=== PATIENT | female | born 2000 | race Caucasian/White ===

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

== ENCOUNTER 2021-02-04 13:45 | Emergency (ER) | payer MEDICAID, SELFPAY ==
[2021-02-04 13:46] VITALS: BP 131/87; PULSE 93; RESP 18; TEMP 36.6; O2SAT 100; BMI 26.4
--- NOTE | 2021-02-04 14:22 | EKG12_ITS ---
Test Reason : CP Blood Pressure : / mmHG Vent. Rate : 095 BPM Atrial Rate : 095 BPM P-R Int : 136 ms QRS Dur : 082 ms QT Int : 354 ms P-R-T Axes : 056 068 015 degrees QTc Int : 444 ms Normal sinus rhythm Nonspecific T wave abnormality Abnormal ECG Confirmed by ASHLEIGH JO, AGUSTÍN ([id number]), editor house organ GERARDO JEAN ([id number]) on 02/07/2021 10:06:16 AM Referred By: SILVIO/LUCAS Confirmed By:AGUSTÍN SOTELO MD
--- NOTE | 2021-02-04 14:35 | EDS_ITS ---
HPI History of Present Illness Chief Complaint: Chest Pain Informant: patient Narrative Narrative: 20-year-old female presents to the emergency room with palpitations and chest pain. She tells me that this morning she started feeling her heart racing she put a pulse oximeter on her finger and she states her heart rate was in the 130s. She feels nauseous and short of breath. She notes of pain in her mid sternum with deep breathing. She notes her heart rate has come down now. She notes that she was recently hospitalized at a psychiatric hospital in [place]. She had new medications prescribed she has subsequently stopped the Lamictal and Abilify. She notes that she smokes 1 to 2 cigarettes a day. She denies vomiting or diarrhea. No recent infections. No recent surgeries. [facility] Medical History (Updated 02/04/21 @ 16:[address] Giovani Hernandez DO) Anxiety Home Medications buspirone 10 mg PO DAILY 07/29/20 [History Last Taken Unknown] cariprazine 3 mg PO DAILY 09/27/20 [History Last Taken Unknown] mirtazapine 30 mg PO QHS 09/27/20 [History Last Taken Unknown] Allergy/AdvReac Type Severity Reaction Status Date / Time No Known Allergies Allergy Verified 02/04/21 13:47 no surgical history Social History (Updated 02/04/21 @ 14:[address] Giovani Hernandez DO) Smoking Status: Current every day smoker tobacco type: e-cigarettes substance use type: does not use ROS ROS ED Constitutional Constitutional ED: Denies chills or weight loss Eyes Eyes: Denies change in vision or diplopia ENT ENT ED: Denies ear pain, rhinorrhea or sore throat Cardiovascular Cardiovascular: Reports chest pain, palpitations and racing heartbeat; Denies orthopnea Respiratory/Chest Respiratory/Chest: Reports dyspnea; Denies cough or orthopnea Gastrointestinal Gastrointestinal: Reports nausea; Denies abdominal pain, diarrhea or vomiting Genitourinary Genitourinary ED: Denies dysuria, hematuria or urinary frequency Musculoskeletal Musculoskeletal: Denies arthralgias or myalgias Integumentary Denies abscess or rash Neurologic Neurologic: Denies headache(s) or weakness Psychiatric Psychiatric: Denies anxiety, depression, suicidal ideation or suicidal thoughts Endocrine Endocrinology: Denies polydipsia, polyphagia or polyuria Allergic/Immunologic Allergic/Immunologic ED: Denies mouth swelling, tongue swelling or urticaria EXAM Physical Exam Const Vital Signs: 02/04/21 13:46 02/04/21 15:01 02/04/21 15:18 Temperature 98 F Temperature Source Temporal Pulse Rate 93 77 Pulse Rate [Standing] Respiratory Rate 18 15 Respiratory Effort Normal Non-Labored Blood Pressure 131/87 H 119/72 Blood Pressure [Standing] Blood Pressure Mean 101 87 Blood Pressure Mean [Standing] Pulse Ox 100 100 Oxygen Delivery Method Room Air Room Air 02/04/21 15:46 Temperature Temperature Source Pulse Rate Pulse Rate [Standing] 88 Respiratory Rate Respiratory Effort Blood Pressure Blood Pressure [Standing] 121/72 H Blood Pressure Mean Blood Pressure Mean [Standing] 88 Pulse Ox Oxygen Delivery Method Positive well nourished and well developed General Appearance ED: well developed HEENT Reports normocephalic, head/scalp atraumatic and moist mucous membranes Eyes PERRL and EOMs intact bilaterally Neck no lymphadenopathy, supple and no JVD Resp normal respiratory effort and clear to auscultation bilaterally Cardio regular rate, regular rhythm and no murmurs GI normal to inspection, nondistended, normoactive bowel sounds and non-tender Palpation: soft Back/Spine no CVA tenderness and normal ROM Extremity normal to inspection General Extremety ED: Negative for edema General Extremity: Negative for edema Neuro oriented x3 and CN's II-XII intact bilaterally Sensorium / Orientation: alert Motor Exam: strength 5/5 throughout Psych mental status grossly normal Mood & Affect: Negative for depressed or tearful Skin no rashes or lesions noted and no wounds Heart Score History: Slightly/Non-Suspicious ECG: Normal Risk Factors: 1 or 2 Risk Factors Troponin: </= Normal Limit Score: 1 MDM MDM MDM Narrative Medical decision making narrative: My interpretation of the chest x-ray is no acute process. Basic blood work including D-dimer negative. Patient's had no events on the monitor. She is not orthostatic. She tells me that every time she stands up her heart rate goes to the 120s and 130s however when she stood up. Her blood pressure was 121/72 and her heart rate of 88. The patient at this point will be discharged home. I suggest she follow-up with primary care doctor she may require Holter monitor if symptoms persist. Lab Data Attestation: I reviewed the patient's lab results. Labs: Laboratory Results - last 24 hr 02/04/21 02/04/21 02/04/21 14:57 14:57 14:57 WBC 8.0 RBC 4.25 Hgb 13.6 Hct 40.4 MCV 95.1 MCH 32.0 MCHC 33.7 RDW Std Deviation 42.5 RDW Coeff of Reggie 12.2 Plt Count 238 MPV 10.8 Immature Gran % (Auto) 0.200 Neut % (Auto) 69.3 Lymph % (Auto) 21.5 [place] % (Auto) 8.0 Eos % (Auto) 0.6 Baso % (Auto) 0.4 Absolute Neuts (auto) 5.6 Absolute Lymphs (auto) 1.73 Nucleated RBC % 0 D-Dimer Quant (PE/DVT) 0.33 Sodium 140 Potassium 3.6 Chloride 110 H Carbon Dioxide 24.0 Anion Gap 6 BUN 7 Creatinine 0.67 Estim Creat Clear Calc 101.91 Est GFR (MDRD) Af Amer 146 Est GFR (MDRD) Non-Af 120 BUN/Creatinine Ratio 10.4 Glucose 88 Calcium 8.9 Troponin I High Sens < 3.0 L Radiography Diagnostic Testing: Radiology Impression Chest X-Ray 02/04/21 15:30 IMPRESSION: Normal x-ray examination of the chest. Electronically Signed: Sj Holland MD at 15:47 EDT Tel , Service support , EKG Initial EKG: Attestation: I personally reviewed and interpreted this EKG as follows: Comments: EKG demonstrates a normal sinus rhythm with ventricular rate of 95. No concerning features of ACS or ectopy noted. Prior: Changed Discharge Plan Triage Chief Complaint: Chest Pain ED Provider: Giovani Hernandez Dx/Rx/DC Orders Clinical Impression: Heart palpitations, Chest pain Instructions: ED Palpitations Prescriptions: No Action buspirone 5 MG tablet 10 mg PO DAILY RF: 0 mirtazapine 30 MG tablet 30 mg PO QHS RF: 0 cariprazine 3 MG capsule 3 mg PO DAILY RF: 0 Primary Care Provider: Wu Herrera Referrals: Wu Herrera MD [Primary Care Provider] - As soon as possible Disposition Disposition: Home, Self Care
[2021-02-04 15:01] VITALS: BP 119/72; PULSE 77; RESP 15; O2SAT 100
[2021-02-04 15:08] LABS: Absolute Lymphocyte Count 1.73 X10^3/uL (0.83-4.51); Absolute Neutrophil Count 5.6 X10^3/uL (2.0-7.7); Basophil# 0.03 X10^3/uL; Basophil% 0.4 % (0-1); Eosinophil# 0.05 X10^3/uL; Eosinophils% 0.6 % (0-5); Hematocrit 40.4 % (37-47); Hemoglobin 13.6 g/dL (12.0-15.0); Lymphocyte # 1.73 X10^3/ul (0.83-4.51); Lymphocyte % 21.5 % (19-41); Mean Corp Hgb Conc 33.7 g/dL (32-36); Mean Corpuscular Volume 95.1 fL (81-99); Mean Platelet Vol. 10.8 fl (6.2-12.0); Monocyte# 0.64 X10^3/uL; NRBC Flagged by Analyzer 0 % (0-5); Neutrophil # 5.56 X10^3/uL (2.7-7.7); Neutrophil % 69.3 % (47-70); Platelet Count 238 K/mm3 (150-450); RBC Distribution Width CV 12.2 % (11.6-14.6); RBC Distribution Width SD 42.5 fl (35.1-43.9); Red Blood Count 4.25 M/mm3 (4.2-5.4)
[2021-02-04 15:18] LABS: D-Dimer Quantitative (DVT/PE) 0.33 FEU/ug/m (0.27-0.49)
--- NOTE | 2021-02-04 15:30 | RAD_ITS ---
STUDY: X-RAY CHEST REASON FOR EXAM: Female, 20 years old. chest pain TECHNIQUE: Single AP portable view of the chest. COMPARISON: 09/29/2020 FINDINGS: The lungs are clear and expanded. There is no demonstrated pleural abnormality. Normal size heart. Normal mediastinum and wesley. Normal visualized pulmonary arteries. Normal visualized aortic arch and descending thoracic aorta. Normal visualized thoracic spine. Normal visualized ribs, clavicles, and shoulders. There is no demonstrated abnormality of the visualized soft tissue structures of the upper abdomen. RAD/Chest 1 View (Portable) IMPRESSION: Normal x-ray examination of the chest. Electronically Signed: Sj Holland MD at 15:47 EDT Tel , Service support ,
[2021-02-04 15:31] LABS: Anion Gap 6 (5-15); BUN 7 mg/dL (7-18); BUN/Creat Ratio 10.4 RATIO (10-20); Calcium,Total 8.9 mg/dL (8.5-10.1); Chloride 110 mmol/L (98-107); Creatinine, Serum 0.67 mg/dL (0.55-1.02); EST Glomerular Filtration Rate 120 mL/min (>60); Est Glom Filt Rate - Afr Amer 146 mL/min (>60); Estimated Creatinine Clearance 101.91 ml/min; Glucose 88 mg/dL (74-106); Potassium 3.6 mmol/L (3.5-5.1); Sodium Level 140 mmol/L (136-145); Troponin-I HS < 3.0 pg/mL (3.0-53.7)
[2021-02-04 15:46] VITALS: BP 121/72; PULSE 88
[2021-02-04 16:28] VITALS: BP 121/72; PULSE 83; RESP 17; O2SAT 99
== END 2021-02-04 16:29 | disposition home or self-care (01) ==
PROVIDERS: Emergency Provider Emergency Medicine; PCP Family Medicine
DX: R00.2 Palpitations (principal); R07.9 Chest pain, unspecified; R11.0 Nausea; R06.02 Shortness of breath; F17.210 Nicotine dependence, cigarettes, uncomplicated; F41.9 Anxiety disorder, unspecified; Z79.899 Other long term (current) drug therapy
CPT/HCPCS: 71045; 80048; 84484; 85025; 85379; 93005; 99285; A4216

== ENCOUNTER 2021-04-04 15:27 | Emergency (ER) | payer MEDICAID, SELFPAY ==
[2021-04-04 15:28] VITALS: BP 115/68; PULSE 89; RESP 14; TEMP 36.4; O2SAT 98; BMI 26.8
--- NOTE | 2021-04-04 16:11 | EKG12_ITS ---
Test Reason : PALP Blood Pressure : / mmHG Vent. Rate : 082 BPM Atrial Rate : 082 BPM P-R Int : 132 ms QRS Dur : 082 ms QT Int : 384 ms P-R-T Axes : 040 056 025 degrees QTc Int : 448 ms Normal sinus rhythm with sinus arrhythmia Normal ECG When compared with ECG of 04-FEB-2021 13:52, No significant change was found Confirmed by JEN JO, JAYASHREE ([id number]), editor house organ GERARDO JEAN ([id number]) on 04/11/2021 8:33:31 AM Referred By: GUNNER Confirmed By:JAYASHREE LI MD
--- NOTE | 2021-04-04 17:11 | EX.ED.DYSGE1 ---
HPI History of Present Illness Chief Complaint: Palpitations Narrative Narrative: Patient is a 20-year-old female who states that she was sleeping today when she awoke and felt her heart was racing. She states she went and saw the nurse and was told her heart rate was approximately 130. The patient states she has been having bouts of vomiting but otherwise denies any excessive stimulant use or illicit drug use or history of cardiac dysrhythmia. She states that with the elevated heart rate she was concerned that her electrolytes were abnormal and therefore comes in for evaluation [facility] Medical History Anxiety Home Medications fluoxetine 20 mg DAILY 04/04/21 [History Last Taken Unknown] hydroxyzine HCl 25 mg PRN PRN 04/04/21 [History Last Taken Unknown] Allergy/AdvReac Type Severity Reaction Status Date / Time No Known Allergies Allergy Verified 04/04/21 15:28 Social History Smoking Status: Current every day smoker tobacco type: cigarettes and e-cigarettes substance use type: does not use ROS ROS ED Constitutional Constitutional ED: Denies chills or fever(s) ENT ENT ED: Denies sore throat Cardiovascular Cardiovascular: Reports palpitations and racing heartbeat; Denies chest pain Respiratory/Chest Respiratory/Chest: Denies cough or dyspnea Gastrointestinal Gastrointestinal: Reports nausea and vomiting; Denies abdominal pain or diarrhea Genitourinary Genitourinary ED: Denies dysuria Musculoskeletal Musculoskeletal: Denies myalgias Integumentary Denies rash Neurologic Neurologic: Denies headache(s) Hematologic/Lymphatic Hematologic/Lymphatic: Denies easy bleeding or easy bruising EXAM Physical Exam Const Vital Signs: 04/04/21 15:28 04/04/21 16:07 04/04/21 18:06 Temperature 97.5 F L Temperature Source Temporal Pulse Rate 89 63 Respiratory Rate 14 14 Respiratory Effort Normal Non-Labored Blood Pressure 115/68 101/64 Blood Pressure Mean 83 76 Pulse Ox 98 97 Oxygen Delivery Method Room Air Positive well nourished and well developed General Appearance ED: well developed HEENT Reports moist mucous membranes Eyes PERRL and EOMs intact bilaterally Neck supple Neck Narrative: Thyroid is without nodule or goiter Chest Wall palpation of chest normal Resp normal respiratory effort and clear to auscultation bilaterally Cardio regular rhythm Rate: other Other Details: Tachycardic rate with regular rhythm radial pulses are plus 2 out of 4 bilaterally GI normal to inspection, nondistended, normoactive bowel sounds, non-tender and non-distended Auscultation: normoactive bowel sounds Palpation: soft Extremity normal to inspection Extremity Narrative: No asymmetric edema no pitting edema negative Homans' sign bilaterally Neuro oriented x3 and CN's II-XII intact bilaterally Sensorium / Orientation: alert Motor Exam: strength 5/5 throughout Psych mental status grossly normal Skin no rashes or lesions noted MDM MDM MDM Narrative Medical decision making narrative: Patient presented to the ER in no acute distress. Her heart rate had spontaneous return to a normal value. There is no ectopy noted on evaluation. However with report of tachycardia I did elect to place her on a bridges and buildings supervisor and perform a basic work-up. EKG was sinus rhythm labs revealed no clinically significant findings and the patient had no abnormal heart rhythm while on the bridges and buildings supervisor. Therefore at this time with spontaneous resolution of symptoms and overall negative work-up she is safe for discharge Lab Data Attestation: I reviewed the patient's lab results. Labs: Laboratory Results - last 24 hr 04/04/21 04/04/21 04/04/21 17:28 17:28 17:35 WBC 7.9 RBC 4.86 Hgb 15.3 H Hct 46.5 MCV 95.7 MCH 31.5 MCHC 32.9 RDW Std Deviation 42.8 RDW Coeff of Reggie 12.2 Plt Count 260 MPV 9.9 Immature Gran % (Auto) 0.300 Neut % (Auto) 63.4 Lymph % (Auto) 25.4 [place] % (Auto) 9.4 Eos % (Auto) 1.1 Baso % (Auto) 0.4 Absolute Neuts (auto) 5.0 Absolute Lymphs (auto) 2.00 Nucleated RBC % 0 Sodium 138 Potassium 3.6 Chloride 107 Carbon Dioxide 27.0 Anion Gap 4 L BUN 8 Creatinine 0.66 Estim Creat Clear Calc 103.46 Est GFR (MDRD) Af Amer 147 Est GFR (MDRD) Non-Af 122 BUN/Creatinine Ratio 12.1 Glucose 78 Calcium 9.6 Magnesium 2.5 TSH 1.14 Urine Test Negative Discharge Plan Triage Chief Complaint: Palpitations ED Provider: Gustavo Rosado Dx/Rx/DC Orders Clinical Impression: Heart palpitations Instructions: ED Palpitations Prescriptions: No Action hydroxyzine HCl 25 mg tablet 25 mg PRN PRN (Reason: Anxiety) RF: 0 fluoxetine 20 mg capsule 20 mg DAILY RF: 0 Primary Care Provider: Wu Herrera Referrals: Wu Herrera MD [Primary Care Provider] - Disposition Disposition: Home, Self Care
[2021-04-04 17:40] LABS: Basophil# 0.03 X10^3/uL; Basophil% 0.4 % (0-1); Eosinophil# 0.09 X10^3/uL; Eosinophils% 1.1 % (0-5); Hematocrit 46.5 % (37-47); Hemoglobin 15.3 g/dL (12.0-15.0); Lymphocyte % 25.4 % (19-41); Mean Corp Hgb Conc 32.9 g/dL (32-36); Mean Corpuscular Hgb 31.5 pg (27.0-32.0); Mean Corpuscular Volume 95.7 fL (81-99); Mean Platelet Vol. 9.9 fl (6.2-12.0); Monocyte# 0.74 X10^3/uL; Monocyte% 9.4 % (0-10); NRBC Flagged by Analyzer 0 % (0-5); Neutrophil # 4.98 X10^3/uL (2.7-7.7); Neutrophil % 63.4 % (47-70); Platelet Count 260 K/mm3 (150-450); RBC Distribution Width CV 12.2 % (11.6-14.6); RBC Distribution Width SD 42.8 fl (35.1-43.9); Red Blood Count 4.86 M/mm3 (4.2-5.4); White Blood Count 7.9 K/mm3 (4.4-11.0)
[2021-04-04] MEDS: 0.9% Normal Saline 1,000 ML 999 ML IV (17:42)
[2021-04-04 17:48] LABS: Internal QC Validated? YES +Cl - CLEAR BKGD; Pregnancy, Urine Negative Negative
[2021-04-04 18:06] VITALS: BP 101/64; PULSE 63; RESP 14; O2SAT 97
[2021-04-04 18:10] LABS: Anion Gap 4 (5-15); BUN 8 mg/dL (7-18); BUN/Creat Ratio 12.1 RATIO (10-20); Calcium,Total 9.6 mg/dL (8.5-10.1); Chloride 107 mmol/L (98-107); Creatinine, Serum 0.66 mg/dL (0.55-1.02); EST Glomerular Filtration Rate 122 mL/min (>60); Est Glom Filt Rate - Afr Amer 147 mL/min (>60); Estimated Creatinine Clearance 103.46 ml/min; Glucose 78 mg/dL (74-106); Magnesium 2.5 mg/dL (1.6-2.6); Potassium 3.6 mmol/L (3.5-5.1); Sodium Level 138 mmol/L (136-145); Thyroid Stim Hormone (TSH) 1.14 uIU/mL (0.358-3.74)
[2021-04-04 18:40] VITALS: BP 98/57; PULSE 71; RESP 14; O2SAT 99
== END 2021-04-04 18:48 | disposition home or self-care (01) ==
PROVIDERS: Emergency Provider Emergency Medicine; PCP Family Medicine
DX: R00.2 Palpitations (principal); F17.210 Nicotine dependence, cigarettes, uncomplicated; Z79.899 Other long term (current) drug therapy
CPT/HCPCS: 80048; 81025; 83735; 84443; 85025; 93005; 99283; A4216

== ENCOUNTER 2021-04-19 02:38 | Emergency (ER) | payer MEDICAID, SELFPAY ==
[2021-04-19] VITALS (8 sets, daily range): BP systolic 122–139; BP diastolic 66–86; PULSE 72–90; RESP 14–18; TEMP 36.1; O2SAT 98–99; BMI 26.6
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
[2021-04-19 03:24] LABS: Absolute Lymphocyte Count 1.69 X10^3/uL (0.83-4.51); Absolute Neutrophil Count 5.5 X10^3/uL (2.0-7.7); Basophil# 0.04 X10^3/uL; Basophil% 0.5 % (0-1); Eosinophil# 0.05 X10^3/uL; Eosinophils% 0.7 % (0-5); Hematocrit 42.1 % (37-47); Lymphocyte # 1.69 X10^3/ul (0.83-4.51); Lymphocyte % 22.1 % (19-41); Mean Corp Hgb Conc 33.3 g/dL (32-36); Mean Corpuscular Hgb 31.7 pg (27.0-32.0); Mean Corpuscular Volume 95.5 fL (81-99); Mean Platelet Vol. 10.1 fl (6.2-12.0); Monocyte# 0.35 X10^3/uL; Monocyte% 4.6 % (0-10); NRBC Flagged by Analyzer 0 % (0-5); Neutrophil # 5.45 X10^3/uL (2.7-7.7); Neutrophil % 71.4 % (47-70); Platelet Count 272 K/mm3 (150-450); RBC Distribution Width CV 12.6 % (11.6-14.6); RBC Distribution Width SD 44.3 fl (35.1-43.9); Red Blood Count 4.41 M/mm3 (4.2-5.4); White Blood Count 7.6 K/mm3 (4.4-11.0)
[2021-04-19 03:34] LABS: Salicylate 2.1 mg/dL (2.8-20.0)
[2021-04-19 03:36] LABS: Anion Gap 9 (5-15); BUN 8 mg/dL (7-18); BUN/Creat Ratio 11.7 RATIO (10-20); Calcium,Total 8.3 mg/dL (8.5-10.1); Chloride 112 mmol/L (98-107); Creatinine, Serum 0.68 mg/dL (0.55-1.02); EST Glomerular Filtration Rate 118 mL/min (>60); Est Glom Filt Rate - Afr Amer 142 mL/min (>60); Estimated Creatinine Clearance 119.74 ml/min; Glucose 115 mg/dL (74-106); Potassium 3.8 mmol/L (3.5-5.1); Sodium Level 145 mmol/L (136-145)
[2021-04-19 03:43] LABS: Internal QC Validated? YES +Cl - CLEAR BKGD; Pregnancy, Serum, hCG Quali. NEGATIVE Negative
[2021-04-19 03:50] LABS: Amphetamine Urine VISTA NEGATIVE (<1000 ng/mL); Barbiturate Urine VISTA NEGATIVE (< 200 ng/mL); Benzodiazepine Urine VISTA NEGATIVE (< 200 ng/mL); Cocaine Urine VISTA NEGATIVE (< 300 ng/mL); Ecstacy Urine VISTA NEGATIVE (< 500 ng/mL); Methadone Urine VISTA NEGATIVE (< 300 ng/mL); PCP Urine VISTA NEGATIVE (< 25 ng/mL); THC Urine VISTA NEGATIVE (< 50 ng/mL); Vista UDS pH Range 5
[2021-04-19] MEDS: Ondansetron ODT 4 MG Tablet PO (12:34)
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
== END 2021-04-19 13:14 | disposition home or self-care (01) ==
PROVIDERS: Emergency Medicine; Emergency Provider Emergency Medicine; PCP Family Medicine
DX: R45.851 Suicidal ideations (principal); F10.129 Alcohol abuse with intoxication, unspecified; F17.210 Nicotine dependence, cigarettes, uncomplicated; F41.9 Anxiety disorder, unspecified; Z79.899 Other long term (current) drug therapy
CPT/HCPCS: 36415; 80048; 80307; 80329; 82077; 84703; 85025; 87426; 99285; G0480

== ENCOUNTER 2021-04-21 01:28 | Emergency (ER) | payer MEDICAID, SELFPAY ==
[2021-04-21 01:29] VITALS: BP 123/76; PULSE 87; RESP 16; TEMP 36.6; O2SAT 97; BMI 27.3
[2021-04-21] MEDS: Ibuprofen 600 MG Tablet PO (02:43)
[2021-04-21 02:49] LABS: Red Blood Cells-Urine 0 SEEN /hpf (0-5)
[2021-04-21 03:09] LABS: Color, Urine Yellow (Yellow); Glucose, Dipstick Normal (Normal); Ketone-Dipstick Negative (Negative); Leukocyte Esterase-Dipstick 100 /ul (Negative); Nitrite-Dipstick Negative (Negative); Occult Blood-Urine Negative /ul (Negative); Protein-Dipstick Negative (Negative); Specific Gravity, Urine 1.015 (1.002-1.030); Urine Bilirubin Dipstick Negative (Negative); Urine Clarity Clear (Clear); Urine Urobilinogen Normal (Normal)
[2021-04-21 03:16] LABS: Amorphous Sediment 1+; Bacteria 2+ /hpf (None Seen); Internal QC Validated? YES +Cl - CLEAR BKGD; Mucous, Urine RARE /hpf (<or=2+); Pregnancy, Urine Negative Negative; Squamous Epithelial Cells - UA 5-10 SEEN /hpf (5-10); White Blood Cells 5-10 SEEN /hpf (0-5)
--- NOTE | 2021-04-21 04:35 | EDS_ITS ---
HPI History of Present Illness Chief Complaint: Abd Pain Informant: patient Narrative Narrative: Is a 20-year-old female with history of depression and ovarian cyst presenting with left-sided low back pain. Patient states she been having worsening pain in her left lower back for the past few days. It radiates down to her buttocks. She had some associated nausea and one episode of vomiting today. No diarrhea. No fever or chills. No urinary symptoms. No abnormal vaginal discharge or bleeding. Notes she has not had a menstrual cycle for the past 5 months and this is abnormal. She does have Nexplanon so she does not think she is . She last took ibuprofen for her pain yesterday. No other complaints at this time. PFSH PFSH Medical History Anxiety Drug use Home Medications fluoxetine 20 mg PO DAILY 04/04/21 [History Last Taken Unknown] cyclobenzaprine 10 mg PO TID PRN #14 tab 04/21/21 [Rx Last Taken Unknown] ibuprofen 600 mg PO Q6H PRN PRN #20 tab 04/21/21 [Rx Last Taken Unknown] Allergy/AdvReac Type Severity Reaction Status Date / Time No Known Allergies Allergy Verified 04/21/21 01:32 Social History Smoking Status: Current every day smoker tobacco type: cigarettes and e- cigarettes substance use type: does not use ROS ROS ED Constitutional Constitutional ED: Denies chills or fever(s) ENT ENT ED: Denies ear pain or rhinorrhea Cardiovascular Cardiovascular: Denies chest pain Respiratory/Chest Respiratory/Chest: Denies dyspnea Gastrointestinal Gastrointestinal: Reports abdominal pain, nausea and vomiting; Denies constipation or diarrhea Genitourinary Genitourinary ED: Denies dysuria, hematuria or urinary frequency Musculoskeletal Musculoskeletal: Reports back pain; Denies arthralgias or myalgias Integumentary Denies rash Neurologic Neurologic: Denies headache(s) or weakness EXAM Physical Exam Const Vital Signs: 04/21/21 01:29 Temperature 98 F Temperature Source Oral Pulse Rate 87 Respiratory Rate 16 Blood Pressure 123/76 H Blood Pressure Mean 91 Pulse Ox 97 Oxygen Delivery Method Room Air Positive well nourished and well developed General Appearance ED: well developed HEENT Reports moist mucous membranes Eyes PERRL and EOMs intact bilaterally Neck no lymphadenopathy and supple Chest Wall inspection of chest normal Resp normal respiratory effort and clear to auscultation bilaterally Cardio regular rate, regular rhythm and no murmurs GI normal to inspection, nondistended, normoactive bowel sounds Palpation: tender LLQ, RLQ and suprapubic Back/Spine no CVA tenderness Thoracic Spine / Upper Back: paraspinal muscle tenderness left; Negative for thoracic spinal tenderness Lumbar Spine / Lower Back: Negative for lumbar spinal tenderness Extremity normal to inspection Extremity Narrative: Patient reproduced with straight leg raise of the left General Extremety ED: Negative for edema or tenderness General Extremity: Negative for edema Neuro oriented x3, CN's II-XII intact bilaterally and no sensory deficits noted Sensorium / Orientation: alert Motor Exam: strength 5/5 throughout; Negative for general weakness Psych mental status grossly normal Mood & Affect: anxious Skin no rashes or lesions noted and no wounds MDM MDM MDM Narrative Medical decision making narrative: Patient evaluated for couple days of left lower back pain and lower abdominal pain rating down her leg. Presentation is most consistent with muscle skeletal pain to my exam. Which does have a history of ovarian cyst her physical exam and presentation is not consistent with an acute ovarian torsion. Her is negative I do not suspect ectopic p regnancy. I do not think emergent ultrasound is indicated at this time. She has normal vital signs and is overall well-appearing. She is given dose of Motrin does have improvement of her symptoms. Straight leg test reproduces her symptoms. She does not have any midline tenderness. No red flag symptoms for cauda equina syndrome. Urinalysis is contaminated does show 5-10 white blood cells and 2+ bacteria. Will obtain urine culture but not treat at this time. Should be treated with Flexeril and NSAIDs. Will follow-up with her DROP WIRE OPERATOR as well as her PCP. Is counseled on return precautions. Patient discharged home in improved and stable condition. Lab Data Attestation: I reviewed the patient's lab results. Labs: Laboratory Results - last 24 hr 04/21/21 02:45 Urine Color Yellow Urine Clarity Clear Urine pH 7.0 Ur Specific [place] 1.015 Urine Protein Negative Urine Glucose (UA) Normal Urine Ketones Negative Urine Occult Blood Negative Urine Nitrite Negative Urine Bilirubin Negative Urine Urobilinogen Normal Ur Leukocyte Esterase 100 H Urine RBC 0 SEEN Urine WBC 5-10 SEEN Ur Squamous Epith Cells 5-10 SEEN Amorphous Sediment 1+ Urine Bacteria 2+ Urine Mucus RARE Urine Test Negative Discharge Plan Triage Chief Complaint: Abd Pain ED Provider: Kamila Watkins Dx/Rx/DC Orders Clinical Impression: Low back pain, Lower abdominal pain Instructions: ED Back Pain (Acute or Chronic), ED Pelvic Pain, Unknown Cause Prescriptions: New cyclobenzaprine 10 mg tablet 10 mg PO TID PRN (Reason: muscle spasm) Qty: 14 RF: 0 ibuprofen 600 mg tablet 600 mg PO Q6H PRN PRN (Reason: Pain Score 1-10/10) Qty: 20 RF: 0 No Action fluoxetine 20 mg capsule 20 mg PO DAILY RF: 0 Primary Care Provider: Wu Herrera Referrals: Wu Herrera MD [Primary Care Provider] - Activity Restrictions/Additional Instructions: Please follow-up with your DROP WIRE OPERATOR for further evaluation of your irregular periods and ultrasound to look for ovarian cyst. I suspect your pain is from muscles in your back. Disposition Disposition: Home, Self Care Discharge Date/Time: 04/21/21 05:13
--- NOTE | 2021-04-22 10:38 | CM.ED ---
KATERINE Note SW called patient to follow up on safety plan and to advise that [facility] Behavioral Health will follow up her today. KATERINE requested call back from patient today and provided her with the phone number for this advertising copywriter. SW remains available. Plan: KATERINE requested call back from patient. SW will attempt to reach out to patient later in the day. Beatriz COSME
== END 2021-04-21 05:13 | disposition home or self-care (01) ==
PROVIDERS: Emergency Provider Emergency Medicine; PCP Family Medicine
DX: M54.50 Low back pain, unspecified (principal); R10.30 Lower abdominal pain, unspecified; F17.210 Nicotine dependence, cigarettes, uncomplicated; F32.A Depression, unspecified; F41.9 Anxiety disorder, unspecified; Z79.899 Other long term (current) drug therapy
CPT/HCPCS: 81001; 81025; 87086; 87088; 99283

== ENCOUNTER 2021-05-13 09:31 | Outpatient (RCR) | payer MEDICAID, SELFPAY ==
--- NOTE | 2021-05-13 09:00 | BH.SGPN.GN ---
Behaviors/Verbalizations/Mental Status: []Eye contact is good. Motor activity is appropriate. Appearance is casual. Speech is appropriate. Mood is anxious. Affect is congruent. Thoughts are linear and logical. No evidence of psychosis. Reviewed daily symptom tracker sheet with no reports of suicidal ideations, plan, or intent. Client Response/Progress/Benefit: []Client was engaged and attentive throughout group session, providing insight to others. Client appeared anxious, as it was her first day of IOP treatment. Client discussed wanting to maintain sobriety from alcohol, and discussed that her weekend ?didn?t go as planned?. Client stated that she has accepted that she has to come to IOP treatment per court order, and is open to learning. Appeared to benefit from supportive group environment. Will continue IOP treatment to maintain safety and increase knowledge of healthy coping skills to increase functioning. Narrative Note: []
--- NOTE | 2021-05-13 10:10 | BH.SGPN.GN ---
Behaviors/Verbalizations/Mental Status: []Client alert and oriented, casually dressed and groomed. Eye contact fair. Motor activity appropriate. Speech within normal limits. Affect constricted, mood depressed, anxious. Thoughts linear, logical, no signs of hallucinations or delusions. Client Response/Progress/Benefit: [] Client engaged in session AEB taking notes, contributing to discussion, and providing examples throughout. Client assisted group with identifying benefits of setting boundaries such as improved relationships, reduced anxiety, increased sense of self-respect, and feeling validated. Listened during psychoeducation on different types of boundaries. Client stated struggles with setting emotional and sexual boundaries with others. Client seemed to benefit from increased awareness of how boundaries impact mental health and the different types of boundaries there are. Will continue IOP tx maintain sobriety, improve emotion regulation, increase healthy coping skills and prevent decompensation.
--- NOTE | 2021-05-13 11:10 | BH.SGPN.GN ---
Behaviors/Verbalizations/Mental Status: []Client alert and oriented, casually dressed and groomed. Eye contact fair. Motor activity appropriate. Speech within normal limits. Affect constricted, mood depressed and anxious. Thoughts linear, logical, no signs of hallucinations or delusions. Client Response/Progress/Benefit: []Client responded well to session AEB listening attentively to peers and providing input. Client engaged in the boundary self-assessment and was attentive during psychoeducation on the different boundary styles. Client stated on the self-assessment she strongly connected with feeling responsible to take care of her mom and also struggles with saying no. Pt reported this results in her helping others to my own demise. Pt stated I have given up on myself mentally and physically. Will continue IOP tx to improve ability to stressors more effectively, increase self-care and prevent decompensation.
--- NOTE | 2021-05-15 09:01 | BH.SGPN.GN ---
Behaviors/Verbalizations/Mental Status: []Eye contact is fair. Motor activity is appropriate. Appearance is casual. Speech is Appropriate. Mood is anxious and depressed. Affect is constricted. Thoughts are linear and logical. No evidence of psychosis. Reviewed daily check in sheet and no reports of suicidal ideations or intent. Client Response/Progress/Benefit: []Pt responded well to session AEB pt sharing thoughts and feelings and listened attentively to others. Pt stated mental health positive as coming to IOP today. Pt reported she had a medical appointment yesterday that didn't go well. Pt elaborated that the doctor told her she needs to have an ultrasound in two weeks because could be something wrong, potentially ovarian cancer. Pt stated feeling anxious about what could be wrong with her. Pt reported mental health positive as trying to journal last night and talk with boyfriend instead of going out drinking. Pt to continue IOP to increase healthy coping skills, challenge distorted thoughts and prevent decompensation. Narrative Note: []
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
[2021-05-15 12:09] VITALS: BP 115/84; PULSE 69
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
--- NOTE | 2021-05-15 12:59 | BH.DR.ITP ---
Initial Treatment Plan Patient Information Visit Information: ADMISSION DATE: EXPECTED LOS: 4-6 weeks Problems/Symptoms Problem #1:: Mood instability Symptom:: Depression, sadness, hopelessness, worthlessness, low energy, guilt, decreased concentration, anhedonia, history of suicidal ideation, history of impulsivity and reckless behavior Problem #2:: Anxiety Symptom:: Worry, rumination, flashbacks, reexperiencing, avoidance
--- NOTE | 2021-05-15 15:07 | BH.MDN_ITS ---
Multi-Disciplinary Note - Note 30-min Individual Time Started:: 12:15 Date: 05/15/21 Purpose of session/treatment goals addressed:: Pt requested to speak with therapist due to stressors. Eye Contact:: Good Motor Activity:: Appropriate Appearance:: Casual Speech:: Appropriate Mood:: Depressed Affect:: Congruent Thoughts:: Linear, Logical, No evidence of hallucinations/delusions noted Staff Interventions:: motivational interviewing, psychoeducation on: - relapse prevention skills Client Response:: Pt reports increase anxiety and distress related to the possibility that she may have ovarian cancer. Shared the her OBGYN was concerned about her recent blood work and hormones and order an ultrasound. Pt reports that she had a cyst on her ovary which recently burst. Processed this briefly and then she began to discuss other stressors which included her mother moving in with her and a recent alcohol relapse on 05/09/21. Therapist focused mostly on the relapse as her alcohol use has significant impact on her mood, decision-making, and relationship. Trigger to relapse was issues with my mom She is vague however she was encouraged to develop a list of consequences of drinking and motivators to remain sober which we started. She agreed to review this list when she had an urge or craving. Risks/Concerns:: no risks or concerns noted. Progress Toward Goals/Plan:: No progress noted. Pt reported several acute psychosocial stressors. Often blames others for her poor decisions and emotions. Allowed pt to vent and process recent stressors. Began to work on relapse prev ention skills. She declined to participate in a substance abuse IOP prior to beginning in this IOP however this may have to be reassessed if she continues to use alcohol. Will continue in IOP to maintain safety, prevent decompensation, and stabilize mood. Time Stopped:: 12:35
--- NOTE | 2021-05-17 09:00 | BH.SGPN.GN ---
Behaviors/Verbalizations/Mental Status: []Eye contact is good. Motor activity is appropriate. Appearance is casual. Speech is appropriate. Mood is stressed. Affect is congruent. Thoughts are linear and logical. No evidence of psychosis. Reviewed daily symptom tracker sheet with reports of 1/5 suicidal ideation which is consistent with client?s baseline, denied plan or intent. Client Response/Progress/Benefit: []Client was engaged throughout group session. Client reported her emotion of the day as ?stressed and motivated?. Client expressed feeling stressed by several upcoming doctors appointments. Client appeared to benefit from supportive group environment. Client discussed having a conversation with her mom and her boyfriend about her mental health as both a positive and a stressor. Client reported her mother is unsupportive of her mental health. Group normalized this and discussed how they have coped with similar situations. Progressed noted AEB client report of journaling her feelings as a coping skill. Client indicated per daily symptom tracker that her ability to function has been generally worse, which may be due to current stressors. Will continue IOP treatment to increase mood stability and application of healthy coping skills to improve functioning. Narrative Note: []
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
--- NOTE | 2021-05-17 11:20 | BH.MTP ---
[facility] - Patient Information Program Physician:: Dr. Kristal Park Primary Therapist:: Janiya WASHBURN - Psychiatric Diagnoses Psychiatric Diagnoses:: Bipolar 1 disorder, most recent episode depressed, severe without psychosis F 31.4; Anxiety disorder, NOS; Alcohol use disorder; History of cocaine use disorder; Strong cluster B traits Diagnosis Code(s):: F 31.4 - Estimated LOS Estimated LOS (in weeks):: 6 Problem/Goal #1 - Problem/Goal #1 Stated Goal:: Client will improve mood stability, reduce depressive symptoms, and reduce suicidal ideations. Description of Barriers: Client reports primary support issues, history of impulsivity, history of suicide attempts, and self-report of unprocessed trauma. Client also struggles with finding and maintaining employment and housing issues. Functional Impact: Client is a 20-year-old female with a history of bipolar disorder, alcohol abuse disorder, eating disorder, and cluster B traits. Client was referred to [facility] tx after presenting to [facility] ER due to intoxication and suicide attempt. At admission to [facility] client endorses poor sleep, erratic energy, low motivation, hopelessness, worthlessness, poor memory, poor focus, anhedonia, and passive SI. Client denies alcohol use at admission, but does admit to a recent relapse. Client went through detox in March 2021 and prior to detox, client was drinking 1/5 daily. Client's symptoms and substance use are significantly impacting her ability to function and relationships. Goal Relevant Strengths/Supports: Established with outpatient counseling through [facility]. Currently sober and reports motivation to stay sober. - Objectives Objective #1 Stated Objective: Client will learn and utilize 2-3 healthy coping strategies to better manage depressive and mood symptoms as shown by reduced DSM-5 scores. Interventions: Through group and individual sessions, therapist will help client identify triggers and warning signs of depression and emotional dysregulation including emotional, physical, and behavioral changes. Therapist will teach client various coping skills to manage her symptoms and give client tangible resources to use to regulate emotions. Therapist will use cognitive restructuring techniques and help client gain awareness of negative thoughts that reinforce depressive cycles. Therapist will help client incorporate behavioral activation, opposite action, motivational interviewing, and assist client in setting SMART goals. Discharge Criteria: Client will have met this goal when she can report learning and using at least 2 coping skills to manage depressive symptoms and show a reduction in DSM-5 symptoms. Target Date: 06/24/21 Review Date: 06/10/21 Status: open Objective #2 Stated Objective: Client will identify 2 triggers and 2 coping skills to use when client experiences mood dysregulation and has increased urges to engage in unhealthy coping skills such as alcohol use. Interventions: Through individual and group counseling client will be provided with education on healthy coping skills to manage mood symptoms, impulse, and crisis behaviors. Therapist will provide information on healthy alternatives to emotion release. Individual therapist will teach client DBT techniques to increase emotional regulation and mindfulness. Therapist will also engage client to use self-compassion while working to change behaviors. Discharge Criteria: Client will have accomplished this goal when client can identify at least 2 triggers and 2 coping skills to increase mood stability and reduce unhealthy action urges. Target Date: 06/24/21 Review Date: 06/10/21 Status: open Problem/Goal #2 - Problem/Goal #2 Stated Goal:: Will reduce rumination, avoidance, and anxiety through increasing emotional regulation skills. Description of Barriers: Client reports primary support issues, history of impulsivity, history of suicide attempts, and self-report of unprocessed trauma. Client also struggles with finding and maintaining employment and housing issues. Functional Impact: Client is a 20-year-old female with a history of bipolar disorder, alcohol abuse disorder, eating disorder, and cluster B traits. Client was referred to [facility] tx after presenting to [facility] ER due to intoxication and suicide attempt. At admission to [facility] client endorses poor sleep, erratic energy, low motivation, hopelessness, worthlessness, poor memory, poor focus, anhedonia, and passive SI. Client denies alcohol use at admission, but does admit to a recent relapse. Client went through detox in March 2021 and prior to detox, client was drinking 1/5 daily. Client's symptoms and substance use are significantly impacting her ability to function and relationships. Goal Relevant Strengths/Supports: Established with outpatient counseling through [facility]. Currently sober and reports motivation to stay sober. - Objectives Objective #1 Stated Objective: Client will identify 2-3 anxiety triggers and 2 coping skills to use when feeling anxious to manage anxiety as shown by reduction of her DSM-5 scores for anxiety. Interventions: Therapist will provide education on anxiety, avoidance behaviors, and maintenance cycles. Therapist will help client explore personal symptoms and warning signs of anxiety. Therapist will teach client coping skills to improve emotional regulation, mindfulness, and distress tolerance to help client cope with anxiety in the moment. Discharge Criteria: Client will have accomplished this goal when she can identify at least 2 triggers and report using 2 coping skills to manage anxiety. Additionally, client will have accomplished this goal AEB reduction of DSM-5 scores for anxiety. Target Date: 06/24/21 Review Date: 06/10/21 Status: open Objective #2 Stated Objective: Client will identify 2-3 cognitive distortions that lead to rumination and learn 2-3 ways to manage these thoughts to better manage anxiety Interventions: Therapist will provide education on the most common cognitive distortions and teach client the connection between thoughts, emotions, and feelings. Therapist will assist client in identifying, challenging, and replacing dysfunctional thoughts with positive, more realistic thoughts. Therapist will use CBT and DBT techniques to help client gain awareness of thinking errors and learn how to more effectively handle negative thoughts. Discharge Criteria: Client will have accomplished this goal when can identify at least 2 cognitive distortions and at least 2 coping skills to manage negative thoughts. Target Date: 06/24/21 Review Date: 06/10/21 Status: open
--- NOTE | 2021-05-20 09:05 | BH.SGPN.GN ---
Behaviors/Verbalizations/Mental Status: [] Eye contact is good. Motor activity is appropriate. Appearance is casual. Speech is Appropriate. Mood is depressed. Affect is flat. Thoughts are linear and logical. No evidence of psychosis. Reviewed daily check in sheet and no reports of suicidal thoughts. Client Response/Progress/Benefit: [] Pt participated at times in group discussion. Attentive. Emotion for today is tired. Daily symptom tracker notes 3/5 for anxiety and depression. Mental health win is increased exercise and healthy diet. Shared with the group that her boyfriend and her broke up this weekend. Reports that the relationship was not long and didn't go into any specifics except to say that they often were in conflict. Group was supportive and pt reports feeling numb about it. Pt reports trouble sleeping as well. Some progress noted per pt report. Benefited from group support, encouragement, and feedback. Will continue in IOP to maintain safety, increase healthy coping, and prevent decompensation. Narrative Note: []
--- NOTE | 2021-05-20 15:43 | BH.COMM_ITS ---
Communication Note - Communication with Client Communication Note: Pt left IOP at 1010am stating that she had another saadia ointment. Denied any SI during 1st group. This is the 2nd IOP day in a row that she has reported being unable to stay for the full 3 hours.
--- NOTE | 2021-05-21 12:00 | BH.COMM ---
Communication Note - Communication with Client Communication Note: Client cancelled her scheduled IOP session today due to having body aches. Client's attendance has become variable. Will continue to monitor level of commitment and follow up with client about physical symptoms.
--- NOTE | 2021-05-22 15:41 | BH.MDN_ITS ---
Multi-Disciplinary Note - Note 45-min Individual Time Started:: 09:20 Date: 05/22/21 Purpose of session/treatment goals addressed:: Client requested to meet with therapist today due to medication issues, sleep issues, and irritability. Goal was to help client manage emotions in the moment and assess plan of care. Eye Contact:: Good Motor Activity:: Appropriate Appearance:: Casual Speech:: Rambling Mood:: Irritable, Dysthymic Affect:: Congruent - tearful throughout session Thoughts:: Racing, No evidence of hallucinations/delusions noted Staff Interventions:: motivational interviewing, psychoeducation on: - addiction, strengths perspective, other - discussed alternative treatment options. Client Response:: Client responded well to session, open to meeting with therapist. Client reported she had to leave first group because she was highly irritable and felt overwhelmed. Client shared she barely slept last night and she feels like her medication is making her worse. Client stated it is causing her to panic and have poor sleep. Client also admitted to a relapse on Thursday where client consumed a bottle of wine in 20 minutes. Client reported she stopped drinking after one bottle and she did not drive anywhere. Client identifies her boyfriend breaking up with her as the trigger as well as ongoing family issues. Client stated she does not want to be in [facility] and she also does not want to get sober. Client stated being sober means experiencing all the strong emotions she has been trying to avoid for years and this terrifies client. Discussed what it would take for client to want to be sober and client stated I don't know, honestly. Discussed reducing risk if client is not ready to be sober and client agrees to give away her keys to a support if she decides to drink. Also discussed going to AA and returning to [facility]. Client is in the contemplation stage of change as she sees the consequences, but she is not yet ready to change. Risks/Concerns:: Client denies any suicidal ideations, plan, or intent as of 05/22/21. Client denies any thoughts of . Denies any homicidal ideations. Client admits to a relapse on 05/20/21. Denies alcohol use today. Progress Toward Goals/Plan:: Client was encouraged to stay at [facility] today to see Dr. Park due to medication issues, but client ended up leaving IOP after this individual session. Client left this session agreeable to continue IOP tx and start going to AA meetings. Client decided later on that she would not like to continue IOP tx and she will go to [facility] for medication management. Client also has resources for [facility] to get substance abuse counseling. Client continues to struggle with mood instability, alcohol abuse, and irritability. Client would like to voluntarily discharge from IOP. Time Stopped:: 10:00
--- NOTE | 2021-05-22 15:41 | BH.DS_ITS ---
Discharge Summary - Demographics Date of Admission:: 05/13/21 Discharge Date: 05/22/21 Presenting Problems at Admission:: Client is a 20-year-old female with a history of bipolar disorder, alcohol abuse disorder, eating disorder, and cluster B traits. Client was referred to [facility] after presenting to [facility] ER due to intoxication and suicide attempt. At admission to [facility] client endorsed poor sleep, erratic energy, low motivation, hopelessness, worthlessness, poor memory, poor focus, anhedonia, and passive SI. Client denied alcohol use at admission, but did admit to a recent relapse. Client went through detox in March 2021 and prior to detox, client was drinking a fifth daily. Client's mental health symptoms and substance use are significantly impacting her ability to function and develop/maintain relationships. Discharge Diagnoses:: Bipolar 1 disorder, most recent episode depressed, severe without psychosis F 31.4; Anxiety disorder, NOS; Alcohol use disorder; History of cocaine use disorder; Strong cluster B traits Reason for Discharge:: Client chose to voluntarily discharge from [facility]. Client did not present as a threat to herself or others at discharge. Client plans to focus on outpatient counseling and was given resources for AA and [facility] as well. - Treatment Progress During Treatment & Response: Limited progress due to client voluntarily discharging for [facility] after a few days of treatment. Client unable to accomplish her treatment goals due to not finishing the program. Client admitted to not finding benefit in group therapy. Issues Still to be Addressed:: Client's biggest presenting problem at this time is her ongoing substance use. Client admits she is not yet ready to stop drinking, even though client understands the consequences. Client also continues to struggle with relationship issues, family stress, financial stress, mood instability, and impulsive behaviors. Discharge Recommendations/Instructions:: Client was encouraged to stay in [facility], but client chose to voluntarily discharge due to not finding group therapy helpful. Client recommended to call [facility] for outpatient substance abuse counseling and support. Client also given resources for AA meetings in the area and [facility] for outpatient mental health services and case management. Discharge Handout: Complete Discharge Handout with client on aftercare options and continuity of care.
== END 2021-05-22 14:01 | disposition home or self-care (01) ==
LOC: BHIOP 09:31
PROVIDERS: PCP Family Medicine; Visit Provider Psychiatry & Neurology Psychiatry
DX: F31.4 Bipolar disorder, current episode depressed, severe, without psychotic features (principal); F41.9 Anxiety disorder, unspecified; Z72.89 Other problems related to lifestyle; Z79.899 Other long term (current) drug therapy
CPT/HCPCS: 90792; H2012; H2020; S9480; T1002; 90832; 90834

== ENCOUNTER → 2021-05-14 12:03 | Outpatient (CLI) | payer MEDICAID, SELFPAY ==
[2021-05-14 13:40] LABS: T3 Total - Triiodothyronine 1.09 ng/mL (0.6-1.81); Vitamin B12 398 pg/mL (211-911); Vitamin D,25 Hydroxy 27.6 ng/mL
[2021-05-14 13:44] LABS: ALB/GLOB Ratio 0.9 RATIO (0.9-2.4); AST(SGOT) 15 U/L (15-37); Alanine Aminotransfer ALT/SGPT 18 U/L (13-56); Albumin, Serum 3.8 g/dL (3.2-5.0); Alkaline Phosphatase 98 U/L (45-117); Anion Gap 7 (5-15); BUN 10 mg/dL (7-18); BUN/Creat Ratio 14.7 RATIO (10-20); Calcium,Total 8.9 mg/dL (8.5-10.1); Chloride 108 mmol/L (98-107); Creatinine, Serum 0.68 mg/dL (0.55-1.02); EST Glomerular Filtration Rate 118 mL/min (>60); Est Glom Filt Rate - Afr Amer 142 mL/min (>60); Estradiol 29.9 pg/mL; Ferritin 30 ng/mL (8-252); Follicle Stimulating Hormone 6.6 mIU/mL; Free T3 2.6 pg/mL (2.18-3.98); Globulin 4.3 g/dL (2.2-4.2); Glucose 76 mg/dL (74-106); Iron 106 ug/dL (50-170); Iron Binding Capacity,Total 335 ug/dL (250-450); Potassium 3.6 mmol/L (3.5-5.1); Prolactin 5.8 ng/mL; Protein, Total 8.1 g/dL (6.4-8.2); Sodium Level 138 mmol/L (136-145); T4 Total, Thyroxin 9.1 ug/dL (4.8-13.9); Thyroid Stim Hormone (TSH) 0.69 uIU/mL (0.358-3.74)
[2021-05-15 10:51] LABS: T4 Free Direct 1.08 ng/dL (0.76-1.46)
[2021-05-15 13:37] LABS: Sex Hormone-binding Globulin 21.4 nmol/L (24.6-122.0)
== END ==
PROVIDERS: PCP Family Medicine; Visit Provider Obstetrics & Gynecology
DX: L65.9 Nonscarring hair loss, unspecified (principal); R53.83 Other fatigue; N91.1 Secondary amenorrhea
CPT/HCPCS: 36415; 80053; 82306; 82533; 82607; 82627; 82670; 82728; 82746; 83001; 83540; 83550; 84146; 84270; 84403; 84436; 84439; 84443; 84480; 84481; 82626

== ENCOUNTER → 2021-05-23 07:59 | Outpatient (CLI) | payer MEDICAID, SELFPAY ==
[2021-05-23 10:04] LABS: Glucose GTT-30 minutes 151 mg/dL (110-170)
[2021-05-23 10:06] LABS: Glucose GTT- Fasting 81 mg/dL (74-106)
[2021-05-23 10:54] LABS: Glucose GTT- 1 Hour 133 mg/dL (120-170)
[2021-05-23 12:13] LABS: Glucose GTT- 2 Hour 79 mg/dL (70-120)
== END ==
PROVIDERS: PCP Family Medicine; Referring Provider Obstetrics & Gynecology; Visit Provider Obstetrics & Gynecology
DX: L65.9 Nonscarring hair loss, unspecified (principal); R53.83 Other fatigue; N91.1 Secondary amenorrhea
CPT/HCPCS: 36415; 82951; 82952

== ENCOUNTER 2021-06-03 18:11 | Emergency (ER) | payer MEDICAID, SELFPAY ==
[2021-06-03 18:12] VITALS: BP 107/63; PULSE 85; RESP 16; TEMP 36.8; O2SAT 98; BMI 25.8
[2021-06-03 18:56] LABS: Absolute Lymphocyte Count 2.12 X10^3/uL (0.83-4.51); Absolute Neutrophil Count 4.3 X10^3/uL (2.0-7.7); Basophil# 0.04 X10^3/uL; Basophil% 0.6 % (0-1); Eosinophil# 0.13 X10^3/uL; Eosinophils% 1.8 % (0-5); Hematocrit 40.8 % (37-47); Hemoglobin 13.5 g/dL (12.0-15.0); Lymphocyte # 2.12 X10^3/ul (0.83-4.51); Lymphocyte % 29.6 % (19-41); Mean Corp Hgb Conc 33.1 g/dL (32-36); Mean Corpuscular Volume 96.7 fL (81-99); Mean Platelet Vol. 10.2 fl (6.2-12.0); Monocyte# 0.52 X10^3/uL; Monocyte% 7.3 % (0-10); NRBC Flagged by Analyzer 0 % (0-5); Neutrophil # 4.33 X10^3/uL (2.7-7.7); Neutrophil % 60.4 % (47-70); Platelet Count 249 K/mm3 (150-450); RBC Distribution Width CV 12.4 % (11.6-14.6); RBC Distribution Width SD 43.8 fl (35.1-43.9); Red Blood Count 4.22 M/mm3 (4.2-5.4); White Blood Count 7.2 K/mm3 (4.4-11.0)
[2021-06-03 19:04] LABS: Anion Gap 4 (5-15); BUN 8 mg/dL (7-18); BUN/Creat Ratio 10.6 RATIO (10-20); Calcium,Total 8.7 mg/dL (8.5-10.1); Chloride 110 mmol/L (98-107); Creatinine, Serum 0.75 mg/dL (0.55-1.02); EST Glomerular Filtration Rate 105 mL/min (>60); Est Glom Filt Rate - Afr Amer 127 mL/min (>60); Estimated Creatinine Clearance 91.04 ml/min; Glucose 108 mg/dL (74-106); Potassium 3.6 mmol/L (3.5-5.1); Sodium Level 140 mmol/L (136-145)
--- NOTE | 2021-06-03 20:20 | EDS_ITS ---
HPI History of Present Illness Chief Complaint: Syncope Informant: patient Onset/Context/Timing Onset: Today Context: Sudden Onset Timing: Intermittent and Lasts (Approximately 1 minute) Quality: Tightness Location: Chest Worsened by: Standing, exertion, going up and down stairs Relieved by: Nothing Narrative Narrative: Patient presents with a syncopal episode that occurred today. Patient states she was at home. Patient states she felt some tightness in her chest and then passed out. Patient states it lasted proxy 1 minute. Patient states her symptoms get worse whenever she stands up or goes up and down stairs. Patient states they are better with rest. Patient admits to some nausea but denies any vomiting. Patient states she did feel her heart skipping beats. Patient states she was recently admitted to [facility] in [place] for syncopal episode. Patient was scheduled to get an echocardiogram while she was there. Patient signed out and left the hospital prior to getting the echocardiogram done. Patient states she was told that if she had another episode to return to the emergency department. Patient returns here tonight because she lives here in [place]. [facility] Medical History Alcohol use disorder Anxiety disorder, unspecified Bipolar 1 disorder, depressed, severe Drug use History of cocaine use Home Medications fluoxetine 20 mg PO DAILY 04/04/21 [History Last Taken Unknown] cariprazine [Vraylar] 1.5 mg PO DAILY #30 cap 05/15/21 [Rx Last Taken Unknown] etonogestrel [Nexplanon] SUBDERMAL 05/15/21 [History Last Taken Unknown] Allergy/AdvReac Type Severity Reaction Status Date / Time No Known Allergies Allergy Verified 06/03/21 18:14 Social History Smoking Status: Current every day smoker tobacco type: cigarettes and e- cigarettes substance use type: does not use ROS ROS ED Constitutional Constitutional ED: Denies chills or fever(s) Eyes Eyes: Denies blurry vision or change in vision ENT ENT ED: Denies rhinorrhea or sore throat Cardiovascular Cardiovascular: Reports chest pain and palpitations Respiratory/Chest Respiratory/Chest: Denies cough or dyspnea Gastrointestinal Gastrointestinal: Reports nausea; Denies vomiting Genitourinary Genitourinary ED: Denies dysuria or hematuria Musculoskeletal Musculoskeletal: Denies back pain or neck pain Integumentary Denies abscess or rash Neurologic Neurologic: Reports headache(s); Denies weakness Allergic/Immunologic Allergic/Immunologic ED: Denies mouth swelling or urticaria EXAM Physical Exam Const Vital Signs: 06/03/21 18:12 Temperature 98.2 F Temperature Source Temporal Pulse Rate 85 Respiratory Rate 16 Blood Pressure 107/63 Blood Pressure Mean 77 Pulse Ox 98 Oxygen Delivery Method Room Air Positive well nourished and well developed General Appearance ED: well developed HEENT Reports moist mucous membranes Neck supple and no JVD Resp normal respiratory effort and clear to auscultation bilaterally Cardio regular rate, regular rhythm and no murmurs GI normal to inspection, nondistended, normoactive bowel sounds and non-tender Palpation: soft Extremity normal to inspection General Extremety ED: Negative for edema or tenderness General Extremity: Negative for edema Neuro oriented x3, CN's II-XII intact bilaterally and no sensory deficits noted Sensorium / Orientation: alert Motor Exam: strength 5/5 throughout Psych mental status grossly normal Skin no rashes or lesions noted MDM MDM MDM Narrative Medical decision making narrative: CBC was within normal limits. Basic metabolic profile was essentially within normal limits. I advised the patient that we would not be able to do the echocardiogram [facility]. Patient states she did not realize this. Patient states she just wants to go home and will follow up with her echocardiogram as an outpatient. Patient was advised to follow-up with her primary care physician in 2 to 3 days. Patient understood and was agreeable with the plan. All questions were answered. Lab Data Attestation: I reviewed the patient's lab results. Labs: Laboratory Results - last 24 hr 06/03/21 06/03/21 18:03 18:03 WBC 7.2 RBC 4.22 Hgb 13.5 Hct 40.8 MCV 96.7 MCH 32.0 MCHC 33.1 RDW Std Deviation 43.8 RDW Coeff of Reggie 12.4 Plt Count 249 MPV 10.2 Immature Gran % (Auto) 0.300 Neut % (Auto) 60.4 Lymph % (Auto) 29.6 Murray % (Auto) 7.3 Eos % (Auto) 1.8 Baso % (Auto) 0.6 Absolute Neuts (auto) 4.3 Absolute Lymphs (auto) 2.12 Nucleated RBC % 0 Sodium 140 Potassium 3.6 Chloride 110 H Carbon Dioxide 26.0 Anion Gap 4 L BUN 8 Creatinine 0.75 Estim Creat Clear Calc 91.04 Est GFR (MDRD) Af Amer 127 Est GFR (MDRD) Non-Af 105 BUN/Creatinine Ratio 10.6 Glucose 108 H Calcium 8.7 Discharge Plan Triage Chief Complaint: Syncope ED Provider: Ilia Aleman Dx/Rx/DC Orders Clinical Impression: Syncope and collapse Instructions: ED Fainting, Uncertain Cause Prescriptions: No Action fluoxetine 20 mg capsule 20 mg PO DAILY RF: 0 Vraylar 1.5 mg capsule 1.5 mg PO DAILY Qty: 30 RF: 0 Nexplanon 68 mg Implant SUBDERMAL RF: 0 Primary Care Provider: Wu Herrera Referrals: Wu Herrera MD [Primary Care Provider] - 3-5 Days Disposition Disposition: Home, Self Care
== END 2021-06-03 20:51 | disposition home or self-care (01) ==
PROVIDERS: Emergency Provider Emergency Medicine; PCP Family Medicine
DX: R55 Syncope and collapse (principal); F17.210 Nicotine dependence, cigarettes, uncomplicated
CPT/HCPCS: 80048; 85025; 99284

== ENCOUNTER 2021-06-15 17:15 | Emergency (ER) | payer MEDICAID, SELFPAY ==
[2021-06-15 17:17] VITALS: BP 108/70; PULSE 92; RESP 24; TEMP 36.9; O2SAT 100; BMI 29.0
[2021-06-15 17:23] VITALS: BP 108/70; PULSE 92; RESP 28; TEMP 36.9; O2SAT 100
--- NOTE | 2021-06-15 17:43 | ED.RN ---
, [place]mates number for [place].
--- NOTE | 2021-06-15 18:38 | EKG12_ITS ---
Test Reason : Blood Pressure : / mmHG Vent. Rate : 074 BPM Atrial Rate : 074 BPM P-R Int : 128 ms QRS Dur : 082 ms QT Int : 412 ms P-R-T Axes : 036 061 028 degrees QTc Int : 457 ms Normal sinus rhythm with sinus arrhythmia Normal ECG Confirmed by JEN JO, JAYASHREE ([id number]), editorial manager GERARDO JEAN ([id number]) on 06/17/2021 10:14:26 AM Referred By: PITA Confirmed By:JAYASHREE LI MD
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
[2021-06-15 18:58] LABS: Absolute Lymphocyte Count 1.37 X10^3/uL (0.83-4.51); Absolute Neutrophil Count 5.3 X10^3/uL (2.0-7.7); Basophil# 0.03 X10^3/uL; Basophil% 0.4 % (0-1); Eosinophil# 0.05 X10^3/uL; Eosinophils% 0.7 % (0-5); Hematocrit 41.5 % (37-47); Hemoglobin 13.8 g/dL (12.0-15.0); Lymphocyte # 1.37 X10^3/ul (0.83-4.51); Lymphocyte % 18.7 % (19-41); Mean Corp Hgb Conc 33.3 g/dL (32-36); Mean Corpuscular Hgb 32.2 pg (27.0-32.0); Mean Corpuscular Volume 96.7 fL (81-99); Monocyte# 0.54 X10^3/uL; Monocyte% 7.4 % (0-10); NRBC Flagged by Analyzer 0 % (0-5); Neutrophil # 5.29 X10^3/uL (2.7-7.7); Neutrophil % 72.4 % (47-70); Platelet Count 239 K/mm3 (150-450); RBC Distribution Width CV 12.3 % (11.6-14.6); RBC Distribution Width SD 43.9 fl (35.1-43.9); Red Blood Count 4.29 M/mm3 (4.2-5.4); White Blood Count 7.3 K/mm3 (4.4-11.0)
[2021-06-15 19:14] LABS: Anion Gap 6 (5-15); BUN 8 mg/dL (7-18); BUN/Creat Ratio 11.8 RATIO (10-20); Calcium,Total 9.4 mg/dL (8.5-10.1); Chloride 109 mmol/L (98-107); Creatinine, Serum 0.68 mg/dL (0.55-1.02); EST Glomerular Filtration Rate 118 mL/min (>60); Est Glom Filt Rate - Afr Amer 143 mL/min (>60); Estimated Creatinine Clearance 100.41 ml/min; Glucose 78 mg/dL (74-106); Potassium 3.7 mmol/L (3.5-5.1); Sodium Level 141 mmol/L (136-145)
[2021-06-15 19:53] VITALS: BP 118/51
== END 2021-06-15 19:54 | disposition home or self-care (01) ==
PROVIDERS: Emergency Provider Emergency Medicine; PCP Family Medicine
DX: R55 Syncope and collapse (principal); I49.8 Other specified cardiac arrhythmias; F17.210 Nicotine dependence, cigarettes, uncomplicated; F17.290 Nicotine dependence, other tobacco product, uncomplicated
CPT/HCPCS: 80048; 85025; 93005; 99285; A4216

== ENCOUNTER 2021-07-16 18:16 | Emergency (ER) | payer MEDICAID, SELFPAY ==
[2021-07-16 18:16] VITALS: BP 105/79; PULSE 105; RESP 18; TEMP 36.1; O2SAT 100; BMI 26.4
--- NOTE | 2021-07-16 19:24 | EDS_ITS ---
HPI History of Present Illness Chief Complaint: ETOH Intox Informant: patient Narrative Narrative: 20-year-old female states about 2 hours ago she drank a quart of moonshine and 12 twisted teas. This was apparently to celebrate a family members released from retirement. She states that she vomited and feels that she may have alcohol poisoning so she called the ambulance. [facility] Medical History Alcohol use disorder Anxiety disorder, unspecified Bipolar 1 disorder, depressed, severe Drug use History of cocaine use Home Medications fluoxetine 20 mg PO DAILY 04/04/21 [History Last Taken Unknown] cariprazine [Vraylar] 1.5 mg PO DAILY #30 cap 05/15/21 [Rx Last Taken Unknown] etonogestrel [Nexplanon] SUBDERMAL 05/15/21 [History Last Taken Unknown] Allergy/AdvReac Type Severity Reaction Status Date / Time No Known Allergies Allergy Verified 07/16/21 18:19 Social History Smoking Status: Current every day smoker tobacco type: cigarettes and e- cigarettes substance use type: does not use ROS ROS ED Constitutional Constitutional ED: Denies chills, fever(s) or weight loss Eyes Eyes: Denies change in vision or diplopia ENT ENT ED: Denies ear pain, rhinorrhea or sore throat Cardiovascular Cardiovascular: Denies chest pain, orthopnea, palpitations or racing heartbeat Respiratory/Chest Respiratory/Chest: Denies cough, dyspnea or orthopnea Gastrointestinal Gastrointestinal: Reports nausea and vomiting; Denies abdominal pain or diarrhea Genitourinary Genitourinary ED: Denies dysuria, hematuria or urinary frequency Musculoskeletal Musculoskeletal: Denies arthralgias or myalgias Integumentary Denies abscess or rash Neurologic Neurologic: Denies headache(s) or weakness Psychiatric Psychiatric: Denies anxiety, depression, suicidal ideation or suicidal thoughts Endocrine Endocrinology: Denies polydipsia, polyphagia or polyuria Allergic/Immunologic Allergic/Immunologic ED: Denies mouth swelling, tongue swelling or urticaria EXAM Physical Exam Const Vital Signs: 07/16/21 18:16 Temperature 97 F L Temperature Source Temporal Pulse Rate 105 H Respiratory Rate 18 Blood Pressure 105/79 Blood Pressure Mean 87 Pulse Ox 100 Oxygen Delivery Method Room Air Positive well nourished and well developed General Appearance ED: well developed HEENT Reports normocephalic, head/scalp atraumatic, TM's clear and moist mucous membranes Negative for trauma Tympanic Membrane ED: Yes TM's clear Eyes PERRL and EOMs intact bilaterally Neck no lymphadenopathy, supple and no JVD Resp normal respiratory effort and clear to auscultation bilaterally Cardio regular rate, regular rhythm and no murmurs GI normal to inspection, nondistended, normoactive bowel sounds and non-tender Palpation: soft Back/Spine no CVA tenderness and normal ROM Extremity normal to inspection General Extremety ED: Negative for edema General Extremity: Negative for edema Neuro oriented x3 and CN's II-XII intact bilaterally Neuro Narrative: Patient is ANO x3. She is not stuporous or slurring her words. She is sitting up controlling her airway. Sensorium / Orientation: alert Motor Exam: strength 5/5 throughout Psych mental status grossly normal Mood & Affect: Negative for depressed or tearful Skin no rashes or lesions noted and no wounds MDM MDM MDM Narrative Medical decision making narrative: I informed the patient that she most likely has some alcohol intoxication in the treatment would be for her to rest and hydrate. I informed her that she can stay here until she feels sober enough to return home. She would like the treatment for alcohol poisoning I informed her that unless she needs life support the above is pretty much what we would be doing given her normal vital signs and mental status. Discharge Plan Triage Chief Complaint: ETOH Intox ED Provider: Giovani Hernandez Dx/Rx/DC Orders Clinical Impression: Alcohol intoxication, Vomiting Instructions: ED Alcohol Intoxication Prescriptions: No Action fluoxetine 20 mg capsule 20 mg PO DAILY RF: 0 Vraylar 1.5 mg capsule 1.5 mg PO DAILY Qty: 30 RF: 0 Nexplanon 68 mg Implant SUBDERMAL RF: 0 Primary Care Provider: Wu Herrera Referrals: Wu Herrera MD [Primary Care Provider] - As Needed
[2021-07-16] MEDS: Ondansetron ODT 4 MG Tablet PO (21:42)
[2021-07-16 21:45] VITALS: BP 112/75; PULSE 89; RESP 14; O2SAT 99
== END 2021-07-16 21:46 | disposition home or self-care (01) ==
PROVIDERS: Emergency Provider Emergency Medicine; PCP Family Medicine; Visit Provider Emergency Medicine
DX: F10.129 Alcohol abuse with intoxication, unspecified (principal); F17.210 Nicotine dependence, cigarettes, uncomplicated; R11.10 Vomiting, unspecified
CPT/HCPCS: J7030

== ENCOUNTER 2021-07-16 23:06 | Observation (INO) | payer MEDICAID, SELFPAY ==
[2021-07-16 23:07] VITALS: BP 110/74; PULSE 108; RESP 18; TEMP 36.7; O2SAT 99; BMI 26.4
[2021-07-16 23:29] VITALS: BP 113/68; BP 120/104; PULSE 100; RESP 20; RESP 29; TEMP 36.8; O2SAT 100; O2SAT 96
--- NOTE | 2021-07-16 23:40 | EKG12_ITS ---
Test Reason : WITHDRAWL Blood Pressure : / mmHG Vent. Rate : 092 BPM Atrial Rate : 092 BPM P-R Int : 136 ms QRS Dur : 082 ms QT Int : 396 ms P-R-T Axes : -08 070 011 degrees QTc Int : 489 ms Normal sinus rhythm Prolonged QT Abnormal ECG Confirmed by JEN JO, JAYASHREE ([id number]), web editor YUDY ROSEN ([id number]) on 07/19/2021 9:59:02 AM Referred By: KRISTEN Confirmed By:JAYASHREE LI MD
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
[2021-07-16 23:51] LABS: Absolute Lymphocyte Count 1.88 X10^3/uL (0.83-4.51); Absolute Neutrophil Count 6.3 X10^3/uL (2.0-7.7); Basophil# 0.03 X10^3/uL; Basophil% 0.3 % (0-1); Eosinophil# 0.01 X10^3/uL; Eosinophils% 0.1 % (0-5); Hematocrit 43.5 % (37-47); Hemoglobin 14.4 g/dL (12.0-15.0); Lymphocyte # 1.88 X10^3/ul (0.83-4.51); Mean Corp Hgb Conc 33.1 g/dL (32-36); Mean Corpuscular Hgb 31.5 pg (27.0-32.0); Mean Corpuscular Volume 95.2 fL (81-99); Mean Platelet Vol. 9.9 fl (6.2-12.0); Monocyte# 0.73 X10^3/uL; Monocyte% 8.1 % (0-10); NRBC Flagged by Analyzer 0 % (0-5); Neutrophil # 6.28 X10^3/uL (2.7-7.7); Neutrophil % 70.1 % (47-70); Platelet Count 277 K/mm3 (150-450); RBC Distribution Width CV 12.3 % (11.6-14.6); RBC Distribution Width SD 42.9 fl (35.1-43.9); Red Blood Count 4.57 M/mm3 (4.2-5.4)
[2021-07-16] MEDS: Ondansetron 4 MG/2 ML Vial IV (23:53)
[2021-07-16] MEDS: Famotidine 200 MG/20 ML MDV 20 MG in 0.9% Normal Saline (Pres. free 8 ML 300 MG IV (23:53)
[2021-07-16] MEDS: 0.9% Normal Saline 1,000 ML 1000 ML IV (23:53)
[2021-07-17] LABS: Alcohol, Blood (Medical)-Serum < 3.0 mg/dL
[2021-07-17 00:01] LABS: Anion Gap 12 (5-15); BUN 9 mg/dL (7-18); Calcium,Total 9.3 mg/dL (8.5-10.1); Chloride 106 mmol/L (98-107); Creatinine, Serum 0.75 mg/dL (0.55-1.02); EST Glomerular Filtration Rate 105 mL/min (>60); Est Glom Filt Rate - Afr Amer 127 mL/min (>60); Estimated Creatinine Clearance 91.04 ml/min; Glucose 100 mg/dL (74-106); Potassium 3.7 mmol/L (3.5-5.1); Sodium Level 141 mmol/L (136-145)
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
[2021-07-17 00:17] VITALS: BP 112/86; PULSE 82; RESP 18; TEMP 36.7; O2SAT 100
[2021-07-17] MEDS: LORazepam 2 MG/ML Syringe 1 MG IV (00:17)
[2021-07-17 00:50] VITALS: BMI 29.0
--- NOTE | 2021-07-17 01:00 | PCS.PANDOC ---
PANDEMIC DOCUMENTATION INITIATED: Date: 02/25/2021 Time: 190
[2021-07-17 01:03] LABS: Internal QC Validated? YES +Cl - CLEAR BKGD; Pregnancy, Serum, hCG Quali. NEGATIVE Negative
[2021-07-17] MEDS: Ondansetron 8 MG Tablet PO ×2 (01:52→09:19)
[2021-07-17] MEDS: Phenobarbital 32.4 MG Tablet 64.8 MG PO ×6 (01:52→21:57)
[2021-07-17 05:58] VITALS: BP 111/68; PULSE 102; RESP 16; TEMP 36.7; O2SAT 98
[2021-07-17 09:00] VITALS: BP 112/72; PULSE 100; RESP 16; TEMP 36.6; O2SAT 98
[2021-07-17] MEDS: Folic Acid 1 MG Tablet PO (09:10)
[2021-07-17] MEDS: Thiamine Hydrochloride 100 MG Tablet PO (09:11)
[2021-07-17] MEDS: Dicyclomine 10 MG Capsule 20 MG PO (09:11)
[2021-07-17] MEDS: Lactated Ringers 1,000 ML 75 ML IV (09:12)
--- NOTE | 2021-07-17 11:30 | PN.HOSP_ITS ---
Subjective Subjective Follow-up on acute alcohol withdrawal: Patient was seen and examined. She complains of feeling very tired and wanting to sleep. She denied any new complaints. Chart reviewed?vitals are stable. Labs reviewed Continue on phenobarbital withdrawal protocol Objective Data Objective Data Vital Signs: Vital Signs Temp Pulse Resp BP Pulse Ox 97.8 F 100 16 112/72 98 07/17/21 09:00 07/17/21 09:00 07/17/21 09:00 07/17/21 09:00 07/17/21 09:00 Oxygen Delivery Method Room Air Weight: 69.8 kg Body Mass Index (BMI) 29.0 Intake & Output: Intake and Output for Last 24 Hours 07/15/21 07/16/21 07/17/21 23:59 23:59 23:59 Intake Total 1200 / 1200 Balance 1200 / 1200 Lab / Micro Data Result Diagrams: 07/16/21 23:22 07/16/21 23:22 Labs: Laboratory Results - last 24 hr 07/16/21 23:22: WBC 9.0, RBC 4.57, Hgb 14.4, Hct 43.5, MCV 95.2, MCH 31.5, MCHC 33.1, RDW Std Deviation 42.9, RDW Coeff of Reggie 12.3, Plt Count 277, MPV 9.9, Immature Gran % (Auto) 0.400, Neut % (Auto) 70.1 H, Lymph % (Auto) 21.0, [place] % (Auto) 8.1, Eos % (Auto) 0.1, Baso % (Auto) 0.3, Absolute Neuts (auto) 6.3, Abs olute Lymphs (auto) 1.88, Nucleated RBC % 0 07/16/21 23:22: Sodium 141, Potassium 3.7, Chloride 106, Carbon Dioxide 23.0, Anion Gap 12, BUN 9, Creatinine 0.75, Estim Creat Clear Calc 91.04, Est GFR (MDRD) Af Amer 127, Est GFR (MDRD) Non-Af 105, BUN/Creatinine Ratio 12.0, Gluco se 100, Calcium 9.3 07/16/21 23:22: Ethyl Alcohol < 3.0 07/16/21 23:22: Serum , Qual NEGATIVE
[2021-07-17 12:53] VITALS: BP 130/68; PULSE 98; RESP 18; TEMP 36.6; O2SAT 97
--- NOTE | 2021-07-17 13:10 | ADDICTION ---
This contract writer met with PT to conduct ASAM, MSE, AUDIT assessments and to plan for d/c. PT A+Ox4 and participated actively. PT plans to f/u with individual counselor at [facility] for follow-up counseling services. PT did not indicate a need for transportation post d/c from [facility].
[2021-07-17 15:42] VITALS: BP 120/78; PULSE 89; RESP 18; TEMP 37.1; O2SAT 98
[2021-07-17 16:09] LABS: Amphetamine Urine VISTA NEGATIVE (<1000 ng/mL); Barbiturate Urine VISTA POSITIVE (< 200 ng/mL); Benzodiazepine Urine VISTA NEGATIVE (< 200 ng/mL); Cocaine Urine VISTA NEGATIVE (< 300 ng/mL); Ecstacy Urine VISTA NEGATIVE (< 500 ng/mL); Methadone Urine VISTA NEGATIVE (< 300 ng/mL); PCP Urine VISTA NEGATIVE (< 25 ng/mL); THC Urine VISTA NEGATIVE (< 50 ng/mL); Vista UDS pH Range 7
[2021-07-17 22:01] VITALS: BP 110/56; PULSE 91; RESP 16; TEMP 37
[2021-07-18] MEDS: Phenobarbital 32.4 MG Tablet 64.8 MG PO ×4 (01:49→13:26)
[2021-07-18 01:53] VITALS: BP 109/60; PULSE 80; RESP 16; TEMP 36.9; O2SAT 98
[2021-07-18 06:00] VITALS: BP 104/66; PULSE 75; RESP 16; TEMP 36.8; O2SAT 100
[2021-07-18 07:52] VITALS: O2SAT 98
[2021-07-18] MEDS: Thiamine Hydrochloride 100 MG Tablet PO (08:34)
[2021-07-18] MEDS: Folic Acid 1 MG Tablet PO (08:34)
[2021-07-18 08:36] VITALS: BP 90/52; PULSE 77; RESP 16; TEMP 36.7; O2SAT 98
--- NOTE | 2021-07-18 11:27 | PN.HOSP_ITS ---
Subjective Subjective Follow-up on acute alcohol withdrawal: Patient was seen and examined. She complains of poor sleep, feeling tremulous. No acute events overnight Objective Data Objective Data Vital Signs: Vital Signs Temp Pulse Resp BP Pulse Ox 98.1 F 77 16 90/52 L 98 07/18/21 08:36 07/18/21 08:36 07/18/21 08:36 07/18/21 08:36 07/18/21 08:36 Oxygen Delivery Method Room Air Weight: 69.8 kg Body Mass Index (BMI) 29.0 Intake & Output: Intake and Output for Last 24 Hours 07/16/21 07/17/21 07/18/21 23:59 23:59 23:59 Intake Total 1200 / 1200 1000 / 1000 Balance 1200 / 1200 1000 / 1000 Lab / Micro Data Result Diagrams: 07/16/21 23:22 07/16/21 23:22 Labs: Laboratory Results - last 24 hr 07/17/21 15:45: Urine Opiates Screen NEGATIVE, Urine Methadone Screen NEGATIVE, Ur Barbiturates Screen POSITIVE H, Ur Phencyclidine Scrn NEGATIVE, Ur Amphetamines Screen NEGATIVE, U Methamphetamin-MDMA NEGATIVE, U Benzodiazepines Scrn NEGATIVE, Urine Cocaine Screen NEGATIVE, U Cannabinoids Screen NEGATIVE, Ur Drug Screen Comment Physical Exam Narrative Physical exam: General: Alert, Oriented x3, Cooperative, No apparent distress, Well developed HEENT: Atraumatic Oral: Moist Mucosa Neck: Supple Lungs: Clear to auscultation Cardiovascular: HS I+II, regular, no murmurs Abdomen: Bowel Sounds Present, Soft, Non Tender Extremities: No edema Assessment & Plan Assessment/Plan (1) Desire for detoxification: (2) Alcohol withdrawal: QUALIFIERS: Complication of substance-induced condition: uncomplic ated Qualified Code(s): F10.230 - Alcohol dependence with withdrawal, unco mplicated PLAN: 1. Acute alcohol withdrawal, last CIWA score was 2, Continue on phenobarb taper and withdrawal protocol Continue on folic acid, multivitamin, thiamine 2. Nicotine dependence, on replacement 3. DVT prophylaxis - low risk; early ambulation Charges/Coding Visit Charges Inpatient E&M: 04286 Subs Hosp L2
[2021-07-18 13:24] VITALS: BP 92/53; PULSE 82; RESP 16; TEMP 36.8; O2SAT 98
--- NOTE | 2021-07-18 14:31 | ADDICTION ---
This worker offered supportive counseling. PT was encouraged to complete detox program. PT declined.
== END 2021-07-18 14:48 | disposition left against medical advice (07) | DRG 770 ==
LOC: ED 07-17 00:08 → MS2 07-17 00:58
PROVIDERS: Admitting Provider Hospitalist; Emergency Provider Emergency Medicine; PCP Family Medicine; Visit Provider Internal Medicine
DX: F10.239 Alcohol dependence with withdrawal, unspecified (principal); F31.9 Bipolar disorder, unspecified; F17.210 Nicotine dependence, cigarettes, uncomplicated; R11.10 Vomiting, unspecified; Z91.410 Personal history of adult physical and sexual abuse; Z91.42 Personal history of forced labor or sexual exploitation; Y90.9 Presence of alcohol in blood, level not specified; F17.290 Nicotine dependence, other tobacco product, uncomplicated
CPT/HCPCS: 80048; 80307; 82077; 84703; 85025; 93005; 96361; 96374; 96375; 97802; 99218; 99284; J7030; J7120; G0378; J2405; J3490

== ENCOUNTER 2021-07-25 07:29 | Emergency (ER) | payer MEDICAID, SELFPAY ==
[2021-07-25 07:30] VITALS: BP 114/80; PULSE 97; RESP 16; TEMP 36.7; O2SAT 100; BMI 33.5
[2021-07-25 07:38] VITALS: TEMP 36.8
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
[2021-07-25 08:59] VITALS: BP 105/74; PULSE 62; RESP 15; O2SAT 99
== END 2021-07-25 09:00 | disposition home or self-care (01) ==
PROVIDERS: Emergency Provider Emergency Medicine; PCP Family Medicine; Visit Provider Emergency Medicine
DX: S09.90XA Unspecified injury of head, initial encounter (principal); E66.9 Obesity, unspecified; F17.210 Nicotine dependence, cigarettes, uncomplicated; V49.40XA Driver injured in collision with unspecified motor vehicles in traffic accident, initial encounter; Y92.410 Unspecified street and highway as the place of occurrence of the external cause
CPT/HCPCS: 70450; 72125; 99284

== ENCOUNTER 2021-08-02 15:24 | Outpatient (CLI) | payer MEDICAID, SELFPAY ==
[2021-08-02 16:37] LABS: Vitamin B12 461 pg/mL (211-911)
== END 2021-08-02 23:59 | disposition short-term general hospital (02) ==
PROVIDERS: PCP Family Medicine; Visit Provider Obstetrics & Gynecology
DX: Z11.3 Encounter for screening for infections with a predominantly sexual mode of transmission (principal); N77.1 Vaginitis, vulvitis and vulvovaginitis in diseases classified elsewhere; E53.8 Deficiency of other specified B group vitamins
CPT/HCPCS: 36415; 82607

== ENCOUNTER 2021-08-27 09:55 | Outpatient (CLI) | payer MEDICAID, SELFPAY ==
--- NOTE | 2021-08-27 09:57 | ECHOD_ITS ---
Reason For Study: syncope/near syncope Procedure This was a 2D Doppler, Color Flow transthoracic echocardiogram. Exam performed in department. Left Ventricle Normal LV size. Left ventricular systolic function is normal. The estimated ejection fraction is 60 %. Normal diastology for age. No regional wall motion abnormalities noted. Right Ventricle Normal RV size. Normal systolic function. Atria Normal left atrium. Normal right atrium. Mitral Valve Normal mitral valve. Tricuspid Valve Normal tricuspid valve. Aortic Valve Normal aortic valve. Trisinus/trileaflet aortic valve. Pulmonic Valve Normal pulmonic valve. Great Vessels Normal aortic root. The pulmonary artery is normal size. Normal inferior vena cava. Pericardium/Pleural No pericardial effusion. MMode/2D Measurements & Calculations LVIDd: 5.2 cm IVSd: 0.74 cm Ao root diam: 2.3 cm LVIDs: 3.4 cm LVPWd: 0.74 cm RVDd: 2.5 cm FS: 36.0 % LAV(MOD-bp): 37.5 ml LVAd ap4: 23.3 cm2 LVAd ap2: 27.4 cm2 LAV(MOD-bp) Indexed: 22.5 ml/m2 LVLd ap4: 7.0 cm LVLd ap2: 7.2 cm LAV(MOD-sp2): 38.3 ml EDV(MOD-sp4): 65.5 ml EDV(MOD-sp2): 87.4 ml LAV(MOD-sp4): 34.9 ml EDV(sp4-el): 66.2 ml EDV(sp2-el): 88.9 ml LVAs ap4: 14.9 cm2 LVAs ap2: 16.5 cm2 LVLs ap4: 5.8 cm LVLs ap2: 5.9 cm ESV(MOD-sp4): 32.5 ml ESV(MOD-sp2): 39.9 ml ESV(sp4-el): 32.9 ml ESV(sp2-el): 39.0 ml EF(MOD-sp4): 50.3 % EF(MOD-sp2): 54.3 % EF(sp4-el): 50.4 % SV(MOD-sp4): 32.9 ml SV(MOD-sp2): 47.4 ml SV(sp4-el): 33.4 ml LA dimension(2D): 3.2 cm LA A4 area: 14.4 cm2 RA A4 area: 11.6 cm2 Time Measurements MV dec time: 0.14 sec Doppler Measurements & Calculations MV E max siddharth: 94.1 cm/sec Lat Peak E' Siddharth: 20.7 cm/sec Med Peak E' Siddharth: 13.3 cm/sec MV A max siddharth: 35.6 cm/sec E/E' lat: 4.6 E/E' med: 7.1 MV E/A: 2.6 Ao V2 max: 114.1 cm/sec LV V1 max: 97.2 cm/sec PA V2 max: 95.0 cm/sec Ao max P.2 mmHg LV V1 max P.8 mmHg ECHO/Echo Complete Interpretation Summary Normal LV size. Left ventricular systolic function is normal. The estimated ejection fraction is 60 %. Normal diastology for age. Structurally normal valves. Ordering Physician: Ruben Moffett Referring Physician: Wu Herrera Performed By: Gabrielle Hobbs, JANIS, RVT
--- NOTE | 2021-09-08 15:39 | TILTTABLE_ITS ---
Staff Staff: Althea Genao Summary Pre Test Resting HR: 80 Pre Test Resting BP: 116/64 Minimum Test HR: 63 Maximum Test HR: 115 Minimum Test BP: 95/57 Maximum Test BP: 116/64 Physician Tilt Table Report Patient's Physicians Primary Care Physician: Wu Herrera Indications/Diagnosis: Recurrent syncope Procedure Comments: The patient was brought to the noninvasive lab in the postabsorptive nonsedated state. Initial blood pressure and heart rate was obtained. The patient was then placed in the 70 degree head upright tilt position. The initial EKG demonstrated normal sinus rhythm with a rate of 69 bpm. The initial blood pressure was 116/64. The patient was then kept in the position for total duration of 20 minutes. Heart rate and blood pressure responses were obtained. Patient noted no symptomatology. The patient was then placed back in the recumbent position and administered 0.4 mg of sublingual nitroglycerin. The patient was then placed back in the head upright tilt position at 70 degrees. Patient was noted to have developed premature v entricular complexes, felt diaphoretic warm and clammy with a heart rate increasing to 115 bpm and the blood pressure dropping to 95/57 mmHg. The patient subsequently improved and was subsequently administered 500 cc of normal saline with improvement and final heart rate and blood pressure being 73, and 100/65 mmHg. Summary: The above is indicative of orthostatic changes secondary to nitroglycerin. No evidence of vasodepressive syncope is noted here
[2021-09-08 15:43] VITALS: BP 116/64; BP 95/57
== END 2021-08-27 23:59 | disposition home or self-care (01) ==
LOC: CVS 09:56
PROVIDERS: PCP Family Medicine; Referring Provider Internal Medicine Cardiovascular Disease; Visit Provider Internal Medicine Cardiovascular Disease
DX: R55 Syncope and collapse (principal)
CPT/HCPCS: 93306; 93660; J7040; A4216

== ENCOUNTER 2021-10-04 13:52 | Outpatient (CLI) | payer MEDICAID, SELFPAY ==
[2021-10-07 18:07] LABS: Chlamydia By Nucleic Acid AMP Negative (Negative)
[2021-10-07 21:18] LABS: Gonococcus By Nucleic Acid AMP Negative (Negative)
== END 2021-10-04 23:59 | disposition home or self-care (01) ==
LOC: LABSPEC 14:04
PROVIDERS: PCP Family Medicine; Visit Provider Obstetrics & Gynecology
DX: R10.2 Pelvic and perineal pain (principal); Z11.3 Encounter for screening for infections with a predominantly sexual mode of transmission
CPT/HCPCS: 87591; 87491

== ENCOUNTER 2021-10-04 15:29 | Emergency (ER) | payer MEDICAID, SELFPAY ==
[2021-10-04 15:30] VITALS: BP 119/71; PULSE 76; RESP 18; TEMP 36.6; O2SAT 96; BMI 28.3
[2021-10-04 16:23] LABS: Absolute Lymphocyte Count 1.71 X10^3/uL (0.83-4.51); Absolute Neutrophil Count 4.3 X10^3/uL (2.0-7.7); Basophil# 0.02 X10^3/uL; Basophil% 0.3 % (0-1); Eosinophil# 0.08 X10^3/uL; Eosinophils% 1.2 % (0-5); Hematocrit 42.2 % (37-47); Hemoglobin 13.9 g/dL (12.0-15.0); Lymphocyte # 1.71 X10^3/ul (0.83-4.51); Lymphocyte % 25.4 % (19-41); Mean Corp Hgb Conc 32.9 g/dL (32-36); Mean Corpuscular Hgb 32.1 pg (27.0-32.0); Mean Corpuscular Volume 97.5 fL (81-99); Mean Platelet Vol. 10.3 fl (6.2-12.0); Monocyte% 8.9 % (0-10); NRBC Flagged by Analyzer 0 % (0-5); Neutrophil % 63.9 % (47-70); Platelet Count 226 K/mm3 (150-450); RBC Distribution Width CV 12.6 % (11.6-14.6); RBC Distribution Width SD 45.2 fl (35.1-43.9); Red Blood Count 4.33 M/mm3 (4.2-5.4); White Blood Count 6.7 K/mm3 (4.4-11.0)
[2021-10-04 16:37] LABS: Anion Gap 4 (5-15); BUN 12 mg/dL (7-18); Calcium,Total 9.1 mg/dL (8.5-10.1); Chloride 109 mmol/L (98-107); Creatinine, Serum 0.86 mg/dL (0.55-1.02); EST Glomerular Filtration Rate 90 mL/min (>60); Est Glom Filt Rate - Afr Amer 109 mL/min (>60); Glucose 94 mg/dL (74-106); Lactic Acid 0.7 mmol/L (0.4-1.9); Potassium 3.8 mmol/L (3.5-5.1); Sodium Level 139 mmol/L (136-145)
--- NOTE | 2021-10-04 16:38 | EDS_ITS ---
HPI HPI - GI History of Present Illness Chief Complaint: Abd Pain Informant: patient Abdominal Pain/Flank Pain Onset: Days (2) Context: Gradual Onset Timing: Continuous Quality: Cramping Location: LLQ Worsened by: Nothing Relieved by: Nothing Nausea/Vomiting/Emesis GI Symptom: Positive for Nausea and Vomiting Quality: Negative for Blood streaks, Coffee ground and Hematemesis Diarrhea/Melena/Hematochezia GI Symptom: Positive for Diarrhea; Negative for Melena and Hematochezia Associated Symptoms Associated Symptoms: Positive for Dysuria and Frequency Narrative Narrative: Patient presents with left lower quadrant abdominal pain that has been getting worse over the past 2 days. Patient states it is gradually gotten worse. Patient states it has been constant. Patient describes it as cramping. Patient states it is localized to the left lower quadrant. Patient states nothing makes it worse and nothing makes it better. Patient saw her [employer] to day who did a transvaginal ultrasound and saw a questionable abscess in the left adnexa. Patient was then referred to the emergency department. Patient admits to some nausea and vomiting. Patient denies any hematemesis or coffee-ground emesis. Patient admits to some diarrhea but denies any melena or hematochezia. Patient admits to some dysuria and urinary frequency. [facility] Medical History Alcohol use disorder Alcohol withdrawal Anxiety disorder, unspecified Asthma Bipolar 1 disorder, depressed, severe Desire for detoxification GERD (gastroesophageal reflux disease) History of cocaine use Migraines Osteopenia Tobacco abuse Home Medications etonogestrel [Nexplanon] SUBDERMAL 05/15/21 [History Last Taken Unknown] metformin 500 mg tablet 500 mg PO DAILY 08/07/21 [History Last Taken Unknown] Allergy/AdvReac Type Severity Reaction Status Date / Time No Known Allergies Allergy Verified 10/04/21 15:32 Family History Other COPD (chronic obstructive pulmonary disease) Social History Smoking Status: Current every day smoker tobacco type: cigarettes and e- cigarettes substance use type: does not use ROS ROS ED Constitutional Constitutional ED: Reports fever(s); Denies chills Eyes Eyes: Denies blurry vision or change in vision ENT ENT ED: Denies rhinorrhea or sore throat Cardiovascular Cardiovascular: Denies chest pain or palpitations Respiratory/Chest Respiratory/Chest: Denies cough or dyspnea Gastrointestinal Gastrointestinal: Reports abdominal pain, diarrhea, nausea and vomiting Genitourinary Genitourinary ED: Reports dysuria and urinary frequency; Denies hematuria Musculoskeletal Musculoskeletal: Denies back pain or neck pain Integumentary Denies abscess or rash Neurologic Neurologic: Denies headache(s) or weakness Allergic/Immunologic Allergic/Immunologic ED: Denies mouth swelling or urticaria EXAM Physical Exam Const Vital Signs: 10/04/21 15:30 Temperature 97.8 F Temperature Source Temporal Pulse Rate 76 Respiratory Rate 18 Blood Pressure 119/71 Blood Pressure Mean 87 Pulse Ox 96 Oxygen Delivery Method Room Air Positive well nourished and well developed General Appearance ED: well developed and NAD HEENT Reports moist mucous membranes Neck supple and no JVD Resp normal respiratory effort and clear to auscultation bilaterally Cardio regular rate, regular rhythm and no murmurs GI normal to inspection, nondistended, normoactive bowel sounds Palpation: soft and tender LLQ, LUQ and suprapubic; Negative for guarding or rebound tenderness present Extremity normal to inspection General Extremety ED: Negative for edema or tenderness General Extremity: Negative for edema Neuro oriented x3, CN's II-XII intact bilaterally and no sensory deficits noted Sensorium / Orientation: alert Motor Exam: strength 5/5 throughout Psych mental status grossly normal Skin no rashes or lesions noted MDM MDM MDM Narrative Medical decision making narrative: CBC was within normal limits. Basic metabolic profile was within normal limits. Lactate was normal. Urine hCG was negative. Urinalysis does not show any evidence of urinary tract infection. CT scan of the abdomen pelvis was obtained. There is a left ovarian cyst. There is no other acute abnormality noted. This was interpreted by the radiologist maritza herron reviewed by myself. Patient was advised of her findings. Patient was instructed to take ibuprofen or Tylenol as needed for pain. Patient was instructed to follow-up with her primary care physician and [employer] in 3 to 5 days. Patient understood and was agreeable with the plan. All questions were answered. Lab Data Attestation: I reviewed the patient's lab results. Labs: Laboratory Results - last 24 hr 10/04/21 10/04/21 10/04/21 15:55 15:55 15:55 WBC 6.7 RBC 4.33 Hgb 13.9 Hct 42.2 MCV 97.5 MCH 32.1 H MCHC 32.9 RDW Std Deviation 45.2 H RDW Coeff of Reggie 12.6 Plt Count 226 MPV 10.3 Immature Gran % (Auto) 0.300 Neut % (Auto) 63.9 Lymph % (Auto) 25.4 [place] % (Auto) 8.9 Eos % (Auto) 1.2 Baso % (Auto) 0.3 Absolute Neuts (auto) 4.3 Absolute Lymphs (auto) 1.71 Nucleated RBC % 0 Sodium 139 Potassium 3.8 Chloride 109 H Carbon Dioxide 26.0 Anion Gap 4 L BUN 12 Creatinine 0.86 Estim Creat Clear Calc 79.40 Est GFR (MDRD) Af Amer 109 Est GFR (MDRD) Non-Af 90 BUN/Creatinine Ratio 14.0 Glucose 94 Lactic Acid 0.7 Calcium 9.1 Urine Color Urine Clarity Urine pH Ur Specific [place] Urine Protein Urine Glucose (UA) Urine Ketones Urine Occult Blood Urine Nitrite Urine Bilirubin Urine Urobilinogen Ur Leukocyte Esterase Urine RBC Urine WBC Ur Squamous Epith Cells Urine Bacteria Urine Mucus Urine Test 10/04/21 16:41 WBC RBC Hgb Hct MCV MCH MCHC RDW Std Deviation RDW Coeff of Reggie Plt Count MPV Immature Gran % (Auto) Neut % (Auto) Lymph % (Auto) [place] % (Auto) Eos % (Auto) Baso % (Auto) Absolute Neuts (auto) Absolute Lymphs (auto) Nucleated RBC % Sodium Potassium Chloride Carbon Dioxide Anion Gap BUN Creatinine Estim Creat Clear Calc Est GFR (MDRD) Af Amer Est GFR (MDRD) Non-Af BUN/Creatinine Ratio Glucose Lactic Acid Calcium Urine Color Yellow Urine Clarity Clear Urine pH 6.5 Ur Specific [place] 1.010 Urine Protein Negative Urine Glucose (UA) Normal Urine Ketones Negative Urine Occult Blood Negative Urine Nitrite Negative Urine Bilirubin Negative Urine Urobilinogen Normal Ur Leukocyte Esterase 25 H Urine RBC 0 SEEN Urine WBC 0 SEEN Ur Squamous Epith Cells 0 SEEN Urine Bacteria 0 SEEN Urine Mucus 0 SEEN Urine Test Negative Radiography Diagnostic Testing: Clinical Impression(s) from Imaging Studies Abdomen/Pelvis CT 10/04/21 17:34 IMPRESSION: Contracted thick-walled gallbladder without calcified stones likely physiologic however if concern for gallbladder disease ultrasound recommended. Small left ovarian cyst measuring approximately 1.75 x 2.5 cm. Pelvic sonogram would be useful for further assessment if clinically indicated. Electronically Signed: Wu Tavares MD at 17:59 EDT Reading Location ID and State: [facility] / [place] , Service support , Discharge Plan Triage Chief Complaint: Abd Pain ED Midlevel Provider: Je Oliveira ED Provider: Ilia Aleman Dx/Rx/DC Orders Clinical Impression: Left ovarian cyst, Pelvic pain Instructions: ED Ovarian Cyst Prescriptions: No Action metformin 500 mg tablet 500 mg PO DAILY RF: 0 Nexplanon 68 mg Implant SUBDERMAL RF: 0 Primary Care Provider: Wu Herrera Referrals: Elise Sweeney MD [STAFF PHYSICIAN] - 3-5 Days Wu Herrera MD [Primary Care Provider] - 5-7 Days Disposition Disposition: Home, Self Care
[2021-10-04 16:54] LABS: Bacteria 0 SEEN /hpf (None Seen); Mucous, Urine 0 SEEN /hpf (<or=2+); Red Blood Cells-Urine 0 SEEN /hpf (0-5); Squamous Epithelial Cells - UA 0 SEEN /hpf (5-10); White Blood Cells 0 SEEN /hpf (0-5)
[2021-10-04 17:19] LABS: Color, Urine Yellow (Yellow); Glucose, Dipstick Normal (Normal); Ketone-Dipstick Negative (Negative); Leukocyte Esterase-Dipstick 25 /ul (Negative); Nitrite-Dipstick Negative (Negative); Occult Blood-Urine Negative /ul (Negative); Protein-Dipstick Negative (Negative); Urine Bilirubin Dipstick Negative (Negative); Urine Clarity Clear (Clear); Urine Urobilinogen Normal (Normal); Urine pH 6.5 (5.0 - 8.0)
[2021-10-04 17:22] LABS: Internal QC Validated? YES +Cl - CLEAR BKGD; Pregnancy, Urine Negative Negative
--- NOTE | 2021-10-04 17:34 | CT_ITS ---
STUDY: CT ABDOMEN AND PELVIS WITH CONTRAST REASON FOR EXAM: Female, 20 years old. pelvic mass RADIATION DOSAGE (If Supplied By Facility): CTDIvol = ( 13.08 ) mGy, DLP = ( 852.45 ) mGycm TECHNIQUE: Transaxial images were obtained from the dome of the diaphragm to the symphysis pubis without oral contrast. IV 100mL Isovue-300 was administered. Sagittal and coronal images were reconstructed. Individualized dose optimization techniques were used for this CT. COMPARISON: 08/25/2018 FINDINGS: The visualized lung bases are unremarkable. The visualized portions of the heart are within normal limits. Normal liver. Contracted thick-walled gallbladder without calcified stones likely physiologic. Normal spleen. Normal pancreas. Normal bilateral adrenal glands. Normal right kidney. Normal left kidney. Normal visualized stomach. Normal small intestine. Mild diffuse fecal retention noted within the colon. No evidence for acute appendicitis.. Normal abdominal aorta. Normal inferior vena cava. Normal retroperitoneum. Normal urinary bladder. Small left ovarian cyst measuring approximately 2.5 x 1.75 cm. Normal abdominal wall. Normal osseous structures. CT/Abdomen/Pelvis W IV Cont ONLY IMPRESSION: Contracted thick-walled gallbladder without calcified stones likely physiologic however if concern for gallbladder disease ultrasound recommended. Small left ovarian cyst measuring approximately 1.75 x 2.5 cm. Pelvic sonogram would be useful for further assessment if clinically indicated. Electronically Signed: Wu Tavares MD at 17:59 EDT ,
[2021-10-04 18:38] VITALS: PULSE 67; RESP 18; O2SAT 99
== END 2021-10-04 18:39 | disposition home or self-care (01) ==
PROVIDERS: Nurse Practitioner; Emergency Provider Emergency Medicine; PCP Family Medicine; Visit Provider Emergency Medicine
DX: N83.202 Unspecified ovarian cyst, left side (principal); R10.2 Pelvic and perineal pain; F17.210 Nicotine dependence, cigarettes, uncomplicated; Z11.3 Encounter for screening for infections with a predominantly sexual mode of transmission; Z79.84 Long term (current) use of oral hypoglycemic drugs; Z79.899 Other long term (current) drug therapy
CPT/HCPCS: 74177; 80048; 81001; 81025; 83605; 85025; 87491; 87591; 99283; A4216

== ENCOUNTER 2021-11-02 13:16 | Emergency (ER) | payer MEDICAID, SELFPAY ==
[2021-11-02 13:18] VITALS: BP 124/69; PULSE 110; RESP 16; TEMP 36.6; O2SAT 99; BMI 36.2
--- NOTE | 2021-11-02 13:27 | EX.ED.DYSGE1 ---
HPI History of Present Illness Chief Complaint: Nausea/Vomiting Informant: patient Narrative Narrative: Patient states she started to get nausea and vomiting a while after she was up this morning. She states her mom had something recently but not sure if it was the same symptoms. She was fine yesterday. She cannot think of anything she ate or drank to cause this. She had soft stool but no diarrhea. No blood that she vomited or in any recent stools. She really is not having abdominal pain. She states she gets a little bit of intermittent cramping. No fevers or chills. No urinary symptoms. Nothing really makes it better or worse but she has not tried anything yet. [facility] Medical History Alcohol use disorder Alcohol withdrawal Anxiety disorder, unspecified Asthma Bipolar 1 disorder, depressed, severe Desire for detoxification GERD (gastroesophageal reflux disease) History of cocaine use Migraines Osteopenia Tobacco abuse Home Medications etonogestrel [Nexplanon] SUBDERMAL 05/15/21 [History Last Taken Unknown] metformin 500 mg tablet 500 mg PO DAILY 08/07/21 [History Last Taken Unknown] dicyclomine 20 mg PO TID #14 tab 11/02/21 [Rx Last Taken Unknown] hydroxyzine HCl 25 mg PO TID PRN 11/02/21 [History Last Taken Unknown] lamotrigine 25 mg PO DAILY 11/02/21 [History Last Taken Unknown] ondansetron 4 mg PO Q8H PRN #10 tab 11/02/21 [Rx Last Taken Unknown] propranolol 10 mg PO DAILY 11/02/21 [History Last Taken Unknown] Allergy/AdvReac Type Severity Reaction Status Date / Time No Known Allergies Allergy Verified 11/02/21 13:19 Family History Other COPD (chronic obstructive pulmonary disease) Social History Smoking Status: Current every day smoker tobacco type: cigarettes and e-cigarettes substance use type: does not use ROS ROS ED Constitutional Constitutional ED: Denies chills or fever(s) Eyes Eyes: Denies change in vision ENT ENT ED: Denies rhinorrhea Cardiovascular Cardiovascular: Denies chest pain or palpitations Respiratory/Chest Respiratory/Chest: Denies cough, dyspnea or sputum Gastrointestinal Gastrointestinal: Reports abdominal pain, diarrhea, nausea and vomiting Genitourinary Genitourinary ED: Denies dysuria or hematuria Musculoskeletal Musculoskeletal: Denies back pain Integumentary Denies rash Neurologic Neurologic: Denies headache(s) Endocrine Endocrinology: Denies polydipsia or polyuria Allergic/Immunologic Allergic/Immunologic ED: Denies mouth swelling or urticaria EXAM Physical Exam Const Vital Signs: 11/02/21 13:18 Temperature 98 F Temperature Source Temporal Pulse Rate 110 H Respiratory Rate 16 Blood Pressure 124/69 H Blood Pressure Mean 87 Pulse Ox 99 Oxygen Delivery Method Room Air Positive well nourished and well developed Constitutional Narrative: Patient actively retching when I walked in the room but no actual vomiting is occurring at this time. General Appearance ED: well developed; Negative for cyanotic or diaphoretic HEENT Negative for trauma Eyes General Eye ED: Negative for pale conjunctiva or scleral icterus Neck No no JVD Chest Wall inspection of chest normal Resp normal respiratory effort and clear to auscultation bilaterally Auscultation: Negative for rales, rhonchi or wheezes Cardio regular rate and regular rhythm GI normal to inspection, nondistended, normoactive bowel sounds, non-tender and non-distended Auscultation: normoactive bowel sounds Palpation: soft Back/Spine no CVA tenderness Extremity normal to inspection Neuro Sensorium / Orientation: alert Psych mental status grossly normal Skin no rashes or lesions noted MDM MDM MDM Narrative Medical decision making narrative: Initial history is unobtainable. Patient is having extremely forceful wretching without productivity of any material. She is not able to speak. She had told the nurse that she started with nausea vomiting this morning. We will initiate some medications to try to help her and get her better and then try to get a history from her. Patient CBC showed minimal elevation of her hemoglobin. This is a nonspecific finding. Electrolytes LFTs and lipase showed no marked abnormalities. was negative. Alcohol was 11. Tox screen was negative. Urine was not a clean-catch. No convincing evidence of UTI. Patient was rechecked. She is remarkably improved. She is calm and quiet. Her nausea is gone. Her abdomen is completely benign. I think we can get her home at this time. I do not think she needs imaging. She is comfortable with this plan. We did discuss reasons to return. Lab Data Attestation: I reviewed the patient's lab results. Labs: Laboratory Results - last 24 hr 11/02/21 11/02/21 11/02/21 13:30 13:30 13:30 WBC 7.0 RBC 4.81 Hgb 15.6 H Hct 46.3 MCV 96.3 MCH 32.4 H MCHC 33.7 RDW Std Deviation 45.1 H RDW Coeff of Reggie 12.6 Plt Count 273 MPV 9.6 Immature Gran % (Auto) 0.300 Neut % (Auto) 69.9 Lymph % (Auto) 21.8 [place] % (Auto) 7.3 Eos % (Auto) 0.3 Baso % (Auto) 0.4 Absolute Neuts (auto) 4.9 Absolute Lymphs (auto) 1.52 Nucleated RBC % 0 Sodium 139 Potassium 4.0 Chloride 109 H Carbon Dioxide 23.0 Anion Gap 7 BUN 8 Creatinine 0.79 Estim Creat Clear Calc 86.43 Est GFR (MDRD) Af Amer 119 Est GFR (MDRD) Non-Af 99 BUN/Creatinine Ratio 10.1 Glucose 102 Calcium 9.0 Total Bilirubin 0.60 AST 14 L ALT 29 Alkaline Phosphatase 81 Total Protein 8.3 H Albumin 4.4 Globulin 3.9 Albumin/Globulin Ratio 1.1 Lipase 118 Serum , Qual NEGATIVE Urine Color Urine Clarity Urine pH Ur Specific [place] Urine Protein Urine Glucose (UA) Urine Ketones Urine Occult Blood Urine Nitrite Urine Bilirubin Urine Urobilinogen Ur Leukocyte Esterase Urine RBC Urine WBC Ur Squamous Epith Cells Urine Bacteria Urine Mucus Urine Opiates Screen Urine Methadone Screen Ur Barbiturates Screen Ur Phencyclidine Scrn Ur Amphetamines Screen MDMA (Ecstasy) Screen U Benzodiazepines Scrn Urine Cocaine Screen U Cannabinoids Screen Ur Drug Screen Comment Ethyl Alcohol 11/02/21 11/02/21 11/02/21 13:30 13:35 13:35 WBC RBC Hgb Hct MCV MCH MCHC RDW Std Deviation RDW Coeff of Reggie Plt Count MPV Immature Gran % (Auto) Neut % (Auto) Lymph % (Auto) [place] % (Auto) Eos % (Auto) Baso % (Auto) Absolute Neuts (auto) Absolute Lymphs (auto) Nucleated RBC % Sodium Potassium Chloride Carbon Dioxide Anion Gap BUN Creatinine Estim Creat Clear Calc Est GFR (MDRD) Af Amer Est GFR (MDRD) Non-Af BUN/Creatinine Ratio Glucose Calcium Total Bilirubin AST ALT Alkaline Phosphatase Total Protein Albumin Globulin Albumin/Globulin Ratio Lipase Serum , Qual Urine Color Yellow Urine Clarity Sl. Cloudy Urine pH 6.5 Ur Specific [place] 1.015 Urine Protein 30 H Urine Glucose (UA) Normal Urine Ketones Negative Urine Occult Blood 25 H Urine Nitrite Negative Urine Bilirubin Negative Urine Urobilinogen Normal Ur Leukocyte Esterase 25 H Urine RBC 0-5 SEEN Urine WBC 5-10 SEEN Ur Squamous Epith Cells 10-25 SEEN Urine Bacteria 2+ Urine Mucus 1+ Urine Opiates Screen NEGATIVE Urine Methadone Screen NEGATIVE Ur Barbiturates Screen NEGATIVE Ur Phencyclidine Scrn NEGATIVE Ur Amphetamines Screen NEGATIVE MDMA (Ecstasy) Screen NEGATIVE U Benzodiazepines Scrn NEGATIVE Urine Cocaine Screen NEGATIVE U Cannabinoids Screen NEGATIVE Ur Drug Screen Comment Ethyl Alcohol 11.0 Discharge Plan Triage Chief Complaint: Nausea/Vomiting ED Provider: L[facility] Dx/Rx/DC Orders Clinical Impression: Nausea & vomiting Instructions: ED Vomiting (Adult) Prescriptions: New ondansetron 4 mg tablet,disintegrating 4 mg PO Q8H PRN (Reason: nausea and vomiting) Qty: 10 RF: 0 dicyclomine 20 mg tablet 20 mg PO TID Qty: 14 RF: 0 No Action metformin 500 mg tablet 500 mg PO DAILY RF: 0 Nexplanon 68 mg Implant SUBDERMAL RF: 0 lamotrigine 25 mg tablet 25 mg PO DAILY RF: 0 propranolol 10 mg tablet 10 mg PO DAILY RF: 0 hydroxyzine HCl 25 mg tablet 25 mg PO TID PRN (Reason: Anxiety) RF: 0 Primary Care Provider: Wu Herrera Referrals: Wu Herrera MD [Primary Care Provider] - 3-5 Days if not improving Disposition Disposition: Home, Self Care
[2021-11-02] MEDS: 0.9% Normal Saline 1,000 ML 1000 ML IV (13:30)
[2021-11-02] MEDS: Ondansetron 4 MG/2 ML Vial IV (13:30)
[2021-11-02 13:40] LABS: Absolute Lymphocyte Count 1.52 X10^3/uL (0.83-4.51); Absolute Neutrophil Count 4.9 X10^3/uL (2.0-7.7); Basophil# 0.03 X10^3/uL; Basophil% 0.4 % (0-1); Eosinophil# 0.02 X10^3/uL; Eosinophils% 0.3 % (0-5); Hematocrit 46.3 % (37-47); Hemoglobin 15.6 g/dL (12.0-15.0); Lymphocyte # 1.52 X10^3/ul (0.83-4.51); Lymphocyte % 21.8 % (19-41); Mean Corp Hgb Conc 33.7 g/dL (32-36); Mean Corpuscular Hgb 32.4 pg (27.0-32.0); Mean Corpuscular Volume 96.3 fL (81-99); Mean Platelet Vol. 9.6 fl (6.2-12.0); Monocyte# 0.51 X10^3/uL; Monocyte% 7.3 % (0-10); NRBC Flagged by Analyzer 0 % (0-5); Neutrophil # 4.88 X10^3/uL (2.7-7.7); Neutrophil % 69.9 % (47-70); Platelet Count 273 K/mm3 (150-450); RBC Distribution Width CV 12.6 % (11.6-14.6); RBC Distribution Width SD 45.1 fl (35.1-43.9); Red Blood Count 4.81 M/mm3 (4.2-5.4)
[2021-11-02 13:55] LABS: Color, Urine Yellow (Yellow); Glucose, Dipstick Normal (Normal); Ketone-Dipstick Negative (Negative); Leukocyte Esterase-Dipstick 25 /ul (Negative); Nitrite-Dipstick Negative (Negative); Occult Blood-Urine 25 /ul (Negative); Protein-Dipstick 30 mg/dl (Negative); Specific Gravity, Urine 1.015 (1.002-1.030); Urine Bilirubin Dipstick Negative (Negative); Urine Clarity Sl. Cloudy (Clear); Urine Urobilinogen Normal (Normal); Urine pH 6.5 (5.0 - 8.0)
[2021-11-02 13:58] LABS: White Blood Cells 5-10 SEEN /hpf (0-5)
[2021-11-02 13:59] LABS: Bacteria 2+ /hpf (None Seen); Red Blood Cells-Urine 0-5 SEEN /hpf (0-5); Squamous Epithelial Cells - UA 10-25 SEEN /hpf (5-10)
[2021-11-02 14:00] LABS: Mucous, Urine 1+ /hpf (<or=2+)
[2021-11-02 14:09] LABS: Internal QC Validated? YES +Cl - CLEAR BKGD; Pregnancy, Serum, hCG Quali. NEGATIVE Negative
[2021-11-02 14:18] LABS: ALB/GLOB Ratio 1.1 RATIO (0.9-2.4); AST(SGOT) 14 U/L (15-37); Alanine Aminotransfer ALT/SGPT 29 U/L (13-56); Albumin, Serum 4.4 g/dL (3.2-5.0); Alkaline Phosphatase 81 U/L (45-117); Anion Gap 7 (5-15); BUN 8 mg/dL (7-18); BUN/Creat Ratio 10.1 RATIO (10-20); Chloride 109 mmol/L (98-107); Creatinine, Serum 0.79 mg/dL (0.55-1.02); EST Glomerular Filtration Rate 99 mL/min (>60); Est Glom Filt Rate - Afr Amer 119 mL/min (>60); Estimated Creatinine Clearance 86.43 ml/min; Globulin 3.9 g/dL (2.2-4.2); Glucose 102 mg/dL (74-106); Lipase 118 U/L (73-393); Protein, Total 8.3 g/dL (6.4-8.2); Sodium Level 139 mmol/L (136-145)
[2021-11-02 14:25] LABS: Amphetamine Urine VISTA NEGATIVE (<1000 ng/mL); Barbiturate Urine VISTA NEGATIVE (< 200 ng/mL); Benzodiazepine Urine VISTA NEGATIVE (< 200 ng/mL); Cocaine Urine VISTA NEGATIVE (< 300 ng/mL); Ecstacy Urine VISTA NEGATIVE (< 500 ng/mL); Methadone Urine VISTA NEGATIVE (< 300 ng/mL); PCP Urine VISTA NEGATIVE (< 25 ng/mL); THC Urine VISTA NEGATIVE (< 50 ng/mL); Vista UDS pH Range 6
== END 2021-11-02 15:47 | disposition home or self-care (01) ==
PROVIDERS: Emergency Provider Emergency Medicine; PCP Family Medicine; Visit Provider Emergency Medicine
DX: R11.2 Nausea with vomiting, unspecified (principal); F17.210 Nicotine dependence, cigarettes, uncomplicated; K21.9 Gastro-esophageal reflux disease without esophagitis; F41.9 Anxiety disorder, unspecified; Z79.899 Other long term (current) drug therapy
CPT/HCPCS: 80053; 80307; 81001; 82077; 83690; 84703; 85025; 96365; 96375; 99282; J7030; A4216; J2405; J3490

== ENCOUNTER 2021-12-11 21:04 | Emergency (ER) | payer MEDICAID, SELFPAY ==
[2021-12-11 21:05] VITALS: BP 121/77; PULSE 99; RESP 16; TEMP 36.8; O2SAT 97; BMI 30.7
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
[2021-12-11] MEDS: Propranolol 10 MG Tablet PO (21:33)
[2021-12-11] MEDS: LORazepam 0.5 MG Tablet PO (21:33)
[2021-12-11 21:35] VITALS: BP 121/77; PULSE 99; RESP 16; O2SAT 97
== END 2021-12-11 21:36 | disposition home or self-care (01) ==
PROVIDERS: Emergency Provider Emergency Medicine; PCP Family Medicine; Visit Provider Emergency Medicine
DX: F41.9 Anxiety disorder, unspecified (principal); F17.210 Nicotine dependence, cigarettes, uncomplicated; Z79.899 Other long term (current) drug therapy
CPT/HCPCS: 99283

== ENCOUNTER 2022-03-19 20:57 | Emergency (ER) | payer MEDICAID, SELFPAY ==
[2022-03-19 20:59] VITALS: BP 128/72; PULSE 73; RESP 16; TEMP 36.4; O2SAT 98; BMI 28.3
--- NOTE | 2022-03-19 23:19 | EDS_ITS ---
HPI History of Present Illness Chief Complaint: Allergic Reaction Narrative Narrative: Patient is a 21-year-old female with history of bipolar disorder. She states she is on Lamictal secondary to this and has been on it for approximately 2 months. She states that she has been taking the medication as directed and denies any other exposures or new medications or change in dosage. She reports that this evening she noticed a splotchy rash to the left upper back. She states it is mildly pruritic. She denies any known exposures but was informed that if she develops a rash or on Lamictal she should be seen in the hospital and therefore comes in for evaluation. Patient otherwise has no complaints at this time. [facility] Medical History Alcohol use disorder Alcohol withdrawal Anxiety disorder, unspecified Asthma Bipolar 1 disorder, depressed, severe Desire for detoxification GERD (gastroesophageal reflux disease) History of cocaine use Migraines Osteopenia Tobacco abuse Home Medications etonogestrel 68 mg subdermal implant (Nexplanon) subdermal control 05/15/21 [History Last Taken Unknown] lamotrigine 25 mg tablet 25 mg PO DAILY 11/02/21 [History Last Taken Unknown] propranolol 10 mg tablet 10 mg PO DAILY 11/02/21 [History Last Taken Unknown] desonide 0.05 % topical cream 1 applic topical TID rash/itch 10 days #60 grams 03/19/22 [Rx Last Taken Unknown] Allergy/AdvReac Type Severity Reaction Status Date / Time No Known Allergies Allergy Verified 03/19/22 21:01 Family History Other COPD (chronic obstructive pulmonary disease) Social History Smoking Status: Current every day smoker tobacco type: cigarettes and e- cigarettes substance use type: does not use ROS ROS ED Constitutional Constitutional ED: Denies chills or fever(s) ENT ENT ED: Denies sore throat Cardiovascular Cardiovascular: Denies chest pain Respiratory/Chest Respiratory/Chest: Denies cough or dyspnea Gastrointestinal Gastrointestinal: Denies abdominal pain, diarrhea, nausea or vomiting Genitourinary Genitourinary ED: Denies dysuria Musculoskeletal Musculoskeletal: Denies myalgias Integumentary Reports rash Neurologic Neurologic: Denies headache(s) Hematologic/Lymphatic Hematologic/Lymphatic: Denies easy bleeding or easy bruising EXAM Physical Exam Const Vital Signs: 03/19/22 20:59 Temperature 97.6 F L Temperature Source Temporal Pulse Rate 73 Respiratory Rate 16 Blood Pressure 128/72 H Blood Pressure Mean 90 Pulse Ox 98 Oxygen Delivery Method Room Air Positive well nourished and well developed General Appearance ED: well developed HEENT Reports moist mucous membranes HEENT Narrative: No tongue or lip swelling no oral lesions no airway edema or compromise Eyes PERRL and EOMs intact bilaterally Neck supple Resp normal respiratory effort and clear to auscultation bilaterally Cardio regular rate and regular rhythm Extremity normal to inspection Neuro oriented x3 and CN's II-XII intact bilaterally Sensorium / Orientation: alert Motor Exam: strength 5/5 throughout Psych mental status grossly normal Skin Skin Narrative: Patient has a flat erythematous circular rash across the left shoulder blade region of the back. No vesicular pustule changes noted. No urticaria changes noted. No obvious surrounding cellulitis or lymphangitic streaking. No involvement of the palms or soles. MDM MDM MDM Narrative Medical decision making narrative: Patient presented to the ER with stable vitals and no signs of respiratory distress. The lesions do not correlate with Hakeem Wander's toxic epidermal necrolysis or DRESS syndrome which can occur within 8 weeks of being on Lamictal. At this time as she is afebrile without oral lesions and in no respiratory distress I do not feel there is need for any type of emergent treatment in the ER. As there is a possibility this is coincidental I will start the patient on a topical steroid cream to see if this reduces the rash. She agrees to see your psychiatrist to discuss possible stopping Lamictal as this could be the cause of her rash but as there is no signs of the above life- threatening illnesses there is no need for further work-up and patient is otherwise safe for discharge. Discharge Plan Triage Chief Complaint: Allergic Reaction ED Provider: Gustavo Rosado Dx/Rx/DC Orders Clinical Impression: Dermatitis, Allergic reaction, Bipolar disorder Instructions: Allergy Overview Prescriptions: New desonide 0.05 % cream 1 applic topical TID 10 Days Qty: 60 0RF No Action Nexplanon 68 mg Implant SUBDERMAL lamotrigine 25 mg tablet 25 mg PO DAILY Label Comments: take 1 tablet by mouth at bedtime EACH NIGHT FOR MOOD STABILIZATION propranolol 10 mg tablet 10 mg PO DAILY Label Comments: take 1 tablet by mouth once daily Primary Care Provider: Wu Herrera Referrals: Wu Herrera MD [Primary Care Provider] - Activity Restrictions/Additional Instructions: Please talk to your psychiatrist about stopping Lamictal. The rash associated with taking Lamictal can appear within 8 weeks after starting the medication. However at this time the rash is mild and it does not show changes consistent with Kong-Wander syndrome, toxic epidermal necrolysis, or DRESS syndrome. Monitor yourself for development of a fever over 100.4 worsening of the rash and progression to involvement of your oral mucosa. Please return to the ER should you have any further concerns Disposition Disposition: Home, Self Care Discharge Date/Time: 03/19/22 23:29
== END 2022-03-19 23:29 | disposition home or self-care (01) ==
PROVIDERS: Emergency Provider Emergency Medicine; PCP Family Medicine; Visit Provider Emergency Medicine
DX: L30.9 Dermatitis, unspecified (principal); F31.9 Bipolar disorder, unspecified; T78.40XA Allergy, unspecified, initial encounter; F17.210 Nicotine dependence, cigarettes, uncomplicated; X58.XXXA Exposure to other specified factors, initial encounter
CPT/HCPCS: 99282

== ENCOUNTER 2022-04-07 11:45 | Emergency (ER) | payer MEDICAID, SELFPAY ==
[2022-04-07 11:47] VITALS: BP 125/72; PULSE 84; RESP 18; TEMP 36.1; O2SAT 97; BMI 30.2
--- NOTE | 2022-04-07 12:16 | EDS_ITS ---
HPI History of Present Illness Chief Complaint: Nausea/Vomiting Informant: patient Narrative Narrative: Increasing nausea vomiting x2 today. No hematemesis. No diarrhea. No abdominal pain. Patient been on naltrexone treatment for alcohol dependence for the last 2 months followed by 180. She was at the [facility] center this morning when she had her symptoms. She admitted to drinking heavy alcohol this past Thursday 3 days ago. None since. She ran out of her Zofran. Still he states it works. She had to leave [facility]. Last menstrual period was over a year ago states she is infertile followed by gynecology Dr. Davenport. Denies fevers. Denies urinary symptoms. Prior similar symptoms: Yes PFSH PFS Medical History Alcohol use disorder Alcohol withdrawal Anxiety disorder, unspecified Asthma Bipolar 1 disorder, depressed, severe Desire for detoxification GERD (gastroesophageal reflux disease) History of cocaine use Migraines Osteopenia Tobacco abuse Home Medications etonogestrel 68 mg subdermal implant (Nexplanon) subdermal control 05/15/21 [History Last Taken Unknown] lamotrigine 25 mg tablet 25 mg PO DAILY 11/02/21 [History Last Taken Unknown] propranolol 10 mg tablet 10 mg PO DAILY 11/02/21 [History Last Taken Unknown] desonide 0.05 % topical cream 1 applic topical TID rash/itch 10 days #60 grams 03/19/22 [Rx Last Taken Unknown] ondansetron 4 mg disintegrating tablet 4 mg PO Q6H PRN nausea and vomiting #20 tabs 04/07/22 [Rx Last Taken Unknown] Allergy/AdvReac Type Severity Reaction Status Date / Time No Known Allergies Allergy Verified 03/19/22 21:01 Family History Other COPD (chronic obstructive pulmonary disease) Social History Smoking Status: Current every day smoker tobacco type: cigarettes and e- cigarettes substance use type: does not use ROS ROS ED Constitutional Constitutional ED: Denies chills, fever(s) or sweats Eyes Eyes: Denies change in vision ENT ENT ED: Denies dysphagia or sore throat Cardiovascular Cardiovascular: Denies chest pain, leg edema, palpitations or racing heartbeat Respiratory/Chest Respiratory/Chest: Denies cough, dyspnea or dyspnea on exertion Gastrointestinal Gastrointestinal: Reports nausea and vomiting; Denies abdominal pain or diarrhea Genitourinary Genitourinary ED: Denies dysuria, hematuria or urinary frequency Musculoskeletal Musculoskeletal: Denies back pain, extremity pain or neck pain Integumentary Denies rash or wounds Neurologic Neurologic: Denies headache(s), paresthesias or weakness EXAM Physical Exam Const Vital Signs: 04/07/22 11:47 04/07/22 13:45 Temperature 97 F L Temperature Source Temporal Pulse Rate 84 71 Respiratory Rate 18 15 Blood Pressure 125/72 H 108/64 Blood Pressure Mean 89 Pulse Ox 97 98 Oxygen Delivery Method Room Air Positive well nourished and well developed General Appearance ED: well developed and NAD HEENT Reports moist mucous membranes normocephalic and atraumatic Eyes PERRL, EOMs intact bilaterally and conjunctivae normal General Eye ED: Yes normal appearance of both eyes Neck no lymphadenopathy and supple General: Negative for tenderness Chest Wall Chest: Negative for tenderness Resp normal respiratory effort and normal air movement Effort and Inspection: symmetric chest movement; Negative for respiratory distress Cardio regular rate, regular rhythm and no murmurs Peripheral Pulses: pulses 2+ throughout GI normal to inspection, nondistended, normoactive bowel sounds and non-tender GI Narrative: Negative Gaspar's or McBurney's tenderness. Palpation: Negative for guarding or rebound tenderness present Back/Spine no CVA tenderness and no thoracic nor lumbar tenderness Extremity normal to inspection General Extremety ED: Negative for edema or tenderness General Extremity: Negative for edema Neuro oriented x3 and no sensory deficits noted Sensorium / Orientation: awake and alert Skin no rashes or lesions noted and no wounds MDM MDM MDM Narrative Medical decision making narrative: Patient vital stable moist mucosal membranes soft abdomen. History of similar, vomiting x2 today with no hematemesis. She is out of her Zofran. hCG negative. Treated with oral Zofran tolerate oral fluids. She is feeling better. Prescription of Zofran, discussed alcohol abstinence with her treatment. She will follow-up as an outpatient. All questions were answered. Lab Data Labs: Laboratory Results - last 24 hr 04/07/22 12:25 Urine Test Negative Discharge Plan Triage Chief Complaint: Nausea/Vomiting ED Provider: Roly Abarca Dx/Rx/DC Orders Clinical Impression: Nausea & vomiting, Alcohol use disorder, History of anxiety Instructions: ED Diet Vomiting Diarrhea Prescriptions: New ondansetron 4 mg tablet,disintegrating 4 mg PO Q6H PRN (Reason: nausea and vomiting) Qty: 20 0RF No Action Nexplanon 68 mg Implant SUBDERMAL lamotrigine 25 mg tablet 25 mg PO DAILY Label Comments: take 1 tablet by mouth at bedtime EACH NIGHT FOR MOOD STABILIZATION propranolol 10 mg tablet 10 mg PO DAILY Label Comments: take 1 tablet by mouth once daily desonide 0.05 % cream 1 applic topical TID 10 Days Qty: 60 0RF Primary Care Provider: Wu Herrera Referrals: Wu Herrera MD [Primary Care Provider] - 5-7 Days Disposition Disposition: Home, Self Care Discharge Date/Time: 04/07/22 13:45
[2022-04-07] MEDS: Ondansetron ODT 4 MG Tablet PO (12:19)
[2022-04-07 12:35] LABS: Internal QC Validated? YES +Cl - CLEAR BKGD; Pregnancy, Urine Negative Negative
[2022-04-07 13:45] VITALS: BP 108/64; PULSE 71; RESP 15; O2SAT 98
== END 2022-04-07 13:45 | disposition home or self-care (01) ==
PROVIDERS: Emergency Provider Emergency Medicine; PCP Family Medicine; Visit Provider Emergency Medicine
DX: R11.2 Nausea with vomiting, unspecified (principal); F17.210 Nicotine dependence, cigarettes, uncomplicated
CPT/HCPCS: 81025; 99284

== ENCOUNTER 2022-09-30 08:00 | Outpatient (RCR) | payer OTHER, SELFPAY ==
--- NOTE | 2022-09-30 09:05 | BH.SGPN.GN ---
Behaviors/Verbalizations/Mental Status: []Eye contact good, casually dressed, motor activity appropriate, speech normal rate and tone, mood depressed and agitated, congruent affect, thoughts linear and intact, no evidence of delusions or hallucinations. Reviewed pt's symptom tracker, pt suicidal ideation within established baseline, denies any plan or intent. Future oriented. Client Response/Progress/Benefit: []Pt first day in IOP tx. She responded well to session, attentive and willing to process with group. Shared this is her third IOP tx program this year and was in two previous groups for substance abuse tx. Pt went on to discuss that she has been able to maintain 9 months sobriety and feels this important for her to continue to maintain. Shared wanting to work on identifying skills for coping with distress and better regulating her emotions now that she is sober. Responded well to and appeared to benefit from the supportive structure and encouragement of the group. Recommended continued IOP tx to improve mood stability, increase healthy coping repertoire, and prevent decompensation. Narrative Note: []
--- NOTE | 2022-09-30 10:15 | BH.SGPN.GN ---
Behaviors/Verbalizations/Mental Status: []Pt alert and oriented, neatly dressed and groomed. Eye contact good. Motor activity appropriate. Speech within normal limits. Affect flat, mood depressed and anxious. Thoughts linear, logical, no signs of hallucinations or delusions. Client Response/Progress/Benefit: []Pt responded well to session AEB contributing to discussion, taking notes, and listening attentively to others. Group discussed the benefits of managed anger and anger as a secondary emotion. Pt often nodding at peers? comments on benefits of anger. ?Pt completed worksheet on anger triggers and personal warning signs of anger. Pt identified their biggest triggers as traffic, being ?trapped emotionally or physically,? and gaslighting. Appeared to benefit from increased knowledge of the anger cycle as well as personal triggers. First day of IOP tx. Will continue IOP tx to prevent decompensation, increase use of healthy coping skills, and improve daily functioning. Narrative Note: []
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
[2022-10-01 10:15] VITALS: BP 121/74; PULSE 64
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
--- NOTE | 2022-10-01 13:32 | BH.DR.ITP ---
Initial Treatment Plan Patient Information Visit Information: ADMISSION DATE: EXPECTED LOS: 4-6 weeks Problems/Symptoms Problem #1:: Mood instability Symptom:: Depression, sadness, irritability, low energy, decreased concentration, guilt, anhedonia Problem #2:: Anxiety Symptom:: Worry, rumination, nightmares, flashbacks, reexperiencing, avoidance
--- NOTE | 2022-10-03 09:05 | BH.SGPN.GN ---
Behaviors/Verbalizations/Mental Status: []Pt alert and oriented, neatly dressed and groomed. Eye contact fair. Motor activity appropriate. Speech within normal limits. Affect constricted, mood anxious and depressed. Thoughts linear, logical, no signs of hallucinations or delusions. Reviewed pt?s symptom tracker, no risk for suicidal ideation, plan, or intent as of 10/03/22 Client Response/Progress/Benefit: []Pt responded well to session, attentive and engaged. Pt reports feeling all the feelings this morning. Pt shared her biggest stressor today is that she is noticing behaviors and thoughts she used to have when her eating disorder was in full force. Pt stated she is working on using healthy coping skills to curb urges to restrict and pt is paying attention to the APPs she downloads on her phone. Pt's mental health wins today include cleaning last night and getting her blood work done today even though it gives pt anxiety. Pt appeared to benefit from reflecting on her use of skills. Pt will continue IOP tx to promote mood stability, reduce isolation, and increase distress tolerance skills. Narrative Note: []
--- NOTE | 2022-10-03 10:10 | BH.SGPN.GN ---
Behaviors/Verbalizations/Mental Status: [] Client alert and oriented, casually dressed and groomed. Eye contact good. Motor activity appropriate. Speech within normal limits. Affect congruent, mood euthymic. Thoughts linear, logical, no signs of hallucinations or delusions. Client Response/Progress/Benefit: [] Client responded well to session AEB sharing and listening attentively to others. Client with group provided examples of benefits of having social support which included having someone to vent to, getting direction, and having people there to catch you when you fall. Client identified IOP currently being a form of support for them. Client participated in experiential activity illustrating the importance of having multiple social supports. Client provided supportive feedback and problem solving throughout group activity. Client participated in group processing of the activity, stating that having a stronger foundation helps prevent the number of times you fall. Client appeared to benefit from increased knowledge of the benefits of social support and greater self-awareness. Will continue IOP treatment to increase positive thought patterns, prevent decompensation, and increase overall functioning. Narrative Note: []
--- NOTE | 2022-10-03 11:15 | BH.SGPN.GN ---
Behaviors/Verbalizations/Mental Status: [] Client alert and oriented, casually dressed and groomed. Eye contact good. Motor activity appropriate. Speech within normal limits. Affect congruent, mood euthymic. Thoughts linear, logical, no signs of hallucinations or delusions. Client Response/Progress/Benefit: [] Client was an active participant throughout AEB contributing to discussion, providing personal examples, and taking notes. Client provided input during discussion on the types of support our supports can provide. Client able to identify current support system and barriers that get in the way of using supports by drawing out their own support net. Client reported after identifying what type of supports they receive; they gained awareness that they could benefit from more social supports. Client identified steps to achieve this by going back to AA group, attending small business events, and going to the library. Client seemed to benefit from identifying the type of support client needs to work on improving. Client recommended to continue IOP tx to prevent decompensation, reduce isolation, and increase emotional regulation skills. Narrative Note: []
--- NOTE | 2022-10-08 09:03 | BH.SGPN.GN ---
Behaviors/Verbalizations/Mental Status: []Pt alert and oriented, neatly dressed and groomed. Eye contact good. Motor activity appropriate. Speech within normal limits. Affect congruent, mood calm. Thoughts linear, logical, no signs of hallucinations or delusions. Reviewed pt?s symptom tracker, no risk for suicidal ideation, plan, or intent as of 10/08/22 Client Response/Progress/Benefit: []Pt responded well to session, attentive and engaged. Pt reports feeling content this morning. Pt shared her biggest stressor right now is the upcoming holiday as pt knows she will have to set boundaries with family. Pt is taking her medications consistently, but pt reports that the lithium is making her tired. Pt reminded that this could be a brief side effect and could hernandez off, but if it does not to talk with IOP staff. Pt's mental health wins today include getting to IOP tx and finding out that pt does not have to testify. Pt will continue IOP tx to increase distress tolerance skills, increase self-compassion, and reduce isolation. Narrative Note: []
--- NOTE | 2022-10-08 10:05 | BH.SGPN.GN ---
Behaviors/Verbalizations/Mental Status: []Client alert and oriented, casually dressed and groomed. Eye contact good. Motor activity appropriate. Speech normal, quiet. Affect constricted, mood anxious, depressed, agitated. Thoughts linear, logical, no signs of hallucinations or delusions. Client Response/Progress/Benefit: []Client reports she is still getting adjusted to group environment and accepting her need for tx. Was an engaged participant AEB client listening and taking notes throughout, with assistance she participated in small group discussion. Attentive during psychoeducation on communication styles. Assisted group with identifying barriers of effective communication which included: assuming, shutting down, dominating the conversation, and using text to communicate. Benefited from increased awareness of different communication barriers, styles, and the importance of communicating effectively to improve mental wellness. Will continue IOP tx to increase overall functioning, improve ability to manage grief, and prevent decompensation. Narrative Note: []
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
== END 2022-10-10 23:59 ==
LOC: BHIOP 08:00
PROVIDERS: PCP Family Medicine; Referring Provider Psychiatry & Neurology Psychiatry; Visit Provider Psychiatry & Neurology Psychiatry
DX: F31.32 Bipolar disorder, current episode depressed, moderate (principal); F41.1 Generalized anxiety disorder; F43.10 Post-traumatic stress disorder, unspecified; F10.91 Alcohol use, unspecified, in remission; F12.91 Cannabis use, unspecified, in remission; F14.91 Cocaine use, unspecified, in remission; Z79.899 Other long term (current) drug therapy
CPT/HCPCS: 90792; H2012; H2020; S9480; T1002; 90832; 90837

== ENCOUNTER → 2022-10-03 | Outpatient (CLI) | payer MEDICAID, SELFPAY ==
[2022-10-03 09:21] LABS: Albumin, Serum 4.1 g/dL (3.2-5.0); BUN 8 mg/dL (7-18); BUN/Creat Ratio 10.7 RATIO (10-20); Chloride 109 mmol/L (98-107); Creatinine, Serum 0.75 mg/dL (0.55-1.02); EST Glomerular Filtration Rate 104 mL/min (>60); Est Glom Filt Rate - Afr Amer 126 mL/min (>60); Glucose 108 mg/dL (74-106); Phosphorus 3.5 mg/dL (2.5-4.9); Potassium 3.5 mmol/L (3.5-5.1); Sodium Level 142 mmol/L (136-145); Thyroid Stim Hormone (TSH) 1.24 uIU/mL (0.358-3.74)
--- NOTE | 2022-10-22 11:03 | BH.COMM ---
Communication Note - Communication with Client Communication Note: Met with client at this time to discuss how she has been feeling since starting the [place]. Client states she feels she is reacting better to stressful situations, but then later in the conversation states she feels her agitation has not improved much (example, wanting to yell at her neighbors for their barking dogs). Client has been having GI upset since April and has been having constipation and taking Zofran regularly since then. Client states her constipation is worse now and urgent care told her to stop taking Zofran due to constipation so her nausea is worse. Client states she has an appointment with GI later this month. Discussed with client lab work to be done and lab paperwork given to her and instructed on timing of labs for [place] trough. Discussed client's complaints of ongoing agitation with Dr. Diaz and reviewed current medications- client will be seen next week after lab work is done.
== END | disposition home or self-care (01) ==
LOC: LAB 07:52
PROVIDERS: PCP Family Medicine; Referring Provider Psychiatry & Neurology Psychiatry; Visit Provider Psychiatry & Neurology Psychiatry
DX: Z79.899 Other long term (current) drug therapy (principal)
CPT/HCPCS: 36415; 80069; 84443

== ENCOUNTER 2022-10-13 08:20 | Outpatient (RCR) | payer OTHER, SELFPAY ==
[2022-10-11 02:22] VITALS: BP 121/74; PULSE 64
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
--- NOTE | 2022-10-14 10:15 | BH.SGPN.GN ---
Behaviors/Verbalizations/Mental Status: []Eye contact is good. Motor activity is appropriate. Appearance is casual. Speech is Appropriate. Mood is depressed and anxious. Affect is congruent. Thoughts are linear and logical. No evidence of psychosis. Client Response/Progress/Benefit: []Pt was an active participant in group discussions, this is progress in level of engagement compared with prior groups. Attentive during psychoeducation. Participated during interactive discussions in which peers attempted to define crisis. Pt identified several examples of potential crisis. Group also worked together to identify unhealthy responses to crisis which included; isolation, self-harm, overuse of distraction, avoidance, and lashing out. Pt identified she often responds with use of avoidance or in the past has turned to substance use to avoid dealing with crisis. Benefited from increased understanding of crisis and awareness of personal responses to crisis. Pt will continue IOP tx to further improve distress tolerance skills, maintain mood stability, and prevent decompensation. Narrative Note: []
--- NOTE | 2022-10-14 11:15 | BH.SGPN.GN ---
Behaviors/Verbalizations/Mental Status: []Client alert and oriented, casually dressed and groomed. Eye contact fair. Motor activity appropriate. Speech within normal limits. Affect constricted, mood dysthymic. Thoughts linear, logical, no signs of hallucinations or delusions. Client Response/Progress/Benefit: []Client responded well to session as evidenced by client listening attentively to others and providing strategies during small group discussion. Connected as fellow participants discussed the importance of identifying and addressing personal warning signs. Client identified warning signs for crisis and gained further awareness of earliest warning signs. Client created a crisis action plan to help client better manage warning signs for crisis. Client?s action plan for skipping medications when feeling better: have a list of why needs to take medications, list of consequences of being off medications, and accountability yasmine. Client appeared to benefit from creating a crisis action plan and increasing self-awareness. Client to continue IOP tx to increase consistent use of healthy coping skills, challenge distorted thoughts and prevent decompensation.
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
--- NOTE | 2022-10-17 10:15 | BH.SGPN.GN ---
Behaviors/Verbalizations/Mental Status: []Pt alert and oriented, casually dressed and groomed. Eye contact good. Motor activity appropriate. Speech within normal limits. Affect congruent, mood depressed and anxious. Thoughts linear, logical, no signs of hallucinations or delusions. Client Response/Progress/Benefit: []Pt was an engaged participant AEB providing input, listening to others, and taking notes. Participated in interactive group discussion on internal and external barriers to mental health progress. Pt described current reality using a person metaphor. Pt shared feeling like ?the outside of me doesn?t reflect the inside, I don?t feel connected to myself or others?. Reported desired reality is being able to more consistently use grounding and journaling skills to reach out to her supports in order to feel more connected, as well as improve the relationship with herself. Pt shared personal barriers to desired realty include: fear of the unknow, overthinking, and not giving herself credit. Benefited from increased awareness of current barriers to progress as well as current/desired realities. Pt to continue IOP to prevent decompensation, improve daily functioning, and increase use of healthy coping skills. ? Narrative Note: []
--- NOTE | 2022-10-17 11:10 | BH.SGPN.GN ---
Behaviors/Verbalizations/Mental Status: []Client alert and oriented, casually dressed and groomed. Eye contact good. Motor activity appropriate. Speech within normal limits. Affect congruent to topics being discussed, mood euthymic. Thoughts linear, logical, no signs of hallucinations or delusions. Client Response/Progress/Benefit: []Client an active participant, encouraging peers and contributed as group brainstormed ideas on how to cope with internal barriers that keep clients stuck from moving towards goals. Able to identify barriers to desired reality. Worked with group to identify strategies to help overcome barriers. Identified personal barriers to desired reality. Client wants to work on overcoming the barrier of feeling disconnected by journaling. Benefited from group by identifying obstacles and solutions to desired reality. Client to continue IOP to increase healthy coping, challenge negative thoughts, and prevent decompensation.
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
--- NOTE | 2022-10-22 10:10 | BH.SGPN.GN ---
Behaviors/Verbalizations/Mental Status: []Pt alert and oriented, neatly dressed and groomed. Eye contact good. Motor activity appropriate. Speech within normal limits. Affect constricted, mood content. Thoughts linear, logical, no signs of hallucinations or delusions. Client Response/Progress/Benefit: []Pt was an active participant in group discussion and activity. Attentive during psychoeducation. Along with peers was able to identify barriers to taking action. Identified several symptoms and stressors that she feels are holding her back from progress such as valuing others' expectations more than her own and negative thinking. Stated these things have kept pt from trying new things and making changes in her life. Benefited from increased self-awareness of obstacles. Will continue IOP tx to promote mood stability, increase application of healthy coping skills, and reduce negative thinking patterns. Narrative Note: []
--- NOTE | 2022-10-22 11:05 | BH.COMM ---
Communication Note - Communication with Client Communication Note: Met with client at this time to discuss how she has been feeling since starting the [place]. Client states she feels she is reacting better to stressful situations, but then later in the conversation states she feels her agitation has not improved much (example, wanting to yell at her neighbors for their barking dogs). Client has been having GI upset since April and has been having constipation and taking Zofran regularly since then. Client states her constipation is worse now and urgent care told her to stop taking Zofran due to constipation so her nausea is worse. Client states she has an appointment with GI later this month. Discussed with client lab work to be done and lab paperwork given to her and instructed on timing of labs for [place] trough. Discussed client's complaints of ongoing agitation with Dr. Diaz and reviewed current medications- client will be seen next week after lab work is done.
--- NOTE | 2022-10-22 11:10 | BH.SGPN.GN ---
Behaviors/Verbalizations/Mental Status: []Client alert and oriented, casually dressed and groomed. Eye contact good. Motor activity appropriate. Speech within normal limits. Affect congruent, mood euthymic. Thoughts linear, logical, no signs of hallucinations or delusions. Client Response/Progress/Benefit: []Client responded well to session, taking notes and participating in worksheet discussion. Client connected with the zones of action/change and that making sustainable change comes from stepping out of one?s comfort zone into the learning zone. Client set a goal to gain control over fear of judgement. Client worked with group to create a goal and identify supports that would aid in reducing the control fear of judgement has over her; however, opted not to share aloud. Appeared to benefit from identifying a small goal to benefit mental health. Will continue IOP tx to increase healthy coping, promote mood stability, and prevent decompensation. Narrative Note: []
--- NOTE | 2022-10-22 14:55 | BH.MTP_ITS ---
Treatment Plan Review Date of Admission:: 09/30/22 Date of Treatment Plan Review:: 10/22/22 Admitting Diagnoses:: Bipolar 1 disorder, most recent episode depressed, moderate F 31.32; Generalized anxiety disorder; PTSD; Strong cluster B traits; Alcohol use disorder in remission on Vivitrol for 8 months; History of cocaine and marijuana use disorder Current Diagnoses:: Bipolar 1 disorder, most recent episode depressed, moderate F 31.32; Generalized anxiety disorder; PTSD; Strong cluster B traits; Alcohol use disorder in remission on Vivitrol for 8 months; History of cocaine and marijuana use disorder Patient's Response to Treatment:: Pt has responded well to treatment AEB pt consistently attending IOP sessions and reduction of overall symptoms on the DSM-5 by 12% since admission. Pt's depressive symptoms have reduced by 60% and anxiety by 30% since admission. Pt contributes during individual sessions and she is engaged during group sessions. Pt applies coping skills outside of IOP and reports medication compliance. Pt is consistent with her goals per her self- report. Status of Current Problems and Symptoms: Pt's biggest stressor continues to be the court case coming up in November. Pt is considering giving a personal statement, but fears her anxiety will be too overwhelming. Pt also reports ongoing eating disorder triggers, but pt reports managing these well. Pt still mckenna with grief and difficulty with acceptance, and issues with fatigue. Problem #1 Problem Name:: Depression, guilt, hopelessness, irritability, and lack of motivation Status of Goals:: Objective 1- complete with ongoing work encouraged. Pt?s DSM-5 for depression has decreased by 60% since admission. However, pt does report issues with frequent fatigue, but pt feels it could be due to taking her medication late at night. Objective 2- in progress. Pt reports following through with her goals of getting out of the house and walking to improve mood. Pt can continue to reinforce behavioral activation strategies. Team Recommendations:: Treatment tx encourages pt to continue working on this tx goal as pt has significant made progress, but she can continue to reduce intensity of depressive symptoms. Pt also can benefit from challenging distortions and giving herself credit more consistently. Problem #2 Problem Name:: irritability, panic, and PTSD Status of Goals:: Objective 1- in progress. Pt is gaining insight to how her thoughts and behaviors impact her overall mental health and emotions. Pt is working on acceptance to manage anger as well as weighing the pros and cons before making decisions. Objective 2- complete with ongoing work encouraged. Pt reports a 30% reduction in anxiety symptoms since admission per the DSM-5. Pt can identify calming skills and reports practicing self-care. Team Recommendations:: Treatment team encourages pt to continue working on incorporating calming skills to manage daily stressors as well as communicating with supports and being an advocate for herself.
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
--- NOTE | 2022-10-24 10:00 | BH.SGPN.GN ---
Behaviors/Verbalizations/Mental Status: [] Eye contact is good. Motor activity is appropriate. Appearance is casual. Speech is Appropriate. Mood is depressed. Affect is congruent. Thoughts are linear and logical. No evidence of psychosis. Client Response/Progress/Benefit: [] Pt was an active participant in group discussions and experiential activity. Attentive during psychoeducation. Participated during interactive discussions on unhealthy ways to manage emotions which included; substance abuse, self-harm, risky behaviors, isolation, lashing out at others, or sleeping excessively. Pt and peers identified consequences to unhealthy coping skills which included; relationship conflict, skilled nursing, hospitalization, rehab, shame, guilt, loss of job, etc. Group participated in discussion on the impact that intense emotions can have on communication which included; verbal vomit, not communicating effectively, resentments, over-sharing, dishonesty, yelling, anger outbursts, and relationship struggles. Engaged in experiential activity and able to relate activity to psychoeducation. Benefited from increased awareness of how the impact that emotions can have on communication. Will continue in IOP to prevent decompensation, increase healthy coping skills, and to imprive functinoing. Narrative Note: []
--- NOTE | 2022-10-24 11:10 | BH.SGPN.GN ---
Behaviors/Verbalizations/Mental Status: []Client alert and oriented, casually dressed and groomed. Eye contact fair. Motor activity appropriate. Speech within normal limits. Affect constricted, mood euthymic. Thoughts linear, logical, no signs of hallucinations or delusions. Client Response/Progress/Benefit: []Client engaged in session AEB client listening attentively to peers and providing input. Attentive during psychoeducation on 4 zones of regulation. Client able to identify feelings and behaviors for each zone. Client identified coping skills one can use to support self in each zone. Client reports she can benefit from practicing journaling her feelings, using smart goals, gratitude, and listening to music. Benefited from increased education on zones of regulation or stages of alertness for emotions and healthy coping skills to use for each zone. Will continue IOP tx to continue use of healthy coping, challenge distortions, and prevent decompensation.
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
--- NOTE | 2022-10-29 09:05 | BH.SGPN.GN ---
Behaviors/Verbalizations/Mental Status: []Eye contact good, casually dressed, motor activity appropriate, speech normal rate and tone, mood euthymic and anxious, congruent affect, thoughts linear and intact, no evidence of delusions or hallucinations. Reviewed pt's symptom tracker, pt suicidal ideation within established baseline, denies any plan or intent. Future oriented. Client Response/Progress/Benefit: []Pt responded well to session, attentive and willing to process with group. Identified current mental health win as challenging herself to go through her late uncle?s belongings with her grandmother. Shared this was difficult but she was able to use several healthy grounding skills and found it to ultimately be cathartic. Additional win noted as making plans to use his pop tab collection to make art, sharing this may aid in the grieving process as well. Current stressor noted as her upcoming release from probation date and feeling anxious about it. Pt appeared to benefit from supportive feedback provided by the group. Recommended continued IOP tx to continue to improve healthy distress tolerance skill application, promote mood stability, as well as prevent decompensation. Narrative Note: []
--- NOTE | 2022-10-29 11:10 | BH.SGPN.GN ---
Behaviors/Verbalizations/Mental Status: [] Client alert and oriented, casually dressed and groomed. Eye contact good. Motor activity appropriate. Speech within normal limits. Affect congruent, mood euthymic. Thoughts linear, logical, no signs of hallucinations or delusions. Client Response/Progress/Benefit: [] Client responded well to session, engaged in the experiential activity and attentive throughout group processing. Client reported fear of failure has kept client from starting a career. Client completed fear of failure worksheet and was able to identify thoughts and behaviors that reinforce personal fear of failure including expectations, perfectionism, and negative self talk. Client participated in small group discussion regarding strategies to overcome fear of failure. Identified wanting to work on exposing self to failure, reframing thoughts, and giving self incentives. Appeared to benefit from increased knowledge of strategies to combat fear of failure and gaining self-awareness. Client will continue IOP tx to increase overall functioning and prevent decompensation. Narrative Note: []
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
--- NOTE | 2022-10-31 09:00 | BH.SGPN.GN ---
Behaviors/Verbalizations/Mental Status: []Pt alert and oriented, neatly dressed and groomed. Eye contact good. Motor activity appropriate. Speech within normal limits. Affect constricted, mood euthymic. Thoughts linear, logical, no signs of hallucinations or delusions. Reviewed pt?s symptom tracker, no risk for suicidal ideation, plan, or intent as of 10/31/22 Client Response/Progress/Benefit: []Pt responded well to session, attentive and engaged. Pt reports feeling excited this morning as pt is officially done with her probation. Pt shared being done is also part of pt's stressor because it was a part of pt's routine and held pt accountable. Pt receptive to group feedback on reminding pt that she deserves credit for her sobriety by using healthy skills and making healthier choices. Pt stated she went to visit her uncle's grave yesterday which was positive and helped pt in her grief. Pt appeared to benefit from reflecting on her progress and application of coping skills. Pt will continue IOP tx to promote mood stability, monitor medication, and improve emotional regulation skills. Narrative Note: []
--- NOTE | 2022-10-31 10:00 | BH.SGPN.GN ---
Behaviors/Verbalizations/Mental Status: [] Client alert and oriented, neatly dressed and groomed. Eye contact good. Motor activity appropriate. Speech within normal limits. Affect congruent, mood dysthymic and anxious. Thoughts linear, logical, no signs of hallucinations or delusions. Client Response/Progress/Benefit: [] Client responded well to session, attentive during psychoeducation on SMART goals (Specific, Measurable, Achievable, Realistic, and Time-bound) and engaged in group experiential activity. Client did not share too much during interactive discussion with peers in which they worked together to define what a goal is and the benefits of having goals. Group identified benefits as; giving a sense of purpose, improving motivation, and helping reduce negative mental health symptoms. Participated in interactive discussion in which group identified barriers to setting goals and following through with goals. Barriers included not feeling worthy, negative self-talk, time, and cognitive distortions such as all or nothing thinking. Client shared example of how reaching a goal can look different based on perspective and connected it to when doing a math problem there can be multiple ways to get to solution. Benefited from increased awareness of benefits and strategies for goal-setting. Will continue in [facility] tx to improve mood stability, increase self-worth, and improve daily functioning. Narrative Note: []
--- NOTE | 2022-10-31 11:10 | BH.SGPN.GN ---
Behaviors/Verbalizations/Mental Status: [] Client alert and oriented, casually dressed, appropriately groomed. Eye contact good. Motor activity appropriate. Speech within normal limits. Affect congruent, mood anxious. Thoughts linear, logical, no signs of hallucinations or delusions. Client Response/Progress/Benefit: [] Client was engaged during discussion and willing to complete the worksheet challenging them to develop a personal SMART goal. Client chose the goal of walking 3 times a week for a month. Client stated this will benefit them by giving her motivation, being healthier, and practicing mindfulness. Client identified barriers which included not being motivated, weather, low self confidence, and fear of failure. Identified solutions as giving herself incentives, plan for next day, lower expectations, and practice self care. Client receptive to identifying solutions for these barriers and willing to begin working on this goal. Benefited from this group by developing a short-term SMART goal related to mental health. Will continue IOP tx to increase healthy coping, improve daily functioning, and decrease cognitive distortions. Narrative Note: []
--- NOTE | 2022-10-31 15:16 | BH.MDN_ITS ---
Multi-Disciplinary Note - Note 45-min Individual Time Started:: 12:15 Date: 10/31/22 Purpose of session/treatment goals addressed:: To review progress, identify current barriers, and review strategies to prompt mood stability. Eye Contact:: Good Motor Activity:: Appropriate Appearance:: Neat Speech:: Appropriate Mood:: Euthymic Affect:: Congruent Thoughts:: Linear, Logical, No evidence of hallucinations/delusions noted Staff Interventions:: thought challenging, CBT techniques, discharge planning, strengths perspective, goal setting, other - gave pt homework to work on strategies to manage martine and depression as well as identify what would make t hese worse. Client Response:: Pt responded well to session, open to meeting with therapist. Pt reports that she discontinued her [place] as pt felt like it was increasing her nausea and pt was experiencing memory issues while on this medication. Pt shared she stopped four days ago and the memory issues are resolving. Pt would like to increase her Lamictal and pt understands she needs to talk to Dr. Park next week. Pt reports that she is overall benefitting from IOP and she is using coping skills outside of group. Pt reports being consistent with reducing naps, eating 1-2 meals a day, and getting outside/going for walks. Pt also shared that she has decided to speak that the court hearing and read her statement. Pt feels at peace with this choice even though she understands she will feel anxious. Pt reports being somewhat stressed over a miscommunication with her PO, but pt shared it has been resolved. Discussed discharge and pt shared she would like a new outpatient counselor and to participate in IOP aftercare. Pt also receptive to working on homework so pt can identify what could make depression and martine worse and what pt can do to manage these sympt oms. Risks/Concerns:: Pt denies any suicidal ideations, plan, or intent. Pt admits that she stopped her [place] four days ago, but denies any issues or increased martine symptoms. Progress Toward Goals/Plan:: Pt recently stopped her [place] due to pt feelings it was adversely impacting her. Pt would like her Lamictal increased, but pt will need to be seen by Dr. Park first. Pt is making progress on her tx goals AEB pt's report of reduced naps, eating 1-2 meals consistently, reduced anger, and reduced depressive symptoms. Pt expressed today that she wants to find a new outpatient counselor, so a referral list will be given. Pt will continue IOP tx to promote gains, further improve daily functioning, and monitor for mood changes due to pt recently stopping a medication. Time Stopped:: 13:00
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
--- NOTE | 2022-11-04 10:15 | BH.SGPN.GN ---
Behaviors/Verbalizations/Mental Status: []Client alert and oriented, casually dressed and groomed. Eye contact good. Motor activity appropriate. Speech within normal limits. Affect congruent to topics being discussed, mood euthymic. Thoughts linear, logical, no signs of hallucinations or delusions. Client Response/Progress/Benefit: []Pt engaged in session AEB listening attentively to others and providing insight to group discussion. Pt engaged in activity, able to connect how it can be uncomfortable when things are out of one?s own control. Pt worked with group to identify what things in life can be hard to accept. Group identified things hard to accept as: of a loved one, body image, loss of relationship, mental health diagnosis, other?s behaviors, and past decisions. Pt worked on identifying what personal things are hard to accept for herself, sharing her diagnosis and body image are things she struggles with accepting. Pt seemed to benefit from increased awareness of importance of acceptance. Pt to continue IOP to improve confidence, increase self-care and healthy coping, and prevent decompensation. Narrative Note: []
--- NOTE | 2022-11-06 09:02 | BH.SGPN.GN ---
Behaviors/Verbalizations/Mental Status: []Eye contact is good. Motor activity is appropriate. Appearance is casual. Speech is Appropriate. Mood is euthymic. Affect is congruent. Thoughts are linear and logical. No evidence of psychosis. Reviewed daily check in sheet and denies any active SI. Client Response/Progress/Benefit: []Pt responded well to session, attentive and willing to process with group. Pt reports feeling ?excited? today as they are looking forward to making plans for the weekend. Expressed feeling proud of themselves for getting up in time to make a healthy breakfast and arrive to group without rushing. Pt identified current stressor as fear they might be . Identified this as unlikely but that she is still struggling with catastrophizing thoughts due to having recent nausea throughout the day. Benefited from empathy, supportive feedback, and encouragement of the group. Pt will continue IOP tx to prevent decompensation, improve mood stability, and promote healthy coping behaviors. Narrative Note: []
--- NOTE | 2022-11-06 10:00 | BH.SGPN.GN ---
Behaviors/Verbalizations/Mental Status: [] Eye contact is good. Motor activity is appropriate. Appearance is casual. Speech is Appropriate. Mood is anxious. Affect is congruent. Thoughts are linear and logical. No evidence of psychosis Client Response/Progress/Benefit: [] Pt was an active participant in group discussions. Attentive during psychoeducation on Conflict Styles. Participated during interactive discussion amongst group members in which they discussed perspective on conflict which was reported to be overall negative (yelling, shutting down, being mean, war, arguments, etc). Therapist challenged pt on reasons we may benefit from conflict and pt along with peers identified several benefits which included; to obtain resolution to an issue, to set boundaries, for one's safety, to improve relationships, to address concerns, and for growth. Engaged with peers during small group assignment in which they identified positives and negatives to each conflict style. Benefited from increased understanding of conflict and ways individuals manage conflict. Will continue in IOP to prevent decompensation, increase healthy coping, and stablize mood. Narrative Note: []
--- NOTE | 2022-11-06 11:10 | BH.SGPN.GN ---
Behaviors/Verbalizations/Mental Status: []Pt alert and oriented, neatly dressed and groomed. Eye contact good. Motor activity appropriate. Speech within normal limits. Affect congruent, mood euthymic. Thoughts linear, logical, no signs of hallucinations or delusions. Client Response/Progress/Benefit: []Pt engaged in session AEB contributing to discussion and engaging in activity. Pt did well to review current conflict styles of accommodating and competing and their impact on pt?s mental health. Attentive and taking notes during discussion on strategies for more effectively managing conflict in personal life.? Pt participated in activity and did well to talk through choices with peers. Pt given handout on fair fighting rules and identified that they want to work on discussing one topic at a time, not stonewalling, and no degrading language. Appeared to benefit from gaining strategies to help pt better manage conflict. Will continue IOP tx to reinforce healthy coping skills, monitor mood stability, and increase self-compassion. Narrative Note: []
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
== END 2022-11-09 23:59 ==
LOC: BHIOP 08:20
PROVIDERS: PCP Family Medicine; Referring Provider Psychiatry & Neurology Psychiatry; Visit Provider Psychiatry & Neurology Psychiatry
DX: F31.32 Bipolar disorder, current episode depressed, moderate (principal); F41.1 Generalized anxiety disorder; F43.10 Post-traumatic stress disorder, unspecified; F10.91 Alcohol use, unspecified, in remission; F14.91 Cocaine use, unspecified, in remission; F12.91 Cannabis use, unspecified, in remission
CPT/HCPCS: 99214; H2012; H2020; S9480; T1002; 90834; 90837

== ENCOUNTER → 2022-10-24 | Outpatient (CLI) | payer MEDICAID, SELFPAY ==
[2022-10-24 14:25] LABS: Lithium < 0.20 mmol/L (0.60-1.20)
[2022-10-24 14:27] LABS: BUN 7 mg/dL (7-18); BUN/Creat Ratio 10.2 RATIO (10-20); Chloride 108 mmol/L (98-107); Creatinine, Serum 0.68 mg/dL (0.55-1.02); EST Glomerular Filtration Rate 116 mL/min (>60); Est Glom Filt Rate - Afr Amer 140 mL/min (>60); Glucose 80 mg/dL (74-106); Phosphorus 3.4 mg/dL (2.5-4.9); Potassium 3.5 mmol/L (3.5-5.1); Sodium Level 136 mmol/L (136-145); Thyroid Stim Hormone (TSH) 0.98 uIU/mL (0.358-3.74)
== END | disposition home or self-care (01) ==
PROVIDERS: PCP Family Medicine; Referring Provider Psychiatry & Neurology Psychiatry; Visit Provider Psychiatry & Neurology Psychiatry
DX: Z79.899 Other long term (current) drug therapy (principal)
CPT/HCPCS: 36415; 80069; 80178; 84443

== ENCOUNTER 2022-11-10 08:09 | Outpatient (RCR) | payer OTHER, SELFPAY ==
[2022-11-10 00:46] VITALS: BP 121/74; PULSE 64
--- NOTE | 2022-11-11 09:05 | BH.SGPN.GN ---
Behaviors/Verbalizations/Mental Status: []Pt alert and oriented, neatly dressed and groomed. Eye contact fair. Motor activity appropriate. Speech within normal limits. Affect constricted, mood frustrated. Thoughts linear, logical, no signs of hallucinations or delusions. Reviewed pt?s symptom tracker, no risk for suicidal ideation, plan, or intent as of 11/11/22 Client Response/Progress/Benefit: []Pt responded well to session, attentive and providing support to peers. Pt reports feeling mixed emotions this morning. Pt can identify wins including being consistent with her medical appointments and following through with her doctor's recommendations to help with pt's GI issues. Pt stressor today is that she found out her liver enzymes are high, so pt is worried she will not be able to take her vivitrol shot. Pt shared I need that to stay sober but pt was able to see that she has a lot of other skills and supports that will help pt remain sober. Pt appeared to benefit from reflecting on her internal coping skills. Pt will continue IOP tx to promote mood stability, increase self-confidence, and improve emotional regulation skills. Narrative Note: []
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
--- NOTE | 2022-11-11 11:10 | BH.SGPN.GN ---
Behaviors/Verbalizations/Mental Status: [] Eye contact is good. Motor activity is appropriate. Appearance is casual. Speech is Appropriate. Mood is euth. Affect is full. Thoughts are linear and logical. No evidence of psychosis. Client Response/Progress/Benefit: [] Pt was an active participant in group discussions. Active and engaged during experiential activity. Attentive during psychoeducation on the 4 A's of stress management (Avoid, Alter, Adapt, Accept). Along with peers pt was able to connect the experiential activity to the group topic of stress. Identified times during the activity in which she utilized in the moment stress management skills which included; utilizing others for support/help, identifying struggles and adapting, making necessary changes when needed, the importance of patience, taking a step back, breathing, reframing thoughts, and not ruminating or letting setbacks lead to giving up. Benefited from increased education on stress management strategies and practicing in the moment stress management skills. Will continue in IOP to maintain safety, prevent decompensation, increase healthy coping skills, and to stabilize mood. Narrative Note: []
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
--- NOTE | 2022-11-12 09:00 | BH.SGPN.GN ---
Behaviors/Verbalizations/Mental Status: []Pt alert and oriented, casually dressed and groomed. Eye contact fair. Motor activity appropriate. Speech within normal limits. Affect constricted, mood anxious. Thoughts linear, logical, no signs of hallucinations or delusions. Reviewed pt?s symptom tracker, no risk for suicidal ideation, plan, or intent. Client Response/Progress/Benefit: []Pt responded well to session, attentive and engaged. Patient reported mental positive as buying clothes and over thinking what she got. Patient noted this as a mental win because she usually tries on all the clothes and never feels like they fit her correctly. Patient noted additional months of positive as eating breakfast consistently for 1 week. Patient noted she has not been researching what she is eating because when she does that it typically spirals into negative body image thoughts. Client noted current stressor as being worried she is not going to be able to get her medication shot that helps decrease urges to drink because of a recent blood test that showing increased liver enzymes. Patient stated she is waiting to hear back from the doctor. Pt appeared to benefit from support from peers. Pt will continue IOP tx to continue use of healthy coping skills, challenge distortions, and prevent decompensation.
--- NOTE | 2022-11-12 10:10 | BH.SGPN.GN ---
Behaviors/Verbalizations/Mental Status: []Eye contact is good. Motor activity is appropriate. Appearance is casual. Speech is Appropriate. Mood is anxious and euthymic. Affect is congruent. Thoughts are linear and logical. No evidence of psychosis. Client Response/Progress/Benefit: []Pt was an active participant in group discussion and experiential activity. Attentive during psychoeducation on resilience. Participated in interactive discussion with peers on the definition of resilience and where it comes from. Pt shared that resiliency is an important component of maintaining mental wellness. Group identified that resiliency can be impacted by; past experiences, learned behaviors, and current mental health state. Group also worked together to identify the benefits of being resilient and how it is related to mental health. Able to relate experiential activity of group juggle to topics of resilience. Worked well with peers in small group in which they identified factors that contribute to resilience. Benefited from increased awareness of resilience and the factors that contribute to building resilience. Will continue in IOP to prevent decompensation and further promote mood stability, as well as improve ability to manage triggers. Narrative Note: []
--- NOTE | 2022-11-12 11:10 | BH.SGPN.GN ---
Behaviors/Verbalizations/Mental Status: []Pt alert and oriented, neatly dressed and groomed. Eye contact good. Motor activity appropriate. Speech within normal limits. Affect congruent, mood euthymic and anxious. Thoughts linear, logical, no signs of hallucinations or delusions Client Response/Progress/Benefit: []Pt responded well to session AEB completing the resilience worksheet provided. Pt participated in the discussion and worked cooperatively with group to identify strategies to enhance each of the components discussed. Pt reports belief they already use resilience trait of??keeping things in perspective? as pt has been using positive affirmations.?Pt stated they would like to continue to develop resilience trait of ?making connections? as pt wants a bigger support system. Pt seemed to benefit from discussing strategies for improving personal resilience and identifying resilience traits pt already possesses. Progress noted as pt reports utilizing healthy coping skills outside of IOP tx. Will continue IOP tx to improve daily functioning, further decrease negative thinking patterns, and improve emotional regulation skills. Narrative Note: []
--- NOTE | 2022-11-12 11:42 | PCM.BH.PN ---
Progress Note Progress Note: History of Present Illness/Interim History: The patient is a 21-year-old single, female with a history of bipolar 1 disorder, anxiety, alcohol use disorder sober on Vivitrol for 8 months who is seen in follow-up at the [facility] behavioral health IOP program. I last saw the patient several weeks ago. The patient discontinued lithium 1 week ago that she had been on for 3 weeks because she said it started to make her feel bad and she had significant side effects so she does not want to take lithium. Per staff the patient has improved and is less irritable and she states she feels more hopeful than she did at the start of the program. She feels she is less depressed. Sleep is about 6 or 7 hours a night. She continues to deny hopelessness, passive thoughts of , suicidal ideation, plan for suicide, homicidal ideation, hallucinations or delusions. Denies any martine. She is currently worried because her liver and times have been elevated and her GI doctor said she may have to stop taking Vivitrol. The patient states that she wants to stop Vivitrol until her liver enzymes which were repeated come back and also she has a liver ultrasound scheduled for tomorrow. She remains sober from alcohol. Current Psychiatric Medications: [] Pownal discontinued 1 week ago; Lamictal 100 mg p.o. nightly (since January 2022); Prozac 20 mg p.o. daily (since March 2022); prazosin 1 mg p.o. nightly; Vivitrol injection monthly for alcohol use disorder; metformin 500 mg p.o. daily;. Mental Status Examination: [] The patient is a 21-year-old female who appears normal for stated age and is casually dressed and groomed with good hygiene. She is ambulatory with a normal gait and has no psychomotor agitation or retardation. She is cooperative during the interview. Eye contact is good and speech is normal rate and rhythm and fluent with no pressure. Mood is minimally to mildly depressed. Affect is constricted. Thought process is goal-directed and organized. Thought content: The patient is worried about her liver enzymes being elevated. There is no evidence of passive thoughts of , suicidal ideation, plan for suicide, homicidal ideation, hallucinations or delusions. Reality testing is intact. Judgment is intact. Impulsivity is high. Insight is fair to good. Intelligence is above average. Diagnoses: [] 1. Bipolar 1 disorder, most recent episode depressed, moderate 2. Generalized anxiety disorde 3. Strong cluster B traits 4. PTSD 5. Alcohol use disorder in remission on Vivitrol for 8 months 6. History of cocaine and marijuana use disorder 7. Primary support issues Plan: [] The patient will continue the IOP program at [facility] as the structure, support, education and group therapy will hopefully prevent worsening of the patient's symptoms which could require hospitalization. She felt safe during the interview and if it anytime she does not feel safe she will let us know or go to the emergency room. The risk, options, possible complications and side effects of the medications were again discussed with the patient and she understands accepts these. Discussed with the patient that Prozac could be helping her cycle more frequently or make her tend to get manic easier. The patient does not wish to stop the Prozac as she feels it is helped her. The patient agrees to try Latuda 40 mg p.o. daily with food to help prevent martine. Prescription is sent in for this. She will continue to follow-up with her outpatient providers and I will see the patient in follow-up in 2 weeks.
--- NOTE | 2022-11-18 09:05 | BH.SGPN.GN ---
Behaviors/Verbalizations/Mental Status: [] Eye contact is good. Motor activity is appropriate. Appearance is casual. Speech is Appropriate. Mood is depressed. Affect is congruent. Thoughts are linear and logical. No evidence of psychosis. Client Response/Progress/Benefit: [] Pt participated at times during the group discussion. Attentive. Emotion for today is ?tired?. Mental health win was advocating for herself regarding her medications. Identified how this was assertive communication and will increase likelihood of continuing with medications and being compliant. Shared that she is making decisions rather than avoiding them and feels that overall she is managing her emotions and thoughts effectively. Benefited from group support, encouragement, and feedback. Will continue in IOP to maintain gains. Narrative Note: []
--- NOTE | 2022-11-18 10:13 | BH.SGPN.GN ---
Behaviors/Verbalizations/Mental Status: []Pt alert and oriented, casually dressed and groomed. Eye contact good. Motor activity appropriate. Speech within normal limits. Affect congruent, mood dysthymic and anxious. Thoughts linear, logical, no signs of hallucinations or delusions. Client Response/Progress/Benefit: []Pt was an active participant in group discussion and experiential activity. Attentive during psychoeducation on possible causes to developing and maintaining unhealthy coping habits which can impact mental health. Pt participated in interactive discussion identifying common unhealthy coping skills and pt identified personal unhealthy skills as trauma dumping, pushing others away, and shutting down. ?Able to make connections between experiential activity (folder towers) and importance of having a solid base of internal and external coping skills. Benefited from increased awareness of internal and external coping skills and identifying unhealthy coping skills. Will continue in IOP to promote gains, further increase self-care practices, and improve self-compassion. Narrative Note: []
--- NOTE | 2022-11-18 11:10 | BH.SGPN.GN ---
Behaviors/Verbalizations/Mental Status: []Pt alert and oriented, neatly dressed and groomed. Eye contact good. Motor activity appropriate. Speech within normal limits. Affect congruent, mood euthymic. Thoughts linear, logical, no signs of hallucinations or delusions Client Response/Progress/Benefit: []Pt responded well to session, taking notes and contributing. Group discussed the different categories of coping skills which included distraction, emotional release, grounding, self-love, and thought challenging.? Pt participated in creating a coping skills ?menu? from the five categories of coping skills. Pt's coping skill menu included: trying new hobbies, exercising, letter writing and journaling, giving self credit, and looking at the evidence against her negative thoughts. ?Appeared to benefit from increasing repertoire of healthy coping skills. Will continue IOP tx to reinforce healthy coping skills and further promote mood stability. ? Narrative Note: []
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
--- NOTE | 2022-11-21 10:10 | BH.SGPN.GN ---
Behaviors/Verbalizations/Mental Status: [] Eye contact is good. Motor activity is appropriate. Appearance is casual. Speech is Appropriate. Mood is euthymic. Affect is congruent. Thoughts are linear and logical. No evidence of psychosis. Client Response/Progress/Benefit: []Pt engaged participant AEB listening to others, engaging in activity, and providing feedback at times. Attentive during psychoeducation and provided insight into obstacles in the way of mental wellness. Pt stated in current reality feels clouded, trying to navigate jagged branches and having unwillingness to change certain things. In desired reality she wants to be more receptive to change and feel more clear headed. Identified barriers to desired reality include: mood instability, low motivation, poor boundaries, fear of success/failure, and legal issues. Benefited from taking look at current mental health state and obstacles for progress. Pt has made significant treatment progress and will discharge from [facility] today. Narrative Note: []
--- NOTE | 2022-11-21 10:41 | BH.AFTERPLAN ---
Aftercare Plan - Demographics Treatment End Date:: 11/21/22 Psychiatrist:: Kristal Park Psychiatrist Office #:: [phone] [facility] Therapist:: Janiya Viramontes Therapist Phone #:: [phone] - Plan Details Progress/Aftercare Plan Details:: Dory has responded well to treatment as evidenced by Dory consistently attending IOP sessions and her reduction of DSM-5 scores since admission. Dory was attentive and receptive to learning during group and individual sessions. Dory actively applies coping skills outside of IOP and reports her mood is improved and she is functioning better than she was several months ago. Dory's overall symptom reduction is 39% since admission with anger reducing by 50% , depression decreasing by 60%, and anxiety decreasing by 90%. Dory has increased her ability to manage her stress, triggers, and grief. Strategies for Success:: 1. Opposite action! Continue to break that cycle of anger, anxiety, and depression by acting differently than your emotion wants you to. 2. Remember to ride the wave. Slow down and PAUSE. Delay, distract, decide. 3. self-care! You deserve to take time for you and you also deserve to face the not so fun self-care 4. Self-compassion! You are human and you will make mistake?BUT that doesn?t mean you are a failure or not good enough. Give yourself credit for all the wonderful things you do. 5. Self-advocacy! You deserve happiness, peace, and respect like ANYONE else. 6. Practicing deep breathing, calming self-talk, and grounding 7. Practice positive self-talk and keep track of your wins. 8. Remember progress isn?t linear! You may have a setback or bump in the road, but that doesn?t mean you?ve lost all progress. 9. Keep aware of pitfalls and refer back to your binder/notes when needed 10. Continue to practice assertive communication and remember just because someone does not like a boundary does not mean it is a bad one. - Appointments Appointments/Referrals to Other Services:: 1. Dr. Pate 2. IOP aftercare starting 11/27/22 for 8 weeks from 2:00-3:30pm. 3. Follow up with [facility]. - Medications Home Medications: Home Medications etonogestrel 68 mg subdermal implant (Nexplanon) subdermal control 05/15/21 metformin 500 mg tablet 500 mg PO DAILY #30 tabs 10/01/22 fluoxetine 20 mg capsule 20 mg PO DAILY 30 days #30 caps 11/20/22 lamotrigine 100 mg tablet 100 mg PO DAILY #30 tabs 11/20/22 lurasidone 40 mg tablet (Latuda) 40 mg PO QPM 30 days #30 tabs 11/20/22
--- NOTE | 2022-11-21 11:15 | BH.SGPN.GN ---
Behaviors/Verbalizations/Mental Status: []Pt alert and oriented, neatly dressed and groomed. Eye contact good. Motor activity appropriate. Speech within normal limits. Affect constricted, mood anxious and happy. Thoughts linear, logical, no signs of hallucinations or delusions. Client Response/Progress/Benefit: []Pt an active participant, encouraging peers and contributed as group brainstormed ideas on how to cope with internal barriers that keep Pts stuck from moving towards goals. Able to identify barriers to desired reality. Worked with group to identify strategies to help overcome barriers. Identified personal barriers to desired reality. Pt wants to work on overcoming the barrier of fear of failure by continuing to practice thought challenging and attending aftercare. Benefited from group by identifying obstacles and solutions to desired reality.? Pt to discharge from IOP tx today as pt has accomplished her tx goals and no longer meets criteria for IOP level of care. Narrative Note: []
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
== END 2022-11-21 12:32 | disposition home or self-care (01) ==
LOC: BHIOP 08:09
PROVIDERS: PCP Family Medicine; Referring Provider Psychiatry & Neurology Psychiatry; Visit Provider Psychiatry & Neurology Psychiatry
DX: F31.32 Bipolar disorder, current episode depressed, moderate (principal); F41.1 Generalized anxiety disorder; F43.10 Post-traumatic stress disorder, unspecified; F10.91 Alcohol use, unspecified, in remission; F12.91 Cannabis use, unspecified, in remission; F14.91 Cocaine use, unspecified, in remission
CPT/HCPCS: 99214; H2020; S9480; 90832; 90837

== ENCOUNTER 2022-11-27 12:00 | Outpatient (RCR) | payer OTHER, SELFPAY ==
--- NOTE | 2022-11-27 14:00 | BH.SGPN.GN ---
Behaviors/Verbalizations/Mental Status: []Pt alert and oriented, neatly dressed and groomed. Eye contact good. Motor activity appropriate. Speech within normal limits. Affect congruent, mood euthymic. Thoughts linear, logical, no signs of hallucinations or delusions. Client Response/Progress/Benefit: []Pt receptive of session, engaged throughout. Pt shared they have been consistent with their medications and they have been maintaining appointments with their outpatient mental health providers. Pt reports using self-care, deep breathing, crying, and challenging negative thoughts to cope with stressors and negative thoughts. Receptive of discussion on sitting with the uncomfortable and emotional urges. Pt contributed to the discussion of distress tolerance including benefits and pt identified personal examples of what happens if their distress tolerance is low. Pt shared to improve distress tolerance, pt is going to work on sitting at the table for ten minutes after she finishes eating. Pt seemed to benefit from support from peers and increasing understanding of distress tolerance. Will continue IOP aftercare to reinforce healthy coping skills and maintain gains. Narrative Note: []
--- NOTE | 2022-11-27 17:40 | BH.MTP ---
Master Treatment Plan - Patient Information Program Physician:: Dr. Kristal Park Primary Therapist:: Janiya WASHBURN - Psychiatric Diagnoses Psychiatric Diagnoses:: Bipolar 1 disorder, most recent episode depressed, moderate F 31.32; Generalized anxiety disorder; PTSD; Strong cluster B traits; Alcohol use disorder in remission on Vivitrol for 8 months; History of cocaine and marijuana use disorder Diagnosis Code(s):: F 31.32 - Estimated LOS Estimated LOS (in weeks):: 8 Problem/Goal #1 - Problem/Goal #1 Stated Goal:: client will maintain or see a reduction in symptoms AEB client score on the DSM 5 cross-cutting measure and improve client's daily functioning. - Objectives Objective #1 Stated Objective: Client will continue to consistently apply healthy coping skills to maintain progress made in IOP tx. Interventions: Through group therapy, client will review warning signs and triggers as well as healthy coping skills learned in IOP tx to successfully maintain gains while transitioning into outpatient therapy. Discharge Criteria: Client will have accomplished this goal when client's score on the DSM-5 cross-cutting measure has maintained or reduced over a 8 week period. Target Date: 01/22/23 Review Date: 12/25/22 Status: open Objective #2 Stated Objective: Client will learn and utilize 2-3 maintenance strategies to prevent decompensation from original IOP DSM-5 scores. Interventions: Through group therapy, client will be provided with education on healthy maintenance behaviors, relapse prevention techniques, and healthy coping strategies. Discharge Criteria: Client will have accomplished this goal when can report using at least 2 maintenance skills to prevent decompensation compared to original IOP DSM-5 scores Target Date: 01/22/23 Review Date: 12/25/22 Status: open
== END 2022-12-10 23:59 ==
LOC: BHOG 12:00
PROVIDERS: PCP Family Medicine; Referring Provider Psychiatry & Neurology Psychiatry; Visit Provider Psychiatry & Neurology Psychiatry
DX: F31.32 Bipolar disorder, current episode depressed, moderate (principal); F41.1 Generalized anxiety disorder; F43.10 Post-traumatic stress disorder, unspecified; F10.91 Alcohol use, unspecified, in remission; F12.91 Cannabis use, unspecified, in remission; F14.91 Cocaine use, unspecified, in remission
CPT/HCPCS: 90853

== ENCOUNTER 2022-12-11 07:36 | Outpatient (RCR) | payer OTHER, SELFPAY ==
--- NOTE | 2022-12-18 14:00 | BH.SGPN.GN ---
Behaviors/Verbalizations/Mental Status: []Pt alert and oriented, casually dressed and groomed. Eye contact good. Motor activity appropriate. Speech within normal limits. Affect congruent-tearful, mood depressed. Thoughts linear, logical, no signs of hallucinations or delusions. Client Response/Progress/Benefit: []Pt responded well to session, Pt reports they still have not had their first therapy appointment and they are not taking medications consistently. Pt shared mood is low this week due to another relapse in drinking and smoking. Pt was tearful and reported feeling upset with herself, but pt able to give herself credit for coming to aftercare today. Pt receptive to group support and encouragement. Pt engaged well during the discussion of the components of self-compassion. Pt connected with the benefits of self-compassion and participated in the activity of reframing an example setback using self-compassion Pt worked with peers in small groups to practice reframing using self-compassion and for homework pt will use the same technique for their own experience. Pt appeared to benefit from practicing self-compassion and connecting with peers. Will continue aftercare to promote mood stability and reinforce healthy coping skills. Will continue to monitor alcohol use. Narrative Note: []
--- NOTE | 2022-12-18 16:37 | BH.TPR ---
Treatment Plan Review Demographics Date of Admission:: 11/27/22 Date of Treatment Plan Review:: 12/18/22 Admitting Diagnoses:: Bipolar 1 disorder, most recent episode depressed, moderate F 31.32; Generalized anxiety disorder; PTSD; Strong cluster B traits; Alcohol use disorder in remission on Vivitrol for 8 months; History of cocaine and marijuana use disorder Current Diagnoses:: Bipolar 1 disorder, most recent episode depressed, moderate F 31.32; Generalized anxiety disorder; PTSD; Strong cluster B traits; Alcohol use disorder in remission on Vivitrol for 8 months; History of cocaine and marijuana use disorder Patient Status Patient's Response to Treatment:: Pt has been responding well to IOP aftercare tx, but recently pt had a relapse with alcohol use and this has impacted pt's engagement. Pt reports struggling to utilize her healthy coping skills consistently and has been isolating more. Pt is still receptive to group feedback and reports plan to see her new outpatient therapist at the end of the month. This therapist has offered to check-in with pt prior to IOP aftercare on , but pt is not consistently showing up to see therapist for check-ins. Status of Current Problems and Symptoms: Pt's DSM-5 scores have increased and are close to what they were when pt was admitted to IOP tx. Pt's depression and anxiety scores are still less than IOP admission, but pt's reporting more unexplained aches and pains, more issues with sleep, drinking, and not knowing who she is or what she wants out of life. Additionally, pt has gone back to isolating and avoiding things that have helped her in the past. Progress Problem #1: Problem Name:: Pt will maintain or see a reduction in sx Status of Goals:: Obj 1 ? not complete, see status of current problems and symptoms. Pt has been encouraged to practice healthy coping skills, come in to talk with IOP therapist, and reach out to supports that keep pt sober. Obj 2 - ongoing work encouraged. Pt had been walking, being social, and using calming skills. Pt reports she is currently struggling with using these skills. Team Recommendations:: Recommended client continue IOP aftercare group in addition to attending regular outpatient counseling in order to maintain gains. Pt also recommended to reach out to her supports that help pt maintain sobriety as pt recently relapsed on alcohol. Pt has her first appointment with her outpatient therapist on 01/05/23.
--- NOTE | 2023-01-01 14:00 | BH.SGPN.GN ---
Behaviors/Verbalizations/Mental Status: []Pt alert and oriented, neatly dressed and groomed. Eye contact good. Motor activity appropriate. Speech within normal limits. Affect constricted, mood euthymic. Thoughts linear, logical, no signs of hallucinations or delusions. Client Response/Progress/Benefit: []Pt responded well to session, attentive and engaged. Pt reported she has her first therapy appointment next week and that she is not taking any of her meds. Pt stated she feels better off them and pt was encouraged to talk to her psychiatrist. Pt reports she is going to the gym and eating on a ?better schedule? which is positive. Pt participated in discussion of personal values and why knowing these can be helpful to one's mental health. The group also discussed what could happen if one does not live according to their values. Pt identified her top two values as friendship and intimate relationships. Pt set a goal to have weekly check-ins with her boyfriend to see if there is anything to improve upon. Pt will continue IOP aftercare to prevent further decompensation. Pt recently had a relapse in drinking and pt has taken herself off her medications which is concerning and will continue to be monitored. Narrative Note: []
--- NOTE | 2023-01-08 16:32 | BH.DS_ITS ---
Discharge Summary Demographics Date of Admission:: 11/27/22 Discharge Date: 01/08/23 Presenting Problems at Admission:: Pt admitted to IOP aftercare to maintain progress from IOP. At admission to IOP aftercare, pt was still experiencing symptoms of depression, anxiety, and grief but of decreased intensity. Pt was also experiencing stressors with eating disorder triggers and relationship stress. Discharge Diagnoses:: Bipolar 1 disorder, most recent episode depressed, moderate F 31.32; Generalized anxiety disorder; PTSD; Strong cluster B traits; Alcohol use disorder in remission on Vivitrol for 8 months; History of cocaine and marijuana use disorder Reason for Discharge:: Pt completed seven of the eight weeks of IOP aftercare, but did not come for her last session. Pt reported maximum benefit from IOP aftercare and will continue with outpatient counseling. Treatment Progress During Treatment & Response: Pt had been responding well to IOP aftercare tx, but recently pt had a relapse with alcohol use and this has impacted pt's engagement. For the past three weeks pt reported struggling to utilize her healthy coping skills consistently and has been isolating more. Pt's DSM-5 scores also increased and are close to what they were when pt was admitted to IOP tx. At treatment plan review, pt's depression and anxiety scores were still less than IOP admission, but pt reported more unexplained aches and pains, more issues with sleep, drinking, and not knowing who she is or what she wants out of life. Additionally, pt had stopped her medications and gone back to isolating and avoiding things that have helped her in the past. Issues Still to be Addressed:: Alcohol relapse and recovery, eating disorder triggers and management, negative thinking patterns, isolation, avoidance, grief, mood instability, and medication non-compliance. Discharge Recommendations/Instructions:: Pt sees Dr. Pate for medication management and pt reported she has stopped her medications which could result in significant decompensation. Pt also sees Chelsea Marshall at [facility] for individual mental health counseling. Pt encouraged to reach out to her sober supports to prevent more relapsing. Discharge Handout
== END 2023-01-09 23:59 ==
LOC: BHOG 07:36
PROVIDERS: PCP Family Medicine; Referring Provider Psychiatry & Neurology Psychiatry; Visit Provider Psychiatry & Neurology Psychiatry
DX: F31.32 Bipolar disorder, current episode depressed, moderate (principal); F41.1 Generalized anxiety disorder; F43.10 Post-traumatic stress disorder, unspecified; F10.91 Alcohol use, unspecified, in remission; F12.91 Cannabis use, unspecified, in remission; F14.91 Cocaine use, unspecified, in remission
CPT/HCPCS: 90853

== ENCOUNTER 2022-12-16 15:47 | Emergency (ER) | payer MEDICAID, SELFPAY ==
[2022-12-16 15:48] VITALS: BP 125/75; PULSE 92; RESP 18; TEMP 36.4; O2SAT 97; BMI 26.9
--- NOTE | 2022-12-16 16:42 | US_ITS ---
INDICATION: pelvic pain EXAMINATION: Ultrasound US Transvaginal Non-OB TECHNIQUE: Transvaginal (for optimal evaluation of the adnexa) pelvic ultrasound was performed. Grayscale, spectral waveform, and color flow Doppler evaluation of the adnexa. COMPARISON: None. FINDINGS: UTERUS: Anteverted. The uterus measures 6.0 x 3.4 x 2.6 cm. There is no uterine mass. The endometrial stripe measures 1.2 mm in AP diameter which is within normal limits. RIGHT OVARY: 3.6 x 2.3 x 1.9. Non-enlarged, normal echogenicity. There is normal arterial inflow and venous outflow present in the right ovary. Multiple follicles are present, largest measures approximately 1.2 x 0.9 cm. LEFT OVARY: 2.5 x 3.7 x 2.3 cm.. Non-enlarged, normal echogenicity. There is normal arterial inflow and venous outflow present in the left ovary. Multiple follicles are present, largest measures approximately 1.2 x 1.07 m. FREE FLUID: None. US/Transvaginal Non- IMPRESSION: 1. Normal sonographic appearance of the uterus and endometrium. 2. Bilateral ovarian follicles as documented. No evidence however of dominant masses or abnormal blood flow. 3. No free fluid. Electronically Signed: Sj Lozano MD at 18:45 EDT ,
--- NOTE | 2022-12-16 16:45 | ED.VIS.GI ---
HPI HPI - GI History of Present Illness Chief Complaint: Back Narrative Narrative: 21-year-old female presenting with reported back pain but states its been there for about a month. She is already had images done at the urgent care and they were normal for her. She states she does have scoliosis. She is now presenting with some left-sided lower back pain as well as left pelvic pain and into her hip. She denies any trauma. She states that she has been vomiting over the last week intermittently. She denies fevers or chills. She denies body aches. She states she does not believe she is because she has PCOS and she already has an implant of Nexplanon. Patient does report a history of PCOS. [facility] Medical History Alcohol use disorder Alcohol withdrawal Asthma Bipolar 1 disorder, depressed, moderate Desire for detoxification Generalized anxiety disorder GERD (gastroesophageal reflux disease) History of cocaine use History of marijuana use Migraines Osteopenia PTSD (post-traumatic stress disorder) Tobacco abuse Home Medications etonogestrel 68 mg subdermal implant (Nexplanon) subdermal control 05/15/21 [History Last Taken Unknown] metformin 500 mg tablet 500 mg PO DAILY #30 tabs 10/01/22 [Rx Last Taken Unknown] fluoxetine 20 mg capsule 20 mg PO DAILY 30 days #30 caps 11/20/22 [Rx Last Taken Unknown] lamotrigine 100 mg tablet 100 mg PO DAILY #30 tabs 11/20/22 [Rx Last Taken Unknown] lurasidone 40 mg tablet (Latuda) 40 mg PO QPM 30 days #30 tabs 11/20/22 [Rx Last Taken Unknown] tizanidine 4 mg tablet 4 mg PO Q8H PRN muscle spasticity #18 tabs 12/16/22 [Rx Last Taken Unknown] Allergy/AdvReac Type Severity Reaction Status Date / Time No Known Allergies Allergy Verified 12/16/22 15:50 Family History Other Alcoholism Anxiety Arthritis Asthma COPD (chronic obstructive pulmonary disease) Depression High cholesterol Social History Smoking Status: Current every day smoker tobacco type: cigarettes and e-cigarettes alcohol intake: former details: 5 months sober substance use type: does not use ROS ROS ED Constitutional Constitutional ED: Denies chills, fever(s) or sweats Eyes Eyes: Denies blurry vision or change in vision ENT ENT ED: Denies ear pain or sore throat Cardiovascular Cardiovascular: Denies chest pain, palpitations or racing heartbeat Respiratory/Chest Respiratory/Chest: Denies cough, dyspnea or sputum Gastrointestinal Gastrointestinal: Reports abdominal pain and vomiting; Denies constipation, diarrhea or nausea Genitourinary Genitourinary ED: Denies dysuria, hematuria or urinary frequency Musculoskeletal Musculoskeletal: Denies arthralgias, myalgias or neck pain Integumentary Denies abscess, Abrasions or rash Neurologic Neurologic: Denies headache(s), paresthesias or weakness Psychiatric Psychiatric: Denies anxiety, depression, suicidal ideation or suicidal thoughts Endocrine Endocrinology: Denies polydipsia or polyuria EXAM Physical Exam Const Vital Signs: 12/16/22 15:48 12/16/22 18:57 12/16/22 20:00 Temperature 97.5 F L Temperature Source Temporal Pulse Rate 92 73 Respiratory Rate 18 16 17 Blood Pressure 125/75 H Blood Pressure Mean 91 Pulse Ox 97 97 Oxygen Delivery Method Room Air Room Air Positive well nourished General Appearance ED: NAD HEENT Reports moist mucous membranes normocephalic Eyes PERRL and EOMs intact bilaterally Resp normal respiratory effort Cardio regular rate and regular rhythm GI Palpation: tender LLQ and suprapubic; Negative for pulsatile mass Back/Spine no CVA tenderness Back/Spine Narrative: Tenderness to palpation left lumbar paraspinal musculature. No midline deformity or step-off. Neuro CN's II-XII intact bilaterally Sensorium / Orientation: alert Motor Exam: strength 5/5 throughout Psych mental status grossly normal Mood & Affect: Negative for depressed or anxious MDM MDM MDM Narrative Medical decision making narrative: Patient initially presenting with lower back pain on the left but then tells me she has had some lower pelvic pain on the left. No fevers, chills. No urinary or vaginal complaints. She does report a little bit of diarrhea recently. Differential includes but is limited to lumbar strain, kidney stone, bowel obstruction, UTI, pyelonephritis, ovarian torsion, ovarian cyst, malignancy. CBC to assess white blood cell count, hemoglobin, platelets, differential. CMP to assess liver function, renal function, anion gap, electrolytes, glucose. Urinalysis to assess for UTI. hCG to assess for . Patient reports history of ovarian cyst states and obtain an ultrasound which showed bilateral ovarian follicles. No ovarian torsion. hCG negative. No evidence of ectopic . CBC unremarkable. CMP shows normal liver function, renal function, electrolytes. Had a discussion with the patient regarding normal work-up thus far after discussion patient first to have a CT scan which was ordered and is also negative for acute findings. At this point I did hiv counselor her that I can still treat her back pain with a muscle relaxer since this prednisone did not work. Patient was amenable to this. She had a prescription filled to the hospital for she left. Return precautions discussed. Impression: 1. Pelvic pain 2. Lumbar strain Lab Data Labs: Laboratory Results - last 24 hr 12/16/22 12/16/22 12/16/22 17:09 17:09 17:09 WBC 10.3 RBC 4.37 Hgb 14.1 Hct 43.0 MCV 98.4 MCH 32.3 H MCHC 32.8 RDW Std Deviation 43.8 RDW Coeff of Reggie 12.0 Plt Count 239 MPV 10.1 Immature Gran % (Auto) 0.400 Neut % (Auto) 88.0 H Lymph % (Auto) 8.8 L [place] % (Auto) 2.6 Eos % (Auto) 0.0 Baso % (Auto) 0.2 Absolute Neuts (auto) 9.1 H Absolute Lymphs (auto) 0.91 Nucleated RBC % 0 Sodium 142 Potassium 4.1 Chloride 109 H Carbon Dioxide 28.0 Anion Gap 5 BUN 13 Creatinine 0.77 Estim Creat Clear Calc 92.18 Est GFR (MDRD) Af Amer 121 Est GFR (MDRD) Non-Af 100 BUN/Creatinine Ratio 16.8 Glucose 110 H Calcium 9.3 Total Bilirubin 0.30 AST 12 L ALT 46 Alkaline Phosphatase 88 Total Protein 7.4 Albumin 3.9 Globulin 3.5 Albumin/Globulin Ratio 1.1 Serum , Qual NEGATIVE Urine Color Urine Clarity Urine pH Ur Specific [place] Urine Protein Urine Glucose (UA) Urine Ketones Urine Occult Blood Urine Nitrite Urine Bilirubin Urine Urobilinogen Ur Leukocyte Esterase Urine RBC Urine WBC Ur Squamous Epith Cells Urine Bacteria Urine Mucus 12/16/22 17:09 WBC RBC Hgb Hct MCV MCH MCHC RDW Std Deviation RDW Coeff of Reggie Plt Count MPV Immature Gran % (Auto) Neut % (Auto) Lymph % (Auto) [place] % (Auto) Eos % (Auto) Baso % (Auto) Absolute Neuts (auto) Absolute Lymphs (auto) Nucleated RBC % Sodium Potassium Chloride Carbon Dioxide Anion Gap BUN Creatinine Estim Creat Clear Calc Est GFR (MDRD) Af Amer Est GFR (MDRD) Non-Af BUN/Creatinine Ratio Glucose Calcium Total Bilirubin AST ALT Alkaline Phosphatase Total Protein Albumin Globulin Albumin/Globulin Ratio Serum , Qual Urine Color Yellow Urine Clarity Clear Urine pH 8.0 Ur Specific [place] 1.015 Urine Protein Negative Urine Glucose (UA) Normal Urine Ketones Negative Urine Occult Blood Negative Urine Nitrite Negative Urine Bilirubin Negative Urine Urobilinogen Normal Ur Leukocyte Esterase Negative Urine RBC 0 SEEN Urine WBC 0 SEEN Ur Squamous Epith Cells 0-5 SEEN Urine Bacteria 0 SEEN Urine Mucus 0 SEEN Radiography Diagnostic Testing: Clinical Impression(s) from Imaging Studies Transvaginal US 12/16/22 16:42 IMPRESSION: 1. Normal sonographic appearance of the uterus and endometrium. 2. Bilateral ovarian follicles as documented. No evidence however of dominant masses or abnormal blood flow. 3. No free fluid. Electronically Signed: Sj Lozano MD at 18:45 EDT , Abdomen/Pelvis CT 12/16/22 19:34 IMPRESSION: 1. No masses bowel obstruction abscess free fluid or free air. No evidence diverticulitis. 2. Short segments of a normal appendix are present. 3. No evidence of renal calcifications or obstructive uropathy. 4. No evidence of cholelithiasis, gallbladder is contracted. Electronically Signed: Sj Lozano MD at 20:36 EDT , Discharge Plan Triage Chief Complaint: Back ED Provider: Khai Tesfaye Dx/Rx/DC Orders Instructions: ED Abdominal Pain Unkn Cause Fem, ED Back Spasm, No Trauma Prescriptions: New tizanidine 4 mg tablet 4 mg PO Q8H PRN (Reason: muscle spasticity) Qty: 18 0RF No Action fluoxetine 20 mg capsule 20 mg PO DAILY 30 Days Qty: 30 2RF lamotrigine 100 mg tablet 100 mg PO DAILY Qty: 30 1RF lurasidone [Latuda] 40 mg tablet 40 mg PO QPM 30 Days Qty: 30 2RF Rx Instructions: must administer with food (at least 350 calories) Nexplanon 68 mg Implant SUBDERMAL metformin 500 mg tablet 500 mg PO DAILY Qty: 30 0RF Primary Care Provider: Wu Herrera Referrals: Wu Herrera MD [Primary Care Provider] - Disposition Disposition: Home, Self Care
[2022-12-16] MEDS: Ondansetron 4 MG/2 ML Vial IV (17:07)
[2022-12-16] MEDS: Ketorolac 15 MG/ML Vial IV (17:08)
[2022-12-16 17:17] LABS: Bacteria 0 SEEN /hpf (None Seen); Mucous, Urine 0 SEEN /hpf (<or=2+); Red Blood Cells-Urine 0 SEEN /hpf (0-5); White Blood Cells 0 SEEN /hpf (0-5)
[2022-12-16 17:22] LABS: Absolute Lymphocyte Count 0.91 X10^3/uL (0.83-4.51); Absolute Neutrophil Count 9.1 X10^3/uL (2.0-7.7); Basophil# 0.02 X10^3/uL; Basophil% 0.2 % (0-1); Hemoglobin 14.1 g/dL (12.0-15.0); Lymphocyte # 0.91 X10^3/ul (0.83-4.51); Lymphocyte % 8.8 % (19-41); Mean Corp Hgb Conc 32.8 g/dL (32-36); Mean Corpuscular Hgb 32.3 pg (27.0-32.0); Mean Corpuscular Volume 98.4 fL (81-99); Mean Platelet Vol. 10.1 fl (6.2-12.0); Monocyte# 0.27 X10^3/uL; Monocyte% 2.6 % (0-10); NRBC Flagged by Analyzer 0 % (0-5); Neutrophil # 9.05 X10^3/uL (2.7-7.7); Platelet Count 239 K/mm3 (150-450); RBC Distribution Width SD 43.8 fl (35.1-43.9); Red Blood Count 4.37 M/mm3 (4.2-5.4); White Blood Count 10.3 K/mm3 (4.4-11.0)
[2022-12-16 17:23] LABS: Color, Urine Yellow (Yellow); Glucose, Dipstick Normal (Normal); Ketone-Dipstick Negative (Negative); Leukocyte Esterase-Dipstick Negative /ul (Negative); Nitrite-Dipstick Negative (Negative); Occult Blood-Urine Negative /ul (Negative); Protein-Dipstick Negative (Negative); Specific Gravity, Urine 1.015 (1.002-1.030); Urine Bilirubin Dipstick Negative (Negative); Urine Clarity Clear (Clear); Urine Urobilinogen Normal (Normal)
[2022-12-16 17:37] LABS: ALB/GLOB Ratio 1.1 RATIO (0.9-2.4); AST(SGOT) 12 U/L (15-37); Alanine Aminotransfer ALT/SGPT 46 U/L (13-56); Albumin, Serum 3.9 g/dL (3.2-5.0); Alkaline Phosphatase 88 U/L (45-117); Anion Gap 5 (5-15); BUN 13 mg/dL (7-18); BUN/Creat Ratio 16.8 RATIO (10-20); Calcium,Total 9.3 mg/dL (8.5-10.1); Chloride 109 mmol/L (98-107); Creatinine, Serum 0.77 mg/dL (0.55-1.02); EST Glomerular Filtration Rate 100 mL/min (>60); Est Glom Filt Rate - Afr Amer 121 mL/min (>60); Estimated Creatinine Clearance 92.18 ml/min; Globulin 3.5 g/dL (2.2-4.2); Glucose 110 mg/dL (74-106); Potassium 4.1 mmol/L (3.5-5.1); Protein, Total 7.4 g/dL (6.4-8.2); Sodium Level 142 mmol/L (136-145)
[2022-12-16 17:48] LABS: Squamous Epithelial Cells - UA 0-5 SEEN /hpf (5-10)
[2022-12-16 18:20] LABS: Internal QC Validated? YES +Cl - CLEAR BKGD; Pregnancy, Serum, hCG Quali. NEGATIVE Negative
[2022-12-16 18:57] VITALS: PULSE 73; RESP 16; O2SAT 97
--- NOTE | 2022-12-16 19:34 | CT_ITS ---
INDICATION: llq abdominal pain EXAMINATION: CT ABDOMEN AND PELVIS with CONTRAST - CT Abdomen And Pelvis W/ Contrast Injection TECHNIQUE: Multiple axial images were obtained of the abdomen and pelvis following administration of IV contrast. Planar reconstructions obtained. A radiation dose optimization technique was used for this scan. RADIATION DOSAGE (If Supplied By Facility): CTDIvol = ( 13.47 ) mGy, DLP = ( 524.84 ) mGycm IV Contrast dosage and agent: 100 mL Isovue-370 Oral contrast: None. COMPARISON: 10/04/2021 FINDINGS: LOWER THORAX: Lungs are clear. Cardiac contour is normal, no pericardial effusion. No coronary vascular calcifications noted. There are no significant coronary vascular calcifications. HEPATOBILIARY: Liver: The liver is homogeneous and shows no evidence of focal lesion. Gallbladder: Gallbladder is contracted. No radiodense calcifications. Pancreas: Pancreas is normal size configuration and density. No mass is noted. Spleen: The spleen is homogeneous and normal in size. . BOWEL: Stomach: The stomach is normal in size configuration, no evidence of focal masses, abnormal calcifications. No hiatal hernia noted. Bowel: Small and large have normal configuration, no masses or bowel obstruction noted. Moderate amount retained formed stool throughout the colon. No evidence diverticulitis. Appendix: The visualized appendix has normal appearance.: GENITOURINARY: Adrenals: Both adrenal glands are normal in size. Kidneys: Kidneys appear symmetric in size. No calcifications are seen in the collecting system. There is no hydronephrosis or surrounding fluid. Bladder: Bladder is moderately distended however no calcifications or masses noted. Pelvic organs: Normal appearance of the uterus and pelvic sidewalls. No abnormal fluid collections noted. RETROPERITONEUM: There is normal appearance of the abdominal aorta and inferior vena cava. LYMPH NODES: No evidence of retroperitoneal or para-aortic masses fluid collections or adenopathy. PERITONEAL CAVITY: No ascites noted ANTERIOR ABDOMINAL WALL: Normal, no hernia identified. BONES AND SOFT TISSUES: The skeleton shows no evidence for fractures or destructive lesions. OTHER: None CT/Abdomen/Pelvis W IV Cont ONLY IMPRESSION: 1. No masses bowel obstruction abscess free fluid or free air. No evidence diverticulitis. 2. Short segments of a normal appendix are present. 3. No evidence of renal calcifications or obstructive uropathy. 4. No evidence of cholelithiasis, gallbladder is contracted. Electronically Signed: Sj Lozano MD at 20:36 EDT ,
[2022-12-16 20:00] VITALS: RESP 17
[2022-12-16 21:16] VITALS: PULSE 63; RESP 18; O2SAT 99
== END 2022-12-16 21:17 | disposition home or self-care (01) ==
PROVIDERS: Emergency Provider Student in an Organized Health Care Education/Training Program; PCP Family Medicine; Visit Provider Student in an Organized Health Care Education/Training Program
DX: R10.2 Pelvic and perineal pain (principal); S39.012A Strain of muscle, fascia and tendon of lower back, initial encounter; F17.210 Nicotine dependence, cigarettes, uncomplicated; X58.XXXA Exposure to other specified factors, initial encounter
CPT/HCPCS: 74177; 76830; 80053; 81001; 84703; 85025; 93976; 96374; 96375; 99283; Q9967; A4216; J2405

== ENCOUNTER 2023-01-12 07:12 | Outpatient (RCR) | payer OTHER, SELFPAY | END 2023-01-22 14:54 | disposition home or self-care (01) | LOC: BHOG 07:12 | PROVIDERS: PCP Family Medicine; Referring Provider Psychiatry & Neurology Psychiatry; Visit Provider Psychiatry & Neurology Psychiatry | DX: F31.32 Bipolar disorder, current episode depressed, moderate (principal) ==

== ENCOUNTER 2023-04-12 14:45 | Emergency (ER) | payer MEDICAID, SELFPAY ==
[2023-04-12 14:46] VITALS: BP 135/69; PULSE 114; RESP 18; TEMP 36.1; O2SAT 99; BMI 28.5
--- NOTE | 2023-04-12 15:13 | EX.ED.DYSGE1 ---
HPI History of Present Illness Chief Complaint: Abscess Informant: patient Onset/Context/Timing Onset: Days Narrative Narrative: Patient presents secondary to abscess on the right buttock. She states she first noticed the lesion 3 days ago. She is not had any spontaneous drainage. She has had subjective fever and chills. She went to urgent care and then was sent to the emergency room. She denies possibility of . [facility] Medical History Abdominal bloating Alcohol use disorder Alcohol withdrawal Asthma Bipolar 1 disorder, depressed, moderate Constipation Desire for detoxification Generalized anxiety disorder GERD (gastroesophageal reflux disease) History of cocaine use History of marijuana use Migraines Osteopenia PTSD (post-traumatic stress disorder) Tobacco abuse Vitamin B12 deficiency Home Medications etonogestrel 68 mg subdermal implant (Nexplanon) subdermal control 05/15/21 [History Last Taken Unknown] metformin 500 mg tablet 500 mg PO DAILY #30 tabs 10/01/22 [Rx Last Taken Unknown] hydroxyzine HCl 25 mg tablet 25 mg PO TID PRN anxiety #90 tabs 02/05/23 [Rx Last Taken Unknown] carvedilol 3.125 mg tablet 3.125 mg PO DAILY 04/12/23 [History Last Taken Unknown] cephalexin 500 mg capsule 500 mg PO Q6 #40 CAPSULES 04/12/23 [Rx Last Taken Unknown] sulfamethoxazole 800 mg-trimethoprim 160 mg tablet (Bactrim DS) 1 tab PO BID #20 tabs 04/12/23 [Rx Last Taken Unknown] Allergy/AdvReac Type Severity Reaction Status Date / Time No Known Allergies Allergy Verified 04/12/23 14:47 Family History Other Alcoholism Anxiety Arthritis Asthma COPD (chronic obstructive pulmonary disease) Depression High cholesterol Social History Smoking Status: Current every day smoker tobacco type: cigarettes and e-cigarettes alcohol intake: former details: 5 months sober substance use type: does not use ROS ROS ED Constitutional Constitutional ED: Reports chills, fever(s) and subjective Eyes Eyes: Denies discharge from eye(s) ENT ENT ED: Denies discharge from eye(s), rhinorrhea or sore throat Cardiovascular Cardiovascular: Denies chest pain Respiratory/Chest Respiratory/Chest: Denies cough or dyspnea Gastrointestinal Gastrointestinal: Denies abdominal pain, nausea or vomiting Genitourinary Genitourinary ED: Denies dysuria Musculoskeletal Musculoskeletal: Denies back pain or extremity pain Integumentary Reports other Details: Abscess medial right buttock ; Denies Abrasions or rash Neurologic Neurologic: Denies headache(s) or weakness Psychiatric Psychiatric: Denies anxiety or depression Allergic/Immunologic Allergic/Immunologic ED: Denies lip swelling or urticaria EXAM Physical Exam Const Vital Signs: 04/12/23 14:46 Temperature 97 F L Temperature Source Temporal Pulse Rate 114 H Respiratory Rate 18 Blood Pressure 135/69 H Blood Pressure Mean 91 Pulse Ox 99 Oxygen Delivery Method Room Air Positive well nourished and well developed General Appearance ED: well developed HEENT Reports moist mucous membranes Eyes EOMs intact bilaterally Chest Wall inspection of chest normal and palpation of chest normal Resp normal respiratory effort and clear to auscultation bilaterally Cardio regular rate and regular rhythm GI non-tender GI Narrative: Patient has 2 small cutaneous abscesses on the medial inferior aspect of the right buttock. Mild erythema. Palpation: soft Extremity normal to inspection Neuro oriented x3 and no sensory deficits noted Motor Exam: strength 5/5 throughout Psych mental status grossly normal Skin Skin Narrative: Abscess as noted above MDM MDM MDM Narrative Medical decision making narrative: Let applied to the wound topically. After 15 minutes 2 cc of 1% lidocaine is infused locally. Wound is cleansed and a puncture wound made with a #11 blade. Return of pus is noted. Wound cleansed and irrigated. Dressing applied. Patient given Bactrim and Keflex here and prescriptions for the same will be sent to the pharmacy for her. Instructions given. Discharge Plan Triage Chief Complaint: Abscess ED Provider: Shruthi Andrews Dx/Rx/DC Orders Clinical Impression: Cutaneous abscess Instructions: ED Abscess Incision And Drainage Prescriptions: New sulfamethoxazole-trimethoprim [Bactrim DS] 800-160 mg tablet 1 tab PO BID Qty: 20 0RF cephalexin 500 mg capsule 500 mg PO Q6 Qty: 40 0RF No Action hydroxyzine HCl 25 mg tablet 25 mg PO TID PRN (Reason: anxiety) Qty: 90 2RF Nexplanon 68 mg Implant SUBDERMAL metformin 500 mg tablet 500 mg PO DAILY Qty: 30 0RF carvedilol 3.125 mg tablet 3.125 mg PO DAILY Patient Comments: take 1 tablet by mouth once daily Primary Care Provider: Wu Herrera Referrals: Wu Herrera MD [Primary Care Provider] - 1-2 Weeks Disposition Disposition: Home, Self Care
[2023-04-12] MEDS: Cephalexin 250 MG Capsule 500 MG PO (15:49)
[2023-04-12] MEDS: Smz/Tmp Ds Tablet 1 TABLET PO (15:49)
[2023-04-12] MEDS: Lidocaine/Epi/Tetracaine 50 ML 1 APPLIC TOPICAL (15:50)
[2023-04-12] MEDS: Lidocaine 1% (20 ml mdv) 20 ML Vial INFILT (15:50)
== END 2023-04-12 15:53 | disposition home or self-care (01) ==
PROVIDERS: Emergency Provider Emergency Medicine; PCP Family Medicine; Visit Provider Emergency Medicine
DX: L02.818 Cutaneous abscess of other sites (principal); F17.210 Nicotine dependence, cigarettes, uncomplicated; Z79.84 Long term (current) use of oral hypoglycemic drugs; Z79.899 Other long term (current) drug therapy
CPT/HCPCS: 99283

== ENCOUNTER 2023-05-08 23:54 | Emergency (ER) | payer MEDICAID, SELFPAY ==
[2023-05-08 23:57] VITALS: BP 147/78; PULSE 103; RESP 16; TEMP 36.5; O2SAT 99; BMI 29.7
--- NOTE | 2023-05-09 00:08 | ED.VIS.FEGU ---
HPI HPI - Female History of Present Illness Chief Complaint: Informant: patient Pain Pain: Positive for Pelvic Pain Onset: Days (2-3) Context: Gradual Onset Timing: Intermittent Quality: Positive for Cramping and Sharp Location: Suprapubic Current Severity: Moderate Maximum Severity: Moderate Bleeding Issue: Negative for Vaginal bleeding Vaginal Discharge Onset: Today (once) Quality: Positive for - (mucous) Severity: Light Associated Symptoms Associated Symptoms: Negative for Dysuria, Frequency, Urgency or Hematuria Last known menstrual period: 03/01/23 Test: Positive, Urine and Home Sexually: Positive for Active P: 0 Ab: 0 Narrative Narrative: Patient by home test, she has not seen OB yet but has an appointment on 05/19, no care yet, she started having lower abdominal discomfort a couple days ago, tonight she had a quarter sized amount of discharge which worried her and brought her to the ER at midnight. She denies any bleeding. No syncope, no urinary symptoms no back pain no vomiting no other symptoms. PFSH PFS Medical History Abdominal bloating Alcohol use disorder Alcohol withdrawal Asthma Bipolar 1 disorder, depressed, moderate Constipation Desire for detoxification Generalized anxiety disorder GERD (gastroesophageal reflux disease) History of cocaine use History of marijuana use Migraines Osteopenia PTSD (post-traumatic stress disorder) Tobacco abuse Vitamin B12 deficiency Home Medications hydroxyzine HCl 25 mg tablet 25 mg PO TID PRN anxiety #90 tabs 02/05/23 [Rx Last Taken Unknown] metoprolol succinate 25 mg tablet,extended release 24 hr 12.5 mg PO DAILY 05/08/23 [History Last Taken Unknown] omeprazole 20 mg capsule,delayed release 20 mg PO DAILY 05/08/23 [History Last Taken Unknown] Allergy/AdvReac Type Severity Reaction Status Date / Time No Known Allergies Allergy Verified 05/08/23 23:54 Family History Other Alcoholism Anxiety Arthritis Asthma COPD (chronic obstructive pulmonary disease) Depression High cholesterol Social History Smoking Status: Former smoker alcohol intake: former details: 5 months sober substance use type: does not use ROS ROS ED Constitutional Constitutional ED: Denies chills or fever(s) Eyes Eyes: Denies change in vision or diplopia ENT ENT ED: Denies rhinorrhea or sore throat Cardiovascular Cardiovascular: Denies chest pain or palpitations Respiratory/Chest Respiratory/Chest: Denies cough or dyspnea Gastrointestinal Gastrointestinal: Reports abdominal pain; Denies diarrhea, nausea or vomiting Genitourinary Genitourinary ED: Reports vaginal discharge; Denies dysuria, hematuria or vaginal bleeding Musculoskeletal Musculoskeletal: Denies back pain or neck pain Integumentary Denies abscess or rash Neurologic Neurologic: Denies headache(s), paresthesias or weakness Psychiatric Psychiatric: Denies anxiety or suicidal thoughts EXAM Physical Exam Const Vital Signs: 05/08/23 23:57 Temperature 97.7 F L Temperature Source Temporal Pulse Rate 103 H Respiratory Rate 16 Blood Pressure 147/78 H Blood Pressure Mean 101 Pulse Ox 99 Oxygen Delivery Method Room Air Positive well nourished and well developed General Appearance ED: well developed and NAD HEENT Reports moist mucous membranes normocephalic and atraumatic Eyes PERRL and EOMs intact bilaterally Neck full ROM and supple Resp normal respiratory effort and clear to auscultation bilaterally Cardio regular rate, regular rhythm and no murmurs GI non-tender and non-distended Auscultation: normoactive bowel sounds Palpation: soft Speculum Exam - Vagina: vaginal discharge; Negative for vaginal bleeding Back/Spine no CVA tenderness General Back: other FROM Extremity normal to inspection General Extremety ED: Negative for edema, pulses abnormal or tenderness General Extremity: Negative for edema or pulses abnormal Neuro oriented x3, CN's II-XII intact bilaterally and no sensory deficits noted Sensorium / Orientation: awake and alert Motor Exam: strength 5/5 throughout Skin no rashes or lesions noted and no wounds MDM MDM MDM Narrative Medical decision making narrative: I did a bedside ultrasound. [place]-rump length of what appears to be single live intrauterine is consistent with 8-week 5-day fetus, heart tones were measured at 169. Patient reassured at this time no further work-up emergently indicated, she is stable for discharge and close outpatient follow-up if she begins to have vaginal bleeding she should return to the ER. She is concerned about her blood pressure which was measured at 147/78 here in emergency department. At this time, I simply advise having this rechecked in the future. Patient is already on vitamins which she is advised to continue. Discharge Plan Triage Chief Complaint: ED Provider: Vincent Peterson Dx/Rx/DC Orders Clinical Impression: Vaginal discharge during in first trimester, Pelvic pain affecting in first trimester, antepartum, Episode of hypertension Instructions: 1st Trimester Prescriptions: No Action hydroxyzine HCl 25 mg tablet 25 mg PO TID PRN (Reason: anxiety) Qty: 90 2RF omeprazole 20 mg capsule,delayed release(DR/EC) 20 mg PO DAILY Patient Comments: take 1 capsule by mouth once daily metoprolol succinate 25 mg tablet extended release 24 hr 12.5 mg PO DAILY Patient Comments: take 1/2 tablet by mouth once daily Primary Care Provider: Wu Herrera Referrals: Wu Herrera MD [Primary Care Provider] - Jose Cruz Wilson MD [Med Staff - Active Staff] - Keep Sasha appointment Disposition Disposition: Home, Self Care
[2023-05-09] MEDS: Acetaminophen 325 MG Tablet 650 MG PO (00:51)
[2023-05-09 00:58] VITALS: PULSE 93; RESP 16; O2SAT 98
== END 2023-05-09 00:59 | disposition home or self-care (01) ==
PROVIDERS: Emergency Provider Emergency Medicine; PCP Family Medicine; Visit Provider Emergency Medicine
DX: O99.891 Other specified diseases and conditions complicating pregnancy (principal); O16.1 Unspecified maternal hypertension, first trimester; N89.8 Other specified noninflammatory disorders of vagina; R10.2 Pelvic and perineal pain; Z79.899 Other long term (current) drug therapy; Z87.891 Personal history of nicotine dependence; Z3A.00 Weeks of gestation of pregnancy not specified
CPT/HCPCS: 99282

== ENCOUNTER 2023-05-30 20:07 | Emergency (ER) | payer MEDICAID, SELFPAY ==
[2023-05-30 20:09] VITALS: BP 117/71; PULSE 86; RESP 16; TEMP 36.4; O2SAT 100; BMI 29.3
[2023-05-30 20:12] VITALS: BP 117/71; PULSE 86; RESP 18; TEMP 36.4; O2SAT 100
--- NOTE | 2023-05-30 20:27 | EDS_ITS ---
HPI History of Present Illness Chief Complaint: Weakness Informant: patient Onset/Context/Timing Onset: Days Context: Gradual Onset Timing: Continuous Quality: Nausea Location: Generalized Worsened by: Nothing Relieved by: Nothing Narrative Narrative: Patient presents with nausea, vomiting, and weakness that has been getting worse over the past few days. Patient states she is approximately 11 weeks . Patient states she has been unable to keep anything down for the past couple days. Patient denies any fevers or chills. Patient does admit to some diarrhea. Patient denies any dysuria or hematuria. Patient denies any abnormal vaginal bleeding or discharge. Patient denies any leakage of fluids. Patient denies any cramping. Patient states she has been trying Zofran at home with minimal improvement. [facility] Medical History Abdominal bloating Alcohol use disorder Alcohol withdrawal Asthma Bipolar 1 disorder, depressed, moderate Constipation Desire for detoxification Generalized anxiety disorder GERD (gastroesophageal reflux disease) History of cocaine use History of marijuana use Migraines Osteopenia PTSD (post-traumatic stress disorder) Tobacco abuse Vitamin B12 deficiency Home Medications hydroxyzine HCl 25 mg tablet 25 mg PO TID PRN anxiety #90 tabs 02/05/23 [Rx Last Taken Unknown] omeprazole 20 mg capsule,delayed release 20 mg PO DAILY 05/08/23 [History Last Taken Unknown] lamotrigine 25 mg tablet 25 mg PO ONCE #98 tabs 05/25/23 [Rx Last Taken Unknown] ondansetron 4 mg disintegrating tablet mg translingual PRN 05/25/23 [History Last Taken Unknown] vitamin#30 30 mg iron-10 mg iron-folic acid 1 mg-omg3 capsule cap PO 05/25/23 [History Last Taken Unknown] propranolol 10 mg tablet mg PO 05/25/23 [History Last Taken Unknown] nitrofurantoin monohydrate/macrocrystals 100 mg capsule 100 mg PO Q12 #10 CAPSULES 05/30/23 [Rx Last Taken Unknown] Allergy/AdvReac Type Severity Reaction Status Date / Time No Known Allergies Allergy Verified 05/30/23 20:08 Family History Other Alcoholism Anxiety Arthritis Asthma COPD (chronic obstructive pulmonary disease) Depression High cholesterol Social History Smoking Status: Former smoker alcohol intake: former details: 5 months sober substance use type: does not use ROS ROS ED Constitutional Constitutional ED: Denies chills or fever(s) Eyes Eyes: Denies blurry vision or change in vision ENT ENT ED: Denies rhinorrhea or sore throat Cardiovascular Cardiovascular: Reports chest pain; Denies palpitations Respiratory/Chest Respiratory/Chest: Denies cough or dyspnea Gastrointestinal Gastrointestinal: Reports diarrhea, nausea and vomiting; Denies melena Genitourinary Genitourinary ED: Denies dysuria or hematuria Musculoskeletal Musculoskeletal: Denies back pain or neck pain Integumentary Denies abscess or rash Neurologic Neurologic: Reports headache(s); Denies weakness Allergic/Immunologic Allergic/Immunologic ED: Denies mouth swelling or urticaria EXAM Physical Exam Const Vital Signs: 05/30/23 20:09 05/30/23 20:12 05/30/23 20:47 Temperature 97.6 F L 97.6 F L Temperature Source Temporal Temporal Pulse Rate 86 86 Respiratory Rate 16 18 Respiratory Effort Normal Respiratory Pattern Normal Blood Pressure 117/71 117/71 Blood Pressure Mean 86 86 Pulse Ox 100 100 Oxygen Delivery Method Room Air Room Air Positive well nourished and well developed General Appearance ED: well developed and NAD HEENT Reports moist mucous membranes Neck supple and no JVD Resp normal respiratory effort and clear to auscultation bilaterally Cardio regular rate and regular rhythm GI non-tender and non-distended Palpation: soft Neuro oriented x3, CN's II-XII intact bilaterally and no sensory deficits noted Sensorium / Orientation: alert Motor Exam: strength 5/5 throughout Psych mental status grossly normal MDM MDM MDM Narrative Medical decision making narrative: Differential diagnosis includes hyperemesis gravidarum, gastroenteritis, nausea and vomiting, and dehydration. CBC will be obtained to assess for leukocytosis and anemia. Comprehensive metabolic profile will be obtained to assess for hepatic function, renal function, and electrolyte abnormality. Urinalysis will be obtained to assess for urinary tract infection. Quantitative hCG will be obtained to assess for . Lab Data Attestation: I reviewed the patient's lab results. Lab results narrative: CBC was reviewed and was within normal limits. Comprehensive metabolic profile was reviewed and was within normal limits. Quantitative hCG was reviewed [place] [id number]. Urinalysis was reviewed. Leukocyte esterase was 100 with 10-25 white blood cells. There were 5-10 epithelial cells. Labs: Laboratory Results - last 24 hr 05/30/23 05/30/23 20:42 20:51 WBC 9.8 RBC 4.01 L Hgb 12.9 Hct 38.4 MCV 95.8 MCH 32.2 H MCHC 33.6 RDW Std Deviation 41.7 RDW Coeff of Reggie 11.9 Plt Count 221 MPV 10.5 Immature Gran % (Auto) 0.300 Neut % (Auto) 71.1 H Lymph % (Auto) 20.2 [place] % (Auto) 7.4 Eos % (Auto) 0.8 Baso % (Auto) 0.2 Absolute Neuts (auto) 7.0 Absolute Lymphs (auto) 1.99 Nucleated RBC % 0 Sodium 138 Potassium 3.4 L Chloride 108 H Carbon Dioxide 27.0 Anion Gap 3 L BUN 8 Creatinine 0.59 Estim Creat Clear Calc 113.82 Est GFR (MDRD) Af Amer 164 Est GFR (MDRD) Non-Af 135 BUN/Creatinine Ratio 13.5 Glucose 102 Calcium 8.8 Total Bilirubin 0.30 AST 10 L ALT 17 Alkaline Phosphatase 61 Total Protein 6.6 Albumin 3.3 Globulin 3.3 Albumin/Globulin Ratio 1.0 HCG, Quant 02002 H Urine Color Yellow Urine Clarity Sl. Cloudy Urine pH 6.0 Ur Specific [place] 1.020 Urine Protein 15 H Urine Glucose (UA) Normal Urine Ketones 5 H Urine Occult Blood 10 H Urine Nitrite Negative Urine Bilirubin Negative Urine Urobilinogen Normal Ur Leukocyte Esterase 100 H Urine RBC 0 SEEN Urine WBC 10-25 SEEN Ur Squamous Epith Cells 5-10 SEEN Urine Bacteria 0 SEEN Urine Mucus 0 SEEN Treatment and Re-Evaluation :: Patient was given IV fluids and Zofran. Patient was advised of her findings. Urine culture was ordered. Patient was given a dose of Macrobid here. Patient was given a prescription for Macrobid. Patient was instructed to follow-up with her [facility] in 5 to 7 days. Patient was instructed to start with sips of fluids and advance her diet as tolerated. Patient was instructed to return if worse in any way. Patient understood and was agreeable with the plan. All questions were answered. Discharge Plan Triage Chief Complaint: Weakness ED Provider: Ilia Aleman Dx/Rx/DC Orders Clinical Impression: Urinary tract infection, , Nausea and vomiting Instructions: ED Cystitis Female Adult, ED Vomiting (Adult), ED Established ... Prescriptions: New nitrofurantoin monohyd/m-cryst [nitrofurantoin monohyd/m-cryst] 100 mg capsule 100 mg PO Q12 Qty: 10 0RF No Action hydroxyzine HCl 25 mg tablet 25 mg PO TID PRN (Reason: anxiety) Qty: 90 2RF propranolol 10 mg tablet PO Patient Comments: take 1 tablet by mouth twice a day ondansetron 4 mg tablet,disintegrating translingual PRN Patient Comments: dissolve 1 tablet ON TONGUE every 8 hours if needed for nausea OR vomiting PNV #[id number] 30 mg iron-10 mg iron-1 mg capsule PO lamotrigine 25 mg tablet 25 mg PO ONCE Qty: 98 0RF Rx Instructions: Take 25 mg every day for 2 weeks, then 50 mg every day for 2 weeks then 100 mg every day omeprazole 20 mg capsule,delayed release(DR/EC) 20 mg PO DAILY Patient Comments: take 1 capsule by mouth once daily Primary Care Provider: Wu Herrera Referrals: Wu Herrera MD [Primary Care Provider] - 3-5 Days Disposition Disposition: Home, Self Care
[2023-05-30] MEDS: 0.9% Normal Saline (1000mL) 1,000 ML 1000 ML IV (20:42)
[2023-05-30] MEDS: Ondansetron 4 MG/2 ML Vial IV (20:42)
[2023-05-30 20:51] LABS: Absolute Lymphocyte Count 1.99 X10^3/uL (0.83-4.51); Basophil# 0.02 X10^3/uL; Basophil% 0.2 % (0-1); Eosinophil# 0.08 X10^3/uL; Eosinophils% 0.8 % (0-5); Hematocrit 38.4 % (37-47); Hemoglobin 12.9 g/dL (12.0-15.0); Lymphocyte # 1.99 X10^3/ul (0.83-4.51); Lymphocyte % 20.2 % (19-41); Mean Corp Hgb Conc 33.6 g/dL (32-36); Mean Corpuscular Hgb 32.2 pg (27.0-32.0); Mean Corpuscular Volume 95.8 fL (81-99); Mean Platelet Vol. 10.5 fl (6.2-12.0); Monocyte# 0.73 X10^3/uL; Monocyte% 7.4 % (0-10); NRBC Flagged by Analyzer 0 % (0-5); Neutrophil # 6.99 X10^3/uL (2.7-7.7); Neutrophil % 71.1 % (47-70); Platelet Count 221 K/mm3 (150-450); RBC Distribution Width CV 11.9 % (11.6-14.6); RBC Distribution Width SD 41.7 fl (35.1-43.9); Red Blood Count 4.01 M/mm3 (4.2-5.4); White Blood Count 9.8 K/mm3 (4.4-11.0)
[2023-05-30 20:55] LABS: Bacteria 0 SEEN /hpf (None Seen); Mucous, Urine 0 SEEN /hpf (<or=2+); Red Blood Cells-Urine 0 SEEN /hpf (0-5)
[2023-05-30 20:56] LABS: Color, Urine Yellow (Yellow); Glucose, Dipstick Normal (Normal); Ketone-Dipstick 5 mg/dl (Negative); Leukocyte Esterase-Dipstick 100 /ul (Negative); Nitrite-Dipstick Negative (Negative); Occult Blood-Urine 10 /ul (Negative); Protein-Dipstick 15 mg/dl (Negative); Urine Bilirubin Dipstick Negative (Negative); Urine Clarity Sl. Cloudy (Clear); Urine Urobilinogen Normal (Normal)
[2023-05-30 21:07] LABS: Squamous Epithelial Cells - UA 5-10 SEEN /hpf (5-10); White Blood Cells 10-25 SEEN /hpf (0-5)
[2023-05-30 21:07] LABS: AST(SGOT) 10 U/L (15-37); Alanine Aminotransfer ALT/SGPT 17 U/L (13-56); Albumin, Serum 3.3 g/dL (3.2-5.0); Alkaline Phosphatase 61 U/L (45-117); Anion Gap 3 (5-15); BUN 8 mg/dL (7-18); BUN/Creat Ratio 13.5 RATIO (10-20); Calcium,Total 8.8 mg/dL (8.5-10.1); Chloride 108 mmol/L (98-107); Creatinine, Serum 0.59 mg/dL (0.55-1.02); EST Glomerular Filtration Rate 135 mL/min (>60); Est Glom Filt Rate - Afr Amer 164 mL/min (>60); Estimated Creatinine Clearance 113.82 ml/min; Globulin 3.3 g/dL (2.2-4.2); Glucose 102 mg/dL (74-106); Potassium 3.4 mmol/L (3.5-5.1); Protein, Total 6.6 g/dL (6.4-8.2); Sodium Level 138 mmol/L (136-145)
[2023-05-30] MEDS: Nitrofurantoin Macrocrystals 100 MG Capsule PO (21:54)
[2023-05-30 22:19] VITALS: BP 111/83; PULSE 71; RESP 14; O2SAT 98
== END 2023-05-30 22:23 | disposition home or self-care (01) ==
PROVIDERS: Emergency Provider Emergency Medicine; PCP Family Medicine; Visit Provider Emergency Medicine
DX: O23.41 Unspecified infection of urinary tract in pregnancy, first trimester (principal); O21.0 Mild hyperemesis gravidarum; Z3A.11 11 weeks gestation of pregnancy; Z87.891 Personal history of nicotine dependence
CPT/HCPCS: 80053; 81001; 84702; 85025; 87077; 87086; 87088; 96374; 99283; J7030; A4216; J2405

== ENCOUNTER 2023-06-19 01:44 | Emergency (ER) | payer MEDICAID, SELFPAY ==
[2023-06-19 01:45] VITALS: BP 109/70; PULSE 100; RESP 16; TEMP 36.4; O2SAT 99; BMI 30.5
--- NOTE | 2023-06-19 01:52 | EDS_ITS ---
HPI History of Present Illness Chief Complaint: Complaint Detail of Chief Complaint: Bilateral inguinal pain, frequency, urgency and incomplete emptying Informant: patient Onset/Context/Timing Onset: Hours (Approximately 3 hours prior to presentation) Context: Sudden Onset Timing: Continuous Quality: Pain Location: Right and left inguinal area Current Severity: Mild Maximum Severity: Severe Worsened by: Movement, palpation Relieved by: Nothing Associated Symptoms Associated Symptoms: Nausea with Narrative Narrative: Patient is a 22-year-old G1, P0 Ab0 female who presents with bilateral inguinal pain that started approximately 3 hours prior to presentation. She was recently treated for urinary tract infection. She is reporting frequency, urgency and incomplete emptying. She did not denies objective fever. She has had chills. She denies headache, visual, ocular auditory symptoms. She denies upper respiratory tract infectious symptoms. There is no history of renal or ureteral calculi. There is a history ovarian cyst. She denies history of STI. She has had 2 ultrasounds with this . Both of them revealed a single live intrauterine . Of note there is a history of cocaine use, tobacco use, current alcohol use disorder/dependency. She also has psychiatric just order of posttraumatic stress disorder and bipolar type I disorder. Prior similar symptoms: No Recent Illness/Hospitalization: Yes (Urinary tract infection) [facility] Medical History Abdominal bloating Alcohol use disorder Alcohol withdrawal Asthma Bipolar 1 disorder, depressed, moderate Constipation Desire for detoxification Generalized anxiety disorder GERD (gastroesophageal reflux disease) History of cocaine use History of marijuana use Migraines Osteopenia PTSD (post-traumatic stress disorder) Tobacco abuse Vitamin B12 deficiency Home Medications hydroxyzine HCl 25 mg tablet 25 mg PO TID PRN anxiety #90 tabs 02/05/23 [Rx Last Taken Unknown] omeprazole 20 mg capsule,delayed release 20 mg PO DAILY 05/08/23 [History Last Taken Unknown] lamotrigine 25 mg tablet 25 mg PO ONCE #98 tabs 05/25/23 [Rx Last Taken Unknown] ondansetron 4 mg disintegrating tablet mg translingual PRN 05/25/23 [History Last Taken Unknown] vitamin#30 30 mg iron-10 mg iron-folic acid 1 mg-omg3 capsule cap PO 05/25/23 [History Last Taken Unknown] propranolol 10 mg tablet mg PO 05/25/23 [History Last Taken Unknown] nitrofurantoin monohydrate/macrocrystals 100 mg capsule 100 mg PO Q12 #10 CAPSULES 05/30/23 [Rx Last Taken Unknown] Allergy/AdvReac Type Severity Reaction Status Date / Time No Known Allergies Allergy Verified 06/19/23 01:45 Family History Other Alcoholism Anxiety Arthritis Asthma COPD (chronic obstructive pulmonary disease) Depression High cholesterol Surgical History no surgical history no surgical history Social History Smoking Status: Former smoker alcohol intake: former details: 5 months sober substance use type: does not use ROS ROS ED Constitutional Constitutional ED: Reports chills; Denies fever(s), subjective or sweats Eyes Eyes: Denies blurry vision or change in vision ENT ENT ED: Denies ear pain, rhinorrhea or sore throat Cardiovascular Cardiovascular: Denies chest pain or palpitations Respiratory/Chest Respiratory/Chest: Denies cough, dyspnea or dyspnea on exertion Gastrointestinal Gastrointestinal: Reports nausea; Denies abdominal pain, constipation or vomiting Genitourinary Genitourinary ED: Reports LMP (females 10-50) Details: Comment: (14 weeks gestation) and urinary frequency; Denies dysuria or hematuria Musculoskeletal Musculoskeletal: Denies arthralgias, back pain or myalgias Integumentary Denies rash Neurologic Neurologic: Denies headache(s) Psychiatric Psychiatric: Reports depression Endocrine Endocrinology: Denies cold intolerance or heat intolerance Hematologic/Lymphatic Hematologic/Lymphatic: Reports systems reviewed and no addt'l complaints, except as documented EXAM Physical Exam Const Vital Signs: 06/19/23 01:45 Temperature 97.6 F L Temperature Source Temporal Pulse Rate 100 Respiratory Rate 16 Blood Pressure 109/70 Blood Pressure Mean 83 Pulse Ox 99 Oxygen Delivery Method Room Air Positive well nourished and well developed Constitutional Narrative: Patient with a flat affect and depressed mood. General Appearance ED: well developed, NAD and pallor HEENT Reports moist mucous membranes HEENT Narrative: Head is atraumatic and normocephalic. External ears are normal. Nares patent. Eyes PERRL and EOMs intact bilaterally General Eye ED: Negative for pale conjunctiva or scleral icterus Neck no lymphadenopathy, supple and no JVD Chest Wall inspection of chest normal and palpation of chest normal Resp normal respiratory effort and clear to auscultation bilaterally Cardio regular rate, regular rhythm, S1 normal heart sound, S2 normal heart sound and no murmurs GI normal to inspection, nondistended, normoactive bowel sounds, non-tender, non- distended and no masses Narrative: There is pain and discomfort out of proportion to tactile stimuli with palpation of left right inguinal area. There is no lymphadenopathy. There is no palpable mass. Back/Spine no CVA tenderness Thoracic Spine / Upper Back: Negative for thoracic spinal tenderness Lumbar Spine / Lower Back: Negative for lumbar spinal tenderness Extremity normal to inspection General Extremety ED: Negative for edema or tenderness General Extremity: Negative for edema Neuro oriented x3, CN's II-XII intact bilaterally and no sensory deficits noted Sensorium / Orientation: alert Psych Mood & Affect: depressed Skin no rashes or lesions noted, no wounds and skin turgor normal General Skin Exam: elasticity normal and pallor; Negative for jaundice MDM MDM MDM Narrative Medical decision making narrative: With history of recent urinary tract infection and feels that her symptoms have not cleared will obtain UA to assess for recurrent urinary tract infection. With no cervical lymphadenopathy or mass uncertain what is causing her discomfort. Will have nurse check for heart tone. CBC was obtained to assess white count differential. History & Record Review Additional record(s) reviewed:: Prior outpatient record (Unable to access ultrasound results through the [facility] via [employer] Prior ED visit and Prior labs (UA obtained on May 30 revealed pyuria with no bacteria. Urine culture revealed contaminated specimen.) Lab Data Attestation: I reviewed the patient's lab results. Lab results narrative: CBC is unremarkable. UA is unremarkable. There is no pyuria. Macro is negative for all. Microscopic reveals 0 RBCs and 0 WBCs. Labs: Laboratory Results - last 24 hr 06/19/23 06/19/23 01:50 02:02 WBC 10.0 RBC 3.96 L Hgb 12.9 Hct 36.8 L MCV 92.9 MCH 32.6 H MCHC 35.1 RDW Std Deviation 41.9 RDW Coeff of Reggie 12.2 Plt Count 232 MPV 10.2 Immature Gran % (Auto) 0.200 Neut % (Auto) 64.7 Lymph % (Auto) 25.6 [place] % (Auto) 8.3 Eos % (Auto) 1.0 Baso % (Auto) 0.2 Absolute Neuts (auto) 6.5 Absolute Lymphs (auto) 2.57 Nucleated RBC % 0 Urine Color Yellow Urine Clarity Clear Urine pH 7.0 Ur Specific [place] 1.010 Urine Protein Negative Urine Glucose (UA) Normal Urine Ketones Negative Urine Occult Blood Negative Urine Nitrite Negative Urine Bilirubin Negative Urine Urobilinogen Normal Ur Leukocyte Esterase Negative Urine RBC 0 SEEN Urine WBC 0 SEEN Ur Squamous Epith Cells 0-5 SEEN Urine Bacteria RARE Urine Mucus 0 SEEN Treatment and Re-Evaluation :: Patient was informed of results. The cause of her inguinal pain is unknown. Suspect frequency and urgency is due to her . There is no evidence of urinary tract infection. Patient was informed of her results. She was discharged to home. She was given opportunity ask questions and none were asked. Discharge Plan Triage Chief Complaint: Complaint ED Provider: Too Bob Dx/Rx/DC Orders Clinical Impression: Bilateral groin pain, Bipolar 1 disorder, depressed, severe, PTSD (post- traumatic stress disorder), Second trimester Instructions: ED Pelvic Pain Preg UKO 2 or 3 Tri Prescriptions: No Action hydroxyzine HCl 25 mg tablet 25 mg PO TID PRN (Reason: anxiety) Qty: 90 2RF propranolol 10 mg tablet PO Patient Comments: take 1 tablet by mouth twice a day ondansetron 4 mg tablet,disintegrating translingual PRN Patient Comments: dissolve 1 tablet ON TONGUE every 8 hours if needed for nausea OR vomiting PNV #[id number] [id number] 30 mg iron-10 mg iron-1 mg capsule PO lamotrigine 25 mg tablet 25 mg PO ONCE Qty: 98 0RF Rx Instructions: Take 25 mg every day for 2 weeks, then 50 mg every day for 2 weeks then 100 mg every day omeprazole 20 mg capsule,delayed release(DR/EC) 20 mg PO DAILY Patient Comments: take 1 capsule by mouth once daily nitrofurantoin monohyd/m-cryst [nitrofurantoin monohyd/m-cryst] 100 mg capsule 100 mg PO Q12 Qty: 10 0RF Primary Care Provider: Wu Herrera Referrals: Wu Herrera MD [Primary Care Provider] - Jose Cruz Wilson MD [Med Staff - Active Staff] - 1 Week if not improving Activity Restrictions/Additional Instructions: 1. Avoid movement or activity increases your pain 2. Apply ice to your right and left groin area 6-10 times a day. 3. Take 600 mg of Tylenol for your pain 4. There is no evidence of urinary tract infection Disposition Disposition: Home, Self Care
[2023-06-19 02:06] LABS: Mucous, Urine 0 SEEN /hpf (<or=2+); Red Blood Cells-Urine 0 SEEN /hpf (0-5); White Blood Cells 0 SEEN /hpf (0-5)
[2023-06-19 02:07] LABS: Absolute Lymphocyte Count 2.57 X10^3/uL (0.83-4.51); Absolute Neutrophil Count 6.5 X10^3/uL (2.0-7.7); Basophil# 0.02 X10^3/uL; Basophil% 0.2 % (0-1); Hematocrit 36.8 % (37-47); Hemoglobin 12.9 g/dL (12.0-15.0); Lymphocyte # 2.57 X10^3/ul (0.83-4.51); Lymphocyte % 25.6 % (19-41); Mean Corp Hgb Conc 35.1 g/dL (32-36); Mean Corpuscular Hgb 32.6 pg (27.0-32.0); Mean Corpuscular Volume 92.9 fL (81-99); Mean Platelet Vol. 10.2 fl (6.2-12.0); Monocyte# 0.83 X10^3/uL; Monocyte% 8.3 % (0-10); NRBC Flagged by Analyzer 0 % (0-5); Neutrophil # 6.48 X10^3/uL (2.7-7.7); Neutrophil % 64.7 % (47-70); Platelet Count 232 K/mm3 (150-450); RBC Distribution Width CV 12.2 % (11.6-14.6); RBC Distribution Width SD 41.9 fl (35.1-43.9); Red Blood Count 3.96 M/mm3 (4.2-5.4)
[2023-06-19 02:12] LABS: Color, Urine Yellow (Yellow); Glucose, Dipstick Normal (Normal); Ketone-Dipstick Negative (Negative); Leukocyte Esterase-Dipstick Negative /ul (Negative); Nitrite-Dipstick Negative (Negative); Occult Blood-Urine Negative /ul (Negative); Protein-Dipstick Negative (Negative); Urine Bilirubin Dipstick Negative (Negative); Urine Clarity Clear (Clear); Urine Urobilinogen Normal (Normal)
[2023-06-19 02:27] LABS: Bacteria RARE /hpf (None Seen); Squamous Epithelial Cells - UA 0-5 SEEN /hpf (5-10)
[2023-06-19 02:59] VITALS: PULSE 65; RESP 18; O2SAT 99
== END 2023-06-19 02:59 | disposition home or self-care (01) ==
PROVIDERS: Emergency Provider Emergency Medicine; PCP Family Medicine; Visit Provider Emergency Medicine
DX: O99.891 Other specified diseases and conditions complicating pregnancy (principal); F31.9 Bipolar disorder, unspecified; O99.342 Other mental disorders complicating pregnancy, second trimester; F43.10 Post-traumatic stress disorder, unspecified; R10.10 Upper abdominal pain, unspecified; Z87.891 Personal history of nicotine dependence; Z3A.00 Weeks of gestation of pregnancy not specified
CPT/HCPCS: 81001; 85025; 99283; A4216

== ENCOUNTER 2023-07-21 21:32 | Emergency (ER) | payer MEDICAID, SELFPAY ==
[2023-07-21 21:33] VITALS: BP 122/77; PULSE 119; RESP 17; TEMP 36.7; O2SAT 100; BMI 28.3
--- NOTE | 2023-07-21 23:24 | EKG12_ITS ---
Test Reason : DYSRHYTHMIA Blood Pressure : / mmHG Vent. Rate : 111 BPM Atrial Rate : 111 BPM P-R Int : 128 ms QRS Dur : 078 ms QT Int : 336 ms P-R-T Axes : 032 049 -36 degrees QTc Int : [address] & T wave abnormality, consider inferior ischemia Abnormal ECG Confirmed by JEN JO, JAYASHREE ([id number]), editor in chief YUDY ROSEN ([id number]) on 07/22/2023 9:15:34 AM Referred By: Confirmed By:JAYASHREE LI MD
--- NOTE | 2023-07-21 23:25 | ED.VIS.DYS ---
HPI History of Present Illness Chief Complaint: Shortness of Breath Informant: patient Associated Symptoms cough Chest Pain: Positive for None Narrative Narrative: Patient states she has had URI symptoms for the past 4 or 5 days, she tested positive for COVID at home, but today she has been short of breath and having chest tightness that radiates to her left shoulder. Nonpleuritic. Her coughing/dyspnea is worse with exertion. She denies any leg pain or swelling or orthopnea. No syncopal episodes. States she was checking her pulse oximetry at home and it was in the 80s while she was symptomatic. She states she was diagnosed with asthma before but she does not have an inhaler and states although she complains of her chest being tight this does not feel like her asthma. She states she currently is 19 weeks and she has been feeling the baby move but less than usual in the last couple days. She denies any GI symptoms. No urinary symptoms. She does have some headaches and subjective low-grade fevers. She has no history of a DVT or PE. She has had COVID before and she has had some of the vaccines for it before. [facility] Medical History Abdominal bloating Alcohol use disorder Alcohol withdrawal Asthma Bipolar 1 disorder, depressed, moderate Constipation Desire for detoxification Generalized anxiety disorder GERD (gastroesophageal reflux disease) History of anorexia nervosa History of cocaine use History of marijuana use Migraines Osteopenia PTSD (post-traumatic stress disorder) Tobacco abuse Vitamin B12 deficiency Home Medications vitamin#30 30 mg iron-10 mg iron-folic acid 1 mg-omg3 capsule cap PO 05/25/23 [History Last Taken Unknown] propranolol 10 mg tablet mg PO 05/25/23 [History Last Taken Unknown] lamotrigine 100 mg tablet 100 mg PO DAILY 30 days #30 tabs 06/29/23 [Rx Last Taken Unknown] aspirin 81 mg tablet,delayed release mg PO 07/08/23 [History Last Taken Unknown] folic acid 1 mg tablet 1 mg PO DAILY 07/08/23 [History Last Taken Unknown] lurasidone 20 mg tablet 20 mg PO QPM #30 tabs 07/08/23 [Rx Last Taken Unknown] albuterol sulfate 2.5 mg/3 mL (0.083 %) solution for nebulization 2.5 mg (3 mL) inhalation Q4H PRN #25 vials 07/22/23 [Rx Last Taken Unknown] albuterol sulfate 90 mcg/actuation aerosol inhaler (Ventolin HFA) 1 - 2 puff inhalation Q4H PRN PRN Wheezing ##1 07/22/23 [Rx Last Taken Unknown] prednisone 20 mg tablet 40 mg (2 x 20 mg) PO DAILY #10 TABLETS 07/22/23 [Rx Last Taken Unknown] Allergy/AdvReac Type Severity Reaction Status Date / Time No Known Allergies Allergy Verified 07/21/23 21:36 Family History Other Alcoholism Anxiety Arthritis Asthma COPD (chronic obstructive pulmonary disease) Depression High cholesterol Social History Smoking Status: Former smoker alcohol intake: former details: 5 months sober substance use type: does not use ROS ROS ED Constitutional Constitutional ED: Reports body ache(s), chills, fatigue, fever(s), headache(s) and malaise Eyes Eyes: Denies change in vision or diplopia ENT ENT ED: Denies rhinorrhea or sore throat Cardiovascular Cardiovascular: Reports palpitations and other Details: Patient states she has a history of PVCs and feels like she is having them despite being on propranolol Respiratory/Chest Respiratory/Chest: Reports chest tightness, cough, dyspnea and dyspnea on exertion Gastrointestinal Gastrointestinal: Denies abdominal pain, diarrhea, nausea or vomiting Genitourinary Genitourinary ED: Denies dysuria or hematuria Musculoskeletal Musculoskeletal: Denies back pain or neck pain Integumentary Denies abscess or rash Neurologic Neurologic: Reports headache(s); Denies paresthesias or weakness Psychiatric Psychiatric: Denies suicidal ideation or suicidal thoughts EXAM Physical Exam Const Vital Signs: 07/21/23 21:33 07/21/23 23:36 07/22/23 01:30 Temperature 98.1 F Temperature Source Temporal Pulse Rate 119 H 99 Respiratory Rate 17 18 Respiratory Effort Normal Respiratory Depth Normal Respiratory Pattern Normal Blood Pressure 122/77 H 110/67 Blood Pressure Mean 92 81 Pulse Ox 100 100 Oxygen Delivery Method Room Air Room Air Room Air Positive well nourished and well developed Constitutional Narrative: Malaised-appearing, no distress General Appearance ED: well developed and NAD HEENT Reports moist mucous membranes normocephalic and atraumatic Eyes PERRL and EOMs intact bilaterally Neck full ROM, no lymphadenopathy, supple and no JVD Resp normal respiratory effort and clear to auscultation bilaterally Resp Narrative: Conversive in full sentences Cardio regular rate, regular rhythm and no murmurs Rate: tachycardic GI non-tender and non-distended Auscultation: normoactive bowel sounds Palpation: soft Back/Spine no CVA tenderness General Back: other FROM Extremity normal to inspection and no calf tenderness General Extremety ED: Negative for edema, pulses abnormal or tenderness General Extremity: Negative for edema or pulses abnormal Neuro oriented x3, CN's II-XII intact bilaterally and no sensory deficits noted Sensorium / Orientation: awake and alert Motor Exam: strength 5/5 throughout Psych Mood & Affect: anxious Thought Process: normal thought process Skin no rashes or lesions noted and no wounds MDM MDM MDM Narrative Medical decision making narrative: Differential here includes COVID pneumonitis, myocarditis, pulmonary embolus, bacterial pneumonia superinfection, as well as asthma. I discussed the latter with the patient, she states she has not tried an albuterol inhaler and this does not feel like her asthma. I discussed with her that I am not able to diagnose whether this is asthma or not, and I would prefer to focus on evaluating her for things that we could measure. This includes pulmonary embolus which could include a D-dimer that has a high likelihood given the fact that she has COVID and is or being nonspecifically abnormal, leading to a CT angio of the chest, which does put her child at somewhat of a risk of radiation exposure although it is well-documented that was shielding at this state of the risk is acceptable, and the amount of radiation exposure is low and below the limit of that which has been excepted to cause defects. Patient consents to CT angiography after the D-dimer came back at 0.64 slightly elevated. Prior to this her chest x-ray 1 view on my interpretation shows minor groundglass abnormalities in the bases, consistent with mild COVID pneumonitis, but otherwise unremarkable. Radiology in agreement, worse on the right. However, she was sent for CTA as above, and it does not show any pulmonary parenchymal abnormalities. No central PE although it is nondiagnostic for subsegmental. I think with her D-dimer at the level it is at and her history she very unlikely has an acute nonvisualized PE. Her pulse ox has been 100% on room air here. We ambulated her, she did not have hypoxemia, remaining 98% on room air, having some mild dyspnea on exertion and exertional tachycardia in the 120s. The rest of her workup was unremarkable. Also I did a bedside ultrasound of the baby. There is good movement and heart tones are 158. Patient reassured, I will offer her treatment for her asthma and close outpatient follow-up but otherwise she can be discharged home. She is amenable to the empiric asthma treatment, prednisone 40 mg a day for 6 days with the first dose being given here, she has access to a nebulizer machine so she is given a prescription for the vials of liquid as well as a rescue inhaler to take with her. Lab Data Attestation: I reviewed the patient's lab results. Labs: Laboratory Results - last 24 hr 07/21/23 23:30 WBC 7.3 RBC 3.65 L Hgb 11.9 L Hct 35.4 L MCV 97.0 MCH 32.6 H MCHC 33.6 RDW Std Deviation 45.7 H RDW Coeff of Reggie 12.9 Plt Count 197 MPV 10.5 Immature Gran % (Auto) 0.100 Neut % (Auto) 75.1 H Lymph % (Auto) 14.4 L [place] % (Auto) 9.3 Eos % (Auto) 1.0 Baso % (Auto) 0.1 Absolute Neuts (auto) 5.5 Absolute Lymphs (auto) 1.05 Nucleated RBC % 0 D-Dimer Quant (PE/DVT) 0.64 H* Sodium 138 Potassium 3.3 L Chloride 110 H Carbon Dioxide 22.0 Anion Gap 6 BUN 5 L Creatinine 0.43 L Estim Creat Clear Calc 190.09 Est GFR (MDRD) Af Amer 238 Est GFR (MDRD) Non-Af 197 BUN/Creatinine Ratio 11.7 Glucose 96 Calcium 8.9 Troponin I High Sens < 3 L Radiography Diagnostic Testing: Clinical Impression(s) from Imaging Studies Chest X-Ray 07/21/23 23:38 IMPRESSION: Findings are suggestive of interval right lower lobe atelectasis and/or developing infiltrate. Electronically Signed: Marissa Haney MD at 0:25 EST , Chest CTA 07/22/23 00:03 IMPRESSION: Nearly Nondiagnostic study to evaluate for pulmonary embolism. No centrally located filling defects. This is related to the motion artifact and the timing of the contrast. Hepatic steatosis. Partially visualized constipation. Partially visualized borderline splenomegaly. There is stable visualized prominent residual thymus which is slightly greater than expected for a patient this age recommend correlation with thymic laboratory values.. Electronically Signed: Marissa Haney MD at 1:17 EST , Rhythm Strip Rhythm Strip: Sinus Tach Rate: 115 Ectopy: None EKG Initial EKG: Attestation: I personally reviewed and interpreted this EKG as follows: Interpretation: No Acute Injury Pattern, Sinus Tachycardia (111) and Non-Specific ST Changes Discharge Plan Triage Chief Complaint: Shortness of Breath ED Provider: Vincent Peterson Dx/Rx/DC Orders Clinical Impression: COVID-19, Acute dyspnea, Second trimester Instructions: Coronavirus Disease 2019 (COVID-19): Caring for Yourself or Others Prescriptions: New albuterol sulfate 2.5 mg /3 mL (0.083 %) solution for nebulization 2.5 mg inhalation Q4H PRN Qty: 25 0RF Rx Instructions: Use q4 hours and PRN for wheezing prednisone 20 mg tablet 40 mg PO DAILY Qty: 10 0RF albuterol sulfate [Ventolin HFA] 90 mcg/actuation HFA aerosol inhaler 1 - 2 puff inhalation Q4H PRN PRN (Reason: Wheezing) Qty: 1 0RF No Action propranolol 10 mg tablet PO Patient Comments: take 1 tablet by mouth twice a day PNV #[id number] 30 mg iron-10 mg iron-1 mg capsule PO folic acid 1 mg tablet 1 mg PO DAILY Patient Comments: Take 1 tablet by mouth once daily. aspirin 81 mg tablet,delayed release (DR/EC) PO Patient Comments: take 1 tablet by mouth once daily *START AT 12 WEEKS* lurasidone 20 mg tablet 20 mg PO QPM Qty: 30 2RF Rx Instructions: must administer with food (at least 350 calories) lamotrigine 100 mg tablet 100 mg PO DAILY 30 Days Qty: 30 2RF Primary Care Provider: Wu Herrera Referrals: Wu Herrera MD [Primary Care Provider] - 3-5 Days if not improving Disposition Disposition: Home, Self Care
--- NOTE | 2023-07-21 23:38 | RAD_ITS ---
STUDY: X-RAY CHEST REASON FOR EXAM: Female, 22 years old. Cp/sob, covid TECHNIQUE: Single AP portable view of the chest. COMPARISON: January 05, 2021 chest x-ray FINDINGS: There is a small focus of increased density within the right lower lobe not seen on the prior studies. There is no demonstrated pleural abnormality. Normal size heart. Normal mediastinum and wesley. Normal visualized pulmonary arteries. Normal visualized aortic arch and descending thoracic aorta. Normal visualized thoracic spine. Normal visualized ribs, clavicles, and shoulders. There is no demonstrated abnormality of the visualized soft tissue structures of the upper abdomen. RAD/Chest 1 View (Portable) IMPRESSION: Findings are suggestive of interval right lower lobe atelectasis and/or developing infiltrate. Electronically Signed: Marissa Haney MD at 0:25 EST ,
[2023-07-21 23:41] LABS: Absolute Lymphocyte Count 1.05 X10^3/uL (0.83-4.51); Absolute Neutrophil Count 5.5 X10^3/uL (2.0-7.7); Basophil# 0.01 X10^3/uL; Basophil% 0.1 % (0-1); Eosinophil# 0.07 X10^3/uL; Hematocrit 35.4 % (37-47); Hemoglobin 11.9 g/dL (12.0-15.0); Lymphocyte # 1.05 X10^3/ul (0.83-4.51); Lymphocyte % 14.4 % (19-41); Mean Corp Hgb Conc 33.6 g/dL (32-36); Mean Corpuscular Hgb 32.6 pg (27.0-32.0); Mean Platelet Vol. 10.5 fl (6.2-12.0); Monocyte# 0.68 X10^3/uL; Monocyte% 9.3 % (0-10); NRBC Flagged by Analyzer 0 % (0-5); Neutrophil # 5.49 X10^3/uL (2.7-7.7); Neutrophil % 75.1 % (47-70); Platelet Count 197 K/mm3 (150-450); RBC Distribution Width CV 12.9 % (11.6-14.6); RBC Distribution Width SD 45.7 fl (35.1-43.9); Red Blood Count 3.65 M/mm3 (4.2-5.4); White Blood Count 7.3 K/mm3 (4.4-11.0)
[2023-07-22 00:02] LABS: D-Dimer Quantitative (DVT/PE) 0.64 FEU/ug/m (0.27-0.49)
--- NOTE | 2023-07-22 00:03 | CT_ITS ---
STUDY: CTA CHEST REASON FOR EXAM: Female, 22 years old. cp/sob, elevated d-dimer; covid -- - please shield; pt consents RADIATION DOSAGE (If Supplied By Facility): CTDIvol = ( 15.79 ) mGy, DLP = ( 399.49 ) mGycm TECHNIQUE: The examination was performed with the intravenous administration of IV 100mL Isovue-370. Post-processing of the angiographic images was performed, with multiplanar reformation and 3D reconstruction. This study is limited to evaluate for pulmonary embolism. There is no visualized artifact throughout the study. There is limited contrast enhanced appearance of the lungs . Individualized dose optimization techniques were used for this CT. There is motion artifact throughout. COMPARISON: CT abdomen and pelvis December 16, 2022, CT angiogram September 27, 2020 CT scan chest FINDINGS: There is limited enhancement of the main pulmonary artery and right and left pulmonary arteries. There is limited enhancement , nondiagnostic, of the bilateral peripheral pulmonary arteries. Normal thoracic aorta and visualized great vessels. There is no demonstrated aortic dissection. Normal heart and pericardium. Normal mediastinum. There is stable visualized residual thymus. Normal visualized trachea and bronchi. The lungs are well expanded. Normal pulmonary parenchyma. Normal pleura. Normal chest wall structures. Normal osseous structures. The liver is enlarged and fatty infiltrated. There is borderline splenomegaly. There is abundant stool within the visualized colon allowing for motion artifact. CT/CTA Chest W/WO Contrast IMPRESSION: Nearly Nondiagnostic study to evaluate for pulmonary embolism. No centrally located filling defects. This is related to the motion artifact and the timing of the contrast. Hepatic steatosis. Partially visualized constipation. Partially visualized borderline splenomegaly. There is stable visualized prominent residual thymus which is slightly greater than expected for a patient this age recommend correlation with thymic laboratory values.. Electronically Signed: Marissa Haney MD at 1:17 EST ,
[2023-07-22 00:05] LABS: Anion Gap 6 (5-15); BUN 5 mg/dL (7-18); BUN/Creat Ratio 11.7 RATIO (10-20); Calcium,Total 8.9 mg/dL (8.5-10.1); Chloride 110 mmol/L (98-107); Creatinine, Serum 0.43 mg/dL (0.55-1.02); EST Glomerular Filtration Rate 197 mL/min (>60); Est Glom Filt Rate - Afr Amer 238 mL/min (>60); Estimated Creatinine Clearance 190.09 ml/min; Glucose 96 mg/dL (74-106); Potassium 3.3 mmol/L (3.5-5.1); Sodium Level 138 mmol/L (136-145); Troponin-I HS < 3 pg/mL (3.0-54.0)
[2023-07-22 01:30] VITALS: BP 110/67; PULSE 99; RESP 18; O2SAT 100
[2023-07-22 01:34] VITALS: O2SAT 100
[2023-07-22] MEDS: predniSONE 20 MG Tablet 40 MG PO (01:44)
== END 2023-07-22 01:50 | disposition home or self-care (01) ==
PROVIDERS: Emergency Provider Emergency Medicine; PCP Family Medicine; Visit Provider Emergency Medicine
DX: O98.512 Other viral diseases complicating pregnancy, second trimester (principal); O99.891 Other specified diseases and conditions complicating pregnancy; U07.1 COVID-19; R06.00 Dyspnea, unspecified; Z3A.19 19 weeks gestation of pregnancy; Z87.891 Personal history of nicotine dependence
CPT/HCPCS: 71045; 71275; 80048; 84484; 85025; 85379; 93005; 99283; Q9967

== ENCOUNTER 2023-08-14 16:53 | Outpatient (CLI) | payer MEDICAID, SELFPAY ==
[2023-08-14 17:02] VITALS: PULSE 96; O2SAT 99
[2023-08-14 17:04] VITALS: BP 124/73; PULSE 88
[2023-08-14 17:09] VITALS: TEMP 36.9
[2023-08-14 17:10] VITALS: BMI 31.2
[2023-08-14 17:30] LABS: Color, Urine Yellow (Yellow); Glucose, Dipstick Normal (Normal); Ketone-Dipstick Negative (Negative); Leukocyte Esterase-Dipstick 25 /ul (Negative); Nitrite-Dipstick Negative (Negative); Occult Blood-Urine Negative /ul (Negative); Protein-Dipstick Negative (Negative); Urine Bilirubin Dipstick Negative (Negative); Urine Clarity Clear (Clear); Urine Urobilinogen Normal (Normal)
--- NOTE | 2023-08-16 11:20 | OB.TRI.NOTE ---
HPI - General General Date of Admission: 08/14/23 Date of Service: 08/14/23 Chief Complaint: pelvic pain HPI Narrative BRODERICK ZHAO, is a 22 F who presents 1 para 0 at 22 weeks with some pelvic pain and possible UTI symptoms. She denied any vaginal bleeding or leaking fluid. Maternal Data Information Final KELLIE: 12/14/23 Gestational age: 22 weeks [facility] PFS Medical History Abdominal bloating Alcohol use disorder Alcohol withdrawal Asthma Bipolar 1 disorder, depressed, moderate Constipation Desire for detoxification Generalized anxiety disorder GERD (gastroesophageal reflux disease) History of anorexia nervosa History of cocaine use History of marijuana use Migraines Osteopenia PTSD (post-traumatic stress disorder) Tobacco abuse Vitamin B12 deficiency Home Medications vitamin#30 30 mg iron-10 mg iron-folic acid 1 mg-omg3 capsule cap PO .every day 05/25/23 [History Last Taken 08/14/23] propranolol 10 mg tablet mg PO 05/25/23 [History Last Taken Unknown] aspirin 81 mg tablet,delayed release 81 mg PO .every day covid 07/08/23 [History Last Taken 08/14/23] folic acid 1 mg tablet 1 mg PO DAILY 07/08/23 [History Last Taken Unknown] lurasidone 20 mg tablet 20 mg PO QPM #30 tabs 07/08/23 [Rx Last Taken Unknown] albuterol sulfate 2.5 mg/3 mL (0.083 %) solution for nebulization 2.5 mg (3 mL) inhalation Q4H PRN #25 vials 07/22/23 [Rx Last Taken Unknown] albuterol sulfate 90 mcg/actuation aerosol inhaler (Ventolin HFA) 1 - 2 puff inhalation Q4H PRN PRN Wheezing ##1 07/22/23 [Rx Last Taken Unknown] Allergy/AdvReac Type Severity Reaction Status Date / Time No Known Allergies Allergy Verified 08/14/23 17:12 Family History Other Alcoholism Anxiety Arthritis Asthma COPD (chronic obstructive pulmonary disease) Depression High cholesterol Social History Smoking Status: Former smoker alcohol intake: former details: 5 months sober substance use type: does not use NST FHR Rate Baby A Baseline: 140 Variability:: Minimal and Moderate Accelerations:: None Decelerations:: None NST Reactive:: Appropriate for gestational age FHR Category:: Category I Uterine Activity:: no ctxs Assessment & Plan (1) 22 weeks gestation of : PLAN: 22-week nulliparous patient complaining of pelvic pain. No evidence UTI. heart tones reassuring for gestational age. Return or follow-up in the office as needed or return for routine visits.
== END 2023-08-14 17:50 | disposition home or self-care (01) ==
LOC: WPOUT 16:56 → WP 16:57
PROVIDERS: PCP Family Medicine; Referring Provider Obstetrics & Gynecology; Visit Provider Obstetrics & Gynecology
DX: O99.891 Other specified diseases and conditions complicating pregnancy (principal); O99.512 Diseases of the respiratory system complicating pregnancy, second trimester; R10.2 Pelvic and perineal pain; J45.909 Unspecified asthma, uncomplicated; Z79.51 Long term (current) use of inhaled steroids; Z79.82 Long term (current) use of aspirin; Z3A.22 22 weeks gestation of pregnancy; Z87.891 Personal history of nicotine dependence
CPT/HCPCS: 59025; 59050; 81002

== ENCOUNTER 2023-09-09 21:52 | Outpatient (CLI) | payer MEDICAID, SELFPAY ==
[2023-09-09 22:08] VITALS: BP 123/76; PULSE 96; TEMP 37.5
[2023-09-09 22:38] LABS: Color, Urine Yellow (Yellow); Glucose, Dipstick Normal (Normal); Ketone-Dipstick Negative (Negative); Leukocyte Esterase-Dipstick 25 /ul (Negative); Nitrite-Dipstick Negative (Negative); Occult Blood-Urine Negative /ul (Negative); Protein-Dipstick Negative (Negative); Urine Bilirubin Dipstick Negative (Negative); Urine Clarity Clear (Clear); Urine Urobilinogen Normal (Normal)
[2023-09-09 23:00] VITALS: BMI 31.8
--- NOTE | 2023-09-10 12:32 | OB.TRI.NOTE ---
HPI - General General Date of Admission: 09/09/23 Date of Service: 09/09/23 Chief Complaint: cramping HPI Narrative BRODERICK ZHAO, is a 22 F who presents 1 para 0 at 26-3/7 weeks presents complaining of cramping. No dysuria, no fevers or chills. PFSH PFS Medical History Abdominal bloating Alcohol use disorder Alcohol withdrawal Asthma Bipolar 1 disorder, depressed, moderate Constipation Desire for detoxification Generalized anxiety disorder GERD (gastroesophageal reflux disease) History of anorexia nervosa History of cocaine use History of marijuana use Migraines Osteopenia PTSD (post-traumatic stress disorder) Tobacco abuse Vitamin B12 deficiency Home Medications vitamin#30 30 mg iron-10 mg iron-folic acid 1 mg-omg3 capsule cap PO .every day 05/25/23 [History Last Taken 08/14/23] propranolol 10 mg tablet mg PO 05/25/23 [History Last Taken Unknown] aspirin 81 mg tablet,delayed release 81 mg PO .every day covid 07/08/23 [History Last Taken 08/14/23] folic acid 1 mg tablet 1 mg PO DAILY 07/08/23 [History Last Taken Unknown] lurasidone 20 mg tablet 20 mg PO QPM #30 tabs 07/08/23 [Rx Last Taken Unknown] albuterol sulfate 2.5 mg/3 mL (0.083 %) solution for nebulization 2.5 mg (3 mL) inhalation Q4H PRN #25 vials 07/22/23 [Rx Last Taken Unknown] albuterol sulfate 90 mcg/actuation aerosol inhaler (Ventolin HFA) 1 - 2 puff inhalation Q4H PRN PRN Wheezing ##1 07/22/23 [Rx Last Taken Unknown] Allergy/AdvReac Type Severity Reaction Status Date / Time No Known Allergies Allergy Verified 09/09/23 22:28 Family History Other Alcoholism Anxiety Arthritis Asthma COPD (chronic obstructive pulmonary disease) Depression High cholesterol Social History Smoking Status: Former smoker alcohol intake: former details: 5 months sober substance use type: does not use NST FHR Rate Baby A Baseline: 135 Variability:: Moderate Accelerations:: 10 x 10 Decelerations:: None NST Reactive:: Appropriate for gestational age FHR Category:: Category I Uterine Activity:: no regular ctxs Assessment & Plan (1) 26 weeks gestation of : PLAN: Nonspecific abdominal pain at 26 weeks gestation. Urinalysis is negative. No evidence of labor. No evidence of acute issue. Patient was given discharge instructions follow-up in the office as scheduled or as needed. Diagnosis is musculoskeletal discomfort of . (2) High-risk in second trimester:
== END 2023-09-09 22:55 | disposition home or self-care (01) ==
LOC: WPOUT 21:56 → WP 21:57
PROVIDERS: PCP Family Medicine; Visit Provider Obstetrics & Gynecology
DX: O99.891 Other specified diseases and conditions complicating pregnancy (principal); R10.9 Unspecified abdominal pain; Z79.82 Long term (current) use of aspirin; Z3A.26 26 weeks gestation of pregnancy
CPT/HCPCS: 59025; 59050; 81002; 99221; G0378

== ENCOUNTER 2023-10-03 19:05 | Outpatient (CLI) | payer MEDICAID, SELFPAY ==
[2023-08-14 17:09] VITALS: RESP 16
[2023-09-09 22:08] VITALS: RESP 18
[2023-10-03 19:40] VITALS: BP 120/69; PULSE 93; RESP 18; TEMP 37.2
[2023-10-03 19:51] VITALS: BMI 31.9
[2023-10-03 19:54] VITALS: BP 120/67; PULSE 97
[2023-10-03 20:10] VITALS: BP 108/66; PULSE 83
[2023-10-03 20:18] LABS: Hematocrit 35.9 % (37-47); Mean Corp Hgb Conc 33.4 g/dL (32-36); Mean Corpuscular Hgb 32.8 pg (27.0-32.0); Mean Corpuscular Volume 98.1 fL (81-99); Mean Platelet Vol. 10.8 fl (6.2-12.0); Platelet Count 197 K/mm3 (150-450); RBC Distribution Width CV 13.7 % (11.6-14.6); RBC Distribution Width SD 49.3 fl (35.1-43.9); Red Blood Count 3.66 M/mm3 (4.2-5.4); White Blood Count 8.5 K/mm3 (4.4-11.0)
[2023-10-03 20:26] VITALS: BP 129/76; PULSE 97
[2023-10-03 20:32] LABS: AST(SGOT) 16 U/L (15-37); Alanine Aminotransfer ALT/SGPT 15 U/L (13-56); Creatinine, Serum 0.44 mg/dL (0.55-1.02); EST Glomerular Filtration Rate 189 mL/min (>60); Est Glom Filt Rate - Afr Amer 229 mL/min (>60); Estimated Creatinine Clearance 197.24 ml/min; Uric Acid 3.6 mg/dL (2.6-6.0)
[2023-10-03 20:34] LABS: Protein, Urine (Random) 6.1 mg/dL (<11.9); Protein:Creat Ratio 308 mg/g CRE (0-200)
[2023-10-03 20:39] VITALS: BP 121/63; PULSE 92
[2023-10-03 20:47] LABS: ROM Internal Control Test YES-OK TO RESULT pt. (Internal QC); ROM Patient Test Negative (Negative); Record Kit Lot#, ROM+ K1374
[2023-10-03 20:54] VITALS: BP 125/73; PULSE 93
--- NOTE | 2023-10-13 13:43 | OB.TRI.NOTE ---
HPI - General General Date of Admission: 10/03/23 Date of Service: 10/03/23 HPI Narrative BRODERICK ZHAO, is a 22 F who presents at 29w5d with KELLIE 12/13/22 for welling, headache, fatigue, nausea, vaginal spotting, and rule out rupture of membranes. [facility] Medical History Abdominal bloating Alcohol use disorder Alcohol withdrawal Asthma Bipolar 1 disorder, depressed, moderate Constipation Desire for detoxification Generalized anxiety disorder GERD (gastroesophageal reflux disease) History of anorexia nervosa History of cocaine use History of marijuana use Migraines Osteopenia PTSD (post-traumatic stress disorder) Tobacco abuse Vitamin B12 deficiency Home Medications vitamin#30 30 mg iron-10 mg iron-folic acid 1 mg-omg3 capsule 1 cap PO .every day 05/25/23 [History Last Taken 10/03/23] propranolol 10 mg tablet 10 mg PO TID PRN PVCs 05/25/23 [History Last Taken 10/03/23] aspirin 81 mg tablet,delayed release 81 mg PO .every day covid 07/08/23 [History Last Taken 10/03/23] folic acid 1 mg tablet 1 mg PO DAILY 07/08/23 [History Last Taken Unknown] albuterol sulfate 2.5 mg/3 mL (0.083 %) solution for nebulization 2.5 mg (3 mL) inhalation Q4H PRN asthma #25 vials 07/22/23 [Rx Last Taken 09/04/23] albuterol sulfate 90 mcg/actuation aerosol inhaler (Ventolin HFA) 1 - 2 puff inhalation Q4H PRN PRN Wheezing ##1 07/22/23 [Rx Last Taken Unknown] lurasidone 20 mg tablet 20 mg PO QPM #30 tabs 10/06/23 [Rx Last Taken Unknown] Allergy/AdvReac Type Severity Reaction Status Date / Time No Known Allergies Allergy Verified 10/06/23 11:08 Family History Other Alcoholism Anxiety Arthritis Asthma COPD (chronic obstructive pulmonary disease) Depression High cholesterol Social History Smoking Status: Former smoker alcohol intake: former details: 5 months sober substance use type: does not use NST FHR Rate Baby A Baseline: 130 Variability:: Moderate Accelerations:: 10 x 10 Decelerations:: None NST Reactive:: Yes Uterine Activity:: None Assessment & Plan (1) 29 weeks gestation of : PLAN: Plan 1) No signs of preeclampsia, labor, ROM or other concerns 2) Reactive NST 3) d/C home and follow up outpatient
== END 2023-10-03 20:57 | disposition home or self-care (01) ==
LOC: WPOUT 19:09 → WP 19:09
PROVIDERS: PCP Family Medicine; Referring Provider Advanced Practice Midwife; Visit Provider Advanced Practice Midwife
DX: O47.03 False labor before 37 completed weeks of gestation, third trimester (principal); O99.513 Diseases of the respiratory system complicating pregnancy, third trimester; J45.909 Unspecified asthma, uncomplicated; Z79.51 Long term (current) use of inhaled steroids; Z79.82 Long term (current) use of aspirin; Z79.899 Other long term (current) drug therapy; Z3A.29 29 weeks gestation of pregnancy
CPT/HCPCS: 59025; 59050; 82565; 82570; 84112; 84156; 84450; 84460; 84550; 85027; 99221; G0378

== ENCOUNTER 2023-11-27 12:42 | Outpatient (CLI) | payer MEDICAID, SELFPAY ==
[2023-11-27 13:10] VITALS: BMI 32.8
[2023-11-27 13:35] VITALS: BP 125/76; PULSE 81; RESP 16; O2SAT 99
[2023-11-27 14:11] LABS: ROM Internal Control Test YES-OK TO RESULT pt. (Internal QC); ROM Patient Test Negative (Negative)
--- NOTE | 2023-11-29 14:11 | OB.TRI.NOTE ---
HPI - General General Date of Service: 11/27/23 HPI Narrative BRODERICK ZHAO, is a 22 F who presents 37w4d KELLIE 12/14/23. Presents from office today, audible deceleration on NST and further monitoring recommended. Possible ROM as increased leakage of fluid and decreased movement. PFSH PFSH Medical History Abdominal bloating Alcohol use disorder Alcohol withdrawal Asthma Bipolar 1 disorder, depressed, moderate Constipation Desire for detoxification Generalized anxiety disorder GERD (gastroesophageal reflux disease) History of anorexia nervosa History of cocaine use History of marijuana use Migraines Osteopenia PTSD (post-traumatic stress disorder) Tobacco abuse Vitamin B12 deficiency Home Medications ?Medication ?Instructions ?Recorded ?Last Taken ?Type vitamin#30 30 mg iron-10 1 cap PO .every day 05/25/23 11/27/23 06:00 History mg iron-folic acid 1 mg-omg3 capsule propranolol 10 mg tablet 10 mg PO BID PRN PVCs 05/25/23 11/27/23 06:00 History aspirin 81 mg tablet,delayed 81 mg PO .every day covid 07/08/23 11/27/23 06:00 History release albuterol sulfate 2.5 mg/3 mL 2.5 mg (3 mL) inhalation Q4H PRN 07/22/23 09/04/23 Rx (0.083 %) solution for nebulization asthma #25 vials albuterol sulfate 90 mcg/actuation 1 - 2 puff inhalation Q4H PRN PRN 07/22/23 Unknown Rx aerosol inhaler (Ventolin HFA) Wheezing ##1 lurasidone 20 mg tablet 20 mg PO QPM #30 tabs 10/06/23 Unknown Rx Allergy/AdvReac Type Severity Reaction Status Date / Time No Known Allergies Allergy Verified 11/27/23 13:10 Family History Other Alcoholism Anxiety Arthritis Asthma COPD (chronic obstructive pulmonary disease) Depression High cholesterol Social History Smoking Status: Former smoker alcohol intake: former details: 5 months sober substance use type: does not use NST FHR Rate Baby A Baseline: 120 Variability:: Moderate Accelerations:: 15 x 15 Decelerations:: None NST Reactive:: Yes Uterine Activity:: None Assessment & Plan (1) Decreased movement: (2) 37 weeks gestation of : (3) Vaginal discharge: PLAN: Plan 1) Vitals stable 2) Labs normal 3) ROM plus negative 4) Good movement on unit and reactive NST 5) D/C home
== END 2023-11-27 14:50 | disposition home or self-care (01) ==
LOC: WPOUT 12:51 → WP 12:52
PROVIDERS: PCP Family Medicine; Referring Provider Advanced Practice Midwife; Visit Provider Advanced Practice Midwife
DX: O36.8130 Decreased fetal movements, third trimester, not applicable or unspecified (principal); Z79.51 Long term (current) use of inhaled steroids; Z79.82 Long term (current) use of aspirin; Z79.899 Other long term (current) drug therapy; Z3A.37 37 weeks gestation of pregnancy
CPT/HCPCS: 59025; 59050; 84112; 99221; G0378

== ENCOUNTER 2023-12-08 19:19 | Inpatient (IN) | payer MEDICAID, SELFPAY ==
[2023-12-08] VITALS (8 sets, daily range): BP systolic 120–138; BP diastolic 73–92; PULSE 61–86; RESP 16; TEMP 36.6–37.3; O2SAT 97–100; BMI 33.3
--- NOTE | 2023-12-08 19:41 | PCM.HP.OB ---
HPI - General General Date of Admission: 12/08/23 HPI Narrative BRODERICK ZHAO, is a 22 F who presents for induction. Maternal Data Information Final KELLIE: 12/14/23 Gestational age: 39&1 [facility]SH [facility] Medical History (Updated 12/08/23 @ 19:[address] Jose Cruz Wilson MD) History of cocaine use Tobacco abuse History of anorexia nervosa Vitamin B12 deficiency Abdominal bloating Constipation History of marijuana use Generalized anxiety disorder Bipolar 1 disorder, depressed, moderate PTSD (post-traumatic stress disorder) Osteopenia GERD (gastroesophageal reflux disease) Asthma Migraines (~12/08/23) Alcohol withdrawal Desire for detoxification Alcohol use disorder Home Medications ?Medication ?Instructions ?Recorded ?Last Taken ?Type vitamin#30 30 mg iron-10 1 cap PO .every day 05/25/23 11/27/23 06:00 History mg iron-folic acid 1 mg-omg3 capsule propranolol 10 mg tablet 10 mg PO BID PRN PVCs 05/25/23 11/27/23 06:00 History aspirin 81 mg tablet,delayed 81 mg PO .every day covid 07/08/23 11/27/23 06:00 History release Allergy/AdvReac Type Severity Reaction Status Date / Time No Known Allergies Allergy Verified 12/08/23 19:57 Family History Other Alcoholism Anxiety Arthritis Asthma COPD (chronic obstructive pulmonary disease) Depression High cholesterol Social History Smoking Status: Former smoker alcohol intake: former details: 5 months sober substance use type: does not use NST FHR Rate Baby A Baseline: 135 Variability:: Moderate Accelerations:: 15 x 15 Decelerations:: None Uterine Activity:: quiet Vital Signs Vital Signs Vital Signs: 12/08/23 19:34 12/08/23 19:34 12/08/23 19:34 Temperature 97.9 F Temperature Source Temporal Pulse Rate Respiratory Rate 16 Blood Pressure BP Systolic BP Diastolic Pulse Ox 12/08/23 19:35 12/08/23 19:35 12/08/23 19:38 Temperature Temperature Source Pulse Rate 86 Respiratory Rate Blood Pressure 129/80 H BP Systolic 129 BP Diastolic 80 Pulse Ox 97 12/08/23 19:38 Temperature Temperature Source Pulse Rate 83 Respiratory Rate Blood Pressure BP Systolic BP Diastolic Pulse Ox Physical Exam Const alert, oriented x3 and no apparent distress GI soft to palpation, non-tender and non-distended Inspection: gravid external exam normal Narrative: cvx - 2/60/-3 Labs Labs Labs: Hct 35.9 % (37-47) L Hgb 12.0 g/dL (12.0-15.0) Chlamydia DNA (YAYO) Negative (Negative) N.gonorrhoeae DNA (YAYO) Negative (Negative) Miscellaneous Test Assessment & Plan (1) 39 weeks gestation of : COMMENT: @ 39&1 (2) Depression: QUALIFIERS: Depression Type: unspecified Qualified Code(s): F32.A - Depression, unspecified PLAN: Plan Admit to L&D Elective induction - intracervical mock placed. PLan for pitocin. EFW - less thatn 4500g, patient with adequate pelvis GBS negative Pain - epidural as desired Routine care
[2023-12-08] MEDS: Lactated Ringers 1,000 ML 50 ML IV (19:45)
[2023-12-08] MEDS: 0.9% Normal Saline Single 100 ML IV.SOLN. INTRA-UTER (19:56)
[2023-12-08 20:22] LABS: Absolute Neutrophil Count 5.3 X10^3/uL (2.0-7.7); Basophil# 0.02 X10^3/uL; Basophil% 0.2 % (0-1); Eosinophil# 0.07 X10^3/uL; Eosinophils% 0.9 % (0-5); Hematocrit 34.5 % (37-47); Hemoglobin 11.3 g/dL (12.0-15.0); Lymphocyte % 23.7 % (19-41); Mean Corp Hgb Conc 32.8 g/dL (32-36); Mean Corpuscular Hgb 31.7 pg (27.0-32.0); Mean Corpuscular Volume 96.9 fL (81-99); Mean Platelet Vol. 12.9 fl (6.2-12.0); Monocyte# 0.71 X10^3/uL; Monocyte% 8.9 % (0-10); NRBC Flagged by Analyzer 0 % (0-5); Neutrophil # 5.28 X10^3/uL (2.7-7.7); Neutrophil % 65.8 % (47-70); Platelet Count 160 K/mm3 (150-450); RBC Distribution Width CV 13.3 % (11.6-14.6); RBC Distribution Width SD 47.2 fl (35.1-43.9); Red Blood Count 3.56 M/mm3 (4.2-5.4)
[2023-12-08 21:03] LABS: Syphilis Antibodies Non-reactive
[2023-12-08 21:29] LABS: Amphetamine Urine VISTA NEGATIVE (<1000 ng/mL); Barbiturate Urine VISTA NEGATIVE (< 200 ng/mL); Benzodiazepine Urine VISTA NEGATIVE (< 200 ng/mL); Cocaine Urine VISTA NEGATIVE (< 300 ng/mL); Ecstacy Urine VISTA NEGATIVE (< 500 ng/mL); Methadone Urine VISTA NEGATIVE (< 300 ng/mL); PCP Urine VISTA NEGATIVE (< 25 ng/mL); THC Urine VISTA NEGATIVE (< 50 ng/mL); Vista UDS pH Range 6
[2023-12-08] MEDS: Oxytocin 15 Units/NS 250ml 15 UNITS/250 ML IV.SOLN 2 UNITS IV (22:03)
[2023-12-08] MEDS: Penicillin G Pot 5,000,000 UNITS in 0.9% Normal Saline (100mL MB+) 100 ML 150 UNITS IV (22:43)
[2023-12-09] VITALS (53 sets, daily range): BP systolic 117–157; BP diastolic 67–102; PULSE 55–110; RESP 12–16; TEMP 36.1–36.8; O2SAT 94–100
[2023-12-09] MEDS: Penicillin G 3,000,000 Units 50 ML 100 UNITS IV ×3 (02:48→10:30)
[2023-12-09] MEDS: fentaNYL 100 MCG/2 ML Ampul IV (03:00)
[2023-12-09] MEDS: LACTATED RINGERS 500 ML 999 ML IV (07:55)
--- NOTE | 2023-12-09 07:56 | PCM.PN.BLA ---
Progress Note Patient seen at bedside, doing well. Vaginal exam performed /. AROM performed. Clear fluid. Continue pitocin. Anticipate .
[2023-12-09] MEDS: Acetaminophen 500 MG Tablet PO (08:03)
[2023-12-09] MEDS: fentaNYL-bupivacaine (epidural) 100 ML BAG EPIDURAL (08:20)
[2023-12-09] MEDS: Lactated Ringers 1,000 ML 50 ML IV (08:43)
--- NOTE | 2023-12-09 12:16 | EX.PCM.OBRPT ---
Vaginal Delivery Operative Information Date of Procedure: 12/09/23 Pre-Operative Diagnosis: 39 weeks, Elective IOL , High risk Post-Operative Diagnosis: same, live male infant Surgery / Procedure Performed: Spontaneous Vaginal Delivery Type of Anesthesia: Epidural Drain: Ordonez to straight drain Estimated Blood Loss: 50 Time of Delivery: 12:05 Findings Description of Procedure: Patient progressed to fully dilated. Upon my arrival head is at the perineum. Good maternal pushing efforts of delivered the infant's head followed by the anterior shoulder and the posterior shoulder without complication. The rest the 's body delivered without complication. The was placed on the mother's chest for immediate skin to skin. Delayed cord clamping was performed. Cord was clamped and cut. Pitocin was started. First-degree vaginal laceration appreciated. Krmjst-gb-[id number] on a 3-0 Rapide was placed for hemostasis. Presentation: Vertex Amniotic Membrane Rupture Type: Artificial Amniotic Fluid Description: Clear Placental Delivery Description: Expressed Placenta Disposition: [facility] Specimen(s) Removed: Placenta Cord Vessel Description: 3 Vessels Cord Entanglement: None A Gender: Male (1 minute): 9 (5 minute): 10 Delayed Cord Clamping: Yes Post Vaginal Delivery Medications Given After Delivery: IV Pitocin Episiotomy Description: None Laceration: Vaginal Extension/lac (Repaired with 3-0 Rapide) and 1st degree Complication Complications: None
[2023-12-09] MEDS: Oxytocin 15 Units/NS 250ml 15 UNITS/250 ML IV.SOLN 83 UNITS IV (12:40)
[2023-12-09 14:49] LABS: Hematocrit 35.4 % (37-47); Hemoglobin 11.5 g/dL (12.0-15.0); Mean Corp Hgb Conc 32.5 g/dL (32-36); Mean Corpuscular Hgb 31.8 pg (27.0-32.0); Mean Corpuscular Volume 97.8 fL (81-99); Platelet Count 151 K/mm3 (150-450); RBC Distribution Width CV 13.4 % (11.6-14.6); RBC Distribution Width SD 47.5 fl (35.1-43.9); Red Blood Count 3.62 M/mm3 (4.2-5.4); White Blood Count 13.8 K/mm3 (4.4-11.0)
[2023-12-09 14:59] LABS: AST(SGOT) 19 U/L (15-37); Alanine Aminotransfer ALT/SGPT 14 U/L (13-56); Creatinine, Serum 0.61 mg/dL (0.55-1.02); EST Glomerular Filtration Rate 130 mL/min (>60); Est Glom Filt Rate - Afr Amer 157 mL/min (>60); Estimated Creatinine Clearance 145.28 ml/min; Protein:Creat Ratio 505 mg/g CRE (0-200); Uric Acid 6.2 mg/dL (2.6-6.0)
[2023-12-09] MEDS: Ibuprofen 600 MG Tablet PO (18:25)
[2023-12-09] MEDS: Acetaminophen 500 MG Tablet 1000 MG PO (21:58)
[2023-12-10] MEDS: hydrOXYzine PAM 25 MG Capsule 50 MG PO (00:28)
[2023-12-10 03:51] VITALS: BP 133/76; PULSE 64; PULSE 66; RESP 15; TEMP 36.4; O2SAT 99
--- NOTE | 2023-12-10 04:57 | NURSING ---
this RN entered room for pt rounding. pt resting in bed pumping. sleeping on back in open crib with crib next to fob whom is sleeping on couch. pt tearful, flat affect noted. Pt stated this shift im afraid to go to sleep when hes in the room and im just so stressed that im not doing anything right. emotional support provided and reassurance given. will continue to monitor
[2023-12-10] MEDS: Acetaminophen 500 MG Tablet 1000 MG PO ×2 (05:13→20:54)
[2023-12-10 07:39] VITALS: BP 132/83; PULSE 81; O2SAT 99
[2023-12-10 07:55] VITALS: BP 132/82; PULSE 80; RESP 16; TEMP 36.6; O2SAT 99
[2023-12-10] MEDS: Ibuprofen 600 MG Tablet PO ×2 (07:58→19:03)
--- NOTE | 2023-12-10 08:28 | PCM.PN.OB ---
Subjective Subjective Patient is doing well. She denies headache, vision changes, upper abdominal pain, nausea, vomiting. She notices some vaginal soreness today. Pain is controlled. She is ambulating and voiding without difficulty. She is tolerating a regular diet without nausea or vomiting. She feels her appetite is decreased. She is pumping. Lochia is normal. She denies chest pain, shortness of breath, leg pain. Objective Data Objective Data Vital Signs: Vital Signs Temp Pulse Resp BP Pulse Ox O2 Del Method 97.6 F L 81 15 132/83 H 99 Room Air 12/10/23 03:51 12/10/23 07:39 12/10/23 03:51 12/10/23 07:39 12/10/23 07:39 12/10/23 03:51 Oxygen Delivery Method Room Air Weight: 182 lb Body Mass Index (BMI) 33.3 Intake & Output: Intake and Output for Last 24 Hours 12/08/23 12/09/23 12/10/23 23:59 23:59 23:59 Intake Total 111.33 / 111.33 2332.00 / 2332.00 Output Total 550 / 550 Balance 111.33 / 111.33 1782.00 / 1782.00 Lab / Micro Data 12/09/23 14:30 12/09/23 14:30 Labs: Laboratory Results - last 24 hr 12/09/23 14:30: WBC 13.8 H, RBC 3.62 L, Hgb 11.5 L, Hct 35.4 L, MCV 97.8, MCH 31.8, MCHC 32.5, RDW Std Deviation 47.5 H, RDW Coeff of Reggie 13.4, Plt Count 151, MPV 13.0 H, Creatinine 0.61, Estim Creat Clear Calc 145.28, Est GFR (MDRD) Af Amer 157, Est GFR (MDRD) Non-Af 130, Uric Acid 6.2 H, AST 19, ALT 14, U Random Total Protein 28.0 H, Urine Creatinine 55.50, Protein/Creatinin Ratio 505 H Physical Exam Const alert and no apparent distress Constitutional Narrative: Patient is pumping General Appearance: comfortable Assessment & Plan (1) Depression: QUALIFIERS: Depression Type: unspecified Qualified Code(s): F32.A - Depression, unspecified PLAN: She is established with psych. Social work consult prior to discharge. (2) Alcohol dependence: (3) Bipolar 1 disorder, depressed, severe: (4) History of anorexia nervosa: (5) PTSD (post-traumatic stress disorder): (6) History of cocaine use: (7) PVC (premature ventricular contraction): (8) Vaginal delivery: PLAN: The patient is day 1 from a vaginal delivery. Continue to monitor blood pressure. She denies any symptoms of preeclampsia this morning. Discussed signs and symptoms of preeclampsia with the patient. Discussed if blood pressures start to trend up may need to add on blood pressure medication. Routine care.
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
[2023-12-10 14:08] VITALS: BP 136/82; PULSE 85
[2023-12-10 14:15] VITALS: BP 136/82; PULSE 85; RESP 16; TEMP 36.8
[2023-12-10 20:29] VITALS: BP 137/75; PULSE 81; RESP 16; TEMP 36.7
[2023-12-11] VITALS (7 sets, daily range): BP systolic 129–142; BP diastolic 77–88; PULSE 75–86; RESP 14–16; TEMP 36.6–36.9; O2SAT 98–99
[2023-12-11] MEDS: Ibuprofen 600 MG Tablet PO ×2 (01:40→08:51)
--- NOTE | 2023-12-11 08:21 | PCM.PN.OB ---
Subjective Subjective Patient is doing well this morning. She has a mild headache that she attributes to exhaustion. No vision changes or right upper quadrant pain. No nausea or vomiting. She is eating well. She is ambulating voiding without difficulty. Lochia is normal. She offers no complaints this morning. Objective Data Objective Data Vital Signs: Vital Signs Temp Pulse Resp BP Pulse Ox O2 Del Method 98.4 F 85 16 142/88 H 99 Room Air 12/11/23 01:41 12/11/23 01:41 12/11/23 01:41 12/11/23 01:41 12/10/23 07:55 12/11/23 01:41 Oxygen Delivery Method Room Air Weight: 182 lb Body Mass Index (BMI) 33.3 Intake & Output: Intake and Output for Last 24 Hours 12/09/23 12/10/23 12/11/23 23:59 23:59 23:59 Intake Total 2332.00 / 2332.00 Output Total 550 / 550 Balance 1782.00 / 1782.00 Lab / Micro Data 12/09/23 14:30 12/09/23 14:30 Physical Exam Const alert and no apparent distress General Appearance: comfortable HEENT normocephalic Resp normal respiratory effort GI soft to palpation, non-tender and non-distended Extremity no calf tenderness Extremity Narrative: 1+ pitting edema bilaterally Patellar reflexes 2+ Assessment & Plan (1) Vaginal delivery: PLAN: Patient is day 2 from a vaginal delivery. She is doing well. She has no symptoms of preeclampsia this morning. Her last several blood pressures were elevated with systolic blood pressures in the 140s. She states she usually takes her propranolol 10 mg once every morning, otherwise her anxiety is not well-controlled. She has not been receiving the propranolol during her admission. Will give her dose of propranolol this morning and check blood pressures every 2 hours. Discussed with patient may need to add additional blood pressure medication. Possible discharge later today pending blood pressure control. Discussed with Dr. Estrada provider information security specialist for today. (2) Pre-eclampsia:
[2023-12-11] MEDS: Propranolol 10 MG Tablet PO (08:42)
--- NOTE | 2023-12-11 15:06 | CASEMGMT ---
Labor and Delivery Mushroom Cutter Sw presented to bedside and reintroduced self to mother of baby (MOB- Dory) and father of baby (FOB- Ahsan) who was present today. Sw asked MOB how her night went and provided support. Sw validated that the first couple of nights to weeks or even months can be stressful and overwhelming due to lack of sleep and caring for a . Sw provided parents with handouts regarding: shaken baby prevention, ABC of safe sleep, mental health agencies, and [facility]. MOB states that she is receptive to getting connected to [facility]. FOB stated that because he can tell that MOB is anxious, he also believes that getting conneted to [facility] is a good idea. Sw discussed mental health and depression and anxiety. Sw asked MOB if she made an appointment with Juan krishnamurthy. MOB denied. Sw stated that sw will stay present with MOB while she makes the appointment. Sw stayed in room with MOB while she called Juan and get assessment/ intake scheduled for Thursday, 12/13 at 2:30. FOB stated that he is able to recognize that MOB is overwhelmed and struggling. FOB states that he tries to be supportive, but sometimes isn't sure what to do to help mom, and there are times when she does not open up and tell him how to help. Sw brainstormed this issue with parents and provided them with recommendations on how to bridge this communication barrier. Parents were open and communicative during conversation. FOB was observed holding baby in a loving and appropriate way. MOB was encouraged to also reach out to her OBGYN or Dr. Pate should she continue to notice an increase in her mental health symptoms to discuss getting back on medications. At this time MOB is denying thoughts of hurting herself or baby, but continues to indicate lots of anxiety and feeling overwhelmed. Ivette Hammond, MACHINE GREASER, AGENCY CASHIER
--- NOTE | 2023-12-11 15:19 | PCM.DC.SUM ---
Providers Date of Admission: 12/08/23 Date of Discharge: 12/11/23 Primary Care Physician: Dr. Wu Herrera MD Reason For Visit: VAGINAL DELIVERY Diagnosis Discharge Diagnosis (1) Vaginal delivery: Status: Acute Code(s): O80 - Encounter for full-term uncomplicated delivery (2) Pre-eclampsia: Status: Acute Code(s): O14.90 - Unspecified pre-eclampsia, unspecified trimester Medications at Discharge Home Medications vitamin#30 30 mg iron-10 mg iron-folic acid 1 mg-omg3 capsule 1 cap PO .every day 05/25/23 propranolol 10 mg tablet 10 mg PO BID PRN PVCs 05/25/23 acetaminophen 500 mg tablet 1,000 mg (2 x 500 mg) PO Q6H PRN PRN Pain 1-10 Or Fever #30 tabs 12/11/23 Hospital Course Operations None Procedures None Summary of Care Provided Minutes Spent on Discharge: 20 Hospital Course: IOL of labor for pre E. No magnesium needed. Take Propranolol at home for anxiety. Normal without complication. Weight / BMI Weight Weight: 82.554 kg Body Mass Index (BMI) 33.3 ABG / Lab / Microbiology Data 12/09/23 14:30 12/09/23 14:30 D/C Instructions Discharge Diet: No restrictions May resume sexual activity in: 6 weeks Call your doctor if your incision/area has: Continuous Slow Oozing, Sudden Increased Bleeding, Foul Smelling Discharge and Swelling at the incision site Call your doctor if you observe: Fever of 101 or Higher and Inability to urinate Please Follow Up With: Becca Castellon MD When: Follow up with our office in 1-2 and 6 weeks or as needed. [phone] Meaningful Use Info Meaningful Use Meaningful Use Diagnoses (Choose all that apply): None applicable Ischemic Stroke Statin Dosing Therapy Reference: STATIN DOSE THERAPY REFERENCE: * Patients > 75 years receive moderate or high dose statin therapy. * Patients 75 years or YOUNGER should receive HIGH intensity statin dose unless contraindicated. You will be required to document reason for non-treatment if statin daily dose does not meet guidelines. HIGH DOSE STATIN THERAPY DAILY Atorvastatin > than or = to 40 mg Rosuvastatin > than or = to 20 mg Amlodipine + Atorvastatin > than or = to 2.5/40 mg Ezetimibe + Simvastatin 10/80 mg Simvastatin 80mg Discharge Plan Admission Admit Date/Time: 12/08/23 19:19 Primary Reason for Your Visit: labor and delivery Attending Provider: Amairani Giang Primary Care Provider: Wu Herrera Instructions Patient Instructions: After a Vaginal Discharge Orders/Prescriptions Prescriptions: New acetaminophen 500 mg Tablet 1,000 mg PO Q6H PRN PRN (Reason: Pain 1-10 Or Fever) Qty: 30 0RF Continued propranolol 10 mg tablet 10 mg PO BID PRN (Reason: PVCs) Patient Comments: take 1 tablet by mouth twice a day PNV #[id number] acid-omega3 30 mg iron-10 mg iron-1 mg capsule 1 cap PO .every day Discontinued aspirin 81 mg tablet,delayed release (DR/EC) 81 mg PO .every day Patient Comments: take 1 tablet by mouth once daily *START AT 12 WEEKS* Referrals / Follow Up: Wu Herrera MD [Primary Care Provider] - Disposition Disposition (needs filled in before D/C Order can be placed): Home, Self Care
--- NOTE | 2023-12-12 15:10 | CASEMGMT ---
Social Work - Labor and Delivery 929?- Received call from Sandip Murrell RN, indicating patient called into the labor and delivery unit, asking to speak with manager social media Ivette Hammond, as patient was seen by Ivette during inpatient stay.? Patient seeking continued support in relation to coping.? ?Per RN, patient shared that has not slept well, estimating about 3 hours in the last 24 hours. Baby reportedly not sleeping unless being held by patient/mother of baby (MOB).? MOB reportedly worried about coping as did not know how to prepare for these dynamics.? ?RN reports MOB intending to take baby to status controller appointment at 1000 and was encouraged to have father of baby/MOB's partner take some time caring for the baby so MOB could sleep.? RN also reported MOB mentioned following up with Lauryn Gonzales after the weekend for counseling. RN reported MOB with significant mental health and substance use history, including history if suicidal ideation. This principal technical writer clarified with RN, and no current SI was voiced nor any thoughts of harm to others. MOB seeming to be interested in having support.? ? Chart reviewed and noted MOB with history of Bipolar Disorder, anxiety, depression, PTSD, and substance use history including alcohol and cocaine use. Noted that during delivery admission MOB with a score of 12 on PHQ9, falling into moderate range of depression.? 7921 - Called [phone] and left message for MOB to call this principal technical writer back.? ?? 7512 - No return call from MOB yet, though MOB could be sleeping.? Called Crisis Department at [facility] and spoke with Wade, the on-call crisis real estate administrative assistant.? Requested the Crisis team reach out to MOB by phone for a check-in later today and possibly tomorrow if needed.? ?For continuity fo care of MOB and baby, this principal technical writer provided referral information to support the well-check phone call.? ? Wade reported plan to have crisis therapist, Christine Miller, call this principal technical writer to further discuss.?? 2223 - Spoke with Ashley from Crisis, relayed concerns for support for MOB and , including risk based on mental health history.? Updated that MOB called in looking for support, so feel MOB could benefit from speaking with social work and/or crisis this weekend, as it sounds like MOB is having some anxiety and coping issues; no voiced SI that was relayed to the RN.? ?Ashley confirms crisis will place MOB on outreach schedule today and tomorrow.? Crisis to call this principal technical writer if unable to make contact with MOB.? ? Plan:? MOB and have discharged home as of 12.11.2023.? Crisis to make some outreach calls for support to MOB this weekend.?? -CARMELINA Cerda??
--- NOTE | 2023-12-14 13:37 | NURSING ---
After follow up phone call, this IBCLC RN reported the information to medical case manager Ivette Hammond. Pt. was very concerned about her weight today, telling this IBCLC that she has lost 14 lbs from OB admission to when she was seen in the ER, then lost 4 more lbs from the ER to when she saw her PCP today. Pt. then began to calculate total weight loss as well as total body weight and weight loss percentages. Pt. reports she has struggled to eat and drink since delivery, and IBCLC encouraged pt. to call her OBGYN. Pt. reports she saw her PCP today a couple hours ago for a blood pressure check. Pt. also reports she has an intake assessment with counseling today at 1430, as well as an OBGYN appt tomorrow. IBCLC encouraged pt. to call her OBGYN office after our phone call and before her intake assessment at 1430 to report difficulties eating and about pt's concern of anemia. Pt. reports she was seen in [facility] ER on 12/12 for spotty vision, chest pain, and symptoms they told me to be seen for in regards to having mild pre-eclampsia during . All of this information shared with Ivette. IBCLC offered to call OB's office for pt to see if a nurse could reach out to her, but pt. reports she has the phone number and also has an appt tomorrow. IBCLC informed pt. she can always reach out to [facility], ER, or OBGYN at any time if she has concerns.
--- NOTE | 2023-12-17 14:15 | CASEMGMT ---
Referral made to [facility] as previously discussed and agreed upon with patient. Ivette Hammond, CAST SHELL GRINDER, ACQUISITION MARKETING MANAGER
== END 2023-12-11 15:30 | disposition home or self-care (01) | DRG 560 ==
PROVIDERS: Obstetrics & Gynecology; Admitting Provider Obstetrics & Gynecology; PCP Family Medicine; Referring Provider Obstetrics & Gynecology; Visit Provider Obstetrics & Gynecology
DX: O99.824 Streptococcus B carrier state complicating childbirth (principal); Z37.0 Single live birth; O99.344 Other mental disorders complicating childbirth; F31.9 Bipolar disorder, unspecified; F41.1 Generalized anxiety disorder; O70.0 First degree perineal laceration during delivery; F43.10 Post-traumatic stress disorder, unspecified; Z3A.39 39 weeks gestation of pregnancy; Z79.82 Long term (current) use of aspirin; Z87.891 Personal history of nicotine dependence
CPT/HCPCS: 59025; 59050; 80307; 82565; 82570; 84156; 84450; 84460; 84550; 85025; 85027; 86780; 86850; 86900; 86901; 99221; J7120; G0378

== ENCOUNTER 2023-12-12 21:53 | Emergency (ER) | payer MEDICAID, SELFPAY ==
[2023-12-12 21:54] VITALS: BP 117/70; PULSE 81; RESP 16; TEMP 36.6; O2SAT 98
--- NOTE | 2023-12-12 22:08 | ED.RN ---
Called OB department and instructed to check pt in the ER d/t sym for now and call OB if pt needs to be seen down there.
--- NOTE | 2023-12-12 22:14 | EKG12_ITS ---
Test Reason : CHEST TIGHTNESS Blood Pressure : / mmHG Vent. Rate : 087 BPM Atrial Rate : 087 BPM P-R Int : 130 ms QRS Dur : 078 ms QT Int : 366 ms P-R-T Axes : 041 056 038 degrees QTc Int : 440 ms Normal sinus rhythm Normal ECG Confirmed by JEN JO, JAYASHREE ([id number]), greeting card editor YUDY ROSEN ([id number]) on 12/14/2023 6:55:03 AM Referred By: MEAGHAN Confirmed By:JAYASHREE LI MD
--- NOTE | 2023-12-12 22:14 | CT_ITS ---
STUDY: CTA CHEST REASON FOR EXAM: Female, 22 years old. chest pain RADIATION DOSAGE (If Supplied By Facility): CTDIvol = ( 12.90 ) mGy, DLP = ( 439.47 ) mGycm TECHNIQUE: The examination was performed with the intravenous administration of IV 100mL Isovue-370. Post-processing of the angiographic images was performed, with multiplanar reformation and 3D reconstruction. Individualized dose optimization techniques were used for this CT. COMPARISON: July 22, 2023. FINDINGS: Imaged portion of the thyroid is unremarkable. Normal enhancement of the bilateral pulmonary arteries. There is no demonstrated pulmonary embolism. No main pulmonary arterial enlargement. No aortic dissection or aneurysmal dilatation. Normal heart and pericardium. No densely calcified coronary atherosclerosis. No mediastinal or hilar adenopathy. Unremarkable esophagus. No endobronchial lesion. No airspace consolidation, effusion, or pneumothorax. Normal osseous structures. Normal visualized upper abdomen. CT/CTA Chest W/WO Contrast IMPRESSION: No pulmonary embolism or evidence of acute airspace disease. Electronically Signed: Juliocesar Swan MD at 23:39 EDT ,
--- NOTE | 2023-12-12 22:16 | EDS_ITS ---
HPI History of Present Illness Chief Complaint: Chest Pain Informant: patient Onset/Context/Timing Onset: Today Narrative Narrative: Patient presents secondary to chest pain, shortness of breath, seeing black dots. She is 2 days . She states that she has not been getting much sleep since getting home from the hospital. This morning she noticed some intermittent black dots in her vision. About an hour prior to arrival she got some chest heaviness in the left upper chest. She states it is sharp when she takes a deep breath. She had mild preeclampsia with her and was told if she had any symptoms she should return. I was notified by nursing staff that social work had been notified earlier today the patient had called in with concerns about coping at home with the baby. Phone calls from social work were unanswered, but they did ask counseling center to follow-up. I did ask the patient about this and she states that she did speak with the counseling center this evening. She denies suicidal homicidal ideation to nursing staff. [facility] Medical History History of anorexia nervosa Vitamin B12 deficiency Abdominal bloating Constipation History of marijuana use Generalized anxiety disorder Bipolar 1 disorder, depressed, moderate PTSD (post-traumatic stress disorder) Tobacco abuse Osteopenia GERD (gastroesophageal reflux disease) Asthma Migraines (~12/08/23) Alcohol withdrawal Desire for detoxification History of cocaine use Alcohol use disorder Home Medications ?Medication ?Instructions ?Recorded ?Last Taken ?Type vitamin#30 30 mg iron-10 1 cap PO .every day 05/25/23 11/27/23 06:00 History mg iron-folic acid 1 mg-omg3 capsule propranolol 10 mg tablet 10 mg PO BID PRN PVCs 05/25/23 11/27/23 06:00 History acetaminophen 500 mg tablet 1,000 mg (2 x 500 mg) PO Q6H PRN 12/11/23 Unknown Rx PRN Pain 1-10 Or Fever #30 tabs Allergy/AdvReac Type Severity Reaction Status Date / Time No Known Allergies Allergy Verified 12/12/23 21:54 Family History Other Alcoholism Anxiety Arthritis Asthma COPD (chronic obstructive pulmonary disease) Depression High cholesterol Surgical History History of surgery Social History Smoking Status: Former smoker alcohol intake: former details: 5 months sober substance use type: does not use ROS ROS ED Constitutional Constitutional ED: Denies chills or fever(s) Eyes Eyes: Denies discharge from eye(s) ENT ENT ED: Denies discharge from eye(s), rhinorrhea or sore throat Cardiovascular Cardiovascular: Reports chest pain; Denies palpitations Respiratory/Chest Respiratory/Chest: Reports dyspnea; Denies cough Gastrointestinal Gastrointestinal: Denies abdominal pain, diarrhea, nausea or vomiting Musculoskeletal Musculoskeletal: Denies back pain or extremity pain Integumentary Denies Abrasions or rash Neurologic Neurologic: Reports headache(s); Denies weakness Psychiatric Psychiatric: Denies anxiety or depression Allergic/Immunologic Allergic/Immunologic ED: Denies lip swelling or urticaria EXAM Physical Exam Const Vital Signs: 12/12/23 21:54 12/12/23 23:43 12/13/23 01:00 Temperature 97.8 F Temperature Source Temporal Pulse Rate 81 75 72 Respiratory Rate 16 16 16 Blood Pressure 117/70 128/84 H 122/77 H Blood Pressure Mean 85 98 92 Pulse Ox 98 99 98 Oxygen Delivery Method Room Air Room Air Room Air Positive well nourished and well developed General Appearance ED: well developed HEENT Reports moist mucous membranes Eyes EOMs intact bilaterally Chest Wall inspection of chest normal and palpation of chest normal Resp normal respiratory effort and clear to auscultation bilaterally Cardio regular rate and regular rhythm GI soft to palpation and non-tender Extremity normal to inspection Neuro oriented x3 and no sensory deficits noted Motor Exam: strength 5/5 throughout Psych mental status grossly normal Skin no rashes or lesions noted MDM MDM MDM Narrative Medical decision making narrative: 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 EKG obtained to evaluate for cardiac arrhythmia/ischemia. IV line established. Labwork obtained to evaluate for leukocytosis, anemia, and electrolyte derangement. Given the patient's symptoms I will obtain a CTA of her chest to evaluate for embolism. History & Record Review Discussion w/independent historian: Patient Additional record(s) reviewed:: Prior labs Lab Data Attestation: I reviewed the patient's lab results. Labs: Laboratory Results - last 24 hr 12/12/23 12/13/23 22:30 00:50 WBC 8.8 RBC 3.48 L Hgb 11.2 L Hct 34.5 L MCV 99.1 H MCH 32.2 H MCHC 32.5 RDW Std Deviation 50.9 H RDW Coeff of Reggie 13.9 Plt Count 197 MPV 11.2 Immature Gran % (Auto) 0.200 Neut % (Auto) 66.3 Lymph % (Auto) 23.0 [place] % (Auto) 7.1 Eos % (Auto) 3.1 Baso % (Auto) 0.3 Absolute Neuts (auto) 5.9 Absolute Lymphs (auto) 2.03 Nucleated RBC % 0 Sodium 140 Potassium 3.7 Chloride 109 H Carbon Dioxide 23.0 Anion Gap 8 BUN 9 Creatinine 0.75 Estim Creat Clear Calc 122.99 Est GFR (MDRD) Af Amer 124 Est GFR (MDRD) Non-Af 102 BUN/Creatinine Ratio 11.9 Glucose 102 Calcium 8.6 Total Bilirubin 0.20 Direct Bilirubin 0.08 AST 32 ALT 31 Alkaline Phosphatase 189 H Troponin I High Sens < 3 L < 3 L Total Protein 5.9 L Albumin 2.6 L Globulin 3.3 Radiography Diagnostic Testing: Clinical Impression(s) from Imaging Studies Chest CTA 12/12/23 22:14 IMPRESSION: No pulmonary embolism or evidence of acute airspace disease. Electronically Signed: Juliocesar Swan MD at 23:39 EDT , EKG Initial EKG: Attestation: I personally reviewed and interpreted this EKG as follows: Interpretation: Sinus Rhythm (Sinus 87 with no acute ischemia.) Treatment and Re-Evaluation :: CBC reveals normal white count 8.8 with a hemoglobin 11.2. Differential unremarkable. Chemistry studies are normal. Initial troponin is less than 3. EKG is sinus rhythm with no evidence of ischemia. CTA of the chest reveals no evidence of embolus. On repeat evaluation patient resting comfortably. While here in the ER she has developed some pain in the right upper quadrant. When the 2-hour repeat troponin is drawn we also checked her LFTs. LFTs are unremarkable and repeat troponin is also negative at less than 3. Patient's blood pressure has been in the 1 teens and 120s systolic. I again discussed with her whether she would like to talk with counseling center. She declines at this time. She states she does have services set up and knows that she can call them at any time. Return instructions were also provided. Discharge Plan Triage Chief Complaint: Chest Pain ED Provider: Shruthi Andrews Dx/Rx/DC Orders Clinical Impression: Atypical chest pain, Abdominal pain Instructions: ED Abdominal Pain Unkn Cause Fem, ED Chest Pain, Noncardiac Prescriptions: No Action propranolol 10 mg tablet 10 mg PO BID PRN (Reason: PVCs) Patient Comments: take 1 tablet by mouth twice a day PNV #[id number] 30 mg iron-10 mg iron-1 mg capsule 1 cap PO .every day acetaminophen 500 mg Tablet 1,000 mg PO Q6H PRN PRN (Reason: Pain 1-10 Or Fever) Qty: 30 0RF Primary Care Provider: Wu Herrera Referrals: Wu Herrera MD [Primary Care Provider] - 5-7 Days Print Language: [place] Disposition Disposition: Home, Self Care
[2023-12-12 22:27] VITALS: BMI 35.9
[2023-12-12] MEDS: 0.9% Normal Saline (1000mL) 1,000 ML 150 ML IV (22:27)
[2023-12-12 22:51] LABS: Absolute Lymphocyte Count 2.03 X10^3/uL (0.83-4.51); Absolute Neutrophil Count 5.9 X10^3/uL (2.0-7.7); Basophil# 0.03 X10^3/uL; Basophil% 0.3 % (0-1); Eosinophil# 0.27 X10^3/uL; Eosinophils% 3.1 % (0-5); Hematocrit 34.5 % (37-47); Hemoglobin 11.2 g/dL (12.0-15.0); Lymphocyte # 2.03 X10^3/ul (0.83-4.51); Mean Corp Hgb Conc 32.5 g/dL (32-36); Mean Corpuscular Hgb 32.2 pg (27.0-32.0); Mean Corpuscular Volume 99.1 fL (81-99); Mean Platelet Vol. 11.2 fl (6.2-12.0); Monocyte# 0.63 X10^3/uL; Monocyte% 7.1 % (0-10); NRBC Flagged by Analyzer 0 % (0-5); Neutrophil # 5.86 X10^3/uL (2.7-7.7); Neutrophil % 66.3 % (47-70); Platelet Count 197 K/mm3 (150-450); RBC Distribution Width CV 13.9 % (11.6-14.6); RBC Distribution Width SD 50.9 fl (35.1-43.9); Red Blood Count 3.48 M/mm3 (4.2-5.4); White Blood Count 8.8 K/mm3 (4.4-11.0)
[2023-12-12 23:05] LABS: Anion Gap 8 (5-15); BUN 9 mg/dL (7-18); BUN/Creat Ratio 11.9 RATIO (10-20); Calcium,Total 8.6 mg/dL (8.5-10.1); Chloride 109 mmol/L (98-107); Creatinine, Serum 0.75 mg/dL (0.55-1.02); EST Glomerular Filtration Rate 102 mL/min (>60); Est Glom Filt Rate - Afr Amer 124 mL/min (>60); Estimated Creatinine Clearance 122.99 ml/min; Glucose 102 mg/dL (74-106); Potassium 3.7 mmol/L (3.5-5.1); Sodium Level 140 mmol/L (136-145); Troponin-I HS (w/2H Reflex) < 3 pg/mL (3.0-54.0)
[2023-12-12 23:43] VITALS: BP 128/84; PULSE 75; RESP 16; O2SAT 99
[2023-12-13 00:36] LABS: Reflex Troponin-HS? (from REC) Y
[2023-12-13 01:00] VITALS: BP 122/77; PULSE 72; RESP 16; O2SAT 98
[2023-12-13 01:29] LABS: AST(SGOT) 32 U/L (15-37); Alanine Aminotransfer ALT/SGPT 31 U/L (13-56); Albumin, Serum 2.6 g/dL (3.2-5.0); Alkaline Phosphatase 189 U/L (45-117); Bilirubin, Direct 0.08 mg/dL (0.00-0.30); Globulin 3.3 g/dL (2.2-4.2); Protein, Total 5.9 g/dL (6.4-8.2); Troponin-I HS < 3 pg/mL (3.0-54.0)
[2023-12-13 01:42] VITALS: BP 118/89; PULSE 67; RESP 18; TEMP 36.1; O2SAT 96
--- NOTE | 2023-12-15 10:36 | CASEMGMT ---
Labor and Delivery Air Chipper Sw informed that patient called into Labor and Delivery expressing concern that baby. Patient informed staff that while on a walk with baby and father of baby, baby appeared to be blue around mouth, eyes and bridge of nose. Patient was instructed to bring baby in to the Emergency Dept to be seen. Patient brought baby to [place] ED and was instructed to take baby to [facility]. Patient and maternal grandmother did this, at which time baby was admitted for BRUE. Due to mental health concerns of patient, krish contacted pediatric social worker Macario Gee pediatric social worker for 7th floor at [facility] for continuity of care. Sw expressed concern for patient and her mental health and asked that Ms. Gee follow up to provide support and discuss importance of getting connected to mental health services. Ms. Gee stated that patient (Dory) was admitted at another local hospital due to hemorrhaging. Ms. Gee offered to keep this sw'er informed regarding baby's progress and any involvement she may have with Dory going forward. This sw'er contacted [facility] and spoke to hotline screener, Yuliet. Sw completed referral, expressing concern that Dory is struggling to care for baby and has herself expressed that she is overwhelmed and struggling to cope with her own mental health since delivery of . . Krish provided medical update on baby, as well as MOB. Krish informed Yuliet of MOB's mental health and substance use history. Sw stated that QUANG has been obsessing about her weight loss- even in percentage- since delivery of . QUANG has not been sleeping, eating or drinking and was admitted to ED for shortness of breath and seeing black dots. Krish stated that QUANG is not connected to any mental health services at this time but would greatly benefit from intensive therapy to help prevent psychosis. Yuliet reported that she will provide information to specialty department supervisor who will either screen in referral or screen out. Krish provided Yuliet with Ms. Gee contact information if she had more questions on how baby is doing and discharge readiness. Krish will continue to be available should any needs or additional issues arise. Ivette Hammond, MIG WELDER, CLERK TO JUSTICE
== END 2023-12-13 01:43 | disposition home or self-care (01) ==
PROVIDERS: Emergency Provider Emergency Medicine; PCP Family Medicine; Visit Provider Emergency Medicine
DX: O99.893 Other specified diseases and conditions complicating puerperium (principal); R10.9 Unspecified abdominal pain; R07.89 Other chest pain; Z87.891 Personal history of nicotine dependence
CPT/HCPCS: 71275; 80048; 80076; 84484; 85025; 93005; 99284; Q9967; A4216

== ENCOUNTER 2023-12-21 23:07 | Emergency (ER) | payer MEDICAID, SELFPAY ==
[2023-12-21 23:08] VITALS: BP 137/82; PULSE 74; RESP 15; TEMP 36.1; O2SAT 98; BMI 27.6
--- NOTE | 2023-12-21 23:26 | US_ITS ---
EXAM: US PELVIS TRANSABDOMINAL, COMPLETE CLINICAL INDICATION: ?? retained products post vag delivery TECHNIQUE: Transabdominal pelvic ultrasound was performed with grayscale and color Doppler imaging. COMPARISON: No relevant prior studies available. FINDINGS: UTERUS/CERVIX: Uterus is anteverted measuring 9.0 x 8.8 x 6.0 cm with endometrial complex thickness of 1.7 cm. There is hypoechoic fluid in endometrial complex with no internal blood flow. Cervix is normal. No fibroids. No IUD. RIGHT OVARY: Right ovary is not visualized; potentially due to overlying bowel gas or position of the ovary. LEFT OVARY: Left ovary measures 3.0 x 2.1 x 2 x 1.9 cm with normal blood flow to it. No adnexal masses. FREE FLUID: No free pelvic fluid. BLADDER: Bladder is unremarkable. US/Pelvic (Non ) IMPRESSION: 1. Fluid in endometrial complex. 2. No definite retained products of conception. Electronically Signed: Gustavo Love MD at 1:19 EDT ,
--- NOTE | 2023-12-21 23:30 | EX.ED.DYSGE1 ---
HPI History of Present Illness Chief Complaint: General Illness Informant: patient Onset/Context/Timing Onset: Days Context: Gradual Onset Timing: Intermittent Current Severity: Mild Maximum Severity: Mild Narrative Narrative: 22-year-old female past medical history of bipolar, anxiety and depression. Status post vaginal delivery about 12 days ago on 12/09/23. She had a healthy little boy who is doing well. Patient states that she has had cold sweats last 2 to 3 days. Decreased p.o. intake. Mild lightheadedness with standing. Body aches. She has had mild vaginal bleeding and discomfort. Denies any discharge. Patient is Ab0. She denies any rash. She denies any chest pain or shortness of breath. She denies any dysuria. Prior similar symptoms: No Recent Illness/Hospitalization: Yes [facility] Medical History Former smoker depression History of anorexia nervosa Vitamin B12 deficiency Abdominal bloating Constipation History of marijuana use Generalized anxiety disorder Bipolar 1 disorder, depressed, moderate PTSD (post-traumatic stress disorder) Tobacco abuse Osteopenia GERD (gastroesophageal reflux disease) Asthma Migraines (~12/08/23) Alcohol withdrawal Desire for detoxification History of cocaine use Alcohol use disorder Home Medications ?Medication ?Instructions ?Recorded ?Last Taken ?Type vitamin#30 30 mg iron-10 1 cap PO .every day 05/25/23 11/27/23 06:00 History mg iron-folic acid 1 mg-omg3 capsule propranolol 10 mg tablet 10 mg PO BID PRN PVCs 05/25/23 11/27/23 06:00 History acetaminophen 500 mg tablet 1,000 mg (2 x 500 mg) PO Q6H PRN 12/11/23 Unknown Rx PRN Pain 1-10 Or Fever #30 tabs zuranolone 25 mg capsule 50 mg (2 x 25 mg) PO DAILY 14 days 12/16/23 Unknown Rx #28 caps aspirin 81 mg tablet,delayed 81 mg PO DAILY 12/21/23 Unknown History release sulfamethoxazole 800 1 tab PO BID 5 days #10 tabs 12/22/23 Unknown Rx mg-trimethoprim 160 mg tablet (Bactrim DS) Allergy/AdvReac Type Severity Reaction Status Date / Time No Known Allergies Allergy Verified 12/21/23 23:11 Family History Other Alcoholism Anxiety Arthritis Asthma COPD (chronic obstructive pulmonary disease) Depression High cholesterol Surgical History History of surgery Social History Smoking Status: Former smoker alcohol intake: former details: 5 months sober substance use type: does not use ROS ROS ED ROS Narrative Subjective cold sweats. Denies any fever. Denies any dysuria. Denies any diarrhea. No chest pain or shortness of breath. Review of Systems ROS Unobtainable: Denies due to encephalopathy Constitutional Constitutional ED: Reports subjective and sweats; Denies chills or fever(s) Eyes Eyes: Denies blurry vision ENT ENT ED: Denies ear pain Cardiovascular Cardiovascular: Denies chest pain Respiratory/Chest Respiratory/Chest: Denies dyspnea Gastrointestinal Gastrointestinal: Reports nausea; Denies abdominal pain, diarrhea or vomiting Genitourinary Genitourinary ED: Denies dysuria or hematuria Musculoskeletal Musculoskeletal: Denies arthralgias Integumentary Denies abscess Neurologic Neurologic: Denies headache(s) Psychiatric Psychiatric: Reports anxiety Endocrine Endocrinology: Denies cold intolerance Hematologic/Lymphatic Hematologic/Lymphatic: Reports none Allergic/Immunologic Allergic/Immunologic ED: Denies mouth swelling, tongue swelling or urticaria EXAM Physical Exam Narrative Exam Narrative: Well-appearing 22-year-old female. Vital signs are stable afebrile. H EENT exam unremarkable. Mytrex membranes. Posterior pharynx unremarkable no erythema. No trouble swallowing or breathing. Neck nontender. No lymphadenopathy. Lungs clear to auscultation bilaterally. Heart regular rhythm rate about 75 no murmur. Chest wall and ribs nontender. Abdomen soft nondistended normal bowel sounds no peritoneal signs. Very minimal suprapubic tenderness. Consistent with normal . Moving all 4 extremities. Nontender no edema. No cords. 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 Normal dorsi plantarflexion. Limited effort. Back nontender. No CVA tenderness. Neurologically she is awake and alert. Answering questions following commands. She has a flat affect. Const Vital Signs: 12/21/23 23:08 12/21/23 23:19 Temperature 96.9 F L Temperature Source Temporal Pulse Rate 74 Respiratory Rate 15 Respiratory Effort Normal Respiratory Pattern Normal Blood Pressure 137/82 H Blood Pressure Mean 100 Pulse Ox 98 Oxygen Delivery Method Room Air Positive well nourished and well developed; Negative for obese, cachectic, contractures or unkempt General Appearance ED: well developed and NAD; Negative for unkempt, cachectic, contractures, cyanotic, diaphoretic or pallor Nutritional Appearance: Negative for cachectic or obese HEENT Reports moist mucous membranes; Denies dry mucous membranes Negative for trauma or tenderness Mouth ED: No dry mucous membranes Mouth: No dry mucous membranes Eyes EOMs intact bilaterally General Eye ED: Negative for pale conjunctiva or scleral icterus Neck no lymphadenopathy, supple and no JVD General: Negative for tenderness Lymph Lymphatic: Negative for other Chest Wall inspection of chest normal and palpation of chest normal Chest: Negative for other Resp normal respiratory effort and clear to auscultation bilaterally Effort and Inspection: Negative for retractions Auscultation: Negative for rales, rhonchi, wheezes or diminished lung sounds Cardio regular rate, regular rhythm, S1 normal heart sound, S2 normal heart sound and no murmurs Palpation: Negative for palpable S3 or palpable S4 Rate: Negative for bradycardia or tachycardic Rhythm: Negative for abnormal rhythm GI normal to inspection, nondistended, normoactive bowel sounds, non-tender, non-distended and no masses GI Narrative: Minimal suprapubic tenderness. Consistent recent . Clinically not consistent with endometritis. Inspection: Negative for abdominal distention Auscultation: normoactive bowel sounds Palpation: soft; Negative for tender, guarding, splenomegaly, mass or rebound tenderness present Back/Spine no CVA tenderness General Back: Negative for CVA tenderness Cervical Spine: Negative for cervical spine tenderness Thoracic Spine / Upper Back: Negative for thoracic spinal tenderness or paraspinal muscle tenderness Lumbar Spine / Lower Back: Negative for lumbar spinal tenderness Extremity normal to inspection General Extremety ED: Negative for edema, tenderness or other findings General Extremity: Negative for edema or other findings Neuro oriented x3 and CN's II-XII intact bilaterally Sensorium / Orientation: alert; Negative for orientation impaired, lethargic or stuporous Motor Exam: strength 5/5 throughout; Negative for general weakness or strength abnormal Psych Negative for mental status grossly normal Psych Narrative: Flat affect. Normal eye contact. Answering questions. Following commands. Appearance: Negative for unkempt Attitude: No agitated Mood & Affect: Negative for depressed, anxious or tearful Skin no rashes or lesions noted, no wounds and skin turgor normal General Skin Exam: elasticity normal; Negative for jaundice or pallor Lesions: No lesion noted Rashes: No rashes noted Trauma: Negative for abrasion Wounds: Negative for wounds noted MDM MDM MDM Narrative Medical decision making narrative: 22-year-old female states she is not feeling well 12 days after a vaginal delivery on 12/09/2023. Exam benign. Pelvic exam pending. Screening labs. IV fluids because she says she has had decreased oral intake. She does not need any pain meds and states her nausea is resolved currently. Ultrasound to rule out retained products of conception or endometritis which clinically I have a low suspicion for. Repeat exam at 12:05 AM patient doing well. Pelvic exam done female nurse present in the room. Speculum exam showed no significant discharge. No bladder or clots. On bimanual exam there is no uterine or adnexal tenderness. There is a very benign pelvic exam. No signs of endometritis. Patient doing well at 1:25 AM. We went over her test results. She will be treated for possible UTI. Started on Bactrim p.o. 1 twice daily for 5 days. First dose given in the ER. Prescription sent to her pharmacy. Urine culture sent. She has a follow-up [facility] appointment later today. History & Record Review Discussion w/independent historian: Patient Additional record(s) reviewed:: Prior inpatient record, Prior outpatient record and Prior ED visit Lab Data Attestation: I reviewed the patient's lab results. Lab results narrative: CBC normal. White count of 7.5. H&H 13.8 and 43. Platelets 308. Electrolytes show a gap of 6. Normal BUN 14 creatinine 0.7. Glucose 88. Urinalysis shows no nitrates. 10-25 white cells. No red cells. 1+ bacteria. Will be treated as a possible UTI. Labs: Laboratory Results - last 24 hr 12/21/23 23:30 WBC 7.5 RBC 4.36 Hgb 13.8 Hct 43.1 MCV 98.9 MCH 31.7 MCHC 32.0 RDW Std Deviation 50.1 H RDW Coeff of Reggie 13.7 Plt Count 308 MPV 9.8 Immature Gran % (Auto) 0.300 Neut % (Auto) 51.3 Lymph % (Auto) 36.8 George % (Auto) 8.7 Eos % (Auto) 2.1 Baso % (Auto) 0.8 Absolute Neuts (auto) 3.8 Absolute Lymphs (auto) 2.74 Nucleated RBC % 0 Sodium 139 Potassium 4.1 Chloride 109 H Carbon Dioxide 24.0 Anion Gap 6 BUN 14 Creatinine 0.74 Estim Creat Clear Calc 109.08 Est GFR (MDRD) Af Amer 127 Est GFR (MDRD) Non-Af 105 BUN/Creatinine Ratio 19.0 Glucose 88 Calcium 9.3 Urine Color Yellow Urine Clarity Clear Urine pH 6.0 Ur Specific [place] 1.030 Urine Protein Negative Urine Glucose (UA) Normal Urine Ketones Negative Urine Occult Blood 150 H Urine Nitrite Negative Urine Bilirubin Negative Urine Urobilinogen Normal Ur Leukocyte Esterase 500 H Urine RBC 0-5 SEEN Urine WBC 10-25 SEEN Ur Squamous Epith Cells 0 SEEN Urine Bacteria 1+ Urine Mucus RARE Radiography Diagnostic Testing: Clinical Impression(s) from Imaging Studies Pelvis Ultrasound 12/21/23 23:26 IMPRESSION: 1. Fluid in endometrial complex. 2. No definite retained products of conception. Electronically Signed: Gustavo Love MD at 1:19 EDT , Discharge Plan Triage Chief Complaint: General Illness ED Provider: Charly Victor Dx/Rx/DC Orders Clinical Impression: anxiety, Status post vaginal delivery, History of bipolar disorder, Cystitis Instructions: ED Cystitis Female Adult Prescriptions: New sulfamethoxazole-trimethoprim [Bactrim DS] 800-160 mg tablet 1 tab PO BID 5 Days Qty: 10 0RF No Action propranolol 10 mg tablet 10 mg PO BID PRN (Reason: PVCs) Patient Comments: take 1 tablet by mouth twice a day PNV #[id number] 30 mg iron-10 mg iron-1 mg capsule 1 cap PO .every day zuranolone 25 mg capsule 50 mg PO DAILY 14 Days Qty: 28 0RF Rx Instructions: administer with a high fat meal aspirin 81 mg tablet,delayed release (DR/EC) 81 mg PO DAILY acetaminophen 500 mg Tablet 1,000 mg PO Q6H PRN PRN (Reason: Pain 1-10 Or Fever) Qty: 30 0RF Primary Care Provider: Wu Herrera Referrals: Wu Herrera MD [Primary Care Provider] - Christine Bocanegra DO [Med Staff - Active Staff] - As soon as possible Activity Restrictions/Additional Instructions: Your labs, ultrasound and exam the night are unremarkable. Except he may have a urinary tract infection. Urine culture was sent. You will be started on the antibiotic Bactrim DS 1 pill twice a day. The prescription was sent to your pharmacy. Call and follow-up with your [facility]. When you see them on your appointment in the next 1 to 2 days let them know you were seen in the emergency department. They can see any tests that we did here tonight from their office. Motrin and Tylenol for any pain. Print Language: Swedish Disposition Disposition: Home, Self Care
[2023-12-21] MEDS: 0.9% Normal Saline (1000mL) 1,000 ML 999 ML IV (23:39)
[2023-12-21 23:45] LABS: Squamous Epithelial Cells - UA 0 SEEN /hpf (5-10)
[2023-12-21 23:55] LABS: Absolute Lymphocyte Count 2.74 X10^3/uL (0.83-4.51); Absolute Neutrophil Count 3.8 X10^3/uL (2.0-7.7); Basophil# 0.06 X10^3/uL; Basophil% 0.8 % (0-1); Eosinophil# 0.16 X10^3/uL; Eosinophils% 2.1 % (0-5); Hematocrit 43.1 % (37-47); Hemoglobin 13.8 g/dL (12.0-15.0); Lymphocyte # 2.74 X10^3/ul (0.83-4.51); Lymphocyte % 36.8 % (19-41); Mean Corpuscular Hgb 31.7 pg (27.0-32.0); Mean Corpuscular Volume 98.9 fL (81-99); Mean Platelet Vol. 9.8 fl (6.2-12.0); Monocyte# 0.65 X10^3/uL; Monocyte% 8.7 % (0-10); NRBC Flagged by Analyzer 0 % (0-5); Neutrophil # 3.82 X10^3/uL (2.7-7.7); Neutrophil % 51.3 % (47-70); Platelet Count 308 K/mm3 (150-450); RBC Distribution Width CV 13.7 % (11.6-14.6); RBC Distribution Width SD 50.1 fl (35.1-43.9); Red Blood Count 4.36 M/mm3 (4.2-5.4); White Blood Count 7.5 K/mm3 (4.4-11.0)
[2023-12-22 00:09] LABS: Anion Gap 6 (5-15); BUN 14 mg/dL (7-18); Calcium,Total 9.3 mg/dL (8.5-10.1); Chloride 109 mmol/L (98-107); Creatinine, Serum 0.74 mg/dL (0.55-1.02); EST Glomerular Filtration Rate 105 mL/min (>60); Est Glom Filt Rate - Afr Amer 127 mL/min (>60); Estimated Creatinine Clearance 109.08 ml/min; Glucose 88 mg/dL (74-106); Potassium 4.1 mmol/L (3.5-5.1); Sodium Level 139 mmol/L (136-145)
[2023-12-22 00:22] LABS: Color, Urine Yellow (Yellow); Glucose, Dipstick Normal (Normal); Ketone-Dipstick Negative (Negative); Leukocyte Esterase-Dipstick 500 /ul (Negative); Nitrite-Dipstick Negative (Negative); Occult Blood-Urine 150 /ul (Negative); Protein-Dipstick Negative (Negative); Urine Bilirubin Dipstick Negative (Negative); Urine Clarity Clear (Clear); Urine Urobilinogen Normal (Normal)
[2023-12-22 00:23] LABS: Bacteria 1+ /hpf (None Seen); Mucous, Urine RARE /hpf (<or=2+); Red Blood Cells-Urine 0-5 SEEN /hpf (0-5); White Blood Cells 10-25 SEEN /hpf (0-5)
[2023-12-22] MEDS: Smz/Tmp Ds Tablet 1 TABLET PO (01:47)
[2023-12-22 01:48] VITALS: BP 107/67; PULSE 67; RESP 14; TEMP 36.5; O2SAT 99
== END 2023-12-22 01:52 | disposition home or self-care (01) ==
PROVIDERS: Emergency Provider Emergency Medicine; PCP Family Medicine; Visit Provider Emergency Medicine
DX: O99.345 Other mental disorders complicating the puerperium (principal); F31.9 Bipolar disorder, unspecified; O86.22 Infection of bladder following delivery; F41.9 Anxiety disorder, unspecified; Z87.891 Personal history of nicotine dependence; Z79.82 Long term (current) use of aspirin; Z79.899 Other long term (current) drug therapy
CPT/HCPCS: 76856; 80048; 81001; 85025; 87086; 99282

== ENCOUNTER 2024-01-10 00:30 | Emergency (ER) | payer MEDICAID, SELFPAY ==
[2024-01-10 00:32] VITALS: BP 128/91; PULSE 98; RESP 16; TEMP 36.2; O2SAT 97; BMI 27.2
--- NOTE | 2024-01-10 01:11 | CT_ITS ---
INDICATION: AMS EXAMINATION: CT BRAIN - CT Head or Brain W/O Contrast Injection TECHNIQUE: Serial CT axial images were obtained of the head without intravenous contrast. A radiation dose optimization technique was used for this scan. COMPARISON: 07/25/[address] Findings: Serial CT axial images of the head without contrast. BRAIN PARENCHYMA: Normal sadler-white matter differentiation. No evidence of intraparenchymal hemorrhage or hyperattenuating extra-axial fluid collection. BONES: Paranasal sinuses are clear. SCALP/REMAINING SOFT TISSUES: Unremarkable. ASPECTS Score for Acute Strokes, if applicable: 10 CT/Brain/Head without Contrast IMPRESSION: No acute intracranial hemorrhage in this noncontrast head CT. Electronically Signed: Tank Philip MD at 1:56 EDT ,
--- NOTE | 2024-01-10 01:12 | EDS_ITS ---
HPI HPI - Psych History of Present Illness Chief Complaint: Mental Health Informant: patient Narrative Narrative: Patient states for the past week she has been having visual hallucinations that have been getting worse. She delivered a baby about a month ago. She has been having feelings of depression without suicidal thoughts and recently diagnosed with depression and started on new medication but she used to be on medications for bipolar that she stopped in July while she was because she felt like she was doing pretty well after she ran out of her medications. She did this under the guidance of her psychiatrist Dr. Pate. In the past week she has been calling his office, nurses have been telling her that if she gets worse she needs to go to the hospital to be evaluated because she may need to be hospitalized for psychiatric reasons. She feels that is the case now. She has been having hallucinations of shadows coming through her windows and maravilla and coming out her. Initially she is very frightened and took her baby into the bathroom and locked herself in there and was screaming. Eventually she became insightful that these were hallucinations and not real. She is very concerned because she is having difficulty discerning now. [facility] Medical History Former smoker depression History of anorexia nervosa Vitamin B12 deficiency Abdominal bloating Constipation History of marijuana use Generalized anxiety disorder Bipolar 1 disorder, depressed, moderate PTSD (post-traumatic stress disorder) Tobacco abuse Osteopenia GERD (gastroesophageal reflux disease) Asthma Migraines (~12/08/23) Alcohol withdrawal Desire for detoxification History of cocaine use Alcohol use disorder Home Medications ?Medication ?Instructions ?Recorded ?Last Taken ?Type vitamin#30 30 mg iron-10 1 cap PO .every day 05/25/23 11/27/23 06:00 History mg iron-folic acid 1 mg-omg3 capsule propranolol 10 mg tablet 10 mg PO BID PRN PVCs 05/25/23 11/27/23 06:00 History acetaminophen 500 mg tablet 1,000 mg (2 x 500 mg) PO Q6H PRN 12/11/23 Unknown Rx PRN Pain 1-10 Or Fever #30 tabs aspirin 81 mg tablet,delayed 81 mg PO DAILY 12/21/23 Unknown History release sulfamethoxazole 800 1 tab PO BID 5 days #10 tabs 12/22/23 Unknown Rx mg-trimethoprim 160 mg tablet (Bactrim DS) Allergy/AdvReac Type Severity Reaction Status Date / Time No Known Allergies Allergy Verified 12/21/23 23:11 Family History Other Alcoholism Anxiety Arthritis Asthma COPD (chronic obstructive pulmonary disease) Depression High cholesterol Schizophrenia other (Father with schizophrenia) Surgical History History of surgery Social History Smoking Status: Current every day smoker tobacco type: cigarettes and e- cigarettes alcohol intake: former details: 5 months sober substance use type: does not use ROS ROS ED Constitutional Constitutional ED: Denies chills or fever(s) Eyes Eyes: Denies change in vision or diplopia ENT ENT ED: Denies rhinorrhea or sore throat Cardiovascular Cardiovascular: Denies chest pain or palpitations Respiratory/Chest Respiratory/Chest: Denies cough or dyspnea Gastrointestinal Gastrointestinal: Denies abdominal pain, diarrhea, nausea or vomiting Genitourinary Genitourinary ED: Denies dysuria or hematuria Musculoskeletal Musculoskeletal: Denies back pain or neck pain Integumentary Denies abscess or rash Neurologic Neurologic: Denies headache(s), paresthesias or weakness Psychiatric Psychiatric: Reports as per HPI, anxiety, depression and hallucinations; Denies suicidal ideation or suicidal thoughts EXAM Physical Exam Const Vital Signs: 01/10/24 00:32 01/10/24 02:00 Temperature 97.2 F L Temperature Source Temporal Pulse Rate 98 71 Respiratory Rate 16 18 Blood Pressure 128/91 H 129/73 H Blood Pressure Mean 103 91 Pulse Ox 97 98 Oxygen Delivery Method Room Air Room Air Positive well nourished and well developed General Appearance ED: well developed and NAD HEENT Reports moist mucous membranes normocephalic and atraumatic Eyes PERRL and EOMs intact bilaterally Neck full ROM and supple Resp normal respiratory effort and clear to auscultation bilaterally Cardio regular rate, regular rhythm and no murmurs GI non-tender and non-distended Auscultation: normoactive bowel sounds Palpation: soft Back/Spine no CVA tenderness General Back: other FROM Extremity normal to inspection General Extremety ED: Negative for edema, pulses abnormal or tenderness General Extremity: Negative for edema or pulses abnormal Neuro oriented x3, CN's II-XII intact bilaterally and no sensory deficits noted Sensorium / Orientation: awake and alert Motor Exam: strength 5/5 throughout Psych thought process normal, cooperative, speech normal, denies homicidal ideation and denies suicidal ideation Appearance: grossly normal, appropriate and well kempt Attitude: calm and guarded Activity / Motor Behavior: appropriate eye contact Thought Process: normal thought process Thought Content: hallucination(s) Positive for visual (shadows) Attention / Concentration: attention grossly intact Memory / Cognition: memory grossly intact Insight: insight good Judgement: judgement good Skin no rashes or lesions noted and no wounds MDM MDM MDM Narrative Medical decision making narrative: And ruling out organic causes of acute psychosis since the patient has never had these symptoms, obtain labs, drug screen, TSH, CT head. All negative/within n ormal limits. I reviewed the CT images and the report which I agree with. Patient is medically cleared for psychiatric evaluation. Crisis contacted for further evaluation and disposition. They evaluated the patient and agree the patient would probably best be served with placement. Patient has been concerned that she is not able to provide adequately for her baby in this condition. Furthermore she has a history of suicide attempts that have placed her in the ICU in the past and is high risk given that she was recently diagnosed with depression. Patient is wanting to go somewhere voluntarily. Lab Data Attestation: I reviewed the patient's lab results. Labs: Laboratory Results - last 24 hr 01/10/24 01/10/24 01:05 02:05 WBC 5.4 RBC 4.18 L Hgb 13.2 Hct 40.8 MCV 97.6 MCH 31.6 MCHC 32.4 RDW Std Deviation 46.4 H RDW Coeff of Reggie 12.8 Plt Count 218 MPV 10.0 Immature Gran % (Auto) 0.200 Neut % (Auto) 48.4 Lymph % (Auto) 40.7 [place] % (Auto) 8.1 Eos % (Auto) 2.0 Baso % (Auto) 0.6 Absolute Neuts (auto) 2.6 Absolute Lymphs (auto) 2.20 Nucleated RBC % 0 Sodium 142 Potassium 3.6 Chloride 109 H Carbon Dioxide 27.0 Anion Gap 6 BUN 9 Creatinine 0.75 Estim Creat Clear Calc 106.06 Est GFR (MDRD) Af Amer 124 Est GFR (MDRD) Non-Af 103 BUN/Creatinine Ratio 12.0 Glucose 93 Calcium 9.6 TSH 1.74 Serum , Qual NEGATIVE Urine Opiates Screen NEGATIVE Urine Methadone Screen NEGATIVE Ur Barbiturates Screen NEGATIVE Ur Phencyclidine Scrn NEGATIVE Ur Amphetamines Screen NEGATIVE MDMA (Ecstasy) Screen NEGATIVE U Benzodiazepines Scrn NEGATIVE Urine Cocaine Screen NEGATIVE U Cannabinoids Screen NEGATIVE Ur Drug Screen Comment Ethyl Alcohol < 3.0 Radiography Diagnostic Testing: Clinical Impression(s) from Imaging Studies Brain CT 01/10/24 01:11 IMPRESSION: No acute intracranial hemorrhage in this noncontrast head CT. Electronically Signed: Tank Philip MD at 1:56 EDT , Management Discussion w/another healthcare provider: family service worker/Case management Discharge Plan Triage Chief Complaint: Mental Health ED Provider: Vincent Peterson Dx/Rx/DC Orders Clinical Impression: Acute psychosis, depression Prescriptions: No Action propranolol 10 mg tablet 10 mg PO BID PRN (Reason: PVCs) Patient Comments: take 1 tablet by mouth twice a day PNV #[id number] acid-[id number] 30 mg iron-10 mg iron-1 mg capsule 1 cap PO .every day aspirin 81 mg tablet,delayed release (DR/EC) 81 mg PO DAILY sulfamethoxazole-trimethoprim [Bactrim DS] 800-160 mg tablet 1 tab PO BID 5 Days Qty: 10 0RF acetaminophen 500 mg Tablet 1,000 mg PO Q6H PRN PRN (Reason: Pain 1-10 Or Fever) Qty: 30 0RF Primary Care Provider: Wu Herrera Referrals: Wu Herrera MD [Primary Care Provider] - Print Language: Beninese Disposition Disposition: Psychiatric Hospital or Unit
[2024-01-10 01:36] LABS: Internal QC Validated? YES +Cl - CLEAR BKGD; Pregnancy, Serum, hCG Quali. NEGATIVE Negative; Record Kit Lot#, Serum Preg. 772476
[2024-01-10 01:51] LABS: Anion Gap 6 (5-15); BUN 9 mg/dL (7-18); Calcium,Total 9.6 mg/dL (8.5-10.1); Chloride 109 mmol/L (98-107); Creatinine, Serum 0.75 mg/dL (0.55-1.02); EST Glomerular Filtration Rate 103 mL/min (>60); Est Glom Filt Rate - Afr Amer 124 mL/min (>60); Estimated Creatinine Clearance 106.06 ml/min; Glucose 93 mg/dL (74-106); Potassium 3.6 mmol/L (3.5-5.1); Sodium Level 142 mmol/L (136-145); Thyroid Stim Hormone (TSH) 1.74 uIU/mL (0.358-3.74)
[2024-01-10 01:56] LABS: Absolute Neutrophil Count 2.6 X10^3/uL (2.0-7.7); Alcohol, Blood (Medical)-Serum < 3.0 mg/dL; Basophil# 0.03 X10^3/uL; Basophil% 0.6 % (0-1); Eosinophil# 0.11 X10^3/uL; Hematocrit 40.8 % (37-47); Hemoglobin 13.2 g/dL (12.0-15.0); Lymphocyte % 40.7 % (19-41); Mean Corp Hgb Conc 32.4 g/dL (32-36); Mean Corpuscular Hgb 31.6 pg (27.0-32.0); Mean Corpuscular Volume 97.6 fL (81-99); Monocyte# 0.44 X10^3/uL; Monocyte% 8.1 % (0-10); NRBC Flagged by Analyzer 0 % (0-5); Neutrophil # 2.61 X10^3/uL (2.7-7.7); Neutrophil % 48.4 % (47-70); Platelet Count 218 K/mm3 (150-450); RBC Distribution Width CV 12.8 % (11.6-14.6); RBC Distribution Width SD 46.4 fl (35.1-43.9); Red Blood Count 4.18 M/mm3 (4.2-5.4); White Blood Count 5.4 K/mm3 (4.4-11.0)
[2024-01-10 02:00] VITALS: BP 129/73; PULSE 71; RESP 18; O2SAT 98
[2024-01-10 02:26] LABS: Amphetamine Urine VISTA NEGATIVE (<1000 ng/mL); Barbiturate Urine VISTA NEGATIVE (< 200 ng/mL); Benzodiazepine Urine VISTA NEGATIVE (< 200 ng/mL); Cocaine Urine VISTA NEGATIVE (< 300 ng/mL); Ecstacy Urine VISTA NEGATIVE (< 500 ng/mL); Methadone Urine VISTA NEGATIVE (< 300 ng/mL); PCP Urine VISTA NEGATIVE (< 25 ng/mL); THC Urine VISTA NEGATIVE (< 50 ng/mL); Vista UDS pH Range 6
[2024-01-10] MEDS: Ibuprofen 600 MG Tablet PO (05:16)
[2024-01-10] MEDS: cycloBENZAPRine HCl 10 MG Tablet PO (05:16)
--- NOTE | 2024-01-10 06:05 | ED.RN ---
Report gave to Miya BARNEY, questions/concerns answered
[2024-01-10 08:00] VITALS: BP 134/78; PULSE 64; RESP 18; TEMP 36.6; O2SAT 99
== END 2024-01-10 08:06 ==
PROVIDERS: Emergency Provider Emergency Medicine; PCP Family Medicine; Visit Provider Emergency Medicine
DX: O99.345 Other mental disorders complicating the puerperium (principal); F23 Brief psychotic disorder; O99.335 Smoking (tobacco) complicating the puerperium; F17.210 Nicotine dependence, cigarettes, uncomplicated; F17.290 Nicotine dependence, other tobacco product, uncomplicated
CPT/HCPCS: 36415; 70450; 80048; 80307; 80320; 84443; 84703; 85025; 99285; G0480

== ENCOUNTER 2024-01-21 13:09 | Emergency (ER) | payer MEDICAID, SELFPAY ==
[2024-01-21 13:10] VITALS: BP 122/90; PULSE 110; RESP 16; TEMP 35.8; O2SAT 95; BMI 26.2
--- NOTE | 2024-01-21 13:39 | US_ITS ---
STUDY: ABDOMINAL ULTRASOUND - RIGHT UPPER QUADRANT REASON FOR VISIT: Female, 23 years old ruq pain TECHNIQUE: Ultrasound evaluation of the right upper quadrant was performed with real-time and static sadler-scale imaging. TECHNICAL QUALITY: Adequate. COMPARISON: None. FINDINGS: Liver: The liver measures 15.4 cm. There is normal echogenicity of the liver. The bile ducts are within normal limits. There is hepatic color flow. The direction of portal flow is hepatopetal. There is no demonstrated mass lesion. Gallbladder: Normal distended gallbladder. The gallbladder wall measures 1 mm. There is a negative sonographic Gaspar''s sign. There is no pericholecystic fluid. There are no gallstones. Common Bile Duct (C.B.D.): The common bile duct measures 3 mm. Pancreas: Normal size of the head, body and tail of the pancreas. There is normal echogenicity of the pancreas. There is no demonstrated pancreatic mass or cyst. Right Kidney: Normal size of the right kidney. The right kidney measures 10.1 cm x 4.7 cm x 5.1 cm. Normal renal cortex. The right cortex measures 1.8 cm. There is no demonstrated renal mass or cyst. There is no right hydronephrosis. US/Gallbladder IMPRESSION: Normal right upper quadrant ultrasound examination. Electronically Signed: Jr Shaver MD at 15:09 EDT ,
--- NOTE | 2024-01-21 13:41 | ED.VIS.GI ---
HPI <BRODIE Anderson - Last Filed: 01/21/24 17:52> HPI - GI History of Present Illness Chief Complaint: Abd Pain Narrative Narrative: 23-year-old females had 1 week of decreased appetite and postprandial right upper quadrant pain. She saw her primary care doctor a few days ago and had blood work. Over the last 2 days she has only been sipping fluids. She tried to have a boost shake yesterday and vomited once so she has not tried any food since then. She was sent here to be evaluated for gallbladder issues. She states anytime she ate earlier this week she had yellow diarrhea. No black or bloody stools. No urinary symptoms. No history of abdominal surgeries. She smokes 1/2 PPD, no alcohol use, no NSAIDs. PFS <BRODIE Anderson - Last Filed: 01/21/24 17:52> [facility] Medical History Former smoker depression History of anorexia nervosa Vitamin B12 deficiency Abdominal bloating Constipation History of marijuana use Generalized anxiety disorder Bipolar 1 disorder, depressed, moderate PTSD (post-traumatic stress disorder) Tobacco abuse Osteopenia GERD (gastroesophageal reflux disease) Asthma Migraines (~12/08/23) Alcohol withdrawal Desire for detoxification History of cocaine use Alcohol use disorder Home Medications ?Medication ?Instructions ?Recorded ?Last Taken ?Type acetaminophen 500 mg tablet 1,000 mg PO Q6H back pain 01/10/24 Unknown History cyclobenzaprine 10 mg tablet 10 mg PO TID back spasms 01/10/24 Unknown History ibuprofen 600 mg tablet 600 mg PO Q6H back pain 01/10/24 Unknown History omeprazole 20 mg capsule,delayed 20 mg PO DAILY #30 CAPSULES 01/21/24 Unknown Rx release ondansetron 4 mg disintegrating 4 mg PO Q8H PRN PRN Nausea #12 tabs 01/21/24 Unknown Rx tablet Allergy/AdvReac Type Severity Reaction Status Date / Time No Known Allergies Allergy Verified 01/21/24 13:10 Family History Other Alcoholism Anxiety Arthritis Asthma COPD (chronic obstructive pulmonary disease) Depression High cholesterol Schizophrenia Surgical History History of surgery Social History Smoking Status: Current every day smoker tobacco type: cigarettes and e-cigarettes alcohol intake: former details: 5 months sober substance use type: does not use ROS <BRODIE Anderson - Last Filed: 01/21/24 17:52> ROS ED ROS Narrative Constitutional: Negative for fever, chills, malaise. CVS: Negative for chest pain. Respiratory: Negative for shortness of breath. GI: Positive for abdominal pain, nausea, vomiting, diarrhea. : Negative for dysuria. EXAM <BRODIE Anderson - Last Filed: 01/21/24 17:52> Physical Exam Narrative Exam Narrative: CONST: Patient crying and appears uncomfortable lying in bed. EYES: Normal inspection. NECK: Normal inspection. RESP: No respiratory distress, CTAB. CVS: Regular rate and rhythm, no murmur, no gallop. ABD: Soft with RUQ tenderness and positive Gaspar sign, no guarding or rebound, nondistended, no hepatosplenomegaly. SKIN: Color normal, no rash, warm, dry, intact. EXTREMITIES: Normal appearance, no pedal edema. NEURO: Alert and answering questions appropriately. PSYCH: Normal affect. Const Vital Signs: 01/21/24 13:10 01/21/24 15:00 01/21/24 16:00 Temperature 96.4 F L 97.2 F L Temperature Source Temporal Oral Pulse Rate 110 H 86 75 Respiratory Rate 16 16 16 Blood Pressure 122/90 H 103/66 108/72 Blood Pressure Mean 100 78 84 Pulse Ox 95 100 97 Oxygen Delivery Method Room Air Room Air Room Air <Federico Gautam MD - Last Filed: 01/21/24 19:38> Physical Exam Const Vital Signs: 01/21/24 13:10 01/21/24 15:00 01/21/24 16:00 Temperature 96.4 F L 97.2 F L Temperature Source Temporal Oral Pulse Rate 110 H 86 75 Respiratory Rate 16 16 16 Blood Pressure 122/90 H 103/66 108/72 Blood Pressure Mean 100 78 84 Pulse Ox 95 100 97 Oxygen Delivery Method Room Air Room Air Room Air MDM <BRODIE Anderson - Last Filed: 01/21/24 17:52> MDM MDM Narrative Medical decision making narrative: Differential: Biliary colic, cholecystitis, pancreatitis, GERD among others Patient has RUQ abdominal pain and nausea and vomiting. She appears well and nontoxic. She was tachycardic at 110 bpm with otherwise stable vital signs. She has RUQ tenderness with a positive Gaspar sign. No peritoneal signs. CBC, CMP, lipase are all within normal limits. test is negative. Gallbladder ultrasound shows no abnormalities. This still could be biliary colic however GERD/PUD is also on the differential. I ordered IV Protonix and she passed a p.o. challenge. I prescribed Zofran, omeprazole, and discussed dietary changes and return precautions. I provided the general surgery office number so she can have further evaluation of her gallbladder. She was discharged in stable condition. Lab Data Attestation: I reviewed the patient's lab results. Labs: Laboratory Results - last 24 hr 01/21/24 01/21/24 13:47 15:30 WBC 5.1 RBC 4.15 L Hgb 13.0 Hct 39.7 MCV 95.7 MCH 31.3 MCHC 32.7 RDW Std Deviation 44.3 H RDW Coeff of Reggie 12.6 Plt Count 202 MPV 10.5 Immature Gran % (Auto) 0.200 Neut % (Auto) 60.2 Lymph % (Auto) 30.0 [place] % (Auto) 8.0 Eos % (Auto) 1.0 Baso % (Auto) 0.6 Absolute Neuts (auto) 3.1 Absolute Lymphs (auto) 1.54 Nucleated RBC % 0 Sodium 140 Potassium 3.8 Chloride 108 H Carbon Dioxide 27.0 Anion Gap 5 BUN 8 Creatinine 0.67 Estim Creat Clear Calc 116.56 Est GFR (MDRD) Af Amer 141 Est GFR (MDRD) Non-Af 117 BUN/Creatinine Ratio 11.9 Glucose 90 Calcium 9.5 Total Bilirubin 0.50 AST 23 ALT 35 Alkaline Phosphatase 107 Total Protein 7.0 Albumin 4.0 Globulin 3.0 Albumin/Globulin Ratio 1.3 Lipase 25 Serum , Qual NEGATIVE Urine Color Yellow Urine Clarity Sl. Cloudy Urine pH 6.0 Ur Specific [place] 1.020 Urine Protein 30 H Urine Glucose (UA) Normal Urine Ketones 50 H Urine Occult Blood Negative Urine Nitrite Negative Urine Bilirubin Negative Urine Urobilinogen Normal Ur Leukocyte Esterase 25 H Urine RBC 0 SEEN Urine WBC 5-10 SEEN Ur Squamous Epith Cells 10-25 SEEN Urine Bacteria 2+ Urine Mucus 2+ Radiography Diagnostic Testing: Clinical Impression(s) from Imaging Studies Gallbladder Ultrasound 01/21/24 13:39 IMPRESSION: Normal right upper quadrant ultrasound examination. Electronically Signed: Jr Shaver MD at 15:09 EDT , <Federico Gautam MD - Last Filed: 01/21/24 19:38> [facility] Lab Data Labs: Laboratory Results - last 24 hr 01/21/24 01/21/24 13:47 15:30 WBC 5.1 RBC 4.15 L Hgb 13.0 Hct 39.7 MCV 95.7 MCH 31.3 MCHC 32.7 RDW Std Deviation 44.3 H RDW Coeff of Reggie 12.6 Plt Count 202 MPV 10.5 Immature Gran % (Auto) 0.200 Neut % (Auto) 60.2 Lymph % (Auto) 30.0 [place] % (Auto) 8.0 Eos % (Auto) 1.0 Baso % (Auto) 0.6 Absolute Neuts (auto) 3.1 Absolute Lymphs (auto) 1.54 Nucleated RBC % 0 Sodium 140 Potassium 3.8 Chloride 108 H Carbon Dioxide 27.0 Anion Gap 5 BUN 8 Creatinine 0.67 Estim Creat Clear Calc 116.56 Est GFR (MDRD) Af Amer 141 Est GFR (MDRD) Non-Af 117 BUN/Creatinine Ratio 11.9 Glucose 90 Calcium 9.5 Total Bilirubin 0.50 AST 23 ALT 35 Alkaline Phosphatase 107 Total Protein 7.0 Albumin 4.0 Globulin 3.0 Albumin/Globulin Ratio 1.3 Lipase 25 Serum , Qual NEGATIVE Urine Color Yellow Urine Clarity Sl. Cloudy Urine pH 6.0 Ur Specific [place] 1.020 Urine Protein 30 H Urine Glucose (UA) Normal Urine Ketones 50 H Urine Occult Blood Negative Urine Nitrite Negative Urine Bilirubin Negative Urine Urobilinogen Normal Ur Leukocyte Esterase 25 H Urine RBC 0 SEEN Urine WBC 5-10 SEEN Ur Squamous Epith Cells 10-25 SEEN Urine Bacteria 2+ Urine Mucus 2+ Radiography Diagnostic Testing: Clinical Impression(s) from Imaging Studies Gallbladder Ultrasound 01/21/24 13:39 IMPRESSION: Normal right upper quadrant ultrasound examination. Electronically Signed: Jr Shaver MD at 15:09 EDT , Treatment and Re-Evaluation :: Dr. Gautam: I have personally performed a face to face assessment of the patient and have reviewed the KARIE Note. I performed a substantive portion of the visit including all aspects of the following. My church findings include: History is right upper quadrant abdominal pain, nausea and vomiting times days. Exam is afebrile. Vital signs noted. Regular rate and rhythm. Lungs clear to auscultation bilaterally. Abdomen soft mild tenderness to palpation right upper quadrant. Negative Gaspar sign. Medical Decision Making: Patient having postprandial pain and nausea and vomiting. Check labs. Check ultrasound. Ultrasound radiology report reviewed and there is no evidence of cholecystitis, no gallstones. P.o. challenge. Symptomatic treatment. Discharge. Other additions or changes: [None] Discharge Plan Triage Chief Complaint: Abd Pain ED Midlevel Provider: Jacy Willis ED Provider: Federico Gautam Dx/Rx/DC Orders Clinical Impression: Abdominal pain, RUQ, Nausea and vomiting Instructions: Abdominal Pain Prescriptions: New ondansetron 4 mg tablet,disintegrating 4 mg PO Q8H PRN PRN (Reason: Nausea) Qty: 12 0RF omeprazole 20 mg capsule,delayed release(DR/EC) 20 mg PO DAILY Qty: 30 0RF No Action cyclobenzaprine 10 mg tablet 10 mg PO TID ibuprofen 600 mg tablet 600 mg PO Q6H acetaminophen 500 mg Tablet 1,000 mg PO Q6H Primary Care Provider: Wu Herrera Referrals: Wu Herrera MD [Primary Care Provider] - Martínez Corona MD [Med Staff - Active Staff] - Activity Restrictions/Additional Instructions: Your blood work and gallbladder ultrasound today appear normal. This pain could still be from your gallbladder or from GERD/acid reflux. I prescribed medication for nausea and stomach acid. Avoid fried or fatty foods, spicy foods, tomato-based foods. After eating sit upright for at least 2 hours. Elevate the head of your bed. All of these changes help decrease gastroesophageal reflux. I provided the phone number for general surgery for further evaluation of your gallbladder. Print Language: Turkmen Disposition Disposition: Home, Self Care Discharge Date/Time: 01/21/24 16:47
[2024-01-21] MEDS: 0.9% Normal Saline (1000mL) 1,000 ML 999 ML IV (13:44)
[2024-01-21] MEDS: Ketorolac 15 MG/ML Vial IV (13:45)
[2024-01-21] MEDS: Morphine 4 MG/ML Syringe IV (13:58)
[2024-01-21] MEDS: Ondansetron 4 MG/2 ML Vial IV (13:58)
[2024-01-21 14:03] LABS: Absolute Lymphocyte Count 1.54 X10^3/uL (0.83-4.51); Absolute Neutrophil Count 3.1 X10^3/uL (2.0-7.7); Basophil# 0.03 X10^3/uL; Basophil% 0.6 % (0-1); Eosinophil# 0.05 X10^3/uL; Hematocrit 39.7 % (37-47); Lymphocyte # 1.54 X10^3/ul (0.83-4.51); Mean Corp Hgb Conc 32.7 g/dL (32-36); Mean Corpuscular Hgb 31.3 pg (27.0-32.0); Mean Corpuscular Volume 95.7 fL (81-99); Mean Platelet Vol. 10.5 fl (6.2-12.0); Monocyte# 0.41 X10^3/uL; NRBC Flagged by Analyzer 0 % (0-5); Neutrophil % 60.2 % (47-70); Platelet Count 202 K/mm3 (150-450); RBC Distribution Width CV 12.6 % (11.6-14.6); RBC Distribution Width SD 44.3 fl (35.1-43.9); Red Blood Count 4.15 M/mm3 (4.2-5.4); White Blood Count 5.1 K/mm3 (4.4-11.0)
[2024-01-21 14:08] LABS: Internal QC Validated? YES +Cl - CLEAR BKGD; Pregnancy, Serum, hCG Quali. NEGATIVE Negative
[2024-01-21 14:12] LABS: ALB/GLOB Ratio 1.3 RATIO (0.9-2.4); AST(SGOT) 23 U/L (15-37); Alanine Aminotransfer ALT/SGPT 35 U/L (13-56); Alkaline Phosphatase 107 U/L (45-117); Anion Gap 5 (5-15); BUN 8 mg/dL (7-18); BUN/Creat Ratio 11.9 RATIO (10-20); Calcium,Total 9.5 mg/dL (8.5-10.1); Chloride 108 mmol/L (98-107); Creatinine, Serum 0.67 mg/dL (0.55-1.02); EST Glomerular Filtration Rate 117 mL/min (>60); Est Glom Filt Rate - Afr Amer 141 mL/min (>60); Estimated Creatinine Clearance 116.56 ml/min; Glucose 90 mg/dL (74-106); Lipase 25 U/L (13-75); Potassium 3.8 mmol/L (3.5-5.1); Sodium Level 140 mmol/L (136-145)
[2024-01-21 15:00] VITALS: BP 103/66; PULSE 86; RESP 16; O2SAT 100
[2024-01-21 15:39] LABS: Red Blood Cells-Urine 0 SEEN /hpf (0-5)
[2024-01-21] MEDS: Pantoprazole Sodium 40 MG in 0.9% Normal Saline (100mL MB+) 100 ML 330 MG IV (15:54)
[2024-01-21 15:56] LABS: Color, Urine Yellow (Yellow); Glucose, Dipstick Normal (Normal); Ketone-Dipstick 50 mg/dl (Negative); Leukocyte Esterase-Dipstick 25 /ul (Negative); Nitrite-Dipstick Negative (Negative); Occult Blood-Urine Negative /ul (Negative); Protein-Dipstick 30 mg/dl (Negative); Urine Bilirubin Dipstick Negative (Negative); Urine Clarity Sl. Cloudy (Clear); Urine Urobilinogen Normal (Normal)
[2024-01-21 16:00] VITALS: BP 108/72; PULSE 75; RESP 16; TEMP 36.2; O2SAT 97
[2024-01-21 16:23] LABS: Mucous, Urine 2+ /hpf (<or=2+); Squamous Epithelial Cells - UA 10-25 SEEN /hpf (5-10); White Blood Cells 5-10 SEEN /hpf (0-5)
[2024-01-21 16:24] LABS: Bacteria 2+ /hpf (None Seen)
== END 2024-01-21 16:47 | disposition home or self-care (01) ==
PROVIDERS: Physician Assistant; Emergency Provider Emergency Medicine; PCP Family Medicine; Visit Provider Emergency Medicine
DX: R10.11 Right upper quadrant pain (principal); R11.2 Nausea with vomiting, unspecified; F17.210 Nicotine dependence, cigarettes, uncomplicated; F17.290 Nicotine dependence, other tobacco product, uncomplicated
CPT/HCPCS: 76705; 80053; 81001; 83690; 84703; 85025; 87086; 87088; 96365; 96375; 96376; 99283; J7030; J2405

== ENCOUNTER → 2024-02-11 | Outpatient (CLI) | payer MEDICAID, SELFPAY ==
--- NOTE | 2024-02-11 09:01 | US_ITS ---
STUDY: ULTRASOUND BREAST - RIGHT REASON FOR EXAM: Female, 23 years old. Right breast lump. TECHNIQUE: Axial and longitudinal images of the RIGHT breast were performed with a high resolution ultrasound transducer. # OF IMAGES: 35 COMPARISON: None. FINDINGS: RIGHT Breast: The inferior half of the right breast as well as the axillary region of the right breast were examined with ultrasound. Multiple simple cysts are seen. The largest cyst measures 9 mm x 7 mm x 7 mm. This is at the 11:00 position of the breast at 10 cm from the nipple. US/Breast Limited Unilateral IMPRESSION: Multiple simple cysts. ASSESSMENT CATEGORY: BIRADS Category 2: Benign. A letter regarding these results will be sent to the patient by the facility within 30 days. Electronically Signed: Jr Shaver MD at 10:55 EDT ,
--- NOTE | 2024-02-11 09:01 | US_ITS ---
STUDY: ULTRASOUND BREAST - LEFT REASON FOR EXAM: Female, 23 years old. Left breast lump. TECHNIQUE: Axial and longitudinal images of the LEFT breast were performed with a high resolution ultrasound transducer. # OF IMAGES: 28 COMPARISON: None. FINDINGS: LEFT Breast: Imaging of the inferior half of the left breast was examined with ultrasound. 3 simple cysts are seen. The largest measures 8 mm x 11 mm x 3 mm. This is at the 7:00 position of the breast at 6 cm from the nipple. US/Breast Limited Unilateral IMPRESSION: 3 benign-appearing cysts are seen. ASSESSMENT CATEGORY: BIRADS Category 2: Benign. A letter regarding these results will be sent to the patient by the facility within 30 days. Electronically Signed: Jr Shaver MD at 10:56 EDT ,
== END | disposition home or self-care (01) ==
PROVIDERS: PCP Family Medicine; Referring Provider Nurse Practitioner Family; Visit Provider Nurse Practitioner Family
DX: R22.2 Localized swelling, mass and lump, trunk (principal); R23.4 Changes in skin texture
CPT/HCPCS: 76642

== ENCOUNTER 2024-02-16 20:36 | Emergency (ER) | payer MEDICAID, SELFPAY ==
[2024-02-16 20:38] VITALS: BP 127/80; PULSE 89; RESP 18; TEMP 36.2; O2SAT 99; BMI 26.0
--- NOTE | 2024-02-16 20:54 | EX.ED.DYSGE1 ---
HPI History of Present Illness Chief Complaint: GI Bleed Detail of Chief Complaint: Bright red blood per rectum without pain Informant: patient Onset/Context/Timing Onset: Today and Yesterday Context: Sudden Onset Timing: Intermittent Quality: Bright red blood per rectum with bowel movement Location: Rectum Current Severity: Moderate Maximum Severity: Moderate Worsened by: Bowel movement Relieved by: Not applicable Associated Symptoms Associated Symptoms: None Narrative Narrative: patient is a 23-year-old who presents because of bright red blood per rectum. She noticed Yvonna blood in the commode when used the restroom. She also noted blood on toilet paper. She denies history of hemorrhoids. She denies history of liver disease other than fatty liver on ultrasound. She apparently had a abnormal Hemoccult test and was told to follow-up on Thursday for repeat. Patient denies abdominal pain. Patient has orthostatic symptoms. Patient denies black stool or maroon-colored stool. Patient is not on antithrombotic or anticoagulant. Patient denies orthostatic symptoms. Prior similar symptoms: No Recent Illness/Hospitalization: No PFSH PFSH Medical History Former smoker depression History of anorexia nervosa Vitamin B12 deficiency Abdominal bloating Constipation History of marijuana use Generalized anxiety disorder Bipolar 1 disorder, depressed, moderate PTSD (post-traumatic stress disorder) Tobacco abuse Osteopenia GERD (gastroesophageal reflux disease) Asthma Migraines (~12/08/23) Alcohol withdrawal Desire for detoxification History of cocaine use Alcohol use disorder Home Medications ?Medication ?Instructions ?Recorded ?Last Taken ?Type omeprazole 20 mg capsule,delayed 20 mg PO DAILY #30 CAPSULES 01/21/24 Unknown Rx release ondansetron 4 mg disintegrating 4 mg PO Q8H PRN PRN Nausea #12 tabs 01/21/24 Unknown Rx tablet aripiprazole 2 mg tablet 4 mg PO QHS 02/08/24 Unknown History Allergy/AdvReac Type Severity Reaction Status Date / Time No Known Allergies Allergy Verified 02/16/24 20:38 Family History Other Alcoholism Anxiety Arthritis Asthma COPD (chronic obstructive pulmonary disease) Depression High cholesterol Schizophrenia Surgical History History of surgery Social History Smoking Status: Current every day smoker tobacco type: cigarettes and e-cigarettes alcohol intake: former details: 5 months sober substance use type: does not use ROS ROS ED Constitutional Constitutional ED: Denies chills or fever(s) Cardiovascular Cardiovascular: Denies chest pain or palpitations Respiratory/Chest Respiratory/Chest: Denies cough, dyspnea or dyspnea on exertion Gastrointestinal Gastrointestinal: Reports other Details: Bright red blood per rectum with bowel movement ; Denies abdominal pain, constipation, diarrhea, melena, nausea or vomiting Genitourinary Genitourinary ED: Denies hematuria Psychiatric Psychiatric: Reports anxiety Hematologic/Lymphatic Hematologic/Lymphatic: Reports systems reviewed and no addt'l complaints, except as documented EXAM Physical Exam Const Vital Signs: 02/16/24 20:38 Temperature 97.2 F L Temperature Source Temporal Pulse Rate 89 Respiratory Rate 18 Blood Pressure 127/80 H Blood Pressure Mean 95 Pulse Ox 99 Oxygen Delivery Method Room Air Positive well nourished and well developed General Appearance ED: well developed and NAD; Negative for pallor HEENT Reports moist mucous membranes Eyes PERRL and EOMs intact bilaterally General Eye ED: Negative for pale conjunctiva or scleral icterus Resp normal respiratory effort Cardio regular rate and regular rhythm GI normal to inspection, nondistended, normoactive bowel sounds, non-tender, non-distended and no masses; Negative for hepatosplenomegaly Narrative: Rectal exam reveals no fissures, fistulas or hemorrhoids. Digital exam revealed no mass or tenderness. There was blood noted on gloved index finger. Anoscopy was performed. Back/Spine no CVA tenderness Extremity General Extremety ED: Negative for edema or tenderness General Extremity: Negative for edema Neuro oriented x3 and CN's II-XII intact bilaterally Sensorium / Orientation: alert Psych mental status grossly normal Skin no rashes or lesions noted, no wounds and skin turgor normal General Skin Exam: Negative for jaundice or pallor MDM MDM MDM Narrative Medical decision making narrative: With bright red blood per rectum. Most likely this is due to hemorrhoidal bleeding. Need to determine if there is internal or external hemorrhoids or other cause. Anoscopy was performed. Procedures Other Procedures Procedure(s): Anoscopy: Patient was placed in left decubitus position. Nurse was in the room as diabetologist. Anoscopy reveals an external hemorrhoid at 7:00 and 5:00 lithotomy position. Rectal mucosa is normal. Stool above scope is greenish-brown. There is no blood noted above scope. Discharge Plan Triage Chief Complaint: GI Bleed ED Provider: Too Bob Dx/Rx/DC Orders Clinical Impression: External bleeding hemorrhoids, Bipolar 1 disorder, depressed, severe, Alcohol use disorder Instructions: ED Hemorrhoids Prescriptions: No Action aripiprazole 2 mg tablet 4 mg PO QHS ondansetron 4 mg tablet,disintegrating 4 mg PO Q8H PRN PRN (Reason: Nausea) Qty: 12 0RF omeprazole 20 mg capsule,delayed release(DR/EC) 20 mg PO DAILY Qty: 30 0RF Primary Care Provider: Wu Herrera Referrals: Wu Herrera MD [Primary Care Provider] - As Needed Activity Restrictions/Additional Instructions: There is no need for you to have a repeat Hemoccult test. There will be blood in your stool due to the bleeding hemorrhoids. Would not repeat this test for a couple of weeks. Print Language: Ethiopian Disposition Disposition: Home, Self Care
== END 2024-02-16 21:26 | disposition home or self-care (01) ==
LOC: ED 21:04
PROVIDERS: Emergency Provider Emergency Medicine; PCP Family Medicine; Visit Provider Emergency Medicine
DX: K64.4 Residual hemorrhoidal skin tags (principal); F31.4 Bipolar disorder, current episode depressed, severe, without psychotic features; F10.90 Alcohol use, unspecified, uncomplicated; F17.210 Nicotine dependence, cigarettes, uncomplicated; F17.290 Nicotine dependence, other tobacco product, uncomplicated; Z79.899 Other long term (current) drug therapy
CPT/HCPCS: 46600; 99282

== ENCOUNTER 2024-05-01 19:24 | Emergency (ER) | payer MEDICAID, SELFPAY ==
[2024-05-01 19:24] VITALS: BP 111/69; PULSE 76; RESP 18; TEMP 36.3; O2SAT 100; BMI 24.5
== END 2024-05-01 20:47 | disposition left against medical advice (07) ==
LOC: ED 21:12
PROVIDERS: PCP Family Medicine
DX: Z86.73 Personal history of transient ischemic attack (TIA), and cerebral infarction without residual deficits (principal)

== ENCOUNTER → 2024-05-10 | Outpatient (CLI) | payer MEDICAID, SELFPAY ==
--- NOTE | 2024-05-10 13:00 | ECHOD_ITS ---
Reason For Study: DYSPNEA/ CHEST PRESSURE Procedure This was a 2D Doppler, Color Flow transthoracic echocardiogram. Exam performed in department. Left Ventricle Normal LV size. Left ventricular systolic function is normal. The left ventricular ejection fraction is 60 %. Normal diastology for age. No regional wall motion abnormalities noted. Right Ventricle Normal RV size. Normal systolic function. Atria Normal left atrium. Normal right atrium. Mitral Valve Normal mitral valve. Tricuspid Valve Normal tricuspid valve. Aortic Valve Trisinus/trileaflet aortic valve. Pulmonic Valve Normal pulmonic valve. Great Vessels Normal aortic root. The pulmonary artery is normal size. Inferior vena cava collapse with respiration. Pericardium/Pleural No pericardial effusion. MMode/2D Measurements & Calculations LVIDd: 4.3 cm IVSd: 0.79 cm LVOT diam: 2.0 cm LVIDs: 2.8 cm LVPWd: 0.81 cm LVOT area: 3.0 cm2 RVDd: 2.6 cm FS: 33.7 % asc Aorta Diam: 2.1 cm LAV(MOD-bp): 25.4 ml LVAd ap4: 21.9 cm2 LAV(MOD-bp) Indexed: 16.0 ml/m2 LVLd ap4: 7.1 cm LAV(MOD-sp2): 29.4 ml EDV(MOD-sp4): 55.6 ml LAV(MOD-sp4): 21.0 ml EDV(sp4-el): 57.5 ml LVAs ap4: 12.7 cm2 LVLs ap4: 5.6 cm ESV(MOD-sp4): 23.8 ml ESV(sp4-el): 24.3 ml EF(MOD-sp4): 57.1 % EF(sp4-el): 57.7 % LVAd ap2: 22.3 cm2 SV(MOD-sp4): 31.8 ml SV(MOD-sp2): 31.8 ml LVLd ap2: 7.2 cm SI(MOD-sp4): 20.0 ml/m2 SI(MOD-sp2): 20.0 ml/m2 EDV(MOD-sp2): 57.4 ml EDV(sp2-el): 59.1 ml LVAs ap2: 13.6 cm2 LVLs ap2: 5.9 cm ESV(MOD-sp2): 25.6 ml ESV(sp2-el): 26.6 ml EF(MOD-sp2): 55.4 % SV(sp4-el): 33.2 ml Ao sinus diam: 2.4 cm LA A4 area: 10.8 cm2 LA dimension(2D): 2.8 cm RA A4 area: 9.5 cm2 TAPSE: 1.7 cm Time Measurements MV dec time: 0.19 sec Doppler Measurements & Calculations MV E max siddharth: 82.6 cm/sec Lat Peak E' Siddharth: 22.1 cm/sec Med Peak E' Siddharth: 15.3 cm/sec MV A max siddharth: 30.0 cm/sec E/E' lat: 3.7 E/E' med: 5.4 MV E/A: 2.8 Ao V2 max: 147.1 cm/sec LV V1 max: 110.0 cm/sec MV dec slope: 438.8 cm/sec2 Ao max P.6 mmHg LV V1 max P.8 mmHg Ao V2 mean: 103.6 cm/sec LV V1 mean P.7 mmHg Ao mean P.9 mmHg LV V1 mean: 76.3 cm/sec Ao V2 VTI: 28.4 cm LV V1 VTI: 20.7 cm AV (velocity ratio): 0.73 BALDOMERO(I,D): 2.2 cm2 BALDOMERO(V,D): 2.3 cm2 SV(LVOT): 62.8 ml PA V2 max: 89.7 cm/sec PA max PG (full): 1.0 mmHg ECHO/Echo Complete Interpretation Summary Normal LV size. Left ventricular systolic function is normal. The left ventricular ejection fraction is 60 %. Structurally normal valves. Ordering Physician: Aarti Dudley Referring Physician: Aarti Dudley Performed By: Debby Gotti RDCS
== END | disposition home or self-care (01) ==
PROVIDERS: PCP Family Medicine; Referring Provider Nurse Practitioner Gerontology; Visit Provider Nurse Practitioner Gerontology
DX: R55 Syncope and collapse (principal); R06.09 Other forms of dyspnea; R07.89 Other chest pain
CPT/HCPCS: 93225; 93226; 93306

== ENCOUNTER 2024-05-25 17:39 | Emergency (ER) | payer MEDICAID, SELFPAY ==
[2024-05-25 17:40] VITALS: BP 112/70; PULSE 92; RESP 17; TEMP 36.2; O2SAT 99; BMI 24.3
--- NOTE | 2024-05-25 17:48 | CT_ITS ---
STUDY: CTA NECK WITH CONTRAST REASON FOR EXAM: Female, 23 years old. Strangulation, dysphonia, vertigo RADIATION DOSAGE (If Supplied By Facility): CTDIvol = ( 15.6 ) mGy, DLP = ( 447.15 ) mGycm TECHNIQUE: CT angiography with multi-detector data acquisition was performed from the aortic arch to the skull base following intravenous administration of IV 100mL [id number]-[id number]. MIP images were reconstructed from the axial data set. Post-processing of the angiographic images was performed, with multiplanar reformation and 3D reconstruction. Individualized dose optimization techniques were used for this CT. COMPARISON: None. FINDINGS: AORTIC ARCH: Normal visualized aortic arch. Normal origins of the brachiocephalic, left common carotid, and left subclavian arteries. RIGHT CAROTID ARTERIES: Normal right common carotid artery (CCA). Normal right common carotid bulb. Normal origin of the right internal carotid (ICA) artery without a hemodynamically significant stenosis. Normal visualized cervical portion of the right internal carotid artery. Normal origin of the right external carotid artery (ECA). LEFT CAROTID ARTERIES: Normal left common carotid artery (CCA). Normal left common carotid bulb. Normal origin of the left internal carotid (ICA) artery without a hemodynamically significant stenosis. Normal visualized cervical portion of the left internal carotid artery. Normal origin of the left external carotid artery (ECA). VERTEBRAL ARTERIES: Normal bilateral vertebral arteries. CT/CTA Neck W/WO Contrast IMPRESSION: Normal bilateral cervical carotid and vertebral arteries. Electronically Signed: Wu Tavares MD at 19:30 EST ,
[2024-05-25] MEDS: Ondansetron 4 MG/2 ML Vial IV (18:10)
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
[2024-05-25 18:58] LABS: Anion Gap 5 (5-15); BUN 10 mg/dL (7-18); BUN/Creat Ratio 17.2 RATIO (10-20); Calcium,Total 8.3 mg/dL (8.5-10.1); Chloride 108 mmol/L (98-107); Creatinine, Serum 0.58 mg/dL (0.55-1.02); EST Glomerular Filtration Rate 138 mL/min (>60); Est Glom Filt Rate - Afr Amer 167 mL/min (>60); Estimated Creatinine Clearance 130.13 ml/min; Glucose 97 mg/dL (74-106); Potassium 3.7 mmol/L (3.5-5.1); Sodium Level 138 mmol/L (136-145)
[2024-05-25 19:38] VITALS: BP 114/68; PULSE 62; RESP 18; O2SAT 97
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
[2024-05-25 20:28] VITALS: BP 112/60; PULSE 51; RESP 16; TEMP 36.9; O2SAT 97
[2024-05-25] MEDS: Meclizine HCl 25 MG Tablet PO (20:34)
== END 2024-05-25 20:39 | disposition home or self-care (01) ==
PROVIDERS: Emergency Provider Emergency Medicine; PCP Family Medicine; Visit Provider Emergency Medicine
DX: F07.81 Postconcussional syndrome (principal); E11.9 Type 2 diabetes mellitus without complications; S00.83XA Contusion of other part of head, initial encounter; R42 Dizziness and giddiness; F17.210 Nicotine dependence, cigarettes, uncomplicated; F17.290 Nicotine dependence, other tobacco product, uncomplicated; Y09 Assault by unspecified means
CPT/HCPCS: 70498; 80048; 96374; 96375; 99284; Q9967; A4216; J2405

== ENCOUNTER 2024-05-28 11:48 | Emergency (ER) | payer MEDICAID, SELFPAY ==
[2024-05-28 11:49] VITALS: BP 113/69; PULSE 94; RESP 16; TEMP 35.9; O2SAT 100; BMI 24.0
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
[2024-05-28 12:43] VITALS: BP 99/69; PULSE 78; RESP 19; O2SAT 98
[2024-05-28 13:00] VITALS: BP 100/63; PULSE 79; RESP 18; O2SAT 98
[2024-05-28 13:34] VITALS: BP 108/64; PULSE 74; RESP 17; TEMP 36.9; O2SAT 97
== END 2024-05-28 13:38 | disposition home or self-care (01) ==
PROVIDERS: Emergency Provider Emergency Medicine; PCP Family Medicine; Visit Provider Emergency Medicine
DX: F07.81 Postconcussional syndrome (principal); F31.9 Bipolar disorder, unspecified
CPT/HCPCS: 70450; 99282

== ENCOUNTER → 2024-06-16 | Outpatient (CLI) | payer MEDICAID, SELFPAY ==
--- NOTE | 2024-06-16 08:22 | RAD_ITS ---
STUDY: X-RAY - ESOPHAGUS (BARIUM SWALLOW) WITH FLUOROSCOPY REASON FOR EXAM: Female, 23 years old. DYSPHAGIA TECHNIQUE: 106 fluoroscopic view(s) of the esophagus were obtained following swallowing of barium. FLUOROSCOPY TIME (if supplied): (41 seconds) minutes/seconds. 2.9 mGy. COMPARISON: None. FINDINGS: There is no demonstrated esophageal foreign body. There is no demonstrated stricture or mucosal abnormality. Normal gastroesophageal junction, without a demonstrated hiatal hernia. The patient ingested a 12 mm tablet of barium without any difficulties. Normal visualized aortic arch and descending thoracic aorta. Normal visualized pulmonary parenchyma. Normal visualized osseous structures of the thorax. RAD/Esophagus Dual Contrast IMPRESSION: Normal plain film x-ray examination (barium swallow) of the esophagus. Electronically Signed: Jr Shaver MD at 9:52 EST ,
== END | disposition home or self-care (01) ==
PROVIDERS: PCP Family Medicine; Referring Provider Otolaryngology; Visit Provider Otolaryngology
DX: R13.19 Other dysphagia (principal)
CPT/HCPCS: 74221

== ENCOUNTER 2024-06-30 17:05 | Emergency (ER) | payer MEDICAID, SELFPAY ==
[2024-06-30 17:06] VITALS: BP 113/67; PULSE 93; RESP 15; TEMP 36.4; O2SAT 100
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
--- NOTE | 2024-06-30 18:01 | CT_ITS ---
EXAM: CT HEAD WITHOUT INTRAVENOUS CONTRAST CLINICAL INDICATION: weakness TECHNIQUE: Multiple axial images were obtained of the head without intravenous contrast. This CT exam was performed using one or more of the following dose reduction techniques: automated exposure control, adjustment of the mA and/or kV according to patient size, and/or use of iterative reconstruction technique. COMPARISON: 05/28/2024 FINDINGS: BRAIN AND EXTRA-AXIAL SPACES: Unremarkable. No intra- or extra-axial hemorrhage. No evidence of acute infarct. No intracranial mass or mass effect. There is preservation of the sadler/white matter interface. Posterior fossa structures are unremarkable. Ventricles are appropriate for age. No hydrocephalus. Basal cisterns are patent. BONES/JOINTS: Unremarkable. No discrete lytic or blastic abnormalities. SINUSES: Unremarkable as visualized. Clear. MASTOID AIR CELLS: Unremarkable. Clear. ORBITS: Visualized globes, extraocular muscles, optic nerves and retrobulbar fat appear unremarkable. CT/Brain/Head without Contrast IMPRESSION: Negative head/brain CT without intravenous contrast. There has been no change from the reference exam. Electronically Signed: Bryan Cabrera MD at 19:17 EST ,
[2024-06-30 18:17] LABS: Absolute Lymphocyte Count 2.14 X10^3/uL (0.83-4.51); Absolute Neutrophil Count 4.9 X10^3/uL (2.0-7.7); Basophil# 0.04 X10^3/uL; Basophil% 0.5 % (0-1); Eosinophil# 0.06 X10^3/uL; Eosinophils% 0.8 % (0-5); Hematocrit 40.5 % (37-47); Hemoglobin 13.6 g/dL (12.0-15.0); Lymphocyte # 2.14 X10^3/ul (0.83-4.51); Lymphocyte % 27.8 % (19-41); Mean Corp Hgb Conc 33.6 g/dL (32-36); Mean Corpuscular Hgb 31.9 pg (27.0-32.0); Mean Corpuscular Volume 95.1 fL (81-99); Mean Platelet Vol. 9.8 fl (6.2-12.0); Monocyte# 0.59 X10^3/uL; Monocyte% 7.7 % (0-10); NRBC Flagged by Analyzer 0 % (0-5); Neutrophil # 4.86 X10^3/uL (2.7-7.7); Neutrophil % 62.9 % (47-70); Platelet Count 225 K/mm3 (150-450); RBC Distribution Width CV 12.2 % (11.6-14.6); RBC Distribution Width SD 42.3 fl (35.1-43.9); Red Blood Count 4.26 M/mm3 (4.2-5.4); White Blood Count 7.7 K/mm3 (4.4-11.0)
[2024-06-30 18:30] LABS: Bacteria 0 SEEN /hpf (None Seen); Mucous, Urine 0 SEEN /hpf (<or=2+); Red Blood Cells-Urine 0 SEEN /hpf (0-5)
[2024-06-30 18:30] LABS: Anion Gap 6 (5-15); BUN 9 mg/dL (7-18); BUN/Creat Ratio 13.4 RATIO (10-20); Chloride 109 mmol/L (98-107); Creatinine, Serum 0.67 mg/dL (0.55-1.02); EST Glomerular Filtration Rate 116 mL/min (>60); Est Glom Filt Rate - Afr Amer 140 mL/min (>60); Glucose 85 mg/dL (74-106); Potassium 3.5 mmol/L (3.5-5.1); Sodium Level 140 mmol/L (136-145)
[2024-06-30 18:33] LABS: Color, Urine Yellow (Yellow); Glucose, Dipstick Normal (Normal); Ketone-Dipstick 15 mg/dl (Negative); Leukocyte Esterase-Dipstick 25 /ul (Negative); Nitrite-Dipstick Negative (Negative); Occult Blood-Urine Negative /ul (Negative); Protein-Dipstick Negative (Negative); Urine Bilirubin Dipstick Negative (Negative); Urine Clarity Clear (Clear); Urine Urobilinogen Normal (Normal)
[2024-06-30 18:44] LABS: Internal QC Validated? YES +Cl - CLEAR BKGD; Pregnancy, Urine Negative Negative; Squamous Epithelial Cells - UA 0-5 SEEN /hpf (5-10); White Blood Cells 0-5 SEEN /hpf (0-5)
[2024-06-30 19:06] VITALS: BP 91/56; PULSE 68; RESP 16; O2SAT 98
[2024-06-30 19:36] VITALS: BP 91/56; PULSE 68; RESP 18; TEMP 36.4; O2SAT 98
== END 2024-06-30 19:52 | disposition home or self-care (01) ==
PROVIDERS: Nurse Practitioner; Emergency Provider Emergency Medicine; PCP Family Medicine; Visit Provider Emergency Medicine
DX: R20.2 Paresthesia of skin (principal); F17.210 Nicotine dependence, cigarettes, uncomplicated; F17.290 Nicotine dependence, other tobacco product, uncomplicated
CPT/HCPCS: 70450; 80048; 81001; 81025; 85025; 99282; A4216

== ENCOUNTER 2024-07-03 22:50 | Emergency (ER) | payer MEDICAID, SELFPAY ==
[2024-07-03 22:51] VITALS: BP 118/82; PULSE 102; RESP 15; TEMP 36.8; O2SAT 100; BMI 24.8
--- NOTE | 2024-07-03 23:29 | ED.VIS.BACK ---
HPI History of Present Illness Chief Complaint: Back Informant: patient Narrative Narrative: Worsening back pain waking this morning rating down to the left lateral thigh. No leg weakness. Symptoms worse with movement. No loss of bowel or bladder control. Symptoms similar a few weeks ago diagnosis sciatica she is put on muscle relaxers of Zanaflex symptoms improved at this time. She took her Zanaflex and Aleve at 1 PM's with no relief. No diabetes history. No history of gastric ulcers or kidney injury. Prior similar symptoms: Yes and With Prior Back Pain [facility] Medical History Chronic gastritis Former smoker depression History of anorexia nervosa Vitamin B12 deficiency Abdominal bloating Constipation History of marijuana use Generalized anxiety disorder Bipolar 1 disorder, depressed, moderate PTSD (post-traumatic stress disorder) Tobacco abuse Osteopenia GERD (gastroesophageal reflux disease) Asthma Migraines (~12/08/23) Alcohol withdrawal Desire for detoxification History of cocaine use Alcohol use disorder Home Medications ?Medication ?Instructions ?Recorded ?Last Taken ?Type lorazepam 0.5 mg tablet 0.5 mg PO QHS PRN anxiety #30 tabs 06/07/24 Unknown Rx prazosin 1 mg capsule 1 mg PO QHS nightmares #30 caps 06/07/24 Unknown Rx cholecalciferol (vitamin D3) 50 50 mcg PO DAILY 06/30/24 Unknown History mcg (2,000 unit) tablet pantoprazole 40 mg tablet,delayed 40 mg PO DAILY 06/30/24 Unknown History release polyethylene glycol 3350 17 17 g PO BID 06/30/24 Unknown History gram/dose oral powder vilazodone 20 mg tablet 20 mg PO DAILY 06/30/24 Unknown History naproxen 500 mg tablet 500 mg PO BID PRN #20 tabs 07/03/24 Unknown Rx orphenadrine citrate 100 mg 100 mg PO BID PRN muscle spasm #20 07/03/24 Unknown Rx tablet,extended release tabs prednisone 20 mg tablet 60 mg (3 x 20 mg) PO DAILY #12 07/03/24 Unknown Rx TABLETS Allergy/AdvReac Type Severity Reaction Status Date / Time No Known Allergies Allergy Verified 07/03/24 22:51 Family History Other Alcoholism Anxiety Arthritis Asthma COPD (chronic obstructive pulmonary disease) Depression High cholesterol Schizophrenia Surgical History History of surgery Social History Smoking Status: Current every day smoker tobacco type: cigarettes and e-cigarettes alcohol intake: current alcohol intake frequency: a few times a week Previous attempts at quittin details: 3 drinks per week substance use type: does not use ROS ROS ED Constitutional Constitutional ED: Denies chills, fever(s) or sweats ENT ENT ED: Denies sore throat Cardiovascular Cardiovascular: Denies chest pain, leg edema, palpitations or racing heartbeat Respiratory/Chest Respiratory/Chest: Denies cough, dyspnea or dyspnea on exertion Gastrointestinal Gastrointestinal: Denies abdominal pain, diarrhea, nausea or vomiting Genitourinary Genitourinary ED: Denies dysuria, hematuria or urinary frequency Musculoskeletal Musculoskeletal: Reports back pain; Denies extremity pain or neck pain Integumentary Denies rash or wounds Neurologic Neurologic: Denies headache(s), paresthesias or weakness EXAM Physical Exam Const Vital Signs: 07/03/24 22:51 07/03/24 23:40 Temperature 98.3 F 98.1 F Temperature Source Oral Pulse Rate 102 H 65 Respiratory Rate 15 18 Blood Pressure 118/82 H 119/78 Blood Pressure Mean 94 91 Pulse Ox 100 99 Oxygen Delivery Method Room Air Positive well nourished and well developed General Appearance ED: well developed and NAD HEENT Reports moist mucous membranes normocephalic and atraumatic Eyes General Eye ED: Yes normal appearance of both eyes Neck full ROM Chest Wall Chest: Negative for tenderness Resp normal respiratory effort and normal air movement Effort and Inspection: symmetric chest movement; Negative for respiratory distress Cardio regular rate, regular rhythm and no murmurs Peripheral Pulses: pulses 2+ throughout GI normal to inspection, nondistended, normoactive bowel sounds and non-tender Palpation: Negative for guarding or rebound tenderness present Back/Spine Back/Spine Narrative: No midline tenderness left paralumbar tenderness reproducible. Straight leg test negative. 1+ patellar reflex bilaterally. Extremity normal to inspection General Extremety ED: Negative for edema or tenderness General Extremity: Negative for edema Neuro oriented x3 and no sensory deficits noted Sensorium / Orientation: awake and alert Skin no rashes or lesions noted and no wounds MDM MDM MDM Narrative Medical decision making narrative: Interventions / MDM: Differential diagnosis: Sciatica, lumbar strain Diagnosis considered but do not suspect: No cauda equina symptoms My EKG interpretation: N/A Imaging independently reviewed and interpreted by myself: N/A External documents reviewed: N/A Test considered but not ordered:N/A ED course: Patient sciatica symptoms with lumbar strain. No cauda equina symptoms. I discussed conservative treatment with the patient at this time. She had no relief with Zanaflex that was taken 10 hours ago. Will give IM Toradol and Norflex. Will add prednisone. Will write for prescription of naproxen and Norflex along with prednisone. 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 She has had no formal diagnosis. Told patient discussed with her physicians to potentially add on therapy to her back. She will follow-up as an outpatient. All questions were answered. Re-evaluation: stable Disposition discussed with patient/family/significant other: Patient Case discussed with consulting clinician: N/A This note was generated with [employer] dictation software. It may contain incorrect words, spelling, and punctuation that were not noted in checking the note before signing. Discharge Plan Triage Chief Complaint: Back ED Provider: Roly Abarca Dx/Rx/DC Orders Clinical Impression: Sciatica of left side, Back pain Instructions: ED Sciatica Prescriptions: New prednisone 20 mg tablet 60 mg PO DAILY Qty: 12 0RF naproxen 500 mg tablet 500 mg PO BID PRN Qty: 20 0RF orphenadrine citrate 100 mg tablet extended release 100 mg PO BID PRN (Reason: muscle spasm) Qty: 20 0RF No Action lorazepam 0.5 mg tablet 0.5 mg PO QHS PRN (Reason: anxiety) Qty: 30 0RF prazosin 1 mg capsule 1 mg PO QHS Qty: 30 1RF pantoprazole 40 mg tablet,delayed release (DR/EC) 40 mg PO DAILY polyethylene glycol 3350 17 gram/dose powder 17 g PO BID cholecalciferol (vitamin D3) 50 mcg (2,000 unit) tablet 50 mcg PO DAILY vilazodone 20 mg tablet 20 mg PO DAILY Primary Care Provider: Wu Herrera Referrals: Wu Herrera MD [Primary Care Provider] - 1 Week Activity Restrictions/Additional Instructions: Hold your Zanaflex and Aleve. Use prescription medicines as prescribed. Discussed with your doctor with your physical therapy to add on treatments for your lower back. Print Language: Ethiopian Disposition Disposition: Home, Self Care Discharge Date/Time: 07/03/24 23:58
[2024-07-03] MEDS: predniSONE 20 MG Tablet 60 MG PO (23:36)
[2024-07-03] MEDS: Orphenadrine 60 MG/2 ML Ampul IM (23:36)
[2024-07-03] MEDS: Ketorolac 30 MG/ML Syringe IM (23:36)
[2024-07-03 23:40] VITALS: BP 119/78; PULSE 65; RESP 18; TEMP 36.7; O2SAT 99
== END 2024-07-03 23:58 | disposition home or self-care (01) ==
LOC: ED 23:35
PROVIDERS: Emergency Provider Emergency Medicine; PCP Family Medicine; Visit Provider Emergency Medicine
DX: M54.32 Sciatica, left side (principal); M54.9 Dorsalgia, unspecified; F17.210 Nicotine dependence, cigarettes, uncomplicated; F17.290 Nicotine dependence, other tobacco product, uncomplicated
CPT/HCPCS: 96372; 99282

== ENCOUNTER 2024-08-30 19:17 | Emergency (ER) | payer MEDICAID, SELFPAY ==
[2024-08-30 19:20] VITALS: BP 117/73; PULSE 80; RESP 18; TEMP 36.4; O2SAT 100; BMI 24.4
[2024-08-30 21:39] VITALS: BP 118/66; PULSE 58; RESP 15; TEMP 36.6; O2SAT 99
--- NOTE | 2024-08-30 22:45 | US_ITS ---
PROCEDURE: TRANSVAGINAL NON- REASON FOR EXAM: 23-year-old female, long menstrual cycles with cramps. TECHNIQUE: Transvaginal pelvic ultrasound COMPARISON: Pelvic ultrasound 12/16/2022. FINDINGS: Measurements: Uterus: 6.4 x 2.7 x 3.8 with a volume of 33.7 mL Endometrial Thickness: 0.3 cm Right Ovary: 4.2 x 1.9 x 1.6 cm with a volume of 6.4 mL. Left Ovary: 1.7 x 2.7 x 4.1 cm with a volume of 9.6 mL. Uterus: Anteverted. Normal contour and myometrial echotexture. Endometrium: Normal echotexture. Right ovary: Normal size and echotexture. Left ovary: Normal size and echotexture. Other adnexal findings: None. Cul-de-sac: No free intraperitoneal fluid identified. No tenderness. US/Transvaginal Non- IMPRESSION: NORMAL TRANSVAGINAL PELVIC ULTRASOUND. Reading Location: [id number]
[2024-08-30 23:00] VITALS: BP 102/59; PULSE 79; RESP 16; O2SAT 100
[2024-08-30 23:17] LABS: Absolute Lymphocyte Count 3.04 X10^3/uL (0.83-4.51); Absolute Neutrophil Count 3.5 X10^3/uL (2.0-7.7); Basophil# 0.06 X10^3/uL; Basophil% 0.8 % (0-1); Eosinophil# 0.12 X10^3/uL; Eosinophils% 1.7 % (0-5); Hematocrit 47.6 % (37-47); Hemoglobin 15.6 g/dL (12.0-15.0); Lymphocyte # 3.04 X10^3/ul (0.83-4.51); Lymphocyte % 41.9 % (19-41); Mean Corp Hgb Conc 32.8 g/dL (32-36); Mean Corpuscular Volume 97.5 fL (81-99); Mean Platelet Vol. 10.9 fl (6.2-12.0); Monocyte# 0.52 X10^3/uL; Monocyte% 7.2 % (0-10); NRBC Flagged by Analyzer 0 % (0-5); Neutrophil # 3.51 X10^3/uL (2.7-7.7); Neutrophil % 48.3 % (47-70); Platelet Count 177 K/mm3 (150-450); RBC Distribution Width CV 12.4 % (11.6-14.6); RBC Distribution Width SD 44.3 fl (35.1-43.9); Red Blood Count 4.88 M/mm3 (4.2-5.4); White Blood Count 7.3 K/mm3 (4.4-11.0)
[2024-08-30 23:28] LABS: Internal QC Validated? YES +Cl - CLEAR BKGD; Pregnancy, Serum, hCG Quali. NEGATIVE Negative
[2024-08-30] MEDS: 0.9% Normal Saline (1000mL) 1,000 ML 999 ML IV (23:35)
[2024-08-30 23:54] LABS: Anion Gap 7 (5-15); BUN 7 mg/dL (7-18); BUN/Creat Ratio 10.8 RATIO (10-20); Calcium,Total 9.3 mg/dL (8.5-10.1); Chloride 112 mmol/L (98-107); Creatinine, Serum 0.65 mg/dL (0.55-1.02); EST Glomerular Filtration Rate 120 mL/min (>60); Est Glom Filt Rate - Afr Amer 145 mL/min (>60); Glucose 80 mg/dL (74-106); Potassium 4.6 mmol/L (3.5-5.1); Sodium Level 136 mmol/L (136-145)
--- NOTE | 2024-08-31 00:11 | EDS_ITS ---
HPI History of Present Illness Chief Complaint: Hypotension Informant: patient Narrative Narrative: Patient is a 23-year-old female with bipolar disorder and PTSD who states she has been having menstrual bleeding daily since the end of July. She denies any concern for or STD. She denies any history of bleeding disorder or blood thinner use. She states she was seen at her doctor yesterday and her blood pressure was borderline low and there was concern that she may be anemic based on her recurrent bleeding and therefore she was sent to the hospital for evaluation [facility] Medical History Chronic gastritis Former smoker depression History of anorexia nervosa Vitamin B12 deficiency Abdominal bloating Constipation History of marijuana use Generalized anxiety disorder Bipolar 1 disorder, depressed, moderate PTSD (post-traumatic stress disorder) Tobacco abuse Osteopenia GERD (gastroesophageal reflux disease) Asthma Migraines (~12/08/23) Alcohol withdrawal Desire for detoxification History of cocaine use Alcohol use disorder Home Medications ?Medication ?Instructions ?Recorded ?Last Taken ?Type pantoprazole 40 mg tablet,delayed 40 mg PO DAILY 06/30 Unknown History release polyethylene glycol 3350 17 17 g PO BID 06/30/24 Unkno wn History gram/dose oral powder naproxen 500 mg tablet 500 mg PO BID PRN #20 tabs 1 09/03/23 Unknown Rx orphenadrine citrate 100 mg 100 mg PO BID PRN muscle s pasm #20 07/03/24 Unknown Rx tablet,extended release tabs lorazepam 0.5 mg tablet 0.5 mg PO QHS PRN anxiety #3 0 tabs 07/15/24 Unknown Rx prazosin 1 mg capsule 1 mg PO QHS nightmares #30 c aps 07/26/24 Unknown Rx Allergy/AdvReac Type Severity Reaction Status Date / Time Quinolones Allergy PT UNSURE Verified 08/30/24 19:20 OF REACTION Family History Other Alcoholism Anxiety Arthritis Asthma COPD (chronic obstructive pulmonary disease) Depression High cholesterol Schizophrenia Surgical History History of surgery Social History Smoking Status: Current every day smoker tobacco type: cigarettes and e- cigarettes alcohol intake: current alcohol intake frequency: a few times a week Previous attempts at quittin details: 3 drinks per week substance use type: does not use ROS ROS ED Constitutional Constitutional ED: Denies chills or fever(s) Eyes Eyes: Denies blurry vision or change in vision ENT ENT ED: Denies sore throat Cardiovascular Cardiovascular: Denies chest pain Respiratory/Chest Respiratory/Chest: Denies cough or dyspnea Gastrointestinal Gastrointestinal: Denies abdominal pain, diarrhea, nausea or vomiting Genitourinary Genitourinary ED: Reports other Details: Positive vaginal bleeding ; Denies dysuria Musculoskeletal Musculoskeletal: Denies back pain Integumentary Denies rash Neurologic Neurologic: Reports weakness; Denies headache(s) Hematologic/Lymphatic Hematologic/Lymphatic: Denies easy bleeding or easy bruising EXAM Physical Exam Const Vital Signs: 08/30/24 19:20 08/30/24 21:39 08/30/24 22:08 Temperature 97.5 F L 97.9 F Temperature Source Temporal Oral Pulse Rate 80 58 L Respiratory Rate 18 15 Respiratory Effort Normal Respiratory Pattern Normal Blood Pressure 117/73 118/66 Blood Pressure Mean 87 83 Pulse Ox 100 99 Oxygen Delivery Method Room Air Room Air 08/30/24 23:00 Temperature Temperature Source Pulse Rate 79 Respiratory Rate 16 Respiratory Effort Respiratory Pattern Blood Pressure 102/59 L Blood Pressure Mean 73 Pulse Ox 100 Oxygen Delivery Method Room Air Positive well nourished and well developed General Appearance ED: well developed; Negative for pallor HEENT Reports moist mucous membranes Eyes PERRL and EOMs intact bilaterally General Eye ED: Negative for pale conjunctiva or scleral icterus Neck supple Neck Narrative: No nuchal rigidity or meningeal signs Resp normal respiratory effort and clear to auscultation bilaterally Cardio regular rate and regular rhythm Rate: other Other Details: Heart is regular rate and rhythm without murmurs rubs or gallops Radial and carotid pulses are equal and symmetric GI normal to inspection, nondistended, normoactive bowel sounds, non-tender, non- distended and no masses GI Narrative: No voluntary guarding or rigidity or pulsatile mass Auscultation: normoactive bowel sounds Palpation: soft Narrative: Patient deferred Back/Spine no CVA tenderness Extremity normal to inspection Neuro oriented x3, CN's II-XII intact bilaterally and no sensory deficits noted Sensorium / Orientation: alert Motor Exam: strength 5/5 throughout Psych mental status grossly normal Skin no rashes or lesions noted Skin Narrative: Capillary refills less than 3 seconds General Skin Exam: Negative for jaundice or pallor MDM MDM MDM Narrative Medical decision making narrative: Patient presented to the ER with stable vitals but reported prolonged vaginal bleeding with a low blood pressure reading therefore there is concern for acute blood loss anemia. There is also concern for potentially complication. She denied any concern for STD or UTI. Therefore this time I felt only need for basic blood work with test and transvaginal ultrasound to assess for acute blood loss anemia or thrombocytopenia or po tential structural abnormality with a pelvic ultrasound. Blood work revealed stable labs without findings concerning for anemia or thrombocytopenia. Ultrasound revealed no signs of structural abnormality such as a hemorrhagic cyst or fibroid or mass. Therefore at this time as patient is not need of a blood transfusion she is not having a complication she is not thrombocytopenic and there is no structural abnormality causing her symptoms there is no need for further evaluation in the ER and she is otherwise safe for discharge History & Record Review Discussion w/independent historian: Patient Lab Data Attestation: I reviewed the patient's lab results. Labs: Laboratory Results - last 24 hr 08/30/24 23:11 WBC 7.3 RBC 4.88 Hgb 15.6 H Hct 47.6 H MCV 97.5 MCH 32.0 MCHC 32.8 RDW Std Deviation 44.3 H RDW Coeff of Reggie 12.4 Plt Count 177 MPV 10.9 Immature Gran % (Auto) 0.100 Neut % (Auto) 48.3 Lymph % (Auto) 41.9 H Dunn % (Auto) 7.2 Eos % (Auto) 1.7 Baso % (Auto) 0.8 Absolute Neuts (auto) 3.5 Absolute Lymphs (auto) 3.04 Nucleated RBC % 0 Sodium 136 Potassium 4.6 Chloride 112 H Carbon Dioxide 17.0 L Anion Gap 7 BUN 7 Creatinine 0.65 Estim Creat Clear Calc 116.30 Est GFR (MDRD) Af Amer 145 Est GFR (MDRD) Non-Af 120 BUN/Creatinine Ratio 10.8 Glucose 80 Calcium 9.3 Serum , Qual NEGATIVE Radiography Diagnostic Testing: Clinical Impression(s) from Imaging Studies Transvaginal US 08/30/24 22:45 IMPRESSION: NORMAL TRANSVAGINAL PELVIC ULTRASOUND. Reading Location: [facility] Discharge Plan Triage Chief Complaint: Hypotension ED Provider: Gustavo Rosado Dx/Rx/DC Orders Clinical Impression: DUB (dysfunctional uterine bleeding), Bipolar 1 disorder, depressed, severe, PTSD (post-traumatic stress disorder) Instructions: ED Dysfunctional Uterine Bleeding, ED Low Blood Pressure, All Causes Prescriptions: No Action naproxen 500 mg tablet 500 mg PO BID PRN Qty: 20 0RF orphenadrine citrate 100 mg tablet extended release 100 mg PO BID PRN (Reason: muscle spasm) Qty: 20 0RF pantoprazole 40 mg tablet,delayed release (DR/EC) 40 mg PO DAILY polyethylene glycol 3350 17 gram/dose powder 17 g PO BID lorazepam 0.5 mg tablet 0.5 mg PO QHS PRN (Reason: anxiety) Qty: 30 0RF prazosin 1 mg capsule 1 mg PO QHS Qty: 30 1RF Primary Care Provider: Wu Herrera Referrals: Wu Herrera MD [Primary Care Provider] - Activity Restrictions/Additional Instructions: Your workup today showed no signs of low blood volume or derangement to your kidney function or electrolyte. There was no anatomical reason for the uterine bleeding such as an ovarian cyst or retained products of conception. Follow-up with your family doctor and/or [employer] for repeat evaluation and return to the ER should you have any further concerns Print Language: Frisian Disposition Disposition: Home, Self Care Discharge Date/Time: 08/31/24 00:37
[2024-08-31 00:17] LABS: Partial Thromboplast Time 28.4 Seconds (24.1-36.2); Prothrombin Time (Protime)PT. 13.7 SECONDS (11.7-14.9)
[2024-08-31 00:32] VITALS: BP 113/67; PULSE 60; RESP 12; TEMP 37.2; O2SAT 100
== END 2024-08-31 00:37 | disposition home or self-care (01) ==
PROVIDERS: Emergency Provider Emergency Medicine; PCP Family Medicine; Visit Provider Emergency Medicine
DX: N93.8 Other specified abnormal uterine and vaginal bleeding (principal); F31.9 Bipolar disorder, unspecified; F43.10 Post-traumatic stress disorder, unspecified; F17.210 Nicotine dependence, cigarettes, uncomplicated; F17.290 Nicotine dependence, other tobacco product, uncomplicated
CPT/HCPCS: 76830; 80048; 84703; 85025; 85610; 85730; 96360; 99285

== ENCOUNTER 2024-09-22 18:43 | Emergency (ER) | payer MEDICAID, SELFPAY ==
[2024-09-22 18:44] VITALS: BP 120/55; PULSE 78; RESP 15; TEMP 36.7; O2SAT 100; BMI 23.8
--- NOTE | 2024-09-22 19:59 | EDS_ITS ---
HPI History of Present Illness Chief Complaint: Back PFSH PFS Medical History Chronic gastritis Former smoker depression History of anorexia nervosa Vitamin B12 deficiency Abdominal bloating Constipation History of marijuana use Generalized anxiety disorder Bipolar 1 disorder, depressed, moderate PTSD (post-traumatic stress disorder) Tobacco abuse Osteopenia GERD (gastroesophageal reflux disease) Asthma Migraines (~12/08/23) Alcohol withdrawal Desire for detoxification History of cocaine use Alcohol use disorder Home Medications ?Medication ?Instructions ?Recorded ?Last Taken ?Type duloxetine 20 mg capsule,delayed 20 mg PO BID 09/05/24 Unknown History release (Cymbalta) norethindrone acetate 5 mg tablet 5 mg PO QDAY 5 Unknown History Compression Stockings Knee High #1 ea 09/06/24 Unknown Rx methocarbamol 500 mg tablet 500 mg PO Q8H PRN pain (sc dianne 09/22/24 Unknown Rx score 7-10) #20 tabs prednisone 20 mg tablet 20 mg PO DAILY #5 tabs 09/22 Unknown Rx Allergy/AdvReac Type Severity Reaction Status Date / Time Quinolones Allergy PT UNSURE Verified 09/22/24 18:47 OF REACTION Family History Other Alcoholism Anxiety Arthritis Asthma COPD (chronic obstructive pulmonary disease) Depression High cholesterol Schizophrenia Surgical History History of surgery Social History (Updated 09/05/24 @ 15:51 by Wade Wilcox MEDICAL ADMINISTRATIVE, MEDICAL ADMINISTRATIVE-C) Smoking Status: Current every day smoker tobacco type: e-cigarettes alcohol intake: current alcohol intake frequency: a few times a week Previous attempts at quittin details: 3 drinks per week substance use type: does not use EXAM Physical Exam Const Vital Signs: 09/22/24 18:44 Temperature 98.1 F Temperature Source Temporal Pulse Rate 78 Respiratory Rate 15 Blood Pressure 120/55 L Blood Pressure Mean 76 Pulse Ox 100 Oxygen Delivery Method Room Air MDM MDM MDM Narrative Medical decision making narrative: HISTORY OF PRESENT ILLNESS: 23-year-old female presents with back pain. She notes chronic back pain. No she follows with PT. No she has missed PT recently she thinks this has made her back pain worse. Denies falls or trauma. Denies IV drug use. Notes pain is in her lower back. She also notes urinary symptoms such as burning but denies frequency. Patient denies any saddle anesthesia, urinary tension, bowel or bladder incontinence, lower extremity weakness, fever or IV drug use, no recent spinal manipulation or surgery, no recent urinary catheterization. REVIEW OF SYSTEMS: All other systems reviewed and are negative except as noted in the history of present illness. At least 10 review of systems reviewed and are negative except as noted in history of present illness. PHYSICAL EXAM: Nursing triage notes reviewed, Vital signs reviewed Constitutional: please see mdm HENT: MMM Eyes: Pupils equal round and reactive to light, Extraocular muscles intact Neck: No stridor, no JVD, full neck ROM Lungs: Clear to auscultation, No wheezing or rales. No increased work of breathing, no conversational dyspnea, no accessory muscle use, no nasal flaring. No respiratory distress noted Heart: Regular rate and rhythm, No murmurs, No rubs and No gallops, 2+ distal pulses (radial, femoral, posterior tibial) in all extremities Abdomen: Soft, there is no tenderness, rigidity, rebound or guarding, no obvious peritoneal signs, no palpable pulsatile abdominal masses, no auscultated abdominal bruit : No CVAT Extremities: No edema Back: No midline step-offs or deformities Neuro: Intact sensation L1-S1 dermatomal distributions. Intact 5/5 strength in hip flexion (T12-L3). Knee extension (L2-L4). Ankle dorsiflexion (L4-L5). Ankle plantar flexion (S1). Great toe extension (L5). 2+ patellar and Achilles DTRs. Skin: No rash or lesions noted MEDICAL DECISION MAKING: Chief Complaint: Back pain External records reviewed: Reviewed prior imaging studies Factors affecting care: Alcohol dependence, PTSD, polysubstance abuse Social determinants of health: No IV drug use, history of mental health disorder History obtained from others: none Consults: none ALL IMAGES (IF OBTAINED) HAVE BEEN PERSONALLY REVIEWED AND INTERPRETED BY MYSELF. Urinalysis without signs of infection. [facility] Narrative: The patient was initially hemodynamically stable, afebrile and nontoxic- appearing. Exam without focal neurologic deficits. No signs of obvious trauma step-offs deformities to the lumbar spine I considered the following differential diagnosis: Musculoskeletal back pain, space-occupying lesion of the spinal (epidural abscess, epidural hematoma), cauda equina, conus medullaris, fracture dislocation, AAA, nephrolithiasis, pyelonephritis, aortic dissection The patient presented complaining of back pain. There was no history of recent fall or trauma. Checked urinalysis given patient report of dysuria which may be contributory back pain. Urinalysis showed no evidence of UTI. There is also no evidence to suggest vascular pathology such as AAA dissection. No fevers or other evidence to suspect infectious processes, abscess, osteomyelitis etc. The patient?s neurological exam is normal with normal motor and sensory. There is no saddle paresthesias reported and no bowel or bladder incontinence or retention. I suspect the pain is mechanical in nature. Clinical suspicion, plan of care and management was discussed with the patient. The patient was instructed to follow up with their health care provider. The patient was also instructed to return if the pain worsened, changed, or developed weakness or bowel or bladder trouble. Will give steroids and a prescription for muscle relaxers. The patient agreed with plan. I completed a structured, evidence-based clinical evaluation to screen for acute non-traumatic spinal emergencies. The patient has a normal detailed neurologic exam and red flag historical factors were negative. The evidence indicates that the patient is very low risk for an acute spinal emergency and this is consistent with my clinical intuition. The risk of further workup is higher than the likelihood of the patient having a spinal epidural abscess or other dangerous emergency spinal condition. It is, therefore, in the patient?s best interest not to do additional emergent testing at this time. Shared Decision-Making I have discussed with the patient my clinical impression and the result of an evidence-based clinical evaluation to screen for spinal epidural abscess and other spinal emergencies, as well as the risk of further testing and hospitalization. The evidence shows that the risk for an acute spinal emergency is less than 1%. Although the risk of an acute spinal emergency has not been completely eliminated, the risks of further testing likely exceed any potential benefit, and the patient agrees with not pursuing further emergent evaluation for causes of back pain at this time. The patient and/or family, caregivers express understanding. The patient and/or family, caregivers agrees with the plan. Total critical care time today provided was at least 0 minutes. This excludes separately billable procedures. Critical care time (if documented) is secondary to the patient having high probability of clinically significant/life threatening deterioration in the patient's condition which required my urgent intervention. Impression: 1. Acute on chronic back pain Disposition: Discharge home Ulises Garcia DO Lab Data Labs: Laboratory Results - last 24 hr 09/22/24 21:06 Urine Color Yellow Urine Clarity Sl. Cloudy Urine pH 7.0 Ur Specific [place] 1.010 Urine Protein Negative Urine Glucose (UA) Normal Urine Ketones Negative Urine Occult Blood 50 H Urine Nitrite Negative Urine Bilirubin Negative Urine Urobilinogen Normal Ur Leukocyte Esterase 100 H Discharge Plan Triage Chief Complaint: Back ED Provider: Ulises Garcia Dx/Rx/DC Orders Clinical Impression: Back pain Instructions: ED Back Pain (Acute or Chronic) Prescriptions: New methocarbamol 500 mg tablet 500 mg PO Q8H PRN (Reason: pain (scale score 7-10)) Qty: 20 0RF prednisone 20 mg tablet 20 mg PO DAILY Qty: 5 0RF No Action duloxetine [Cymbalta] 20 mg capsule,delayed release(DR/EC) 20 mg PO BID norethindrone acetate 5 mg tablet 5 mg PO QDAY (DME) Compression Stockings Knee High 20-30 mm HG See Rx Instructions .Route .MEDSUPPLY Qty: 1 0RF Rx Instructions: As directed Primary Care Provider: Wu Herrera Referrals: Wu Herrera MD [Primary Care Provider] - Activity Restrictions/Additional Instructions: Thank you for trusting us with your care today! Your urine was negative for signs of infection. Your back pain is likely not associated with an acute spinal emergency. Please take Tylenol (2 pills, 650 mg), ibuprofen (2 pills, 400 mg) every 6 hours as needed for pain and fever control. Please take prednisone as prescribed. Please take Robaxin (muscle relaxer) as prescribed. Please return to the emergency department if your symptoms change or worsen. Specifically develop bowel or bladder incontinence, urinary retention, inability to feel your private area, loss of movement or sensation in your legs. Please follow with your primary care physician for further outpatient evaluation and management. Print Language: Surinamese Disposition Disposition: Home, Self Care
[2024-09-22 21:09] LABS: Mucous, Urine 0 SEEN /hpf (<or=2+)
[2024-09-22 21:14] LABS: Color, Urine Yellow (Yellow); Glucose, Dipstick Normal (Normal); Ketone-Dipstick Negative (Negative); Leukocyte Esterase-Dipstick 100 /ul (Negative); Nitrite-Dipstick Negative (Negative); Occult Blood-Urine 50 /ul (Negative); Protein-Dipstick Negative (Negative); Urine Bilirubin Dipstick Negative (Negative); Urine Clarity Sl. Cloudy (Clear); Urine Urobilinogen Normal (Normal)
[2024-09-22] MEDS: Acetaminophen 325 MG Tablet 650 MG PO (21:17)
[2024-09-22] MEDS: predniSONE 20 MG Tablet 40 MG PO (21:18)
[2024-09-22] MEDS: Naproxen 250 MG Tablet PO (21:18)
[2024-09-22] MEDS: Methocarbamol 500 MG Tablet 1000 MG PO (21:19)
[2024-09-22 22:08] LABS: Bacteria 1+ /hpf (None Seen); Squamous Epithelial Cells - UA 0-5 SEEN /hpf (5-10); White Blood Cells 0-5 SEEN /hpf (0-5)
[2024-09-22 22:09] LABS: Red Blood Cells-Urine 0 SEEN /hpf (0-5)
[2024-09-22 22:16] VITALS: BP 121/75; PULSE 75; RESP 18; TEMP 36.3; O2SAT 98
== END 2024-09-22 22:21 | disposition home or self-care (01) ==
PROVIDERS: Emergency Provider Emergency Medicine; PCP Family Medicine; Visit Provider Emergency Medicine
DX: M54.9 Dorsalgia, unspecified (principal); F31.9 Bipolar disorder, unspecified; G89.29 Other chronic pain; F17.290 Nicotine dependence, other tobacco product, uncomplicated
CPT/HCPCS: 81001; 99283

== ENCOUNTER 2024-12-30 23:21 | Emergency (ER) | payer MEDICAID, SELFPAY ==
[2024-12-30 23:22] VITALS: BP 110/68; PULSE 79; RESP 18; TEMP 36.1; O2SAT 100; BMI 22.8
--- OUTSIDE RECORDS SUMMARY | 2024-12-30 23:58 | XMS RPT_ITS | CCD ---
Author Organization [facility] CliniSyvt Care Team Providers Care Press Box Custodian Name Role Phone NO PRIMARY CARE, MD Unavailable Unavailable LONG BOLTON Unavailable Unavailable MARINO GAVIN Unavailable Unavailable REFERRED, SELF Unavailable Unavailable NO PRIMARY CARE, Unavailable Unavailable NOLBERTO ARGUETA Unavailable Unavaila spencer NO PRIMARY CARE, Unavailable Unavailable ELOISE GOOD Unavailable Unavailable BRANDIE, CHACHA E Unavailable Unavailable MAYA, TONNY C Unavailable Unavailable EMMA CRALI Unavailable Unavailable CLAUDIA TAYLOR Unavailable Unavailable MAYA, TONNY C Unavailable Unavailable REFERRED, SELF Unavailable Unavailable NEELA, RAMIRO B Unavailable Unavailable MAYA, TONNY C Unavailable Unavailable MAYA, TONNY C Unavailable Unavailable MAYA, TONNY C Unavailable Unavailable CAIO CRYSTAL N Unavailable Unavailable MOHAMED, RIHAB Unavailable Unavailable SHRUTHI PEREZ E Unavailable Unavailable REFERRED, SELF Unavailable Unavailable MAYA, TONNY C Unavailable Unavailable MOHAMED, RIHAB Unavailable Unavailable MAYA, TONNY C Unavailable Unavailable BORISHCHAK, YU Unavailable Unavailable BRANDIE, CHACHA E Unavailable Unavailable NEELA, RAMIRO B Unavailable Unavailable MAYA, TONNY C Unavailable Unavailable MAYA, TONNY C Unavailable Unavailable Unavailable Primary Care Provider Unavailabl WU Hoyos MD Primary Care Physician [phone] Free, Text Entry Unavailable Unavailable Joseph Hester Unavailable Unavailable Wu Herrera MD Primary Care Provider WU HERRERA MD Primary Care Physician Wu Herrera MD Primary Care Provider Dr. GRISEL KING Attending Unavailabl e Pending, Provider Primary Care Unavailable Pending, Provider Primary Care Unavailable La Nena, Dr. Perez Attending Unavailabl e Pending, Provider Primary Care Unavailable Dr. Ana Deutsch Attending Unavailabl e Dr. GRISEL KING Attending Unavailabl e Pending, Provider Primary Care Unavailable Dr. Ana Deutsch Attending Unavailabl e Pending, Provider Primary Care Unavailable Sharon JO, Wu Dumont Primary Care Provider Sharon JO, Wu A Primary Care Provider Sharon JO, Wu Dumont Primary Care Provider CHRISTINE WELSH Admitting Unavailable CHRISTINE WELSH Attending Unavailable SCARLET HERRERAREY A Primary Care Unavailable Sharon JO, Wu Dumont Primary Care Provider NUPUR QUIROS Admitting Unavailable NUPUR QUIROS Attending Unavailable SCARLET HERRERAREY A Primary Care Unavailable Generic Provider MD, No Assigned Pcp Primary Car e Provider Unavailable CHAPO WRIGHT Attending Unavailable GENERIC PROVIDER, NO ASSIGNED PCP Primary Care Unavailable Yovana PROVIDER NETWORK ANALYST.OIL WELL CABLE TOOL OPERATOR, Frankie Unavailable Roca PA-C, Dee Unavailable Knoble PROVIDER NETWORK ANALYST.OIL WELL CABLE TOOL OPERATOR, Frankie Unavailable Roca PA-C, Dee Unavailable Knoble PROVIDER NETWORK ANALYST.OIL WELL CABLE TOOL OPERATOR, Frankie Unavailable Roca PA-C, Dee Unavailable Sharon, Wu Primary Care Unavailable Hakeem Pate Attending Unavailable Gustavo Rosado Attending Unavailable Sharon, Wu Primary Care Unavailable RadhaAnayelion Attending Unavailable Sharon, Wu Primary Care Unavailable Yara CATHODE BUILDER, Pari Referring Unavailable Yara CATHODE BUILDER, Pari Attending Unavailable Sharon, Wu Primary Care Unavailable Sharon, Wu Primary Care Unavailable Vincent Peterson Attending Unavailable Sharon, Wu Primary Care Unavailable Hakeem Pate Attending Unavailable Hakeem Pate Attending Unavailable Sharon, Wu Primary Care Unavailable Wade Wilcox NP Attending Unavailable Sharon, Wu Primary Care Unavailable Sharon, Wu Referring Unavailable Too Bob Attending Unavailable Sharon, Wu Primary Care Unavailable Radha, Ulises Attending Unavailable Sharon, Wu Primary Care Unavailable Roly Aabrca Attending Unavailable Sharon, Wu Primary Care Unavailable Federico Gautam Attending Unavailable Sharon, Wu Primary Care Unavailable Federico Gautam Attending Unavailable Sharon, Wu Primary Care Unavailable Provider, Ed Physician Attending Unavailab le Sharon, Wu Primary Care Unavailable Sharon, Wu Primary Care Unavailable Hakeem Pate Attending Unavailable Sharon, Wu Primary Care Unavailable Hakeem Pate Attending Unavailable Sharon, Wu Primary Care Unavailable Sharon, Wu Referring Unavailable Aarti Dudley NP Attending Unavailable Too Bob Attending Unavailable Sharon, Wu Primary Care Unavailable John De Anda Referring Unavailable John De Anda Attending Unavailable Sharon, Wu Primary Care Unavailable Sharon, Wu Primary Care Unavailable Luis Enrique PATEL, Aarti Referring Unavailable Aarti Dudley NP Attending Unavailable Sharon, Wu Primary Care Unavailable Hakeem Pate Attending Unavailable Hakeem Dailey Attending Unavailable Sharon, Wu Primary Care Unavailable Sharon, Wu Referring Unavailable Sharon, Wu Primary Care Unavailable Hakeem Pate Attending Unavailable Sharon, Wu Primary Care Unavailable Luis Enrique PATEL, Aarti Referring Unavailable Ruben Moffett Attending Unavailable Sharon, Wu Primary Care Unavailable Ruben Moffett Attending Unavailable Sharon, Wu Primary Care Unavailable Aarti Dudley NP Attending Unavailable Sharon, Wu Primary Care Unavailable Hakeem Pate Attending Unavailable PARI LIVINGSTON Attending Unavailable SHARON, WU A Primary Care Unavailable SHARON, WU A Primary Care Unavailable JUSTCARMEN Referring Unavailable SHARON, WU A Referring Unavailable SHARON, WU A Primary Care Unavailable SHARON, WU A Referring Unavailable SHARON, WU A Primary Care Unavailable SHARON, WU A Primary Care Unavailable FRANKIE VARELA Referring Unavailable SHARON, WU A Primary Care Unavailable OFELIA MERRITT Attending Unavailable SHARON, WU A Primary Care Unavailable SHARON, WU A Primary Care Unavailable LESLI SOLANO Attending Unavailable SHARON, WU A Primary Care Unavailable RICHARD SALAZAR Attending Unavailable SHRUTHI HANEY Referring Unavailable SHARON, WU A Primary Care Unavailable DAISY CHADWICK Attending Unavailable JUSTCARMEN Referring Unavailable SHARON, WU A Primary Care Unavailable Don'DAISY POSADA Attending Unavailable JUST CARMEN Referring Unavailable SHARON, WU A Primary Care Unavailable JUST, CARMEN Referring Unavailable SHARON, WU A Primary Care Unavailable Don'DAISY POSADA Attending Unavailable JUST, CARMEN Referring Unavailable SHARON, WU A Primary Care Unavailable SHRUTHI HANEY Referring Unavailable SHARON, WU A Primary Care Unavailable SHARON, WU A Referring Unavailable SHARON, WU A Primary Care Unavailable DEE ROCA Referring Unavailable SHARON, WU A Primary Care Unavailable SIRI ESPITIA Referring Unavailable SHARON, WU A Primary Care Unavailable SHARON, WU A Primary Care Unavailable SMILEY CARRILLO Attending Unavail able SHARON, WU A Primary Care Unavailable FRANKIE VARELA Attending Unavailable SHARON, WU A Primary Care Unavailable CARMEN SIEGEL Attending Unavailable SHARON, WU A Referring Unavailable SHARON, WU A Primary Care Unavailable DAISY DIEGO Referring Unavailable SHARON, WU A Primary Care Unavailable DEE ROCA Referring Unavailable SHARON, WU A Primary Care Unavailable DEE ROCA Attending Unavailable SHARON, WU A Primary Care Unavailable ZAMZAM, DEE Referring Unavailable SHARON, WU A Primary Care Unavailable DEE ROCA Referring Unavailable SHARON, WU A Primary Care Unavailable SHARON, WU A Attending Unavailable SHARON, WU A Primary Care Unavailable SHARON, WU A Primary Care Unavailable PARI LIVINGSTON Attending Unavailable SHARON, WU A Primary Care Unavailable SARA CONDON Referring Unavailable SHARON, WU A Primary Care Unavailable SARA CONDON Attending Unavailable SHARON, WU A Primary Care Unavailable SHARON, WU A Primary Care Unavailable SHRUTHI HANEY Referring Unavailable SHARON, WU A Primary Care Unavailable WU HOGAN Attending Unavailable OFELIA MERRITT Referring Unavailable SHARON, WU A Primary Care Unavailable LESLI SOLANO Referring Unavailable SHARON, WU A Primary Care Unavailable HALESLI BRUCE Referring Unavailable SHARON, WU A Primary Care Unavailable SHARON, WU A Referring Unavailable SHARON, WU A Primary Care Unavailable SHARON, WU A Referring Unavailable SHARON, WU A Primary Care Unavailable FRANKIE VARELA Attending Unavailable SHARON, WU A Primary Care Unavailable SHARON, WU A Primary Care Unavailable SHRUTHI HANEY Attending Unavailable SHARON, WU A Referring Unavailable SHARON, WU A Primary Care Unavailable SALMA PANDEY Referring Unavailable SHARON, WU A Primary Care Unavailable SHARON, WU A Primary Care Unavailable DAISY HILLIARD Attending Unavailable SHARON, WU A Primary Care Unavailable SHARON, WU A Primary Care Unavailable SHRUTHI HANEY Attending Unavailable SHARON, WU A Primary Care Unavailable SHARON, WU A Attending Unavailable SHARON, WU A Primary Care Unavailable NILAY MERRITTEN Referring Unavailable SHARON, WU A Primary Care Unavailable HAJANIS, LESLI Referring Unavailable SHARON, WU A Primary Care Unavailable HAJANIS, LESLI Attending Unavailable SHARON, WU A Primary Care Unavailable YARAPARI Clement Attending Unavailable YARA, PARI Referring Unavailable SHARON, WU A Primary Care Unavailable SHARON, WU A Attending Unavailable SHARON, WU A Primary Care Unavailable SHARON, WU A Primary Care Unavailable DEE ROCA Attending Unavailable SHARON, WU A Primary Care Unavailable SHARON, WU A Referring Unavailable SHARON, WU A Primary Care Unavailable HAJANIS, LESLI Attending Unavailable SHARON, WU A Primary Care Unavailable NILAY MERRITTEN Attending Unavailable SHARON, WU A Referring Unavailable SHARON, WU A Primary Care Unavailable SHARON, WU A Attending Unavailable SHARON, WU A Primary Care Unavailable SHARON, WU A Referring Unavailable SHARON, WU A Primary Care Unavailable SHARON, WU A Referring Unavailable SHARON, WU A Primary Care Unavailable SHARON, WU A Attending Unavailable SHARON, WU A Primary Care Unavailable DEE ROCA Referring Unavailable SHARON, WU A Primary Care Unavailable FRANKIE VARELA Referring Unavailable SHARON, WU A Primary Care Unavailable SHARON, WU A Attending Unavailable SHARON, WU A Primary Care Unavailable DEE ROCA Attending Unavailable SHARON, WU A Primary Care Unavailable SALMA APNDEY Attending Unavailable SHARON, WU A Primary Care Unavailable KNOBLE, FRANKIE Attending Unavailable SHARON, WU A Primary Care Unavailable HAJANIS, LESLI Attending Unavailable SHARON, WU A Primary Care Unavailable CLEMENT SHEEHAN Attending Unavailable SHARON, WU A Primary Care Unavailable Allergies Allergy Classification Reported Allergen(s) Allergy Type Date of Onset Reaction(s) Facility (20 sources) earings [Other] Propensity to adverse reactions 8 Other: See Comments [facility] Work Phone: (20 sources) Green Dye; Translations: [GREEN DYE] Drug Allergy 2 [facility] (20 sources) Contact Metal Agent; Translations: [CONTACT METAL AGENT] Propensity to adverse reactions to drug 3 Other: See Comments, [facility] Work Phone: (20 sources) Quinolones; Translations: [QUINOLONES] Propensity to adverse reactions to drug 5 Myalgia [facility] (1 source) Quinolones (Antibiotic) Drug allergy (disorder) 5 [facility] Medications Current Medications Medication Drug Class(es) Dates Sig (Normalized) Sig (Original) Acetaminophen (2 sources) Start: 04-02-2021 acetaminophen (TYLENOL) tablet 650 mg take 2 tablets by mo uth every six hours as needed Tylenol 500 mg oral tablet ; 2 tab(s) or ally every 6 hours, As Needed Quantity: 0 Refills: 0 Ordered: 21-Nov-2021 Temi Colbert Generic Substitution Allowed aluminum hydroxide 80 mg/ml / magnesium hydroxide 80 mg/ml / simethicone 8 mg/ml oral suspension (20 sources) Start: 09-11-2023 take 30 mL by mouth every six hours as needed aluminum & magnesium hydroxide-simethicone (MYLANTA MAXIMUM STRENGTH) 400-400-40 mg/5 mL suspension Take 30 mL by mouth every 6 hours as needed. 335 mL 09/11/2023 Active Comment on above: Take 30 mL by mouth every 6 hours as nee ded. amoxicillin 875 mg / clavulanate 125 mg oral tablet (3 sources) Penicillin-class Antibacterial Start: 03-19-2023 End: 03-26-2023 take 1 tablet by mouth twice daily amoxicillin-clavulanic acid (AUGMENTIN) 875-125 mg per tablet Indications: Bacterial sinusitis Take 1 tablet by mouth twice daily for 7 days. 14 tablet 0 03/19/2023 03/26/2023 Active Comment on above: Take 1 tablet by mouth twice daily for 7 days. aspirin 81 mg delayed release oral tablet (20 sources) Platelet Aggregation Inhibitor, Nonsteroidal Anti-inflammatory Drug Start: 05-19-2023 take 1 tablet by mouth once daily aspirin, enteric coated (ASPIRIN, ENTERIC COATED) 81 mg EC tablet Take 1 tablet by mouth once daily. START AT 12 WEEKS. 100 tablet 2 05/19/2023 Active Comment on above: Take 1 tablet by mouth once daily. START AT 12 WEEKS. Blood Pressure Monitor (BLOOD PRESSURE KIT) (20 sources) Start: 02-20-2022 Blood Pressure Monitor (BLOOD PRESSURE KIT) Indications: Syncope, unspecified syncope type , Hypotension, unspecified hypotension type 1 Each once daily. 1 Each 02/20/2022 Active Start: 02-20-2022 Blood Pressure Monitor (BLOOD PRESSURE KIT) Indications: Syncope, unspecified syncope type , Hypotension, unspecified hypotension type 1 Each once daily. 1 Each 0 02/20/2022 Active Start: 02-20-2022 End: 02-20-2022 Blood Pressure Monitor (BLOO D PRESSURE KIT) 1 Each once daily. 1 Each 0 02/20/2022 02/20/2022 Discontinued Comment on above: 1 Each once daily. cefadroxil 500 mg oral capsule (8 sources) Cephalosporin Antibacterial Start: End: take 1 capsule by mouth twice daily cefADROxil (DURICEF) 500 mg capsule Take 1 capsule by mouth two times a day for 10 days. 20 capsule 12/02/2024 12/12/2024 Active Start: 08-27-2024 End: 09-19-2024 take 1 capsule by mouth twice daily cefADROxil (DURICEF) 500 mg capsule Take 1 capsule by mouth two times a day. 20 capsule 08/27/2024 09/19/2024 Discontinued clindamycin 300 mg oral capsule (4 sources) Lincosamide Antibacterial Start: 08-15-2024 End: 08-22-2024 take 1 capsule by mouth twice daily clindamycin (CLEOCIN) 300 mg capsule Take 1 capsule by mouth two times a day for 7 days. 14 capsule 08/15/2024 08/22/2024 Active clotrimazole 10 mg/ml topical cream (5 sources) Azole Antifungal Start: 07-11-2024 End: 07-25-2024 clotrimazole (LOTRIMIN) 1 % cream Indications: Rash Apply to affected area two times a day for 14 days. 30 g 07/11/2024 07/25/2024 Active enteric contrast (will be provided with radiology test) (1 source) Start: 12-16-2024 End: 12-17-2024 Ethinyl Estradiol / Levonorgestrel (5 sources) Progestin, Estrogen, Progestin-containin g Intrauterine Device Start: 01-18-2022 ethinyl estradiol-levonor gestrel 20 mcg-100 mcg oral tablet 0 Refill(s) Start Date: 01/18/22 Status: Ordered Start: 01-03-2022 End: 02-20-2022 take 1 tablet by mouth once daily Levonorgestrel-Ethinyl Estrad (AVIANE) 0.1mg - 20mcg per tablet Take 1 tablet by mouth once daily. 28 tablet 0 01/03/2022 02/20/2022 Discontinued Start: 01-03-2022 take 1 tablet by yane th once daily Levonorgestrel-Ethinyl Estrad (AVIANE) 0.1mg - 20mcg per tablet Take 1 tablet by mouth once daily. 28 tablet 0 01/03/2022 Active Comment on above: Take 1 tablet by yane th once daily. etonogestrel 68 mg drug implant (20 sources) Progestin Start: 01-19-2024 End: 01-18-2027 etonogestrel (NEXPLANON) subdermal implant 68 mg Indications: Insertion of implantable subdermal contraceptive 1 Each by SUBDERMAL route as directed. 1 Each 01/19/2024 01/18/2027 Active End: 05-19-2023 etonogestrel (NEXPLANON) 68 mg impl subdermal implant 68 mg by SUBDERMAL route. January 2021 0 05/19/2023 Discontinued Comment on above: 68 mg by SUBDERMAL r oute. January 2021 fluconazole 150 mg oral tablet (1 source) Azole Antifungal Start: 2024 End: 2024 take 1 tablet by mouth once fluconazole (DIFLUCAN) 150 mg tablet Indications: Vaginal yeast infection Take 1 tablet by mouth one time only for 1 dose. 1 tablet 10/18/2024 10/18/2024 Active folic acid 1 mg oral tablet (20 sources) Start: 2022 take 1 tablet by mouth once daily folic acid 1 mg tablet Take 1 tablet by mouth once daily. 30 tablet 2 06/01/2023 Active Comment on above: Take 1 tablet by yane th once daily. hyoscyamine sulfate 0.125 mg sublingual tablet (20 sources) Start: 2023 take 1 tablet under the tongue every four hours as needed hyoscyamine sublingual (LEVSIN/SL) 0.125 mg Indications: RUQ pain Dissolve 1 tablet under the tongue every 4 hours as needed (for abdominal pain). 60 tablet 2 03/17/2024 Active iv contrast (will be provided with radiology test) (1 source) Start: 2024 End: 2024 methocarbamol 500 mg oral tablet (5 sources) Muscle Relaxant methocarbamol (R OBAXIN) 500 mg tablet Take 500 mg by mouth as needed (from [place]). Active methylPREDNISolone (3 sources) Corticosteroid Start: 2024 End: 2024 methylPREDNISolone (MEDROL DOSE-PACK) 4 mg Dose-Pack Indications: Rash Take as instructed per package. 21 tablet 10/11/2024 10/17/2024 Active 24 hr metoprolol succinate 25 mg extended release oral tablet (4 sources) beta-Adrenergic Tova Start: 2022 End: 2022 take 0.5 tablet by mouth once daily metoprolol succinate ER (TOPROL XL) 25 mg 24 hr tablet Take 0.5 tablets by mouth once daily. 15 tablet 5 01/20/2023 03/23/2023 Discontinued Comment on above: Take 0.5 tablets by mouth once daily. miconazole nitrate 20 mg/ml vaginal cream (8 sources) Azole Antifungal Start: 2023 End: 2023 miconazole (MONISTAT 7) 2 % vaginal cream Indications: Yeast vaginitis Use 1 Applicator vaginally daily at bedtime for 7 days. 45 g 06/16/2024 06/23/2024 Active multivitamin 1 tablet (1 source) Start: 2020 take 1 tablet by mouth once daily 1 tablet, Oral, DAILY, First dose on Thu04/02/21 at 0900 mupirocin 0.02 mg/mg topical ointment (1 source) RNA Synthetase Inhibitor Antibacterial Start: 2023 End: 2023 mupirocin (BACTROBAN) 2 % ointment Apply to affected area three times a day for 5 days. 30 g 0 01/08/2024 01/13/2024 Active 24 hr nicotine 0.875 mg/hr transdermal system (2 sources) Cholinergic Nicotinic Agonist Start: 2020 nicotine (NICODERM CQ) 21 MG/24HR 1 patch Start: 04-02-2021 2 mg, Oral, EV KATHERYN 1 HOUR PRN, Smoking cessation, Starting on Thu04/02/21 at 0731 Do not use continuously one lozenge after another. Maximum: 5 lozenges every 6 hours; 20 lozenges/day nitrofurantoin, macrocrystals 25 mg / nitrofurantoin, monohydrate 75 mg oral capsule (3 sources) Nitrofuran Antibacterial Start: 08-17-2023 End: 08-24-2023 take 1 capsule by mouth twice daily nitrofurantoin monohydrate and macrocrystal (MACROBID) 100 mg capsule Indications: 23 weeks gestation of , Supervision of high risk , antepartum Take 1 capsule by mouth two times a day for 7 days. 14 capsule 0 08/17/2023 08/24/2023 Active Comment on above: Take 1 capsule by [facility] two times a day for 7 days. ondansetron 4 mg disintegrating oral tablet (20 sources) Serotonin-3 Receptor Antagonist Start: 07-31-2023 End: 03-17-2024 take 1 tablet by mouth every eight hours for nausea ondansetron orally disintegrating (ZOFRAN ODT) 4 mg disintegrating tablet Indications: RUQ pain dissolve 1 tablet ON TONGUE every 8 hours if needed for nausea OR vomiting 30 tablet 2 03/17/2024 Active Start: 05-19-2022 End: 06-18-2023 take 1 tablet by mouth every eight hours for nausea ondansetron orally disintegrating (ZOFRAN ODT) 4 mg disintegrating tablet dissolve 1 tablet ON TONGUE every 8 hours if needed for nausea OR vomiting 10 tablet 0 06/19/2023 Active Start: 11-02-2021 End: 05-17-2022 take 1 tablet by mouth every eight hours for nausea ondansetron orally disintegrating (ZOFRAN ODT) 4 mg disintegrating tablet dissolve 1 tablet ON TONGUE every 8 hours if needed for nausea OR vomiting 30 tablet 5 02/20/2022 05/17/2022 Discontinued Start: 04-01-2021 End: 04-01-2021 ondansetron (ZOFRAN) injecti on 4 mg Comment on above: dissolve 1 tablet ON TONGUE every 8 hours if needed for nausea OR vomiting ondansetron (ZOFRAN-ODT) disintegrating tablet 4 mg (1 source) Start: 04-02-20 ondansetron (ZOFRAN-ODT) disintegrating tablet 4 mg pantoprazole 40 mg delayed release oral tablet (20 sources) Proton Pump Inhibitor Start: 03-23-20 End: 12-30-19 take 1 tablet by mouth once daily pantoprazole DR (PROTONIX) 40 mg tablet Indications: RUQ pain take 1 tablet by mouth once daily AT LEAST 30 MINUTES BEFORE EATING 90 tablet 2 12/29/2024 Active perflutren lipid microspheres 1.3 mL in NaCl (PF) 0.9% 10 mL injection (DEFINITY) (20 sources) Start: 12-06-19 End: 03-05-20 24 perflutren lipid microspheres 1.3 mL in NaCl (PF) 0.9% 10 mL injection (DEFINITY) phenazopyridine hydrochloride 100 mg oral tablet (20 sources) Start: 08-17-19 take 1 tablet by mouth three times daily as needed phenazopyridine (PYRIDIUM) 100 mg tablet Indications: 23 weeks gestation of , Supervision of high risk , antepartum Take 1 tablet by mouth three times a day as needed. 9 tablet 0 08/17/2023 Active Comment on above: Take 1 tablet by [facility] three times a day as needed. polyethylene glycol 3350 44024 mg powder for oral solution (20 sources) Osmotic Laxative Start: 06-23-20 polyethylene glycol 3350 (MIRALAX) 17 gram/dose powder Indications: Constipation, unspecified constipation type Take 17 g by mouth once daily. Dissolve dose in 4 - 8 ounces of liquid and take as directed. 765 g 1 06/23/2024 Active Start: 11-07-2022 End: 03-17-2024 polyethylene glycol 3350 (NC RALAX) 17 gram/dose powder Indications: Chronic constipation Take 17 g by mouth twice daily. 527 g 2 11/07/2022 03/17/2024 Discontinued (Course of therapy completed) Comment on above: Take 17 g by mouth t wice daily. prazosin 1 mg oral capsule (20 sources) alpha-Adrenergic Tova Start: take 1 capsule by mouth once daily at bedtime prazosin (MINIPRESS) 1 mg cap Take 1 mg by mouth daily at bedtime. 06/07/2024 Active predniSONE 20 mg oral tablet (2 sources) Start: 3 End: 3 take 2 tablets by mouth once daily predniSONE (DELTASONE) 20 mg tablet Take 2 tablets by mouth once daily for 5 days. 10 tablet 0 12/10/2022 12/15/2022 Active Comment on above: Take 2 tablets by [facility] once daily for 5 days. sertraline 100 mg oral tablet (1 source) Serotonin Reuptake Inhibitor take 1 tablet by mouth once daily sertraline 100 mg oral tablet ; 1 tab(s) orally once a day Quantity: 0 Refills: 0 Ordered: 21-Nov-2021 Dilan Benoit Generic Substitution Allowed 125 ml sodium chloride 9 mg/ml prefilled syringe (20 sources) Start: 3 End: sodium chloride 0.9 % (flush) 10 mL (BD POSIFLUSH) Start: 04-02-2021 End: 04-02-2021 IntraVENous, at 100 mL/hr, C ONTINUOUS, Starting on Thu04/02/21 at 0615, For 10 hours Start: 04-01-2021 End: 04-01-2021 0.9 % sodium chloride bolus sodium chloride flush 0.9 % injection 3 mL (1 source) Start: 04-01-2021 sodium chlorid e flush 0.9 % injection 3 mL thiamine 100 mg oral tablet (1 source) Start: 04-02-2021 take 100 mg by mouth once daily 100 mg, Oral, DAILY, First dose on Thu04/02/21 at 0900 tiZANidine 2 mg oral capsule (5 sources) Central alpha-2 Adrenergic Agonist Start: 06-22-2024 End: 07-07-2024 take 1 capsule by mouth every eight hours as needed for muscle spasms tiZANidine HCl (ZANAFLEX) 2 mg capsule Indications: Acute left-sided low back pain with left-sided sciatica Take 1 capsule by mouth every 8 hours as needed for muscle spasm for up to 15 days. 15 capsule 06/22/2024 07/07/2024 Active valACYclovir 500 mg oral tablet (11 sources) Herpesvirus Nucleoside Analog DNA Polymerase Inhibitor, Herpes Simplex Virus Nucleoside Analog DNA Polymerase Inhibitor, Herpes Zoster Virus Nucleoside Analog DNA Polymerase Inhibitor Start: 10-18-2024 take 1 tablet by mouth once daily valACYclovir (VALTREX) 500 mg tablet Indications: HSV-2 infection Take 1 tablet by mouth once daily. 90 tablet 2 10/18/2024 Active Start: 10-14-2024 End: 10-24-2024 take 1 tablet by mouth twice daily valACYclovir (VALTREX) 1 gram tablet Indications: Vulvar lesion Take 1 tablet by mouth two times a day for 10 days. 20 tablet 10/14/2024 10/24/2024 Active vitamin b12 1 mg/ml injectable solution (6 sources) Vitamin B12 Start: 01-18-2022 cyanocobalamin 1000 mcg/mL injectable solution 0 Refill(s) Start Date: 01/18/22 Status: Ordered Start: 12-02-2021 End: 02-20-2022 cyanocobalamin 1,000 mcg/mL inject 1 milliliter ( 1000 MCG ) intramuscularly Every Month if needed 0 12/02/2021 02/20/2022 Discontinued cyanocobalamin 1 000 mcg/mL injectable solution ; 1000 microgram(s) injectable every 4 weeks Quantity: 0 Refills: 0 Ordered: 21-Nov-2021 Dilan Benoit Generic Substitution Allowed Comment on above: inject 1 milliliter ( 1000 MCG ) intramuscularly Every Month if needed Completed/Discontinued Medications Medication Drug Class(es) Dates Sig (Normalized) Sig (Original) [id number] 200 actuat albuterol 0.09 mg/actuat metered dose inhaler (2 sources) beta2-Adrenergic Agonist Start: 03-14-2019 End: 01-03-2022 take 2 puff(s) by inhalation every four hours as needed for cough albuterol HFA (PROVENTIL HFA, VENTOLIN HFA) 90 mcg/actuation inhaler Indications: Mild intermittent asthma with acute exacerbation Inhale 2 Puffs as instructed every 4 hours as needed for Wheezing/Shortness of Breath (tight cough). 1 Inhaler 1 03/14/2019 01/03/2022 Discontinued (Other) Comment on above: Inhale 2 Puffs as in structed every 4 hours as needed for Wheezing/Shortness of Breath (tight cough). ARIPiprazole 2 mg oral tablet (20 sources) Atypical Antipsychotic Start: 01-11-2024 End: 06-23-2024 take 1 tablet by mouth once daily ABILIFY 2 mg tablet Take 2 mg by mouth once daily. 01/11/2024 06/23/2024 Discontinued (Discontinued by Patient) Benzocaine (1 source) Standardized Chemical Allergen Start: 04-14-2024 End: 04-14-2024 1 [place], TOPICAL, DIRECTED, Starting on Ashley 04/14/24 at 1030, Until Ashley 04/14/24 at 1429, Dosing as directed for intraprocedural use only - Pharmaceutical Waste: Aerosol -, Intraprocedure calcium chloride 0.0014 meq/ml / potassium chloride 0.004 meq/ml / sodium chloride 0.103 meq/ml / sodium lactate 0.028 meq/ml injectable solution (1 source) Start: 04-14-2024 End: 04-14-2024 take 30 mL intravenously every hour 30 mL/hr, INTRAVENOUS, CONTINUOUS, Starting on Ashley 04/14/24 at 0930, Until Ashley 04/14/24 at 1134, Preprocedure carvedilol 3.125 mg oral tablet (6 sources) alpha-Adrenergic Tova, beta-Adrenergic Tova Start: 03-23-2023 End: 05-01-2023 take 1 tablet by mouth once daily carvedilol (COREG) 3.125 mg tablet Take 1 tablet by mouth once daily. 30 tablet 5 03/23/2023 05/01/2023 Discontinued Comment on above: Take 1 tablet by yane once daily. cephalexin 500 mg oral capsule (7 sources) Cephalosporin Antibacterial Start: 04-13-2023 End: 05-19-2023 take 1 capsule by mouth every six hours cephALEXin (KEFLEX) 500 mg capsule Take 1 capsule by mouth every 6 hours. 0 04/13/2023 05/19/2023 Discontinued Start: 05-22-2022 End: 06-01-2022 take 1 capsule by mouth three times daily cephALEXin (KEFLEX) 500 mg capsule Indications: Cellulitis of skin Take 1 capsule by mouth three times daily for 10 days. 30 capsule 0 05/22/2022 06/01/2022 Active Start: 05-27-2021 End: 06-04-2021 Keflex 500 mg oral capsule D ose : 500 mg = 1 cap(s), Oral, q12h, # 20 cap(s), 0 Refill(s), 06/04/21 22:05:00 EST, 67.2 Start Date: 05/27/21 Stop Date: 06/04/21 Status: Ordered Comment on above: Take 1 capsule by [facility] three times daily for 10 days. Take 1 capsule by [facility] every 6 hours. cholecalciferol 0.05 mg oral tablet (20 sources) Vitamin D Start: 07-31-19 End: 06-23-20 take 1 tablet by mouth once daily cholecalciferol (VITAMIN D-3) 50 mcg (2,000 unit) tablet Take 1 tablet by mouth once daily. 100 tablet 1 11/09/2023 06/23/2024 Discontinued (Discontinued by Patient) Start: 11-06-2021 End: 02-20-2022 take 1 capsule by mouth once daily Cholecalciferol, Vitamin D3, 125 mcg (5,000 unit) cap Take 1 capsule by mouth once daily. 0 11/06/2021 02/20/2022 Discontinued Comment on above: Take 1 capsule by [facility] once daily. Take 1 tablet by [facility] once daily. Comp Stocking,Knee,Regular, Med misc (5 sources) Start: 08-17-2023 End: 08-28-2023 Comp Stocking,Knee,Regular,Med misc Indications: 23 weeks gestation of , Supervision of high risk , antepartum 1 Package once daily. 1 Each 0 08/17/2023 08/28/2023 Discontinued Start: 08-17-2023 Comp Stocking, Knee,Regular,Med misc Indications: 23 weeks gestation of , Supervision of high risk , antepartum 1 Package once daily. 1 Each 0 08/17/2023 Active Comment on above: 1 Package once daily . cyclobenzaprine hydrochloride 10 mg oral tablet (10 sources) Muscle Relaxant Start: 12-15-19 End: 02-15-20 take 1 tablet by mouth every eight hours as needed cyclobenzaprine (FLEXERIL) 10 mg tablet Take 1 tablet by mouth three times a day as needed. 30 tablet 0 12/15/2023 02/15/2024 Discontinued diphenhydrAMINE (20 sources) Histamine-1 Receptor Antagonist Start: 04-14-20 End: 10-03-20 24 12.5-50 mg, INTRAVENOUS, DIRECTED, Starting on Ashley 04/14/24 at 1030, Until Ashley 04/14/24 at 1429, DOSING DIRECTED BY PHYSICIAN FOR PROCEDURAL SEDATION ONLY, Intraprocedure Start: 09-10-2023 End: 08-15-2024 take 1 capsule by mouth every six hours as needed diphenhydrAMINE (BENADRYL) 25 mg capsule Take 1 capsule by mouth every 6 hours as needed. For itching and insomnia. 28 capsule 1 09/10/2023 08/15/2024 Discontinued Comment on above: Take 1 capsule by [facility] every 6 hours as needed. For itching and insomnia. doxylamine succinate 10 mg / pyridoxine hydrochloride 10 mg delayed release oral tablet (7 sources) Start: doxylamine-pyridoxine , vit B6, (DICLEGIS) 10-10 mg TbEC Indications: Morning sickness Take 2 tabs at night. If symptoms persist after 2 days add one tab in the morning. If symptoms still persist after 4 days add a tab mid-day 100 tablet 1 06/01/2023 Active Comment on above: Take 2 tabs at night . If symptoms persist after 2 days add one tab in the morning. If symptoms still persist after 4 days add a tab mid-day DULoxetine 20 mg delayed release oral capsule (20 sources) Serotonin and Norepinephrine Reuptake Inhibitor Start: 025 End: 025 take 1 capsule by mouth once daily DULoxetine (CYMBALTA) 20 mg capsule Indications: Hypermobility arthralgia , Severe episode of recurrent major depressive disorder, without psychotic features (HCC) , ÁLVARO (generalized anxiety disorder) , Chronic low back pain, unspecified back pain laterality, unspecified whether sciatica present , History of alcohol abuse Take 1 capsule by mouth once daily. 90 capsule 1 09/19/2024 11/25/2024 Discontinued 1 ml fentaNYL 0.05 mg/ml injection (1 source) Opioid Agonist Start: 024 End: 024 25-100 mcg, INTRAVENOUS, DIRECTED, Starting on Ashley 04/14/24 at 1030, Until Ashley 04/14/24 at 1429, DOSING DIRECTED BY PHYSICIAN FOR PROCEDURAL SEDATION ONLY, Intraprocedure FLUoxetine 20 mg oral capsule (18 sources) Serotonin Reuptake Inhibitor Start: 023 End: 023 take 1 capsule by mouth once daily FLUoxetine (PROZAC) 20 mg capsule Take 20 mg by mouth once daily. 0 09/04/2022 02/24/2023 Discontinued Start: 03-27-2021 End: 01-03-2022 PROzac 20 mg oral capsule Do se : 20 mg = 1 cap(s), Oral, qDay, # 60 cap(s), 0 Refill(s) Start Date: 05/28/21 Status: Ordered Comment on above: Take 1 capsule by [facility] once daily. Take 20 mg by mouth once daily. hydrOXYzine hydrochloride 25 mg oral tablet (2 sources) Antihistamine Start: 02-28-20 End: 01-04-20 take 1 tablet by mouth every eight hours as needed hydrOXYzine HCl (ATARAX) 25 mg tablet Take 1 tablet by mouth three times daily as needed for anxiety. 30 tablet 1 02/27/2021 01/03/2022 Discontinued (Other) Comment on above: Take 1 tablet by [facility] three times daily as needed for anxiety. lamoTRIgine 25 mg oral tablet (20 sources) Mood Stabilizer, Anti-epileptic Agent Start: 07-18-19 End: 01-04-20 take 1 tablet by mouth once daily lamoTRIgine (LAMICTAL) 25 mg tablet Take 25 mg by mouth once daily. 0 07/18/2022 Active Start: 07-18-2022 End: 02-24-2023 take 4 tablets by mouth once daily lamoTRIgine (LAMICTAL) 25 mg tablet Take 100 mg by mouth once daily. 0 07/18/2022 02/24/2023 Discontinued Start: 12-26-2021 End: 06-10-2022 lamoTRIgine (LAMICTAL) 100 m g tablet End: 12-22-2023 lamoTRIgine (LAMICTAL) 25 mg tablet Comment on above: Take 25 mg by mouth once daily. Take 100 mg by mouth once daily. lithium carbonate 300 mg oral capsule (7 sources) Start: 3 End: 3 take 1 capsule by mouth once daily at bedtime lithium carbonate (ESKALITH) 300 mg capsule Take 300 mg by mouth daily at bedtime. 0 10/01/2022 12/05/2022 Discontinued Comment on above: Take 300 mg by mouth daily at bedtime. LORazepam 0.5 mg oral tablet (20 sources) Benzodiazepine Start: 4 End: 5 take 0.5 mg by mouth every twenty-four hours as needed LORazepam (ATIVAN) 0.5 mg Take 0.5 mg by mouth at bedtime as needed. 06/07/2024 08/22/2024 Discontinued Start: 11-28-2021 End: 02-20-2022 take 1 tablet by mouth every twelve hours as needed LORazepam (ATIVAN) 1 mg tablet Take 1 mg by mouth twice daily as needed. 0 11/28/2021 02/20/2022 Discontinued Start: 04-02-2021 LORazepam (ATI VAN) tablet 1 mg Start: 04-01-2021 End: 04-02-2021 LORazepam (ATIVAN) injection 1 mg Comment on above: Take 1 mg by mouth t wice daily as needed. lurasidone hydrochloride 20 mg oral tablet (20 sources) Atypical Antipsychotic Start: 07-08-20 23 End: 12-22-19 24 take 1 tablet by mouth once daily lurasidone (LATUDA) 20 mg tablet Take 20 mg by mouth once daily. 0 07/08/2023 12/22/2023 Discontinued Start: 12-05-2022 take 1 tablet by mouth once delmis rasidone (LATUDA) 40 mg tablet Take 1 tablet by mouth once daily. Per psych: Dr. Ray 0 12/05/2022 Active Comment on above: Take 1 tablet by yane once daily. Per psych: Dr. Ray Take 20 mg by mouth once daily. metFORMIN hydrochloride 500 mg oral tablet (20 sources) Biguanide Start: 4 End: 5 take 1 tablet by mouth once daily at dinner metFORMIN (GLUCOPHAGE) 500 mg tablet Take 1 tablet by mouth daily with dinner. 90 tablet 02/22/2024 08/15/2024 Discontinued Start: 02-24-2023 End: 02-24-2024 take 1 tablet by mouth twice daily at mealtime metFORMIN (GLUCOPHAGE) 500 mg tablet Take 1 tablet by mouth twice daily with meals. 180 tablet 3 02/24/2023 05/19/2023 Discontinued Start: 12-05-2022 take 1 tablet by yane th once daily at breakfast metFORMIN ER (GLUCOPHAGE XR) 500 mg 24 hr tablet Take 1 tablet by mouth daily with breakfast. 30 tablet 4 12/05/2022 Active Start: 11-06-2021 End: 06-10-2022 take 1 tablet by mouth once daily at breakfast metFORMIN ER (GLUCOPHAGE XR) 500 mg 24 hr tablet Take 1 tablet by mouth daily with breakfast. 30 tablet 5 02/20/2022 06/10/2022 Discontinued Comment on above: take 1 tablet by yane th daily for 2 weeks then 2 tablets by mouth daily Take 1 tablet by yane th daily with breakfast. Take 1 tablet by yane th twice daily with meals. 5 ml midazolam 1 mg/ml injection (1 source) Benzodiazepine Start: End: 1-5 mg, INTRAVENOUS, DIRECTED, Starting on Ashley 04/14/24 at 1030, Until Ashley 04/14/24 at 1429, DOSING DIRECTED BY PHYSICIAN FOR PROCEDURAL SEDATION ONLY, Intraprocedure naltrexone hydrochloride 50 mg oral tablet (6 sources) Opioid Antagonist Start: End: take 1 tablet by mouth once daily naltrexone (TREXAN) 50 mg tablet Take 50 mg by mouth once daily. 0 01/28/2022 06/10/2022 Discontinued Comment on above: Take 50 mg by mouth once daily. norethindrone acetate 5 mg oral tablet (13 sources) Start: End: norethindrone (AYGESTIN) 5 mg tablet Indications: abnormal uterine bleeding due to hormonal imbalance Take 1 tablet TID until bleeding stops for 24 hours, then 1 tablet BID x 3 days, then 1 tablet daily x 3 days. 35 tablet 09/08/2024 10/14/2024 Discontinued nortriptyline 10 mg oral capsule (14 sources) Tricyclic Antidepressant Start: End: take 1 capsule by mouth once daily at bedtime, then take 2 capsules by mouth once daily at bedtime nortriptyline (PAMELOR) 10 mg capsule Take 1 capsule by mouth daily at bedtime for 7 days, THEN 2 capsules daily at bedtime. 207 capsule 06/29/2024 08/15/2024 Discontinued omeprazole 20 mg delayed release oral capsule (20 sources) Proton Pump Inhibitor Start: 023 End: take 1 capsule by mouth once daily omeprazole (PRILOSEC) 20 mg capsule Indications: Nausea and vomiting, unspecified vomiting type , Heartburn take 1 capsule by mouth once daily 30 capsule 3 01/08/2023 12/22/2023 Discontinued Comment on above: Take 1 capsule by mo ut once daily. take 1 capsule by mo ut once daily vits62/FA/om3/dha/epa ( GUMMY ORAL) (20 sources) End: vits62/FA/om3/dha/epa ( GUMMY ORAL) Take by mouth. 0 01/19/2024 Discontinued vits62/ FA/om3/dha/epa ( GUMMY ORAL) Take by mouth. 0 Active Comment on above: Take by mouth. propranolol hydrochloride 10 mg oral tablet (20 sources) beta-Adrenergic Tova Start: 3 End: take 1 tablet by mouth twice daily propranolol (INDERAL) 10 mg tablet Indications: PVC's (premature ventricular contractions) Take 1 tablet by mouth two times a day. 60 tablet 5 11/09/2023 12/22/2023 Discontinued Start: 01-18-2022 End: 12-05-2022 propranolol 10 mg oral table t 0 Refill(s) Start Date: 01/18/22 Status: Ordered take 1 tablet by yane th twice daily propranolol 10 mg oral tablet ; 1 tab(s) orally 2 times a day Quantity: 0 Refills: 0 Ordered: 21-Nov-2021 Temi Colbert Generic Substitution Allowed Comment on above: Take 10 mg by mouth three times daily. Take 1 tablet by yane th two times a day. Sulfamethoxazole / Trimethoprim (10 sources) Dihydrofolate Reductase Inhibitor Antibacterial, Sulfonamide Antimicrobial End: 01-19-2024 sulfamethoxazole/trime thoprim (BACTRIM ORAL) Take by mouth. 0 01/19/2024 Discontinued sulfamethoxazole /trimethoprim (BACTRIM ORAL) Take by mouth. 0 Active End: 05-19-2023 sulfamethoxazole-trimethopri m (BACTRIM DS) 800-160 mg per tablet traZODone hydrochloride 50 mg oral tablet (5 sources) Serotonin Reuptake Inhibitor Start: 12-26-2021 End: 02-20-2022 traZODone (DESYREL) 50 mg tablet triamcinolone acetonide 1 mg/ml topical cream (3 sources) Corticosteroid Start: 10-08-2024 End: 10-15-2024 triamcinolone acetonide (KENALOG) 0.1 % cream Apply 1 application to affected area three times a day for 7 days. Apply sparingly to area for rash/itching. 28.5 g 10/08/2024 10/11/2024 Discontinued zuranolone (ZURZUVAE) 20 mg capsule (10 sources) End: 02-15-2024 take 1 capsule by mouth once daily in the evening zuranolone (ZURZUVAE) 20 mg capsule Indications: has not started yet waiting on mail order Take 20 mg by mouth every evening. Take with fat-containing food. 0 02/15/2024 Discontinued take 1 capsule by [facility] once daily in the evening zuranolone (ZURZUVAE) 20 mg capsule Indications: has not started yet waiting on mail order Take 20 mg by mouth every evening. Take with fat-containing food. 0 Active Problems Active Problems Problem Classification Problem Date Documented Da te Episodic/Chronic Abdominal pain (20 sources) Left lower quadrant pain; Translations: [Left lower quadrant pain] Onset: 12-15-2023 Episodic Alcohol-related disorders (20 sources) Alcohol withdrawal syndrome; Translations: [Alcohol dependence with withdrawal, unspecified] Onset: 04-02-2021 Chronic Anxiety disorders (20 sources) Anxiety state; Translations: [Generalized anxiety disorder] Onset: 06-01-2017 Resolved: 12-15-2023 Chronic Asthma (20 sources) Cough variant asthma; Translations: [Cough variant asthma] Onset: 06-17-2012 Resolved: 11-12-2023 09-16-2021 Chronic Biliary tract disease (3 sources) Biliary dyskinesia; Translations: [Other specified diseases of gallbladder] Onset: 12-16-2024 12-16-2024 Episodic Cardiac dysrhythmias (20 sources) Multiple premature ventricular complexes; Translations: [Ventricular premature depolarization] Onset: 01-08-2023 01-08-2023 Chronic Coagulation and hemorrhagic disorders (2 sources) Platelet count below reference range; Translations: [Thrombocytopenia, unspecified] Onset: 09-19-2024 09-19-2024 Chronic Conditions associated with dizziness or vertigo (7 sources) Dizziness; Translations: [Dizziness and giddiness] Onset: 05-28-2024 05-28-2024 Episodic Coronary atherosclerosis and other heart disease (1 source) Ischemic chest pain; Translations: [Chronic ischemic heart disease, unspecified] 12-14-2023 Chronic Delirium, dementia, and amnestic and other cognitive disorders (20 sources) Postconcussion syndrome; Translations: [Postconcussional syndrome] Onset: 06-30-2024 06-30-2024 Chronic Fever of unknown origin (5 sources) Pyrexia of unknown origin; Translations: [Fever, unspecified] Onset: 12-16-2024 12-16-2024 Episodic Headache; including migraine (2 sources) Headache; Translations: [Headache, unspecified headache type] 05-28-2024 Episodic Headache; including migraine (2 sources) Headache; including migraine; Translations: [Headache, unspecified] Onset: 05-28-2024 Malaise and fatigue (2 sources) Fatigue; Translations: [Chronic fatigue, unspecified] Onset: 12-15-2023 07-19-2024 Chronic Menstrual disorders (20 sources) Menometrorrhagia; Translations: [Excessive and frequent menstruation with irregular cycle] Onset: 11-28-2015 Resolved: 09-18-2022 09-16-2021 Chronic Miscellaneous mental health disorders (20 sources) Anorexia nervosa, binge-eating purging type; Translations: [Anorexia nervosa, binge eating/purging type] Onset: 03-12-2018 09-16-2021 Chronic Mood disorders (20 sources) Major depressive disorder; Translations: [Major depressive affective disorder, single episode, unspecified] Onset: 01-26-2018 11-21-2021 Chronic Comment on above: MAJOR DEPRESSIVE DIS ORDER, SINGLE EPISODE, UNSPECIFIED Mood disorders (2 sources) Mood disorders 11-21-2021 Nonmalignant breast conditions (2 sources) Mastodynia; Translations: [Mastodynia] Episodic Other bone disease and musculoskeletal deformities (3 sources) Bone pain; Translations: [Other specified disorders of bone, unspecified site] 02-29-2024 Episodic Other circulatory disease (1 source) Low blood pressure; Translations: [Hypotension, unspecified] Episodic Other circulatory disease (1 source) Elevated blood-pressure reading without diagnosis of hypertension; Translations: [Elevated blood-pressure reading, without diagnosis of hypertension] 12-14-2023 Episodic Other complications of ; puerperium affecting management of mother (1 source) Failure of ; Translations: [Agalactia] 02-15-2024 Episodic Other complications of (1 source) Morning sickness; Translations: [Mild hyperemesis gravidarum] 06-01-2023 Episodic Other complications of (1 source) Urinary tract infection in ; Translations: [Unspecified infection of urinary tract in , unspecified trimester] 06-12-2023 Episodic Other complications of (1 source) Spotting per vagina in ; Translations: [Spotting complicating , unspecified trimester] 09-10-2023 Episodic Other complications of (1 source) Fundal height low for dates; Translations: [Uterine size-date discrepancy, third trimester] 11-12-2023 Episodic Other connective tissue disease (1 source) Pain in finger of right hand; Translations: [Pain in right finger(s)] Episodic Other connective tissue disease (3 sources) Muscle pain; Translations: [Myalgia, unspecified site] 02-29-2024 Episodic Other connective tissue disease (2 sources) Pain in lower limb; Translations: [Pain in unspecified lower leg] 02-29-2024 Episodic Other connective tissue disease (1 source) Pain in both feet; Translations: [Pain in right foot] 10-11-2024 Episodic Other connective tissue disease (1 source) Pain in right foot; Translations: [Foot pain, bilateral] Onset: 10-11-2024 Episodic Other connective tissue disease (1 source) Pain in left foot; Translations: [Foot pain, bilateral] Onset: 10-11-2024 Episodic Other endocrine disorders (20 sources) Polycystic ovary syndrome; Translations: [Polycystic ovarian syndrome] Onset: 02-20-2022 Chronic Other endocrine disorders (1 source) Polycystic ovarian syndrome; Translations: [PCOS (polycystic ovarian syndrome)] Onset: 02-22-2024 Chronic Other female genital disorders (3 sources) Abnormal uterine bleeding; Translations: [Abnormal uterine and vaginal bleeding, unspecified] Chronic Other female genital disorders (2 sources) Vaginal bleeding; Translations: [Postcoital and contact bleeding] 03-31-2024 Chronic Other female genital disorders (1 source) Postcoital and contact bleeding; Translations: [Postcoital and contact bleeding] Onset: 04-07-2024 Chronic Other female genital disorders (1 source) Lesion of vulva; Translations: [Other specified noninflammatory disorders of vulva and perineum] 10-14-2024 Episodic Other female genital disorders (1 source) Vaginal irritation; Translations: [Other specified noninflammatory disorders of vagina] 10-14-2024 Episodic Other gastrointestinal disorders (3 sources) Chronic constipation; Translations: [Other constipation] Episodic Other gastrointestinal disorders (2 sources) Abdominal bloating; Translations: [Abdominal distension (gaseous)] Episodic Other gastrointestinal disorders (3 sources) Heartburn; Translations: [Heartburn] Episodic Other gastrointestinal disorders (2 sources) Altered bowel function; Translations: [Change in bowel habit] Episodic Other gastrointestinal disorders (2 sources) Oropharyngeal dysphagia; Translations: [Dysphagia, oropharyngeal phase] 09-11-2023 Episodic Other gastrointestinal disorders (1 source) Constipation; Translations: [Constipation, unspecified] 06-23-2024 Episodic Other infections; including parasitic (1 source) Worms in stool; Translations: [Helminthiasis, unspecified] 01-08-2024 Episodic Other inflammatory condition of skin (1 source) Pruritus, unspecified; Translations: [Unspecified pruritic disorder] 09-10-2023 Episodic Other injuries and conditions due to external causes (2 sources) Contusion; Translations: [Other injury of unspecified body region, initial encounter] 01-18-2024 Episodic Other injuries and conditions due to external causes (1 source) Closed injury of head; Translations: [Unspecified injury of head, initial encounter] 05-25-2024 Episodic Other injuries and conditions due to external causes (1 source) Other injury of unspecified body region, initial encounter; Translations: [Bruising] Onset: 11-25-2024 Episodic Other lower respiratory disease (1 source) Decreased respiratory function; Translations: [Other respiratory abnormalities] 11-21-2021 Episodic Other lower respiratory disease (2 sources) Cough; Translations: [Acute cough] 04-04-2024 Episodic Other lower respiratory disease (1 source) Snoring; Translations: [Snoring] 07-19-2024 Episodic Other nervous system disorders (2 sources) Disorder of autonomic nervous system; Translations: [Disorder of the autonomic nervous system, unspecified] 06-16-2024 Chronic Other nervous system disorders (1 source) Other chronic pain; Translations: [Chronic low back pain, unspecified back pain laterality, unspecified whether sciatica present] Onset: 12-15-2023 Chronic Other nervous system disorders (1 source) Disorder of the autonomic nervous system, unspecified; Translations: [Autonomic dysfunction] Onset: 06-16-2024 Chronic Other nervous system disorders (1 source) Impairment of balance; Translations: [Other abnormalities of gait and mobility] 05-28-2024 Episodic Other nervous system disorders (1 source) Finding of sensation of lower limb; Translations: [Unspecified disturbances of skin sensation] 05-28-2024 Episodic Other nervous system disorders (1 source) Hypesthesia; Translations: [Hypoesthesia of skin] 05-28-2024 Episodic Other nutritional; endocrine; and metabolic disorders (4 sources) Weight loss; Translations: [Abnormal weight loss] Episodic Other nutritional; endocrine; and metabolic disorders (2 sources) Weight gain; Translations: [Abnormal weight gain] 03-19-2023 Episodic Other nutritional; endocrine; and metabolic disorders (5 sources) Weight decreased; Translations: [Abnormal weight loss] 11-25-2024 Episodic Other nutritional; endocrine; and metabolic disorders (3 sources) Abnormal weight loss; Translations: [Weight loss] Onset: 03-16-2024 Episodic Other skin disorders (1 source) Nail problem; Translations: [Nail disorder, unspecified] Episodic Other skin disorders (2 sources) Folliculitis; Translations: [Follicular disorder, unspecified] 01-08-2024 Episodic Other skin disorders (1 source) Mass of thoracic structure; Translations: [Localized swelling, mass and lump, trunk] 01-19-2024 Episodic Other skin disorders (1 source) Breast changes; Translations: [Changes in skin texture] 01-19-2024 Episodic Other skin disorders (1 source) Hidradenitis suppurativa; Translations: [Hidradenitis suppurativa] 03-31-2024 Episodic Other skin disorders (4 sources) Rash and other nonspecific skin eruption; Translations: [Rash and other nonspecific skin eruption] Onset: 06-16-2024 06-16-2024 Episodic Other skin disorders (5 sources)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 [facility] Comment on above: Order Comment: Speci men Type: URINE SPECIMENOrdering Facility: [facility] Address: [address] [place] [address] Result Comment: REFE RENCE INTERVAL: Norepinephrine, Urine - ug/dAccess complete set of age- and/or gender-specific referenceintervals for this test in the [facility] Test Directory(Loccie). Performed By: #### U RCAT2 ####[facility]IA [id number] [place] [address] NOREPINEPHRINE, UR PER VOL 11 ug/L Normal [facility] Comment on above: Order Comment: Speci men Type: URINE SPECIMENOrdering Facility: [facility] Address: [address] [place] [address] Performed By: #### U RCAT2 ####[facility]IESCLIA [id number] [place] [address] NOREPINEPHRINE, UR RATIO TO TOOLING ENGINEER 18 ug/g TOOLING ENGINEER Normal 0-45 [facility] Comment on above: Order Comment: Speci men Type: URINE SPECIMENOrdering Facility: [facility] Address: [address] [place] [address] Performed By: #### U RCAT2 ####[facility]IESCLIA [id number] [place] [address] TOTAL VOLUME [address] [facility] Comment on above: Order Comment: Speci men Type: URINE SPECIMENOrdering Facility: [facility] Address: [address] [place] [address] Performed By: #### U RCAT2 ####[facility]IA [id number] [place] [address] CNPNon 12-21-[address] [facility] Amylase SerPl-cCncon 025 Amylase [Catalytic activity/Vol] 47 U/L Normal 30-104 [facility] Comment on above: Order Comment: Speci men Type: BLOOD SPECIMENOrdering Facility: [facility] Address: [address] [place] [address] Performed By: #### 3 040-3, 1798 ####[facility] LABCLIA [id number] [address] [place] CNOVon 12-16-[address] [facility] Lipase SerPl-cCncon 12-17-19 25 Lipase [Catalytic activity/Vol] 28 U/L Normal 16-61 [facility] Comment on above: Order Comment: Speci men Type: BLOOD SPECIMENOrdering Facility: [facility] Address: [address] [place] [address] Performed By: #### 3 040-3, 1798 ####[facility] LABCLIA [id number] [place] [address] [place] No Panel Informationon 12-09 IMPRESSION: Unremarkable sonographic exam of the upper abdomen. Clinical Law Professor: PSCB Transcribe Date/Time: Dec 09 2024 2:43P Dictated by : KEITH CABALLERO MD This examination was interpreted and the report reviewed and electronically signed by: KEITH CABALLERO MD on Dec 09 2024 2:46PM [facility] DIVISION OF RADIOLOGY Radiology Study observation (narrative) [facility] No Panel InformationOrdered By: Ccf Provider on 12-09-2024 [facility] US ABD RIGHT UPPER QUADRANTo n 12-09-2024 US ABD RIGHT UPPER QUADRANT Normal [facility] US ABD SPLEEN - NBon 025 * * *Final Report* * * DATE OF EXAM: Dec 09 2024 10:35AM WRU 1232 - US ABD SPLEEN -NB / PROCEDURE REASON: multiple diagnoses * * * * Physician Interpretation * * * * EXAM TITLE: US ABD RIGHT UPPER QUADRANT, US ABD SPLEEN -NB HISTORY: Right upper quadrant abdominal pain. TECHNIQUE: Sonography of the right upper quadrant and spleen was performed. Images were obtained and stored in a permanent archive. MQ: URUQ_1 COMPARISON: Ultrasound abdomen on 11/13/2022 RESULT: Pancreas: Normal sonographic appearance in the visualized portions. Portions obscured: tail Liver: Echotexture: Normal, homogeneous. Echogenicity: Normal Surface contour: Smooth Lesions: None. MPV: Patent. Biliary: No intrahepatic biliary duct dilation. CBD: 2 mm in diameter. Gallbladder: Normal caliber -Contents: No cholelithiasis -Wall: 1 mm in thickness -Other: Negative sonographic Gaspar's sign. Kidneys: Within normal limits Spleen: No splenomegaly or mass lesion seen. The spleen measures 10 cm. DIVISION OF RADIOLOGY Provider, [facility] - 12/09/2024 * * *Final Report* * * DATE OF EXAM: Dec 09 2024 10:35AM RUST 1232 - US ABD SPLEEN -NB / PROCEDURE REASON: multiple diagnoses * * * * Physician Interpretation * * * * EXAM TITLE: US ABD RIGHT UPPER QUADRANT, US ABD SPLEEN -NB HISTORY: Right upper quadrant abdominal pain. TECHNIQUE: Sonography of the right upper quadrant and spleen was performed. Images were obtained and stored in a permanent archive. MQ: URUQ_1 COMPARISON: Ultrasound abdomen on 11/13/2022 RESULT: Pancreas: Normal sonographic appearance in the visualized portions. Portions obscured: tail Liver: Echotexture: Normal, homogeneous. Echogenicity: Normal Surface contour: Smooth Lesions: None. MPV: Patent. Biliary: No intrahepatic biliary duct dilation. CBD: 2 mm in diameter. Gallbladder: Normal caliber -Contents: No cholelithiasis -Wall: 1 mm in thickness -Other: Negative sonographic Gaspar's sign. Kidneys: Within normal limits Spleen: No splenomegaly or mass lesion seen. The spleen measures 10 cm. IMPRESSION IMPRESSION: Unremarkable sonographic exam of the upper abdomen. Clinical Law Professor: JOSE Transcribe Date/Time: Dec 09 2024 2:43P Dictated by : KEITH CABALLERO MD This examination was interpreted and the report reviewed and electronically signed by: KEITH CABALLERO MD on Dec 09 2024 2:46PM EST [facility] US ABD SPLEEN -NBon 12-10-19 US ABD SPLEEN -NB Normal [facility] US Abdomen RUQon 12-09-2024 * * *Final Report* * * DATE OF EXAM: Dec 09 2024 10:35AM U 1032 - US ABD RIGHT UPPER QUADRANT / PROCEDURE REASON: multiple diagnoses * * * * Physician Interpretation * * * * EXAM TITLE: US ABD RIGHT UPPER QUADRANT, US ABD SPLEEN -NB HISTORY: Right upper quadrant abdominal pain. TECHNIQUE: Sonography of the right upper quadrant and spleen was performed. Images were obtained and stored in a permanent archive. MQ: URUQ_1 COMPARISON: Ultrasound abdomen on 11/13/2022 RESULT: Pancreas: Normal sonographic appearance in the visualized portions. Portions obscured: tail Liver: Echotexture: Normal, homogeneous. Echogenicity: Normal Surface contour: Smooth Lesions: None. MPV: Patent. Biliary: No intrahepatic biliary duct dilation. CBD: 2 mm in diameter. Gallbladder: Normal caliber -Contents: No cholelithiasis -Wall: 1 mm in thickness -Other: Negative sonographic Gaspar's sign. Kidneys: Within normal limits Spleen: No splenomegaly or mass lesion seen. The spleen measures 10 cm. DIVISION OF RADIOLOGY Provider, [facility] - 12/09/2024 * * *Final Report* * * DATE OF EXAM: Dec 09 2024 10:35AM RUST 1032 - US ABD RIGHT UPPER QUADRANT / PROCEDURE REASON: multiple diagnoses * * * * Physician Interpretation * * * * EXAM TITLE: US ABD RIGHT UPPER QUADRANT, US ABD SPLEEN -NB HISTORY: Right upper quadrant abdominal pain. TECHNIQUE: Sonography of the right upper quadrant and spleen was performed. Images were obtained and stored in a permanent archive. MQ: URUQ_1 COMPARISON: Ultrasound abdomen on 11/13/2022 RESULT: Pancreas: Normal sonographic appearance in the visualized portions. Portions obscured: tail Liver: Echotexture: Normal, homogeneous. Echogenicity: Normal Surface contour: Smooth Lesions: None. MPV: Patent. Biliary: No intrahepatic biliary duct dilation. CBD: 2 mm in diameter. Gallbladder: Normal caliber -Contents: No cholelithiasis -Wall: 1 mm in thickness -Other: Negative sonographic Gaspar's sign. Kidneys: Within normal limits Spleen: No splenomegaly or mass lesion seen. The spleen measures 10 cm. IMPRESSION IMPRESSION: Unremarkable sonographic exam of the upper abdomen. Clinical Law Professor: JOSE Transcribe Date/Time: Dec 09 2024 2:43P Dictated by : KEITH CABALLERO MD This examination was interpreted and the report reviewed and electronically signed by: KEITH CABALLERO MD on Dec 09 2024 2:46PM [facility] B-HCG SerPl-aCncon 5 HCG.beta subunit Qn m[IU]/mL Normal <5.0 [facility] Comment on above: Order Comment: Speci men Type: BLOOD SPECIMENOrdering Facility: [facility] Address: [address] [place] [address] Result Comment: Nega tifilipe Performed By: #### 2 1198-7 ####[facility] LABCLIA [id number] [place] [address] [place] Bacteria Ur Culton 5 Bacteria identified Cx Nom (U) CULTURE, URINE: No growth (<1,000 CFU/ml) Normal [facility] Comment on above: Performed By: #### 6 30-4 ####[facility] LABCLIA [id number] [place] [address] [place] CBC W Auto Differential pane l (Bld)on 12-01-2024 Basophils (Bld) [#/Vol] 0.04 10*3/uL Normal <0.11 [facility] Comment on above: Order Comment: Speci men Type: BLOOD SPECIMENOrdering Facility: [facility] Address: [address] [place] [address] Performed By: #### 5 7021-8 ####[facility] LABCLIA [id number] [address] [place] Basophils/100 WBC (Bld) 0.6 % Normal [facility] Comment on above: Order Comment: Speci men Type: BLOOD SPECIMENOrdering Facility: [facility] Address: [address] [place] [address] Performed By: #### 5 7021-8 ####[facility] LABCLIA [id number] [address], [place] [address] [place] Differential cell count method Nom (Bld) Auto Normal [facility] Comment on above: Order Comment: Speci men Type: BLOOD SPECIMENOrdering Facility: [facility] Address: [address] [place] [address] Performed By: #### 5 7021-8 ####[facility] LABCLIA [id number] [address], [place] [address] [place] Eosinophils (Bld) [#/Vol] 0.05 10*3/uL Normal <0.46 [facility] Comment on above: Order Comment: Speci men Type: BLOOD SPECIMENOrdering Facility: [facility] Address: [address] [place] [address] Performed By: #### 5 7021-8 ####[facility] LABIA [id number] [address], [place] [address] [place] Eosinophils/100 WBC (Bld) 0.7 % Normal [facility] Comment on above: Order Comment: Speci men Type: BLOOD SPECIMENOrdering Facility: [facility] Address: [address] [place] [address] Performed By: #### 5 7021-8 ####[facility] LABCLIA [id number] [place] [address] [place] Erythrocyte distribution width (RBC) [Ratio] 12.6 % Normal 11.5-15.0 [facility] Comment on above: Order Comment: Speci men Type: BLOOD SPECIMENOrdering Facility: [facility] Address: [address] [place] [address] Performed By: #### 5 7021-8 ####[facility] LABCLIA [id number] [place] [id number] [place] Hematocrit (Bld) [Volume fraction] 41.9 % Normal 36.0-46.0 [facility] Comment on above: Order Comment: Speci men Type: BLOOD SPECIMENOrdering Facility: [facility] Address: [address] [place] [address] Performed By: #### 5 7021-8 ####[facility] LABCLIA [id number] [place] [address] [place] Hemoglobin (Bld) [Mass/Vol] 13.9 g/dL Normal 11.5-15.5 [facility] Comment on above: Order Comment: Speci men Type: BLOOD SPECIMENOrdering Facility: [facility] Address: [address] [place] [address] Performed By: #### 5 7021-8 ####[facility] LABCLIA [id number] [place] [address] [place] Immature granulocytes (Bld) [#/Vol] 10*3/uL Normal <0.10 [facility] Comment on above: Order Comment: Speci men Type: BLOOD SPECIMENOrdering Facility: [facility] Address: [address] [place] [address] Performed By: #### 5 7021-8 ####[facility] LABCLIA [id number] [place] [address] [place] Immature granulocytes/100 WBC (Bld) 0.1 % Normal [facility] Comment on above: Order Comment: Speci men Type: BLOOD SPECIMENOrdering Facility: [facility] Address: [address] [place] [address] Performed By: #### 5 7021-8 ####[facility] LABCLIA [id number] [place] [address] [place] Lymphocytes (Bld) [#/Vol] 1.72 10*3/uL Normal 1.00-4.00 [facility] Comment on above: Order Comment: Speci men Type: BLOOD SPECIMENOrdering Facility: [facility] Address: [address] [place] [address] Performed By: #### 5 7021-8 ####[facility] LABIA [id number] [place] [address] [place] Lymphocytes/100 WBC (Bld) 23.9 % Normal [facility] Comment on above: Order Comment: Speci men Type: BLOOD SPECIMENOrdering Facility: [facility] Address: [address] [place] [address] Performed By: #### 5 7021-8 ####[facility] LABIA [id number] [place] [address] [place] MCH (RBC) [Entitic mass] 32.3 pg Normal 26.0-34.0 [facility] Comment on above: Order Comment: Speci men Type: BLOOD SPECIMENOrdering Facility: [facility] Address: [address] [place] [address] Performed By: #### 5 7021-8 ####[facility] LABIA [id number] [place] [address] [place] MCHC (RBC) [Mass/Vol] 33.2 g/dL Normal 30.5-36.0 [facility] Comment on above: Order Comment: Speci men Type: BLOOD SPECIMENOrdering Facility: [facility] Address: [address] [place] [address] Performed By: #### 5 7021-8 ####[facility] LABCLIA [id number] [place] [address] [place] MCV (RBC) [Entitic vol] 97.2 fL Normal 80.0-100.0 [facility] Comment on above: Order Comment: Speci men Type: BLOOD SPECIMENOrdering Facility: [facility] Address: [address] [place] [address] Performed By: #### 5 7021-8 ####[facility] LABCLIA [id number] [facility] [address] [place] [address] [place] Monocytes (Bld) [#/Vol] 0.50 10*3/uL Normal <0.87 [facility] Comment on above: Order Comment: Speci men Type: BLOOD SPECIMENOrdering Facility: [facility] Address: [address] [place] [address] Performed By: #### 5 7021-8 ####[facility] LABCLIA [id number] [facility] [address], [facility] [place] Monocytes/100 WBC (Bld) 7.0 % Normal [facility] Comment on above: Order Comment: Speci men Type: BLOOD SPECIMENOrdering Facility: [facility] Address: [address] [place] [address] Performed By: #### 5 7021-8 ####[facility] LABCLIA [id number] [facility] [address], [place] [address] [place] Neutrophils (Bld) [#/Vol] 4.87 10*3/uL Normal 1.45-7.50 [facility] Comment on above: Order Comment: Speci men Type: BLOOD SPECIMENOrdering Facility: [facility] Address: [address] [place] [address] Performed By: #### 5 7021-8 ####[facility] LABCLIA [id number] [facility] [address], [facility] [place] Neutrophils/100 WBC (Bld) 67.7 % Normal [facility] Comment on above: Order Comment: Speci men Type: BLOOD SPECIMENOrdering Facility: [facility] Address: [address] [place] [address] Performed By: #### 5 7021-8 ####[facility] LABCLIA [id number] [facility] [address] [place] [address] [place] Nucleated RBC (Bld) [#/Vol] 10*3/uL Normal <0.01 [facility] Comment on above: Order Comment: Speci men Type: BLOOD SPECIMENOrdering Facility: [facility] Address: [facility] [place] [address] Performed By: #### 5 7021-8 ####[facility] LABIA [id number] [place] [address] [place] Nucleated RBC/100 WBC (Bld) [Ratio] 0.0 /[address] [facility] Comment on above: Order Comment: Speci men Type: BLOOD SPECIMENOrdering Facility: [facility] Address: [address] [place] [address] Performed By: #### 5 7021-8 ####[facility] LABIA [id number] [place] [address] [place] Platelet mean volume (Bld) [Entitic vol] 11.0 fL Normal 9.0-12.7 [facility] Comment on above: Order Comment: Speci men Type: BLOOD SPECIMENOrdering Facility: [facility] Address: [address] [place] [address] Performed By: #### 5 7021-8 ####[facility] LABIA [id number] [place] [address] [place] Platelets (Bld) [#/Vol] 215 10*3/uL Normal 150-400 [facility] Comment on above: Order Comment: Speci men Type: BLOOD SPECIMENOrdering Facility: [facility] Address: [address] [place] [address] Performed By: #### 5 7021-8 ####[facility] LABIA [id number] [place] [id number] [place] RBC (Bld) [#/Vol] 4.31 10*6/uL Normal 3.90-5.20 [facility] Comment on above: Order Comment: Speci men Type: BLOOD SPECIMENOrdering Facility: [facility] Address: [address] [place] [address] Performed By: #### 5 7021-8 ####[facility] LABCLIA [id number] [address] [place] [address] [place] WBC (Bld) [#/Vol] 7.19 10*3/uL Normal 3.70-11.00 [facility] Comment on above: Order Comment: Speci men Type: BLOOD SPECIMENOrdering Facility: [facility] Address: [address] [place] [address] Performed By: #### 5 7021-8 ####[facility] LABCLIA [id number] [address] [place] [address] [place] CNOVon 12-01-[address] [facility] Hepatic function 2000 panelo n 12-01-2024 Albumin [Mass/Vol] 4.6 g/dL Normal 3.9-4.9 [facility] Comment on above: Order Comment: Speci men Type: BLOOD SPECIMENOrdering Facility: [facility] Address: [address] [place] [address] Performed By: #### 2 4325-3 ####[facility] LABCLIA [id number] [place] [address] [place] ALP [Catalytic activity/Vol] 60 U/L Normal 34-123 [facility] Comment on above: Order Comment: Speci men Type: BLOOD SPECIMENOrdering Facility: [facility] Address: [address] [place] [address] Performed By: #### 2 4325-3 ####[facility] LABCLIA [id number] [address] [place] [address] [place] ALT [Catalytic activity/Vol] 9 U/L Normal 7-38 [facility] Comment on above: Order Comment: Speci men Type: BLOOD SPECIMENOrdering Facility: [facility] Address: [address] [place] [address] Performed By: #### 2 4325-3 ####[facility] LABCLIA [id number] [place] [address] [place] AST [Catalytic activity/Vol] 17 U/L Normal 13-35 [facility] Comment on above: Order Comment: Speci men Type: BLOOD SPECIMENOrdering Facility: [facility] Address: [address] [place] [address] Performed By: #### 2 4325-3 ####[facility] LABCLIA [id number] [place] [address] [place] Bilirubin [Mass/Vol] 0.6 mg/dL Normal 0.2-1.3 [facility] Comment on above: Order Comment: Speci men Type: BLOOD SPECIMENOrdering Facility: [facility] Address: [address] [place] [address] Performed By: #### 2 4325-3 ####[facility] LABIA [id number] [place] [address] [place] Bilirubin.conjugate d [Mass/Vol] 0.1 mg/dL Normal <0.3 [facility] Comment on above: Order Comment: Speci men Type: BLOOD SPECIMENOrdering Facility: [facility] Address: [address] [place] [address] Performed By: #### 2 4325-3 ####[facility] LABCLIA [id number] [place] [address] [place] Protein [Mass/Vol] 7.0 g/dL Normal 6.3-8.0 [facility] Comment on above: Order Comment: Speci men Type: BLOOD SPECIMENOrdering Facility: [facility] Address: [address] [place] [address] Performed By: #### 2 4325-3 ####[facility] LABCLIA [id number] [place] [address] [place] Heteroph Ab Ser Ql LAon 05-2 Heterophile Ab LA Ql (S) Negative Normal Negative [facility] Comment on above: Order Comment: Speci men Type: BLOOD SPECIMENOrdering Facility: [facility] Address: [address] [place] [address] Result Comment: Infe ctious Mononucleosis rapid test is used as an aid in diagnosis of acute infection with Jenny-Cheung virus (EBV). The antibody levels may occasionally remain elevated up to several months after a primary EBV infection. Final interpretation should be done in conjunction with EBV-specific serology and clinical correlation. False positive results may occasionally be seen with other infectious agents such as Cytomegalovirus, Toxoplasma, and HIV among others as well as non-infectious conditions such as lymphoma. Clinical correlation is required. Performed By: #### 5 213-4 ####[facility] LABCLIA [id number] [place] [address] [place] Urinalysis complete panel (U )on 12-01-2024 Bacteria LM.HPF (Urine sed) [#/Area] Negative Normal Negative [facility] Comment on above: Order Comment: Speci men Type: URINE SPECIMENOrdering Facility: [facility] Address: [address] [place] [address] Performed By: #### 2 4356-8 ####[facility] LABIA [id number] [place] [address] [place] Bilirubin Ql (U) Negative Normal Negative [facility] Comment on above: Order Comment: Speci men Type: URINE SPECIMENOrdering Facility: [facility] Address: [address] [place] [address] Performed By: #### 2 4356-8 ####[facility] LABCLIA [id number] [place] [id number] [place] Clarity (Unsp spec) Clear Normal Clear [facility] Comment on above: Order Comment: Speci men Type: URINE SPECIMENOrdering Facility: [facility] Address: [address] [place] [address] Performed By: #### 2 4356-8 ####[facility] LABCLIA [id number] [place] [id number] [place] Color (U) Yellow Normal Yellow [facility] Comment on above: Order Comment: Speci men Type: URINE SPECIMENOrdering Facility: [facility] Address: [address] [place] [address] Performed By: #### 2 4356-8 ####[facility] LABCLIA [id number] [place] [address] [place] Epithelial cells LM.HPF (Urine sed) [#/Area] None Seen Normal [facility] Comment on above: Order Comment: Speci men Type: URINE SPECIMENOrdering Facility: [facility] Address: [address] [place] [address] Performed By: #### 2 4356-8 ####[facility] LABCLIA [id number] [address] STATES [facility] Glucose Test strip (U) [Mass/Vol] Negative Normal Negative [facility] [facility] Comment on above: Order Comment: Speci men Type: URINE SPECIMENOrdering Facility: [facility] Address: [address] [place] [address] Performed By: #### 2 4356-8 ####[facility] LABCLIA [id number] [place] [address] [place] Hemoglobin Ql (U) Negative Normal Negative [facility] Comment on above: Order Comment: Speci men Type: URINE SPECIMENOrdering Facility: [facility] Address: [address] [place] [address] Performed By: #### 2 4356-8 ####[facility] LABCLIA [id number] [place] [id number] [place] Hyaline casts (Urine sed) [#/Area] 1-3 /LPF Abnormal 0 /LPF [facility] Comment on above: Order Comment: Speci men Type: URINE SPECIMENOrdering Facility: [facility] Address: [address] [place] [address] Performed By: #### 2 4356-8 ####[facility] LABCLIA [id number] [address] [place] [address] [place] Ketones Ql (U) Negative Normal Negative [facility] Comment on above: Order Comment: Speci men Type: URINE SPECIMENOrdering Facility: [facility] Address: [address] [place] [address] Performed By: #### 2 4356-8 ####[facility] LABCLIA [id number] [address], [place] [address] [place] Leukocyte esterase Test strip Ql (U) Negative Normal Negative [facility] Comment on above: Order Comment: Speci men Type: URINE SPECIMENOrdering Facility: [facility] Address: [address] [place] [address] Performed By: #### 2 4356-8 ####[facility] LABCLIA [id number] [place] [address] [place] Nitrite Ql (U) Negative Normal Negative [facility] Comment on above: Order Comment: Speci men Type: URINE SPECIMENOrdering Facility: [facility] Address: [address] [place] [address] Performed By: #### 2 4356-8 ####[facility] LABCLIA [id number] [address], [place] [address] [place] pH (U) 6.5 [pH] Normal <8.5 [facility] Comment on above: Order Comment: Speci men Type: URINE SPECIMENOrdering Facility: [facility] Address: [address] [place] [address] Performed By: #### 2 4356-8 ####[facility] LABCLIA [id number] [place] [address] [place] Protein (U) [Mass/Vol] Negative Normal Negative [facility] Comment on above: Order Comment: Speci men Type: URINE SPECIMENOrdering Facility: [facility] Address: [address] [place] [address] Performed By: #### 2 4356-8 ####[facility] LABIA [id number] [place] [address] [place] RBC LM.HPF (Urine sed) [#/Area] 0-2 /HPF Normal 0-2 /HPF [facility] Comment on above: Order Comment: Speci men Type: URINE SPECIMENOrdering Facility: [facility] Address: [address] [place] [address] Performed By: #### 2 4356-8 ####[facility] LABIA [id number] [place] [address] [place] Specific gravity (U) [Rel density] 1.007 Normal 1.005-1.030 [facility] Comment on above: Order Comment: Speci men Type: URINE SPECIMENOrdering Facility: [facility] Address: [address] [place] [address] Performed By: #### 2 4356-8 ####[facility] LABIA [id number] [address] [place] Urobilinogen Ql (U) 0.2 EU/dL Normal 0.2-1.0 EU/dL [facility] Comment on above: Order Comment: Speci men Type: URINE SPECIMENOrdering Facility: [facility] Address: [address] [place] [address] Performed By: #### 2 4356-8 ####[facility] LABIA [id number] [place] [address] [place] WBC LM.HPF (Urine sed) [#/Area] 0-5 /HPF Normal 0-5 /HPF [facility] Comment on above: Order Comment: Speci men Type: URINE SPECIMENOrdering Facility: [facility] Address: [address] [place] [address] Performed By: #### 2 4356-8 ####[facility] LABIA [id number] [address] [place] XR CHEST 2V FRONTAL/LATon XR CHEST 2V FRONTAL/LAT Normal [facility] ACTIVATED PARTIAL THROMBOPLA STIN TIMEOrdered By: Milvia Villavicencio on 11-25-2024 aPTT Coag (PPP) [Time] 28.9 s [facility] Bacteria Ur Culton Bacteria identified Cx Nom (U) CULTURE, URINE: Mixed microbiota, including predominantly: ORGANISM ID: 1 10,000 -<50,000 CFU/ml Streptococcus anginosus No susceptibility testing done. Normal [facility] Comment on above: Performed By: #### 6 30-4 ####[facility] LABCLIA [id number] [place] [address] [place] CBC W Auto Differential pane l (Bld)on 11-25-2024 Basophils (Bld) [#/Vol] 0.03 10*3/uL Normal <0.11 [facility] Comment on above: Order Comment: Speci men Type: BLOOD SPECIMENOrdering Facility: [facility] Address: [address] [place] [address] Performed By: #### 5 7021-8 ####[facility] LABCLIA [id number] [address] [place] Basophils/100 WBC (Bld) 0.3 % Normal [facility] Comment on above: Order Comment: Speci men Type: BLOOD SPECIMENOrdering Facility: [facility] Address: [address] [place] [address] Performed By: #### 5 7021-8 ####[facility] LABCLIA [id number] [address] [place] Differential cell count method Nom (Bld) Auto Normal [facility] Comment on above: Order Comment: Speci men Type: BLOOD SPECIMENOrdering Facility: [facility] Address: [address] [place] [address] Performed By: #### 5 7021-8 ####[facility] LABCLIA [id number] [place] [address] [place] Eosinophils (Bld) [#/Vol] 0.05 10*3/uL Normal <0.46 [facility] Comment on above: Order Comment: Speci men Type: BLOOD SPECIMENOrdering Facility: [facility] Address: [address] [place] [address] Performed By: #### 5 7021-8 ####[facility] LABCLIA [id number] [place] [address] [place] Eosinophils/100 WBC (Bld) 0.5 % Normal [facility] Comment on above: Order Comment: Speci men Type: BLOOD SPECIMENOrdering Facility: [facility] Address: [address] [place] [address] Performed By: #### 5 7021-8 ####[facility] LABCLIA [id number] [place] [address] [place] Erythrocyte distribution width (RBC) [Ratio] 12.8 % Normal 11.5-15.0 [facility] Comment on above: Order Comment: Speci men Type: BLOOD SPECIMENOrdering Facility: [facility] Address: [address] [place] [address] Performed By: #### 5 7021-8 ####[facility] LABCLIA [id number] [place] [address] [place] Hematocrit (Bld) [Volume fraction] 42.3 % Normal 36.0-46.0 [facility] Comment on above: Order Comment: Speci men Type: BLOOD SPECIMENOrdering Facility: [facility] Address: [address] [place] [address] Performed By: #### 5 7021-8 ####[facility] LABCLIA [id number] [place] [id number] [place] Hemoglobin (Bld) [Mass/Vol] 14.1 g/dL Normal 11.5-15.5 [facility] Comment on above: Order Comment: Speci men Type: BLOOD SPECIMENOrdering Facility: [facility] Address: [address] [place] [address] Performed By: #### 5 7021-8 ####[facility] LABCLIA [id number] [address] [place] [address] [place] Immature granulocytes (Bld) [#/Vol] 10*3/uL Normal <0.10 [facility] Comment on above: Order Comment: Speci men Type: BLOOD SPECIMENOrdering Facility: [facility] Address: [address] [place] [address] Performed By: #### 5 7021-8 ####[facility] LABCLIA [id number] [place] [address] [place] Immature granulocytes/100 WBC (Bld) 0.2 % Normal [facility] Comment on above: Order Comment: Speci men Type: BLOOD SPECIMENOrdering Facility: [facility] Address: [address] [place] [address] Performed By: #### 5 7021-8 ####[facility] LABCLIA [id number] [place] [address] [place] Lymphocytes (Bld) [#/Vol] 1.92 10*3/uL Normal 1.00-4.00 [facility] Comment on above: Order Comment: Speci men Type: BLOOD SPECIMENOrdering Facility: [facility] Address: [address] [place] [address] Performed By: #### 5 7021-8 ####[facility] LABCLIA [id number] [place] [address] [place] Lymphocytes/100 WBC (Bld) 19.5 % Normal [facility] Comment on above: Order Comment: Speci men Type: BLOOD SPECIMENOrdering Facility: [facility] Address: [address] [place] [address] Performed By: #### 5 7021-8 ####[facility] LABIA [id number] [place] [address] [place] MCH (RBC) [Entitic mass] 31.8 pg Normal 26.0-34.0 [facility] Comment on above: Order Comment: Speci men Type: BLOOD SPECIMENOrdering Facility: [facility] Address: [address] [place] [address] Performed By: #### 5 7021-8 ####[facility] LABIA [id number] [place] [address] [place] MCHC (RBC) [Mass/Vol] 33.3 g/dL Normal 30.5-36.0 [facility] Comment on above: Order Comment: Speci men Type: BLOOD SPECIMENOrdering Facility: [facility] Address: [address] [place] [address] Performed By: #### 5 7021-8 ####[facility] [id number] [place] [address] [place] MCV (RBC) [Entitic vol] 95.5 fL Normal 80.0-100.0 [facility] Comment on above: Order Comment: Speci men Type: BLOOD SPECIMENOrdering Facility: [facility] Address: [address] [place] [address] Performed By: #### 5 7021-8 ####[facility] [id number] [place] [address] [place] Monocytes (Bld) [#/Vol] 0.67 10*3/uL Normal <0.87 [facility] Comment on above: Order Comment: Speci men Type: BLOOD SPECIMENOrdering Facility: [facility] Address: [address] [place] [address] Performed By: #### 5 7021-8 ####[facility] LABIA [id number] [address] [place] Monocytes/100 WBC (Bld) 6.8 % Normal [facility] Comment on above: Order Comment: Speci men Type: BLOOD SPECIMENOrdering Facility: [facility] Address: [address] [place] [address] Performed By: #### 5 7021-8 ####[facility] LABCLIA [id number] [place] [id number] [place] Neutrophils (Bld) [#/Vol] 7.17 10*3/uL Normal 1.45-7.50 [facility] Comment on above: Order Comment: Speci men Type: BLOOD SPECIMENOrdering Facility: [facility] Address: [address] [place] [address] Performed By: #### 5 7021-8 ####[facility] LABCLIA [id number] [place] [address] [place] Neutrophils/100 WBC (Bld) 72.7 % Normal [facility] Comment on above: Order Comment: Speci men Type: BLOOD SPECIMENOrdering Facility: [facility] Address: [address] [place] [address] Performed By: #### 5 7021-8 ####[facility] LABCLIA [id number] [place] [address] [place] Nucleated RBC (Bld) [#/Vol] 10*3/uL Normal <0.01 [facility] Comment on above: Order Comment: Speci men Type: BLOOD SPECIMENOrdering Facility: [facility] Address: [address] [place] [address] Performed By: #### 5 7021-8 ####[facility] LABCLIA [id number] [place] [address] [place] Nucleated RBC/100 WBC (Bld) [Ratio] 0.0 /[address] [facility] Comment on above: Order Comment: Speci men Type: BLOOD SPECIMENOrdering Facility: [facility] Address: [address] [place] [address] Performed By: #### 5 7021-8 ####[facility] LABCLIA [id number] [address] [place] [address] [place] Platelet mean volume (Bld) [Entitic vol] 11.0 fL Normal 9.0-12.7 [facility] Comment on above: Order Comment: Speci men Type: BLOOD SPECIMENOrdering Facility: [facility] Address: [address] [place] [address] Performed By: #### 5 7021-8 ####[facility] LABCLIA [id number] [address] [place] [address] [place] Platelets (Bld) [#/Vol] 218 10*3/uL Normal 150-400 [facility] Comment on above: Order Comment: Speci men Type: BLOOD SPECIMENOrdering Facility: [facility] Address: [address] [place] [address] Performed By: #### 5 7021-8 ####[facility] LABIA [id number] [address] [place] [address] [place] RBC (Bld) [#/Vol] 4.43 10*6/uL Normal 3.90-5.20 [facility] Comment on above: Order Comment: Speci men Type: BLOOD SPECIMENOrdering Facility: [facility] Address: [address] [place] [address] Performed By: #### 5 7021-8 ####[facility] LABCLIA [id number] [address] [place] [address] [place] WBC (Bld) [#/Vol] 9.86 10*3/uL Normal 3.70-11.00 [facility] Comment on above: Order Comment: Speci men Type: BLOOD SPECIMENOrdering Facility: [facility] Address: [address] [place] [address] Performed By: #### 5 7021-8 ####[facility] LABCLIA [id number] [address] [address] [place] CNOVon 11-25-[address] [facility] Comprehensive metabolic 2000 panelon 11-25-2024 Albumin [Mass/Vol] 4.8 g/dL Normal 3.9-4.9 [facility] Comment on above: Order Comment: Speci men Type: BLOOD SPECIMENOrdering Facility: [facility] Address: [address] [place] [address] Performed By: #### Henri GODINEZ, 3015-3, 79837-8 ####[facility] LABCLIA [id number] [place] [id number] [place] ALP [Catalytic activity/Vol] 64 U/L Normal 34-123 [facility] Comment on above: Order Comment: Speci men Type: BLOOD SPECIMENOrdering Facility: [facility] Address: [address] [place] [address] Performed By: #### Henri GODINEZ, 3015-3, 32790-0 ####[facility] LABIA [id number] [place] [id number] [place] ALT [Catalytic activity/Vol] 10 U/L Normal 7-38 [facility] Comment on above: Order Comment: Speci men Type: BLOOD SPECIMENOrdering Facility: [facility] Address: [address] [place] [address] Performed By: #### Henri GODINEZ, 3015-3, 53865-0 ####[facility] LABIA [id number] [address] [place] [address] [place] Anion gap [Moles/Vol] 13 mmol/L Normal 8-15 [facility] Comment on above: Order Comment: Speci men Type: BLOOD SPECIMENOrdering Facility: [facility] Address: [address] [place] [address] Performed By: #### Henri GODINEZ, 6-3, 30573-9 ####[facility] LABIA [id number] [address] [place] [address] [place] AST [Catalytic activity/Vol] 14 U/L Normal 13-35 [facility] Comment on above: Order Comment: Speci men Type: BLOOD SPECIMENOrdering Facility: [facility] Address: [address] [place] [address] Performed By: #### Henri GODINEZ, 3, ####[facility] LABCLIA [id number] [address] [address] [place] Bilirubin [Mass/Vol] 0.4 mg/dL Normal 0.2-1.3 [facility] Comment on above: Order Comment: Speci men Type: BLOOD SPECIMENOrdering Facility: [facility] Address: [address] [place] [address] Performed By: #### Henri GODINEZ, 3015-09, ####[facility] LABCLIA [id number] [place] [address] [place] Calcium [Mass/Vol] 10.0 mg/dL Normal 8.5-10.2 [facility] Comment on above: Order Comment: Speci men Type: BLOOD SPECIMENOrdering Facility: [facility] Address: [address] [place] [address] Performed By: #### Henri GODINEZ, 3015-09, ####[facility] LABCLIA [id number] [place] [address] [place] Chloride [Moles/Vol] 107 mmol/L Normal 98-107 [facility] Comment on above: Order Comment: Speci men Type: BLOOD SPECIMENOrdering Facility: [facility] Address: [address] [place], [place] [address] Performed By: #### Henri GODINEZ, 3015-09, ####[facility] LABCLIA [id number] [address] [place] [address] [place] CO2 [Moles/Vol] 22 mmol/L Normal 22-30 [facility] Comment on above: Order Comment: Speci men Type: BLOOD SPECIMENOrdering Facility: [facility] Address: [address] [place] [address] Performed By: #### T 4FTI, 3015-3, ####[facility] LABCLIA [id number] [address] [address] [place] Creatinine [Mass/Vol] 0.56 mg/dL Low 0.58-0.96 [facility] Comment on above: Order Comment: Speci men Type: BLOOD SPECIMENOrdering Facility: [facility] Address: [address] [place], [place] [address] Performed By: #### T 4FTI, 3015-, ####[facility] LABIA [id number] [address] [address] [place] Creatinine and Glomerular filtration rate.predicted panel (S/P/Bld) 133 mL/min/1.73m??? Normal >=60 [facility] Comment on above: Order Comment: Speci men Type: BLOOD SPECIMENOrdering Facility: [facility] Address: [address] [place] [address] Result Comment: Dylan mated Glomerular Filtration Rate (eGFR) is calculated using the 2020 CKD-EPI creatinine equation. This equation utilizes serum creatinine, sex, and age as parameters. The creatinine assay has traceable calibration to isotope dilution-mass spectrometry. Refer to KDIGO guidelines for clinical interpretation. In patients with unstable renal function, e.g. those with acute kidney injury, the eGFR may not accurately reflect actual GFR. Performed By: #### T 4FTI, 3015-3, ####[facility] LABIA [id number] [address] [address] [place] Glucose [Mass/Vol] 82 mg/dL Normal 74-99 [facility] Comment on above: Order Comment: Speci men Type: BLOOD SPECIMENOrdering Facility: [facility] Address: [address] [place], [place] [address] Result Comment: The [place] [employer] (ADA) provides guidance for cutoff values for fasting glucose and random glucose. The ADA defines fasting as no caloric intake for at least 8 hours. Fasting plasma glucose results between 100 to 125 mg/dL indicate increased risk for diabetes (prediabetes).Fasting plasma glucose results greater than or equal to 126 mg/dL meet the criteria for diagnosis of diabetes. In the absence of unequivocal hyperglycemia, results should be confirmed by repeat testing. In a patient with classic symptoms of hyperglycemia or hyperglycemic crisis, random plasma glucose results greater than or equal to 200 mg/dL meet the criteria for diagnosis of diabetes.Reference: Standards of Medical Care in Diabetes 2016, [place] [employer]. Diabetes Care. 2016.39(Suppl 1). Performed By: #### T 4FTI, 6-3, 75555-9 ####[facility] LABIA [id number] [place] [address] [place] Potassium [Moles/Vol] 4.5 mmol/L Normal 3.7-5.1 [facility] Comment on above: Order Comment: Speci men Type: BLOOD SPECIMENOrdering Facility: [facility] Address: [address] [place] [address] Performed By: #### T 4FTI, 6-3, 76264-9 ####[facility] LABIA [id number] [place] [address] [place] Protein [Mass/Vol] 7.3 g/dL Normal 6.3-8.0 [facility] Comment on above: Order Comment: Speci men Type: BLOOD SPECIMENOrdering Facility: [facility] Address: [address] [place] [address] Performed By: #### T 4FTI, 6-3, 88275-9 ####[facility] LABIA [id number] [place] [id number] [place] Sodium [Moles/Vol] 142 mmol/L Normal 136-144 [facility] Comment on above: Order Comment: Speci men Type: BLOOD SPECIMENOrdering Facility: [facility] Address: [address] [place] [address] Performed By: #### T 4FTI, 3016-3, 24305-9 ####[facility] LABCLIA [id number] [address] [place] [address] [place] Urea nitrogen [Mass/Vol] 8 mg/dL Normal 7-21 [facility] Comment on above: Order Comment: Speci men Type: BLOOD SPECIMENOrdering Facility: [facility] Address: [address] [place] [address] Performed By: #### T 4FTI, 3016-3, 62490-0 ####[facility] LABCLIA [id number] [address], [facility] [place] JENNY CHEUNG PANELon 025 EBV NA AB, QUAL Positive Abnormal Negative [facility] Comment on above: Order Comment: Speci men Type: BLOOD SPECIMENOrdering Facility: [facility] Address: [address] [place] [address] Performed By: #### E BVPNL ####[facility] LABCLIA [id number] [address], [facility] [place] EBV VCA IGG, QUAL Positive Abnormal Negative [facility] Comment on above: Order Comment: Speci men Type: BLOOD SPECIMENOrdering Facility: [facility] Address: [address] [place] [address] Performed By: #### E BVPNL ####[facility] LABCLIA [id number] [address] [place] [address] [place] EBV VCA IGM, QUAL Negative Normal Negative [facility] Comment on above: Order Comment: Speci men Type: BLOOD SPECIMENOrdering Facility: [facility] Address: [address] [place] [address] Performed By: #### E BVPNL ####[facility] LABCLIA [id number] [address] [place] [address] [place] INTERPRETATION (EBVPNL) Normal [facility] Comment on above: Order Comment: Speci men Type: BLOOD SPECIMENOrdering Facility: [facility] Address: [address] [place] [address] Performed By: #### E BVPNL ####[facility] LABCLIA [id number] [facility] [place] [address] [place] No Panel Informationon 11-25 Interpretation and review of laboratory results Normal [facility] PT panel Coag (PPP)on 2024 INR Coag (PPP) [Relative time] 1.1 {INR} 0.9 - 1.3 [facility] Comment on above: Vitamin K Antagonist (VKA) Therapeutic Range: INR 2 to 3 (Target INR of 2.5) Note: For patients treated with VKA drugs, such as warfarin, the [place] [employer] 2012 Guideline recommends a therapeutic INR range of 2 to 3 (target INR of 2.5). This recommendation includes high-risk patients with antiphospholipid syndrome with previous arterial or venous thromboembolism, current-generation mechanical or bioprosthetic aortic heart valve replacement. Note: Patients with mechanical aortic valve replacement and additional risk factors for thromboembolic events (atrial fibrillation, previous thromboembolism, LV dysfunction, hypercoagulable conditions) or an older generation mechanical AVR (i.e., ball in-Cage) or any mechanical MVR should have a INR therapeutic range of 2.5 to 3.5 (target INR of 3). Maria M HA, et al. Chest 2012, 141:7S-47S Casper RA, et al. [facility] 2017, 70: 252-289 PT Coag (PPP) [Time] 11.4 s [facility] INR Coag (PPP) [Relative time] 1.1 {INR} Normal 0.9-1.3 [facility] Comment on above: Order Comment: Nabeel montero Type: BLOOD SPECIMENOrdering Facility: [facility] Address: [address] [place] [id number] Result Comment: Angelica min K Antagonist (VKA) Therapeutic Range: INR 2 to 3 (Target INR of 2.5)Note: For patients treated with VKA drugs, such as warfarin, the [place] [employer] 2012 Guideline recommends a therapeutic INR range of 2 to 3 (target INR of 2.5). This recommendation includes high-risk patients with antiphospholipid syndrome with previous arterial or venous thromboembolism, current-generation mechanical or bioprosthetic aortic heart valve replacement.Note: Patients with mechanical aortic valve replacement and additional risk factors for thromboembolic events (atrial fibrillation, previous thromboembolism, LV dysfunction, hypercoagulable conditions) or an older generation mechanical AVR (i.e., ball in-Cage) or any mechanical MVR should have a INR therapeutic range of 2.5 to 3.5 (target INR of 3).Maria M GH, et al. Chest 2012, 141:7S-47SNishimura RA, et al. [facility] 2017, 70: 252-289 Performed By: #### 1 4979-9, 00711-7 ####[facility] [id number] [place] [address] [place] PT Coag (PPP) [Time] 11.4 s Normal 9.7-13.0 [facility] Comment on above: Order Comment: Nabeel montero Type: BLOOD SPECIMENOrdering Facility: [facility] Address: [address] [place] [address] Performed By: #### 1 4979-9, 89185-8 ####[facility] [id number] [place] [address] [place] T4/FTI/T4Uon 11-25-2024 FTI 6.9 ug/dL Normal 5.3-10.8 [facility] Comment on above: Order Comment: Nabeel montero Type: BLOOD SPECIMENOrdering Facility: [facility] Address: [address] [place] [address] Performed By: #### T 4FTI, 3016-3, 69621-3 ####[facility] [id number] [place] [address] [place] T4 [Mass/Vol] 6.8 ug/dL Normal 5.5-10.2 [facility] Comment on above: Order Comment: Nabeel montero Type: BLOOD SPECIMENOrdering Facility: [facility] Address: [address] [place], [place] [address] Performed By: #### T 4FYOLI, 3016-3, 73190-7 ####[facility] LABIA [id number] [place] [id number] [place] T4 uptake [Mass/Vol] 0.98 Normal 0.91-1.19 [facility] Comment on above: Order Comment: Speci men Type: BLOOD SPECIMENOrdering Facility: [facility] Address: [address] [place] [address] Performed By: #### T 4FYOLI, 6-3, 70476-6 ####[facility] [id number] [place] [address] [place] TSH SerPl-aCncon 11-25-2024 TSH Qn 0.701 m[IU]/L Normal 0.270-4.200 [facility] Comment on above: Order Comment: Speci men Type: BLOOD SPECIMENOrdering Facility: [facility] Address: [address] [place] [address] Result Comment: If t he patient is , TSH reference range varies by gestational period:First Trimester (weeks 9-12): 0.180-2.990 mIU/LSecond Trimester: 0.110-3.980 mIU/LThird Trimester: 0.480-4.710 mIU/Cassie Enrique et al. A Practical Approach for the Verifications and Determination of Site- and Trimester-Specific Reference Intervals for Thyroid Function tests in . Thyroid, 2019:29:3:412-420. Joe Bush, et al. 2017 Guidelines of the [place] [employer] for the Diagnosis and Management of Thyroid Disease during and the . Thyroid, 2017:27:3:315-389. Performed By: #### T 4FYOLI, 3016-3, 71574-3 ####[facility]IA [id number] [place] [id number] [place] Urinalysis complete panel (U )on 11-25-2024 Bacteria LM.HPF (Urine sed) [#/Area] Negative Normal Negative [facility] Comment on above: Order Comment: Speci men Type: URINE SPECIMENOrdering Facility: [facility] Address: [facility] [place] [address] Performed By: #### 2 4356-8 ####[facility] LABCLIA [id number] [address] [place] [address] [place] Bilirubin Ql (U) Negative Normal Negative [facility] Comment on above: Order Comment: Speci men Type: URINE SPECIMENOrdering Facility: [facility] Address: [address] [place] [address] Performed By: #### 2 4356-8 ####[facility] LABCLIA [id number] [address], [place] [address] [place] Clarity (Unsp spec) Clear Normal Clear [facility] Comment on above: Order Comment: Speci men Type: URINE SPECIMENOrdering Facility: [facility] Address: [address] [place] [address] Performed By: #### 2 4356-8 ####[facility] LABCLIA [id number] [address], [facility] [place] Color (U) Yellow Normal Yellow [facility] Comment on above: Order Comment: Speci men Type: URINE SPECIMENOrdering Facility: [facility] Address: [address] [place] [address] Performed By: #### 2 4356-8 ####[facility] LABCLIA [id number] [address], [facility] [place] Epithelial cells LM.HPF (Urine sed) [#/Area] Few Normal [facility] Comment on above: Order Comment: Speci men Type: URINE SPECIMENOrdering Facility: [facility] Address: [address] [place] [address] Performed By: #### 2 4356-8 ####[facility] LABCLIA [id number] [address], [facility] [place] Glucose Test strip (U) [Mass/Vol] Negative Normal Negative [facility] Comment on above: Order Comment: Speci men Type: URINE SPECIMENOrdering Facility: [facility] Address: [address] [place] [address] Performed By: #### 2 4356-8 ####[facility] LABCLIA [id number] [place] [address] [place] Hemoglobin Ql (U) Negative Normal Negative [facility] Comment on above: Order Comment: Speci men Type: URINE SPECIMENOrdering Facility: [facility] Address: [address] [place] [address] Performed By: #### 2 4356-8 ####[facility] LABCLIA [id number] [place] [address] [place] Hyaline casts (Urine sed) [#/Area] 1-3 /LPF Abnormal 0 /LPF [facility] Comment on above: Order Comment: Speci men Type: URINE SPECIMENOrdering Facility: [facility] Address: [address] [place] [address] Performed By: #### 2 4356-8 ####[facility] LABCLIA [id number] [place] [address] [place] Ketones Ql (U) Trace Abnormal Negative [facility] Comment on above: Order Comment: Speci men Type: URINE SPECIMENOrdering Facility: [facility] Address: [address] [place] [address] Performed By: #### 2 4356-8 ####[facility] LABCLIA [id number] [place] [address] [place] Leukocyte esterase Test strip Ql (U) Negative Normal Negative [facility] Comment on above: Order Comment: Speci men Type: URINE SPECIMENOrdering Facility: [facility] Address: [address] [place] [address] Performed By: #### 2 4356-8 ####[facility] LABCLIA [id number] [place] [address] [place] Nitrite Ql (U) Negative Normal Negative [facility] Comment on above: Order Comment: Speci men Type: URINE SPECIMENOrdering Facility: [facility] Address: [address] [place] [address] Performed By: #### 2 4356-8 ####[facility]IA [id number] [place] [address] [place] pH (U) 6.0 [pH] Normal <8.5 [facility] Comment on above: Order Comment: Speci men Type: URINE SPECIMENOrdering Facility: [facility] Address: [address] [place] [address] Performed By: #### 2 4356-8 ####[facility] [id number] [place] [address] [place] Protein (U) [Mass/Vol] Negative Normal Negative [facility] Comment on above: Order Comment: Speci men Type: URINE SPECIMENOrdering Facility: [facility] Address: [address] [place] [address] Performed By: #### 2 4356-8 ####[facility]IA [id number] [place] [address] [place] RBC LM.HPF (Urine sed) [#/Area] 0-2 /HPF Normal 0-2 /HPF [facility] Comment on above: Order Comment: Speci men Type: URINE SPECIMENOrdering Facility: [facility] Address: [address] [place] [address] Performed By: #### 2 4356-8 ####[facility] LABIA [id number] [place] [address] [place] Specific gravity (U) [Rel density] 1.010 Normal 1.005-1.030 [facility] Comment on above: Order Comment: Speci men Type: URINE SPECIMENOrdering Facility: [facility] Address: [address] [place] [address] Performed By: #### 2 4356-8 ####[facility] [id number] [place] [address] [place] Urobilinogen Ql (U) 0.2 EU/dL Normal 0.2-1.0 EU/dL Cl [facility] Comment on above: Order Comment: Speci men Type: URINE SPECIMENOrdering Facility: [facility] Address: [address] [place] [address] Performed By: #### 2 4356-8 ####[facility] [id number] [place] [address] [place] WBC LM.HPF (Urine sed) [#/Area] 0-5 /HPF Normal 0-5 /HPF [facility] Comment on above: Order Comment: Speci men Type: URINE SPECIMENOrdering Facility: [facility] Address: [address] [place] [address] Performed By: #### 2 4356-8 ####[facility] [id number] [place] [address] [place] aPTT Coag (PPP) [Time]Ordere d By: Milvia Villavicencio on 11-25-2024 Frozen Plasma Aliquo t Unfractionated Heparin Therapeutic Ranges: Standard Heparin Nomogram: 53 to 78 seconds (anti-Xa level of 0.3 to 0.7 U/ml) Low Dose/ACS Nomogram: 49 to 67 seconds (anti-Xa level of 0.2 to 0.5 U/ml) Stroke Treatment Nomogram: 49 to 67 seconds (anti-Xa level of 0.2 to 0.5 U/ml) Note: The APTT therapeutic range has been determined for the current lot of laboratory APTT reagent in use throughout the [facility]. [facility] aPTT PPPon 11-25-2024 aPTT Coag (PPP) [Time] 28.9 s Normal 23.0-32.4 [facility] Comment on above: Order Comment: Speci men Type: BLOOD SPECIMENOrdering Facility: [facility] Address: [address] [place] [address] Performed By: #### 1 4979-9, 48281-6 ####[facility] LABCLIA [id number] [place] [address] [place] MR/BMS.BPon 11-21-2024 MR/BMS.BP [address], [address] [place] [address] OFFICE VISIT Date of Service: 11/21/24 MR#: [id number] Acct: [id number] Name: DORY ANDREWS GREG Rep #: [id number] : 2000 Provider: Dr. Hakeem Izaguirre se, DO Age/Sex: 23/F Location: [facility].BP Status: Signed Intake Vital Signs 09/12/24 15:04 09/22/24 18:44 11/21/24 11:34 Height 5 ft 2 in 5 ft 2 in 5 ft 2 in Weight: 125 lb BMI 22.8 BP 100/61 107/67 Blood Pressure Location Lt brachial Lt brachial Position Sitting Sitting Respiration 16 16 Pulse 72 84 Pulse Source Monitor Monitor BP Intake Visit Reasons: 3 M FU Accompanied by: Self Allergies Quinolones Allergy (Verified 11/21/24 11:36) PT UNSURE OF REACTION Medications ???Medication ???Instructions ???Recorded ???Confirmed ???Type norethindrone acetate 5 mg tablet 5 mg PO QDAY 09/05/24 11/21/24 Hi story Compression Stockings Knee High #1 ea 09/06/24 11/21/24 Rx methocarbamol 500 mg tablet 500 mg PO Q8H PRN pain (scale 09/1011/21/24 Rx score 7-10) #20 tabs prednisone 20 mg tablet 20 mg PO DAILY #5 tabs 09/22/24 Rx lorazepam 0.5 mg tablet 0.5 mg PO QHS PRN anxiety #30 tabs 11/21/24 11/21/24 Rx valacyclovir 500 mg tablet 500 mg PO QDAY 11/21/24 11/21/24 H istory PFSH Medical History Chronic gastritis Former smoker depression History of anorexia nervosa Vitamin B12 deficiency Abdominal bloating Constipation History of marijuana use Generalized anxiety disorder Bipolar 1 disorder, depressed, moderate PTSD (post-traumatic stress disorder) Tobacco abuse Osteopenia GERD (gastroesophageal reflux disease) Asthma Migraines ( 12/08/23) Alcohol withdrawal Desire for detoxification History of cocaine use Alcohol use disorder Surgical History History of surgery Family History Other Alcoholism Anxiety Arthritis Asthma COPD (chronic obstructive pulmonary disease) Depression High cholesterol Schizophrenia Social History (Updated 09/05/24 @ 15:51 by Wade Wilcox [employer], [employer]C) Smoking Status: Current every day smoker tobacco type: e-cigarettes alcohol intake: current alcohol intake frequency: a few times a week Previous attempts at quittin details: 3 drinks per week substance use type: does not use HPI History of Present Illness History provided by: patient HPI: Dory Andrews is a 23 year old female who presents today for follow up evaluation. Was subpoenaed to testify next week in jury trial regarding assault case against her ex. Anxiety has been somewhat better as it may not go to trial due to a plea deal, but she won't know this until the near future. Still has been fairly severe in recent past. Does feel like depression has been largely well controlled. Does feel like she has been restricting her eating more in recent past. Is likely eating somewhere around 500-800 calories per day. Was over exercising but has reduced this. Has lost about 10 lbs since start of the year. Continues to follow through [facility] for therapy. Review of Systems Constitutional Reports: fatigue; Denies: fever(s), chills or change in weight Eyes Denies: change in vision or blurry vision Ears, Nose, Mouth, Throat Denies: throat pain, neck pain or change in hearing Cardiovascular Denies: chest pain, palpitations or dyspnea Respiratory Denies: dyspnea, cough or wheezing Gastrointestinal Reports: abdominal pain, diarrhea and other (Reduction in appetite); Denies: constipation Genitourinary Denies: dysuria or urinary frequency Musculoskeletal Reports: joint pain; Denies: back pain, neck pain or muscle weakness Integumentary/Breast Denies: rash or new lesions Neurological Denies: headache(s), dizziness or confusion Endocrine Reports: fatigue; Denies: excessive sweating Hematologic/Lymphatic Denies: easy bruising or easy bleeding Allergic/Immunologic Denies: wheezing Exam Mental Status Exam - Psych Appearance casually dressed Attitude guarded Activity/Motor Behavior MSE activity/motor behavior finding no adventitious movements and staring Speech regular rate, regular prosody and soft Mood anxious Affect restricted Thought Process linear, logical and coherent Thought Content no delusions and no hallucinations Suicidal Ideation none Homicidal Ideation none Attention intact Concentration intact Sensorium/Orientation awake, alert and oriented x3 Memory/Cognition other (appropriate for stated age) Insight fair Judgement questionable Assessment Plan Assessment Plan (1) PTSD (post-traumatic stress disorder): Plan: - Some exacerba (more content not included)... Normal [facility] CNOVon 10-18-[address] [facility] CNOVon 10-17-[address] [facility] BACTERIAL VAGINOSIS NAATon 0 10-14-2024 Lactobacillus crispatus+gasseri+j ensenii + Gardnerella vaginalis + Atopobium vaginae rRNA YAYO+probe Ql (Vag fld) Not detected Normal Not detected [facility] Comment on above: Order Comment: Speci men Type: SWABOrdering Facility: [facility] Address: [address] [place] [address] Performed By: #### C VTV, BVAMP ####[facility] LABCLIA [id number] [address] [place] LUANA/TRICHOMONAS NAATon 0 10-14-2024 C. glabrata RNA YAYO+probe Ql (Vag fld) Not detected Normal Not detected [facility] Comment on above: Order Comment: Speci men Type: SWABOrdering Facility: [facility] Address: [address] [place] [address] Performed By: #### C VTV, BVAMP ####[facility] LABCLIA [id number] [place] [address] [place] Luana sp DNA YAYO+probe Ql (Vag fld) Detected Abnormal Not detected [facility] Comment on above: Order Comment: Speci men Type: SWABOrdering Facility: [facility] Address: [address] [place] [address] Result Comment: The Luana species group target includes C. albicans, C. tropicalis, C. parapsilosis, and C. dubliniensis. Performed By: #### C VTV, BVAMP ####[facility] LABCLIA [id number] [address] [place] T. vaginalis DNA YAYO+probe Ql (Unsp spec) Not detected Normal Not detected [facility] Comment on above: Order Comment: Speci men Type: SWABOrdering Facility: [facility] Address: [address] [place] [address] Performed By: #### C VTV, BVAMP ####[facility] LABCLIA [id number] [place] [address] [place] CNOVon 10-14-[address] [facility] HSV+VZV DNA YAYO+probe Ql (Un sp spec)on 10-14-2024 HSV 1 DNA YAYO+probe Ql (Unsp spec) Not detected Normal Not Detected [facility] Comment on above: Order Comment: Speci men Type: SWABOrdering Facility: [facility] Address: [address] [place] [address] Performed By: #### 3 3027-4 ####[facility] LABCLIA [id number] [place] [address] [place] HSV 2 DNA YAYO+probe Ql (Unsp spec) Detected Abnormal Not Detected [facility] Comment on above: Order Comment: Speci men Type: SWABOrdering Facility: [facility] Address: [address] [place] [address] Performed By: #### 3 3027-4 ####[facility] LABCLIA [id number] [place] [address] [place] VZV DNA YAYO+probe Ql (Unsp spec) Not detected Normal Not Detected [facility] Comment on above: Order Comment: Speci men Type: SWABOrdering Facility: [facility] Address: [address] [place] [address] Performed By: #### 3 3027-4 ####[facility] LABCLIA [id number] [place] [address] [place] B-HCG SerPl-aCncon HCG.beta subunit Qn m[IU]/mL Normal <5.0 [facility] Comment on above: Order Comment: Speci men Type: BLOOD SPECIMENOrdering Facility: [facility] Address: [address] [place] [address] Result Comment: Leo donis Performed By: #### 2 1198-7 ####[facility] LABCLIA [id number] [place] [address] [place] B. burgdorferi IgG and IgM p radha (S)on 10-11-2024 B. burgdorferi IgG+IgM Qn (S) Negative Normal Negative [facility] Comment on above: Order Comment: Speci men Type: BLOOD SPECIMENOrdering Facility: [facility] Address: [address] [place] [address] Result Comment: Rece nt infection with B. burgdorferi sensu lato cannot be excluded if the specimen collected within four weeks after the onset of signs and symptoms or within six weeks after a known tick exposure. Clinical and epidemiological correlation is required. Performed By: #### 3 4942-3 ####[facility] LABCLIA [id number] [place] [address] [place] CNOVon 10-11-[address] [facility] CRP SerPl-mCncon 10-11-2024 CRP [Mass/Vol] mg/L Normal <0.9 [facility] Comment on above: Order Comment: Speci men Type: BLOOD SPECIMENOrdering Facility: [facility] Address: [address] [place] [address] Performed By: #### 1 988-5, 94630-3 ####[facility] [id number] [place] [address] [place] ESR Westergren method (Bld) [Velocity]on 10-11-2024 ESR (Bld) [Velocity] 2 mm/h Normal 0-20 [facility] Comment on above: Order Comment: Speci men Type: BLOOD SPECIMENOrdering Facility: [facility] Address: [address] [place] [address] Performed By: #### 4 537-7 ####[facility] [id number] [place] [address] [place] Nuclear Ab IA Ql (S)on 10-11 PUMA SCR QUAL Negative Normal Negative [facility] Comment on above: Order Comment: Speci men Type: BLOOD SPECIMENOrdering Facility: [facility] Address: [address] [place] [address] Result Comment: The qualitative antinuclear antibody screen test performed using the following antigens: dsDNA, Chromatin, Ribosomal P, SS-A 60, SS-A 52, SS-B, Sm, SmRNP, DIGITAL MEDIA STRATEGIST A, DIGITAL MEDIA STRATEGIST 68, Scl-70, Radha-1, and Centromere B. Methodology: Multiplex flow immunoassay. Performed By: #### 4 7383-5 ####[facility] [id number] [place] [address] [place] Rheumatoid fact SerPl-aCncon 10-11-2024 Rheumatoid factor Qn [IU]/mL Normal <16 [facility] Comment on above: Order Comment: Speci men Type: BLOOD SPECIMENOrdering Facility: [facility] Address: [address] [place] [address] Performed By: #### 1 988-5, 22727-3 ####[facility] [id number] [place] [address] [place] CBC W Auto Differential pane l (Bld)on 10-10-2024 Basophils (Bld) [#/Vol] 0.05 10*3/uL [facility] Basophils/100 WBC (Bld) 0.6 % [facility] Differential cell count method Nom (Bld) Auto [facility] Eosinophils (Bld) [#/Vol] 0.08 10*3/uL [facility] Eosinophils/100 WBC (Bld) 1 % [facility] Erythrocyte distribution width (RBC) [Ratio] 12.7 % 11.5 - 15.0 % [facility] Hematocrit (Bld) [Volume fraction] 43.6 % 36.0 - 46.0 % [facility] Hemoglobin (Bld) [Mass/Vol] 14.5 g/dL 11.5 - 15.5 g/dL [facility] Immature granulocytes (Bld) [#/Vol] [facility] Immature granulocytes/100 WBC (Bld) 0.1 % [facility] Lymphocytes (Bld) [#/Vol] 1.93 10*3/uL [facility] Lymphocytes/100 WBC (Bld) 23.6 % [facility] MCH (RBC) [Entitic mass] 31.8 pg 26.0 - 34.0 pg [facility] MCHC (RBC) [Mass/Vol] 33.3 g/dL 30.5 - 36.0 g/dL [facility] MCV (RBC) [Entitic vol] 95.6 fL 80.0 - 100.0 fL [facility] Monocytes (Bld) [#/Vol] 0.72 10*3/uL [facility] Monocytes/100 WBC (Bld) 8.8 % [facility] Neutrophils (Bld) [#/Vol] 5.4 10*3/uL [facility] Neutrophils/100 WBC (Bld) 65.9 % [facility] Nucleated RBC (Bld) [#/Vol] [facility] Nucleated RBC/100 WBC (Bld) [Ratio] 0 % /100 WBC [facility] Platelet mean volume (Bld) [Entitic vol] 10.3 fL 9.0 - 12.7 fL [facility] Platelets (Bld) [#/Vol] 257 10*3/uL [facility] RBC (Bld) [#/Vol] 4.56 10*6/uL 3.90 - 5.2 0 m/uL [facility] WBC (Bld) [#/Vol] 8.19 10*3/uL [facility] Basophils (Bld) [#/Vol] 0.05 10*3/uL Normal <0.11 [facility] Comment on above: Order Comment: Speci men Type: BLOOD SPECIMENOrdering Facility: [facility] Address: [address] [place] [address] Performed By: #### 5 7021-8 ####[facility] LABCLIA [id number] [facility] [place] [address] [place] Basophils/100 WBC (Bld) 0.6 % Normal [facility] Comment on above: Order Comment: Speci men Type: BLOOD SPECIMENOrdering Facility: [facility] Address: [address] [place] [address] Performed By: #### 5 7021-8 ####[facility] LABCLIA [id number] [facility] [place] [address] [place] Differential cell count method Nom (Bld) Auto Normal [facility] Comment on above: Order Comment: Speci men Type: BLOOD SPECIMENOrdering Facility: [facility] Address: [address] [place] [address] Performed By: #### 5 7021-8 ####[facility] LABCLIA [id number] [facility] [place] [address] [place] Eosinophils (Bld) [#/Vol] 0.08 10*3/uL Normal <0.46 [facility] Comment on above: Order Comment: Speci men Type: BLOOD SPECIMENOrdering Facility: [facility] Address: [address] [place] [address] Performed By: #### 5 7021-8 ####[facility] LABCLIA [id number] [facility] [place] [address] [place] Eosinophils/100 WBC (Bld) 1.0 % Normal [facility] Comment on above: Order Comment: Speci men Type: BLOOD SPECIMENOrdering Facility: [facility] Address: [address] [place] [address] Performed By: #### 5 7021-8 ####[facility] LABCLIA [id number] [address], [place] [address] [place] Erythrocyte distribution width (RBC) [Ratio] 12.7 % Normal 11.5-15.0 [facility] Comment on above: Order Comment: Speci men Type: BLOOD SPECIMENOrdering Facility: [facility] Address: [address] [place] [address] Performed By: #### 5 7021-8 ####[facility] LABCLIA [id number] [address], [place] [address] [place] Hematocrit (Bld) [Volume fraction] 43.6 % Normal 36.0-46.0 [facility] Comment on above: Order Comment: Speci men Type: BLOOD SPECIMENOrdering Facility: [facility] Address: [address] [place] [address] Performed By: #### 5 7021-8 ####[facility] LABCLIA [id number] [address], [facility] [place] Hemoglobin (Bld) [Mass/Vol] 14.5 g/dL Normal 11.5-15.5 [facility] Comment on above: Order Comment: Speci men Type: BLOOD SPECIMENOrdering Facility: [facility] Address: [address] [place] [address] Performed By: #### 5 7021-8 ####[facility] LABCLIA [id number] [address] [place] [address] [place] Immature granulocytes (Bld) [#/Vol] 10*3/uL Normal <0.10 [facility] Comment on above: Order Comment: Speci men Type: BLOOD SPECIMENOrdering Facility: [facility] Address: [address] [place] [address] Performed By: #### 5 7021-8 ####[facility] LABIA [id number] [address], [facility] [place] Immature granulocytes/100 WBC (Bld) 0.1 % Normal [facility] Comment on above: Order Comment: Speci men Type: BLOOD SPECIMENOrdering Facility: [facility] Address: [address] [place] [address] Performed By: #### 5 7021-8 ####[facility] LABCLIA [id number] [place] [address] [place] Lymphocytes (Bld) [#/Vol] 1.93 10*3/uL Normal 1.00-4.00 [facility] Comment on above: Order Comment: Speci men Type: BLOOD SPECIMENOrdering Facility: [facility] Address: [address] [place] [address] Performed By: #### 5 7021-8 ####[facility] LABCLIA [id number] [place] [address] [place] Lymphocytes/100 WBC (Bld) 23.6 % Normal [facility] Comment on above: Order Comment: Speci men Type: BLOOD SPECIMENOrdering Facility: [facility] Address: [address] [place] [address] Performed By: #### 5 7021-8 ####[facility] LABCLIA [id number] [place] [address] [place] MCH (RBC) [Entitic mass] 31.8 pg Normal 26.0-34.0 [facility] Comment on above: Order Comment: Speci men Type: BLOOD SPECIMENOrdering Facility: [facility] Address: [address] [place] [address] Performed By: #### 5 7021-8 ####[facility] LABCLIA [id number] [place] [address] [place] MCHC (RBC) [Mass/Vol] 33.3 g/dL Normal 30.5-36.0 [facility] Comment on above: Order Comment: Speci men Type: BLOOD SPECIMENOrdering Facility: [facility] Address: [address] [place] [address] Performed By: #### 5 7021-8 ####[facility] LABCLIA [id number] [place] [address] [place] MCV (RBC) [Entitic vol] 95.6 fL Normal 80.0-100.0 [facility] Comment on above: Order Comment: Speci men Type: BLOOD SPECIMENOrdering Facility: [facility] Address: [address] [place] [address] Performed By: #### 5 7021-8 ####[facility] LABCLIA [id number] [place] [address] [place] Monocytes (Bld) [#/Vol] 0.72 10*3/uL Normal <0.87 [facility] Comment on above: Order Comment: Speci men Type: BLOOD SPECIMENOrdering Facility: [facility] Address: [address] [place] [address] Performed By: #### 5 7021-8 ####[facility] LABIA [id number] [place] [address] [place] Monocytes/100 WBC (Bld) 8.8 % Normal [facility] Comment on above: Order Comment: Speci men Type: BLOOD SPECIMENOrdering Facility: [facility] Address: [address] [place] [address] Performed By: #### 5 7021-8 ####[facility] LABCLIA [id number] [place] [address] [place] Neutrophils (Bld) [#/Vol] 5.40 10*3/uL Normal 1.45-7.50 [facility] Comment on above: Order Comment: Speci men Type: BLOOD SPECIMENOrdering Facility: [facility] Address: [address] [place] [address] Performed By: #### 5 7021-8 ####[facility] LABCLIA [id number] [address] [place] [address] [place] Neutrophils/100 WBC (Bld) 65.9 % Normal [facility] Comment on above: Order Comment: Speci men Type: BLOOD SPECIMENOrdering Facility: [facility] Address: [address] [place] [address] Performed By: #### 5 7021-8 ####[facility] LABCLIA [id number] [address], [place] [address] [place] Nucleated RBC (Bld) [#/Vol] 10*3/uL Normal <0.01 [facility] Comment on above: Order Comment: Speci men Type: BLOOD SPECIMENOrdering Facility: [facility] Address: [address] [place] [address] Performed By: #### 5 7021-8 ####[facility] LABCLIA [id number] [address], [place] [address] [place] Nucleated RBC/100 WBC (Bld) [Ratio] 0.0 /[address] [facility] Comment on above: Order Comment: Speci men Type: BLOOD SPECIMENOrdering Facility: [facility] Address: [address] [place] [address] Performed By: #### 5 7021-8 ####[facility] LABCLIA [id number] [address], [place] [address] [place] Platelet mean volume (Bld) [Entitic vol] 10.3 fL Normal 9.0-12.7 [facility] Comment on above: Order Comment: Speci men Type: BLOOD SPECIMENOrdering Facility: [facility] Address: [address] [place] [address] Performed By: #### 5 7021-8 ####[facility] LABCLIA [id number] [address], [facility] [place] Platelets (Bld) [#/Vol] 257 10*3/uL Normal 150-400 [facility] Comment on above: Order Comment: Speci men Type: BLOOD SPECIMENOrdering Facility: [facility] Address: [address] [place] [address] Performed By: #### 5 7021-8 ####[facility] LABIA [id number] [place] [address] [place] RBC (Bld) [#/Vol] 4.56 10*6/uL Normal 3.90-5.20 [facility] Comment on above: Order Comment: Speci men Type: BLOOD SPECIMENOrdering Facility: [facility] Address: [address] [place] [address] Performed By: #### 5 7021-8 ####[facility] [id number] [place] [address] [place] WBC (Bld) [#/Vol] 8.19 10*3/uL Normal 3.70-11.00 [facility] Comment on above: Order Comment: Speci men Type: BLOOD SPECIMENOrdering Facility: [facility] Address: [address] [place] [address] Performed By: #### 5 7021-8 ####[facility] LABIA [id number] [place] [address] [place] CNOVon 10-10-[address] [facility] Comprehensive metabolic 2000 panelon 10-10-2024 Albumin [Mass/Vol] 4.5 g/dL Normal 3.9-4.9 [facility] Comment on above: Order Comment: Speci men Type: BLOOD SPECIMENOrdering Facility: [facility] Address: [address] [place] [address] Performed By: #### 2 4323-8 ####[facility] [id number] [place] [address] [place] ALP [Catalytic activity/Vol] 76 U/L Normal 34-123 [facility] Comment on above: Order Comment: Speci men Type: BLOOD SPECIMENOrdering Facility: [facility] Address: [address] [place] [id number] Performed By: #### 2 4323-8 ####[facility] LABCLIA [id number] [facility] [address] [place] [address] [place] ALT [Catalytic activity/Vol] 13 U/L Normal 7-38 [facility] Comment on above: Order Comment: Speci men Type: BLOOD SPECIMENOrdering Facility: [facility] Address: [address] [place] [address] Performed By: #### 2 4323-8 ####[facility] LABCLIA [id number] [facility] [address], [facility]95 [place] Anion gap [Moles/Vol] 12 mmol/L Normal 8-15 [facility] Comment on above: Order Comment: Speci men Type: BLOOD SPECIMENOrdering Facility: [facility] Address: [address] [place] [address] Performed By: #### 2 4323-8 ####[facility] LABCLIA [id number] [address], [facility]95 [place] AST [Catalytic activity/Vol] 19 U/L Normal 13-35 [facility] Comment on above: Order Comment: Speci men Type: BLOOD SPECIMENOrdering Facility: [facility] Address: [address] [place], [place] [address] Performed By: #### 2 4323-8 ####[facility] LABCLIA [id number] [facility] [address] [place] [address] [place] Bilirubin [Mass/Vol] 0.4 mg/dL Normal 0.2-1.3 [facility] Comment on above: Order Comment: Speci men Type: BLOOD SPECIMENOrdering Facility: [facility] Address: [address] [place], [place] [address] Performed By: #### 2 4323-8 ####[facility] LABCLIA [id number] [address], [facility] [place] Calcium [Mass/Vol] 9.4 mg/dL Normal 8.5-10.2 [facility] Comment on above: Order Comment: Speci men Type: BLOOD SPECIMENOrdering Facility: [facility] Address: [address] [place] [id number] Performed By: #### 2 4323-8 ####[facility] LABCLIA [id number] [facility] [place] [address] [place] Chloride [Moles/Vol] 106 mmol/L Normal 98-107 [facility] Comment on above: Order Comment: Speci men Type: BLOOD SPECIMENOrdering Facility: [facility] Address: [address] [place] [address] Performed By: #### 2 4323-8 ####[facility] LABCLIA [id number] [place] [address] [place] CO2 [Moles/Vol] 23 mmol/L Normal 22-30 [facility] Comment on above: Order Comment: Speci men Type: BLOOD SPECIMENOrdering Facility: [facility] Address: [address] [place] [address] Performed By: #### 2 4323-8 ####[facility] LABCLIA [id number] [place] [address] [place] Creatinine [Mass/Vol] 0.61 mg/dL Normal 0.58-0.96 [facility] Comment on above: Order Comment: Speci men Type: BLOOD SPECIMENOrdering Facility: [facility] Address: [address] [place] [address] Performed By: #### 2 4323-8 ####[facility] LABCLIA [id number] [place] [address] [place] Creatinine and Glomerular filtration rate.predicted panel (S/P/Bld) 130 mL/min/1.73m??? Normal >=60 [facility] Comment on above: Order Comment: Speci men Type: BLOOD SPECIMENOrdering Facility: [facility] Address: [address] [place] [address] Result Comment: Dylan mated Glomerular Filtration Rate (eGFR) is calculated using the 2020 CKD-EPI creatinine equation. This equation utilizes serum creatinine, sex, and age as parameters. The creatinine assay has traceable calibration to isotope dilution-mass spectrometry. Refer to KDIGO guidelines for clinical interpretation. In patients with unstable renal function, e.g. those with acute kidney injury, the eGFR may not accurately reflect actual GFR. Performed By: #### 2 4323-8 ####[facility] LABIA [id number] [place] [address] [place] Glucose [Mass/Vol] 99 mg/dL Normal 74-99 [facility] Comment on above: Order Comment: Nabeel montero Type: BLOOD SPECIMENOrdering Facility: [facility] Address: [address] [place] [address] Result Comment: The [place] [employer] (ADA) provides guidance for cutoff values for fasting glucose and random glucose. The ADA defines fasting as no caloric intake for at least 8 hours. Fasting plasma glucose results between 100 to 125 mg/dL indicate increased risk for diabetes (prediabetes).Fasting plasma glucose results greater than or equal to 126 mg/dL meet the criteria for diagnosis of diabetes. In the absence of unequivocal hyperglycemia, results should be confirmed by repeat testing. In a patient with classic symptoms of hyperglycemia or hyperglycemic crisis, random plasma glucose results greater than or equal to 200 mg/dL meet the criteria for diagnosis of diabetes.Reference: Standards of Medical Care in Diabetes 2016, [place] [employer]. Diabetes Care. 2016.39(Suppl 1). Performed By: #### 2 4323-8 ####[facility] LABCLIA [id number] [place] [address] [place] Potassium [Moles/Vol] 3.9 mmol/L Normal 3.7-5.1 [facility] Comment on above: Order Comment: Nabeel montero Type: BLOOD SPECIMENOrdering Facility: [facility] Address: [address] [place] [address] Performed By: #### 2 4323-8 ####[facility] LABCLIA [id number] [place] [id number] [place] Protein [Mass/Vol] 7.2 g/dL Normal 6.3-8.0 [facility] Comment on above: Order Comment: Speci men Type: BLOOD SPECIMENOrdering Facility: [facility] Address: [address] [place] [address] Performed By: #### 2 4323-8 ####[facility] LABCLIA [id number] [place] [address] [place] Sodium [Moles/Vol] 141 mmol/L Normal 136-144 [facility] Comment on above: Order Comment: Speci men Type: BLOOD SPECIMENOrdering Facility: [facility] Address: [address] [place] [address] Performed By: #### 2 4323-8 ####[facility] LABCLIA [id number] [place] [address] [place] Urea nitrogen [Mass/Vol] 7 mg/dL Normal 7-21 [facility] Comment on above: Order Comment: Speci men Type: BLOOD SPECIMENOrdering Facility: [facility] Address: [address] [place] [address] Performed By: #### 2 4323-8 ####[facility] LABCLIA [id number] [place] [address] [place] HIV 1+2 Ab IA Qlon 5 HIV 1 and 2 Ab IA.rapid Nom (S/P/Bld) Normal [facility] Comment on above: Order Comment: Speci men Type: BLOOD SPECIMENOrdering Facility: [facility] Address: [address] [place] [address] Result Comment: Test not indicated. Performed By: #### 3 1201-7 ####[facility] LABCLIA [id number] [place] [address] [place] HIV 1+2 Ab+HIV1 p24 Ag IA Ql Non-Reactive Normal Nonreactive [facility] Comment on above: Order Comment: Speci men Type: BLOOD SPECIMENOrdering Facility: [facility] Address: [address] [place] [address] Performed By: #### 3 1201-7 ####[facility] LABIA [id number] [place] [address] [place] HIV immunoassay testing algorithm interpretation (S/P/Bld) [Interp] Normal [facility] Comment on above: Order Comment: Speci men Type: BLOOD SPECIMENOrdering Facility: [facility] Address: [address] [place] [address] Result Comment: No e vidence of HIV-1 or HIV-2 infection. Should recent infection be suspected, repeat testing may be considered 2-3 weeks after this draw.[place] Rev. Code 3701.243(E): This information has been disclosed to you from confidential records protected from disclosure by state law. ???You shall make no further disclosure of this information without the specific, written, and informed release of the individual to whom it pertains or as otherwise permitted by state law. A general authorization for the release of medical or other information is not sufficient for the purpose of the release of HIV test results or diagnoses. Performed By: #### 3 1201-7 ####[facility] LABCLIA [id number] [place] [id number] [place] CNOVon 10-08-[address] [facility] CNOVon 09-22-[address] [facility] Emergency Department Summary on 09-22-2024 Emergency Department Summary [facility] Medical Records Department [address] [place] [address] Emergency Department Summary 09/22/24 MR#: [id number] Acct: [id number] Name: DORY ANDREWS GREG Rep #: [id number] : 2000 23 From: Ulises Garcia DO PCP: Dr. Wu Herrera MD Status:REG ER Location: ED HPI History of Present Illness Chief Complaint: Back [facility] Medical History Chronic gastritis Former smoker depression History of anorexia nervosa Vitamin B12 deficiency Abdominal bloating Constipation History of marijuana use Generalized anxiety disorder Bipolar 1 disorder, depressed, moderate PTSD (post-traumatic stress disorder) Tobacco abuse Osteopenia GERD (gastroesophageal reflux disease) Asthma Migraines ( 12/08/23) Alcohol withdrawal Desire for detoxification History of cocaine use Alcohol use disorder Home Medications ???Medication ???Instructions ???Recorded ???Last Taken ???Type duloxetine 20 mg capsule,delayed 20 mg PO BID 09/05/24 Unknown Hist ory release (Cymbalta) norethindrone acetate 5 mg tablet 5 mg PO QDAY 09/05/24 Unknown His tory Compression Stockings Knee High #1 ea 09/06/24 Unknown Rx methocarbamol 500 mg tablet 500 mg PO Q8H PRN pain (scale 09/10 10/04 Unknown Rx score 7-10) #20 tabs prednisone 20 mg tablet 20 mg PO DAILY #5 tabs 09/22/24 Un known Rx Allergy/AdvReac Type Severity Reaction Status Date / Time Quinolones Allergy PT UNSURE Verified 09/22/24 18:47 OF REACTION Family History Other Alcoholism Anxiety Arthritis Asthma COPD (chronic obstructive pulmonary disease) Depression High cholesterol Schizophrenia Surgical History History of surgery Social History (Updated 09/05/24 @ 15:51 by Wade Wilcox NP, [employer]) Smoking Status: Current every day smoker tobacco type: e-cigarettes alcohol intake: current alcohol intake frequency: a few times a week Previous attempts at quittin details: 3 drinks per week substance use type: does not use EXAM Physical Exam Const Vital Signs: 09/22/24 18:44 Temperature 98.1 F Temperature Source Temporal Pulse Rate 78 Respiratory Rate 15 Blood Pressure 120/55 L Blood Pressure Mean 76 Pulse Ox 100 Oxygen Delivery Method Room Air MDM MDM MDM Narrative Medical decision making narrative: HISTORY OF PRESENT ILLNESS: 23-year-old female presents with back pain. She notes chronic back pain. No she follows with PT. No she has missed PT recently she thinks this has made her back pain worse. Denies falls or trauma. Denies IV drug use. Notes pain is in her lower back. She also notes urinary symptoms such as burning but denies frequency. Patient denies any saddle anesthesia, urinary tension, bowel or bladder incontinence, lower extremity weakness, fever or IV drug use, no recent spinal manipulation or surgery, no recent urinary catheterization. REVIEW OF SYSTEMS: All other systems reviewed and are negative except as noted in the history of present illness. At least 10 review of systems reviewed and are negative except as noted in history of present illness. PHYSICAL EXAM: Nursing triage notes reviewed, Vital signs reviewed Constitutional: please see mdm HENT: MMM Eyes: Pupils equal round and reactive to light, Extraocular muscles intact Neck: No stridor, no JVD, full neck ROM Lungs: Clear to auscultation, No wheezing or rales. No increased work of breathing, no conversational dyspnea, no accessory muscle use, no nasal flaring. No respiratory distress noted Heart: Regular rate and rhythm, No murmurs, No rubs and No gallops, 2+ distal pulses (radial, femoral, posterior tibial) in all extremities Abdomen: Soft, there is no tenderness, rigidity, rebound or guarding, no obvious peritoneal signs, no palpable pulsatile abdominal masses, no auscultated abdominal bruit : No CVAT Extremities: No edema Back: No midline step-offs or deformities Neuro: Intact sensation L1-S1 dermatomal distributions. Intact 5/5 strength in hip flexion (T12-L3). Knee extension (L2-L4). Ankle dorsiflexion (L4-L5). Ankle plantar flexion (S1). Great toe extension (L5). 2+ patellar and Achilles DTRs. Skin: No rash or lesions noted MEDICAL DECISION MAKING: Chief Complaint: Back pain External records reviewed: Reviewed prior imaging studies Factors affecting care: Alcohol dependence, PTSD, polysubstance abuse Social determinants of health: No IV drug use, history of mental health disorder History obtained from others: none Consults: none ALL IMAGES (IF OBTAINED) HAVE BEEN PERSONALLY REVIEWED AND INTERPRETED BY MYSELF. Urinalysis without signs of in (more content not included)... Normal [facility] Urinalysis, Completeon 09-22 RBC 0 SEEN Normal 0-5 [facility] Comment on above: Order Comment: CLEAN CATCH Performed By: #### L 400.0001 #### [facility] [address] [place], [address] BACTERIA 1+ /hpf Normal None Seen [facility] Comment on above: Order Comment: CLEAN CATCH Performed By: #### L 400.0001 #### [facility] [address] [place], [address] EPI,SQUAMOUS 0-5 SEEN Normal 5-10 [facility] Comment on above: Order Comment: CLEAN CATCH Performed By: #### L 400.0001 #### [facility] [address] [place], [address] WBC 0-5 SEEN Normal 0-5 [facility] Comment on above: Order Comment: CLEAN CATCH Performed By: #### L 400.0001 #### [facility] [address] [place], [address] Mucus Ql (Urine sed) 0 SEEN Normal [facility] Comment on above: Order Comment: CLEAN CATCH Performed By: #### L 400.0001 #### [facility] [address] [place], [address] CBC W Auto Differential pane l (Bld)on 09-19-2024 Basophils (Bld) [#/Vol] 0.04 10*3/uL Normal <0.11 [facility] Comment on above: Order Comment: Speci men Type: BLOOD SPECIMENOrdering Facility: [facility] Address: [address] [place] [address] Performed By: #### 5 7021-8 ####[facility] LABCLIA [id number] [place] [address] [place] Basophils/100 WBC (Bld) 0.5 % Normal [facility] Comment on above: Order Comment: Speci men Type: BLOOD SPECIMENOrdering Facility: [facility] Address: [address] [place] [address] Performed By: #### 5 7021-8 ####[facility] LABCLIA [id number] [place] [address] [place] Differential cell count method Nom (Bld) Auto Normal [facility] Comment on above: Order Comment: Speci men Type: BLOOD SPECIMENOrdering Facility: [facility] Address: [address] [place] [address] Performed By: #### 5 7021-8 ####[facility] LABCLIA [id number] [place] [address] [place] Eosinophils (Bld) [#/Vol] 0.10 10*3/uL Normal <0.46 [facility] Comment on above: Order Comment: Speci men Type: BLOOD SPECIMENOrdering Facility: [facility] Address: [address] [place] [address] Performed By: #### 5 7021-8 ####[facility] LABCLIA [id number] [place] [address] [place] Eosinophils/100 WBC (Bld) 1.3 % Normal [facility] Comment on above: Order Comment: Speci men Type: BLOOD SPECIMENOrdering Facility: [facility] Address: [address] [place] [address] Performed By: #### 5 7021-8 ####[facility] LABCLIA [id number] [place] [address] [place] Erythrocyte distribution width (RBC) [Ratio] 12.3 % Normal 11.5-15.0 [facility] Comment on above: Order Comment: Speci men Type: BLOOD SPECIMENOrdering Facility: [facility] Address: [address] [place] [address] Performed By: #### 5 7021-8 ####[facility] LABCLIA [id number] [place] [address] [place] Hematocrit (Bld) [Volume fraction] 43.0 % Normal 36.0-46.0 [facility] Comment on above: Order Comment: Speci men Type: BLOOD SPECIMENOrdering Facility: [facility] Address: [address] [place] [address] Performed By: #### 5 7021-8 ####[facility] LABCLIA [id number] [address], [place] [address] [place] Hemoglobin (Bld) [Mass/Vol] 14.2 g/dL Normal 11.5-15.5 [facility] Comment on above: Order Comment: Speci men Type: BLOOD SPECIMENOrdering Facility: [facility] Address: [address] [place] [address] Performed By: #### 5 7021-8 ####[facility] LABCLIA [id number] [address], [place] [address] [place] Immature granulocytes (Bld) [#/Vol] 10*3/uL Normal <0.10 [facility] Comment on above: Order Comment: Speci men Type: BLOOD SPECIMENOrdering Facility: [facility] Address: [address] [place] [address] Performed By: #### 5 7021-8 ####[facility] LABCLIA [id number] [address], [place] [address] [place] Immature granulocytes/100 WBC (Bld) 0.1 % Normal [facility] Comment on above: Order Comment: Speci men Type: BLOOD SPECIMENOrdering Facility: [facility] Address: [address] [place] [address] Performed By: #### 5 7021-8 ####[facility] LABCLIA [id number] [address], [facility] [place] Lymphocytes (Bld) [#/Vol] 2.14 10*3/uL Normal 1.00-4.00 [facility] Comment on above: Order Comment: Speci men Type: BLOOD SPECIMENOrdering Facility: [facility] Address: [address] [place] [address] Performed By: #### 5 7021-8 ####[facility] LABCLIA [id number] [place] [id number] [place] Lymphocytes/100 WBC (Bld) 28.4 % Normal [facility] Comment on above: Order Comment: Speci men Type: BLOOD SPECIMENOrdering Facility: [facility] Address: [address] [place] [address] Performed By: #### 5 7021-8 ####[facility] LABCLIA [id number] [place] [address] [place] MCH (RBC) [Entitic mass] 31.6 pg Normal 26.0-34.0 [facility] Comment on above: Order Comment: Speci men Type: BLOOD SPECIMENOrdering Facility: [facility] Address: [address] [place] [address] Performed By: #### 5 7021-8 ####[facility] LABIA [id number] [place] [address] [place] MCHC (RBC) [Mass/Vol] 33.0 g/dL Normal 30.5-36.0 [facility] Comment on above: Order Comment: Speci men Type: BLOOD SPECIMENOrdering Facility: [facility] Address: [address] [place] [address] Performed By: #### 5 7021-8 ####[facility] LABIA [id number] [place] [address] [place] MCV (RBC) [Entitic vol] 95.8 fL Normal 80.0-100.0 [facility] Comment on above: Order Comment: Speci men Type: BLOOD SPECIMENOrdering Facility: [facility] Address: [address] [place] [address] Performed By: #### 5 7021-8 ####[facility] LABIA [id number] [place] [address] [place] Monocytes (Bld) [#/Vol] 0.56 10*3/uL Normal <0.87 [facility] Comment on above: Order Comment: Speci men Type: BLOOD SPECIMENOrdering Facility: [facility] Address: [address] [place] [address] Performed By: #### 5 7021-8 ####[facility] LABCLIA [id number] [place] [address] [place] Monocytes/100 WBC (Bld) 7.4 % Normal [facility] Comment on above: Order Comment: Speci men Type: BLOOD SPECIMENOrdering Facility: [facility] Address: [address] [place] [address] Performed By: #### 5 7021-8 ####[facility] LABCLIA [id number] [place] [address] [place] Neutrophils (Bld) [#/Vol] 4.68 10*3/uL Normal 1.45-7.50 [facility] Comment on above: Order Comment: Speci men Type: BLOOD SPECIMENOrdering Facility: [facility] Address: [address] [place] [address] Performed By: #### 5 7021-8 ####[facility] LABIA [id number] [place] [address] [place] Neutrophils/100 WBC (Bld) 62.3 % Normal [facility] Comment on above: Order Comment: Speci men Type: BLOOD SPECIMENOrdering Facility: [facility] Address: [address] [place] [address] Performed By: #### 5 7021-8 ####[facility] LABCLIA [id number] [place] [address] [place] Nucleated RBC (Bld) [#/Vol] 10*3/uL Normal <0.01 [facility] Comment on above: Order Comment: Speci men Type: BLOOD SPECIMENOrdering Facility: [facility] Address: [address] [place] [address] Performed By: #### 5 7021-8 ####[facility] LABCLIA [id number] [place] [address] [place] Nucleated RBC/100 WBC (Bld) [Ratio] 0.0 /[address] [facility] Comment on above: Order Comment: Speci men Type: BLOOD SPECIMENOrdering Facility: [facility] Address: [address] [place] [address] Performed By: #### 5 7021-8 ####[facility] LABCLIA [id number] [place] [address] [place] Platelet mean volume (Bld) [Entitic vol] 11.0 fL Normal 9.0-12.7 [facility] Comment on above: Order Comment: Speci men Type: BLOOD SPECIMENOrdering Facility: [facility] Address: [address] [place] [address] Performed By: #### 5 7021-8 ####[facility] LABCLIA [id number] [place] [address] [place] Platelets (Bld) [#/Vol] 259 10*3/uL Normal 150-400 [facility] Comment on above: Order Comment: Speci men Type: BLOOD SPECIMENOrdering Facility: [facility] Address: [address] [place] [address] Performed By: #### 5 7021-8 ####[facility] LABCLIA [id number] [place] [address] [place] RBC (Bld) [#/Vol] 4.49 10*6/uL Normal 3.90-5.20 [facility] Comment on above: Order Comment: Speci men Type: BLOOD SPECIMENOrdering Facility: [facility] Address: [address] [place] [address] Performed By: #### 5 7021-8 ####[facility] LABCLIA [id number] [place] [id number] [place] WBC (Bld) [#/Vol] 7.53 10*3/uL Normal 3.70-11.00 [facility] Comment on above: Order Comment: Speci men Type: BLOOD SPECIMENOrdering Facility: [facility] Address: [address] [place] [address] Performed By: #### 5 7021-8 ####[facility] LABCLIA [id number] [address] [address] [place] CNOVon 09-19-[address] [facility] MR/BMS.BPon 09-12-2024 MR/BMS.BP [facility] [address], [address] [place] [address] OFFICE VISIT Date of Service: 09/12/24 MR#: [id number] Acct: [id number] Name: DORY ANDREWS Rep #: [id number] : 2000 Provider: Dr. Hakeem Izaguirre se, DO Age/Sex: 23/F Location: [facility] Status: Signed Intake Vital Signs 07/18/24 14:24 09/05/24 14:15 09/12/24 15:04 Height 5 ft 2 in 5 ft 2 in 5 ft 2 in Weight: 129 lb BMI 23.6 BP 105/69 100/61 Blood Pressure Location Lt brachial Lt brachial Position Sitting Sitting Respiration 18 16 Pulse 89 72 Pulse Source Monitor Monitor Pulse Oximetry (%) 97 BP Intake Visit Reasons: 2 M FU Allergies Quinolones Allergy (Verified 09/05/24 15:16) PT UNSURE OF REACTION PFSH Medical History Chronic gastritis Former smoker depression History of anorexia nervosa Vitamin B12 deficiency Abdominal bloating Constipation History of marijuana use Generalized anxiety disorder Bipolar 1 disorder, depressed, moderate PTSD (post-traumatic stress disorder) Tobacco abuse Osteopenia GERD (gastroesophageal reflux disease) Asthma Migraines ( 12/08/23) Alcohol withdrawal Desire for detoxification History of cocaine use Alcohol use disorder Surgical History History of surgery Family History Other Alcoholism Anxiety Arthritis Asthma COPD (chronic obstructive pulmonary disease) Depression High cholesterol Schizophrenia Social History (Updated 09/05/24 @ 15:51 by Wade Wilcox CATHODE BUILDER, CATHODE BUILDER-C) Smoking Status: Current every day smoker tobacco type: e-cigarettes alcohol intake: current alcohol intake frequency: a few times a week Previous attempts at quittin details: 3 drinks per week substance use type: does not use HPI History of Present Illness History provided by: patient HPI: Dory Andrews is a 23 year old female who presents today for follow up evaluation. Has been feeling frustrated with her [employer] at [facility]. Admits to having a near 20 day period of menstruation, and feeling like she didn't get answer for how to control symptoms. Will be following with new [employer] in [place] in the next couple days. Has been taking prazosin intermittently, but only when she feels she needs to sleep. Just recently had to meet with victims advocate in [place] regarding her ongoing assault charges, but now court is pushed out until November. This coincides with right before her son's birthday, which is December 08. Continues to do counseling at [facility]. Denies any significant resolution in regards to possible autoimmune disorder she was seeing her PCP about. Continues to not receive child support. Has been taking duloxetine in recent past to help with chronic pain symptoms and has not yet noticed a significant improvement. Review of Systems Constitutional Reports: fatigue; Denies: fever(s), chills or change in weight Eyes Denies: change in vision or blurry vision Ears, Nose, Mouth, Throat Denies: throat pain, neck pain or change in hearing Cardiovascular Denies: chest pain, palpitations or dyspnea Respiratory Denies: dyspnea, cough or wheezing Gastrointestinal Reports: abdominal pain and diarrhea; Denies: constipation Genitourinary Denies: dysuria or urinary frequency Musculoskeletal Reports: joint pain; Denies: back pain, neck pain or muscle weakness Integumentary/Breast Denies: rash or new lesions Neurological Denies: headache(s), dizziness or confusion Endocrine Reports: fatigue; Denies: excessive sweating Hematologic/Lymphatic Denies: easy bruising or easy bleeding Allergic/Immunologic Denies: wheezing Exam Mental Status Exam - Psych Appearance casually dressed Attitude cooperative Activity/Motor Behavior MSE activity/motor behavior finding no adventitious movements and staring Speech regular rate, regular prosody and soft Mood OK Affect restricted Thought Process linear, logical and coherent Thought Content no delusions and no hallucinations Suicidal Ideation none Homicidal Ideation none Attention intact Concentration intact Sensorium/Orientation awake, alert and oriented x3 Memory/Cognition other (appropriate for stated age) Insight fair Judgement questionable Assessment Plan Assessment Plan (1) PTSD (post-traumatic stress disorder): Plan: - Can continue prazosin 2 mg every day; has reduced only taking as needed however if she is doing largely well in regards to mood okay to continue on this capacity ??? Continue in therapy through [facility] (2) Bipolar 1 disorder, depressed, severe: Plan: - Did start duloxetine for pain management and did discuss the use of medication in rega (more content not included)... Normal [facility] CNPNon 09-08-[address] [facility] Cardiology Visit Reporton Cardiology Visit Report [facility] [address] [place] [address] OFFICE VISIT Date of Service: 09/05/24 MR#: [id number] Acct: [id number] Name: DORY ANDREWS GREG Rep #: [id number] : 2000 Provider: JACEY clement Age/Sex: 23/F Location: [facility] Status: Signed HPI HPI History of Present Illness Details: This is a 23 year old lady who presents to the office today for a cardiovascular follow up. She was previously seen for recurrent syncope. She says that she has had numerous episodes of these syncopal episodes sometimes feeling warm and having sweaty hands and then having palpitations and lightheadedness. She has also had periods when she has been drinking and then afterwards passed out. She had also tried recreational drug use at some point. As part of her work-up she underwent a Holter monitor which demonstrated an average heart rate of 84 bpm with a minimum of 57 bpm and maximal 137 bpm all of which were sinus rhythm. She has had multiple ER visits. Her Echocardiogram from 08/27/2021 demonstrated a normal ejection fraction and structurally normal valves. Her tilt table was negative. She denies chest, arm, jaw, or neck discomfort. She denies palpitations. She denies bilateral lower extremity edema. She denies claudication. She denies shortness of breath with activity, shortness of breath at rest, orthopnea, or PND. She denies chronic cough. She denies significant, sudden weight gain. She denies lightheadedness, dizziness, near-syncope, or syncope. She denies blood in urine, blood in stool, or epistaxis. He denies fever with chills. She denies myalgia. She states fatigue. Her exercise level has remained stable. She states intermittent lower blood pressure. This is most noted in the morning and mid afternoon. She uses liquid IV once a day to help. Intake Vital Signs 04/26/24 14:38 06/20/24 14:53 09/05/24 14:15 Height 5 ft 2 in 5 ft 2 in 5 ft 2 in Weight: 129 lb BMI 23.6 BP 105/69 Blood Pressure Location Lt brachial Position Sitting Respiration 18 Pulse 89 Pulse Source Monitor Pulse Oximetry (%) 97 Intake Visit Reasons: 3 M FU Energy Consultant Required: No Is patient in pain?: No Allergies Quinolones Allergy (Verified 09/05/24 15:16) PT UNSURE OF REACTION Medications ???Medication ???Instructions ???Recorded ???Confirmed ???Type Compression Stockings #1 ea 09/05/24 Rx duloxetine 20 mg capsule,delayed 20 mg PO BID 09/05/24 09/05/24 His tory release (Cymbalta) norethindrone acetate 5 mg tablet 5 mg PO QDAY 09/05/24 09/05/24 Hi story Ejection fraction %: 60 Have you fallen in the past year?: No PFSH Medical History Chronic gastritis Former smoker depression History of anorexia nervosa Vitamin B12 deficiency Abdominal bloating Constipation History of marijuana use Generalized anxiety disorder Bipolar 1 disorder, depressed, moderate PTSD (post-traumatic stress disorder) Tobacco abuse Osteopenia GERD (gastroesophageal reflux disease) Asthma Migraines ( 12/08/23) Alcohol withdrawal Desire for detoxification History of cocaine use Alcohol use disorder Surgical History History of surgery Family History Other Alcoholism Anxiety Arthritis Asthma COPD (chronic obstructive pulmonary disease) Depression High cholesterol Schizophrenia Social History (Updated 09/05/24 @ 15:51 by Wade H Roof CATHODE BUILDER, CATHODE BUILDER-C) Smoking Status: Current every day smoker tobacco type: e-cigarettes alcohol intake: current alcohol intake frequency: a few times a week Previous attempts at quittin details: 3 drinks per week substance use type: does not use ROS Const Const: Positive for fatigue; Negative for weakness ENT ENT: Negative for dizziness or Nosebleed/epistaxis Cardio Chest Pain: No Palpitations: No Edema: None Muscle aches with walking: None Resp Respiratory: Negative for SOB with activity, SOB at rest, SOB orthopnea SOB lying down, Cough or paroxysmal nocturnal dyspnea GI GI: Negative nausea, vomiting blood/hematemesis, bright, red blood in stools or black,tarry stools : Negative for hematuria or frequent nighttime urination/ nocturia Musc Musc: Negative for muscle aches/ myalgia Skin Skin: Negative non-healing lesions or rash Neuro Neuro: Negative for dizziness, lightheadedness, near syncope, syncope, orthostatic symptoms or weakness Endo Endo: Positive for fatigue Allergy Allergy/Immunology: Negative for rash Cardiology Exam Const Appearance: cooperative, healthy appearing, comfortable and no acute distress Nutritional Appearance: average body habitus and well nou (more content not included)... Normal [facility] 09-01-2024 [facility] Emergency Department Summary on 08-31-2024 Emergency Department Summary [facility] Medical Records Department [address] [place] [id number] Emergency Department Summary 08/31/24 MR#: [id number] Acct: [id number] Name: DORY ANDREWS GREG Rep #: [id number] : 2000 23 From: Gustavo Rosado DO PCP: Dr. Wu Herrera MD Status:DEP ER Location: ED HPI History of Present Illness Chief Complaint: Hypotension Informant: patient Narrative Narrative: Patient is a 23-year-old female with bipolar disorder and PTSD who states she has been having menstrual bleeding daily since the end of July. She denies any concern for or STD. She denies any history of bleeding disorder or blood thinner use. She states she was seen at her doctor yesterday and her blood pressure was borderline low and there was concern that she may be anemic based on her recurrent bleeding and therefore she was sent to the hospital for evaluation [facility] Medical History Chronic gastritis Former smoker depression History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 awake Neck Neck: normal visual inspection and no meningeal signs Resp Effort Inspection: normal respiratory effort and able to speak in complete sentences Cardio Rate: regular rate Pulses: radial pulses present Skin General: no rashes or lesions noted Neuro General: patient alert, patient awake and patient oriented x3 Cognition: normal cognition Psych Appearance: grossly normal Mental Status: mental status grossly normal Mood: congruent mood Affect: normal affect Speech and Movement: speech and movement normal Attitude: cooperative Results POC Urine Office , Urine Negative Last Edit by Nanci Castro MA on 06/20/24 15:07 Coding Level of Care Code Off vis,new,level 2 Diagnoses Abdominal pain R10.9 Low back pain M54.50 Assessment and Plan Assessment and Plan (1) Abdominal pain: Status: Inactive (2) Low back pain: Status: Inactive Plan: See POC results; patient refusing all other testing upon offering. Supportive measures as instructed today. Follow-up with PCP or [facility] ST[facility]ER in 5 to 7 days should symptoms not resolve, ED sooner should symptoms worsen or any other concerns develop. Patient states acknowledging understanding all the above. This note was generated with Tupaloation software. It may contain incorrect words, spelling, and punctuation that were not noted in checking the note before signing. Orders: Orders POC Urine Today R11.0 - Nausea 06/20/24 15 (more content not included)... Normal [facility] BETA 2 GLYCOPROTEIN, IGGon 1 08-17-2023 Beta 2 glycoprotein 1 IgG IA Qn <9 Normal <20 [facility] Comment on above: Order Comment: Nabeel montero Type: BLOOD SPECIMENOrdering Facility: [facility] Address: [address] [place] [address] Result Comment: <20 SGU [id number] SGU Low Positive>80 SGU High PositiveThese results were obtained with the [employer] QUANTA Lite B2 GPI IgG CARLOS. B2 GPI IgG values obtained with different manufacturers' assay methods may not be used interchangeably. The magnitude of the reported IgG levels cannot be correlated to an endpoint titer. Performed By: #### 3 3935-8, 5076-5, CARDISolange, BETA2G, BETA2M ####[facility] LABCLIA [id number] [address] STATES OF [facility] BETA 2 GLYCOPROTEIN, IGMon 08-17-2023 Beta 2 glycoprotein 1 IgM IA Qn <9 Normal <20 [facility] Comment on above: Order Comment: Nabeel montero Type: BLOOD SPECIMENOrdering Facility: [facility] Address: [address] [place] [address] Result Comment: <20 [facility] Lccsclaf36-56 SMU Low Positive>80 [facility]U High positiveThese results were obtained with the [employer] QUANTA Lite B2 GPI IgM CARLOS. B2 GPI IgM values obtained with different manufacturers' assay methods may not be used interchangeably. The magnitude of the reported IgM levels cannot be correlated to an endpoint titer. Performed By: #### 3 3935-8, 5076-5, CARDIG, BETA2G, BETA2M ####[facility] LABCLIA [id number] [place] [id number] [place] C3 SerPl-mCncon 06-16-2024 Complement C3 [Mass/Vol] 153 mg/dL Normal 86-166 [facility] Comment on above: Order Comment: Speci men Type: BLOOD SPECIMENOrdering Facility: [facility] Address: [address] [place] [address] Performed By: #### 4 485-9, 4498-2, 1987-11, 73959-6 ####[facility] LABCLIA [id number] [place] [address] [place] C4 SerPl-mCncon 06-16-2024 Complement C4 [Mass/Vol] 19 mg/dL Normal 13-46 [facility] Comment on above: Order Comment: Speci men Type: BLOOD SPECIMENOrdering Facility: [facility] Address: [address] [place] [address] Performed By: #### 4 485-9, 4498-2, 1987-11, 96060-2 ####[facility] [id number] [place] [address] [place] CARDIOLIPIN IGG ABSon 2023 Cardiolipin IgG IA Qn (S) <9.0 Normal <15.0 [facility] Comment on above: Order Comment: Speci men Type: BLOOD SPECIMENOrdering Facility: [facility] Address: [address] [place] [address] Result Comment: <15 GPL [id number] GPL Indeterminate>20 GPL PositiveThe following results were obtained with the [employer] QUANTA Lite WAQAS IgG III CARLOS. Cardiolipin IgG values obtained with the different manufacturers' assay methods may not be used interchangeably. The magnitude of the reported IgG levels cannot be correlated to an endpoint titer. Performed By: #### 3 3935-8, 5076-5, CARDIG, BETA2G, BETA2M ####[facility] LABIA [id number] [address] CARDIOLIPIN IGM ABSon 2023 Cardiolipin IgM IA Qn (S) 10.9 MPL Normal <12.5 [facility] Comment on above: Order Comment: Speci men Type: BLOOD SPECIMENOrdering Facility: [facility] Address: [address] [place] [address] Result Comment: <12. 5 MPL Jezyrqhz96.5-20 MPL Indeterminate>20 MPL PositiveThe following results were obtained with the [employer] QUANTA Lite WAQAS IgM III CARLOS. Cardiolipin IgM values obtained with the different manufacturers' assay methods may not be used interchangeably. The magnitude of the reported IgM levels cannot be correlated to an endpoint titer.??? Performed By: #### C BRITTANEY ####[facility] LABCLIA [id number] [address] STATES OF [facility] CBC W Auto Differential pane l (Bld)on 06-16-2024 Basophils (Bld) [#/Vol] 0.04 10*3/uL [facility] Basophils/100 WBC (Bld) 0.5 % [facility] Differential cell count method Nom (Bld) Auto [facility] Eosinophils (Bld) [#/Vol] 0.08 10*3/uL [facility] Eosinophils/100 WBC (Bld) 1.0 % [facility] Erythrocyte distribution width (RBC) [Ratio] 12.5 % 11.5 - 15.0 % [facility] Hematocrit (Bld) [Volume fraction] 42.9 % 36.0 - 46.0 % [facility] Hemoglobin (Bld) [Mass/Vol] 14.4 g/dL 11.5 - 15.5 g/dL [facility] Immature granulocytes (Bld) [#/Vol] [facility] Immature granulocytes/100 WBC (Bld) 0.1 % [facility] Lymphocytes (Bld) [#/Vol] 2.32 10*3/uL [facility] Lymphocytes/100 WBC (Bld) 27.7 % [facility] MCH (RBC) [Entitic mass] 32.1 pg 26.0 - 34.0 pg [facility] MCHC (RBC) [Mass/Vol] 33.6 g/dL 30.5 - 36.0 g/dL [facility] MCV (RBC) [Entitic vol] 95.5 fL 80.0 - 100.0 fL [facility] Monocytes (Bld) [#/Vol] 0.54 10*3/uL [facility] Monocytes/100 WBC (Bld) 6.5 % [facility] Neutrophils (Bld) [#/Vol] 5.38 10*3/uL [facility] Neutrophils/100 WBC (Bld) 64.2 % [facility] Nucleated RBC (Bld) [#/Vol] NINF [facility] Nucleated RBC/100 WBC (Bld) [Ratio] 0.0 % /100 WBC [facility] Platelet mean volume (Bld) [Entitic vol] 9.9 fL 9.0 - 12.7 fL [facility] Platelets (Bld) [#/Vol] 269 10*3/uL [facility] RBC (Bld) [#/Vol] 4.49 10*6/uL 3.90 - 5.2 0 m/uL [facility] WBC (Bld) [#/Vol] 8.37 10*3/uL [facility] Basophils (Bld) [#/Vol] 0.04 10*3/uL Normal <0.11 [facility] Comment on above: Order Comment: Speci men Type: BLOOD SPECIMENOrdering Facility: [facility] Address: [address] [place] [address] Performed By: #### 5 7021-8 ####[facility] LABCLIA [id number] [address] [place] Basophils/100 WBC (Bld) 0.5 % Normal [facility] Comment on above: Order Comment: Speci men Type: BLOOD SPECIMENOrdering Facility: [facility] Address: [address] [place] [address] Performed By: #### 5 7021-8 ####[facility] LABCLIA [id number] [place] [address] [place] Differential cell count method Nom (Bld) Auto Normal [facility] Comment on above: Order Comment: Speci men Type: BLOOD SPECIMENOrdering Facility: [facility] Address: [address] [place] [address] Performed By: #### 5 7021-8 ####[facility] LABCLIA [id number] [place] [address] [place] Eosinophils (Bld) [#/Vol] 0.08 10*3/uL Normal <0.46 [facility] Comment on above: Order Comment: Speci men Type: BLOOD SPECIMENOrdering Facility: [facility] Address: [address] [place] [address] Performed By: #### 5 7021-8 ####[facility] LABCLIA [id number] [address] [place] Eosinophils/100 WBC (Bld) 1.0 % Normal [facility] Comment on above: Order Comment: Speci men Type: BLOOD SPECIMENOrdering Facility: [facility] Address: [address] [place] [address] Performed By: #### 5 7021-8 ####[facility] LABCLIA [id number] [address] [place] Erythrocyte distribution width (RBC) [Ratio] 12.5 % Normal 11.5-15.0 [facility] Comment on above: Order Comment: Speci men Type: BLOOD SPECIMENOrdering Facility: [facility] Address: [address] [place] [address] Performed By: #### 5 7021-8 ####[facility] LABCLIA [id number] [address] [place] Hematocrit (Bld) [Volume fraction] 42.9 % Normal 36.0-46.0 [facility] Comment on above: Order Comment: Speci men Type: BLOOD SPECIMENOrdering Facility: [facility] Address: [address] [place] [address] Performed By: #### 5 7021-8 ####[facility] LABCLIA [id number] [place] [id number] [place] Hemoglobin (Bld) [Mass/Vol] 14.4 g/dL Normal 11.5-15.5 [facility] Comment on above: Order Comment: Speci men Type: BLOOD SPECIMENOrdering Facility: [facility] Address: [address] [place] [address] Performed By: #### 5 7021-8 ####[facility] LABCLIA [id number] [place] [address] [place] Immature granulocytes (Bld) [#/Vol] 10*3/uL Normal <0.10 [facility] Comment on above: Order Comment: Speci men Type: BLOOD SPECIMENOrdering Facility: [facility] Address: [address] [place] [address] Performed By: #### 5 7021-8 ####[facility] LABCLIA [id number] [place] [address] [place] Immature granulocytes/100 WBC (Bld) 0.1 % Normal [facility] Comment on above: Order Comment: Speci men Type: BLOOD SPECIMENOrdering Facility: [facility] Address: [address] [place] [address] Performed By: #### 5 7021-8 ####[facility] LABCLIA [id number] [place] [address] [place] Lymphocytes (Bld) [#/Vol] 2.32 10*3/uL Normal 1.00-4.00 [facility] Comment on above: Order Comment: Speci men Type: BLOOD SPECIMENOrdering Facility: [facility] Address: [address] [place] [address] Performed By: #### 5 7021-8 ####[facility] LABCLIA [id number] [place] [id number] [place] Lymphocytes/100 WBC (Bld) 27.7 % Normal [facility] Comment on above: Order Comment: Speci men Type: BLOOD SPECIMENOrdering Facility: [facility] Address: [address] [place] [address] Performed By: #### 5 7021-8 ####[facility] LABCLIA [id number] [address] MCH (RBC) [Entitic mass] 32.1 pg Normal 26.0-34.0 [facility] Comment on above: Order Comment: Speci men Type: BLOOD SPECIMENOrdering Facility: [facility] Address: [address] [place] [address] Performed By: #### 5 7021-8 ####[facility] LABCLIA [id number] [address] [place] MCHC (RBC) [Mass/Vol] 33.6 g/dL Normal 30.5-36.0 [facility] Comment on above: Order Comment: Speci men Type: BLOOD SPECIMENOrdering Facility: [facility] Address: [address] [place] [address] Performed By: #### 5 7021-8 ####[facility] LABIA [id number] [address] STATES [facility] MCV (RBC) [Entitic vol] 95.5 fL Normal 80.0-100.0 [facility] Comment on above: Order Comment: Speci men Type: BLOOD SPECIMENOrdering Facility: [facility] Address: [address] [place] [address] Performed By: #### 5 7021-8 ####[facility] LABIA [id number] [address] STATES [facility] Monocytes (Bld) [#/Vol] 0.54 10*3/uL Normal <0.87 [facility] Comment on above: Order Comment: Speci men Type: BLOOD SPECIMENOrdering Facility: [facility] Address: [address] [place] [address] Performed By: #### 5 7021-8 ####[facility] LABCLIA [id number] [address] Monocytes/100 WBC (Bld) 6.5 % Normal [facility] Comment on above: Order Comment: Speci men Type: BLOOD SPECIMENOrdering Facility: [facility] Address: [address] [place] [address] Performed By: #### 5 7021-8 ####[facility] LABCLIA [id number] [place] [address] [place] Neutrophils (Bld) [#/Vol] 5.38 10*3/uL Normal 1.45-7.50 [facility] Comment on above: Order Comment: Speci men Type: BLOOD SPECIMENOrdering Facility: [facility] Address: [address] [place] [address] Performed By: #### 5 7021-8 ####[facility] LABCLIA [id number] [place] [address] [place] Neutrophils/100 WBC (Bld) 64.2 % Normal [facility] Comment on above: Order Comment: Speci men Type: BLOOD SPECIMENOrdering Facility: [facility] Address: [address] [place] [address] Performed By: #### 5 7021-8 ####[facility] LABCLIA [id number] [place] [address] [place] Nucleated RBC (Bld) [#/Vol] 10*3/uL Normal <0.01 [facility] Comment on above: Order Comment: Speci men Type: BLOOD SPECIMENOrdering Facility: [facility] Address: [address] [place] [address] Performed By: #### 5 7021-8 ####[facility] LABCLIA [id number] [place] [id number] [place] Nucleated RBC/100 WBC (Bld) [Ratio] 0.0 /[address] [facility] Comment on above: Order Comment: Speci men Type: BLOOD SPECIMENOrdering Facility: [facility] Address: [address] [place] [address] Performed By: #### 5 7021-8 ####[facility] LABCLIA [id number] [place] [address] [place] Platelet mean volume (Bld) [Entitic vol] 9.9 fL Normal 9.0-12.7 [facility] Comment on above: Order Comment: Speci men Type: BLOOD SPECIMENOrdering Facility: [facility] Address: [address] [place] [address] Performed By: #### 5 7021-8 ####[facility] LABCLIA [id number] [place] [id number] [place] Platelets (Bld) [#/Vol] 269 10*3/uL Normal 150-400 [facility] Comment on above: Order Comment: Speci men Type: BLOOD SPECIMENOrdering Facility: [facility] Address: [address] [place] [address] Performed By: #### 5 7021-8 ####[facility] LABIA [id number] [place] [address] [place] RBC (Bld) [#/Vol] 4.49 10*6/uL Normal 3.90-5.20 [facility] Comment on above: Order Comment: Speci men Type: BLOOD SPECIMENOrdering Facility: [facility] Address: [address] [place] [address] Performed By: #### 5 7021-8 ####[facility] LABCLIA [id number] [place] [id number] [place] WBC (Bld) [#/Vol] 8.37 10*3/uL Normal 3.70-11.00 [facility] Comment on above: Order Comment: Speci men Type: BLOOD SPECIMENOrdering Facility: [facility] Address: [address] [place] [address] Performed By: #### 5 7021-8 ####[facility] LABCLIA [id number] [place] [id number] [place] CNOVon 06-16-[address] [facility] CNPNon 06-16-[address] [facility] CRP SerPl-mCncon 06-16-2024 CRP [Mass/Vol] mg/L Normal <0.9 [facility] Comment on above: Order Comment: Nabeel montero Type: BLOOD SPECIMENOrdering Facility: [facility] Address: [address] [place] [address] Performed By: #### 4 485-9, 4498-2, 1987-5, 13045-8 ####[facility] [id number] [place] [address] [place] Cardiolipin IgA Ser IA-aCnco n 06-16-2024 Cardiolipin IgA IA Qn (S) <9.0 Normal <12.0 [facility] Comment on above: Order Comment: Nabeel montero Type: BLOOD SPECIMENOrdering Facility: [facility] Address: [address] [place] [address] Result Comment: <12 APL Hnquglwr12-72 APL Indeterminate>20 APL PositiveThe following results were obtained with the [employer] QUANTA Lite WAQAS IgA III CARLOS. Cardiolipin IgA values obtained with the different manufacturers' assay methods may not be used interchangeably. The magnitude of the reported IgA levels cannot be correlated to an endpoint titer. Performed By: #### 3 3935-8, 5076-5, CARDIG, BETA2G, BETA2M ####[facility] [id number] [place] [address] [place] Centromere Ab IF Ql (S)on Centromere Ab Qn (S) 0.3 AI Normal <1.0 [facility] Comment on above: Order Comment: Speci winston Type: BLOOD SPECIMENOrdering Facility: [facility] Address: [address] [place] [address] Result Comment: Anti -centromere antibody is used as in aid in diagnosis of systemic sclerosis. Clinical correlation is required.Test Methodology: Multiplex flow immunoassay. Performed By: #### 5 1775-5, 12381-7, 97591-7, 94606-6, 91102-2, 27114-5, 95853-2, 52474-3 ####[facility] LABCLIA [id number] [place] [address] [place] CENTROMERE AB QUAL Negative Normal Negative [facility] Comment on above: Order Comment: Speci men Type: BLOOD SPECIMENOrdering Facility: [facility] Address: [address] [place] [address] Performed By: #### 5 1775-5, 45480-3, 19768-0, 72387-6, 19747-6, 40110-4, 80796-7, 81044-9 ####[facility] LABCLIA [id number] [place] [address] [place] Chromatin Ab Qnon 06-16-2024 CHROMATIN AB QUAL Negative Normal Negative [facility] Comment on above: Order Comment: Speci men Type: BLOOD SPECIMENOrdering Facility: [facility] Address: [address] [place] [address] Performed By: #### 5 1775-5, 95498-0, 81558-0, 81347-2, 95312-2, 47621-1, 36512-0, 77889-3 ####[facility] LABCLIA [id number] [place] [address] [place] Chromatin Ab SerPl-aCncon Chromatin Ab Qn <0.2 Normal <1.0 [facility] Comment on above: Order Comment: Speci men Type: BLOOD SPECIMENOrdering Facility: [facility] Address: [address] [place] [address] Result Comment: Test Methodology: Multiplex flow immunoassay. Performed By: #### 5 1775-5, 19284-0, 76738-2, 37106-3, 72717-8, 29024-4, 73535-2, 43754-5 ####[facility] LABCLIA [id number] [place] [id number] [place] Cyclic citrullinated peptide IgG Qnon 06-16-2024 CCP ANTIBODY IGG QUALITATIVE Negative Normal Negative [facility] Comment on above: Order Comment: Speci men Type: BLOOD SPECIMENOrdering Facility: [facility] Address: [address] [place] [address] Performed By: #### 3 3935-8, 5076-5, CARDIG, BETA2G, BETA2M ####[facility] LABCLIA [id number] [place] [address] [place] DNA double strand Ab IA Qn ( S)on 06-16-2024 DNA ANTIBODY 17 IU/mL Normal <=200 [facility] Comment on above: Order Comment: Speci men Type: BLOOD SPECIMENOrdering Facility: [facility] Address: [address] [place] [address] Result Comment: Nega tive: <200 IU/mLEquivocal: 201-300 IU/mLModerate Positive: 301-800 IU/mLStrong Positive: >801 IU/mL Performed By: #### H ISTN, 83111-0 ####[facility] LABIA [id number] [place] [address] [place] DNA ANTIBODY QUALITATIVE INTERPRETATION Negative Normal Negative [facility] Comment on above: Order Comment: Speci men Type: BLOOD SPECIMENOrdering Facility: [facility] Address: [address] [place] [address] Performed By: #### H ISTN, 63222-4 ####[facility] LABIA [id number] [place] [address] [place] AMADEO Jo1 Ab Ser-aCncon 2023 Radha-1 extractable nuclear Ab Qn (S) <0.2 Normal <1.0 [facility] Comment on above: Order Comment: Speci men Type: BLOOD SPECIMENOrdering Facility: [facility] Address: [address] [place] [address] Performed By: #### 5 1775-5, 30954-1, 25404-5, 64796-1, 47671-4, 45648-9, 55791-2, 03407-0 ####[facility] LABCLIA [id number] [place] [address] [place] AMADEO DIGITAL MEDIA STRATEGIST Ab Ser-aCncon 2023 Ribonucleoprotein extractable nuclear Ab Qn (S) <0.2 Normal <1.0 [facility] Comment on above: Order Comment: Speci men Type: BLOOD SPECIMENOrdering Facility: [facility] Address: [address] [place] [address] Performed By: #### 5 1775-5, 35160-3, 05710-7, 58881-0, 18042-0, 23216-9, 42445-3, 79591-2 ####[facility] LABIA [id number] [place] [address] [place] AMADEO SM IgG Ser-aCncon 2023 Mitchell extractable nuclear IgG Qn (S) <0.2 Normal <1.0 [facility] Comment on above: Order Comment: Speci men Type: BLOOD SPECIMENOrdering Facility: [facility] Address: [address] [place] [address] Performed By: #### 5 5-5, 27802-1, 34547-9, 28547-4, 13419-2, 76324-7, 54316-9, 08622-4 ####[facility] LABIA [id number] [place] [address] [place] AMADEO SS-A Ab Ser-aCncon 06-16 Sjogrens syndrome-A extractable nuclear Ab Qn (S) <0.2 Normal <1.0 [facility] Comment on above: Order Comment: Speci men Type: BLOOD SPECIMENOrdering Facility: [facility] Address: [address] [place] [address] Result Comment: Test Methodology: Multiplex flow immunoassay. Performed By: #### 5 1775-5, 63652-2, 53485-5, 51781-1, 78089-6, 88193-2, 43363-2, 87222-0 ####[facility] LABIA [id number] [place] [id number] [place] AMADEO SS-B Ab Ser-aCncon 06-16 Sjogrens syndrome-B extractable nuclear Ab Qn (S) <0.2 Normal <1.0 [facility] Comment on above: Order Comment: Speci men Type: BLOOD SPECIMENOrdering Facility: [facility] Address: [address] [place] [address] Result Comment: Anti -SSB (anti-La) antibody is used as an aid in diagnosis of a variety of systemic autoimmune diseases, especially for Sjogren's syndrome and systemic lupus erythematosus. Clinical correlation is required.Test Methodology: Multiplex flow immunoassay. Performed By: #### 5 1775-5, 35284-6, 97064-2, 32895-7, 41869-2, 91800-7, 80986-2, 55962-3 ####[facility] LABIA [id number] [place] [id number] [place] ESR Westergren method (Bld) [Velocity]on 06-16-2024 ESR (Bld) [Velocity] 2 mm/h Normal 0-20 [facility] Comment on above: Order Comment: Speci men Type: BLOOD SPECIMENOrdering Facility: [facility] Address: [address] [place] [address] Performed By: #### 4 537-7 ####[facility] [id number] [place] [id number] [place] Esophagus Dual Contraston Esophagus Dual Contrast [facility] Imaging Services [address] [place], [place] [id number] Esophagus Dual Contrast MR#: [id number] Acct: [id number] Name: DORY ANDREWS GREG Rep #: [id number] : 2000 F 23 From: Jr guidry MD PCP: Dr. Wu Herrera MD Status: REG CLI Study: Esophagus Dual Contrast Date of Exam: 06/16/24 Exam# [id number] Ordering Dr: John De Anda MD [id number] STUDY: X-RAY - ESOPHAGUS (BARIUM SWALLOW) WITH FLUOROSCOPY REASON FOR EXAM: Female, 23 years old. DYSPHAGIA TECHNIQUE: 106 fluoroscopic view(s) of the esophagus were obtained following swallowing of barium. FLUOROSCOPY TIME (if supplied): (41 seconds) minutes/seconds. 2.9 mGy. COMPARISON: None. FINDINGS: There is no demonstrated esophageal foreign body. There is no demonstrated stricture or mucosal abnormality. Normal gastroesophageal junction, without a demonstrated hiatal hernia. The patient ingested a 12 mm tablet of barium without any difficulties. Normal visualized aortic arch and descending thoracic aorta. Normal visualized pulmonary parenchyma. Normal visualized osseous structures of the thorax. RAD/Esophagus Dual Contrast IMPRESSION: Normal plain film x-ray examination (barium swallow) of the esophagus. Electronically Signed: Jr Shaver MD at 9:52 EST Reading Location ID and State: [address] [place] [address] , Service support , CC: Dr. Wu Herrera MD; Dr. John De Anda MD Clinical Law Professor: Signed Normal [facility] Ferritin [Mass/Vol] 28.9 ng/mL Normal 14.7-205.1 [facility] Comment on above: Order Comment: Speci men Type: BLOOD SPECIMENOrdering Facility: [facility] Address: [address] [place] [address] Performed By: #### 1 1572-5, 2276-4 ####[facility] LABCLIA [id number] [address] [place] Folate SerPl-mCncon 06-16-20 24 Folate [Mass/Vol] 13.5 ng/mL Normal >4.7 [facility] Comment on above: Order Comment: Speci men Type: BLOOD SPECIMENOrdering Facility: [facility] Address: [address] [place] [address] Performed By: #### 2 885-2, 2284-8 ####[facility] LABIA [id number] [address] [place] HISTONE IGG ABYon 06-16-2024 HISTONE 0.3 Units Normal <1.0 [facility] Comment on above: Order Comment: Speci men Type: BLOOD SPECIMENOrdering Facility: [facility] Address: [address] [place] [address] Performed By: #### H ISSTACEY, 82532-8 ####[facility] [id number] [address] HISTONE IGG QUALITATIVE Negative Normal [facility] Comment on above: Order Comment: Speci men Type: BLOOD SPECIMENOrdering Facility: [facility] Address: [address] [place] [address] Result Comment: Anti -histone IgG antibody test is used as an aid in diagnosis of idiopathic and drug-induced systemic lupus erythematosus. It may be positive in other systemic autoimmune diseases. Clinical Correlation is required. Performed By: #### H ANDREY, 95229-4 ####[facility] LABIA [id number] [address] IMMUNOFIXATION SCREEN, SERUM on 06-16-2024 MPA RESULT No M protein is identified. Normal No M protein is identified. [facility] Comment on above: Order Comment: Speci men Type: BLOOD SPECIMENOrdering Facility: [facility] Address: [address] [place] [address] Performed By: #### I FES ####[facility] LABCLIA [id number] [place] [address] [place] STAFF REVIEW (MPA) Reviewed by Robert Stout MD, Ph.D ([id number]) Normal [facility] Comment on above: Order Comment: Speci men Type: BLOOD SPECIMENOrdering Facility: [facility] Address: [address] [place] [address] Performed By: #### I FESC ####[facility] LABCLIA [id number] [place] [address] [place] Iron and Iron binding capaci ty panelon 06-16-2024 Iron [Mass/Vol] 95 ug/dL Normal 41-186 [facility] Comment on above: Order Comment: Speci men Type: BLOOD SPECIMENOrdering Facility: [facility] Address: [address] [place] [address] Performed By: #### 4 485-9, 4498-2, 1987-11, ####[facility] LABCLIA [id number] [place] [address] [place] Iron binding capacity [Mass/Vol] 351 ug/dL Normal 232-386 [facility] Comment on above: Order Comment: Speci men Type: BLOOD SPECIMENOrdering Facility: [facility] Address: [address] [place] [address] Performed By: #### 4 485-9, 4498-2, 1987-11, ####[facility] LABCLIA [id number] [place] [address] [place] Iron/TIBC [Molar ratio] 27.1 % Normal 15.0-57.0 [facility] Comment on above: Order Comment: Speci men Type: BLOOD SPECIMENOrdering Facility: [facility] Address: [address] [place] [address] Performed By: #### 4 485-9, 4498-2, 1987-11, ####[facility] LABCLIA [id number] [place] [id number] [facility] [place] Radha-1 extractable nuclear Ab Qn (S)on 06-16-2024 RADHA 1 ANTIBODY QUAL Negative Normal Negative [facility] Comment on above: Order Comment: Nabeel montero Type: BLOOD SPECIMENOrdering Facility: [facility] Address: [address] [place] [address] Result Comment: Anti -RADHA-1 antibody is used as an aid in diagnosis of polymyositis and dermatomyositis especially with pulmonary involvement. A negative result cannot rule out polymyositis or dermatomyositis. Clinical correlation is required.Test Methodology: Multiplex flow immunoassay. Performed By: #### 5 1775-5, 07944-3, 70469-0, 28282-7, 39155-4, 26478-6, 75209-4, 83466-3 ####[facility] LABCLIA [id number] [place] [address] [place] KAPPA/HARDY,FREE,SERon 2023 Immunoglobulin light chains.kappa.free (S) [Mass/Vol] 10.6 mg/L Normal 3.3-19.4 [facility] Comment on above: Order Comment: Nabeel montero Type: BLOOD SPECIMENOrdering Facility: [facility] Address: [address] [place] [address] Result Comment: Rare ly, increased serum free light chains levels may not be detected or accurately quantified due to prozone phenomenon or in high viscosity samples using this immunoturbidimetric assay. Correlation with other laboratory results and clinical findings is recommended.The [place] Free Light Chain was performed using the Binding Site Optilite immunoturbidimetric method. Result obtained with different assay methods or kits cannot be used interchangeably. Performed By: #### K LFRS ####[facility] LABCLIA [id number] [place] [address] [place] Immunoglobulin light chains.kappa/Immuno globulin light chains.lambda (S) [Mass ratio] 1.09 Normal 0.26-1.65 [facility] Comment on above: Order Comment: Nabeel montero Type: BLOOD SPECIMENOrdering Facility: [facility] Address: [address] [place] [address] Performed By: #### K LFRS ####[facility] LABCLIA [id number] [place] [address] [place] Immunoglobulin light chains.lambda.free [Mass/Vol] 9.7 mg/L Normal 5.7-26.3 [facility] Comment on above: Order Comment: Speci men Type: BLOOD SPECIMENOrdering Facility: [facility] Address: [address] [place] [address] Result Comment: Rare ly, increased serum free light chains levels may not be detected or accurately quantified due to prozone phenomenon or in high viscosity samples using this immunoturbidimetric assay. Correlation with other laboratory results and clinical findings is recommended.The [place] Free Light Chain was performed using the Binding Site Optilite immunoturbidimetric method. Result obtained with different assay methods or kits cannot be used interchangeably. Performed By: #### K LFRS ####[facility] LABIA [id number] [place] [address] [place] LUPUS PANELon 06-16-2024 aPTT Coag (Bld) [Time] 35.9 s Normal 31.5-38.3 [facility] Comment on above: Order Comment: Speci men Type: BLOOD SPECIMENOrdering Facility: [facility] Address: [address] [place] [address] Result Comment: This test was developed, and its performance characteristics determined by the [facility] Department of Pathology and Laboratory Medicine. It has not been cleared or approved by the FDA. The [facility] Department of Pathology and Laboratory Medicine is regulated under CLIA as qualified to perform high-complexity testing. This test is used for clinical purposes. It should not be regarded as investigational or for research. Performed By: #### L [id number], LUPPL ####[facility] LABCLIA [id number] [address] [place] aPTT Coag (Bld) [Time] 28.6 s Normal 24.0-35.1 [facility] Comment on above: Order Comment: Speci men Type: BLOOD SPECIMENOrdering Facility: [facility] Address: [address] [place] [address] Performed By: #### L [id number], LUPPL ####[facility] LABCLIA [id number] [place] [address] [place] aPTT W excess hexagonal phase phospholipid Coag (PPP) [Time] 45.6 seconds Normal 34.0-51.8 [facility] Comment on above: Order Comment: Speci men Type: BLOOD SPECIMENOrdering Facility: [facility] Address: [address] [place] [address] Performed By: #### L [id number], LUPPL ####[facility] LABIA [id number] [place] [address] [place] Coagulation factor X activated act Coag Qn (PPP) <0.10 Normal <0.10 [facility] Comment on above: Order Comment: Speci men Type: BLOOD SPECIMENOrdering Facility: [facility] Address: [address] [place] [address] Result Comment: This test was developed, and its performance characteristics determined by the [facility] Department of Pathology and Laboratory Medicine. It has not been cleared or approved by the FDA. The [facility] Department of Pathology and Laboratory Medicine is regulated under CLIA as qualified to perform high-complexity testing. This test is used for clinical purposes. It should not be regarded as investigational or for research. Performed By: #### L [id number], LUPPL ####[facility] LABCLIA [id number] [place] [address] [place] Delta dRVVT Coag (PPP) [Time diff] 1.9 delta seconds Normal <7.1 [facility] Comment on above: Order Comment: Speci men Type: BLOOD SPECIMENOrdering Facility: [facility] Address: [address] [place] [address] Performed By: #### L [id number], LUPPL ####[facility] LABCLIA [id number] [place] [address] [place] dRVVT Coag (PPP) [Time] 32.0 s Normal 32.0-45.7 [facility] Comment on above: Order Comment: Speci men Type: BLOOD SPECIMENOrdering Facility: [facility] Address: [address] [place] [address] Performed By: #### L [id number], LUPPL ####[facility] LABIA [id number] [place] [address] [place] dRVVT factor substitution immediately after 1:2 addition of normal plasma Coag (PPP) [Time] 33.3 seconds Normal 32.0-45.7 [facility] Comment on above: Order Comment: Speci men Type: BLOOD SPECIMENOrdering Facility: [facility] Address: [address] [place] [address] Performed By: #### L [id number], LUPPL ####[facility] [id number] [place] [address] [place] dRVVT W excess hexagonal phase phospholipid actual/normal Coag (PPP) [Relative time] 43.6 seconds Normal 34.2-47.9 [facility] Comment on above: Order Comment: Speci men Type: BLOOD SPECIMENOrdering Facility: [facility] Address: [address] [place] [address] Performed By: #### L [id number], LUPPL ####[facility] LABIA [id number] [place] [address] [place] dRVVT/dRVVT.excess phospholipid Coag (PPP) [Ratio] 1.04 Normal <1.32 [facility] Comment on above: Order Comment: Speci men Type: BLOOD SPECIMENOrdering Facility: [facility] Address: [address] [place] [address] Performed By: #### L [id number], LUPPL ####[facility] LABCLIA [id number] [address] [place] PLATELET NEUT 1.6 Seconds Normal <1.9 [facility] Comment on above: Order Comment: Nabeel montero Type: BLOOD SPECIMENOrdering Facility: [facility] Address: [address] [place] [address] Result Comment: This test was developed, and its performance characteristics determined by the [facility] Department of Pathology and Laboratory Medicine. It has not been cleared or approved by the FDA. The [facility] Department of Pathology and Laboratory Medicine is regulated under CLIA as qualified to perform high-complexity testing. This test is used for clinical purposes. It should not be regarded as investigational or for research. Performed By: #### L [id number], LUPPL ####[facility] [id number] [place] [address] [place] Thrombin time Coag (PPP) [Time] <16.8 Normal <18.6 [facility] Comment on above: Order Comment: Nabeel montero Type: BLOOD SPECIMENOrdering Facility: [facility] Address: [address] [place] [address] Performed By: #### L [id number], LUPPL ####[facility] [id number] [place] [address] [place] LUPUS PANEL INTERPon 05-2 024 Lupus anticoagulant (PPP) [Interp] Normal [facility] Comment on above: Order Comment: Nbaeel montero Type: BLOOD SPECIMENOrdering Facility: [facility] Address: [address] [place] [address] Result Comment: Maikel al - see comment below.Laboratory testing was performed to evaluate the presence of a lupus anticoagulant and antiphospholipid antibodies. The PT and APTT values are both within the normal range. A normal thrombin time (TT) and negative anti-Xa screen makes a heparin, anti-Xa drug and/or direct thrombin inhibitor effect unlikely.LUPUS ANTICOAGULANT STUDIES: There is no evidence for a lupus anticoagulant or other coagulation inhibitor at this time.ANTIPHOSPHOLIPID ANTIBODY STUDIES: The IgG, IgM and IgA anticardiolipin antibody titers were all negative. Both the IgG and IgM Beta-2 Glycoprotein I antibody titers were negative.The criteria for the diagnosis of a Lupus Anticoagulant, as detailed by the Subcommittee on Lupus Anticoagulants and Antiphospholipid Antibodies of the Scientific and Standardization Committee of the International Society on Thrombosis and Haemostasis (ISTH), are the following: (1) A prolonged phospholipid-dependent clotting test (screening test); (2) Evidence for an inhibitor (1:1 mix of patient:normal plasma); (3) Evidence that the inhibitor is phospholipid dependent and (4) Exclusion of specific inhibitors (ie, fVIII inhibitors, direct thrombin inhibitors, or heparin). Thromb. Haemost. 74:1185 (1995).THE FOLLOWING TESTS WERE ADDED AND ARE REPORTED SEPARATELY: DRVVT, Hexagonal phase phospholipid neutralization and PNP. Performed By: #### L [id number], LUPPL ####[facility] LABIA [id number] [address] [place] [facility] Pathologist name Reviewed by Annalise Howard MD Normal [facility] Comment on above: Order Comment: Speci men Type: BLOOD SPECIMENOrdering Facility: [facility] Address: [address] [place] [address] Performed By: #### L [id number], LUPPL ####[facility] [id number] [place] [address] [place] MONOCLONAL PROT UR W/INTERPo n 06-16-2024 STAFF REVIEW ([place]) Reviewed by Robert Stout MD, Ph.D ([id number]) Normal [facility] Comment on above: Order Comment: Speci men Type: URINE SPECIMENOrdering Facility: [facility] Address: [address] [place] [address] Performed By: #### U RMPA ####[facility] LABIA [id number] [address] [place] UMPA RESULT No M protein is identified. Normal No M protein is identified. [facility] Comment on above: Order Comment: Speci men Type: URINE SPECIMENOrdering Facility: [facility] Address: [address] [place] [address] Performed By: #### U RMPA ####[facility] LABCLIA [id number] [place] [address] [place] Magnesium SerPl-mCncon 06-16 Magnesium [Mass/Vol] 2.2 mg/dL Normal 1.7-2.3 [facility] Comment on above: Order Comment: Speci men Type: BLOOD SPECIMENOrdering Facility: [facility] Address: [address] [place] [address] Performed By: #### 1 9123-9 ####[facility] LABIA [id number] [place] [address] [place] PROTEIN ELECTROPHORESIS SERU M (P)on 06-16-2024 Albumin [Mass/Vol] 4.92 g/dL Normal 3.43-5.41 [facility] Comment on above: Order Comment: Speci men Type: BLOOD SPECIMENOrdering Facility: [facility] Address: [address] [place] [address] Performed By: #### L [id number] ####[facility] LABIA [id number] [place] [address] [place] Alpha 1 globulin Elph [Mass/Vol] 0.26 g/dL Normal 0.18-0.43 [facility] Comment on above: Order Comment: Speci men Type: BLOOD SPECIMENOrdering Facility: [facility] Address: [address] [place] [address] Performed By: #### L [id number] ####[facility] LABCLIA [id number] [place] [id number] [place] Alpha 2 globulin Elph [Mass/Vol] 0.64 g/dL Normal 0.42-0.98 [facility] Comment on above: Order Comment: Speci men Type: BLOOD SPECIMENOrdering Facility: [facility] Address: [address] [place] [address] Performed By: #### L [id number] ####[facility] LABCLIA [id number] [place] [address] [place] Beta globulin Elph [Mass/Vol] 0.79 g/dL Normal 0.61-1.17 [facility] Comment on above: Order Comment: Speci men Type: BLOOD SPECIMENOrdering Facility: [facility] Address: [address] [place] [address] Performed By: #### L [id number] ####[facility] LABCLIA [id number] [place] [address] [place] Gamma globulin Elph [Mass/Vol] 0.89 g/dL Normal 0.53-1.51 [facility] Comment on above: Order Comment: Speci men Type: BLOOD SPECIMENOrdering Facility: [facility] Address: [address] [place] [address] Performed By: #### L [id number] ####[facility] LABCLIA [id number] [place] [address] [place] M-PROTEIN LOCATION Normal [facility] Comment on above: Order Comment: Speci men Type: BLOOD SPECIMENOrdering Facility: [facility] Address: [address] [place] [address] Result Comment: Not Applicable. Performed By: #### L [id number] ####[facility] LABCLIA [id number] [place] [address] [place] Protein Fractions [Interp] No definitive M protein is identified on protein electrophoresis. Normal No definitive M protein is identified on protein electrophoresi s. [facility] Comment on above: Order Comment: Speci men Type: BLOOD SPECIMENOrdering Facility: [facility] Address: [address] [place] [address] Performed By: #### L [id number] ####[facility] LABCLIA [id number] [place] [address] [place] Protein.monoclonal Elph [Mass/Vol] 0.00 g/dL Normal <=0.00 [facility] Comment on above: Order Comment: Speci men Type: BLOOD SPECIMENOrdering Facility: [facility] Address: [address] [place] [address] Performed By: #### L [id number] ####[facility] [id number] [address] OF [facility] SPE STAFF REVIEW Reviewed by Robert Stout MD, Ph.D ([id number]) Normal [facility] Comment on above: Order Comment: Speci men Type: BLOOD SPECIMENOrdering Facility: [facility] Address: [address] [place] [address] Performed By: #### L [id number] ####[facility] [id number] [address] [place] PT panel Coag (PPP)on 2023 INR Coag (PPP) [Relative time] 1.0 {INR} Normal 0.9-1.3 [facility] Comment on above: Order Comment: Speci men Type: BLOOD SPECIMENOrdering Facility: [facility] Address: [address] [place] [address] Result Comment: Angelica min K Antagonist (VKA) Therapeutic Range: INR 2 to 3 (Target INR of 2.5)Note: For patients treated with VKA drugs, such as warfarin, the [place] [employer] 2012 Guideline recommends a therapeutic INR range of 2 to 3 (target INR of 2.5). This recommendation includes high-risk patients with antiphospholipid syndrome with previous arterial or venous thromboembolism, current-generation mechanical or bioprosthetic aortic heart valve replacement.Note: Patients with mechanical aortic valve replacement and additional risk factors for thromboembolic events (atrial fibrillation, previous thromboembolism, LV dysfunction, hypercoagulable conditions) or an older generation mechanical AVR (i.e., ball in-Cage) or any mechanical MVR should have a INR therapeutic range of 2.5 to 3.5 (target INR of 3).Maria M HA, et al. Chest 2012, 141:7S-47SCasper MEREDITH, et al. [facility] 2017, 70: 252-289Frozen Plasma Aliquot Performed By: #### 1 4979-9, 40961-0 ####[facility] LABIA [id number] [address] [address] [place] PT Coag (PPP) [Time] 10.7 s Normal 9.7-13.0 [facility] Comment on above: Order Comment: Speci men Type: BLOOD SPECIMENOrdering Facility: [facility] Address: [address] [place] [address] Performed By: #### 1 4979-9, 39827-2 ####[facility] LABIA [id number] [place] [id number] [place] Prot SerPl-mCncon 06-16-2024 Protein [Mass/Vol] 7.5 g/dL Normal 6.3-8.0 [facility] Comment on above: Order Comment: Speci men Type: BLOOD SPECIMENOrdering Facility: [facility] Address: [address] [place] [address] Performed By: #### 2 885-2, 2284-8 ####[facility] [id number] [place] [address] [place] Prot/Creat Uron 06-16-2024 Protein/Creatinine (U) [Mass ratio] 0.09 mg/mg Normal <0.15 [facility] Comment on above: Order Comment: Speci men Type: URINE SPECIMENOrdering Facility: [facility] Address: [address] [place] [address] Result Comment: Adul t Proteinuria Categories:<0.15 mg/mg is considered normal to mildly increased0.15 - 0.50 mg/mg is considered moderately increased>0.50 mg/mg is considered severely increasedKDIGO. (2013). KDIGO 2012 Clinical Practice Guideline for the Evaluation and Management of Chronic Kidney Disease. Official Journal of the International Society of Nephrology, 3(1), 1-150. Performed By: #### 2 890-2 ####[facility] [id number] [place] [id number] [place] Protein/Creatinine (U) [Mass ratio]on 06-16-2024 Creatinine (U) [Mass/Vol] 85.0 mg/dL Normal 20.0-300.0 [facility] Comment on above: Order Comment: Speci men Type: URINE SPECIMENOrdering Facility: [facility] Address: [address] [place] [address] Performed By: #### 2 890-2 ####[facility] LABIA [id number] [place] [address] [place] Protein (U) [Mass/Vol] 8 mg/dL Normal 0-20 [facility] Comment on above: Order Comment: Speci men Type: URINE SPECIMENOrdering Facility: [facility] Address: [address] [place] [address] Performed By: #### 2 890-2 ####[facility] SYSTEM [id number] [place] [address] [place] Rheumatoid fact SerPl-aCncon 06-16-2024 Rheumatoid factor Qn [IU]/mL Normal <16 [facility] Comment on above: Order Comment: Speci men Type: BLOOD SPECIMENOrdering Facility: [facility] Address: [address] [place] [address] Performed By: #### 1 1572-5, 2276-4 ####[facility] [id number] [place] [address] [place] Ribonucleoprotein extractabl e nuclear Ab Qn (S)on 06-16-2024 ANTI-DIGITAL MEDIA STRATEGIST QUAL Negative Normal Negative [facility] Comment on above: Order Comment: Speci men Type: BLOOD SPECIMENOrdering Facility: [facility] Address: [address] [place] [address] Performed By: #### 5 1775-5, 01018-1, 24317-9, 51526-0, 04428-0, 92380-4, 58454-4, 84437-5 ####[facility] LABIA [id number] [place] [address] [place] RIBOSOMAL DIGITAL MEDIA STRATEGIST QUAL Negative Normal Negative [facility] Comment on above: Order Comment: Nabeel montero Type: BLOOD SPECIMENOrdering Facility: [facility] Address: [address] [place] [address] Result Comment: Anti -Ribosomal RNA (Ribosomal P) antibody is used as an aid in diagnosis of systemic autoimmune diseases especially systemic lupus erythematosus and mixed connective tissue disease. Cross-reactivity with Anti-mitchell antibody is not uncommon. Clinical correlation is required.Test Methodology: Multiplex flow immunoassay. Performed By: #### 5 1775-5, 15353-2, 50483-2, 85553-3, 24200-2, 64300-2, 57282-8, 01276-0 ####[facility] LABCLIA [id number] [place] [address] [place] SCL-70 extractable nuclear I gG IA Qn (S)on 06-16-2024 SCLERODERMA AB QUAL Negative Normal Negative [facility] Comment on above: Order Comment: Nabeel montero Type: BLOOD SPECIMENOrdering Facility: [facility] Address: [address] [place] [address] Performed By: #### 5 1775-5, 77393-4, 85137-6, 26278-6, 10286-0, 76989-2, 99130-0, 27270-7 ####[facility]IA [id number] [place] [address] [place] SCLERODERMA IGG AB <0.2 Normal <1.0 [facility] Comment on above: Order Comment: Nabeel [facility] Type: BLOOD SPECIMENOrdering Facility: [facility] Address: [address] [place] [address] Result Comment: Scl- 70/Scleroderma antibody test is used as an aid in diagnosis of systemic sclerosis especially the diffuse cutaneous form. A negative result cannot rule out systemic sclerosis. The final interpretation should consider clinical picture and other test results such as anti-centromere antibody. Test Methodology: Multiplex flow immunoassay. Performed By: #### 5 1775-5, 17605-7, 39441-1, 97949-1, 50148-5, 76974-9, 70639-8, 72006-0 ####[facility]IA [id number] [place] [address] [place] Sjogrens syndrome-A extracta ble nuclear Ab Qn (S)on 06-16-2024 SSA ANTIBODY QUAL Negative Normal Negative [facility] Comment on above: Order Comment: Speci men Type: BLOOD SPECIMENOrdering Facility: [facility] Address: [address] [place] [address] Performed By: #### 5 1775-5, 76538-4, 74371-2, 39110-9, 64346-4, 25009-1, 80827-9, 02922-8 ####[facility]IA [id number] [place] [address] [place] Sjogrens syndrome-B extracta ble nuclear Ab Qn (S)on 06-16-2024 SSB ANTIBODY QUAL Negative Normal Negative [facility] Comment on above: Order Comment: Speci men Type: BLOOD SPECIMENOrdering Facility: [facility] Address: [address] [place] [address] Performed By: #### 5 1775-5, 37916-1, 90350-6, 49476-2, 34854-6, 81620-7, 16960-2, 43213-2 ####[facility]IA [id number] [place] [address] [place] Mitchell extractable nuclear Ig G Qn (S)on 06-16-2024 SM ANTIBODY QUAL Negative Normal Negative [facility] Comment on above: Order Comment: Speci men Type: BLOOD SPECIMENOrdering Facility: [facility] Address: [address] [place] [address] Result Comment: Anti -Sm (Mitchell) antibody is used as an aid in diagnosis of systemic lupus erythematosus and its presence is associated with renal disease. A negative result cannot rule out systemic lupus erythematosus. Clinical correlation is required.Test Methodology: Multiplex flow immunoassay. Performed By: #### 5 1775-5, 63089-5, 35397-8, 64048-2, 70344-7, 37323-7, 72460-8, 31567-4 ####[facility] LABCLIA [id number] [place] [address] [place] Urinalysis complete panel (U )on 06-16-2024 Bacteria LM.HPF (Urine sed) [#/Area] Negative Normal Negative [facility] Comment on above: Order Comment: Speci men Type: URINE SPECIMENOrdering Facility: [facility] Address: [address] [place] [address] Performed By: #### 2 4356-8 ####[facility]IA [id number] [place] [address] [place] Bilirubin Ql (U) Negative Normal Negative [facility] Comment on above: Order Comment: Speci men Type: URINE SPECIMENOrdering Facility: [facility] Address: [address] [place] [address] Performed By: #### 2 4356-8 ####[facility]IA [id number] [place] [address] [place] Clarity (Unsp spec) Clear Normal Clear [facility] Comment on above: Order Comment: Speci men Type: URINE SPECIMENOrdering Facility: [facility] Address: [address] [place] [address] Performed By: #### 2 4356-8 ####[facility] LABCLIA [id number] [place] [address] [place] Color (U) Yellow Normal Yellow [facility] Comment on above: Order Comment: Speci men Type: URINE SPECIMENOrdering Facility: [facility] Address: [address] [place] [address] Performed By: #### 2 4356-8 ####[facility] LABCLIA [id number] [address] [place] Epithelial cells LM.HPF (Urine sed) [#/Area] Few Normal [facility] Comment on above: Order Comment: Speci men Type: URINE SPECIMENOrdering Facility: [facility] Address: [address] [place] [address] Performed By: #### 2 4356-8 ####[facility] LABCLIA [id number] [place] [address] [place] Glucose Test strip (U) [Mass/Vol] Negative Normal Negative [facility] Comment on above: Order Comment: Speci men Type: URINE SPECIMENOrdering Facility: [facility] Address: [address] [place] [address] Performed By: #### 2 4356-8 ####[facility] LABCLIA [id number] [place] [address] [place] Hemoglobin Ql (U) Negative Normal Negative [facility] Comment on above: Order Comment: Speci men Type: URINE SPECIMENOrdering Facility: [facility] Address: [address] [place] [address] Performed By: #### 2 4356-8 ####[facility] LABCLIA [id number] [place] [address] [place] Hyaline casts (Urine sed) [#/Area] 0 /[LPF] Normal 0 /LPF [facility] Comment on above: Order Comment: Speci men Type: URINE SPECIMENOrdering Facility: [facility] Address: [address] [place] [address] Performed By: #### 2 4356-8 ####[facility] LABCLIA [id number] [place] [address] [place] Ketones Ql (U) Trace Abnormal Negative [facility] Comment on above: Order Comment: Speci men Type: URINE SPECIMENOrdering Facility: [facility] Address: [address] [place] [address] Performed By: #### 2 4356-8 ####[facility] LABCLIA [id number] [place] [address] [place] Leukocyte esterase Test strip Ql (U) Negative Normal Negative [facility] Comment on above: Order Comment: Speci men Type: URINE SPECIMENOrdering Facility: [facility] Address: [address] [place] [address] Performed By: #### 2 4356-8 ####[facility] LABCLIA [id number] [place] [address] [place] Nitrite Ql (U) Negative Normal Negative [facility] Comment on above: Order Comment: Speci men Type: URINE SPECIMENOrdering Facility: [facility] Address: [address] [place] [address] Performed By: #### 2 4356-8 ####[facility] LABCLIA [id number] [place] [address] [place] pH (U) 6.5 [pH] Normal <8.5 [facility] Comment on above: Order Comment: Speci men Type: URINE SPECIMENOrdering Facility: [facility] Address: [address] [place] [address] Performed By: #### 2 4356-8 ####[facility] LABIA [id number] [place] [address] [place] Protein (U) [Mass/Vol] Negative Normal Negative [facility] Comment on above: Order Comment: Speci men Type: URINE SPECIMENOrdering Facility: [facility] Address: [address] [place] [address] Performed By: #### 2 4356-8 ####[facility] LABCLIA [id number] [place]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 Comment: PT D ISCHARGED Performed By: #### L 400.7600, L400.0001 ####[facility] [address] [place], [address] GLUCOSE, UR Normal Normal [facility] Comment on above: Order Comment: If fe male of childbearing age (8-55 years old)CLEAN CATCH Result Comment: PT D ISCHARGED Performed By: #### L 400.7600, L400.0001 ####[facility] [address] [place], [address] KETONE UR Normal Negative [facility] Comment on above: Order Comment: If fe male of childbearing age (8-55 years old)CLEAN CATCH Result Comment: PT D ISCHARGED Performed By: #### L 400.7600, L400.0001 ####[facility] [address] [place], [address] LEUK ESTERASE Normal Negative [facility] Comment on above: Order Comment: If fe male of childbearing age (8-55 years old)CLEAN CATCH Result Comment: PT D ISCHARGED Performed By: #### L 400.7600, L400.0001 ####[facility] [address] [place], [address] Mucus Ql (Urine sed) Normal [facility] Comment on above: Order Comment: If fe male of childbearing age (8-55 years old)CLEAN CATCH Result Comment: PT D ISCHARGED Performed By: #### L 400.7600, L400.0001 ####[facility] [address] [place], [address] Nitrite Ql (U) Normal Negative [facility] Comment on above: Order Comment: If fe male of childbearing age (8-55 years old)CLEAN CATCH Result Comment: PT D ISCHARGED Performed By: #### L 400.7600, L400.0001 ####[facility] [address] [place], [address] OCCULT BLOOD-UR Normal Negative [facility] Comment on above: Order Comment: If fe male of childbearing age (8-55 years old)CLEAN CATCH Result Comment: PT D ISCHARGED Performed By: #### L 400.7600, L400.0001 ####[facility] [address] [place], [address] pH UR Normal 5.0 - 8.0 [facility] Comment on above: Order Comment: If fe male of childbearing age (8-55 years old)CLEAN CATCH Result Comment: PT D ISCHARGED Performed By: #### L 400.7600, L400.0001 ####[facility] [address] [place], [address] PROT DIPSTX Normal Negative [facility] Comment on above: Order Comment: If fe male of childbearing age (8-55 years old)CLEAN CATCH Result Comment: PT D ISCHARGED Performed By: #### L 400.7600, L400.0001 ####[facility] [address] [place], [address] RBC Normal 0-5 [facility] Comment on above: Order Comment: If fe male of childbearing age (8-55 years old)CLEAN CATCH Result Comment: PT D ISCHARGED Performed By: #### L 400.7600, L400.0001 ####[facility] [address] [place], [address] SP.GR. DIPSTX Normal 1.002-1.030 [facility] Comment on above: Order Comment: If fe male of childbearing age (8-55 years old)CLEAN CATCH Result Comment: PT D ISCHARGED Performed By: #### L 400.7600, L400.0001 ####[facility] [address] [place], [address] UR Preservative Normal [facility] Comment on above: Order Comment: If fe male of childbearing age (8-55 years old)CLEAN CATCH Result Comment: PT D ISCHARGED Performed By: #### L 400.7600, L400.0001 ####[facility] [address] [place], [address] UROBILI Normal Normal [facility] Comment on above: Order Comment: If fe male of childbearing age (8-55 years old)CLEAN CATCH Result Comment: PT D ISCHARGED Performed By: #### L 400.7600, L400.0001 ####[facility] [address] [place], [address] WBC Normal 0-5 [facility] Comment on above: Order Comment: If fe male of childbearing age (8-55 years old)CLEAN CATCH Result Comment: PT D ISCHARGED Performed By: #### L 400.7600, L400.0001 ####[facility] [address] [place], [address] Cardiology Visit Reporton Cardiology Visit Report [facility] [address] [place], [place] [address] OFFICE VISIT Date of Service: 04/26/24 MR#: [id number] Acct: [id number] Name: DORY ANDREWS GREG Rep #: [id number] : 2000 Provider: JACEY judge Age/Sex: 23/F Location: [facility] Status: Signed HPI HPI History of Present Illness Details: This is a 23 year old lady who presents to the office today for a cardiovascular follow up. She is 5 months . She was previously seen for recurrent syncope. She says that she has had numerous episodes of these syncopal episodes sometimes feeling warm and having sweaty hands and then having palpitations and lightheadedness. She has also had periods when she has been drinking and then afterwards passed out. She had also tried recreational drug use at some point. As part of her work-up she underwent a Holter monitor which demonstrated an average heart rate of 84 bpm with a minimum of 57 bpm maximal 137 bpm all of which were sinus rhythm. She has had multiple ER visits. Her Echocardiogram from 08/27/2021 demonstrated a normal ejection fraction and structurally normal valves. Her tilt table was negative. From a cardiac standpoint, the patient is doing well. She does have occasional palpitations, and chest pressure. She states this occurs with exertion and at rest. She denies any palpitations, or chest pain. She does acknowledge occasional SOB at rest, and orthopnea. She denies PND. She does not have bleeding issues; no blood in urine, stool or nosebleeds. She does acknowledge slight fatigue. She denies myalgias, or claudication. She denies edema, or sudden weight gain. She does acknowledge dizziness/lightheadedness with positional changes. She states that she has been drinking water-and liquid IV. She denies syncopal or near syncopal episodes, and headaches. Intake Vital Signs 12/03/23 13:00 04/25/24 14:00 04/26/24 14:38 Height 5 ft 2 in 5 ft 2 in 5 ft 2 in Weight: 133 lb BMI 24.3 BP 110/71 Blood Pressure Location Lt brachial Position Sitting Respiration 18 Pulse 79 Pulse Source Monitor Pulse Oximetry (%) 96 Intake Visit Reasons: 6 M FU Energy Consultant Required: No Is patient in pain?: No Allergies No Known Allergies Allergy (Verified 04/26/24 16:57) Medications ???Medication ???Instructions ???Recorded ???Confirmed ???Type metformin 500 mg tablet 500 mg PO BID 04/26/24 04/26/24 History PFSH Medical History (Updated 04/26/24 @ 17:00 by Aarti Dudley NP, CATHODE BUILDER-C) Chronic gastritis Former smoker depression History of anorexia nervosa Vitamin B12 deficiency Abdominal bloating Constipation History of marijuana use Generalized anxiety disorder Bipolar 1 disorder, depressed, moderate PTSD (post-traumatic stress disorder) Tobacco abuse Osteopenia GERD (gastroesophageal reflux disease) Asthma Migraines ( 12/08/23) Alcohol withdrawal Desire for detoxification History of cocaine use Alcohol use disorder Surgical History History of surgery Family History Other Alcoholism Anxiety Arthritis Asthma COPD (chronic obstructive pulmonary disease) Depression High cholesterol Schizophrenia Social History Smoking Status: Current every day smoker tobacco type: cigarettes and e-cigarettes alcohol intake: current alcohol intake frequency: a few times a month details: to sober substance use type: does not use ROS Const Const: Positive for fatigue; Negative for weakness, fever(s), headache(s), chills, frequent falls, weight gain or weight loss Eyes Eyes: Negative for blind spots, loss of peripheral vision, transient loss of vision, blurry vision, change in vision, double vision, floaters or tunnel vision ENT ENT: Positive for dizziness; Negative for headache(s), Nosebleed/epistaxis, balance problems or neck pain Cardio Chest Pain: No Palpitations: Yes (and occasional chest pressure) Edema: None Muscle aches with walking: None Resp Respiratory: Positive for SOB at rest and SOB orthopnea SOB lying down; Negative for SOB with activity GI GI: Negative nausea, vomiting, heartburn, bloating, vomiting blood/hematemesis, bright, red blood in stools or black,tarry stools Musc Musc: Negative for muscle aches/ myalgia, muscle weakness, joint pain or balance problems Neuro Neuro: Positive for dizziness, lightheadedness and near syncope; Negative for syncope, orthostatic symptoms, frequent falls, headache(s), weakness, blurry vision or double vision Dougie Hematologic/Lymphatic: Negative for easy bleeding or easy bruising Endo Endo: Positive for fatigue Cardiolog (more content not included)... Normal [facility] MR/BMS.BPon 04-25-2024 MR/BMS.BP [address], [address] [place] [address] OFFICE VISIT Date of Service: 04/25/24 MR#: [id number] Acct: [id number] Name: DORY ANDREWS GREG Rep #: [id number] : 2000 Provider: Dr. Hakeem Izaguirre se, DO Age/Sex: 23/F Location: [facility] [place].BP Status: Signed Intake Vital Signs 02/16/24 20:38 04/25/24 13:59 04/25/24 14:00 Height 5 ft 2 in 5 ft 2 in 5 ft 2 in Weight: 142 lb 6.4 oz BMI 26.0 BP 127/80 H 98/66 Blood Pressure Location Rt brachial Position Sitting Respiration 18 Pulse 89 85 Pulse Source Monitor Temp 97.2 F L Pulse Oximetry (%) 99 BP Intake Visit Reasons: follow up Accompanied by: Self Is patient in pain?: No Allergies No Known Allergies Allergy (Verified 04/25/24 14:00) Medications ???Medication ???Instructions ???Recorded ???Confirmed ???Type omeprazole 20 mg capsule,delayed 20 mg PO DAILY #30 CAPSULES 01/21/24 04/25/24 Rx release ondansetron 4 mg disintegrating 4 mg PO Q8H PRN PRN Nausea #12 tabs 01/21/24 04/25/24 Rx tablet hydroxyzine HCl 25 mg tablet 25 mg PO BID PRN anxiety #90 tabs 04/25/24 04/25/24 Rx hyoscyamine sulfate 0.125 mg 0.125 mg sublingual Q6-8H PRN 04/25/24 04/25/24 History sublingual tablet pantoprazole 40 mg tablet,delayed 40 mg PO QDAY PRN 04/25/24 04/25/24 History release PFSH Medical History (Updated 04/25/24 @ 13:57 by Daisy Zuñiga) Chronic gastritis Former smoker depression History of anorexia nervosa Vitamin B12 deficiency Abdominal bloating Constipation History of marijuana use Generalized anxiety disorder Bipolar 1 disorder, depressed, moderate PTSD (post-traumatic stress disorder) Tobacco abuse Osteopenia GERD (gastroesophageal reflux disease) Asthma Migraines ( 12/08/23) Alcohol withdrawal Desire for detoxification History of cocaine use Alcohol use disorder Surgical History History of surgery Family History Other Alcoholism Anxiety Arthritis Asthma COPD (chronic obstructive pulmonary disease) Depression High cholesterol Schizophrenia Social History (Updated 04/25/24 @ 13:58 by Daisy Zuñiga) Smoking Status: Current every day smoker tobacco type: cigarettes and e-cigarettes alcohol intake: current alcohol intake frequency: a few times a month details: to sober substance use type: does not use HPI History of Present Illness History provided by: patient HPI: Dory Andrews is a 23 year old female who presents today for follow up evaluation. Patient reports that she has lost 50 lbs since December. Did give in November, but continues to lose weight. Continues to have nausea. Did have endoscopy and colonscopy and was told that it was largely normal. Reports to feeling annoyed she can't find out why she is losing weight. Denies attempting to intentionally lose weight. Reports that her mood is pretty alright. Finds that things have gotten overall much better in regards to her son sleeping better and not having difficulty with ex as she was before. He is helping support her son, but does not have anything legal in place. Still living with grandma. Was encouraged to follow with digital manager by her GI doc. Plans to see in June. Did get started with [facility], and will plan to join post group virtually. Did have a HIDA scan as well. Stopped taking aripiprazole and lexapro several months ago. Denies any significant side effect but states that she just stopped. Was noticing some benefit but didn't feel was enough to justify continuing to take. Denies SI/HI or AVH. Did take zurzavue for two weeks , she is unsure of the benefit. Review of Systems Constitutional Reports: fatigue; Denies: fever(s), chills or change in weight Eyes Denies: change in vision or blurry vision Ears, Nose, Mouth, Throat Denies: throat pain, neck pain or change in hearing Cardiovascular Denies: chest pain, palpitations or dyspnea Respiratory Denies: dyspnea, cough or wheezing Gastrointestinal Reports: abdominal pain and diarrhea; Denies: constipation Genitourinary Denies: dysuria or urinary frequency Musculoskeletal Denies: back pain, neck pain or muscle weakness Integumentary/Breast Denies: rash or new lesions Neurological Denies: headache(s), dizziness or confusion Endocrine Reports: fatigue; Denies: excessive sweating Hematologic/Lymphatic Denies: easy bruising or easy bleeding Allergic/Immunologic Denies: wheezing Exam Mental Status Exam - Psych Appearance casually dressed Attitude guarded Activity/Motor Behavior MSE activity/motor behavior finding no adventitious movements and staring Speech regular rate, regular prosody (more content not included)... Normal [facility] [id number] 04-14-[id number] [facility] EGD Study observation Narrat iveon 04-14-2024 [facility] Gastrointestinal Endoscopy Patient Name: Dory Andrews Procedure Date: 04/14/2024 10:00 AM Date of : 2000 Admit Type: Outpatient Age: 23 Gender: Female Note Status: Finalized Procedure: Upper GI endoscopy Indications: Abdominal pain in the right upper quadrant, Gastro-esophageal reflux disease, Weight loss Providers: Wu Hogan MD Patient Profile: This is a 23 year old female. Refer to note in patient chart for documentation of history and physical. Referring Physician: Ofelia Merritt (pa) (Referring MD) Medicines: Fentanyl 100 micrograms IV, Midazolam 7 mg IV, Diphenhydramine 50 mg IV, Benzocaine spray Complications: No immediate complications. Estimated blood loss: Minimal. Requesting Provider: Procedure: Pre-Anesthesia Assessment: - Prior to the procedure, a History and Physical was performed, and patient medications and allergies were reviewed. The patient's tolerance of previous anesthesia was also reviewed. The risks and benefits of the procedure and the sedation options and risks were discussed with the patient. All questions were answered, and informed consent was obtained. Prior Anticoagulants: The patient has taken no anticoagulant or antiplatelet agents. ASA Grade Assessment: II - A patient with mild systemic disease. After reviewing the risks and benefits, the patient was deemed in satisfactory condition to undergo the procedure. After obtaining informed consent, the endoscope was passed under direct vision. Throughout the procedure, the patient's blood pressure, pulse, and oxygen saturations were monitored continuously. The Endoscope was introduced through the mouth, and advanced to the second part of duodenum. The upper GI endoscopy was accomplished without difficulty. The patient tolerated the procedure well. Moderate Sedation: The administration of moderate sedation was initiated at 10:08 AM. Moderate (conscious) sedation was personally administered by the endoscopist. The following parameters were monitored: oxygen saturation, heart rate, blood pressure, respiratory rate, EKG, adequacy of pulmonary ventilation, and response to care. Total physician intraservice time was 26 minutes. Findings: The Z-line was regular and was found 37 cm from the incisors. Biopsies were taken with a cold forceps for histology. The entire examined stomach was normal. Biopsies were taken with a cold forceps for Helicobacter pylori testing. The examined duodenum was normal. Biopsies for histology were taken with a cold forceps for evaluation of celiac disease. Impression: - Z-line regular, 37 cm from the incisors. Biopsied. - Normal stomach. Biopsied. - Normal examined duodenum. Biopsied. Recommendation: - Patient has a contact number available for emergencies. The signs and symptoms of potential delayed complications were discussed with the patient. Return to normal activities tomorrow. Written discharge instructions were provided to the patient. - Resume previous diet. - Continue present medications. - Await pathology results. - Repeat upper endoscopy PRN for surveillance. - Return to referring physician at appointment to be scheduled. Procedure Code(s): --- Professional --- 08565, Esophagogastroduodenoscopy , flexible, transoral; with biopsy, single or multiple G0500, Moderate sedation services provided by the same physician or other qualified health hearing care practitioner performing a gastrointestinal endoscopic service that sedation supports, requiring the presence of an independent trained observer to assist in the monitoring of the patient's level of consciousness and physiological status; initial 15 minutes o (more content not included)... PROVATION [facility] Flexible sigmoidoscopy study on 04-14-2024 [facility] Gastrointestinal Endoscopy Patient Name: Dory Andrews Procedure Date: 04/14/2024 10:01 AM Date of : 2000 Admit Type: Outpatient Age: 23 Gender: Female Note Status: Finalized Procedure: Colonoscopy Indications: Clinically significant diarrhea of unexplained origin, Abdominal pain in the right upper quadrant Providers: Wu Hogan MD Patient Profile: This is a 23 year old female. Refer to note in patient chart for documentation of history and physical. Last Colonoscopy: none. The patient's first colonoscopy is today. Referring Physician: Ofelia Merritt (pa) (Referring MD) Medicines: Fentanyl 100 micrograms IV, Midazolam 7 mg IV, Diphenhydramine 50 mg IV Complications: No immediate complications. Estimated blood loss: Minimal. Requesting Provider: Procedure: Pre-Anesthesia Assessment: - Prior to the procedure, a History and Physical was performed, and patient medications and allergies were reviewed. The patient's tolerance of previous anesthesia was also reviewed. The risks and benefits of the procedure and the sedation options and risks were discussed with the patient. All questions were answered, and informed consent was obtained. Prior Anticoagulants: The patient has taken no anticoagulant or antiplatelet agents. ASA Grade Assessment: II - A patient with mild systemic disease. After reviewing the risks and benefits, the patient was deemed in satisfactory condition to undergo the procedure. After I obtained informed consent, the scope was passed under direct vision. Throughout the procedure, the patient's blood pressure, pulse, and oxygen saturations were monitored continuously. The Colonoscope was introduced through the anus and advanced to 4 cm into the ileum. The colonoscopy was performed without difficulty. The patient tolerated the procedure well. The quality of the bowel preparation was good. The terminal ileum, ileocecal valve, appendiceal orifice, and rectum were photographed. Moderate Sedation: The administration of moderate sedation was initiated at 10:08 AM. Moderate (conscious) sedation was personally administered by the endoscopist. The following parameters were monitored: oxygen saturation, heart rate, blood pressure, respiratory rate, EKG, adequacy of pulmonary ventilation, and response to care. Total physician intraservice time was 26 minutes. Findings: The perianal and digital rectal examinations were normal. The terminal ileum appeared normal. Biopsies were taken with a cold forceps for histology. The colon (entire examined portion) appeared normal. Biopsies for histology were taken with a cold forceps from the entire colon for evaluation of microscopic colitis. The exam was otherwise without abnormality on direct and retroflexion views. Impression: - The examined portion of the ileum was normal. Biopsied. - The entire examined colon is normal. Biopsied. - The examination was otherwise normal on direct and retroflexion views. Recommendation: - Patient has a contact number available for emergencies. The signs and symptoms of potential delayed complications were discussed with the patient. Return to normal activities tomorrow. Written discharge instructions were provided to the patient. - Resume previous diet. - Continue present medications. - Await pathology results. - Repeat colonoscopy in 10 years for screening purposes. - Return to referring physician at appointment to be scheduled. Procedure Code(s): --- Professional --- 02233, Colonoscopy, flexible; with biopsy, single or multiple G0500, Moderate sedation services provided by the same physician or (more content not included)... PROVATION [facility] HISTORY PHYSICALon HISTORY PHYSICAL Normal [facility] NURSING PROGon 04-14-[address] [facility] No Panel Informationon 04-14 Radiology Study observation (narrative) [facility] SURGICAL PATHOLOGYon 024 ADDENDUM 1: Normal [facility] Comment on above: Order Comment: Speci men Type: TISSUE SPECIMENOrdering Facility: [facility] Address: [address] [id number] Result Comment: Rajesh serrano the background of chronic gastritis a Helicobacter pylori immunostain was performed on block B and is negative for Helicobacter pylori organisms.Laboratory Developed Test (LDT) Disclaimer:Performance characteristics of immunohistochemical, immunofluorescent and chromogenic in-situ hybridization tests have been determined by the performing laboratory within [facility]???s Ricardo Butt Pathology and Laboratory Medicine Department ([facility], [facility], [facility], [facility], [facility], or [facility]) in a manner consistent with CLIA requirements. One or more of these tests have not been cleared or approved by the FDA. [facility] is regulated under CLIA as qualified to perform high-complexity testing. These tests are used for clinical purposes. They should not be regarded as investigational or for research. Positive and negative controls stain appropriately.KYLE/uriel 04/19/2024ddendum electronically signed by Wade Child MD on 04/19/2024 at 1:23 PM Performed By: #### S ####[facility] LABCLIA [id number] [place] [address] [place] CASE REPORT Normal [facility] Comment on above: Order Comment: Speci men Type: TISSUE SPECIMENOrdering Facility: [facility] Address: [address] [place] [address] Result Comment: Surg [facility] Pathology Report Case: [id number] Provider: Wu Hogan MD Collected: 04/14/2024 10:15 AMOrdering Location: Ambulatory Surgery Received: 04/14/2024 01:17 PMPathologist: Wade Child MDSpecimens: A) - Small Bowel, Duodenum, Biopsy B) - Stomach, Antrum, Biopsy, Antral for H/H C) - Esophagus, Distal, Biopsy D) - Esophagus, Mid, Biopsy E) - Small Bowel, Terminal Ileum, Biopsy, TI bx F) - Colon, Biopsy, random bxs Performed By: #### S ####[facility] LABCLIA [id number] [address] STATES OF [facility] FINAL DIAGNOSIS Normal [facility] Comment on above: Order Comment: Speci men Type: TISSUE SPECIMENOrdering Facility: [facility] Address: [address] [place] [address] Result Comment: A. D uodenum, biopsy:- No significant pathologic change.B. Gastric antrum, biopsy:- Chronic inactive gastritis.- Immunohistochemical stain for Helicobacter pylori pending.C., D. - Distal and mid esophagus, biopsies:- Fragments of unremarkable squamous mucosa.- No evidence of eosinophilia.E. Terminal ileum, biopsy:- No significant pathologic change.F. Colon, random biopsy:- No significant pathologic change.- No evidence of lymphocytic or collagenous colitis.JRG/[id number] signed by Wade Child MD on 04/18/2024 at 8:33 AM Performed By: #### S ####[facility] LABCLIA [id number] [place] [address] [place] FINAL PERFORMING LAB Normal [facility] Comment on above: Order Comment: Speci men Type: TISSUE SPECIMENOrdering Facility: [facility] Address: [address] [place] [address] Result Comment: Diag nostic interpretation performed at [facility], [address] [place] [address] CLIA# [id number] Director: Sal Kulkarni M.D. Performed By: #### S ####[facility] LABCLIA [id number] [address] [place] GROSS DESCRIPTION Normal [facility] Comment on above: Order Comment: Speci men Type: TISSUE SPECIMENOrdering Facility: [facility] Address: [address] [place] [address] Result Comment: A. S mall Bowel, Duodenum, BiopsyReceived in formalin is one piece of [place], soft tissue measuring 0.4 x 0.3 x 0.2 cm. Totally submitted in one cassette.B. Stomach, Antrum, BiopsyReceived in formalin is one piece of [place], soft tissue measuring 0.8 x 0.3 x 0.1 cm. Totally submitted in one cassette.C. Esophagus, Distal, BiopsyReceived in formalin are two pieces of [place], soft tissue aggregating to 0.9 x 0.2 x 0.2 cm. Totally submitted in one cassette.D. Esophagus, Mid, BiopsyReceived in formalin is one piece of [place], soft tissue measuring 0.5 x 0.3 x 0.1 cm. Totally submitted in one cassette.E. Small Bowel, Terminal Ileum, BiopsyReceived in formalin are multiple pieces of [place], soft tissue aggregating to 1.0 x 0.3 x 0.2 cm. Totally submitted in one cassette.F. Colon, BiopsyReceived in formalin are multiple pieces of [place], soft tissue aggregating to 1.7 x 0.7 x 0.2 cm. Totally submitted in three cassettes.SS April 14, 2024 11:51 PMGross examination performed at [facility], [address] [place] [address] Performed By: #### S ####[facility] LABCLIA [id number] [place] [address] [place] Upper GI endoscopyon 024 Upper GI endoscopy Normal [facility] CNPNon 04-11-[address] [facility] T4 Free SerPl-mCncon 024 Free T4 [Mass/Vol] 1.6 ng/dL Normal 0.9-1.7 [facility] Comment on above: Order Comment: Speci men Type: BLOOD SPECIMENOrdering Facility: [facility] Address: [address] [place] [address] Performed By: #### 3 024-7, 3016-3 ####[facility] LABCLIA [id number] [address] [place] THYROID PEROXIDASE ANTIBODYo n 04-07-2024 TPO Ab Qn [IU]/mL Normal <5.6 [facility] Comment on above: Order Comment: Speci men Type: BLOOD SPECIMENOrdering Facility: [facility] Address: [address] [place] [address] Result Comment: Thyr oid Peroxidase Antibody test is used as an aid in diagnosis of autoimmune thyroid disease. Clinical correlation is required. Performed By: #### M ICRO ####[facility] LABCLIA [id number] [place] [address] [place] TSH SerPl-aCncon 04-07-2024 TSH Qn 0.712 m[IU]/L Normal 0.270-4.200 [facility] Comment on above: Order Comment: Speci men Type: BLOOD SPECIMENOrdering Facility: [facility] Address: [address] [place] [address] Result Comment: If t he patient is , TSH reference range varies by gestational period:First Trimester (weeks 9-12): 0.180-2.990 mIU/LSecond Trimester: 0.110-3.980 mIU/LThird Trimester: 0.480-4.710 mIU/LDtony Enrique et al. A Practical Approach for the Verifications and Determination of Site- and Trimester-Specific Reference Intervals for Thyroid Function tests in . Thyroid, 2019:29:3:412-420. Joe E, et al. 2017 Guidelines of the [place] [employer] for the Diagnosis and Management of Thyroid Disease during and the . Thyroid, 2017:27:3:315-389. Performed By: #### 3 024-7, 3016-3 ####[facility] LABCLIA [id number] [place] [address] [place] US Pelvison 04-07-2024 Indication post coital bleeding, intermenstrual bleeding Impression The uterus is anteverted and measures 65 mm x 28 mm x 41 mm. The endometrial thickness is 1.8 mm. The right ovary measures 35 mm x 18 mm x 18 mm. The left ovary measures 35 mm x 23 mm x 17 mm. There is no free fluid visualized. Recommendations Normal pelvic ultrasound. Menstrual History LMP on 03/20/2024. Contraception: contraceptive implant Method Transabdominal, transvaginal, 3D ultrasound examination, Color Doppler examination. View: Adequate visualization Uterus Uterus: Visualized Uterus position: anteverted Description of uterine malformations: none Myometrium: normal Endometrium: normal Cervix details: normal Uterus length 65 mm Uterus width 41 mm Uterus height 28 mm Uterus Vol 38.9 cm Endometrial thickness, total 1.8 mm Fibroids: No fibroids identified Polyps: No polyps identified Right Ovary Rt ovary: Visualized Rt ovary morphology: premenopausal normal follicular Rt ovary D1 35 mm Rt ovary D2 18 mm Rt ovary D3 18 mm Rt ovary Vol 6.0 cm Rt ovarian cyst(s): No cysts identified Left Ovary Lt ovary: Visualized Lt ovary morphology: premenopausal normal follicular Lt ovary D1 35 mm Lt ovary D2 23 mm Lt ovary D3 17 mm Lt ovary Vol 7.4 cm Lt ovarian cyst(s): No cysts identified Cul de Sac Visualized. no free fluid visualized Performed By: Janee Forman RDMS Read By: Tammy Hernadez M.D. MATERNAL MEDICINE [facility] Radiology Study observation (narrative) [facility] CNOVon 04-04-[address] [facility] XR CHEST 2V FRONTAL/LATon XR CHEST 2V FRONTAL/LAT Normal [facility] XR Chest PA and Lateralon IMPRESSION: No acute radiographic abnormality. Clinical Law Professor: PSCB Transcribe Date/Time: Apr 04 2024 8:38P Dictated by : ABISAI MILLER MD This examination was interpreted and the report reviewed and electronically signed by: ABISAI MILLER MD on Apr 04 2024 8:38PM [facility] DIVISION OF RADIOLOGY * * *Final Report* * * DATE OF EXAM: Apr 04 2024 6:51PM WOX [id number] - XR CHEST 2V FRONTAL/LAT / PROCEDURE REASON: Acute cough * * * * Physician Interpretation * * * * EXAMINATION: CHEST RADIOGRAPH (2 VIEW FRONTAL & LATERAL) CLINICAL HISTORY: Acute cough MQ: XC2_6 EXAM DATE/TIME: 04/04/2024 6:51 PM COMPARISON: Chest x-ray of 09/26/2018 RESULT: Lines, tubes, and devices: None. Lungs and pleura: No consolidation. No lung mass. No pleural effusion. No pneumothorax. Cardiomediastinal silhouette: Normal cardiomediastinal silhouette. Bones and soft tissues: Unremarkable. DIVISION OF RADIOLOGY Provider, [facility] - 04/04/2024 * * *Final Report* * * DATE OF EXAM: Apr 04 2024 6:51PM WOX [id number] - XR CHEST 2V FRONTAL/LAT / PROCEDURE REASON: Acute cough * * * * Physician Interpretation * * * * EXAMINATION: CHEST RADIOGRAPH (2 VIEW FRONTAL & LATERAL) CLINICAL HISTORY: Acute cough MQ: XC2_6 EXAM DATE/TIME: 04/04/2024 6:51 PM COMPARISON: Chest x-ray of 09/26/2018 RESULT: Lines, tubes, and devices: None. Lungs and pleura: No consolidation. No lung mass. No pleural effusion. No pneumothorax. Cardiomediastinal silhouette: Normal cardiomediastinal silhouette. Bones and soft tissues: Unremarkable. IMPRESSION IMPRESSION: No acute radiographic abnormality. Clinical Law Professor: JOSE Transcribe Date/Time: Apr 04 2024 8:38P Dictated by : ABISAI MILLER MD This examination was interpreted and the report reviewed and electronically signed by: ABISAI MILLER MD on Apr 04 2024 8:38PM EST [facility] Radiology Study observation (narrative) [facility] XR Chest PA and LateralOrder ed By: [facility] Provider on 04-04-2024 [facility] BACTERIAL VAGINOSIS NAATon 0 03-31-2024 Lactobacillus crispatus+gasseri+j ensenii + Gardnerella vaginalis + Atopobium vaginae rRNA YAYO+probe Ql (Vag fld) Negative Normal Negative for bacterial vaginosis [facility] Comment on above: Order Comment: Speci men Type: SWABOrdering Facility: [facility] Address: [address] [place] [address] Performed By: #### 3 6902-5, BVAMP ####[facility] LABCLIA [id number] [place] [address] [place] C. trachomatis+N. gonorrhoea e DNA YAYO+probe Ql (Unsp spec)on 03-31-2024 C. trachomatis rRNA YAYO+probe Ql (Unsp spec) Negative Normal Negative for Chlamydia trachomatis by amplificaton [facility] Comment on above: Order Comment: Speci men Type: SWABOrdering Facility: [facility] Address: [address] [place] [address] Performed By: #### 3 6902-5, BVAMP ####[facility] LABCLIA [id number] [place] [address] [place] N. gonorrhoeae rRNA YAYO+probe Ql (Unsp spec) Negative Normal Negative for Neisseria gonorrhoeae by amplification [facility] Comment on above: Order Comment: Speci men Type: SWABOrdering Facility: [facility] Address: [address] [place] [address] Performed By: #### 3 6902-5, BVAMP ####[facility] LABCLIA [id number] [place] [address] [place] OF [place] LUANA/TRICHOMONAS NAATon 0 03-31-2024 C. glabrata RNA YAYO+probe Ql (Vag fld) Negative Normal Negative for Luana glabrata [facility] Comment on above: Order Comment: Speci men Type: SWABOrdering Facility: [facility] Address: [address] [place] [address] Performed By: #### C VTV ####[facility] LABCLIA [id number] [place] [address] [place] Luana sp DNA YAYO+probe Ql (Vag fld) Negative Normal Negative for Luana species [facility] Comment on above: Order Comment: Speci men Type: SWABOrdering Facility: [facility] Address: [address] [place] [address] Performed By: #### C VTV ####[facility] LABCLIA [id number] [place] [address] [place] T. vaginalis DNA YAYO+probe Ql (Unsp spec) Negative Normal Negative for Trichomonas vaginalis by amplification [facility] Comment on above: Order Comment: Speci men Type: SWABOrdering Facility: [facility] Address: [address] [place] [address] Performed By: #### C VTV ####[facility] LABIA [id number] [place] [address] [place] CNOVon 03-31-[address] [facility] HIGH RISK HUMAN PAPILLOMA ASHOK (HPV), PCR FOR DETECTION AND GENOTYPINGon 03-31-2024 HPV 16 Ag Ql (Unsp spec) Not detected Normal Not detected [facility] Comment on above: Order Comment: Speci men Type: FLUID SPECIMENOrdering Facility: [facility] Address: [address] [place] [address] Performed By: #### L [id number] ####[facility]ORY[facility] [id number] [address] STATES OF [facility] LABCLIA [id number] [place] [address] [place]#### HPVHRT ####[facility] LABCLIA [id number] [place] [address] [place] HPV 18 Ag Ql (Unsp spec) Not detected Normal Not detected [facility] Comment on above: Order Comment: Speci men Type: FLUID SPECIMENOrdering Facility: [facility] Address: [address] [place] [address] Performed By: #### L [id number] ####[facility]ORYCLIA [id number] [place] [address] [place] [facility] LABCLIA [id number] [place] [address] [place]#### HPVHRT ####[facility] LABIA [id number] [place] [address] [place] HPV 31+33+35+39+45+51+5 2+56+58+59+66+68 DNA YAYO+probe Ql (Cvx) Not detected Normal Not detected [facility] Comment on above: Order Comment: Speci men Type: FLUID SPECIMENOrdering Facility: [facility] Address: [address] [place] [address] Result Comment: High Risk HPV Other Type includes HPV types 31, 33, 35, 39, 45, 51, 52, 56, 58, 59, 66 and 68. Performed By: #### L [id number] ####[facility]ORYCLIA [id number] [place] [address] [place] [facility] [id number] [place] [address] [place]#### HPVHRT ####[facility] LABCLIA [id number] [place] [address] [place] PAP TESTon 03-31-2024 ADEQUACY Satisfactory for interpretation. Normal [facility] Comment on above: Order Comment: Speci men Type: FLUID SPECIMENOrdering Facility: [facility] Address: [address] [place] [address] Performed By: #### L [id number] ####[facility]ORYCLIA [id number] [place] [address] [place] [facility] LABCLIA [id number] [place] [address] [place]#### HPVHRT ####[facility] LABCLIA [id number] [place] [address] [place] CASE REPORT Normal [facility] Comment on above: Order Comment: Speci men Type: FLUID SPECIMENOrdering Facility: [facility] Address: [address] [place] [address] Result Comment: Gyne cologic Cytology Report Case: [id number] Provider: Lesli Solano APRN.OIL WELL CABLE TOOL OPERATOR Collected: 03/31/2024 04:26 PMOrdering Location: OB/Gynecology Received: 03/31/2024 04:52 PMFirst Screen: Dior Davidson, CT, ASCPPathologist: Diana Hoffmann MDSpecimen: Pap Test, ThinPrep, Cervix Performed By: #### L [id number] ####[facility]ORYCLIA [id number] [place] [address] [place] [facility] [id number] [place] [address] [place]#### HPVHRT ####[facility] LABCLIA [id number] [place] [address] [place] CLINICAL HISTORY, CYTOLOGY, TOOL GRINDER OPERATOR EXTERNAL Abnormal Bleeding (Describe) Normal [facility] Comment on above: Order Comment: Speci men Type: FLUID SPECIMENOrdering Facility: [facility] Address: [address] [place] [address] Result Comment: Post coital Performed By: #### L [id number] ####[facility]ORYCLIA [id number] [place] [address] [place] [facility] [id number] [place] [address] [place]#### HPVHRT ####[facility] LABCLIA [id number] [place] [address] [place] FINAL PERFORMING LAB Normal [facility] Comment on above: Order Comment: Speci men Type: FLUID SPECIMENOrdering Facility: [facility] Address: [address] [place] [address] Result Comment: Tech nical component, pharmacy salesperson screening performed at [facility], [address], [place] [id number] CLIA# [id number] interpretation performed at [facility], [address] [place] [id number] CLIA# [id number] Director: Naty Conteh M.D. Performed By: #### L [id number] ####[facility]ATORYCLIA [id number] [place] [id number] [place] [facility] [id number] [place] [address] [place]#### HPVHRT ####[facility] LABCLIA [id number] [place] [address] [place] HPV REFLEX HPV if Atypical Normal [facility] Comment on above: Order Comment: Speci men Type: FLUID SPECIMENOrdering Facility: [facility] Address: [address] [place] [address] Performed By: #### L [id number] ####[facility]ATORYCLIA [id number] [place] [address] [place] [facility] [id number] [place] [address] [place]#### HPVHRT ####[facility] LABCLIA [id number] [place] [address] [place] INTERPRETATION, CYTOLOGY, TOOL GRINDER OPERATOR EXTERNAL Abnormal [facility] Comment on above: Order Comment: Speci men Type: FLUID SPECIMENOrdering Facility: [facility] Address: [address] [place] [address] Result Comment: Atyp ical squamous cells of undetermined significance (ASC-US). Performed By: #### L [id number] ####[facility]ORATORYCLIA [id number] [place] [address] [place] [facility] LABCLIA [id number] [place] [address] [place]#### HPVHRT ####[facility] LABCLIA [id number] [place] [address] [place] LMP 03/08/[address] [facility] Comment on above: Order Comment: Speci men Type: FLUID SPECIMENOrdering Facility: [facility] Address: [address] [place] [address] Performed By: #### L [id number] ####[facility]ORYCLIA [id number] [place] [address] [place] [facility] [id number] [place] [address] [place]#### HPVHRT ####[facility] LABCLIA [id number] [place] [address] [place] PAP DISCLAIMER COMMENT The Pap Smear is a screening test for cervical cancer. False negative results occur with all screening tests, emphasizing the need for rescreening at recommended intervals, and clinical correlation. Normal [facility] Comment on above: Order Comment: Speci men Type: FLUID SPECIMENOrdering Facility: [facility] Address: [address] [place] [address] Performed By: #### L [id number] ####[facility]ATORYCLIA [id number] [place] [address] [place] [facility] LABCLIA [id number] [place] [address] [place]#### HPVHRT ####[facility] LABCLIA [id number] [place] [address] [place] PAP GENERAL CATEGORIZATION Epithelial Cell Abnormality Normal [facility] Comment on above: Order Comment: Speci men Type: FLUID SPECIMENOrdering Facility: [facility] Address: [address] [place] [address] Performed By: #### L [id number] ####[facility]ATORYCLIA [id number] [place] [address] [place] [facility] LABCLIA [id number] [place] [address] [place]#### HPVHRT ####[facility] LABCLIA [id number] [place] [address] [place] PAP SUPERVISOR DECORATING COMMENT Normal [facility] Comment on above: Order Comment: Speci men Type: FLUID SPECIMENOrdering Facility: [facility] Address: [address] [place], [place] [address] Performed By: #### L [id number] ####[facility]ATORYCLIA [id number] [place] [id number] [place] [facility] LABCL[facility] [id number] [place] [address] [place]#### HPVHRT ####[facility] LABCLIA [id number] [place] [address] [place] CNPNon 03-29-[address] [facility] C diff Tox gens Stl Ql YAYO+p robeon 03-18-2024 C. difficile toxin genes YAYO+probe Ql (Stl) Negative Normal Negative for C. difficile toxin by PCR [facility] Comment on above: Order Comment: Speci men Type: STOOL SPECIMENOrdering Facility: [facility] Address: [address] [place] [address] Performed By: #### 5 4067-4, PANCEF, 70241-9, 13987-0 ####[facility] LABCLIA [id number] [place] [address] [place] Calprotectin (Stl) [Mass/Mas s]on 03-18-2024 CALPROTECTIN, FECAL INTERP Normal Normal Normal [facility] Comment on above: Order Comment: Speci men Type: STOOL SPECIMENOrdering Facility: [facility] Address: [address] [place] [address] Result Comment: Inte rpretation:<50.0 ug/g: Ohfegd33.0 ug/g - 120.0 ug/g: Borderline elevated. Re-evaluation in 4-6 weeks is recommended if clinically indicated.>120.0 ug/g: Elevated Performed By: #### 5 4067-4, PANCEF, 82459-0, 92282-6 ####[facility] LABCLIA [id number] [place] [address] [place] CALPROTECTIN, FECAL QUANTITATIVE 8.22 ug/g Normal <50 [facility] Comment on above: Order Comment: Speci men Type: STOOL SPECIMENOrdering Facility: [facility] Address: [address] [place] [address] Performed By: #### 5 4067-4, PANCEF, 39313-8, 65569-2 ####[facility] LABCLIA [id number] [place] [address] [place] Gastrointestinal pathogens p radha YAYO+probe (Stl)on 03-18-2024 ADENOVIRUS F 40/41 DNA Not detected Normal Not Detected [facility] Comment on above: Order Comment: Speci men Type: STOOL SPECIMENOrdering Facility: [facility] Address: [address] [place] [address] Performed By: #### 7 9381-0 ####[facility] LABCLIA [id number] [place] [address] [place] ASTROVIRUS RNA Not detected Normal Not Detected [facility] Comment on above: Order Comment: Speci men Type: STOOL SPECIMENOrdering Facility: [facility] Address: [address] [place] [address] Performed By: #### 7 9381-0 ####[facility] LABCLIA [id number] [place] [address] [place] C. cayetanensis DNA YAYO+probe Ql (Unsp spec) Not detected Normal Not Detected [facility] Comment on above: Order Comment: Speci men Type: STOOL SPECIMENOrdering Facility: [facility] Address: [address] [place] [address] Performed By: #### 7 9381-0 ####[facility] LABCLIA [id number] [place] [address] [place] Campylobacter sp DNA.diarrheagenic YAYO+probe Ql (Stl) Not detected Normal Not Detected [facility] Comment on above: Order Comment: Speci men Type: STOOL SPECIMENOrdering Facility: [facility] Address: [address] [place] [address] Performed By: #### 7 9381-0 ####[facility] LABCLIA [id number] [place] [address] [place] Cryptosporidium sp DNA YAYO+probe Ql (Unsp spec) Not detected Normal Not Detected [facility] Comment on above: Order Comment: Speci men Type: STOOL SPECIMENOrdering Facility: [facility] Address: [address] [place] [address] Performed By: #### 7 9381-0 ####[facility] LABCLIA [id number] [place] [address] [place] E. coli O157:H7 DNA YAYO+probe Ql (Unsp spec) Not applicable Normal Not detected [facility] Comment on above: Order Comment: Speci men Type: STOOL SPECIMENOrdering Facility: [facility] Address: [address] [place] [address] Performed By: #### 7 9381-0 ####[facility] LABCLIA [id number] [place] [address] [place] E. coli stx1+stx2 genes YAYO+probe Ql (Stl) Not detected Normal Not Detected [facility] Comment on above: Order Comment: Speci men Type: STOOL SPECIMENOrdering Facility: [facility] Address: [address] [place] [address] Performed By: #### 7 9381-0 ####[facility] LABCLIA [id number] [place] [address] [place] E. histolytica DNA YAYO+probe Ql (Unsp spec) Not detected Normal Not Detected [facility] Comment on above: Order Comment: Speci men Type: STOOL SPECIMENOrdering Facility: [facility] Address: [address] [place] [address] Performed By: #### 7 9381-0 ####[facility] LABCLIA [id number] [place] [address] [place] ENTEROAGGREGATIVE E. COLI (EAEC) DNA Not detected Normal Not Detected [facility] Comment on above: Order Comment: Speci men Type: STOOL SPECIMENOrdering Facility: [facility] Address: [address] [place] [address] Performed By: #### 7 9381-0 ####[facility] LABCLIA [id number] [place] [address] [place] ENTEROPATHOGENIC E. COLI (EPEC) DNA Not detected Normal Not detected [facility] Comment on above: Order Comment: Speci men Type: STOOL SPECIMENOrdering Facility: [facility] Address: [address] [place] [address] Performed By: #### 7 9381-0 ####[facility] LABCLIA [id number] [place] [address] [place] ENTEROTOXIGENIC E. COLI (ETEC) DNA Not detected Normal Not Detected [facility] Comment on above: Order Comment: Speci men Type: STOOL SPECIMENOrdering Facility: [facility] Address: [address] [place] [address] Performed By: #### 7 9381-0 ####[facility] LABCLIA [id number] [place] [address] [place] G. lamblia DNA YAYO+probe Ql (Unsp spec) Not detected Normal Not Detected [facility] Comment on above: Order Comment: Speci men Type: STOOL SPECIMENOrdering Facility: [facility] Address: [address] [place] [address] Performed By: #### 7 9381-0 ####[facility] LABCLIA [id number] [place] [address] [place] NOROVIRUS GI/GII RNA Not detected Normal Not Detected [facility] Comment on above: Order Comment: Speci men Type: STOOL SPECIMENOrdering Facility: [facility] Address: [address] [place] [address] Performed By: #### 7 9381-0 ####[facility] LABCLIA [id number] [place] [address] [place] PLESIOMONAS SHIGELLOIDES DNA Not detected Normal Not Detected [facility] Comment on above: Order Comment: Speci men Type: STOOL SPECIMENOrdering Facility: [facility] Address: [address] [place] [address] Performed By: #### 7 9381-0 ####[facility] LABCLIA [id number] [place] [address] [place] ROTAVIRUS A RNA Not detected Normal Not Detected [facility] Comment on above: Order Comment: Speci men Type: STOOL SPECIMENOrdering Facility: [facility] Address: [address] [place] [address] Performed By: #### 7 9381-0 ####[facility] LABCLIA [id number] [place] [address] [place] Salmonella sp DNA YAYO+probe Ql (Unsp spec) Not detected Normal Not Detected [facility] Comment on above: Order Comment: Speci men Type: STOOL SPECIMENOrdering Facility: [facility] Address: [address] [place] [address] Performed By: #### 7 9381-0 ####[facility] LABCLIA [id number] [place] [address] [place] SAPOVIRUS (GENOGROUPS I, II, IV, V) RNA Not detected Normal Not Detected [facility] Comment on above: Order Comment: Speci men Type: STOOL SPECIMENOrdering Facility: [facility] Address: [address] [place] [address] Performed By: #### 7 9381-0 ####[facility] LABCLIA [id number] [place] [address] [place] Shigella species+EIEC invasion plasmid antigen H ipaH gene YAYO+probe Ql (Stl) Not detected Normal Not Detected [facility] Comment on above: Order Comment: Speci men Type: STOOL SPECIMENOrdering Facility: [facility] Address: [address] [place] [address] Performed By: #### 7 9381-0 ####[facility] LABCLIA [id number] [place] [address] [place] V. cholerae DNA YAYO+probe Ql (Unsp spec) Not detected Normal Not Detected [facility] Comment on above: Order Comment: Speci men Type: STOOL SPECIMENOrdering Facility: [facility] Address: [address] [place] [address] Performed By: #### 7 9381-0 ####[facility] LABCLIA [id number] [place] [address] [place] Vibrio sp DNA YAYO+probe Nom (Unsp spec) Not detected Normal Not Detected [facility] Comment on above: Order Comment: Speci men Type: STOOL SPECIMENOrdering Facility: [facility] Address: [address] [place] [address] Performed By: #### 7 9381-0 ####[facility] LABCLIA [id number] [place] [address] [place] Yersinia sp DNA YAYO+probe Nom (Unsp spec) Not detected Normal Not Detected [facility] Comment on above: Order Comment: Speci men Type: STOOL SPECIMENOrdering Facility: [facility] Address: [address] [place] [address] Performed By: #### 7 9381-0 ####[facility] LABCLIA [id number] [place] [address] [place] H pylori Ag Stl Ql IAon H. pylori Ag IA Ql (Stl) H.PYLORI EIA RESULT: Negative for Helicobacter pylori antigen by EIA Normal [facility] Comment on above: Performed By: #### 5 4067-4, PANCEF, 67975-2, 34669-6 ####[facility] LABCLIA [id number] [place] [address] [place] PANC ELASTASE, FECALon 03-18 ELASTASE INTERPRETATION Normal Normal Normal [facility] Comment on above: Order Comment: Speci men Type: STOOL SPECIMENOrdering Facility: [facility] Address: [address] [place] [address] Performed By: #### 5 4067-4, PANCEF, 40211-2, 17571-8 ####[facility] LABCLIA [id number] [place] [address] [place] ELASTASE-1 CONCENTRATION >800 Normal >=200 [facility] Comment on above: Order Comment: Speci men Type: STOOL SPECIMENOrdering Facility: [facility] Address: [address] [place] [address] Result Comment: Inte rpretation:<100 ug/g: Severe Exocrine Pancreatic Sjaojppejsdpp435-260 ug/g: Mild to Moderate Exocrine Pancreatic Insufficiency>=200 ug/g: Normal Performed By: #### 5 4067-4, PANCEF, 32714-2, 00047-3 ####[facility] LABCLIA [id number] [place] [address] [place] CNOVon 03-17-[address] [facility] CNPNon 03-15-[address] [facility] XR SKULL 2V AP/LATon 024 XR SKULL 2V AP/LAT Normal [facility] XR Skull AP and Lateralon IMPRESSION: Unremark able skull x-ray. Clinical Law Professor: PSCB Transcribe Date/Time: Mar 15 2024 1:31P Dictated by : KEITH CABALLERO MD This examination was interpreted and the report reviewed and electronically signed by: KEITH CABALLERO MD on Mar 15 2024 1:33PM [facility] DIVISION OF RADIOLOGY * * *Final Report* * * DATE OF EXAM: Mar 15 2024 1:25PM WOX 5259 - XR SKULL 2V AP/LAT / PROCEDURE REASON: Elevated alkaline phosphatase level * * * * Physician Interpretation * * * * XR SKULL 2V AP/LAT EXAM DATE/TIME: 03/15/2024 1:25 PM COMPARISON: None. CLINICAL INDICATION/HISTORY: Elevated alkaline phosphatase. TECHNIQUE: AP and lateral views of the skull are presented for interpretation. FINDINGS: No acute fractures or other bony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 [facility] Address: [address] [place] [address] Performed By: #### 5 7021-8 ####[facility] LABCLIA [id number] [place] [address] [place] Immature granulocytes (Bld) [#/Vol] 10*3/uL Normal <0.10 [facility] Comment on above: Order Comment: Speci men Type: BLOOD SPECIMENOrdering Facility: [facility] Address: [address] [place] [address] Performed By: #### 5 7021-8 ####[facility] LABCLIA [id number] [place] [address] [place] Immature granulocytes/100 WBC (Bld) 0.2 % Normal [facility] Comment on above: Order Comment: Speci men Type: BLOOD SPECIMENOrdering Facility: [facility] Address: [address] [place] [address] Performed By: #### 5 7021-8 ####[facility] LABCLIA [id number] [place] [address] [place] Lymphocytes (Bld) [#/Vol] 2.48 10*3/uL Normal 1.00-4.00 [facility] Comment on above: Order Comment: Speci men Type: BLOOD SPECIMENOrdering Facility: [facility] Address: [address] [place] [address] Performed By: #### 5 7021-8 ####[facility] LABCLIA [id number] [place] [address] [place] Lymphocytes/100 WBC (Bld) 28.4 % Normal [facility] Comment on above: Order Comment: Speci men Type: BLOOD SPECIMENOrdering Facility: [facility] Address: [address] [place] [address] Performed By: #### 5 7021-8 ####[facility] LABCLIA [id number] [place] [address] [place] MCH (RBC) [Entitic mass] 32.4 pg Normal 26.0-34.0 [facility] Comment on above: Order Comment: Speci men Type: BLOOD SPECIMENOrdering Facility: [facility] Address: [address] [place] [address] Performed By: #### 5 7021-8 ####[facility] LABCLIA [id number] [place] [address] [place] MCHC (RBC) [Mass/Vol] 32.9 g/dL Normal 30.5-36.0 [facility] Comment on above: Order Comment: Speci men Type: BLOOD SPECIMENOrdering Facility: [facility] Address: [address] [place] [address] Performed By: #### 5 7021-8 ####[facility] LABIA [id number] [place] [address] [place] MCV (RBC) [Entitic vol] 98.4 fL Normal 80.0-100.0 [facility] Comment on above: Order Comment: Speci men Type: BLOOD SPECIMENOrdering Facility: [facility] Address: [address] [place] [address] Performed By: #### 5 7021-8 ####[facility] LABIA [id number] [place] [address] [place] Monocytes (Bld) [#/Vol] 0.62 10*3/uL Normal <0.87 [facility] Comment on above: Order Comment: Speci men Type: BLOOD SPECIMENOrdering Facility: [facility] Address: [address] [place] [address] Performed By: #### 5 7021-8 ####[facility] LABIA [id number] [place] [address] [place] Monocytes/100 WBC (Bld) 7.1 % Normal [facility] Comment on above: Order Comment: Speci men Type: BLOOD SPECIMENOrdering Facility: [facility] Address: [address] [place] [address] Performed By: #### 5 7021-8 ####[facility] LABIA [id number] [place] [address] [place] Neutrophils (Bld) [#/Vol] 5.48 10*3/uL Normal 1.45-7.50 [facility] Comment on above: Order Comment: Speci men Type: BLOOD SPECIMENOrdering Facility: [facility] Address: [address] [place] [address] Performed By: #### 5 7021-8 ####[facility] LABCLIA [id number] [place] [address] [place] Neutrophils/100 WBC (Bld) 62.7 % Normal [facility] Comment on above: Order Comment: Speci men Type: BLOOD SPECIMENOrdering Facility: [facility] Address: [address] [place] [address] Performed By: #### 5 7021-8 ####[facility] LABCLIA [id number] [place] [address] [place] Nucleated RBC (Bld) [#/Vol] 10*3/uL Normal <0.01 [facility] Comment on above: Order Comment: Speci men Type: BLOOD SPECIMENOrdering Facility: [facility] Address: [address] [place] [address] Performed By: #### 5 7021-8 ####[facility] LABIA [id number] [place] [address] [place] Nucleated RBC/100 WBC (Bld) [Ratio] 0.0 /[address] [facility] Comment on above: Order Comment: Speci men Type: BLOOD SPECIMENOrdering Facility: [facility] Address: [address] [place] [address] Performed By: #### 5 7021-8 ####[facility] LABIA [id number] [place] [address] [place] Platelet mean volume (Bld) [Entitic vol] 10.9 fL Normal 9.0-12.7 [facility] Comment on above: Order Comment: Speci men Type: BLOOD SPECIMENOrdering Facility: [facility] Address: [address] [place] [address] Performed By: #### 5 7021-8 ####[facility] LABIA [id number] [place] [address] [place] Platelets (Bld) [#/Vol] 278 10*3/uL Normal 150-400 [facility] Comment on above: Order Comment: Speci men Type: BLOOD SPECIMENOrdering Facility: [facility] Address: [address] [place] [address] Performed By: #### 5 7021-8 ####[facility] LABCLIA [id number] [place] [address] [place] RBC (Bld) [#/Vol] 4.29 10*6/uL Normal 3.90-5.20 [facility] Comment on above: Order Comment: Speci men Type: BLOOD SPECIMENOrdering Facility: [facility] Address: [address] [place] [address] Performed By: #### 5 7021-8 ####[facility] LABCLIA [id number] [place] [address] [place] WBC (Bld) [#/Vol] 8.74 10*3/uL Normal 3.70-11.00 [facility] Comment on above: Order Comment: Speci men Type: BLOOD SPECIMENOrdering Facility: [facility] Address: [address] [place] [address] Performed By: #### 5 7021-8 ####[facility] LABIA [id number] [place] [address] [place] CK SerPl-cCncon 02-29-2024 CK [Catalytic activity/Vol] 73 U/L Normal 42-196 [facility] Comment on above: Order Comment: Speci men Type: BLOOD SPECIMENOrdering Facility: [facility] Address: [address] [place] [address] Performed By: #### 2 157-6, 3024-7, 3016-3, DHEAS ####[facility] LABCLIA [id number] [place] [id number] [place] CNOVon 02-29-2024 CNOV Normal [facility] metabolic 2000 panelon 02-29-2024 Albumin [Mass/Vol] 4.7 g/dL Normal 3.9-4.9 [facility] Comment on above: Order Comment: Speci men Type: BLOOD SPECIMENOrdering Facility: [facility] Address: [address] [place] [address] Performed By: #### 6 768-6, 87656-1 ####[facility] LABCLIA [id number] [place] [address] [place] ALT [Catalytic activity/Vol] 82 U/L High 7-38 [facility] Comment on above: Order Comment: Speci men Type: BLOOD SPECIMENOrdering Facility: [facility] Address: [address] [place] [address] Performed By: #### 6 768-6, 58177-1 ####[facility] LABCLIA [id number] [place] [address] [place] Anion gap [Moles/Vol] 13 mmol/L Normal 8-15 [facility] Comment on above: Order Comment: Speci men Type: BLOOD SPECIMENOrdering Facility: [facility] Address: [address] [place] [address] Performed By: #### 6 768-6, 33805-8 ####[facility] LABCLIA [id number] [place] [address] [place] AST [Catalytic activity/Vol] 37 U/L High 13-35 [facility] Comment on above: Order Comment: Speci men Type: BLOOD SPECIMENOrdering Facility: [facility] Address: [address] [place] [address] Performed By: #### 6 768-6, 08737-0 ####[facility] LABCLIA [id number] [place] [address] [place] Bilirubin [Mass/Vol] 0.4 mg/dL Normal 0.2-1.3 [facility] Comment on above: Order Comment: Speci men Type: BLOOD SPECIMENOrdering Facility: [facility] Address: [address] [place], [place] [address] Performed By: #### 6 768-6, 79845-3 ####[facility] LABCLIA [id number] [address] [address] [place] Calcium [Mass/Vol] 9.7 mg/dL Normal 8.5-10.2 [facility] Comment on above: Order Comment: Speci men Type: BLOOD SPECIMENOrdering Facility: [facility] Address: [address] [place] [address] Performed By: #### 6 768-6, 01330-1 ####[facility] LABCLIA [id number] [place] [address] [place] Chloride [Moles/Vol] 105 mmol/L Normal 98-107 [facility] Comment on above: Order Comment: Speci men Type: BLOOD SPECIMENOrdering Facility: [facility] Address: [address] [place] [address] Performed By: #### 6 768-6, 46665-0 ####[facility] LABCLIA [id number] [place] [address] [place] CO2 [Moles/Vol] 23 mmol/L Normal 22-30 [facility] Comment on above: Order Comment: Speci men Type: BLOOD SPECIMENOrdering Facility: [facility] Address: [address] [place] [address] Performed By: #### 6 768-6, 65259-2 ####[facility] LABCLIA [id number] [place] [address] [place] Creatinine [Mass/Vol] 0.88 mg/dL Normal 0.58-0.96 [facility] Comment on above: Order Comment: Speci men Type: BLOOD SPECIMENOrdering Facility: [facility] Address: [address] [place], [place] [address] Performed By: #### 6 768-6, 76100-6 ####[facility] [id number] [place] [address] [place] Creatinine and Glomerular filtration rate.predicted panel (S/P/Bld) 95 mL/min/1.73m??? Normal >=60 [facility] Comment on above: Order Comment: Specnora montero Type: BLOOD SPECIMENOrdering Facility: [facility] Address: [address] [place] [address] Result Comment: Dylan mated Glomerular Filtration Rate (eGFR) is calculated using the 2020 CKD-EPI creatinine equation. This equation utilizes serum creatinine, sex, and age as parameters. The creatinine assay has traceable calibration to isotope dilution-mass spectrometry. Refer to KDIGO guidelines for clinical interpretation. In patients with unstable renal function, e.g. those with acute kidney injury, the eGFR may not accurately reflect actual GFR. Performed By: #### 6 768-6, 33199-4 ####[facility] [id number] [place] [address] [place] Glucose [Mass/Vol] 83 mg/dL Normal 74-99 [facility] Comment on above: Order Comment: Nabeel montero Type: BLOOD SPECIMENOrdering Facility: [facility] Address: [address] [place] [address] Result Comment: The [place] [employer] (ADA) provides guidance for cutoff values for fasting glucose and random glucose. The ADA defines fasting as no caloric intake for at least 8 hours. Fasting plasma glucose results between 100 to 125 mg/dL indicate increased risk for diabetes (prediabetes).Fasting plasma glucose results greater than or equal to 126 mg/dL meet the criteria for diagnosis of diabetes. In the absence of unequivocal hyperglycemia, results should be confirmed by repeat testing. In a patient with classic symptoms of hyperglycemia or hyperglycemic crisis, random plasma glucose results greater than or equal to 200 mg/dL meet the criteria for diagnosis of diabetes.Reference: Standards of Medical Care in Diabetes 2016, [place] [employer]. Diabetes Care. 2016.39(Suppl 1). Performed By: #### 6 768-6, 99332-6 ####[facility] [id number] [place] [address] [place] Potassium [Moles/Vol] 3.8 mmol/L Normal 3.7-5.1 [facility] Comment on above: Order Comment: Speci men Type: BLOOD SPECIMENOrdering Facility: [facility] Address: [address] [place] [address] Performed By: #### 6 768-6, 82742-0 ####[facility] LABCLIA [id number] [place] [address] [place] Protein [Mass/Vol] 7.1 g/dL Normal 6.3-8.0 [facility] Comment on above: Order Comment: Speci men Type: BLOOD SPECIMENOrdering Facility: [facility] Address: [address] [place] [address] Performed By: #### 6 768-6, 83949-1 ####[facility] LABCLIA [id number] [place] [address] [place] Sodium [Moles/Vol] 141 mmol/L Normal 136-144 [facility] Comment on above: Order Comment: Speci men Type: BLOOD SPECIMENOrdering Facility: [facility] Address: [address] [place] [address] Performed By: #### 6 768-6, 19470-0 ####[facility] LABCLIA [id number] [place] [address] [place] Urea nitrogen [Mass/Vol] 12 mg/dL Normal 7-21 [facility] Comment on above: Order Comment: Speci men Type: BLOOD SPECIMENOrdering Facility: [facility] Address: [address] [place] [address] Performed By: #### 6 768-6, 94138-4 ####[facility] LABCLIA [id number] [place] [address] [place] DHEA-S Don 02-29-2024 DHEA-S [Mass/Vol] 173.2 ug/dL Normal 148.0-407.0 [facility] Comment on above: Order Comment: Speci men Type: BLOOD SPECIMENOrdering Facility: [facility] Address: [address] [place] [address] Result Comment: Refe rence ranges are age and gender specific. For additional information, reference range tables can be found in the laboratory test directory.The normal values are based on the following source: Dehydroepiandrosterone sulfate (DHEA S) [package insert V 17.0 [place]e]. [facility], [place], [place]: February 2013. Performed By: #### 2 157-6, 3024-7, 3016-3, DHEAS ####[facility] LABCLIA [id number] [place] [id number] [place] No Panel Informationon 02-28 Radiology Study observation (narrative) [facility] T4 Free SerPl-mCncon 024 Free T4 [Mass/Vol] 1.5 ng/dL Normal 0.9-1.7 [facility] Comment on above: Order Comment: Speci men Type: BLOOD SPECIMENOrdering Facility: [facility] Address: [address] [place] [address] [place] [address] Performed By: #### 2 157-6, 3024-7, 3016-3, DHEAS ####[facility] LABCLIA [id number] [address] [address] [place] TSH SerPl-aCncon 02-29-2024 TSH Qn 0.656 m[IU]/L Normal 0.270-4.200 [facility] Comment on above: Order Comment: Rishii men Type: BLOOD SPECIMENOrdering Facility: [facility] Address: [address] [place] [address] Result Comment: If t he patient is , TSH reference range varies by gestational period:First Trimester (weeks 9-12): 0.180-2.990 mIU/LSecond Trimester: 0.110-3.980 mIU/LThird Trimester: 0.480-4.710 mIU/Cassie Enrique et al. A Practical Approach for the Verifications and Determination of Site- and Trimester-Specific Reference Intervals for Thyroid Function tests in . Thyroid, 2019:29:3:412-420. Joe E, et al. 2017 Guidelines of the [place] Thyroid Association for the Diagnosis and Management of Thyroid Disease during and the . Thyroid, 2017:27:3:315-389. Performed By: #### 2 157-6, 3024-7, 3016-3, DHEAS ####[facility] LABCLIA [id number] [address] [facility] XR TIBIA FIBULA 2V AP/LAT LT on 02-29-2024 XR TIBIA FIBULA 2V AP/LAT LT Normal [facility] XR TIBIA FIBULA 2V AP/LAT RT on 02-29-2024 XR TIBIA FIBULA 2V AP/LAT RT Normal [facility] CNPNon 02-22-[address] [facility] Emergency Department Summary on 02-16-2024 Emergency Department Summary [facility] Medical Records Department [address] [place] [id number] Emergency Department Summary 02/16/24 MR#: [id number] Acct: [id number] Name: DORY ANDREWS GREG Rep #: [id number] : 2000 23 From: Too Bob MD PCP: Dr. Wu Herrera MD Status:PRE ER Location: ED HPI History of Present Illness Chief Complaint: GI Bleed Detail of Chief Complaint: Bright red blood per rectum without pain Informant: patient Onset/Context/Timing Onset: Today and Yesterday Context: Sudden Onset Timing: Intermittent Quality: Bright red blood per rectum with bowel movement Location: Rectum Current Severity: Moderate Maximum Severity: Moderate Worsened by: Bowel movement Relieved by: Not applicable Associated Symptoms Associated Symptoms: None Narrative Narrative: patient is a 23-year-old who presents because of bright red blood per rectum. She noticed Yvonna blood in the commode when used the restroom. She also noted blood on toilet paper. She denies history of hemorrhoids. She denies history of liver disease other than fatty liver on ultrasound. She apparently had a abnormal Hemoccult test and was told to follow-up on Thursday for repeat. Patient denies abdominal pain. Patient has orthostatic symptoms. Patient denies black stool or maroon-colored stool. Patient is not on antithrombotic or anticoagulant. Patient denies orthostatic symptoms. Prior similar symptoms: No Recent Illness/Hospitalization: No PFSH PFSH Medical History Former smoker depression History of anorexia nervosa Vitamin B12 deficiency Abdominal bloating Constipation History of marijuana use Generalized anxiety disorder Bipolar 1 disorder, depressed, moderate PTSD (post-traumatic stress disorder) Tobacco abuse Osteopenia GERD (gastroesophageal reflux disease) Asthma Migraines ( 12/08/23) Alcohol withdrawal Desire for detoxification History of cocaine use Alcohol use disorder Home Medications ???Medication ???Instructions ???Recorded ???Last Taken ???Type omeprazole 20 mg capsule,delayed 20 mg PO DAILY #30 CAPSULES 01/21/24 Unknown Rx release ondansetron 4 mg disintegrating 4 mg PO Q8H PRN PRN Nausea #12 tabs 01/21/24 Unknown Rx tablet aripiprazole 2 mg tablet 4 mg PO QHS 02/08/24 Unknown History Allergy/AdvReac Type Severity Reaction Status Date / Time No Known Allergies Allergy Verified 02/16/24 20:38 Family History Other Alcoholism Anxiety Arthritis Asthma COPD (chronic obstructive pulmonary disease) Depression High cholesterol Schizophrenia Surgical History History of surgery Social History Smoking Status: Current every day smoker tobacco type: cigarettes and e-cigarettes alcohol intake: former details: 5 months sober substance use type: does not use ROS ROS ED Constitutional Constitutional ED: Denies chills or fever(s) Cardiovascular Cardiovascular: Denies chest pain or palpitations Respiratory/Chest Respiratory/Chest: Denies cough, dyspnea or dyspnea on exertion Gastrointestinal Gastrointestinal: Reports other Details: Bright red blood per rectum with bowel movement ; Denies abdominal pain, constipation, diarrhea, melena, nausea or vomiting Genitourinary Genitourinary ED: Denies hematuria Psychiatric Psychiatric: Reports anxiety Hematologic/Lymphatic Hematologic/Lymphatic: Reports systems reviewed and no addt'l complaints, except as documented EXAM Physical Exam Const Vital Signs: 02/16/24 20:38 Temperature 97.2 F L Temperature Source Temporal Pulse Rate 89 Respiratory Rate 18 Blood Pressure 127/80 H Blood Pressure Mean 95 Pulse Ox 99 Oxygen Delivery Method Room Air Positive well nourished and well developed General Appearance ED: well developed and NAD; Negative for pallor HEENT Reports moist mucous membranes Eyes PERRL and EOMs intact bilaterally General Eye ED: Negative for pale conjunctiva or scleral icterus Resp normal respiratory effort Cardio regular rate and regular rhythm GI normal to inspection, nondistended, normoactive bowel sounds, non-tender, non-distended and no masses; Negative for hepatosplenomegaly Narrative: Rectal exam reveals no fissures, fistulas or hemorrhoids. Digital exam revealed no mass or tenderness. There was blood noted on gloved index finger. Anoscopy was performed. Back/Spine no CVA tenderness Extremity General Extremety ED: Negative for edema or tenderness General Extremity: Negative for edema Neuro oriented x3 and CN's II-XII intact bilaterally Sensorium / Orientation: alert Psych ment (more content not included)... Normal [facility] CNOVon 02-15-[address] [facility] CNPNon 02-15-[address] [facility] CREATININE BLDOrdered By: Lauren Crews on 02-15-2024 Creatinine [Mass/Vol] 0.66 mg/dL 0.58 - 0.96 mg/dL [facility] GFR/1.73 sq M.predicted among non-blacks MDRD (S/P/Bld) [Vol rate/Area] 127 mL/min/{1.73_m2} - PINF [facility] Comment on above: Estimated Glomerular Filtration Rate (eGFR) is calculated using the 2020 CKD-EPI creatinine equation. This equation utilizes serum creatinine, sex, and age as parameters. The creatinine assay has traceable calibration to isotope dilution-mass spectrometry. Refer to KDIGO guidelines for clinical interpretation. In patients with unstable renal function, e.g. those with acute kidney injury, the eGFR may not accurately reflect actual GFR. Interpretation and review of laboratory results Normal [facility] CREATININE BLDon 02-15-2024 Creatinine [Mass/Vol] 0.66 mg/dL Normal 0.58-0.96 [facility] Comment on above: Order Comment: Speci men Type: BLOOD SPECIMENOrdering Facility: [facility] Address: [address] [place] [address] Performed By: #### C RET1 ####[facility] [id number] [place] [address] [place] Creatinine and Glomerular filtration rate.predicted panel (S/P/Bld) 127 mL/min/1.73m??? Normal >=60 [facility] Comment on above: Order Comment: Speci men Type: BLOOD SPECIMENOrdering Facility: [facility] Address: [address] [place] [address] Result Comment: Dylan mated Glomerular Filtration Rate (eGFR) is calculated using the 2020 CKD-EPI creatinine equation. This equation utilizes serum creatinine, sex, and age as parameters. The creatinine assay has traceable calibration to isotope dilution-mass spectrometry. Refer to KDIGO guidelines for clinical interpretation. In patients with unstable renal function, e.g. those with acute kidney injury, the eGFR may not accurately reflect actual GFR. Performed By: #### C RET1 ####[facility] [id number] [place] [address] [place] DHEA-S BLDon 02-15-2024 DHEA-S [Mass/Vol] 100.6 ug/dL Low 148.0-407.0 [facility] Comment on above: Order Comment: Speci men Type: BLOOD SPECIMENOrdering Facility: [facility] Address: [address] [place] [address] Result Comment: Refe rence ranges are age and gender specific. For additional information, reference range tables can be found in the laboratory test directory.The normal values are based on the following source: Dehydroepiandrosterone sulfate (DHEA S) [package insert V 17.0 [place]]. [facility], [place], [place]: February 2013. Performed By: #### Alfonso [place], 61486-1, 65474-4 ####[facility] LABCLIA [id number] [facility] [id number], [place] [address] [place]#### 76579-2 ####[facility] LABCLIA [id number] [address] [id number] [place] [address] [place] FSH SerPl-aCncon 02-15-2024 Follitropin Qn 7.2 m[IU]/mL Normal See comment [facility] Comment on above: Order Comment: Speci men Type: BLOOD SPECIMENOrdering Facility: [facility] Address: [address] [place] [address] Result Comment: Refe rence range: Follicular: 3.5-12.5 mIU/mL Ovulation: 4.7-21.5 mIU/mL Luteal: 1.7-7.7 mIU/mL Postmenopausal: 25.8-134.8 mIU/mL Performed By: #### D ROCÍO, 46897-8, 33645-8 ####[facility] LABCLIA [id number] [address]#### 91868-2 ####[facility] LABIA [id number] [address] [id number] [place] [address] [place] GLUCOSE, FASTINGon Glucose post fast [Mass/Vol] 83 mg/dL 74 - 99 mg/dL [facility] Comment on above: [place] Diabetes As sociation guidelines state that a diabetes mellitus diagnosis is preliminarily made when the fasting plasma glucose meets or exceeds 126 mg/dL. In the absence of unequivocal hyperglycemia, results should be confirmed with repeat testing. Patients are at increased risk for diabetes mellitus (prediabetes) when the fasting glucose is 100 to 125 mg/dL. Glucose p fast SerPl-mCncon 02-15-2024 Glucose post fast [Mass/Vol] 83 mg/dL Normal 74-99 [facility] Comment on above: Order Comment: Speci men Type: BLOOD SPECIMENOrdering Facility: [facility] Address: [address] [place] [address] Result Comment: Amer ican Diabetes Association guidelines state that a diabetes mellitus diagnosis is preliminarily made when the fasting plasma glucose meets or exceeds 126 mg/dL. In the absence of unequivocal hyperglycemia, results should be confirmed with repeat testing. Patients are at increased risk for diabetes mellitus (prediabetes) when the fasting glucose is 100 to 125 mg/dL. Performed By: #### 1 558-6 ####[facility] LABCLIA [id number] [place] [id number] [place] Glucose post fast [Mass/Vol] on 02-15-2024 Interpretation and review of laboratory results Normal [facility] HYDROXYPROGESTERONE-17on 17-HYDROXYPROGESTER ONE QUANTITATIVE BY HPLC-MS/MS, SERUM OR PLASMA 20.78 ng/dL Normal <=206.00 [facility] Comment on above: Order Comment: Speci men Type: BLOOD SPECIMENOrdering Facility: [facility] Address: [address] [place] [address] Result Comment: INTE RPRETIVE INFORMATION for 17-Hydroxyprogesterone in females:Follicular 15 to 70 ng/dLLuteal 35 to 290 ng/dLREFERENCE INTERVAL: 17-Hydroxyprogesterone Qnt, HPLC-MS/MSAccess complete set of age- and/or gender-specific referenceintervals for this test in the [facility] Test Directory(Loccie).This test was developed and its performance characteristicsdetermined by [facility]. It has not been cleared orapproved by the [place] Food and Drug Administration. This test wasperformed in a CLIA certified laboratory and is intended forclinical purposes.Performed By: [facility] [place], [place] [address]Jmpqybppke Director: Darrell Escobar MD, PhDCLIA Number: [id number] Performed By: #### H PROG ####[facility] LABORATORIESIA [id number] [place] [address] HbA1c (Bld)on 02-15-2024 Average glucose Estimated from glycated hemoglobin (Bld) [Mass/Vol] 88 mg/dL [facility] Comment on above: eAG: (Estimated aver age glucose) is a calculated value from HgbA1c and is premium representative of the average blood glucose level in the last 2-3 month period. HbA1c (Bld) [Mass fraction] 4.7 % 4.3 - 5.6 % [facility] Comment on above: [place] Diabetes As sociation guidelines indicate that patients with HgbA1c in the range 5.7-6.4% are at increased risk for development of diabetes, and intervention by lifestyle modification may be beneficial. HgbA1c greater or equal to 6.5% is considered diagnostic of diabetes. [facility] Average glucose Estimated from glycated hemoglobin (Bld) [Mass/Vol] 88 mg/dL Normal [facility] Comment on above: Order Comment: Nabeel montero Type: BLOOD SPECIMENOrdering Facility: [facility] Address: [address] [place] [address] Result Comment: eAG: (Estimated average glucose) is a calculated value from HgbA1c and is premium representative of the average blood glucose level in the last 2-3 month period. Performed By: #### 5 5454-3 ####[facility] LABCLIA [id number] [place] [address] [place] HbA1c (Bld) [Mass fraction] 4.7 % Normal 4.3-5.6 [facility] Comment on above: Order Comment: Nabeel montero Type: BLOOD SPECIMENOrdering Facility: [facility] Address: [address] [place] [address] Result Comment: Amer ican Diabetes Association guidelines indicate that patients with HgbA1c in the range 5.7-6.4% are at increased risk for development of diabetes, and intervention by lifestyle modification may be beneficial. HgbA1c greater or equal to 6.5% is considered diagnostic of diabetes. Performed By: #### 5 5454-3 ####[facility] LABCLIA [id number] [place] [address] [place] INSULIN ASSAY BLOODon 2023 Insulin Qn 10.9 u[IU]/mL 3.0 - 25.0 mU/L [facility] Insulin Qnon 02-15-2024 Interpretation and review of laboratory results Normal [facility] Insulin SerPl-aCncon 024 Insulin Qn 10.9 u[IU]/mL Normal 3.0-25.0 [facility] Comment on above: Order Comment: Speci men Type: BLOOD SPECIMENOrdering Facility: [facility] Address: [address] [place] [address] Performed By: #### 2 0448-7 ####[facility] LABCLIA [id number] [place] [address] [place] LH SerPl-aCncon 02-15-2024 Lutropin Qn 14.1 m[IU]/mL Normal See comment [facility] Comment on above: Order Comment: Speci men Type: BLOOD SPECIMENOrdering Facility: [facility] Address: [address] [place] [address] Result Comment: Refe rence range: Follicular: 2.4-12.6 mIU/mL Midcycle: 14.0-95.6 mIU/mL Luteal: 1.0-11.4 mIU/mL Post Gaye: 7.7-58.5 mIU/mL Performed By: #### D ROCÍO, 64085-0, 98548-7 ####[facility] LABCLIA [id number] [place] [address] [place]#### 84444-1 ####[facility] LABCLIA [id number] [place] [address] [place] [address] [id number] [place] [address] [place] Lipid 1996 panelon 4 Cholesterol [Mass/Vol] 133 mg/dL Normal <200 [facility] Comment on above: Order Comment: Speci men Type: BLOOD SPECIMENOrdering Facility: [facility] Address: [address], [place] [address] Result Comment: <200 mg/dL, Desirable 200-239 mg/dL, Borderline high>239 mg/dL, High Performed By: #### Alfonso ALFORD, 38225-3, 61091-1 ####[facility] LABCLIA [id number] [place] [address] [place]#### 08065-6 ####[facility] LABCLIA [id number] [address] STATES [facility] [id number] [place] [address] [place] Cholesterol in HDL [Mass/Vol] 52 mg/dL Normal >39 [facility] Comment on above: Order Comment: Speci men Type: BLOOD SPECIMENOrdering Facility: [facility] Address: [address] [place] [address] Result Comment: 40-5 9 mg/dL, Acceptable>59 mg/dL, High: Negative risk factor for coronary heart disease<40 mg/dL, Low: Positive risk factor for coronary heart disease Performed By: #### Alfonso ALFORD, 27578-7, 75873-2 ####[facility] LABCLIA [id number] [place] [address] [place]#### 87132-7 ####[facility] LABCLIA [id number] [address] STATES OF [facility] [id number] [place] [address] [place] Cholesterol in LDL [Mass/Vol] 72 mg/dL Normal <100 [facility] Comment on above: Order Comment: Speci men Type: BLOOD SPECIMENOrdering Facility: [facility] Address: [address] [place] [address] Result Comment: <100 mg/dL, Optimal 100-129 mg/dL, Near optimal/above optimal 130-159 mg/dL, Borderline high 160-189 mg/dL, High>189 mg/dL, Very highSecondary prevention optimal LDL Cholesterol levels are recommended to be < 70 mg/dL Performed By: #### Alfonso ALFORD, 06077-4, 35207-5 ####[facility] LABCLIA [id number] [place] [address] [place]#### 82832-7 ####[facility] LABCLIA [id number] [address] [id number] [place] [address] [place] Cholesterol in LDL/Cholesterol in HDL [Mass ratio] 1.38 {ratio} Normal <2.54 [facility] Comment on above: Order Comment: Speci men Type: BLOOD SPECIMENOrdering Facility: [facility] Address: [address] [place] [address] Result Comment: El[place] lee:1. National Cholesterol Education Program ATP III Guideline At-A-Glance Quick Desk Reference: National Heart, Lung, and Blood [place]. National Institutes of Health. 2001: NIH Publication No. 01-3305.2. An International Atherosclerosis Society position paper: global recommendations for the management of dyslipidemia: executive summary, Atherosclerosis. 2014: 232(2):410-413.Cut Points from the Lipid Research Clinic's Prevalence Study for ages 20 to 24 years can be located in the following reference: Expert Panel on Integrated Guidelines for Cardiovascular Health and Risk Reduction in Children and Adolescents: National Heart, Lung and Blood [place]. Pediatrics. 2011:128(Suppl 5):P096-362. Performed By: #### Alfonso ALFORD, 47624-9, 13520-6 ####[facility] LABCLIA [id number] [place] [address] [place]#### 92777-0 ####[facility] LABCLIA [id number] [address] [address] [facility] [id number] [place] [address] [place] Cholesterol in VLDL [Mass/Vol] 9 mg/dL Normal <30 [facility] Comment on above: Order Comment: Speci men Type: BLOOD SPECIMENOrdering Facility: [facility] Address: [address] [place] [address] Performed By: #### Alfonso ALFORD, 63117-3, 40598-8 ####[facility] LABCLIA [id number] [place] [address] [place]#### 30162-9 ####[facility] LABCLIA [id number] [address] STATES OF [facility] [id number] [address] [place] Cholesterol non HDL [Mass/Vol] 81 mg/dL Normal <130 [facility] Comment on above: Order Comment: Speci men Type: BLOOD SPECIMENOrdering Facility: [facility] Address: [address] [place] [address] Result Comment: <130 mg/dL, Optimal 130-159 mg/dL, Near optimal/above optimal 160-189 mg/dL, Borderline high 190-219 mg/dL, High>219 mg/dL, Very highSecondary prevention optimal non HDL Cholesterol levels are recommended to be <100 mg/dL Performed By: #### Alfonso ALFORD, 80703-4, 23831-1 ####[facility] LABCLIA [id number] [place] [address] [place]#### 20983-2 ####[facility] LABCLIA [id number] [place] [address] [place] [address] [facility] [id number] [place] [address] [place] Cholesterol.total/C holesterol in HDL [Mass ratio] 2.56 {ratio} Normal <5.10 [facility] Comment on above: Order Comment: Speci men Type: BLOOD SPECIMENOrdering Facility: [facility] Address: [address] [place] [address] Performed By: #### Alfonso ALFORD, 22100-1, 51312-9 ####[facility] LABCLIA [id number] [address] [address] [place]#### 87183-8 ####[facility] LABCLIA [id number] [address] [address] [place] [facility] [id number] [place] [address] [place] FASTING TIME [address] [facility] Comment on above: Order Comment: Speci men Type: BLOOD SPECIMENOrdering Facility: [facility] Address: [address] [place] [address] Performed By: #### Alfonso ALFORD, 34114-8, ####[facility] LABCLIA [id number] [address] [address] [place]#### 21416-6 ####[facility] LABCLIA [id number] [address] [address] [place] STATES [facility] [id number] [place] [address] [place] Triglyceride [Mass/Vol] 44 mg/dL Normal <150 [facility] Comment on above: Order Comment: Speci men Type: BLOOD SPECIMENOrdering Facility: [facility] Address: [address] [place] [address] Result Comment: <150 mg/dL, Normal 150-199 mg/dL, Borderline high 200-499 mg/dL, High>499 mg/dL, Very high Performed By: #### Alfonso ALFORD, 13642-0, 44976-8 ####[facility] LABCLIA [id number] [place] [address] [place]#### 05909-2 ####[facility] LABCLIA [id number] [address] STATES OF [facility] [id number] [place] [address] [place] Progest SerPl-mCncon 024 Progesterone [Mass/Vol] ng/mL Normal See comment [facility] Comment on above: Order Comment: Speci men Type: BLOOD SPECIMENOrdering Facility: [facility] Address: [address] [place] [address] Result Comment: Mens trual Cycle Progesterone Reference Ranges:Follicular: <1.0 ng/mLOvulation: <12.1 ng/mLLuteal: 1.8 to 23.9 ng/mL. Progesterone Reference Ranges vary by gestational period:First Trimester: 11.0 to 44.3 ng/mLSecond Trimester: 25.4 to 83.3 ng/mLThird Trimester: 58.7 to 214 ng/mLPost menopausal Progesterone: <0.5 ng/mLReference: 1. Progesterone (Progesterone III) [package insert V 1.0 Surinamese]. [employer] Richard Pauer - 3P, [place], [place]. April 2015. Performed By: #### 2 842-3, 2986-8, 3016-3, 8459-9 ####[facility] LABCLIA [id number] [place] [address] [place] Prolactin SerPl-mCncon 02-14 Prolactin [Mass/Vol] 10.5 ng/mL Normal 4.5-26.8 [facility] Comment on above: Order Comment: Speci men Type: BLOOD SPECIMENOrdering Facility: [facility] Address: [address] [place] [id number] Result Comment: Prol actin test is performed using the [employer] Electrochemiluminescence Immunoassay method. Results obtained with different methods or kits cannot be used interchangeably. Performed By: #### 2 842-3, 2986-8, 3016-3, 0429-9 ####[facility] LABCLIA [id number] [place] [address] [place] TSH SerPl-aCncon 02-15-2024 TSH Qn 0.616 m[IU]/L Normal 0.270-4.200 [facility] Comment on above: Order Comment: Nabeel montero Type: BLOOD SPECIMENOrdering Facility: [facility] Address: [address] [place] [address] Result Comment: If t he patient is , TSH reference range varies by gestational period:First Trimester (weeks 9-12): 0.180-2.990 mIU/LSecond Trimester: 0.110-3.980 mIU/LThird Trimester: 0.480-4.710 mIU/Cassie Enrique et al. A Practical Approach for the Verifications and Determination of Site- and Trimester-Specific Reference Intervals for Thyroid Function tests in . Thyroid, 2019:29:3:412-420. Joe E, et al. 2017 Guidelines of the [place] Thyroid Association for the Diagnosis and Management of Thyroid Disease during and the . Thyroid, 2017:27:3:315-389. Performed By: #### 2 842-3, 2986-8, 3016-3, 2839-9 ####[facility] LABIA [id number] [place] [address] [place] Testost SerPl-mCncon 024 Testosterone [Mass/Vol] ng/dL Normal <40 [facility] Comment on above: Order Comment: Nabeel montero Type: BLOOD SPECIMENOrdering Facility: [facility] Address: [address] [place] [address] Performed By: #### 2 842-3, 2986-8, 3016-3, 2839-9 ####[facility] LABIA [id number] [place] [address] [place] Vit B12 SerPl-mCncon 024 Cobalamin (Vitamin B12) [Mass/Vol] 432 pg/mL Normal 232-1245 [facility] Comment on above: Order Comment: Speci men Type: BLOOD SPECIMENOrdering Facility: [facility] Address: [address] [facility] [address] Performed By: #### 2 132-9 ####[facility] LABCLIA [id number] DARIAN R[place] [address] [place] Breast Limited Unilateralon 02-11-2024 Breast Limited Unilateral [facility] Imaging Services [address] [place], [place] [address] Breast Limited Unilateral MR#: [id number] Acct: [id number] Name: DORY ANDREWS GREG Rep #: [id number] : 2000 F 23 From: Jr guidry MD PCP: Dr. Wu Herrera MD Status: [facility] Study: Breast Limited Unilateral Date of Exam: Exam# [id number] Ordering Dr: Pari Livingston CATHODE BUILDER CATHODE BUILDER- C [id number] STUDY: ULTRASOUND BREAST - LEFT REASON FOR EXAM: Female, 23 years old. Left breast lump. TECHNIQUE: Axial and longitudinal images of the LEFT breast were performed with a high resolution ultrasound transducer. # OF IMAGES: 28 COMPARISON: None. FINDINGS: LEFT Breast: Imaging of the inferior half of the left breast was examined with ultrasound. 3 simple cysts are seen. The largest measures 8 mm x 11 mm x 3 mm. This is at the 7:00 position of the breast at 6 cm from the nipple. US/Breast Limited Unilateral IMPRESSION: 3 benign-appearing cysts are seen. ASSESSMENT CATEGORY: BIRADS Category 2: Benign. A letter regarding these results will be sent to the patient by the facility within 30 days. Electronically Signed: Jr Shaver MD at 10:56 EDT , CC: JACEY Livingston; Dr. Wu Herrera MD Clinical Law Professor: Signed Normal [facility] Breast Limited Unilateral [facility] Imaging Services [address] [place], [place] [id number] Breast Limited Unilateral MR#: [id number] Acct: [id number] Name: DORY ANDREWS GREG Rep #: [id number] : 2000 F 23 From: Jr guidry MD PCP: Dr. Wu Herrera MD Status: [facility] Study: Breast Limited Unilateral Date of Exam: Exam# [id number] Ordering Dr: Pari Livingston NP CATHODE BUILDER- C [id number] STUDY: ULTRASOUND BREAST - RIGHT REASON FOR EXAM: Female, 23 years old. Right breast lump. TECHNIQUE: Axial and longitudinal images of the RIGHT breast were performed with a high resolution ultrasound transducer. # OF IMAGES: 35 COMPARISON: None. FINDINGS: RIGHT Breast: The inferior half of the right breast as well as the axillary region of the right breast were examined with ultrasound. Multiple simple cysts are seen. The largest cyst measures 9 mm x 7 mm x 7 mm. This is at the 11:00 position of the breast at 10 cm from the nipple. US/Breast Limited Unilateral IMPRESSION: Multiple simple cysts. ASSESSMENT CATEGORY: BIRADS Category 2: Benign. A letter regarding these results will be sent to the patient by the facility within 30 days. Electronically Signed: Jr Shaver MD at 10:55 EDT Reading Location ID and State: [facility] / [place] , Service support , CC: JACEY Livingston; Dr. Wu Herrera MD Clinical Law Professor: Signed Normal [facility] MR/BMS.BPon 02-08-2024 MR/BMS.BP [facility] [address] [facility], [address] [place] [address] OFFICE VISIT Date of Service: 02/08/24 MR#: [id number] Acct: [id number] Name: DORY ANDREWS GREG Rep #: [id number] : 2000 Provider: Dr. Hakeem Izaguirre se, DO Age/Sex: 23/F Location: [facility].BP Status: Signed Intake Vital Signs 01/21/24 13:10 02/08/24 14:20 02/08/24 14:26 Height 5 ft 2 in 5 ft 2 in 5 ft 2 in BP 109/67 Blood Pressure Location Rt brachial Position Sitting Pulse 97 Pulse Source Monitor BP Intake Visit Reasons: Follow up Energy Consultant Required: No Accompanied by: Self Is patient in pain?: No Allergies No Known Allergies Allergy (Verified 02/08/24 14:27) Medications ???Medication ???Instructions ???Recorded ???Confirmed ???Type omeprazole 20 mg capsule,delayed 20 mg PO DAILY #30 CAPSULES 01/21/24 02/08/24 Rx release ondansetron 4 mg disintegrating 4 mg PO Q8H PRN PRN Nausea #12 tabs 01/21/24 02/08/24 Rx tablet aripiprazole 2 mg tablet 4 mg PO QHS 02/08/24 02/08/24 History Current gender identity: female Nurse's Note: Presents to the office today for follow up. [facility] Medical History Former smoker depression History of anorexia nervosa Vitamin B12 deficiency Abdominal bloating Constipation History of marijuana use Generalized anxiety disorder Bipolar 1 disorder, depressed, moderate PTSD (post-traumatic stress disorder) Tobacco abuse Osteopenia GERD (gastroesophageal reflux disease) Asthma Migraines ( 12/08/23) Alcohol withdrawal Desire for detoxification History of cocaine use Alcohol use disorder Surgical History History of surgery Family History Other Alcoholism Anxiety Arthritis Asthma COPD (chronic obstructive pulmonary disease) Depression High cholesterol Schizophrenia Social History current gender identity: female Smoking Status: Current every day smoker tobacco type: cigarettes and e-cigarettes alcohol intake: former details: 5 months sober substance use type: does not use HPI History of Present Illness History provided by: patient HPI: Dory Andrews is a 23 year old female who presents today for follow up evaluation. Was admitted to [facility] from Thursday to Thursday in January, and was started on aripiprazole. Was having some hallucination type symptoms but she believes this was secondary to stress and sleep deprivation. Was spending days at a time without any help in raising son. Has broke up with her boyfriend 2 weeks ago and has moved back in with her grandparents. They had been arguing, but this culminated when she had one drink for her birthday and which made him angry. Did recently see Dr. Herrera recently and per self report has had a positive PUMA. Has been having some headaches, fatigue, GI issues and general pain. Finds that she struggles to eat much at one time and was likely getting to point of dehydration. Is doing better raising son now that she has support of her grandparents. Has been getting much more sleep than she used to. Generally getting around 6-7 hours in recent past. Does also try to get naps. Denies any recent AH/VH type symptoms. Feels like her mood overall is I don't know. At this point feels like she is just existing. Having trouble finding rangel in things that she used to enjoy doing. Has continued to follow with Chelsea Marshall. Unsure if aripiprazole is making things worse or just flattening her mood. Admits that she is somewhat stressed as somebody in the ER categorized her affect is flat. She did some research on flat affect and found that it is associated with schizophrenia. Discussed this at length and do not feel patient demonstrates symptoms of schizophrenia at this time. Does feel that she feels irritable at times. Does find that she is more sensitive to noises than she had been in the past. Did have one episode of intrusive thoughts of self harm. However denies acting upon these thoughts. Review of Systems Constitutional Reports: fatigue; Denies: fever(s), chills or change in weight Eyes Denies: change in vision or blurry vision Ears, Nose, Mouth, Throat Denies: throat pain, neck pain or change in hearing Cardiovascular Denies: chest pain, palpitations or dyspnea Respiratory Denies: dyspnea, cough or wheezing Gastrointestinal Denies: abdominal pain, diarrhea or constipation Genitourinary Denies: dysuria or urinary frequency Musculoskeletal Denies: back pain, neck pain or muscle weakness Integumentary/Breast Denies: rash or new lesions Neurological Denies: headache(s), dizziness or confusion Endocrine Reports: fatigue; Denies: excessive sweating Hematol (more content not included)... Normal [facility] CNPNon 02-03-[address] [facility] Urine Cultureon 01-23-2024 URC Below infection leve l. Mixed Gram Positive Organisms Austin Count 1000-10,000 MIXC Mixed contaminants. Submit a new specimen if indicated. Normal [facility] Comment on above: Performed By: #### M 100.2200 ####[facility] [address] [place], [address] CBC W/Diff, Automatedon 01-10 Absolute Lymph 1.54 X10 3/uL Normal 0.83-4.51 [facility] [facility] Comment on above: Performed By: #### L 400.0001, L400.7600 #### [facility] [address] [place], [address] Absolute Neut 3.1 X10 3/uL Normal 2.0-7.7 [facility] Comment on above: Performed By: #### L 400.0001, L400.7600 #### [facility] [address] [place], [address] Basophils/100 WBC (Bld) 0.6 % Normal 0-1 [facility] Comment on above: Performed By: #### L 400.0001, L400.7600 #### [facility] [address] [place], [address] Eosinophils/100 WBC (Bld) 1.0 % Normal 0-5 [facility] Comment on above: Performed By: #### L 400.0001, L400.7600 #### [facility] [address] [place], [address] Erythrocyte distribution width (RBC) [Ratio] 12.6 % Normal 11.6-14.6 [facility] Comment on above: Performed By: #### L 400.0001, L400.7600 #### [facility] [address] [place], [address] Hematocrit (Bld) [Volume fraction] 39.7 % Normal 37-47 [facility] Comment on above: Performed By: #### L 400.0001, L400.7600 #### [facility] [address] [place], [address] Hemoglobin (Bld) [Mass/Vol] 13.0 g/dL Normal 12.0-15.0 [facility] Comment on above: Performed By: #### L 400.0001, L400.7600 #### [facility] [address] [place], [address] IG% 0.200 Normal 0.0-0.9 [facility] Comment on above: Result Comment: IG% - Immature Granulocytes (promyelocytes, myelocytes and metamyelocytes) > 1% indicates that a LEFT SHIFT is Present. Performed By: #### L 400.0001, L400.7600 #### [facility] [address] [place], [address] Lymphocytes/100 WBC (Bld) 30.0 % Normal 19-41 [facility] Comment on above: Performed By: #### L 400.0001, L400.7600 #### [facility] [address] [place], [address] MCH (RBC) [Entitic mass] 31.3 pg Normal 27.0-32.0 [facility] Comment on above: Performed By: #### L 400.0001, L400.7600 #### [facility] [address] [place], [address] MCHC (RBC) [Mass/Vol] 32.7 g/dL Normal 32-36 [facility] Comment on above: Performed By: #### L 400.0001, L400.7600 #### [facility] [address] [place], [address] MCV (RBC) [Entitic vol] 95.7 fL Normal 81-99 [facility] Comment on above: Performed By: #### L 400.0001, L400.7600 #### [facility] [address] [place], [address] Monocytes/100 WBC (Bld) 8.0 % Normal 0-10 [facility] Comment on above: Performed By: #### L 400.0001, L400.7600 #### [facility] [address] [place], [address] Neutrophils/100 WBC (Bld) 60.2 % Normal 47-70 [facility] Comment on above: Performed By: #### L 400.0001, L400.7600 #### [facility] [address] [place], [address] Nucleated RBC (Bld) [#/Vol] 0 10*3/uL Normal 0-5 [facility] Comment on above: Performed By: #### L 400.0001, L400.7600 #### [facility] [address] [place], [address] Platelet mean volume (Bld) [Entitic vol] 10.5 fL Normal 6.2-12.0 [facility] Comment on above: Performed By: #### L 400.0001, L400.7600 #### [facility] [address] [place], [address] Platelets (Bld) [#/Vol] 202 10*3/uL Normal 150-450 [facility] Comment on above: Performed By: #### L 400.0001, L400.7600 #### [facility] [address] [place], [address] RBC (Bld) [#/Vol] 4.15 10*6/uL Low 4.2-5.4 [facility] Comment on above: Performed By: #### L 400.0001, L400.7600 #### [facility] [address] [place], [address] RDW SD 44.3 fl High 35.1-43.9 [facility] Comment on above: Performed By: #### L 400.0001, L400.7600 #### [facility] [address] [place], [address] WBC (Bld) [#/Vol] 5.1 10*3/uL Normal 4.4-11.0 [facility] Comment on above: Performed By: #### L 400.0001, L400.7600 #### [facility] [address] [place], [address] Comprehensive Metabolic Prof ilon 01-21-2024 Albumin [Mass/Vol] 4.0 g/dL Normal 3.2-5.0 [facility] Comment on above: Performed By: #### L 500.2500 #### [facility] [address] [place], [address] Albumin/Globulin [Mass ratio] 1.3 {ratio} Normal 0.9-2.4 [facility] Comment on above: Performed By: #### L 500.2500 #### [facility] [address] [place], [address] ALK P 107 U/L Normal 45-117 [facility] Comment on above: Performed By: #### L 500.2500 #### [facility] [address] [place], [address] ALT [Catalytic activity/Vol] 35 U/L Normal 13-56 [facility] Comment on above: Performed By: #### L 500.2500 #### [facility] [address] [place], [address] AST [Catalytic activity/Vol] 23 U/L Normal 15-37 [facility] Comment on above: Performed By: #### L 500.2500 #### [facility] [address] [place], [address] Bilirubin [Mass/Vol] 0.50 mg/dL Normal 0.20-1.00 [facility] Comment on above: Result Comment: For patients on eltrombopag therapy, use of Dimension [place] TBIL is not recommended. Performed By: #### L 500.2500 #### [facility] [address] [place], [address] BUN/CRE 11.9 RATIO Normal 10-20 [facility] Comment on above: Performed By: #### L 500.2500 #### [facility] [address] [place], [address] CA,Total 9.5 mg/dL Normal 8.5-10.1 [facility] Comment on above: Performed By: #### L 500.2500 #### [facility] [address] [place], [address] Chloride [Moles/Vol] 108 mmol/L High 98-107 [facility] Comment on above: Performed By: #### L 500.2500 #### [facility] [address] [place], [address] CO2 [Moles/Vol] 27.0 mmol/L Normal 21.0-32.0 [facility] Comment on above: Performed By: #### L 500.2500 #### [facility] [address] [place], [address] Creatinine [Mass/Vol] 0.67 mg/dL Normal 0.55-1.02 [facility] Comment on above: Result Comment: The validity of the calculated GFR GFRAA in patients over 70 years has not been determined. Clinical correlation is essential. Performed By: #### L 500.2500 #### [facility] [address] [place], [address] ECRCL 116.56 ml/min Normal [facility] Comment on above: Performed By: #### L 500.2500 #### [facility] [address] [place], [address] EST GFR - AA 141 mL/min Normal >60 [facility] Comment on above: Result Comment: Afri can [place]rit[place] GFR Calc Performed By: #### L 500.2500 #### [facility] [address] [place], [address] GAP 5 Normal 5-15 [facility] Comment on above: Performed By: #### L 500.2500 #### [facility] [address] [place], [address] GFR/1.73 sq M.predicted among non-blacks MDRD (S/P/Bld) [Vol rate/Area] 117 mL/min/{1.73_m2} Normal >60 [facility] Comment on above: Result Comment: Non- GFR Calc Performed By: #### L 500.2500 #### [facility] [address] [place], [address] Globulin (S) [Mass/Vol] 3.0 g/dL Normal 2.2-4.2 [facility] Comment on above: Performed By: #### L 500.2500 #### [facility] [address] [place], [address] Glucose [Mass/Vol] 90 mg/dL Normal 74-106 [facility] Comment on above: Performed By: #### L 500.2500 #### [facility] [address] [place], [address] Potassium [Moles/Vol] 3.8 mmol/L Normal 3.5-5.1 [facility] Comment on above: Performed By: #### L 500.2500 #### [facility] [address] [place], [address] Sodium [Moles/Vol] 140 mmol/L Normal 136-145 [facility] Comment on above: Performed By: #### L 500.2500 #### [facility] [address] [place], [address] T PROT 7.0 g/dL Normal 6.4-8.2 [facility] Comment on above: Performed By: #### L 500.2500 #### [facility] [address] [place], [address] Urea nitrogen [Mass/Vol] 8 mg/dL Normal 7-18 [facility] Comment on above: Performed By: #### L 500.2500 #### [facility] [address] [place], [address] Emergency Department Summary on 01-21-2024 Emergency Department Summary [facility] Medical Records Department [address] [place] [address] Emergency Department Summary 01/21/24 MR#: [id number] Acct: [id number] Name: DORY ANDREWS GREG Rep #: [id number] : 2000 23 From: Jacy CALLOWAY PCP: Dr. Wu Herrera MD Status:DEP ER Location: ED HPI HPI - GI History of Present Illness Chief Complaint: Abd Pain Narrative Narrative: 23-year-old females had 1 week of decreased appetite and postprandial right upper quadrant pain. She saw her primary care doctor a few days ago and had blood work. Over the last 2 days she has only been sipping fluids. She tried to have a boost shake yesterday and vomited once so she has not tried any food since then. She was sent here to be evaluated for gallbladder issues. She states anytime she ate earlier this week she had yellow diarrhea. No black or bloody stools. No urinary symptoms. No history of abdominal surgeries. She smokes 1/2 PPD, no alcohol use, no NSAIDs. [facility] Medical History Former smoker depression History of anorexia nervosa Vitamin B12 deficiency Abdominal bloating Constipation History of marijuana use Generalized anxiety disorder Bipolar 1 disorder, depressed, moderate PTSD (post-traumatic stress disorder) Tobacco abuse Osteopenia GERD (gastroesophageal reflux disease) Asthma Migraines ( 12/08/23) Alcohol withdrawal Desire for detoxification History of cocaine use Alcohol use disorder Home Medications ???Medication ???Instructions ???Recorded ???Last Taken ???Type acetaminophen 500 mg tablet 1,000 mg PO Q6H back pain 01/10/24 Unknown History cyclobenzaprine 10 mg tablet 10 mg PO TID back spasms 01/10/24 Unknown History ibuprofen 600 mg tablet 600 mg PO Q6H back pain 01/10/24 Unknown History omeprazole 20 mg capsule,delayed 20 mg PO DAILY #30 CAPSULES 01/21/24 Unknown Rx release ondansetron 4 mg disintegrating 4 mg PO Q8H PRN PRN Nausea #12 tabs 01/21/24 Unknown Rx tablet Allergy/AdvReac Type Severity Reaction Status Date / Time No Known Allergies Allergy Verified 01/21/24 13:10 Family History Other Alcoholism Anxiety Arthritis Asthma COPD (chronic obstructive pulmonary disease) Depression High cholesterol Schizophrenia Surgical History History of surgery Social History Smoking Status: Current every day smoker tobacco type: cigarettes and e-cigarettes alcohol intake: former details: 5 months sober substance use type: does not use ROS ROS ED ROS Narrative Constitutional: Negative for fever, chills, malaise. CVS: Negative for chest pain. Respiratory: Negative for shortness of breath. GI: Positive for abdominal pain, nausea, vomiting, diarrhea. : Negative for dysuria. EXAM Physical Exam Narrative Exam Narrative: CONST: Patient crying and appears uncomfortable lying in bed. EYES: Normal inspection. NECK: Normal inspection. RESP: No respiratory distress, CTAB. CVS: Regular rate and rhythm, no murmur, no gallop. ABD: Soft with RUQ tenderness and positive Gaspar sign, no guarding or rebound, nondistended, no hepatosplenomegaly. SKIN: Color normal, no rash, warm, dry, intact. EXTREMITIES: Normal appearance, no pedal edema. NEURO: Alert and answering questions appropriately. PSYCH: Normal affect. Const Vital Signs: 01/21/24 13:10 01/21/24 15:00 01/21/24 16:00 Temperature 96.4 F L 97.2 F L Temperature Source Temporal Oral Pulse Rate 110 H 86 75 Respiratory Rate 16 16 16 Blood Pressure 122/90 H 103/66 108/72 Blood Pressure Mean 100 78 84 Pulse Ox 95 100 97 Oxygen Delivery Method Room Air Room Air Room Air Physical Exam Const Vital Signs: 01/21/24 13:10 01/21/24 15:00 01/21/24 16:00 Temperature 96.4 F L 97.2 F L Temperature Source Temporal Oral Pulse Rate 110 H 86 75 Respiratory Rate 16 16 16 Blood Pressure 122/90 H 103/66 108/72 Blood Pressure Mean 100 78 84 Pulse Ox 95 100 97 Oxygen Delivery Method Room Air Room Air Room Air MDM MDM MDM Narrative Medical decision making narrative: Differential: Biliary colic, cholecystitis, pancreatitis, GERD among others Patient has RUQ abdominal pain and nausea and vomiting. She appears well and nontoxic. She was tachycardic at 110 bpm with otherwise stable vital signs. She has RUQ tenderness with a positive Gaspar sign. No peritoneal signs. CBC, CMP, lipase are all within normal limits. test is negative. Gallbladder ultrasound shows no abnormalities. This still could be biliary colic however GERD/PUD is al (more content not included)... Normal [facility] Gallbladderon 01-21-2024 Gallbladder [facility] [address] [place] [address] Gallbladder MR#: [id number] Acct: [id number] Name: DORY ANDREWS Rep #: [id number] : 2000 F 23 From: Jr guidry MD PCP: Dr. Wu Herrera MD Status: REG ER Study: Gallbladder Date of Exam: 01/21/24 Exam# [id number] Ordering Dr: Jacy Willis [id number] STUDY: ABDOMINAL ULTRASOUND - RIGHT UPPER QUADRANT REASON FOR VISIT: Female, 23 years old ruq pain TECHNIQUE: Ultrasound evaluation of the right upper quadrant was performed with real-time and static sadler-scale imaging. TECHNICAL QUALITY: Adequate. COMPARISON: None. FINDINGS: Liver: The liver measures 15.4 cm. There is normal echogenicity of the liver. The bile ducts are within normal limits. There is hepatic color flow. The direction of portal flow is hepatopetal. There is no demonstrated mass lesion. Gallbladder: Normal distended gallbladder. The gallbladder wall measures 1 mm. There is a negative sonographic Gaspar''s sign. There is no pericholecystic fluid. There are no gallstones. Common Bile Duct (C.B.D.): The common bile duct measures 3 mm. Pancreas: Normal size of the head, body and tail of the pancreas. There is normal echogenicity of the pancreas. There is no demonstrated pancreatic mass or cyst. Right Kidney: Normal size of the right kidney. The right kidney measures 10.1 cm x 4.7 cm x 5.1 cm. Normal renal cortex. The right cortex measures 1.8 cm. There is no demonstrated renal mass or cyst. There is no right hydronephrosis. US/Gallbladder IMPRESSION: Normal right upper quadrant ultrasound examination. Electronically Signed: Jr Shaver MD at 15:09 EDT , CC: Dr. Wu Herrera MD; BRODIE Anderson Clinical Law Professor: Signed Normal [facility] Lipaseon 01-21-2024 Lipase [Catalytic activity/Vol] 25 U/L Normal 13-75 [facility] Comment on above: Result Comment: Marj langford note: LIPASE revised reference range effective 22. New Lipase methodology. Expected to produce lower values than the previous assay method. NEW Reference Range: 13 - 75 U/L Performed By: #### L 500.2500 #### [facility] [address] [place], [address] ,Serum,hCG Quali.on 01-21-2024 HCG, SERUM QUAL Negative Normal [facility] Comment on above: Performed By: #### L 400.0001, L400.7600 #### [facility] [address] [place], [address] Urinalysis, Completeon 01-20 BACTERIA 2+ /hpf Normal None Seen [facility] Comment on above: Order Comment: CLEAN CATCH Performed By: #### L 400.0001 ####[facility] [address] [place], [address] EPI,SQUAMOUS 10-25 SEEN Normal 5-10 [facility] Comment on above: Order Comment: CLEAN CATCH Performed By: #### L 400.0001 ####[facility] [address] [place], [address] Mucus Ql (Urine sed) 2+ /hpf Normal [facility] Comment on above: Order Comment: CLEAN CATCH Performed By: #### L 400.0001 ####[facility] [address] [place], [address] WBC 5-10 SEEN Normal 0-5 [facility] Comment on above: Order Comment: CLEAN CATCH Performed By: #### L 400.0001 ####[facility] [address] [place], [address] RBC 0 SEEN Normal 0-5 [facility] Comment on above: Order Comment: CLEAN CATCH Performed By: #### L 400.0001 ####[facility] [address] [place], [address] CNOVon 01-19-[address] [facility] CNPNon 01-19-[address] [facility] ACTIVATED PARTIAL THROMBOPLA STIN TIMEOrdered By: Herminio Walker on 01-18-2024 aPTT Coag (PPP) [Time] 29.6 s [facility] Comment on above: Frozen Plasma Aliquo t PUMA BY IFA SCREENon 01-18-20 24 Nuclear Ab pattern (S) [Interp] Nuclear homogeneous Normal [facility] Comment on above: Order Comment: Speci men Type: BLOOD SPECIMENOrdering Facility: [facility] Address: [address] [place] [address] Performed By: #### A NAIFS ####[facility] LABIA [id number] [place] [address] [place] Nuclear Ab Ql (S) Positive Abnormal Negative [facility] Comment on above: Order Comment: Speci men Type: BLOOD SPECIMENOrdering Facility: [facility] Address: [address] [place] [address] Result Comment: Anti -nuclear antibody test is used as an aid in diagnosis of systemic autoimmune diseases. Where positive and clinically warranted, follow-up using disease-specific testing is recommended. Low positive titers are not uncommon with advanced age, certain chronic infections, and malignancies among others.Test methodology: Indirect fluorescence immunoassay (IFA) using HEp-2 cells.1:160 Performed By: #### A NAIFS ####[facility] LABCLIA [id number] [place] [address] [place] Amylase SerPl-cCncon 024 Amylase [Catalytic activity/Vol] 37 U/L Normal 30-104 [facility] Comment on above: Order Comment: Speci men Type: BLOOD SPECIMENOrdering Facility: [facility] Address: [address] [place] [address] Performed By: #### 1 798-8, 15302-0, 3040-3, 1987-11 ####[facility] LABCLIA [id number] [facility] [address] [address] [place] CBC W Auto Differential pane l (Bld)on 01-18-2024 Basophils (Bld) [#/Vol] 0.04 10*3/uL [facility] Basophils/100 WBC (Bld) 0.6 % [facility] Differential cell count method Nom (Bld) Auto [facility] Eosinophils (Bld) [#/Vol] 0.13 10*3/uL [facility] Eosinophils/100 WBC (Bld) 1.8 % [facility] Erythrocyte distribution width (RBC) [Ratio] 12.4 % 11.5 - 15.0 % [facility] Hematocrit (Bld) [Volume fraction] 46.5 % High 36.0 - 46.0 % [facility] Hemoglobin (Bld) [Mass/Vol] 15.2 g/dL 11.5 - 15.5 g/dL [facility] Immature granulocytes (Bld) [#/Vol] [facility] Immature granulocytes/100 WBC (Bld) 0.1 % [facility] Interpretation and review of laboratory results Abnormal [facility] Lymphocytes (Bld) [#/Vol] 2.19 10*3/uL [facility] Lymphocytes/100 WBC (Bld) 30.4 % [facility] MCH (RBC) [Entitic mass] 32.2 pg 26.0 - 34.0 pg [facility] MCHC (RBC) [Mass/Vol] 32.7 g/dL 30.5 - 36.0 g/dL [facility] MCV (RBC) [Entitic vol] 98.5 fL 80.0 - 100.0 fL [facility] Monocytes (Bld) [#/Vol] 0.55 10*3/uL [facility] Monocytes/100 WBC (Bld) 7.6 % [facility] Neutrophils (Bld) [#/Vol] 4.28 10*3/uL [facility] Neutrophils/100 WBC (Bld) 59.5 % [facility] Nucleated RBC (Bld) [#/Vol] NINF [facility] Nucleated RBC/100 WBC (Bld) [Ratio] 0.0 % /100 WBC [facility] Platelet mean volume (Bld) [Entitic vol] 10.9 fL 9.0 - 12.7 fL [facility] Platelets (Bld) [#/Vol] 248 10*3/uL [facility] RBC (Bld) [#/Vol] 4.72 10*6/uL 3.90 - 5.2 0 m/uL [facility] WBC (Bld) [#/Vol] 7.20 10*3/uL [facility] Basophils (Bld) [#/Vol] 0.04 10*3/uL Normal <0.11 [facility] Comment on above: Order Comment: Speci men Type: BLOOD SPECIMENOrdering Facility: [facility] Address: [address] [place] [address] Performed By: #### 4 537-7, 51328-4 ####[facility] LABCLIA [id number] [place] [address] [place] Basophils/100 WBC (Bld) 0.6 % Normal [facility] Comment on above: Order Comment: Speci men Type: BLOOD SPECIMENOrdering Facility: [facility] Address: [address] [place] [address] Performed By: #### 4 537-7, 52781-5 ####[facility] LABCLIA [id number] [place] [address] [place] Differential cell count method Nom (Bld) Auto Normal [facility] Comment on above: Order Comment: Speci men Type: BLOOD SPECIMENOrdering Facility: [facility] Address: [address] [place] [address] Performed By: #### 4 537-7, 74158-7 ####[facility] LABCLIA [id number] [id number], [place] [address] [place] Eosinophils (Bld) [#/Vol] 0.13 10*3/uL Normal <0.46 [facility] Comment on above: Order Comment: Speci men Type: BLOOD SPECIMENOrdering Facility: [facility] Address: [address] [place] [address] Performed By: #### 4 537-7, 68202-4 ####[facility] LABCLIA [id number] [place] [address] [place] Eosinophils/100 WBC (Bld) 1.8 % Normal [facility] Comment on above: Order Comment: Speci men Type: BLOOD SPECIMENOrdering Facility: [facility] Address: [address] [place] [address] Performed By: #### 4 537-7, 30046-4 ####[facility] LABCLIA [id number] [place] [address] [place] Erythrocyte distribution width (RBC) [Ratio] 12.4 % Normal 11.5-15.0 [facility] Comment on above: Order Comment: Speci men Type: BLOOD SPECIMENOrdering Facility: [facility] Address: [address] [place] [address] Performed By: #### 4 537-7, 32123-0 ####[facility] LABIA [id number] [place] [address] [place] Hematocrit (Bld) [Volume fraction] 46.5 % High 36.0-46.0 [facility] Comment on above: Order Comment: Speci men Type: BLOOD SPECIMENOrdering Facility: [facility] Address: [address] [place] [address] Performed By: #### 4 537-7, 27790-4 ####[facility] LABCLIA [id number] [place] [address] [place] Hemoglobin (Bld) [Mass/Vol] 15.2 g/dL Normal 11.5-15.5 [facility] Comment on above: Order Comment: Speci men Type: BLOOD SPECIMENOrdering Facility: [facility] Address: [address] [place] [address] Performed By: #### 4 537-7, 36344-6 ####[facility] LABCLIA [id number] [place] [address] [place] Immature granulocytes (Bld) [#/Vol] 10*3/uL Normal <0.10 [facility] Comment on above: Order Comment: Speci men Type: BLOOD SPECIMENOrdering Facility: [facility] Address: [address] [place] [address] Performed By: #### 4 537-7, 03522-4 ####[facility] LABCLIA [id number] [place] [address] [place] Immature granulocytes/100 WBC (Bld) 0.1 % Normal [facility] Comment on above: Order Comment: Speci men Type: BLOOD SPECIMENOrdering Facility: [facility] Address: [address] [place] [address] Performed By: #### 4 537-7, 43056-8 ####[facility] LABCLIA [id number] [place] [address] [place] Lymphocytes (Bld) [#/Vol] 2.19 10*3/uL Normal 1.00-4.00 [facility] Comment on above: Order Comment: Speci men Type: BLOOD SPECIMENOrdering Facility: [facility] Address: [address] [place] [address] Performed By: #### 4 537-7, 04510-2 ####[facility] LABCLIA [id number] [place] [address] [place] Lymphocytes/100 WBC (Bld) 30.4 % Normal [facility] Comment on above: Order Comment: Speci men Type: BLOOD SPECIMENOrdering Facility: [facility] Address: [address] [place] [address] Performed By: #### 4 537-7, 22506-1 ####[facility] LABIA [id number] [place] [address] [place] MCH (RBC) [Entitic mass] 32.2 pg Normal 26.0-34.0 [facility] Comment on above: Order Comment: Speci men Type: BLOOD SPECIMENOrdering Facility: [facility] Address: [address] [place] [address] Performed By: #### 4 537-7, 81886-3 ####[facility] [id number] [place] [address] [place] MCHC (RBC) [Mass/Vol] 32.7 g/dL Normal 30.5-36.0 [facility] Comment on above: Order Comment: Speci men Type: BLOOD SPECIMENOrdering Facility: [facility] Address: [address] [place] [address] Performed By: #### 4 537-7, 57686-6 ####[facility] [id number] [place] [address] [place] MCV (RBC) [Entitic vol] 98.5 fL Normal 80.0-100.0 [facility] Comment on above: Order Comment: Speci men Type: BLOOD SPECIMENOrdering Facility: [facility] Address: [address] [place] [address] Performed By: #### 4 537-7, 77664-7 ####[facility] [id number] [place] [id number] [place] Monocytes (Bld) [#/Vol] 0.55 10*3/uL Normal <0.87 [facility] Comment on above: Order Comment: Speci men Type: BLOOD SPECIMENOrdering Facility: [facility] Address: [address] [place] [address] Performed By: #### 4 537-7, 31613-6 ####[facility] LABCLIA [id number] [address] [address] [place] Monocytes/100 WBC (Bld) 7.6 % Normal [facility] Comment on above: Order Comment: Speci men Type: BLOOD SPECIMENOrdering Facility: [facility] Address: [address] [place] [address] Performed By: #### 4 537-7, 36308-0 ####[facility] LABCLIA [id number] [place] [address] [place] Neutrophils (Bld) [#/Vol] 4.28 10*3/uL Normal 1.45-7.50 [facility] Comment on above: Order Comment: Speci men Type: BLOOD SPECIMENOrdering Facility: [facility] Address: [address] [place] [address] Performed By: #### 4 537-7, 53050-9 ####[facility] LABCLIA [id number] [place] [address] [place] Neutrophils/100 WBC (Bld) 59.5 % Normal [facility] Comment on above: Order Comment: Speci men Type: BLOOD SPECIMENOrdering Facility: [facility] Address: [address] [place] [address] Performed By: #### 4 537-7, 22378-7 ####[facility] LABCLIA [id number] [place] [address] [place] Nucleated RBC (Bld) [#/Vol] 10*3/uL Normal <0.01 [facility] Comment on above: Order Comment: Speci men Type: BLOOD SPECIMENOrdering Facility: [facility] Address: [address] [place] [address] Performed By: #### 4 537-7, 72091-5 ####[facility] LABCLIA [id number] [place] [address] [place] Nucleated RBC/100 WBC (Bld) [Ratio] 0.0 /[address] [facility] Comment on above: Order Comment: Speci men Type: BLOOD SPECIMENOrdering Facility: [facility] Address: [address] [place] [address] Performed By: #### 4 537-7, 49835-7 ####[facility] LABCLIA [id number] [place] [address] [place] Platelet mean volume (Bld) [Entitic vol] 10.9 fL Normal 9.0-12.7 [facility] Comment on above: Order Comment: Speci men Type: BLOOD SPECIMENOrdering Facility: [facility] Address: [address] [place] [address] Performed By: #### 4 537-7, 06266-4 ####[facility] LABCLIA [id number] [place] [address] [place] Platelets (Bld) [#/Vol] 248 10*3/uL Normal 150-400 [facility] Comment on above: Order Comment: Speci men Type: BLOOD SPECIMENOrdering Facility: [facility] Address: [address] [place] [address] Performed By: #### 4 537-7, 10488-1 ####[facility] LABCLIA [id number] [place] [address] [place] RBC (Bld) [#/Vol] 4.72 10*6/uL Normal 3.90-5.20 [facility] Comment on above: Order Comment: Speci men Type: BLOOD SPECIMENOrdering Facility: [facility] Address: [address] [place] [address] Performed By: #### 4 537-7, 42533-4 ####[facility] LABCLIA [id number] [place] [address] [place] WBC (Bld) [#/Vol] 7.20 10*3/uL Normal 3.70-11.00 [facility] Comment on above: Order Comment: Speci men Type: BLOOD SPECIMENOrdering Facility: [facility] Address: [address] [place] [address] Performed By: #### 4 537-7, 49179-3 ####[facility] LABCLIA [id number] [place] [address] [place] CNOVon 01-18-[address] [facility] CRP SerPl-mCncon 01-18-2024 CRP [Mass/Vol] mg/L Normal <0.9 [facility] Comment on above: Order Comment: Speci men Type: BLOOD SPECIMENOrdering Facility: [facility] Address: [address] [place] [address] Performed By: #### 1 798-8, 37284-2, 3, 1987-11 ####[facility] LABCLIA [id number] [place] [address] [place] Comprehensive metabolic 2000 panelon 01-18-2024 Albumin [Mass/Vol] 5.0 g/dL High 3.9-4.9 [facility] Comment on above: Order Comment: Speci men Type: BLOOD SPECIMENOrdering Facility: [facility] Address: [address] [place] [address] Performed By: #### 1 798-8, 94401-2, 3039-09, 1987-11 ####[facility] LABCLIA [id number] [place] [address] [place] ALP [Catalytic activity/Vol] 125 U/L High 34-123 [facility] Comment on above: Order Comment: Speci men Type: BLOOD SPECIMENOrdering Facility: [facility] Address: [address] [place] [address] Performed By: #### 1 798-8, 63954-5, 3039-3, 1987-11 ####[facility] LABCLIA [id number] [id number] [address] [place] ALT [Catalytic activity/Vol] 28 U/L Normal 7-38 [facility] Comment on above: Order Comment: Speci men Type: BLOOD SPECIMENOrdering Facility: [facility] Address: [address] [place] [address] Performed By: #### 1 798-8, 22788-1, 3039-09, 1987-11 ####[facility] LABCLIA [id number] [place] [address] [place] Anion gap [Moles/Vol] 18 mmol/L High 8-15 [facility] Comment on above: Order Comment: Speci men Type: BLOOD SPECIMENOrdering Facility: [facility] Address: [address] [place] [address] Performed By: #### 1 798-8, 05448-4, 3039-09, 1987-11 ####[facility] LABCLIA [id number] [place] [address] [place] AST [Catalytic activity/Vol] 32 U/L Normal 13-35 [facility] Comment on above: Order Comment: Speci men Type: BLOOD SPECIMENOrdering Facility: [facility] Address: [address] [place] [address] Performed By: #### 1 798-8, 30135-0, 3039-09, 1987-11 ####[facility] LABIA [id number] [place] [address] [place] Bilirubin [Mass/Vol] 0.4 mg/dL Normal 0.2-1.3 [facility] Comment on above: Order Comment: Speci men Type: BLOOD SPECIMENOrdering Facility: [facility] Address: [address] [place] [address] Performed By: #### 1 798-8, 17484-6, 3039-09, 1987-11 ####[facility] LABCLIA [id number] [place] [id number] [place] Calcium [Mass/Vol] 10.3 mg/dL High 8.5-10.2 [facility] Comment on above: Order Comment: Speci men Type: BLOOD SPECIMENOrdering Facility: [facility] Address: [address] [place] [address] Performed By: #### 1 798-8, 76722-7, 3039-09, 1987-11 ####[facility] LABCLIA [id number] [place] [address] [place] Chloride [Moles/Vol] 103 mmol/L Normal 98-107 [facility] Comment on above: Order Comment: Speci men Type: BLOOD SPECIMENOrdering Facility: [facility] Address: [address] [place] [address] Performed By: #### 1 798-8, 77460-0, 3039-09, 1987-11 ####[facility] LABCLIA [id number] [place] [address] [place] CO2 [Moles/Vol] 20 mmol/L Low 22-30 [facility] Comment on above: Order Comment: Speci men Type: BLOOD SPECIMENOrdering Facility: [facility] Address: [address] [place] [address] Performed By: #### 1 798-8, 09668-5, 3039-09, 1987-11 ####[facility] LABCLIA [id number] [place] [address] [place] Creatinine [Mass/Vol] 0.70 mg/dL Normal 0.58-0.96 [facility] Comment on above: Order Comment: Speci men Type: BLOOD SPECIMENOrdering Facility: [facility] Address: [address] [place] [address] Performed By: #### 1 798-8, 88318-1, 3039-09, 1987-11 ####[facility] LABCLIA [id number] [place] [id number] [place] Creatinine and Glomerular filtration rate.predicted panel (S/P/Bld) 126 mL/min/1.73m??? Normal >=60 [facility] Comment on above: Order Comment: Nabeel montero Type: BLOOD SPECIMENOrdering Facility: [facility] Address: [address] [place] [address] Result Comment: Dylan mated Glomerular Filtration Rate (eGFR) is calculated using the 2020 CKD-EPI creatinine equation. This equation utilizes serum creatinine, sex, and age as parameters. The creatinine assay has traceable calibration to isotope dilution-mass spectrometry. Refer to KDIGO guidelines for clinical interpretation. In patients with unstable renal function, e.g. those with acute kidney injury, the eGFR may not accurately reflect actual GFR. Performed By: #### 1 798-8, 30417-7, 3039-09, 1987-11 ####[facility] LABCLIA [id number] [place] [address] [place] Glucose [Mass/Vol] 80 mg/dL Normal 74-99 [facility] Comment on above: Order Comment: Nabeel montero Type: BLOOD SPECIMENOrdering Facility: [facility] Address: [address] [place] [address] Result Comment: The [place] [employer] (ADA) provides guidance for cutoff values for fasting glucose and random glucose. The ADA defines fasting as no caloric intake for at least 8 hours. Fasting plasma glucose results between 100 to 125 mg/dL indicate increased risk for diabetes (prediabetes).Fasting plasma glucose results greater than or equal to 126 mg/dL meet the criteria for diagnosis of diabetes. In the absence of unequivocal hyperglycemia, results should be confirmed by repeat testing. In a patient with classic symptoms of hyperglycemia or hyperglycemic crisis, random plasma glucose results greater than or equal to 200 mg/dL meet the criteria for diagnosis of diabetes.Reference: Standards of Medical Care in Diabetes 2016, [place] [employer]. Diabetes Care. 2016.39(Suppl 1). Performed By: #### 1 798-8, 94366-2, 3039-09, 1987-11 ####[facility] LABCLIA [id number] [place] [id number] [place] Potassium [Moles/Vol] 4.5 mmol/L Normal 3.7-5.1 [facility] Comment on above: Order Comment: Speci men Type: BLOOD SPECIMENOrdering Facility: [facility] Address: [address] [place], [place] [address] Performed By: #### 1 798-8, 41784-0, 3039-09, 1987-11 ####[facility] LABCLIA [id number] [place] [id number] [place] Protein [Mass/Vol] 7.6 g/dL Normal 6.3-8.0 [facility] Comment on above: Order Comment: Speci men Type: BLOOD SPECIMENOrdering Facility: [facility] Address: [address] [place] [address] Performed By: #### 1 798-8, 44141-0, 3039-09, 1987-11 ####[facility] LABCLIA [id number] [place] [id number] [place] Sodium [Moles/Vol] 141 mmol/L Normal 136-144 [facility] Comment on above: Order Comment: Speci men Type: BLOOD SPECIMENOrdering Facility: [facility] Address: [address] [place] [address] Performed By: #### 1 798-8, 50400-2, 3039-09, 1987-11 ####[facility] LABCLIA [id number] [place] [id number] [place] Urea nitrogen [Mass/Vol] 9 mg/dL Normal 7-21 [facility] Comment on above: Order Comment: Speci men Type: BLOOD SPECIMENOrdering Facility: [facility] Address: [address] [place] [address] Performed By: #### 1 798-8, 28628-3, 3039-09, 1987-11 ####[facility] LABCLIA [id number] [address] [address] [place] ESR Westergren method (Bld) [Velocity]on 01-18-2024 ESR (Bld) [Velocity] 5 mm/h Normal 0-20 [facility] Comment on above: Order Comment: Speci men Type: BLOOD SPECIMENOrdering Facility: [facility] Address: [address] [place] [address] Performed By: #### 4 537-7, 44912-9 ####[facility] LABCLIA [id number] [place] [address] [place] Lipase SerPl-cCncon 01-18-20 24 Lipase [Catalytic activity/Vol] 25 U/L Normal 16-61 [facility] Comment on above: Order Comment: Speci men Type: BLOOD SPECIMENOrdering Facility: [facility] Address: [address] [place] [address] Performed By: #### 1 798-8, 02201-4, 3040-3, 1988- ####[facility] LABCLIA [id number] [address] [place] No Panel InformationOrdered By: Herminio Walker on 01-18-2024 Interpretation and review of laboratory results Normal [facility] PT panel Coag (PPP)on 2023 INR Coag (PPP) [Relative time] 1.1 {INR} 0.9 - 1.3 [facility] Comment on above: Vitamin K Antagonist (VKA) Therapeutic Range: INR 2 to 3 (Target INR of 2.5) Note: For patients treated with VKA drugs, such as warfarin, the [place] [employer] 2012 Guideline recommends a therapeutic INR range of 2 to 3 (target INR of 2.5). This recommendation includes high-risk patients with antiphospholipid syndrome with previous arterial or venous thromboembolism, current-generation mechanical or bioprosthetic aortic heart valve replacement. Note: Patients with mechanical aortic valve replacement and additional risk factors for thromboembolic events (atrial fibrillation, previous thromboembolism, LV dysfunction, hypercoagulable conditions) or an older generation mechanical AVR (i.e., ball in-Cage) or any mechanical MVR should have a INR therapeutic range of 2.5 to 3.5 (target INR of 3). Maria M HA, et al. Chest 2012, 141:7S-47S Casper MEREDITH, et al. [facility] 2017, 70: 252-289 PT Coag (PPP) [Time] 11.3 s [facility] INR Coag (PPP) [Relative time] 1.1 {INR} Normal 0.9-1.3 [facility] Comment on above: Order Comment: Speci men Type: BLOOD SPECIMENOrdering Facility: [facility] Address: [address] [place] [address] Result Comment: Angelica min K Antagonist (VKA) Therapeutic Range: INR 2 to 3 (Target INR of 2.5)Note: For patients treated with VKA drugs, such as warfarin, the [place] [employer] 2012 Guideline recommends a therapeutic INR range of 2 to 3 (target INR of 2.5). This recommendation includes high-risk patients with antiphospholipid syndrome with previous arterial or venous thromboembolism, current-generation mechanical or bioprosthetic aortic heart valve replacement.Note: Patients with mechanical aortic valve replacement and additional risk factors for thromboembolic events (atrial fibrillation, previous thromboembolism, LV dysfunction, hypercoagulable conditions) or an older generation mechanical AVR (i.e., ball in-Cage) or any mechanical MVR should have a INR therapeutic range of 2.5 to 3.5 (target INR of 3).Maria M HA, et al. Chest 2012, 141:7S-47SCasper MEREDITH, et al. [facility] 2017, 70: 252-289 Performed By: #### 1 4979-9, 93564-1 ####[facility] LABCLIA [id number] [place] [address] [place] PT Coag (PPP) [Time] 11.3 s Normal 9.7-13.0 [facility] Comment on above: Order Comment: Rishii men Type: BLOOD SPECIMENOrdering Facility: [facility] Address: [address] [place] [address] Performed By: #### 1 4979-9, 20734-8 ####[facility] LABCLIA [id number] [place] [address] [place] Rheumatoid fact SerPl-aCncon 01-18-2024 Rheumatoid factor Qn [IU]/mL Normal <16 [facility] Comment on above: Order Comment: Speci men Type: BLOOD SPECIMENOrdering Facility: [facility] Address: [address] [place] [address] Performed By: #### 1 1572-5 ####[facility] LABIA [id number] [place] [address] [place] aPTT Coag (PPP) [Time]Ordere d By: Herminio Walker on 01-18-2024 Unfractionated Hepar in Therapeutic Ranges: Standard Heparin Nomogram: 53 to 78 seconds (anti-Xa level of 0.3 to 0.7 U/ml) Low Dose/ACS Nomogram: 49 to 67 seconds (anti-Xa level of 0.2 to 0.5 U/ml) Stroke Treatment Nomogram: 49 to 67 seconds (anti-Xa level of 0.2 to 0.5 U/ml) Note: The APTT therapeutic range has been determined for the current lot of laboratory APTT reagent in use throughout the [facility]. [facility] aPTT PPPon 01-18-2024 aPTT Coag (PPP) [Time] 29.6 s Normal 23.0-32.4 [facility] Comment on above: Order Comment: Nabeel montero Type: BLOOD SPECIMENOrdering Facility: [facility] Address: [address] [place] [address] Result Comment: Jennifer en Plasma Aliquot Performed By: #### 1 4979-9, 83977-8 ####[facility] LABIA [id number] [place] [address] [place] Alcohol, Blood (Medical)-Ser umon 01-10-2024 SERUM ETOH < 3.0 Normal [facility] Comment on above: Result Comment: The serum:whole blood ethanol ratio is approximately 1.14 and varies slightly with hematocrit. Medical Alcohol reference interval and critical value in non-tolerant individuals; 50 - 100 Impairment 100 Intoxication 100 - 250 Severe Poisoning 250 - 400 Deep/possible fatal coma Performed By: #### L 400.0001, L400.7600 #### [facility] [address] [place], [address] Basic Metabolic Profile (BMP )on 01-10-2024 BUN/CRE 12.0 RATIO Normal 10-20 [facility] Comment on above: Performed By: #### L 400.0001, L400.7600 #### [facility] [address] [place], [address] CA,Total 9.6 mg/dL Normal 8.5-10.1 [facility] Comment on above: Performed By: #### L 400.0001, L400.7600 #### [facility] [address] [place], [address] Chloride [Moles/Vol] 109 mmol/L High 98-107 [facility] Comment on above: Performed By: #### L 400.0001, L400.7600 #### [facility] [address] [place], [address] CO2 [Moles/Vol] 27.0 mmol/L Normal 21.0-32.0 [facility] Comment on above: Performed By: #### L 400.0001, L400.7600 #### [facility] [address] [place], [address] Creatinine [Mass/Vol] 0.75 mg/dL Normal 0.55-1.02 [facility] Comment on above: Result Comment: The validity of the calculated GFR GFRAA in patients over 70 years has not been determined. Clinical correlation is essential. Performed By: #### L 400.0001, L400.7600 #### [facility] [address] [place], [address] ECRCL 106.06 ml/min Normal [facility] Comment on above: Performed By: #### L 400.0001, L400.7600 #### [facility] [address] [place], [address] EST GFR - AA 124 mL/min Normal >60 [facility] Comment on above: Result Comment: Afri can [place] GFR Calc Performed By: #### L 400.0001, L400.7600 #### [facility] [address] [place], [address] GAP 6 Normal 5-15 [facility] Comment on above: Performed By: #### L 400.0001, L400.7600 #### [facility] [address] [place], [address] GFR/1.73 sq M.predicted among non-blacks MDRD (S/P/Bld) [Vol rate/Area] 103 mL/min/{1.73_m2} Normal >60 [facility] Comment on above: Result Comment: Non- GFR Calc Performed By: #### L 400.0001, L400.7600 #### [facility] [address] [place], [address] Glucose [Mass/Vol] 93 mg/dL Normal 74-106 [facility] Comment on above: Performed By: #### L 400.0001, L400.7600 #### [facility] [address] [place], [address] Potassium [Moles/Vol] 3.6 mmol/L Normal 3.5-5.1 [facility] Comment on above: Performed By: #### L 400.0001, L400.7600 #### [facility] [address] [place], [address] Sodium [Moles/Vol] 142 mmol/L Normal 136-145 [facility] Comment on above: Performed By: #### L 400.0001, L400.7600 #### [facility] [address] [place], [address] Urea nitrogen [Mass/Vol] 9 mg/dL Normal 7-18 [facility] Comment on above: Performed By: #### L 400.0001, L400.7600 #### [facility] [address] [place], [address] Brain/Head without Contrasto n 01-10-2024 Brain/Head without Contrast [facility] Services [address] [place] [address] Brain/Head without Contrast MR#: [id number] Acct: [id number] Name: DORY ANDREWS Rep #: [id number] : 2000 F 23 From: Tank Philip MD PCP: Dr. Wu Herrera MD Status: REG ER Study: Brain/Head without Contrast Date of Exam: 12/13 Exam# [id number] Ordering Dr: Vincent Peterson MD [id number] INDICATION: AMS EXAMINATION: CT BRAIN - CT Head or Brain W/O Contrast Injection TECHNIQUE: Serial CT axial images were obtained of the head without intravenous contrast. A radiation dose optimization technique was used for this scan. COMPARISON: 07/25/[address] Findings: Serial CT axial images of the head without contrast. BRAIN PARENCHYMA: Normal sadler-white matter differentiation. No evidence of intraparenchymal hemorrhage or hyperattenuating extra-axial fluid collection. BONES: Paranasal sinuses are clear. SCALP/REMAINING SOFT TISSUES: Unremarkable. ASPECTS Score for Acute Strokes, if applicable: 10 CT/Brain/Head without Contrast IMPRESSION: No acute intracranial hemorrhage in this noncontrast head CT. Electronically Signed: Tank Philip MD at 1:56 EDT , CC: Dr. Vincent Peterson MD; Dr. Wu Herrera MD Clinical Law Professor: Signed Normal [facility] CBC W/Diff, Automatedon 12-13 Absolute Lymph 2.20 X10 3/uL Normal 0.83-4.51 [facility] Comment on above: Performed By: #### L 400.0001, L400.7600 #### [facility] [address] [place], [address] Absolute Neut 2.6 X10 3/uL Normal 2.0-7.7 [facility] Comment on above: Performed By: #### L 400.0001, L400.7600 #### [facility] [address] [place], [address] Basophils/100 WBC (Bld) 0.6 % Normal 0-1 [facility] Comment on above: Performed By: #### L 400.0001, L400.7600 #### [facility] [address] [place], [address] Eosinophils/100 WBC (Bld) 2.0 % Normal 0-5 [facility] Comment on above: Performed By: #### L 400.0001, L400.7600 #### [facility] [address] [place], [address] Erythrocyte distribution width (RBC) [Ratio] 12.8 % Normal 11.6-14.6 [facility] Comment on above: Performed By: #### L 400.0001, L400.7600 #### [facility] [address] [place], [address] Hematocrit (Bld) [Volume fraction] 40.8 % Normal 37-47 [facility] Comment on above: Performed By: #### L 400.0001, L400.7600 #### [facility] [address] [place], [address] Hemoglobin (Bld) [Mass/Vol] 13.2 g/dL Normal 12.0-15.0 [facility] Comment on above: Performed By: #### L 400.0001, L400.7600 #### [facility] [address] [place], [address] IG% 0.200 Normal 0.0-0.9 [facility] Comment on above: Result Comment: IG% - Immature Granulocytes (promyelocytes, myelocytes and metamyelocytes) > 1% indicates that a LEFT SHIFT is Present. Performed By: #### L 400.0001, L400.7600 #### [facility] [address] [place], [address] Lymphocytes/100 WBC (Bld) 40.7 % Normal 19-41 [facility] Comment on above: Performed By: #### L 400.0001, L400.7600 #### [facility] [address] [place], [address] MCH (RBC) [Entitic mass] 31.6 pg Normal 27.0-32.0 [facility] Comment on above: Performed By: #### L 400.0001, L400.7600 #### [facility] [address] [place], [address] MCHC (RBC) [Mass/Vol] 32.4 g/dL Normal 32-36 [facility] Comment on above: Performed By: #### L 400.0001, L400.7600 #### [facility] [address] [place], [address] MCV (RBC) [Entitic vol] 97.6 fL Normal 81-99 [facility] Comment on above: Performed By: #### L 400.0001, L400.7600 #### [facility] [address] [place], [address] Monocytes/100 WBC (Bld) 8.1 % Normal 0-10 [facility] Comment on above: Performed By: #### L 400.0001, L400.7600 #### [facility] [address] [place], [address] Neutrophils/100 WBC (Bld) 48.4 % Normal 47-70 [facility] Comment on above: Performed By: #### L 400.0001, L400.7600 #### [facility] [address] [place], [address] Nucleated RBC (Bld) [#/Vol] 0 10*3/uL Normal 0-5 [facility] Comment on above: Performed By: #### L 400.0001, L400.7600 #### [facility] [address] [place], [address] Platelet mean volume (Bld) [Entitic vol] 10.0 fL Normal 6.2-12.0 [facility] Comment on above: Performed By: #### L 400.0001, L400.7600 #### [facility] [address] [place], [address] Platelets (Bld) [#/Vol] 218 10*3/uL Normal 150-450 [facility] Comment on above: Performed By: #### L 400.0001, L400.7600 #### [facility] [address] [place], [address] RBC (Bld) [#/Vol] 4.18 10*6/uL Low 4.2-5.4 [facility] Comment on above: Performed By: #### L 400.0001, L400.7600 #### [facility] [address] [place], [address] RDW SD 46.4 fl High 35.1-43.9 [facility] Comment on above: Performed By: #### L 400.0001, L400.7600 #### [facility] [address] [place], [address] WBC (Bld) [#/Vol] 5.4 10*3/uL Normal 4.4-11.0 [facility] Comment on above: Performed By: #### L 400.0001, L400.7600 #### [facility] [address] [place], [address] Emergency Department Summary on 01-10-2024 Emergency Department Summary [facility] Medical Records Department [address] [place] [address] Emergency Department Summary 01/10/24 MR#: [id number] Acct: [id number] Name: DORY ANDREWS Rep #: [id number] : 2000 23 From: Vincent Peterson MD PCP: Dr. Wu Herrera MD Status:REG ER Location: ED HPI HPI - Psych History of Present Illness Chief Complaint: Mental Health Informant: patient Narrative Narrative: Patient states for the past week she has been having visual hallucinations that have been getting worse. She delivered a baby about a month ago. She has been having feelings of depression without suicidal thoughts and recently diagnosed with depression and started on new medication but she used to be on medications for bipolar that she stopped in July while she was because she felt like she was doing pretty well after she ran out of her medications. She did this under the guidance of her psychiatrist Dr. Pate. In the past week she has been calling his office, nurses have been telling her that if she gets worse she needs to go to the hospital to be evaluated because she may need to be hospitalized for psychiatric reasons. She feels that is the case now. She has been having hallucinations of shadows coming through her windows and maravilla and coming out her. Initially she is very frightened and took her baby into the bathroom and locked herself in there and was screaming. Eventually she became insightful that these were hallucinations and not real. She is very concerned because she is having difficulty discerning now. [facility] Medical History Former smoker depression History of anorexia nervosa Vitamin B12 deficiency Abdominal bloating Constipation History of marijuana use Generalized anxiety disorder Bipolar 1 disorder, depressed, moderate PTSD (post-traumatic stress disorder) Tobacco abuse Osteopenia GERD (gastroesophageal reflux disease) Asthma Migraines ( 12/08/23) Alcohol withdrawal Desire for detoxification History of cocaine use Alcohol use disorder Home Medications ???Medication ???Instructions ???Recorded ???Last Taken ???Type vitamin#30 30 mg iron-10 1 cap PO .every day 05/25/23 11/27/23 06:00 History mg iron-folic acid 1 mg-omg3 capsule propranolol 10 mg tablet 10 mg PO BID PRN PVCs 05/25/23 11/27/23 06:00 History acetaminophen 500 mg tablet 1,000 mg (2 x 500 mg) PO Q6H PRN 12/11/23 Unknown Rx PRN Pain 1-10 Or Fever #30 tabs aspirin 81 mg tablet,delayed 81 mg PO DAILY 12/21/23 Unknown History release sulfamethoxazole 800 1 tab PO BID 5 days #10 tabs 12/22/23 Unknown Rx mg-trimethoprim 160 mg tablet (Bactrim DS) Allergy/AdvReac Type Severity Reaction Status Date / Time No Known Allergies Allergy Verified 12/21/23 23:11 Family History Other Alcoholism Anxiety Arthritis Asthma COPD (chronic obstructive pulmonary disease) Depression High cholesterol Schizophrenia other (Father with schizophrenia) Surgical History History of surgery Social History Smoking Status: Current every day smoker tobacco type: cigarettes and e-cigarettes alcohol intake: former details: 5 months sober substance use type: does not use ROS ROS ED Constitutional Constitutional ED: Denies chills or fever(s) Eyes Eyes: Denies change in vision or diplopia ENT ENT ED: Denies rhinorrhea or sore throat Cardiovascular Cardiovascular: Denies chest pain or palpitations Respiratory/Chest Respiratory/Chest: Denies cough or dyspnea Gastrointestinal Gastrointestinal: Denies abdominal pain, diarrhea, nausea or vomiting Genitourinary Genitourinary ED: Denies dysuria or hematuria Musculoskeletal Musculoskeletal: Denies back pain or neck pain Integumentary Denies abscess or rash Neurologic Neurologic: Denies headache(s), paresthesias or weakness Psychiatric Psychiatric: Reports as per HPI, anxiety, depression and hallucinations; Denies suicidal ideation or suicidal thoughts EXAM Physical Exam Const Vital Signs: 01/10/24 00:32 01/10/24 02:00 Temperature 97.2 F L Temperature Source Temporal Pulse Rate 98 71 Respiratory Rate 16 18 Blood Pressure 128/91 H 129/73 H Blood Pressure Mean 103 91 Pulse Ox 97 98 Oxygen Delivery Method Room Air Room Air Positive well nourished and well developed General Appearance ED: well developed and NAD HEENT Reports moist mucous membranes normocephalic and atraumatic Eyes PERRL and EOMs intact bilaterally Neck full ROM and supple Resp normal respiratory (more content not included)... Normal [facility] ,Serum,hCG Quali.on 01-10-2024 HCG, SERUM QUAL Negative Normal [facility] Comment on above: Performed By: #### L 400.0001, L400.7600 #### [facility] [address] [place], [address] Thyroid Stim Hormone (TSH)on 01-10-2024 TSH 1.74 uIU/mL Normal 0.358-3.74 [facility] Comment on above: Performed By: #### L 400.0001, L400.7600 #### [facility] [address] [place], [facility] Urine Drug Screen (VISTA)on 01-10-2024 AMPHETAMINES Negative Normal <1000 ng/mL [facility] Comment on above: Performed By: #### L 400.0001, L400.7600 #### [facility] [address] [place], [address] BARBITIURATES Negative Normal < 200 ng/mL [facility] Comment on above: Performed By: #### L 400.0001, L400.7600 #### [facility] [address] [place], [address] BENZODIAZIPINE Negative Normal < 200 ng/mL [facility] Comment on above: Performed By: #### L 400.0001, L400.7600 #### [facility] [address] [place], [address] COCAINE Negative Normal < 300 ng/mL [facility] Comment on above: Performed By: #### L 400.0001, L400.7600 #### [facility] [address] [place], [address] ECSTACY Negative Normal < 500 ng/mL [facility] Comment on above: Performed By: #### L 400.0001, L400.7600 #### [facility] [address] [place], [address] METHADONE Negative Normal < 300 ng/mL [facility] Comment on above: Performed By: #### L 400.0001, L400.7600 #### [facility] [address] [place], [address] OPIATES Negative Normal < 300 ng/mL [facility] Comment on above: Performed By: #### L 400.0001, L400.7600 #### [facility] [address] [place], [address] PCP Negative Normal < 25 ng/mL [facility] Comment on above: Performed By: #### L 400.0001, L400.7600 #### [facility] [address] [place], [address] THC Negative Normal < 50 ng/mL [facility] Comment on above: Performed By: #### L 400.0001, L400.7600 #### [facility] [address] [place], [address] VISTA UDS PH 6 Normal [facility] Comment on above: Performed By: #### L 400.0001, L400.7600 #### [facility] [address] [place], [address] CNOVon 01-08-[address] [facility] THYROID STIMULATING HORMONEo n 12-22-2023 TSH Qn 0.472 m[IU]/L [facility] Comment on above: If the patient is pr egnant, TSH reference range varies by gestational period: First Trimester (weeks 9-12): 0.180-2.990 mIU/L Second Trimester: 0.110-3.980 mIU/L Third Trimester: 0.480-4.710 mIU/L Duarte Enrique et al. A Practical Approach for the Verifications and Determination of Site- and Trimester-Specific Reference Intervals for Thyroid Function tests in . Thyroid, 2019:29:3:412-420. Joe Bush, et al. 2017 Guidelines of the [place] Thyroid Association for the Diagnosis and Management of Thyroid Disease during and the . Thyroid, 2017:27:3:315-389. TSH Qnon 12-22-2023 Interpretation and review of laboratory results Normal [facility] CBC panel Auto (Bld)on 12-14 Erythrocyte distribution width (RBC) [Ratio] 14.2 % Normal 11.5-15.0 [facility] Comment on above: Order Comment: Speci men Type: BLOOD SPECIMEN Ordering Facility: [facility] Address: [address] [place] [address] Performed By: #### 5 8410-2 #### [employer] [facility] CLIA [id number] [address] [place] [address] OF [facility] Hematocrit (Bld) [Volume fraction] 38.8 % Normal 36.0-46.0 [facility] Comment on above: Order Comment: Rishii winston Type: BLOOD SPECIMEN Ordering Facility: [facility] Address: [address] [place] [address] Performed By: #### 5 8410-2 #### [facility] CLIA [id number] [address] [place] Hemoglobin (Bld) [Mass/Vol] 12.9 g/dL Normal 11.5-15.5 [facility] Comment on above: Order Comment: Speci men Type: BLOOD SPECIMEN Ordering Facility: [facility] Address: [address] [place] [address] Performed By: #### 5 8410-2 #### [facility] CLIA [id number] [address] [place] MCH (RBC) [Entitic mass] 33.4 pg Normal 26.0-34.0 [facility] Comment on above: Order Comment: Speci men Type: BLOOD SPECIMEN Ordering Facility: [facility] Address: [address] [place] [address] Performed By: #### 5 8410-2 #### [facility] CLIA [id number] [address] MCHC (RBC) [Mass/Vol] 33.2 g/dL Normal 30.5-36.0 [facility] Comment on above: Order Comment: Speci men Type: BLOOD SPECIMEN Ordering [facility]: [facility] Address: [address] [place] [address] Performed By: #### 5 8410-2 #### [facility] CLIA [id number] [address] MCV (RBC) [Entitic vol] 100.5 fL High 80.0-100.0 [facility] Comment on above: Order Comment: Speci men Type: BLOOD SPECIMEN Ordering Facility: [facility] Address: [address] [place] [address] Performed By: #### 5 8410-2 #### [facility] CLIA [id number] [address] Nucleated RBC (Bld) [#/Vol] 10*3/uL Normal <0.01 [facility] Comment on above: Order Comment: Speci men Type: BLOOD SPECIMEN Ordering Facility: [facility] Address: [address] [place] [address] Performed By: #### 5 8410-2 #### [facility] CLIA [id number] [address] Platelet mean volume (Bld) [Entitic vol] 10.5 fL Normal 9.0-12.7 [facility] Comment on above: Order Comment: Speci men Type: BLOOD SPECIMEN Ordering [facility]: [facility] Address: [address] [place] [address] Performed By: #### 5 8410-2 #### [facility] CLIA [id number] [address] [place] [address] [place] Platelets (Bld) [#/Vol] 240 10*3/uL Normal 150-400 [facility] Comment on above: Order Comment: Speci men Type: BLOOD SPECIMEN [facility] Address: [address] [place] [address] Performed By: #### 5 8410-2 #### [facility] CLIA [id number] [address] [place] OF [facility] RBC (Bld) [#/Vol] 3.86 10*6/uL Low 3.90-5.20 [facility] Comment on above: Order Comment: Speci men Type: BLOOD SPECIMEN [facility]: [facility] Address: [address] [place] [address] Performed By: #### 5 8410-2 #### [facility] CLIA [id number] [address] OF [facility] WBC (Bld) [#/Vol] 9.38 10*3/uL Normal 3.70-11.00 [facility] Comment on above: Order Comment: Speci men Type: BLOOD SPECIMEN [facility] Address: [address] [place] [address] Performed By: #### 5 8410-2 #### [facility] CLIA [id number] [address] Comprehensive metabolic 2000 panelon 12-15-2023 Albumin [Mass/Vol] 3.8 g/dL Low 3.9-4.9 [facility] Comment on above: Order Comment: Speci men Type: BLOOD SPECIMEN Ordering [facility]: [facility] Address: [address] [place] [address] Performed By: #### 2 4323-8 #### [facility] CLIA [id number] [address] ALP [Catalytic activity/Vol] 222 U/L High 34-123 [facility] Comment on above: Order Comment: Speci men Type: BLOOD SPECIMEN Ordering [facility]: [facility] Address: [address] [place] [address] Performed By: #### 2 4323-8 #### [facility] CLIA [id number] [address] STATES OF [facility] ALT With P-5'-P [Catalytic activity/Vol] 33 U/L Normal 7-38 [facility] Comment on above: Order Comment: Speci men Type: BLOOD SPECIMEN Ordering [facility]: [facility] Address: [address] [place] [address] Performed By: #### 2 4323-8 #### [facility] CLIA [id number] [address] [place] Anion gap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 CARE UNIT FOR CONDITION OF INTEREST:FIND:PT:^P ATIENT:ORD: Unknown (01/18/22 1:06 AM) Invalid Interpretation Code AO Auto Urine SS Basophil, Absolute 0.0 103/mcL Invalid Interpretation Code 0.0 - 0.2 10^3/mcL AO Workflow SS Basophils/100 WBC (Bld) 0.6 % Invalid Interpretation Code 0.0 - 2.5 % AO Workflow SS Calcium [Mass/Vol] 8.4 mg/dL Invalid Interpretation Code 8.4 - 10.2 mg/dL AO ADM SS Chloride [Moles/Vol] 110 mmol/L Invalid Interpretation Code 98 - 107 mmol/L AO ADM SS CO2 [Moles/Vol] 25 mmol/L Invalid Interpretation Code 22 - 29 mmol/L AO ADM SS Creatinine [Mass/Vol] 0.84 mg/dL Invalid Interpretation Code 0.55 - 1.02 mg/dL AO ADM SS Electrolyte Balance 9.0 mEq/L Invalid Interpretation Code 4.0 - 15.0 mEq/L AO ADM SS EMPLOYED IN A HEALTHCARE SETTING:FIND:PT:^PA TIENT:ORD: No (01/18/22 1:06 AM) Invalid Interpretation Code AO Auto Urine SS Eosinophil, Absolute 0.1 103/mcL Invalid Interpretation Code 0.0 - 0.4 10^3/mcL AO Workflow SS Eosinophils/100 WBC (Bld) 0.7 % Invalid Interpretation Code 0.0 - 7.0 % AO Workflow SS Erythrocyte distribution width (RBC) [Ratio] 13.2 % Invalid Interpretation Code 11.5 - 14.5 % AO Workflow SS Ethanol [Mass/Vol] 230 mg/dL Invalid Interpretation Code 0 - 3 mg/dL AO ADM SS FIRST TEST FOR CONDITION OF INTEREST:FIND:PT:^P ATIENT:ORD: Unknown (01/18/22 1:06 AM) Invalid Interpretation Code AO Auto Urine SS Glucose [Mass/Vol] 111 mg/dL Invalid Interpretation Code 70 - 105 mg/dL AO ADM SS HAS SYMPTOMS RELATED TO CONDITION OF INTEREST:FIND:PT:^P ATIENT:ORD: No (01/18/22 1:06 AM) Invalid Interpretation Code AO Auto Urine SS Hematocrit (Bld) [Volume fraction] 42.4 % Invalid Interpretation Code 37.0 - 47.0 % AO Workflow SS Hemoglobin (Bld) [Mass/Vol] 14.7 G/dL Invalid Interpretation Code 12.0 - 16.0 G/dL AO Workflow SS Illness or injury onset date and time [id number] Invalid Interpretation Code AO Auto Urine SS Lymphocyte, Absolute 2.1 103/mcL Invalid Interpretation Code 0.8 - 3.9 10^3/mcL AO Workflow SS Lymphocytes/100 WBC (Bld) 27.4 % Invalid Interpretation Code 10.0 - 50.0 % AO Workflow SS MCH (RBC) [Entitic mass] 32.9 pg Invalid Interpretation Code 27.0 - 31.2 pg AO Workflow SS MCHC 34.5 G/dL Invalid Interpretation Code 33.0 - 37.0 G/dL AO Workflow SS MCV (RBC) [Entitic vol] 95.1 fL Invalid Interpretation Code 80.0 - 94.0 fL AO Workflow SS Monocyte distribution width Auto (Bld) [Entitic vol] 21.63 Invalid Interpretation Code 0.00 - 20.00 AO Workflow SS Comment on above: Result Comment: For adults in ED, MDW>20.0 may be associated with a higher risk of sepsis during the first 12hrs of hospital admission Monocyte, Absolute 0.7 103/mcL Invalid Interpretation Code 0.2 - 1.0 10^3/mcL AO Workflow SS Monocytes/100 WBC (Bld) 9.5 % Invalid Interpretation Code 1.7 - 13.0 % AO Workflow SS Neutrophil, Absolute 4.8 103/mcL Invalid Interpretation Code 2.9 - 6.2 10^3/mcL AO Workflow SS Neutrophils/100 WBC (Bld) 61.8 % Invalid Interpretation Code 37.0 - 80.0 % AO Workflow SS Patient was hospitalized because of this condition Yes (01/18/22 1:06 AM) Invalid Interpretation Code AO Auto Urine SS Platelet mean volume (Bld) [Entitic vol] 8.0 fL Invalid Interpretation Code 7.4 - 10.4 fL AO Workflow SS Platelets (Bld) [#/Vol] 266 103/mcL Invalid Interpretation Code 130 - 400 10^3/mcL AO Workflow SS Potassium [Moles/Vol] 3.9 mmol/L Invalid Interpretation Code 3.5 - 5.1 mmol/L AO ADM SS status Unknown (01/18/22 1:06 AM) Invalid Interpretation Code AO Auto Urine SS RBC (Bld) [#/Vol] 4.46 106/mcL Invalid Interpretation Code 4.20 - 5.40 10^6/mcL AO Workflow SS RESIDES IN A CONGREGATE CARE SETTING:FIND:PT:^PA TIENT:ORD: Unknown (01/18/22 1:06 AM) Invalid Interpretation Code AO Auto Urine SS Salicylate Level 2.0 mg/dL Invalid Interpretation Code 2.8 - 20.0 mg/dL AO ADM SS SARS-CoV-2 (COVID-19) RNA YAYO+probe Ql (Unsp spec) Negative results do not preclude SARS-CoV-2 infection and should not be used as the sole basis for patient management decisions. Negative results must be combined with clinical observations, patient history, and epidemiological information.There is a risk of false negative values resulting from improperly collected, transported, or handled specimens.There is a risk of false negative values due to the presence of sequence variants in the pathogen targets of the assay, procedural errors, amplification inhibitors in specimens, or inadequate numbers of organisms for amplification.SHANT SARS-CoV-2 Assay is a Real-Time reverse-transcriptase polymerase chain reaction (RT-PCR) based qualitative in vitro diagnostic test intended for the qualitative detection of nucleic acid from the SARS-CoV-2 in nasopharyngeal swab specimens collected from individuals suspected of COVID-19 by their healthcare provider. Testing is limited to laboratories certified under the Clinical Laboratory Improvement Amendments of 1988 (CLIA), 42 U.S.C. 263a, to perform moderate and high complexity tests. Invalid Interpretation Code AO Auto Urine SS Sodium [Moles/Vol] 144 mmol/L Invalid Interpretation Code 136 - 145 mmol/L AO ADM SS TSH Qn 1.33 m[IU]/L Invalid Interpretation Code 0.36 - 3.74 mcIU/mL AO ADM SS Urea nitrogen [Mass/Vol] 9 mg/dL Invalid Interpretation Code 7 - 18 mg/dL AO ADM SS Urea nitrogen/Creatinine [Mass ratio] 11 ratio Invalid Interpretation Code 7 - 27 ratio AO ADM SS WBC 7.8 103/mcL Invalid Interpretation Code 4.6 - 10.8 10^3/mcL AO Workflow SS LABORATORYOrdered By: Estrellita Oneil on 01-18-2022 Glucose [Mass/Vol] 78 mg/dL Invalid Interpretation Code 70 - 110 mg/dL [facility] Work Phone: LABORATORYOrdered By: SYSTEM SYSTEM on 01-18-2022 GFR 105 ml/min/1.73sqm Invalid Interpretation Code AO Chemistry S GFR Non- 86 ml/min/1.73sqm Invalid Interpretation Code AO Chemistry S PREGUon 01-18-2022 HCG ( test) Ql (U) Negative Normal [facility] ([place]) Comment on above: Performed By: #### U A, PREGU, TOXSC #### [address] [address] test (u) int Not detected Invalid Interpretation Code [facility] ([place] Comment on above: Performed By: #### U A, PREGU, TOXSC #### [address] [address] SALon 01-18-2022 Salicylate Level 2.0 mg/dL Low 2.8-20.0 [facility] ([place] Comment on above: Performed By: #### A DIFF, CMP, CBC, ERDS, GFR, ANEU #### [address] [address] TOXSCon 01-18-2022 U Ampheta (AO) Negative Normal [facility] ([place] Comment on above: Performed By: #### A DIFF, CMP, CBC, ERDS, GFR, ANEU #### [address] [address] U Lisa (AO) Negative Normal [facility] ([place] Comment on above: Performed By: #### A DIFF, CMP, CBC, ERDS, GFR, ANEU #### [address] [address] U Lidia (AO) Negative Normal [facility] ([place] Comment on above: Performed By: #### A DIFF, CMP, CBC, ERDS, GFR, ANEU #### [address] [address] U Cannab (AO) Negative Normal [facility] ([place] Comment on above: Performed By: #### A DIFF, CMP, CBC, ERDS, GFR, ANEU #### [address] [address] U Cocaine (AO) Negative [facility] [place]) Comment on above: Performed By: #### A DIFF, CMP, CBC, ERDS, GFR, ANEU #### [address] [address] U Methadone (AO) Negative [facility] ([place] Comment on above: Performed By: #### A DIFF, CMP, CBC, ERDS, GFR, ANEU #### [address] [address] U PCP (AO) Negative Normal [facility] ([place]) Comment on above: Performed By: #### A DIFF, CMP, CBC, ERDS, GFR, ANEU #### [address] [address] U TCA (AO) Negative Normal [facility] ([place]) Comment on above: Performed By: #### A DIFF, CMP, CBC, ERDS, GFR, ANEU #### [address] [address] Urine Opiates (AO) Negative Normal [facility] ([place]) Comment on above: Performed By: #### A DIFF, CMP, CBC, ERDS, GFR, ANEU #### [address] [address] TSHon 01-18-2022 TSH Qn 1.33 m[IU]/L Normal 0.36-3.74 [facility] ([place] Comment on above: Performed By: #### A DIFF, CMP, CBC, ERDS, GFR, ANEU #### [address] [address] UAon 01-18-2022 Color (U) Yellow Normal [facility] ([place] Comment on above: Performed By: #### U A, PREGU, TOXSC #### [address] [address] Glucose (U) [Mass/Vol] Negative Normal Negative [facility] ([place]) Comment on above: Performed By: #### U A, PREGU, TOXSC #### [address] [address] Ketones Ql (U) Negative Normal Negative [facility] ([place]) Comment on above: Performed By: #### U A, PREGU, TOXSC #### [address] [address] UA Appear Clear Normal Clear [facility] ([place]) Comment on above: Performed By: #### U A, PREGU, TOXSC #### [address] [address] UA Blood Trace Abnormal Negative [facility] ([place]) Comment on above: Performed By: #### U A, PREGU, TOXSC #### [address] [address] UA Leuk Est Negative Normal Negative [facility] ([place] Comment on above: Performed By: #### U A, PREGU, TOXSC #### [address] [address] UA Nitrite Negative Normal Negative [facility] ([place] Comment on above: Performed By: #### U A, PREGU, TOXSC #### [address] [address] UA pH 5.5 Normal 5.0 - 8.0 [facility] ([place] Comment on above: Performed By: #### U A, PREGU, TOXSC #### [place] [address] UA Protein Negative Normal Negative [facility] ([place] Comment on above: Performed By: #### U A, PREGU, TOXSC #### [place] [address] UA Spec Grav 1.010 Abnormal 1.015-1.025 [facility] ([place] Comment on above: Performed By: #### U A, PREGU, TOXSC #### [place] [address] UA Specimen Type Not Given Normal [facility] ([place] Comment on above: Performed By: #### U A, PREGU, TOXSC #### [place] [address] UA Urobilinogen 0.2 E.U./dL Normal 0.2-1.0 [facility] ([place] Comment on above: Performed By: #### U A, PREGU, TOXSC #### [place] [address] Urobilinogen (U) [Mass/Vol] Negative Normal Negative [facility] ([place] Comment on above: Performed By: #### U A, PREGU, TOXSC #### [address] [place], [place] [address] VBGAOon 01-18-2022 BE Venous -3 mmol/L Low -2-3 [facility] ([place] Comment on above: Performed By: #### A DIFF, CMP, CBC, ERDS, GFR, ANEU #### [address] [address] CO2 [Moles/Vol] 43 mmol/L Normal 24.0-29.0 [facility] ([place] Comment on above: Performed By: #### A DIFF, CMP, CBC, ERDS, GFR, ANEU #### [address] [address] HCO3 (Bld) [Moles/Vol] 23.4 mmol/L Normal 23.0-28.0 [facility] ([place] Comment on above: Performed By: #### A DIFF, CMP, CBC, ERDS, GFR, ANEU #### [place] [address] pCO2 Fazal 49 mmHg Normal 41-51 [facility] ([place] Comment on above: Performed By: #### A DIFF, CMP, CBC, ERDS, GFR, ANEU #### [address] [address] pH Venous 7.29 Low 7.31-7.41 [facility] ([place] Comment on above: Performed By: #### A DIFF, CMP, CBC, ERDS, GFR, ANEU #### [place] [address] pO2 Fazal 27 mmHg Normal [facility] ([place] Comment on above: Performed By: #### A DIFF, CMP, CBC, ERDS, GFR, ANEU #### [address] [address] XR CHEST 1 VIEWon 01-18-2022 XR CHEST 1 VIEW ORIGINAL EXAMINATION: ONE XRAY VIEW OF THE CHEST 01/18/2022 2:09 am COMPARISON: Chest x-ray 09/14/2020. HISTORY: ORDERING SYSTEM PROVIDED HISTORY: Reason for Exam: AMS FINDINGS: Cardiomediastinal silhouette is within normal limits. No focal consolidation, vascular congestion, large pleural effusion or pneumothorax. The osseous structures are intact. IMPRESSION: No acute radiographic findings. I have personally reviewed the images of this examination, and agree with the resident's findings and interpretation. Interpreted by: Guille Argueta MD Preliminary Report By: Wu Burgos Electronically signed By Guille Argueta MD Dictated Date: 01/18/2022 2:15:16 AM Prelim Date: 01/18/2022 2:16:47 AM Sign Date: 01/18/2022 2:18:24 AM Ordering Provider: SHAILA FLOYD [facility] [place]) CBC W Auto Differential pane l (Bld)on 01-03-2022 Abs Immature Gran <0.03 <0.10 k/uL [facility] Basophils (Bld) [#/Vol] 0.04 10*3/uL <0.11 k/uL [facility] Basophils/100 WBC (Bld) 0.4 % [facility] Differential cell count method Nom (Bld) Auto [facility] Eosinophils (Bld) [#/Vol] 0.08 10*3/uL <0.46 k/uL [facility] Eosinophils/100 WBC (Bld) 0.9 % [facility] Erythrocyte distribution width (RBC) [Ratio] 12.0 % 11.5 - 15.0 % [facility] Hematocrit (Bld) [Volume fraction] 44.0 % 36.0 - 46.0 % [facility] Hemoglobin (Bld) [Mass/Vol] 15.0 g/dL 11.5 - 15.5 g/dL [facility] Immature Gran % 0.2 % [facility] Lymphocytes (Bld) [#/Vol] 1.95 10*3/uL 1.00 - 4.00 k/uL [facility] Lymphocytes/100 WBC (Bld) 21.8 % [facility] MCH (RBC) [Entitic mass] 32.5 pg 26.0 - 34.0 pg [facility] MCHC (RBC) [Mass/Vol] 34.1 g/dL 30.5 - 36.0 g/dL [facility] MCV (RBC) [Entitic vol] 95.2 fL 80.0 - 100.0 fL [facility] Monocytes (Bld) [#/Vol] 0.59 10*3/uL <0.87 k/uL [facility] Monocytes/100 WBC (Bld) 6.6 % [facility] Neutrophils (Bld) [#/Vol] 6.28 10*3/uL 1.45 - 7.50 k/uL [facility] Neutrophils/100 WBC (Bld) 70.1 % [facility] Nucleated RBC (Bld) [#/Vol] 10*3/uL <0.01 k/uL [facility] Nucleated RBC/100 WBC (Bld) [Ratio] 0.0 /100 WBC [facility] Platelet mean volume (Bld) [Entitic vol] 10.1 fL 9.0 - 12.7 fL [facility] Platelets (Bld) [#/Vol] 258 10*3/uL 150 - 400 k/uL [facility] RBC (Bld) [#/Vol] 4.62 10*6/uL 3.90 - 5.2 0 m/uL [facility] WBC (Bld) [#/Vol] 8.96 10*3/uL 3.70 - 11. 00 k/uL [facility] BASIC METABOLIC PANELon 05- Anion gap [Moles/Vol] 9 mmol/L Low 10 - 20 [facility] Comment on above: Performed By: #### G TRINY #### [address] [address] Calcium [Mass/Vol] 8.2 mg/dL Low 8.6 - 10.3 [facility] Comment on above: Performed By: #### G TRINY #### [address] [address] Chloride [Moles/Vol] 109 mmol/L High 98 - 107 [facility] Comment on above: Performed By: #### G TRINY #### [address] [address] Creatinine [Mass/Vol] 0.61 mg/dL Normal 0.50 - 1.05 [facility] Comment on above: Performed By: #### G TRINY #### [address] [address] eGFR FEMALE >90 Normal >90 [facility] Comment on above: Result Comment: CALC ULATIONS OF ESTIMATED GFR ARE PERFORMED USING THE 2020 CKD-EPI STUDY REFIT EQUATION WITHOUT THE RACE VARIABLE FOR THE IDMS-TRACEABLE CREATININE METHODS. https://jasn.asnjournals.org/content//ASN.82928826 88 Performed By: #### G TRINY #### [address] [address] Glucose [Mass/Vol] 86 mg/dL Normal 74 - 99 [facility] Comment on above: Performed By: #### G TRINY #### [address] [address] HCO3 (Bld) [Moles/Vol] 25 mmol/L Normal 21 - 32 [facility] Comment on above: Performed By: #### G TRINY #### [address] [address] Potassium [Moles/Vol] 3.5 mmol/L Normal 3.5 - 5.3 [facility] Comment on above: Performed By: #### G TRINY #### [address] [address] Sodium [Moles/Vol] 139 mmol/L Normal 136 - 145 [facility] Comment on above: Performed By: #### G TRINY #### [address] [address] Urea nitrogen [Mass/Vol] 7 mg/dL Normal 6 - 23 [facility] Comment on above: Performed By: #### G TRINY #### [address] [address] Daily Progress Note-Critical Careon 11-23-2021 Daily Progress Note-Critical Care Service: Critical Care Subjective Data: DORY ANDREWS is a 20 year old Female who is Hospital Day # 3. Patient seen and examined at the bedside this morning She is resting comfortably in bed She has no major complaints at this time She states that she does feel like she needs an inpatient stay for her psychiatric needs. Objective Data: Objective Information: T PRBPMAPSpO2 [id number]% Date/Time11/23 4: 4: 4: 4: 4: 4:00 Range(36.5C - 37C ) (75 - 105 ) (13 - 24 ) (94 - 126 )/ (47 - 78 ) (64 - 83 ) (97% - 100% ) Highest temp of 37 C was recorded at 11/23 4:00 Pain reported at 11/23 4:00: 0 = None Physical Exam by System: Constitutional: Awake, alert, oriented, no acute distress Eyes: Extraocular muscles intact ENMT: Moist mucous membranes Head/Neck: Normocephalic, atraumatic Respiratory/Thorax: Bilateral equal breath sounds and clear Cardiovascular: Regular rate and rhythm Gastrointestinal: Soft, nontender, nondistended Musculoskeletal: Resting comfortably in bed Extremities: No peripheral edema Neurological: Awake, alert, oriented Psychological: Cooperative Skin: Warm and dry Medication: Medications: Continuous Medications ------ No continuous medications are active Scheduled Medications ------ 1. Folic Acid: 1 mg Oral Daily 2. Nicotine 21 mg/ 24 hour TransDermal: 1 patch TransDermal Every 24 Hours 3. Thiamine: 100 mg Oral Daily PRN Medications ------ 1. Acetaminophen: 650 mg Oral Every 4 Hours 2. Albuterol 2.5 mg - Ipratropium 0.5 mg/ 3 mL Neb Soln: 3 mL Inhalation Every 4 Hours 3. Ketorolac Injectable: 15 mg IntraVenous Push Every 6 Hours 4. Ondansetron Injectable: 4 mg IntraVenous Push Every 4 Hours 5. Sodium Chloride 0.9% Injectable Flush: 10 mL IntraVenous Flush Every 8 Hours and as Needed Recent Lab Results: Results: BMP: 11/23/2021 04:59 NA+ Cl- BUN / 139 109 H 7 / ------ Glucose - 86 K+ HCO3- Creat \ 3.5 25 0.61 \ Calcium : 8.2 L Anion Gap : 9 L Assessment and Plan: Code Status: Code StatusFull Code Assessment: Multidrug overdose with suicide attempt Hypoglycemia Alcohol intoxication Nicotine abuse Depression PTSD Polycystic ovarian syndrome Pots syndrome Plan: At this time her sugars are stable she is on a very low-dose of dextrose drip Encourage good p.o. intake Stop dextrose infusion at this time She is stable from the medical standpoint She needs to be evaluated by psychiatry Social work needs to work with her to see what her needs would be She feels like she needs an inpatient stay somewhere at this time She does follow-up with social work and a counselor in [place] At this time I will sign off Please call with any issues or needs Electronic Signatures: Giles Schmitt () (Signed 23-Nov-2021 06:46) Authored: Service, Subjective Data, Objective Data, Assessment and Plan, Note Completion Last Updated: 23-Nov-2021 06:46 by Giles Schmitt () [facility] Discharge [id number] Discharge Profile2 Discharge Orders: Anticipated Discharge Date: Anticipated Discharge [id number] DNAR: Code Status at Discharge: Full Code Activity: activity as tolerated. Diet: Dietlow fat Provider FINAL REVIEW of Orders: Final Review: Final Review of Medication Reconciliation and Orders Completedby Physician Reviewing ProviderJoseph Hester MD at 23-Nov-2021 09:03:20 Appointments: Follow-Up Appointment 01: Physician/Dept/Servicefoll ow [facility] now and PCP in 1 week Scheduled Date/[id number] 09:03 Joseph will call and make her own appointment. Follow-Up Appointment 02: Physician/Dept/Serviceto hold home meds at this time until reconciled by Psych and PCP Electronic Signatures: Cora Mitchell (JOSE) (Signed 23-Nov-2021 10:01) Authored: Discharge Orders, Appointments Joseph Hester) (Signed 23-Nov-2021 09:03) Authored: Discharge Orders, Provider FINAL REVIEW of Orders, Appointments, Gold Form - Data Integrity Analyst Summary Last Updated: 23-Nov-2021 10:01 by Cora Mitchell (JOSE) [facility] Order Reconciliationon 11-23 Order Reconciliation Page 1 Discharge Reconciliation Document Reconciliation Type: Discharge requested on behalf of Joseph Hester (Physician) done by Joseph Hester) Discharge - Reconciliation: 23-Nov-2021 09:01 by: Joseph Hester) Home Medications EnteredHOME MEDICATIONS AT DISCHARGE DateReconciliation Comment/ Additional Information cyanocobalamin 1000 mcg/mL injectable solution 1000 microgram(s) injectable every 4 weeks 21-Nov-2021 19:34 cyanocobalamin 1000 mcg/mL injectable solution 1000 microgram(s) injectable every 4 weeks 21-Nov-2021 19:34 cyanocobalamin 1000 mcg/mL injectable solution is continued as cyanocobalamin 1000 mcg/mL injectable solution metFORMIN 500 mg oral tablet, extended release 2 tab(s) orally once a day 21-Nov-2021 18:23 metFORMIN 500 mg oral tablet, extended release 2 tab(s) orally once a day 21-Nov-2021 18:23 metFORMIN 500 mg oral tablet, extended release is continued as metFORMIN 500 mg oral tablet, extended release propranolol 10 mg oral tablet 1 tab(s) orally 2 times a day 21-Nov-2021 18:20 propranolol 10 mg oral tablet 1 tab(s) orally 2 times a day 21-Nov-2021 18:20 propranolol 10 mg oral tablet is continued as propranolol 10 mg oral tablet sertraline 100 mg oral tablet 1 tab(s) orally once a day 21-Nov-2021 19:33 sertraline 100 mg oral tablet 1 tab(s) orally once a day 21-Nov-2021 19:33 sertraline 100 mg oral tablet is continued as sertraline 100 mg oral tablet Tylenol 500 mg oral tablet 2 tab(s) orally every 6 hours, As Needed 21-Nov-2021 18:20 Tylenol 500 mg oral tablet 2 tab(s) orally every 6 hours, As Needed 21-Nov-2021 18:20 Tylenol 500 mg oral tablet is continued as Tylenol 500 mg oral tablet Vitamin D3 125 mcg (5000 intl units) oral capsule 1 cap(s) orally once a day 21-Nov-2021 19:35 Vitamin D3 125 mcg (5000 intl units) oral capsule 1 cap(s) orally once a day 21-Nov-2021 19:35 Vitamin D3 125 mcg (5000 intl units) oral capsule is continued as Vitamin D3 125 mcg (5000 intl units) oral capsule Current OrdersDateHOME MEDICATIONS AT DISCHARGE DateReconciliation Comment/ Additional Information Acetaminophen Tablet (TYLENOL)DOSE = 650 mg Oral Every 4 Hours, PRN Pain - Mild (1-3) 22-Nov-2021 09:45 Acetaminophen is not required Albuterol 2.5 mg - Ipratropium 0.5 mg/ 3 mL Neb Soln (DUONEB)DOSE = 3 mL Inhalation Every 4 Hours via Nebulizer, PRN Shortness of Breath 21-Nov-2021 20:07 Albuterol 2.5 mg - Ipratropium 0.5 mg/ 3 mL Neb Soln is not required Folic Acid TabletDOSE = 1 mg Oral Daily 21-Nov-2021 20:24 Folic Acid is not required Ketorolac Injectable (TORADOL)DOSE = 15 mg IntraVenous Push Every 6 Hours, PRN Pain - Mod (4-6) 22-Nov-2021 10:03 Ketorolac Injectable is not required Nicotine 21 mg/ 24 hour TransDermal Film, Extended Release (NICODERM)DOSE = 1 patch TransDermal Every 24 HoursNotes from Pharmacy: [facility] 22-Nov-2021 00:47 Nicotine 21 mg/ 24 hour TransDermal is not required Ondansetron Injectable (ZOFRAN)DOSE = 4 mg IntraVenous Push Every 4 Hours, PRN Nausea and/or Vomiting 21-Nov-2021 20:03 Ondansetron Injectable is not required Sodium Chloride 0.9% Injectable Flush via Peripheral LineVolume = 10 mL IntraVenous Flush Every 8 Hours and as Needed 21-Nov-2021 20:03 Sodium Chloride 0.9% Injectable Flush is not required Thiamine TabletDOSE = 100 mg Oral Daily 21-Nov-2021 20:24 Thiamine is not required All Active Home Medications at time of Discharge Reconciliation: 23-Nov-2021 09:01 cyanocobalamin 1000 mcg/mL injectable solution 1000 microgram(s) injectable every 4 weeks metFORMIN 500 mg oral tablet, extended release 2 tab(s) orally once a day propranolol 10 mg oral tablet 1 tab(s) orally 2 times a day sertraline 100 mg oral tablet 1 tab(s) orally once a day Tylenol 500 mg oral tablet 2 tab(s) orally every 6 hours, As Needed Vitamin D3 125 mcg (5000 intl units) oral capsule 1 cap(s) orally once a day Normal [facility] ALCOHOLon 11-22-2021 Ethanol [Mass/Vol] mg/dL Normal [facility] Comment on above: Result Comment: FOR MEDICAL USE ONLY. . REF VALUES <10 Performed By: #### G TRINY #### [address] [address] BASIC METABOLIC PANELon 11-10 Calcium [Mass/Vol] 7.7 mg/dL Low 8.6 - 10.3 [facility] Comment on above: Performed By: #### B MP #### [place] [address] Anion gap [Moles/Vol] 9 mmol/L Low 10 - 20 [facility] Comment on above: Performed By: #### B MP #### [place] [id number] Chloride [Moles/Vol] 110 mmol/L High 98 - 107 [facility] Comment on above: Performed By: #### B MP #### [place] [id number] Creatinine [Mass/Vol] 0.54 mg/dL Normal 0.50 - 1.05 [facility] Comment on above: Performed By: #### B MP #### [address] [address] eGFR FEMALE >90 Normal >90 [facility] Comment on above: Result Comment: CALC ULATIONS OF ESTIMATED GFR ARE PERFORMED USING THE 2020 CKD-EPI STUDY REFIT EQUATION WITHOUT THE RACE VARIABLE FOR THE IDMS-TRACEABLE CREATININE METHODS. https://jasn.asnjournals.org/content/early/ASN.04445638 88 Performed By: #### B MP #### [address] [address] [address] Glucose [Mass/Vol] 83 mg/dL Normal 74 - 99 [facility] Comment on above: Performed By: #### B MP #### [address] [address] HCO3 (Bld) [Moles/Vol] 24 mmol/L Normal 21 - 32 [facility] Comment on above: Performed By: #### B MP #### [address] [address] Potassium [Moles/Vol] 3.6 mmol/L Normal 3.5 - 5.3 [facility] Comment on above: Performed By: #### B MP #### [address] [address] Sodium [Moles/Vol] 139 mmol/L Normal 136 - 145 [facility] Comment on above: Performed By: #### B MP #### [address] [address] Urea nitrogen [Mass/Vol] 9 mg/dL Normal 6 - 23 [facility] Comment on above: Performed By: #### B MP #### [address] [address] BLOOD CULTURE, BACTERIALon 0 11-22-2021 BLOOD CULTURE, BACTERIAL TEST BLOOD CULTURE, BACTERIAL WAS CANCELLED, 11/22/2021 13:53 PATIENT: DORY ANDREWS LOCATION: [facility]#: [id number] : [birth year] AGE: SEX: F ORDERED BY: JUAN HEART SOURCE: Blood COLLECTED: ANTIBIOTICS AT ANGE.: RECEIVED : SITE: R E S U L T S BLOOD CULTURE, BACTERIAL CANCELLED 11/22/21 13:53 Normal [facility] Comment on above: Performed By: #### B LDC #### [facility] [address] [place] [address] CBCon 11-22-2021 Erythrocyte distribution width (RBC) [Ratio] 13.1 % Normal 11.5 - 14.5 [facility] Comment on above: Performed By: #### B LDC #### [facility] [address] [place] [address] Hematocrit (Bld) [Volume fraction] 37.8 % Normal 36.0 - 46.0 [facility] Comment on above: Performed By: #### B LDC #### [facility] [address] [place] [address] Hemoglobin (Bld) [Mass/Vol] 12.9 g/dL Normal 12.0 - 16.0 [facility] Comment on above: Performed By: #### B LDC #### [facility] [address] [place] [address] MCHC (RBC) [Mass/Vol] 34.1 g/dL Normal 32.0 - 36.0 [facility] Comment on above: Performed By: #### B LDC #### [facility] [address] [place] [address] MCV (RBC) [Entitic vol] 95 fL Normal 80 - 100 [facility] Comment on above: Performed By: #### B LDC #### [facility] [address] [place] [address] Platelets (Bld) [#/Vol] 203 10*3/uL Normal 150 - 450 [facility] Comment on above: Performed By: #### B LDC #### [facility] [address] [place] [address] RBC 3.97 x10E12/L Low 4.00 - 5.20 [facility] Comment on above: Performed By: #### B LDC #### [facility] [address] [place] [address] WBC (Bld) [#/Vol] 8.4 10*3/uL Normal 4.4 - 11.3 [facility] Comment on above: Performed By: #### B LDC #### [facility] [address] [place] [address] Consult-Critical Careon - Consult-Critical Care Service: Service: Critical Care Consult: Consult requested by (Attending Name): Wade Hernández Reason: ICU MANAGEMENT History of Present Illness: HPI: DORY ANDREWS is a 20 year old Female She presented to the emergency room after ingestion of medications due to a suicide attempt after a stressful event with her significant other. Per report she took metformin, propranolol, Lamictal, Zoloft. When she presented her sugar was low and she was given dextrose she was also placed on oxygen as she was fairly obtunded. She did repeat Siv Romazicon. She did respond better and she was admitted to the ICU for close follow-up with a dextrose drip She has a past medical history of posttraumatic stress disorder, bipolar disorder, depression, POTS syndrome, and polycystic ovarian syndrome. Her surgical history is unremarkable Her family history includes hypothyroidism Her social history includes that she smokes a half a pack of cigarettes per day she does not work. She does use some alcohol at times This a.m. when I met her she is resting comfortably in bed She states that she is feeling better than when she got here She states that she does not remember what happened that brought her here A full 10 point review of systems was obtained is negative except HPI as above Review Family/Social History and ROS: Social History: Smoking Status: light user (uses <10 cig/day, OR <0.5 ppd, OR 1 can/pouch loose leaf tobacco per week, OR <0.5 vape pods per day) (1) Alcohol Use: daily(1) Drug Use: denies (1) Allergies: No Known Allergies: Objective: Objective Information: T PRBPMAPSpO2 [id number]/869972% Date/Time11/22 4: 5: 5: 5: 5: 5:00 Range(36.6C - 37C ) (77 - 111 ) (16 - 23 ) (98 - 135 )/ (47 - 81 ) (64 - 81 ) (96% - 100% ) Highest temp of 37 C was recorded at 11/22 0:00 Physical Exam by System: Constitutional: Awake, alert, oriented, no acute distress Eyes: Extraocular muscles intact ENMT: Moist mucous membranes Head/Neck: Normocephalic, atraumatic Respiratory/Thorax: Bilateral equal breath sounds and clear Cardiovascular: Regular rate and rhythm Gastrointestinal: Soft, nontender, nondistended Musculoskeletal: Resting comfortably in bed Extremities: No peripheral edema Neurological: Awake, alert, oriented Psychological: Cooperative Skin: Warm and dry Medications: Medications: Continuous Medications ------ 1. Dextrose 10% in Water Infusion: 500 mL IntraVenous 2. Dextrose 10% in Water Infusion: 1000 mL IntraVenous Scheduled Medications ------ 1. Folic Acid: 1 mg Oral Daily 2. Nicotine 21 mg/ 24 hour TransDermal: 1 patch TransDermal Every 24 Hours 3. Thiamine: 100 mg Oral Daily PRN Medications ------ 1. Albuterol 2.5 mg - Ipratropium 0.5 mg/ 3 mL Neb Soln: 3 mL Inhalation Every 4 Hours 2. Ondansetron Injectable: 4 mg IntraVenous Push Every 4 Hours 3. Sodium Chloride 0.9% Injectable Flush: 10 mL IntraVenous Flush Every 8 Hours and as Needed Recent Lab Results: Results: I have reviewed these laboratory results: Glucose_POCT [Drawn 22-Nov-2021 03:47:00], Lactate, Level [Drawn 22-Nov-2021 00:59:00], Lactate, Level [Drawn 21-Nov-2021 19:59:00], Lactate, Level [Drawn 21-Nov-2021 17:23:00], Drug Screen, Urine [Drawn 21-Nov-2021 18:40:00], Urine Test [Drawn 21-Nov-2021 18:40:00], Urinalysis [Drawn 21-Nov-2021 18:40:00], Urinalysis, Microscopic [Drawn 21-Nov-2021 18:40:00], Influenza A/B,Covid 2019 PCR,Symptomatic [Drawn 21-Nov-2021 18:20:00], Complete Blood Count + Differential [Drawn 21-Nov-2021 17:24:00], Troponin I, High Sensitivity [Drawn 21-Nov-2021 17:24:00], HCG, Serum [Drawn 21-Nov-2021 17:24:00], Hepatic Function Panel [Drawn 21-Nov-2021 17:23:00], Basic Metabolic Panel [Drawn 21-Nov-2021 17:23:00], Ethanol Level [Drawn 21-Nov-2021 17:23:00], Acetylsalicylic Acid Level, Serum [Drawn 21-Nov-2021 17:23:00], Acetaminophen Level, Serum [Drawn 21-Nov-2021 17:23:00], Creatine Kinase, Level [Drawn 21-Nov-2021 17:23:00], Ammonia, Plasma [Drawn 21-Nov-2021 17:23:00], Arterial Full Panel [Drawn 21-Nov-2021 17:19:00], COOX Panel, Arterial [Drawn 21-Nov-2021 17:19:00]. Radiology Results: Results: Xray Chest 1 View [Nov 21 2021 6:33PM] Assessment: Medication overdose with suicide attempt Hypoglycemia Alcohol intoxication Nicotine abuse Depression PTSD Polycystic ovarian syndrome Pots syndrome Plan: At this time she is on a dextrose infusion and we will continue this for now Her heart rate is stable her blood pressure is stable her breathing status is stable She is on folic acid and thiamine she is on nicotine replacement She has a sitter at the bedside We will have to make sure that her sugar stays stable I will decrease her dextrose infu (more content not included)... Normal [facility] Electrocardiogram 12 Leadon 11-22-2021 Electrocardiogram 12 Lead Ventricular Rate 91 Atrial Rate 91 P-R Interval 130 QRS Duration 88 Q-T Interval 370 QTC Calculation(Bazett) 455 P Onida 52 R Onida 66 T Onida 21 QRS Count 15 Q Onset 218 P Onset 153 P Offset 201 T Offset 403 QTC Fredericia 425 Diagnosis Class Borderline Abnormal Diagnosis Normal sinus rhythm Normal ECG When compared with ECG of 21-NOV-2021 17:20, Previous ECG has undetermined rhythm, needs review Nonspecific T wave abnormality has replaced inverted T waves in Inferior leads Confirmed by UMER KUHN MD ([id number]) on 11/25/2021 11:31:54 AM Normal [facility] GLUCOSE-POCTon 11-22-2021 Glucose [Mass/Vol] 91 mg/dL Normal 74 - 99 [facility] Comment on above: Performed By: #### G TRINY #### [address] [address] Glucose [Mass/Vol] 86 mg/dL Normal 74 - 99 [facility] Comment on above: Performed By: #### G TRINY #### [address] [address] Glucose [Mass/Vol] 85 mg/dL Normal 74 - 99 [facility] Comment on above: Performed By: #### G TRINY #### [address] [address] Glucose [Mass/Vol] 90 mg/dL Normal 74 - 99 [facility] Comment on above: Performed By: #### G TRINY #### [address] [address] Glucose [Mass/Vol] 85 mg/dL Normal 74 - 99 [facility] Comment on above: Performed By: #### B LDC #### [facility] [address] [place] [address] Glucose [Mass/Vol] 105 mg/dL High 74 - 99 [facility] Comment on above: Performed By: #### G TRINY #### [address] [address] LACTATEon 11-22-2021 LACTATE Canceled Normal [facility] Comment on above: Order Comment: TEST LACTATE WAS CANCELLED, 11/22/2021 13:53 Result Comment: Anjali puncture immediately after or during the administration of Metamizole may lead to falsely low results. Testing should be performed immediately prior to Metamizole dosing. Performed By: #### G TRINY #### [address] [address] Lactate [Moles/Vol] 1.4 mmol/L Normal 0.4 - 2.0 [facility] Comment on above: Result Comment: Anjali puncture immediately after or during the administration of Metamizole may lead to falsely low results. Testing should be performed immediately prior to Metamizole dosing. Performed By: #### B MP #### [address] [address] TSHon 11-22-2021 TSH Qn 1.11 m[IU]/L Normal 0.44 - 3.98 [facility] Comment on above: Result Comment: TSH testing is performed using different testing methodology at [facility] than at other [facility]. Direct result comparisons should only be made within the same method. Performed By: #### G TRINY #### [address] [address] ACETAMINOPHENon 11-21-2021 Acetaminophen [Mass/Vol] ug/mL Normal 10.0 - 30.0 [facility] Comment on above: Performed By: #### A CETA #### [place] [address] ALCOHOLon 11-21-2021 Ethanol [Mass/Vol] 302 mg/dL Abnormal [facility] Comment on above: Result Comment: FOR MEDICAL USE ONLY. . REF VALUES <10 Performed By: #### A LC #### [place] [address] AMMONIAon 11-21-2021 Ammonia (P) [Moles/Vol] 23 umol/L Normal [facility] Comment on above: Result Comment: . REFERENCE VALUES DAY 1 to DAY 7 <110 DAY 8 to DAY 14 < 90 DAY 15 to ADULT 16-53 Performed By: #### A MM #### [place] [address] ARTERIAL FULL PANELon 2021 Anion gap [Moles/Vol] 16 mmol/L Normal 10 - 25 [facility] Comment on above: Performed By: #### G TRINY #### [place] [address] APPARATUS Cannula Normal [facility] Comment on above: Performed By: #### G TRINY #### [place] [address] BASE EXCESS-BLOOD -3.8 mmol/L Low -2.0 - 3.0 [facility] Comment on above: Performed By: #### G TRINY #### [place] [address] BICARB, CALCULATED 19.0 mmol/L Low 22.0 - 26.0 [facility] Comment on above: Performed By: #### G TRINY #### [place] [address] CALCIUM,IONIZED 1.05 mmol/L Low 1.10 - 1.33 [facility] Comment on above: Performed By: #### G TRINY #### [place] [address] Chloride [Moles/Vol] 108 mmol/L High 98 - 107 [facility] Comment on above: Performed By: #### G TRINY #### [address] [address] FIO2 36 % Normal [facility] Comment on above: Performed By: #### G TRINY #### [address] [address] Glucose [Mass/Vol] 343 mg/dL High 74 - 99 [facility] Comment on above: Performed By: #### G TRINY #### [place] [address] Hematocrit (Bld) [Volume fraction] 41.0 % Normal 36.0 - 46.0 [facility] Comment on above: Performed By: #### G TRINY #### [place] [id number] Lactate [Moles/Vol] 2.4 mmol/L High 0.4 - 2.0 [facility] Comment on above: Performed By: #### G TRINY #### [place] [address] Oxygen (Bld) [Partial pressure] 133 mm[Hg] High 85 - 95 [facility] Comment on above: Performed By: #### G TRINY #### [place] [address] PATIENT TEMPERATURE 37.0 degrees C Normal [facility] Comment on above: Result Comment: NOTE : PATIENT RESULTS ARE NOT CORRECTED FOR TEMPERATURE. Performed By: #### G TRINY #### [place] [id number] PCO2 28 mmHg Low 38 - 42 [facility] Comment on above: Performed By: #### G TRINY #### [address] [address] pH (Bld) 7.44 [pH] High 7.38 - 7.42 [facility] Comment on above: Performed By: #### G TRINY #### [place] [id number] Potassium [Moles/Vol] 3.5 mmol/L Normal 3.5 - 5.3 [facility] Comment on above: Performed By: #### G TRINY #### [address] [address] SO2 100 % Normal 94 - 100 [facility] Comment on above: Performed By: #### G TRINY #### [address] [address] Sodium [Moles/Vol] 139 mmol/L Normal 136 - 145 [facility] Comment on above: Performed By: #### G TRINY #### [address] [address] Admission Risk Screen - Adul ton 11-21-2021 Admission Risk Screen - Adult Allergies: Allergies: No Known Allergies: Patient Verification: New W ID Band Applied in my Departmentyes Patient Identity Verified Bypatient ID Band FULL Name, include Middle, spelling matches patient's ID used for verificationyes ID Band Matches Patient ID used for Verficationyes ID Band MRN Matches EMR MRNyes Visitor Restriction: Coronavirus Visitor Restriction: Reasonable restrictions to in-person visitors will be observed due to current coronavirus pandemic. Travel History: COVID-19 Screening Completedno exposure or symptoms(1) Travel or Exposure Past 30 DaysNO travel to International locations in the past 30 days Ebola AlertFor Ebola-like Symptoms: Isolate Patient and Notify Provider/Graphite Pan Drier Tender For Contact: Notify Provider/Graphite Pan Drier Tender Advance Directive: Advance Directive/DNRno (2) Advance Directive Information Givenpatient/family declined Sánchez Fall Screen: History of falling (immediate or previous)yes (25) Secondary Diagnosisyes (15) Intravenous Therapy/ Heparin/Saline Lockyes (20) Gait/Transferringnormal/be drest/wheelchair (0) Ambulatory Aidsnone/bedrest/nurse assist (0) Mental Statusoriented to own ability (0) Score: Low risk (<25). Moderate risk (25-44). High risk (>44).60 Sánchez InterventionsHIGH INTERVENTIONS *Low and Moderate Interventions Plus: * supervised toileting at all times Family Violence Screen: Are you or have you been threatened or abused physically, emotionally, or sexually by anyoneyes Has anyone ever threatened to hurt your family or your petsno Does anyone try to keep you from having/contacting other friends or doing things outside your homeno Do you feel UNSAFE going back to the place where you are livingno Do you feel anyone has exploited or taken advantage of you financially or of your personal propertyno Clinical assessment: Are there any apparent signs of injuries/behaviors that could be related to abuse/neglectno Social Service Consult for abuse/neglect needed this visityes Functional Screen: Functional Screen: In the recent/past 2-4 weeks, patient or family have noticedno issues that require a speech/language consult at this time AM-PAC- Basic Mobility/Daily Activity: Patient baseline bedboundno Turning from your back to your side while in a flat bed without using bedrailsnone Moving from lying on your back to sitting on the side of a flat bed without using bedrailsnone Moving to and from bed to chair (including a wheelchair)none Standing up from a chair using your arms (e.g. wheelchair or bedside chair) none To walk in hospital roomnone Climbing 3-5 steps with railingnone Basic Mobility - Total Score24 Putting on and taking off regular lower body clothingnone Bathing (including washing, rinsing, drying)none Putting on and taking off regular upper body clothingnone Toileting, which includes using toilet, bedpan or urinalnone Taking care of personal grooming such as brushing teethnone Eating Mealsnone Daily Activity - Total Score24 Learning Assessment (Patient): Patient is Able to be Assessed for Learningyes Factors Influencing Readiness to Learnnone Factors that Impact Ability to Learnnone Devices/Methods Used to Communicatenone Learning Preferencesverbal instruction; skill demonstration; written material; individual instruction Cultural Considerationsnone Developmental Considerationsnone Zoroastrianism Considerationsnone Learning Assessment (Other Learner): Other learner availableno Depression Screen: During the past month, have you often been bothered by feeling down, depressed or hopelessyes During the past month, have you often had little interest or pleasure in doing thingsyes Have you had any thoughts of harming anyone elseyes [place] Suicide: Risk Screen Not Applicable/Able to Answerable to be screened In the Past Month: Have you wished you were or could go to sleep and not wake upyes(1) In the Past Month: Have you had any actual thoughts of killing yourself yes(1) In the Past Month: Have you been thinking about how you might do thisyes In the Past Month: Have you had these thoughts and had some intention of acting on themyes In the Past Month: Have you started to work out or worked out the details of how to kill yourself Do you intend to carry out this planyes Lifetime: Have you ever done, started to do, or prepared to do anything to end your lifeyes Was this within the past 3 monthsyes [place] [facility] Nutrition Screen: Have you recently lost weight without tryingno Have you been eating poorly because of a decreased appetiteno Malnutrition Screening Tool Score0 Malnutrition Screening Tool RiskMST = 0 or 1 Not at risk. Eating well with little or no weight loss Nutrition Consult needed this visitno Can Patient Participate in Room Serviceyes, with assistance Patient requires Paper (more content not included)... [facility] BASIC METABOLIC PANELon 11-10 Anion gap [Moles/Vol] 16 mmol/L Normal 10 - 20 [facility] Comment on above: Performed By: #### B MP #### [address] [address] Calcium [Mass/Vol] 8.7 mg/dL Normal 8.6 - 10.3 [facility] Comment on above: Performed By: #### B MP #### [address] [address] Chloride [Moles/Vol] 109 mmol/L High 98 - 107 [facility] Comment on above: Performed By: #### B MP #### [address] [address] Creatinine [Mass/Vol] 0.73 mg/dL Normal 0.50 - 1.05 [facility] Comment on above: Performed By: #### B MP #### [address] [address] eGFR FEMALE >90 Normal >90 [facility] Comment on above: Result Comment: CALC ULATIONS OF ESTIMATED GFR ARE PERFORMED USING THE 2020 CKD-EPI STUDY REFIT EQUATION WITHOUT THE RACE VARIABLE FOR THE IDMS-TRACEABLE CREATININE METHODS. https://jasn.asnjournals.org/content//ASN.91844918 88 Performed By: #### B MP #### [address] [address] Glucose [Mass/Vol] 81 mg/dL Normal 74 - 99 [facility] Comment on above: Performed By: #### B MP #### [address] [address] HCO3 (Bld) [Moles/Vol] 22 mmol/L Normal 21 - 32 [facility] Comment on above: Performed By: #### B MP #### [address] [address] Potassium [Moles/Vol] 3.7 mmol/L Normal 3.5 - 5.3 [facility] Comment on above: Performed By: #### B MP #### [address] [address] Sodium [Moles/Vol] 143 mmol/L Normal 136 - 145 [facility] Comment on above: Performed By: #### B MP #### [address] [address] Urea nitrogen [Mass/Vol] 11 mg/dL Normal 6 - 23 [facility] Comment on above: Performed By: #### B MP #### [address] [address] CBC AND DIFFERENTIALon 11-21 Basophils (Bld) [#/Vol] 0.00 10*3/uL Normal 0.00 - 0.10 [facility] Comment on above: Performed By: #### B MP #### [address] [address] Basophils/100 WBC (Bld) 0.5 % Normal 0.0 - 2.0 [facility] Comment on above: Performed By: #### B MP #### [address] [address] Eosinophils (Bld) [#/Vol] 0.00 10*3/uL Normal 0.00 - 0.70 [facility] Comment on above: Performed By: #### B MP #### [address] [address] Eosinophils/100 WBC (Bld) 0.4 % Normal 0.0 - 6.0 [facility] Comment on above: Performed By: #### B MP #### [address] [address] Erythrocyte distribution width (RBC) [Ratio] 13.4 % Normal 11.5 - 14.5 [facility] Comment on above: Performed By: #### B MP #### [address] [address] Hematocrit (Bld) [Volume fraction] 43.4 % Normal 36.0 - 46.0 [facility] Comment on above: Performed By: #### B MP #### [address] [address] Hemoglobin (Bld) [Mass/Vol] 14.4 g/dL Normal 12.0 - 16.0 [facility] Comment on above: Performed By: #### B MP #### [address] [address] Lymphocytes (Bld) [#/Vol] 2.10 10*3/uL Normal 1.20 - 4.80 [facility] Comment on above: Performed By: #### B MP #### [address] [address] Lymphocytes/100 WBC (Bld) 32.1 % Normal 13.0 - 44.0 [facility] Comment on above: Performed By: #### B MP #### [address] [address] MCHC (RBC) [Mass/Vol] 33.1 g/dL Normal 32.0 - 36.0 [facility] Comment on above: Performed By: #### B MP #### [address] [address] MCV (RBC) [Entitic vol] 97 fL Normal 80 - 100 [facility] Comment on above: Performed By: #### B MP #### [address] [address] Monocytes (Bld) [#/Vol] 0.30 10*3/uL Normal 0.10 - 1.00 [facility] Comment on above: Performed By: #### B MP #### [address] [address] Monocytes/100 WBC (Bld) 5.0 % Normal 2.0 - 10.0 [facility] Comment on above: Performed By: #### B MP #### [address] [address] Neutrophils (Bld) [#/Vol] 4.00 10*3/uL Normal 1.20 - 7.70 [facility] Comment on above: Result Comment: Perc ent differential counts (%) should be interpreted in the context of the absolute cell counts (cells/L). Performed By: #### B MP #### [address] [address] Neutrophils/100 WBC (Bld) 62.0 % Normal 40.0 - 80.0 [facility] Comment on above: Performed By: #### B MP #### [address] [address] NUCLEATED RBC 0.1 /100 WBC Normal [facility] Comment on above: Performed By: #### B MP #### [address] [address] Platelets (Bld) [#/Vol] 228 10*3/uL Normal 150 - 450 [facility] Comment on above: Performed By: #### B MP #### [address] [address] RBC 4.50 x10E12/L Normal 4.00 - 5.20 [facility] Comment on above: Performed By: #### B MP #### [address] [address] WBC (Bld) [#/Vol] 6.5 10*3/uL Normal 4.4 - 11.3 [facility] Comment on above: Performed By: #### B MP #### [address] [address] CHEST 1 VIEWon 11-21-2021 CHEST 1 VIEW Patient Name: DORY ANDREWS STUDY: CHEST 1 VIEW; 11/21/2021 6:15 pm INDICATION: OD . COMPARISON: None. ACCESSION NUMBER(S): [id number] ORDERING CLINICIAN: WADE HERNÁNDEZ FINDINGS: CARDIOMEDIASTINAL SILHOUETTE: Cardiomediastinal silhouette is normal in size and configuration. LUNGS: No consolidation, pneumothorax, or significant effusion. ABDOMEN: No remarkable upper abdominal findings. BONES: No acute osseous changes. IMPRESSION: 1. No evidence of acute cardiopulmonary process. Electronically signed by: JOSE HENRY MD [facility] COOX PANEL, ARTERIALon 11-21 CO HGB 3.4 % Abnormal [facility] Comment on above: Result Comment: REF VALUES NONSMOKERS 0.5-1.5% SMOKERS 0.5-10.0% Performed By: #### B MP #### [place] [address] DEOXY HGB 0.4 % Normal 0.0 - 5.0 [facility] Comment on above: Performed By: #### B MP #### [place] [address] Hemoglobin (Bld) [Mass/Vol] 13.8 g/dL Normal 12.0 - 16.0 [facility] Comment on above: Performed By: #### B MP #### [place] [address] Performed By: #### G TRINY #### [place] [address] MET HGB 1.1 % Normal 0.0 - 1.5 [facility] Comment on above: Performed By: #### B MP #### [place] [address] OXY HGB 95.0 % Normal 94.0 - 98.0 [facility] Comment on above: Performed By: #### B MP #### [place] [address] Performed By: #### G TRINY #### [place] [address] SITE OF ARTERIAL PUNCTURE LT [facility] Comment on above: Performed By: #### B MP #### [address] [address] Performed By: #### G TRINY #### [address] [address] CREATINE KINASEon 11-21-2021 CK [Catalytic activity/Vol] 89 U/L Normal 0 - 215 [facility] Comment on above: Performed By: #### B MP #### [address] [address] Covid 19 Resultson 2 SARS-CoV-2 (COVID-19) RNA YAYO+probe Ql (Unsp spec) NEGATIVE COVID-19 Test Coronaviruses are common world-wide and are the cause of many common colds. SARS-COV2 is a new coronavirus that began circulating worldwide in 2019 so we are calling it COVID-19. It has been estimated that four out of five patients with COVID-19 will recover at home without the need for medical attention. Symptoms of COVID-19 may include cough, fever, shortness of breath, loss of taste or smell and other flu-like symptoms including chills, sore muscles, sore throat, and headache. Severe illness is more common in older people and people with other health problems such as high blood pressure, obesity, and immune system problems. If the test is positive, you have COVID-19. You will be contacted by the ordering physicians office and instructed to remain on home isolation, in accordance with CDC guidelines. You may also be contacted by the [facility] to see if any of your close contacts may have been exposed to the virus and need to quarantine. If the test is negative, you likely do not have COVID-19 at this time, but you still may have a different illness that can spread to other people (like Influenza, or the Flu) and could still be at risk for getting COVID-19. We recommend that you stay away from other people to limit the spread of illness until your symptoms are improving and you are fever-free for 24 hours without the use of fever lowering medications such as acetaminophen or ibuprofen. No test is 100% accurate so if you are still concerned you may have COVID-19, talk to your doctor about the need to continue to stay away from others. Medicines Unless your provider told you not to use the following: Acetaminophen (Tylenol and others) is generally safe. Anti-inflammatory medications, such as Ibuprofen (Advil or Motrin) or Naproxen (Aleve) can also be used. Msfw-blp-vsmzead cough and cold medicines can be used according to the instructions on the package. Some fzle-ode-fphteio medicines also contain acetaminophen. Make sure you are not taking more than your recommended dose. For those not hospitalized, there is no specific treatment available for this illness. Antibiotics do not treat Coronaviruses. Follow-Up Follow up with your doctor by scheduling a virtual visit or consider follow-up at one of our urgent care fever clinics. If you are having difficulty breathing, or are very weak and having difficulty standing, this is a medical emergency. Call 911 or have someone take you to the nearest emergency room immediately. If possible, wear a facemask. Additional guidance from the CDC for patients who tested POSITIVE for COVID-19 How to isolate: Isolate yourself in a specific room at home and limit your contact with others. Use a separate bathroom from other members of the household, when possible. Leave home only to get essential medical care. Do not go to work, school or public areas. Avoid using public transportation, ride-sharing, or taxis. Restrict contact with pets and other animals. If you must care for your pet or be around animals while you are sick, wash your hands before and after your interaction and wear a facemask. Make sure that shared spaces in the home have good airflow, such as by an air conditioner or an opened window, weather permitting. Personal Hygiene Procedures: Wear a face mask when in the same room as other people or pets. If a face mask interferes with your breathing, others should wear a mask when sharing space with you. Frequent hand-washing: wash your hands with soap and water for at least 20 seconds. If soap and water are not available, use alcohol-based hand geothermal operations manager. Avoid touching your eyes, nose, and mouth with unwashed hands. Household Hygiene Procedures: Avoid sharing personal household items such as dishes, glassware, cups, eating utensils, towels or bedding with other people or pets in your home. After use, these items should be washed with soap and hot water. Disinfect all high-touch surfaces every day with antibacterial cleaning solutions such as Lysol wipes, bleach, cleansers, etc. High-touch surfaces include tabletops, doorknobs, bathroom fixtures, toilets, phones, keyboards, tablets and bedside tables. Immediately clean any surfaces that may have blood, poop or body fluids on them, using antibacterial cleaning solutions such as Lysol wipes, bleach, cleansers, etc. If clothing or bedding come into contact with blood, poop or body fluids, they should be washed immediately. Follow the directions on the laundry detergent and clothing labels but hot water is recommended when possible. Stopping home isolation precautions: If possible, consult your doctor before stopping home isolation precautions. According to the CDC, you can discontinue home isolation precautions when you have met both of these criteria: Your fever and respiratory symptoms have been gone for 24 regine (more content not included)... [facility] DRUG SCREEN,URINEon 11-22-19 22 AMPHETAMINE SCREEN,U Negative Normal NEGATIVE [facility] Comment on above: Result Comment: CUTO FF LEVEL: 500 NG/ML Cross-reactivity has been reported with high concentrations of the following drugs: buproprion, chloroquine, chlorpromazine, ephedrine, mephentermine, fenfluramine, phentermine, phenylpropanolamine, pseudoephedrine, and propranolol. Performed By: #### B MP #### [place] [address] BARBITURATES SCREEN,U Negative Normal NEGATIVE [facility] Comment on above: Result Comment: CUTO FF LEVEL: 200 NG/ML Performed By: #### B MP #### [place] [address] BENZODIAZEPINES SCREEN,U Negative Normal NEGATIVE [facility] Comment on above: Result Comment: CUTO FF LEVEL: 200 NG/ML Performed By: #### B MP #### [place] [address] CANNABINOIDS SCREEN,U Negative Normal NEGATIVE [facility] Comment on above: Result Comment: CUTO FF LEVEL: 50 NG/ML Performed By: #### B MP #### [place] [address] COCAINE METABOLITE SCREEN,U Negative Normal NEGATIVE [facility] Comment on above: Result Comment: CUTO FF LEVEL: 150 NG/ML Performed By: #### B MP #### [place] [address] DRUG SCREEN COMMENT SEE BELOW [facility] Comment on above: Result Comment: Drug screen results are presumptive and should not be used to assess compliance with prescribed medication. Contact the performing [facility] laboratory to add-on definitive confirmatory testing if clinically indicated. . Toxicology screening results are reported qualitatively. The concentration must be greater than or equal to the cutoff to be reported as positive. The concentration at which the screening test can detect an individual drug or metabolite varies. The absence of expected drug(s) and/or drug metabolite(s) may indicate non-compliance, inappropriate timing of specimen collection relative to drug administration, poor drug absorption, diluted/adulterated urine, or limitations of testing. For medical purposes only; not valid for forensic use. . Interpretive questions should be directed to the laboratory medical directors. Performed By: #### B MP #### [place] [address] FENTANYL SCREEN,URINE Negative Normal [facility] Comment on above: Result Comment: CUTO FF LEVEL: 1 NG/ML The performance characteristics of this test have been determined by the individual laboratory site where testing is performed. This test has not been cleared or approved by the FDA; however, the FDA has determined that such clearance is not necessary. Performed By: #### B MP #### [place] [address] METHADONE SCREEN,U Negative Normal NEGATIVE [facility] Comment on above: Result Comment: CUTO FF LEVEL: 150 NG/ML The metabolite T-gbnex-ybllmcfvcpuxlg (LAAM) is not detected by this method in concentrations that would be found in the urine of patients on LAAM therapy. Performed By: #### B MP #### [place] [address] OPIATES SCREEN,U Negative Normal NEGATIVE [facility] Comment on above: Result Comment: CUTO FF LEVEL: 300 NG/ML The opiate screen does not detect fentanyl, meperidine, or tramadol. Oxycodone is not consistently detected (refer to Oxycodone Screen, Urine result). Performed By: #### B MP #### [address] [address] OXYCODONE SCREEN,U Negative Normal NEGATIVE [facility] Comment on above: Result Comment: CUTO FF LEVEL: 100 NG/ML This test will accurately detect both oxycodone and oxymorphone. Performed By: #### B MP #### [address] [address] PCP SCREEN,U Negative Normal NEGATIVE [facility] Comment on above: Result Comment: CUTO FF LEVEL: 25 NG/ML Cross-reactivity has been reported with dextromethorphan. Performed By: #### B MP #### [place] [id number] Electrocardiogram 12 Leadon 11-21-2021 Electrocardiogram 12 Lead Ventricular Rate 102 Atrial Rate 102 P-R Interval 130 QRS Duration 84 Q-T Interval 350 QTC Calculation(Bazett) 456 P Onida 69 R Onida 77 T Onida -18 QRS Count 17 Q Onset 221 P Onset 156 P Offset 209 T Offset 396 QTC Fredericia 417 Diagnosis Class Normal Diagnosis Please see physician note for formal interpretation confirmed by Scribe Confirmed by DAVID XIAO () on 11/22/2021 7:49:05 AM Normal [facility] GLUCOSE-POCTon 11-21-2021 Glucose [Mass/Vol] 132 mg/dL High 74 - 99 [facility] Comment on above: Performed By: #### G TRINY #### [address] [address] Glucose [Mass/Vol] 359 mg/dL High 74 - 99 [facility] Comment on above: Performed By: #### G TRINY #### [address] [address] HCG,SERUM QUALITATIVEon 11-10 HCG,SERUM QUALITATIVE Negative Normal Negative [facility] Comment on above: Performed By: #### H CGS #### [address] [address] HCG,URINEon 11-21-2021 Beta HCG ( test) Ql (U) Negative Normal Negative [facility] Comment on above: Performed By: #### B LDC #### [facility] [address] [place] [address] HEPATIC FUNCTION PANELon Albumin [Mass/Vol] 4.7 g/dL Normal 3.4 - 5.0 [facility] Comment on above: Performed By: #### B MP #### [address] [address] ALP [Catalytic activity/Vol] 70 U/L Normal 33 - 110 [facility] Comment on above: Performed By: #### B MP #### [address] [address] ALT [Catalytic activity/Vol] 21 U/L Normal 7 - 45 [facility] Comment on above: Result Comment: Amanda ents treated with Sulfasalazine may generate falsely decreased results for ALT. Performed By: #### B MP #### [address] [address] AST [Catalytic activity/Vol] 22 U/L Normal 9 - 39 [facility] Comment on above: Performed By: #### B MP #### [address] [address] Bilirubin [Mass/Vol] 0.5 mg/dL Normal 0.0 - 1.2 [facility] Comment on above: Performed By: #### B MP #### [address] [address] Bilirubin.indirect [Mass/Vol] 0.1 mg/dL Normal 0.0 - 0.3 [facility] Comment on above: Performed By: #### B MP #### [address] [address] Protein [Mass/Vol] 6.9 g/dL Normal 6.4 - 8.2 [facility] Comment on above: Performed By: #### B MP #### [address] [address] INFLUENZA A/B, COVID 2019 PC R,SYMPTOMATICon 11-21-2021 Lab Specimen Source Nasal, Nasopharyngeal [facility] Comment on above: Performed By: #### B LDC #### [facility] [address] [place] [address] INFLUENZA A, PCR Not detected Normal Not Detected [facility] Comment on above: Result Comment: Resp iratory virus testing is performed routinely by PCR for Influenza A/B and RSV. Not Detected results do not preclude Influenza A/B or RSV infections since the adequacy of sample collection or low viral burden may impact the clinical sensitivity of this test method. Performed By: #### B LDC #### [facility] [address] [place] [address] INFLUENZA B, PCR Not detected Normal Not Detected [facility] Comment on above: Result Comment: Resp iratory virus testing is performed routinely by PCR for Influenza A/B and RSV. Not Detected results do not preclude Influenza A/B or RSV infections since the adequacy of sample collection or low viral burden may impact the clinical sensitivity of this test method. Performed By: #### B LDC #### [facility] [address] [place] [id number] SARS-CoV-2 (COVID-19) RNA YAYO+probe Ql (Unsp spec) Not detected Normal Not Detected [facility] Comment on above: Result Comment: . This test has received FDA Emergency Use Authorization (EUA) and has been verified by [facility]. This test is only authorized for the duration of time that circumstances exist to justify the authorization of the emergency use of in vitro diagnostic tests for the detection of SARS-CoV-2 virus and/or diagnosis of COVID-19 infection under section 564(b)(1) of the Act, 21 U.S.C. 360bbb-3(b)(1), unless the authorization is terminated or revoked sooner. [facility] is certified under CLIA-88 as qualified to perform high complexity testing. Testing is performed in the [facility] laboratory located at [address] [place] [address]. SARS-CoV-2/Flu/RSV Multiplex Test: Fact sheet for providers: https://www.fda.gov/media/107883/download Fact sheet for patients: https://www.fda.gov/media/104256/download Performed By: #### B LDC #### [facility] [address] [place] [address] LACTATEon 11-21-2021 Lactate [Moles/Vol] 1.4 mmol/L Normal 0.4 - 2.0 [facility] Comment on above: Result Comment: Anjali puncture immediately after or during the administration of Metamizole may lead to falsely low results. Testing should be performed immediately prior to Metamizole dosing. Performed By: #### B LD #### [facility] [address] [place] [address] Lactate [Moles/Vol] 2.4 mmol/L High 0.4 - 2.0 [facility] Comment on above: Result Comment: Anjali puncture immediately after or during the administration of Metamizole may lead to falsely low results. Testing should be performed immediately prior to Metamizole dosing. Performed By: #### B #### [place] [address] [place] [id number] Order Reconciliationon 11-21 Order Reconciliation Page 1 Admission Reconciliation Document Reconciliation Type: Admission requested on behalf of Joseph Hester (Physician) done by Joseph Hester) Admission - Reconciliation: 21-Nov-2021 20:06 by: Joseph Hester) Home MedicationsEnteredLast Dose TakenReconciled with current Order Reconciliation Comment/ Additional Information cyanocobalamin 1000 mcg/mL injectable solution 1000 microgram(s) injectable every 4 [id number] Reviewed and Held lamoTRIgine 25 mg oral tablet 1 tab(s) orally 2 times a [id number]-Nov-2021 AM Reviewed and Held metFORMIN 500 mg oral tablet, extended release 2 tab(s) orally once a day [id number] AM Reviewed and Held propranolol 10 mg oral tablet 1 tab(s) orally 2 times a [id number]-Nov-2021 AM Reviewed and Held sertraline 100 mg oral tablet 1 tab(s) orally once a [id number] Reviewed and Held Tylenol 500 mg oral tablet 2 tab(s) orally every 6 hours, As [id number]-Nov-2021 AM Reviewed and Held Vitamin D3 125 mcg (5000 intl units) oral capsule 1 cap(s) orally once a day 21-Nov-2021 Reviewed and Held Additional Current Orders Dextrose 10% in Water Infusion IV Bag Volume = 500 mL Run at: 50 mL/hr Folic Acid IV Piggy Back in Sodium Chloride 0.9% 50 mLDOSE = 1 mg DailyRecommended Infusion Time: 30 minute(s) Ondansetron Injectable (ZOFRAN)DOSE = 4 mg IntraVenous Push Every 4 Hours, PRN Nausea and/or Vomiting Sodium Chloride 0.9% Injectable Flush via Peripheral LineVolume = 10 mL IntraVenous Flush Every 8 Hours and as Needed Thiamine Injectable DOSE = 100 mg IntraVenous Push Daily [facility] Patient Profile - Adult v2on 11-21-2021 Patient Profile - Adult v2 Profile: Initial Info: How to be AddressedMakayla Spoken Language PreferredEnglish Source of Informationpatient Stated Reason for AdmissionFound unresponsive Primary Contact Name and NumberTammy Chris [phone] Wants Family/Rep Notified of Admissionno Notify PCPnotify PCP Dr. Herrera CCWooster Informed of Patient Visiting Rightsyes Arrived Fromemergency department Was Admitted To in Past 90 Daysnone Employment Statusdisabled Current or Previous Servicenone Patient Belongingsremains with patient Patient Belongings Remaining with Patientclothing; cell phone/electronics; Cell phone locked in locker and church on chart Medications Brought to Hospitalyes Medication Dispositionsent to pharmacy, [facility]: Blood Avoidance/Restrictionsnone Previous Transfusion Reactionno Weight in kg73.4 kilogram(s) Weight in lpg797.8 pound(s) Weight Methodactual (measured) Scale Typebed Height in cm157.4 centimeter(s) Height in feet5 feet Height in inches1.97 inch(es) Height Methodstated BMI (kg/m2)29.626 square meter RSP Based Care: How would you like to participate in your careKeep me informed What is the number one concern for you during this hospitalizationTo get sober What is the most important thing we can do to support you during this hospitalizationHelp me get better Is there anything we need to know to best care for youI have Richards syndrome 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 for very long Substance: Smoking Statuslight user (uses <10 cig/day, OR <0.5 ppd, OR 1 can/pouch loose leaf tobacco per week, OR <0.5 vape pods per day) (1) Tobacco Cessation Education (provide if tobacco use within the last 12 mos) patient declined Alcohol Usedaily(1) Drug Usedenies (1) Health Mgmt: Symptoms/Conditions Managed at Homebehavioral health; endocrine; cardiovascular Are You no (2) Are You Currently Breastfeedingno (2) Behavioral Health Symptoms/Conditionsbipolar affective disorder; depression Behavioral Management Strategiesmedication therapy; counseling; coping strategies; community resources Behavioral Health Managementnot managed Cardiovascular Symptoms/ConditionsPotts syndrome Cardiovascular Management Strategiesmedication therapy Cardiovascular Managementmanaged Endocrine Symptoms/ConditionsPCOS Endocrine Management Strategiesmedication therapy; diet modification Endocrine Managementmanaged Barriers to Managing Healthmedication side effects; stress of chronic illness; social support Relationship/Environ: Resource/Environmental Concernsnone Primary Source of Support/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 and caser shoe 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 Lives Withfriend(s) Living Arrangementshouse Services Anticipated at Transitioncase manager of learning; mental health services Anticipated Transition T[place] Significant IndicatorsComplete Information Review: Allergies, Home Meds and Significant Events have been Reviewed and Verified with Patient/Familyyes ALLERGY, INTOLERANCE, ADVERSE EVENT: Allergies: No Known Allergies: Active Electronic Signatures: Beatriz Thomas (SAVITA) (Signed 22-Nov-2021 02:25) Authored: Initial Info, General Health, RSP Based Care, Substance, Health Mgmt, Relationship/Environ, Additional Information Last Updated: 22-Nov-2021 02:25 by Beatriz Thomas) References: 1. Data Referenced From Risk Screen - Adult Emergency 21-Nov-2021 17:53 2. Data Referenced From Triage - ED 21-Nov-2021 17:26 [facility] Provider Note - ED v3on 11-10 Provider Note - ED v3 Provider Note: Chart Review: ED NOTES ED NOTES: CC=OVERDOSE HPI= this is a 20-year-old female who suffers from chronic depression and bipolar disease who recently was switched medications. She apparently had a fight with her boyfriend and broke up with him just today she been very depressed about this and also of the burden of having to take care of her mother who is bipolar and a younger sister. He tried calling for psychiatric evaluation and did not go to the emergency department as directed. She stayed home and drink throughout the night and then today became so depressed that she took a handful of metformin handful propranolol as well as Lamictal and Zoloft tablets. She is found unresponsive by her landlord who called EMS. She was initially able to converse slightly with the police after sternal rub became more apneic in route. She presents now with multiple drug overdose and suicide attempt SH-positive for alcohol consumption PM HX-positive for depression and bipolar disease HISTORY OF PRESENTING ILLNESS DORY is a 20 year old Female and was seen by me at 21-Nov-2021 17:18 for a chief complaint of overdose (pt took unknown amount of pills today and had been drinking since 10pm last night. Pt in and out of consciousness. Admits to taking Zoloft, metformin, and propanolol)(1). Triage Information: Most recent Vital Sign Value Date Temp (F): 98.5 11-21-2021 17:26 Temp (C): 36.9 11-21-2021 17:26 PAST MEDICAL HISTORY ALLERGIES/INTOLERANCES: No Known Allergies HEALTH HISTORY: No documented data. OUTPATIENT MEDICATIONS: Home Medications Review Status for Reconciliation: Complete Med Status: Patient Currently Takes Medications Drug Name: lamoTRIgine 25 mg oral tablet Instructions: 1 tab(s) orally 2 times a day Drug Name: propranolol 10 mg oral tablet Instructions: 1 tab(s) orally 2 times a day Drug Name: Tylenol 500 mg oral tablet Instructions: 2 tab(s) orally every 6 hours, As Needed Drug Name: Vitamin D3 25 mcg (1000 intl units) oral tablet Instructions: 1 tab(s) orally once a day Drug Name: metFORMIN 500 mg oral tablet, extended release Instructions: 2 tab(s) orally once a day SIGNIFICANT EVENTS: No documented data. REVIEW OF SYSTEMS CONSTITUTIONAL: POSITIVE for: malaise Negative for: chills and fever EYES: Negative for: redness and vision changes ENMTEars: Negative for: pain Nose: Negative for: congestion and discharge Throat/Neck: Negative for: neck pain and neck stiffness CARDIOVASCULAR: Negative for: chest pain and palpitations RESPIRATORY: POSITIVE for: dyspnea Negative for: cough GASTROINTESTINAL: Negative for: abdominal pain, nausea and vomiting; GENITOURINARY: Negative for: dysuria and hematuria; MUSCULOSKELETAL: Negative for: joint pain and neck pain INTEGUMENTARY: Negative for: rash NEUROLOGICAL: POSITIVE for: altered mental status and loss of consciousness; All other systems reviewed and are negative PHYSICAL EXAM CONSTITUTIONAL: Presents unresponsive at this time she has a good radial pulse but very agonal respirations and had to be bagged HENMT: Airway patent, ears with clear tympanic membranes bilaterally. Nasal mucosa clear. Mouth with normal mucosa. Throat has no vesicles, no oropharyngeal exudates and uvula is midline. Face with no lymph node enlargement. EYES: Clear bilaterally, pupils equal, round and reactive to light. PUPILS are markedly dilated CARDIOVASCULAR: Normal rate, regular rhythm. Heart sounds S1, S2. No murmurs, rubs or gallops. PMI non-displaced. RESPIRATORY: Decreased respiratory rate with scattered rhonchi GASTROINTESTINAL: Abdomen soft, non-distended, no rebound, no guarding. Bowel sounds normal in all 4 quadrants. MUSCULOSKELETAL: Spine appears normal, range of motion is not limited, no muscle or joint tenderness. No edema of the lower extremities NEUROLOGICAL: Level of Consciousness: OBTUNDED Neck: normal, non-tender and NUCHAL RIGIDITY NIH Stroke Scale: [place] Coma Scale (baseline) Elvis Coma Scale: Verbal Response: (V1) none Eye: (E1) none Motor: (M5) localizes pain GCS Score: 7 SKIN: Skin normal color for race, warm, dry and intact. No evidence of trauma. PSYCHIATRIC: Extremely depressed and suicidal HEME/LYMPH: No adenopathy or splenomegaly. No cervical, supraclavicular or inguinal lymphadenopathy. CRITICAL CARE RESULTS: Recent Lab Results: I have reviewed these laboratory results: Drug Screen, Urine 21-Nov-2021 18:40:00 ResultValue Comments. SEE BELOW Drug screen results are presumptive and should not be used to assess compliance with prescribed medication. Contact the performing [facility] laboratory to add-on definitive confirmatory testing if clinically indicated. .Toxicology scre Amphetamine Screen, Urine PRESUMPTIVE NEGATIVE CUTOFF LEVEL: 500 NG/ML Cross-reactivity has been reported with high concentrations of the following d (more content not included)... [facility] Risk Screen - Adult Emergenc yon 11-21-2021 Risk Screen - Adult Emergency Preferred Language: Preferred Language: Preferred Language for Discussing Health Care (patient/designee)Surinamese Advanced Directives: Advance Directive/DNRno Family Violence Adult: Abuse Screen: Are you or have you been threatened or abused physically, emotionally, or sexually by anyoneno Learning Assessment (Patient): Learning Assessment (Patient): Patient is Able to be Assessed for Learningno Reason Unable to Assessunconscious Learning Assessment (Other Learner): Learning Assessment (Other Learner): Other learner availableno Pressure Injury/TB/Substance: Pressure Injury: Do you have a coughno Smoking Statuslight user (uses <10 cig/day, OR <0.5 ppd, OR 1 can/pouch loose leaf tobacco per week, OR <0.5 vape pods per day) Tobacco Cessation Education (provide if tobacco use within the last 12 mos) patient declined Alcohol Usedaily Drug Usedenies Admission Risk Screen: Significant IndicatorsComplete CAGE: CAGE: Is this an injured patient at a Trauma Center (HARINDER/Brooklynn/Sagar/Phyllis/Mustapha Olvera/Sandy): no Electronic Signatures: Isabel Calvert (RN) (Signed 21-Nov-2021 17:54) Authored: Preferred Language, Advanced Directives, Family Violence Adult, Learning Assessment (Patient), Learning Assessment (Other Learner), Pressure Injury/TB/Substance, Pressure Injury, CAGE Last Updated: 21-Nov-2021 17:54 by Isabel Calvert (SAVITA) [facility] SALICYLATEon 11-21-2021 SALICYLATE <3 Normal 4 - 20 [facility] Comment on above: Performed By: #### S ALI #### [place] [address] TROPONIN I, HIGH SENSITIVITY on 11-21-2021 TROPONIN I, HIGH SENSITIVITY <3 Normal 0 - 13 [facility] Comment on above: Result Comment: . Less than 99th percentile of normal range cutoff- Female and children under 18 years old <14 ng/L; Male <21 ng/L: Negative Repeat testing should be performed if clinically indicated. . Female and children under 18 years old 14-50 ng/L; Male 21-50 ng/L: Consistent with possible cardiac damage and possible increased clinical risk. Serial measurements may help to assess extent of myocardial damage. . >50 ng/L: Consistent with cardiac damage, increased clinical risk and myocardial infarction. Serial measurements may help assess extent of myocardial damage. . NOTE: Children less than 1 year old may have higher baseline troponin levels and results should be interpreted in conjunction with the overall clinical context. . NOTE: Troponin I testing is performed using a different testing methodology at [facility] than at other [facility] hospitals. Direct result comparisons should only be made within the same method. Performed By: #### B [facility] #### [facility] [address] [place] [address] Triage - EDon 11-21-2021 Triage - ED Quick Triage: Are You no Are You Currently Breastfeedingno Chart Review: ARRIVAL INFORMATION Mode of Arrival: ambulance Agency Name: [facility] CHIEF COMPLAINT DORY ANDREWS is a Female patient with a chief complaint of overdose (pt took unknown amount of pills today and had been drinking since 10pm last night. Pt in and out of consciousness. Admits to taking Zoloft, metformin, and propanolol). Triage Date/Time: 21-Nov-2021 17:20 MAITE: 1 Pain Rating (0-10): 0 = None Vital Signs: Temperature: 98.5F ( 36.9C) taken temporal Height: 5 feet 1.00 inches. 154.9 CM Weight: 150.3 pounds. Calculated 68.2 kg. (stated) Calculated BMI (kg/m2): 28.423 Calculated BSA (m2) 1.71 Patient has homicidal thoughts: no Symptom Notes: . Symptoms Are POSITIVE For: confusion. Symptoms Are Negative For: agitated, diaphoresis, dyspnea, headache, loss of consciousness, numbness, seizure, shivering and vomiting. Risk Screens Suicide Risk Screen In the Past Month: Have you wished you were or wished you could go to sleep and not wake up yes In the Past Month: Have you had any actual thoughts of killing yourself yes In the Past Month: Have you been thinking about how you might do this yes In the Past Month: Have you had these thoughts and had some intention of acting on them yes In the Past Month: Have you started to work out or worked out the details of how to kill yourself Do you intend to carry out this plan yes In Your Lifetime: Have you ever done anything, started to do anything, or prepared to do anything to end your life yes Was this within the past 3 months yes Suicide Risk Interventions Low Suicide Risk Interventions: consider behavioral health resources will be given at discharge Moderate Suicide Risk Interventions: Interventions initiated: comfort care provided, items from room which may be used to harm self removed, patient placed in an easily observable room with curtain remaining open, patient placed in gown and wanded, provider notified, remaining risks identified and mitigated, therapeutic diversion offered (puzzles, games, journaling, TV blank box) home medication list collected and shared with provider; hourly behavioral assessment performed and visitors limited when necessary and personal items screened High Suicide Risk Interventions: patient under constant observation at all timesicon high Items removed from room: cleaning solutions/chemicals; loose cords (monitor cords, electric, tubing) and scissors Remaining risks identified and mitigated: bed/stretcher and monitors and cords Sánchez Fall Scale Screening Has the patient fallen before (or is the patient in the ED as a result of a fall) has not had a fall Does the patient have an impaired gait has impaired gait Is the patient cognitively impaired cognitively impaired Sánchez Fall Scale History of falling (immediate or previous) no (0) Secondary Diagnosis yes (15) Intravenous Therapy/ Heparin/Saline Lock yes (20) Gait/Transferring impaired (20) Ambulatory Aids none/bedrest/nurse assist (0) Mental Status overestimates/forgets limitations (15) Sánchez Fall Risk Score: 70 Interventions: Sánchez Fall Interventions: HIGH INTERVENTIONS *Low and Moderate Interventions Plus: * supervised toileting at all times TRAVEL HISTORY Travel History Coronavirus Screening: no exposure or symptoms Travel Exposure History: NO travel to International locations in the past 30 days PAIN Pain Scale Used: GABBY Pain Rating (0-10): 0 = None Past Medical History: Past Medical History Reviewedyes Electronic Signatures: Isabel Calvert) (Signed 21-Nov-2021 17:52) Entered: Risk Screens, Pain, Travel History, Chart Review, Scores, Past Medical History Authored: Quick Triage, Risk Screens, Pain, Travel History, Chart Review, Scores, Past Medical History Last Updated: 21-Nov-2021 17:52 by Isabel Calvert) [facility] UA MICROSCOPICon 11-21-2021 RBC (U) [#/Vol] /uL Normal 0-5 [facility] Comment on above: Performed By: #### B LDC #### [facility] [address] [place] [address] SQUAMOUS EPITH. CELLS <1 [facility] Comment on above: Performed By: #### B LDC #### [facility] [address] [place] [address] WBC None Normal 0-5 [facility] Comment on above: Performed By: #### B LDC #### [facility] [address] [place] [address] URINALYSISon 11-21-2021 Appearance (U) CLEAR Normal CLEAR [facility] Comment on above: Performed By: #### B LDC #### [facility] [address] [place] [address] Bilirubin Ql (U) Negative Normal NEGATIVE [facility] Comment on above: Performed By: #### B LDC #### [facility] [address] [place] [address] Color (U) Straw Normal STRAW,YELLOW [facility] Comment on above: Performed By: #### B LDC #### [facility] [address] [place] [address] Glucose Ql (U) >=500(3+) Abnormal NEGATIVE [facility] Comment on above: Performed By: #### B LDC #### [facility] [address] [place] [address] Hemoglobin Ql (U) SMALL(1+) Abnormal NEGATIVE [facility] Comment on above: Performed By: #### B LDC #### [facility] [address] [place] [address] Ketones Ql (U) Negative Normal NEGATIVE [facility] Comment on above: Performed By: #### B LDC #### [facility] [address] [place] [address] Leukocyte esterase Test strip Ql (U) Negative Normal NEGATIVE [facility] Comment on above: Performed By: #### B LDC #### [facility] [address] [place] [address] Nitrite Ql (U) Negative Normal NEGATIVE [facility] Comment on above: Performed By: #### B LDC #### [facility] [address] [place] [address] pH (U) 6.0 [pH] Normal 5.0 - 8.0 [facility] Comment on above: Performed By: #### B LDC #### [facility] [address] [place] [address] Protein Ql (U) Negative Normal NEGATIVE [facility] Comment on above: Performed By: #### B LDC #### [facility] [address] [place] [address] Specific gravity (U) [Rel density] 1.005 Normal 1.005 - 1.035 [facility] Comment on above: Performed By: #### B LDC #### [facility] [address] [place] [address] Urobilinogen (U) [Mass/Vol] mg/dL Normal 0.0 - 1.9 [facility] Comment on above: Performed By: #### B LDC #### [facility] [address] [place] [address] BMPon 06-02-2021 Anion gap [Moles/Vol] 9 mmol/L Normal 5-16 [facility] Comment on above: Order Comment: Campu s: M Performed By: #### L 500.80725, L500.44266, L500.10341 #### [facility] [address] [place] [address] Calcium [Mass/Vol] 9.8 mg/dL Normal 8.5-10.5 [facility] Comment on above: Order Comment: Campu s: M Result Comment: NOTE NEW NORMAL RANGE DUE TO REAGENT CHANGE Performed By: #### L 500.18897, L500.35007, L500.33920 #### [facility] [address] [place] [address] Chloride [Moles/Vol] 106 mmol/L Normal 98-107 [facility] Comment on above: Order Comment: Campu s: M Performed By: #### L 500.54659, L500.26287, L500.19937 #### [facility] [address] [place] [address] CO2 [Moles/Vol] 25.0 mmol/L Normal 21-32 [facility] Comment on above: Order Comment: Jose Guadalupeu s: M Performed By: #### L 500.97806, L500.97418, L500.38006 #### [facility] [place] [address] Creatinine [Mass/Vol] 0.75 mg/dL Normal 0.510-0.950 [facility] Comment on above: Order Comment: Campu s: M Result Comment: Amanda ents receiving either N-Acetylcysteine (NAC) or Metamizole prior to venipuncture, may have falsely depressed results. Performed By: #### L 500.76314, L500.98464, L500.25810 #### [facility] [address] [place] [address] Glucose [Mass/Vol] 121 mg/dL High 70-100 [facility] Comment on above: Order Comment: Campu s: M Result Comment: 70-1 00- Normal Fasting; 100-125 Impaired Fasting; greater than 126 on more than one result- Diabetes. ADA guidelines. Results may be falsely elevated after the administration of Sulfapyridine. Results may be falsely depressed after the administration of Sulfasalazine. Performed By: #### L 500.76999, L500.88684, L500.84666 #### [facility] [address] [place] [address] Potassium [Moles/Vol] 3.5 mmol/L Normal 3.5-5.1 [facility] Comment on above: Order Comment: Campu s: M Result Comment: Slig ht Hemolysis, Result may be affected. Performed By: #### L 500.42760, L500.07020, L500.84833 #### [facility] [place] [id number] Sodium [Moles/Vol] 140 mmol/L Normal 136-145 [facility] Comment on above: Order Comment: Campu s: M Performed By: #### L 500.71545, L500.88486, L500.00625 #### [facility] [address] [place] [address] Urea nitrogen [Mass/Vol] 13 mg/dL Normal 7-26 [facility] Comment on above: Order Comment: Campu s: M Performed By: #### L 500.89961, L500.79480, L500.96704 #### [facility] [address] [place] [address] Urea nitrogen/Creatinine [Mass ratio] 17 mg/mg Normal 15-24 [facility] Comment on above: Order Comment: Campu s: M Performed By: #### L 500.58210, L500.50449, L500.92721 #### [facility] [address] [place] [address] CBC W/DIFFon 06-02-2021 BASO ABS 0.00 K/CU MM Normal 0-0.2 [facility] Comment on above: Order Comment: Campu s: M Performed By: #### L 200.32757 #### [facility] [address] [place] [address] Basophils/100 WBC (Bld) 0.2 % Normal 0-2 [facility] Comment on above: Order Comment: Campu s: M Performed By: #### L 200.91583 #### [facility] [address] [place] [address] EOS ABS 0.10 K/CU MM Normal 0-0.5 [facility] Comment on above: Order Comment: Campu s: M Performed By: #### L 200.45599 #### [facility] [address] [place] [address] Eosinophils/100 WBC (Bld) 1.0 % Normal 0-5 [facility] Comment on above: Order Comment: Campu s: M Performed By: #### L 200.87403 #### [facility] [address] [place] [address] Erythrocyte distribution width (RBC) [Ratio] 12.3 % Normal 11-14.5 [facility] Comment on above: Order Comment: Campu s: M Performed By: #### L 200.63200 #### [facility] [address] [place] [address] Hematocrit (Bld) [Volume fraction] 42.8 % Normal 35.0-47.0 [facility] Comment on above: Order Comment: Campu s: M Performed By: #### L 200.22955 #### [facility] [address] [place] [address] Hemoglobin (Bld) [Mass/Vol] 14.5 g/dL Normal 11.5-15.5 [facility] Comment on above: Order Comment: Campu s: M Performed By: #### L 200.99790 #### [facility] [address] [place] [address] IMMATR GRAN ABS 0.00 K/CU MM Normal Less than 2 [facility] Comment on above: Order Comment: Campu s: M Performed By: #### L 200.71444 #### [facility] [address] [place] [address] IMMATURE GRAN % 0.1 % Normal Less than 2 [facility] Comment on above: Order Comment: Campu s: M Performed By: #### L 200.33181 #### [facility] [address] [place] [address] LYMPH ABS 1.80 K/CU MM Normal 0.9-4.4 [facility] Comment on above: Order Comment: Campu s: M Performed By: #### L 200.49135 #### [facility] [address] [place] [address] Lymphocytes/100 WBC (Bld) 22.6 % Normal 20-40 [facility] Comment on above: Order Comment: Campu s: M Performed By: #### L 200.23611 #### [facility] [address] [place] [address] MCHC (RBC) [Mass/Vol] 33.9 g/dL Normal 32.0-36.0 [facility] Comment on above: Order Comment: Campu s: M Performed By: #### L 200.04187 #### [facility] [address] [place] [address] MCV (RBC) [Entitic vol] 96.0 fL Normal 80.0-99.0 [facility] Comment on above: Order Comment: Campu s: M Performed By: #### L 200.35205 #### [facility] [address] [place] [address] MONO ABS 0.50 K/CU MM Normal 0.1-1.1 [facility] Comment on above: Order Comment: Campu s: M Performed By: #### L 200.75495 #### [facility] [address] [place] [address] Monocytes/100 WBC (Bld) 5.8 % Normal 2-10 [facility] Comment on above: Order Comment: Campu s: M Performed By: #### L 200.53848 #### [facility] [address] [place] [address] NEUTROPHIL ABS 5.70 K/CU MM Normal 2.0-8.3 [facility] Comment on above: Order Comment: Campu s: M Performed By: #### L 200.13753 #### [facility] [address] [place] [address] Neutrophils/100 WBC (Bld) 70.3 % Normal 45-75 [facility] Comment on above: Order Comment: Campu s: M Performed By: #### L 200.34710 #### [facility] [address] [place] [address] Nucleated RBC/100 WBC (Bld) [Ratio] 0.0 % Normal Less than 1 [facility] Comment on above: Order Comment: Campu s: M Performed By: #### L 200.14139 #### [facility] [address] [place] [address] Platelet mean volume (Bld) [Entitic vol] 10.3 fL Normal 9.4-12.4 [facility] Comment on above: Order Comment: Campu s: M Performed By: #### L 200.98972 #### [facility] [address] [place] [address] PLT 239 K/CU MM Normal 150-450 [facility] Comment on above: Order Comment: Campu s: M Performed By: #### L 200.53843 #### [facility] [address] [place] [address] RBC 4.46 M/CU MM Normal 3.90-5.30 [facility] Comment on above: Order Comment: Campu s: M Performed By: #### L 200.05313 #### [facility] [address] [place] [address] WBC 8.2 K/CUMM Normal 4.5-11.0 [facility] Comment on above: Order Comment: Campu s: M Performed By: #### L 200.46677 #### [facility] [address] [place] [address] CT ANG THOR W/POST PROCon CT ANG THOR W/POST PROC EXAMINATION: CHEST CT WITH CONTRAST (PULMONARY EMBOLISM PROTOCOL) CLINICAL HISTORY: Shortness of breath, chest pain Technique: Spiral CT acquisition of the chest from the thoracic inlet to the upper abdomen following IV contrast. Axial 1 and 3 mm thick slices plus coronal and sagittal reformatted images. MQ: CTCP_5 Contrast: [address] Radiation dose: Integrated Dose-Length Product (DLP) for this visit = 491.97 mGy*cm CT Dose Reduction Employed: Automated exposure control Comparison: No relevant prior studies available. RESULT: Limitations: None. Evaluation for thromboembolic disease: - Right heart chambers: No thromboembolic disease. - Main pulmonary arteries: No thromboembolic disease. - Lobar pulmonary arteries: No thromboembolic disease. - Segmental pulmonary arteries: No thromboembolic disease. - Subsegmental pulmonary arteries: No thromboembolic disease. - Additional pulmonary artery findings: The main pulmonary artery is normal in caliber. Lines, tubes, and devices: None. Lung parenchyma and airways: No consolidation. No suspicious pulmonary nodule. The central airways are patent. Pleural space: No pleural effusion. No pleural thickening. Lower neck, lymph nodes, and mediastinum: The imaged thyroid gland is normal. No lymphadenopathy in the supraclavicular, axillary, mediastinal, or hilar regions. Heart, pericardium, and thoracic vessels: The thoracic aorta is normal in caliber. The cardiac chambers are normal in size. No coronary artery atherosclerotic calcifications are noted, although the study is not optimized for coronary assessment. No pericardial effusion or thickening. Bones and soft tissues: No destructive bone lesion. Chest wall is unremarkable. Upper abdomen: There is diffusely fatty liver. Calibration Tester (topogram) images: No additional findings. IMPRESSION: NO CT EVIDENCE OF PULMONARY EMBOLISM. NO CT EVIDENCE OF ACUTE CARDIOPULMONARY PROCESS. This report was electronically signed by Zunilda Zepeda 06/02/2021 6:58 PM Reported By: ZUNILDA ZEPEDA MD Signed By: ZUNILDA ZEPEDA MD [facility] CT HEAD/BRAIN W/O CONon - CT HEAD/BRAIN W/O CON EXAMINATION: CT HEAD/BRAIN W/O CON CLINICAL HISTORY: Syncope TECHNIQUE: Serial axial images without IV contrast were obtained from the vertex to the foramen magnum. MQ: CTBWO_3 CT Radiation dose: Integrated Dose-Length Product (DLP) for this visit = 653.82 mGy*cm CT Dose Reduction Employed: Automated exposure control COMPARISON: None. RESULT: Post-operative change: None. Acute change: No evidence of an acute infarct or other acute parenchymal process. Hemorrhage: No evidence of acute intracranial hemorrhage. ECASS hemorrhagic transformation score: Not Applicable Mass Lesion / Mass Effect: There is no evidence of an intracranial mass or extraaxial fluid collection. No significant mass effect. Chronic change: None apparent. Parenchyma: There is no significant volume loss. The brain parenchyma is otherwise within normal limits for age. Ventricles: The ventricles are within normal limits of size and configuration for age. Paranasal sinuses and skull base: The visualized paranasal sinuses are grossly clear. The skull base and imaged soft tissues are unremarkable. Calibration Tester (topogram) images: No additional findings. IMPRESSION: NO CT EVIDENCE OF ACUTE INTRACRANIAL PROCESS. This report was electronically signed by Zunilda Zepeda 06/02/2021 6:49 PM Reported By: ZUNILDA ZEPEDA MD Signed By: ZUNILDA ZEPEDA MD [facility] EKGon 06-02-2021 Electrocardiogram Procedure Date and T jesenia: 06/02/211725 Test Reason : STAT Blood Pressure : / mmHG Vent. Rate : 087 BPM Atrial Rate : 087 BPM P-R Int : 126 ms QRS Dur : 086 ms QT Int : 388 ms P-R-T Axes : 037 050 -12 degrees QTc Int : 466 ms Normal sinus rhythm with sinus arrhythmia Nonspecific T wave abnormality Abnormal ECG No previous ECGs available Confirmed by MELINDA NIEVES A. ([id number]) on 06/03/2021 10:24:43 PM Referred By: Tank Ruiz Confirmed By:Zechariah NIEVES M.D.FACC Malcolm DDandT: 06/02/211725 TDandT: [facility] PATIENT NAME: DORY ANDREWS [facility] Dr[address] Yadav MEDICAL REC #: [id number] [place] [address] ADMIT DATE: DISCHARGE DATE: 06/02/21 ATTENDING PHY: Tank Ruiz MD ELECTROCARDIOGRAM REPORT CLB cc: [facility] PATIENT NAME: DORY ANDREWS [facility] Dr[address] Yadav MEDICAL REC #: [id number] [place] [address] ADMIT DATE: DISCHARGE DATE: 06/02/21 ATTENDING PHY: Tank Ruiz MD ELECTROCARDIOGRAM REPORT Normal [facility] Jorge L Mcneil 06-02-2021 EMERGENCY PHYSICIAN REPORT This is a preliminary report only, as the practitioner review and authentication has not occurred. Normal [facility] ER PHYSICIAN ASSESSMENT RECORDS : FlexChartData Event Time: 06/02/2021 17:35 Status: Signed [facility] Dory Andrews [[id number]] Attending Physician 2001 Chart (V2b) Chart created at 06/02/2021 17:26 by Tank Ruiz Chart closed at 06/03/2021 00:25 Entry in Emergency Department at 06/02/2021 16:45, departure at 06/02/2021 19:58 Patient Name: Dory Andrews Record Number: [id number] Date: 06/02/2021 17:26 Entered Department at: 06/02/2021 16:45 Patient Seen at: 06/02/2021 17:07 Chief Complaint:SYNCOPAL EPISODE/X3 TODAY/ X7 IN LAST WEEK/ HX OF VASOVAGAL RESPONSE/ PT STATES SHE GETS DIZZY AND PASSES OUT/ PT C/O GENERALWEAKNESS/ SYCOPE LASTS ABOUT 1 MINUTE Triage Note reviewed and Initial Vital Signs reviewed. Temperature: 98.1 F (36.7 C). Pulse: 80. Respiratory Rate: 18. Blood-pressure: 134/73. Oxygen Saturation: 98%. History of Present Illness: 20-Year-old female presents with multiple syncopal episodes, his pattern of at least 3 times today, 1 of which was witnessed by EMS. Previous to that, has passed out multiple times this week and even the last couple of months. 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 They are referring her to her water analyst but she is not able to see them until July. They told her to drink plenty of fluids which she said she is been doing but still continues to pass out. States that she does also get exertional chest pain and dyspnea. She did hit her 1 she fell at 1 point, while she was in a psych unit, last week for depression and anxiety. Also reports feeling very generally weak. She was told that she had a B12 deficiency by her TIN STACKER and she is recently started B12 injections on a monthly basis. She denies any possibility of . She denies any abdominal pain, vomiting or diarrhea. States that sometimes she can tell that she is going to pass out but not all the time. Usually she will get a prodrome of feeling warm, dizzy/lightheaded, ringing in the ears, tunnel vision, and then she will pass out. Reports that she does have some remote family history of heart disease but no sudden premature unexplained cardiac . Does report that she is a recovering alcoholic, does use tobacco, had previously used cocaine but none for several months. Review of Systems. All other systems reviewed and negative.. Medications: LAMICTAL, PROZAC, LAMICTAL, PROZAC, LAMICTAL, PROZAC, LAMICTAL, PROZAC Allergies: No Known Allergies No Known Allergies No Known Allergies No Known Allergies Social History: Reviewed RN Note. Physical Examination: General: Alert and Well Developed HEENT: Normal ENT inspection.Face symmetrical [facility] PATIENT NAME: DORY ANDREWS [facility] MEDICAL REC #: [id number] [place] [address] EMERGENCY DEPARTMENT REPORT EMERGENCY DEPARTMENT PHYSICIAN speech normal, pupils equal, no obvious evidence of trauma. Neck: Supple Respiratory: No Resp Distress and Normal Breath Sounds Cardio-Vascular: No murmur and RRR Abdomen: Non-tender and Soft Extremity: No edema Neurological: Arms and legs are generally weak with a hard time lifting arms or legs off the bed. She is awake, alert and appropriate. Skin: No rash, Warm and Dry Cardiogram: Interpreted by me. Read Time: 06/02/2021 17:30 Rate NormalRhythm Sinus RhythmAxis NormalIntervals NormalST/T Non-Specific ST Changes QRS: Voltages appear to be mildly increased but not meeting criteria for LVH ST/T: There is some subtle ST depression laterally, some T wave flattening/inversions laterally, most noted in the lateral precordial leads, possibly some mild ST depression inferiorly Comparison: No old Cardiogram available for comparison Imaging Study Obtained: CT (HEAD/BRAIN) WO CONT Imaging Study Obtained: CT ANGIO (THORAX) FOR PE Medical Decision Making 20-Year-old female presents with symptoms as above. On exam she is in no distress and appears well, but initial vital signs are normal, pulse ox is 98 on room air which I interpret as normal. Differential diagnosis would include POTS syndrome, dehydration, orthostatic syncope, cardiogenic cause given that she does report chest pain and shortness of breath associated with syncope, PE. There is no evidence of a neurogenic cause. I did also interpret the patients twelve-lead EKG obtained by EMS, (more content not included)... Normal [facility] GFR ESTon 06-02-2021 IF AMER Greater than 60 Normal [facility] Comment on above: Order Comment: Carlos s: M Performed By: #### L 500.31501, L500.74386, L500.65823 #### [facility] [address] [place] [address] IF non-AFR AMER Greater than 60 Normal [facility] Comment on above: Order Comment: Jose Guadalupeu s: M Performed By: #### L 500.24184, L500.07303, L500.15907 #### [facility] [address] [place], [place] [id number] HCGon 06-02-2021 HCG SER RESULT Negative Normal NEGATIVE [facility] Comment on above: Order Comment: Campu s: M Performed By: #### L 500.09578, L500.28702, L500.87689 #### [facility] [address] [place] [address] TROPONIN Ion 06-02-2021 Troponin I.cardiac [Mass/Vol] 2.5 ng/mL Normal 0-34 [facility] Comment on above: Order Comment: Campu s: M Result Comment: NOTE NEW NORMAL RANGE DUE TO REAGENT CHANGE This assay uses different antibodies than our current assay, and assays, even by the same trader may recognize different regions of the antibody and cannot be used interchangeably. Expect results of this assay to run higher than the previous assay. Performed By: #### L 550.46693 #### [facility] [address] [place] [address] UA COMPLETEon 06-02-2021 Color (U) Yellow Normal [facility] Comment on above: Order Comment: Campu s: M Performed By: #### L 600.68250 #### [facility] [address] [place] [address] Glucose (U) [Mass/Vol] Negative Normal NORMAL [facility] Comment on above: Order Comment: Campu s: M Performed By: #### L 600.16381 #### [facility] [address] [place], [place] [id number] UA APPEARANCE Clear Normal CLEAR [facility] Comment on above: Order Comment: Campu s: M Performed By: #### L 600.08266 #### [facility] [address] [place], [place] [id number] UA BILIRUBIN Negative Normal NEGATIVE [facility] Comment on above: Order Comment: Campu s: M Performed By: #### L 600.94874 #### [facility] [address] [place] [address] UA BLOOD Negative Normal NEGATIVE [facility] Comment on above: Order Comment: Campu s: M Performed By: #### L 600.53734 #### [facility] [address] [place] [address] UA KETONE Negative Normal NEGATIVE [facility] Comment on above: Order Comment: Campu s: M Performed By: #### L 600.14066 #### [facility] [address] [place] [address] UA LK ESTERASE Negative Normal NEGATIVE [facility] Comment on above: Order Comment: Campu s: M Performed By: #### L 600.87191 #### [facility] [address] [place] [address] UA NITRITE Negative Normal NEGATIVE [facility] Comment on above: Order Comment: Campu s: M Performed By: #### L 600.72349 #### [facility] [address] [place] [address] UA PH 6.0 Normal 5-6 [facility] Comment on above: Order Comment: Campu s: M Performed By: #### L 600.36983 #### [facility] [address] [place] [address] UA PROTEIN Negative Normal NEGATIVE [facility] Comment on above: Order Comment: Campu s: M Performed By: #### L 600.26407 #### [facility] [address] [place] [address] UA SPEC GRAV 1.013 Normal 1.005-1.030 [facility] Comment on above: Order Comment: Campu s: M Performed By: #### L 600.86958 #### [facility] [address] [place] [address] UA UROBILINOGEN Negative Normal NORMAL [facility] Comment on above: Order Comment: Campu s: M Performed By: #### L 600.06406 #### [facility] [address] [place] [address] UR DRUG ABUSEon 06-02-2021 UR AMPH Negative Normal Fbpjcy=4406 [facility] Comment on above: Order Comment: Campu s: M Performed By: #### L 600.43379 #### [facility] [address] [place] [address] UR LISA Negative Normal Xtfizv=998 [facility] Comment on above: Order Comment: Campu s: M Performed By: #### L 600.79741 #### [facility] [address] [place] [address] UR LIDIA Negative Normal Vcjkaq=455 [facility] Comment on above: Order Comment: Campu s: M Performed By: #### L 600.74106 #### [facility] [address] [place] [address] UR ANA/THC Negative Normal Cutoff=50 [facility] Comment on above: Order Comment: Campu s: M Performed By: #### L 600.61932 #### [facility] [address] [place] [address] UR GENESIS Negative Normal Xvrftu=417 [facility] Comment on above: Order Comment: Campu s: M Performed By: #### L 600.91875 #### [facility] [address] [place] [address] UR OPIAT Negative Normal Favdfv=216 [facility] Comment on above: Order Comment: Campu s: M Performed By: #### L 600.69100 #### [facility] [address] [place] [address] UR PCP Negative Normal Cutoff=25 [facility] Comment on above: Order Comment: Campu s: M Performed By: #### L 600.66810 #### [facility] [address] [place] [address] DRAB COMMENT Normal [facility] Comment on above: Order Comment: Carlos quinteros: Julita Result Comment: [facility] [employer] results are qualitative, providing a preliminary analytical result. A positive result for an assay should be confirmed by another nonimmunological, reference method. A negative result indicates that the assay material is either not present, or present at levels below the cutoff threshold for the analytical method range (AMR) validation. Performed By: #### L 600.54580 #### [facility] [address] [place] [id number] .Auto Diffon 05-27-2021 Basophil, Absolute 0.10 10 3/mcL Normal 0.00-0.27 [facility] ([place]) Comment on above: Performed By: #### A DIFF, CMP, CBC, ERDS, GFR, ANEU #### [address] [address] Basophils/100 WBC (Bld) 0.5 % Normal 0.0-2.5 [facility] ([place]) Comment on above: Performed By: #### A DIFF, CMP, CBC, ERDS, GFR, ANEU #### [address] [address] Eosinophil, Absolute 0.10 10 3/mcL Normal 0.00-0.65 [facility] ([place]) Comment on above: Performed By: #### A DIFF, CMP, CBC, ERDS, GFR, ANEU #### [address] [address] Eosinophils/100 WBC (Bld) 1.3 % Normal 0.0-6.0 [facility] ([place]) Comment on above: Performed By: #### A DIFF, CMP, CBC, ERDS, GFR, ANEU #### [address] [address] Lymphocyte, Absolute 2.10 10 3/mcL Normal 0.90-4.32 [facility] ([place]) Comment on above: Performed By: #### A DIFF, CMP, CBC, ERDS, GFR, ANEU #### [address] [address] Lymphocytes/100 WBC (Bld) 22.2 % Normal 20.0-40.0 [facility] ([place]) Comment on above: Performed By: #### A DIFF, CMP, CBC, ERDS, GFR, ANEU #### [address] [address] Monocyte, Absolute 0.70 10 3/mcL Normal 0.09-1.40 [facility] ([place]) Comment on above: Performed By: #### A DIFF, CMP, CBC, ERDS, GFR, ANEU #### [address] [address] Monocytes/100 WBC (Bld) 6.8 % Normal 2.0-13.0 [facility] ([place]) Comment on above: Performed By: #### A DIFF, CMP, CBC, ERDS, GFR, ANEU #### [address] [address] Neutrophils/100 WBC (Bld) 69.2 % Normal 50.0-75.0 [facility] ([place]) Comment on above: Performed By: #### A DIFF, CMP, CBC, ERDS, GFR, ANEU #### [address] [address] .GFRon 05-27-2021 GFR >60 Normal [facility] ([place]) Comment on above: Result Comment: GFR Population mean for , Non- Americans Ages 20-29 = 116 mL/min/1.73 sq.m. Ages 30-39 = 107 mL/min/1.73 sq.m. Ages 40-49 = 99 mL/min/1.73 sq.m. Ages 50-59 = 93 mL/min/1.73 sq.m. Ages 60-69 = 85 mL/min/1.73 sq.m. Ages 70+ = 75 mL/min/1.73 sq.m. Chronic Kidney Disease: Less than 60 mL/min/1.73 square meters End Stage Renal Disease: Less than 15 mL/min/1.73 square meters Performed By: #### A DIFF, CMP, CBC, ERDS, GFR, ANEU #### [address] [address] GFR Non- >60 Normal [facility] ([place]) Comment on above: Result Comment: GFR Population mean for , Non- Americans Ages 20-29 = 116 mL/min/1.73 sq.m. Ages 30-39 = 107 mL/min/1.73 sq.m. Ages 40-49 = 99 mL/min/1.73 sq.m. Ages 50-59 = 93 mL/min/1.73 sq.m. Ages 60-69 = 85 mL/min/1.73 sq.m. Ages 70+ = 75 mL/min/1.73 sq.m. Chronic Kidney Disease: Less than 60 mL/min/1.73 square meters End Stage Renal Disease: Less than 15 mL/min/1.73 square meters Performed By: #### A DIFF, CMP, CBC, ERDS, GFR, ANEU #### [address] [address] .NEUABSon 05-27-2021 Neutrophil, Absolute 6.70 10 3/mcL Normal 2.25-8.10 [facility] ([place]) Comment on above: Performed By: #### A DIFF, CMP, CBC, ERDS, GFR, ANEU #### [place] [address] CBCon 05-27-2021 Erythrocyte distribution width (RBC) [Ratio] 13.3 % Normal 11.5-15.5 [facility] ([place]) Comment on above: Performed By: #### A DIFF, CMP, CBC, ERDS, GFR, ANEU #### [place] [address] Hematocrit (Bld) [Volume fraction] 42.0 % Normal 34.0-46.0 [facility] ([place]) Comment on above: Performed By: #### A DIFF, CMP, CBC, ERDS, GFR, ANEU #### [address] [address] Hgb 14.2 G/dL Normal 12.0-16.0 [facility] ([place]) Comment on above: Performed By: #### A DIFF, CMP, CBC, ERDS, GFR, ANEU #### [place] [address] MCH (RBC) [Entitic mass] 32.6 pg Normal 27.0-33.0 [facility] ([place] Comment on above: Performed By: #### A DIFF, CMP, CBC, ERDS, GFR, ANEU #### [place] [address] MCHC 33.8 G/dL Normal 32.0-36.0 [facility] ([place]) Comment on above: Performed By: #### A DIFF, CMP, CBC, ERDS, GFR, ANEU #### [place] [address] MCV (RBC) [Entitic vol] 96.4 fL Normal 80.0-99.0 [facility] ([place]) Comment on above: Performed By: #### A DIFF, CMP, CBC, ERDS, GFR, ANEU #### [place] [address] Platelet 261 10 3/mcL Normal 150-450 [facility] ([place]) Comment on above: Performed By: #### A DIFF, CMP, CBC, ERDS, GFR, ANEU #### [place] [address] Platelet mean volume (Bld) [Entitic vol] 7.9 fL Normal 6.6-10.5 [facility] ([place]) Comment on above: Performed By: #### A DIFF, CMP, CBC, ERDS, GFR, ANEU #### [place] [address] RBC 4.36 10 6/mcL Normal 4.10-5.30 [facility] ([place]) Comment on above: Performed By: #### A DIFF, CMP, CBC, ERDS, GFR, ANEU #### [place] [id number] WBC 9.70 10 3/mcL Normal 4.50-10.80 [facility] ([place]) Comment on above: Performed By: #### A DIFF, CMP, CBC, ERDS, GFR, ANEU #### [place] [address] CMPon 05-27-2021 Albumin Level 4.3 G/dL Normal 3.2-4.8 [facility] ([place]) Comment on above: Performed By: #### A DIFF, CMP, CBC, ERDS, GFR, ANEU #### [address] [address] Albumin/Globulin [Mass ratio] 1.1 {ratio} Normal 0.9-1.6 [facility] ([place]) Comment on above: Performed By: #### A DIFF, CMP, CBC, ERDS, GFR, ANEU #### [address] [address] ALP [Catalytic activity/Vol] 92 U/L Normal 28-126 [facility] ([place]) Comment on above: Performed By: #### A DIFF, CMP, CBC, ERDS, GFR, ANEU #### [address] [address] ALT [Catalytic activity/Vol] 19 U/L Normal 10-49 [facility] ([place]) Comment on above: Performed By: #### A DIFF, CMP, CBC, ERDS, GFR, ANEU #### [address] [address] AST [Catalytic activity/Vol] 16 U/L Normal 8-34 [facility] ([place]) Comment on above: Performed By: #### A DIFF, CMP, CBC, ERDS, GFR, ANEU #### [address] [address] Bili Total 0.3 mg/dL Normal 0.2-1.2 [facility] ([place]) Comment on above: Result Comment: Use of this assay is not recommended for patients undergoing treatment with eltrombopag due to the potential for falsely elevated results. Performed By: #### A DIFF, CMP, CBC, ERDS, GFR, ANEU #### [address] [address] BUN/Creatinine Ratio 15.8 ratio Normal 10.0-22.0 [facility] ([place] Comment on above: Performed By: #### A DIFF, CMP, CBC, ERDS, GFR, ANEU #### [address] [address] Calcium [Mass/Vol] 9.3 mg/dL Normal 8.4-10.1 [facility] ([place]) Comment on above: Result Comment: No te - New Reference Range in effect 20 Performed By: #### A DIFF, CMP, CBC, ERDS, GFR, ANEU #### [place] [address] Chloride [Moles/Vol] 107 mmol/L Normal 98-110 [facility] ([place] Comment on above: Performed By: #### A DIFF, CMP, CBC, ERDS, GFR, ANEU #### [place] [address] CO2 [Moles/Vol] 26 mmol/L Normal 22-32 [facility] ([place] Comment on above: Performed By: #### A DIFF, CMP, CBC, ERDS, GFR, ANEU #### [place] [address] Creatinine [Mass/Vol] 0.76 mg/dL Normal 0.50-1.20 [facility] ([place] Comment on above: Performed By: #### A DIFF, CMP, CBC, ERDS, GFR, ANEU #### [place] [address] Electrolyte Balance 6.0 mEq/L Normal 4.0-15.0 [facility] ([place]) Comment on above: Performed By: #### A DIFF, CMP, CBC, ERDS, GFR, ANEU #### [address] [address] Globulin 3.8 G/dL Normal 1.5-3.8 [facility] ([place] Comment on above: Performed By: #### A DIFF, CMP, CBC, ERDS, GFR, ANEU #### [place] [address] Glucose [Mass/Vol] 85 mg/dL Normal 70-110 [facility] ([place]) Comment on above: Performed By: #### A DIFF, CMP, CBC, ERDS, GFR, ANEU #### [place] [address] Potassium [Moles/Vol] 3.8 mmol/L Normal 3.5-5.0 [facility] ([place] Comment on above: Performed By: #### A DIFF, CMP, CBC, ERDS, GFR, ANEU #### [place] [address] Sodium [Moles/Vol] 139 mmol/L Normal 136-145 [facility] ([place]) Comment on above: Performed By: #### A DIFF, CMP, CBC, ERDS, GFR, ANEU #### [place] [address] Total Protein 8.1 G/dL Normal 6.0-8.5 [facility] ([place]) Comment on above: Result Comment: No te - New Reference Range in effect 20 Performed By: #### A DIFF, CMP, CBC, ERDS, GFR, ANEU #### [place] [address] Urea nitrogen [Mass/Vol] 12.0 mg/dL Normal 8.0-22.0 [facility] ([place] Comment on above: Performed By: #### A DIFF, CMP, CBC, ERDS, GFR, ANEU #### [place] [address] ERDSon 05-27-2021 Acetaminophen [Mass/Vol] ug/mL Low 10.0-20.0 [facility] ([place] Comment on above: Performed By: #### A DIFF, CMP, CBC, ERDS, GFR, ANEU #### [place] [address] ER Drug Screen (s) Negative Normal [facility] ([place]) Comment on above: Performed By: #### A DIFF, CMP, CBC, ERDS, GFR, ANEU #### [place] [address] ER Drug Screen Interp Serum shows no evidence of drugs routinely screened Invalid Interpretation Code [facility] ([place] Comment on above: Performed By: #### A DIFF, CMP, CBC, ERDS, GFR, ANEU #### [place] [address] ER Serum Drugs Screened: See Below Normal [facility] ([place]) Comment on above: Result Comment: This drug screen is a presumptive screening only. No confirmation will be performed unless requested. Drugs included in the ER serum drug screen are: Threshold Ethanol 10.0 mg/dL Salicylate 2.0 mg/dL Acetaminophen 2.0 mcg/mL Tricyclic Antidepressants 300 ng/mL Testing has been performed FOR MEDICAL PURPOSES ONLY. Performed By: #### A DIFF, CMP, CBC, ERDS, GFR, ANEU #### [address] [address] Ethanol Level <10.0 Normal [facility] ([place]) Comment on above: Performed By: #### A DIFF, CMP, CBC, ERDS, GFR, ANEU #### [address] [address] Salicylate Lvl (ds) <3.0 Low 10.0-25.0 [facility] ([place]) Comment on above: Performed By: #### A DIFF, CMP, CBC, ERDS, GFR, ANEU #### [address] [address] TCA (s) Negative Normal [facility] ([place] Comment on above: Performed By: #### A DIFF, CMP, CBC, ERDS, GFR, ANEU #### [address] [address] LABORATORYOrdered By: Nik New on 05-27-2021 Appearance (U) Hazy (Abnormal) (05/27/21 9:44 PM) [facility] Work Phone: Beta HCG ( test) Ql (U) Negative (05/27/21 9:44 PM) [facility] Work Phone: Bilirubin Urine Dipstick Negative (05/27/21 9:44 PM) [facility] Work Phone: Blood Urine Dipstick [id number]-[id number] (Abnormal) (05/27/21 9:44 PM) [facility] Work Phone: Glucose Urine Dipstick Negative (05/27/21 9:44 PM) [facility] Work Phone: Ketones Urine Dipstick Negative (05/27/21 9:44 PM) [facility] Work Phone: Leukocytes Urine Dipstick 2+ Moderate (Abnormal) (05/27/21 9:44 PM) [facility] Work Phone: Nitrite Urine Dipstick Negative (05/27/21 9:44 PM) [facility] Work Phone: pH Urine Dipstick 5 (05/27/21 9:44 PM) [facility] Work Phone: Protein Urine Dipstick Negative (05/27/21 9:44 PM) [facility] Work Phone: Specific [place] Urine Dipstick 1.015 (05/27/21 9:44 PM) [facility] Work Phone: Urine Color Urine Dipstick Yellow (05/27/21 9:44 PM) [facility] Work Phone: Urobilinogen Urine Dipstick 0.2 mg/dl (05/27/21 9:44 PM) [facility] Work Phone: LABORATORYOrdered By: Jose Sousa on 05-27-2021 ER U Drug Screen Negative (05/27/21 9:18 PM) Invalid Interpretation Code AH Chemistry S ER U Drug Screen Interp Urine shows no evidence of drugs routinely screened. Invalid Interpretation Code AH Chemistry S U ER Drugs Screened: See Below (05/27/21 9:18 PM) Invalid Interpretation Code AH Chemistry S LABORATORYOrdered By: Naty Mustafa on 05-27-2021 Acetaminophen [Mass/Vol] mcg/mL Invalid Interpretation Code 10.0 - 20.0 mcg/mL AH ADM SS ER Drug Screen (s) Negative (05/27/21 7:21 PM) Invalid Interpretation Code AH Chemistry S ER Drug Screen Interp Serum shows no evidence of drugs routinely screened Invalid Interpretation Code AH Chemistry S ER Serum Drugs Screened: See Below (05/27/21 7:21 PM) Invalid Interpretation Code AH Chemistry S Ethanol [Mass/Vol] mg/dL Invalid Interpretation Code AH ADM SS Salicylates [Mass/Vol] mg/dL Invalid Interpretation Code 10.0 - 25.0 mg/dL AH ADM SS Tricyclic antidepressants Screen Ql Negative Invalid Interpretation Code AH ADM SS LABORATORYOrdered By: Sunshine Meza on 05-27-2021 Adenovirus DNA YAYO+non-probe Ql (Nph) Not Detected *NA* (05/27/21 7:21 PM) Invalid Interpretation Code Not Detected AH Auto Viro/Sero SS ADMITTED TO INTENSIVE CARE UNIT FOR CONDITION OF INTEREST:FIND:PT:^P ATIENT:ORD: No (05/27/21 7:21 PM) Invalid Interpretation Code AH Auto Viro/Sero SS B. pertussis toxin promoter region YAYO+non-probe Ql (Nph) Not Detected *NA* (05/27/21 7:21 PM) Invalid Interpretation Code Not Detected AH Auto Viro/Sero SS Bordetella Parapertussis Not Detected *NA* (05/27/21 7:21 PM) Invalid Interpretation Code Not Detected AH Auto Viro/Sero SS C. pneumoniae DNA YAYO+non-probe Ql (Nph) Not Detected *NA* (05/27/21 7:21 PM) Invalid Interpretation Code Not Detected AH Auto Viro/Sero SS EMPLOYED IN A HEALTHCARE SETTING:FIND:PT:^PA TIENT:ORD: No (05/27/21 7:21 PM) Invalid Interpretation Code AH Auto Viro/Sero SS FIRST TEST FOR CONDITION OF INTEREST:FIND:PT:^P ATIENT:ORD: No (05/27/21 7:21 PM) Invalid Interpretation Code Auto Viro/Sero SS FLUAV RNA YAYO+non-probe Ql (Nph) Not Detected *NA* (05/27/21 7:21 PM) Invalid Interpretation Code Not Detected AH Auto Viro/Sero SS FLUBV RNA YAYO+non-probe Ql (Nph) Not Detected *NA* (05/27/21 7:21 PM) Invalid Interpretation Code Not Detected AH Auto Viro/Sero SS HAS SYMPTOMS RELATED TO CONDITION OF INTEREST:FIND:PT:^P ATIENT:ORD: Unknown (05/27/21 7:21 PM) Invalid Interpretation Code AH Auto Viro/Sero SS hMPV RNA YAYO+non-probe Ql (Nph) Not Detected *NA* (05/27/21 7:21 PM) Invalid Interpretation Code Not Detected AH Auto Viro/Sero SS Illness or injury onset date and time [id number] Invalid Interpretation Code Auto Viro/Sero SS M. pneumoniae DNA YAYO+non-probe Ql (Nph) Not Detected *NA* (05/27/21 7:21 PM) Invalid Interpretation Code Not Detected Auto Viro/Sero SS Parainfluenza virus 1 RNA YAYO+non-probe Ql (Nph) Not Detected *NA* (05/27/21 7:21 PM) Invalid Interpretation Code Not Detected Auto Viro/Sero SS Parainfluenza virus 2 RNA YAYO+non-probe Ql (Nph) Not Detected *NA* (05/27/21 7:21 PM) Invalid Interpretation Code Not Detected Auto Viro/Sero SS Parainfluenza virus 3 RNA YAYO+non-probe Ql (Nph) Not Detected *NA* (05/27/21 7:21 PM) Invalid Interpretation Code Not Detected Auto Viro/Sero SS Parainfluenza virus 4 RNA YAYO+non-probe Ql (Nph) Not Detected *NA* (05/27/21 7:21 PM) Invalid Interpretation Code Not Detected Auto Viro/Sero SS Patient was hospitalized because of this condition No (05/27/21 7:21 PM) Invalid Interpretation Code Auto Viro/Sero SS status Not (05/27/21 7:21 PM) Invalid Interpretation Code Auto Viro/Sero SS RESIDES IN A CONGREGATE CARE SETTING:FIND:PT:^PA TIENT:ORD: No (05/27/21 7:21 PM) Invalid Interpretation Code Auto Viro/Sero SS Rhinovirus+Enterovi ashok RNA YAYO+non-probe Ql (Nph) Not Detected *NA* (05/27/21 7:21 PM) Invalid Interpretation Code Not Detected Auto V[facility]/Sero SS RSV RNA YAYO+non-probe Ql (Nph) Not Detected *NA* (05/27/21 7:21 PM) Invalid Interpretation Code Not Detected [employer] [facility]Sero SS SARS-CoV-2 (COVID-19) RNA YAYO+probe Ql (Unsp spec) Not Detected *NA* (05/27/21 7:21 PM) Invalid Interpretation Code Not Detected Auto V[facility]/Sero SS LABORATORYOrdered By: SYSTEM SYSTEM on 05-27-2021 Albumin [Mass/Vol] 4.3 G/dL Invalid Interpretation Code 3.2 - 4.8 G/dL AH ADM SS Albumin/Globulin [Mass ratio] 1.1 {ratio} Invalid Interpretation Code 0.9 - 1.6 ratio AH ADM SS ALP [Catalytic activity/Vol] 92 U/L Invalid Interpretation Code 28 - 126 U/L AH ADM SS ALT [Catalytic activity/Vol] 19 U/L Invalid Interpretation Code 10 - 49 U/L AH ADM SS AST [Catalytic activity/Vol] 16 U/L Invalid Interpretation Code 8 - 34 U/L AH ADM SS Base excess Calc (BldMV) [Moles/Vol] 6.0 mEq/L Invalid Interpretation Code 4.0 - 15.0 mEq/L AH ADM SS Basophils (Bld) [#/Vol] 0.10 103/mcL Invalid Interpretation Code 0.00 - 0.27 10^3/mcL AH Remisol SS Basophils/100 WBC (Bld) 0.5 % Invalid Interpretation Code 0.0 - 2.5 % AH Remisol SS Bilirubin [Mass/Vol] 0.3 mg/dL Invalid Interpretation Code 0.2 - 1.2 mg/dL AH ADM SS Calcium [Mass/Vol] 9.3 mg/dL Invalid Interpretation Code 8.4 - 10.1 mg/dL AH ADM SS Chloride [Moles/Vol] 107 mmol/L Invalid Interpretation Code 98 - 110 mEq/L AH ADM SS CO2 [Moles/Vol] 26 mmol/L Invalid Interpretation Code 22 - 32 mEq/L AH ADM SS Creatinine [Mass/Vol] 0.76 mg/dL Invalid Interpretation Code 0.50 - 1.20 mg/dL AH ADM SS Eosinophils (Bld) [#/Vol] 0.10 103/mcL Invalid Interpretation Code 0.00 - 0.65 10^3/mcL AH Remisol SS Eosinophils/100 WBC (Bld) 1.3 % Invalid Interpretation Code 0.0 - 6.0 % AH Remisol SS Erythrocyte distribution width (RBC) [Ratio] 13.3 % Invalid Interpretation Code 11.5 - 15.5 % AH Remisol SS GFR/1.73 sq M.predicted among blacks MDRD (S/P/Bld) [Vol rate/Area] ml/min/1.73sqm Invalid Interpretation Code AH ADM SS GFR/1.73 sq M.predicted among non-blacks MDRD (S/P/Bld) [Vol rate/Area] ml/min/1.73sqm Invalid Interpretation Code AH ADM SS Globulin (S) [Mass/Vol] 3.8 G/dL Invalid Interpretation Code 1.5 - 3.8 G/dL AH ADM SS Glucose [Mass/Vol] 85 mg/dL Invalid Interpretation Code 70 - 110 mg/dL AH ADM SS Hematocrit (Bld) [Volume fraction] 42.0 % Invalid Interpretation Code 34.0 - 46.0 % AH Remisol SS Hemoglobin (Bld) [Mass/Vol] 14.2 G/dL Invalid Interpretation Code 12.0 - 16.0 G/dL AH Remisol SS Lymphocytes (Bld) [#/Vol] 2.10 103/mcL Invalid Interpretation Code 0.90 - 4.32 10^3/mcL AH Remisol SS Lymphocytes/100 WBC (Bld) 22.2 % Invalid Interpretation Code 20.0 - 40.0 % AH Remisol SS MCH (RBC) [Entitic mass] 32.6 pg Invalid Interpretation Code 27.0 - 33.0 pg AH Remisol SS MCHC (RBC) [Mass/Vol] 33.8 G/dL Invalid Interpretation Code 32.0 - 36.0 G/dL AH Remisol SS MCV (RBC) [Entitic vol] 96.4 fL Invalid Interpretation Code 80.0 - 99.0 fL AH Remisol SS Monocytes (Bld) [#/Vol] 0.70 103/mcL Invalid Interpretation Code 0.09 - 1.40 10^3/mcL AH Remisol SS Monocytes/100 WBC (Bld) 6.8 % Invalid Interpretation Code 2.0 - 13.0 % AH Remisol SS Neutrophils (Bld) [#/Vol] 6.70 103/mcL Invalid Interpretation Code 2.25 - 8.10 10^3/mcL AH Remisol SS Neutrophils/100 WBC (Bld) 69.2 % Invalid Interpretation Code 50.0 - 75.0 % AH Remisol SS Platelet mean volume (Bld) [Entitic vol] 7.9 fL Invalid Interpretation Code 6.6 - 10.5 fL AH Remisol SS Platelets (Bld) [#/Vol] 261 103/mcL Invalid Interpretation Code 150 - 450 10^3/mcL AH Remisol SS Potassium [Moles/Vol] 3.8 mmol/L Invalid Interpretation Code 3.5 - 5.0 mEq/L AH ADM SS Protein [Mass/Vol] 8.1 G/dL Invalid Interpretation Code 6.0 - 8.5 G/dL AH ADM SS RBC (Bld) [#/Vol] 4.36 106/mcL Invalid Interpretation Code 4.10 - 5.30 10^6/mcL AH Remisol SS Sodium [Moles/Vol] 139 mmol/L Invalid Interpretation Code 136 - 145 mEq/L AH ADM SS Urea nitrogen [Mass/Vol] 12.0 mg/dL Invalid Interpretation Code 8.0 - 22.0 mg/dL AH ADM SS Urea nitrogen/Creatinine [Mass ratio] 15.8 ratio Invalid Interpretation Code 10.0 - 22.0 ratio AH ADM SS WBC (Bld) [#/Vol] 9.70 103/mcL Invalid Interpretation Code 4.50 - 10.80 10^3/mcL Remisol SS No Panel Informationon 05-27 Culture Urine Culture results pending. [facility] Work Phone: RESCVIDon 05-27-2021 Adenovirus Not detected Normal Not Detected [facility] ([place]) Comment on above: Performed By: #### A DIFF, CMP, CBC, ERDS, GFR, ANEU #### [address] [address] Bordetella Parapertussis Not detected Normal Not Detected [facility] ([place]) Comment on above: Performed By: #### A DIFF, CMP, CBC, ERDS, GFR, ANEU #### [address] [address] Bordetella Pertussis Not detected Normal Not Detected [facility] ([place]) Comment on above: Performed By: #### A DIFF, CMP, CBC, ERDS, GFR, ANEU #### [address] [address] Chlamydophila pneumoniae Not detected Normal Not Detected [facility] ([place]) Comment on above: Performed By: #### A DIFF, CMP, CBC, ERDS, GFR, ANEU #### [address] [address] Coronavirus 229E (Not COVID-19) Not detected Normal Not Detected [facility] ([place]) Comment on above: Performed By: #### A DIFF, CMP, CBC, ERDS, GFR, ANEU #### [place] [address] Coronavirus HKU1 (Not COVID-19) Not detected Normal Not Detected [facility] ([place] Comment on above: Performed By: #### A DIFF, CMP, CBC, ERDS, GFR, ANEU #### [place] [address] Coronavirus NL63 (Not COVID-19) Not detected Normal Not Detected [facility] ([place] Comment on above: Performed By: #### A DIFF, CMP, CBC, ERDS, GFR, ANEU #### [place] [address] Coronavirus OC43 (Not COVID-19) Not detected Normal Not Detected [facility] ([place] Comment on above: Performed By: #### A DIFF, CMP, CBC, ERDS, GFR, ANEU #### [place] [address] Date of Onset [id number] Invalid Interpretation Code [facility] ([place] Comment on above: Performed By: #### A DIFF, CMP, CBC, ERDS, GFR, ANEU #### [place] [address] Employed in Healthcare No [facility] ([place] Comment on above: Performed By: #### A DIFF, CMP, CBC, ERDS, GFR, ANEU #### [place] [address] First Test No [facility] ([place] Comment on above: Performed By: #### A DIFF, CMP, CBC, ERDS, GFR, ANEU #### [place] [address] Hospitalized No [facility] ([place] Comment on above: Performed By: #### A DIFF, CMP, CBC, ERDS, GFR, ANEU #### [place] [address] Human Metapneumovirus Not detected Normal Not Detected [facility] ([place] Comment on above: Performed By: #### A DIFF, CMP, CBC, ERDS, GFR, ANEU #### [facility] [address] [place] [address] ICU No Normal [facility] ([place] Comment on above: Performed By: #### A DIFF, CMP, CBC, ERDS, GFR, ANEU #### [facility] [address] [place] [address] Influenza A Not detected Normal Not Detected [facility] ([place] Comment on above: Performed By: #### A DIFF, CMP, CBC, ERDS, GFR, ANEU #### [facility] [address] [place] [address] Influenza B Not detected Normal Not Detected [facility] ([place] Comment on above: Performed By: #### A DIFF, CMP, CBC, ERDS, GFR, ANEU #### [place] [address] Mycoplasma pneumoniae Not detected Normal Not Detected [facility] ([place] Comment on above: Performed By: #### A DIFF, CMP, CBC, ERDS, GFR, ANEU #### [place] [address] Parainfluenza 1 Not detected Normal Not Detected [facility] ([place] Comment on above: Performed By: #### A DIFF, CMP, CBC, ERDS, GFR, ANEU #### [place] [address] Parainfluenza 2 Not detected Normal Not Detected [facility] ([place] Comment on above: Performed By: #### A DIFF, CMP, CBC, ERDS, GFR, ANEU #### [place] [address] Parainfluenza 3 Not detected Normal Not Detected [facility] ([place] Comment on above: Performed By: #### A DIFF, CMP, CBC, ERDS, GFR, ANEU #### [place] [address] Parainfluenza 4 Not detected Normal Not Detected [facility] ([place] Comment on above: Performed By: #### A DIFF, CMP, CBC, ERDS, GFR, ANEU #### [place] [address] Not Normal [facility] ([place] Comment on above: Performed By: #### A DIFF, CMP, CBC, ERDS, GFR, ANEU #### [place] [address] Resides in Congregate Care Setting No Normal [facility] ([place] Comment on above: Performed By: #### A DIFF, CMP, CBC, ERDS, GFR, ANEU #### [place] [address] Respiratory Syncytial Virus Not detected Normal Not Detected [facility] ([place] Comment on above: Performed By: #### A DIFF, CMP, CBC, ERDS, GFR, ANEU #### [place] [address] Rhinovirus/Enterovi ashok Not detected Normal Not Detected [facility] ([place] Comment on above: Performed By: #### A DIFF, CMP, CBC, ERDS, GFR, ANEU #### [place] [address] SARS-CoV-2 (COVID-19) RNA YAYO+probe Ql (Unsp spec) Not detected Normal Not Detected [facility] ([place] Comment on above: Result Comment: This test is being used under the FDA EUA procedure. This assay has been validated in the [facility] for use with nasopharyngeal specimens in [facility]. If a non-validated specimen or test collection method was used, please interpret the results with caution, especially if the test result is negative. A positive test result for COVID-19 indicates that RNA from SARS-CoV-2 was detected, and the patient is infected with the virus and presumed to be contagious. Laboratory test results should always be considered in the context of clinical observations and epidemiological data in making a final diagnosis and patient management decisions. Patient management should follow current CDC guidelines. A negative test result for this test means that SARS-CoV-2 RNA was not present in the specimen above the limit of detection. However, a negative result does not rule out COVID-19 and should not be used as the sole basis for treatment or patient management decisions. A negative result does not exclude the possibility of COVID-19. When diagnostic testing is negative, the possibility of a false negative result should be considered in the context of a patient's recent exposures and the presence of clinical signs and symptoms consistent with COVID-19. The possibility of a false negative result should especially be considered if the patient?s recent exposures or clinical presentation indicate that COVID-19 is likely, and diagnostic tests for other causes of illness (e.g., other respiratory illness) are negative. If COVID-19 is still suspected based on exposure history together with other clinical findings, re-testing should be considered by healthcare providers in consultation with public health authorities. Performed By: #### A DIFF, CMP, CBC, ERDS, GFR, ANEU #### [address] [address] Symptomatic as Defined by [facility] Unknown Normal [facility] ([place]) Comment on above: Performed By: #### A DIFF, CMP, CBC, ERDS, GFR, ANEU #### [address] [address] U ERDSon 05-27-2021 ER U Drug Screen Negative Normal [facility] ([place] Comment on above: Performed By: #### A DIFF, CMP, CBC, ERDS, GFR, ANEU #### [address] [address] ER U Drug Screen Interp Urine shows no evidence of drugs routinely screened. Invalid Interpretation Code [facility] ([place] Comment on above: Performed By: #### A DIFF, CMP, CBC, ERDS, GFR, ANEU #### [address] [address] U ER Drugs Screened: See Below [facility] ([place]) Comment on above: Result Comment: This drug screen is a presumptive screening only. No confirmation will be performed unless requested. Drugs included in the ER urine drug screen are: Threshold Amphetamine/Methamphetamine 1000 ng/mL Barbiturates 200 ng/mL Benzodiazepine metabolites 200 ng/mL Cannabinoids (THC metabolites) 50 ng/mL Benzoylecognine (cocaine met) 300 ng/mL Opiates 300 ng/mL Phencyclidine (PCP) 25 ng/mL Testing has been performed FOR MEDICAL PURPOSES ONLY. Performed By: #### A DIFF, CMP, CBC, ERDS, GFR, ANEU #### [address], [place] [address] COVID-19Ordered By: Maxwell dorado on 04-02-2021 SARS-CoV-2 (COVID-19) RNA YAYO+probe Ql (Unsp spec) Not detected Not Detected [employer] Work Phone: Comment on above: Not Detected. Expected Result: Not Detected _ Real-time, RT-PCR performed on the Collections System by [facility]. Negative results do not preclude SARS-CoV-2 infection and should not be used as the sole basis for treatment or other patient management decisions. This assay was developed by [employer] and distributed under an Emergency Use Authorization (EUA) granted by the FDA for the qualitative detection of SARS-CoV-2 nucleic acid. Test Performed by [facility] [facility], [address] [place] [address] [employer] Work Phone: Comp Panel with Mg Reflexon 04-02-2021 ALP [Catalytic activity/Vol] 61 U/L Normal 38-126 [facility] Comment on above: Performed By: #### C MP3M #### [employer] [facility] [place], [place] ALT [Catalytic activity/Vol] 11 U/L Normal 0-34 [facility] [place] Comment on above: Result Comment: The ALT test is performed by an updated assay method. Please note that the reference intervals have been changed and are now sex specific. Performed By: #### C MP3M #### [facility] [place] [address] [address] [place], [place] Anion gap [Moles/Vol] 5 mmol/L Normal 3-13 [facility] Comment on above: Performed By: #### C MP3M #### [place] [address] AST [Catalytic activity/Vol] 20 U/L Normal 15-46 [facility] Comment on above: Performed By: #### C MP3M #### [employer] [facility] [place], [place] Bilirubin [Mass/Vol] 0.3 mg/dL Normal 0.2-1.3 [facility] Comment on above: Performed By: #### C MP3M #### [facility] [address] [place], [place] Calcium [Mass/Vol] 8.4 mg/dL Normal 8.4-10.4 [facility] Comment on above: Performed By: #### C MP3M #### [facility] [address] [place], [place] CO2 [Moles/Vol] 21 mmol/L Low 22-30 [facility] Comment on above: Performed By: #### C MP3M #### [facility] [address] [place], [place] Creatinine [Mass/Vol] 0.64 mg/dL Normal 0.52-1.25 [facility] Comment on above: Performed By: #### C MP3M #### [facility] [address] [place], [place] eGFR OTHER > 90.0 Normal >60 [facility] Comment on above: Result Comment: KDIG O guidelines provide the following GFR categories: Stage GFR(ml/min/1.73 m2) Terms G1 >=90 Normal or high G2 60-89 Mildly decreased* G3a 45-59 Mildly to moderately decreased G3b 30-44 Moderately to severely decreased G4 15-29 Severely decreased G5 <15 Kidney failure *Relative to young adult level. In the absence of evidence of kidney damage, neither GFR category G1 nor G2 fulfill the criteria for CKD. The CKD-EPI equation is validated in individuals 18 years of age and older. Currently the best equation for estimating glomerular filtration rate (GFR) from serum creatinine in children is the Bedside Chandler equation. It is less accurate in patients with extremes of muscle mass, restriction of dietary protein, ingestion of creatine, extra-renal metabolism of creatinine, or treatment with medications that affect renal tubular creatinine secretion. Performed By: #### C MP3M #### [facility] [address] [place], [place] GFR/1.73 sq M.predicted among blacks MDRD (S/P/Bld) [Vol rate/Area] mL/min/{1.73_m2} Normal >60 [facility] Comment on above: Performed By: #### C MP3M #### [facility] [address] [place], [place] Glucose [Mass/Vol] 84 mg/dL Normal 70-100 [facility] Comment on above: Performed By: #### C MP3M #### [facility] [address] [place], [place] Protein [Mass/Vol] 6.1 g/dL Low 6.3-8.2 [facility] Comment on above: Performed By: #### C MP3M #### [place] [address] [address] [place], [place] Urea nitrogen [Mass/Vol] 7 mg/dL Low 9-20 [facility] Comment on above: Performed By: #### C MP3M #### [place] [address] [address] [place] Albumin [Mass/Vol] 3.6 g/dL Normal 3.5-5.0 [facility] Comment on above: Performed By: #### C MP3M #### [place] [address] [address] [place], [place] Potassium [Moles/Vol] 3.9 mmol/L Normal 3.5-5.1 [facility] Comment on above: Performed By: #### C MP3M #### [place] [address] [address] [place] Sodium [Moles/Vol] 136 mmol/L Normal 135-145 [facility] Comment on above: Performed By: #### C MP3M #### [place] [address] [address] [place], [place] Chloride [Moles/Vol] 110 mmol/L High 98-107 [facility] Comment on above: Performed By: #### C MP3M #### [place] [address] [address] [place], [place] Comprehensive Metabolic Pane l w/ Reflex to MGOrdered By: Сергей Murguia on 04-02-2021 Albumin [Mass/Vol] 3.6 g/dL 3.5 - 5.0 g/dL [facility] Work Phone: ALP (Bld) [Catalytic activity/Vol] 61 U/L 38 - 126 U/L [facility] Work Phone: ALT [Catalytic activity/Vol] 11 U/L 0 - 34 U/L [facility] Work Phone: Comment on above: The ALT test is perf ormed by an updated assay method. Please note that the reference intervals have been changed and are now sex specific. Anion gap [Moles/Vol] 5 mmol/L 3 - 13 mmol/L [facility] Work Phone: AST [Catalytic activity/Vol] 20 U/L 15 - 46 U/L [facility] Work Phone: [phone] Bilirubin [Mass/Vol] 0.3 mg/dL 0.2 - 1.3 mg/dL [employer] Work Phone: Calcium [Mass/Vol] 8.4 mg/dL 8.4 - 10. 4 mg/dL [facility] Work Phone: Chloride [Moles/Vol] 110 mmol/L High 98 - 107 mmol/L [facility] Work Phone: CO2 [Moles/Vol] 21 mmol/L Low 22 - 30 mmol/L [employer] Work Phone: Creatinine [Mass/Vol] 0.64 mg/dL 0.52 - 1.25 mg/dL [facility] Work Phone: EGFR IF NonAfrican Eritrean >90.0 >60 mL/min [facility] Work Phone: Comment on above: KDIGO guidelines pro vide the following GFR categories: Stage GFR(ml/min/1.73 m2) Terms G1 >=90 Normal or high G2 60-89 Mildly decreased* G3a 45-59 Mildly to moderately decreased G3b 30-44 Moderately to severely decreased G4 15-29 Severely decreased G5 <15 Kidney failure *Relative to young adult level. In the absence of evidence of kidney damage, neither GFR category G1 nor G2 fulfill the criteria for CKD. The CKD-EPI equation is validated in individuals 18 years of age and older. Currently the best equation for estimating glomerular filtration rate (GFR) from serum creatinine in children is the Bedside Chandler equation. It is less accurate in patients with extremes of muscle mass, restriction of dietary protein, ingestion of creatine, extra-renal metabolism of creatinine, or treatment with medications that affect renal tubular creatinine secretion. Free PSA/Total PSA [Mass fraction] 6.1 g/dL Low 6.3 - 8.2 g/dL [facility] Work Phone: GFR/1.73 sq M.predicted among blacks MDRD (S/P/Bld) [Vol rate/Area] mL/min/{1.73_m2} >60 mL/min [facility] Work Phone: Glucose [Mass/Vol] 84 mg/dL 70 - 100 mg/dL [facility] Work Phone: [phone] Interpretation and review of laboratory results Abnormal [facility] Work Phone: Potassium [Moles/Vol] 3.9 mmol/L 3.5 - 5.1 mmol/L [facility] Work Phone: Sodium [Moles/Vol] 136 mmol/L 135 - 145 mmol/L [facility] Work Phone: Urea nitrogen (BldV) [Mass/Vol] 7 mg/dL Low 9 - 20 mg/dL [facility] Work Phone: Test Performed by [employer], [address] [place] [address] [facility] Work Phone: [facility] Work Phone: Drugs of Abuseon 04-02-2021 Phencyclidine (PCP), Ur Negative Normal [facility] Comment on above: Result Comment: The expected value for all of the drugs listed above is Negative. The following drugs or drug groups have been screened for by Immunoassay at the following thresholds: Amphetamine class (1000 ng/mL), Barbiturates (200 ng/mL), Benzodiazepines (200 ng/mL), Cocaine (300 ng/mL), Methadone (300 ng/mL), Opiates (300 ng/mL), Oxycodone (100 ng/mL), and PCP (25 ng/mL). NOTE: These results are for medical treatment only. Analysis performed using non-forensic procedures. POSITIVE results are NOT confirmed by a more specific alternative method unless requested. If confirmation is needed, request confirmation under separate order. Performed By: #### D RGA4 #### [facility] [address] [place] [address] Opiates, Ur Negative Normal [facility] Comment on above: Performed By: #### D RGA4 #### [facility] [address] [facility] [place] [address] Cocaine, Ur Negative Normal [facility] Comment on above: Performed By: #### D RGA4 #### [facility] [address] [facility] [place] [address] Methadone, Ur Negative Normal [facility] Comment on above: Performed By: #### D RGA4 #### [facility] [address] [facility] [place] [address] Benzodiazepines, Ur Negative Normal [facility] Comment on above: Performed By: #### D RGA4 #### [facility] [address] [facility] [place] [address] Amphetamines, Ur Negative Normal [facility] Comment on above: Performed By: #### D RGA4 #### [place] [address] [facility] [place] [address] Barbiturates, Ur Negative Normal [facility] Comment on above: Performed By: #### D RGA4 #### [facility] [address] [facility] [place] [address] Oxycodone/Oxymorphi ne,Ur Negative Normal [facility] Comment on above: Performed By: #### D RGA4 #### [facility] [address] [facility] [place] [address] FENTANYL, URINEOrdered By: Tim Cramer on 04-02-2021 Fentanyl Negative Negative NA [facility] Work Phone: Comment on above: Fentanyl has been sc reened for by Immunoassay at a 2ng/ml threshold. POSITIVE results are not confirmed by a more specific alternative method unless requested. If confirmation is needed, request confirmation under separate order. NOTE: These results are for medical treatment only. Analysis performed using non-forensic procedures. Test Performed by [facility], [address] [place] [address] [facility] Work Phone: [facility] Work Phone: Fentanyl Screen, Urineon Fentanyl Screen, Urn Negative Normal Negative [facility] Comment on above: Result Comment: Fent anyl has been screened for by Immunoassay at a 2ng/ml threshold. POSITIVE results are not confirmed by a more specific alternative method unless requested. If confirmation is needed, request confirmation under separate order. NOTE: These results are for medical treatment only. Analysis performed using non-forensic procedures. Performed By: #### F ENTU #### [facility] [address] [place], [place] [id number] 04-02-2021 SARS-CoV-2 (COVID-19) RNA YAYO+probe Ql (Unsp spec) SARS-CoV-2 --> Status: F Not Detected. Expected Result: Not Detected _ Real-time, RT-PCR performed on the Collections System by the [facility]. Negative results do not preclude SARS-CoV-2 infection and should not be used as the sole basis for treatment or other patient management decisions. This assay was developed by [employer] and distributed under an Emergency Use Authorization (EUA) granted by the FDA for the qualitative detection of SARS-CoV-2 nucleic acid. Expected Result: Not Detected _ Real-time, RT-PCR performed on the Collections System by the [facility]. Negative results do not preclude SARS-CoV-2 infection and should not be used as the sole basis for treatment or other patient management decisions. This assay was developed by [employer] and distributed under an Emergency Use Authorization (EUA) granted by the FDA for the qualitative detection of SARS-CoV-2 nucleic acid. Normal [facility] Comment on above: Performed By: #### C OVID #### [facility] [address] [place], [place] Comp Metabolic Panelon 04-01 ALP [Catalytic activity/Vol] 71 U/L Normal 38-126 [facility] Comment on above: Performed By: #### C MP3, QWAL2, HEMDF, ETOH4 #### [facility] [address] [place], [place] ALT [Catalytic activity/Vol] 14 U/L Normal 0-34 [facility] Comment on above: Result Comment: The ALT test is performed by an updated assay method. Please note that the reference intervals have been changed and are now sex specific. Performed By: #### C MP3, QWAL2, HEMDF, ETOH4 #### [place] [address] [place], [place] Anion gap [Moles/Vol] 10 mmol/L Normal 3-13 [facility] Comment on above: Performed By: #### C MP3, QWAL2, HEMDF, ETOH4 #### [place] [address] [place], [place] AST [Catalytic activity/Vol] 25 U/L Normal 15-46 [facility] Comment on above: Performed By: #### C MP3, QWAL2, HEMDF, ETOH4 #### [place] [address] [place], [place] Bilirubin [Mass/Vol] 0.3 mg/dL Normal 0.2-1.3 [facility] Comment on above: Performed By: #### C MP3, QWAL2, HEMDF, ETOH4 #### [place] [address] [place], [place] Calcium [Mass/Vol] 9.3 mg/dL Normal 8.4-10.4 [facility] Comment on above: Performed By: #### C MP3, QWAL2, HEMDF, ETOH4 #### [place] [address] [place], [place] CO2 [Moles/Vol] 22 mmol/L Normal 22-30 [facility] Comment on above: Performed By: #### C MP3, QWAL2, HEMDF, ETOH4 #### [place] [address] [place], [place] Glucose [Mass/Vol] 94 mg/dL Normal 70-100 [facility] Comment on above: Performed By: #### C MP3, QWAL2, HEMDF, ETOH4 #### [place] [address] [place], [place] Protein [Mass/Vol] 7.3 g/dL Normal 6.3-8.2 [facility] Comment on above: Performed By: #### C MP3, QWAL2, HEMDF, ETOH4 #### [facility] [address], [place] Urea nitrogen [Mass/Vol] 10 mg/dL Normal 9-20 [facility] Comment on above: Performed By: #### C MP3, QWAL2, HEMDF, ETOH4 #### [facility] [address], [place] Creatinine [Mass/Vol] 0.72 mg/dL Normal 0.52-1.25 [facility] Comment on above: Performed By: #### C MP3, QWAL2, HEMDF, ETOH4 #### [facility] [address] [place], [place] eGFR OTHER > 90.0 Normal >60 [facility] Comment on above: Result Comment: KDIG O guidelines provide the following GFR categories: Stage GFR(ml/min/1.73 m2) Terms G1 >=90 Normal or high G2 60-89 Mildly decreased* G3a 45-59 Mildly to moderately decreased G3b 30-44 Moderately to severely decreased G4 15-29 Severely decreased G5 <15 Kidney failure *Relative to young adult level. In the absence of evidence of kidney damage, neither GFR category G1 nor G2 fulfill the criteria for CKD. The CKD-EPI equation is validated in individuals 18 years of age and older. Currently the best equation for estimating glomerular filtration rate (GFR) from serum creatinine in children is the Bedside Chandler equation. It is less accurate in patients with extremes of muscle mass, restriction of dietary protein, ingestion of creatine, extra-renal metabolism of creatinine, or treatment with medications that affect renal tubular creatinine secretion. Performed By: #### C MP3, QWAL2, HEMDF, ETOH4 #### [facility] [address] [place], [place] GFR/1.73 sq M.predicted among blacks MDRD (S/P/Bld) [Vol rate/Area] mL/min/{1.73_m2} Normal >60 [facility] Comment on above: Performed By: #### C MP3, QWAL2, HEMDF, ETOH4 #### [facility] [address] [place], [place] Albumin [Mass/Vol] 4.5 g/dL Normal 3.5-5.0 [facility] Comment on above: Performed By: #### C MP3, QWAL2, HEMDF, ETOH4 #### [facility] [address], [place] Chloride [Moles/Vol] 108 mmol/L High 98-107 [facility] Comment on above: Performed By: #### C MP3, QWAL2, HEMDF, ETOH4 #### [facility] [place] Potassium [Moles/Vol] 4.0 mmol/L Normal 3.5-5.1 [facility] Comment on above: Performed By: #### C MP3, QWAL2, HEMDF, ETOH4 #### [place] [address] [place], [place] Sodium [Moles/Vol] 140 mmol/L Normal 135-145 [facility] Comment on above: Performed By: #### C MP3, QWAL2, HEMDF, ETOH4 #### [facility] [address] [place], [place] Comprehensive Metabolic Pane lOrdered By: Lea Vences on 04-01-2021 Albumin [Mass/Vol] 4.5 g/dL 3.5 - 5.0 g/dL [facility] Work Phone: [phone] ALP (Bld) [Catalytic activity/Vol] 71 U/L 38 - 126 U/L [facility] Work Phone: [phone] ALT [Catalytic activity/Vol] 14 U/L 0 - 34 U/L [facility] Work Phone: [phone] Comment on above: The ALT test is perf ormed by an updated assay method. Please note that the reference intervals have been changed and are now sex specific. Anion gap [Moles/Vol] 10 mmol/L 3 - 13 mmol/L [facility] Work Phone: [phone] AST [Catalytic activity/Vol] 25 U/L 15 - 46 U/L [facility] Work Phone: [phone] Bilirubin [Mass/Vol] 0.3 mg/dL 0.2 - 1.3 mg/dL [facility] Work Phone: Calcium [Mass/Vol] 9.3 mg/dL 8.4 - 10. 4 mg/dL [facility] Work Phone: [phone] Chloride [Moles/Vol] 108 mmol/L High 98 - 107 mmol/L [facility] Work Phone: [phone] CO2 [Moles/Vol] 22 mmol/L 22 - 30 mmol/L [facility] Work Phone: [phone] Creatinine [Mass/Vol] 0.72 mg/dL 0.52 - 1.25 mg/dL [facility] Work Phone: [phone] EGFR IF NonAfrican Eritrean >90.0 >60 mL/min [facility] Work Phone: [phone] Comment on above: KDIGO guidelines pro vide the following GFR categories: Stage GFR(ml/min/1.73 m2) Terms G1 >=90 Normal or high G2 60-89 Mildly decreased* G3a 45-59 Mildly to moderately decreased G3b 30-44 Moderately to severely decreased G4 15-29 Severely decreased G5 <15 Kidney failure *Relative to young adult level. In the absence of evidence of kidney damage, neither GFR category G1 nor G2 fulfill the criteria for CKD. The CKD-EPI equation is validated in individuals 18 years of age and older. Currently the best equation for estimating glomerular filtration rate (GFR) from serum creatinine in children is the Bedside Chandler equation. It is less accurate in patients with extremes of muscle mass, restriction of dietary protein, ingestion of creatine, extra-renal metabolism of creatinine, or treatment with medications that affect renal tubular creatinine secretion. Free PSA/Total PSA [Mass fraction] 7.3 g/dL 6.3 - 8.2 g/dL [facility] Work Phone: GFR/1.73 sq M.predicted among blacks MDRD (S/P/Bld) [Vol rate/Area] mL/min/{1.73_m2} >60 mL/min [facility] Work Phone: Glucose [Mass/Vol] 94 mg/dL 70 - 100 mg/dL [facility] Work Phone: Interpretation and review of laboratory results Abnormal [facility] Work Phone: [phone] Potassium [Moles/Vol] 4.0 mmol/L 3.5 - 5.1 mmol/L [facility] Work Phone: Sodium [Moles/Vol] 140 mmol/L 135 - 145 mmol/L [facility] Work Phone: Urea nitrogen (BldV) [Mass/Vol] 10 mg/dL 9 - 20 mg/dL [facility] Work Phone: ED Provider Noteon ED Provider Note [facility] EMERGENCY DEPARTMENT ENCOUNTER Pt Name: Dory Andrews Birthdate 2000 Date of evaluation: 04/01/2021 Provider: Maxwell Cramer PA-C CHIEF COMPLAINT Chief Complaint Patient presents with ? Addiction Problem Pt would like detox from etoh. pt states last drink was 5 days ago and has been going through wthdrawel. Pt states she has been having chills, nausea, vomiting, insomnia, and shaking. HISTORY OF PRESENT ILLNESS (Location/Symptom, Timing/Onset, Context/Setting, Quality, Duration, Modifying Factors, Severity) Note limiting factors. HPI I wore an N95 mask. Dory Andrews is a 20 y.o. female who presents to the emergency department for evaluation of alcohol detoxification and wanting inpatient detox. Patient states that she called [facility] and was told that they do not have beds available right now but she should go to the ER for medical admission. Patient is accompanied by mother as well. Patient states he has been having nausea, vomiting, insomnia, shakes. Patient states that she has had a seizure in the past but is not sure if that was from marijuana use or alcohol withdrawal. Patient states that she drinks about 1/5 of alcohol daily and thinks that her last drink was about 4 to 5 days ago and states that she is been feeling like crap ever since. Patient is from [place] and was told to come here for medical admission. Patient states that she is vaccinated for COVID-19. Patient denies suicidal homicidal ideations. Patient admits to occasional cocaine use as well as marijuana use. Patient states that she uses cocaine orally or snorts it. Patient denies any IV drug use or any other illicit drug use. Patient denies lightheadedness, dizziness, shortness of breath, cough, chest pain, chest tightness, abdominal pain, dysuria, hematuria, numbness tingling to extremities, rash, lower extremity edema. Nursing Notes were reviewed. REVIEW OF SYSTEMS (2+ for level 4; 10+ for level 5) At least 10 systems reviewed and otherwise acutely negative except as in the NISQUALLY. PAST MEDICAL HISTORY History reviewed. No pertinent past medical history. SURGICAL HISTORY History reviewed. No pertinent surgical history. CURRENT MEDICATIONS Previous Medications No medications on file ALLERGIES Patient has no known allergies. FAMILY HISTORY History reviewed. No pertinent family history. SOCIAL HISTORY Social History Socioeconomic History ? Marital status: Single Spouse name: None ? Number of children: None ? Years of education: None ? Highest education level: None Occupational History ? None Tobacco Use ? Smoking status: Current Every Day Smoker Packs/day: 0.50 ? Smokeless tobacco: Never Used Vaping Use ? Vaping Use: Never used Substance and Sexual Activity ? Alcohol use: Yes Comment: 1/5 a day last drink 03/27 ? Drug use: Not Currently ? Sexual activity: None Other Topics Concern ? None Social History Narrative ? None Social Determinants of Health Financial Resource Strain: ? Difficulty of Paying Living Expenses: Food Insecurity: ? Worried About Running Out of Food in the Last Year: ? Ran Out of Food in the Last Year: Transportation Needs: ? Lack of Transportation (Medical): ? Lack of Transportation (Non-Medical): Physical Activity: ? Days of Exercise per Week: ? Minutes of Exercise per Session: Stress: ? Feeling of Stress : Social Connections: ? Frequency of Communication with Friends and Family: ? Frequency of Social Gatherings with Friends and Family: ? Attends Zoroastrianism Services: ? Active Member of Clubs or Organizations: ? Attends Club or Organization Meetings: ? Marital Status: Intimate Partner Violence: ? Fear of Current or Ex-Partner: ? Emotionally Abused: ? Physically Abused: ? Sexually Abused: SCREENINGS PHYSICAL EXAM (up to 7 for level 4, 8 or more for level 5) ED Triage Vitals BP Temp Temp Source Heart Rate Resp SpO2 Height Weight - Scale 04/01/21202204/01/21202204/01/21202204/01/21202204/01/21202204/01/21202204/01/21202204/01/212022 117/71 98.7 ?F (37.1 ?C) Temporal 92 18 95 % 5' 1 (1.549 m) 135 lb (61.2 kg) Physical Exam Vitals and nursing note reviewed. Constitutional: Appearance: Normal appearance. HENT: Head: Normocephalic and atraumatic. Nose: Nose normal. No congestion or rhinorrhea. Mouth/Throat: Mouth: Mucous membranes are moist. Pharynx: Oropharynx is clear. No oropharyngeal exudate or posterior oropharyngeal erythema. Eyes: General: No scleral icterus. Right eye: No discharge. Left eye: No discharge. Extraocular Movements: Extraocular movements intact. Conjunctiva/sclera: Conjunctivae normal. Pupils: Pupils are equal, round, and reactive to light. Cardiovascular: Rate and Rhythm: Normal rate and regular rhythm. Pulses: Normal pulses. Heart sounds: Normal heart sounds. No murmur heard. No fr (more content not included)... Normal [facility] ED Provider Note Emergency Department Encounter [facility] EMERGENCY DEPT Patient: Dory Andrews : 2000 Date of Evaluation: 04/01/2021 ED Provider: Lea Vences PA-C As the [id number], I performed a medical screening history and physical exam on this patient. An N95 and gloves were worn during the entirety of this encounter. HISTORY OF PRESENT ILLNESS In brief, Dory Andrews is a 20 y.o. female that presents for alcohol detox. Patient requesting inpatient alcohol detox. She complains of nausea, vomiting, chills, insomnia, shaking. Patient last drink 5 days ago. Patient is from [place], was told that [facility] had beds on Thursday. PHYSICAL EXAM ED Triage Vitals Enc Vitals Group BP 04/01/212022 117/71 Heart Rate 04/01/212022 92 Resp 04/01/212022 18 Temp 04/01/212022 98.7 ?F (37.1 ?C) Temp Source 04/01/212022 Temporal SpO2 04/01/212022 95 % Weight - Scale 04/01/212022 135 lb (61.2 kg) Height 04/01/212022 5' 1 (1.549 m) Head Circumference -- Peak Flow -- Pain Score -- Pain Loc -- Pain Edu? -- Excl. in GC? -- On brief exam, patient is ill-appearing. Responding appropriately to questions. Heart is regular rate and rhythm. Lungs good auscultation bilaterally. No obvious tremors noted to extremities. Did advise patient that there are no [facility] detox beds at this time. Patient requesting for symptomatic treatment at this time. She is willing to wait for labs, treatment. We will initiate diagnostics/treatments as indicated and place in main ED as soon as available. (Alice) Lea Vences PA-C [employer] Lea Vences PA-C 04/01/212046 [facility] ED Provider Note Chief Complaint Patient presents with ? Addiction Problem Pt would like detox from etoh. pt states last drink was 5 days ago and has been going through wthdrawel. Pt states she has been having chills, nausea, vomiting, insomnia, and shaking. Although initial hx and physical exam information was obtained by BRODIE Cramer, who also dictated a record of this visit. I independently examined and evaluated this patient and made all diagnostic, treatment and disposition decisions. Dory Andrews is a 20 y.o. female presenting with alcohol withdrawal. Patient states that she drinks regularly. Last drink was 4 to 5 days ago. States that all day today she has been very tremulous as well as persistent nausea and vomiting. Does intermittently use cocaine as well. Patient did receive a dose of Ativan prior to my evaluation does report improvement in her symptoms. Is here and interested in getting alcohol detox. I wore a N95 mask for the entirety of this encounter. On exam: Vital Signs: Reviewed Constitutional: No acute distress Head: Normocephalic, atraumatic Eyes: No scleral injection, no scleral icterus, no conjunctival erythema ENT: Oropharynx clear, MMM Neck: Supple, trachea midline Cardiovascular: RRR, no m/r/g Pulmonary: No evidence of labored breathing, clear to auscultation bilaterally Abdominal: Soft, nontender, nondistended Extremities: Warm, well perfused, no edema Neurological: AAO x 3, nonfocal, mild tremors Skin: Warm, dry, no rash Psych: No suicidal ideation Patient's lab work does show a negative alcohol level. Her vital signs have been unremarkable here. She does have some mild tremors consistent with some very mild alcohol withdrawal. [facility] unfortunately is full in the detoxification unit. Given her age and very high chance of relapse, we did to speak with [facility] to discuss medical detox here in the hospital. Patient was accepted by Dr. Murguia. Clinical Impression: Alcohol abuse, alcohol withdrawal Please note this report has been produced using speech recognition software and may contain errors related to that system including errors in grammar, punctuation, and spelling, as well as words and phrases that may be inappropriate. If there are questions or concerns please feel free to contact the dictating provider for clarification. Ting Crook MD 04/02/21 0014 Normal [facility] [place] EthanolOrdered By: Lea Vences on 04-01-2021 Ethanol Lvl <0.010 0.000 - 0.010 g/dL [employer] Work Phone: Comment on above: NOTE: This result is for medical treatment only. Analysis performed using non-forensic procedures. Ethanol Serum/Plasmaon 04-01 Ethanol-Serum/Plasm a < 0.010 Normal 0.000-0.010 [facility] [place] Comment on above: Result Comment: NOTE : This result is for medical treatment only. Analysis performed using non-forensic procedures. Performed By: #### C MP3, QWAL2, HEMDF, ETOH4 #### [facility] [address] [place] [phone] HCG Qualitative, SerumOrdere d By: Lea Vences on 04-01-2021 hCG Qual Negative [facility] Work Phone: Comment on above: Reference Range: NEG ATIVE Effective 09/23/2019, the reference interval for the qualitative test has been updated. This test detects hCG at concentrations of 10 mIU/L or greater in serum. Test Performed by [facility], [address] [place] [id number] [facility] Work Phone: [employer] Work Phone: Hemogram (CBC) w/Auto DiffOr dered By: Lea Vences on 04-01-2021 Absolute Baso # 0.0 10*3/uL 0.0 - 0.2 10*3/uL [facility] Work Phone: Absolute Neut # 5.2 10*3/uL 1.8 - 7.0 10*3/uL [facility] Work Phone: [phone] Basophils/100 WBC (Bld) 0.3 % 0.0 - 2.0 % [facility] Work Phone: [phone] Eosinophils (Bld) [#/Vol] 0.1 10*3/uL 0.0 - 0.5 10*3/uL [facility] Work Phone: [phone] Eosinophils/100 WBC (Bld) 0.8 % Low 1.0 - 6.0 % [facility] Work Phone: [phone] Granulocytes/100 WBC (Bld) 64.5 % 40.0 - 80.0 % [facility] Work Phone: [phone] Hematocrit (Bld) [Volume fraction] 41.1 % 35.0 - 47.0 % [facility] Work Phone: [phone] Hemoglobin.gastroin testinal spec 1 Ql (Stl) 13.9 g/dL 11.7 - 16.0 g/dL [facility] Work Phone: [phone] Interpretation and review of laboratory results Abnormal [facility] Work Phone: [phone] Lymphocytes (Bld) [#/Vol] 2.0 10*3/uL 1.0 - 4.3 10*3/uL [facility] Work Phone: [phone] Lymphocytes/100 WBC (Bld) 24.8 % 20.0 - 40.0 % [facility] Work Phone: [phone] MCH (RBC) [Entitic mass] 32.4 pg 26.0 - 34.0 pg [facility] Work Phone: [phone] MCHC (RBC) [Mass/Vol] 33.9 % 32.0 - 36.0 % [facility] Work Phone: [phone] MCV (RBC) [Entitic vol] 95.5 fL 79.0 - 98.0 fL [facility] Work Phone: [phone] Monocytes (Bld) [#/Vol] 0.8 10*3/uL 0.0 - 0.8 10*3/uL [facility] Work Phone: [phone] Monocytes/100 WBC (Bld) 9.6 % 2.0 - 10.0 % [facility] Work Phone: Platelet distribution width (Bld) [Ratio] 13.7 % 11.5 - 14.5 % [facility] Work Phone: [phone] Platelet mean volume (Bld) [Entitic vol] 8.3 fL 7.4 - 10.4 fL [facility] Work Phone: [phone] Platelets (Bld) [#/Vol] 233 10*3/uL 140 - 440 10*3/uL [facility] Work Phone: [phone] RBC (Bld) [#/Vol] 4.30 10*6/uL 3.80 - 5.2 0 10*6/uL [facility] Work Phone: [phone] WBC (Bld) [#/Vol] 8.0 10*3/uL 3.6 - 10.7 10*3/uL [facility] Work Phone: [phone] Test Performed by [facility], [address] [place] [id number] [facility] Work Phone: [phone] [facility] Work Phone: [phone] Hemogram w/ Autodiffon 04-01 Abs Baso Cnt 0.0 10*3/uL Normal 0.0-0.2 [facility] Comment on above: Performed By: #### C MP3, QWAL2, HEMDF, ETOH4 #### [facility] [address] [place] [phone] Abs Neutrophile Cnt 5.2 10*3/uL Normal 1.8-7.0 [facility] Comment on above: Performed By: #### C MP3, QWAL2, HEMDF, ETOH4 #### [facility] [address] [place] [address] Basophils/100 WBC (Bld) 0.3 % Normal 0.0-2.0 [facility] Comment on above: Performed By: #### C MP3, QWAL2, HEMDF, ETOH4 #### [facility] [address] [place] [address] Eosinophils (Bld) [#/Vol] 0.1 10*3/uL Normal 0.0-0.5 [facility] Comment on above: Performed By: #### C MP3, QWAL2, HEMDF, ETOH4 #### [place] [address] [place] Eosinophils/100 WBC (Bld) 0.8 % Low 1.0-6.0 [facility] Comment on above: Performed By: #### C MP3, QWAL2, HEMDF, ETOH4 #### [place] [address] [place] Erythrocyte distribution width (RBC) [Ratio] 13.7 % Normal 11.5-14.5 [facility] Comment on above: Performed By: #### C MP3, QWAL2, HEMDF, ETOH4 #### [place] [address] [place] Granulocytes/100 WBC (Bld) 64.5 % Normal 40.0-80.0 [facility] Comment on above: Performed By: #### C MP3, QWAL2, HEMDF, ETOH4 #### [place] [address] [place] Hematocrit (Bld) [Volume fraction] 41.1 % Normal 35.0-47.0 [facility] Comment on above: Performed By: #### C MP3, QWAL2, HEMDF, ETOH4 #### [place] [address] [place] Hemoglobin (Bld) [Mass/Vol] 13.9 g/dL Normal 11.7-16.0 [facility] Comment on above: Performed By: #### C MP3, QWAL2, HEMDF, ETOH4 #### [place] [address] [place] Lymphocytes (Bld) [#/Vol] 2.0 10*3/uL Normal 1.0-4.3 [facility] Comment on above: Performed By: #### C MP3, QWAL2, HEMDF, ETOH4 #### [place] [address] [place] Lymphocytes/100 WBC (Bld) 24.8 % Normal 20.0-40.0 [facility] Comment on above: Performed By: #### C MP3, QWAL2, HEMDF, ETOH4 #### [place] [address] [place], [place] MCH (RBC) [Entitic mass] 32.4 pg Normal 26.0-34.0 [facility] Comment on above: Performed By: #### C MP3, QWAL2, HEMDF, ETOH4 #### [place] [address] [place] MCHC 33.9 % Normal 32.0-36.0 [facility] Comment on above: Performed By: #### C MP3, QWAL2, HEMDF, ETOH4 #### [address] MCV (RBC) [Entitic vol] 95.5 fL Normal 79.0-98.0 [facility] Comment on above: Performed By: #### C MP3, QWAL2, HEMDF, ETOH4 #### [address] Monocytes (Bld) [#/Vol] 0.8 10*3/uL Normal 0.0-0.8 [facility] Comment on above: Performed By: #### C MP3, QWAL2, HEMDF, ETOH4 #### [address] Monocytes/100 WBC (Bld) 9.6 % Normal 2.0-10.0 [facility] Comment on above: Performed By: #### C MP3, QWAL2, HEMDF, ETOH4 #### [place] [address] [place], [place] Platelet mean volume (Bld) [Entitic vol] 8.3 fL Normal 7.4-10.4 [facility] Comment on above: Performed By: #### C MP3, QWAL2, HEMDF, ETOH4 #### [address] Platelets (Bld) [#/Vol] 233 10*3/uL Normal 140-440 [facility] Comment on above: Performed By: #### C MP3, QWAL2, HEMDF, ETOH4 #### [address] RBC (Bld) [#/Vol] 4.30 10*6/uL Normal 3.80-5.20 [facility] Comment on above: Performed By: #### C MP3, QWAL2, HEMDF, ETOH4 #### [address] WBC (Bld) [#/Vol] 8.0 10*3/uL Normal 3.6-10.7 [facility] Comment on above: Performed By: #### C MP3, QWAL2, HEMDF, ETOH4 #### [address] No Panel InformationOrdered By: Lea Vences on 04-01-2021 Test Performed by [facility], [address] [place] [id number] [facility] Work Phone: [phone] [facility] Work Phone: Urine Drug ScreenOrdered By: Lea Vences on 04-01-2021 Amphetamines, urine Negative [facility] Work Phone: Barbiturates, Ur Negative [facility] Work Phone: Benzodiazepine Ur Qual Negative [facility] Work Phone: Cocaine Metabolites, Ur Negative [facility] Work Phone: Methadone, Urine Negative [facility] Work Phone: Opiates, Urine Negative [facility] Work Phone: Oxycodone Screen, Ur Negative [facility] Work Phone: PCP, Urine Negative [facility] Work Phone: Comment on above: The expected value f or all of the drugs listed above is Negative. The following drugs or drug groups have been screened for by Immunoassay at the following thresholds: Amphetamine class (1000 ng/mL), Barbiturates (200 ng/mL), Benzodiazepines (200 ng/mL), Cocaine (300 ng/mL), Methadone (300 ng/mL), Opiates (300 ng/mL), Oxycodone (100 ng/mL), and PCP (25 ng/mL). NOTE: These results are for medical treatment only. Analysis performed using non-forensic procedures. POSITIVE results are NOT confirmed by a more specific alternative method unless requested. If confirmation is needed, request confirmation under separate order. Test Performed by [facility], [address] [place] [id number] [facility] Work Phone: [employer] Work Phone: hCG Qual Pregon 04-01-2021 hCG Qual Preg Negative Normal [facility] Comment on above: Result Comment: Refe rence Range: NEGATIVE Effective 09/23/2019, the reference interval for the qualitative test has been updated. This test detects hCG at concentrations of 10 mIU/L or greater in serum. Performed By: #### C MP3, QWAL2, HEMDF, ETOH4 #### [address] [id number] C. trachomatis Amplified Pro beon 01-27-2018 C. trachomatis Amplified Probe C. trachomatis Amplified Probe: NEGATIVE. No Chlamydia trachomatis DNA detected. Source: URINE Collected: 01/27/18 16:10 Site: Received : 01/27/18 16:59C. trachomatis Amplified Probe FINAL 01/28/18 13:15 NEGATIVE. No Chlamydia trachomatis DNA detected. - Method: DNA Probe Detection by Strand Displacement Amplification Assay. - NOTE: This Ampified DNA Assay should not be used for the evaluation of suspected sexual abuse or for other medico-legal indications. - Screening urine specimens for Chlamydia trachomatis and Neisseria gonorrhoeae using nucleic acid amplification is an accurate and sensitive method compared to standard techniques of detection of these pathogens. Because the pathogen is diluted in urine, it is somewhat less sensitive than a direct swab specimen evaluated by nucleic acid amplification techniques. Normal [facility] Comment on above: Performed By: #### U FMIC ####[address] [phone] GC Amplified Probeon 018 Protein mass conc GC Amplified Probe: NEGATIVE. No Neisseria gonorrhoeae DNA detected. Source: URINE Collected: 01/27/18 16:10 Site: Received : 01/27/18 16:59GC Amplified Probe FINAL 01/28/18 13:17 NEGATIVE. No Neisseria gonorrhoeae DNA detected. - Method: DNA Probe Detection by Strand Displacement Amplification Assay. - NOTE: This Amplified DNA Assay should not be used for the evaluation of suspected sexual abuse or for other medico-legal indications. - Screening urine specimens for Chlamydia trachomatis and Neisseria gonorrhoeae using nucleic acid amplification is an accurate and sensitive method compared to standard techniques of detection of these pathogens. Because the pathogen is diluted in urine, it is somewhat less sensitive than a direct swab specimen evaluated by nucleic acid amplification techniques. Normal [facility] Comment on above: Performed By: #### U [facility] ####[facility] of [address] [phone] US DUPLEX ABDOMEN PELVIS COM PLETEon 01-27-2018 US DUPLEX ABDOMEN PELVIS COMPLETE CLINICAL HISTORY: IUD placement.TECHNIQUE: Transvaginal sadler scale, color and spectral Doppler ultrasound ofthe uterus and adnexa was performed.COMPARISON: None.FINDINGS:UTERUS: The uterus measures 6.0 x 2.4 x 3.5 cm. Echogenic endometrial stripe is 0.7 mm in thickness. There is an IUD in the uterus.RIGHT OVARY: The right ovary measures 3.3 x 1.7 x 2.5 cm, approximate rightovarian volume of 7.3 mL.LEFT OVARY: The left ovary measures 3.4 x 1.2 x 2.2 cm, approximate left ovarian volume of 4.4 mL.DOPPLER: Spectral doppler evaluation of each ovary demonstrates arterialwaveforms in each ovary. Venous waveforms are also present on the spectraltracings. The overall color flow is symmetric in both ovaries.OTHER: No significant free fluid.IMPRESSION:Normal ultrasound and doppler evaluation of the uterus and adnexa. There is anIUD in the uterus.This report has been created using voice recognition softwareSigned by: Dr. Je Monte at 01/27/2018 19:01 Normal [facility] US TRANSVAGINALon 01-27-2018 US TRANSVAGINAL CLINICAL HISTORY: IU D placement.TECHNIQUE: Transvaginal sadler scale, color and spectral Doppler ultrasound ofthe uterus and adnexa was performed.COMPARISON: None.FINDINGS:UTERUS: The uterus measures 6.0 x 2.4 x 3.5 cm. Echogenic endometrial stripe is 0.7 mm in thickness. There is an IUD in the uterus.RIGHT OVARY: The right ovary measures 3.3 x 1.7 x 2.5 cm, approximate rightovarian volume of 7.3 mL.LEFT OVARY: The left ovary measures 3.4 x 1.2 x 2.2 cm, approximate left ovarian volume of 4.4 mL.DOPPLER: Spectral doppler evaluation of each ovary demonstrates arterialwaveforms in each ovary. Venous waveforms are also present on the spectraltracings. The overall color flow is symmetric in both ovaries.OTHER: No significant free fluid.IMPRESSION:Normal ultrasound and doppler evaluation of the uterus and adnexa. There is anIUD in the uterus.This report has been created using voice recognition softwareSigned by: Dr. Je Monte at 01/27/2018 19:00 Normal [facility] Urinalysis,Automatedon 01-27 Bacteria Moderate Normal [facility] Comment on above: Performed By: #### U ACOM ####[address] [phone] Epithelial cells.squamous LM.HPF #/area (Urine sed) 9 /uL Normal 0-20 [facility] Comment on above: Performed By: #### U ACOM ####[address] [phone] INR Coag RelTime (Bld) 2.0 /uL Normal 0.0-20.0 [facility] Comment on above: Performed By: #### U ACOM ####[address] [phone] Mucous Small Normal [facility] Comment on above: Performed By: #### U ACOM ####[address] [phone] WBC 3.0 /uL Normal 0.0-20.0 [facility] Comment on above: Performed By: #### U ACOM ####[facility] of [address] [phone] Urinalysis,Completeon 2017 Volume 12 ml Normal 12 [facility] Comment on above: Performed By: #### U ACOM ####[facility] of [address] [phone] Bilirubin,urine Negative Normal Negative [facility] Comment on above: Performed By: #### U ACOM ####[facility] of [address] [phone] Character Clear Normal [facility] Comment on above: Performed By: #### U ACOM ####[facility] of [address] [phone] Color Straw Normal [facility] Comment on above: Performed By: #### U ACOM ####[facility] [address] [phone] Glucose Ql (U) Negative Normal Negative [facility] Comment on above: Performed By: #### U ACOM ####[facility] of [address] [phone] Hemoglobin Negative Normal Negative [facility] Comment on above: Performed By: #### U ACOM ####[facility] of [address] [phone] Ketones Negative Normal Negative [facility] Comment on above: Performed By: #### U ACOM ####[facility] of [address] [phone] Leukocyte Esterase Negative Normal Negative [facility] Comment on above: Performed By: #### U ACOM ####[facility] of [address] [phone] Nitrites Negative Normal Negative [facility] Comment on above: Performed By: #### U ACOM ####[address] [phone] pH Test strip (U) 6.0 Normal 5.0-8.0 [facility] Comment on above: Performed By: #### U ACOM ####[address] [phone] Protein mass conc Negative Normal Neg.-Trace [facility] Comment on above: Performed By: #### U ACOM ####[address] [phone] Specific gravity 1.011 Normal 1.005-1.030 [facility] Comment on above: Performed By: #### U ACOM ####[address] [phone] Urobilinogen 0.2 mg/dl Normal Negative [facility] Comment on above: Performed By: #### U ACOM ####[address] [phone] Comp Metabolic Panelon 01-26 Albumin mass conc 4.8 g/dL High 3.2-4.5 [facility] Comment on above: Performed By: #### U ACOM ####[address] [phone] ALP enzyme act/vol 77 U/L Normal 47-119 [facility] Comment on above: Performed By: #### U ACOM ####[address] [phone] ALT enzyme act/vol 9 U/L Normal 0-31 [facility] Comment on above: Performed By: #### U ACOM ####[address] [phone] AST enzyme act/vol 19 U/L Normal 0-31 [facility] Comment on above: Performed By: #### U ACOM ####[address] [phone] Bili,Total 1.4 mg/dl High 0.0-1.0 [facility] Comment on above: Result Comment: Juan Antonio ature : 1 Day 1.0-6.0 mg/dl 2 Day 6.0-8.0 mg/dl 3-5 Day 10.0-15.0 mg/dl Performed By: #### U ACOM ####[address] [phone] Calcium mass conc 9.6 mg/dL Normal 7.6-11.0 [facility] Comment on above: Performed By: #### U ACOM ####[address] [phone] Chloride molar conc 105 mmol/L Normal 96-108 [facility] Comment on above: Performed By: #### U ACOM ####[address] [phone] CO2 molar conc 26.5 mmol/L Normal 22.0-29.0 [facility] Comment on above: Performed By: #### U ACOM ####[address] [phone] Creatinine mass conc 0.56 mg/dL Normal 0.50-1.00 [facility] Comment on above: Result Comment: Juan Antonio ature 0.3-1.0 mg/dL Performed By: #### U ACOM ####[address] [phone] Glucose mass conc 81 mg/dL Normal 70-99 [facility] Comment on above: Result Comment: Rell ramirez for Diagnosis of Diabetes(Effective 12/16/10):Fasting specimen (no caloric intake for at least 8 hours). <100 mg/dl Normal 100-125 mg/dl Increased Risk for Diabetes >125 mg/dl Diagnostic for DiabetesRandom Glucose (any time of day without regard to last meal). >=200 mg/dl plus Classic Symptoms of Diabetes Performed By: #### U ACOM ####[address] [phone] Potassium molar conc 4.0 mmol/L Normal 3.3-5.1 [facility] Comment on above: Performed By: #### U ACOM ####[address] [phone] Protein mass conc 7.6 g/dL Normal 5.9-8.4 [facility] Comment on above: Performed By: #### U ACOM ####[address] [phone] Sodium molar conc 139 mmol/L Normal 133-145 [facility] Comment on above: Performed By: #### U ACOM ####[address] [phone] Urea nitrogen mass conc 6 mg/dL Normal 4-19 [facility] Comment on above: Performed By: #### U ACOM ####[address] [phone] Complete Blood Counton 01-26 Differential Complete Automated Normal [facility] Comment on above: Performed By: #### U ACOM ####[address] [phone] % Neutrophils 64.9 % High 34.0-64.0 [facility] Comment on above: Performed By: #### U ACOM ####[address] [phone] Basophils/100 WBC Auto (Bld) 0.60 % Normal 0.00-1.00 [facility] Comment on above: Performed By: #### U ACOM ####[address] [phone] Eosinophils/100 WBC Auto (Bld) 0.40 % Normal 0.00-3.00 [facility] Comment on above: Performed By: #### U ACOM ####[address] [phone] Erythrocyte distribution width Auto Ratio (RBC) 12.0 % Normal 0.0-14.4 [facility] Comment on above: Performed By: #### U ACOM ####[address] [phone] Hematocrit Auto Volume Fraction (Bld) 44.3 % Normal 37.0-46.0 [facility] Comment on above: Performed By: #### U ACOM ####[address] [phone] Hemoglobin mass conc (Bld) 15.0 g/dL Normal 12.0-15.0 [facility] Comment on above: Performed By: #### U ACOM ####[address] [phone] Immature granulocytes/100 WBC (Bld) 0.30 % Normal [facility] Comment on above: Result Comment: Ciara ture Granulocyte Percent includes promyelocytes, myelocytes,and metamyelocytes. IG% > 1.0 indicates a left shift ispresent. With automated differentials, bands are includedin the neutrophil count and not in the Immature GranulocytePercent. Performed By: #### U ACOM ####[address] [phone] Lymphocytes/100 WBC Auto (Bld) 26.2 % Normal 25.0-45.0 [facility] Comment on above: Performed By: #### U ACOM ####[address] [phone] MCH Auto Entitic mass (RBC) 31.3 pg Normal 25.0-35.0 [facility] Comment on above: Performed By: #### U ACOM ####[address] [phone] MCHC Auto mass conc (RBC) 33.9 % Normal 31.0-37.0 [facility] Comment on above: Performed By: #### U ACOM ####[address] [phone] MCV Auto Entitic volume (RBC) 92.5 fL Normal 78.0-96.0 [facility] Comment on above: Performed By: #### U ACOM ####[address] [phone] Monocytes/100 WBC Auto (Bld) 7.60 % High 3.00-6.00 [facility] Comment on above: Performed By: #### U ACOM ####[address] [phone] Neutrophils Auto #/vol (Bld) 4.4 Normal [facility] Comment on above: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 rash.Neurological: Negative for dizziness and syncope.Psychiatric/Behavi oral: Positive for dysphoric mood and suicidal ideas. Negativefor hallucinations and self-injury.Past Medical History:Diagnosis Date Suicidal ideations 03/01/2017 Uncomplicated asthmaHistory reviewed. No pertinent surgical history.Pediatric HistoryPatient Guardian Status Guardian: Sandy Hanley (Legal Guardian)Other Topics Concern Not on fileSocial History Narrative No narrative on filePhysical ExamConstitutional: She is oriented to person, place, and time. She appearswell-developed. No distress.HENT:Head: Normocephalic.Right Ear: External ear normal.Left Ear: External ear normal.Eyes: Conjunctivae and EOM are normal. Pupils are equal, round, and reactive tolight. Right eye exhibits no discharge. Left eye exhibits no discharge.Neck: Normal range of motion. No JVD present.Cardiovascular: Normal rate, regular rhythm and normal heart sounds. Examreveals no gallop and no friction rub.No murmur heard.Pulmonary/Chest: Effort normal. No stridor. No respiratory distress. She has nowheezes. She has no rales.Abdominal: Soft. She exhibits no distension.Musculoskeletal : Normal range of motion. She exhibits no edema or deformity.Neurological: She is alert and oriented to person, place, and time.Skin: Skin is warm. Capillary refill takes less than 2 seconds. She is notdiaphoretic. No pallor.Small superficial linear scarring to the B/L ventral forearms. No recent cuts.Psychiatric: She has a normal mood and affect. Her behavior is normal.Nursing note and vitals reviewed.ProceduresMDMNumb er of Diagnoses or Management OptionsDiagnosis management comments: Pt seen and examined. Continues to be suicidalbut does not have plan. She denies current attempt to harm herself and noevidence was found on physical exam.Pt is medically cleared. Recommend that the pt be evaluated by [facility] in the AM.Pt signed out to Dr. Malcolm.ED Course:Diagnosis' considered: mood disorderLabs/Radiology:Con sults: No orders of the defined types were placed in this encounter.Medical Record/Transferring Institution Record:Treatment/Reassessm ent:Medical Decision Making as of May 31 959Sun May [id number] Dispo per [facility] [OE]6516 Pt was signed out at & am from Dr bolton. Pt was evaluated by [facility]. Pt wasadmitted for further management per [facility] recommendation. [OE]7356 Patient signed our from previous resident. Disposition for admission perP[facility]C recommendations. Admit to psych. [DB]Medical Decision Making User Index[DB] Wu Russell MD[OE] Osama N El Assal, MDDiagnosis to highest level of medical certainty/planMood DisorderAttending note:16 yof with suicidal ideation after being place with gandmother after pt'smother suffered a TBI and started posting online howImpactRxy the pt was.Observed overnight in [facility], then evaluated by [facility] in morning: Recommendedadmission for furtehr managementI supervised the management of this patient with the resident. I reviewed thehistory and exam findings by the resident. I repeated the history with thepatient/family and pertinent portions of the exam. Management plans weredeveloped with the resident and discussed with the family. The above notereflects my evaluation and assessment of this patient. Disposition wasdiscussed with the patient/family. Normal [facility] HCG,Urineon 05-31-2017 HCG.beta subunit ( test) Ql (U) Negative Normal [facility] Comment on above: Result Comment: Nonp regnant females and males-Negative females-Positive Performed By: #### H CGUR ####[address] [phone] Urinalysis,Automatedon 05-31 Bacteria Many Normal [facility] Comment on above: Performed By: #### U FMIC ####[address] [phone] Epithelial cells.squamous LM.HPF #/area (Urine sed) 12 /uL Normal 0-20 [facility] Comment on above: Performed By: #### U FMIC ####[address] [phone] INR Coag RelTime (Bld) 5.0 /uL Normal 0.0-20.0 [facility] Comment on above: Performed By: #### U FMIC ####[address] [phone] Mucous Small Normal [facility] Comment on above: Performed By: #### U FMIC ####[address] [phone] WBC 27.0 /uL High 0.0-20.0 [facility] Comment on above: Performed By: #### U FMIC ####[facility] [address] [phone] Urinalysis,Completeon 2016 Volume 12 ml Normal 12 [facility] Comment on above: Performed By: #### U ACOM ####[facility] [address] [phone] Bilirubin,urine Negative Normal Negative [facility] Comment on above: Performed By: #### U ACOM ####[facility] [address] [phone] Character Hazy Normal [facility] Comment on above: Performed By: #### U ACOM ####[facility] [address] [phone] Color Straw Normal [facility] Comment on above: Performed By: #### U ACOM ####[facility] [address] [phone] Glucose Ql (U) Negative Normal Negative [facility] Comment on above: Performed By: #### U ACOM ####[facility] [address] [phone] Hemoglobin Negative Normal Negative [facility] Comment on above: Performed By: #### U ACOM ####[facility] [address] [phone] Ketones TRACE Normal Negative [facility] Comment on above: Performed By: #### U ACOM ####[facility] [address] [phone] Leukocyte Esterase 2+ leuk/ul Abnormal Negative [facility] Comment on above: Performed By: #### U ACOM ####[facility] [address] [phone] Nitrites Negative Normal Negative [facility] Comment on above: Performed By: #### U ACOM ####[facility] [address] [phone] pH Test strip (U) 6.0 Normal 5.0-8.0 [facility] Comment on above: Performed By: #### U ACOM ####[address] [phone] Protein mass conc Negative Normal Neg.-Trace [facility] Comment on above: Performed By: #### U ACOM ####[facility] [address] [phone] Specific gravity 1.011 Normal 1.005-1.030 [facility] Comment on above: Performed By: #### U ACOM ####[facility] [address] [phone] Urobilinogen 0.2 mg/dl Normal Negative [facility] Comment on above: Performed By: #### U ACOM ####[facility] [address] [phone] Vital Signs Date Time Vital Sign Value Performing Clinician Facility 12-16-2024 13:02-0400 Body mass index (BMI) [Ratio] 22.86 kg/m2 Dee Roca PA-C Work Phone: [facility] 12-16-2024 13:02-0400 Body temperature 98.6 [degF] Dee Roca PA-C Work Phone: [facility] 12-16-2024 13:02-0400 Body weight 56.7 kg Dee Roca PA-C Work Phone: [facility] 12-16-2024 13:02-0400 Diastolic blood pressure 70 mm[Hg] Dee Roca PA-C Work Phone: [facility] 12-16-2024 13:02-0400 Heart rate 83 /min Dee SHIC Work Phone: [facility] 12-16-2024 13:02-0400 Respiratory rate 16 /min Dee Roca PA-C Work Phone: [facility] 12-16-2024 13:02-0400 SaO2% (BldA) [Mass fraction] 98 % Dee Roca PA-C Work Phone: [facility] 12-16-2024 13:02-0400 Systolic blood pressure 100 mm[Hg] Dee Roca PA-C Work Phone: [facility] 11-25-2024 14:39-0400 Diastolic blood pressure 64 mm[Hg] Salma Pandey MD Work Phone: [facility] 11-25-2024 14:39-0400 Heart rate 86 /min Salma Pnadey MD Work Phone: [facility] 11-25-2024 14:39-0400 Systolic blood pressure 100 mm[Hg] Salma Pandey MD Work Phone: [facility] 11-25-2024 14:02-0400 Body mass index (BMI) [Ratio] 23.41 kg/m2 Salma Pandey MD Work Phone: [facility] 11-25-2024 14:02-0400 Body temperature 98.71 [degF] Salma Pandey MD Work Phone: [facility] 11-25-2024 14:02-0400 Body weight 58.06 kg Salma Pandey MD Work Phone: [facility] 11-25-2024 14:02-0400 SaO2% (BldA) [Mass fraction] 99 % Salma Pandey MD Work Phone: [facility] 10-18-2024 11:32-0400 Body mass index (BMI) [Ratio] 24.14 kg/m2 Daisy Hilliard APRN.CNJulita Work Phone: [facility] 10-18-2024 11:32-0400 Body weight 59.88 kg Daisy Hilliard APRN.CNM Work Phone: [facility] 10-18-2024 11:32-0400 Diastolic blood pressure 56 mm[Hg] Daisy Hilliard PROVIDER NETWORK ANALYST.CNM Work Phone: [facility] 10-18-2024 11:32-0400 Systolic blood pressure 98 mm[Hg] Daisy Hilliard PROVIDER NETWORK ANALYST.CNM Work Phone: [facility] 10-17-2024 16:15-0400 Diastolic blood pressure 67 mm[Hg] Frankie Varela PROVIDER NETWORK ANALYST.OIL WELL CABLE TOOL OPERATOR Work Phone: [facility] 10-17-2024 16:15-0400 Heart rate 76 /min Frankie Varela PROVIDER NETWORK ANALYST.OIL WELL CABLE TOOL OPERATOR Work Phone: [facility] 10-17-2024 16:15-0400 Systolic blood pressure 108 mm[Hg] Frankie Varela PROVIDER NETWORK ANALYST.OIL WELL CABLE TOOL OPERATOR Work Phone: [facility] 10-14-2024 10:50-0400 Body mass index (BMI) [Ratio] 24.32 kg/m2 Lesli Solano PROVIDER NETWORK ANALYST.OIL WELL CABLE TOOL OPERATOR Work Phone: [facility] 10-14-2024 10:50-0400 Body weight 60.33 kg Lesli Solano PROVIDER NETWORK ANALYST.OIL WELL CABLE TOOL OPERATOR Work Phone: [facility] 10-14-2024 10:50-0400 Diastolic blood pressure 60 mm[Hg] Lesli Solano PROVIDER NETWORK ANALYST.OIL WELL CABLE TOOL OPERATOR Work Phone: [facility] 10-14-2024 10:50-0400 Systolic blood pressure 110 mm[Hg] Lesli Solano PROVIDER NETWORK ANALYST.OIL WELL CABLE TOOL OPERATOR Work Phone: [facility] 10-11-2024 11:17-0400 Body mass index (BMI) [Ratio] 23.78 kg/m2 Frankie Varela PROVIDER NETWORK ANALYST.OIL WELL CABLE TOOL OPERATOR Work Phone: [facility] 10-11-2024 11:17-0400 Body weight 59 kg Frankie Varela APRN.OIL WELL CABLE TOOL OPERATOR Work Phone: [facility] 10-11-2024 11:17-0400 Diastolic blood pressure 65 mm[Hg] Frankie Varela PROVIDER NETWORK ANALYST.OIL WELL CABLE TOOL OPERATOR Work Phone: [facility] 10-11-2024 11:17-0400 Heart rate 71 /min Frankie Varela PROVIDER NETWORK ANALYST.OIL WELL CABLE TOOL OPERATOR Work Phone: [facility] 10-11-2024 11:17-0400 Systolic blood pressure 111 mm[Hg] Frankie Varela PROVIDER NETWORK ANALYST.OIL WELL CABLE TOOL OPERATOR Work Phone: [facility] 10-10-2024 13:21-0400 Body mass index (BMI) [Ratio] 24.31 kg/m2 Daisy Diego PROVIDER NETWORK ANALYST.OIL WELL CABLE TOOL OPERATOR Work Phone: [facility] 10-10-2024 13:21-0400 Body temperature 98.1 [degF] Daisy Diego PROVIDER NETWORK ANALYST.OIL WELL CABLE TOOL OPERATOR Work Phone: [facility] 10-10-2024 13:21-0400 Body weight 60.3 kg Daisy Diego PROVIDER NETWORK ANALYST.OIL WELL CABLE TOOL OPERATOR Work Phone: [facility] 10-10-2024 13:21-0400 Diastolic blood pressure 78 mm[Hg] Daisy Diego PROVIDER NETWORK ANALYST.OIL WELL CABLE TOOL OPERATOR Work Phone: [facility] 10-10-2024 13:21-0400 Heart rate 89 /min Daisy Diego PROVIDER NETWORK ANALYST.OIL WELL CABLE TOOL OPERATOR Work Phone: [facility] 10-10-2024 13:21-0400 Respiratory rate 18 /min Daisyalmita Diego PROVIDER NETWORK ANALYST.OIL WELL CABLE TOOL OPERATOR Work Phone: [facility] 10-10-2024 13:21-0400 SaO2% (BldA) [Mass fraction] 97 % Daisy Diego PROVIDER NETWORK ANALYST.OIL WELL CABLE TOOL OPERATOR Work Phone: [facility] 10-10-2024 13:21-0400 Systolic blood pressure 110 mm[Hg] Daisy Diego PROVIDER NETWORK ANALYST.OIL WELL CABLE TOOL OPERATOR Work Phone: [facility] 10-08-2024 12:58-0400 Body mass index (BMI) [Ratio] 24.83 kg/m2 Wu Salcedo PROVIDER NETWORK ANALYST.OIL WELL CABLE TOOL OPERATOR Work Phone: [facility] 10-08-2024 12:58-0400 Body temperature 99.19 [degF] Wu Pendlebury PROVIDER NETWORK ANALYST.OIL WELL CABLE TOOL OPERATOR Work Phone: [facility] 10-08-2024 12:58-0400 Body weight 61.6 kg [facility] PROVIDER NETWORK ANALYST.OIL WELL CABLE TOOL OPERATOR Work Phone: [facility] 10-08-2024 12:58-0400 Diastolic blood pressure 60 mm[Hg] Wu Pendlebury PROVIDER NETWORK ANALYST.OIL WELL CABLE TOOL OPERATOR Work Phone: [facility] 10-08-2024 12:58-0400 Heart rate 68 /min Wu Pendlebury PROVIDER NETWORK ANALYST.OIL WELL CABLE TOOL OPERATOR Work Phone: [facility] 10-08-2024 12:58-0400 Respiratory rate 16 /min [facility] PROVIDER NETWORK ANALYST.OIL WELL CABLE TOOL OPERATOR Work Phone: [facility] 10-08-2024 12:58-0400 SaO2% (BldA) [Mass fraction] 98 % [facility] PROVIDER NETWORK ANALYST.OIL WELL CABLE TOOL OPERATOR Work Phone: [facility] 10-08-2024 12:58-0400 Systolic blood pressure 112 mm[Hg] Wu Pendlebury PROVIDER NETWORK ANALYST.OIL WELL CABLE TOOL OPERATOR Work Phone: [facility] 09-22-2024 17:22-0400 Body mass index (BMI) [Ratio] 24.19 kg/m2 Wilver Moomaw PROVIDER NETWORK ANALYST.OIL WELL CABLE TOOL OPERATOR Work Phone: [facility] 09-22-2024 17:22-0400 Body temperature 99.19 [degF] Wilver Moomaw PROVIDER NETWORK ANALYST.OIL WELL CABLE TOOL OPERATOR Work Phone: [facility] 09-22-2024 17:22-0400 Body weight 60 kg Wilver Moomaw PROVIDER NETWORK ANALYST.OIL WELL CABLE TOOL OPERATOR Work Phone: [facility] 09-22-2024 17:22-0400 Diastolic blood pressure 72 mm[Hg] Wilver Moomaw PROVIDER NETWORK ANALYST.OIL WELL CABLE TOOL OPERATOR Work Phone: [facility] 09-22-2024 17:22-0400 Heart rate 83 /min Wilver Moomaw PROVIDER NETWORK ANALYST.OIL WELL CABLE TOOL OPERATOR Work Phone: [facility] 09-22-2024 17:22-0400 Respiratory rate 18 /min Wilver Garcia PROVIDER NETWORK ANALYST.OIL WELL CABLE TOOL OPERATOR Work Phone: [facility] 09-22-2024 17:22-0400 SaO2% (BldA) [Mass fraction] 98 % Wilver Mitchellw PROVIDER NETWORK ANALYST.OIL WELL CABLE TOOL OPERATOR Work Phone: [facility] 09-22-2024 17:22-0400 Systolic blood pressure 117 mm[Hg] Wilver Garcia PROVIDER NETWORK ANALYST.OIL WELL CABLE TOOL OPERATOR Work Phone: [facility] 09-19-2024 16:06-0400 Body mass index (BMI) [Ratio] 23.78 kg/m2 Frankie Varela PROVIDER NETWORK ANALYST.OIL WELL CABLE TOOL OPERATOR Work Phone: [facility] 09-19-2024 16:06-0400 Body weight 59 kg Frankie Varela PROVIDER NETWORK ANALYST.OIL WELL CABLE TOOL OPERATOR Work Phone: [facility] 09-19-2024 16:06-0400 Diastolic blood pressure 68 mm[Hg] Frankie Varela PROVIDER NETWORK ANALYST.OIL WELL CABLE TOOL OPERATOR Work Phone: [facility] 09-19-2024 16:06-0400 Heart rate 79 /min Frankie Varela PROVIDER NETWORK ANALYST.OIL WELL CABLE TOOL OPERATOR Work Phone: [facility] 09-19-2024 16:06-0400 Systolic blood pressure 102 mm[Hg] Frankie Varela PROVIDER NETWORK ANALYST.OIL WELL CABLE TOOL OPERATOR Work Phone: [facility] 08-29-2024 11:01-0500 Body mass index (BMI) [Ratio] 23.59 kg/m2 Sara Condon PROVIDER NETWORK ANALYST.CNM Work Phone: [facility] 08-29-2024 11:01-0500 Body weight 58.51 kg Sara Condon PROVIDER NETWORK ANALYST.CNM Work Phone: [facility] 08-29-2024 11:01-0500 Diastolic blood pressure 56 mm[Hg] Sara Condon PROVIDER NETWORK ANALYST.CNM Work Phone: [facility] 08-29-2024 11:01-0500 Systolic blood pressure 98 mm[Hg] Sara Condon APRN.CNM Work Phone: [facility] 08-27-2024 09:33-0500 Body mass index (BMI) [Ratio] 23.77 kg/m2 Wu Herrera MD Work Phone: [facility] 08-27-2024 09:33-0500 Body temperature 97.9 [degF] Wu Herrera MD Work Phone: [facility] 08-27-2024 09:33-0500 Body weight 58.97 kg Wu Herrera MD Work Phone: [facility] 08-27-2024 09:33-0500 Diastolic blood pressure 60 mm[Hg] Wu Herrera MD Work Phone: [facility] 08-27-2024 09:33-0500 Heart rate 92 /min Wu Herrera MD Work Phone: [facility] 08-27-2024 09:33-0500 Respiratory rate 16 /min Wu Herrera MD Work Phone: [facility] 08-27-2024 09:33-0500 Systolic blood pressure 102 mm[Hg] Wu Herrera MD Work Phone: [facility] 08-22-2024 18:41-0500 Body mass index (BMI) [Ratio] 23.86 kg/m2 Clement Sheehan MD Work Phone: [facility] 08-22-2024 18:41-0500 Body temperature 98.01 [degF] Clement Sheehan MD Work Phone: [facility] 08-22-2024 18:41-0500 Body weight 59.2 kg Clement Sheehan MD Work Phone: [facility] 08-22-2024 18:41-0500 Diastolic blood pressure 60 mm[Hg] Clement Sheehan MD Work Phone: [facility] 08-22-2024 18:41-0500 Heart rate 84 /min Clement Sheehan MD Work Phone: [facility] 08-22-2024 18:41-0500 Systolic blood pressure 108 mm[Hg] Clement Sheehan MD Work Phone: [facility] 08-15-2024 13:30-0500 Diastolic blood pressure 66 mm[Hg] Pari [place] PROVIDER NETWORK ANALYST.OIL WELL CABLE TOOL OPERATOR Work Phone: [facility] 08-15-2024 13:30-0500 Systolic blood pressure 104 mm[Hg] Pari Yara PROVIDER NETWORK ANALYST.OIL WELL CABLE TOOL OPERATOR Work Phone: [facility] 07-19-2024 09:29-0500 Body mass index (BMI) [Ratio] 24.69 kg/m2 Wu Herrera MD Work Phone: [facility] 07-19-2024 09:29-0500 Body weight 61.24 kg Wu Herrera MD Work Phone: [facility] 07-19-2024 09:29-0500 Diastolic blood pressure 64 mm[Hg] Wu Herrera MD Work Phone: [facility] 07-19-2024 09:29-0500 Heart rate 88 /min Wu Herrera MD Work Phone: [facility] 07-19-2024 09:29-0500 Respiratory rate 16 /min Wu Herrera MD Work Phone: [facility] 07-19-2024 09:29-0500 Systolic blood pressure 108 mm[Hg] Wu Herrera MD Work Phone: [facility] 07-11-2024 09:46-0500 Body mass index (BMI) [Ratio] 24.55 kg/m2 John Powell MD Work Phone: [facility] 07-11-2024 09:46-0500 Body temperature 97.59 [degF] John Powell MD Work Phone: [facility] 07-11-2024 09:46-0500 Body weight 60.9 kg John Powell MD Work Phone: [facility] 07-11-2024 09:46-0500 Diastolic blood pressure 62 mm[Hg] John Powell MD Work Phone: [facility] 07-11-2024 09:46-0500 Heart rate 82 /min John Powell MD Work Phone: [facility] 07-11-2024 09:46-0500 Respiratory rate 18 /min John Powell MD Work Phone: [facility] 07-11-2024 09:46-0500 SaO2% (BldA) [Mass fraction] 98 % John Powell MD Work Phone: [facility] 07-11-2024 09:46-0500 Systolic blood pressure 102 mm[Hg] John Powell MD Work Phone: [facility] 06-30-2024 08:02-0500 Body height 157.5 cm Dee Roca PA-C Work Phone: [facility] 06-30-2024 08:02-0500 Body mass index (BMI) [Ratio] 24.14 kg/m2 Dee Roca PA-C Work Phone: [facility] 06-30-2024 08:02-0500 Body temperature 97.9 [degF] Dee Roca PA-C Work Phone: [facility] 06-30-2024 08:02-0500 Body weight 59.88 kg Dee Roca PA-C Work Phone: [facility] 06-30-2024 08:02-0500 Diastolic blood pressure 70 mm[Hg] Dee Roca PA-C Work Phone: [facility] 06-30-2024 08:02-0500 Heart rate 88 /min Dee Roca PA-C Work Phone: [facility] 06-30-2024 08:02-0500 Respiratory rate 16 /min Dee Roca PA-C Work Phone: [facility] 06-30-2024 08:02-0500 SaO2% (BldA) [Mass fraction] 98 % Dee Roca PA-C Work Phone: [facility] 06-30-2024 08:02-0500 Systolic blood pressure 102 mm[Hg] Dee Roca PA-C Work Phone: [facility] 06-29-2024 13:01-0500 Body mass index (BMI) [Ratio] 24.64 kg/m2 Carmen Siegel MD Work Phone: [facility] 06-29-2024 13:01-0500 Body weight 61.1 kg Carmen Siegel MD Work Phone: [facility] 06-29-2024 13:01-0500 Diastolic blood pressure 68 mm[Hg] Carmen Siegel MD Work Phone: [facility] 06-29-2024 13:01-0500 Heart rate 85 /min Carmen Siegel MD Work Phone: [facility] 06-29-2024 13:01-0500 Systolic blood pressure 106 mm[Hg] Carmen Siegel MD Work Phone: [facility] 06-22-2024 15:55-0500 Body mass index (BMI) [Ratio] 24.92 kg/m2 John Powell MD Work Phone: [facility] 06-22-2024 15:55-0500 Body temperature 98.1 [degF] John Powell MD Work Phone: [facility] 06-22-2024 15:55-0500 Body weight 61.8 kg John Powell MD Work Phone: [facility] 06-22-2024 15:55-0500 Diastolic blood pressure 72 mm[Hg] John Powell MD Work Phone: [facility] 06-22-2024 15:55-0500 Heart rate 102 /min John Powell MD Work Phone: [facility] 06-22-2024 15:55-0500 Respiratory rate 16 /min John Powell MD Work Phone: [facility] 06-22-2024 15:55-0500 SaO2% (BldA) [Mass fraction] 97 % John Powell MD Work Phone: [facility] 06-22-2024 15:55-0500 Systolic blood pressure 110 mm[Hg] John Powell MD Work Phone: [facility] 06-16-2024 14:34-0500 Body height 157.5 cm Shruthi Haney MD Work Phone: [facility] 06-16-2024 14:34-0500 Body mass index (BMI) [Ratio] 25 kg/m2 Shruthi Haney MD Work Phone: [facility] 06-16-2024 14:34-0500 Body weight 62 kg Shruthi Haney MD Work Phone: [facility] 06-16-2024 14:34-0500 Diastolic blood pressure 74 mm[Hg] Shruthi Haney MD Work Phone: [facility] 06-16-2024 14:34-0500 Heart rate 73 /min Shruthi Haney MD Work Phone: [facility] 06-16-2024 14:34-0500 SaO2% (BldA) [Mass fraction] 100 % Shruthi Haney MD Work Phone: [facility] 06-16-2024 14:34-0500 Systolic blood pressure 115 mm[Hg] Shruthi Haney MD Work Phone: [facility] 06-15-2024 13:42-0500 Body mass index (BMI) [Ratio] 24.87 kg/m2 Smiley Tripathi MD Work Phone: [facility] 06-15-2024 13:42-0500 Body weight 61.69 kg Smiley Tripathi MD Work Phone: [facility] 06-15-2024 13:42-0500 Diastolic blood pressure 60 mm[Hg] Smiley Tripathi MD Work Phone: [facility] 06-15-2024 13:42-0500 Systolic blood pressure 102 mm[Hg] Smiley Tripathi MD Work Phone: [facility] 05-28-2024 10:58-0500 Body mass index (BMI) [Ratio] 24.52 kg/m2 Wu Herrera MD Work Phone: [facility] 05-28-2024 10:58-0500 Body weight 60.8 kg Wu Herrera MD Work Phone: [facility] 05-28-2024 10:58-0500 Diastolic blood pressure 68 mm[Hg] Wu Herrera MD Work Phone: [facility] 05-28-2024 10:58-0500 Heart rate 88 /min Wu Herrera MD Work Phone: [facility] 05-28-2024 10:58-0500 Respiratory rate 18 /min Wu Herrera MD Work Phone: [facility] 05-28-2024 10:58-0500 SaO2% (BldA) [Mass fraction] 98 % Wu Herrera MD Work Phone: [facility] 05-28-2024 10:58-0500 Systolic blood pressure 100 mm[Hg] Wu Herrera MD Work Phone: [facility] 05-25-2024 06:30-0500 Diastolic blood pressure 61 mm[Hg] Chapo Wright DO Work Phone: [facility] 05-25-2024 06:30-0500 Heart rate 71 /min Chapo Wright DO Work Phone: [facility] 05-25-2024 06:30-0500 Respiratory rate 16 /min Chapo Wright DO Work Phone: [facility] 05-25-2024 06:30-0500 SaO2% (BldA) [Mass fraction] 97 % Chapo Wright DO Work Phone: [facility] 05-25-2024 06:30-0500 Systolic blood pressure 99 mm[Hg] Chapo Wright DO Work Phone: [facility] 05-25-2024 01:34-0500 Body height 157.5 cm Chapo Wright DO Work Phone: [facility] 05-25-2024 01:34-0500 Body mass index (BMI) [Ratio] 23.78 kg/m2 Chapo Wright DO Work Phone: [facility] 05-25-2024 01:34-0500 Body temperature 97.9 [degF] Chapo Wright DO Work Phone: [facility] 05-25-2024 01:34-0500 Body weight 58.97 kg Chapo Wright DO Work Phone: [facility] 04-14-2024 11:13-0400 Diastolic blood pressure 61 mm[Hg] Wu Hogan MD Work Phone: [facility] 04-14-2024 11:13-0400 Heart rate 76 /min Wu Hogan MD Work Phone: [facility] 04-14-2024 11:13-0400 Respiratory rate 16 /min Wu Hogan MD Work Phone: [facility] 04-14-2024 11:13-0400 SaO2% (BldA) [Mass fraction] 100 % Wu Hogan MD Work Phone: [facility] 04-14-2024 11:13-0400 Systolic blood pressure 104 mm[Hg] Wu Hogan MD Work Phone: [facility] 04-14-2024 09:35-0400 Body mass index (BMI) [Ratio] 24.6 kg/m2 Wu Hogan MD Work Phone: [facility] 04-14-2024 09:35-0400 Body temperature 98.1 [degF] Wu Hogan MD Work Phone: [facility] 04-14-2024 09:35-0400 Body weight 61 kg Wu Hogan MD Work Phone: [facility] 04-04-2024 18:27-0400 Body mass index (BMI) [Ratio] 24.6 kg/m2 Siri Espitia APRN.OIL WELL CABLE TOOL OPERATOR Work Phone: [facility] 04-04-2024 18:27-0400 Body temperature 99 [degF] Siri Espitia APRN.OIL WELL CABLE TOOL OPERATOR Work Phone: [facility] 04-04-2024 18:27-0400 Body weight 61 kg Siri Espitia APRN.OIL WELL CABLE TOOL OPERATOR Work Phone: [facility] 04-04-2024 18:27-0400 Diastolic blood pressure 78 mm[Hg] Siri Espitia APRN.OIL WELL CABLE TOOL OPERATOR Work Phone: [facility] 04-04-2024 18:27-0400 Heart rate 93 /min Siri Espitia APRN.OIL WELL CABLE TOOL OPERATOR Work Phone: [facility] 04-04-2024 18:27-0400 Respiratory rate 18 /min Siri Espitia APRN.OIL WELL CABLE TOOL OPERATOR Work Phone: [facility] 04-04-2024 18:27-0400 SaO2% (BldA) [Mass fraction] 97 % Siri Espitia APRN.OIL WELL CABLE TOOL OPERATOR Work Phone: [facility] 04-04-2024 18:27-0400 Systolic blood pressure 110 mm[Hg] Siri Espitia APRN.OIL WELL CABLE TOOL OPERATOR Work Phone: [facility] 03-31-2024 15:58-0400 Body mass index (BMI) [Ratio] 24.69 kg/m2 Lesli Solano APRN.OIL WELL CABLE TOOL OPERATOR Work Phone: [facility] 03-31-2024 15:58-0400 Body weight 61.24 kg Lesli Solano APRN.OIL WELL CABLE TOOL OPERATOR Work Phone: [facility] 03-31-2024 15:58-0400 Diastolic blood pressure 58 mm[Hg] Lesli Solano APRN.OIL WELL CABLE TOOL OPERATOR Work Phone: [facility] 03-31-2024 15:58-0400 Heart rate 78 /min Lesli Solano PROVIDER NETWORK ANALYST.OIL WELL CABLE TOOL OPERATOR Work Phone: [facility] 03-31-2024 15:58-0400 Respiratory rate 14 /min Lesli Solano PROVIDER NETWORK ANALYST.OIL WELL CABLE TOOL OPERATOR Work Phone: [facility] [facility] 03-31-2024 15:58-0400 SaO2% (BldA) [Mass fraction] 97 % Lesli Solano PROVIDER NETWORK ANALYST.OIL WELL CABLE TOOL OPERATOR Work Phone: [facility] 03-31-2024 15:58-0400 Systolic blood pressure 100 mm[Hg] Lesli Solano PROVIDER NETWORK ANALYST.OIL WELL CABLE TOOL OPERATOR Work Phone: [facility] 03-17-2024 07:56-0400 Body height 157.5 cm Ofelia Kalka PA-C Work Phone: [facility] 03-17-2024 07:56-0400 Body mass index (BMI) [Ratio] 24.69 kg/m2 Ofelia Kalka PA-C Work Phone: [facility] 03-17-2024 07:56-0400 Body weight 61.24 kg Ofelia Kalka PA-C Work Phone: [facility] 03-17-2024 07:56-0400 Diastolic blood pressure 64 mm[Hg] Ofelia Kalka PA-C Work Phone: [facility] 03-17-2024 07:56-0400 Heart rate 74 /min Ofelia Kalka PA-C Work Phone: [facility] 03-17-2024 07:56-0400 Systolic blood pressure 102 mm[Hg] Ofelia Kalka PA-C Work Phone: [facility] 02-29-2024 14:43-0400 Body mass index (BMI) [Ratio] 25.42 kg/m2 Wu Herrera MD Work Phone: [facility] 02-29-2024 14:43-0400 Body temperature 98.71 [degF] Wu Herrera MD Work Phone: [facility] 02-29-2024 14:43-0400 Body weight 63.05 kg Wu Herrera MD Work Phone: [facility] 02-29-2024 14:43-0400 Diastolic blood pressure 68 mm[Hg] Wu Herrera MD Work Phone: [facility] 02-29-2024 14:43-0400 Heart rate 88 /min Wu Herrera MD Work Phone: [facility] 02-29-2024 14:43-0400 Respiratory rate 18 /min Wu Herrera MD Work Phone: [facility] 02-29-2024 14:43-0400 Systolic blood pressure 104 mm[Hg] Wu Herrera MD Work Phone: [facility] 02-15-2024 09:35-0400 Body mass index (BMI) [Ratio] 25.79 kg/m2 Lesli Solano PROVIDER NETWORK ANALYST.OIL WELL CABLE TOOL OPERATOR Work Phone: [facility] 02-15-2024 09:35-0400 Body weight 63.96 kg Lesli Hajanis PROVIDER NETWORK ANALYST.OIL WELL CABLE TOOL OPERATOR Work Phone: [facility] 02-15-2024 09:35-0400 Diastolic blood pressure 50 mm[Hg] Lesli Haury PROVIDER NETWORK ANALYST.OIL WELL CABLE TOOL OPERATOR Work Phone: [facility] 02-15-2024 09:35-0400 Systolic blood pressure 98 mm[Hg] Lesli Haury PROVIDER NETWORK ANALYST.OIL WELL CABLE TOOL OPERATOR Work Phone: [facility] 01-19-2024 14:19-0400 Diastolic blood pressure 70 mm[Hg] Pari Yara PROVIDER NETWORK ANALYST.OIL WELL CABLE TOOL OPERATOR Work Phone: [facility] 01-19-2024 14:19-0400 Heart rate 102 /min Pari Yara PROVIDER NETWORK ANALYST.OIL WELL CABLE TOOL OPERATOR Work Phone: [facility] 01-19-2024 14:19-0400 Respiratory rate 20 /min Pari Yara PROVIDER NETWORK ANALYST.OIL WELL CABLE TOOL OPERATOR Work Phone: [facility] 01-19-2024 14:19-0400 SaO2% (BldA) [Mass fraction] 97 % Pari Yara PROVIDER NETWORK ANALYST.OIL WELL CABLE TOOL OPERATOR Work Phone: [facility] 01-19-2024 14:19-0400 Systolic blood pressure 110 mm[Hg] Pari Yara PROVIDER NETWORK ANALYST.OIL WELL CABLE TOOL OPERATOR Work Phone: [facility] 01-19-2024 12:58-0400 Body mass index (BMI) [Ratio] 25.75 kg/m2 Pari [place] PROVIDER NETWORK ANALYST.OIL WELL CABLE TOOL OPERATOR Work Phone: [facility] 01-19-2024 12:58-0400 Body weight 63.87 kg Pari [place] PROVIDER NETWORK ANALYST.OIL WELL CABLE TOOL OPERATOR Work Phone: [facility] 01-18-2024 13:04-0400 Body mass index (BMI) [Ratio] 25.61 kg/m2 Wu Herrera MD Work Phone: [facility] 01-18-2024 13:04-0400 Body temperature 98.91 [degF] Wu Herrera MD Work Phone: [facility] 01-18-2024 13:04-0400 Body weight 63.5 kg Wu Herrera MD Work Phone: [facility] 01-18-2024 13:04-0400 Diastolic blood pressure 64 mm[Hg] Wu Herrera MD Work Phone: [facility] 01-18-2024 13:04-0400 Heart rate 86 /min Wu Herrera MD Work Phone: [facility] 01-18-2024 13:04-0400 Respiratory rate 16 /min Wu Herrera MD Work Phone: [facility] 01-18-2024 13:04-0400 Systolic blood pressure 108 mm[Hg] Wu Herrera MD Work Phone: [facility] 01-08-2024 10:37-0400 Body mass index (BMI) [Ratio] 26.81 kg/m2 Wu Salcedo PROVIDER NETWORK ANALYST.OIL WELL CABLE TOOL OPERATOR Work Phone: [facility] 01-08-2024 10:37-0400 Body temperature 97.59 [degF] Wu [place] PROVIDER NETWORK ANALYST.OIL WELL CABLE TOOL OPERATOR Work Phone: [facility] 01-08-2024 10:37-0400 Body weight 66.5 kg [facility] PROVIDER NETWORK ANALYST.OIL WELL CABLE TOOL OPERATOR Work Phone: [facility] 01-08-2024 10:37-0400 Diastolic blood pressure 62 mm[Hg] [facility] PROVIDER NETWORK ANALYST.OIL WELL CABLE TOOL OPERATOR Work Phone: [facility] 01-08-2024 10:37-0400 Heart rate 97 /min [facility] PROVIDER NETWORK ANALYST.OIL WELL CABLE TOOL OPERATOR Work Phone: [facility] 01-08-2024 10:37-0400 Respiratory rate 18 /min [facility] PROVIDER NETWORK ANALYST.OIL WELL CABLE TOOL OPERATOR Work Phone: [facility] 01-08-2024 10:37-0400 SaO2% (BldA) [Mass fraction] 98 % Wu [facility] PROVIDER NETWORK ANALYST.OIL WELL CABLE TOOL OPERATOR Work Phone: [facility] 01-08-2024 10:37-0400 Systolic blood pressure 124 mm[Hg] [facility] PROVIDER NETWORK ANALYST.OIL WELL CABLE TOOL OPERATOR Work Phone: [facility] 12-22-2023 13:49-0400 Body mass index (BMI) [Ratio] 28.35 kg/m2 Pari [place] PROVIDER NETWORK ANALYST.OIL WELL CABLE TOOL OPERATOR Work Phone: [facility] 12-22-2023 13:49-0400 Body weight 70.31 kg Pari Yara PROVIDER NETWORK ANALYST.OIL WELL CABLE TOOL OPERATOR Work Phone: [facility] 12-22-2023 13:49-0400 Diastolic blood pressure 70 mm[Hg] Pari [place] PROVIDER NETWORK ANALYST.OIL WELL CABLE TOOL OPERATOR Work Phone: [facility] 12-22-2023 13:49-0400 Systolic blood pressure 120 mm[Hg] Pari Yara PROVIDER NETWORK ANALYST.OIL WELL CABLE TOOL OPERATOR Work Phone: [facility] 12-14-2023 10:32-0400 Body mass index (BMI) [Ratio] 31.1 kg/m2 Satya Hanks PROVIDER NETWORK ANALYST.OIL WELL CABLE TOOL OPERATOR Work Phone: [facility] 12-14-2023 10:32-0400 Body weight 74.66 kg Satya Demario PROVIDER NETWORK ANALYST.OIL WELL CABLE TOOL OPERATOR Work Phone: [facility] 12-14-2023 10:32-0400 Diastolic blood pressure 82 mm[Hg] Satya Demario PROVIDER NETWORK ANALYST.OIL WELL CABLE TOOL OPERATOR Work Phone: [facility] 12-14-2023 10:32-0400 Heart rate 70 /min Satya Demario PROVIDER NETWORK ANALYST.OIL WELL CABLE TOOL OPERATOR Work Phone: [facility] 12-14-2023 10:32-0400 Respiratory rate 16 /min Satya Demario PROVIDER NETWORK ANALYST.OIL WELL CABLE TOOL OPERATOR Work Phone: [facility] 12-14-2023 10:32-0400 SaO2% (BldA) [Mass fraction] 98 % Satya Demario PROVIDER NETWORK ANALYST.OIL WELL CABLE TOOL OPERATOR Work Phone: [facility] 12-14-2023 10:32-0400 Systolic blood pressure 118 mm[Hg] Satya Demario PROVIDER NETWORK ANALYST.OIL WELL CABLE TOOL OPERATOR Work Phone: [facility] 12-02-2023 14:30-0400 Body mass index (BMI) [Ratio] 33.86 kg/m2 Daisy Hilliard PROVIDER NETWORK ANALYST.CNM Work Phone: [facility] 12-02-2023 14:30-0400 Body weight 81.28 kg Daisy Hilliard PROVIDER NETWORK ANALYST.CNM Work Phone: [facility] 12-02-2023 14:30-0400 Diastolic blood pressure 80 mm[Hg] Daisy Hilliard PROVIDER NETWORK ANALYST.CNM Work Phone: [facility] 12-02-2023 14:30-0400 Systolic blood pressure 120 mm[Hg] Daisy Hilliard PROVIDER NETWORK ANALYST.CNM Work Phone: [facility] 11-27-2023 11:37-0400 Body mass index (BMI) [Ratio] 33.36 kg/m2 Shruthi Estrada MD Work Phone: [facility] 11-27-2023 11:37-0400 Body weight 81.19 kg Shruthi Estrada MD Work Phone: [facility] 11-27-2023 11:37-0400 Diastolic blood pressure 76 mm[Hg] Shruthi Estrada MD Work Phone: [facility] 11-27-2023 11:37-0400 Systolic blood pressure 114 mm[Hg] Shruthi Estrada MD Work Phone: [facility] 11-20-2023 10:36-0400 Body mass index (BMI) [Ratio] 33.48 kg/m2 Shruthi Estrada MD Work Phone: [facility] 11-20-2023 10:36-0400 Body weight 81.47 kg Srhuthi Estrada MD Work Phone: [facility] 11-20-2023 10:36-0400 Diastolic blood pressure 66 mm[Hg] Shruthi Estrada MD Work Phone: [facility] 11-20-2023 10:36-0400 Systolic blood pressure 98 mm[Hg] Shruthi Estrada MD Work Phone: [facility] 11-12-2023 09:26-0400 Body mass index (BMI) [Ratio] 32.99 kg/m2 Becca Castellon MD Work Phone: [facility] 11-12-2023 09:26-0400 Body weight 80.29 kg Becca Castellon MD Work Phone: [facility] 11-12-2023 09:26-0400 Diastolic blood pressure 70 mm[Hg] Becca Castellon MD Work Phone: [facility] 11-12-2023 09:26-0400 Systolic blood pressure 110 mm[Hg] Becca Castellon MD Work Phone: [facility] 11-02-2023 11:01-0400 Body mass index (BMI) [Ratio] 33.07 kg/m2 Shruthi Estrada MD Work Phone: [facility] 11-02-2023 11:01-0400 Body weight 80.47 kg Shruthi Estrada MD Work Phone: [facility] 11-02-2023 11:01-0400 Diastolic blood pressure 70 mm[Hg] Shruthi Estrada MD Work Phone: [facility] 11-02-2023 11:01-0400 Systolic blood pressure 118 mm[Hg] Shruthi Estrada MD Work Phone: [facility] 10-19-2023 11:17-0400 Body weight 78.2 kg Lesli Solano PROVIDER NETWORK ANALYST.OIL WELL CABLE TOOL OPERATOR Work Phone: [facility] 10-19-2023 11:17-0400 Diastolic blood pressure 58 mm[Hg] Lesli Haury PROVIDER NETWORK ANALYST.OIL WELL CABLE TOOL OPERATOR Work Phone: [facility] 10-19-2023 11:17-0400 Systolic blood pressure 110 mm[Hg] Lesli Haury PROVIDER NETWORK ANALYST.OIL WELL CABLE TOOL OPERATOR Work Phone: [facility] 10-15-2023 15:06-0400 Body temperature 97.3 [degF] Krislyn Aberegg PA Work Phone: [facility] 10-15-2023 15:06-0400 Body weight 79 kg Krislyn Aberegg PA Work Phone: [facility] 10-15-2023 15:06-0400 Diastolic blood pressure 70 mm[Hg] Krislyn Aberegg PA Work Phone: [facility] 10-15-2023 15:06-0400 Heart rate 93 /min Krislyn Aberegg PA Work Phone: [facility] 10-15-2023 15:06-0400 Respiratory rate 18 /min Krislyn Aberegg PA Work Phone: [facility] 10-15-2023 15:06-0400 SaO2% (BldA) [Mass fraction] 100 % Krislyn Aberegg PA Work Phone: [facility] 10-15-2023 15:06-0400 Systolic blood pressure 106 mm[Hg] Krislyn Aberegg PA Work Phone: [facility] 09-25-2023 11:40-0400 Body temperature 97.81 [degF] Dee Roca PA-C Work Phone: [facility] 09-25-2023 11:40-0400 Body weight 78.93 kg Dee Roca PA-C Work Phone: [facility] 09-25-2023 11:40-0400 Diastolic blood pressure 70 mm[Hg] Dee Roca PA-C Work Phone: [facility] 09-25-2023 11:40-0400 Heart rate 93 /min Dee Roca PA-C Work Phone: [facility] 09-25-2023 11:40-0400 Respiratory rate 16 /min Dee Roca PA-C Work Phone: [facility] 09-25-2023 11:40-0400 Systolic blood pressure 102 mm[Hg] Dee Roca PA-C Work Phone: [facility] 09-25-2023 08:36-0400 Body weight 79.11 kg Sara Plotts PROVIDER NETWORK ANALYST.CNM Work Phone: [facility] 09-25-2023 08:36-0400 Diastolic blood pressure 70 mm[Hg] Sara Plotts PROVIDER NETWORK ANALYST.CNM Work Phone: [facility] 09-25-2023 08:36-0400 Systolic blood pressure 114 mm[Hg] Sara Plotts PROVIDER NETWORK ANALYST.CNM Work Phone: [facility] 09-11-2023 11:40-0500 Body temperature 97.9 [degF] Dee Roca PA-C Work Phone: [facility] 09-11-2023 11:40-0500 Body weight 76.66 kg Dee Roca PA-C Work Phone: [facility] 09-11-2023 11:40-0500 Diastolic blood pressure 70 mm[Hg] Dee Roca PA-C Work Phone: [facility] 09-11-2023 11:40-0500 Heart rate 102 /min Dee Roca PA-C Work Phone: [facility] 09-11-2023 11:40-0500 Respiratory rate 18 /min Dee Roca PA-C Work Phone: [facility] 09-11-2023 11:40-0500 Systolic blood pressure 110 mm[Hg] Dee Roca PA-C Work Phone: [facility] 09-10-2023 10:26-0500 Body weight 77.11 kg Jose Cruz Espitia MD Work Phone: [facility] 09-10-2023 10:26-0500 Diastolic blood pressure 68 mm[Hg] Joes Cruz Espitia MD Work Phone: [facility] 09-10-2023 10:26-0500 Systolic blood pressure 116 mm[Hg] Jose Cruz Espitia MD Work Phone: [facility] 08-28-2023 10:45-0500 Body weight 75.39 kg Becca Castellon MD Work Phone: [facility] 08-28-2023 10:45-0500 Diastolic blood pressure 60 mm[Hg] Becca Castellon MD Work Phone: [facility] 08-28-2023 10:45-0500 Systolic blood pressure 102 mm[Hg] Becca Castellon MD Work Phone: [facility] 08-17-2023 15:13-0500 Body weight 75.3 kg Daisy Hilliard PROVIDER NETWORK ANALYST.CNM Work Phone: [facility] 08-17-2023 15:13-0500 Diastolic blood pressure 60 mm[Hg] Daisy Hilliard PROVIDER NETWORK ANALYST.CNM Work Phone: [facility] 08-17-2023 15:13-0500 Systolic blood pressure 112 mm[Hg] Daisy Hilliard PROVIDER NETWORK ANALYST.CNM Work Phone: [facility] 06-12-2023 11:07-0500 Body weight 69.85 kg Daisy Hilliard PROVIDER NETWORK ANALYST.CNM Work Phone: [facility] 06-12-2023 11:07-0500 Diastolic blood pressure 58 mm[Hg] Daisy Hilliard PROVIDER NETWORK ANALYST.CNM Work Phone: [facility] 06-12-2023 11:07-0500 Systolic blood pressure 116 mm[Hg] Daisy Hilliard PROVIDER NETWORK ANALYST.CNM Work Phone: [facility] 06-01-2023 10:47-0500 Body height 156 cm Cora Haagen PROVIDER NETWORK ANALYST.OIL WELL CABLE TOOL OPERATOR Work Phone: [facility] 06-01-2023 10:47-0500 Body weight 69.85 kg Cora Haagen PROVIDER NETWORK ANALYST.OIL WELL CABLE TOOL OPERATOR Work Phone: [facility] 06-01-2023 10:47-0500 Diastolic blood pressure 76 mm[Hg] Cora Haagen PROVIDER NETWORK ANALYST.OIL WELL CABLE TOOL OPERATOR Work Phone: [facility] 06-01-2023 10:47-0500 Heart rate 82 /min Cora Haagen PROVIDER NETWORK ANALYST.OIL WELL CABLE TOOL OPERATOR Work Phone: [facility] 06-01-2023 10:47-0500 Respiratory rate 16 /min Cora Haagen PROVIDER NETWORK ANALYST.OIL WELL CABLE TOOL OPERATOR Work Phone: [facility] 06-01-2023 10:47-0500 SaO2% (BldA) [Mass fraction] 98 % Cora Haagen PROVIDER NETWORK ANALYST.OIL WELL CABLE TOOL OPERATOR Work Phone: [facility] 06-01-2023 10:47-0500 Systolic blood pressure 110 mm[Hg] Cora Haagen PROVIDER NETWORK ANALYST.OIL WELL CABLE TOOL OPERATOR Work Phone: [facility] 05-19-2023 10:04-0500 Body height 156.5 cm Jose Cruz Espitia MD Work Phone: [facility] 05-19-2023 10:04-0500 Body weight 71.12 kg Jose Cruz Espitia MD Work Phone: [facility] 05-19-2023 10:04-0500 Diastolic blood pressure 58 mm[Hg] Jose Cruz Espitia MD Work Phone: [facility] 05-19-2023 10:04-0500 Systolic blood pressure 92 mm[Hg] Jose Cruz Espitia MD Work Phone: [facility] 05-01-2023 12:05-0400 Body temperature 98.4 [degF] Satya Hanks PROVIDER NETWORK ANALYST.OIL WELL CABLE TOOL OPERATOR Work Phone: [facility] 05-01-2023 12:05-0400 Body weight 70.67 kg Satya Hanks PROVIDER NETWORK ANALYST.OIL WELL CABLE TOOL OPERATOR Work Phone: [facility] 05-01-2023 12:05-0400 Diastolic blood pressure 72 mm[Hg] Satya Hanks PROVIDER NETWORK ANALYST.OIL WELL CABLE TOOL OPERATOR Work Phone: [facility] 05-01-2023 12:05-0400 Heart rate 96 /min Satya Hanks PROVIDER NETWORK ANALYST.OIL WELL CABLE TOOL OPERATOR Work Phone: [facility] 05-01-2023 12:05-0400 Respiratory rate 16 /min Satya Hanks PROVIDER NETWORK ANALYST.OIL WELL CABLE TOOL OPERATOR Work Phone: [facility] 05-01-2023 12:05-0400 SaO2% (BldA) [Mass fraction] 98 % Satya Hanks PROVIDER NETWORK ANALYST.OIL WELL CABLE TOOL OPERATOR Work Phone: [facility] 05-01-2023 12:05-0400 Systolic blood pressure 114 mm[Hg] Satya Hanks PROVIDER NETWORK ANALYST.OIL WELL CABLE TOOL OPERATOR Work Phone: [facility] 04-18-2023 14:16-0400 Body temperature 97.9 [degF] Siri Espitia APRN.OIL WELL CABLE TOOL OPERATOR Work Phone: [facility] 04-18-2023 14:16-0400 Body weight 70.22 kg Siri Espitia APRN.OIL WELL CABLE TOOL OPERATOR Work Phone: [facility] 04-18-2023 14:16-0400 Diastolic blood pressure 64 mm[Hg] Siri Espitia APRN.OIL WELL CABLE TOOL OPERATOR Work Phone: [facility] 04-18-2023 14:16-0400 Heart rate 92 /min Siri Espitia APRN.OIL WELL CABLE TOOL OPERATOR Work Phone: [facility] 04-18-2023 14:16-0400 Respiratory rate 16 /min Siri Nupur GUYN.OIL WELL CABLE TOOL OPERATOR Work Phone: [facility] 04-18-2023 14:16-0400 SaO2% (BldA) [Mass fraction] 99 % Siri Espitia APRN.OIL WELL CABLE TOOL OPERATOR Work Phone: [facility] 04-18-2023 14:16-0400 Systolic blood pressure 102 mm[Hg] Siri Espitia APRN.OIL WELL CABLE TOOL OPERATOR Work Phone: [facility] 04-12-2023 14:31-0400 Body temperature 98.49 [degF] Siri Espitia APRN.OIL WELL CABLE TOOL OPERATOR Work Phone: [facility] 04-12-2023 14:31-0400 Body weight 70.76 kg Siri Espitia PROVIDER NETWORK ANALYST.OIL WELL CABLE TOOL OPERATOR Work Phone: [facility] 04-12-2023 14:31-0400 Diastolic blood pressure 78 mm[Hg] Siri Espitia APRN.OIL WELL CABLE TOOL OPERATOR Work Phone: [facility] 04-12-2023 14:31-0400 Heart rate 113 /min Siri Espitia PROVIDER NETWORK ANALYST.OIL WELL CABLE TOOL OPERATOR Work Phone: [facility] 04-12-2023 14:31-0400 Respiratory rate 16 /min Siri Espitia PROVIDER NETWORK ANALYST.OIL WELL CABLE TOOL OPERATOR Work Phone: [facility] 04-12-2023 14:31-0400 SaO2% (BldA) [Mass fraction] 99 % Siri Espitia APRN.OIL WELL CABLE TOOL OPERATOR Work Phone: [facility] 04-12-2023 14:31-0400 Systolic blood pressure 118 mm[Hg] Siri Espitia APRN.OIL WELL CABLE TOOL OPERATOR Work Phone: [facility] 03-23-2023 07:33-0400 Body temperature 97.7 [degF] Dee Roca PA-C Work Phone: [facility] 03-23-2023 07:33-0400 Body weight 70.76 kg Dee Roca PA-C Work Phone: [facility] 03-23-2023 07:33-0400 Diastolic blood pressure 60 mm[Hg] Dee Roca PA-C Work Phone: [facility] 03-23-2023 07:33-0400 Heart rate 88 /min Dee Roca PA-C Work Phone: [facility] 03-23-2023 07:33-0400 Respiratory rate 16 /min Dee Roca PA-C Work Phone: [facility] 03-23-2023 07:33-0400 Systolic blood pressure 102 mm[Hg] Dee Roca PA-C Work Phone: [facility] 03-19-2023 08:25-0400 Body temperature 97.5 [degF] Darrell De Paz PROVIDER NETWORK ANALYST.OIL WELL CABLE TOOL OPERATOR Work Phone: [facility] 03-19-2023 08:25-0400 Body weight 70.85 kg Darrell De Paz PROVIDER NETWORK ANALYST.OIL WELL CABLE TOOL OPERATOR Work Phone: [facility] 03-19-2023 08:25-0400 Diastolic blood pressure 62 mm[Hg] Darrell De Paz PROVIDER NETWORK ANALYST.OIL WELL CABLE TOOL OPERATOR Work Phone: [facility] 03-19-2023 08:25-0400 Heart rate 76 /min Darrell De Paz PROVIDER NETWORK ANALYST.OIL WELL CABLE TOOL OPERATOR Work Phone: [facility] 03-19-2023 08:25-0400 Respiratory rate 21 /min Darrell De Paz PROVIDER NETWORK ANALYST.OIL WELL CABLE TOOL OPERATOR Work Phone: [facility] 03-19-2023 08:25-0400 SaO2% (BldA) [Mass fraction] 100 % Darrell De Paz PROVIDER NETWORK ANALYST.OIL WELL CABLE TOOL OPERATOR Work Phone: [facility] 03-19-2023 08:25-0400 Systolic blood pressure 102 mm[Hg] Darrell De Paz PROVIDER NETWORK ANALYST.OIL WELL CABLE TOOL OPERATOR Work Phone: [facility] 03-03-2023 09:04-0400 Diastolic blood pressure 70 mm[Hg] Pari Livingston PROVIDER NETWORK ANALYST.OIL WELL CABLE TOOL OPERATOR Work Phone: [facility] 08-22-2023 09:04-0400 Heart rate 86 /min Pari [place] PROVIDER NETWORK ANALYST.OIL WELL CABLE TOOL OPERATOR Work Phone: [facility] 03-03-2023 09:04-0400 SaO2% (BldA) [Mass fraction] 99 % Pari [place] PROVIDER NETWORK ANALYST.OIL WELL CABLE TOOL OPERATOR Work Phone: [facility] 03-03-2023 09:04-0400 Systolic blood pressure 110 mm[Hg] Pari Yara PROVIDER NETWORK ANALYST.OIL WELL CABLE TOOL OPERATOR Work Phone: [facility] 12-16-2022 15:28-0400 Body temperature 98.49 [degF] Wu Pendlebury PROVIDER NETWORK ANALYST.OIL WELL CABLE TOOL OPERATOR Work Phone: [facility] 12-16-2022 15:28-0400 Body weight 66.68 kg [facility] PROVIDER NETWORK ANALYST.OIL WELL CABLE TOOL OPERATOR Work Phone: [facility] 12-16-2022 15:28-0400 Diastolic blood pressure 62 mm[Hg] Wu Pendlebury PROVIDER NETWORK ANALYST.OIL WELL CABLE TOOL OPERATOR Work Phone: [facility] 12-16-2022 15:28-0400 Heart rate 114 /min Wu Pendlebury PROVIDER NETWORK ANALYST.OIL WELL CABLE TOOL OPERATOR Work Phone: [facility] 12-16-2022 15:28-0400 Respiratory rate 18 /min Wu Pendlebury PROVIDER NETWORK ANALYST.OIL WELL CABLE TOOL OPERATOR Work Phone: [facility] 12-16-2022 15:28-0400 SaO2% (BldA) [Mass fraction] 99 % Wu Pendlebury PROVIDER NETWORK ANALYST.OIL WELL CABLE TOOL OPERATOR Work Phone: [facility] 12-16-2022 15:28-0400 Systolic blood pressure 108 mm[Hg] Wu Pendlebury PROVIDER NETWORK ANALYST.OIL WELL CABLE TOOL OPERATOR Work Phone: [facility] 12-10-2022 13:03-0400 Body temperature 98.49 [degF] Lissette Jay PA-C Work Phone: [facility] 12-10-2022 13:03-0400 Body weight 65.86 kg Lissette Jay PA-C Work Phone: [facility] 12-10-2022 13:03-0400 Diastolic blood pressure 72 mm[Hg] Lissette Athy PA-C Work Phone: [facility] 12-10-2022 13:03-0400 Heart rate 87 /min Lissette Athy PA-C Work Phone: [facility] 12-10-2022 13:03-0400 Respiratory rate 18 /min Lissette Athy PA-C Work Phone: [facility] 12-10-2022 13:03-0400 SaO2% (BldA) [Mass fraction] 98 % Lissette Athy PA-C Work Phone: [facility] 12-10-2022 13:03-0400 Systolic blood pressure 108 mm[Hg] Lissette Athy PA-C Work Phone: [facility] 11-07-2022 08:14-0400 Body height 157.5 cm Gaetano Schneider MD Work Phone: [facility] 11-07-2022 08:14-0400 Body weight 64.41 kg Gaetano Schneider MD Work Phone: [facility] 11-07-2022 08:14-0400 Respiratory rate 16 /min Gaetano Schneider MD Work Phone: [facility] 10-13-2022 11:26-0400 Body temperature 98.29 [degF] Gloria Bogner PA-C Work Phone: [facility] 10-13-2022 11:26-0400 Body weight 64.86 kg Gloria Bogner PA-C Work Phone: [facility] 10-13-2022 11:26-0400 Diastolic blood pressure 70 mm[Hg] Gloria Bogner PA-C Work Phone: [facility] 10-13-2022 11:26-0400 Heart rate 80 /min Gloria Bogner PA-C Work Phone: [facility] 10-13-2022 11:26-0400 Respiratory rate 16 /min Gloria Bogner PA-C Work Phone: [facility] 10-13-2022 11:26-0400 SaO2% (BldA) [Mass fraction] 98 % Gloria Bogner PA-C Work Phone: [facility] 10-13-2022 11:26-0400 Systolic blood pressure 104 mm[Hg] Gloria Bogner PA-C Work Phone: [facility] 09-18-2022 14:58-0500 Body height 156 cm Pari [place] PROVIDER NETWORK ANALYST.OIL WELL CABLE TOOL OPERATOR Work Phone: [facility] 09-18-2022 14:58-0500 Body weight 66.22 kg Pari Yara PROVIDER NETWORK ANALYST.OIL WELL CABLE TOOL OPERATOR Work Phone: [facility] 09-18-2022 14:58-0500 Diastolic blood pressure 60 mm[Hg] Pari [place] PROVIDER NETWORK ANALYST.OIL WELL CABLE TOOL OPERATOR Work Phone: [facility] 09-18-2022 14:58-0500 Systolic blood pressure 104 mm[Hg] Pari [place] PROVIDER NETWORK ANALYST.OIL WELL CABLE TOOL OPERATOR Work Phone: [facility] 06-10-2022 11:05-0500 Body height 157.5 cm Pari Yara PROVIDER NETWORK ANALYST.OIL WELL CABLE TOOL OPERATOR Work Phone: [facility] 06-10-2022 11:05-0500 Body weight 69.85 kg Pari [place] PROVIDER NETWORK ANALYST.OIL WELL CABLE TOOL OPERATOR Work Phone: [facility] 06-10-2022 11:05-0500 Diastolic blood pressure 60 mm[Hg] Pari [place] PROVIDER NETWORK ANALYST.OIL WELL CABLE TOOL OPERATOR Work Phone: [facility] 06-10-2022 11:05-0500 Systolic blood pressure 90 mm[Hg] Pari Yara PROVIDER NETWORK ANALYST.OIL WELL CABLE TOOL OPERATOR Work Phone: [facility] 05-22-2022 17:32-0500 Body temperature 98.1 [degF] Kylee Hernandez PROVIDER NETWORK ANALYST.OIL WELL CABLE TOOL OPERATOR Work Phone: [facility] 05-22-2022 17:32-0500 Body weight 70.4 kg Kylee Praisler-Wood PROVIDER NETWORK ANALYST.OIL WELL CABLE TOOL OPERATOR Work Phone: [facility] 05-22-2022 17:32-0500 Diastolic blood pressure 64 mm[Hg] Kylee Praisler-Wood PROVIDER NETWORK ANALYST.OIL WELL CABLE TOOL OPERATOR Work Phone: [facility] 05-22-2022 17:32-0500 Heart rate 90 /min Kylee Praisler-Wood PROVIDER NETWORK ANALYST.OIL WELL CABLE TOOL OPERATOR Work Phone: [facility] 05-22-2022 17:32-0500 Respiratory rate 18 /min Kylee Praisler-Wood PROVIDER NETWORK ANALYST.OIL WELL CABLE TOOL OPERATOR Work Phone: [facility] 05-22-2022 17:32-0500 SaO2% (BldA) [Mass fraction] 98 % Kylee Praisler-Wood PROVIDER NETWORK ANALYST.OIL WELL CABLE TOOL OPERATOR Work Phone: [facility] 05-22-2022 17:32-0500 Systolic blood pressure 102 mm[Hg] Kylee Praisler-Wood PROVIDER NETWORK ANALYST.OIL WELL CABLE TOOL OPERATOR Work Phone: [facility] 02-20-2022 09:08-0400 Body temperature 97.9 [degF] Dee Roca PA-C Work Phone: [facility] 02-20-2022 09:08-0400 Body weight 73.03 kg Dee Roca PA-C Work Phone: [facility] 02-20-2022 09:08-0400 Diastolic blood pressure 70 mm[Hg] Dee Roca PA-C Work Phone: [facility] 02-20-2022 09:08-0400 Heart rate 80 /min Dee Roca PA-C Work Phone: [facility] 02-20-2022 09:08-0400 Respiratory rate 16 /min Dee Roca PA-C Work Phone: [facility] 02-20-2022 09:08-0400 Systolic blood pressure 92 mm[Hg] Dee Roca PA-C Work Phone: [facility] 01-18-2022 12:34-0400 Diastolic blood pressure 74 mm[Hg] DR RADHA CRUZ MD [facility] 01-18-2022 12:34-0400 Heart rate 76 /min DR RADHA CRUZ MD [facility] 01-18-2022 12:34-0400 Respiratory rate 16 /min DR RADHA CRUZ MD [facility] 01-18-2022 12:34-0400 Systolic blood pressure 115 mm[Hg] DR RADHA CRUZ MD [facility] 01-18-2022 09:30-0400 Diastolic blood pressure 75 mm[Hg] DR RADHA CRUZ MD [facility] 01-18-2022 09:30-0400 Heart rate 75 /min DR RADHA CRUZ MD [facility] 01-18-2022 09:30-0400 Respiratory rate 16 /min DR RADHA CRUZ MD [facility] 01-18-2022 09:30-0400 Systolic blood pressure 95 mm[Hg] DR RADHA CRUZ MD [facility] 01-18-2022 08:17-0400 Diastolic blood pressure 72 mm[Hg] DR RADHA CRUZ MD [facility] 01-18-2022 08:17-0400 Heart rate 88 /min DR RADHA CRUZ MD [facility] 01-18-2022 08:17-0400 Respiratory rate 16 /min DR RADHA CRUZ MD [facility] 01-18-2022 08:17-0400 Systolic blood pressure 117 mm[Hg] DR RADHA CRUZ MD [facility]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 Summary Start: 02-16-2024 End: 02-16-2024 Emergency department patient visit [facility] Facility:[facility] Start: 02-15-2024 Telephone encounter Lesli chino APRN.OIL WELL CABLE TOOL OPERATOR Work Phone: OB/Gynecology Comment on above: Breast Pump Start: 02-15-2024 End: 02-15-2024 ambulatory LESLI SOLANO Facility:[facility] Start: 02-15-2024 End: 02-15-2024 ambulatory LESLI SOLANO Facility:[facility] Start: 02-15-2024 End: 02-15-2024 Patient encounter procedure Lesli Solano PROVIDER NETWORK ANALYST.OIL WELL CABLE TOOL OPERATOR Work Phone: OB/Gynecology Comment on above: PCOS (polycystic ova rosa syndrome) (Primary Dx); Irregular periods/menstrual cycles; Chronic bilateral back pain, unspecified back location; , absence Start: 02-11-2024 Chart abstracting Wu man MD Work Phone: [facility] Comment on above: Outside Imaging Start: 02-11-2024 End: 02-11-2024 ambulatory Pari Livingston NP Facility:[facility] Start: 02-08-2024 End: 02-08-2024 ambulatory Wu Herrera Facility:[facility] Start: 02-03-2024 Telephone encounter Pari kelly PROVIDER NETWORK ANALYST.OIL WELL CABLE TOOL OPERATOR Work Phone: OB/Gynecology Comment on above: Orders Start: 01-22-2024 Chart abstracting Wu man MD Work Phone: [facility] Comment on above: ER Discharge Summary Start: 01-21-2024 End: 01-21-2024 Emergency department patient visit Federico Lotus Facility:[facility] Start: 01-19-2024 End: 01-19-2024 ambulatory Wu Herrera MD Work Phone: [facility] Comment on above: Stool Start: 01-19-2024 Telephone encounter Wu Herrera MD Work Phone: [facility] Comment on above: Results Start: 01-19-2024 End: 01-19-2024 Patient encounter procedure Pari Livingston PROVIDER NETWORK ANALYST.OIL WELL CABLE TOOL OPERATOR Work Phone: OB/Gynecology Comment on above: Insertion of implant able subdermal contraceptive (Primary Dx); Lump in chest; Breast skin changes Start: 01-18-2024 End: 01-18-2024 ambulatory WU HERRERA Facility:[facility] Start: 01-18-2024 End: 01-18-2024 Patient encounter procedure Wu Herrera MD Work Phone: [facility] [place] Comment on above: RUQ pain (Primary Dx ); Nausea and vomiting, unspecified vomiting type; Dehydration, mild; Bruising; Diarrhea, unspecified type; Arthralgia, unspecified joint Start: 01-10-2024 End: 01-10-2024 Emergency department patient visit Wu Herrera Facility:[facility] Start: 01-08-2024 End: 01-08-2024 ambulatory WU HERRERA Facility:[facility] Start: 01-08-2024 End: 01-08-2024 Office outpatient visit 15 minutes Wu Salcedo PROVIDER NETWORK ANALYST.OIL WELL CABLE TOOL OPERATOR Work Phone: [facility] Comment on above: Worms in stool (Prim elvi Dx); Folliculitis Start: 12-22-2023 End: 12-22-2023 Patient encounter procedure Pari Livingston APRN.OIL WELL CABLE TOOL OPERATOR Work Phone: OB/Gynecology Comment on above: 2 weeks f ollow-up (Primary Dx); Rapid weight loss; Encounter for initial prescription of implantable subdermal contraceptive Start: 12-15-2023 End: 12-15-2023 ambulatory NUPUR QUIROS Facility[facility] Start: 12-14-2023 Chart abstracting Aaliyah Espitia [facility] [place] Comment on above: ER F/U Start: 12-14-2023 End: 12-14-2023 Office outpatient visit 15 minutes Satya Hanks APRN.OIL WELL CABLE TOOL OPERATOR Work Phone: [facility] [place] Comment on above: Elevated BP without diagnosis of hypertension (Primary Dx); Chest pain due to myocardial ischemia, unspecified ischemic chest pain type; Visual changes Start: 12-10-2023 Chart abstracting Wu man MD Work Phone: [facility] [place] Comment on above: Outside TOOL GRINDER OPERATOR EXTERNAL Procedur e Start: 12-09-2023 ambulatory Smiley Tripathi MD Work Phone: OB/Gynecology Comment on above: Ob Delivery Note Start: 12-02-2023 End: 12-02-2023 Patient encounter procedure Daisy Hilliard APRN.CNM Work Phone: OB/Gynecology Comment on above: 38 weeks gestation o f (Primary Dx); High-risk in third trimester; Supervision of high risk , antepartum; Bipolar 1 disorder (HCC); Severe episode of recurrent major depressive disorder, without psychotic features (HCC); Group beta Strep positive Start: 11-28-2023 End: 11-28-2023 ambulatory CHRISTINE WELSH Facility:[id number] Start: 11-27-2023 End: 11-27-2023 Office outpatient visit 15 minutes Shruthi Estrada MD Work Phone: OB/Gynecology Comment on above: High-risk in third trimester (Primary Dx); 37 weeks gestation of ; Decreased movements in second trimester, single or unspecified fetus Start: 11-20-2023 End: 11-20-2023 Patient encounter procedure Shruthi Estrada MD Work Phone: OB/Gynecology Comment on above: High-risk in third trimester (Primary Dx); Abnormal glucose complicating ; History of depression; 36 weeks gestation of Start: 11-12-2023 End: 11-12-2023 Patient encounter procedure Becac Castellon MD Work Phone: OB/Gynecology Comment on above: 35 weeks gestation o f (Primary Dx); High-risk in third trimester; Abnormal glucose complicating ; History of depression/ansiety/Bipolar; Bipolar 1 disorder (HCC); Uterine size-date discrepancy, third trimester Start: 11-12-2023 End: 11-12-2023 Patient encounter procedure [employer] [facility] Work Phone: OB/Gynecology Comment on above: Encounter for ultras ound to check growth (Primary Dx); Fundal height low for dates in third trimester; Uterine size-date discrepancy, third trimester; 35 weeks gestation of Start: 11-09-2023 Refill Jose Cruz Hamilton Work Phone: OB/Gynecology Comment on above: Refill Request Start: 11-05-2023 Telephone encounter Jenni Ramos Ob L&D Work Phone: OB/Gynecology Comment on above: Railway Engineer - 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 (M-Power 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, 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) Start: 11-02-2023 End: 11-02-2023 Office outpatient visit 15 minutes Shruthi Estrada MD Work Phone: OB/Gynecology Comment on above: 34 weeks gestation o f (Primary Dx); Encounter for supervision of high risk in third trimester, antepartum Start: 10-30-2023 Telephone encounter [facility] Ob L&D Work Phone: OB/Gynecology Comment on above: Railway Engineer - 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 (M-Power 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, 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) Start: 10-19-2023 End: 10-19-2023 Patient encounter procedure On Air Ann[facility] Work Phone: OB/Gynecology Comment on above: Uterine size date di screpancy, third trimester (Primary Dx); Suspected problem with growth not found; 32 weeks gestation of ; Decreased movements in third trimester, single or unspecified fetus Encounter for superv ision of high risk in third trimester, antepartum (Primary Dx); 32 weeks gestation of ; Decreased movements in third trimester, single or unspecified fetus; Uterine size-date discrepancy, third trimester Start: 10-16-2023 Telephone encounter [facility] Ob L&D Work Phone: OB/Gynecology Comment on above: Railway Engineer - O 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 (M-Power 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, LMTCB) Start: 10-15-2023 End: 10-15-2023 Patient encounter procedure Car CALLOWAY Work Phone: [facility] Comment on above: URI, acute (Primary Dx) Start: 10-14-2023 Chart abstracting Wu man MD Work Phone: [facility] [place] Comment on above: Outside OB Triage Start: 09-25-2023 End: 09-25-2023 Patient encounter procedure Sara Condon APRN.CNM Work Phone: OB/Gynecology Comment on above: 28 weeks gestation o f (Primary Dx); Supervision of high risk , antepartum; Need for vaccination Oropharyngeal dyspha brandi (Primary Dx) Start: 09-11-2023 End: 09-11-2023 Patient encounter procedure Dee Roca PA-C Work Phone: [facility] Comment on above: Oropharyngeal dyspha brandi (Primary Dx) Start: 09-10-2023 End: 09-10-2023 Patient encounter procedure Jose Cruz Espitia MD Work Phone: OB/Gynecology Comment on above: Supervision of high risk , antepartum (Primary Dx); 26 weeks gestation of ; Spotting in ; Itch of skin Start: 09-09-2023 ambulatory Jose Cruz Hamilton Work Phone: OB/Gynecology Comment on above: Spotting/no movement since last night Start: 08-28-2023 End: 08-28-2023 Patient encounter procedure Becca Castellon MD Work Phone: OB/Gynecology Comment on above: 24 weeks gestation o f (Primary Dx); Supervision of high risk , antepartum Start: 08-27-2023 Telephone encounter Sara eastman PROVIDER NETWORK ANALYST.CNM Work Phone: OB/Gynecology Comment on above: Decreased FM Start: 08-19-2023 Telephone encounter Lesli chino PROVIDER NETWORK ANALYST.OIL WELL CABLE TOOL OPERATOR Work Phone: OB/Gynecology Comment on above: Results Start: 08-18-2023 Chart abstracting Wu man MD Work Phone: [facility] [place] Comment on above: Care Start: 08-17-2023 End: 08-17-2023 Patient encounter procedure Daisy Hilliard PROVIDER NETWORK ANALYST.CNM Work Phone: OB/Gynecology Comment on above: 23 weeks gestation o f (Primary Dx); Supervision of high risk , antepartum; Dysuria; Urinary frequency; Sinus tachycardia; Round ligament pain Start: 08-17-2023 Telephone encounter Daisy torres PROVIDER NETWORK ANALYST.CNM Work Phone: OB/Gynecology Comment on above: OB pelvic pain Start: 08-14-2023 End: 08-14-2023 Patient encounter procedure Siri Espitia PROVIDER NETWORK ANALYST.OIL WELL CABLE TOOL OPERATOR Work Phone: [facility] Comment on above: Abdominal discomfort (Primary Dx) Start: 06-18-2023 Refill Wu licea MD Work Phone: [facility] Comment on above: Refill Request Refill Request; Refi ll Request Start: 06-12-2023 E-mail encounter fro m caregiver Jenni Ramos Ob L&D Work Phone: [facility] Start: 06-12-2023 End: 06-12-2023 Patient encounter procedure Jenni Ramos Ob L&D Work Phone: OB/Gynecology Comment on above: M-Power Referral Patient request for diagnostic testing (Primary Dx); Supervision of high risk , antepartum; 13 weeks gestation of ; Supervision of high risk in second trimester; Bipolar 1 disorder (HCC); UTI (urinary tract infection) in , antepartum Encounter for (NT) n uchal translucency scan (Primary Dx); 13 weeks gestation of Start: 06-12-2023 End: 06-12-2023 Patient requested procedure Daisy Hilliard APRN.CNM Work Phone: [facility] Start: 06-01-2023 Chart abstracting Wu man MD Work Phone: [facility] Comment on above: ext document (ER rep ort) Start: 06-01-2023 End: 06-01-2023 Patient encounter procedure Cora Alexander APRN.OIL WELL CABLE TOOL OPERATOR Work Phone: [facility] Comment on above: Routine physical exa mination (Primary Dx); Morning sickness; Acute cystitis without hematuria; Severe episode of recurrent major depressive disorder, without psychotic features (HCC) Start: 06-01-2023 End: 06-01-2023 Physical examination Cora Alexander APRN.OIL WELL CABLE TOOL OPERATOR Work Phone: [facility] Work Phone: Start: 05-19-2023 End: 05-19-2023 Patient encounter procedure Jose Cruz Espitia MD Work Phone: OB/Gynecology Comment on above: Encounter for screen ing for malignant neoplasm of cervix (Primary Dx); care, antepartum; Sinus tachycardia; Patient request for diagnostic testing Start: 05-19-2023 End: 05-19-2023 Patient requested procedure Jose Cruz Espitia MD Work Phone: [facility] Work Phone: Start: 05-14-2023 End: 11-12-2023 Patient requested procedure Becca Castellon MD Work Phone: [facility] Start: 05-11-2023 Chart abstracting Wu man MD Work Phone: [facility] Comment on above: ext document (ER Rep ort) Start: 05-01-2023 End: 05-01-2023 Office outpatient visit 15 minutes Satya Hanks APRN.OIL WELL CABLE TOOL OPERATOR Work Phone: [facility] [place] Comment on above: Screening for tuberc ulosis (Primary Dx); PVC's (premature ventricular contractions) Start: 04-27-2023 Telephone encounter Jose Cruz whitfield MD Work Phone: OB/Gynecology Comment on above: breast pump Start: 04-18-2023 End: 04-18-2023 Patient encounter procedure Siri Espitia APRN.OIL WELL CABLE TOOL OPERATOR Work Phone: [facility] Comment on above: Missed period (Prima ry Dx) Start: 04-12-2023 End: 04-12-2023 Patient encounter procedure Siri Espitia APRN.OIL WELL CABLE TOOL OPERATOR Work Phone: [facility] Comment on above: Skin infection (Prim elvi Dx) Start: 03-24-2023 Telephone encounter Dee wu PA-C Work Phone: [facility] Comment on above: Results Start: 03-23-2023 End: 03-23-2023 Patient encounter procedure Dee Roca PA-C Work Phone: [facility] [place] Comment on above: Weight gain (Primary Dx); Fatigue, unspecified type; Screening for diabetes mellitus; Screening cholesterol level; Encounter for lipid screening for cardiovascular disease; Encounter for immunization Start: 03-19-2023 End: 03-19-2023 Patient encounter procedure Darrell De Paz APRN.OIL WELL CABLE TOOL OPERATOR Work Phone: [facility] Comment on above: Bacterial sinusitis (Primary Dx); Weight gain Start: 03-10-2023 Telephone encounter Frankie Smith cristi PROVIDER NETWORK ANALYST.OIL WELL CABLE TOOL OPERATOR Work Phone: [address] [place] [address] Comment on above: Lab Orders Start: 03-03-2023 End: 03-03-2023 Patient encounter procedure Pari Livingston PROVIDER NETWORK ANALYST.OIL WELL CABLE TOOL OPERATOR Work Phone: OB/Gynecology Comment on above: Encounter for Nexpla non removal (Primary Dx) Start: 01-08-2023 Refill Gaetano Hamilton Work Phone: Gastroenterolgy Comment on above: Refill Request Start: 12-16-2022 End: 12-16-2022 Office outpatient visit 15 minutes Wu Salcedo PROVIDER NETWORK ANALYST.OIL WELL CABLE TOOL OPERATOR Work Phone: [facility] Comment on above: Acute midline low ba ck pain without sciatica (Primary Dx) Start: 12-14-2022 Telephone encounter Wu Herrera MD Work Phone: [facility] Comment on above: Patient Update Start: 12-10-2022 End: 12-10-2022 Subsequent hospital visit by physician [facility] [place] Work Phone: Radiology Comment on above: Acute midline low ba ck pain without sciatica [M54.50] Start: 12-10-2022 End: 12-10-2022 Patient encounter procedure Lissette Ramsey Yessilulú SHRUTI Work Phone: [facility] Comment on above: Acute midline low ba ck pain without sciatica (Primary Dx) Start: 12-09-2022 Telephone encounter Wu Herrera MD Work Phone: [facility] Comment on above: Results Start: 11-13-2022 End: 11-13-2022 Subsequent hospital visit by physician [facility] Work Phone: Radiology Comment on above: Abnormal liver funct ion tests [R79.89] Start: 11-10-2022 Telephone encounter Wu Herrera MD Work Phone: [facility] [place] Comment on above: abnormal results Results, Lab Start: 11-07-2022 End: 11-07-2022 Subsequent hospital visit by physician [facility] Comment on above: Chronic constipation [K59.09] Start: 11-07-2022 End: 11-07-2022 Patient encounter procedure Gaetano Schneider MD Work Phone: Gastroenterolgy Comment on above: Abdominal pain, LLQ (Primary Dx); Chronic constipation; Abdominal bloating; Nausea and vomiting, unspecified vomiting type; Heartburn; Weight loss; Change in bowel habits Start: 10-29-2022 Chart abstracting Wu man MD Work Phone: [facility] Comment on above: Results Start: 10-13-2022 End: 10-13-2022 Office outpatient visit 15 minutes Gloria Hutton PA-C Work Phone: [facility] Comment on above: Chronic constipation (Primary Dx) Start: 10-03-2022 Chart abstracting Wu man MD Work Phone: [facility] Start: 09-18-2022 End: 09-18-2022 Patient encounter procedure Pari Livingston APRN.CNP Work Phone: OB/Gynecology Comment on above: Encounter for gyneco logical examination (general) (routine) without abnormal findings (Primary Dx); Encounter for surveillance of implantable subdermal contraceptive Start: 09-18-2022 End: 09-18-2022 Patient encounter status Pari Livingston APRN.CNP Work Phone: OB/Gynecology Start: 07-04-2022 ambulatory Zehra lantigua PROVIDER NETWORK ANALYST.OIL WELL CABLE TOOL OPERATOR Work Phone: Telemedicine Comment on above: Treatment not availa ble (Primary Dx) Start: 06-24-2022 Telephone encounter Pari kelly PROVIDER NETWORK ANALYST.OIL WELL CABLE TOOL OPERATOR Work Phone: OB/Gynecology Comment on above: Orders Start: 06-24-2022 End: 06-24-2022 Subsequent hospital visit by physician [facility] Comment on above: Breast pain, left [N 64.4] Start: 06-10-2022 End: 06-10-2022 Patient encounter procedure Pari Livingston APRN.OIL WELL CABLE TOOL OPERATOR Work Phone: OB/Gynecology Comment on above: Breast pain, left (P rimary Dx); Cellulitis, unspecified cellulitis site Start: 05-22-2022 End: 05-22-2022 Patient encounter procedure Kylee Hernandez APRN.CNP Work Phone: [facility] Comment on above: Cellulitis of skin ( Primary Dx) Start: 05-17-2022 Refill Dee yoder PA-C Work Phone: [facility] [place] Comment on above: Refill Request Start: 03-05-2022 Telephone encounter Wu Herrera MD Work Phone: [facility] [place] Comment on above: Medication Problem Start: 02-20-2022 Telephone encounter Dee wu PA-C Work Phone: [facility] [place] Comment on above: Orders Start: 02-20-2022 End: 02-20-2022 Patient encounter procedure Dee Roca PA-C Work Phone: [facility] [place] Comment on above: Severe episode of re current major depressive disorder, without psychotic features (HCC) (Primary Dx); Alcohol abuse; Anorexia nervosa, binge eating/purging type; Vitamin B12 deficiency; PCOS (polycystic ovarian syndrome); Insulin resistance; Encounter for lipid screening for cardiovascular disease; Nausea Start: 01-26-2022 ambulatory Provider Pending Facili ty:[id number] Start: 01-26-2022 Refill Prai Livingston APRN.OIL WELL CABLE TOOL OPERATOR Work Phone: OB/Gynecology Comment on above: Refill Request Start: 01-25-2022 ambulatory Provider Pending Facili ty:[id number] Start: 01-19-[address] GRISEL Davis cility:[id number] Start: 01-18-[address] Ana Davis cility:[id number] Start: 01-18-2022 End: 01-18-2022 Emergency department patient visit DR RADHA CRUZ MD [facility] Start: 01-10-[address] GRISEL Davis cility:[id number] Start: 01-07-2022 End: 01-07-2022 ambulatory Smiley Tripathi MD Work Phone: OB/Gynecology Comment on above: TOOL GRINDER OPERATOR EXTERNAL Ultrasound Start: 01-07-2022 End: 01-07-2022 Patient encounter procedure Smiley Tripathi MD Work Phone: [facility] Start: 01-03-2022 End: 01-03-2022 Patient encounter procedure Pari Yara PROVIDER NETWORK ANALYST.OIL WELL CABLE TOOL OPERATOR Work Phone: OB/Gynecology Comment on above: Abnormal uterine ble eding (AUB) (Primary Dx) Start: 2021 End: 2021 Patient encounter procedure Daisy Diego PROVIDER NETWORK ANALYST.OIL WELL CABLE TOOL OPERATOR Work Phone: [facility] Comment on above: Fingernail problem ( Primary Dx); Pain of finger of right hand Start: 11-22-2021 Patient encounter status Text Entry Free [facility] Start: 11-21-2021 End: 11-23-2021 Evaluation and management of inpatient Joseph Hester [facility] Med Surg ICU [id number] Start: 09-16-2021 Patient encounter status Daisy Diego APRN.OIL WELL CABLE TOOL OPERATOR Work Phone: [facility] Work Phone: Start: 05-27-2021 End: 05-28-2021 Emergency department patient visit SARAH CONDE DO [facility] Start: 04-01-2021 End: 04-02-2021 Evaluation and management of inpatient Ting Crook MD Work Phone: [facility] Emergency Dept Comment on above: Alcohol withdrawal s yndrome with complication (HCC) (Primary Dx); Anxiety state Start: 06-25-2020 End: 09-18-2022 Patient encounter status Shruthi Estrada MD Work Phone: [facility] Start: 03-11-2018 End: 03-12-2018 Patient encounter RAMIRO KEITA [facility] Start: 01-26-2018 End: 01-28-2018 Evaluation and management of inpatient SANA CORTEZ [facility] Start: 01-25-2018 Patient encounter SHRUTHI PEREZ [facility] Start: 01-25-2018 End: 01-26-2018 Emergency department patient visit TONNY [facility] Start: 10-24-2017 End: 10-24-2017 Patient encounter RAMIRO KEITA [facility] Start: 07-22-2017 End: 07-23-2017 Emergency department patient visit TONNY [place] [facility] Start: 07-22-2017 End: 07-22-2017 Patient encounter CLAUDIA Broderick BRANDON [facility] Start: 05-31-2017 End: 06-02-2017 Evaluation and management of inpatient NOLBERTO Cl TURNERCOLE [facility] Start: 05-31-2017 End: 05-31-2017 Patient encounter MARINO GAVIN [facility] Start: 05-31-2017 End: 05-31-2017 Emergency department patient visit [facility] Procedures Date Procedure Procedure Detail Performing Clinician Start: 12-09-2024 Us abdominal real time w/image limited Dee Roca PA-C Work Phone: Start: 07-18-2024 Mri brain brain stem w/o contrast material Carmen Siegel MD Work Phone: Start: 07-08-2024 Gastric emptying imaging study Ofelia villegas PA-C Work Phone: Start: 06-15-2024 UA DIP,URINE HCG (POC) Smiley Tripathi MD Work Phone: Start: 05-25-2024 Ct head/brain w/o contrast material Chapo W Wright DO Work Phone: Start: 05-25-2024 EXTRA TUBES Chapo W Wright DO Work Phone: Start: 05-25-2024 LIGHT BLUE TOP Chapo W Wright DO Work Phone: Start: 05-25-2024 SST TOP Chapo W Wright DO Work Phone: Start: 05-25-2024 End: 05-25-2024 Basic metabolic panel calcium total Chapo Wright DO Work Phone: Start: 05-25-2024 Ethanol [Mass/volume] in Serum or Plasma Chapo Wright DO Work Phone: Start: 04-14-2024 Colonoscopy flx dx w/collj spec when pfrmd Ofelia Merritt PA-C Work Phone: Start: 04-14-2024 Esophagogastroduodenoscopy transoral diagnostic Ofelia Merritt PA-C Work Phone: Start: 04-14-2024 Colonoscopy PARI PHILLIPF Start: 04-07-2024 Us pelvic nonobstetric real-time image complete Lesli Solano APRN.OIL WELL CABLE TOOL OPERATOR Work Phone: Start: 04-04-2024 Radiologic exam chest 2 views Siri Espitia APRN.OIL WELL CABLE TOOL OPERATOR Work Phone: Start: 03-31-2024 Microscopic observation [Identifier] in Cervix by Cyto stain Chapo Wright DO Work Phone: Start: 03-15-2024 Radiologic examination skull 4/> views Wu Herrera MD Work Phone: Start: 03-10-2024 Bone &/joint imaging whole body Wu Herrera MD Work Phone: Start: 03-07-2024 Hepatobil syst imag inc gb w/pharma intervenj Wu Herrera MD Work Phone: Start: 02-29-2024 Radiologic examination tibia & fibula 2 views Wu Herrera MD Work Phone: Start: 12-02-2023 URINE OB DIP B/O Shruthi Estrada MD Work Phone: Start: 11-20-2023 URINE OB DIP B/O Shruthi Estrada MD Work Phone: Start: 11-12-2023 URINE OB DIP B/O Becca Castellon MD Work Phone: Start: 11-12-2023 Us preg uterus after 1st trimest 1 gestation Shruthi Estrada MD Work Phone: Start: 11-02-2023 URINE OB DIP B/O Shruthi Estrada MD Work Phone: Start: 10-19-2023 Us preg uterus after 1st trimest 1 gestation Daisy Hilliard APRN.CNM Work Phone: Start: 10-15-2023 COVID & INFLUENZA A/B & RSV NAAT, ROUTINE Car [place] Work Phone: Start: 08-28-2023 URINE OB DIP B/O Becca Castellon MD Work Phone: Start: 08-17-2023 URINE OB DIP B/O Daisy Hilliard APRN.CNM Work Phone: Start: 06-12-2023 Us nuchal translucency 1st gestation Jose Cruz Espitia MD Work Phone: Start: 05-19-2023 Iadna trichomonas vaginalis amplified probe tech Jose Cruz Espitia MD Work Phone: Start: 04-18-2023 Urine test visual color cmprsn meths Siri Espitia APRN.OIL WELL CABLE TOOL OPERATOR Work Phone: Start: 03-23-2023 INFLUENZA VACCINE, AGE 6 MO - 64 YR, QUADRIVALENT (AFLURIA, FLULAVAL, FLUZONE) Dee Roca PA-C Work Phone: Start: 12-10-2022 Radex spine lumbosacral 2/3 views Lissette Jay PA-C Work Phone: Start: 12-10-2022 Urnls dip stick/tablet rgnt auto w/o microscopy Lissette SHIC Work Phone: Start: 11-13-2022 Us abdominal real time w/image limited Gaetano Schneider MD Work Phone: Start: 11-07-2022 Radiologic exam abdomen 3+ views Gaetano Schneider MD Work Phone: Start: 06-24-2022 Us breast uni real time with image limited Pari Livingston FELIX Work Phone: Start: 11-22-2021 End: 11-22-2021 EKG impression [facility] Start: 11-21-2021 End: 11-21-2021 Arterial Full Panel -Stat Wade Hernández Start: 06-02-2021 Ecg routine ecg w/least 12 lds i&r only Start: 04-02-2021 Blood count complete auto&auto difrntl wbc Сергей Murguia MD Work Phone: Start: 04-01-2021 COVID-19 Maxwell Cramer PA-C Work Phone: Start: 04-01-2021 Drug screen class list a Lea reynoso PA-C Work Phone: Start: 04-01-2021 Drug tst prsmv instrmnt chem analyzers pr date Maxwell Cramer PA-C Work Phone: Start: 04-01-2021 Assay of ethanol Lea Vences PA-C Work Phone: Start: 04-01-2021 Comprehensive metabolic panel Lea Vences PA-C Work Phone: Plan of Treatment Date Care Activity Detail Author Start: 2061 RSV Vaccine (1 - 1-dose 60+ series) RSV Vaccine (1 - 1-dose 60+ series) [facility] Start: 12-25-2051 Zoster Vaccines (1 of 2) Zoster Vaccines (1 of 2) [facility] Start: 09-24-2033 DTaP/Tdap/Td Vaccines (8 - Td or Tdap) DTaP/Tdap/Td Vaccines (8 - Td or Tdap) [facility] Start: 09-24-2033 Urine microalbumin profile DTaP,Tdap,Td Vaccine (8 - Td or Tdap) [facility] Start: 04-06-2027 Urine microalbumin profile [facility] Start: 03-31-2027 Screening for malignant neoplasm of cervix [facility] Start: 05-19-2026 Pap Testing Pap Testing [facility] Start: 05-19-2026 Screening for malignant neoplasm of cervix [facility] Start: 12-16-2025 Annual PCP Team Chronic Disease Visit Annual PCP Team Chronic Disease Visit [facility] Start: 12-01-2025 Annual PCP Team Chronic Disease Visit Annual PCP Team Chronic Disease Visit [facility] Start: 11-25-2025 Annual PCP Team Chronic Disease Visit Annual PCP Team Chronic Disease Visit [facility] Start: 10-17-2025 Annual PCP Team Chronic Disease Visit Annual PCP Team Chronic Disease Visit [facility] Start: 10-11-2025 Annual PCP Team Chronic Disease Visit Annual PCP Team Chronic Disease Visit [facility] Start: 09-19-2025 Annual PCP Team Chronic Disease Visit Annual PCP Team Chronic Disease Visit [facility] Start: 08-27-2025 Annual PCP Team Chronic Disease Visit Annual PCP Team Chronic Disease Visit [facility] Start: 08-22-2025 Annual PCP Team Chronic Disease Visit Annual PCP Team Chronic Disease Visit [facility] Start: 07-19-2025 Annual PCP Team Chronic Disease Visit Annual PCP Team Chronic Disease Visit [facility] Start: 07-03-2025 End: 07-03-2025 Patient encounter procedure 07/03/2025 1:20 PM EST Office Visit [facility] [place] [address] [place], [place] [id number] Dee Roca PA-C [address] [place] [id number] physical [facility] [place] Comment on above: physical Start: 06-30-2025 Annual PCP Team Chronic Disease Visit Annual PCP Team Chronic Disease Visit [facility] Start: 06-30-2025 Covid-19 Vaccine ( season) Covid-19 Vaccine ( season) [facility] Comment on above: Postponed from 03/13/2024 (Declined at t his time) Start: 06-15-2025 GC (Gonorrhea) Screening (18-24) GC (Gonorrhea) Screening (18-24) [facility] Start: 06-15-2025 Screening for Chlamydia trachomatis Chlamydia Screening (18-24) [facility] Start: 05-28-2025 Annual PCP Team Chronic Disease Visit Annual PCP Team Chronic Disease Visit [facility] Start: 03-31-2025 GC (Gonorrhea) Screening (18-24) GC (Gonorrhea) Screening (18-24) [facility] Start: 03-31-2025 Screening for Chlamydia trachomatis Chlamydia Screening (18-) [facility] Start: 03-31-2025 Screening for malignant neoplasm of cervix Cervical Cancer Screening [facility] Start: 03-31-2025 End: 03-31-2025 Patient encounter procedure 03/31/2025 9:15 AM EDT Office Visit OB/Gynecology [address] [place] [address] Lesli Solano APRN.OIL WELL CABLE TOOL OPERATOR [address] [place] [address] Cervical Cancer Screening OB/Gynecology Comment on above: Cervical Cancer Screening Start: 03-16-2025 Annual PCP Team Chronic Disease Visit Annual PCP Team Chronic Disease Visit [facility] Start: 02-28-2025 Annual PCP Team Chronic Disease Visit Annual PCP Team Chronic Disease Visit [facility] Start: 01-24-2025 End: 01-24-2025 Patient encounter procedure 01/24/2025 4:00 PM EDT Office Visit OB/Gynecology [address] [place] [address] Pari Livingston APRN.OIL WELL CABLE TOOL OPERATOR [address] [place] [address] Annual Exam OB/Gynecology Comment on above: Annual Exam Start: 01-19-2025 End: 01-19-2025 Patient encounter procedure 01/19/2025 1:00 PM EDT Office Visit OB/Gynecology [address] [place] [address] Pari Livingston APRN.OIL WELL CABLE TOOL OPERATOR [address] [place] [address] Annual Exam OB/Gynecology Comment on above: Annual Exam Start: 01-17-2025 Annual PCP Team Chronic Disease Visit Annual PCP Team Chronic Disease Visit [facility] Start: 01-16-2025 End: 01-16-2025 Patient encounter procedure 01/16/2025 3:30 PM EDT Office Visit OB/Gynecology [address] [place] [address] Pari Livingston APRN.OIL WELL CABLE TOOL OPERATOR [address] [place] [address] Annual Exam OB/Gynecology Comment on above: Annual Exam Start: 01-09-2025 End: 01-09-2025 Patient encounter procedure General Surgery Comment on above: ct follow up FU: CT 12/27/2024. K ROSA Start: 01-02-2025 End: 01-02-2025 Patient encounter procedure 01/02/2025 11:40 AM EDT Office Visit [facility] [place] [address] [place] [address] Dee Roca PA-C [address] [place] [address] CT Scan Follow up Family [facility] [place] Comment on above: CT Scan Follow up Start: 12-27-2024 End: 12-27-2024 Patient encounter procedure Cat Scan Comment on above: Right upper quadrant pain [R10.11] Start: 12-16-2024 End: 03-17-2025 Amylase [Enzymatic activity/volume] in Serum or Plasma [facility] Comment on above: Expected: 12/16/2024, Expires: Start: 12-16-2024 End: 03-17-2025 CATECHOLAMINES FRACTIONATED, URINE FREE CATECHOLAMINES FRACTIONATED, URINE FREE Lab Routine FUO (fever of unknown origin) Night sweats Weight loss Fatigue, unspecified type Expected: 12/16/2024, Expires: 03/17/2025 [facility] Comment on above: Expected: 12/16/2024, Expires: Start: 12-16-2024 End: 03-17-2025 Lipase [Enzymatic activity/volume] in Serum or Plasma [facility] Comment on above: Expected: 12/16/2024, Expires: Start: 12-13-2024 Annual PCP Team Chronic Disease Visit Annual PCP Team Chronic Disease Visit [facility] Start: 12-01-2024 End: 12-01-2024 Patient encounter procedure 12/01/2024 1:00 PM EDT Office Visit [facility] [place] [address] [place] [address] eDe Roca PA-C [address] [place] [id number] f/up [facility] Comment on above: f/up Start: 11-25-2024 End: 02-24-2025 Bacteria identified in Urine by Culture [facility] Comment on above: Expected: 11/25/2024, Expires: Start: 11-25-2024 End: 02-24-2025 CBC W Auto Differential panel - Blood [facility] Work Phone: Comment on above: Expected: 11/25/2024, Expires: Start: 11-25-2024 End: 02-24-2025 Comprehensive metabolic 2000 panel - Serum or Plasma [facility] Comment on above: Expected: 11/25/2024, Expires: Start: 11-25-2024 End: 02-24-2025 JENNY CHEUNG PANEL [facility] Comment on above: Expected: 11/25/2024, Expires: Start: 11-25-2024 End: 02-24-2025 T4/FTI/T4U [facility] Comment on above: Expected: 11/25/2024, Expires: Start: 11-25-2024 End: 02-24-2025 Thyrotropin [Units/volume] in Serum or Plasma [facility] Comment on above: Expected: 11/25/2024, Expires: Start: 11-25-2024 End: 02-24-2025 Urinalysis complete panel - Urine [facility] Comment on above: Expected: 11/25/2024, Expires: Start: 10-31-2024 End: 10-31-2024 ambulatory 10/31/2024 9:00 AM EDT [facility] [address] [place] [id number] Carmen Siegel MD [address] [place] [id number] Neurology Start: 10-18-2024 End: 10-18-2024 Patient encounter procedure 10/18/2024 11:30 AM EDT Office Visit OB/Gynecology [address] [place], [place] [id number] Daisy Hilliard APRN.CNM 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 Start: 10-17-2024 End: 10-17-2024 Patient encounter procedure 10/17/2024 4:20 PM EDT Office Visit [facility] [address] [place], [place] [phone] Frankie Varela APRN.OIL WELL CABLE TOOL OPERATOR [address] [place], [place] [phone] rash follow up [facility] Comment on above: rash follow up Start: 10-14-2024 End: 01-13-2025 Herpes simplex virus+Varicella zoster virus DNA [Presence] in Unspecified specimen by YAYO with probe detection [facility] Work Phone: Comment on above: Expected: 10/14/2024, Expires: Start: 10-11-2024 End: 01-10-2025 Borrelia burgdorferi IgG and IgM panel - Serum [facility] Comment on above: Expected: 10/11/2024, Expires: Start: 10-11-2024 End: 01-10-2025 C reactive protein [Mass/volume] in Serum or Plasma [facility] Comment on above: Expected: 10/11/2024, Expires: Start: 10-11-2024 End: 01-10-2025 Choriogonadotropin.beta subunit [Units/volume] in Serum or Plasma [facility] Comment on above: Expected: 10/11/2024, Expires: Start: 10-11-2024 End: 01-10-2025 Erythrocyte sedimentation rate [facility] Comment on above: Expected: 10/11/2024, Expires: Start: 10-11-2024 End: 01-10-2025 Nuclear Ab [Presence] in Serum by Immunoassay [facility] Work Phone: Comment on above: Expected: 10/11/2024, Expires: Start: 10-11-2024 End: 01-10-2025 Rheumatoid factor [Units/volume] in Serum or Plasma [facility] Comment on above: Expected: 10/11/2024, Expires: Start: 10-11-2024 End: 10-11-2024 Patient encounter procedure 10/11/2024 11:20 AM EDT Office Visit [facility] [address] [place], [place] [phone] Frankie Varela APRN.OIL WELL CABLE TOOL OPERATOR [address] [place], [place] [phone] Rash on feet [facility] Comment on above: Rash on feet Start: 10-10-2024 End: 01-09-2025 Comprehensive metabolic 2000 panel - Serum or Plasma [facility] Comment on above: Expected: 10/10/2024, Expires: Start: 10-10-2024 End: 01-09-2025 HIV 1+2 Ab [Presence] in Serum or Plasma by Immunoassay [facility] Work Phone: Comment on above: Expected: 10/10/2024, Expires: Start: 09-27-2024 End: 09-27-2024 Patient encounter procedure 09/27/2024 2:30 PM EDT Office Visit OB/Gynecology [address] [place], [place] [phone] Pari Livingston APRN.OIL WELL CABLE TOOL OPERATOR [address] [facility] [place], [place] [phone] f/u irregular bleeding (pt requested) OB/Gynecology Comment on above: f/u irregular bleeding (pt requested) Start: 09-24-2024 Annual PCP Team Chronic Disease Visit Annual PCP Team Chronic Disease Visit [facility] Start: 09-22-2024 End: 09-22-2024 Follow-up encounter Gastroenterology [place] Comment on above: 3 month follow up office visit, early sa tiety, constipation Start: 09-19-2024 End: 09-19-2024 Patient encounter procedure 09/19/2024 4:20 PM EDT Office Visit Family [facility] [address] [place] [address] Frankie Varela APRN.OIL WELL CABLE TOOL OPERATOR [address] [place], [place] [phone] 4WK FOllOW UP Family [facility] Comment on above: 4WK FOllOW UP Start: 09-19-2024 End: 12-19-2024 CBC W Auto Differential panel - Blood [facility] Work Phone: Comment on above: Expected: 09/19/2024, Expires: Start: 09-13-2024 End: 09-13-2024 Patient encounter procedure 09/13/2024 2:40 PM EST Office Visit Family [facility] [address] [place] [address], [place] [id number] Wu Herrera MD [address] [place], [place] [phone] ER follow up [facility] Comment on above: ER follow up Start: 09-10-2024 Annual PCP Team Chronic Disease Visit Annual PCP Team Chronic Disease Visit [facility] Start: 09-05-2024 End: 09-05-2024 ambulatory 09/05/2024 3:30 PM EST OT/PT/Speech Visit [facility] [address] [place], [place] [phone] Daisy Chadwick, PT Traumatic injury of head, initial encounter [S09.90XA] [facility] Comment on above: Traumatic injury of head, initial encoun ter [S09.90XA] Start: 08-30-2024 End: 08-30-2024 Patient encounter procedure 08/30/2024 1:45 PM EST Office Visit OB/Gynecology [address] [place] [address] Pari Livingston APRN.OIL WELL CABLE TOOL OPERATOR [address] [place] [address] labia bump not resolving OB/Gynecology Comment on above: labia bump not resolving Start: 08-29-2024 End: 08-29-2024 ambulatory 08/29/2024 1:15 PM EST OT/PT/Speech Visit [facility] [address] [place] [address] O'Daisy Posada, PT Traumatic injury of head, initial encounter [S09.90XA] [facility] Comment on above: Traumatic injury of head, initial encoun ter [S09.90XA] Start: 08-23-2024 End: 08-23-2024 ambulatory 08/23/2024 3:00 PM EST OT/PT/Speech Visit [facility] [address] [place] [address] O'Daisy Posada, PT S09.90XA (ICD-10-CM) - Traumatic injury of head, initial encounter [facility] Comment on above: S09.90XA (ICD-10-CM) - Traumatic injury of head, initial encounter Start: 08-22-2024 End: 08-22-2024 ambulatory 08/22/2024 2:45 PM EST OT/PT/Speech Visit [facility] [address] [place] [address] O'Daisy Posada, PT Traumatic injury of head, initial encounter [S09.90XA] [facility] Comment on above: Traumatic injury of head, initial encoun ter [S09.90XA] Start: 08-16-2024 End: 08-16-2024 ambulatory 08/16/2024 2:15 PM EST OT/PT/Speech Visit [facility] [address] [place] [address] Daisy Chadwick, PT S09.90XA (ICD-10-CM) - Traumatic injury of head, initial encounter [facility] Comment on above: S09.90XA (ICD-10-CM) - Traumatic injury of head, initial encounter Start: 08-10-2024 End: 08-10-2024 Patient encounter procedure 08/10/2024 1:00 PM EST Office Visit Adult Neurology [address] [place] [address] Carmen Siegel MD [address] [place], [place] [phone] Encounter for screening mammogram for malignant neoplasm of breast [Z12.31] Adult Neurology Comment on above: Encounter for screening mammogram for ma lignant neoplasm of breast [Z12.31] Start: 08-09-2024 End: 08-09-2024 ambulatory 08/09/2024 11:15 AM EST OT/PT/Speech Visit [facility] [address] [place] [address] Daisy Chadwick, PT S09.90XA (ICD-10-CM) - Traumatic injury of head, initial encounter [facility] Comment on above: S09.90XA (ICD-10-CM) - Traumatic injury of head, initial encounter Start: 08-08-2024 End: 08-08-2024 Patient encounter procedure 08/08/2024 1:30 PM EST Office Visit OB/Gynecology [address] [place] [address] Pari Livingston APRN.OIL WELL CABLE TOOL OPERATOR [address] [place] [address] STD testing OB/Gynecology Comment on above: STD testing Start: 08-08-2024 End: 08-08-2024 ambulatory 08/08/2024 11:30 AM EST OT/PT/Speech Visit [facility] [address] [place] [address] Richard Salazar, PT hyper mobility [facility] Comment on above: hyper mobility Start: 08-02-2024 End: 08-02-2024 ambulatory 08/02/2024 1:30 PM EST OT/PT/Speech Visit [facility] [address] [place] [address] Daisy Chadwick, PT S09.90XA (ICD-10-CM) - Traumatic injury of head, initial encounter [facility] Comment on above: S09.90XA (ICD-10-CM) - Traumatic injury of head, initial encounter Start: 07-27-2024 End: 07-27-2024 ambulatory 07/27/2024 1:15 PM EST [facility] Rhe[facility]ology [address] [address] [place] [address] [place], [place] [phone] Return in about 4 weeks (around 07/14/2024). Rheumatology Comment on above: Return in about 4 weeks (around 07/14/2024 ). Start: 07-26-2024 End: 07-26-2024 ambulatory 07/26/2024 9:45 AM EST OT/PT/Speech Visit [facility] [address] [place] [address] Daisy Chadwick, PT Post concussion symptoms [facility] Comment on above: Post concussion symptoms Start: 07-20-2024 Annual PCP Team Chronic Disease Visit Annual PCP Team Chronic Disease Visit [facility] Start: 07-19-2024 End: 07-19-2024 Patient encounter procedure 07/19/2024 9:20 AM EST Office Visit Family [facility] [address] [place] [address] Wu Herrera MD [address] [place] [address] Follow up [facility] Comment on above: Follow up Start: 07-18-2024 End: 07-18-2024 Patient encounter procedure 07/18/2024 1:00 PM EST Appointment Radiology [address] [place] [address] Traumatic injury of head, initial encounter [S09.90XA] Radiology Comment on above: Traumatic injury of head, initial encoun ter [S09.90XA] Start: 07-08-2024 End: 07-08-2024 Patient encounter procedure 07/08/2024 8:00 AM EST Appointment Nuclear Medicine [address] [place] [address] RUQ pain [R10.11] Nuclear Medicine Comment on above: RUQ pain [R10.11] Start: 06-30-2024 End: 06-30-2024 Patient encounter procedure Family [facility] Comment on above: physical Start: 06-29-2024 End: 06-29-2024 Patient encounter procedure 06/29/2024 1:00 PM EST Office Visit Adult Neurology [address] [place] [address] Carmen Siegel MD [address] [place] [address] Encounter for screening mammogram for malignant neoplasm of breast [Z12.31] Adult Neurology Comment on above: Encounter for screening mammogram for ma lignant neoplasm of breast [Z12.31] Start: 06-23-2024 End: 06-23-2024 Follow-up encounter 06/23/2024 12:30 PM EST [facility] [place] [address] [facility] [place] [phone] Ofelia Merritt PA-C [address] [place] [address] 3 month follow up office visit, diarrhea, stool testing done at [facility] Gastroenterology Laurent Comment on above: 3 month follow up office visit, diarrhea , stool testing done at [facility] Start: 06-23-2024 End: 06-23-2024 Patient encounter procedure 06/23/2024 12:30 PM EST Office Visit Gastroenterology [place] [address] [facility] [place] [phone] Ofelia Merritt PA-C [address] [facility] [place] [address] 3 month follow up office visit, diarrhea, stool testing done at [facility] Gastroenterology [place] Comment on above: 3 month follow up office visit, diarrhea , stool testing done at [facility] Start: 06-16-2024 End: 06-16-2024 Patient encounter procedure 06/16/2024 2:20 PM EST Office Visit Rheumatology [address] [place] [address] [place] [address] [place] [address] PUMA positive [R76.8]; Fatigue, unspecified type [R53.83]; Bone pain [M89.8X9]; Muscle pain [M79.10] Rheumatology Comment on above: PUAM positive [R76.8]; Fatigue, unspecifi ed type [R53.83]; Bone pain [M89.8X9]; Muscle pain [M79.10] Start: 06-16-2024 End: 09-15-2024 C reactive protein [Mass/volume] in Serum or Plasma [facility] Comment on above: Expected: 06/16/2024, Expires: Start: 06-16-2024 End: 09-15-2024 Complement C3 [Mass/volume] in Serum or Plasma [facility] Comment on above: Expected: 06/16/2024, Expires: Start: 06-16-2024 End: 09-15-2024 Complement C4 [Mass/volume] in Serum or Plasma [facility] Comment on above: Expected: 06/16/2024, Expires: Start: 06-16-2024 End: 09-15-2024 Cyclic citrullinated peptide IgG Ab [Units/volume] in Serum or Plasma [facility] Work Phone: Comment on above: Expected: 06/16/2024, Expires: Start: 06-16-2024 End: 09-15-2024 DNA double strand Ab [Units/volume] in Serum by Immunoassay [facility] Comment on above: Expected: 06/16/2024, Expires: Start: 06-16-2024 End: 09-15-2024 Erythrocyte sedimentation rate [facility] Comment on above: Expected: 06/16/2024, Expires: Start: 06-16-2024 End: 09-15-2024 Extractable nuclear Ab panel - Serum [facility] Comment on above: Expected: 06/16/2024, Expires: Start: 06-16-2024 End: 09-15-2024 Ferritin [Mass/volume] in Serum or Plasma [facility] Comment on above: Expected: 06/16/2024, Expires: Start: 06-16-2024 End: 09-15-2024 Folate [Mass/volume] in Serum or Plasma [facility] Comment on above: Expected: 06/16/2024, Expires: Start: 06-16-2024 End: 09-15-2024 HISTONE IGG FAISAL [facility] Comment on above: Expected: 06/16/2024, Expires: Start: 06-16-2024 End: 09-15-2024 IMMUNOFIXATION SCREEN, SERUM [facility] Comment on above: Expected: 06/16/2024, Expires: Start: 06-16-2024 End: 09-15-2024 Iron and Iron binding capacity panel - Serum or Plasma [facility] Comment on above: Expected: 06/16/2024, Expires: Start: 06-16-2024 End: 09-15-2024 KAPPA/HARDY,FREE,SER [facility] Comment on above: Expected: 06/16/2024, Expires: Start: 06-16-2024 End: 09-15-[address] [facility] Comment on above: Expected: 06/16/2024, Expires: Start: 06-16-2024 End: 09-15-2024 Magnesium [Mass/volume] in Serum or Plasma [facility] Comment on above: Expected: 06/16/2024, Expires: Start: 06-16-2024 End: 09-15-2024 MONOCLONAL PROT UR W/INTERP [facility] Comment on above: Expected: 06/16/2024, Expires: Start: 06-16-2024 End: 09-15-2024 PROTEIN ELECT RND UR W/INTERP PROTEIN ELECT RND UR W/INTERP Lab Routine PUMA positive Fatigue, unspecified type Bone pain Muscle pain Hypermobility arthralgia Rash of face Autonomic dysfunction Sicca syndrome (HCC) Expected: 06/16/2024, Expires: 09/15/2024 [facility] Comment on above: Expected: 06/16/2024, Expires: Start: 06-16-2024 End: 09-15-2024 PROTEIN ELECTROPHORESIS SERUM W/INTERP [facility] Comment on above: Expected: 06/16/2024, Expires: Start: 06-16-2024 End: 09-15-2024 Protein/Creatinine [Mass Ratio] in Urine [facility] Comment on above: Expected: 06/16/2024, Expires: Start: 06-16-2024 End: 09-15-2024 Rheumatoid factor [Units/volume] in Serum or Plasma [facility] Comment on above: Expected: 06/16/2024, Expires: Start: 06-16-2024 End: 09-15-2024 Urinalysis complete panel - Urine [facility] Comment on above: Expected: 06/16/2024, Expires: Start: 06-16-2024 End: 09-15-2024 Zinc [Mass/volume] in Serum or Plasma [facility] Comment on above: Expected: 06/16/2024, Expires: Start: 06-01-2024 Annual PCP Team Chronic Disease Visit Annual PCP Team Chronic Disease Visit [facility] Start: 05-28-2024 End: 05-28-2024 Patient encounter procedure 05/28/2024 11:00 AM EST Office Visit Family Medicine [facility] [address] [place] [address] Wu Herrera MD [address] [place] [address] Concussion [facility] Comment on above: Concussion Start: 05-19-2024 Chlamydia Screening (18-24) Chlamydia Screening (18-24) [facility] Start: 05-19-2024 GC (Gonorrhea) Screening (18-24) GC (Gonorrhea) Screening (18-24) [facility] Start: 05-19-2024 Screening for Chlamydia trachomatis Chlamydia Screening () [facility] Start: 05-01-2024 Annual PCP Team Chronic Disease Visit Annual PCP Team Chronic Disease Visit [facility] Start: 04-14-2024 End: 04-14-2024 Patient encounter procedure 04/14/2024 9:30 AM EDT Appointment Ambulatory Surgery [address] [place] [address] Wu Hogan MD [address] [place] [address] Ambulatory Surgery Start: 04-07-2024 End: 04-07-2024 ambulatory OB/Gynecology Comment on above: 13 weeks gestation of [Z3A.13] ; Supervision of high risk in second trimester [O09.92] Start: 03-31-2024 End: 06-30-2024 THYROID PEROXIDASE ANTIBODY THYROID PEROXIDASE ANTIBODY Lab Routine Unintended weight loss Expected: 03/31/2024, Expires: 06/30/2024 [facility] Comment on above: Expected: 03/31/2024, Expires: 4 Start: 03-31-2024 End: 06-30-2024 Thyrotropin [Units/volume] in Serum or Plasma THYROID STIMULATING HORMONE Lab Routine Unintended weight loss Expected: 03/31/2024, Expires: 06/30/2024 [facility] Comment on above: Expected: 03/31/2024, Expires: Start: 03-31-2024 End: 06-30-2024 Thyroxine (T4) free [Mass/volume] in Serum or Plasma T4 FREE/FREE THYROXINE Lab Routine Unintended weight loss Expected: 03/31/2024, Expires: 06/30/2024 [facility] Comment on above: Expected: 03/31/2024, Expires: 4 Start: 03-31-2024 End: 03-31-2025 US Pelvis PELVIC US WHI Anc Imaging Routine Postcoital and contact bleeding Expected: 03/31/2024, Expires: 03/31/2025 [facility] Work Phone: Comment on above: Expected: 03/31/2024, Expires: 5 Start: 03-24-2024 End: 06-23-2024 DHEA-S BLD DHEA-S BLD Lab Routine PCOS (polycystic ovarian syndrome) Expected: 03/24/2024, Expires: 06/23/2024 [facility] Work Phone: Comment on above: Expected: 03/24/2024, Expires: 4 Start: 03-24-2024 End: 03-24-2024 ambulatory 03/24/2024 1:00 PM EDT Results Only [facility] Draw Station [address] [place] [address] [facility] Draw Station Start: 03-23-2024 ANNUAL PCP TEAM CHRONIC DISEASE VISIT ANNUAL PCP TEAM CHRONIC DISEASE VISIT [facility] Start: 03-17-2024 End: 03-17-2024 Patient encounter procedure 03/17/2024 8:00 AM EDT Office Visit Gastroenterclaudia [place] [address] [facility] [phone] Ofelia Merritt PA-C [address] [facility] [place] [address] Upper abdominal pain [R10.10]; Elevated LFTs [R79.89]; Elevated alkaline phosphatase level [R74.8]; Weight loss [R63.4] Gastroenterology [place] Comment on above: Upper abdominal pain [R10.10]; Elevated LFTs [R79.89]; Elevated alkaline phosphatase level [R74.8]; Weight loss [R63.4] Start: 03-13-2024 COVID-19 Vaccine ( season) COVID-19 Vaccine () [facility] Start: 03-13-2024 Covid-19 Vaccine () Covid-19 Vaccine () [facility] Start: 03-13-2024 Covid-19 Vaccine () Covid-19 Vaccine () [facility] Start: 03-13-2024 Influenza vaccination Influenza Vaccine (#1) [facility] Start: 03-10-2024 End: 03-10-2024 Patient encounter procedure Nuclear Medicine Comment on above: Elevated alkaline phosphatase level [R74 .8] Start: 03-07-2024 End: 03-07-2024 Patient encounter procedure Molecular Imaging Comment on above: RUQ pain [R10.11]; Diarrhea, unspecified type [R19.7]; Weight loss, unintentional [R63.4] *CCK 1.26 mcg -RUQ p ain [R10.11]; Diarrhea, unspecified type [R19.7]; Weight loss, unintentional [R63.4] Start: 02-29-2024 End: 05-30-2024 ALK PHOS ISOENZYM BL [facility] Comment on above: Expected: 02/29/2024, Expires: Start: 02-29-2024 End: 05-30-2024 Comprehensive metabolic 2000 panel - Serum or Plasma [facility] Work Phone: Comment on above: Expected: 02/29/2024, Expires: Start: 02-29-2024 End: 05-30-2024 Creatine kinase [Enzymatic activity/volume] in Serum or Plasma [facility] Comment on above: Expected: 02/29/2024, Expires: Start: 02-29-2024 End: 05-30-2024 Thyrotropin [Units/volume] in Serum or Plasma [facility] Comment on above: Expected: 02/29/2024, Expires: Start: 02-29-2024 End: 05-30-2024 Thyroxine (T4) free [Mass/volume] in Serum or Plasma [facility] Comment on above: Expected: 02/29/2024, Expires: Start: 02-29-2024 End: 02-29-2024 Patient encounter procedure 02/29/2024 9:20 AM EDT Office Visit [facility] [address] [place] [address] Wu Herrera MD [address] [place], [place] [phone] Positive PUMA and low DHEA-S [facility] Comment on above: Positive PUMA and low DHEA-S Start: 02-23-2024 End: 02-23-2024 Patient encounter procedure 02/23/2024 1:00 PM EDT Appointment Radiology [address] [place], [place] [address] Lump in chest [R22.2]; Breast skin changes [R23.4] Radiology Comment on above: Lump in chest [R22.2]; Breast skin moreau es [R23.4] Start: 02-18-2024 End: 02-18-2024 Patient encounter procedure 02/18/2024 1:00 PM EDT Office Visit Plastic Surgery [id number] [place] [address] Cinda Mensah APRN.OIL WELL CABLE TOOL OPERATOR [address] [facility] [place] [address] CONSULT FOR BREAST REDUCTION Plastic Surgery Comment on above: CONSULT FOR BREAST REDUCTION Start: 02-15-2024 End: 05-16-2024 17-Hydroxyprogesterone [Mass/volume] in Serum or Plasma [facility] Comment on above: Expected: 02/15/2024, Expires: Start: 02-15-2024 End: 05-16-2024 Cobalamin (Vitamin B12) [Mass/volume] in Serum or Plasma [facility] Comment on above: Expected: 02/15/2024, Expires: Start: 02-15-2024 End: 05-16-2024 DHEA-S BLD [facility] Comment on above: Expected: 02/15/2024, Expires: Start: 02-15-2024 End: 05-16-2024 Follitropin [Units/volume] in Serum or Plasma [facility] Comment on above: Expected: 02/15/2024, Expires: Start: 02-15-2024 End: 05-16-2024 Lipid 1996 panel - Serum or Plasma [facility] Comment on above: Expected: 02/15/2024, Expires: Start: 02-15-2024 End: 05-16-2024 Lutropin [Units/volume] in Serum or Plasma [facility] Comment on above: Expected: 02/15/2024, Expires: Start: 02-15-2024 End: 05-16-2024 Progesterone [Mass/volume] in Serum or Plasma [facility] Comment on above: Expected: 02/15/2024, Expires: Start: 02-15-2024 End: 05-16-2024 Prolactin [Mass/volume] in Serum or Plasma [facility] Comment on above: Expected: 02/15/2024, Expires: Start: 02-15-2024 End: 05-16-2024 Testosterone [Mass/volume] in Serum or Plasma [facility] Comment on above: Expected: 02/15/2024, Expires: Start: 02-15-2024 End: 05-16-2024 Thyrotropin [Units/volume] in Serum or Plasma [facility] Work Phone: Comment on above: Expected: 02/15/2024, Expires: Start: 01-27-2024 End: 01-27-2024 Patient encounter procedure 01/27/2024 2:30 PM EDT [facility]ment [address]iology [address] [place] [address] Lump in chest [R22.2]; Breast skin changes [R23.4] Radiology Comment on above: Lump in chest [R22.2]; Breast skin moreau es [R23.4] Start: 01-22-2024 End: 01-22-2024 Patient encounter procedure 01/22/2024 9:45 AM EDT Appointment Radiology [address] [place] [address] RUQ pain [R10.11] Radiology Comment on above: RUQ pain [R10.11] Start: 01-19-2024 End: 01-19-2024 Patient encounter procedure 01/19/2024 1:00 PM EDT Office Visit OB/Gynecology [address] [place] [id number] Pari Livingston APRN.[employer] O[employer]ATOR [address] [place] [address] Nexplanon Insertion and post follow up OB/Gynecology Comment on above: Nexplanon Insertion and post foll ow up Start: 01-18-2024 End: 04-18-2024 Amylase [Enzymatic activity/volume] in Serum or Plasma [facility] Work Phone: Comment on above: Expected: 01/18/2024, Expires: Start: 01-18-2024 End: 04-18-2024 PUMA BY IFA SCREEN [facility] Comment on above: Expected: 01/18/2024, Expires: Start: 01-18-2024 End: 04-18-2024 C reactive protein [Mass/volume] in Serum or Plasma [facility] Comment on above: Expected: 01/18/2024, Expires: Start: 01-18-2024 End: 04-18-2024 Comprehensive metabolic 2000 panel - Serum or Plasma [facility] Comment on above: Expected: 01/18/2024, Expires: Start: 01-18-2024 End: 04-18-2024 Erythrocyte sedimentation rate [facility] Comment on above: Expected: 01/18/2024, Expires: Start: 01-18-2024 End: 04-18-2024 Lipase [Enzymatic activity/volume] in Serum or Plasma [facility] Comment on above: Expected: 01/18/2024, Expires: Start: 01-18-2024 End: 04-18-2024 Rheumatoid factor [Units/volume] in Serum or Plasma [facility] Comment on above: Expected: 01/18/2024, Expires: Start: 12-15-2023 End: 12-15-2023 Patient encounter procedure 12/15/2023 9:40 AM EDT Office Visit OB/Gynecology [address] [place] [address] Shruthi Estrada MD [address] [place] [address] OB/Gynecology Comment on above: Start: 12-06-2023 ANNUAL PCP TEAM CHRONIC DISEASE VISIT ANNUAL PCP TEAM CHRONIC DISEASE VISIT [facility] Start: 11-27-2023 End: 11-27-2023 Patient encounter procedure 11/27/2023 11:30 AM EDT Routine Office Visit OB/Gynecology [address] [place] [address] Shruthi Estrada MD [address] [place] [address] OB 1 WK OB/Gynecology Comment on above: OB 1 WK Start: 11-20-2023 End: 11-20-2023 Patient encounter procedure 11/20/2023 10:40 AM EDT Routine Office Visit OB/Gynecology [address] [place] [address] Shruthi Estrada MD [address] [place] [address] OB OB/Gynecology Comment on above: OB Start: 11-19-2023 End: 11-19-2023 Patient encounter procedure 11/19/2023 1:00 PM EDT Routine Office Visit Maternal Medicine [address] [place] [id number] [facility] Comment on above: Growth Start: 11-12-2023 End: 11-12-2023 Patient encounter procedure 11/12/2023 8:30 AM EDT Routine Office Visit OB/Gynecology [address] [place] [address] [facility] OB/Gynecology Comment on above: Growth Start: 10-19-2023 End: 01-18-2024 SYPHILIS TOTAL W/REFLEX [facility] Work Phone: Comment on above: Expected: 10/19/2023, Expires: Start: 09-10-2023 End: 12-10-2023 BILE ACIDS FRACT BLD [facility] Work Phone: Comment on above: Expected: 09/10/2023, Expires: Start: 08-17-2023 End: 11-16-2023 CBC W Auto Differential panel - Blood CBC + DIFF Lab Routine 23 weeks gestation of Supervision of high risk , antepartum Expected: 08/17/2023, Expires: 11/16/2023 [facility] Work Phone: Comment on above: Expected: 08/17/2023, Expires: 4 Start: 08-17-2023 End: 11-16-2023 Comprehensive metabolic 2000 panel - Serum or Plasma COMP METABOLIC PANEL Lab Routine 23 weeks gestation of Supervision of high risk , antepartum Expected: 08/17/2023, Expires: 11/16/2023 [facility] Work Phone: Comment on above: Expected: 08/17/2023, Expires: 4 Start: 08-17-2023 End: 11-16-2023 GEST GLUC SCREEN, 1-HR, 50 GM, NON-FASTING GEST GLUC SCREEN, 1-HR, 50 GM, NON-FASTING Lab Routine 23 weeks gestation of Supervision of high risk , antepartum Expected: 08/17/2023, Expires: 11/16/2023 [facility] Work Phone: Comment on above: Expected: 08/17/2023, Expires: 4 Start: 08-17-2023 End: 11-16-2023 Protein/Creatinine [Mass Ratio] in Urine [facility] Work Phone: Comment on above: Expected: 08/17/2023, Expires: 4 Start: 08-17-2023 End: 11-16-2023 SYPHILIS TOTAL W/REFLEX SYPHILIS TOTAL W/REFLEX Lab Routine 23 weeks gestation of Supervision of high risk , antepartum Expected: 08/17/2023, Expires: 11/16/2023 [facility] Work Phone: Comment on above: Expected: 08/17/2023, Expires: 4 Start: 08-17-2023 End: 11-16-2023 Urate [Mass/volume] in Serum or Plasma URIC ACID BLOOD Lab Routine 23 weeks gestation of Supervision of high risk , antepartum Expected: 08/17/2023, Expires: 11/16/2023 [facility] Work Phone: Comment on above: Expected: 08/17/2023, Expires: 4 Start: 06-12-2023 End: 09-11-2023 CARRIER SCREEN, STANDARD [facility] Work Phone: Comment on above: Expected: 06/12/2023, Expires: 4 Start: 06-12-2023 End: 09-11-2023 Chromosome 21 trisomy [Presence] in Blood or Tissue by Cytogenetics [facility] Work Phone: Comment on above: Expected: 06/12/2023, Expires: 4 Start: 06-12-2023 End: 06-12-2024 OBSTETRIC ULTRASOUND WHI OBSTETRIC ULTRASOUND WHI Anc Imaging Routine Supervision of high risk , antepartum 13 weeks gestation of Supervision of high risk in second trimester Expected: 06/12/2023, Expires: 06/12/2024 [facility] Work Phone: Comment on above: Expected: 06/12/2023, Expires: 4 Start: 05-19-2023 End: 08-18-2023 CBC panel - Blood by Automated count CBC Lab Routine care, antepartum Expected: 05/19/2023, Expires: 08/18/2023 [facility] Work Phone: Comment on above: Expected: 05/19/2023, Expires: Start: 05-19-2023 End: 08-18-2023 Hepatitis B virus surface Ag [Presence] in Serum HEP B SURF AG SCRN Lab Routine care, antepartum Expected: 05/19/2023, Expires: 08/18/2023 [facility] Work Phone: Comment on above: Expected: 05/19/2023, Expires: Start: 05-19-2023 End: 08-18-2023 Hepatitis C virus Ab [Presence] in Serum HEPATITIS C ANTIBODY IA WITH CONFIRMATION Lab Routine care, antepartum Expected: 05/19/2023, Expires: 08/18/2023 [facility] Work Phone: Comment on above: Expected: 05/19/2023, Expires: Start: 05-19-2023 End: 08-18-2023 HIV 1+2 Ab [Presence] in Serum or Plasma by Immunoassay HIV 1 2 COMBO(AG/AB),WITH REFLEX TO DIFFERENTIATION Lab Routine care, antepartum Expected: 05/19/2023, Expires: 08/18/2023 [facility] Work Phone: Comment on above: Expected: 05/19/2023, Expires: Start: 05-19-2023 End: 05-19-2024 NUCHAL TRANSLUCENCY WHI NUCHAL TRANSLUCENCY WHI Anc Imaging Routine care, antepartum Expected: 05/19/2023, Expires: 05/19/2024 [facility] Work Phone: Comment on above: Expected: 05/19/2023, Expires: Start: 05-19-2023 End: 02-06-2024 RUBELLA IGG AB RUBELLA IGG AB Lab Routine care, antepartum Expected: 05/19/2023, Expires: 08/18/2023 [facility] Work Phone: Comment on above: Expected: 05/19/2023, Expires: 4 Start: 05-19-2023 End: 08-18-2023 SYPHILIS TOTAL W/REFLEX SYPHILIS TOTAL W/REFLEX Lab Routine care, antepartum Expected: 05/19/2023, Expires: 08/18/2023 [facility] Work Phone: Comment on above: Expected: 05/19/2023, Expires: 4 Start: 05-19-2023 End: 08-18-2023 TYPE + SCREEN TYPE + SCREEN Blood Bank Routine care, antepartum Expected: 05/19/2023, Expires: 08/18/2023 [facility] Work Phone: Comment on above: Expected: 05/19/2023, Expires: 4 Start: 05-01-2023 End: 07-31-2023 BLOOD TB SCREEN [facility] Work Phone: Comment on above: Expected: 05/01/2023 (Approximate), Expi res: 07/31/2023 Start: 03-23-2023 End: 05-23-2023 CBC W Auto Differential panel - Blood [facility] Work Phone: Comment on above: Expected: 03/23/2023, Expires: 3 Start: 03-23-2023 End: 05-23-2023 Cobalamin (Vitamin B12) [Mass/volume] in Serum or Plasma [facility] Work Phone: Comment on above: Expected: 03/23/2023, Expires: 3 Start: 03-23-2023 End: 05-23-2023 Comprehensive metabolic 2000 panel - Serum or Plasma [facility] Work Phone: Comment on above: Expected: 03/23/2023, Expires: 3 Start: 03-23-2023 End: 05-23-2023 Hemoglobin A1c in Blood [facility] Work Phone: Comment on above: Expected: 03/23/2023, Expires: 3 Start: 03-23-2023 End: 05-23-2023 LIPID PANEL, NONFASTING [facility] Work Phone: Comment on above: Expected: 03/23/2023, Expires: 3 Start: 03-23-2023 End: 05-23-2023 THYROID PEROXIDASE ANTIBODY BLOOD [facility] Work Phone: Comment on above: Expected: 03/23/2023, Expires: 3 Start: 03-23-2023 End: 05-23-2023 Thyrotropin [Units/volume] in Serum or Plasma [facility] Work Phone: Comment on above: Expected: 03/23/2023, Expires: 3 Start: 03-23-2023 End: 05-23-2023 Thyroxine (T4) free [Mass/volume] in Serum or Plasma [facility] Work Phone: Comment on above: Expected: 03/23/2023, Expires: 3 Start: 03-13-2023 Covid-19 Vaccine ( season) Covid-19 Vaccine ( season) [facility] Start: 03-13-2023 Influenza vaccination [facility] Start: 02-20-2023 ANNUAL PCP TEAM CHRONIC DISEASE VISIT ANNUAL PCP TEAM CHRONIC DISEASE VISIT [facility] Start: 2022 PAP TESTING PAP TESTING [facility] Start: 2022 Screening for malignant neoplasm of cervix HPV/Cotest [facility] Start: 11-11-2022 End: 01-11-2023 Chronic hepatitis differentiation between hepatitis B and C virus panel - Serum or Plasma [facility] Work Phone: Comment on above: Expected: 11/11/2022, Expires: 3 Start: 11-11-2022 End: 01-11-2023 Hepatic function 2000 panel - Serum or Plasma [facility] Work Phone: Comment on above: Expected: 11/11/2022, Expires: 3 Start: 05-27-2022 ANNUAL PCP TEAM CHRONIC DISEASE VISIT ANNUAL PCP TEAM CHRONIC DISEASE VISIT [facility] Start: 03-13-2022 Influenza vaccination INFLUENZA (#1) [facility] Start: 02-20-2022 End: 04-22-2022 CBC W Auto Differential panel - Blood CBC + DIFF Lab Routine PCOS (polycystic ovarian syndrome) Alcohol abuse Expected: 02/20/2022, Expires: 04/22/2022 [facility] Work Phone: Comment on above: Expected: 02/20/2022, Expires: 2 Start: 02-20-2022 End: 04-22-2022 Cobalamin (Vitamin B12) [Mass/volume] in Serum or Plasma VITAMIN B12 BLOOD Lab Routine Vitamin B12 deficiency Expected: 02/20/2022, Expires: 04/22/2022 [facility] Work Phone: Comment on above: Expected: 02/20/2022, Expires: 2 Start: 02-20-2022 End: 04-22-2022 Comprehensive metabolic 2000 panel - Serum or Plasma COMP METABOLIC PANEL Lab Routine PCOS (polycystic ovarian syndrome) Insulin resistance Expected: 02/20/2022, Expires: 04/22/2022 [facility] Work Phone: Comment on above: Expected: 02/20/2022, Expires: 2 Start: 02-20-2022 End: 04-22-2022 Hemoglobin A1c in Blood HGB A1C Lab Routine PCOS (polycystic ovarian syndrome) Insulin resistance Expected: 02/20/2022, Expires: 04/22/2022 [facility] Work Phone: Comment on above: Expected: 02/20/2022, Expires: 2 Start: 02-20-2022 End: 04-22-2022 LIPID PANEL, NONFASTING LIPID PANEL, NONFASTING Lab Routine Encounter for lipid screening for cardiovascular disease Expected: 02/20/2022, Expires: 04/22/2022 [facility] Work Phone: Comment on above: Expected: 02/20/2022, Expires: 2 Start: 01-03-2022 End: 03-05-2022 Iron and Iron binding capacity panel - Serum or Plasma [facility] Work Phone: Comment on above: Expected: 01/03/2022, Expires: 2 Start: 11-22-2021 End: 11-28-2021 Ketorolac Injectable 15 mg IntraVenous Push Every 6 Hours PRN ; (TORADOL)DOSE = 15 mg IntraVenous Push Every 6 Hours, PRN Pain - Mod (4-6) Start: 22-Nov-2021 End: 27-Nov-2021 Ordered: 22-Nov-2021 Joseph Hester Intent [facility] Start: 11-21-2021 End: 11-22-2022 [facility] Start: 06-02-2021 ASTHMA ACTION PLAN ASTHMA ACTION PLAN [facility] Start: 04-10-2021 COVID-19 VACCINE (3 - Booster for Moderna series) COVID-19 VACCINE (3 - Booster for Moderna series) [facility] Start: 03-13-2021 Influenza vaccination Flu vaccine (#1) [facility] Work Phone: Start: 01-03-2021 COVID-19 VACCINE (3 - Booster for Moderna series) COVID-19 VACCINE (3 - Booster for Moderna series) [facility] Start: 01-03-2021 COVID-19 VACCINE (3 - Moderna series) COVID-19 VACCINE (3 - Moderna series) [facility] Start: 06-02-2020 ASTHMA CONTROL TEST ASTHMA CONTROL TEST [facility] Start: 12-25-2019 Anxiety Screening Anxiety Screening [facility] Start: 12-25-2019 CHLAMYDIA SCREENING () CHLAMYDIA SCREENING () [facility] Start: 12-25-2019 GC (GONORRHEA) SCREENING (18) GC (GONORRHEA) SCREENING () [facility] Start: 12-25-2019 HEPATITIS C SCREENING HEPATITIS C SCREENING [facility] Start: 12-25-2019 Hepatitis C screening Hepatitis C Screening [facility] Start: 12-25-2019 HIV SCREENING HIV SCREENING [facility] Start: 2017 Meningococcal B Vaccine (1 of 2 - Standard) Meningococcal B Vaccine (1 of 2 - Standard) [facility] Start: 2017 Meningococcal B Vaccine: Consider Based On Risk (1 of 2 - Patient Seeks Protection) Meningococcal B Vaccine: Consider Based On Risk (1 of 2 - Patient Seeks Protection) [facility] Start: 2017 MENINGOCOCCAL B: Consider based on risk (1 of 2 - Patient Seeks Protection) MENINGOCOCCAL B: Consider based on risk (1 of 2 - Patient Seeks Protection) [facility] Start: 12-25-2015 PEDS TO ADULT TRANSITION ANNUAL ASSESSMENT PEDS TO ADULT TRANSITION ANNUAL ASSESSMENT [facility] Start: 2013 COVID-19 Vaccine (1) COVID-19 Vaccine (1) [facility] Work Phone: Start: 2013 PEDS TO ADULT TRANSITION INITIAL DISCUSSION PEDS TO ADULT TRANSITION INITIAL DISCUSSION [facility] Start: 12-25-2011 MENINGOCOCCAL B: Consider based on risk (1 of 2 - Risk Bexsero 2-dose series) MENINGOCOCCAL B: Consider based on risk (1 of 2 - Risk Bexsero 2-dose series) [facility] Start: 12-25-2007 PNEUMOCOCCAL (1 - PCV) PNEUMOCOCCAL (1 - PCV) [facility] Start: 2001 HIV screening HIV Screening [facility] Start: 2001 Lipid panel Lipid Panel [facility] Start: 2001 Yearly Adult Physical Yearly Adult Physical [facility] Bacteria identified in Urine by Culture URINE CULTURE Microbiology Routine care, antepartum 05/19/2023 10:55 AM EST [facility] Work Phone: Bacteria identified in Urine by Culture URINE CULTURE Microbiology Routine 13 weeks gestation of UTI (urinary tract infection) in , antepartum Ordered: 06/12/2023 [facility] Work Phone: Comment on above: Ordered: 06/12/2023 Bacteria identified in Urine by Culture URINE CULTURE Microbiology Routine 23 weeks gestation of Dysuria Urinary frequency 08/17/2023 4:20 PM EST [facility] Work Phone: BACTERIAL VAGINOSIS NAAT BACTERI AL VAGINOSIS NAAT Lab Routine Postcoital and contact bleeding 03/31/2024 4:26 PM T [facility] BACTERIAL VAGINOSIS NAAT BACTERI AL VAGINOSIS NAAT Lab Routine Abnormal uterine bleeding 06/15/2024 2:02 PM [facility] BACTERIAL VAGINOSIS NAAT BACTERI AL VAGINOSIS NAAT Lab Routine Vaginal irritation Vulvar lesion 10/14/2024 11:15 AM [facility] End: 04-16-2024 BIOPHYSICAL PROFILE US [facility] BIOPHYSICAL PROFILE US [facility] Anc Imaging Routine 32 weeks gestation of Decreased movements in third trimester, single or unspecified fetus Once per week for 10 Occurrences starting 10/19/2023 until 04/16/2024 [facility] Work Phone: Comment on above: Once per week for 10 Occurrences startin g 10/19/2023 until 04/16/2024 Calprotectin [Mass/m ass] in Stool CALPROTECTIN,FECAL Lab Routine Diarrhea, unspecified type Ordered: 03/17/2024 [facility] Comment on above: Ordered: 03/17/2024 LUANA/TRICHOMONAS NAAT LUANA /TRICHOMONAS NAAT Lab Routine Postcoital and contact bleeding 03/31/2024 4:26 PM [facility] LUANA/TRICHOMONAS NAAT LUANA /TRICHOMONAS NAAT Lab Routine Abnormal uterine bleeding 06/15/2024 2:02 PM [facility] Work Phone: LUANA/TRICHOMONAS NAAT LUANA /TRICHOMONAS NAAT Lab Routine Vaginal irritation Vulvar lesion 10/14/2024 11:15 AM [facility] Chlamydia trachomatis+Neisseria gonorrhoeae DNA [Presence] in Unspecified specimen by YAYO with probe detection GONORRHEA/CHLAMYDIA NAAT Lab Routine care, antepartum 05/19/2023 10:54 AM [facility] Work Phone: Chlamydia trachomatis+Neisseria gonorrhoeae DNA [Presence] in Unspecified specimen by YAYO with probe detection GONORRHEA/CHLAMYDIA NAAT Lab Routine Postcoital and contact bleeding 03/31/2024 4:26 PM [facility] Chlamydia trachomatis+Neisseria gonorrhoeae DNA [Presence] in Unspecified specimen by YAYO with probe detection GONORRHEA/CHLAMYDIA NAAT Lab Routine Screen for STD (sexually transmitted disease) 06/15/2024 2:03 PM EST [facility] Clostridioides diffi cile toxin genes [Presence] in Stool by YAYO with probe detection C. DIFFICILE PCR Lab Routine Diarrhea, unspecified type Ordered: 01/18/2024 [facility] Comment on above: Ordered: 01/18/2024 Clostridioides diffi cile toxin genes [Presence] in Stool by YAYO with probe detection C. DIFFICILE PCR Lab Routine Diarrhea, unspecified type Ordered: 03/17/2024 [facility] Work Phone: Comment on above: Ordered: 03/17/2024 End: 01-15-2026 CT Abdomen and Pelvis W contrast IV CT ABD/PEL W IVCON Radiology Routine Right upper quadrant pain FUO (fever of unknown origin) Night sweats Weight loss Fatigue, unspecified type 1 Occurrences starting 12/16/2024 until 01/15/2026 [facility] Work Phone: Comment on above: 1 Occurrences starting 12/16/2024 until 01/15/2026 CT Abdomen and Pelvi s W contrast IV CT ABD/PEL W IVCON Radiology Routine Right upper quadrant pain FUO (fever of unknown origin) Night sweats Weight loss Fatigue, unspecified type 12/27/2024 3:46 PM EDT [facility] Work Phone: End: 01-15-2026 CT Chest WO contrast CT CHEST WO IVCON Radiology Routine FUO (fever of unknown origin) Night sweats Weight loss Fatigue, unspecified type 1 Occurrences starting 12/16/2024 until 01/15/2026 [facility] Comment on above: 1 Occurrences starting 12/16/2024 until 01/15/2026 CT Chest WO contrast CT CHEST WO IVCON Radiology Routine FUO (fever of unknown origin) Night sweats Weight loss Fatigue, unspecified type 12/27/2024 3:46 PM EDT [facility] ENTERIC BACTERIAL PA KATHIE BY PCR ENTERIC BACTERIAL PANEL BY PCR Lab Routine Diarrhea, unspecified type Ordered: 01/18/2024 [facility] Comment on above: Ordered: 01/18/2024 FAT, FECAL QUAL FAT, FECAL QUAL Lab Routine Diarrhea, unspecified type Ordered: 01/18/2024 [facility] Comment on above: Ordered: 01/18/2024 FECAL LACTOFERRIN/LEUKOCYTES FECAL LACTOFERRIN/LEUKOCYTES Lab Routine Diarrhea, unspecified type Ordered: 01/18/2024 [facility] Comment on above: Ordered: 01/18/2024 Gastrointestinal pathogens panel - Stool by YAYO with probe detection EXPANDED STOOL GASTROINTESTINAL PANEL BY PCR Lab Routine Diarrhea, unspecified type Ordered: 03/17/2024 [facility] Comment on above: Ordered: 03/17/2024 Giardia lamblia+Cryptosporidium sp Ag [Presence] in Stool by Immunoassay CRYPTOSPORIDIUM AND GIARDIA ANTIGENS BY EIA Microbiology Routine Diarrhea, unspecified type Ordered: 01/18/2024 [facility] Comment on above: Ordered: 01/18/2024 Helicobacter pylori Ag [Presence] in Stool by Immunoassay HELICOBACTER PYLORI ANTIGEN BY EIA, STOOL Microbiology Routine Diarrhea, unspecified type Ordered: 03/17/2024 [facility] Comment on above: Ordered: 03/17/2024 Hemoglobin.gastroint dylan nal.lower [Presence] in Stool by Immunoassay FECAL OCCULT BLOOD TEST Lab Routine Chronic constipation Abdominal pain, LLQ Abdominal bloating Nausea and vomiting, unspecified vomiting type Heartburn Weight loss Change in bowel habits Ordered: 11/07/2022 [facility] Work Phone: Comment on above: Ordered: 11/07/2022 Hemoglobin.gastroint dylan nal.lower [Presence] in Stool by Immunoassay IMMUNOCHEMICAL FECAL OCCULT BLOOD TEST Lab Routine Hematochezia Ordered: 01/19/2024 [facility] Work Phone: Comment on above: Ordered: 01/19/2024 METANEPHRINES 24H UR METANEPHRIN ES 24H UR Lab Routine FUO (fever of unknown origin) Night sweats Weight loss Fatigue, unspecified type Ordered: 12/16/2024 [facility] Comment on above: Ordered: 12/16/2024 End: 07-30-2025 MR Brain WO contrast MRI BRAIN WO IVCON Radiology Routine Traumatic injury of head, initial encounter Concussion with loss of consciousness, initial encounter 1 Occurrences starting 06/29/2024 until 07/30/2025 [facility] Work Phone: Comment on above: 1 Occurrences starting 06/29/2024 until 07/30/2025 NEXPLANON INSERTION NEXPLANON IN SERTION Procedures Routine Encounter for initial prescription of implantable subdermal contraceptive Ordered: 12/22/2023 [facility] Work Phone: Comment on above: Ordered: 12/22/2023 NEXPLANON INSERTION NEXPLANON IN SERTION Procedures Routine Insertion of implantable subdermal contraceptive Ordered: 01/19/2024 [facility] Work Phone: Comment on above: Ordered: 01/19/2024 NEXPLANON REMOVAL NEXPLANON GANESH MERT Procedures Routine Nexplanon removal Ordered: 02/24/2023 [facility] Work Phone: Comment on above: Ordered: 02/24/2023 NEXPLANON REMOVAL NEXPLANON GANESH MERT Procedures Routine Nexplanon removal Ordered: 04/11/2024 [facility] Work Phone: Comment on above: Ordered: 04/11/2024 End: 03-30-2025 NM Biliary ducts and Gallbladder Views for patency of biliary structures and ejection fraction W sincalide and W radionuclide IV NM HEPATOBILIARY W EF AND/OR RX Radiology Routine RUQ pain Diarrhea, unspecified type Weight loss, unintentional 1 Occurrences starting 02/29/2024 until 03/30/2025 [facility] [facility] Comment on above: 1 Occurrences starting 02/29/2024 until 03/30/2025 End: 07-23-2025 NM Stomach Views for gastric emptying solid phase W radionuclide PO NM GASTRIC EMPTYING SOLID Radiology Routine RUQ pain Early satiety Nausea 1 Occurrences starting 06/23/2024 until 07/23/2025 [facility] Work Phone: Comment on above: 1 Occurrences starting 06/23/2024 until 07/23/2025 End: 02-13-2024 OBSTETRIC ULTRASOUND WHI OBSTETRIC ULTRASOUND WHI Anc Imaging Routine 23 weeks gestation of Sinus tachycardia Once per month for 5 Occurrences starting 08/17/2023 until 02/13/2024 [facility] Work Phone: Comment on above: Once per month for 5 Occurrences startin g 08/17/2023 until 02/13/2024 End: 05-30-2024 OBSTETRIC ULTRASOUND WHI OBSTETRIC ULTRASOUND WHI Anc Imaging Routine 38 weeks gestation of High-risk in third trimester Once per month for 5 Occurrences starting 12/02/2023 until 05/30/2024 [facility] Work Phone: Comment on above: Once per month for 5 Occurrences startin g 12/02/2023 until 05/30/2024 Ova and parasites identified in Unspecified specimen by Light microscopy OVA + PARA MICROSCOPIC Microbiology Routine Worms in stool Ordered: 01/08/2024 [facility] Work Phone: Comment on above: Ordered: 01/08/2024 PANC ELASTASE, FECAL PANC ELASTA SE, FECAL Lab Routine Diarrhea, unspecified type Ordered: 03/17/2024 [facility] Comment on above: Ordered: 03/17/2024 PAP TEST PAP TEST Lab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 Images from the original note were not included. Episode Visit Count: 1 Therapist That Will Accept/Oversee The Plan Of Care: Richard Salazar Start of Care Date: 08/08/24 Onset Date: 07/13/24 Plan of Care Certification Date: 08/08/24 Next Certification Due Date: 10/06/24 Patient Identified by Name and Date of : Yes REHABILITATION AND SPORTS THERAPY PHYSICAL THERAPY EVALUATION PLAN OF CARE: Assessment: Dory Andrews presents with diagnosis of hypermobility that interferes with rising from a chair, bending, heavy exertion, lifting, physical activities, sleeping . The patient presents with impairments in ADL's, overall function, patient reported outcome measures, range of motion, strength, and symptom management. PROMIS (Patient-Reported Outcomes Measurement Information System) scores were reviewed and identified as a rehabilitation concern. Prognosis for therapy is Fair due to: clinical presentation, multiple co- morbidities, chronic nature of impairments, limited tolerance to activity, occupational demands . The patient will benefit from skilled therapy services to meet the goals established for this plan of care as noted below. Classification Pain Mechanism Classification: Neuropathic Low Back Pain Classification: Movement Control Goals for Episode of Care: established 08/08/24 Independent in home exercises. Patient will decrease pain rating by 2 points to meet minimal clinical important difference for numeric pain rating scale. 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 Sleep through night without pain/symptoms. Maintain proper sitting posture throughout session Patient will increase strength of trunk/core to 4+/5 to allow for improve ability to complete ADLs. Time Frame for Goals and Treatment : 10/06/24 Planned Interventions, Frequency, and Duration: Current Frequency: 1x/week Duration: 8 weeks Total Number of Visits Planned: 8 Planned Treatment Interventions: Therapeutic exercise (43018), Neuromuscular re-education (92276), Manual therapy (58676), Therapeutic activities (78670), Self-mcc management (24542), Patient/Family/Caregiver Education, Body Mechanics Training PLAN FOR NEXT VISIT: Continue core strengthening, may work on body mechanics Patient demonstrates good understanding of plan of care and treatment. The above goals and plan of care were discussed and agreed upon by patient/family. SUBJECTIVE: LBP L>R with sciatic symptoms down the L leg that has taken her to the ER a few times. Repeated bending and lifting seems to flair her up consistently. position on her left side usually feels better but does not usually completely resolve symptoms. Diagnosed with Functional Limitations: rising from a chair, bending, heavy exertion, lifting, physical activities, sleeping Prior Level of Function: Independent without limitations Intake Information: Prescription present Red Flags Vertebral Fracture Red Flags: Female Vertebral Fracture Clinical Reasoning: No identified risk factors Abdominal Aortic Aneurysm Clinical Reasoning: No identified risk factors. Cancer Clinical Reasoning: No identified risk factors. Infection Clinical Reasoning: No identified risk factors. Cauda Equina Syndrome Clinical Reasoning: No identified risk factors. Red Flags - Cervical Cancer Clinical Reasoning: No identified risk factors. Infection Clinical Reasoning: No identified risk factors. Pain: Pain Pain Level: 2 (10/10 at worst) Pain Location: Low Back/Lumbar Spine - Left Description: Sore, Aching Frequency: Intermittent PROMIS Scales 07/25/2024 07/20/2024 06/09/2024 Higher is Better Phys Func - T Score 38 (moderate dysfunction) 41 (mild dysfunction) Phys Func - Percentile 12 18 Self-Eff Symptom - T Score 39 (Low) Self-Eff Symptom - Percentile 14 07/20/2024 06/09/2024 Lower is Better Pain Interference - T Score 64 (moderate) 59 (mild) Pain Interference - Percentile 8 18 T-scores: mean of general population = 50. 5 points is clinically meaningfully difference Percentiles provide an indication of how the patient's score ranks in relation to the general population. Higher percentile rankings indicate better function/quality of life. 50th percentile is the average of the general population and indicates half of respondents had a worse score. OBJECTIVE MEASURES WITH LEVEL OF FUNCTION: Lumbar Spine AROM Lumbar Flexion: Normal Lumbar Extension: Moderate limitation Lumbar R Side Clayton: End range pain, Moderate limitation Lumbar L Side Clayton: Normal Lumbar R Side-Bend: Normal Lumbar L Side-Bend: Normal Lumbar R Rotation: Normal Lumbar L Rotation: Normal LE Strength Trunk Strength: 3+/5 R LE Strength: 4/5 grossly L LE Strength: 4/5 grossly Special Tests - Hip and Spine Hip and Spine Special Tests: SLR Test SLR Test: Right Positive, Left Positive Education: Education Learning/educational needs: Home exercise program, Plan of Care, Posture, Lifestyle changes, Body Mechanics TREATMENT: PT Treatment Interventions: Therapeutic Exercise, Self-Long Term Management Evaluation Therapeutic Exercise: 1: *Clamshells 3x10/side 2: *SL hip abduction 3x10/side 3: *Hooklying TA bracing 3x10 4: *Hooklying TA bracing plus alt marching 3x10/side Skilled Intervention: Patient was educated in proper exercise technique and purpose for exercises. Skilled judgment was used in selection of appropriate interventions. Provided written instruction for home exercise program to facilitate proper performance and compliance. Correct performance of therapeutic exercises was facilitated with verbal, visual, and tactile cuing. Self-Long Term Management: 1: Discussed active vs passive restraint in body and how this will generaly affect laxity Skilled Intervention: Skilled judgment in the selection of proper modification for activity of daily living/home management based on clinical presentation, deficits, and needs. Reviewed patient specific diagnosis in relation to activities of daily living/home management. Activity progression based on professional judgement. Billing * Evaluation Low Complexity: 1 Unit Therapeutic Exercise Treatment Minutes: 10 Self-Care/Home Management Treatment Minutes: 5 Skilled Treatment Time Minutes (timed and untimed codes): 37 Total Session Time (minutes): 37 Session Start Time : 1133 Session Stop Time : 1210 Richard Salazar PT Program_ID:[id number] Access Code: [email or web address] URL: [email or web address] Date: 08-08-2024 Prepared By: Richard Salazar Program Notes Exercises - Clamshell - 1 x daily - 7 x weekly - 3 sets - 10 reps - Sidelying Hip Abduction - 1 x daily - 7 x weekly - 3 sets - 10 reps - Supine Transversus Abdominis Bracing - Hands on Stomach - 1 x daily - 7 x weekly - 3 sets - 10 reps - Beginner Knee Fold - 1 x daily - 7 x weekly - 3 sets - 10 reps documented in this encounter [facility] 08-02-2024 History of Present illness Narrative Program_ID:[id number] Access Code: [email or web address] URL: [email or web address] Date: 08-02-2024 Prepared By: Daisy Chadwick Program Notes Exercises - Supine Cervical Retraction with Towel - 2-3 x daily - 7 x weekly - 4 sets - 10 reps - Supine Deep Neck Flexor Training - Repetitions - 2 x daily - 7 x weekly - 2 sets - 5 reps - Seated Scapular Retraction - 1 x daily - 7 x weekly - 2 sets - 15 reps Images from the original note were not included. Episode Visit Count: 2 Therapist That Will Accept/Oversee The Plan Of Care: Daisy Chadwick Start of Care Date: 07/26/24 Onset Date: 05/25/24 Plan of Care Certification Date: 07/26/24 Next Certification Due Date: 08/30/24 REHABILITATION AND SPORTS THERAPY PHYSICAL THERAPY DISCONTINUANCE OF CARE PLAN OF CARE UPDATE: Assessment: Dory Andrews is discontinued from Physical Therapy services due to maximal benefit.. Patient was seen for 2 visits from Start of Care Date: 07/26/24 to 08/02/2024 and treatment included: Therapeutic exercise, Neuromuscular re-education, Self-mcc management, and Gait training. Goals for Episode of Care: established 07/26/24 Goals updated on 08/02/2024. Patient will be independent with home exercise program and progression. -- MET Patient will return to prior level of function with all activities of daily living with trace reports of dizziness. -- MET, with the exception of positional changes that pt. Relates to her typical chronic POTS hx. Patient will be able to walk household and community distances with safe, functional gait pattern with trace report of dizziness/imbalance. -- PROGRESSING Patient will demonstrate the ability to complete VOR in static and dynamic positions with trace report of dizziness. -- MET, denies dizziness but reports neck pain Patient Goals: improve balance and coordination with driving -- Pt. Reports feeling poor coordination with driving however demonstrates normal coordination with alternating her forearms pronation/supination BUE SUBJECTIVE: Pt. reports that they will prescribe her possibly gabapentin for the B hand pain. Pt. has a headache today and attributes this to getting migraines after she gave (December 2023 prior to concussion). Denies any concussion specific symptoms today that are new since concussion onset. She has headaches a couple times a week. Pt. denies dizziness with the exception of the positional related dizziness with her hx of POTs. Pt. tried the VOR exercises-- which only made her neck feel worse. Denies dizziness with driving and reports no dizziness with VOR exercises, or any other activity. The pain in her hands limit her driving the most.. Patient Goals: improve balance and coordination with driving Pain: Pain Pain Level: 6 Pain Location: Hand - Left, Hand - Right Description: Stiffness Additional Pain Information : Location 2 Pain Level 2: 5 Pain Location 2: Eye - Left Post Treatment Pain Post Treatment Pain Level: 0 PROMIS Scales 07/25/2024 07/20/2024 06/09/2024 Higher is Better Phys Func - T Score 38 (moderate dysfunction) 41 (mild dysfunction) Phys Func - Percentile 12 18 Self-Eff Symptom - T Score 39 (Low) Self-Eff Symptom - Percentile 14 07/20/2024 06/09/2024 Lower is Better Pain Interference - T Score 64 (moderate) 59 (mild) Pain Interference - Percentile 8 18 T-scores: mean of general population = 50. 5 points is clinically meaningfully difference Percentiles provide an indication of how the patient's score ranks in relation to the general population. Higher percentile rankings indicate better function/quality of life. 50th percentile is the average of the general population and indicates half of respondents had a worse score. OBJECTIVE MEASURES WITH LEVEL OF FUNCTION: TREATMENT: Therapeutic Exercise: 1: cervical spine retraction, supine 4x10 2: cervical deep neck flexor hold 2 sets 5x5 sec hold - denies hand or headache pain following 3: *Access Code: [email or web address] URL: [email or web address] Date: 08/02/2024 Prepared by: Daisy Cruz Exercises - Supine Cervical Retraction with Towel - 2-3 x daily - 7 x weekly - 4 sets - 10 reps - Supine Deep Neck Flexor Training - Repetitions - 2 x daily - 7 x weekly - 2 sets - 5 reps - 5 hold - Seated Scapular Retraction - 1 x daily - 7 x weekly - 2 sets - 15 reps Skilled Intervention: Patient was educated in proper exercise technique and purpose for exercises. Skilled judgment was used in selection of appropriate interventions. Provided written instruction for home exercise program to facilitate proper performance and compliance. Correct performance of therapeutic exercises was facilitated with verbal, visual, and tactile cuing. Educated patient on rationale for performing exercises in regards to decreasing fatigue , increase ease of ADL, and ROM and function . Neuromuscular Re-Education: 1: romberg on foam 30 sec EO 2: romberg on foam, EC - no LOB minimal to no sway 3: SLS on firm surface no UE support 30 sec each LE 4: seated alternating forearm pronation/supination 10x - normal coordination demonstrated, denies increased hand discomfort with this. Skilled Intervention: Skilled judgment used to assess appropriate program for balance and coordination activity. Education in proprioceptive/kinesthetic awareness during dynamic activities. Reviewed and educated patient on additions/changes for home program as noted above with an (*). Patient education as noted. Gait Training: Distance (feet): 50' 4x Gait Cues: heel strike - able to correct and amb in a straight 24 width path Assistive Device: none Assist Level: independent Skilled Intervention: Patient was provided supervision during pre-gait/gait training to prevent falls and insure safety. Self-Long Term Management: 1: discussed cervical spine pain referral patterns 2: discussed purpose of cervical retraction exercises 3: discussed that VOR adaptation exercises will be dc due to increased head pain 4: discussed that PT for concussion symptoms will be dc and pt. concern with her hands and her neck will be addressed with the new PT order.Pt. to inform PT if symptoms in the hands seem to improve with cervical retraction and scapular strengthening. Skilled Intervention: Skilled judgment in the selection of proper modification for activity of daily living/home management based on clinical presentation, deficits, and needs. Provided written instruction for activities of daily living techniques to facilitate proper performance and compliance. Reviewed patient specific diagnosis in relation to activities of daily living/home management. Activity progression based on professional judgement. Moderate verbal cues for maintaining neutral spine alignment. Provided written instruction for home program to facilitate proper performance and compliance. Correct performance of home program was facilitated with verbal, visual, and tactile cueing. Billing Therapeutic Exercise Treatment Minutes: 15 Neuromuscular Re-Education Treatment Minutes: 5 Self-Care/Home Management Treatment Minutes: 15 Gait Training Treatment Minutes: 5 Total Session Time (minutes): 40 Session Start Time : 1325 Session Stop Time : 1405 Daisy Chadwick PT documented in this encounter [facility] 08-02-[address] [facility] 07-27-2024 History of Present illness Narrative Images from the original note were not included. Rheumatology FOLLOW UP VISIT Date of Service: 07/27/2024 Patient: Dory Andrews Medical Record: [id number] Primary Care Physician: Wu Herrera MD Last Rheumatology visit: 06/16/2024 (with Shruthi Haney) Chief Complaint: No chief complaint on file. This is a virtual visit using [employer] Zoom Video Visit. It required patient-provider interaction for the medical decision making as documented below. Patient consented to this form of visit. I have communicated my name and active licensure. The patient's identity and physical location were verified at the time of this visit. Either the patient or their legal premium representative has been informed of the risks and benefits of -- and alternatives to -- treatment through a remote evaluation and consents to proceed with the evaluation remotely. INTERVAL HISTORY History of Present Illness The patient is a 23-year-old woman with a history of anxiety, depression, previous suicide ideation, PCOS, sinus tachycardia, smoking, and previous alcohol abuse. She presents to the rheumatology clinic for a virtual follow-up of her initial evaluation of a positive PUMA with multiple symptoms. She was last evaluated in 06/2024, at which time the plan included obtaining labs for lupus, Sjogren's, and rheumatoid arthritis, along with x-rays of the hands. She was also advised to follow up with GI to evaluate for possible gastroparesis and with cardiology for POTS in the setting of hypermobility spectrum disorder. Since that time, she was seen in the ED twice and followed up with her PCP for a rash and multiple issues including chronic fatigue. She has participated in physical therapy at least once. She reports no cough, chest pain, blood in urine or stool, or new rashes. She has initiated physical therapy and is scheduled to start vestibular therapy for her concussion. Dr. Herrera has suggested a potential diagnosis of hypermobile Israel-Danlos syndrome, a topic he recommended for discussion during this visit. She occasionally experiences her right shoulder dislocating during sleep, which she can reposition without significant effort. She has sought emergency care on several occasions due to severe back pain, described as feeling like her tailbone was splitting. This pain was so intense that it brought her to tears. She was administered two injections, one of which was a steroid and the other Toradol, and was prescribed a muscle relaxer. She was advised to consider physical therapy for similar future episodes. She is contemplating seeking help from a [facility] [place] and is exploring therapeutic exercises and pain management strategies for hypermobility. She is currently on nortriptyline, prescribed by her neurologist to aid sleep, but reports no significant improvement. RHEUMATOLOGIC HISTORY Dory is both RF - 9 (06/16/2024) and CCP - 13.5 (06/16/2024) negative. Her most recent PUMA was positive (01/18/2024). Pain Evaluation 06/16/2024 06/22/2024 06/22/2024 07/19/2024 07/26/2024 Pain Evaluation Pain Score 4 8 6 5 0 Location Hand-Left Back-Lower Forehead Leg-Left Location Comment both legs right/left Description Pressure;Shooting Dull Aching Stiffness Duration (#) 7 5 4 7 Duration (Timeframe) Months Days Weeks Months Frequency Continuous Continuous Intermittent Continuous Intervention Medication Medication;Relaxation;Distraction s PATIENT-ENTERED DATA PROMIS Assessments 05/27/2024 06/09/2024 07/20/2024 PROMIS Assessments Physical Health Percentile 10 Mental Health Percentile 5 Pain Score 2 Pain Interference Percentile 18 8 Fatigue Percentile 8 1 Physical Function Percentile 18 12 RAPID 3 Church Activities of Daily Living 07/20/2024 1:27 PM 06/09/2024 1:54 PM Dress self? With SOME difficulty Without ANY difficulty Get in and out of bed? With SOME difficulty With SOME difficulty Walk outdoors? With SOME difficulty With SOME difficulty Wash and dry body? Without ANY difficulty With SOME difficulty Get in and out of car? With SOME difficulty With SOME difficulty RAPID 3 Disease Activity Weighed Score Levels: 0 - 1: Near Remission 1.3 - 2.0: Low Severity 2.3 - 4.0: Moderate Severity 4.3 - 10.0: High Severity 06/09/2024 07/20/2024 RAPID-3 Weighed Score RAPID 3 Weighed Score 6.06 (High severity ) 6.22 (High severity ) 07/20/2024 RAPID-3 Weighed Score Percentage Change Compared to Last Score 2.64 Review of Systems CONSTITUTION: Negative for: Fever and Recent weight change HEENT: Positive for: Dry mouth Negative for: Nosebleeds, Mouth sores and Trouble swallowing RESPIRATORY: Positive for: Shortness of breath Negative for: Cough and Pain with breathing GASTROINTESTINAL: Positive for: Diarrhea, Heartburn and Abdominal pain Negative for: Melena MUSCULOSKELETAL: Positive for: Arthralgias, Myalgias, Muscle weakness and Morning Joint Stiffness Negative for: Joint swelling NEUROLOGICAL: Positive for: Headaches and Numbness Negative for: Memory loss SKIN: Positive for: Nail changes Negative for: Rash, Skin changes and Hair loss EYES: Negative for: Eye pain, Eye redness, Eye dryness and visual disturbance CARDIOVASCULAR: Negative for: Chest pain and Leg swelling GENITOURINARY: Negative for: Dysuria and Hematuria HEMATOLOGIC/LYMPHATIC: Negative for: Swollen glands REVIEW OF SYSTEMS Complete ROS (HEENT, respiratory, cardiology, GI, , skin, psych, hematology, endocrine, neuro, musculoskeletal) negative except as noted in HPI. HISTORIES Past medical, surgical, family, and social history reviewed and notable changes since last visit include: Noted in HPI MEDICATIONS Current Outpatient Medications Medication Sig LORazepam (ATIVAN) 0.5 mg Take 0.5 mg by mouth at bedtime as needed. prazosin (MINIPRESS) 1 mg cap Take 1 mg by mouth daily at bedtime. nortriptyline (PAMELOR) 10 mg capsule Take 1 capsule by mouth daily at bedtime for 7 days, THEN 2 capsules daily at bedtime. (Patient not taking: Reported on 07/19/2024) polyethylene glycol 3350 (MIRALAX) 17 gram/dose powder Take 17 g by mouth once daily. Dissolve dose in 4 - 8 ounces of liquid and take as directed. pantoprazole DR (PROTONIX) 40 mg tablet take 1 tablet by mouth once daily AT LEAST 30 MINUTES BEFORE EATING hyoscyamine sublingual (LEVSIN/SL) 0.125 mg Dissolve 1 tablet under the tongue every 4 hours as needed (for abdominal pain). ondansetron orally disintegrating (ZOFRAN ODT) 4 mg disintegrating tablet dissolve 1 tablet ON TONGUE every 8 hours if needed for nausea OR vomiting metFORMIN (GLUCOPHAGE) 500 mg tablet Take 1 tablet by mouth daily with dinner. (Patient not taking: Reported on 07/19/2024) etonogestrel (NEXPLANON) subdermal implant 68 mg 1 Each by SUBDERMAL route as directed. aluminum & magnesium hydroxide-simethicone (MYLANTA MAXIMUM STRENGTH) 400-400-40 mg/5 mL suspension Take 30 mL by mouth every 6 hours as needed. diphenhydrAMINE (BENADRYL) 25 mg capsule Take 1 capsule by mouth every 6 hours as needed. For itching and insomnia. (Patient not taking: Reported on 07/19/2024) Blood Pressure Monitor (BLOOD PRESSURE KIT) 1 Each once daily. ALLERGIES ALLERGIES Allergen Reactions Green Dye Hives Contact Metal Agent Other: See Comments Cysts from earrings. PHYSICAL EXAM Patient appears well over the video, no facial rashes, no overt gross neurologic deficits, speech is confluent, speaks well without shortness of breath. LABS Reviewed in [facility], notable for: (06/16/2024): - Normal AMADEO, RF, CCP, C3, C4, SPEP, UPEP, DS, DNA, histone, iron, ferritin, TIBC, magnesium, zinc, ESR, CRP, CBC, CMP, lupus anticoagulant, anticardiolipin antibodies, beta-glycoprotein antibodies, UA, UPEP, UPC Latest Ref Rng & Units 12/15/2023 01/18/2024 02/29/2024 06/16/2024 CBC WBC 3.70 - 11.00 k/uL 9.38 7.20 8.74 8.37 Hemoglobin 11.5 - 15.5 g/dL 12.9 15.2 13.9 14.4 Hematocrit 36.0 - 46.0 % 38.8 46.5 42.2 42.9 Platelet Count 150 - 400 k/uL 240 248 278 269 Abs Neut (ANC) 1.45 - 7.50 k/uL 4.28 5.48 5.38 Abs Lymph 1.00 - 4.00 k/uL 2.19 2.48 2.32 Latest Ref Rng & Units 12/15/2023 01/18/2024 02/15/2024 02/29/2024 CMP Sodium 136 - 144 mmol/L 141 141 141 Potassium 3.7 - 5.1 mmol/L 4.0 4.5 3.8 Chloride 98 - 107 mmol/L 109 103 105 CO2 22 - 30 mmol/L 20 20 23 Glucose 74 - 99 mg/dL 83 80 83 BUN 7 - 21 mg/dL 8 9 12 Creatinine 0.58 - 0.96 mg/dL 0.61 0.70 0.66 0.88 Calcium 8.5 - 10.2 mg/dL 9.0 10.3 9.7 AST 13 - 35 U/L 37 32 37 ALT 7 - 38 U/L 33 28 82 Alkaline Phosphatase 34 - 123 U/L 34 - 123 U/L 222 125 92 92 Latest Ref Rng & Units 08/28/2023 Uric Acid Uric Acid 2.5 - 6.6 mg/dL 3.8 Latest Ref Rng & Units 12/05/2022 01/18/2024 06/16/2024 ESR, WSR WSR 0 - 20 mm/hr 2 5 2 Latest Ref Rng & Units 11/07/2022 12/05/2022 01/18/2024 06/16/2024 CRP CRP <0.9 mg/dL <0.3 <0.3 <0.3 <0.3 Latest Ref Rng & Units 06/16/2024 C3, C4 C3 86 - 166 mg/dL 153 C4 13 - 46 mg/dL 19 Latest Ref Rng & Units 12/05/2022 02/29/2024 CK CK 42 - 196 U/L 56 73 Latest Ref Rng & Units 12/05/2022 01/18/2024 06/16/2024 RF and CCP Rheumatoid Factor <16 IU/mL <10 <10 <10 CCP Antibody IgG Qualitative Negative Negative CCP Antibody, IgG <20 Units <15 Latest Ref Rng & Units 11/11/2022 06/02/2023 03/03/2024 Hepatitis Screen Hep A Ab, IgM Negative Negative Hep B Core Ab, IgM Negative Negative Hep B Core Ab, Total Negative Negative Hep B Surf Ab Qual Positive Positive Hep C Antibody IA Negative Negative Negative Hep B Surface Ag Negative Negative Negative Negative Latest Ref Rng & Units 08/30/2020 05/01/2023 TB Screen TB Interpretation Infection with M. tuberculosis complex is unlikely. If latent tuberculosis infection is highly suspected, a negative result does not rule out the infection. Specimens from immunocompromised patients and those <5 years of age may show false negative results. In case of a contact investigation, please repeat 8-12 weeks after a known exposure. TB Result Negative TB INTRADERMAL TEST 0 x 0 - 10 x 10 mm 0 x 0mm Latest Ref Rng & Units 05/27/2021 12/05/2022 01/18/2024 06/16/2024 Antibodies PUMA Negative Negative Positive PUMA Titer 1:160 PUMA Pattern Nuclear homogeneous DNA Antibody <=200 IU/mL 17 Anti-Sm <1.0 AI <0.2 Sm Antibody Negative Negative Ribosomal DIGITAL MEDIA STRATEGIST Ab <1.0 AI <0.2 Ribosomal DIGITAL MEDIA STRATEGIST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 diarrhea, nausea, emesis, worsening abdominal pain, dehydration occurs I spent a total of 20 minutes on the date of the service which included preparing to see the patient, [id number] patient care, completing clinical documentation, obtaining and/or reviewing separately obtained history, performing a medically appropriate examination, counseling and educating the patient/family/caregiver, ordering medications, tests, or procedures, communicating with other HCPs (not separately reported), independently interpreting results (not separately reported), communicating results to the patient/family/caregiver, and care coordination (not separately reported). Ofelia Merritt PA-C March 17, 2024 8:17 AM documented in this encounter [facility] 03-16-[address] [facility] 03-16-2024 History of Present illness Narrative This is a virtual encounter. It required patient-provider interaction for the medical decision making as documented below. The patient is identified by name and birthday. Patient location: [place] The patient consented to this type of encounter since it was performed by phone / virtually due to the COVID-19 epidemic as an effort to protect patients and minimize exposure. I have communicated my name and active licensure. The patient's identity and physical location were verified at the time of this visit. Either the patient or their legal premium representative has been informed of the risks and benefits of -- and alternatives to -- treatment through a remote evaluation and consents to proceed with the evaluation remotely. Chief Complaint Patient presents with: f/u x-rays/bone scan HPI Dory Andrews is a 23 year old female who presents here today for above concern. Patient has been having some epigastric pain and weight loss. She had LFT's that showed elevated Alk phos of 222 in December and in January was almost back to normal at 125. Her RUQ US in the ER in late January early Feb was unremarkable. She was then set up for a HIDA scan that came back normal. Alk Phos isoenzymes showed slight increase in her Bone percentage at 56.7% and high end of normal was 52.6%. x-rays of her Tib/Fib's lazaro were within normal limits. A Bone scan came back normal and radiology advised that with an elevated Alk phose to check skull films to r/o Lisa's disease and theses came back normal. (Results below) Past medical history, appointments, medications, allergies reviewed. No changes. ROS: Pertinent positives/ negatives: patient still getting upper abdominal pain, having loose stools and weight loss. PHYSICAL EXAMINATION LMP 01/13/2024 General: Alert and oriented, no distress, pleasant and cooperative. Lungs: talking in full complete sentences without audible wheeze or distress. Data reviewed Latest Ref Rng 12/15/2023 01/18/2024 02/29/2024 03/03/2024 Protein, Total 6.3 - 8.0 g/dL 7.0 7.6 7.1 Albumin 3.9 - 4.9 g/dL 3.8 (L) 5.0 (H) 4.7 Calcium 8.5 - 10.2 mg/dL 9.0 10.3 (H) 9.7 Bilirubin, Total 0.2 - 1.3 mg/dL 0.3 0.4 0.4 Alkaline Phosphatase 34 - 123 U/L 222 (H) 125 (H) 92 Alkaline Phosphatase 34 - 123 U/L 92 AST 13 - 35 U/L 37 (H) 32 37 (H) ALT 7 - 38 U/L 33 28 82 (H) Glucose 74 - 99 mg/dL 83 80 83 BUN 7 - 21 mg/dL 8 9 12 Creatinine 0.58 - 0.96 mg/dL 0.61 0.70 0.88 Sodium 136 - 144 mmol/L 141 141 141 Potassium 3.7 - 5.1 mmol/L 4.0 4.5 3.8 Chloride 98 - 107 mmol/L 109 (H) 103 105 CO2 22 - 30 mmol/L 20 (L) 20 (L) 23 Anion Gap 8 - 15 mmol/L 12 18 (H) 13 eGFR >=60 mL/min/1.73m 131 126 95 Alk Phos Bone % 10.7 - 68.3 % 61.6 Bone Fraction 12.9 - 52.6 U/L 56.7 (H) Alk Phos Liver % 26.0 - 86.2 % 38.4 Liver Fraction 16.0 - 69.3 U/L 35.3 Alk Phos Intestine % 0.0 - 24.2 % 0.0 Intestine Fraction 0.0 - 16.3 U/L 0.0 Mitochondrial Ab Screen Negative Negative Mitochondrial M2 IgG Quantitative <=20.0 Units 2.9 TSH 0.270 - 4.200 mIU/L 0.656 GGT 6 - 46 U/L 14 HCV RNA by PCR HCV RNA not detected by PCR. HCV RNA not detected by PCR. Hep B Surface Ag Negative Negative Hep A Ab, IgM Negative Negative Hep B Core Ab, IgM Negative Negative Results XR TIBIA FIBULA 2V AP/LAT LEFT (Acc#[id number] ) (Order [id number]) Patient Info Patient Name Sex Dory Polanco ([id number]) Female 2000 03/08/2024 6:36 PM - Radiology, Oru In Impression IMPRESSION: Negative Clinical Law Professor: PSCB Transcribe Date/Time: Mar 08 2024 6:33P Dictated by : NUPUR ASKEW MD This examination was interpreted and the report reviewed and electronically signed by: NUPUR ASKEW MD on Mar 08 2024 6:34PM EST Results-Findings * * *Final Report* * * DATE OF EXAM: Feb 29 2024 4:06PM WOX [id number] - XR TIBIA FIBULA 2V AP/LAT LT / PROCEDURE REASON: Pain in barney, unspecified laterality * * * * Physician Interpretation * * * * PROCEDURE: Bilateral tibia/fibula INDICATION: Pain in barney, unspecified laterality .pain off and on for the last month down the entire anterior barney area no inj TECHNIQUE: XR TIBIA FIBULA 2V AP/LAT RT, XR TIBIA FIBULA 2V AP/LAT LT COMPARISON: None FINDINGS: No fractures or dislocations are seen. The bones, joint spaces and soft tissues are unremarkable. Results XR TIBIA FIBULA 2V AP/LAT RIGHT (Acc#[id number]) (Order [id number]) Patient Info Patient Name Sex Dory Polanco ([id number]) Female 2000 03/08/2024 6:36 PM - Radiology, Oru In Impression IMPRESSION: Negative Clinical Law Professor: JOSE Transcribe Date/Time: Mar 08 2024 6:33P Dictated by : NUPUR ASKEW MD This examination was interpreted and the report reviewed and electronically signed by: NUPUR ASKEW MD on Mar 08 2024 6:34PM EST Results-Findings * * *Final Report* * * DATE OF EXAM: Feb 29 2024 4:06PM WOX [id number] - XR TIBIA FIBULA 2V AP/LAT RT / PROCEDURE REASON: Pain in barney, unspecified laterality * * * * Physician Interpretation * * * * PROCEDURE: Bilateral tibia/fibula INDICATION: Pain in barney, unspecified laterality .pain off and on for the last month down the entire anterior barney area no inj TECHNIQUE: XR TIBIA FIBULA 2V AP/LAT RT, XR TIBIA FIBULA 2V AP/LAT LT COMPARISON: None FINDINGS: No fractures or dislocations are seen. The bones, joint spaces and soft tissues are unremarkable. Results NM HEPATOBILIARY W EF AND/OR RX (Acc#[id number]) (Order [id number]) Patient Info Patient Name Sex Dory Polanco ([id number]) Female 2000 03/07/2024 6:34 PM - Radiology, Oru In Impression IMPRESSION: Mildly elevated gallbladder ejection fraction, which can be due to physiologic variation or a functional disorder. Clinical Law Professor: PSCB Transcribe Date/Time: Mar 07 2024 6:30P Dictated by : STEVEN ROSSI MD This examination was interpreted and the report reviewed and electronically signed by: STEVEN ROSSI MD on Mar 07 2024 6:31PM EST Results-Findings * * *Final Report* * * DATE OF EXAM: Mar 07 2024 4:55PM [facility] [id number] - NM HEPATOBILIARY W EF AND/OR RX / PROCEDURE REASON: multiple diagnoses * * * * Physician Interpretation * * * * EXAM: HEPATOBILIARY SCAN WITH GALLBLADDER EJECTION FRACTION HISTORY: RUQ pain Diarrhea, unspecified type Weight loss, unintentional TECHNIQUE: 4.9 millicuries of Tc-99m Choletec administered IV. Dynamic planar imaging of the abdomen acquired for 60 minutes. Next, 1.3 micrograms of CCK was administered IV followed by additional imaging to calculate a gallbladder ejection fraction. CORRELATION: No relevant prior imaging available RESULT: Liver: Within normal limits. Gallbladder: Activity present by one hour, indicating cystic duct patency. * Ejection fraction (EF): 82% (normal > 35% and < 80%) CBD: Activity present in the proximal small bowel by 1 hour, indicating patency. Other: No enterogastric reflux. Results ID BONE WHOLE BODY (Acc#[id number] ) (Order [id number]) Patient Info Patient Name Sex Dory Polanco ([id number]) Female 2000 03/10/2024 12:28 PM - Radiology, Oru In Impression IMPRESSION: Mild, diffusely increased calvarial uptake, which can be a normal variant. However, in the setting of elevated alkaline phosphatase, correlation with skull radiographs or head CT is recommended to exclude underlying Paget disease. Clinical Law Professor: PSCB Transcribe Date/Time: Mar 10 2024 11:49A Dictated by : SHELDON HENRY MD This examination was interpreted and the report reviewed and electronically signed by: STEVEN ROSSI MD on Mar 10 2024 12:26PM EST Results-Findings * * *Final Report* * * DATE OF EXAM: Mar 10 2024 11:40AM [facility] 0014 - NM BONE WHOLE BODY / PROCEDURE REASON: Elevated alkaline phosphatase level * * * * Physician Interpretation * * * * EXAMINATION: WHOLE BODY BONE SCAN CLINICAL HISTORY: Elevated alkaline phosphatase (ALP). TECHNIQUE: 23.8 millicuries of Tc-99m MDP administered IV. Planar whole body images in anterior and posterior projections obtained 3-4 hours after injection. Regional static planar images also obtained. COMPARISON: No prior bone scan available CORRELATION: Lumbar radiograph 12/10/2022, CT chest 06/02/2021 RESULT: Limitations: Bone scans are often not sensitive for lytic lesions. Bones: * There is mild, diffusely increased calvarial uptake. * Areas of increased uptake likely related to patient positioning include the bilateral sternoclavicular joints and bilateral sacroiliac joints.. Urinary tract: Physiologic activity confirmed. Results XR SKULL 2V AP/LAT (Acc#[id number] ) (Order [id number]) Patient Info Patient Name Sex Dory Polanco ([id number]) Female 2000 03/15/2024 1:35 PM - Radiology, Oru In Impression IMPRESSION: Unremarkable skull x-ray. Clinical Law Professor: JOSE Transcribe Date/Time: Mar 15 2024 1:31P Dictated by : KEITH CABALLERO MD This examination was interpreted and the report reviewed and electronically signed by: KEITH CABALLERO MD on Mar 15 2024 1:33PM EST Results-Findings * * *Final Report* * * DATE OF EXAM: Mar 15 2024 1:25PM [facility] [id number] - XR SKULL 2V AP/LAT / PROCEDURE REASON: Elevated alkaline phosphatase level * * * * Physician Interpretation * * * * XR SKULL 2V AP/LAT EXAM DATE/TIME: 03/15/2024 1:25 PM COMPARISON: None. CLINICAL INDICATION/HISTORY: Elevated alkaline phosphatase. TECHNIQUE: AP and lateral views of the skull are presented for interpretation. FINDINGS: No acute fractures or other bony abnormalities identified in the skull. The sinuses are aerated and clear. The orbits are symmetric and normal. There are no sclerotic or lytic bony abnormalities. Result History A/P ASSESSMENT/PLAN: 1. Abdominal pain, unspecified abdominal location - ICD9: 789.00, ICD10: R10.9 (primary diagnosis) See below 2. Elevated alkaline phosphatase level - ICD9: 790.5, ICD10: R74.8 - see below 3. Elevated LFTs - ICD9: 790.6, ICD10: R79.89 - see below 4. Nausea - ICD9: 787.02, ICD10: R11.0 - see below 5. Weight loss, unintentional - ICD9: 783.21, ICD10: R63.4 - see below. Patient to see gastro tomorrow for further evaluation of above issues. Patient still getting leg vikas at night and has appt with Rheum in Jun. Advised getting on wait list for a sooner appt. Wu Herrera MD documented in this encounter [facility] 03-16-2024 Telephone encounter Note Patient wanted to set up a video appointment to go results from her bone scan. Aaliyah Espitia MA [facility] 03-16-2024 Miscellaneous Notes Patient wanted to set up a video appointment to go results from her bone scan. Aaliyah Espitia MA Let patient know her skull x-rays were normal. Patient stopped by office and indicated that she had had her x ray completed. She wanted to be weighed. The scale today indicates 137.6 pounds. I told patient as soon as we have results we would contact her. She indicated that she also has her Gastro appointment this in [place]. Aaliyah Espitia MA documented in this encounter [facility] 03-15-2024 Telephone encounter Note Let patient know her skull x-rays were normal. [facility] 03-15-2024 Telephone encounter Note Patient stopped by office and indicated that she had had her x ray completed. She wanted to be weighed. The scale today indicates 137.6 pounds. I told patient as soon as we have results we would contact her. She indicated that she also has her Gastro appointment this in [place]. Aaliyah Espitia MA [facility] 03-15-2024 History of Present illness Narrative Radiology Service Progress Note PATIENT NAME: Dory Andrews DATE OF SERVICE: March 15, 2024 TIME: 1:18 PM PATIENT IDENTITY VERIFICATION COMPLETED USING TWO (2) IDENTIFIERS: Name and Date of confirmed by patient verbally. FALL SCREENING: Has the patient had 2 falls in the last year or 1 fall with injury or currently using an Ambulatory Assistive Device (Walker, Cane, Wheelchair, Crutches, etc.)? No PATIENT GENDER DATA: Female. status: : No status: NO. PATIENT RELEVANT IMPLANT DATA REVIEWED: Yes PATIENT PRESENTS WITH AN IMPLANTABLE OR ATTACHED HL7 DEVELOPER: No RADIOLOGY DEPARTMENT: General X-ray: Exam(s) Completed: Skull X-Ray PERIPHERAL IV DATA: Not applicable SIGNED BY: RT Lamin(R) March 15, 2024 1:18 PM documented in this encounter [facility] 03-15-[address] [facility] 03-15-2024 Telephone encounter Note Pt called and is notified of providers results and instructions. Pt voices understanding. Transferred to scheduled to set up appt with Gastroenterology. Temi Marquez RN [facility] 03-15-2024 Miscellaneous Notes Pt called and is notified of providers results and instructions. Pt voices understanding. Transferred to scheduled to set up appt with Gastroenterology. Temi Marquez, RN Let patient know HIDA scan was normal. With having elevated LFT's and upper abdominal pain I want her to see Gastro. Consult placed. Her GGT and antimitochondrial antibody tests were normal. X-rays of lower legs were within normal limits. The bone scan was ok but radiology advised getting skull films with the elevated Alk Phos. Orders placed. Pt notified of same, verbalized understanding. Pt wanting to know if x-ray results are in. Advised her they are still in process at this time. [place] Holm LPN Advise patient that this will need to wait until he's back in office. He may want her to discuss results with gastro or surgery department. Dee Roca PA-C Patient calling she had HIDA scan done yesterday and asking for the results. Aware PCP is out of office. Please advise 03/07/2024 6:34 PM - Radiology, Oru In Impression IMPRESSION: Mildly elevated gallbladder ejection fraction, which can be due to physiologic variation or a functional disorder. Clinical Law Professor: PSCB Transcribe Date/Time: Mar 07 2024 6:30P Dictated by : STEVEN ROSSI MD This examination was interpreted and the report reviewed and electronically signed by: STEVEN ROSSI MD on Mar 07 2024 6:31PM EST Results-Findings * * *Final Report* * * DATE OF EXAM: Mar 07 2024 4:55PM [facility] 0021 - NM HEPATOBILIARY W EF AND/OR RX / PROCEDURE REASON: multiple diagnoses * * * * Physician Interpretation * * * * EXAM: HEPATOBILIARY SCAN WITH GALLBLADDER EJECTION FRACTION HISTORY: RUQ pain Diarrhea, unspecified type Weight loss, unintentional TECHNIQUE: 4.9 millicuries of Tc-99m Choletec administered IV. Dynamic planar imaging of the abdomen acquired for 60 minutes. Next, 1.3 micrograms of CCK was administered IV followed by additional imaging to calculate a gallbladder ejection fraction. CORRELATION: No relevant prior imaging available RESULT: Liver: Within normal limits. Gallbladder: Activity present by one hour, indicating cystic duct patency. * Ejection fraction (EF): 82% (normal > 35% and < 80%) CBD: Activity present in the proximal small bowel by 1 hour, indicating patency. Other: No enterogastric reflux. documented in this encounter [facility] 03-13-2024 Telephone encounter Note Let patient know HIDA scan was normal. With having elevated LFT's and upper abdominal pain I want her to see Gastro. Consult placed. Her GGT and antimitochondrial antibody tests were normal. X-rays of lower legs were within normal limits. The bone scan was ok but radiology advised getting skull films with the elevated Alk Phos. Orders placed. [facility] 03-10-2024 History of Present illness Narrative RADIOLOGY SERVICE PROGRESS NOTE SERVICE DATE: 03/10/2024 SERVICE TIME: 09:00 AM PATIENT IDENTITY VERIFICATION COMPLETED USING TWO (2) STANDARD IDENTIFIERS: Name and Date of confirmed by patient verbally FALL SCREENING: Has the patient had 2 falls in the last year or 1 fall with injury or currently using an Ambulatory Assistive Device (Walker, Cane, Wheelchair, Crutches, etc.)? No PATIENT GENDER DATA: .female : No status: No ALLERGIES: Reviewed and unchanged MEDICATIONS REVIEWED: No PATIENT RELEVANT IMPLANT DATA REVIEWED: Not Applicable PATIENT PRESENTS WITH AN IMPLANTABLE OR ATTACHED HL7 DEVELOPER: n/a CREATININE: Creatinine Date Value Ref Range Status 02/29/2024 0.88 0.58 - 0.96 mg/dL Final 02/15/2024 0.66 0.58 - 0.96 mg/dL Final 01/18/2024 0.70 0.58 - 0.96 mg/dL Final Estimated Glomerular Filtration Rate Date Value Ref Range Status 02/29/2024 95 >=60 mL/min/1.73m Final Comment: Estimated Glomerular Filtration Rate (eGFR) is calculated using the 2020 CKD-EPI creatinine equation. This equation utilizes serum creatinine, sex, and age as parameters. The creatinine assay has traceable calibration to isotope dilution-mass spectrometry. Refer to KDIGO guidelines for clinical interpretation. In patients with unstable renal function, e.g. those with acute kidney injury, the eGFR may not accurately reflect actual GFR. eGFR- Date Value Ref Range Status 06/02/2021 Greater than 60 Final P.O.C.T. RESULTS: N/A March 10, [address] PERFORMED: No IV SITE: Ambulatory: A peripheral IV was started in the Left forearm with a Angio cath: 24 gauge. POST EXAM PIV STATUS: Discontinued PROCEDURE TYPE: NM INJECT: Whole Body Bone Scan. 23.8 mCi Tc99m MDP. No other medications given.. ADMINISTRATION TIME: 09:05 PATIENT DISCHARGED TO: Ambulatory patient, left NM department area. A Diagnostic radioactive procedure has taken place, with no further precautions necessary other than routine body substance precautions. More information regarding radiation safety can be found using this link: [email or web address] SIGNATURE: RT Laurita(Braulio) PATIENT NAME: Dory Andrews DATE: March 10, 2024 TIME: 10:25 AM PAGER/CONTACT #: documented in this encounter [facility] 03-10-[address] [facility] 03-08-2024 Telephone encounter Note Pt notified of same, verbalized understanding. Pt wanting to know if x-ray results are in. Advised her they are still in process at this time. Albania Holm LPN [facility] 03-08-2024 Telephone encounter Note Advise patient that this will need to wait until he's back in office. He may want her to discuss results with gastro or surgery department. Dee Roca PA-C [facility] 03-08-2024 Telephone encounter Note Patient calling she had HIDA scan done yesterday and asking for the results. Aware PCP is out of office. Please advise 03/07/2024 6:34 PM - Radiology, Oru In Impression IMPRESSION: Mildly elevated gallbladder ejection fraction, which can be due to physiologic variation or a functional disorder. Clinical Law Professor: JOSE Transcribe Date/Time: Mar 07 2024 6:30P Dictated by : STEVEN ROSSI MD This examination was interpreted and the report reviewed and electronically signed by: STEVEN ROSSI MD on Mar 07 2024 6:31PM EST Results-Findings * * *Final Report* * * DATE OF EXAM: Mar 07 2024 4:55PM [facility] 0021 - NM HEPATOBILIARY W EF AND/OR RX / PROCEDURE REASON: multiple diagnoses * * * * Physician Interpretation * * * * EXAM: HEPATOBILIARY SCAN WITH GALLBLADDER EJECTION FRACTION HISTORY: RUQ pain Diarrhea, unspecified type Weight loss, unintentional TECHNIQUE: 4.9 millicuries of Tc-99m Choletec administered IV. Dynamic planar imaging of the abdomen acquired for 60 minutes. Next, 1.3 micrograms of CCK was administered IV followed by additional imaging to calculate a gallbladder ejection fraction. CORRELATION: No relevant prior imaging available RESULT: Liver: Within normal limits. Gallbladder: Activity present by one hour, indicating cystic duct patency. * Ejection fraction (EF): 82% (normal > 35% and < 80%) CBD: Activity present in the proximal small bowel by 1 hour, indicating patency. Other: No enterogastric reflux. [facility] 03-07-[address] [facility] 03-03-2024 Telephone encounter Note Pt informed, verbalized understanding. Please schedule nuclear bone scan. Cheyanne Mcclure MA [facility] 03-03-2024 Miscellaneous Notes Pt informed, verbalized understanding. Please schedule nuclear bone scan. Cheyanne Mcclure MA Let patient know the bone fraction of her alk phos is elevated. Placed order to get a nuclear bone scan. Her liver functions are elevated and placed order for some additional labs. All her other labs were ok. documented in this encounter [facility] 03-03-2024 Telephone encounter Note Please see pt's message. You saw pt in office 02/28. Not sure if she needs to be seen for this issue. lAbania Holm LPN [facility] 03-03-2024 Miscellaneous Notes Please see pt's message. You saw pt in office 02/28. Not sure if she needs to be seen for this issue. Albania Holm LPN documented in this encounter [facility] 03-03-2024 Telephone encounter Note Let patient know the bone fraction of her alk phos is elevated. Placed order to get a nuclear bone scan. Her liver functions are elevated and placed order for some additional labs. All her other labs were ok. [facility] 03-01-2024 Telephone encounter Note Patient notified via my chart. Aaliyah Espitia MA [facility] 03-01-2024 Miscellaneous Notes Patient notified via my chart. Aaliyah Espitia MA Let patient know at this time I would encourage OTC Tylenol Arthritis 650 mg two tab two to three times a day. Patient states she saw Dr. Herrera yesterday for bone pain. Was advised to have labs completed and schedule appt with Rheumatology/Immunology. Her appt has been scheduled for June. Pt states she had bone pain in her legs so bad last night that she was crying. OTC medications ineffective. Reports could not sleep well. Pt asking if Dr. Herrera would order her something to help with this bone pain? Uses [facility], [place]. Please call patient with update. [phone] Karen Elizalde RN documented in this encounter [facility] 03-01-2024 Telephone encounter Note Let patient know at this time I would encourage OTC Tylenol Arthritis 650 mg two tab two to three times a day. [facility] 03-01-2024 Telephone encounter Note Patient states she saw Dr. Herrera yesterday for bone pain. Was advised to have labs completed and schedule appt with Rheumatology/Immunology. Her appt has been scheduled for June. Pt states she had bone pain in her legs so bad last night that she was crying. OTC medications ineffective. Reports could not sleep well. Pt asking if Dr. Herrera would order her something to help with this bone pain? Uses [facility], [place]. Please call patient with update. [phone] Karen Elizalde RN [facility] 02-29-2024 History of Present illness Narrative Radiology Service Progress Note PATIENT NAME: Dory Andrews DATE OF SERVICE: February 29, 2024 TIME: 3:57 PM PATIENT IDENTITY VERIFICATION COMPLETED USING TWO (2) IDENTIFIERS: Name and Date of confirmed by patient verbally. FALL SCREENING: Has the patient had 2 falls in the last year or 1 fall with injury or currently using an Ambulatory Assistive Device (Walker, Cane, Wheelchair, Crutches, etc.)? No PATIENT GENDER DATA: Female. status: : No status: NO. PATIENT RELEVANT IMPLANT DATA REVIEWED: Not Applicable PATIENT PRESENTS WITH AN IMPLANTABLE OR ATTACHED HL7 DEVELOPER: No RADIOLOGY DEPARTMENT: General X-ray: Exam(s) Completed: Lower Extremity X-Ray(s): Tibia Fibula, Bilateral PERIPHERAL IV DATA: Not applicable SIGNED BY: RT Darci(R) February 29, 2024 3:57 PM documented in this encounter [facility] 02-29-[address] [facility] 02-29-2024 History of Present illness Narrative Chief Complaint Patient presents with: elevated PUMA and bone pain HPI Dory Andrews is a 23 year old female who presents here today for discussion regarding positive PUMA. Patient indicated that she is having a flare up of bone pain in both legs/arms/pain scale 7/achey/comes and goes. Pain such as in the shines does get worse at night but not better with moving them. She has also been having cold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 Note Completion Last Updated: 23-Nov-2021 09:10 by Joseph Hester)[facility] 11-22-2021 NoteHistory of Present Illness: /Lactating: Are You no (1) Are You Currently Breastfeedingno (1) HPI: DORY ANDREWS is a 20 year old Female with history of psychiatric meds including depression, bipolar disorder, posttraumatic stress disorder on psych medications presented with suicidal attempt after break-up with her boyfriend and stress in her life leading to severe depression. Prior to this she was drinking all night after her break-up eventually took handful of metformin which she takes for polycystic ovarian syndrome according to her, propranolol as well as Lamictal and Zoloft tablets, unsure of exact count and unable to recall associated events, found to be unresponsive by her landlord who called EMS. Patient had agonal respiration with decreased respiratory rate and was bagged with 100% oxygen, given D50 and Narcan in the ER and was being prepped for intubation however she woke up and started on D10 drip. She is hemodynamically stable and maintaining vital saturations. ABGs reviewed. She denies any suicidal ideation or thoughts about hurting herself or others at this point. She is still depressed however. Will benefit from apple seed consult after medical clearance. She denies any headache or focal weakness or slurred speech or chest pain or shortness of breath or palpitations or dizziness or nervousness or sweating or tremors or palpitations. No seizures or frothy secretions from mouth or bowel or bladder incontinence. No bleeding from anywhere. She feels fatigued tired but awake and responding to questions appropriately. No back pain or flank pain or hematuria or dysuria. No rash. No other symptoms per the patient. EKG sinus tachycardia Past medical history POTS syndrome Depression Bipolar disorder PTSD Social history Smokes half pack per day for 2 years History of alcohol abuse but currently drinking socially according to her Denies any IV drug abuse Family history positive for hypothyroidism per the patient Review system All 12 point system negative except HPI Social History: Social History: Smoking Statuslight user (uses <10 cig/day, OR <0.5 ppd, OR 1 can/pouch loose leaf tobacco per week, OR <0.5 vape pods per day) (1) Alcohol Usedaily(1) Drug Usedenies (1) Allergies: No Known Allergies: Medications Prior to Admission: propranolol 10 mg oral tablet: 1 tab(s) orally 2 times a day Tylenol 500 mg oral tablet: 2 tab(s) orally every 6 hours, As Needed metFORMIN 500 mg oral tablet, extended release: 2 tab(s) orally once a day sertraline 100 mg oral tablet: 1 tab(s) orally once a day cyanocobalamin 1000 mcg/mL injectable solution: 1000 microgram(s) injectable every 4 weeks Vitamin D3 125 mcg (5000 intl units) oral capsule: 1 cap(s) orally once a day. Objective: Objective Information: T PRBPMAPSpO2 [id number]% Date/Time11/22 0: 0: 0: 0: 0: 0:00 Range(36.6C - 37C ) (82 - 111 ) (16 - 19 ) (103 - 135 )/ (50 - 81 ) (64 - 81 ) (96% - 100% ) Highest temp of 37 C was recorded at 11/22 0:00 Pain reported at 11/22 0:00: 0 = None Physical Exam by System: Constitutional: Well developed, awake/alert/oriented x3, no distress, alert and cooperative Eyes: PERRL, EOMI, clear sclera ENMT: mucous membranes moist, no apparent injury, no lesions seen Head/Neck: Neck supple, no apparent injury, thyroid without mass or tenderness, No JVD, trachea midline, no bruits Respiratory/Thorax: Patent airways, CTAB, normal breath sounds with good chest expansion, thorax symmetric Cardiovascular: Regular, rate and rhythm, no murmurs, 2+ equal pulses of the extremities, normal S 1and S 2 Gastrointestinal: Nondistended, soft, non-tender, no rebound tenderness or guarding, no masses palpable, no organomegaly, +BS, no bruits Musculoskeletal: ROM intact, no joint swelling, normal strength Extremities: normal extremities, no cyanosis edema, contusions or wounds, no clubbing Neurological: alert and oriented x3, intact senses, motor, response and reflexes, normal strength Lymphatic: No significant lymphadenopathy Psychological: Appropriate mood and behavior Skin: Warm and dry, no lesions, no rashes Medications: Medications: Continuous Medications 1. Dextrose 10% in Water Infusion: 500 mL IntraVenous 2. Dextrose 10% in Water Infusion: 1000 mL IntraVenous Scheduled Medications 1. Folic Acid: 1 mg Oral Daily 2. Nicotine 21 mg/ 24 hour TransDermal: 1 patch TransDermal Every 24 Hours 3. Thiamine: 100 mg Oral Daily PRN Medications 1. Albuterol 2.5 mg - Ipratropium 0.5 mg/ 3 mL Neb Soln: 3 mL Inhalation Every 4 Hours 2. Ondansetron Injectable: 4 mg IntraVenous Push Every 4 Hours 3. Sodium Chloride 0.9% Injectable Flush: 10 mL IntraVenous Flush Every 8 (more content not included)...[facility]11-17-2021 Note. MICRO - Microbiology PROCEDURE: Urine Culture [*1] SOURCE: Urine, Clean Catch BODY SITE: COLLECTED DATE/TIME: 05/27/2021 22:58 EST RECEIVED DATE/TIME: 05/27/2021 23:13 EST START DATE/TIME: 05/27/2021 23:13 EST FREE TEXT SOURCE: FINAL REPORTS Final Report [] Verified Date/Time/Personnel: 05/29/2021 08:03 EST 10,000 - 50,000 cfu/ml Mixed growth consistent with normal urogenital patricia. PRELIMINARY REPORTS Preliminary Report [] Verified Date/Time/Personnel: 05/28/2021 09:47 EST Culture results pending. Performing Locations *1: This test was performed at: [facility], [address] [place] [address], [id number] , [facility] ([place])05-27-2021 HCoV 229E RNA YAYO+non-probe Ql (Nph)Not Detected *NA* (05/27/21 7:21 PM) Auto Viro/Sero [id number] NoteDischarge Summary Dory Andrews : 2000 ADMIT DATE: 04/01/2021 DISCHARGE DATE: 04/03/2021 PRIMARY CARE PHYSICIAN: No primary care provider on file. VISIT STATUS: Admission CODE STATUS: Prior DISCHARGE DIAGNOSES: Alcohol use/abuse HOSPITAL COURSE: The patient is a 20 y.o. female presents requesting ETOH detox. She had contacted [facility], they had no beds and told her to present to the ED. She drinks a fifth a day, has not had ETOH for 4-5 days and now feels bad. No shakes, n/v, confusion. She denies sob, cough, f/c, dizziness, palpitations. She was admitted and placed on CIWA. ADM was consulted but did not see patient. She left AMA late in the night on 04/02/2021. SIGNIFICANT DIAGNOSTIC STUDIES: none CONSULTANTS: none RECOMMENDED NEXT STEPS: Patient left AMA. Physical Exam: General appearance: alert, cooperative and no distress Mental Status: oriented to person, place and time and normal affect Lungs: clear to auscultation bilaterally, normal effort Heart: regular rate and rhythm, no murmur Abdomen: soft, nontender, nondistended, bowel sounds present, no masses Extremities: no edema, redness, tenderness in the calves Skin: no gross lesions, rashes DISCHARGE MEDICATIONS: There are no discharge medications for this patient. DIET: No diet orders on file ACTIVITY: No restriction. up with assist COMPLEXITY OF FOLLOW UP: [] Moderate Complexity: follow up within 7-14 calendar days (93193) [] Severe Complexity: follow up within 7 calendar days (95206) FOLLOW UP TESTING, PENDING RESULTS OR REFERRALS AT TRANSITIONAL CARE VISIT: [] Yes [] No PENDING STUDIES: No DISPOSITION: AMA INSTRUCTIONS TO MA/SW: Please call patient on day after discharge (must document patient contacted within 2 business days of discharge). FOLLOW UP QUESTIONS FOR MA/SW: 1. Did you get medications filled and taking them as instructed from discharge? 2. Are you following your discharge instructions from your hospital stay? 3. Please confirm patient is scheduled for a follow up appointment within the above time frame. DISCHARGE TIME: < 30 minutes SIGNED: LOU SWEENEY MD 04/03/2021, 6:23 [facility]12-14-2020 History of Past illness Narrative* Problem Noted Date Resolved Date Encounter for gynecological examination 06/25/2009/18/2022 Overview: Seeing TOOL GRINDER OPERATOR EXTERNAL at [facility] Presence of (intrauterine) contraceptive device 05/30/2017 09/18/2022 Menorrhagia with irregular cycle 11/28/2015 09/18/2022 documented as of this encounter (statuses as of 09/18/2022) [facility] History of Past illness Narrative* Problem Noted Date Resolved Date Encounter for gynecological examination 06/25/2009/18/2022 Overview: Seeing TOOL GRINDER OPERATOR EXTERNAL at [facility] Presence of (intrauterine) contraceptive device 05/30/2017 09/18/2022 Menorrhagia with irregular cycle 11/28/2015 09/18/2022 documented as of this encounter (statuses as of 10/04/2022) [facility] History of Past illness Narrative* Problem Noted Date Resolved Date Encounter for gynecological examination 06/25/2009/18/2022 Overview: Seeing TOOL GRINDER OPERATOR EXTERNAL at [facility] Presence of (intrauterine) contraceptive device 05/30/2017 09/18/2022 Menorrhagia with irregular cycle 11/28/2015 09/18/2022 documented as of this encounter (statuses as of 10/13/2022) [facility] History of Past illness Narrative* Problem Noted Date Resolved Date Encounter for gynecological examination 06/25/2009/18/2022 Overview: Seeing TOOL GRINDER OPERATOR EXTERNAL at [facility] Presence of (intrauterine) contraceptive device 05/30/2017 09/18/2022 Menorrhagia with irregular cycle 11/28/2015 09/18/2022 documented as of this encounter (statuses as of 10/30/2022) [facility] History of Past illness Narrative* Problem Noted Date Resolved Date Encounter for gynecological examination 06/25/2009/18/2022 Overview: Seeing TOOL GRINDER OPERATOR EXTERNAL at [facility] Presence of (intrauterine) contraceptive device 05/30/2017 09/18/2022 Menorrhagia with irregular cycle 11/28/2015 09/18/2022 documented as of this encounter (statuses as of 11/11/2022) [facility] History of Past illness Narrative* Problem Noted Date Resolved Date Encounter for gynecological examination 06/25/2009/18/2022 Overview: Seeing TOOL GRINDER OPERATOR EXTERNAL at [facility] Presence of (intrauterine) contraceptive device 05/30/2017 09/18/2022 Menorrhagia with irregular cycle 11/28/2015 09/18/2022 documented as of this encounter (statuses as of 11/12/2022) [facility] History of Past illness Narrative* Problem Noted Date Resolved Date Encounter for gynecological examination 06/25/2009/18/2022 Overview: Seeing TOOL GRINDER OPERATOR EXTERNAL at [facility] Presence of (intrauterine) contraceptive device 05/30/2017 09/18/2022 Menorrhagia with irregular cycle 11/28/2015 09/18/2022 documented as of this encounter (statuses as of 11/16/2022) [facility] History of Past illness Narrative* Problem Noted Date Resolved Date Encounter for gynecological examination 06/25/2009/18/2022 Overview: Seeing TOOL GRINDER OPERATOR EXTERNAL at [facility] Presence of (intrauterine) contraceptive device 05/30/2017 09/18/2022 Menorrhagia with irregular cycle 11/28/2015 09/18/2022 documented as of this encounter (statuses as of 12/10/2022) [facility] History of Past illness Narrative* Problem Noted Date Resolved Date Encounter for gynecological examination 06/25/2009/18/2022 Overview: Seeing TOOL GRINDER OPERATOR EXTERNAL at [facility] Presence of (intrauterine) contraceptive device 05/30/2017 09/18/2022 Menorrhagia with irregular cycle 11/28/2015 09/18/2022 documented as of this encounter (statuses as of 12/10/2022) [facility] History of Past illness Narrative* Problem Noted Date Resolved Date Encounter for gynecological examination 06/25/2009/18/2022 Overview: Seeing TOOL GRINDER OPERATOR EXTERNAL at [facility] Presence of (intrauterine) contraceptive device 05/30/2017 09/18/2022 Menorrhagia with irregular cycle 11/28/2015 09/18/2022 documented as of this encounter (statuses as of 12/15/2022) [facility] History of Past illness Narrative* Problem Noted Date Resolved Date Encounter for gynecological examination 06/25/2009/18/2022 Overview: Seeing TOOL GRINDER OPERATOR EXTERNAL at [facility] Presence of (intrauterine) contraceptive device 05/30/2017 09/18/2022 Menorrhagia with irregular cycle 11/28/2015 09/18/2022 documented as of this encounter (statuses as of 12/17/2022) [facility] History of Past illness Narrative* Problem Noted Date Resolved Date Encounter for gynecological examination 06/25/2009/18/2022 Overview: Seeing TOOL GRINDER OPERATOR EXTERNAL at [facility] Presence of (intrauterine) contraceptive device 05/30/2017 09/18/2022 Menorrhagia with irregular cycle 11/28/2015 09/18/2022 documented as of this encounter (statuses as of 01/08/2023) [facility] History of Past illness Narrative* Problem Noted Date Diagnosed Date Resolved Date Encounter for gynecological examination 06/25/2020 09/18/2022 Overview: Seeing TOOL GRINDER OPERATOR EXTERNAL at [facility] Presence of (intrauterine) c ontraceptive device 05/30/2017 09/18/2022 Menorrhagia with irregular cycle 11/28/2015 09/18/2022 documented as of this encounter (statuses as of 03/03/2023) [facility] History of Past illness Narrative* Problem Noted Date Diagnosed Date Resolved Date Encounter for gynecological examination 06/25/2020 09/18/2022 Overview: Seeing TOOL GRINDER OPERATOR EXTERNAL at [facility] Presence of (intrauterine) c ontraceptive device 05/30/2017 09/18/2022 Menorrhagia with irregular cycle 11/28/2015 09/18/2022 documented as of this encounter (statuses as of 03/11/2023) [facility] History of Past illness Narrative* Problem Noted Date Diagnosed Date Resolved Date Encounter for gynecological examination 06/25/2020 09/18/2022 Overview: Seeing TOOL GRINDER OPERATOR EXTERNAL at [facility] Presence of (intrauterine) c ontraceptive device 05/30/2017 09/18/2022 Menorrhagia with irregular cycle 11/28/2015 09/18/2022 documented as of this encounter (statuses as of 03/19/2023) [facility] History of Past illness Narrative* Problem Noted Date Diagnosed Date Resolved Date Encounter for gynecological examination 06/25/2020 09/18/2022 Overview: Seeing TOOL GRINDER OPERATOR EXTERNAL at [facility] Presence of (intrauterine) c ontraceptive device 05/30/2017 09/18/2022 Menorrhagia with irregular cycle 11/28/2015 09/18/2022 documented as of this encounter (statuses as of 03/23/2023) [place] [address]-14-2020 History of Past illness Narrative* Problem Noted Date Diagnosed Date Resolved Date Encounter for gynecological examination 06/25/2020 09/18/2022 Overview: Seeing TOOL GRINDER OPERATOR EXTERNAL at [facility] Presence of (intrauterine) c ontraceptive device 05/30/2017 09/18/2022 Menorrhagia with irregular cycle 11/28/2015 09/18/2022 documented as of this encounter (statuses as of 03/24/2023) [facility] History of Past illness Narrative* Problem Noted Date Diagnosed Date Resolved Date Encounter for gynecological examination 06/25/2020 09/18/2022 Overview: Seeing TOOL GRINDER OPERATOR EXTERNAL at [facility] Presence of (intrauterine) c ontraceptive device 05/30/2017 09/18/2022 Menorrhagia with irregular cycle 11/28/2015 09/18/2022 documented as of this encounter (statuses as of 04/12/2023) [facility] History of Past illness Narrative* Problem Noted Date Diagnosed Date Resolved Date Encounter for gynecological examination 06/25/2020 09/18/2022 Overview: Seeing TOOL GRINDER OPERATOR EXTERNAL at [facility] Presence of (intrauterine) c ontraceptive device 05/30/2017 09/18/2022 Menorrhagia with irregular cycle 11/28/2015 09/18/2022 documented as of this encounter (statuses as of 04/18/2023) [facility] History of Past illness Narrative* Problem Noted Date Diagnosed Date Resolved Date Encounter for gynecological examination 06/25/2020 09/18/2022 Overview: Seeing TOOL GRINDER OPERATOR EXTERNAL at [facility] Presence of (intrauterine) c ontraceptive device 05/30/2017 09/18/2022 Menorrhagia with irregular cycle 11/28/2015 09/18/2022 documented as of this encounter (statuses as of 04/29/2023) [facility] History of Past illness Narrative* Problem Noted Date Diagnosed Date Resolved Date Encounter for gynecological examination 06/25/2020 09/18/2022 Overview: Seeing TOOL GRINDER OPERATOR EXTERNAL at [facility] Presence of (intrauterine) c ontraceptive device 05/30/2017 09/18/2022 Menorrhagia with irregular cycle 11/28/2015 09/18/2022 documented as of this encounter (statuses as of 05/01/2023) [facility] History of Past illness Narrative* Problem Noted Date Diagnosed Date Resolved Date Encounter for gynecological examination 06/25/2020 09/18/2022 Overview: Seeing TOOL GRINDER OPERATOR EXTERNAL at [facility] Presence of (intrauterine) c ontraceptive device 05/30/2017 09/18/2022 Menorrhagia with irregular cycle 11/28/2015 09/18/2022 documented as of this encounter (statuses as of 05/12/2023) [facility] History of Past illness Narrative* Problem Noted Date Diagnosed Date Resolved Date Encounter for gynecological examination 06/25/2020 09/18/2022 Overview: Seeing TOOL GRINDER OPERATOR EXTERNAL at [facility] Presence of (intrauterine) c ontraceptive device 05/30/2017 09/18/2022 Menorrhagia with irregular cycle 11/28/2015 09/18/2022 documented as of this encounter (statuses as of 05/17/2023) [facility] History of Past illness Narrative* Problem Noted Date Diagnosed Date Resolved Date Encounter for gynecological examination 06/25/2020 09/18/2022 Overview: Seeing TOOL GRINDER OPERATOR EXTERNAL at [facility] Presence of (intrauterine) c ontraceptive device 05/30/2017 09/18/2022 Menorrhagia with irregular cycle 11/28/2015 09/18/2022 documented as of this encounter (statuses as of 05/17/2023) [facility] History of Past illness Narrative* Problem Noted Date Diagnosed Date Resolved Date Encounter for gynecological examination 06/25/2020 09/18/2022 Overview: Seeing TOOL GRINDER OPERATOR EXTERNAL at [facility] Presence of (intrauterine) c ontraceptive device 05/30/2017 09/18/2022 Menorrhagia with irregular cycle 11/28/2015 09/18/2022 documented as of this encounter (statuses as of 05/20/2023) [facility] History of Past illness Narrative* Problem Noted Date Diagnosed Date Resolved Date Encounter for gynecological examination 06/25/2020 09/18/2022 Overview: Seeing TOOL GRINDER OPERATOR EXTERNAL at [facility] Presence of (intrauterine) c ontraceptive device 05/30/2017 09/18/2022 Menorrhagia with irregular cycle 11/28/2015 09/18/2022 documented as of this encounter (statuses as of 06/01/2023) [facility] History of Past illness Narrative* Problem Noted Date Diagnosed Date Resolved Date Encounter for gynecological examination 06/25/2020 09/18/2022 Overview: Seeing TOOL GRINDER OPERATOR EXTERNAL at [facility] Presence of (intrauterine) c ontraceptive device 05/30/2017 09/18/2022 Menorrhagia with irregular cycle 11/28/2015 09/18/2022 documented as of this encounter (statuses as of 06/03/2023) [facility] History of Past illness Narrative* Problem Noted Date Diagnosed Date Resolved Date Encounter for gynecological examination 06/25/2020 09/18/2022 Overview: Seeing TOOL GRINDER OPERATOR EXTERNAL at [facility] Presence of (intrauterine) c ontraceptive device 05/30/2017 09/18/2022 Menorrhagia with irregular cycle 11/28/2015 09/18/2022 documented as of this encounter (statuses as of 06/12/2023) [facility] History of Past illness Narrative* Problem Noted Date Diagnosed Date Resolved Date Encounter for gynecological examination 06/25/2020 09/18/2022 Overview: Seeing TOOL GRINDER OPERATOR EXTERNAL at [facility] Presence of (intrauterine) c ontraceptive device 05/30/2017 09/18/2022 Menorrhagia with irregular cycle 11/28/2015 09/18/2022 documented as of this encounter (statuses as of 06/12/2023) [facility] History of Past illness Narrative* Problem Noted Date Diagnosed Date Resolved Date Encounter for gynecological examination 06/25/2020 09/18/2022 Overview: Seeing TOOL GRINDER OPERATOR EXTERNAL at [facility] Presence of (intrauterine) c ontraceptive device 05/30/2017 09/18/2022 Menorrhagia with irregular cycle 11/28/2015 09/18/2022 documented as of this encounter (statuses as of 06/13/2023) [facility] History of Past illness Narrative* Problem Noted Date Diagnosed Date Resolved Date Encounter for gynecological examination 06/25/2020 09/18/2022 Overview: Seeing TOOL GRINDER OPERATOR EXTERNAL at [facility] Presence of (intrauterine) c ontraceptive device 05/30/2017 09/18/2022 Menorrhagia with irregular cycle 11/28/2015 09/18/2022 documented as of this encounter (statuses as of 06/18/2023) [facility] History of Past illness Narrative* Problem Noted Date Diagnosed Date Resolved Date Encounter for gynecological examination 06/25/2020 09/18/2022 Overview: Seeing TOOL GRINDER OPERATOR EXTERNAL at [facility] Presence of (intrauterine) c ontraceptive device 05/30/2017 09/18/2022 Menorrhagia with irregular cycle 11/28/2015 09/18/2022 documented as of this encounter (statuses as of 06/22/2023) [facility] History of Past illness Narrative* Problem Noted Date Diagnosed Date Resolved Date Encounter for gynecological examination 06/25/2020 09/18/2022 Overview: Seeing TOOL GRINDER OPERATOR EXTERNAL at [facility] Presence of (intrauterine) c ontraceptive device 05/30/2017 09/18/2022 Menorrhagia with irregular cycle 11/28/2015 09/18/2022 documented as of this encounter (statuses as of 08/15/2023) [facility] History of Past illness Narrative* Problem Noted Date Diagnosed Date Resolved Date Encounter for gynecological examination 06/25/2020 09/18/2022 Overview: Seeing TOOL GRINDER OPERATOR EXTERNAL at [facility] Presence of (intrauterine) c ontraceptive device 05/30/2017 09/18/2022 Menorrhagia with irregular cycle 11/28/2015 09/18/2022 documented as of this encounter (statuses as of 08/17/2023) [facility] History of Past illness Narrative* Problem Noted Date Diagnosed Date Resolved Date Encounter for gynecological examination 06/25/2020 09/18/2022 Overview: Seeing TOOL GRINDER OPERATOR EXTERNAL at [facility] Presence of (intrauterine) c ontraceptive device 05/30/2017 09/18/2022 Menorrhagia with irregular cycle 11/28/2015 09/18/2022 documented as of this encounter (statuses as of 08/18/2023) [facility] History of Past illness Narrative* Problem Noted Date Diagnosed Date Resolved Date Encounter for gynecological examination 06/25/2020 09/18/2022 Overview: Seeing TOOL GRINDER OPERATOR EXTERNAL at [facility] Presence of (intrauterine) c ontraceptive device 05/30/2017 09/18/2022 Menorrhagia with irregular cycle 11/28/2015 09/18/2022 documented as of this encounter (statuses as of 08/18/2023) [facility] History of Past illness Narrative* Problem Noted Date Diagnosed Date Resolved Date Encounter for gynecological examination 06/25/2020 09/18/2022 Overview: Seeing TOOL GRINDER OPERATOR EXTERNAL at [facility] Presence of (intrauterine) c ontraceptive device 05/30/2017 09/18/2022 Menorrhagia with irregular cycle 11/28/2015 09/18/2022 documented as of this encounter (statuses as of 08/19/2023) [facility] History of Past illness Narrative* Problem Noted Date Diagnosed Date Resolved Date Encounter for gynecological examination 06/25/2020 09/18/2022 Overview: Seeing TOOL GRINDER OPERATOR EXTERNAL at [facility] Presence of (intrauterine) c ontraceptive device 05/30/2017 09/18/2022 Menorrhagia with irregular cycle 11/28/2015 09/18/2022 documented as of this encounter (statuses as of 08/27/2023) [facility] No data available for this section [facility] Evaluation note* Diagnosis Alcohol withdrawal syndrome with complication (HCC)- Primary Anxiety state Anxiety state, unspecified Alcohol withdrawal, uncomplicated (HCC) documented in this encounter [facility] Work Phone: Evaluation note* Skin: Warm and dryEyes: Extraocular muscles intactENMT: Moist mucous membranesHead/Neck: Normocephalic, atraumaticRespiratory/Thorax: Bilateral equal breath sounds and clearMusculoskeletal: Resting comfortably in bedGastrointestinal: Soft, nontender, nondistendedExtremities: No peripheral edemaNeurological: Awake, alert, orientedPsychological: CooperativeCardiovascular: Regular rate and rhythmConstitutional: Awake, alert, oriented, no acute distress [facility] Diagnosis Fingernail problem- Primary Unspecified disease of nail Pain of finger of right hand Pain in limb documented in this encounter [facility] note* Diagnosis Abnormal uterine bleeding (AUB)- Primary documented in this encounter [facility] note* Diagnosis Abnormal uterine bleeding (AUB)- Primary documented in this encounter [facility] note* Diagnosis Severe episode of recurrent major depressive disorder, 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 Alcohol abuse Alcohol abuse, unspecified Anorexia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 Diagnostic Procedure Only (Routine) - Authorized Specialty Diagnoses / Procedures Referred By Contac t Referred To Contact US IMAGING Diagnoses Abnormal liver function tests Procedures US ABD RIGHT UPPER QUADRANT US ABDOMINAL REAL TIME W/IMAGE LIMITED Gaetano Schneider MD [address] [place] [address] [facility] Referral ID Status Reason Start Date Expiration Date Visits Requested Visits Authorized [id number] Authorized Auto-Generat ed Referral 11/11/2022 12/11/2023 1 1 [facility] for referral (narrative)* Diagnostic Procedure Only (Routine) - Closed Specialty Diagnoses / Procedures Referred By Contac t Referred To Contact XR IMAGING Diagnoses Chronic constipation Abdominal pain, LLQ Abdominal bloating Nausea and vomiting, unspecified vomiting type Heartburn Weight loss Change in bowel habits Procedures XR ABDOMEN 3V KUB W/OBLIQUES RADIOLOGIC EXAM ABDOMEN 3+ VIEWS Gaetano Schneider MD [address] [place] [address] [facility] Referral ID Status Reason Start Date Expiration Date V isits Requested Visits Authorized [id number] Closed Auto-Generate d Referral 11/07/2022 12/07/2023 1 1 [facility] for referral (narrative)* Diagnostic Procedure Only (Urgent) - Closed Specialty Diagnoses / Procedures Referred By Contac t Referred To Contact XR IMAGING Diagnoses Acute midline low back pain without sciatica Procedures XR LUMBAR GENERAL 3V AP/LAT/L5-S1 RADEX SPINE LUMBOSACRAL 2/3 VIEWS Lissette Jay PA-C [address] [place] [address] X[facility] Imaging Referral ID Status Reason Start Date Expiration Date V isits Requested Visits Authorized [id number] Closed Auto-Generate d Referral 12/10/2022 01/09/2024 1 1 [facility] for referral (narrative)* Diagnostic Procedure Only (Routine) - Closed Specialty Diagnoses / Procedures Referred By Contac t Referred To Contact US IMAGING Diagnoses Abnormal liver function tests Procedures US ABD RIGHT UPPER QUADRANT US ABDOMINAL REAL TIME W/IMAGE LIMITED Gaetano Schneider MD [address] [place] [address] Us Imaging [id number] Referral ID Status Reason Start Date Expiration Date V isits Requested Visits Authorized [id number] Closed Auto-Generate d Referral 11/11/2022 12/11/2023 1 1 [facility] for referral (narrative)* Diagnostic Procedure Only (Routine) - Closed Specialty Diagnoses / Procedures Referred By Contac t Referred To Contact XR IMAGING Diagnoses Chronic constipation Abdominal pain, LLQ Abdominal bloating Nausea and vomiting, unspecified vomiting type Heartburn Weight loss Change in bowel habits Procedures XR ABDOMEN 3V KUB W/OBLIQUES RADIOLOGIC EXAM ABDOMEN 3+ VIEWS Gaetano Schneider MD [address] [id number] [facility] [place] [address] Referral ID Status Reason Start Date Expiration Date V isits Requested Visits Authorized [id number] Closed Auto-Generate d Referral 11/07/2022 12/07/2023 1 1 [facility] for referral (narrative)* Diagnostic Procedure Only (Routine) - Authorized Specialty Diagnoses / Procedures Referred By Contac t Referred To Contact [facility] Diagnoses care, antepartum Procedures NUCHAL TRANSLUCENCY WHI US NUCHAL TRANSLUCENCY 1ST GESTATION Jose Cruz Espitia MD [address] [place] [address] [address] Referral ID Status Reason Start Date Expiration Date Visits Requested Visits Authorized [id number] Authorized Auto-Generat ed Referral 05/19/2023 05/18/2024 1 1 [facility] for referral (narrative)* Diagnostic Procedure Only (Routine) - Authorized Specialty Diagnoses / Procedures Referred By Contac t Referred To Contact [facility] Diagnoses Supervision of high risk , antepartum 13 weeks gestation of Supervision of high risk in second trimester Procedures OBSTETRIC ULTRASOUND WHI US PREG UTERUS AFTER 1ST TRIMEST GESTATION Daisy Hilliard APRN.CNM [address] [place] [address] [facility][Note 2] [address] [place] [id number] Referral ID Status Reason Start Date Expiration Date Visits Requested Visits Authorized [id number] Authorized Auto-Generat ed Referral 06/12/2023 06/11/2024 1 1 [facility] for referral (narrative)* Diagnostic Procedure Only (Routine) - Pending Review Specialty Diagnoses / Procedures Referred By Contac t Referred To Contact [facility] Diagnoses 23 weeks gestation of Sinus tachycardia Procedures OBSTETRIC ULTRASOUND WHI US PREG UTERUS AFTER 1ST TRIMEST Daisy Hilliard APRN.CNM [address] [place] [address] [address] Referral ID Status Reason Start Date Expiration Date Visits Requested Visits Authorized [id number] Pending Review Auto-Generat ed Referral 08/17/2023 08/16/2024 5 1 [facility] for referral (narrative)* Diagnostic Procedure Only (Routine) - Pending Review Specialty Diagnoses / Procedures Referred By Contac t Referred To Contact [facility] Diagnoses 32 weeks gestation of Decreased movements in third trimester, single or unspecified fetus Procedures BIOPHYSICAL PROFILE US WHI BIOPHYSICAL PROFILE NON-STRESS TESTING Lesli Solano APRN.CNP [address] [place] [address] [facility][Note 2] [address] [place] [id number] Referral ID Status Reason Start Date Expiration Date Visits Requested Visits Authorized [id number] Pending Review Auto-Generat ed Referral 10/19/2023 10/18/2024 10 1 [facility] (narrative)* Diagnostic Procedure Only (Routine) - Authorized Specialty Diagnoses / Procedures Referred By Contac t Referred To Contact [facility] Diagnoses 38 weeks gestation of High-risk in third trimester Procedures OBSTETRIC ULTRASOUND WHI US PREG UTERUS AFTER 1ST TRIMEST GESTATION Daisy Hilliard APRN.CNM [address] [place] [address] [facility][Note 2] [address] [place] [address] Referral ID Status Reason Start Date Expiration Date Visits Requested Visits Authorized [id number] Authorized Auto-Generat ed Referral 12/02/2023 12/01/2024 5 1 [facility] for referral (narrative)* Outpatient Procedure (Routine) - Authorized Specialty Diagnoses / Procedures Referred By Contac t Referred To Contact [facility] Diagnoses Encounter for initial prescription of implantable subdermal contraceptive Procedures NEXPLANON INSERTION ETONOGESTREL IMPLANT SYSTEM INSERT DRUG IMPLANT DEVICE Pari Livingston APRN.CNP [address] [place] [address] [facility][Note 2] [address] [place] [address] Referral ID Status Reason Start Date Expiration Date Visits Requested Visits Authorized [id number] Authorized Auto-Generat ed Referral 12/22/2023 12/21/2024 1 1 [facility] for referral (narrative)* Diagnostic Procedure Only (Routine) - Authorized Specialty Diagnoses / Procedures Referred By Contac t Referred To Contact [facility] IMAGING Diagnoses RUQ pain Nausea and vomiting, unspecified vomiting type Diarrhea, unspecified type Procedures US ABD RIGHT UPPER QUADRANT US ABDOMINAL REAL TIME W/IMAGE LIMITED Wu Herrera MD [address] [place] [address] [place] [address] Referral ID Status Reason Start Date Expiration Date Visits Requested Visits Authorized [id number] Authorized Auto-Generat ed Referral 01/18/2024 02/16/2025 1 1 [facility] for referral (narrative)* Diagnostic Procedure Only (Routine) - Authorized Specialty Diagnoses / Procedures Referred By Contac t Referred To Contact [facility] Diagnoses Lump in chest Breast skin changes Procedures US BREAST LTD RIGHT US BREAST UNI REAL TIME WITH IMAGE LIMITED Pari Livingston APRN.OIL WELL CABLE TOOL OPERATOR [address] [place] [address] [facility] [address] [place] [address] Referral ID Status Reason Start Date Expiration Date Visits Requested Visits Authorized [id number] Authorized Auto-Generat ed Referral 01/19/2024 02/17/2025 1 1 * Diagnostic Procedure Only (Routine) - Authorized Specialty Diagnoses / Procedures Referred By Contac t Referred To Contact [facility] Diagnoses Lump in chest Breast skin changes Procedures US BREAST LTD LEFT US BREAST UNI REAL TIME WITH IMAGE LIMITED Pari Livingston APRN.CNP [address] [place] [address] [facility] [address] [place] [id number] Referral ID Status Reason Start Date Expiration Date Visits Requested Visits Authorized [id number] Authorized Auto-Generat ed Referral 01/19/2024 02/17/2025 1 1 * Outpatient Procedure (Routine) - Pending Review Specialty Diagnoses / Procedures Referred By Rishi t Referred To Contact [facility] Diagnoses Insertion of implantable subdermal contraceptive Procedures NEXPLANON INSERTION ETONOGESTREL IMPLANT SYSTEM INSERT DRUG IMPLANT DEVICE Pari Livingston APRN.CNP [address] [place] [address] [facility][Note 2] [address] [place] [address] Referral ID Status Reason Start Date Expiration Date Visits Requested Visits Authorized [id number] Pending Review Auto-Generat ed Referral 01/19/2024 01/18/2025 1 1 [facility] for referral (narrative)* Diagnostic Procedure Only (Routine) - Closed Specialty Diagnoses / Procedures Referred By Contac t Referred To Contact XR IMAGING Diagnoses Pain in barney, unspecified laterality Procedures XR TIBIA FIBULA 2V AP/LAT RIGHT RADIOLOGIC EXAMINATION TIBIA & FIBULA 2 VIEWS Wu Herrera MD [address] [place] [address] [place] [address] Referral ID Status Reason Start Date Expiration Date V isits Requested Visits Authorized [id number] Closed Auto-Generate d Referral 02/29/2024 03/30/2025 1 1 * Diagnostic Procedure Only (Routine) - Closed Specialty Diagnoses / Procedures [facility] To Contact [facility] Diagnoses Pain in barney, unspecified laterality Procedures XR TIBIA FIBULA 2V AP/LAT LEFT RADIOLOGIC EXAMINATION TIBIA & FIBULA 2 VIEWS Wu Herrera MD [facility] [place] [address] [place] [address] Referral ID Status Reason Start Date Expiration Date V isits Requested Visits Authorized [id number] Closed Auto-Generate d Referral 02/29/2024 03/30/2025 1 1 * Consult, Test, Treat (Routine) - Authorized Specialty Diagnoses / Procedures [facility] Referred To Contact Rheumatology Diagnoses PUMA positive Fatigue, unspecified type Bone pain Muscle pain Procedures CONSULT TO RHEUM/IMMUN DISEASE OFFICE/OUTPATIENT [facility] 60 MINUTES Wu Herrera MD [address] [place], [place] [id number] Referral ID Status Reason Start Date Expiration Date Visits Requested Visits Authorized [id number] Authorized PCP Requested Referral 02/29/2024 02/28/2025 1 1 * Diagnostic Procedure Only (Routine) - Authorized Specialty Diagnoses / Procedures [facility] Referred To Contact MOLECULAR & FUNCTIONAL IMAGING Diagnoses RUQ pain Diarrhea, unspecified type Weight loss, unintentional Procedures NM HEPATOBILIARY W EF AND/OR RX HEPATOBIL SYST IMAG INC GB W/PHARMA INTERVENJ Sharon, Wu A, MD [address] [place] [address] Molecular & Functional Imaging [address] [place] [address] Referral ID Status Reason Start Date Expiration Date Visits Requested Visits Authorized [id number] Authorized Auto-Generat ed Referral 02/29/2024 03/30/2025 1 1 [facility] for referral (narrative)* Diagnostic Procedure Only (Routine) - Closed Specialty Diagnoses / Procedures Referred By Contac t Referred To Contact MOLECULAR & FUNCTIONAL IMAGING Diagnoses RUQ pain Diarrhea, unspecified type Weight loss, unintentional Procedures NM HEPATOBILIARY W EF AND/OR RX HEPATOBIL SYST IMAG INC GB W/PHARMA Wu Asher MD [address] [place] [address] Molecular & Functional Imaging [address] [place] [address] Referral ID Status Reason Start Date Expiration Date V isits Requested Visits Authorized [id number] Closed Auto-Generate d Referral 02/29/2024 03/30/2025 1 1 [facility] for referral (narrative)* Diagnostic Procedure Only (Routine) - Closed Specialty Diagnoses / Procedures Referred By Contac t Referred To Contact MOLECULAR & FUNCTIONAL IMAGING Diagnoses Elevated alkaline phosphatase level Procedures NM BONE WHOLE BODY BONE &/JOINT IMAGING WHOLE BODY Wu Herrera MD [address] [place] [address] Molecular & Functional Imaging [address] [place] [address] Referral ID Status Reason Start Date Expiration Date V isits Requested Visits Authorized [id number] Closed Auto-Generate d Referral 03/03/2024 04/02/2025 1 1 [facility] for referral (narrative)* Diagnostic Procedure Only (Routine) - Closed Specialty Diagnoses / Procedures Referred By Contac t Referred To Contact XR IMAGING Diagnoses Elevated alkaline phosphatase level Procedures XR SKULL 2V AP/LAT RADIOLOGIC EXAMINATION SKULL 4< VIEWS Wu Herrera MD [address] [place] [address] [place] [address] Referral ID Status Reason Start Date Expiration Date V isits Requested Visits Authorized [id number] Closed Auto-Generate d Referral 03/13/2024 04/12/2025 1 1 * Consult, Test, Treat (Routine) - Authorized Specialty Diagnoses / Procedures Referred By Contac t Referred To Contact Gastroenterology Diagnoses Upper abdominal pain Elevated LFTs Elevated alkaline phosphatase level Weight loss Procedures CONSULT TO GASTROENTEROLOGY OFFICE/OUTPATIENT NEW HIGH MDM 60 MINUTES Wu Herrera MD [address] [place] [phone] Referral ID Status Reason Start Date Expiration Date Visits Requested Visits Authorized [id number] Authorized PCP Requested Referral 03/13/2024 03/13/2025 1 1 [facility] for referral (narrative)* Diagnostic Procedure Only (Routine) - Closed Specialty Diagnoses / Procedures Referred By Contac t Referred To Contact XR IMAGING Diagnoses Pain in barney, unspecified laterality Procedures XR TIBIA FIBULA 2V AP/LAT RIGHT RADIOLOGIC EXAMINATION TIBIA & FIBULA 2 VIEWS Wu Herrera MD [address] [place] [address] [place] [address] Referral ID Status Reason Start Date Expiration Date V isits Requested Visits Authorized [id number] Closed Auto-Generate d Referral 02/29/2024 03/30/2025 1 1 * Diagnostic Procedure Only (Routine) - Closed Specialty Diagnoses / Procedures Referred By Contac t Referred To Contact XR IMAGING Diagnoses Pain in barney, unspecified laterality Procedures XR TIBIA FIBULA 2V AP/LAT LEFT RADIOLOGIC EXAMINATION TIBIA & FIBULA 2 VIEWS Wu Herrera MD [address] [place] [address] [place] [address] Referral ID Status Reason Start Date Expiration Date V isits Requested Visits Authorized [id number] Closed Auto-Generate d Referral 02/29/2024 03/30/2025 1 1 [facility] for referral (narrative)* Diagnostic Procedure Only (Routine) - Closed Specialty Diagnoses / Procedures Referred By Contac t Referred To Contact XR IMAGING Diagnoses Elevated alkaline phosphatase level Procedures XR SKULL 2V AP/LAT RADIOLOGIC EXAMINATION SKULL 4< VIEWS Wu Herrera MD [address] [place] [address] [place] [address] Referral ID Status Reason Start Date Expiration Date V isits Requested Visits Authorized [id number] Closed Auto-Generate d Referral 03/13/2024 04/12/2025 1 1 [facility] for referral (narrative)* Diagnostic Procedure Only (Routine) - Closed Specialty Diagnoses / Procedures Referred By Contac t Referred To Contact MOLECULAR & FUNCTIONAL IMAGING Diagnoses Elevated alkaline phosphatase level Procedures NM BONE WHOLE BODY BONE &/JOINT IMAGING WHOLE BODY Wu Herrera MD [address] [place] [address] Molecular & Functional Imaging [address] [place] [address] Referral ID Status Reason Start Date Expiration Date V isits Requested Visits Authorized [id number] Closed Auto-Generate d Referral 03/03/2024 04/02/2025 1 1 [facility] for referral (narrative)* Diagnostic Procedure Only (Routine) - Authorized Specialty Diagnoses / Procedures Referred By Contac t Referred To Contact [facility] Diagnoses Postcoital and contact bleeding Procedures PELVIC US WHI US PELVIC NONOBSTETRIC REAL-TIME IMAGE COMPLETE Haury, Lesli, PROVIDER NETWORK ANALYST.OIL WELL CABLE TOOL OPERATOR [address] [place] [address] [facility]Note 2] [address] [place] [address] Referral ID Status Reason Start Date Expiration Date Visits Requested Visits Authorized [id number] Authorized Auto-Generat ed Referral 03/31/2024 03/31/2025 1 1 [facility] for referral (narrative)* Diagnostic Procedure Only (Urgent) - Closed Specialty Diagnoses / Procedures Referred By Contac t Referred To Contact XR IMAGING Diagnoses Acute midline low back pain without sciatica Procedures XR LUMBAR GENERAL 3V AP/LAT/L5-S1 RADEX SPINE LUMBOSACRAL 2/3 VIEWS Lissette Jay PA-C [address] [place] [address] Xr Imaging [id number] Referral ID Status Reason Start Date Expiration Date V isits Requested Visits Authorized [id number] Closed Auto-Generate d Referral 12/10/2022 01/09/2024 1 1 [facility] for referral (narrative)* Outpatient Procedure (Routine) - New Request Specialty Diagnoses / Procedures Referred By Contac t Referred To Contact [facility] Diagnoses Nexplanon removal Procedures NEXPLANON REMOVAL REMOVAL NON-BIODEGRADABLE DRUG DELIVERY IMPLANT Lesli Solano APRN.CNP [address] [place] [address] [facility][Note 2] [address] [place] [address] Referral ID Status Reason Start Date Expiration Date Visits Requested Visits Authorized [id number] New Request Auto-Generat ed Referral 04/11/2024 04/11/2025 1 1 [facility] for referral (narrative)* Outpatient Procedure (Routine) - Closed Specialty Diagnoses / Procedures Referred By Contac t Referred To Contact [facility] Diagnoses Diarrhea, unspecified type Procedures COLONOSCOPY DIAGNOSTIC COLONOSCOPY FLX DX W/COLLJ SPEC WHEN PFRMD Ofelia Merritt PA-C [address] [place] [address] [address] Referral ID Status Reason Start Date Expiration Date V isits Requested Visits Authorized [id number] Closed Auto-Generate d Referral 03/23/2024 03/23/2025 1 1 * Outpatient Procedure (Routine) - Closed Specialty Diagnoses / Procedures [facility] Referred To Contact [facility] Diagnoses RUQ pain Procedures EGD DIAGNOSTIC ESOPHAGOGASTRODUODENOS COPY TRANSORAL DIAGNOSTIC Ofelia Merritt PA-C [address] [place] [address] [address] Referral ID Status Reason Start Date Expiration Date V isits Requested Visits Authorized [id number] Closed Auto-Generate d Referral 03/23/2024 03/23/2025 1 1 [facility] for referral (narrative)* Diagnostic Procedure Only (Routine) - Closed Specialty Diagnoses / Procedures [facility] Referred To Contact XR IMAGING Diagnoses PUMA positive Fatigue, unspecified type Bone pain Muscle pain Hypermobility arthralgia Rash of face Autonomic dysfunction Sicca syndrome (HCC) Procedures XR HAND GENERAL 3V PA/LAT/OBL BILATERAL RADEX HAND MINIMUM [address] [place] [address] [place] [address] [place] [address] Referral ID Status Reason Start Date Expiration Date V isits Requested Visits Authorized [id number] Closed Auto-Generate d Referral 06/16/2024 07/16/2025 1 1 [facility] for referral (narrative)* Diagnostic Procedure Only (Routine) - New Request Specialty Diagnoses / Procedures Referred By Contac t Referred To Contact MOLECULAR & FUNCTIONAL IMAGING Diagnoses RUQ pain Early satiety Nausea Procedures NM GASTRIC EMPTYING SOLID GASTRIC EMPTYING STUDY Ofelia Merritt PA-C [address] [place] [address] Molecular & Functional Imaging [address] [place], [place] [id number] Referral ID Status Reason Start Date Expiration Date Visits Requested Visits Authorized [id number] New Request Auto-Generat ed Referral 07/23/2025 1 1 [facility] for referral (narrative)* Diagnostic Procedure Only (Routine) - Closed Specialty Diagnoses / Procedures Referred By Rishi sterling Referred To Contact MOLECULAR & FUNCTIONAL IMAGING Diagnoses RUQ pain Early satiety Nausea Procedures NM GASTRIC EMPTYING SOLID GASTRIC EMPTYING STUDY Ofelia Merritt PA-C [address] [place] [address] Molecular & Functional Imaging [address] [place], [place] [phone] Referral ID Status Reason Start Date Expiration Date V isits Requested Visits Authorized [id number] Closed Auto-Generate d Referral 06/23/2024 07/23/2025 1 1 [facility] for visit Narrative* Diagnostic Procedure Only (Routine) - Closed Specialty Diagnoses / Procedures Referred By Contac t Referred To Contact BR IMAGING Diagnoses Breast pain, left Cellulitis, unspecified cellulitis site Procedures US BREAST LTD LT US BREAST UNI REAL TIME WITH IMAGE LIMITED Pari Livingston APRN.OIL WELL CABLE TOOL OPERATOR [address] [place] [address] Br Imaging [address] [place] [address] Referral ID Status Reason Start Date Expiration Date V isits Requested Visits Authorized [id number] Closed Auto-Generate d Referral 06/10/2022 07/10/2023 1 1 [facility] for visit Narrative* Outpatient Procedure (Routine) - Closed Specialty Diagnoses / Procedures Referred By Rishi t Referred To Contact [facility] Diagnoses Nexplanon removal Procedures NEXPLANON REMOVAL REMOVAL NON-BIODEGRADABLE DRUG DELIVERY IMPLANT ETONOGESTREL IMPLANT SYSTEM Pari Livingston APRN.OIL WELL CABLE TOOL OPERATOR [address] [place] [address] [facility]Note 2] [address] [place] [address] Referral ID Status Reason Start Date Expiration Date V isits Requested Visits Authorized [id number] Closed Auto-Generate d Referral 02/24/2023 07/12/2023 1 1 [facility] for visit Narrative* Diagnostic Procedure Only (Routine) - Closed Specialty Diagnoses / Procedures Referred By Rishi t Referred To Contact XR IMAGING Diagnoses Chronic constipation Abdominal pain, LLQ Abdominal bloating Nausea and vomiting, unspecified vomiting type Heartburn Weight loss Change in bowel habits Procedures XR ABDOMEN 3V KUB W/OBLIQUES RADIOLOGIC EXAM ABDOMEN 3+ VIEWS Gaetano Schneider MD [address] [place] [address] Xr Imaging [place] [address] Referral ID Status Reason Start Date Expiration Date V isits Requested Visits Authorized [id number] Closed Auto-Generate d Referral 11/07/2022 12/07/2023 1 1 [facility] for visit Narrative* Diagnostic Procedure Only (Routine) - Closed Specialty Diagnoses / Procedures Referred By Rishi t Referred To Contact MOLECULAR & FUNCTIONAL IMAGING Diagnoses Elevated alkaline phosphatase level Procedures NM BONE WHOLE BODY BONE &/JOINT IMAGING WHOLE BODY Wu Herrera MD [address] [place] [address] Molecular & Functional Imaging [address] [place] [address] Referral ID Status Reason Start Date Expiration Date V isits Requested Visits Authorized [id number] Closed Auto-Generate d Referral 03/03/2024 04/02/2025 1 1 [facility] for visit Narrative* Diagnostic Procedure Only (Routine) - Closed Specialty Diagnoses / Procedures Referred By Contac t Referred To Contact XR IMAGING Diagnoses Pain in barney, unspecified laterality Procedures XR TIBIA FIBULA 2V AP/LAT RIGHT RADIOLOGIC EXAMINATION TIBIA & FIBULA 2 VIEWS Wu Herrera MD [address] [place] [address] [place] [address] Referral ID Status Reason Start Date Expiration Date V isits Requested Visits Authorized [id number] Closed Auto-Generate d Referral 02/29/2024 03/30/2025 1 1 [facility] for visit Narrative* Diagnostic Procedure Only (Routine) - Closed Specialty Diagnoses / Procedures Referred By Contac t Referred To Contact XR IMAGING Diagnoses Elevated alkaline phosphatase level Procedures XR SKULL 2V AP/LAT RADIOLOGIC EXAMINATION SKULL 4< VIEWS Wu Herrera MD [address] [place] [phone] [place] [address] Referral ID Status Reason Start Date Expiration Date V isits Requested Visits Authorized [id number] Closed Auto-Generate d Referral 03/13/2024 04/12/2025 1 1 [facility] for visit Narrative* Diagnostic Procedure Only (Urgent) - Closed Specialty Diagnoses / Procedures Referred By Contac t Referred To Contact XR IMAGING Diagnoses Acute midline low back pain without sciatica Procedures XR LUMBAR GENERAL 3V AP/LAT/L5-S1 RADEX SPINE LUMBOSACRAL 2/3 VIEWS Lissette Jay, PAJohanC [address] [place] [phone] [place] [address] Referral ID Status Reason Start Date Expiration Date V isits Requested Visits Authorized [id number] Closed Auto-Generate d Referral 12/10/2022 01/09/2024 1 1 [facility] for visit Narrative* Diagnostic Procedure Only (Routine) - Closed Specialty Diagnoses / Procedures Referred By Contac t Referred To Contact [facility] Diagnoses Postcoital and contact bleeding Procedures PELVIC US I US PELVIC NONOBSTETRIC REAL-TIME IMAGE COMPLETE Lesli Solano, PROVIDER NETWORK ANALYST.OIL WELL CABLE TOOL OPERATOR [address] [place] [phone] [facility][Note 2] [address] [place] [address] Referral ID Status Reason Start Date Expiration Date V isits Requested Visits Authorized [id number] Closed Auto-Generate d Referral 03/31/2024 03/31/2025 1 1 [facility] for visit Narrative* Outpatient Procedure (Routine) - Closed Specialty Diagnoses / Procedures Referred By Contac t Referred To Contact [facility] Diagnoses Diarrhea, unspecified type Procedures COLONOSCOPY DIAGNOSTIC COLONOSCOPY FLX DX W/COLLJ SPEC WHEN PFRMOfelia Cee PA-C [address] [place] [address] [place] [phone] Referral ID Status Reason Start Date Expiration Date V isits Requested Visits Authorized [id number] Closed Auto-Generate d Referral 03/23/2024 03/23/2025 1 1 [facility] for visit Narrative* Diagnostic Procedure Only (Routine) - Closed Specialty Diagnoses / Procedures Referred By Contac t Referred To Contact US IMAGING Diagnoses Night sweat Pharyngitis, unspecified etiology RUQ abdominal pain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 dose 2218 (Given - Provider: Becca Quiros RN) sodium chloride flush 0.9 % injection 3 mL(Linked Group 1) 3 mL, IntraVENous, EVERY 8 HOURS, First dose on Thu04/01/21 at 2044, Flush line with 3-5 mL 2044 (Due) 1211 (Not Given - Provider: Miya Calzada RN - Reason: IV Fluid Infusing)1620 (Not Given - Provider: Miya Calzada RN - Reason: IV Fluid Infusing)2044 (Due) thiamine mononitrate tablet 100 mg 100 mg, Oral, DAILY, First dose on Thu04/02/21 at 0900 0840 (Given - Provid er: Salma Padilla RN) Continuous Medication Order 03/31/2021 04/01/2021 04/02/2021 0.9 % sodium chloride infusion IntraVENous, at 100 mL/hr, CONTINUOUS, Starting on Thu04/02/21 at 0615, For 10 hours 0620 (New Bag - Prov ider: Mariana Wolff RN)1620 (Stopped - Provider: Miya Calzada RN) PRN Medication Order 03/31/2021 04/01/2021 04/02/2021 acetaminophen (TYLENOL) suppository 650 mg(Linked Group 2) 650 mg, Rectal, EVERY 6 HOURS PRN, Pain Mild (1-3), Fever, For temp greater than 100.4 F (38 C), Starting on Thu04/02/21 at 0731, Administer if oral route cannot be used. 1626 (See Alternativ e - Provider: Miya Calzada RN) acetaminophen (TYLENOL) tablet 650 mg(Linked Group 2) 650 mg, Oral, EVERY 6 HOURS PRN, Pain Mild (1-3), Fever, For temp greater than 100.4 F (38 C), Starting on Thu04/02/21 at 0731, Maximum dose of acetaminophen is 4000 mg from all sources in 24 hours. 1626 (Given - Provid er: Miya Calzada RN) LORazepam (ATIVAN) injection 1 mg(Linked Group 3) 1 mg, IntraVENous, EVERY 1 HOUR PRN (WITHDRAWAL), Withdrawal, For alcohol withdrawal., Starting on Thu04/02/21 at 0219, For CIWA score 8 to 10. If both oral and intravenous CIWA medications ordered, use intravenous if unable to tolerate oral equivalent. Reassess CIWA one hour after each dose of medication and as needed. LORazepam (ATIVAN) injection 2 mg(Linked Group 3) 2 mg, IntraVENous, EVERY 1 HOUR PRN (WITHDRAWAL), Withdrawal, For alcohol withdrawal., Starting on Thu04/02/21 at 0219, For CIWA score 11 to 15. If both oral and intravenous CIWA medications ordered, use intravenous if unable to tolerate oral equivalent. Reassess CIWA one hour after each dose of medication and as needed. LORazepam (ATIVAN) injection 3 mg(Linked Group 3) 3 mg, IntraVENous, EVERY 1 HOUR PRN (WITHDRAWAL), Withdrawal, For alcohol withdrawal., Starting on Thu04/02/21 at 021, For CIWA score 16 to 20. If both oral and intravenous CIWA medications ordered, use intravenous if unable to tolerate oral equivalent. Reassess CIWA one hour after each dose of medication and as needed. LORazepam (ATIVAN) injection 4 mg(Linked Group 3) 4 mg, IntraVENous, EVERY 1 HOUR PRN (WITHDRAWAL), Withdrawal, For alcohol withdrawal., Starting on Thu04/02/21 at 021, For CIWA score greater than 20. If both oral and intravenous CIWA medications ordered, use intravenous if unable to tolerate oral equivalent. Reassess CIWA one hour after each dose of medication and as needed. LORazepam (ATIVAN) tablet 1 mg(Linked Group 3) 1 mg, Oral, EVERY 1 HOUR PRN (WITHDRAWAL), For alcohol withdrawal., Starting on Thu04/02/21 at 0219, For CIWA score 8 to 10. Reassess CIWA one hour after each dose of medication and as needed. LORazepam (ATIVAN) tablet 2 mg(Linked Group 3) 2 mg, Oral, EVERY 1 HOUR PRN (WITHDRAWAL), For alcohol withdrawal., Starting on Thu04/02/21 at 021, For CIWA score 11 to 15. Reassess CIWA one hour after each dose of medication and as needed. LORazepam (ATIVAN) tablet 3 mg(Linked Group 3) 3 mg, Oral, EVERY 1 HOUR PRN (WITHDRAWAL), For alcohol withdrawal., Starting on Thu04/02/21 at 0219, For CIWA score 16 to 20. Reassess CIWA one hour after each dose of medication and as needed. LORazepam (ATIVAN) tablet 4 mg(Linked Group 3) 4 mg, Oral, EVERY 1 HOUR PRN (WITHDRAWAL), For alcohol withdrawal., Starting on Thu04/02/21 at 0219, For CIWA score greater than 20. Reassess CIWA one hour after each dose of medication and as needed. nicotine polacrilex (COMMIT) lozenge 2 mg 2 mg, Oral, EVERY 1 HOUR PRN, Smoking cessation, Starting on Thu04/02/21 at 0731, Do not use continuously one lozenge after another. Maximum: 5 lozenges every 6 hours; 20 lozenges/day ondansetron (ZOFRAN) injection 4 mg(Linked Group 4) 4 mg, IntraVENous, EVERY 6 HOURS PRN, Nausea, Vomiting, Starting on Thu04/02/21 at 0731, Administer if oral route cannot be used. 2039 (Given - Provid er: Tiara Gabriel RN) ondansetron (ZOFRAN-ODT) disintegrating tablet 4 mg(Linked Group 4) 4 mg, Oral, EVERY 8 HOURS PRN, Nausea, Vomiting, Starting on Thu04/02/21 at 0731 2039 (See Alternativ e - Provider: Tiara Gabriel RN) Linked Groups Order Group 1: Saline lock IV (COMPLETED) Routine, CONTINUOUS, Starting on Thu04/01/21 at 2044, Until Specified And sodium chloride flush 0.9 % injection 3 mLJump to med 3 mL, IntraVENous, EVERY 8 HOURS, First dose on Thu04/01/21 at 2044
Flush line with 3-5 mL
Group 2: acetaminophen (TYLENOL) tablet 650 mgJump to med 650 mg, Oral, EVERY 6 HOURS PRN, Pain Mild (1-3), Fever, For temp greater than 100.4 F (38 C), Starting on Thu04/02/21 at 0731
Maximum dose of acetaminophen is 4000 mg from all sources in 24 hours.
Or acetaminophen (TYLENOL) suppository 650 mgJump to med 650 mg, Rectal, EVERY 6 HOURS PRN, Pain Mild (1-3), Fever, For temp greater than 100.4 F (38 C), Starting on Thu04/02/21 at 0731
Administer if oral route cannot be used.
Group 3: LORazepam (ATIVAN) tablet 1 mgJump to med 1 mg, Oral, EVERY 1 HOUR PRN (WITHDRAWAL), For alcohol withdrawal., Starting on Thu04/02/21 at 0219
For CIWA score 8 to 10. Reassess CIWA one hour after each dose of medication and as needed.
Or LORazepam (ATIVAN) injection 1 mgJump to med 1 mg, IntraVENous, EVERY 1 HOUR PRN (WITHDRAWAL), Withdrawal, For alcohol withdrawal., Starting on Thu04/02/21 at 0219
For CIWA score 8 to 10. If both oral and intravenous CIWA medications ordered, use intravenous if unable to tolerate oral equivalent. Reassess CIWA one hour after each dose of medication and as needed.
Or LORazepam (ATIVAN) tablet 2 mgJump to med 2 mg, Oral, EVERY 1 HOUR PRN (WITHDRAWAL), For alcohol withdrawal., Starting on Thu04/02/21 at 0219
For CIWA score 11 to 15. Reassess CIWA one hour after each dose of medication and as needed.
Or LORazepam (ATIVAN) injection 2 mgJump to med 2 mg, IntraVENous, EVERY 1 HOUR PRN (WITHDRAWAL), Withdrawal, For alcohol withdrawal., Starting on Thu04/02/21 at 0219
For CIWA score 11 to 15. If both oral and intravenous CIWA medications ordered, use intravenous if unable to tolerate oral equivalent. Reassess CIWA one hour after each dose of medication and as needed.
Or LORazepam (ATIVAN) tablet 3 mgJump to med 3 mg, Oral, EVERY 1 HOUR PRN (WITHDRAWAL), For alcohol withdrawal., Starting on Thu04/02/21 at 0219
For CIWA score 16 to 20. Reassess CIWA one hour after each dose of medication and as needed.
Or LORazepam (ATIVAN) injection 3 mgJump to med 3 mg, IntraVENous, EVERY 1 HOUR PRN (WITHDRAWAL), Withdrawal, For alcohol withdrawal., Starting on Thu04/02/21 at 0219
For CIWA score 16 to 20. If both oral and intravenous CIWA medications ordered, use intravenous if unable to tolerate oral equivalent. Reassess CIWA one hour after each dose of medication and as needed.
Or LORazepam (ATIVAN) tablet 4 mgJump to med 4 mg, Oral, EVERY 1 HOUR PRN (WITHDRAWAL), For alcohol withdrawal., Starting on Thu04/02/21 at 0219
For CIWA score greater than 20. Reassess CIWA one hour after each dose of medication and as needed.
Or LORazepam (ATIVAN) injection 4 mgJump to med 4 mg, IntraVENous, EVERY 1 HOUR PRN (WITHDRAWAL), Withdrawal, For alcohol withdrawal., Starting on Thu04/02/21 at 0219
For CIWA score greater than 20. If both oral and intravenous CIWA medications ordered, use intravenous if unable to tolerate oral equivalent. Reassess CIWA one hour after each dose of medication and as needed.
Group 4: ondansetron (ZOFRAN-ODT) disintegrating tablet 4 mgJump to med 4 mg, Oral, EVERY 8 HOURS PRN, Nausea, Vomiting, Starting on Thu04/02/21 at 0731 Or ondansetron (ZOFRAN) injection 4 mgJump to med 4 mg, IntraVENous, EVERY 6 HOURS PRN, Nausea, Vomiting, Starting on Thu04/02/21 at 0731
Administer if oral route cannot be used.
<item> Privacy Markings (unrecogniz ed section and content) Section Author: Melyssa Daniel PROHIBITION ON REDISCLOSURE OF CONFIDENTIAL INFORMATION This notice accompanies a disclosure of information concerning a client made to you with the consent of such client. Source Comments (unrecognize d section and content) In the event this informatio n is protected by the Federal Confidentiality of Alcohol and Drug Abuse Patient Records regulations: The Federal rules restrict any use of the information to criminally investigate or prosecute any alcohol or drug abuse patient.[facility] the event this information is protected by the Federal Confidentiality of Alcohol and Drug Abuse Patient Records regulations: The Federal rules restrict any use of the information to criminally investigate or prosecute any alcohol or drug abuse patient.[facility]In the event this information is protected by the Federal Confidentiality of Alcohol and Drug Abuse Patient Records regulations: The Federal rules restrict any use of the information to criminally investigate or prosecute any alcohol or drug abuse patient.[facility]In the event this information is protected by the Federal Confidentiality of Alcohol and Drug Abuse Patient Records regulations: The Federal rules restrict any use of the information to criminally investigate or prosecute any alcohol or drug abuse patient.[facility]In the event this information is protected by the Federal Confidentiality of Alcohol and Drug Abuse Patient Records regulations: The Federal rules restrict any use of the information to criminally investigate or prosecute any alcohol or drug abuse patient.[facility]In the event this information is protected by the Federal Confidentiality of Alcohol and Drug Abuse Patient Records regulations: The Federal rules restrict any use of the information to criminally investigate or prosecute any alcohol or drug abuse patient.[facility]In the event this information is protected by the Federal Confidentiality of Alcohol and Drug Abuse Patient Records regulations: The Federal rules restrict any use of the information to criminally investigate or prosecute any alcohol or drug abuse patient.[facility]In the event this information is protected by the Federal Confidentiality of Alcohol and Drug Abuse Patient Records regulations: The Federal rules restrict any use of the information to criminally investigate or prosecute any alcohol or drug abuse patient.[facility]In the event this information is protected by the Federal Confidentiality of Alcohol and Drug Abuse Patient Records regulations: The Federal rules restrict any use of the information to criminally investigate or prosecute any alcohol or drug abuse patient.[facility]In the event this information is protected by the Federal Confidentiality of Alcohol and Drug Abuse Patient Records regulations: The Federal rules restrict any use of the information to criminally investigate or prosecute any alcohol or drug abuse patient.[facility]In the event this information is protected by the Federal Confidentiality of Alcohol and Drug Abuse Patient Records regulations: The Federal rules restrict any use of the information to criminally investigate or prosecute any alcohol or drug abuse patient.[facility]In the event this information is protected by the Federal Confidentiality of Alcohol and Drug Abuse Patient Records regulations: The Federal rules restrict any use of the information to criminally investigate or prosecute any alcohol or drug abuse patient.[facility]In the event this information is protected by the Federal Confidentiality of Alcohol and Drug Abuse Patient Records regulations: The Federal rules restrict any use of the information to criminally investigate or prosecute any alcohol or drug abuse patient.[facility]In the event this information is protected by the Federal Confidentiality of Alcohol and Drug Abuse Patient Records regulations: The Federal rules restrict any use of the information to criminally investigate or prosecute any alcohol or drug abuse patient.[facility]In the event this information is protected by the Federal Confidentiality of Alcohol and Drug Abuse Patient Records regulations: The Federal rules restrict any use of the information to criminally investigate or prosecute any alcohol or drug abuse patient.[facility]In the event this information is protected by the Federal Confidentiality of Alcohol and Drug Abuse Patient Records regulations: The Federal rules restrict any use of the information to criminally investigate or prosecute any alcohol or drug abuse patient.[facility]In the event this information is protected by the Federal Confidentiality of Alcohol and Drug Abuse Patient Records regulations: The Federal rules restrict any use of the information to criminally investigate or prosecute any alcohol or drug abuse patient.[facility]In the event this information is protected by the Federal Confidentiality of Alcohol and Drug Abuse Patient Records regulations: The Federal rules restrict any use of the information to criminally investigate or prosecute any alcohol or drug abuse patient.[facility]In the event this information is protected by the Federal Confidentiality of Alcohol and Drug Abuse Patient Records regulations: The Federal rules restrict any use of the information to criminally investigate or prosecute any alcohol or drug abuse patient.[facility]In the event this information is protected by the Federal Confidentiality of Alcohol and Drug Abuse Patient Records regulations: The Federal rules restrict any use of the information to criminally investigate or prosecute any alcohol or drug abuse patient.[facility]In the event this information is protected by the Federal Confidentiality of Alcohol and Drug Abuse Patient Records regulations: The Federal rules restrict any use of the information to criminally investigate or prosecute any alcohol or drug abuse patient.[facility]In the event this information is protected by the Federal Confidentiality of Alcohol and Drug Abuse Patient Records regulations: The Federal rules restrict any use of the information to criminally investigate or prosecute any alcohol or drug abuse patient.[facility]In the event this information is protected by the Federal Confidentiality of Alcohol and Drug Abuse Patient Records regulations: The Federal rules restrict any use of the information to criminally investigate or prosecute any alcohol or drug abuse patient.[facility]In the event this information is protected by the Federal Confidentiality of Alcohol and Drug Abuse Patient Records regulations: The Federal rules restrict any use of the information to criminally investigate or prosecute any alcohol or drug abuse patient.[facility]In the event this information is protected by the Federal Confidentiality of Alcohol and Drug Abuse Patient Records regulations: The Federal rules restrict any use of the information to criminally investigate or prosecute any alcohol or drug abuse patient.[facility] HospitalIn the event this information is protected by the Federal Confidentiality of Alcohol and Drug Abuse Patient Records regulations: The Federal rules restrict any use of the information to criminally investigate or prosecute any alcohol or drug abuse patient.[facility] HospitalIn the event this information is protected by the Federal Confidentiality of Alcohol and Drug Abuse Patient Records regulations: The Federal rules restrict any use of the information to criminally investigate or prosecute any alcohol or drug abuse patient.[facility] HospitalIn the event this information is protected by the Federal Confidentiality of Alcohol and Drug Abuse Patient Records regulations: The Federal rules restrict any use of the information to criminally investigate or prosecute any alcohol or drug abuse patient.[facility]In the event this information is protected by the Federal Confidentiality of Alcohol and Drug Abuse Patient Records regulations: The Federal rules restrict any use of the information to criminally investigate or prosecute any alcohol or drug abuse patient.[facility]In the event this information is protected by the Federal Confidentiality of Alcohol and Drug Abuse Patient Records regulations: The Federal rules restrict any use of the information to criminally investigate or prosecute any alcohol or drug abuse patient.[facility]In the event this information is protected by the Federal Confidentiality of Alcohol and Drug Abuse Patient Records regulations: The Federal rules restrict any use of the information to criminally investigate or prosecute any alcohol or drug abuse patient.[facility]In the event this information is protected by the Federal Confidentiality of Alcohol and Drug Abuse Patient Records regulations: The Federal rules restrict any use of the information to criminally investigate or prosecute any alcohol or drug abuse patient.[facility]In the event this information is protected by the Federal Confidentiality of Alcohol and Drug Abuse Patient Records regulations: The Federal rules restrict any use of the information to criminally investigate or prosecute any alcohol or drug abuse patient.[facility]In the event this information is protected by the Federal Confidentiality of Alcohol and Drug Abuse Patient Records regulations: The Federal rules restrict any use of the information to criminally investigate or prosecute any alcohol or drug abuse patient.[facility]In the event this information is protected by the Federal Confidentiality of Alcohol and Drug Abuse Patient Records regulations: The Federal rules restrict any use of the information to criminally investigate or prosecute any alcohol or drug abuse patient.[facility]In the event this information is protected by the Federal Confidentiality of Alcohol and Drug Abuse Patient Records regulations: The Federal rules restrict any use of the information to criminally investigate or prosecute any alcohol or drug abuse patient.[facility] the event this information is protected by the Federal Confidentiality of Alcohol and Drug Abuse Patient Records regulations: The Federal rules restrict any use of the information to criminally investigate or prosecute any alcohol or drug abuse patient.[facility]In the event this information is protected by the Federal Confidentiality of Alcohol and Drug Abuse Patient Records regulations: The Federal rules restrict any use of the information to criminally investigate or prosecute any alcohol or drug abuse patient.[facility]In the event this information is protected by the Federal Confidentiality of Alcohol and Drug Abuse Patient Records regulations: The Federal rules restrict any use of the information to criminally investigate or prosecute any alcohol or drug abuse patient.[facility]In the event this information is protected by the Federal Confidentiality of Alcohol and Drug Abuse Patient Records regulations: The Federal rules restrict any use of the information to criminally investigate or prosecute any alcohol or drug abuse patient.[facility]In the event this information is protected by the Federal Confidentiality of Alcohol and Drug Abuse Patient Records regulations: The Federal rules restrict any use of the information to criminally investigate or prosecute any alcohol or drug abuse patient.[facility]In the event this information is protected by the Federal Confidentiality of Alcohol and Drug Abuse Patient Records regulations: The Federal rules restrict any use of the information to criminally investigate or prosecute any alcohol or drug abuse patient.[facility]In the event this information is protected by the Federal Confidentiality of Alcohol and Drug Abuse Patient Records regulations: The Federal rules restrict any use of the information to criminally investigate or prosecute any alcohol or drug abuse patient.[facility]In the event this information is protected by the Federal Confidentiality of Alcohol and Drug Abuse Patient Records regulations: The Federal rules restrict any use of the information to criminally investigate or prosecute any alcohol or drug abuse patient.[facility]In the event this information is protected by the Federal Confidentiality of Alcohol and Drug Abuse Patient Records regulations: The Federal rules restrict any use of the information to criminally investigate or prosecute any alcohol or drug abuse patient.[facility]In the event this information is protected by the Federal Confidentiality of Alcohol and Drug Abuse Patient Records regulations: The Federal rules restrict any use of the information to criminally investigate or prosecute any alcohol or drug abuse patient.[facility]In the event this information is protected by the Federal Confidentiality of Alcohol and Drug Abuse Patient Records regulations: The Federal rules restrict any use of the information to criminally investigate or prosecute any alcohol or drug abuse patient.[facility]In the event this information is protected by the Federal Confidentiality of Alcohol and Drug Abuse Patient Records regulations: The Federal rules restrict any use of the information to criminally investigate or prosecute any alcohol or drug abuse patient.[facility]In the event this information is protected by the Federal Confidentiality of Alcohol and Drug Abuse Patient Records regulations: The Federal rules restrict any use of the information to criminally investigate or prosecute any alcohol or drug abuse patient.[facility]In the event this information is protected by the Federal Confidentiality of Alcohol and Drug Abuse Patient Records regulations: The Federal rules restrict any use of the information to criminally investigate or prosecute any alcohol or drug abuse patient.[facility]In the event this information is protected by the Federal Confidentiality of Alcohol and Drug Abuse Patient Records regulations: The Federal rules restrict any use of the information to criminally investigate or prosecute any alcohol or drug abuse patient.[facility]In the event this information is protected by the Federal Confidentiality of Alcohol and Drug Abuse Patient Records regulations: The Federal rules restrict any use of the information to criminally investigate or prosecute any alcohol or drug abuse patient.[facility]In the event this information is protected by the Federal Confidentiality of Alcohol and Drug Abuse Patient Records regulations: The Federal rules restrict any use of the information to criminally investigate or prosecute any alcohol or drug abuse patient.[facility]In the event this information is protected by the Federal Confidentiality of Alcohol and Drug Abuse Patient Records regulations: The Federal rules restrict any use of the information to criminally investigate or prosecute any alcohol or drug abuse patient.[facility]In the event this information is protected by the Federal Confidentiality of Alcohol and Drug Abuse Patient Records regulations: The Federal rules restrict any use of the information to criminally investigate or prosecute any alcohol or drug abuse patient.[facility]In the event this information is protected by the Federal Confidentiality of Alcohol and Drug Abuse Patient Records regulations: The Federal rules restrict any use of the information to criminally investigate or prosecute any alcohol or drug abuse patient.[facility]In the event this information is protected by the Federal Confidentiality of Alcohol and Drug Abuse Patient Records regulations: The Federal rules restrict any use of the information to criminally investigate or prosecute any alcohol or drug abuse patient.[facility]In the event this information is protected by the Federal Confidentiality of Alcohol and Drug Abuse Patient Records regulations: The Federal rules restrict any use of the information to criminally investigate or prosecute any alcohol or drug abuse patient.[facility]In the event this information is protected by the Federal Confidentiality of Alcohol and Drug Abuse Patient Records regulations: The Federal rules restrict any use of the information to criminally investigate or prosecute any alcohol or drug abuse patient.[facility]In the event this information is protected by the Federal Confidentiality of Alcohol and Drug Abuse Patient Records regulations: The Federal rules restrict any use of the information to criminally investigate or prosecute any alcohol or drug abuse patient.[facility]In the event this information is protected by the Federal Confidentiality of Alcohol and Drug Abuse Patient Records regulations: The Federal rules restrict any use of the information to criminally investigate or prosecute any alcohol or drug abuse patient.[facility]In the event this information is protected by the Federal Confidentiality of Alcohol and Drug Abuse Patient Records regulations: The Federal rules restrict any use of the information to criminally investigate or prosecute any alcohol or drug abuse patient.[facility]In the event this information is protected by the Federal Confidentiality of Alcohol and Drug Abuse Patient Records regulations: The Federal rules restrict any use of the information to criminally investigate or prosecute any alcohol or drug abuse patient.[facility]In the event this information is protected by the Federal Confidentiality of Alcohol and Drug Abuse Patient Records regulations: The Federal rules restrict any use of the information to criminally investigate or prosecute any alcohol or drug abuse patient.[facility]In the event this information is protected by the Federal Confidentiality of Alcohol and Drug Abuse Patient Records regulations: The Federal rules restrict any use of the information to criminally investigate or prosecute any alcohol or drug abuse patient.[facility]In the event this information is protected by the Federal Confidentiality of Alcohol and Drug Abuse Patient Records regulations: The Federal rules restrict any use of the information to criminally investigate or prosecute any alcohol or drug abuse patient.[facility]In the event this information is protected by the Federal Confidentiality of Alcohol and Drug Abuse Patient Records regulations: The Federal rules restrict any use of the information to criminally investigate or prosecute any alcohol or drug abuse patient.[facility]In the event this information is protected by the Federal Confidentiality of Alcohol and Drug Abuse Patient Records regulations: The Federal rules restrict any use of the information to criminally investigate or prosecute any alcohol or drug abuse patient.[facility]In the event this information is protected by the Federal Confidentiality of Alcohol and Drug Abuse Patient Records regulations: The Federal rules restrict any use of the information to criminally investigate or prosecute any alcohol or drug abuse patient.[facility]In the event this information is protected by the Federal Confidentiality of Alcohol and Drug Abuse Patient Records regulations: The Federal rules restrict any use of the information to criminally investigate or prosecute any alcohol or drug abuse patient.[facility]In the event this information is protected by the Federal Confidentiality of Alcohol and Drug Abuse Patient Records regulations: The Federal rules restrict any use of the information to criminally investigate or prosecute any alcohol or drug abuse patient.[facility]In the event this information is protected by the Federal Confidentiality of Alcohol and Drug Abuse Patient Records regulations: The Federal rules restrict any use of the information to criminally investigate or prosecute any alcohol or drug abuse patient.[facility]In the event this information is protected by the Federal Confidentiality of Alcohol and Drug Abuse Patient Records regulations: The Federal rules restrict any use of the information to criminally investigate or prosecute any alcohol or drug abuse patient.[facility]In the event this information is protected by the Federal Confidentiality of Alcohol and Drug Abuse Patient Records regulations: The Federal rules restrict any use of the information to criminally investigate or prosecute any alcohol or drug abuse patient.[facility] [facility] the event this information is protected by the Federal Confidentiality of Alcohol and Drug Abuse Patient Records regulations: The Federal rules restrict any use of the information to criminally investigate or prosecute any alcohol or drug abuse patient.[facility]In the event this information is protected by the Federal Confidentiality of Alcohol and Drug Abuse Patient Records regulations: The Federal rules restrict any use of the information to criminally investigate or prosecute any alcohol or drug abuse patient.[facility]In the event this information is protected by the Federal Confidentiality of Alcohol and Drug Abuse Patient Records regulations: The Federal rules restrict any use of the information to criminally investigate or prosecute any alcohol or drug abuse patient.[facility]In the event this information is protected by the Federal Confidentiality of Alcohol and Drug Abuse Patient Records regulations: The Federal rules restrict any use of the information to criminally investigate or prosecute any alcohol or drug abuse patient.[facility]In the event this information is protected by the Federal Confidentiality of Alcohol and Drug Abuse Patient Records regulations: The Federal rules restrict any use of the information to criminally investigate or prosecute any alcohol or drug abuse patient.[facility]In the event this information is protected by the Federal Confidentiality of Alcohol and Drug Abuse Patient Records regulations: The Federal rules restrict any use of the information to criminally investigate or prosecute any alcohol or drug abuse patient.[facility]In the event this information is protected by the Federal Confidentiality of Alcohol and Drug Abuse Patient Records regulations: The Federal rules restrict any use of the information to criminally investigate or prosecute any alcohol or drug abuse patient.[facility]In the event this information is protected by the Federal Confidentiality of Alcohol and Drug Abuse Patient Records regulations: The Federal rules restrict any use of the information to criminally investigate or prosecute any alcohol or drug abuse patient.[facility]In the event this information is protected by the Federal Confidentiality of Alcohol and Drug Abuse Patient Records regulations: The Federal rules restrict any use of the information to criminally investigate or prosecute any alcohol or drug abuse patient.[facility]In the event this information is protected by the Federal Confidentiality of Alcohol and Drug Abuse Patient Records regulations: The Federal rules restrict any use of the information to criminally investigate or prosecute any alcohol or drug abuse patient.[facility]In the event this information is protected by the Federal Confidentiality of Alcohol and Drug Abuse Patient Records regulations: The Federal rules restrict any use of the information to criminally investigate or prosecute any alcohol or drug abuse patient.[facility]In the event this information is protected by the Federal Confidentiality of Alcohol and Drug Abuse Patient Records regulations: The Federal rules restrict any use of the information to criminally investigate or prosecute any alcohol or drug abuse patient.[facility] the event this information is protected by the Federal Confidentiality of Alcohol and Drug Abuse Patient Records regulations: The Federal rules restrict any use of the information to criminally investigate or prosecute any alcohol or drug abuse patient.[facility]In the event this information is protected by the Federal Confidentiality of Alcohol and Drug Abuse Patient Records regulations: The Federal rules restrict any use of the information to criminally investigate or prosecute any alcohol or drug abuse patient.[facility]In the event this information is protected by the Federal Confidentiality of Alcohol and Drug Abuse Patient Records regulations: The Federal rules restrict any use of the information to criminally investigate or prosecute any alcohol or drug abuse patient.[facility]In the event this information is protected by the Federal Confidentiality of Alcohol and Drug Abuse Patient Records regulations: The Federal rules restrict any use of the information to criminally investigate or prosecute any alcohol or drug abuse patient.[facility]In the event this information is protected by the Federal Confidentiality of Alcohol and Drug Abuse Patient Records regulations: The Federal rules restrict any use of the information to criminally investigate or prosecute any alcohol or drug abuse patient.[facility]In the event this information is protected by the Federal Confidentiality of Alcohol and Drug Abuse Patient Records regulations: The Federal rules restrict any use of the information to criminally investigate or prosecute any alcohol or drug abuse patient.[facility]In the event this information is protected by the Federal Confidentiality of Alcohol and Drug Abuse Patient Records regulations: The Federal rules restrict any use of the information to criminally investigate or prosecute any alcohol or drug abuse patient.[facility]In the event this information is protected by the Federal Confidentiality of Alcohol and Drug Abuse Patient Records regulations: The Federal rules restrict any use of the information to criminally investigate or prosecute any alcohol or drug abuse patient.[facility]In the event this information is protected by the Federal Confidentiality of Alcohol and Drug Abuse Patient Records regulations: The Federal rules restrict any use of the information to criminally investigate or prosecute any alcohol or drug abuse patient.[facility]In the event this information is protected by the Federal Confidentiality of Alcohol and Drug Abuse Patient Records regulations: The Federal rules restrict any use of the information to criminally investigate or prosecute any alcohol or drug abuse patient.[facility]In the event this information is protected by the Federal Confidentiality of Alcohol and Drug Abuse Patient Records regulations: The Federal rules restrict any use of the information to criminally investigate or prosecute any alcohol or drug abuse patient.[facility]In the event this information is protected by the Federal Confidentiality of Alcohol and Drug Abuse Patient Records regulations: The Federal rules restrict any use of the information to criminally investigate or prosecute any alcohol or drug abuse patient.[facility]In the event this information is protected by the Federal Confidentiality of Alcohol and Drug Abuse Patient Records regulations: The Federal rules restrict any use of the information to criminally investigate or prosecute any alcohol or drug abuse patient.[facility]In the event this information is protected by the Federal Confidentiality of Alcohol and Drug Abuse Patient Records regulations: The Federal rules restrict any use of the information to criminally investigate or prosecute any alcohol or drug abuse patient.[facility]In the event this information is protected by the Federal Confidentiality of Alcohol and Drug Abuse Patient Records regulations: The Federal rules restrict any use of the information to criminally investigate or prosecute any alcohol or drug abuse patient.[facility]In the event this information is protected by the Federal Confidentiality of Alcohol and Drug Abuse Patient Records regulations: The Federal rules restrict any use of the information to criminally investigate or prosecute any alcohol or drug abuse patient.[facility]In the event this information is protected by the Federal Confidentiality of Alcohol and Drug Abuse Patient Records regulations: The Federal rules restrict any use of the information to criminally investigate or prosecute any alcohol or drug abuse patient.[facility]In the event this information is protected by the Federal Confidentiality of Alcohol and Drug Abuse Patient Records regulations: The Federal rules restrict any use of the information to criminally investigate or prosecute any alcohol or drug abuse patient.[facility]In the event this information is protected by the Federal Confidentiality of Alcohol and Drug Abuse Patient Records regulations: The Federal rules restrict any use of the information to criminally investigate or prosecute any alcohol or drug abuse patient.[facility]In the event this information is protected by the Federal Confidentiality of Alcohol and Drug Abuse Patient Records regulations: The Federal rules restrict any use of the information to criminally investigate or prosecute any alcohol or drug abuse patient.[facility]In the event this information is protected by the Federal Confidentiality of Alcohol and Drug Abuse Patient Records regulations: The Federal rules restrict any use of the information to criminally investigate or prosecute any alcohol or drug abuse patient.[facility]In the event this information is protected by the Federal Confidentiality of Alcohol and Drug Abuse Patient Records regulations: The Federal rules restrict any use of the information to criminally investigate or prosecute any alcohol or drug abuse patient.[facility]In the event this information is protected by the Federal Confidentiality of Alcohol and Drug Abuse Patient Records regulations: The Federal rules restrict any use of the information to criminally investigate or prosecute any alcohol or drug abuse patient.[facility]In the event this information is protected by the Federal Confidentiality of Alcohol and Drug Abuse Patient Records regulations: The Federal rules restrict any use of the information to criminally investigate or prosecute any alcohol or drug abuse patient.[facility]In the event this information is protected by the Federal Confidentiality of Alcohol and Drug Abuse Patient Records regulations: The Federal rules restrict any use of the information to criminally investigate or prosecute any alcohol or drug abuse patient.[facility]In the event this information is protected by the Federal Confidentiality of Alcohol and Drug Abuse Patient Records regulations: The Federal rules restrict any use of the information to criminally investigate or prosecute any alcohol or drug abuse patient.[facility]In the event this information is protected by the Federal Confidentiality of Alcohol and Drug Abuse Patient Records regulations: The Federal rules restrict any use of the information to criminally investigate or prosecute any alcohol or drug abuse patient.[facility]In the event this information is protected by the Federal Confidentiality of Alcohol and Drug Abuse Patient Records regulations: The Federal rules restrict any use of the information to criminally investigate or prosecute any alcohol or drug abuse patient.[facility]In the event this information is protected by the Federal Confidentiality of Alcohol and Drug Abuse Patient Records regulations: The Federal rules restrict any use of the information to criminally investigate or prosecute any alcohol or drug abuse patient.[facility]In the event this information is protected by the Federal Confidentiality of Alcohol and Drug Abuse Patient Records regulations: The Federal rules restrict any use of the information to criminally investigate or prosecute any alcohol or drug abuse patient.[facility]In the event this information is protected by the Federal Confidentiality of Alcohol and Drug Abuse Patient Records regulations: The Federal rules restrict any use of the information to criminally investigate or prosecute any alcohol or drug abuse patient.[facility]In the event this information is protected by the Federal Confidentiality of Alcohol and Drug Abuse Patient Records regulations: The Federal rules restrict any use of the information to criminally investigate or prosecute any alcohol or drug abuse patient.[facility]In the event this information is protected by the Federal Confidentiality of Alcohol and Drug Abuse Patient Records regulations: The Federal rules restrict any use of the information to criminally investigate or prosecute any alcohol or drug abuse patient.[facility]In the event this information is protected by the Federal Confidentiality of Alcohol and Drug Abuse Patient Records regulations: The Federal rules restrict any use of the information to criminally investigate or prosecute any alcohol or drug abuse patient.[facility]In the event this information is protected by the Federal Confidentiality of Alcohol and Drug Abuse Patient Records regulations: The Federal rules restrict any use of the information to criminally investigate or prosecute any alcohol or drug abuse patient.[facility]In the event this information is protected by the Federal Confidentiality of Alcohol and Drug Abuse Patient Records regulations: The Federal rules restrict any use of the information to criminally investigate or prosecute any alcohol or drug abuse patient.[facility]In the event this information is protected by the Federal Confidentiality of Alcohol and Drug Abuse Patient Records regulations: The Federal rules restrict any use of the information to criminally investigate or prosecute any alcohol or drug abuse patient.[facility]In the event this information is protected by the Federal Confidentiality of Alcohol and Drug Abuse Patient Records regulations: The Federal rules restrict any use of the information to criminally investigate or prosecute any alcohol or drug abuse patient.[facility]In the event this information is protected by the Federal Confidentiality of Alcohol and Drug Abuse Patient Records regulations: The Federal rules restrict any use of the information to criminally investigate or prosecute any alcohol or drug abuse patient.[facility]In the event this information is protected by the Federal Confidentiality of Alcohol and Drug Abuse Patient Records regulations: The Federal rules restrict any use of the information to criminally investigate or prosecute any alcohol or drug abuse patient.[facility]In the event this information is protected by the Federal Confidentiality of Alcohol and Drug Abuse Patient Records regulations: The Federal rules restrict any use of the information to criminally investigate or prosecute any alcohol or drug abuse patient.[facility]In the event this information is protected by the Federal Confidentiality of Alcohol and Drug Abuse Patient Records regulations: The Federal rules restrict any use of the information to criminally investigate or prosecute any alcohol or drug abuse patient.[facility]In the event this information is protected by the Federal Confidentiality of Alcohol and Drug Abuse Patient Records regulations: The Federal rules restrict any use of the information to criminally investigate or prosecute any alcohol or drug abuse patient.[facility]In the event this information is protected by the Federal Confidentiality of Alcohol and Drug Abuse Patient Records regulations: The Federal rules restrict any use of the information to criminally investigate or prosecute any alcohol or drug abuse patient.[facility]In the event this information is protected by the Federal Confidentiality of Alcohol and Drug Abuse Patient Records regulations: The Federal rules restrict any use of the information to criminally investigate or prosecute any alcohol or drug abuse patient.[facility]In the event this information is protected by the Federal Confidentiality of Alcohol and Drug Abuse Patient Records regulations: The Federal rules restrict any use of the information to criminally investigate or prosecute any alcohol or drug abuse patient.[facility]In the event this information is protected by the Federal Confidentiality of Alcohol and Drug Abuse Patient Records regulations: The Federal rules restrict any use of the information to criminally investigate or prosecute any alcohol or drug abuse patient.[facility]In the event this information is protected by the Federal Confidentiality of Alcohol and Drug Abuse Patient Records regulations: The Federal rules restrict any use of the information to criminally investigate or prosecute any alcohol or drug abuse patient.[facility]In the event this information is protected by the Federal Confidentiality of Alcohol and Drug Abuse Patient Records regulations: The Federal rules restrict any use of the information to criminally investigate or prosecute any alcohol or drug abuse patient.[facility]In the event this information is protected by the Federal Confidentiality of Alcohol and Drug Abuse Patient Records regulations: The Federal rules restrict any use of the information to criminally investigate or prosecute any alcohol or drug abuse patient.[facility] the event this information is protected by the Federal Confidentiality of Alcohol and Drug Abuse Patient Records regulations: The Federal rules restrict any use of the information to criminally investigate or prosecute any alcohol or drug abuse patient.[facility]In the event this information is protected by the Federal Confidentiality of Alcohol and Drug Abuse Patient Records regulations: The Federal rules restrict any use of the information to criminally investigate or prosecute any alcohol or drug abuse patient.[facility]In the event this information is protected by the Federal Confidentiality of Alcohol and Drug Abuse Patient Records regulations: The Federal rules restrict any use of the information to criminally investigate or prosecute any alcohol or drug abuse patient.[facility]In the event this information is protected by the Federal Confidentiality of Alcohol and Drug Abuse Patient Records regulations: The Federal rules restrict any use of the information to criminally investigate or prosecute any alcohol or drug abuse patient.[facility]In the event this information is protected by the Federal Confidentiality of Alcohol and Drug Abuse Patient Records regulations: The Federal rules restrict any use of the information to criminally investigate or prosecute any alcohol or drug abuse patient.[facility]In the event this information is protected by the Federal Confidentiality of Alcohol and Drug Abuse Patient Records regulations: The Federal rules restrict any use of the information to criminally investigate or prosecute any alcohol or drug abuse patient.[facility]In the event this information is protected by the Federal Confidentiality of Alcohol and Drug Abuse Patient Records regulations: The Federal rules restrict any use of the information to criminally investigate or prosecute any alcohol or drug abuse patient.[facility]In the event this information is protected by the Federal Confidentiality of Alcohol and Drug Abuse Patient Records regulations: The Federal rules restrict any use of the information to criminally investigate or prosecute any alcohol or drug abuse patient.[facility]In the event this information is protected by the Federal Confidentiality of Alcohol and Drug Abuse Patient Records regulations: The Federal rules restrict any use of the information to criminally investigate or prosecute any alcohol or drug abuse patient.[facility]In the event this information is protected by the Federal Confidentiality of Alcohol and Drug Abuse Patient Records regulations: The Federal rules restrict any use of the information to criminally investigate or prosecute any alcohol or drug abuse patient.[facility]In the event this information is protected by the Federal Confidentiality of Alcohol and Drug Abuse Patient Records regulations: The Federal rules restrict any use of the information to criminally investigate or prosecute any alcohol or drug abuse patient.[facility]In the event this information is protected by the Federal Confidentiality of Alcohol and Drug Abuse Patient Records regulations: The Federal rules restrict any use of the information to criminally investigate or prosecute any alcohol or drug abuse patient.[facility]In the event this information is protected by the Federal Confidentiality of Alcohol and Drug Abuse Patient Records regulations: The Federal rules restrict any use of the information to criminally investigate or prosecute any alcohol or drug abuse patient.[facility]In the event this information is protected by the Federal Confidentiality of Alcohol and Drug Abuse Patient Records regulations: The Federal rules restrict any use of the information to criminally investigate or prosecute any alcohol or drug abuse patient.[facility]In the event this information is protected by the Federal Confidentiality of Alcohol and Drug Abuse Patient Records regulations: The Federal rules restrict any use of the information to criminally investigate or prosecute any alcohol or drug abuse patient.[facility] HospitalIn the event this information is protected by the Federal Confidentiality of Alcohol and Drug Abuse Patient Records regulations: The Federal rules restrict any use of the information to criminally investigate or prosecute any alcohol or drug abuse patient.[facility] HospitalIn the event this information is protected by the Federal Confidentiality of Alcohol and Drug Abuse Patient Records regulations: The Federal rules restrict any use of the information to criminally investigate or prosecute any alcohol or drug abuse patient.[facility] HospitalIn the event this information is protected by the Federal Confidentiality of Alcohol and Drug Abuse Patient Records regulations: The Federal rules restrict any use of the information to criminally investigate or prosecute any alcohol or drug abuse patient.[facility] HospitalIn the event this information is protected by the Federal Confidentiality of Alcohol and Drug Abuse Patient Records regulations: The Federal rules restrict any use of the information to criminally investigate or prosecute any alcohol or drug abuse patient.[facility] HospitalIn the event this information is protected by the Federal Confidentiality of Alcohol and Drug Abuse Patient Records regulations: The Federal rules restrict any use of the information to criminally investigate or prosecute any alcohol or drug abuse patient.[facility] HospitalIn the event this information is protected by the Federal Confidentiality of Alcohol and Drug Abuse Patient Records regulations: The Federal rules restrict any use of the information to criminally investigate or prosecute any alcohol or drug abuse patient.[facility] HospitalIn the event this information is protected by the Federal Confidentiality of Alcohol and Drug Abuse Patient Records regulations: The Federal rules restrict any use of the information to criminally investigate or prosecute any alcohol or drug abuse patient.[facility] HospitalIn the event this information is protected by the Federal Confidentiality of Alcohol and Drug Abuse Patient Records regulations: The Federal rules restrict any use of the information to criminally investigate or prosecute any alcohol or drug abuse patient.[facility] HospitalIn the event this information is protected by the Federal Confidentiality of Alcohol and Drug Abuse Patient Records regulations: The Federal rules restrict any use of the information to criminally investigate or prosecute any alcohol or drug abuse patient.[facility] HospitalIn the event this information is protected by the Federal Confidentiality of Alcohol and Drug Abuse Patient Records regulations: The Federal rules restrict any use of the information to criminally investigate or prosecute any alcohol or drug abuse patient.[facility] HospitalIn the event this information is protected by the Federal Confidentiality of Alcohol and Drug Abuse Patient Records regulations: The Federal rules restrict any use of the information to criminally investigate or prosecute any alcohol or drug abuse patient.[facility] HospitalIn the event this information is protected by the Federal Confidentiality of Alcohol and Drug Abuse Patient Records regulations: The Federal rules restrict any use of the information to criminally investigate or prosecute any alcohol or drug abuse patient.[facility] HospitalIn the event this information is protected by the Federal Confidentiality of Alcohol and Drug Abuse Patient Records regulations: The Federal rules restrict any use of the information to criminally investigate or prosecute any alcohol or drug abuse patient.[facility] HospitalIn the event this information is protected by the Federal Confidentiality of Alcohol and Drug Abuse Patient Records regulations: The Federal rules restrict any use of the information to criminally investigate or prosecute any alcohol or drug abuse patient.[facility] HospitalIn the event this information is protected by the Federal Confidentiality of Alcohol and Drug Abuse Patient Records regulations: The Federal rules restrict any use of the information to criminally investigate or prosecute any alcohol or drug abuse patient.[facility] HospitalIn the event this information is protected by the Federal Confidentiality of Alcohol and Drug Abuse Patient Records regulations: The Federal rules restrict any use of the information to criminally investigate or prosecute any alcohol or drug abuse patient.[facility] HospitalIn the event this information is protected by the Federal Confidentiality of Alcohol and Drug Abuse Patient Records regulations: The Federal rules restrict any use of the information to criminally investigate or prosecute any alcohol or drug abuse patient.[facility] HospitalIn the event this information is protected by the Federal Confidentiality of Alcohol and Drug Abuse Patient Records regulations: The Federal rules restrict any use of the information to criminally investigate or prosecute any alcohol or drug abuse patient.[facility] HospitalIn the event this information is protected by the Federal Confidentiality of Alcohol and Drug Abuse Patient Records regulations: The Federal rules restrict any use of the information to criminally investigate or prosecute any alcohol or drug abuse patient.[facility] HospitalIn the event this information is protected by the Federal Confidentiality of Alcohol and Drug Abuse Patient Records regulations: The Federal rules restrict any use of the information to criminally investigate or prosecute any alcohol or drug abuse patient.[facility] HospitalIn the event this information is protected by the Federal Confidentiality of Alcohol and Drug Abuse Patient Records regulations: The Federal rules restrict any use of the information to criminally investigate or prosecute any alcohol or drug abuse patient.[facility] HospitalIn the event this information is protected by the Federal Confidentiality of Alcohol and Drug Abuse Patient Records regulations: The Federal rules restrict any use of the information to criminally investigate or prosecute any alcohol or drug abuse patient.[facility] Care Teams (unrecognized sec tion and content) Press Box Custodian Relationship Specialty Start Date End Date Wu Herrera MD [address] [place], [place] [id number] PCP - General Family Practice 07/31/20 Press Box Custodian Relationship Specialty Start Date End Date Wu Herrera MD [address] [place] [address] PCP - General Family Practice 07/31/20 Press Box Custodian Relationship Specialty Start Date End Date Wu Herrera MD [address] [facility] [place] [address] PCP - General Family Practice 07/31/20 Press Box Custodian Relationship Specialty Start Date End Date Wu Herrera MD [facility] [address] PCP - General Family Practice 07/31/20 Press Box Custodian Relationship Specialty Start Date End Date Wu Herrera MD [address] [place] [address] [place] [address] PCP - General Family Practice 07/31/20 Press Box Custodian Relationship Specialty Start Date End Date Wu Herrera MD [address] [place] [address] [place] [address] PCP - General Family Practice 07/31/20 Press Box Custodian Relationship Specialty Start Date End Date Wu Herrera MD [facility] [address] PCP - General Family Medicine 07/31/20 Press Box Custodian Relationship Specialty Start Date End Date Wu Herrera MD [address] [place] [address], [place] [address] PCP - General Family Medicine 07/31/20 Press Box Custodian Relationship Specialty Start Date End Date Wu Herrera MD [facility] [place] [address] PCP - General Family Medicine 07/31/20 Press Box Custodian Relationship Specialty Start Date End Date Wu Herrera MD [address] [place] [address], [place] [address] PCP - General Family Medicine 07/31/20 Press Box Custodian Relationship Specialty Start Date End Date Wu Herrera MD [address] [place] [address], [place] [address] PCP - General Family Medicine 07/31/20 Press Box Custodian Relationship Specialty Start Date End Date Wu Herrera MD [address] [place] [address], [place] [address] PCP - General Family Medicine 07/31/20 Press Box Custodian Relationship Specialty Start Date End Date Wu Herrera MD [address] [place] [address] PCP - General Family Medicine 07/31/20 Press Box Custodian Relationship Specialty Start Date End Date Wu Herrera MD [address] [place] [address] PCP - General Family Medicine 07/31/20 Press Box Custodian Relationship Specialty Start Date End Date Wu Herrera MD [address] [place] [address] PCP - General Family Medicine 07/31/20 Press Box Custodian Relationship Specialty Start Date End Date Wu Herrera MD [address] [place] [address] PCP - General Family Medicine 07/31/20 Press Box Custodian Relationship Specialty Start Date End Date Wu Herrera MD [address] [place] [address] PCP - General Family Medicine 07/31/20 Press Box Custodian Relationship Specialty Start Date End Date Wu Herrera MD [address] [place] [address] [place] [address] PCP - General Family Medicine 07/31/20 Press Box Custodian Relationship Specialty Start Date End Date Wu Herrera MD [address] [place] [address] [place] [address] PCP - General Family Medicine 07/31/20 Press Box Custodian Relationship Specialty Start Date End Date Wu Herrera MD [address] [facility] [place] [address] PCP - General Family Medicine 07/31/20 Press Box Custodian Relationship Specialty Start Date End Date Wu Herrera MD [address] [facility] [address] PCP - General Family Medicine 07/31/20 Press Box Custodian Relationship Specialty Start Date End Date Wu Herrera MD [address] [facility] [address] PCP - General Family Medicine 07/31/20 Press Box Custodian Relationship Specialty Start Date End Date Wu Herrera MD [address] [facility] [address] PCP - General Family Medicine 07/31/20 Press Box Custodian Relationship Specialty Start Date End Date Wu Herrera MD [address] [facility] [place] [address] PCP - General Family Medicine 07/31/20 Press Box Custodian Relationship Specialty Start Date End Date Wu Herrera MD [address] [facility] [address] PCP - General Family Medicine 07/31/20 Press Box Custodian Relationship Specialty Start Date End Date Wu Herrera MD [address] [facility] [place] [address] PCP - General Family Medicine 07/31/20 Press Box Custodian Relationship Specialty Start Date End Date Wu Herrera MD [address] [facility] [place] [address] PCP - General Family Medicine 07/31/20 Press Box Custodian Relationship Specialty Start Date End Date Wu Herrera MD [address] [place] [address] PCP - General Family Medicine 07/31/20 Press Box Custodian Relationship Specialty Start Date End Date Wu Herrera MD [address] [place] [address] PCP - General Family Medicine 07/31/20 Press Box Custodian Relationship Specialty Start Date End Date Wu Herrera MD [address] [place] [address] PCP - General Family Medicine 07/31/20 Press Box Custodian Relationship Specialty Start Date End Date Wu Herrera MD [address] [place] [address] PCP - General Family Medicine 07/31/20 Press Box Custodian Relationship Specialty Start Date End Date Wu Herrera MD [address] [place] [address] PCP - General Family Medicine 07/31/20 Press Box Custodian Relationship Specialty Start Date End Date Wu Herrera MD [address] [place] [address] PCP - General Family Medicine 07/31/20 Press Box Custodian Relationship Specialty Start Date End Date Wu Herrera MD [address] [place] [address] PCP - General Family Medicine 07/31/20 Press Box Custodian Relationship Specialty Start Date End Date Wu Herrera MD [address] [place] [address] PCP - General Family Medicine 07/31/20 Press Box Custodian Relationship Specialty Start Date End Date Wu Herrera MD [address] [place] [address] PCP - General Family Medicine 07/31/20 Press Box Custodian Relationship Specialty Start Date End Date Wu Herrera MD [address] [place] [address] PCP - General Family Medicine 07/31/20 Press Box Custodian Relationship Specialty Start Date End Date Wu Herrera MD [address] [place] [address] PCP - General Family Medicine 07/31/20 Press Box Custodian Relationship Specialty Start Date End Date Wu Herrera MD [address] [place] [address] PCP - General Family Medicine 07/31/20 Press Box Custodian Relationship Specialty Start Date End Date Wu Herrera MD [address] [place] [address] PCP - General Family Medicine 07/31/20 Press Box Custodian Relationship Specialty Start Date End Date Wu Herrera MD [address] [place] [address] PCP - General Family Medicine 07/31/20 Press Box Custodian Relationship Specialty Start Date End Date Wu Herrera MD [address] [place] [address] PCP - General Family Medicine 07/31/20 Press Box Custodian Relationship Specialty Start Date End Date Wu Herrera MD [address] [place] [address] PCP - General Family Medicine 07/31/20 Press Box Custodian Relationship Specialty Start Date End Date Wu Herrera MD [address] [place] [address] PCP - General Family Medicine 07/31/20 Press Box Custodian Relationship Specialty Start Date End Date Wu Herrera MD [address] [place] [address] PCP - General Family Medicine 07/31/20 Press Box Custodian Relationship Specialty Start Date End Date Wu Herrera MD [address] [place] [address] PCP - General Family Medicine 07/31/20 Press Box Custodian Relationship Specialty Start Date End Date Wu Herrera MD [address] [place] [address] PCP - General Family Medicine 07/31/20 Press Box Custodian Relationship Specialty Start Date End Date Wu Herrera MD [address] [place] [address] PCP - General Family Medicine 07/31/20 Press Box Custodian Relationship Specialty Start Date End Date Wu Herrera MD [address] [place] [address] PCP - General Family Medicine 07/31/20 Press Box Custodian Relationship Specialty Start Date End Date Wu Herrera MD [address] [place] [address] PCP - General Family Medicine 07/31/20 Press Box Custodian Relationship Specialty Start Date End Date Wu Herrera MD [address] [place] [address] PCP - General Family Medicine 07/31/20 Press Box Custodian Relationship Specialty Start Date End Date Wu Herrera MD [address] [place] [address] PCP - General Family Medicine 07/31/20 Press Box Custodian Relationship Specialty Start Date End Date Wu Herrera MD [address] [place] [address] PCP - General Family Medicine 07/31/20 Press Box Custodian Relationship Specialty Start Date End Date Wu Herrera MD [address] [place] [address] PCP - General Family Medicine 07/31/20 Press Box Custodian Relationship Specialty Start Date End Date Wu Herrera MD [address] [place] [address] PCP - General Family Medicine 07/31/20 Press Box Custodian Relationship Specialty Start Date End Date Wu Herrera MD [address] [place] [address] PCP - General Family Medicine 07/31/20 Press Box Custodian Relationship Specialty Start Date End Date Wu Herrera MD [address] [place] [address] PCP - General Family Medicine 07/31/20 Press Box Custodian Relationship Specialty Start Date End Date Wu Herrera MD [address] [place] [address] PCP - General Family Medicine 07/31/20 Press Box Custodian Relationship Specialty Start Date End Date Wu Herrera MD [address] [place] [address] PCP - General Family Medicine 07/31/20 Press Box Custodian Relationship Specialty Start Date End Date Wu Herrera MD [address] [place] [address] PCP - General Family Medicine 07/31/20 Press Box Custodian Relationship Specialty Start Date End Date Wu Herrera MD [address] [place] [address] PCP - General Family Medicine 07/31/20 Press Box Custodian Relationship Specialty Start Date End Date Wu Herrera MD [address] [place] [address] PCP - General Family Medicine 07/31/20 Press Box Custodian Relationship Specialty Start Date End Date Wu Herrera MD [address] [place] [address] PCP - General Family Medicine 07/31/20 Press Box Custodian Relationship Specialty Start Date End Date Wu Herrera MD [address] [place] [address] PCP - General Family Medicine 07/31/20 Press Box Custodian Relationship Specialty Start Date End Date Wu Herrera MD [address] [place] [address] PCP - General Family Medicine 07/31/20 Press Box Custodian Relationship Specialty Start Date End Date Wu Herrera MD [address] [place] [address] PCP - General Family Medicine 07/31/20 Press Box Custodian Relationship Specialty Start Date End Date Wu Herrera MD [address] [facility] [address] PCP - General Family Medicine 07/31/20 Press Box Custodian Relationship Specialty Start Date End Date Wu Herrera MD [address] [facility] [address] PCP - General Family Medicine 07/31/20 Press Box Custodian Relationship Specialty Start Date End Date Wu Herrera MD [address] [facility] [address] PCP - General Family Medicine 07/31/20 Press Box Custodian Relationship Specialty Start Date End Date Wu Herrera MD [address] [facility] [address] PCP - General Family Medicine 07/31/20 Press Box Custodian Relationship Specialty Start Date End Date Wu Herrera MD [address] [facility] [address] PCP - General Family Medicine 07/31/20 Press Box Custodian Relationship Specialty Start Date End Date Wu Herrera MD [address] [facility] [place] [address] PCP - General Family Medicine 07/31/20 Press Box Custodian Relationship Specialty Start Date End Date Wu Herrera MD [address] [facility] [place] [address] PCP - General Family Medicine 07/31/20 Press Box Custodian Relationship Specialty Start Date End Date Wu Herrera MD [address] [facility] [place] [address] PCP - General Family Medicine 07/31/20 Press Box Custodian Relationship Specialty Start Date End Date Wu Herrera MD [address] [facility] [place] [address] PCP - General Family Medicine 07/31/20 Press Box Custodian Relationship Specialty Start Date End Date Wu Herrera MD [address] [place] [address] PCP - General Family Medicine 07/31/20 Press Box Custodian Relationship Specialty Start Date End Date Wu Herrera MD [address] [place] [address] PCP - General Family Medicine 07/31/20 Press Box Custodian Relationship Specialty Start Date End Date Generic Provider, No [place] [address] PCP - General Teacher Ballet 05/25/24 Press Box Custodian Relationship Specialty Start Date End Date Wu Herrera MD [address] [place] [address] PCP - General Family Medicine 07/31/20 Press Box Custodian Relationship Specialty Start Date End Date Wu Herrera MD [address] [place] [address] PCP - General Family Medicine 07/31/20 Press Box Custodian Relationship Specialty Start Date End Date Wu Herrera MD [address] [place] [address] PCP - General Family Medicine 07/31/20 Press Box Custodian Relationship Specialty Start Date End Date Wu Herrera MD [address] [place] [address] PCP - General Family Medicine 07/31/20 Frankie Varela, YOANA.OIL WELL CABLE TOOL OPERATOR [address] [place] [address] Pbx Technician Family Medicine 06/18/24 Dee Roca PA-C [address] [place] [address] Pbx Technician Family Medicine 06/18/24 Press Box Custodian Relationship Specialty Start Date End Date Wu Herrera MD [address] [place] [address] PCP - General Family Medicine 07/31/20 Frankie Varela APRN.OIL WELL CABLE TOOL OPERATOR [address] [place] [address] Pbx Technician Family Medicine 06/18/24 Dee Roca PA-C [address] [place] [address] Pbx Technician Family Medicine 06/18/24 Press Box Custodian Relationship Specialty Start Date End Date Wu Herrera MD [address] [place] [address] PCP - General Family Medicine 07/31/20 Frankie Varela APRN.OIL WELL CABLE TOOL OPERATOR [address] [place] [address] Pbx Technician Family Medicine 06/18/24 Dee Roca PA-C [address] [place] [address] Pbx Technician Family Medicine 06/18/24 Press Box Custodian Relationship Specialty Start Date End Date Wu Herrera MD [address] [place] [address] PCP - General Family Medicine 07/31/20 Frankie Varela, PROVIDER NETWORK ANALYST.OIL WELL CABLE TOOL OPERATOR [address] [place] [address] Pbx Technician Family Medicine 06/18/24 Dee Roca PA-C [address] [place] [address] [facility]/18/24 Press Box Custodian Relationship Specialty Start Date End Date Wu Herrera MD [address] [place] [address] PCP - General Family Medicine 07/31/20 Frankie Varela, PROVIDER NETWORK ANALYST.OIL WELL CABLE TOOL OPERATOR [address] [place] [address] Pbx Technician Family Medicine 06/18/24 Dee Roca PA-C [address] [place] [address] [facility] Press Box Custodian Relationship Specialty Start Date End Date Wu Herrera MD [address] [place] [address] PCP - General Family Medicine 07/31/20 Frankie Varela, PROVIDER NETWORK ANALYST.OIL WELL CABLE TOOL OPERATOR [address] [place] [address] Pbx Technician Family Medicine 06/18/24 Dee Roca PA-C [address] [facility] [place] [address] Pbx Technician Family Medicine 06/18/24 Press Box Custodian Relationship Specialty Start Date End Date Wu Herrera MD [address] [place] [address] PCP - General Family Medicine 07/31/20 Frankie Varela APRN.OIL WELL CABLE TOOL OPERATOR [address] [place] [address] Pbx Technician Family Medicine 06/18/24 Dee Roca PA-C [address] [place] [address] Pbx Technician Family Medicine 06/18/24 Press Box Custodian Relationship Specialty Start Date End Date Wu Herrera MD [address] [place] [address] PCP - General Family Medicine 07/31/20 Frankie Varela APRN.OIL WELL CABLE TOOL OPERATOR [address] [place] [address] Pbx Technician Family Medicine 06/18/24 Dee Roca PA-C [facility] [place] [address] Pbx Technician Family Medicine 06/18/24 Press Box Custodian Relationship Specialty Start Date End Date Wu Herrera MD [address] [place] [address] PCP - General Family Medicine 07/31/20 Frankie Varela APRN.OIL WELL CABLE TOOL OPERATOR [facility] [place] [address] Pbx Technician Family Medicine 06/18/24 Dee Roca PA-C [address] [place] [address] Pbx Technician Family Medicine 06/18/24 Press Box Custodian Relationship Specialty Start Date End Date Wu Herrera MD [address] [place] [address] PCP - General Family Medicine 07/31/20 Frankie Varela, YOANA.OIL WELL CABLE TOOL OPERATOR [address] [place] [address] Pbx Technician Family Medicine 06/18/24 Dee Roca PA-C [address] [place] [address] [facility] 06/18/24 Press Box Custodian Relationship Specialty Start Date End Date Wu Herrera MD [address] [place] [address] PCP - General Family Medicine 07/31/20 Frankie Varela, YOANA.OIL WELL CABLE TOOL OPERATOR [address] [place] [address] Pbx Technician Family Medicine 06/18/24 Dee Roca PA-C [address] [place] [address] Pbx Technician Family Medicine 06/18/24 Press Box Custodian Relationship Specialty Start Date End Date Wu Herrera MD [address] [place] [address] PCP - General Family Medicine 07/31/20 Frankie Varela, PROVIDER NETWORK ANALYST.OIL WELL CABLE TOOL OPERATOR [address] [place] [address] Pbx Technician Family Medicine 06/18/24 Dee Roca PA-C [address] [facility] [place] [address] Pbx Technician Family Medicine 06/18/24 Press Box Custodian Relationship Specialty Start Date End Date Wu Herrera MD [address] [facility] [place] [address] PCP - General Family Medicine 07/31/20 Frankie Varela APRN.OIL WELL CABLE TOOL OPERATOR [address] [place] [address] Pbx Technician Family Medicine 06/18/24 Dee Roca PA-C [address] [place] [address] Pbx Technician Family Medicine 06/18/24 Press Box Custodian Relationship Specialty Start Date End Date Wu Herrera MD [address] [place] [address] PCP - General Family Medicine 07/31/20 Frankie Varela, YOANA.OIL WELL CABLE TOOL OPERATOR [address] [place] [address] Pbx Technician Family Medicine 06/18/24 Dee Roca PA-C [address] [facility] [place] [address] Pbx Technician Family Medicine 06/18/24 Press Box Custodian Relationship Specialty Start Date End Date Wu Herrera MD [address] [facility] [place] [address] PCP - General Family Medicine 07/31/20 Frankie Varela, PROVIDER NETWORK ANALYST.OIL WELL CABLE TOOL OPERATOR [address] [place] [address] Pbx Technician Family Medicine 06/18/24 Dee Roca PA-C [address] [place] [address] Pbx Technician Family Medicine 06/18/24 Press Box Custodian Relationship Specialty Start Date End Date Wu Herrera MD [address] [place] [address] PCP - General Family Medicine 07/31/20 Frankie Varela APRN.OIL WELL CABLE TOOL OPERATOR [address] [place] [address] Pbx Technician Family Medicine 06/18/24 Dee Roca PA-C [address] [place] [address] Pbx Technician Family Medicine 06/18/24 Press Box Custodian Relationship Specialty Start Date End Date Wu Herrera MD [address] [place] [address] PCP - General Family Medicine 07/31/20 Frankie Varela APRN.OIL WELL CABLE TOOL OPERATOR [address] [place] [address] Pbx Technician Family Medicine 06/18/24 Dee Roca PA-C [address] [place] [address] Pbx Technician Family Medicine 06/18/24 Press Box Custodian Relationship Specialty Start Date End Date Wu Herrera MD [address] [place] [address] PCP - General Family Medicine 07/31/20 Frankie Varela, PROVIDER NETWORK ANALYST.OIL WELL CABLE TOOL OPERATOR [address] [place] [address] Pbx Technician Family Medicine 06/18/24 Dee Roca PA-C [address] [place] [address] Pbx Technician Family Medicine 06/18/24 Press Box Custodian Relationship Specialty Start Date End Date Wu Herrera MD [address] [place] [address] PCP - General Family Medicine 07/31/20 Frankie Varela, YOANA.OIL WELL CABLE TOOL OPERATOR [address] [place] [address] Pbx Technician Family Medicine 06/18/24 Dee Roca PA-C [address] [place] [address] Pbx Technician Family Medicine 06/18/24 Press Box Custodian Relationship Specialty Start Date End Date Wu Herrera MD [address] [place] [address] PCP - General Family Medicine 07/31/20 Frankie Varela, PROVIDER NETWORK ANALYST.OIL WELL CABLE TOOL OPERATOR [address] [place] [address] Pbx Technician Family Medicine 06/18/24 Dee Roca PA-C [address] [place] [address] Pbx Technician Family Medicine 06/18/24 Press Box Custodian Relationship Specialty Start Date End Date Wu Herrera MD [address] [place] [address] PCP - General Family Medicine 07/31/20 Frankie Varela APRN.OIL WELL CABLE TOOL OPERATOR [address] [place] [address] Pbx Technician Family Medicine 06/18/24 Dee Roca PA-C [address] [place] [address] Pbx Technician Family Medicine 06/18/24 Press Box Custodian Relationship Specialty Start Date End Date Wu Herrera MD [address] [place] [address] PCP - General Family Medicine 07/31/20 Frankie Varela APRN.OIL WELL CABLE TOOL OPERATOR [address] [place] [address] Pbx Technician Family Medicine 06/18/24 Dee Roca PA-C [address] [place] [address] Pbx Technician Family Medicine 06/18/24 Press Box Custodian Relationship Specialty Start Date End Date Wu Herrera MD [address] [place] [address] PCP - General Family Medicine 07/31/20 Frankie Varela APRN.OIL WELL CABLE TOOL OPERATOR [address] [place] [address] Pbx Technician Family Medicine 06/18/24 Dee Roca PA-C [address] [place] [address] [facility] 06/18/24 Press Box Custodian Relationship Specialty Start Date End Date Wu Herrera MD [address] [place] [address] PCP - General Family Medicine 07/31/20 Frankie Varela APRN.OIL WELL CABLE TOOL OPERATOR [address] [place] [address] Pbx Technician Family [facility] 06/18/24 Dee Roca PA-C [address] [place] [address] [facility] 06/18/24 Press Box Custodian Relationship Specialty Start Date End Date Wu Herrera MD [address] [place] [address] PCP - General Family Medicine 07/31/20 Frankie Varela APRN.OIL WELL CABLE TOOL OPERATOR [address] [place] [address] [facility] 06/18/24 Dee Roca PA-C [address] [place] [address] [facility] 06/18/24 Press Box Custodian Relationship Specialty Start Date End Date Wu Herrera MD [address] [place] [address] PCP - General Family Medicine 07/31/20 Frankie Varela, YOANA.OIL WELL CABLE TOOL OPERATOR [address] [place] [address] Pbx Technician Family Medicine 06/18/24 11/27/24 Dee Roca PA-C [address] [place] [address] Pbx Technician Family [facility] 06/18/24 Press Box Custodian Relationship Specialty Start Date End Date Wu Herrera MD [address] [place] [address] PCP - General Family Medicine 07/31/20 Dee Roca PA-C [address] [place] [address] Pbx Technician Family [facility] 06/18/24 Press Box Custodian Relationship Specialty Start Date End Date Wu Herrera MD [address] [place] [address] PCP - General Family Medicine 07/31/20 Frankie Varela APRN.OIL WELL CABLE TOOL OPERATOR [address] [place] [address] Pbx Technician Family Medicine 06/18/24 11/27/24 Dee Roca PA-C [address] [place] [address] Pbx Technician Family Medicine 06/18/24 12/11/24 Frankie Varela APRN.OIL WELL CABLE TOOL OPERATOR [address] [place] [address] Pbx Technician Family Medicine 12/12/24 Dee Roca PA-C [address] [place] [address] Pbx Technician Family Medicine 12/12/24 Press Box Custodian Relationship Specialty Start Date End Date uW Herrera MD [address] [place] [address] PCP - General Family Medicine 07/31/20 Frankie Varela APRN.OIL WELL CABLE TOOL OPERATOR [address] [place] [address] Pbx Technician Family Medicine 12/12/24 Dee Roca PA-C [address] [place] [address] Pbx Technician Family Medicine 12/12/24 Press Box Custodian Relationship Specialty Start Date End Date Wu Herrera MD [address] [place] [address] PCP - General Family Medicine 07/31/20 Frankie Varela APRN.OIL WELL CABLE TOOL OPERATOR [address] [place] [address] Pbx Technician Family Medicine 06/18/24 11/27/24 Dee Roca PA-C [address] [place] [address] Pbx Technician Family Medicine 06/18/24 12/11/24 Frankie Varela APRN.OIL WELL CABLE TOOL OPERATOR [address] [place] [address] Pbx Technician Family Medicine 12/12/24 Dee Roca PA-C [address] [place] [address] Pbx Technician Family Medicine 12/12/24 Press Box Custodian Relationship Specialty Start Date End Date Wu Herrera MD [address] [place] [address] PCP - General Family Medicine 07/31/20 Frankie Varela, YOANA.OIL WELL CABLE TOOL OPERATOR [address] [place] [address] Pbx Technician Family Medicine 12/12/24 Dee Roca PA-C [address] [place] [address] [facility] Press Box Custodian Relationship Specialty Start Date End Date Wu Herrera MD [address] [place] [address] PCP - General Family Medicine 07/31/20 Frankie Varela, PROVIDER NETWORK ANALYST.OIL WELL CABLE TOOL OPERATOR [address] [place] [address] [facility] Dee Roca PA-C [address] [place] [address] [facility]/24 Press Box Custodian Relationship Specialty Start Date End Date Wu Herrera MD [address] [place] [address] PCP - General Family Medicine 07/31/20 Frankie Varela, PROVIDER NETWORK ANALYST.OIL WELL CABLE TOOL OPERATOR [address] [place] [address] [facility] 12/[facility]/24 Dee Roca PA-C [address] [place] [address] [facility] 12/12/24 Care Team (unrecognized sect ion and content) Care Team Personnel Name: WU HERRERA MD Member Role: Primary Care Physician Address: Address: [address] [place] [address]- Care Team Related Persons Name: ELIUD ALONZO Name: CHIVO BOYDEleazar FOR RECORDS PERTAINING TO PATIENTS WHO ARE OR HAVE BEEN ENROLLED IN A CHEMICAL DEPENDENCY/SUBSTANCEABUSE PROGRAM, SOME INFORMATION MAY BE OMITTED. This clinical summary was aggregated from multiple sources. Caution should be exercised in using it in the provision of clinical care. This summary normalizes information from multiple sources, and as a consequence, information in this document may materially change the coding, format and clinical context of patient data. In addition, data may be omitted in some cases. CLINICAL DECISIONS SHOULD BE BASED ON THE PRIMARY CLINICAL RECORDS. [facility] [employer] provides no warranty or guarantee of the accuracy or completeness of information in this document.
[2024-12-31] MEDS: HYDROmorphone 1 MG/ML Syringe IV (00:07)
[2024-12-31] MEDS: Ondansetron 4 MG/2 ML Vial IV (00:08)
[2024-12-31] MEDS: 0.9% Normal Saline (1000mL) 1,000 ML 999 ML IV (00:08)
[2024-12-31 00:18] LABS: Absolute Lymphocyte Count 2.53 X10^3/uL (0.83-4.51); Absolute Neutrophil Count 3.9 X10^3/uL (2.0-7.7); Basophil# 0.04 X10^3/uL; Basophil% 0.6 % (0-1); Eosinophil# 0.14 X10^3/uL; Eosinophils% 1.9 % (0-5); Hematocrit 41.9 % (37-47); Hemoglobin 14.1 g/dL (12.0-15.0); Lymphocyte # 2.53 X10^3/ul (0.83-4.51); Mean Corp Hgb Conc 33.7 g/dL (32-36); Mean Corpuscular Hgb 32.6 pg (27.0-32.0); Mean Platelet Vol. 10.5 fl (6.2-12.0); Monocyte# 0.56 X10^3/uL; Monocyte% 7.8 % (0-10); NRBC Flagged by Analyzer 0 % (0-5); Neutrophil # 3.94 X10^3/uL (2.7-7.7); Neutrophil % 54.6 % (47-70); Platelet Count 233 K/mm3 (150-450); RBC Distribution Width CV 12.4 % (11.6-14.6); RBC Distribution Width SD 44.1 fl (35.1-43.9); Red Blood Count 4.32 M/mm3 (4.2-5.4); White Blood Count 7.2 K/mm3 (4.4-11.0)
[2024-12-31 00:27] LABS: Internal QC Validated? YES +Cl - CLEAR BKGD; Pregnancy, Serum, hCG Quali. NEGATIVE Negative
[2024-12-31 00:39] LABS: Lipase 40 U/L (13-75)
[2024-12-31 00:45] LABS: AST(SGOT) 13 U/L (<=31); Alanine Aminotransfer ALT/SGPT 6 U/L (<=34); Albumin, Serum 4.4 g/dL (3.5-5.0); Alkaline Phosphatase 67 U/L (35-104); Anion Gap 11 (5-15); BUN 9 mg/dL (4-19); BUN/Creat Ratio 14.9 RATIO (10-20); Bilirubin, Direct 0.13 mg/dL (0.00-0.30); Calcium,Total 9.2 mg/dL (7.6-11.0); Chloride 107 mmol/L (98-108); Creatinine, Serum 0.63 mg/dL (0.70-1.20); EST Glomerular Filtration Rate 128 (>60); Estimated Creatinine Clearance 109.84 ml/min (50-250); Globulin 2.3 g/dL (2.2-4.2); Glucose 98 mg/dL (70-99); Potassium 3.6 mmol/L (3.3-5.1); Protein, Total 6.7 g/dL (5.9-8.4); Sodium Level 141 mmol/L (133-145)
--- NOTE | 2024-12-31 01:08 | EDS_ITS ---
HPI History of Present Illness Chief Complaint: Abd Pain Informant: patient Narrative Narrative: Patient is a 24-year-old female with past medical history of anxiety and bipolar disorder. She states she has had problems with her stomach for over 1 year. She states that she had a HIDA scan done as an outpatient and reportedly failed this. She states she is scheduled to follow-up with general surgery in approximately 1 week to discuss need for potential cholecystectomy. She states that last night she had a taco with ground beef and sour cream. Following ingestion of this she developed pain in the right upper quadrant. She states that the pain has been constant since its onset. She states is not responding to [id number] medication. She reports she has been unable to sleep secondary to the constant pain and therefore comes in for evaluation. [facility] Medical History (Updated 12/31/24 @ 02:[address] Gustavo Rosado DO) Insomnia Chronic gastritis Former smoker depression History of anorexia nervosa Vitamin B12 deficiency Abdominal bloating Constipation History of marijuana use Generalized anxiety disorder Bipolar 1 disorder, depressed, moderate PTSD (post-traumatic stress disorder) Tobacco abuse Osteopenia GERD (gastroesophageal reflux disease) Asthma Migraines (~12/08/23) Alcohol withdrawal Desire for detoxification History of cocaine use Alcohol use disorder Home Medications ?Medication ?Instructions ?Recorded ?Last Taken ?Type Compression Stockings Knee High #1 ea 09/06/24 Unknown Rx valacyclovir 500 mg tablet 500 mg PO QDAY 11/21/24 Unk nown History doxepin 3 mg tablet (Silenor) 3 mg PO QHS PRN sleep #3 0 tabs 12/27/24 Unknown Rx oxycodone-acetaminophen 5 mg-325 1 tab PO Q6H PRN pain 3 days #12 12/31/24 Unknown Rx mg tablet (Percocet) tabs Allergy/AdvReac Type Severity Reaction Status Date / Time Quinolones Allergy PT UNSURE Verified 12/30/24 23:21 OF REACTION Family History Other Alcoholism Anxiety Arthritis Asthma COPD (chronic obstructive pulmonary disease) Depression High cholesterol Schizophrenia Surgical History History of surgery Social History (Updated 09/05/24 @ 15:51 by Wade Wilcox NP, PRACTICE PERFORMANCE MANAGER-C) Smoking Status: Current every day smoker tobacco type: e-cigarettes alcohol intake: current alcohol intake frequency: a few times a week Previous attempts at quittin details: 3 drinks per week substance use type: does not use ROS ROS ED Constitutional Constitutional ED: Denies chills or fever(s) ENT ENT ED: Denies sore throat Cardiovascular Cardiovascular: Denies chest pain Respiratory/Chest Respiratory/Chest: Denies cough or dyspnea Gastrointestinal Gastrointestinal: Reports abdominal pain and nausea; Denies diarrhea or vomiting Genitourinary Genitourinary ED: Denies dysuria or hematuria Musculoskeletal Musculoskeletal: Denies back pain Integumentary Denies rash Neurologic Neurologic: Denies headache(s) Psychiatric Psychiatric: Reports anxiety Hematologic/Lymphatic Hematologic/Lymphatic: Denies easy bleeding or easy bruising EXAM Physical Exam Const Vital Signs: 12/30/24 23:22 12/31/24 01:22 Temperature 97 F L 98.2 F Temperature Source Temporal Pulse Rate 79 58 L Respiratory Rate 18 16 Blood Pressure 110/68 106/55 L Blood Pressure Mean 82 72 Pulse Ox 100 100 Oxygen Delivery Method Room Air Positive well nourished and well developed General Appearance ED: well developed; Negative for pallor HEENT Reports moist mucous membranes HEENT Narrative: No tongue or lip swelling no oral lesions no airway edema or compromise No secondary findings in the posterior pharynx to suggest infection Eyes PERRL and EOMs intact bilaterally General Eye ED: Negative for scleral icterus Neck supple Neck Narrative: No nuchal rigidity or meningeal signs noted Resp normal respiratory effort and clear to auscultation bilaterally Cardio regular rate and regular rhythm Rate: other Other Details: Regular rate and rhythm without murmurs rubs or gallop Radial and carotid pulses are equal and symmetric GI non-distended and no masses GI Narrative: Abdomen is soft and nondistended with normal active bowel sounds. There is mild pain with palpation in the midepigastric and right upper quadrant region. No voluntary guarding or rigidity or pulsatile mass Negative Gaspar sign No pain over McBurney's point Auscultation: normoactive bowel sounds Palpation: soft Back/Spine no CVA tenderness Extremity normal to inspection Neuro oriented x3, CN's II-XII intact bilaterally and no sensory deficits noted Sensorium / Orientation: alert Motor Exam: strength 5/5 throughout Psych mental status grossly normal Skin no rashes or lesions noted and no wounds General Skin Exam: Negative for jaundice or pallor MDM MDM MDM Narrative Medical decision making narrative: Patient arrived to the ER with stable vitals. She reported roughly 24 hours of upper abdominal pain that began after eating. She states she has a history of gallbladder dysfunction as she has failed a HIDA scan and reportedly will see a surgeon to talk about cholecystectomy. She denied fevers or chills or trauma. History and exam is most consistent with biliary colic but in order to potentially rule out acute cholecystitis versus pancreatitis versus complication basic blood work was obtained. White count is normal without left shift going against an infectious process. Lipase is normal going against pancreatitis and patient's test is also negative going against a complication. After receiving IV hydration as well as pain control the patient reported resolution of her abdominal pain and her abdomen remains so ft and nonsurgical. Therefore I felt no need for imaging studies at this time. Patient therefore is otherwise safe for discharge and can follow-up with her surgeon as previously directed. History & Record Review Discussion w/independent historian: Patient Lab Data Attestation: I reviewed the patient's lab results. Labs: Laboratory Results - last 24 hr 12/31/24 00:07 WBC 7.2 RBC 4.32 Hgb 14.1 Hct 41.9 MCV 97.0 MCH 32.6 H MCHC 33.7 RDW Std Deviation 44.1 H RDW Coeff of Reggie 12.4 Plt Count 233 MPV 10.5 Immature Gran % (Auto) 0.100 Neut % (Auto) 54.6 Lymph % (Auto) 35.0 [place] % (Auto) 7.8 Eos % (Auto) 1.9 Baso % (Auto) 0.6 Absolute Neuts (auto) 3.9 Absolute Lymphs (auto) 2.53 Nucleated RBC % 0 Sodium 141 Potassium 3.6 Chloride 107 Carbon Dioxide 23.0 Anion Gap 11 BUN 9 Creatinine 0.63 L Estim Creat Clear Calc 109.84 Est GFR (MDRD) Non-Af 128 BUN/Creatinine Ratio 14.9 Glucose 98 Calcium 9.2 Total Bilirubin 0.30 Direct Bilirubin 0.13 AST 13 ALT 6 Alkaline Phosphatase 67 Total Protein 6.7 Albumin 4.4 Globulin 2.3 Lipase 40 Serum , Qual NEGATIVE Discharge Plan Triage Chief Complaint: Abd Pain ED Provider: Gustavo Rosado Dx/Rx/DC Orders Clinical Impression: Biliary colic, Anxiety, Bipolar disorder Instructions: Abdominal Pain, ED Gallstones with Biliary Colic Prescriptions: New oxycodone-acetaminophen [Percocet] 5-325 mg tablet 1 tab PO Q6H PRN (Reason: pain) 3 Days Qty: 12 0RF No Action valacyclovir 500 mg tablet 500 mg PO QDAY doxepin [Silenor] 3 mg tablet 3 mg PO QHS PRN (Reason: sleep) Qty: 30 1RF (DME) Compression Stockings Knee High 20-30 mm HG See Rx Instructions .Route .MEDSUPPLY Qty: 1 0RF Rx Instructions: As directed Primary Care Provider: Wu Herrera Referrals: Giovani Hogan MD [Med Staff - Active Staff] - Wu Herrera MD [Primary Care Provider] - Activity Restrictions/Additional Instructions: Please eat smaller portions and stick to a bland diet to help prevent reoccurrence of pain. Keep your appointment with your general surgeon as previously directed. If pain flares up you may take the Percocet that was prescribed in the ER and use the Zofran which you have at home. If you have any further concerns or worsening of symptoms that are not responsive to home treatment please return for repeat evaluation Print Language: Lithuanian Disposition Disposition: Home, Self Care Discharge Date/Time: 12/31/24 01:35
[2024-12-31 01:22] VITALS: BP 106/55; PULSE 58; RESP 16; TEMP 36.8; O2SAT 100
[2024-12-31] MEDS: oxyCODONE 5 MG Tablet 10 MG PO (01:23)
== END 2024-12-31 01:35 | disposition home or self-care (01) ==
PROVIDERS: Emergency Provider Emergency Medicine; PCP Family Medicine; Visit Provider Emergency Medicine
DX: K80.50 Calculus of bile duct without cholangitis or cholecystitis without obstruction (principal); F31.9 Bipolar disorder, unspecified; F41.9 Anxiety disorder, unspecified; F17.290 Nicotine dependence, other tobacco product, uncomplicated
CPT/HCPCS: 80048; 80076; 83690; 84703; 85025; 96361; 96374; 96375; 96376; 99283; A4216; J2405

== ENCOUNTER 2025-01-26 15:24 | Emergency (ER) | payer MEDICAID, SELFPAY ==
[2025-01-26] VITALS (34 sets, daily range): BP systolic 91–113; BP diastolic 51–77; PULSE 47–71; RESP 10–22; TEMP 36.6–37.4; O2SAT 96–100
--- NOTE | 2025-01-26 15:54 | CT_ITS ---
PROCEDURE: ABDOMEN/PELVIS W IV CONT ONLY 01/26/2025 REASON FOR EXAM: POST CHOLECYSTECTOMY PAIN TECHNIQUE: ABDOMEN/PELVIS W IV CONT ONLY Coronal and Sagittal reconstruction series were provided. CONTRAST: Isovue 370 VOLUME: 98 mL One or more dose reduction techniques were used (e.g., Automated exposure control, adjustment of the mA and/or kV according to patient size, use of iterative reconstruction technique. RADIATION DOSE SUMMARY: CTDlvol: 16.6 mGy DLP: 366 mGycm COMPARISON: None FINDINGS: Lung bases: Unremarkable Liver: Trace pneumobilia in the central left hepatic lobe. Gallbladder: Surgically absent. There is a hypodense collection in the gallbladder fossa measuring 1.9 cm (coronal image 42). Spleen: Unremarkable Pancreas: Normal size without evidence of mass surrounding inflammation or ductal dilation. Adrenals: Unremarkable Kidneys: No radiodense stone or hydronephrosis. Bladder: Unremarkable Reproductive Organs: Left adnexal cyst measuring up to 3.6 cm in size, and right adnexal fluid measuring 2.2 cm (coronal image 61). There is free fluid in the rectouterine pouch. Bowel: No definite obstruction or inflammation. There are loops of prominent fluid-filled small bowel measuring up to 2.5 cm in diameter. Lymph nodes: No suspicious lymph node enlargement. Vasculature: Unremarkable Peritoneum / Retroperitoneum: There are several scattered foci of free air throughout the upper abdomen, most notably adjacent to the left hepatic lobe. Bones: Osteitis condensans ilii, [id number].. Soft tissues: Subcutaneous emphysema in the upper abdominal wall and periumbilical region. There is stranding in the periumbilical region. CT/Abdomen/Pelvis W IV Cont ONLY IMPRESSION: 1. Hypodense collection measuring 1.9 cm at the gallbladder fossa, a nonspecif ic finding with differential including normal postoperative fluid collection, with biloma or blood products also possible. O f note, there is trace pneumobilia. Consider Surgical consultation. 2. Scattered foci of free air, and subcutaneous emphysema, in keeping with the postoperative state. 3. Mildly prominent loops of fluid-filled small bowel, likely representing ile us. 4. Small amount of pelvic free fluid, likely physiologic. Reading Location: [id number]
--- NOTE | 2025-01-26 15:55 | EDS_ITS ---
<Statement entered by Logan Crespo, - 01/28/25 15:33> Patient was seen and examined with physician commercial assistant Jacy All components of the history and physical confirmed and agreed. History of present illness and physical exam: Patient is a 24-year-old female past medical history of of generalized anxiety, bipolar 1 disorder, PTSD, asthma, migraines who presented to the emergency department the chief complaint of abdominal pain and chest discomfort. She states that she had a cholecystectomy yesterday at [facility] by Dr. Hogan. States that she went home and noted that she mainly laid around all day she states that she was starting to have increasing discomfort however she laid down again and noted that when she tried to get up she could not secondary to the pain. States that she is having pain radiating to her right shoulder as well. States that she has been taking Percocet every 6 hours with the last dose around 10 AM. Patient states that she has not passed gas and not having bowel movements. States that she has drank couple smoothie since surgery. She states that she has been urinating normally. Review of systems: Agree with above Physical exam: Agree with above MDM Patient is a 24-year-old female who presented to the emergency department the chief complaint of abdominal pain, shoulder pain on the right side. On the differential diagnosis includes but not limited to ileus, bowel obstruction, referred pain from her laparoscopic procedure. Once workup is obtained reviewed she will be reevaluated. Patient was given morphine and Zofran. Patient's CBC was reviewed and showed no evidence leukocytosis white blood count was 6.6, he was 13.3, platelet count of 200. Patient sodium was 141, potassium normal 3.9, creatinine was 0.61. Patient's AST and ALT were 23 and 19 respectively with a normal total bilirubin of 0.51. Patient lipase normal at 28. Patient CT abdomen pelvis with IV contrast showed a hypodense collection me asuring 1.9 cm at the gallbladder fossa nonspecific finding however could be postoperative fluid collection with bilioma or blood products. There is trace pneumobilia. Consider surgical consultation. Scattered foci of free air and subcutaneous emphysema in keeping with postoperative state. Mildly prominent loops of fluid-filled small bowel likely representing ileus. She has small amount of pelvic free fluid likely physiologic. Patient EKG showed sinus bradycardia with rate of 58 bpm. We still broached out to but not in a hospital spoke with on-call general surgeon Dr. Zayas who accepted the patient for transfer. Patient is agreeable this plan. Final impression: Abdominal pain Constipation/ileus Status post cholecystectomy Disposition: Patient will be transferred to [facility] Supervising attending attestation: Logan HAMMONDS History of Present Illness Chief Complaint: Chest Pain Narrative Narrative: 23-year-old male had a laparoscopic cholecystectomy with Dr. Hogan at [place] yesterday. She states when she woke up she had mild chest tightness. She was walking around the house and getting tired. She laid down for a nap around 1 PM and when she woke up she had worsening generalized abdominal pain. She is taking Percocet every 6 hours with last dose around 10 AM. No fever, chills, nausea or vomiting. She has not had a bowel movement yet. She is drink a couple smoothies since the surgery. She has had normal urination. No other surgical history. The only medication she is on is Valtrex. [facility] Medical History (Updated 01/26/25 @ 18:00 by BRODIE Anderson) Insomnia Chronic gastritis Former smoker depression History of anorexia nervosa Vitamin B12 deficiency Abdominal bloating Constipation History of marijuana use Generalized anxiety disorder Bipolar 1 disorder, depressed, moderate PTSD (post-traumatic stress disorder) Tobacco abuse Osteopenia GERD (gastroesophageal reflux disease) Asthma Migraines (~12/08/23) Alcohol withdrawal Desire for detoxification History of cocaine use Alcohol use disorder Home Medications ?Medication ?Instructions ?Recorded ?Last Taken ?Type Compression Stockings Knee High #1 ea 09/06/24 Unknown Rx valacyclovir 500 mg tablet 500 mg PO QDAY 11/21/24 Unk nown History doxepin 3 mg tablet (Silenor) 3 mg PO QHS PRN sleep #3 0 tabs 12/27/24 Unknown Rx oxycodone-acetaminophen 5 mg-325 1 tab PO Q6H PRN pain 3 days #12 12/31/24 Unknown Rx mg tablet (Percocet) tabs Allergy/AdvReac Type Severity Reaction Status Date / Time Quinolones Allergy PT UNSURE Verified 12/30/24 23:21 OF REACTION Family History Other Alcoholism Anxiety Arthritis Asthma COPD (chronic obstructive pulmonary disease) Depression High cholesterol Schizophrenia Surgical History (Updated 01/26/25 @ 18:00 by BRODIE Anderson) S/P cholecystectomy History of surgery Social History (Updated 01/26/25 @ 15:33 by Yany Horn) housing: apartment Smoking Status: Current every day smoker tobacco type: e-cigarettes alcohol intake: current alcohol intake frequency: a few times a week Previous attempts at quittin details: 3 drinks per week substance use type: does not use ROS ROS ED ROS Narrative Constitutional: Negative for fever, chills, malaise. CVS: Positive for chest pain. No palpitations Respiratory: Negative for shortness of breath, cough. GI: Positive for abdominal pain. No vomiting, diarrhea. : Negative for dysuria. EXAM Physical Exam Narrative Exam Narrative: CONST: Patient lying in bed crying. ENT: Normal inspection. NECK: Normal inspection. RESP: No respiratory distress, CTAB. CVS: Regular rate and rhythm, no murmur, no gallop. ABD: Bandages over laparoscopic incision sites are clean. Abdomen is soft, nondistended, with generalized tenderness. No guarding or rebound. SKIN: Color normal, no rash, warm, dry, intact. EXTREMITIES: Normal appearance, no pedal edema. NEURO: Alert and answering questions appropriately. PSYCH: Normal affect. Const Vital Signs: 01/26/25 15:25 01/26/25 15:32 01/26/25 15:50 Temperature 99.3 F H Temperature Source Temporal Pulse Rate 71 70 Respiratory Rate 22 H 19 H Respiratory Effort Normal Non-Labored Blood Pressure 113/69 Blood Pressure Mean 83 Pulse Ox 100 98 Oxygen Delivery Method Room Air 01/26/25 16:00 01/26/25 16:15 01/26/25 16:30 Temperature Temperature Source Pulse Rate 64 53 L 55 L Respiratory Rate 16 12 13 Respiratory Effort Blood Pressure 104/56 L 100/61 105/64 Blood Pressure Mean 70 73 77 Pulse Ox 98 99 100 Oxygen Delivery Method 01/26/25 16:45 01/26/25 17:00 Temperature Temperature Source Pulse Rate 55 L 54 L Respiratory Rate 14 15 Respiratory Effort Blood Pressure 104/64 102/55 L Blood Pressure Mean 77 70 Pulse Ox 100 99 Oxygen Delivery Method MDM MDM MDM Narrative Medical decision making narrative: Consults: [facility] Differential includes but not limited to normal postoperative pain, ileus, obstruction, perforation 24-year-old female had a laparoscopic cholecystectomy with Dr. Hogan at [place] yesterday and presents with chest tightness and increased abdominal pain. Main complaint is the latter. She appears uncomfortable but nontoxic. Vitals are stable. She was very anxious and I think is why her respiratory rate was elevated to 22. She has a normal cardiopulmonary exam. Abdomen is soft, nondistended, with significant generalized tenderness but no peritoneal signs. The laparoscopic incision bandages look clean. EKG is nonischemic. CBC, CMP, lipase are all unremarkable. CT scan shows 1.9 cm hypodense fluid collection in the gallbladder fossa which could be postoperative fluid with biloma or blood. There is trace pneumobilia patient and mildly prominent loops of fluid-filled small bowel likely ileus. Patient feels better after IV morphine 4 mg x 2 but still has significant pain with ambulation. I think she would benefit from being observed this closely postop especially with the fluid collection. I di scussed the case with Dr. Zayas at [place] who accepted the patient and she is awaiting a transfer bed. Lab Data Attestation: I reviewed the patient's lab results. Labs: Laboratory Results - last 24 hr 01/26/25 15:40 WBC 6.6 RBC 4.05 L Hgb 13.3 Hct 39.4 MCV 97.3 MCH 32.8 H MCHC 33.8 RDW Std Deviation 45.1 H RDW Coeff of Reggie 12.6 Plt Count 200 MPV 10.2 Immature Gran % (Auto) 0.200 Neut % (Auto) 57.0 Lymph % (Auto) 34.7 [place] % (Auto) 7.2 Eos % (Auto) 0.6 Baso % (Auto) 0.3 Absolute Neuts (auto) 3.8 Absolute Lymphs (auto) 2.28 Nucleated RBC % 0 Sodium 141 Potassium 3.9 Chloride 106 Carbon Dioxide 22.1 Anion Gap 13 BUN 6 Creatinine 0.61 L Est GFR (MDRD) Non-Af 129 BUN/Creatinine Ratio 9.5 L Glucose 80 Calcium 9.0 Total Bilirubin 0.51 AST 23 ALT 19 Alkaline Phosphatase 56 Total Protein 6.6 Albumin 4.2 Globulin 2.4 Albumin/Globulin Ratio 1.8 Lipase 28 Radiography Diagnostic Testing: Clinical Impression(s) from Imaging Studies Abdomen/Pelvis CT 01/26/25 15:54 IMPRESSION: 1. Hypodense collection measuring 1.9 cm at the gallbladder fossa, a nonspecific finding with differential including normal postoperative fluid collection, with biloma or blood products also possible. Of note, there is trace pneumobilia. Consider Surgical consultation. 2. Scattered foci of free air, and subcutaneous emphysema, in keeping with the postoperative state. 3. Mildly prominent loops of fluid-filled small bowel, likely representing ileus. 4. Small amount of pelvic free fluid, likely physiologic. Reading Location: [facility] EKG Initial EKG: Attestation: I personally reviewed and interpreted this EKG as follows: Interpretation: No Acute Injury Pattern and Sinus Bradycardia Comments: Sinus bradycardia 58 bpm No acute ischemic changes Discharge Plan Triage Chief Complaint: Chest Pain ED Midlevel Provider: Jacy Willis ED Provider: Logan Crespo Dx/Rx/DC Orders Clinical Impression: Post-op pain, History of cholecystectomy Prescriptions: No Action valacyclovir 500 mg tablet 500 mg PO QDAY doxepin [Silenor] 3 mg tablet 3 mg PO QHS PRN (Reason: sleep) Qty: 30 1RF oxycodone-acetaminophen [Percocet] 5-325 mg tablet 1 tab PO Q6H PRN (Reason: pain) 3 Days Qty: 12 0RF (DME) Compression Stockings Knee High 20-30 mm HG See Rx Instructions .Route .MEDSUPPLY Qty: 1 0RF Rx Instructions: As directed Primary Care Provider: Wu Herrera Referrals: Wu Herrera MD [Primary Care Provider] - Print Language: Yakut
[2025-01-26 16:08] LABS: Hematocrit 39.4 % (37-47); Hemoglobin 13.3 g/dL (12.0-15.0); Immature Granulocytes Count 0.010 X10^3/uL (0.0-0.0); Mean Corp Hgb Conc 33.8 g/dL (32-36); Mean Corpuscular Volume 97.3 fL (81-99); Mean Platelet Vol. 10.2 fl (6.2-12.0); NRBC Flagged by Analyzer 0 % (0-5); Platelet Count 200 K/mm3 (150-450); RBC Distribution Width CV 12.6 % (11.6-14.6); RBC Distribution Width SD 45.1 fl (35.1-43.9); Red Blood Count 4.05 M/mm3 (4.2-5.4); White Blood Count 6.6 K/mm3 (4.4-11.0)
[2025-01-26] MEDS: 0.9% Normal Saline (1000mL) 1,000 ML 999 ML IV (16:12)
[2025-01-26 16:42] LABS: Lipase 28 U/L (13-75)
[2025-01-26 16:45] LABS: AST(SGOT) 23 U/L (<=31); Alanine Aminotransfer ALT/SGPT 19 U/L (<=34); Albumin, Serum 4.2 g/dL (3.5-5.0); Alkaline Phosphatase 56 U/L (35-104); Anion Gap 13 (5-15); BUN 6 mg/dL (4-19); BUN/Creat Ratio 9.5 RATIO (10-20); Calcium,Total 9.0 mg/dL (7.6-11.0); Carbon Dioxide 22.1 mmol/L (21.0-32.0); Chloride 106 mmol/L (98-108); Globulin 2.4 g/dL (2.2-4.2); Glucose 80 mg/dL (70-99); Potassium 3.9 mmol/L (3.3-5.1)
--- NOTE | 2025-01-26 17:44 | PCA ---
CALLED [facility] WILL TRANSFER PAT. WAITING ON A CALL BACK. DR CHRISTINE DID ACCEPT.
--- NOTE | 2025-01-26 18:03 | PCA ---
TRANSFER LINE CALLED BACK @ 1800 THEY ACCEPTED JUST WAITING ON A BED
--- NOTE | 2025-01-26 21:21 | PCA ---
PT ACCEPTED TO [facility]. 4S 407 BED 2. N2N [phone]
[2025-01-27] VITALS: PULSE 57; RESP 18
== END 2025-01-27 00:53 | disposition short-term general hospital (02) ==
LOC: ED 16:13
PROVIDERS: Physician Assistant; Emergency Provider Emergency Medicine; PCP Family Medicine; Visit Provider Emergency Medicine
DX: K56.7 Ileus, unspecified (principal); F31.9 Bipolar disorder, unspecified; F17.290 Nicotine dependence, other tobacco product, uncomplicated; Z90.49 Acquired absence of other specified parts of digestive tract
CPT/HCPCS: 74177; 80053; 83690; 85025; 93005; 96361; 96374; 96375; 96376; 99285; Q9967; A4216; J2405

== ENCOUNTER 2025-03-06 16:58 | Emergency (ER) | payer MEDICAID, SELFPAY ==
[2025-03-06 16:59] VITALS: BP 120/87; PULSE 72; RESP 15; TEMP 36.2; O2SAT 96; BMI 23.0
[2025-03-06 17:15] VITALS: BP 118/81; PULSE 71; RESP 18; TEMP 36.9; O2SAT 100
[2025-03-06 17:22] LABS: Hematocrit 41.2 % (37-47); Hemoglobin 14.1 g/dL (12.0-15.0); Immature Granulocytes Count 0.020 X10^3/uL (0.0-0.0); Mean Corp Hgb Conc 34.2 g/dL (32-36); Mean Corpuscular Volume 95.2 fL (81-99); Mean Platelet Vol. 9.7 fl (6.2-12.0); NRBC Flagged by Analyzer 0 % (0-5); Platelet Count 235 K/mm3 (150-450); RBC Distribution Width CV 12.2 % (11.6-14.6); RBC Distribution Width SD 43.1 fl (35.1-43.9); Red Blood Count 4.33 M/mm3 (4.2-5.4); White Blood Count 7.9 K/mm3 (4.4-11.0)
--- NOTE | 2025-03-06 17:23 | CT_ITS ---
PROCEDURE: ABDOMEN/PELVIS W IV CONT ONLY 03/06/2025 REASON FOR EXAM: RLQ PAIN TECHNIQUE: ABDOMEN/PELVIS W IV CONT ONLY Coronal and Sagittal reconstruction series were provided. CONTRAST: Isovue-300 VOLUME: 97 mL One or more dose reduction techniques were used (e.g., Automated exposure control, adjustment of the mA and/or kV according to patient size, use of iterative reconstruction technique. RADIATION DOSE SUMMARY: CTDlvol: 9 mGy DLP: 446 mGycm COMPARISON: 01/26/2025. FINDINGS: The peripheral soft tissues are unremarkable. No acute osseous abnormalities. No suspicious lymphadenopathy. The liver is unremarkable. The gallbladder is surgically absent. The pancreas, spleen, and adrenals are unremarkable. Symmetric enhancement of bilateral kidneys. No hydroureteronephrosis. The reproductive organs are unremarkable. The urinary bladder is unremarkable. Normal caliber large and small bowel. The appendix is not discretely visualized but there no secondary signs of acute appendicitis. CT/Abdomen/Pelvis W IV Cont ONLY IMPRESSION: No acute abnormality of the abdomen or pelvis. Reading Location: [id number]
[2025-03-06 17:47] LABS: Internal QC Validated? YES +Cl - CLEAR BKGD; Pregnancy, Serum, hCG Quali. NEGATIVE Negative; Record Kit Lot#, Serum Preg. 962302
[2025-03-06 17:49] LABS: AST(SGOT) 15 U/L (<=31); Alanine Aminotransfer ALT/SGPT 10 U/L (<=34); Albumin, Serum 4.6 g/dL (3.5-5.0); Alkaline Phosphatase 70 U/L (35-104); Anion Gap 13 (5-15); BUN 11 mg/dL (4-19); BUN/Creat Ratio 18.7 RATIO (10-20); Calcium,Total 9.4 mg/dL (7.6-11.0); Carbon Dioxide 22.1 mmol/L (21.0-32.0); Chloride 106 mmol/L (98-108); Estimated Creatinine Clearance 119.31 ml/min (50-250); Globulin 2.6 g/dL (2.2-4.2); Glucose 96 mg/dL (70-99); Lipase 55 U/L (13-75); Potassium 3.9 mmol/L (3.3-5.1)
[2025-03-06 17:51] LABS: Mucous, Urine 0 SEEN /hpf (<or=2+)
[2025-03-06 18:02] VITALS: BP 98/58; PULSE 59; RESP 14; TEMP 36.8; O2SAT 98
[2025-03-06 18:12] LABS: Color, Urine Straw (Yellow); Glucose, Dipstick Normal (Normal); Ketone-Dipstick Negative (Negative); Leukocyte Esterase-Dipstick Negative /ul (Negative); Nitrite-Dipstick Negative (Negative); Occult Blood-Urine Negative /ul (Negative); Protein-Dipstick Negative (Negative); Specific Gravity, Urine 1.010 (1.002-1.030); Urine Bilirubin Dipstick Negative (Negative)
[2025-03-06 19:05] LABS: Red Blood Cells-Urine 0-5 SEEN /hpf (0-5); Squamous Epithelial Cells - UA 0-5 SEEN /hpf (5-10)
[2025-03-06 19:37] VITALS: O2SAT 100
--- NOTE | 2025-03-06 20:04 | ED.VIS.GI ---
HPI HPI - GI History of Present Illness Chief Complaint: Abd Pain Narrative Narrative: Patient is a 24-year-old female presenting to the emergency department for 2 weeks of right lower quadrant pain. Patient has a past medical history as below. She states that about 5 weeks ago she had her gallbladder removed. Developed an ileus after. States that she feels like it is a muscle strain. Reports that it is a pulling sensation. States she did lift a vacuum that was heavy when it started. Denies any fever, chills, vomiting. Reports that she was treated with Macrobid for UTI and is finished his antibiotic. Reports that she was having dysuria but this is cleared up. Denies any vaginal bleeding, discharge, pain. Denies concern for any STDs. Reports that the pain is constant and does not come and go. [facility] Medical History Insomnia Chronic gastritis Former smoker depression History of anorexia nervosa Vitamin B12 deficiency Abdominal bloating Constipation History of marijuana use Generalized anxiety disorder Bipolar 1 disorder, depressed, moderate PTSD (post-traumatic stress disorder) Tobacco abuse Osteopenia GERD (gastroesophageal reflux disease) Asthma Migraines (~12/08/23) Alcohol withdrawal Desire for detoxification History of cocaine use Alcohol use disorder Home Medications ?Medication ?Instructions ?Recorded ?Last Taken ?Type Compression Stockings Knee High #1 ea 09/06/24 Unknown Rx valacyclovir 500 mg tablet 500 mg PO QDAY 11/21/24 Unknown History oxycodone-acetaminophen 5 mg-325 1 tab PO Q6H PRN pain 3 days #12 12/31/24 Unknown Rx mg tablet (Percocet) tabs hydroxyzine HCl 50 mg tablet 50 mg PO BID PRN anxiety #60 tabs 02/07/25 Unknown Rx gabapentin 300 mg capsule 300 mg PO QHS #30 caps 02/17/25 Unknown Rx cyclobenzaprine 5 mg tablet 5 mg PO TID PRN muscle spasm #10 03/06/25 Unknown Rx tabs Allergy/AdvReac Type Severity Reaction Status Date / Time Quinolones Allergy PT UNSURE Verified 03/06/25 16:59 OF REACTION Family History Other Alcoholism Anxiety Arthritis Asthma COPD (chronic obstructive pulmonary disease) Depression High cholesterol Schizophrenia Surgical History S/P cholecystectomy History of surgery Social History housing: apartment Smoking Status: Current every day smoker tobacco type: e-cigarettes alcohol intake: current alcohol intake frequency: a few times a week Previous attempts at quittin details: 3 drinks per week substance use type: does not use ROS ROS ED ROS Narrative see HPI EXAM Physical Exam Narrative Exam Narrative: Vital signs: Reviewed General: Alert and oriented. No acute distress HEENT: Head is normocephalic and atraumatic, sinuses nontender, pupils equal round and reactive. Nares are patent. Oropharynx and throat exams normal. Neck: Supple without lymphadenopathy nontender Cardiovascular: Regular rate and rhythm, no murmurs. No rubs or gallops. Normal S1 and S2 Respiratory: Clear to auscultation bilaterally. No wheezes, rales, rhonchi Abdominal: Soft and mildly tender in the right lower quadrant. There is no tenderness to palpation of the suprapubic region. No erythema or warmth over the right lower quadrant or the hip/thigh. Patient able to flex and extend her hip actively. Normal bowel sounds. No guarding or rebound. Nonsurgical abdomen Extremities: No tenderness. No bruising. Normal range of motion. Normal sensation. Skin: No rash or redness. Neurological: Cranial nerves II through XII are grossly intact. Normal strength and sensation. Normal cerebellar function The rest of the physical exam is unremarkable Const Vital Signs: 03/06/25 16:59 03/06/25 17:15 03/06/25 18:02 Temperature 97.1 F L 98.4 F 98.3 F Temperature Source Temporal Oral Oral Pulse Rate 72 71 59 L Respiratory Rate 15 18 14 Blood Pressure 120/87 H 118/81 H 98/58 L Blood Pressure Mean 98 93 71 Pulse Ox 96 100 98 Oxygen Delivery Method Room Air Room Air Room Air 03/06/25 19:37 03/06/25 20:06 Temperature 98.3 F Temperature Source Pulse Rate 59 L Respiratory Rate 14 Blood Pressure 98/58 L Blood Pressure Mean 71 Pulse Ox 100 100 Oxygen Delivery Method MDM MDM MDM Narrative Medical decision making narrative: Patient is a 24-year-old female presenting to the emergency department for right lower quadrant pain for the past 2 weeks. Patient was seen and examined. Vitals are stable. Resting in bed comfortably no acute distress. Differential includes but is not limited to: Appendicitis, muscle strain, UTI less likely septic joint, ovarian torsion Patient given morphine and Zofran for symptomatic control. CBC with no leukocytosis and normal hemoglobin. CMP with no significant abnormalities. Lipase within normal limits. Urine negative. Urinalysis with no evidence of UTI. CT shows no acute abnormality of the abdomen or pelvis. Appendix was not visualized but there is no secondary signs of appendicitis. The reproductive organs are unremarkable. Pain has been ongoing for the past 2 weeks, worsened with active movements. Do not suspect ovarian torsion. Updated the patient on the findings. Given Toradol and Flexeril for likely muscle strain. With no leukocytosis do not suspect septic joint or appendicitis given her exam. Patient was instructed to return to the ED with any new or worsening symptoms including fever, chills, worsening abdominal pain, nausea or vomiting. States she has a primary care doctor visit tomorrow morning. Instructed to go to this. Patient discharged from the Emergency Department. I do not feel that the patient's evaluation reveals any acute reason for admission at this time. I instructed them to either follow-up with their primary care physician or promptly return to the Emergency Department for reevaluation should symptoms worsen or new symptoms develop. I explained what symptoms would indicate the need to return to the emergency department. Shared decision making was used. The patient voiced understanding of the treatment plan and is agreeable with it. Clinical impression Right lower quadrant pain History & Record Review Discussion w/independent historian: Patient Lab Data Attestation: I reviewed the patient's lab results. Labs: Laboratory Results - last 24 hr 03/06/25 03/06/25 17:15 17:37 WBC 7.9 RBC 4.33 Hgb 14.1 Hct 41.2 MCV 95.2 MCH 32.6 H MCHC 34.2 RDW Std Deviation 43.1 RDW Coeff of Reggie 12.2 Plt Count 235 MPV 9.7 Immature Gran % (Auto) 0.300 Neut % (Auto) 61.3 Lymph % (Auto) 30.3 [place] % (Auto) 6.6 Eos % (Auto) 1.1 Baso % (Auto) 0.4 Absolute Neuts (auto) 4.8 Absolute Lymphs (auto) 2.38 Nucleated RBC % 0 Sodium 141 Potassium 3.9 Chloride 106 Carbon Dioxide 22.1 Anion Gap 13 BUN 11 Creatinine 0.58 L Estim Creat Clear Calc 119.31 Est GFR (MDRD) Non-Af 130 BUN/Creatinine Ratio 18.7 Glucose 96 Calcium 9.4 Total Bilirubin 0.34 AST 15 ALT 10 Alkaline Phosphatase 70 Total Protein 7.2 Albumin 4.6 Globulin 2.6 Albumin/Globulin Ratio 1.8 Lipase 55 Serum , Qual NEGATIVE Urine Color Straw Urine Clarity Clear Urine pH 7.0 Ur Specific [place] 1.010 Urine Protein Negative Urine Glucose (UA) Normal Urine Ketones Negative Urine Occult Blood Negative Urine Nitrite Negative Urine Bilirubin Negative Urine Urobilinogen Normal Ur Leukocyte Esterase Negative Urine RBC 0-5 SEEN Urine WBC 0-5 SEEN Ur Squamous Epith Cells 0-5 SEEN Urine Bacteria 0 SEEN Urine Mucus 0 SEEN Radiography Diagnostic Testing: Clinical Impression(s) from Imaging Studies Abdomen/Pelvis CT 03/06/25 17:23 IMPRESSION: No acute abnormality of the abdomen or pelvis. Reading Location: [facility] Discharge Plan Triage Chief Complaint: Abd Pain ED Provider: Kaylin Patel Dx/Rx/DC Orders Clinical Impression: Abdominal pain, RLQ Instructions: Abdominal Pain, ED Abdominal Pain Unkn Cause Fem Prescriptions: New cyclobenzaprine 5 mg tablet 5 mg PO TID PRN (Reason: muscle spasm) Qty: 10 0RF No Action valacyclovir 500 mg tablet 500 mg PO QDAY hydroxyzine HCl 50 mg tablet 50 mg PO BID PRN (Reason: anxiety) Qty: 60 0RF oxycodone-acetaminophen [Percocet] 5-325 mg tablet 1 tab PO Q6H PRN (Reason: pain) 3 Days Qty: 12 0RF (DME) Compression Stockings Knee High 20-30 mm HG See Rx Instructions .Route .MEDSUPPLY Qty: 1 0RF Rx Instructions: As directed gabapentin 300 mg capsule 300 mg PO QHS Qty: 30 1RF Primary Care Provider: Wu Herrera Referrals: Wu Herrera MD [Primary Care Provider] - 1 Day Activity Restrictions/Additional Instructions: Take the Flexeril as prescribed. Take Motrin every 6 hours for pain control. You can try heating pad on the area. Return if you develop any worsening pain, fever, chills, nausea, vomiting, fatigue. Follow-up with your primary care doctor tomorrow as planned. Your evaluation in the Emergency Department did not reveal any acute reason for admission. However, I want to emphasize that you may be early in the course of a disease process or illness even if it is not present. For this reason you should follow-up within 24 hours for reevaluation with either your primary care physician or if necessary back here in the Emergency Department. You should return to the Emergency Department immediately if your symptoms worsen or new symptoms develop. Print Language: Cook Islander Disposition Disposition: Home, Self Care Discharge Date/Time: 03/06/25 20:33
[2025-03-06 20:06] VITALS: BP 98/58; PULSE 59; RESP 14; TEMP 36.8; O2SAT 100
[2025-03-06] MEDS: Ketorolac 30 MG/ML Syringe IM (20:26)
== END 2025-03-06 20:33 | disposition home or self-care (01) ==
PROVIDERS: Emergency Provider Student in an Organized Health Care Education/Training Program; PCP Family Medicine; Visit Provider Student in an Organized Health Care Education/Training Program
DX: R10.31 Right lower quadrant pain (principal); F17.290 Nicotine dependence, other tobacco product, uncomplicated; Z79.899 Other long term (current) drug therapy; Z90.49 Acquired absence of other specified parts of digestive tract
CPT/HCPCS: 74177; 80053; 81001; 83690; 84703; 85025; 96372; 96374; 96375; 96376; 99283; Q9967; A4216; J2405

== ENCOUNTER → 2025-03-29 | Outpatient (CLI) | payer MEDICAID, SELFPAY ==
[2025-03-29 14:47] LABS: Internal QC Validated? YES +Cl - CLEAR BKGD; Pregnancy, Urine Negative Negative
[2025-03-29 14:48] LABS: Record Kit Lot#,Urine Preg 964736
[2025-03-29 15:09] LABS: Barbiturate Urine NEGATIVE (< 200 ng/mL); Benzodiazepine Urine NEGATIVE (< 200 ng/mL); PCP Urine NEGATIVE (< 25 ng/mL); THC Urine NEGATIVE (< 50 ng/mL)
== END | disposition home or self-care (01) ==
LOC: LAB 14:02
PROVIDERS: PCP Family Medicine; Referring Provider Anesthesiology Pain Medicine; Visit Provider Anesthesiology Pain Medicine
DX: Z01.818 Encounter for other preprocedural examination (principal)
CPT/HCPCS: 80307; 81025

== ENCOUNTER 2025-05-23 19:33 | Emergency (ER) | payer MEDICAID, SELFPAY ==
[2025-05-23 19:34] VITALS: BP 129/98; PULSE 70; RESP 16; TEMP 36.8; O2SAT 100; BMI 25.4
--- OUTSIDE RECORDS SUMMARY | 2025-05-23 20:17 | XMS RPT_ITS | CCD ---
Author Organization [facility] Care Team Providers Care Asset Administrator Name Role Phone NO PRIMARY CARE, Unavailable Unavailable ILIA BOLTON Unavailable Unavailable MARINO GAVIN Unavailable Unavailable REFERRED, SELF Unavailable Unavailable NO PRIMARY CARE, Unavailable Unavailable NOLBERTO ARGUETA Unavailable Unavaila ble NO PRIMARY CAREMD Unavailable Unavailable ELOISE GOOD Unavailable Unavailable CHACHA DIEGO Unavailable Unavailable MAYA, TONNY C Unavailable Unavailable GEORGINA CR Unavailable Unavailable CLAUDIA TAYLOR Unavailable Unavailable MAYA, TONNY C Unavailable Unavailable REFERRED, SELF Unavailable Unavailable NEELA, RAMIRO B Unavailable Unavailable MAYA, TONNY C Unavailable Unavailable MAYA, TONNY C Unavailable Unavailable MAYA, TONNY C Unavailable Unavailable LEONARDO KEARNEY Unavailable Unavailable MOHAMED, RIHAB Unavailable Unavailable SHRUTHI PEREZ E Unavailable Unavailable REFERRED, SELF Unavailable Unavailable MAYA, TONNY C Unavailable Unavailable MOHAMED, RIHAB Unavailable Unavailable MAYA, TONNY C Unavailable Unavailable BORISHCHAK, YU Unavailable Unavailable BRANDIE CHACHA E Unavailable Unavailable NEELA, RAMIRO B Unavailable Unavailable MAYA, TONNY C Unavailable Unavailable MAYA, TONNY C Unavailable Unavailable Unavailable Primary Care Provider UnavailWU Rivera MD Primary Care Physician Free, Text Entry Unavailable Unavailable Joseph Hester Unavailable Unavailable Wu Herrera MD A Primary Care Provider WU HERRERA MD A Primary Care Physician Wu Herrera MD A Primary Care Provider Dr. GRISEL KING Attending Unavailabl e Pending, Provider Primary Care Unavailable Pending, Provider Primary Care Unavailable [place] Dr. Perez Attending Unavailabl e Pending, Provider Primary Care Unavailable [place], Dr. Perez Attending Unavailabl e Dr. GRISEL KING Attending Unavailabl e Pending, Provider Primary Care Unavailable [place], Dr. Perez Attending Unavailabl e Pending, Provider Primary Care Unavailable Sharon JO, Wu A Primary Care Provider Sharon JO, Wu Dumont Primary Care Provider Sharon JO, Wu Dumont Primary Care Provider CHRISTINE WELSH Admitting Unavailable CHRISTINE WELSH Attending Unavailable SHARON WU A Primary Care Unavailable Sharon JO, Wu Dumont Primary Care Provider Generic Provider MD, No Assigned Pcp Primary Car e Provider Unavailable CHAPO WRIGHT Attending Unavailable GENERIC PROVIDER, NO ASSIGNED PCP Primary Care Unavailable Knoble SCENERY BUILDER.ASSISTANT PROFESSOR OF SPANISH, Frankie Unavailable Abelino BAHENA, Dee Unavailable Knoble SCENERY BUILDER.ASSISTANT PROFESSOR OF SPANISH, Frankie Unavailable Abelino BAHENA, Dee Unavailable Knoble SCENERY BUILDER.ASSISTANT PROFESSOR OF SPANISH, Frankie Unavailable Abelino BAHENA, Dee Unavailable Provider Perlita JO Unavailable Unavailable WU HOGAN Admitting Unavailable WU HOGAN Attending Unavailable SHARON, WU A Primary Care Unavailable OFELIA ZAYAS Admitting Unavailable ZAYAS, OFELIA E Attending Unavailable GLAUTHESTRADA, CHUY Referring Unavailable SHARON, WU A Primary Care Unavailable SHARON, WU A Referring Unavailable SHARON, WU A Primary Care Unavailable SHARON, WU A Referring Unavailable SHARON, WU A Primary Care Unavailable SHARON, WU A Primary Care Unavailable ROCA, DEE Referring Unavailable SHARON, WU A Primary Care Unavailable ROCA, DEE Referring Unavailable SHARON, WU A Primary Care Unavailable ROCA, DEE Referring Unavailable SHARON, WU A Primary Care Unavailable ROCA, DEE Attending Unavailable SHARON, WU A Primary Care Unavailable ROCA, DEE Referring Unavailable SHARON, WU A Primary Care Unavailable ROCA, DEE Referring Unavailable SHARON, WU A Primary Care Unavailable LESLI SOLANO Attending Unavailable SHARON, WU A Primary Care Unavailable SHARON, WU A Primary Care Unavailable WU HOGAN Attending Unavailable OFELIA MERRITT Referring Unavailable SHARON, WU A Primary Care Unavailable DEE ROCA Referring Unavailable SHARON, WU A Primary Care Unavailable DAISY HILLIARD Attending Unavailable SHARON, WU A Primary Care Unavailable DAISY HILLIARD Referring Unavailable SHARON, WU A Primary Care Unavailable VENKATA WISE Attending Unavailable SHARON, WU A Primary Care Unavailable JOSE HACKETT Attending Unavailable SHARON, WU A Primary Care Unavailable WU SALCEDO Attending Unavailable SHARON, WU A Primary Care Unavailable SHARON, WU A Primary Care Unavailable SHARON, WU A Primary Care Unavailable NILAY MERRITTEN Attending Unavailable SHARON, WU A Primary Care Unavailable CARMEN SIEGEL Attending Unavailable SHARON, WU A Referring Unavailable SHARON, WU A Primary Care Unavailable SHARON, WU A Primary Care Unavailable PARI LIVINGSTON Attending Unavailable FRANKIE VARELA Attending Unavailable SHARON, WU A Primary Care Unavailable SHARON, WU A Primary Care Unavailable SHARON, WU A Attending Unavailable SHARON, WU A Primary Care Unavailable SARA CONDON Attending Unavailable SHARON, WU A Primary Care Unavailable SARA CONDON Referring Unavailable SHARON, WU A Primary Care Unavailable FRANKIE VARELA Attending Unavailable SHARON, WU A Primary Care Unavailable KNFRANKIE WALKER Referring Unavailable SHARON, WU A Primary Care Unavailable SHARON, WU A Primary Care Unavailable SHARON, WU A Primary Care Unavailable SHARON, WU A Primary Care Unavailable SHARON, WU A Referring Unavailable SHARON, WU A Attending Unavailable SHARON, WU A Primary Care Unavailable SHARON, WU A Primary Care Unavailable Don'DAISY POSADA Attending Unavailable CARMEN SIEGEL Referring Unavailable SHARON, WU A Primary Care Unavailable O'DAISY POSADA Attending Unavailable CARMEN SIEGEL Referring Unavailable SHARON, WU A Primary Care Unavailable O'ALBINODAISY DEL VALLE Attending Unavailable JUSTMELISSACARMEN Referring Unavailable SHARON, WU A Primary Care Unavailable RICHARD SALAZAR Attending Unavailable SHRUTHI HANEY Referring Unavailable SHARON, WU A Primary Care Unavailable JUST CARMEN Referring Unavailable SHARON, WU A Primary Care Unavailable CARMEN SIEGEL Referring Unavailable SHARON, WU A Primary Care Unavailable SHARON, WU A Attending Unavailable SHARON, WU A Primary Care Unavailable SHRUTHI HANEY Attending Unavailable SHARON, UW A Primary Care Unavailable SHARON, WU A Primary Care Unavailable SIRI ESPITIA Referring Unavailable SHARON, WU A Primary Care Unavailable LESLI SOLANO Referring Unavailable SHARON, WU A Primary Care Unavailable LESLI SOLANO Referring Unavailable DEE ROCA Attending Unavailable SHARON, WU A Primary Care Unavailable WU HOGAN Attending Unavailable DEE ROCA Referring Unavailable SHARON, WU A Primary Care Unavailable DAISY HILLIARD Attending Unavailable SHARON, WU A Primary Care Unavailable SHARON, WU A Primary Care Unavailable DEE ROCA Attending Unavailable DAISY DIEGO Referring Unavailable SHARON, WU A Primary Care Unavailable FRANKIE VARELA Attending Unavailable SHARON, WU A Primary Care Unavailable FRANKIE VARELA Referring Unavailable SHARON, WU A Primary Care Unavailable SALMA PANDEY Attending Unavailable SHARON, WU A Primary Care Unavailable SALMA PANDEY Referring Unavailable SHARON, WU A Primary Care Unavailable SHARON, WU A Primary Care Unavailable DEE ROCA Attending Unavailable SHARON, WU A Primary Care Unavailable CLEMENT SHEEHAN Attending Unavailable SHARON, WU A Primary Care Unavailable WU HOGAN Referring Unavailable SHARON, WU A Primary Care Unavailable PARI LIVINGSTON Attending Unavailable SHARON, WU A Primary Care Unavailable SHARON, WU A Attending Unavailable SHARON, WU A Primary Care Unavailable SMILEY CARRILLO Attending Unavail able SHARON, WU A Primary Care Unavailable SHARON, WU A Referring Unavailable SHRUTHI HANEY Attending Unavailable SHARON, WU A Primary Care Unavailable PESHRUTHI GAYTAN Referring Unavailable SHRAON, WU A Primary Care Unavailable PESHRUTHI GAYTAN Referring Unavailable SHARON, WU A Primary Care Unavailable SHRUTHI HANEY Attending Unavailable SHARON, WU A Primary Care Unavailable CAROLE TALAVERA Attending Unavailable SHARON, WU A Primary Care Unavailable JOSE CRUZ ESPITIA Attending Unavailable SHARON, WU A Primary Care Unavailable SHARON, WU A Primary Care Unavailable OFELIA MERRITT Referring Unavailable Roof BROKER IN CHARGE, Wade H Attending Unavailable Sharon, Wu Primary Care Unavailable Sharon, Wu Referring Unavailable Sharon, Wu Primary Care Unavailable Hakeem Pate Attending Unavailable Hsaron, Wu Primary Care Unavailable SeeHakeem langford Attending Unavailable Sharon, Wu Referring Unavailable Sharon, Wu Primary Care Unavailable Joann, Pratibha Attending Unavailable Sharon, Wu Primary Care Unavailable Gustavo Rosado Attending Unavailable Sharon, Wu Primary Care Unavailable Joann, Pratibha Referring Unavailable Joann, Pratibha Attending Unavailable Sharon, Wu Primary Care Unavailable Joann, Pratibha Referring Unavailable Joann, Pratibha Attending Unavailable Sharon, Wu Primary Care Unavailable Ulises Garcia Attending Unavailable Sharon, Wu Primary Care Unavailable Roly Abarca Attending Unavailable Sharon, Wu Primary Care Unavailable Ruben Moffett Attending Unavailable Sharon, Wu Primary Care Unavailable Hakeem Pate Attending Unavailable Sharon, Wu Primary Care Unavailable Hakeem Pate Attending Unavailable Sharon, Wu Primary Care Unavailable Hakeem Pate Attending Unavailable Sharon, Wu Primary Care Unavailable Gustavo Rosado Attending Unavailable Sharon, Wu Primary Care Unavailable Kaylin Patel Attending Unavailable Sharon, Wu Primary Care Unavailable Logan Crespo Attending Unavailable Sharon, Wu Primary Care Unavailable Too Bob Attending Unavailable Sharon, Wu Primary Care Unavailable Federico Gautam Attending Unavailable Sharon, Wu Primary Care Unavailable Neetu, John Referring Unavailable Neetu John Attending Unavailable Sharon, Wu Primary Care Unavailable Filiberto Ayman Referring Unavailable Filiberto Ayman Attending Unavailable Ulises Garcia Attending Unavailable Sharon, Wu Primary Care Unavailable Sharon, Wu Primary Care Unavailable Hakeem Pate Attending Unavailable Sharon, Wu Primary Care Unavailable Sharon, Wu Referring Unavailable Hakeem Dailey Attending Unavailable Sharon, Wu Primary Care Unavailable Hakeem Pate Attending Unavailable Allergies Allergy Classification Reported Allergen(s) Allergy Type Date of Onset Reaction(s) Facility (20 sources) earings [Other] Propensity to adverse reactions 8 Other: See Comments [facility] Work Phone: (20 sources) Green Dye; Translations: [GREEN DYE] Drug Allergy 2 [facility] (20 sources) Contact Metal Agent; Translations: [CONTACT METAL AGENT] Propensity to adverse reactions to drug 3 Other: See Comments, [facility] Work Phone: (20 sources) Quinolones; Translations: [QUINOLONES] Propensity to adverse reactions to drug 5 Myalgia [facility] (11 sources) Quinolones (Antibiotic) Propensity to adverse reactions to drug 5 Myalgia [facility] Work Phone: (1 source) Quinolones (Antibiotic) Drug allergy (disorder) 5 [facility] Repository Medications Current Medications Medication Drug Class(es) Dates Sig (Normalized) Sig (Original) Acetaminophen (2 sources) Start: 04-02-2021 acetaminophen (TYLENOL) tablet 650 mg take 2 tablets by mo uth every six hours as needed Tylenol 500 mg oral tablet ; 2 tab(s) or ally every 6 hours, As Needed Quantity: 0 Refills: 0 Ordered: 21-Nov-2021 Temi Colbert Generic Substitution Allowed acetaminophen 325 mg / oxyCODONE hydrochloride 5 mg oral tablet (20 sources) Opioid Agonist Start: 01-25-2025 End: 01-30-2025 take 1 tablet by mouth every six hours as needed oxyCODONE-acetaminophen (PERCOCET) 5-325 mg tablet Indications: Biliary dyskinesia Take 1 tablet by mouth every 6 hours as needed for up to 5 days. 20 tablet 01/25/2025 10:23 AM EDT 01/25/2025 01/30/2025 Active Start: 12-31-2024 End: 03-07-2025 oxyCODONE-acetaminophen (PER COCET) 5-325 mg tablet 12/31/2024 03/07/2025 Discontinued (Course of therapy completed) amoxicillin 875 mg / clavulanate 125 mg [...] a day. 20 capsule 08/27/2024 09/19/2024 Discontinued cetirizine hydrochloride 10 mg oral tablet (2 sources) Histamine-1 Receptor Antagonist Start: 03-22-2025 End: 04-21-2025 take 1 tablet by mouth once daily cetirizine (ZYRTEC) 10 mg tablet Take 1 tablet by mouth once daily. 30 tablet 03/22/2025 04/21/2025 Active clindamycin 300 mg oral capsule (4 sources) [...] 14 days. 30 g 07/11/2024 07/25/2024 Active docusate sodium 100 mg oral capsule (7 sources) Start: 03-07-2025 take 1 capsule by mouth twice daily docusate sodium (COLACE) 100 mg capsule Take 1 capsule by mouth two times a day. 60 capsule 5 03/07/2025 Active Ethinyl Estradiol / Levonorgestrel (5 sources) Progestin, [...] 1 dose. 1 tablet 10/18/2024 10/18/2024 Active fluticasone propionate 0.05 mg/actuat metered dose nasal spray (2 sources) Corticosteroid Start: 2024 End: 2024 take 1 spray(s) nasal route once daily fluticasone (FLONASE ALLERGY RELIEF) 50 mcg/actuation nasal spray Use 1 spray in each nostril once daily. 11.1 mL 1 03/22/2025 04/21/2025 Active folic acid 1 mg oral tablet (20 sources) Start: 2022 take 1 tablet by mouth once daily folic acid 1 mg tablet Take 1 tablet by mouth once daily. 30 tablet 2 06/01/2023 Active Comment on above: Take 1 tablet by yane once daily. gabapentin 300 mg oral capsule (7 sources) Anti-epileptic Agent take 1 capsule by mouth once daily gabapentin (NEURONTIN) 300 mg capsule Take 300 mg by mouth once daily. Active meloxicam 7.5 mg oral tablet (3 sources) Nonsteroidal Anti-inflammatory Drug Start: 2024 take 1 tablet by mouth once daily meloxicam (MOBIC) 7.5 mg tablet Take 1 tablet by mouth once daily. 30 tablet 1 03/15/2025 Active methylPREDNISolone (3 sources) Corticosteroid Start: 2024 [...] / nitrofurantoin, monohydrate 75 mg oral capsule (4 sources) Nitrofuran Antibacterial Start: 02-28-2025 End: 03-05-2025 take 1 capsule by mouth twice daily nitrofurantoin monohydrate and macrocrystal (MACROBID) 100 mg capsule Indications: Acute cystitis without hematuria Take 1 capsule by mouth two times a day for 5 days. 10 capsule 02/28/2025 03/05/2025 Active Start: 08-17-2023 End: 08-24-2023 take 1 capsule by mouth twice daily nitrofurantoin monohydrate and macrocrystal (MACROBID) 100 mg capsule Indications: 23 weeks gestation of , Supervision of high risk , antepartum Take 1 capsule by mouth two times a day for 7 days. 14 capsule 0 08/17/2023 08/24/2023 Active Comment on above: Take 1 capsule by mo ut two times a day for 7 days. ondansetron 4 mg disintegrating oral tablet (20 sources) Serotonin-3 Receptor Antagonist Start: 07-31-19 End: 03-17-20 take 1 tablet by mouth every eight [...] disintegrating tablet 4 mg (1 source) Start: 04-02-2021 ondansetron (ZOFRAN-ODT) disintegrating tablet 4 mg perflutren lipid microspheres 1.3 mL in NaCl (PF) 0.9% 10 mL injection (DEFINITY) (20 sources) Start: 12-05-2022 End: 03-05-2024 perflutren lipid microspheres 1.3 mL in NaCl (PF) 0.9% 10 mL injection (DEFINITY) polyethylene glycol 3350 78217 mg powder for oral solution (20 sources) Osmotic Laxative Start: 06-23-2024 polyethylene glycol 3350 (MIRALAX) 17 gram/dose powder Indications: Constipation, unspecified constipation type Take 17 g by mouth once daily. Dissolve dose in 4 - 8 ounces of liquid and take as directed. 765 g 1 06/23/2024 Active Start: 11-07-2022 End: 03-17-2024 polyethylene glycol 3350 (MO RALAX) 17 gram/dose powder Indications: Chronic constipation Take 17 g by mouth twice daily. 527 g 2 11/07/2022 03/17/2024 Discontinued (Course of therapy completed) Comment on above: Take 17 g by mouth t wice daily. predniSONE 20 mg oral tablet (2 sources) Start: 3 End: 3 take 2 tablets by mouth once daily predniSONE (DELTASONE) 20 mg tablet Take 2 tablets by mouth once daily for 5 days. 10 tablet 0 12/10/2022 12/15/2022 Active Comment on above: Take 2 tablets by [facility] once daily for 5 days. sertraline 100 mg oral tablet (1 source) Serotonin Reuptake Inhibitor take 1 tablet by mouth once daily sertraline 100 mg oral tablet ; 1 tab(s) orally once a day Quantity: 0 Refills: 0 Ordered: 21-Nov-2021 Dilan Benoit Generic Substitution Allowed 125 ml sodium chloride 9 mg/ml prefilled syringe (20 sources) Start: 3 End: 4 sodium chloride 0.9 % (flush) 10 mL [...] 07/07/2024 Active valACYclovir 500 mg oral tablet (20 sources) Herpesvirus Nucleoside Analog DNA Polymerase Inhibitor, [...] Drug Class(es) Dates Sig (Normalized) Sig (Original) [id number] 200 actuat albuterol 0.09 mg/actuat metered dose [...] needed for Wheezing/Shortness of Breath (tight cough). aluminum hydroxide 80 mg/ml / magnesium hydroxide 80 mg/ml / simethicone 8 mg/ml oral suspension (20 sources) Start: 09-11-2023 End: 03-07-2025 take 30 mL by mouth every six hours as needed aluminum & magnesium hydroxide-simethicon e (MYLANTA MAXIMUM STRENGTH) 400-400-40 mg/5 mL suspension Take 30 mL by mouth every 6 hours as needed. 335 mL 09/11/2023 03/07/2025 Discontinued (Course of therapy completed) Comment on above: Take 30 mL by mouth every 6 hours as needed. ARIPiprazole 2 mg oral tablet (20 sources) Atypical Antipsychotic Start: 01-11-2024 End: 06-23-2024 take 1 tablet by mouth once daily ABILIFY 2 mg tablet Take 2 mg by mouth once daily. 01/11/2024 06/23/2024 Discontinued (Discontinued by Patient) Benzocaine (1 source) Standardized Chemical Allergen Start: 04-14-2024 End: 04-14-2024 1 [place], TOPICAL, DIRECTED, Starting on Ashley 04/14/24 at [...] on above: Take 1 capsule by mo [facility] three times daily for 10 days. Take 1 capsule by mo [facility] every 6 hours. cholecalciferol 0.05 mg [...] 1 capsule by mo ut once daily. Take 1 tablet by yane once daily. Comp Stocking,Knee,Regular, Med misc (5 [...] sources) Histamine-1 Receptor Antagonist Start: 04-14-20 End: 04-14-20 12.5-50 mg, INTRAVENOUS, DIRECTED, Starting on Ashley [...] Comment on above: Take 1 capsule by [facility] every 6 hours as needed. For itching and insomnia. doxylamine succinate 10 mg / pyridoxine hydrochloride 10 mg delayed release oral tablet (7 sources) Start: 06-01-20 doxylamine-pyridoxin e, vit B6, (DICLEGIS) 10-10 mg [facility] Indications: Morning sickness Take 2 tabs at [...] sources) Serotonin and Norepinephrine Reuptake Inhibitor Start: 08-22-19 End: 11-26-19 take 1 capsule by mouth once daily DULoxetine (CYMBALTA) 20 mg capsule Indications: Hypermobility arthralgia , Severe episode of recurrent major depressive disorder, without psychotic features (HCC) , ÁLVARO (generalized anxiety disorder) , Chronic low back pain, unspecified back pain laterality, unspecified whether sciatica present , History of alcohol abuse Take 1 capsule by mouth once daily. 90 capsule 1 09/19/2024 11/25/2024 Discontinued enteric contrast (will be provided with radiology test) (4 sources) Start: 03-07-20 End: 03-08-20 enteric contrast (will be provided with radiology test) For CT ABD/PEL W IVCON Routine order Administer, As Directed One Time Only, via Oral, Rectal, both Oral and Rectal, Enteric Tube, Stoma or Indwelling Catheter, Enteric Contrast as designated per enteric contrast guidelines 1 each 03/07/2025 03/08/2025 Start: 03-07-2025 End: 03-08-2025 enteric contrast (will be pr ovided with radiology test) For CT ABD/PEL W IVCON Routine order Administer, As Directed One Time Only, via Oral, Rectal, both Oral and Rectal, Enteric Tube, Stoma or Indwelling Catheter, Enteric Contrast as designated per enteric contrast guidelines 1 each 03/07/2025 03/08/2025 Active Start: 12-16-2024 End: 12-17-2024 1 ml fentaNYL 0.05 mg/ml injection (1 source) Opioid Agonist Start: 04-14-2024 End: 04-14-2024 25-100 mcg, INTRAVENOUS, DIRECTED, Starting on Ashley 04/14/24 at 1030, Until Ashley 04/14/24 at 1429, DOSING DIRECTED BY PHYSICIAN FOR PROCEDURAL SEDATION ONLY, Intraprocedure FLUoxetine 20 mg oral capsule (18 sources) Serotonin Reuptake Inhibitor Start: 09-04-2022 End: 02-24-2023 take 1 capsule by mouth once daily FLUoxetine (PROZAC) 20 mg capsule Take 20 mg by mouth once daily. 0 09/04/2022 02/24/2023 Discontinued Start: 03-27-2021 End: 01-03-2022 PROzac 20 mg oral capsule Do se : 20 mg = 1 cap(s), Oral, qDay, # 60 cap(s), 0 Refill(s) Start Date: 05/28/21 Status: Ordered Comment on above: Take 1 capsule by mo [facility] once daily. Take 20 mg by mouth [...] Comment on above: Take 1 tablet by [facility] three times daily as needed for anxiety. hyoscyamine sulfate 0.125 mg sublingual tablet (20 sources) Start: 03-17-20 End: 03-07-20 take 1 tablet under the tongue every four hours as needed hyoscyamine sublingual (LEVSIN/SL) 0.125 mg Indications: RUQ pain Dissolve 1 tablet under the tongue every 4 hours as needed (for abdominal pain). 60 tablet 2 03/17/2024 03/07/2025 Discontinued (Course of therapy completed) iv contrast (will be provided with radiology test) (4 sources) Start: 03-07-20 End: 03-08-20 iv contrast (will be provided with radiology test) CT ABD/PEL -Inject, intravenously, once for 1 dose.No IV access, insert saline lock prior to the beginning of sedation, infusion, injection of imaging exam. Discontinue saline lock post exam. If Pt. has a central line or IVAD, may access for administration according to line specific nursing protocol. Once exam is complete flush line and de-access according to line specific nursing protocol in theCT contrast administration guidelines link. 1 each 03/07/2025 03/08/2025 Start: 03-07-2025 End: 03-08-2025 iv contrast (will be provide d with radiology test) CT ABD/PEL -Inject, intravenously, once for 1 dose.No IV access, insert saline lock prior to the beginning of sedation, infusion, injection of imaging exam. Discontinue saline lock post exam. If Pt. has a central line or IVAD, may access for administration according to line specific nursing protocol. Once exam is complete flush line and de-access according to line specific nursing protocol in theCT contrast administration guidelines link. 1 each 03/07/2025 03/08/2025 Active Start: 12-16-2024 End: 12-17-2024 lamoTRIgine 25 mg oral tablet (20 sources) Mood Stabilizer, Anti-epileptic Agent Start: 07-18-2022 End: 01-03-2022 take 1 tablet by mouth once daily [...] tablet (20 sources) Atypical Antipsychotic Start: 07-08-20 End: 12-22-19 take 1 tablet by mouth once daily lurasidone (LATUDA) 20 mg tablet Take 20 mg by mouth once daily. 0 07/08/2023 12/22/2023 Discontinued Start: 12-05-2022 take 1 tablet by mouth once delmis rasidone (LATUDA) 40 mg tablet Take 1 tablet by mouth once daily. Per psych: Dr. Ray 0 12/05/2022 Active Comment on above: Take 1 tablet by yane th once daily. Per psych: Dr. Ray Take 20 mg by mouth once daily. metFORMIN hydrochloride 500 mg oral tablet (20 sources) Biguanide Start: End: take 1 tablet by mouth [...] by yane th twice daily with meals. methocarbamol 500 mg oral tablet (20 sources) Muscle Relaxant End: methocarbamol (ROBAXIN) 500 mg tablet Take 500 mg by mouth as needed (from [place]). 03/07/2025 Discontinued (Course of therapy completed) 5 ml midazolam 1 mg/ml injection (1 [...] capsule (20 sources) Proton Pump Inhibitor Start: End: take 1 capsule by mouth once daily omeprazole (PRILOSEC) 20 mg capsule Indications: Nausea and vomiting, unspecified vomiting type , Heartburn take 1 capsule by mouth once daily 30 capsule 3 01/08/2023 12/22/2023 Discontinued Comment on above: Take 1 capsule by mo ut once daily. take 1 capsule by mo ut once daily pantoprazole 40 mg delayed release oral tablet (20 sources) Proton Pump Inhibitor Start: 024 End: take 1 tablet by mouth once daily pantoprazole DR (PROTONIX) 40 mg tablet Indications: RUQ pain take 1 tablet by mouth once daily AT LEAST 30 MINUTES BEFORE EATING 90 tablet 2 12/29/2024 03/07/2025 Discontinued (Course of therapy completed) phenazopyridine hydrochloride 200 mg oral tablet (20 sources) Start: 025 End: take 1 tablet by mouth three times daily as needed phenazopyridine (PYRIDIUM) 200 mg tablet Indications: dysuria Take 1 tablet by mouth three times a day as needed. 6 tablet 02/28/2025 03/07/2025 Discontinued (Course of therapy completed) Start: 08-17-2023 take 1 tablet by yane three times daily as needed phenazopyridine (PYRIDIUM) 100 mg tablet Indications: 23 weeks gestation of , Supervision of high risk , antepartum Take 1 tablet by mouth three times a day as needed. 9 tablet 0 08/17/2023 Active Comment on above: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 or muscle weakness Integumentary/Breast Denies: rash or new lesions Neurological Denies: headache(s), dizziness or confusion Endocrine Reports: fatigue; Denies: excessive sweating Hematologic/Lymphatic Denies: easy bruising or easy bleeding Allergic/Immunologic Denies: wheezing Exam Mental Status Exam - Psych Appearance c (more content not included)... Normal [facility] L3410.9992on 03-31-2025 [facility] Misc. COMMENT Normal . [facility] Comment on above: Order Comment: [id number] 0MED TOX UR RMT Result Comment: Test Ordered: [id number] Amphetamines Screen, Urine Negative ng/mL UI Reference Range: Pghhrt=547 Amphetamine test includes Amphetamine and Methamphetamine. Barbiturates Negative ng/mL UI Reference Range: Jrqtjb=842 Benzodiazepines Negative ng/mL UI Reference Range: Oqsaeh=409 Cocaine (Metab.), Urine Negative ng/mL UI Reference Range: Uyepbw=601 Opiates Negative ng/mL UI Reference Range: Rcuomk=229 Opiate test includes Codeine, Morphine, Hydromorphone, Hydrocodone. 6-Acetylmorphine, Urine Negative ng/mL UI Reference Range: Cutoff=10 Oxycodone/Oxymorphone, Urine Negative ng/mL UI Reference Range: Dpsghd=073 Test includes Oxycodone and Oxymorphone PCP, Urine Negative ng/mL UI Reference Range: Cutoff=25 Methadone Screen, Urine Negative ng/mL UI Reference Range: Mjurte=884 Propoxyphene, Urine Negative ng/mL UI Reference Range: Vipkyz=991 Fentanyl, Urine Negative ng/mL UI Reference Range: Cutoff=2.0 Test includes Fentanyl and Norfentanyl This test was developed and its performance characteristics determined by [facility]. It has not been cleared or approved by the Food and Drug Administration. Tramadol Negative ng/mL UI Reference Range: Jixbfo=185 Buprenorphine, Urine Negative ng/mL UI Reference Range: Cutoff=10 Creatinine, Urine 31.5 mg/dL UI Reference Range: 20.0-300.0 pH, Urine 7.0 UI Reference Range: 4.5-8.9 Performed at: [address] [id number] Supervisor Packing Room: Ted Roberts PhD, Phone: [phone] Performed at: [address] [id number] Supervisor Packing Room: Jorge Tracey PhD, Phone: [phone] Performed By: #### L 128.3586, C920.1091, L359.4421, P767.2424 #### [facility] Laboratory [facility] [place], [place], [id number] CNOVon 03-30-2025 CNOV Normal [facility] Prolactin SerPl-mCncon 03-30 Prolactin [Mass/Vol] 16.4 ng/mL Normal 4.4-33.8 [facility] Comment on above: Order Comment: Speci men Type: BLOOD SPECIMENOrdering Facility: [facility] Address: [address] [place] [address] Result Comment: Prol actin test is performed using the [employer] Electrochemiluminescence Immunoassay method. Results obtained with different methods or kits cannot be used interchangeably. Performed By: #### 3 016-3, 2842-3 ####[facility] [id number] [place] [address] [place] TSH SerPl-aCncon 03-30-2025 TSH Qn 0.935 m[IU]/L Normal 0.270-4.200 [facility] Comment on above: Order Comment: Speci men Type: BLOOD SPECIMENOrdering Facility: [facility] Address: [address] [place] [address] Result Comment: If t he patient is , TSH reference range varies by gestational period:First Trimester (weeks 9-12): 0.180-2.990 mIU/LSecond Trimester: 0.110-3.980 mIU/LThird Trimester: 0.480-4.710 mIU/Cassie Enrique et al. A Practical Approach for the Verifications and Determination of Site- and Trimester-Specific Reference Intervals for Thyroid Function tests in . Thyroid, 2019:29:3:412-420. Joe E, et al. 2017 Guidelines of the [place] [employer] for the Diagnosis and Management of Thyroid Disease during and the . Thyroid, 2017:27:3:315-389. Performed By: #### 3 016-3, 2842-3 ####[facility] [id number] [place] [id number] [place] ,Urineon 03-29-2025 Beta HCG ( test) Ql (U) Negative Normal [facility] Comment on above: Result Comment: Very dilute urine specimens, as indicated by a low specific gravity, may not contain licensing representative levels of hCG. If is still suspected, a first morning urine specimen should be collected 48 hours later and tested. Performed By: #### L 100.0100, L300.4310, L300.3900, L700.6800 #### [facility] Laboratory [address] [place], [address] Urine Drug Screen (VISTA)on 03-29-2025 AMPHETAMINES Negative Normal <1000 ng/mL [facility] Comment on above: Order Comment: UNK Performed By: #### L 100.0100, L300.4310, L300.3900, L700.6800 #### [facility] Laboratory [address] [place], [address] BARBITIURATES Negative Normal < 200 ng/mL [facility] Comment on above: Order Comment: UNK Performed By: #### L 100.0100, L300.4310, L300.3900, L700.6800 #### [facility] Laboratory [address] [place], [address] BENZODIAZIPINE Negative Normal < 200 ng/mL [facility] Comment on above: Order Comment: UNK Performed By: #### L 100.0100, L300.4310, L300.3900, L700.6800 #### [facility] Laboratory [address] [place], [address] BUP Ur Drug Scr Negative Normal < 200 ng/mL [facility] Comment on above: Order Comment: UNK Performed By: #### L 100.0100, L300.4310, L300.3900, L700.6800 #### [facility] Laboratory [address] [place], [address] COCAINE Negative Normal < 300 ng/mL [facility] Comment on above: Order Comment: UNK Performed By: #### L 100.0100, L300.4310, L300.3900, L700.6800 #### [facility] [address] [place], [address] Fentanyl Negative Normal <5 ng/mL [facility] Comment on above: Order Comment: UNK Result Comment: CONF IRMATORY TESTING FOR ALL POSITIVE URINE DRUG SCREEN RESULTS WILL ONLY BE SENT OUT UPON PHYSICIAN ORDER. Livier Pro Urine Drug Screen methods provide only preliminary analytical test results. A more specific alternate chemical method must be used in order to obtain a confirmed analytical result. Gas chromatography/mass spectrometery (GC/MS) is the preferred confirmatory method. Clinical consideration and professional judgement should be applied to any drug of abuse test result, particularly when preliminary positive results are used. Urine TCA testing must be ordered separately. Use test mnemonic: UTCA Performed By: #### L 100.0100, L300.4310, L300.3900, L700.6800 #### [facility] [address] [place], [address] METHADONE Negative Normal < 300 ng/mL [facility] Comment on above: Order Comment: UNK Performed By: #### L 100.0100, L300.4310, L300.3900, L700.6800 #### [facility] [address] [place], [address] OPIATES Negative Normal < 300 ng/mL [facility] Comment on above: Order Comment: UNK Performed By: #### L 100.0100, L300.4310, L300.3900, L700.6800 #### [facility] Laboratory [address] [place], [address] OXYCODONE Negative Normal < 100 ng/mL [facility] Comment on above: Order Comment: UNK Performed By: #### L 100.0100, L300.4310, L300.3900, L700.6800 #### [facility] [address] [place], [address] PCP Negative Normal < 25 ng/mL [facility] Comment on above: Order Comment: UNK Performed By: #### L 100.0100, L300.4310, L300.3900, L700.6800 #### [facility] [address] [place], [address] THC Negative Normal < 50 ng/mL [facility] Comment on above: Order Comment: UNK Performed By: #### L 100.0100, L300.4310, L300.3900, L700.6800 #### [facility] Laboratory [address] [place], [address] L/S Spine Min 4 Viewson 03-13 L/S Spine Min 4 Views [facility] Imaging Services [address] [place] [address] L/S Spine Min 4 Views MR#: [id number] Acct: [id number] Name: DORY ANDREWS Rep #: [id number] : 2000 F 24 From: Jr guidry MD PCP: Dr. Wu Herrera MD Status: DEP AMB Study: L/S Spine Min 4 Views Date of Exam: 03/24/25 Exam# [id number] Ordering Dr: Pratibha David PROCEDURE: L/S SPINE MIN 4 VIEWS 03/24/2025 REASON FOR EXAM: BACK PAIN X 1 1/2 YEARS, NKI TECHNIQUE: Procedure Code: RADSPLS Modality: DX Procedure: L/S SPINE MIN 4 VIEWS COMPARISON: None FINDINGS: Curvature: No significant scoliosis. Other findings: The disc spaces are well-maintained. No abnormal movement occurs during the flexion-extension maneuvers. Other: Moderate amount of feces seen in the colon. RAD/L/S Spine Min 4 Views IMPRESSION: Unremarkable lumbar spine. Reading Location: [facility] CC: BRODIE Fu; Dr. Wu Herrera MD Clerk Rating: Signed Normal [facility] Orthopedic Visit Reporton Orthopedic Visit Report [facility] [address] [place] [address] [address] [place] [address] OFFICE VISIT Date of Service: 03/24/25 MR#: [id number] Acct: [id number] Name: DORY ANDREWS Rep #: [id number] : 2000 Provider: BRODIE Fu Age/Sex: 24/F Location: [facility] Status: Signed Intake Vital Signs 03/06/25 16:59 Height 5 ft 2 in Intake Visit Reasons: LUMBAR SPINE Chief Complaint: lumbar spine Is patient in pain?: Yes (lumbar ) Pain scale (1-10): 6 Allergies Quinolones Allergy (Verified 03/24/25 13:03) PT UNSURE OF REACTION Medications ???Medication ???Instructions ???Recorded ???Confirmed ???Type Compression Stockings Knee High #1 ea 09/06/24 02/07/25 Rx valacyclovir 500 mg tablet 500 mg PO QDAY 11/21/24 03/24/25 H istory baclofen 10 mg tablet 10 mg PO TID PRN muscle spasm/pain 03/24/25 03/24/25 Rx #30 tabs PFSH Medical History Insomnia Chronic gastritis Former smoker depression History of anorexia nervosa Vitamin B12 deficiency Abdominal bloating Constipation History of marijuana use Generalized anxiety disorder Bipolar 1 disorder, depressed, moderate PTSD (post-traumatic stress disorder) Tobacco abuse Osteopenia GERD (gastroesophageal reflux disease) Asthma Migraines ( 12/08/23) Alcohol withdrawal Desire for detoxification History of cocaine use Alcohol use disorder Surgical History S/P cholecystectomy History of surgery Family History Other Alcoholism Anxiety Arthritis Asthma COPD (chronic obstructive pulmonary disease) Depression High cholesterol Schizophrenia Social History housing: apartment Smoking Status: Current every day smoker tobacco type: e-cigarettes alcohol intake: current alcohol intake frequency: a few times a week Previous attempts at quittin details: 3 drinks per week substance use type: does not use HPI LUMBAR SPINE Details: This documentation accurately reflects the service provided and the decisions made by Pratibha anders PA 03/24/25 1300. Part of today???s visit was documented by Ofelia De Paz RN, acting as scribe. DORY ANDREWS is a 24 year old F here today for lumbar spine pain. She reports pain since high school but it has progressively been getting worse over the last year. Says that her symptoms have been worsening over the last 6 months. Says that for the last month she also has started to notice some right sided groin pain, this is not a consistent issue and only comes and goes. The low back pain is worse on the right side. She denies numbness, tingling or radicular pain. She reports intermittent issues with her balance. She is not able to walk long distances, she has to stop frequently. Sitting improves the pain. Patient says that she only went to about 3 weeks of physical therapy before she had to stop due to other health concerns. She did not notice any improvement with the physical therapy after she completed it. She was taught a home exercise program which she had been completing as needed several times per week. Movement increases the pain. At the grocery store she has to lean on the shopping cart. She did PT over the winter, she reports minimal improvement with this. She has not seen pain management. She has not had an MRI only a CT. She denies previous injury or surgery to her lumbar spine. No diabetes, no heart or lung issues, no blood thinners. She does see a manager of exhibitions and collections who was evaluating her for inflammatory/autoimmune issues all of which have came back negative. Ortho Exam General General: Yes no acute distress Neurologic: Yes alert and Yes oriented x3 Psychologic: Yes reasonable and appropriate Spine SPINE TESTING CERVICAL THORACIC LUMBAR Musculoskeletal Strength 0=absent - 5=normal Details: Neurological exam of the lower extremities shows 5x5 power. Increased right sided lower back pain and posterior hip pain with right knee extension. Normal sensations across all dermatomes. No hyperreflexia. There is mild midline tenderness, no paraspinal tenderness. Coding Level of Care Code Off vis,new,level 4 Diagnoses Lumbar radiculopathy M54.16 Chronic right-sided low back pain without sciatica M54.50; G89.29 Chronicity: chronic Back pain laterality: right Sciatica presence: without sciatica Assessment and Plan Assessment and Plan (1) Lumbar radiculopathy: Status: Acute (2) Low back pain: Status: Acute Qualifiers: Chronicity: chronic Back pain laterality: right Sciatica presence: without sciatica Qualified Code(s): M54.50 - Low back pain, unspecified; G89.29 - Other (more content not included)... Normal [facility] CNOVon 03-22-2025 CNOV Normal [facility] UA DIP,URINE HCG (POC)on Beta HCG ( test) Ql (U) Negative Negative [facility] Barrel Polisher (POCT) Internal QC OK [facility] Location:[facility], [address] [place] [address], [place], [place], [id number] [place] [address] POINT OF CARE [facility] CT ABD/PEL W IVCONon 025 CT ABD/PEL W IVCON * * *Final Report* * * DATE OF EXAM: Mar 08 2025 2:34PM [facility] 0530 - CT ABD/PEL W IVCON / PROCEDURE REASON: Infection in abdomen (HCC) * * * * Physician Interpretation * * * * EXAMINATION: CT ABDOMEN AND PELVIS WITH IV CONTRAST CLINICAL HISTORY: Right lower quadrant abdominal pain TECHNIQUE: CT of the abdomen and pelvis was performed using standard technique, scanning from just above the dome of the diaphragm to the symphysis pubis. MQ: CTAP_3 Contrast: IV: 100 ml of Omnipaque 300 Oral: 425 ml of Omni 240 10-25ml diluted with water CT Radiation dose: Integrated Dose-length product (DLP) for this visit = 323.69 mGy*cm. CT Dose Reduction Employed: Automated exposure control(AEC) and iterative recon COMPARISON: CT abdomen and pelvis 12/27/2024 RESULT: Liver: No mass. Biliary: No bile duct dilation. Gallbladder is absent. Spleen: No mass. No splenomegaly. Pancreas: No mass or duct dilation. Adrenals: No mass. Kidneys: No mass, calculus or hydronephrosis. GI tract: No dilation or wall thickening. The appendix is not well identified, possibly seen on coronal images 40 through 42 medial to the cecum. There are no inflammatory changes adjacent to cecum/appendix to suggest appendicitis. Lymph nodes: No abdominal or pelvic lymphadenopathy. Mesentery/Peritoneum: No ascites or mass. Retroperitoneum: No mass. Vasculature: - Abdominal aorta and iliac arteries: No aneurysm. - Celiac and SMA: Patent without stenosis. - Portal venous system (SMV, splenic vein, portal vein and branches): Patent. - Hepatic veins: Patent. Pelvis: No mass, ascites or fluid collection. Uterus and bladder are unremarkable. Bones/Soft Tissues: No significant finding. Lower thorax: Unremarkable. Localizer images: No additional findings. IMPRESSION: No acute findings in the abdomen and pelvis. No evidence of appendicitis. Clerk Rating: JOSE Transcribe Date/Time: Mar 08 2025 2:39P Dictated by : CHAPO MCLAIN MD This examination was interpreted and the report reviewed and electronically signed by: CHAPO MCLAIN MD on Mar 08 2025 2:49PM EST [id number] Normal [facility] CT Abdomen and Pelvis W cont rast Momo 03-08-2025 IMPRESSION: No acute findings in the abdomen and pelvis. No evidence of appendicitis. Clerk Rating: [facility] Transcribe Date/Time: Mar 08 2025 2:39P Dictated by : CHAPO MCLAIN MD This examination was interpreted and the report reviewed and electronically signed by: CHAPO MCALIN MD on Mar 08 2025 2:49PM EST [facility] * * *Final Report* * * DATE OF EXAM: Mar 08 2025 2:34PM [facility] 0530 - CT ABD/PEL W IVCON / PROCEDURE REASON: Infection in abdomen (HCC) * * * * Physician Interpretation * * * * EXAMINATION: CT ABDOMEN AND PELVIS WITH IV CONTRAST CLINICAL HISTORY: Right lower quadrant abdominal pain TECHNIQUE: CT of the abdomen and pelvis was performed using standard technique, scanning from just above the dome of the diaphragm to the symphysis pubis. MQ: CTAP_3 Contrast: IV: 100 ml of Omnipaque 300 Oral: 425 ml of Omni 240 10-25ml diluted with water CT Radiation dose: Integrated Dose-length product (DLP) for this visit = 323.69 mGy*cm. CT Dose Reduction Employed: Automated exposure control(AEC) and iterative recon COMPARISON: CT abdomen and pelvis 12/27/2024 RESULT: Liver: No mass. Biliary: No bile duct dilation. Gallbladder is absent. Spleen: No mass. No splenomegaly. Pancreas: No mass or duct dilation. Adrenals: No mass. Kidneys: No mass, calculus or hydronephrosis. GI tract: No dilation or wall thickening. The appendix is not well identified, possibly seen on coronal images 40 through 42 medial to the cecum. There are no inflammatory changes adjacent to cecum/appendix to suggest appendicitis. Lymph nodes: No abdominal or pelvic lymphadenopathy. Mesentery/Peritoneum: No ascites or mass. Retroperitoneum: No mass. Vasculature: - Abdominal aorta and iliac arteries: No aneurysm. - Celiac and SMA: Patent without stenosis. - Portal venous system (SMV, splenic vein, portal vein and branches): Patent. - Hepatic veins: Patent. Pelvis: No mass, ascites or fluid collection. Uterus and bladder are unremarkable. Bones/Soft Tissues: No significant finding. Lower thorax: Unremarkable. Localizer images: No additional findings. [facility] Provider, [facility] [place] - 03/08/2025 * * *Final Report* * * DATE OF EXAM: Mar 08 2025 2:34PM [facility] 0530 - CT ABD/PEL W IVCON / PROCEDURE REASON: Infection in abdomen (HCC) * * * * Physician Interpretation * * * * EXAMINATION: CT ABDOMEN AND PELVIS WITH IV CONTRAST CLINICAL HISTORY: Right lower quadrant abdominal pain TECHNIQUE: CT of the abdomen and pelvis was performed using standard technique, scanning from just above the dome of the diaphragm to the symphysis pubis. MQ: CTAP_3 Contrast: IV: 100 ml of Omnipaque 300 Oral: 425 ml of Omni 240 10-25ml diluted with water CT Radiation dose: Integrated Dose-length product (DLP) for this visit = 323.69 mGy*cm. CT Dose Reduction Employed: Automated exposure control(AEC) and iterative recon COMPARISON: CT abdomen and pelvis 12/27/2024 RESULT: Liver: No mass. Biliary: No bile duct dilation. Gallbladder is absent. Spleen: No mass. No splenomegaly. Pancreas: No mass or duct dilation. Adrenals: No mass. Kidneys: No mass, calculus or hydronephrosis. GI tract: No dilation or wall thickening. The appendix is not well identified, possibly seen on coronal images 40 through 42 medial to the cecum. There are no inflammatory changes adjacent to cecum/appendix to suggest appendicitis. Lymph nodes: No abdominal or pelvic lymphadenopathy. Mesentery/Peritoneum: No ascites or mass. Retroperitoneum: No mass. Vasculature: - Abdominal aorta and iliac arteries: No aneurysm. - Celiac and SMA: Patent without stenosis. - Portal venous system (SMV, splenic vein, portal vein and branches): Patent. - Hepatic veins: Patent. Pelvis: No mass, ascites or fluid collection. Uterus and bladder are unremarkable. Bones/Soft Tissues: No significant finding. Lower thorax: Unremarkable. Localizer images: No additional findings. IMPRESSION IMPRESSION: No acute findings in the abdomen and pelvis. No evidence of appendicitis. Clerk Rating: JOSE Transcribe Date/Time: Mar 08 2025 2:39P Dictated by : CHAPO MCLAIN MD This examination was interpreted and the report reviewed and electronically signed by: CHAPO MCLAIN MD on Mar 08 2025 2:49PM EST [facility] Radiology Study observation (narrative) [facility] CT Abdomen and Pelvis W cont rast IVOrdered By: [facility]cf Provider on 03-08-2025 [facility] CBC W Auto Differential pane l (Bld)on 03-07-2025 Basophils (Bld) [#/Vol] 0.05 10*3/uL [facility] Basophils/100 WBC (Bld) 0.6 % [facility] Differential cell count method Nom (Bld) Auto [facility] Eosinophils (Bld) [#/Vol] 0.06 10*3/uL [facility] Eosinophils/100 WBC (Bld) 0.8 % [facility] Erythrocyte distribution width (RBC) [Ratio] 12.4 % 11.5 - 15.0 % [facility] Hematocrit (Bld) [Volume fraction] 41.2 % 36.0 - 46.0 % [facility] Hemoglobin (Bld) [Mass/Vol] 13.9 g/dL 11.5 - 15.5 g/dL [facility] Immature granulocytes (Bld) [#/Vol] NINF [facility] Immature granulocytes/100 WBC (Bld) 0.1 % [facility] Lymphocytes (Bld) [#/Vol] 2.09 10*3/uL [facility] Lymphocytes/100 WBC (Bld) 26.5 % [facility] MCH (RBC) [Entitic mass] 32.8 pg 26.0 - 34.0 pg [facility] MCHC (RBC) [Mass/Vol] 33.7 g/dL 30.5 - 36.0 g/dL [facility] MCV (RBC) [Entitic vol] 97.2 fL 80.0 - 100.0 fL [facility] Monocytes (Bld) [#/Vol] 0.55 10*3/uL NINF [facility] Monocytes/100 WBC (Bld) 7.0 % [facility] Neutrophils (Bld) [#/Vol] 5.12 10*3/uL [facility] Neutrophils/100 WBC (Bld) 65.0 % [facility] Nucleated RBC (Bld) [#/Vol] NINF [facility] Nucleated RBC/100 WBC (Bld) [Ratio] 0.0 % /100 WBC [facility] Platelet mean volume (Bld) [Entitic vol] 10.2 fL 9.0 - 12.7 fL [facility] Platelets (Bld) [#/Vol] 221 10*3/uL [facility] RBC (Bld) [#/Vol] 4.24 10*6/uL 3.90 - 5.2 0 m/uL [facility] WBC (Bld) [#/Vol] 7.88 10*3/uL [facility] Basophils (Bld) [#/Vol] 0.05 10*3/uL Normal <0.11 [facility] Comment on above: Order Comment: Speci men Type: BLOOD SPECIMENOrdering Facility: [facility] Address: [address] [place] [address] Performed By: #### 5 7021-8 ####[facility] [id number] [place] [address] [place] Basophils/100 WBC (Bld) 0.6 % Normal [facility] Comment on above: Order Comment: Speci men Type: BLOOD SPECIMENOrdering Facility: [facility] Address: [address] [place] [address] Performed By: #### 5 7021-8 ####[facility] [id number] [place] [address] [place] Differential cell count method Nom (Bld) Auto Normal [facility] Comment on above: Order Comment: Speci men Type: BLOOD SPECIMENOrdering Facility: [facility] Address: [address] [place] [address] Performed By: #### 5 7021-8 ####[facility] [id number] [address] [place] [address] [place] Eosinophils (Bld) [#/Vol] 0.06 10*3/uL Normal <0.46 [facility] Comment on above: Order Comment: Speci men Type: BLOOD SPECIMENOrdering Facility: [facility] Address: [address] [place] [address] Performed By: #### 5 7021-8 ####[facility] LABCLIA [id number] [address], [place] [address] [place] Eosinophils/100 WBC (Bld) 0.8 % Normal [facility] Comment on above: Order Comment: Speci men Type: BLOOD SPECIMENOrdering Facility: [facility] Address: [address] [place] [address] Performed By: #### 5 7021-8 ####[facility] LABIA [id number] [address], [place] [address] [place] Erythrocyte distribution width (RBC) [Ratio] 12.4 % Normal 11.5-15.0 [facility] Comment on above: Order Comment: Speci men Type: BLOOD SPECIMENOrdering Facility: [facility] Address: [address] [place] [address] Performed By: #### 5 7021-8 ####[facility] LABCLIA [id number] [address], [place] [address] [place] Hematocrit (Bld) [Volume fraction] 41.2 % Normal 36.0-46.0 [facility] Comment on above: Order Comment: Speci men Type: BLOOD SPECIMENOrdering Facility: [facility] Address: [address] [place] [address] Performed By: #### 5 7021-8 ####[facility] LABCLIA [id number] [address] [place] [address] [place] Hemoglobin (Bld) [Mass/Vol] 13.9 g/dL Normal 11.5-15.5 [facility] Comment on above: Order Comment: Speci men Type: BLOOD SPECIMENOrdering Facility: [facility] Address: [address] [place] [address] Performed By: #### 5 7021-8 ####[facility] LABCLIA [id number] [place] [id number] [place] Immature granulocytes (Bld) [#/Vol] 10*3/uL Normal <0.10 [facility] Comment on above: Order Comment: Speci men Type: BLOOD SPECIMENOrdering Facility: [facility] Address: [address] [place] [address] Performed By: #### 5 7021-8 ####[facility] LABCLIA [id number] [place] [address] [place] Immature granulocytes/100 WBC (Bld) 0.1 % Normal [facility] Comment on above: Order Comment: Speci men Type: BLOOD SPECIMENOrdering Facility: [facility] Address: [address] [place] [address] Performed By: #### 5 7021-8 ####[facility] LABCLIA [id number] [place] [address] [place] Lymphocytes (Bld) [#/Vol] 2.09 10*3/uL Normal 1.00-4.00 [facility] Comment on above: Order Comment: Speci men Type: BLOOD SPECIMENOrdering Facility: [facility] Address: [address] [place] [address] Performed By: #### 5 7021-8 ####[facility] LABCLIA [id number] [place] [address] [place] Lymphocytes/100 WBC (Bld) 26.5 % Normal [facility] Comment on above: Order Comment: Speci men Type: BLOOD SPECIMENOrdering Facility: [facility] Address: [address] [place] [address] Performed By: #### 5 7021-8 ####[facility] LABIA [id number] [place] [address] [place] MCH (RBC) [Entitic mass] 32.8 pg Normal 26.0-34.0 [facility] Comment on above: Order Comment: Speci men Type: BLOOD SPECIMENOrdering Facility: [facility] Address: [address] [place] [address] Performed By: #### 5 7021-8 ####[facility] LABIA [id number] [place] [address] [place] MCHC (RBC) [Mass/Vol] 33.7 g/dL Normal 30.5-36.0 [facility] Comment on above: Order Comment: Speci men Type: BLOOD SPECIMENOrdering Facility: [facility] Address: [address] [place] [address] Performed By: #### 5 7021-8 ####[facility] [id number] [place] [address] [place] MCV (RBC) [Entitic vol] 97.2 fL Normal 80.0-100.0 [facility] Comment on above: Order Comment: Speci men Type: BLOOD SPECIMENOrdering Facility: [facility] Address: [address] [place] [address] Performed By: #### 5 7021-8 ####[facility] LAB[facility] [id number] [place] [address] [place] Monocytes (Bld) [#/Vol] 0.55 10*3/uL Normal <0.87 [facility] Comment on above: Order Comment: Speci men Type: BLOOD SPECIMENOrdering Facility: [facility] Address: [address] [place] [address] Performed By: #### 5 7021-8 ####[facility] LABIA [id number] [address] [place] Monocytes/100 WBC (Bld) 7.0 % Normal [facility] Comment on above: Order Comment: Speci men Type: BLOOD SPECIMENOrdering Facility: [facility] Address: [address] [place] [address] Performed By: #### 5 7021-8 ####[facility] LABCLIA [id number] [address] [address] [place] Neutrophils (Bld) [#/Vol] 5.12 10*3/uL Normal 1.45-7.50 [facility] Comment on above: Order Comment: Speci men Type: BLOOD SPECIMENOrdering Facility: [facility] Address: [address] [place] [address] Performed By: #### 5 7021-8 ####[facility] LABCLIA [id number] [place] [address] [place] Neutrophils/100 WBC (Bld) 65.0 % Normal [facility] Comment on above: Order Comment: Speci men Type: BLOOD SPECIMENOrdering Facility: [facility] Address: [address] [place] [address] Performed By: #### 5 7021-8 ####[facility] LABCLIA [id number] [place] [address] [place] Nucleated RBC (Bld) [#/Vol] 10*3/uL Normal <0.01 [facility] Comment on above: Order Comment: Speci men Type: BLOOD SPECIMENOrdering Facility: [facility] Address: [address] [place] [address] Performed By: #### 5 7021-8 ####[facility] LABCLIA [id number] [place] [address] [place] Nucleated RBC/100 WBC (Bld) [Ratio] 0.0 /100 WBC Normal [facility] Comment on above: Order Comment: Speci men Type: BLOOD SPECIMENOrdering Facility: [facility] Address: [address] [place] [address] Performed By: #### 5 7021-8 ####[facility] LABCLIA [id number] [facility] [address] [place] [address] [place] Platelet mean volume (Bld) [Entitic vol] 10.2 fL Normal 9.0-12.7 [facility] Comment on above: Order Comment: Speci men Type: BLOOD SPECIMENOrdering Facility: [facility] Address: [address] [place] [address] Performed By: #### 5 7021-8 ####[facility] LABCLIA [id number] [facility] [address] [place] [address] [place] Platelets (Bld) [#/Vol] 221 10*3/uL Normal 150-400 [facility] Comment on above: Order Comment: Speci men Type: BLOOD SPECIMENOrdering Facility: [facility] Address: [address] [place] [address] Performed By: #### 5 7021-8 ####[facility] LABIA [id number] [facility] [address] [place] [address] [place] RBC (Bld) [#/Vol] 4.24 10*6/uL Normal 3.90-5.20 [facility] Comment on above: Order Comment: Speci men Type: BLOOD SPECIMENOrdering Facility: [facility] Address: [address] [place] [address] Performed By: #### 5 7021-8 ####[facility] LABCLIA [id number] [facility] [address] [place] [address] [place] WBC (Bld) [#/Vol] 7.88 10*3/uL Normal 3.70-11.00 [facility] Comment on above: Order Comment: Speci men Type: BLOOD SPECIMENOrdering Facility: [facility] Address: [address] [place] [address] Performed By: #### 5 7021-8 ####[facility] LABCLIA [id number] [address] [address] [place] CNOVon 03-07-2025 CNOV Normal [facility] Abdomen/Pelvis W IV Cont ONL Yon 03-06-2025 Abdomen/Pelvis W IV Cont ONLY [facility] Imaging Services [address] [place] [address] Abdomen/Pelvis W IV Cont ONLY MR#: [id number] Acct: [id number] Name: DORY ANDREWS Rep #: [id number] : 2000 F 24 From: Juliocesar Sepulveda MD PCP: Dr. Wu Herrera MD Status: REG ER Study: Abdomen/Pelvis W IV Cont ONLY Date of Exam: Exam# [id number] Ordering Dr: Kaylin Patel MD PROCEDURE: ABDOMEN/PELVIS W IV CONT ONLY 03/06/2025 REASON FOR EXAM: RLQ PAIN TECHNIQUE: ABDOMEN/PELVIS W IV CONT ONLY Coronal and Sagittal reconstruction series were provided. CONTRAST: Isovue-300 VOLUME: 97 mL One or more dose reduction techniques were used (e.g., Automated exposure control, adjustment of the mA and/or kV according to patient size, use of iterative reconstruction technique. RADIATION DOSE SUMMARY: CTDlvol: 9 mGy DLP: 446 mGycm COMPARISON: 01/26/2025. FINDINGS: The peripheral soft tissues are unremarkable. No acute osseous abnormalities. No suspicious lymphadenopathy. The liver is unremarkable. The gallbladder is surgically absent. The pancreas, spleen, and adrenals are unremarkable. Symmetric enhancement of bilateral kidneys. No hydroureteronephrosis. The reproductive organs are unremarkable. The urinary bladder is unremarkable. Normal caliber large and small bowel. The appendix is not discretely visualized but there no secondary signs of acute appendicitis. CT/Abdomen/Pelvis W IV Cont ONLY IMPRESSION: No acute abnormality of the abdomen or pelvis. Reading Location: [facility] CC: Dr. Kaylin Patel MD; Dr. Wu Herrera MD Clerk Rating: Signed Normal [facility] CBC W/Diff, Automatedon 02-11 Absolute Neut Normal 2.0-7.7 [facility] Comment on above: Result Comment: PT D ISCHARGED Performed By: #### L 100.0100 ####[facility] [address] [place], [address] HCT Normal 37-47 [facility] Comment on above: Result Comment: PT D ISCHARGED Performed By: #### L 100.0100 ####[facility] [address] [place], [address] HGB Normal 12.0-15.0 [facility] Comment on above: Result Comment: PT D ISCHARGED Performed By: #### L 100.0100 ####[facility] [address] [place], [address] MCH Normal 27.0-32.0 [facility] Comment on above: Result Comment: PT D ISCHARGED Performed By: #### L 100.0100 ####[facility] [address] [place], [address] MCHC Normal 32-36 [facility] Comment on above: Result Comment: PT D ISCHARGED Performed By: #### L 100.0100 ####[facility] [address] [place], [address] MCV Normal 81-99 [facility] Comment on above: Result Comment: PT D ISCHARGED Performed By: #### L 100.0100 ####[facility] [address] [place], [address] NEUT% Normal 47-70 [facility] Comment on above: Result Comment: PT D ISCHARGED Performed By: #### L 100.0100 ####[facility] [address] [place], [address] PLT Normal 150-450 [facility] Comment on above: Result Comment: PT D ISCHARGED Performed By: #### L 100.0100 ####[facility] [address] [place], [address] RBC Normal 4.2-5.4 [facility] Comment on above: Result Comment: PT D ISCHARGED Performed By: #### L 100.0100 ####[facility] [address] [place], [address] RDW CV Normal 11.6-14.6 [facility] Comment on above: Result Comment: PT D ISCHARGED Performed By: #### L 100.0100 ####[facility] [address] [place], [address] RDW SD Normal 35.1-43.9 [facility] Comment on above: Result Comment: PT D ISCHARGED Performed By: #### L 100.0100 ####[facility] [address] [place], [address] WBC Normal 4.4-11.0 [facility] Comment on above: Result Comment: PT D ISCHARGED Performed By: #### L 100.0100 ####[facility] [address] [place], [address] Absolute Lymph 2.38 X10 3/uL Normal 0.83-4.51 [facility] Comment on above: Performed By: #### L 100.0100, L500.4050, L700.6800, L501.2450 ####[facility] [address] [place], [address] Absolute Neut 4.8 X10 3/uL Normal 2.0-7.7 [facility] Comment on above: Performed By: #### L 100.0100, L500.4050, L700.6800, L501.2450 ####[facility] [address] [place], [address] Basophils/100 WBC (Bld) 0.4 % Normal 0-1 [facility] Comment on above: Performed By: #### L 100.0100, L500.4050, L700.6800, L501.2450 ####[facility] [address] [place], [address] Eosinophils/100 WBC (Bld) 1.1 % Normal 0-5 [facility] Comment on above: Performed By: #### L 100.0100, L500.4050, L700.6800, L501.2450 ####[facility] [address] [place], [address] Erythrocyte distribution width (RBC) [Ratio] 12.2 % Normal 11.6-14.6 [facility] Comment on above: Performed By: #### L 100.0100, L500.4050, L700.6800, L501.2450 ####[facility] [address] [place], [address] Hematocrit (Bld) [Volume fraction] 41.2 % Normal 37-47 [facility] Comment on above: Performed By: #### L 100.0100, L500.4050, L700.6800, L501.2450 ####[facility] [address] [place], [address] Hemoglobin (Bld) [Mass/Vol] 14.1 g/dL Normal 12.0-15.0 [facility] Comment on above: Performed By: #### L 100.0100, L500.4050, L700.6800, L501.2450 ####[facility] [address] [place], [address] IG% 0.300 Normal 0.0-0.9 [facility] Comment on above: Result Comment: IG% - Immature Granulocytes (promyelocytes, myelocytes and metamyelocytes) > 1% indicates that a LEFT SHIFT is Present. Performed By: #### L 100.0100, L500.4050, L700.6800, L501.2450 ####[facility] [address] [place], [address] Lymphocytes/100 WBC (Bld) 30.3 % Normal 19-41 [facility] Comment on above: Performed By: #### L 100.0100, L500.4050, L700.6800, L501.2450 ####[facility] [address] [place], [address] MCH (RBC) [Entitic mass] 32.6 pg High 27.0-32.0 [facility] Comment on above: Performed By: #### L 100.0100, L500.4050, L700.6800, L501.2450 ####[facility] [address] [place], [address] MCHC (RBC) [Mass/Vol] 34.2 g/dL Normal 32-36 [facility] Comment on above: Performed By: #### L 100.0100, L500.4050, L700.6800, L501.2450 ####[facility] [address] [place], [address] MCV (RBC) [Entitic vol] 95.2 fL Normal 81-99 [facility] Comment on above: Performed By: #### L 100.0100, L500.4050, L700.6800, L501.2450 ####[facility] [address] [place], [address] Monocytes/100 WBC (Bld) 6.6 % Normal 0-10 [facility] Comment on above: Performed By: #### L 100.0100, L500.4050, L700.6800, L501.2450 ####[facility] [address] [place], [address] Neutrophils/100 WBC (Bld) 61.3 % Normal 47-70 [facility] Comment on above: Performed By: #### L 100.0100, L500.4050, L700.6800, L501.2450 ####[facility] [address] [place], [address] Nucleated RBC (Bld) [#/Vol] 0 10*3/uL Normal 0-5 [facility] Comment on above: Performed By: #### L 100.0100, L500.4050, L700.6800, L501.2450 ####[facility] [address] [place], [address] Platelet mean volume (Bld) [Entitic vol] 9.7 fL Normal 6.2-12.0 [facility] Comment on above: Performed By: #### L 100.0100, L500.4050, L700.6800, L501.2450 ####[facility] [address] [place], [address] Platelets (Bld) [#/Vol] 235 10*3/uL Normal 150-450 [facility] Comment on above: Performed By: #### L 100.0100, L500.4050, L700.6800, L501.2450 ####[facility] [address] [place], [address] RBC (Bld) [#/Vol] 4.33 10*6/uL Normal 4.2-5.4 [facility] Comment on above: Performed By: #### L 100.0100, L500.4050, L700.6800, L501.2450 ####[facility] [address] [place], [address] RDW SD 43.1 fl Normal 35.1-43.9 [facility] Comment on above: Performed By: #### L 100.0100, L500.4050, L700.6800, L501.2450 ####[facility] [address] [place], [address] WBC (Bld) [#/Vol] 7.9 10*3/uL Normal 4.4-11.0 [facility] Comment on above: Performed By: #### L 100.0100, L500.4050, L700.6800, L501.2450 ####[facility] [address] [place], [address] CNOVon 03-06-2025 CNOV Normal [facility] ilon 03-06-2025 Albumin [Mass/Vol] 4.6 g/dL Normal 3.5-5.0 [facility] Comment on above: Performed By: #### L 100.0100, L500.4050, L700.6800, L501.2450 ####[facility] [address] [place], [address] Albumin/Globulin [Mass ratio] 1.8 {ratio} Normal 0.9-2.4 [facility] Comment on above: Performed By: #### L 100.0100, L500.4050, L700.6800, L501.2450 ####[facility] [address] [place], [address] ALK PHOS 70 U/L Normal 35-104 [facility] Comment on above: Performed By: #### L 100.0100, L500.4050, L700.6800, L501.2450 ####[facility] [address] [place], [address] ALT [Catalytic activity/Vol] 10 U/L Normal <=34 [facility] Comment on above: Performed By: #### L 100.0100, L500.4050, L700.6800, L501.2450 ####[facility] [address] [place], [address] AST [Catalytic activity/Vol] 15 U/L Normal <=31 [facility] Comment on above: Performed By: #### L 100.0100, L500.4050, L700.6800, L501.2450 ####[facility] [address] [place], [address] Bilirubin [Mass/Vol] 0.34 mg/dL Normal 0.00-1.[address] [facility] Comment on above: Performed By: #### L 100.0100, L500.4050, L700.6800, L501.2450 ####[facility] [address] [place], [address] BUN/CRE 18.7 RATIO Normal 10-20 [facility] Comment on above: Performed By: #### L 100.0100, L500.4050, L700.6800, L501.2450 ####[facility] [address] [place], [address] Calcium [Mass/Vol] 9.4 mg/dL Normal 7.6-11.0 [facility] Comment on above: Performed By: #### L 100.0100, L500.4050, L700.6800, L501.2450 ####[facility] [address] [place], [address] Chloride [Moles/Vol] 106 mmol/L Normal 98-[address] [facility] Comment on above: Performed By: #### L 100.0100, L500.4050, L700.6800, L501.2450 ####[facility] [address] [place], [address] CO2 [Moles/Vol] 22.1 mmol/L Normal 21.0-32.0 [facility] Comment on above: Performed By: #### L 100.0100, L500.4050, L700.6800, L501.2450 ####[facility] [address] [place], [address] Creatinine [Mass/Vol] 0.58 mg/dL Low 0.70-1.20 [facility] Comment on above: Performed By: #### L 100.0100, L500.4050, L700.6800, L501.2450 ####[facility] [address] [place], [address] ECRCL 119.31 ml/min Normal 50-250 [facility] Comment on above: Performed By: #### L 100.0100, L500.4050, L700.6800, L501.2450 ####[facility] [address] [place], [address] GAP 13 Normal 5-15 [facility] Comment on above: Performed By: #### L 100.0100, L500.4050, L700.6800, L501.2450 ####[facility] [address] [place], [address] GFR/1.73 sq M.predicted among non-blacks MDRD (S/P/Bld) [Vol rate/Area] 130 mL/min/{1.73_m2} Normal >60 [facility] Comment on above: Result Comment: mL/m in/1.73m2 CKD-EPI Creatinine Equation (2020) Performed By: #### L 100.0100, L500.4050, L700.6800, L501.2450 ####[facility] [address] [place], [address] Globulin (S) [Mass/Vol] 2.6 g/dL Normal 2.2-4.2 [facility] Comment on above: Performed By: #### L 100.0100, L500.4050, L700.6800, L501.2450 ####[facility] [address] [place], [address] Glucose [Mass/Vol] 96 mg/dL Normal 70-99 [facility] Comment on above: Performed By: #### L 100.0100, L500.4050, L700.6800, L501.2450 ####[facility] [address] [place], [address] Potassium [Moles/Vol] 3.9 mmol/L Normal 3.3-5.1 [facility] Comment on above: Performed By: #### L 100.0100, L500.4050, L700.6800, L501.2450 ####[facility] [address] [place], [address] Sodium [Moles/Vol] 141 mmol/L Normal 133-145 [facility] Comment on above: Performed By: #### L 100.0100, L500.4050, L700.6800, L501.2450 ####[facility] [address] [place], [address] T PROT 7.2 g/dL Normal 5.9-8.4 [facility] Comment on above: Performed By: #### L 100.0100, L500.4050, L700.6800, L501.2450 ####[facility] [address] [place], [address] Urea nitrogen [Mass/Vol] 11 mg/dL Normal 4-19 [facility] Comment on above: Performed By: #### L 100.0100, L500.4050, L700.6800, L501.2450 ####[facility] [address] [place], [address] Emergency Department Summary on 03-06-2025 Emergency Department Summary [facility] Medical Records Department [address] [place] [address] Emergency Department Summary 03/06/25 MR#: [id number] Acct: [id number] Name: DORY ANDREWS GREG Rep #: [id number] : 2000 24 From: Kaylin Patel MD PCP: Dr. Wu Herrera MD Status:DEP ER Location: ED HPI HPI - GI History of Present Illness Chief Complaint: Abd Pain Narrative Narrative: Patient is a 24-year-old female presenting to the emergency department for 2 weeks of right lower quadrant pain. Patient has a past medical history as below. She states that about 5 weeks ago she had her gallbladder removed. Developed an ileus after. States that she feels like it is a muscle strain. Reports that it is a pulling sensation. States she did lift a vacuum that was heavy when it started. Denies any fever, chills, vomiting. Reports that she was treated with Macrobid for UTI and is finished his antibiotic. Reports that she was having dysuria but this is cleared up. Denies any vaginal bleeding, discharge, pain. Denies concern for any STDs. Reports that the pain is constant and does not come and go. PFSH [facility] Medical History Insomnia Chronic gastritis Former smoker depression History of anorexia nervosa Vitamin B12 deficiency Abdominal bloating Constipation History of marijuana use Generalized anxiety disorder Bipolar 1 disorder, depressed, moderate PTSD (post-traumatic stress disorder) Tobacco abuse Osteopenia GERD (gastroesophageal reflux disease) Asthma Migraines ( 12/08/23) Alcohol withdrawal Desire for detoxification History of cocaine use Alcohol use disorder Home Medications ???Medication ???Instructions ???Recorded ???Last Taken ???Type Compression Stockings Knee High #1 ea 09/06/24 Unknown Rx valacyclovir 500 mg tablet 500 mg PO QDAY 11/21/24 Unknown Hi story oxycodone-acetaminophen 5 mg-325 1 tab PO Q6H PRN pain 3 days #12 0 12/31/24 Unknown Rx mg tablet (Percocet) tabs hydroxyzine HCl 50 mg tablet 50 mg PO BID PRN anxiety #60 tabs 02/07/25 Unknown Rx gabapentin 300 mg capsule 300 mg PO QHS #30 caps 02/17/25 Un known Rx cyclobenzaprine 5 mg tablet 5 mg PO TID PRN muscle spasm #10 0 03/06/25 Unknown Rx tabs Allergy/AdvReac Type Severity Reaction Status Date / Time Quinolones Allergy PT UNSURE Verified 03/06/25 16:59 OF REACTION Family History Other Alcoholism Anxiety Arthritis Asthma COPD (chronic obstructive pulmonary disease) Depression High cholesterol Schizophrenia Surgical History S/P cholecystectomy History of surgery Social History housing: apartment Smoking Status: Current every day smoker tobacco type: e-cigarettes alcohol intake: current alcohol intake frequency: a few times a week Previous attempts at quittin details: 3 drinks per week substance use type: does not use ROS ROS ED ROS Narrative see HPI EXAM Physical Exam Narrative Exam Narrative: Vital signs: Reviewed General: Alert and oriented. No acute distress HEENT: Head is normocephalic and atraumatic, sinuses nontender, pupils equal round and reactive. Nares are patent. Oropharynx and throat exams normal. Neck: Supple without lymphadenopathy nontender Cardiovascular: Regular rate and rhythm, no murmurs. No rubs or gallops. Normal S1 and S2 Respiratory: Clear to auscultation bilaterally. No wheezes, rales, rhonchi Abdominal: Soft and mildly tender in the right lower quadrant. There is no tenderness to palpation of the suprapubic region. No erythema or warmth over the right lower quadrant or the hip/thigh. Patient able to flex and extend her hip actively. Normal bowel sounds. No guarding or rebound. Nonsurgical abdomen Extremities: No tenderness. No bruising. Normal range of motion. Normal sensation. Skin: No rash or redness. Neurological: Cranial nerves II through XII are grossly intact. Normal strength and sensation. Normal cerebellar function The rest of the physical exam is unremarkable Const Vital Signs: 03/06/25 16:59 03/06/25 17:15 03/06/25 18:02 Temperature 97.1 F L 98.4 F 98.3 F Temperature Source Temporal Oral Oral Pulse Rate 72 71 59 L Respiratory Rate 15 18 14 Blood Pressure 120/87 H 118/81 H 98/58 L Blood Pressure Mean 98 93 71 Pulse Ox 96 100 98 Oxygen Delivery Method Room Air Room Air Room Air 03/06/25 19:37 03/06/25 20:06 Temperature 98.3 F Temperature Source Pulse Rate 59 L Respiratory Rate 14 Blood Pressure 98/58 L Blood Pressure Mean 71 Pulse Ox 100 100 Oxygen Delivery Method MDM MDM MDM Narrativ (more content not included)... Normal [facility] Lipaseon 03-06-2025 Lipase [Catalytic activity/Vol] 55 U/L Normal 13-75 [facility] Comment on above: Result Comment: Marj langford note: LIPASE revised reference range effective 22. New Lipase methodology. Expected to produce lower values than the previous assay method. NEW Reference Range: 13 - 75 U/L Performed By: #### L 100.0100, L500.4050, L700.6800, L501.2450 ####[facility] [address] [place], [address] ,Serum,hCG Quali.on 03-06-2025 HCG, SERUM QUAL Negative Normal [facility] Comment on above: Performed By: #### L 100.0100, L500.4050, L700.6800, L501.2450 ####[facility] [address] [place], [address] Urinalysis, Completeon 03-06 EPI,SQUAMOUS 0-5 SEEN Normal 5-10 [facility] Comment on above: Order Comment: CLEAN CATCH Performed By: #### L 400.0001 ####[facility] [address] [place], [address] RBC 0-5 SEEN Normal 0-5 [facility] Comment on above: Order Comment: CLEAN CATCH Performed By: #### L 400.0001 ####[facility] [address] [place], [address] WBC 0-5 SEEN Normal 0-5 [facility] Comment on above: Order Comment: CLEAN CATCH Performed By: #### L 400.0001 ####[facility] [address] [place], [address] BACTERIA 0 SEEN Normal None Seen [facility] Comment on above: Order Comment: CLEAN CATCH Performed By: #### L 400.0001 ####[facility] [address] [place], [address] Mucus Ql (Urine sed) 0 SEEN Normal [facility] Comment on above: Order Comment: CLEAN CATCH Performed By: #### L 400.0001 ####[facility] [address] [place], [address] CNOVon 02-10-2025 CNOV Normal [facility] MR/BMS.BPon 02-07-2025 MR/BMS.BP [address], [address] [place] [address] OFFICE VISIT Date of Service: 02/07/25 MR#: [id number] Acct: [id number] Name: DORY ANDREWS GREG Rep #: [id number] : 2000 Provider: Dr. Hakeem Izaguirre se, DO Age/Sex: 24/F Location: [facility].BP Status: Signed Intake Vital Signs 12/27/24 08:59 01/26/25 15:25 02/07/25 09:05 Height 5 ft 2 in 5 ft 2 in 5 ft 2 in Weight: 121 lb BMI 22.1 BP 101/65 Blood Pressure Location Lt brachial Position Sitting Respiration 16 Pulse 74 Pulse Source Monitor BP Intake Visit Reasons: 6 wk FU Accompanied by: Self Allergies Quinolones Allergy (Verified 02/07/25 09:06) PT UNSURE OF REACTION Medications ???Medication ???Instructions ???Recorded ???Confirmed ???Type Compression Stockings Knee High #1 ea 09/06/24 02/07/25 Rx valacyclovir 500 mg tablet 500 mg PO QDAY 11/21/24 02/07/25 H istory oxycodone-acetaminophen 5 mg-325 1 tab PO Q6H PRN pain 3 days #12 0 12/31/24 02/07/25 Rx mg tablet (Percocet) tabs hydroxyzine HCl 50 mg tablet 50 mg PO BID PRN anxiety #60 tabs 02/07/25 02/07/25 Rx PFSH Medical History (Updated 02/04/25 @ 00:00 by Background Daemon) Insomnia Chronic gastritis Former smoker depression History of anorexia nervosa Vitamin B12 deficiency Abdominal bloating Constipation History of marijuana use Generalized anxiety disorder Bipolar 1 disorder, depressed, moderate PTSD (post-traumatic stress disorder) Tobacco abuse Osteopenia GERD (gastroesophageal reflux disease) Asthma Migraines ( 12/08/23) Alcohol withdrawal Desire for detoxification History of cocaine use Alcohol use disorder Surgical History (Updated 02/04/25 @ 00:00 by Sandra Franco) S/P cholecystectomy History of surgery Family History Other Alcoholism Anxiety Arthritis Asthma COPD (chronic obstructive pulmonary disease) Depression High cholesterol Schizophrenia Social History (Updated 01/26/25 @ 15:33 by Lesli Horn) housing: apartment Smoking Status: Current every day smoker tobacco type: e-cigarettes alcohol intake: current alcohol intake frequency: a few times a week Previous attempts at quittin details: 3 drinks per week substance use type: does not use HPI History of Present Illness History provided by: patient HPI: Dory Andrews is a 24 year old female who presents today for follow up evaluation. Patient admits to having cholecystectomy about 2 weeks ago. Has had some discomfort after surgery but otherwise is doing better. In regards to mood, she has been doing "fine." Routine has been off as she has a lifting restriction for the next month. Follows up with surgeon on Thursday. Appetite has been good, has lost a few lbs but attributes this to surgery. Sleep has been doing fairly well but does have some nighttime awakenings. Occasionally taking naps. Tension has been high between her and her grandmother. 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 Sister was supposed to be going to [employer] for college however this is unclear now. Continues to follow through [facility] for therapy. Anxiety has been high in recent past. Attributes this to life stress. Review of Systems Constitutional Reports: fatigue; Denies: fever(s), chills or change in weight Eyes Denies: change in vision or blurry vision Ears, Nose, Mouth, Throat Denies: throat pain, neck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 fascia at the umbilical port with a [id number] stitch of 0 Vicryl. Skin incisions were closed with subcuticular stitches of 4-0 Monocryl. Steri-Strips were applied sterile dressings were applied and the patient tolerated the procedure well. Kacy Bullard PA-C was my bookkeeper assistant. She assisted with retraction, visualization and performed skin closure. No additional surgeons or qualified residents were available. PRE-OP/PRE-PROCEDURE DIAGNOSIS: Biliary dyskinesia (hyperkinesia) POST-OP/POST-PROCEDURE DIAGNOSIS: Same as Preop ESTIMATED BLOOD LOSS: < 20 mls SPECIMENS: Gallbladder IMPLANTABLE DEVICES: NONE DRAINS: None COMPLICATIONS: None CLOSURE TECHNIQUE: Primary PARTICIPATION IN SURGERY/PROCEDURE: I/primary surgeon/proceduralist performed the procedure with assistance. SIGNATURE: Wu Hogan III, MD PATIENT NAME: Dory Andrews DATE: January 25, 2025 TIME: 9:18 AM [facility] Pathology biopsy report Magen (Tiss)on 01-25-2025 AP DISCLAIMER [facility] Comment on above: Order Comment: Speci men Type: TISSUE SPECIMEN Ordering Facility: [facility] Address: [address] [place] [address] Result Comment: Ludivina espinoza Developed Test (LDT) Disclaimer: Performance characteristics of immunohistochemical, immunofluorescent, and chromogenic in-situ hybridization tests have been determined by the performing laboratory within [facility]'s [facility] Pathology and Laboratory Medicine Department ([facility], [facility], [facility], [facility], [facility], [facility], or [facility]) in a manner consistent with CLIA requirements. One or more of these tests may not have been cleared or approved by the FDA. [facility] is regulated under CLIA as qualified to perform high-complexity testing. These tests are used for clinical purposes. These should not be regarded as investigational or for research. Positive and negative controls stain appropriately. Performed By: #### 6 6121-5 #### [facility] CLIA [id number] [address] [place] [address] [place] CASE REPORT Normal [facility] Comment on above: Order Comment: Speci men Type: TISSUE SPECIMEN Ordering Facility: [facility] Address: [address] [place] [address] Result Comment: Surg ica Pathology Report Case: [id number] Authorizing Provider: Wu Hogan MD Collected: 01/25/2025 09:00 AM Ordering Location: [facility] Surgery Received: 01/25/2025 10:15 AM Pathologist: Wu Dudley MD Specimen: Gallbladder Performed By: #### 6 6121-5 #### [facility] CLIA [id number] [address] [place], [place] [id number] [place] CLINICAL HISTORY Normal [facility] Comment on above: Order Comment: Speci men Type: TISSUE SPECIMEN Ordering Facility: [facility] Address: [address] [place] [address] Result Comment: Pre- op diagnosis: Right upper quadrant pain [R10.11] Biliary dyskinesia [K82.8] Performed By: #### 6 6121-5 #### [facility] CLIA [id number] [address] [place] [address] [place] FINAL DIAGNOSIS Normal [facility] Comment on above: Order Comment: Speci men Type: TISSUE SPECIMEN Ordering Facility: [facility] Address: [address] [place] [address] Result Comment: Gall bladder, cholecystectomy: - No significant pathologic abnormality. at 1017 EDT Performed By: #### 6 6121-5 #### [facility] CLIA [id number] [address] [place] [address] [place] FINAL PERFORMING LAB Normal [facility] Comment on above: Order Comment: Speci men Type: TISSUE SPECIMEN Ordering Facility: [facility] Address: [address] [place] [address] Result Comment: Diag nostic interpretation performed at: [facility], [address] [place] [address] CLIA# [id number] Wall Man: Jag Moreau MD Performed By: #### 6 6121-5 #### [facility] CLIA [id number] [address] [place] [address] [place] GROSS DESCRIPTION A. Gallbladder Normal [facility] Comment on above: Order Comment: Speci men Type: TISSUE SPECIMEN Ordering Facility: [facility] Address: [address] [place] [address] Result Comment: Rece ived in formalin labeled, ???gallbladder??? is a gallbladder measuring 7.1 x 2.5 x 1.8 cm. The serosal aspect is márquez and smooth. Adjacent to the cystic duct is a whitmore lymph node that measures 0.6 cm in greatest dimension. A defect is not present. The lumen contains whitmore viscous bile. The wall of the gallbladder averages 0.1 cm in thickness. Calculi are not present.. The mucosa is green and velvety. Business Analysis Analyst sections are submitted in one cassettes. WE January 25, 2025 3:42 PM Gross examination performed at [facility], [address] [place] [address] Performed By: #### 6 6121-5 #### [facility] CLIA [id number] [address] [place] [address] [place] US Pelvison 01-24-2025 Radiology Study observation (narrative) [facility] BACTERIAL VAGINOSIS NAATon 0 01-23-2025 Lactobacillus crispatus+gasseri+je nsenii + Gardnerella vaginalis + Atopobium vaginae rRNA YAYO+probe Ql (Vag fld) Not detected Normal Not detected [facility] Comment on above: Order Comment: Speci men Type: SWABOrdering Facility: [facility] Address: [address] [place] [address] Performed By: #### B VAMP, CVTV ####[facility] [id number] [address] [place] LUANA/TRICHOMONAS NAATon 0 01-23-2025 C. glabrata RNA YAYO+probe Ql (Vag fld) Not detected Normal Not detected [facility] Comment on above: Order Comment: Speci men Type: SWABOrdering Facility: [facility] Address: [address] [place] [address] Performed By: #### B VAMP, CVTV ####[facility] [id number] [address] [place] Luana sp DNA YAYO+probe Ql (Vag fld) Detected Abnormal Not detected [facility] Comment on above: Order Comment: Speci men Type: SWABOrdering Facility: [facility] Address: [address] [place] [address] Result Comment: The Luana species group target includes C. albicans, C. tropicalis, C. parapsilosis, and C. dubliniensis. Performed By: #### B VAMP, CVTV ####[facility] [id number] [place] [address] [place] T. vaginalis DNA YAYO+probe Ql (Unsp spec) Not detected Normal Not detected [facility] Comment on above: Order Comment: Speci men Type: SWABOrdering Facility: [facility] Address: [address] [place] [address] Performed By: #### B VAMP, CVTV ####[facility] [id number] [place] [address] [place] CNOVon 01-23-2025 CNOV Normal [facility] UA DIP,URINE HCG (POC)on Beta HCG ( test) Ql (U) Negative Negative [facility] Comment on above: Location:[facility], [address] [facility], [place], [address] Barrel Polisher (POCT) Internal QC [facility] Location:[facility], [address] [place], [address] [facility] CNPNon 01-20-2025 CNPN Normal [facility] HLA-B27 PCRon 01-16-2025 HLA-B27 DNA RESULT Negative Normal [facility] Comment on above: Order Comment: Speci men Type: BLOOD SPECIMENOrdering Facility: [facility] Address: [address] [place] [address] Result Comment: HLA- B27 is strongly associated with ankylosing spondylitis (). HLA-B27 is also associated with other seronegative arthropathies such as Dmitry syndrome and psoriatic arthritis as well as extra-articular diseases such as anterior uveitis and inflammatory bowel disease. Greater than 90% of patients with are HLA-B27 positive.The frequency of HLA-B27 varies by ethnic group but generally <10 % in most [place] populations. HLA-B27 associated susceptibility to varies by population and HLA-B27 alleles detected. Some alleles such as B27:05 are associated with high susceptibility while others such B27:06 and B27:09 are associated with low susceptibility. HLA-B27 allele typing is recommended in HLA-B27 positive cases.HLA typing performed by PCR-RSSOP and/or NGS.This test was developed and its performance characteristics determined by Contraqer. The test has not been cleared or approved by the [place] FDA. However, FDA approval was not necessary since this lab is certified under CLIA for high complexity testing.Test performed by: [facility], [address], [place] [address], CLIA [id number] Performed By: #### B 27PCR ####[facility])CLIA [id number] [address] [address] [place] HISTORY PHYSICALon HISTORY PHYSICAL Normal [facility] CNOVon 01-09-2025 CNOV Normal [facility] CNPNon 01-03-2025 CNPN Normal [facility] CNOVon 01-02-2025 CNOV Normal [facility] Basic Metabolic Profile (BMP )on 12-31-2024 BUN/CRE 14.9 RATIO Normal 10-20 [facility] Comment on above: Performed By: #### L 100.0100, L300.4310, L300.3900, L700.6800 #### [facility] [address] [place], [address] Calcium [Mass/Vol] 9.2 mg/dL Normal 7.6-11.0 [facility] Comment on above: Performed By: #### L 100.0100, L300.4310, L300.3900, L700.6800 #### [facility] [address] [place], [address] Chloride [Moles/Vol] 107 mmol/L Normal 98-[address] [facility] Comment on above: Performed By: #### L 100.0100, L300.4310, L300.3900, L700.6800 #### [facility] [address] [place], [address] CO2 [Moles/Vol] 23.0 mmol/L Normal 21.0-32.0 [facility] Comment on above: Performed By: #### L 100.0100, L300.4310, L300.3900, L700.6800 #### [facility] [address] [place], [address] Creatinine [Mass/Vol] 0.63 mg/dL Low 0.70-1.20 [facility] Comment on above: Performed By: #### L 100.0100, L300.4310, L300.3900, L700.6800 #### [facility] [address] [place], [address] ECRCL 109.84 ml/min Normal 50-250 [facility] Comment on above: Performed By: #### L 100.0100, L300.4310, L300.3900, L700.6800 #### [facility] [address] [place], [address] GAP 11 Normal 5-15 [facility] Comment on above: Performed By: #### L 100.0100, L300.4310, L300.3900, L700.6800 #### [facility] [address] [place], [address] GFR/1.73 sq M.predicted among non-blacks MDRD (S/P/Bld) [Vol rate/Area] 128 mL/min/{1.73_m2} Normal >60 [facility] Comment on above: Result Comment: mL/m in/1.73m2 CKD-EPI Creatinine Equation (2020) Performed By: #### L 100.0100, L300.4310, L300.3900, L700.6800 #### [facility] [address] [place], [address] Glucose [Mass/Vol] 98 mg/dL Normal 70-99 [facility] Comment on above: Performed By: #### L 100.0100, L300.4310, L300.3900, L700.6800 #### [facility] [address] [place], [address] Potassium [Moles/Vol] 3.6 mmol/L Normal 3.3-5.1 [facility] Comment on above: Performed By: #### L 100.0100, L300.4310, L300.3900, L700.6800 #### [facility] [address] [place], [address] Sodium [Moles/Vol] 141 mmol/L Normal 133-145 [facility] Comment on above: Performed By: #### L 100.0100, L300.4310, L300.3900, L700.6800 #### [facility] [address] [place], [address] Urea nitrogen [Mass/Vol] 9 mg/dL Normal 4-19 [facility] Comment on above: Performed By: #### L 100.0100, L300.4310, L300.3900, L700.6800 #### [facility] [address] [place], [address] CBC W/Diff, Automatedon 06-2 -2024 Absolute Lymph 2.53 X10 3/uL Normal 0.83-4.51 [facility] Comment on above: Performed By: #### L 100.0100, L300.4310, L300.3900, L700.6800 #### [facility] [address] [place], [address] Absolute Neut 3.9 X10 3/uL Normal 2.0-7.7 [facility] Comment on above: Performed By: #### L 100.0100, L300.4310, L300.3900, L700.6800 #### [facility] [address] [place], [address] Basophils/100 WBC (Bld) 0.6 % Normal 0-1 [facility] Comment on above: Performed By: #### L 100.0100, L300.4310, L300.3900, L700.6800 #### [facility] [address] [place], [address] Eosinophils/100 WBC (Bld) 1.9 % Normal 0-5 [facility] Comment on above: Performed By: #### L 100.0100, L300.4310, L300.3900, L700.6800 #### [facility] [address] [place], [address] Erythrocyte distribution width (RBC) [Ratio] 12.4 % Normal 11.6-14.6 [facility] Comment on above: Performed By: #### L 100.0100, L300.4310, L300.3900, L700.6800 #### [facility] [address] [place], [address] Hematocrit (Bld) [Volume fraction] 41.9 % Normal 37-47 [facility] Comment on above: Performed By: #### L 100.0100, L300.4310, L300.3900, L700.6800 #### [facility] [address] [place], [address] Hemoglobin (Bld) [Mass/Vol] 14.1 g/dL Normal 12.0-15.0 [facility] Comment on above: Performed By: #### L 100.0100, L300.4310, L300.3900, L700.6800 #### [facility] [address] [place], [address] IG% 0.100 Normal 0.0-0.9 [facility] Comment on above: Result Comment: IG% - Immature Granulocytes (promyelocytes, myelocytes and metamyelocytes) > 1% indicates that a LEFT SHIFT is Present. Performed By: #### L 100.0100, L300.4310, L300.3900, L700.6800 #### [facility] [address] [place], [address] Lymphocytes/100 WBC (Bld) 35.0 % Normal 19-41 [facility] Comment on above: Performed By: #### L 100.0100, L300.4310, L300.3900, L700.6800 #### [facility] [address] [place], [address] MCH (RBC) [Entitic mass] 32.6 pg High 27.0-32.0 [facility] Comment on above: Performed By: #### L 100.0100, L300.4310, L300.3900, L700.6800 #### [facility] [address] [place], [address] MCHC (RBC) [Mass/Vol] 33.7 g/dL Normal 32-36 [facility] Comment on above: Performed By: #### L 100.0100, L300.4310, L300.3900, L700.6800 #### [facility] [address] [place], [address] MCV (RBC) [Entitic vol] 97.0 fL Normal 81-99 [facility] Comment on above: Performed By: #### L 100.0100, L300.4310, L300.3900, L700.6800 #### [facility] [address] [place], [address] Monocytes/100 WBC (Bld) 7.8 % Normal 0-10 [facility] Comment on above: Performed By: #### L 100.0100, L300.4310, L300.3900, L700.6800 #### [facility] [address] [place], [address] Neutrophils/100 WBC (Bld) 54.6 % Normal 47-70 [facility] Comment on above: Performed By: #### L 100.0100, L300.4310, L300.3900, L700.6800 #### [facility] [address] [place], [address] Nucleated RBC (Bld) [#/Vol] 0 10*3/uL Normal 0-5 [facility] Comment on above: Performed By: #### L 100.0100, L300.4310, L300.3900, L700.6800 #### [facility] [address] [place], [address] Platelet mean volume (Bld) [Entitic vol] 10.5 fL Normal 6.2-12.0 [facility] Comment on above: Performed By: #### L 100.0100, L300.4310, L300.3900, L700.6800 #### [facility] [address] [place], [address] Platelets (Bld) [#/Vol] 233 10*3/uL Normal 150-450 [facility] Comment on above: Performed By: #### L 100.0100, L300.4310, L300.3900, L700.6800 #### [facility] [address] [place], [address] RBC (Bld) [#/Vol] 4.32 10*6/uL Normal 4.2-5.4 [facility] Comment on above: Performed By: #### L 100.0100, L300.4310, L300.3900, L700.6800 #### [facility] [address] [place], [address] RDW SD 44.1 fl High 35.1-43.9 [facility] Comment on above: Performed By: #### L 100.0100, L300.4310, L300.3900, L700.6800 #### [facility] [address] [place], [address] WBC (Bld) [#/Vol] 7.2 10*3/uL Normal 4.4-11.0 [facility] Comment on above: Performed By: #### L 100.0100, L300.4310, L300.3900, L700.6800 #### [facility] [address] [place], [address] Emergency Department Summary on 12-31-2024 Emergency Department Summary [facility] Medical Records Department [address] [place] [address] Emergency Department Summary 12/31/24 MR#: [id number] Acct: [id number] Name: DORY ANDREWS GREG Rep #: [id number] : 2000 24 From: Gustavo Rosado DO PCP: Dr. Wu Herrera MD Status:DEP ER Location: ED HPI History of Present Illness Chief Complaint: Abd Pain Informant: patient Narrative Narrative: Patient is a 24-year-old female with past medical history of anxiety and bipolar disorder. She states she has had problems with her stomach for over 1 year. She states that she had a HIDA scan done as an outpatient and reportedly failed this. She states she is scheduled to follow-up with general surgery in approximately 1 week to discuss need for potential cholecystectomy. She states that last night she had a taco with ground beef and sour cream. Following ingestion of this she developed pain in the right upper quadrant. She states that the pain has been constant since its onset. She states is not responding to pvpr-giu-qzxljdf medication. She reports she has been unable to sleep secondary to the constant pain and therefore comes in for evaluation. [facility] Medical History (Updated 12/31/24 @ 02:[address] Gustavo Rosado DO) Insomnia Chronic gastritis Former smoker depression [...] Medications ???Medication ???Instructions ???Recorded ???Last Taken ???Type Compression Stockings Knee High #1 ea 09/06/24 Unknown Rx valacyclovir 500 mg tablet 500 mg PO QDAY 11/21/24 Unknown Hi story doxepin 3 mg tablet (Silenor) 3 mg PO QHS PRN sleep #30 tabs Unknown Rx oxycodone-acetaminophen 5 mg-325 1 tab PO Q6H PRN pain 3 days #12 0 12/31/24 Unknown Rx mg tablet (Percocet) tabs Allergy/AdvReac Type Severity Reaction Status Date / Time Quinolones Allergy PT UNSURE Verified 12/30/24 23:21 OF REACTION Family History Other Alcoholism Anxiety Arthritis Asthma COPD (chronic obstructive pulmonary disease) Depression High cholesterol Schizophrenia Surgical History History of surgery Social History (Updated 09/05/24 @ 15:51 by Wade Wilcox NP, [facility] IN [employer]-C) Smoking Status: Current every day smoker tobacco type: e-cigarettes alcohol intake: current alcohol intake frequency: a few times a week Previous attempts at quittin details: 3 drinks per week substance use type: does not use ROS ROS ED Constitutional Constitutional ED: Denies chills or fever(s) ENT ENT ED: Denies sore throat Cardiovascular Cardiovascular: Denies chest pain Respiratory/Chest Respiratory/Chest: Denies cough or dyspnea Gastrointestinal Gastrointestinal: Reports abdominal pain and nausea; Denies diarrhea or vomiting Genitourinary Genitourinary ED: Denies dysuria or hematuria Musculoskeletal Musculoskeletal: Denies back pain Integumentary Denies rash Neurologic Neurologic: Denies headache(s) Psychiatric Psychiatric: Reports anxiety Hematologic/Lymphatic Hematologic/Lymphatic: Denies easy bleeding or easy bruising EXAM Physical Exam Const Vital Signs: 12/30/24 23:22 12/31/24 01:22 Temperature 97 F L 98.2 F Temperature Source Temporal Pulse Rate 79 58 L Respiratory Rate 18 16 Blood Pressure 110/68 106/55 L Blood Pressure Mean 82 72 Pulse Ox 100 100 Oxygen Delivery Method Room Air Positive well nourished and well developed General Appearance ED: well developed; Negative for pallor HEENT Reports moist mucous membranes HEENT Narrative: No tongue or lip swelling no oral lesions no airway edema or compromise No secondary findings in the posterior pharynx to suggest infection Eyes PERRL and EOMs intact bilaterally General Eye ED: Negative for scleral icterus Neck supple Neck Narrative: No nuchal rigidity or meningeal signs noted Resp normal respiratory effort and clear to auscultation bilaterally Cardio regular rate and regular rhythm Rate: other Other Details: Regular rate and rhythm without murmurs rubs or gallop Radial and carotid pulses are equal and symmetric GI non-distended and no masses GI Narrative: Abdomen is soft and nondistended with normal active bowel sounds. There is mild pain with palpation in the midepigastric and right upper quadrant region. No voluntary guarding or ri (more content not included)... Normal [facility] Lipaseon 12-31-2024 Lipase [Catalytic activity/Vol] 40 U/L Normal 13-75 [facility] Comment on above: Result Comment: Marj langford note: LIPASE revised reference range effective 22. New Lipase methodology. Expected to produce lower values than the previous assay method. NEW Reference Range: 13 - 75 U/L Performed By: #### L 100.0100, L300.4310, L300.3900, L700.6800 #### [facility] [address] [place], [address] Liver Profileon 12-31-2024 Albumin [Mass/Vol] 4.4 g/dL Normal 3.5-5.0 [facility] Comment on above: Performed By: #### L 100.0100, L300.4310, L300.3900, L700.6800 #### [facility] [address] [place], [address] ALK PHOS 67 U/L Normal 35-104 [facility] Comment on above: Performed By: #### L 100.0100, L300.4310, L300.3900, L700.6800 #### [facility] [address] [place], [address] ALT [Catalytic activity/Vol] 6 U/L Normal <=34 [facility] Comment on above: Performed By: #### L 100.0100, L300.4310, L300.3900, L700.6800 #### [facility] [address] [place], [address] AST [Catalytic activity/Vol] 13 U/L Normal <=31 [facility] Comment on above: Performed By: #### L 100.0100, L300.4310, L300.3900, L700.6800 #### [facility] [address] [place], [address] Bilirubin [Mass/Vol] 0.30 mg/dL Normal 0.00-1.[address] [facility] Comment on above: Performed By: #### L 100.0100, L300.4310, L300.3900, L700.6800 #### [facility] [address] [place], [address] Bilirubin.direct [Mass/Vol] 0.13 mg/dL Normal 0.00-0.30 [facility] Comment on above: Performed By: #### L 100.0100, L300.4310, L300.3900, L700.6800 #### [facility] [address] [place], [address] Globulin (S) [Mass/Vol] 2.3 g/dL Normal 2.2-4.2 [facility] Comment on above: Performed By: #### L 100.0100, L300.4310, L300.3900, L700.6800 #### [facility] [address] [place], [address] T PROT 6.7 g/dL Normal 5.9-8.4 [facility] Comment on above: Performed By: #### L 100.0100, L300.4310, L300.3900, L700.6800 #### [facility] [address] [place], [address] ,Serum,hCG Quali.on 12-31-2024 HCG, SERUM QUAL Negative Normal [facility] Comment on above: Performed By: #### L 100.0100, L300.4310, L300.3900, L700.6800 #### [facility] [address] [place], [address] Urinalysis, Completeon 12-31 BACTERIA Normal None Seen [facility] Comment on above: Order Comment: CLEAN CATCH Result Comment: Canc elled via OM: MD Ordered Performed By: #### L 400.0001 ####[facility] [address] [place], [address] BILIRUBIN URINE Normal Negative [facility] Comment on above: Order Comment: CLEAN CATCH Result Comment: Canc elled via OM: MD Ordered Performed By: #### L 400.0001 ####[facility] [address] [place], [address] Clarity (U) Normal Clear [facility] Comment on above: Order Comment: CLEAN CATCH Result Comment: Canc elled via OM: MD Ordered Performed By: #### L 400.0001 ####[facility] [address] [place], [address] Color (U) Normal Yellow [facility] Comment on above: Order Comment: CLEAN CATCH Result Comment: Canc elled via OM: MD Ordered Performed By: #### L 400.0001 ####[facility] [address] [place], [address] EPI,SQUAMOUS Normal 5-10 [facility] Comment on above: Order Comment: CLEAN CATCH Result Comment: Canc elled via OM: MD Ordered Performed By: #### L 400.0001 ####[facility] [address] [place], [address] GLUCOSE, UR Normal Normal [facility] Comment on above: Order Comment: CLEAN CATCH Result Comment: Canc elled via OM: MD Ordered Performed By: #### L 400.0001 ####[facility] [address] [place], [address] KETONE UR Normal Negative [facility] Comment on above: Order Comment: CLEAN CATCH Result Comment: Canc elled via OM: MD Ordered Performed By: #### L 400.0001 ####[facility] [address] [place], [address] LEUK ESTERASE Normal Negative [facility] Comment on above: Order Comment: CLEAN CATCH Result Comment: Canc elled via OM: MD Ordered Performed By: #### L 400.0001 ####[facility] [address] [place], [address] Mucus Ql (Urine sed) Normal [facility] Comment on above: Order Comment: CLEAN CATCH Result Comment: Canc elled via OM: MD Ordered Performed By: #### L 400.0001 ####[facility] [address] [place], [address] Nitrite Ql (U) Normal Negative [facility] Comment on above: Order Comment: CLEAN CATCH Result Comment: Canc elled via OM: MD Ordered Performed By: #### L 400.0001 ####[facility] [address] [place], [address] OCCULT BLOOD-UR Normal Negative [facility] Comment on above: Order Comment: CLEAN CATCH Result Comment: Canc elled via OM: MD Ordered Performed By: #### L 400.0001 ####[facility] [address] [place], [address] pH UR Normal 5.0 - 8.0 [facility] Comment on above: Order Comment: CLEAN CATCH Result Comment: Canc elled via OM: MD Ordered Performed By: #### L 400.0001 ####[facility] [address] [place], [address] PROT DIPSTX Normal Negative [facility] Comment on above: Order Comment: CLEAN CATCH Result Comment: Canc elled via OM: MD Ordered Performed By: #### L 400.0001 ####[facility] [address] [place], [address] RBC Normal 0-5 [facility] Comment on above: Order Comment: CLEAN CATCH Result Comment: Canc elled via OM: MD Ordered Performed By: #### L 400.0001 ####[facility] [address] [place], [address] SP.GR. DIPSTX Normal 1.002-1.030 [facility] Comment on above: Order Comment: CLEAN CATCH Result Comment: Canc elled via OM: MD Ordered Performed By: #### L 400.0001 ####[facility] [address] [place], [address] UR Preservative Normal [facility] Comment on above: Order Comment: CLEAN CATCH Result Comment: Canc elled via OM: MD Ordered Performed By: #### L 400.0001 ####[facility] [address] [place], [address] UROBILI Normal Normal [facility] Comment on above: Order Comment: CLEAN CATCH Result Comment: Canc elled via OM: MD Ordered Performed By: #### L 400.0001 ####[facility] [address] [place], [address] WBC Normal 0-5 [facility] Comment on above: Order Comment: CLEAN CATCH Result Comment: Canc elled via OM: MD Ordered Performed By: #### L 400.0001 ####[facility] [address] [place], [address] CT ABD/PEL W IVCONon 06-17-[address] ABD/PEL W IVCON Normal [facility] CT CHEST WO IVCONon 12-28-[address] CHEST WO IVCON Normal [facility] MR/BMS.BPon 12-27-2024 [facility] [address] [facility], [address] [place] [address] OFFICE VISIT Date of Service: 12/27/24 MR#: [id number] Acct: [id number] Name: DORY ANDREWS Rep #: [id number] : 2000 Provider: Dr. Hakeem Izaguirre se, DO Age/Sex: 24/F Location: [facility].BP Status: Signed Intake Vital Signs 11/21/24 11:34 [...] 500 mg PO Q8H PRN pain (scale 03/1 10/0412/27/24 Rx score 7-10) #20 tabs valacyclovir 500 mg tablet 500 mg PO QDAY 11/21/24 12/27/24 H istory doxepin 3 mg tablet (Silenor) 3 mg PO QHS PRN sleep #30 tabs 12/27/24 Rx PFSH Medical History (Updated 12/27/24 @ 12:[address] Hakeem Pate DO) Insomnia Chronic gastritis Former smoker depression [...] (Updated 09/05/24 @ 15:51 by Wade Wilcox [employer] IN CHARGE, [employer] IN [employer]-C) Smoking Status: Current every day smoker tobacco type: e-cigarettes alcohol intake: current alcohol intake frequency: a few times a week Previous attempts at quittin details: 3 drinks per week substance use type: does not use HPI History of Present Illness History provided by: patient HPI: Dory Anrdews is a 23 year old female who presents today for follow up evaluation. Patient just had her 24rd birthday this past weekend and spent all her money on her son at the [employer] store. Did not have to testify in [...] and th (more content not included)... Normal [facility] CATECHOLAMINES FRACTIONATED, URINE FREEon 12-23-2024 CATECHOLAMINES INTERPRETATION See Note Normal [facility] Comment on above: Order Comment: Speci men Type: URINE SPECIMENOrdering Facility: [facility] Address: [address] [place] [address] Result Comment: TEST INFORMATION: Catecholamines Fractionated, Urine FreeSmaller increases in catecholamine concentrations (less than twotimes the upper limit) usually are the result of physiologicalstimuli, drugs, or improper specimen collection. Significantelevation of one or more catecholamines (three or more times theupper reference limit) is associated with an increased probabilityof a neuroendocrine tumor.Access complete set of age- and/or gender-specific referenceintervals for this test in the [facility] Test Directory(Youboox).This test was developed and its performance characteristicsdetermined by [employer]. It has not been cleared orapproved by the [place] Food and Drug Administration. This test wasperformed in a CLIA certified laboratory and is intended forclinical purposes. Performed By: #### U RCAT2 ####[facility]ORATORIESFREDIA [id number] [place] [address] CREATININE, URINE PER 24H 1140 mg/d Normal 700-1600 [facility] Comment on above: Order Comment: Speci men Type: URINE SPECIMENOrdering Facility: [facility] Address: [address] [id number] Result Comment: Perf ormed By: [facility] [address] [place], [place] [address]Indjkgujrn Director: Darrell Escobar MD, PhDCLIA Number: [id number] Performed By: #### U RCAT2 ####[facility]ORATORIESCLIA [id number] [place] [address] CREATININE, URINE PER VOLUME 60 mg/dL Normal [facility] Comment on above: Order Comment: Speci men Type: URINE SPECIMENOrdering Facility: [facility] Address: [address] [place] [address] Performed By: #### U RCAT2 ####[facility]ORATORIESCLIA [id number] [place] [address] DOPAMINE, UR 24HR 217 ug/d Normal 71-485 [facility] Comment on above: Order Comment: Speci men Type: URINE SPECIMENOrdering Facility: [facility] Address: [address] [place] [address] Result Comment: REFE RENCE INTERVAL: Dopamine, Urine - ug/dAccess complete set of age- and/or gender-specific referenceintervals for this test in the [facility] Test Directory(Youboox). Performed By: #### U RCAT2 ####[facility]ORATORIESCLIA [id number] [place] [address] DOPAMINE, UR PER VOL 114 ug/L Normal [facility] Comment on above: Order Comment: Speci men Type: URINE SPECIMENOrdering Facility: [facility] Address: [address] [place] [address] Performed By: #### U RCAT2 ####[facility] LABORATORIESCLIA [id number] [place] [address] DOPAMINE, UR RATIO TO EXPEDITER 190 ug/g EXPEDITER Normal 0-250 [facility] Comment on above: Order Comment: Speci men Type: URINE SPECIMENOrdering Facility: [facility] Address: [address] [place] [address] Performed By: #### U RCAT2 ####[facility] LABORATORIESCLIA [id number] [place] [address] EPINEPHRINE, UR 24HR 6 ug/d Normal 1-14 [facility] Comment on above: Order Comment: Speci men Type: URINE SPECIMENOrdering Facility: [facility] Address: [address] [place] [address] Result Comment: REFE RENCE INTERVAL: Epinephrine, Urine - ug/dAccess complete set of age- and/or gender-specific referenceintervals for this test in the [facility] Test Directory(Youboox). Performed By: #### U RCAT2 ####[facility]ORATORIESCLIA [id number] [place] [address] EPINEPHRINE, UR PER VOL 3 ug/L Normal [facility] Comment on above: Order Comment: Speci men Type: URINE SPECIMENOrdering Facility: [facility] Address: [address] [place] [address] Performed By: #### U RCAT2 ####[facility]ORATORIESCLIA [id number] [place] [address] EPINEPHRINE, UR RATIO TO EXPEDITER 5 ug/g EXPEDITER Normal 0-20 [facility] Comment on above: Order Comment: Speci men Type: URINE SPECIMENOrdering Facility: [facility] Address: [address] [place] [address] Performed By: #### U RCAT2 ####[facility] LABORATORIESCLIA [id number] [place] [address] HOURS COLLECTED 24 hr Normal [facility] Comment on above: Order Comment: Speci men Type: URINE SPECIMENOrdering Facility: [facility] Address: [address] [place] [address] Result Comment: Per 24h calculations are provided to aid interpretation forcollections with a duration of 24 hours and an average daily urinevolume. For specimens with notable deviations in collection timeor volume, ratios of analytes to a corresponding urine creatinineconcentration may assist in result interpretation. Performed By: #### U RCAT2 ####[facility] LABORATORIESCLIA [id number] [place] [address] NOREPINEPHRINE, UR 24HR 21 ug/d Normal 14-120 [facility] Comment on above: Order Comment: Speci men Type: URINE SPECIMENOrdering Facility: [facility] Address: [address] [place] [address] Result Comment: REFE RENCE INTERVAL: Norepinephrine, Urine - ug/dAccess complete set of age- and/or gender-specific referenceintervals for this test in the [facility] Test Directory(Youboox). Performed By: #### U RCAT2 ####[facility] LABORATORIESCLIA [id number] [place] [address] NOREPINEPHRINE, UR PER VOL 11 ug/L Normal [facility] Comment on above: Order Comment: Speci men Type: URINE SPECIMENOrdering Facility: [facility] Address: [address] [place] [address] Performed By: #### U RCAT2 ####[facility]ORATORIESCLIA [id number] [place] [address] NOREPINEPHRINE, UR RATIO TO EXPEDITER 18 ug/g EXPEDITER Normal 0-45 [facility] Comment on above: Order Comment: Speci men Type: URINE SPECIMENOrdering Facility: [facility] Address: [address] [place] [address] Performed By: #### U RCAT2 ####[facility]ORATORIESCLIA [id number] [place] [address] TOTAL VOLUME 1900 mL Normal [facility] Comment on above: Order Comment: Speci men Type: URINE SPECIMENOrdering Facility: [facility] Address: [address] [place] [address] Performed By: #### U RCAT2 ####[facility] LABORATORIESCLIA [id number] [place] [id number] CNPNon 12-21-2024 CNPN Normal [facility] Amylase SerPl-cCncon 025 Amylase [Catalytic activity/Vol] 47 U/L Normal 30-104 [facility] Comment on above: Order Comment: Speci men Type: BLOOD SPECIMENOrdering Facility: [facility] Address: [address] [place] [address] Performed By: #### 3 040-3, 1798-8 ####[facility] LABCLIA [id number] [address] [place] CNOVon 12-16-2024 CNOV Normal [facility] Lipase SerPl-cCncon 12-17-19 25 Lipase [Catalytic activity/Vol] 28 U/L Normal 16-61 [facility] Comment on above: Order Comment: Speci men Type: BLOOD SPECIMENOrdering Facility: [facility] Address: [address] [place] [address] Performed By: #### 3 040-3, 1798-8 ####[facility] LABCLIA [id number] [address] No Panel Informationon 12-09 IMPRESSION: Unremarkable sonographic exam of the upper abdomen. Clerk Rating: JOSE Transcribe Date/Time: Dec 09 2024 2:43P Dictated by : KEITH CABALLERO MD This examination was interpreted and the report reviewed and electronically signed by: KEITH CABALLERO MD on Dec 09 2024 2:46PM [facility] DIVISION OF RADIOLOGY Radiology Study observation (narrative) [facility] No Panel InformationOrdered By: Ccf Provider on 12-09-2024 [facility] US ABD RIGHT UPPER QUADRANTo n 12-09-2024 US ABD RIGHT UPPER QUADRANT Normal [facility] US ABD SPLEEN - NBon 025 [...] measures 10 cm. DIVISION OF RADIOLOGY Provider, [facility] - 12/09/2024 * * *Final Report* * [...] Unremarkable sonographic exam of the upper abdomen. Clerk Rating: JOSE Transcribe Date/Time: Dec 09 2024 2:43P Dictated by : KEITH CABALLERO MD This examination was interpreted and the report reviewed and electronically signed by: KEITH CABALLERO MD on Dec 09 2024 2:46PM [facility] US ABD SPLEEN -NBon 12-10-19 US ABD SPLEEN -NB Normal [facility] US Abdomen RUQon 12-09-2024 * * *Final Report* * * DATE OF EXAM: Dec 09 2024 10:35AM [facility] 1032 - US ABD RIGHT UPPER QUADRANT [...] measures 10 cm. DIVISION OF RADIOLOGY Provider, [facility] - 12/09/2024 * * *Final Report* * * DATE OF EXAM: Dec 09 2024 10:35AM [facility] 1032 - US ABD RIGHT UPPER QUADRANT [...] Unremarkable sonographic exam of the upper abdomen. Clerk Rating: PSCMinal Transcribe Date/Time: Dec 09 2024 2:43P Dictated by : KEITH CABALLERO MD This examination was interpreted and the report reviewed and electronically signed by: KEITH CABALLERO MD on Dec 09 2024 2:46PM [facility] B-HCG SerPl-aCncon 5 HCG.beta subunit Qn m[IU]/mL Normal <5.0 [facility] Comment on above: Order Comment: Speci men Type: BLOOD SPECIMENOrdering Facility: [facility] Address: [address] [place] [address] Result Comment: Leo donis Performed By: #### 2 1198-7 ####[facility] LABCLIA [id number] [address] [place] [address] [place] Bacteria Ur Culton Bacteria identified Cx Nom (U) CULTURE, URINE: No growth (<1,000 CFU/ml) Normal [facility] Comment on above: Performed By: #### 6 30-4 ####[facility] LABCLIA [id number] [address], [place] [address] [place] CBC W Auto Differential pane l (Bld)on 12-01-2024 Basophils (Bld) [#/Vol] 0.04 10*3/uL Normal <0.11 [facility] Comment on above: Order Comment: Speci men Type: BLOOD SPECIMENOrdering Facility: [facility] Address: [address] [place] [address] Performed By: #### 5 7021-8 ####[facility] LABCLIA [id number] [address], [place] [address] [place] Basophils/100 WBC (Bld) 0.6 % Normal [facility] Comment on above: Order Comment: Speci men Type: BLOOD SPECIMENOrdering Facility: [facility] Address: [address] [place] [address] Performed By: #### 5 7021-8 ####[facility] LABCLIA [id number] [address], [facility] [place] Differential cell count method Nom (Bld) Auto Normal [facility] Comment on above: Order Comment: Speci men Type: BLOOD SPECIMENOrdering Facility: [facility] Address: [address] [place] [address] Performed By: #### 5 7021-8 ####[facility] LABCLIA [id number] [place] [address] [place] Eosinophils (Bld) [#/Vol] 0.05 10*3/uL Normal <0.46 [facility] Comment on above: Order Comment: Speci men Type: BLOOD SPECIMENOrdering Facility: [facility] Address: [address] [place] [address] Performed By: #### 5 7021-8 ####[facility] LABCLIA [id number] [place] [address] [place] Eosinophils/100 WBC (Bld) 0.7 % Normal [facility] Comment on above: Order Comment: Speci men Type: BLOOD SPECIMENOrdering Facility: [facility] Address: [address] [place] [address] Performed By: #### 5 7021-8 ####[facility] LABCLIA [id number] [place] [address] [place] Erythrocyte distribution width (RBC) [Ratio] 12.6 % Normal 11.5-15.0 [facility] Comment on above: Order Comment: Speci men Type: BLOOD SPECIMENOrdering Facility: [facility] Address: [address] [place] [address] Performed By: #### 5 7021-8 ####[facility] LABCLIA [id number] [place] [address] [place] Hematocrit (Bld) [Volume fraction] 41.9 % Normal 36.0-46.0 [facility] Comment on above: Order Comment: Speci men Type: BLOOD SPECIMENOrdering Facility: [facility] Address: [address] [place] [address] Performed By: #### 5 7021-8 ####[facility] LABCLIA [id number] [place] [id number] [place] Hemoglobin (Bld) [Mass/Vol] 13.9 g/dL Normal 11.5-15.5 [facility] Comment on above: Order Comment: Speci men Type: BLOOD SPECIMENOrdering Facility: [facility] Address: [address] [place] [address] Performed By: #### 5 7021-8 ####[facility] LABCLIA [id number] [place] [address] [place] Immature granulocytes (Bld) [#/Vol] 10*3/uL Normal <0.10 [facility] Comment on above: Order Comment: Speci men Type: BLOOD SPECIMENOrdering Facility: [facility] Address: [address] [place] [address] Performed By: #### 5 7021-8 ####[facility] LABCLIA [id number] [place] [address] [place] Immature granulocytes/100 WBC (Bld) 0.1 % Normal [facility] Comment on above: Order Comment: Speci men Type: BLOOD SPECIMENOrdering Facility: [facility] Address: [address] [place] [address] Performed By: #### 5 7021-8 ####[facility] LABCLIA [id number] [place] [address] [place] Lymphocytes (Bld) [#/Vol] 1.72 10*3/uL Normal 1.00-4.00 [facility] Comment on above: Order Comment: Speci men Type: BLOOD SPECIMENOrdering Facility: [facility] Address: [address] [place] [address] Performed By: #### 5 7021-8 ####[facility] LABCLIA [id number] [place] [id number] [place] Lymphocytes/100 WBC (Bld) 23.9 % Normal [facility] Comment on above: Order Comment: Speci men Type: BLOOD SPECIMENOrdering Facility: [facility] Address: [address] [place] [address] Performed By: #### 5 7021-8 ####[facility] LABCLIA [id number] [address] [place] MCH (RBC) [Entitic mass] 32.3 pg Normal 26.0-34.0 [facility] Comment on above: Order Comment: Speci men Type: BLOOD SPECIMENOrdering Facility: [facility] Address: [address] [place] [address] Performed By: #### 5 7021-8 ####[facility] LABIA [id number] [place] [address] [place] MCHC (RBC) [Mass/Vol] 33.2 g/dL Normal 30.5-36.0 [facility] Comment on above: Order Comment: Speci men Type: BLOOD SPECIMENOrdering Facility: [facility] Address: [address] [place] [address] Performed By: #### 5 7021-8 ####[facility] LABIA [id number] [place] [address] [place] MCV (RBC) [Entitic vol] 97.2 fL Normal 80.0-100.0 [facility] Comment on above: Order Comment: Speci men Type: BLOOD SPECIMENOrdering Facility: [facility] Address: [address] [place] [address] Performed By: #### 5 7021-8 ####[facility]IA [id number] [place] [address] [place] Monocytes (Bld) [#/Vol] 0.50 10*3/uL Normal <0.87 [facility] Comment on above: Order Comment: Speci men Type: BLOOD SPECIMENOrdering Facility: [facility] Address: [address] [place] [address] Performed By: #### 5 7021-8 ####[facility] LABCLIA [id number] [place] [address] [place] Monocytes/100 WBC (Bld) 7.0 % Normal [facility] Comment on above: Order Comment: Speci men Type: BLOOD SPECIMENOrdering Facility: [facility] Address: [address] [place] [address] Performed By: #### 5 7021-8 ####[facility] LABCLIA [id number] [place] [id number] [place] Neutrophils (Bld) [#/Vol] 4.87 10*3/uL Normal 1.45-7.50 [facility] Comment on above: Order Comment: Speci men Type: BLOOD SPECIMENOrdering Facility: [facility] Address: [address] [place] [address] Performed By: #### 5 7021-8 ####[facility] LABCLIA [id number] [place] [address] [place] Neutrophils/100 WBC (Bld) 67.7 % Normal [facility] Comment on above: Order Comment: Speci men Type: BLOOD SPECIMENOrdering Facility: [facility] Address: [address] [place] [address] Performed By: #### 5 7021-8 ####[facility] LABCLIA [id number] [place] [address] [place] Nucleated RBC (Bld) [#/Vol] 10*3/uL Normal <0.01 [facility] Comment on above: Order Comment: Speci men Type: BLOOD SPECIMENOrdering Facility: [facility] Address: [address] [place] [address] Performed By: #### 5 7021-8 ####[facility] LABCLIA [id number] [place] [id number] [place] Nucleated RBC/100 WBC (Bld) [Ratio] 0.0 /100 WBC Normal [facility] Comment on above: Order Comment: Speci men Type: BLOOD SPECIMENOrdering Facility: [facility] Address: [address] [place] [address] Performed By: #### 5 7021-8 ####[facility] LABCLIA [id number] [place] [address] [place] Platelet mean volume (Bld) [Entitic vol] 11.0 fL Normal 9.0-12.7 [facility] Comment on above: Order Comment: Speci men Type: BLOOD SPECIMENOrdering Facility: [facility] Address: [address] [place] [address] Performed By: #### 5 7021-8 ####[facility] LABIA [id number] [place] [address] [place] Platelets (Bld) [#/Vol] 215 10*3/uL Normal 150-400 [facility] Comment on above: Order Comment: Speci men Type: BLOOD SPECIMENOrdering Facility: [facility] Address: [address] [place] [address] Performed By: #### 5 7021-8 ####[facility] LABIA [id number] [place] [address] [place] RBC (Bld) [#/Vol] 4.31 10*6/uL Normal 3.90-5.20 [facility] Comment on above: Order Comment: Speci men Type: BLOOD SPECIMENOrdering Facility: [facility] Address: [address] [place] [address] Performed By: #### 5 7021-8 ####[facility] LABIA [id number] [place] [address] [place] WBC (Bld) [#/Vol] 7.19 10*3/uL Normal 3.70-11.00 [facility] Comment on above: Order Comment: Speci men Type: BLOOD SPECIMENOrdering Facility: [facility] Address: [address] [place] [address] Performed By: #### 5 7021-8 ####[facility] LABIA [id number] [place] [id number] [place] CNOVon 12-01-2024 CNOV Normal [facility] Hepatic function 2000 panelo n 12-01-2024 Albumin [Mass/Vol] 4.6 g/dL Normal 3.9-4.9 [facility] Comment on above: Order Comment: Speci men Type: BLOOD SPECIMENOrdering Facility: [facility] Address: [address] [place] [address] Performed By: #### 2 4325-3 ####[facility] LABCLIA [id number] [place] [address] [place] ALP [Catalytic activity/Vol] 60 U/L Normal 34-123 [facility] Comment on above: Order Comment: Speci men Type: BLOOD SPECIMENOrdering Facility: [facility] Address: [address] [place] [address] Performed By: #### 2 4325-3 ####[facility] LABCLIA [id number] [place] [address] [place] ALT [Catalytic activity/Vol] 9 U/L Normal 7-38 [facility] Comment on above: Order Comment: Speci men Type: BLOOD SPECIMENOrdering Facility: [facility] Address: [address] [place] [address] Performed By: #### 2 4325-3 ####[facility] LABCLIA [id number] [place] [address] [place] AST [Catalytic activity/Vol] 17 U/L Normal 13-35 [facility] Comment on above: Order Comment: Speci men Type: BLOOD SPECIMENOrdering Facility: [facility] Address: [address] [place] [address] Performed By: #### 2 4325-3 ####[facility] LABCLIA [id number] [place] [id number] [place] Bilirubin [Mass/Vol] 0.6 mg/dL Normal 0.2-1.3 [facility] Comment on above: Order Comment: Speci men Type: BLOOD SPECIMENOrdering Facility: [facility] Address: [address] [place] [address] Performed By: #### 2 4325-3 ####[facility]IA [id number] [place] [address] [place] Bilirubin.conjugated [Mass/Vol] 0.1 mg/dL Normal <0.3 [facility] Comment on above: Order Comment: Speci men Type: BLOOD SPECIMENOrdering Facility: [facility] Address: [address] [place] [address] Performed By: #### 2 4325-3 ####[facility] LABIA [id number] [place] [address] [place] Protein [Mass/Vol] 7.0 g/dL Normal 6.3-8.0 [facility] Comment on above: Order Comment: Speci men Type: BLOOD SPECIMENOrdering Facility: [facility] Address: [address] [place] [address] Performed By: #### 2 4325-3 ####[facility] LABIA [id number] [place] [address] [place] Heteroph Ab Ser Ql LAon 11-11 Heterophile Ab LA Ql (S) Negative Normal Negative [facility] Comment on above: Order Comment: Speci men Type: BLOOD SPECIMENOrdering Facility: [facility] Address: [address] [place] [address] Result Comment: Infe ctious Mononucleosis rapid test [...] is required. Performed By: #### 5 213-4 ####[facility] LABIA [id number] [address] [place] Urinalysis complete panel (U )on 12-01-2024 Bacteria LM.HPF (Urine sed) [#/Area] Negative Normal Negative [facility] Comment on above: Order Comment: Speci men Type: URINE SPECIMENOrdering Facility: [facility] Address: [address] [place] [address] Performed By: #### 2 4356-8 ####[facility] LABCLIA [id number] [address], [place] [address] [place] Bilirubin Ql (U) Negative Normal Negative [facility] Comment on above: Order Comment: Speci men Type: URINE SPECIMENOrdering Facility: [facility] Address: [address] [place] [address] Performed By: #### 2 4356-8 ####[facility] LABCLIA [id number] [place] [address] [place] Clarity (Unsp spec) Clear Normal Clear [facility] Comment on above: Order Comment: Speci men Type: URINE SPECIMENOrdering Facility: [facility] Address: [address] [place] [address] Performed By: #### 2 4356-8 ####[facility] LABCLIA [id number] [address], [address] [place] [facility] Color (U) Yellow Normal Yellow [facility] Comment on above: Order Comment: Speci men Type: URINE SPECIMENOrdering Facility: [facility] Address: [address] [place] [address] Performed By: #### 2 4356-8 ####[facility]CLIA [id number] [address] [place] Epithelial cells LM.HPF (Urine sed) [#/Area] None Seen Normal [facility] Comment on above: Order Comment: Speci men Type: URINE SPECIMENOrdering Facility: [facility] Address: [address] [place] [address] Performed By: #### 2 4356-8 ####[facility] LABCLIA [id number] [facility] [address] [place] [address] [place] Glucose Test strip (U) [Mass/Vol] Negative Normal Negative [facility] Comment on above: Order Comment: Speci men Type: URINE SPECIMENOrdering Facility: [facility] Address: [address] [place] [address] Performed By: #### 2 4356-8 ####[facility]CLIA [id number] [facility] [address] [place] [address] [place] Hemoglobin Ql (U) Negative Normal Negative [facility] Comment on above: Order Comment: Speci men Type: URINE SPECIMENOrdering Facility: [facility] Address: [address] [place] [address] Performed By: #### 2 4356-8 ####[facility] LABCLIA [id number] [address] [address], [place] [address] [place] Hyaline casts (Urine sed) [#/Area] 1-3 /LPF Abnormal 0 /LPF [facility] Comment on above: Order Comment: Speci men Type: URINE SPECIMENOrdering Facility: [facility] Address: [address] [place] [address] Performed By: #### 2 4356-8 ####[facility] LABCLIA [id number] [address], [facility]95 [place] Ketones Ql (U) Negative Normal Negative [facility] Comment on above: Order Comment: Speci men Type: URINE SPECIMENOrdering Facility: [facility] Address: [address] [place] [address] Performed By: #### 2 4356-8 ####[facility]CLIA [id number] [address], [facility]95 [place] Leukocyte esterase Test strip Ql (U) Negative Normal Negative [facility] Comment on above: Order Comment: Speci men Type: URINE SPECIMENOrdering Facility: [facility] Address: [address] [place] [address] Performed By: #### 2 4356-8 ####[facility] LABCLIA [id number] [place] [address] [place] Nitrite Ql (U) Negative Normal Negative [facility] Comment on above: Order Comment: Speci men Type: URINE SPECIMENOrdering Facility: [facility] Address: [address] [place] [address] Performed By: #### 2 4356-8 ####[facility] LABCLIA [id number] [place] [address] [place] pH (U) 6.5 [pH] Normal <8.5 [facility] Comment on above: Order Comment: Speci men Type: URINE SPECIMENOrdering Facility: [facility] Address: [address] [place] [address] Performed By: #### 2 4356-8 ####[facility]CLIA [id number] [place] [address] [place] Protein (U) [Mass/Vol] Negative Normal Negative [facility] Comment on above: Order Comment: Speci men Type: URINE SPECIMENOrdering Facility: [facility] Address: [address] [place] [address] Performed By: #### 2 4356-8 ####[facility]CLIA [id number] [place] [address] [place] RBC LM.HPF (Urine sed) [#/Area] 0-2 /HPF Normal 0-2 /HPF [facility] Comment on above: Order Comment: Speci men Type: URINE SPECIMENOrdering Facility: [facility] Address: [address] [place] [address] Performed By: #### 2 4356-8 ####[facility] LABIA [id number] [place] [id number] [place] Specific gravity (U) [Rel density] 1.007 Normal 1.005-1.030 [facility] Comment on above: Order Comment: Speci men Type: URINE SPECIMENOrdering Facility: [facility] Address: [address] [place] [address] Performed By: #### 2 4356-8 ####[facility]CLIA [id number] [place] [address] [place] Urobilinogen Ql (U) 0.2 EU/dL Normal 0.2-1.0 EU/dL [facility] Comment on above: Order Comment: Speci men Type: URINE SPECIMENOrdering Facility: [facility] Address: [address] [place] [address] Performed By: #### 2 4356-8 ####[facility]CLIA [id number] [place] [address] [place] WBC LM.HPF (Urine sed) [#/Area] 0-5 /HPF Normal 0-5 /HPF [facility] Comment on above: Order Comment: Speci men Type: URINE SPECIMENOrdering Facility: [facility] Address: [address] [place] [address] Performed By: #### 2 4356-8 ####[facility] LABIA [id number] [place] [address] [place] XR CHEST 2V FRONTAL/LATon XR CHEST 2V FRONTAL/LAT Normal [facility] ACTIVATED PARTIAL THROMBOPLA STIN TIMEOrdered By: Dmitrii Kuyyaamin on 11-25-2024 aPTT Coag (PPP) [Time] 28.9 s [facility] Bacteria Ur Culton Bacteria identified Cx Nom (U) CULTURE, URINE: Mixed microbiota, including predominantly: ORGANISM ID: 1 10,000 -<50,000 CFU/ml Streptococcus anginosus No susceptibility testing done. Normal [facility] Comment on above: Performed By: #### 6 30-4 ####[facility]CLIA [id number] [address], [facility]95 [place] CBC W Auto Differential pane l (Bld)on 11-25-2024 Basophils (Bld) [#/Vol] 0.03 10*3/uL Normal <0.11 [facility] Comment on above: Order Comment: Speci men Type: BLOOD SPECIMENOrdering Facility: [facility] Address: [address] [place] [address] Performed By: #### 5 7021-8 ####[facility] LABCLIA [id number] [address], [place] [address] [place] Basophils/100 WBC (Bld) 0.3 % Normal [facility] Comment on above: Order Comment: Speci men Type: BLOOD SPECIMENOrdering Facility: [facility] Address: [address] [place] [address] Performed By: #### 5 7021-8 ####[facility] LABCLIA [id number] [place] [address] [place] Differential cell count method Nom (Bld) Auto Normal [facility] Comment on above: Order Comment: Speci men Type: BLOOD SPECIMENOrdering Facility: [facility] Address: [address] [place] [address] Performed By: #### 5 7021-8 ####[facility] LABCLIA [id number] [place] [address] [place] Eosinophils (Bld) [#/Vol] 0.05 10*3/uL Normal <0.46 [facility] Comment on above: Order Comment: Speci men Type: BLOOD SPECIMENOrdering Facility: [facility] Address: [address] [place] [address] Performed By: #### 5 7021-8 ####[facility] LABCLIA [id number] [place] [id number] [place] Eosinophils/100 WBC (Bld) 0.5 % Normal [facility] Comment on above: Order Comment: Speci men Type: BLOOD SPECIMENOrdering Facility: [facility] Address: [address] [place] [address] Performed By: #### 5 7021-8 ####[facility] LABIA [id number] [place] [address] [place] Erythrocyte distribution width (RBC) [Ratio] 12.8 % Normal 11.5-15.0 [facility] Comment on above: Order Comment: Speci men Type: BLOOD SPECIMENOrdering Facility: [facility] Address: [address] [place] [address] Performed By: #### 5 7021-8 ####[facility] LABIA [id number] [place] [address] [place] Hematocrit (Bld) [Volume fraction] 42.3 % Normal 36.0-46.0 [facility] Comment on above: Order Comment: Speci men Type: BLOOD SPECIMENOrdering Facility: [facility] Address: [address] [place] [address] Performed By: #### 5 7021-8 ####[facility] LABIA [id number] [place] [address] [place] Hemoglobin (Bld) [Mass/Vol] 14.1 g/dL Normal 11.5-15.5 [facility] Comment on above: Order Comment: Speci men Type: BLOOD SPECIMENOrdering Facility: [facility] Address: [address] [place] [address] Performed By: #### 5 7021-8 ####[facility] LABIA [id number] [place] [address] [place] Immature granulocytes (Bld) [#/Vol] 10*3/uL Normal <0.10 [facility] Comment on above: Order Comment: Speci men Type: BLOOD SPECIMENOrdering Facility: [facility] Address: [address] [place] [address] Performed By: #### 5 7021-8 ####[facility] LABCLIA [id number] [address] [address] [place] Immature granulocytes/100 WBC (Bld) 0.2 % Normal [facility] Comment on above: Order Comment: Speci men Type: BLOOD SPECIMENOrdering Facility: [facility] Address: [address] [place] [address] Performed By: #### 5 7021-8 ####[facility] LABCLIA [id number] [place] [address] [place] Lymphocytes (Bld) [#/Vol] 1.92 10*3/uL Normal 1.00-4.00 [facility] Comment on above: Order Comment: Speci men Type: BLOOD SPECIMENOrdering Facility: [facility] Address: [address] [place] [address] Performed By: #### 5 7021-8 ####[facility] LABIA [id number] [place] [address] [place] Lymphocytes/100 WBC (Bld) 19.5 % Normal [facility] Comment on above: Order Comment: Speci men Type: BLOOD SPECIMENOrdering Facility: [facility] Address: [address] [place] [address] Performed By: #### 5 7021-8 ####[facility] LABCLIA [id number] [place] [id number] [place] MCH (RBC) [Entitic mass] 31.8 pg Normal 26.0-34.0 [facility] Comment on above: Order Comment: Speci men Type: BLOOD SPECIMENOrdering Facility: [facility] Address: [address] [place] [address] Performed By: #### 5 7021-8 ####[facility] LABCLIA [id number] [address] [address] [place] MCHC (RBC) [Mass/Vol] 33.3 g/dL Normal 30.5-36.0 [facility] Comment on above: Order Comment: Speci men Type: BLOOD SPECIMENOrdering Facility: [facility] Address: [address] [place] [address] Performed By: #### 5 7021-8 ####[facility] LABIA [id number] [address] [address] [place] MCV (RBC) [Entitic vol] 95.5 fL Normal 80.0-100.0 [facility] Comment on above: Order Comment: Speci men Type: BLOOD SPECIMENOrdering Facility: [facility] Address: [address] [place] [address] Performed By: #### 5 7021-8 ####[facility] LABIA [id number] [place] [address] [place] Monocytes (Bld) [#/Vol] 0.67 10*3/uL Normal <0.87 [facility] Comment on above: Order Comment: Speci men Type: BLOOD SPECIMENOrdering Facility: [facility] Address: [address] [place] [address] Performed By: #### 5 7021-8 ####[facility] LABIA [id number] [place] [address] [place] Monocytes/100 WBC (Bld) 6.8 % Normal [facility] Comment on above: Order Comment: Speci men Type: BLOOD SPECIMENOrdering Facility: [facility] Address: [address] [place] [address] Performed By: #### 5 7021-8 ####[facility] LABIA [id number] [place] [id number] [place] Neutrophils (Bld) [#/Vol] 7.17 10*3/uL Normal 1.45-7.50 [facility] Comment on above: Order Comment: Speci men Type: BLOOD SPECIMENOrdering Facility: [facility] Address: [address] [place] [address] Performed By: #### 5 7021-8 ####[facility] LABCLIA [id number] [address], [place] [address] [place] Neutrophils/100 WBC (Bld) 72.7 % Normal [facility] Comment on above: Order Comment: Speci men Type: BLOOD SPECIMENOrdering Facility: [facility] Address: [address] [place] [address] Performed By: #### 5 7021-8 ####[facility] LABCLIA [id number] [address], [place] [address] [place] Nucleated RBC (Bld) [#/Vol] 10*3/uL Normal <0.01 [facility] Comment on above: Order Comment: Speci men Type: BLOOD SPECIMENOrdering Facility: [facility] Address: [address] [place] [address] Performed By: #### 5 7021-8 ####[facility] LABIA [id number] [place] [address] [place] Nucleated RBC/100 WBC (Bld) [Ratio] 0.0 /100 WBC Normal [facility] Comment on above: Order Comment: Speci men Type: BLOOD SPECIMENOrdering Facility: [facility] Address: [address] [place] [address] Performed By: #### 5 7021-8 ####[facility] LABIA [id number] [place] [address] [place] Platelet mean volume (Bld) [Entitic vol] 11.0 fL Normal 9.0-12.7 [facility] Comment on above: Order Comment: Speci men Type: BLOOD SPECIMENOrdering Facility: [facility] Address: [address] [place] [address] Performed By: #### 5 7021-8 ####[facility] LABCLIA [id number] [place] [address] [place] Platelets (Bld) [#/Vol] 218 10*3/uL Normal 150-400 [facility] Comment on above: Order Comment: Speci men Type: BLOOD SPECIMENOrdering Facility: [facility] Address: [address] [place] [address] Performed By: #### 5 7021-8 ####[facility] LABCLIA [id number] [facility] [address] [address] [place] RBC (Bld) [#/Vol] 4.43 10*6/uL Normal 3.90-5.20 [facility] Comment on above: Order Comment: Speci men Type: BLOOD SPECIMENOrdering Facility: [facility] Address: [address] [place] [address] Performed By: #### 5 7021-8 ####[facility] LABCLIA [id number] [place] [address] [place] WBC (Bld) [#/Vol] 9.86 10*3/uL Normal 3.70-11.00 [facility] Comment on above: Order Comment: Speci men Type: BLOOD SPECIMENOrdering Facility: [facility] Address: [address] [place] [address] Performed By: #### 5 7021-8 ####[facility] LABIA [id number] [place] [id number] [place] CNOVon 11-25-2024 CNOV Normal [facility] Comprehensive metabolic 2000 panelon 11-25-2024 Albumin [Mass/Vol] 4.8 g/dL Normal 3.9-4.9 [facility] Comment on above: Order Comment: Speci men Type: BLOOD SPECIMENOrdering Facility: [facility] Address: [address] [place] [address] Performed By: #### 3 016-3, T4FTI, 58284-3 ####[facility] LABCLIA [id number] [place] [id number] [place] ALP [Catalytic activity/Vol] 64 U/L Normal 34-123 [facility] Comment on above: Order Comment: Speci men Type: BLOOD SPECIMENOrdering Facility: [facility] Address: [address] [place] [address] Performed By: #### 3 016-3, T4FTI, ####[facility]CLIA [id number] [facility] [address] [place] ALT [Catalytic activity/Vol] 10 U/L Normal 7-38 [facility] Comment on above: Order Comment: Speci men Type: BLOOD SPECIMENOrdering Facility: [facility] Address: [address] [place] [address] Performed By: #### 3 016-3, T4FTI, ####[facility] LABCLIA [id number] [place] [address] [place] Anion gap [Moles/Vol] 13 mmol/L Normal 8-15 [facility] Comment on above: Order Comment: Speci men Type: BLOOD SPECIMENOrdering Facility: [facility] Address: [address] [place] [address] Performed By: #### 3 016-3, T4FTI, ####[facility]CLIA [id number] [facility] [place] [address] [place] AST [Catalytic activity/Vol] 14 U/L Normal 13-35 [facility] Comment on above: Order Comment: Speci men Type: BLOOD SPECIMENOrdering Facility: [facility] Address: [address] [place] [address] Performed By: #### 3 016-3, T4FTI, ####[facility] LABCLIA [id number] [place] [id number] [place] Bilirubin [Mass/Vol] 0.4 mg/dL Normal 0.2-1.3 [facility] Comment on above: Order Comment: Speci men Type: BLOOD SPECIMENOrdering Facility: [facility] Address: [address] [place] [address] Performed By: #### 3 016-3, T4FTI, ####[facility] LABCLIA [id number] [place] [address] [place] Calcium [Mass/Vol] 10.0 mg/dL Normal 8.5-10.2 [facility] Comment on above: Order Comment: Speci men Type: BLOOD SPECIMENOrdering Facility: [facility] Address: [address] [place] [address] Performed By: #### 3 016-3, T4FTI, ####[facility] LABCLIA [id number] [place] [address] [place] Chloride [Moles/Vol] 107 mmol/L Normal 98-107 [facility] Comment on above: Order Comment: Speci men Type: BLOOD SPECIMENOrdering Facility: [facility] Address: [address] [place] [address] Performed By: #### 3 016-3, T4FTI, ####[facility] LABCLIA [id number] [place] [address] [place] CO2 [Moles/Vol] 22 mmol/L Normal 22-30 [facility] Comment on above: Order Comment: Speci men Type: BLOOD SPECIMENOrdering Facility: [facility] Address: [address] [place] [address] Performed By: #### 3 016-3, T4FTI, ####[facility] LABCLIA [id number] [place] [id number] [place] Creatinine [Mass/Vol] 0.56 mg/dL Low 0.58-0.96 [facility] Comment on above: Order Comment: Speci men Type: BLOOD SPECIMENOrdering Facility: [facility] Address: [address] [place] [address] Performed By: #### 3 016-3, T4FTI, 79785-0 ####[facility] LABCLIA [id number] [place] [address] [place] Creatinine and Glomerular filtration rate.predicted panel (S/P/Bld) 133 mL/min/1.73m??? Normal >=60 [facility] Comment on above: Order Comment: Nabeel montero Type: BLOOD SPECIMENOrdering Facility: [facility] Address: [address] [place] [address] Result Comment: Dylan mated Glomerular Filtration Rate [...] accurately reflect actual GFR. Performed By: #### 3 016-3, T4FTI, 47095-3 ####[facility] LABCLIA [id number] [place] [address] [place] Glucose [Mass/Vol] 82 mg/dL Normal 74-99 [facility] Comment on above: Order Comment: Nabeel montero Type: BLOOD SPECIMENOrdering Facility: [facility] Address: [address] [place] [address] Result Comment: The [place] [employer] (ADA) provides guidance for cutoff [...] Standards of Medical Care in Diabetes 2016, [place] [employer]. Diabetes Care. 2016.39(Suppl 1). Performed By: #### 3 016-3, T4FTI, 17234-9 ####[facility] LABCLIA [id number] [address] [place] [address] [place] Potassium [Moles/Vol] 4.5 mmol/L Normal 3.7-5.1 [facility] Comment on above: Order Comment: Speci men Type: BLOOD SPECIMENOrdering Facility: [facility] Address: [address] [place] [address] Performed By: #### 3 016-3, T4FTI, ####[facility] LABCLIA [id number] [facility] [address] [place] [address] [place] Protein [Mass/Vol] 7.3 g/dL Normal 6.3-8.0 [facility] Comment on above: Order Comment: Speci men Type: BLOOD SPECIMENOrdering Facility: [facility] Address: [address] [place] [address] Performed By: #### 3 016-3, T4FTI, ####[facility] LABCLIA [id number] [address] [place] [address] [place] Sodium [Moles/Vol] 142 mmol/L Normal 136-144 [facility] Comment on above: Order Comment: Speci men Type: BLOOD SPECIMENOrdering Facility: [facility] Address: [address] [place] [address] Performed By: #### 3 016-3, T4FTI, ####[facility] LABCLIA [id number] [address] [place] [address] [place] Urea nitrogen [Mass/Vol] 8 mg/dL Normal 7-21 [facility] Comment on above: Order Comment: Speci men Type: BLOOD SPECIMENOrdering Facility: [facility] Address: [address] [place] [address] Performed By: #### 3 016-3, T4FTI, ####[facility] LABCLIA [id number] [address] [place] [address] [place] JENNY CHEUNG PANELon 025 EBV NA AB, QUAL Positive Abnormal Negative [facility] Comment on above: Order Comment: Speci men Type: BLOOD SPECIMENOrdering Facility: [facility] Address: [address] [place] [address] Performed By: #### E BVPNL ####[facility] LABCLIA [id number] [place] [address] [place] EBV VCA IGG, QUAL Positive Abnormal Negative [facility] Comment on above: Order Comment: Speci men Type: BLOOD SPECIMENOrdering Facility: [facility] Address: [address] [place] [address] Performed By: #### E BVPNL ####[facility] LABCLIA [id number] [place] [address] [place] EBV VCA IGM, QUAL Negative Normal Negative [facility] Comment on above: Order Comment: Speci men Type: BLOOD SPECIMENOrdering Facility: [facility] Address: [address] [place] [address] Performed By: #### E BVPNL ####[facility] LABCLIA [id number] [place] [address] [place] INTERPRETATION (EBVPNL) Normal [facility] Comment on above: Order Comment: Speci men Type: BLOOD SPECIMENOrdering Facility: [facility] Address: [address] [place] [address] Performed By: #### E BVPNL ####[facility] LABCLIA [id number] [place] [id number] [place] No Panel Informationon 11-25 Interpretation and review of laboratory results Normal [facility] PT panel Coag (PPP)on 2024 INR Coag (PPP) [Relative time] 1.1 {INR} 0.9 - 1.3 [facility] Comment on above: Vitamin K Antagonist (VKA) Therapeutic Range: INR 2 to 3 (Target INR of 2.5) Note: For patients treated with VKA drugs, such as warfarin, the [place] [employer] 2012 Guideline recommends [...] 2.5 to 3.5 (target INR of 3). rudy Prince. Chest 2012, 141:7S-47S Casper MEREDITH et al. [facility] 2017, 70: 252-289 PT Coag (PPP) [Time] 11.4 s [facility] INR Coag (PPP) [Relative time] 1.1 {INR} Normal 0.9-1.3 [facility] Comment on above: Order Comment: Speci men Type: BLOOD SPECIMENOrdering Facility: [facility] Address: [address] [place] [address] Result Comment: Angelica min K Antagonist (VKA) Therapeutic Range: INR 2 to 3 (Target INR of 2.5)Note: For patients treated with VKA drugs, such as warfarin, the [place] [employer] 2012 Guideline recommends [...] of 2.5 to 3.5 (target INR of 3).rudy Prince. Chest 2012, 141:7S-47SCasper MEREDITH et al. [facility] 2017, 70: 252-289 Performed By: #### 3 4528-0, 80563-5 ####[facility] LABCLIA [id number] [address] [address] [place] PT Coag (PPP) [Time] 11.4 s Normal 9.7-13.0 [facility] Comment on above: Order Comment: Speci men Type: BLOOD SPECIMENOrdering Facility: [facility] Address: [address] [place] [address] Performed By: #### 3 4528-0, 54012-7 ####[facility] LABCLIA [id number] [place] [address] [place] T4/FTI/T4Uon 11-25-2024 FTI 6.9 ug/dL Normal 5.3-10.8 [facility] Comment on above: Order Comment: Speci men Type: BLOOD SPECIMENOrdering Facility: [facility] Address: [address] [place] [address] Performed By: #### 3 016-3, T4FTI, ####[facility]CL[facility] [id number] [place] [address] [place] T4 [Mass/Vol] 6.8 ug/dL Normal 5.5-10.2 [facility] Comment on above: Order Comment: Speci men Type: BLOOD SPECIMENOrdering Facility: [facility] Address: [address] [place] [address] Performed By: #### 3 016-3, T4FTI, ####[facility] [id number] [place] [id number] [place] T4 uptake [Mass/Vol] 0.98 Normal 0.91-1.19 [facility] Comment on above: Order Comment: Speci men Type: BLOOD SPECIMENOrdering Facility: [facility] Address: [address] [place] [address] Performed By: #### 3 016-3, T4FTI, ####[facility] [id number] [place] [id number] [place] TSH SerPl-aCncon 11-25-2024 TSH Qn 0.701 m[IU]/L Normal 0.270-4.200 [facility] Comment on above: Order Comment: Speci men Type: BLOOD SPECIMENOrdering Facility: [facility] Address: [address] [place] [address] Result Comment: If t he patient is , TSH reference range varies by gestational period:First Trimester (weeks 9-12): 0.180-2.990 mIU/LSecond Trimester: 0.110-3.980 mIU/LThird Trimester: 0.480-4.710 mIU/LDtony Enrique et al. A Practical Approach for the Verifications and Determination of Site- and Trimester-Specific Reference Intervals for Thyroid Function tests in . Thyroid, 2019:29:3:412-420. Joe E, et al. 2017 Guidelines of the [place] [employer] for the Diagnosis and Management of Thyroid Disease during and the . Thyroid, 2017:27:3:315-389. Performed By: #### 3 016-3, T4FTI, 77881-6 ####[facility] [id number] [place] [address] [place] Urinalysis complete panel (U )on 11-25-2024 Bacteria LM.HPF (Urine sed) [#/Area] Negative Normal Negative [facility] Comment on above: Order Comment: Speci men Type: URINE SPECIMENOrdering Facility: [facility] Address: [address] [place] [address] Performed By: #### 2 4356-8 ####[facility] [id number] [place] [address] [place] Bilirubin Ql (U) Negative Normal Negative [facility] Comment on above: Order Comment: Speci men Type: URINE SPECIMENOrdering Facility: [facility] Address: [address] [place] [address] Performed By: #### 2 4356-8 ####[facility] [id number] [address] [place] [address] [place] Clarity (Unsp spec) Clear Normal [facility] Comment on above: Order Comment: Speci men Type: URINE SPECIMENOrdering Facility: [facility] Address: [address] [place] [address] Performed By: #### 2 4356-8 ####[facility] [id number] [address] [place] [address] [place] Color (U) Yellow Normal Yellow [facility] Comment on above: Order Comment: Speci men Type: URINE SPECIMENOrdering Facility: [facility] Address: [address] [place] [address] Performed By: #### 2 4356-8 ####[facility] [id number] [place] [id number] [place] Epithelial cells LM.HPF (Urine sed) [#/Area] Few Normal [facility] Comment on above: Order Comment: Speci men Type: URINE SPECIMENOrdering Facility: [facility] Address: [address] [place] [address] Performed By: #### 2 4356-8 ####[facility] [id number] [address] [address] [place] Glucose Test strip (U) [Mass/Vol] Negative Normal Negative [facility] Comment on above: Order Comment: Speci men Type: URINE SPECIMENOrdering Facility: [facility] Address: [address] [place], [place] [address] Performed By: #### 2 4356-8 ####[facility] [id number] [place] [id number] [place] Hemoglobin Ql (U) Negative Normal Negative [facility] Comment on above: Order Comment: Speci men Type: URINE SPECIMENOrdering Facility: [facility] Address: [address] [place] [address] Performed By: #### 2 4356-8 ####[facility] [id number] [address], [place] [address] [place] Hyaline casts (Urine sed) [#/Area] 1-3 /LPF Abnormal 0 /LPF [facility] Comment on above: Order Comment: Speci men Type: URINE SPECIMENOrdering Facility: [facility] Address: [address] [place] [address] Performed By: #### 2 4356-8 ####[facility] [id number] [address], [place] [address] [place] Ketones Ql (U) Trace Abnormal Negative [facility] Comment on above: Order Comment: Speci men Type: URINE SPECIMENOrdering Facility: [facility] Address: [address] [place] [address] Performed By: #### 2 4356-8 ####[facility] [id number] [address], [place] [address] [place] Leukocyte esterase Test strip Ql (U) Negative Normal Negative [facility] Comment on above: Order Comment: Speci men Type: URINE SPECIMENOrdering Facility: [facility] Address: [address] [place] [address] Performed By: #### 2 4356-8 ####[facility] [id number] [place] [id number] [place] Nitrite Ql (U) Negative Normal Negative [facility] Comment on above: Order Comment: Speci men Type: URINE SPECIMENOrdering Facility: [facility] Address: [address] [place] [address] Performed By: #### 2 4356-8 ####[facility] [id number] [address], [facility]95 [place] pH (U) 6.0 [pH] Normal <8.5 [facility] Comment on above: Order Comment: Speci men Type: URINE SPECIMENOrdering Facility: [facility] Address: [address] [place] [address] Performed By: #### 2 4356-8 ####[facility] [id number] [place] [address] [place] Protein (U) [Mass/Vol] Negative Normal Negative [facility] Comment on above: Order Comment: Speci men Type: URINE SPECIMENOrdering Facility: [facility] Address: [address] [place] [address] Performed By: #### 2 4356-8 ####[facility] LABIA [id number] [place] [address] [place] RBC LM.HPF (Urine sed) [#/Area] 0-2 /HPF Normal 0-2 /HPF [facility] Comment on above: Order Comment: Speci men Type: URINE SPECIMENOrdering Facility: [facility] Address: [address] [place] [address] Performed By: #### 2 4356-8 ####[facility] LABIA [id number] [place] [address] [place] Specific gravity (U) [Rel density] 1.010 Normal 1.005-1.030 [facility] Comment on above: Order Comment: Speci men Type: URINE SPECIMENOrdering Facility: [facility] Address: [address] [place] [address] Performed By: #### 2 4356-8 ####[facility] LABIA [id number] [place] [id number] [place] Urobilinogen Ql (U) 0.2 EU/dL Normal 0.2-1.0 EU/dL [facility] Comment on above: Order Comment: Speci men Type: URINE SPECIMENOrdering Facility: [facility] Address: [address] [place] [address] Performed By: #### 2 4356-8 ####[facility] [id number] [place] [id number] [place] WBC LM.HPF (Urine sed) [#/Area] 0-5 /HPF Normal 0-5 /HPF [facility] Comment on above: Order Comment: Speci men Type: URINE SPECIMENOrdering Facility: [facility] Address: [address] [place] [address] Performed By: #### 2 4356-8 ####[facility] [id number] [place] [id number] [place] aPTT Coag (PPP) [...] laboratory APTT reagent in use throughout the [facility]. [facility] aPTT PPPon 11-25-2024 aPTT Coag (PPP) [Time] 28.9 s Normal 23.0-32.4 [facility] Comment on above: Order Comment: Speci men Type: BLOOD SPECIMENOrdering Facility: [facility] Address: [address] [place] [address] Performed By: #### 3 4528-0, 49284-2 ####[facility] [id number] [place] [address] [place] MR/BMS.BPparesh 11-21-2024 MR/BMS.BP [place] [address], [address] [place] [address] OFFICE VISIT Date of Service: 11/21/24 MR#: [id number] Acct: [id number] Name: DORY ANDREWS Rep #: [id number] : 2000 Provider: Dr. Hakeem Izaguirre se, DO Age/Sex: 23/F Location: [facility].BP Status: Signed Intake Vital Signs 09/12/24 15:04 [...] (Updated 09/05/24 @ 15:51 by Wade Wilcox BROKER IN CHARGE, BROKER IN CHARGE-C) Smoking Status: Current every day smoker tobacco [...] Some exacerba (more content not included)... Normal [facility] CNOVon 10-18-2024 CNOV Normal [facility] CNOVon 10-17-2024 CNOV Normal [facility] BACTERIAL VAGINOSIS NAATon 0 10-14-2024 Lactobacillus crispatus+gasseri+je nsenii + Gardnerella vaginalis + Atopobium vaginae rRNA YAYO+probe Ql (Vag fld) Not detected Normal Not detected [facility] Comment on above: Order Comment: Speci men Type: SWABOrdering Facility: [facility] Address: [address] [place] [address] Performed By: #### C VTV, BVAMP ####[facility] [id number] [place] [address] [place] LUANA/TRICHOMONAS NAATon 0 10-14-2024 C. glabrata RNA YAYO+probe Ql (Vag fld) Not detected Normal Not detected [facility] Comment on above: Order Comment: Speci men Type: SWABOrdering Facility: [facility] Address: [address] [place] [address] Performed By: #### C VTV, BVAMP ####[facility] [id number] [place] [address] [place] Luana sp DNA YAYO+probe Ql (Vag fld) Detected Abnormal Not detected [facility] Comment on above: Order Comment: Speci men Type: SWABOrdering Facility: [facility] Address: [address] [place] [address] Result Comment: The Luana species group target includes C. albicans, C. tropicalis, C. parapsilosis, and C. dubliniensis. Performed By: #### C VTV, BVAMP ####[facility] [id number] [place] [address] [place] T. vaginalis DNA YAYO+probe Ql (Unsp spec) Not detected Normal Not detected [facility] Comment on above: Order Comment: Speci men Type: SWABOrdering Facility: [facility] Address: [address] [place] [address] Performed By: #### C VTV, BVAMP ####[facility] [id number] [place] [address] [place] CNOVon 10-14-2024 CNOV Normal [facility] HSV+VZV DNA YAYO+probe Ql (Un sp spec)on 10-14-2024 HSV 1 DNA YAYO+probe Ql (Unsp spec) Not detected Normal Not Detected [facility] Comment on above: Order Comment: Speci men Type: SWABOrdering Facility: [facility] Address: [address] [place] [address] Performed By: #### 3 3027-4 ####[facility]CL[facility] [id number] [place] [address] [place] HSV 2 DNA YAYO+probe Ql (Unsp spec) Detected Abnormal Not Detected [facility] Comment on above: Order Comment: Speci men Type: SWABOrdering Facility: [facility] Address: [address] [place] [address] Performed By: #### 3 3027-4 ####[facility]CL[facility] [id number] [place] [address] [place] VZV DNA YAYO+probe Ql (Unsp spec) Not detected Normal Not Detected [facility] Comment on above: Order Comment: Speci men Type: SWABOrdering Facility: [facility] Address: [address] [place] [address] Performed By: #### 3 3027-4 ####[facility]CL[facility] [id number] [place] [address] [place] B-HCG SerPl-aCncon 5 HCG.beta subunit Qn m[IU]/mL Normal <5.0 [facility] Comment on above: Order Comment: Speci men Type: BLOOD SPECIMENOrdering Facility: [facility] Address: [address] [place] [address] Result Comment: Leo leefilipe Performed By: #### 2 1198-7 ####[facility] LABIA [id number] [place] [address] [place] B. burgdorferi IgG and IgM p radha (S)on 10-11-2024 B. burgdorferi IgG+IgM Qn (S) Negative Normal Negative [facility] Comment on above: Order Comment: Speci men Type: BLOOD SPECIMENOrdering Facility: [facility] Address: [address] [place] [address] Result Comment: Rece nt infection with B. burgdorferi sensu lato cannot be excluded if the specimen collected within four weeks after the onset of signs and symptoms or within six weeks after a known tick exposure. Clinical and epidemiological correlation is required. Performed By: #### 3 4942-3 ####[facility] LABIA [id number] [place] [address] [place] CNOVon 10-11-2024 CNOV Normal [facility] CRP SerPl-mCncon 10-11-2024 CRP [Mass/Vol] mg/L Normal <0.9 [facility] Comment on above: Order Comment: Speci men Type: BLOOD SPECIMENOrdering Facility: [facility] Address: [address] [place] [address] Performed By: #### 1 988-5, 76413-0 ####[facility] LABIA [id number] [place] [address] [place] ESR Westergren method (Bld) [Velocity]on 10-11-2024 ESR (Bld) [Velocity] 2 mm/h Normal 0-20 [facility] Comment on above: Order Comment: Speci men Type: BLOOD SPECIMENOrdering Facility: [facility] Address: [address] [place] [address] Performed By: #### 4 537-7 ####[facility] LABIA [id number] [place] [address] [place] Nuclear Ab IA Ql (S)on 10-11 [facility]MA SCR QUAL Negative Normal Negative [facility] Comment on above: Order Comment: Speci men Type: BLOOD SPECIMENOrdering Facility: [facility] Address: [address] [place] [address] Result Comment: The qualitative antinuclear antibody screen test performed using the following antigens: dsDNA, Chromatin, Ribosomal P, SS-A 60, SS-A 52, SS-B, Sm, SmRNP, BEER MAKER A, BEER MAKER 68, Scl-70, Radha-1, and Centromere B. Methodology: Multiplex flow immunoassay. Performed By: #### 4 7383-5 ####[facility]CL[facility] [id number] [place] [address] [place] Rheumatoid fact SerPl-aCncon 10-11-2024 Rheumatoid factor Qn [IU]/mL Normal <16 [facility] Comment on above: Order Comment: Speci men Type: BLOOD SPECIMENOrdering Facility: [facility] Address: [address] [place] [address] Performed By: #### 1 988-5, 50220-0 ####[facility]CL[facility] [id number] [place] [address] [place] CBC W Auto Differential pane l (Bld)on 10-10-2024 Basophils (Bld) [#/Vol] 0.05 10*3/uL [facility] Basophils/100 WBC (Bld) 0.6 % [facility] Differential cell count method Nom (Bld) Auto [facility] Eosinophils (Bld) [#/Vol] 0.08 10*3/uL [facility] Eosinophils/100 WBC (Bld) 1 % [facility] Erythrocyte distribution width (RBC) [Ratio] 12.7 % 11.5 - 15.0 % [facility] Hematocrit (Bld) [Volume fraction] 43.6 % 36.0 - 46.0 % [facility] Hemoglobin (Bld) [Mass/Vol] 14.5 g/dL 11.5 - 15.5 g/dL [facility] Immature granulocytes (Bld) [#/Vol] [facility] Immature granulocytes/100 WBC (Bld) 0.1 % [facility] Lymphocytes (Bld) [#/Vol] 1.93 10*3/uL [facility] Lymphocytes/100 WBC (Bld) 23.6 % [facility] MCH (RBC) [Entitic mass] 31.8 pg 26.0 - 34.0 pg [facility] MCHC (RBC) [Mass/Vol] 33.3 g/dL 30.5 - 36.0 g/dL [facility] MCV (RBC) [Entitic vol] 95.6 fL 80.0 - 100.0 fL [facility] Monocytes (Bld) [#/Vol] 0.72 10*3/uL [facility] Monocytes/100 WBC (Bld) 8.8 % [facility] Neutrophils (Bld) [#/Vol] 5.4 10*3/uL [facility] Neutrophils/100 WBC (Bld) 65.9 % [facility] Nucleated RBC (Bld) [#/Vol] [facility] Nucleated RBC/100 WBC (Bld) [Ratio] 0 % /100 WBC [facility] Platelet mean volume (Bld) [Entitic vol] 10.3 fL 9.0 - 12.7 fL [facility] Platelets (Bld) [#/Vol] 257 10*3/uL [facility] RBC (Bld) [#/Vol] 4.56 10*6/uL 3.90 - 5.2 0 m/uL [facility] WBC (Bld) [#/Vol] 8.19 10*3/uL [facility] Basophils (Bld) [#/Vol] 0.05 10*3/uL Normal <0.11 [facility] Comment on above: Order Comment: Speci men Type: BLOOD SPECIMENOrdering Facility: [facility] Address: [address] [place] [address] Performed By: #### 5 7021-8 ####[facility] LABCLIA [id number] [address] [place] Basophils/100 WBC (Bld) 0.6 % Normal [facility] Comment on above: Order Comment: Speci men Type: BLOOD SPECIMENOrdering Facility: [facility] Address: [address] [place] [address] Performed By: #### 5 7021-8 ####[facility] LABCLIA [id number] [place] [address] [place] Differential cell count method Nom (Bld) Auto Normal [facility] Comment on above: Order Comment: Speci men Type: BLOOD SPECIMENOrdering Facility: [facility] Address: [address] [place] [address] Performed By: #### 5 7021-8 ####[facility]CLIA [id number] [place] [address] [place] Eosinophils (Bld) [#/Vol] 0.08 10*3/uL Normal <0.46 [facility] Comment on above: Order Comment: Speci men Type: BLOOD SPECIMENOrdering Facility: [facility] Address: [address] [place] [address] Performed By: #### 5 7021-8 ####[facility] LABCLIA [id number] [place] [address] [place] Eosinophils/100 WBC (Bld) 1.0 % Normal [facility] Comment on above: Order Comment: Speci men Type: BLOOD SPECIMENOrdering Facility: [facility] Address: [address] [place] [address] Performed By: #### 5 7021-8 ####[facility] LABCLIA [id number] [place] [address] [place] Erythrocyte distribution width (RBC) [Ratio] 12.7 % Normal 11.5-15.0 [facility] Comment on above: Order Comment: Speci men Type: BLOOD SPECIMENOrdering Facility: [facility] Address: [address] [place] [address] Performed By: #### 5 7021-8 ####[facility] LABCLIA [id number] [place] [id number] [place] Hematocrit (Bld) [Volume fraction] 43.6 % Normal 36.0-46.0 [facility] Comment on above: Order Comment: Speci men Type: BLOOD SPECIMENOrdering Facility: [facility] Address: [address] [place] [address] Performed By: #### 5 7021-8 ####[facility] LABCLIA [id number] [place] [address] [place] Hemoglobin (Bld) [Mass/Vol] 14.5 g/dL Normal 11.5-15.5 [facility] Comment on above: Order Comment: Speci men Type: BLOOD SPECIMENOrdering Facility: [facility] Address: [address] [place] [address] Performed By: #### 5 7021-8 ####[facility] LABCLIA [id number] [place] [address] [place] Immature granulocytes (Bld) [#/Vol] 10*3/uL Normal <0.10 [facility] Comment on above: Order Comment: Speci men Type: BLOOD SPECIMENOrdering Facility: [facility] Address: [address] [place] [address] Performed By: #### 5 7021-8 ####[facility] LABCLIA [id number] [place] [address] [place] Immature granulocytes/100 WBC (Bld) 0.1 % Normal [facility] Comment on above: Order Comment: Speci men Type: BLOOD SPECIMENOrdering Facility: [facility] Address: [address] [place] [address] Performed By: #### 5 7021-8 ####[facility] LABCLIA [id number] [place] [id number] [place] Lymphocytes (Bld) [#/Vol] 1.93 10*3/uL Normal 1.00-4.00 [facility] Comment on above: Order Comment: Speci men Type: BLOOD SPECIMENOrdering Facility: [facility] Address: [address] [place] [address] Performed By: #### 5 7021-8 ####[facility] LABCLIA [id number] [place] [address] [place] Lymphocytes/100 WBC (Bld) 23.6 % Normal [facility] Comment on above: Order Comment: Speci men Type: BLOOD SPECIMENOrdering Facility: [facility] Address: [address] [place] [address] Performed By: #### 5 7021-8 ####[facility] LABCLIA [id number] [place] [address] [place] MCH (RBC) [Entitic mass] 31.8 pg Normal 26.0-34.0 [facility] Comment on above: Order Comment: Speci men Type: BLOOD SPECIMENOrdering Facility: [facility] Address: [address] [place] [address] Performed By: #### 5 7021-8 ####[facility] LABCLIA [id number] [place] [address] [place] MCHC (RBC) [Mass/Vol] 33.3 g/dL Normal 30.5-36.0 [facility] Comment on above: Order Comment: Speci men Type: BLOOD SPECIMENOrdering Facility: [facility] Address: [address] [place] [address] Performed By: #### 5 7021-8 ####[facility] LABCLIA [id number] [place] [id number] [place] MCV (RBC) [Entitic vol] 95.6 fL Normal 80.0-100.0 [facility] Comment on above: Order Comment: Speci men Type: BLOOD SPECIMENOrdering Facility: [facility] Address: [address] [place] [address] Performed By: #### 5 7021-8 ####[facility]CLIA [id number] [facility] [address] [place] [address] [place] Monocytes (Bld) [#/Vol] 0.72 10*3/uL Normal <0.87 [facility] Comment on above: Order Comment: Speci men Type: BLOOD SPECIMENOrdering Facility: [facility] Address: [address] [place] [address] Performed By: #### 5 7021-8 ####[facility]CLIA [id number] [facility] [address] [place] [address] [place] Monocytes/100 WBC (Bld) 8.8 % Normal [facility] Comment on above: Order Comment: Speci men Type: BLOOD SPECIMENOrdering Facility: [facility] Address: [address] [place] [address] Performed By: #### 5 7021-8 ####[facility] LABCLIA [id number] [address], [place] [address] [place] Neutrophils (Bld) [#/Vol] 5.40 10*3/uL Normal 1.45-7.50 [facility] Comment on above: Order Comment: Speci men Type: BLOOD SPECIMENOrdering Facility: [facility] Address: [address] [place] [address] Performed By: #### 5 7021-8 ####[facility] LABCLIA [id number] [address], [facility] [place] Neutrophils/100 WBC (Bld) 65.9 % Normal [facility] Comment on above: Order Comment: Speci men Type: BLOOD SPECIMENOrdering Facility: [facility] Address: [address] [place] [address] Performed By: #### 5 7021-8 ####[facility]CLIA [id number] [facility] [address] [place] [address] [place] Nucleated RBC (Bld) [#/Vol] 10*3/uL Normal <0.01 [facility] Comment on above: Order Comment: Speci men Type: BLOOD SPECIMENOrdering Facility: [facility] Address[place] [address] [place] [address] Performed By: #### 5 7021-8 ####[facility] [id number] [place] [address] [place] Nucleated RBC/100 WBC (Bld) [Ratio] 0.0 /100 WBC Normal [facility] Comment on above: Order Comment: Speci men Type: BLOOD SPECIMENOrdering Facility: [facility] Address: [address] [place] [address] Performed By: #### 5 7021-8 ####[facility] LABIA [id number] [place] [address] [place] Platelet mean volume (Bld) [Entitic vol] 10.3 fL Normal 9.0-12.7 [facility] Comment on above: Order Comment: Speci men Type: BLOOD SPECIMENOrdering Facility: [facility] Address: [address] [place] [address] Performed By: #### 5 7021-8 ####[facility] LABIA [id number] [place] [address] [place] Platelets (Bld) [#/Vol] 257 10*3/uL Normal 150-400 [facility] Comment on above: Order Comment: Speci men Type: BLOOD SPECIMENOrdering Facility: [facility] Address: [address] [place] [address] Performed By: #### 5 7021-8 ####[facility] LABIA [id number] [place] [address] [place] RBC (Bld) [#/Vol] 4.56 10*6/uL Normal 3.90-5.20 [facility] Comment on above: Order Comment: Speci men Type: BLOOD SPECIMENOrdering Facility: [facility] Address: [address] [place] [address] Performed By: #### 5 7021-8 ####[facility] [id number] [address] [place] [address] [place] WBC (Bld) [#/Vol] 8.19 10*3/uL Normal 3.70-11.00 [facility] Comment on above: Order Comment: Speci men Type: BLOOD SPECIMENOrdering Facility: [facility] Address: [address] [place] [address] Performed By: #### 5 7021-8 ####[facility] [id number] [address] [place] [address] [place] CNOVon 10-10-2024 CNOV Normal [facility] metabolic 2000 panelon 10-10-2024 Albumin [Mass/Vol] 4.5 g/dL Normal 3.9-4.9 [facility] Comment on above: Order Comment: Speci men Type: BLOOD SPECIMENOrdering Facility: [facility] Address: [address] [place] [address] Performed By: #### 2 4323-8 ####[facility] [id number] [address] [address] [place] ALP [Catalytic activity/Vol] 76 U/L Normal 34-123 [facility] Comment on above: Order Comment: Speci men Type: BLOOD SPECIMENOrdering Facility: [facility] Address: [address] [place] [address] Performed By: #### 2 4323-8 ####[facility] [id number] [address] [address] [place] ALT [Catalytic activity/Vol] 13 U/L Normal 7-38 [facility] Comment on above: Order Comment: Speci men Type: BLOOD SPECIMENOrdering Facility: [facility] Address: [address] [place] [address] Performed By: #### 2 4323-8 ####[facility] [id number] [address] [place] [address] [place] Anion gap [Moles/Vol] 12 mmol/L Normal 8-15 [facility] Comment on above: Order Comment: Speci men Type: BLOOD SPECIMENOrdering Facility: [facility] Address: [address] [place] [address] Performed By: #### 2 4323-8 ####[facility] [id number] [address], [facility]95 [place] AST [Catalytic activity/Vol] 19 U/L Normal 13-35 [facility] Comment on above: Order Comment: Speci men Type: BLOOD SPECIMENOrdering Facility: [facility] Address: [address] [place] [address] Performed By: #### 2 4323-8 ####[facility] [id number] [place] [id number] [place] Bilirubin [Mass/Vol] 0.4 mg/dL Normal 0.2-1.3 [facility] Comment on above: Order Comment: Speci men Type: BLOOD SPECIMENOrdering Facility: [facility] Address: [address] [place] [address] Performed By: #### 2 4323-8 ####[facility] [id number] [place] [id number] [place] Calcium [Mass/Vol] 9.4 mg/dL Normal 8.5-10.2 [facility] Comment on above: Order Comment: Speci men Type: BLOOD SPECIMENOrdering Facility: [facility] Address: [address] [place] [address] Performed By: #### 2 4323-8 ####[facility] [id number] [place] [id number] [place] Chloride [Moles/Vol] 106 mmol/L Normal 98-107 [facility] Comment on above: Order Comment: Speci men Type: BLOOD SPECIMENOrdering Facility: [facility] Address: [address] [place] [address] Performed By: #### 2 4323-8 ####[facility] [id number] [place] [id number] [place] CO2 [Moles/Vol] 23 mmol/L Normal 22-30 [facility] Comment on above: Order Comment: Speci men Type: BLOOD SPECIMENOrdering Facility: [facility] Address: [address] [place] [address] Performed By: #### 2 4323-8 ####[facility] LABIA [id number] [place] [address] [place] Creatinine [Mass/Vol] 0.61 mg/dL Normal 0.58-0.96 [facility] Comment on above: Order Comment: Speci men Type: BLOOD SPECIMENOrdering Facility: [facility] Address: [address] [place] [address] Performed By: #### 2 4323-8 ####[facility] LABIA [id number] [place] [address] [place] Creatinine and Glomerular filtration rate.predicted panel (S/P/Bld) 130 mL/min/1.73m??? Normal >=60 [facility] Comment on above: Order Comment: Speci men Type: BLOOD SPECIMENOrdering Facility: [facility] Address: [address] [place] [address] Result Comment: Dylan mated Glomerular Filtration Rate [...] actual GFR. Performed By: #### 2 4323-8 ####[facility] [id number] [place] [id number] [place] Glucose [Mass/Vol] 99 mg/dL Normal 74-99 [facility] Comment on above: Order Comment: Speci men Type: BLOOD SPECIMENOrdering Facility: [facility] Address: [address] [place] [address] Result Comment: The [place] [employer] (ADA) provides guidance for cutoff [...] Standards of Medical Care in Diabetes 2016, [place] [employer]. Diabetes Care. 2016.39(Suppl 1). Performed By: #### 2 4323-8 ####[facility]CL[facility] [id number] [place] [address] [place] Potassium [Moles/Vol] 3.9 mmol/L Normal 3.7-5.1 [facility] Comment on above: Order Comment: Speci men Type: BLOOD SPECIMENOrdering Facility: [facility] Address: [address] [place] [address] Performed By: #### 2 4323-8 ####[facility]CL[facility] [id number] [place] [id number] [place] Protein [Mass/Vol] 7.2 g/dL Normal 6.3-8.0 [facility] Comment on above: Order Comment: Speci men Type: BLOOD SPECIMENOrdering Facility: [facility] Address: [address] [place], [place] [address] Performed By: #### 2 4323-8 ####[facility] [id number] [facility] [address] [address] [place] Sodium [Moles/Vol] 141 mmol/L Normal 136-144 [facility] Comment on above: Order Comment: Speci men Type: BLOOD SPECIMENOrdering Facility: [facility] Address: [address] [place] [address] Performed By: #### 2 4323-8 ####[facility]CL[facility] [id number] [place] [address] [place] Urea nitrogen [Mass/Vol] 7 mg/dL Normal 7-21 [facility] Comment on above: Order Comment: Speci men Type: BLOOD SPECIMENOrdering Facility: [facility] Address: [address] [place] [address] Performed By: #### 2 4323-8 ####[facility] LABIA [id number] [place] [address] [place] HIV 1+2 Ab IA Qlon 5 HIV 1 and 2 Ab IA.rapid Nom (S/P/Bld) Normal [facility] Comment on above: Order Comment: Speci men Type: BLOOD SPECIMENOrdering Facility: [facility] Address: [address] [place] [address] Result Comment: Test not indicated. Performed By: #### 3 1201-7 ####[facility] LABIA [id number] [place] [address] [place] HIV 1+2 Ab+HIV1 p24 Ag IA Ql Non-Reactive Normal Nonreactive [facility] Comment on above: Order Comment: Speci men Type: BLOOD SPECIMENOrdering Facility: [facility] Address: [address] [place] [address] Performed By: #### 3 1201-7 ####[facility] LABIA [id number] [place] [address] [place] HIV immunoassay testing algorithm interpretation (S/P/Bld) [Interp] Normal [facility] Comment on above: Order Comment: Speci men Type: BLOOD SPECIMENOrdering Facility: [facility] Address: [address] [place] [address] Result Comment: No e vidence of HIV-1 or HIV-2 infection. Should recent infection be suspected, repeat testing may be considered 2-3 weeks after this draw.[place] Rev. Code 3701.243(E): This information has been [...] or diagnoses. Performed By: #### 3 1201-7 ####[facility] [id number] [address] [address] [place] CNOVon 10-08-2024 CNOV Normal [facility] CNOVon 09-22-2024 CNOV Normal [facility] Emergency Department Summary on 09-22-2024 Emergency Department Summary [facility] Medical Records Department [address] [place] [address] Emergency Department Summary 09/22/24 MR#: [id number] Acct: [id number] Name: DORY ANDREWS GREG Rep #: [id number] : 2000 23 From: Ulises Garcia DO PCP: Dr. Wu Herrera MD Status:REG ER Location: ED HPI History of Present Illness Chief Complaint: Back [facility] Medical History Chronic gastritis Former smoker [...] 09/05/24 @ 15:51 by Wade Wilcox NP, BROKER IN CHARGE-C) Smoking Status: Current every day smoker tobacco [...] of in (more content not included)... Normal [facility] Urinalysis, Completeon 09-22 RBC 0 SEEN Normal 0-5 [facility] Comment on above: Order Comment: CLEAN CATCH Performed By: #### L 100.0100, L300.4310, L300.3900, L700.6800 #### [facility] Laboratory [address] [place], [place], [id number] BACTERIA 1+ /hpf Normal None Seen [facility] Comment on above: Order Comment: CLEAN CATCH Performed By: #### L 100.0100, L300.4310, L300.3900, L700.6800 #### [facility] [address] [place], [place], [address] EPI,SQUAMOUS 0-5 SEEN Normal 5-10 [facility] Comment on above: Order Comment: CLEAN CATCH Performed By: #### L 100.0100, L300.4310, L300.3900, L700.6800 #### [facility] [address] [place], [address] WBC 0-5 SEEN Normal 0-5 [facility] Comment on above: Order Comment: CLEAN CATCH Performed By: #### L 100.0100, L300.4310, L300.3900, L700.6800 #### [facility] [address] [place], [address] Mucus Ql (Urine sed) 0 SEEN Normal [facility] Comment on above: Order Comment: CLEAN CATCH Performed By: #### L 100.0100, L300.4310, L300.3900, L700.6800 #### [facility] [address] [place], [address] CBC W Auto Differential pane l (Bld)on 09-19-2024 Basophils (Bld) [#/Vol] 0.04 10*3/uL Normal <0.11 [facility] Comment on above: Order Comment: Speci men Type: BLOOD SPECIMENOrdering Facility: [facility] Address: [address] [place] [address] Performed By: #### 5 7021-8 ####[facility]CL[facility] [id number] [place] [address] [place] Basophils/100 WBC (Bld) 0.5 % Normal [facility] Comment on above: Order Comment: Speci men Type: BLOOD SPECIMENOrdering Facility: [facility] Address: [address] [place] [address] Performed By: #### 5 7021-8 ####[facility]CL[facility] [id number] [place] [address] [place] Differential cell count method Nom (Bld) Auto Normal [facility] Comment on above: Order Comment: Speci men Type: BLOOD SPECIMENOrdering Facility: [facility] Address: [address] [place] [address] Performed By: #### 5 7021-8 ####[facility]CLIA [id number] [address], [facility]95 [place] Eosinophils (Bld) [#/Vol] 0.10 10*3/uL Normal <0.46 [facility] Comment on above: Order Comment: Speci men Type: BLOOD SPECIMENOrdering Facility: [facility] Address: [address] [place] [address] Performed By: #### 5 7021-8 ####[facility]CLIA [id number] [address], [place] [address] [place] Eosinophils/100 WBC (Bld) 1.3 % Normal [facility] Comment on above: Order Comment: Speci men Type: BLOOD SPECIMENOrdering Facility: [facility] Address: [address] [place] [address] Performed By: #### 5 7021-8 ####[facility]CL[facility] [id number] [facility] [address], [facility]95 [place] Erythrocyte distribution width (RBC) [Ratio] 12.3 % Normal 11.5-15.0 [facility] Comment on above: Order Comment: Speci men Type: BLOOD SPECIMENOrdering Facility: [facility] Address: [address] [place] [address] Performed By: #### 5 7021-8 ####[facility]CL[facility] [id number] [facility] [address], [facility]95 [place] Hematocrit (Bld) [Volume fraction] 43.0 % Normal 36.0-46.0 [facility] Comment on above: Order Comment: Speci men Type: BLOOD SPECIMENOrdering Facility: [facility] Address: [address] [place] [address] Performed By: #### 5 7021-8 ####[facility] [id number] [facility] [place] [address] [place] Hemoglobin (Bld) [Mass/Vol] 14.2 g/dL Normal 11.5-15.5 [facility] Comment on above: Order Comment: Speci men Type: BLOOD SPECIMENOrdering Facility: [facility] Address: [address] [place] [address] Performed By: #### 5 7021-8 ####[facility]CLIA [id number] [place] [address] [place] Immature granulocytes (Bld) [#/Vol] 10*3/uL Normal <0.10 [facility] Comment on above: Order Comment: Speci men Type: BLOOD SPECIMENOrdering Facility: [facility] Address: [address] [place] [address] Performed By: #### 5 7021-8 ####[facility]CL[facility] [id number] [place] [address] [place] Immature granulocytes/100 WBC (Bld) 0.1 % Normal [facility] Comment on above: Order Comment: Speci men Type: BLOOD SPECIMENOrdering Facility: [facility] Address: [address] [place] [address] Performed By: #### 5 7021-8 ####[facility]CLIA [id number] [place] [address] [place] Lymphocytes (Bld) [#/Vol] 2.14 10*3/uL Normal 1.00-4.00 [facility] Comment on above: Order Comment: Speci men Type: BLOOD SPECIMENOrdering Facility: [facility] Address: [address] [place] [address] Performed By: #### 5 7021-8 ####[facility]CLIA [id number] [place] [address] [place] Lymphocytes/100 WBC (Bld) 28.4 % Normal [facility] Comment on above: Order Comment: Speci men Type: BLOOD SPECIMENOrdering Facility: [facility] Address: [address] [place] [address] Performed By: #### 5 7021-8 ####[facility] LABIA [id number] [address] [place] [facility] MCH (RBC) [Entitic mass] 31.6 pg Normal 26.0-34.0 [facility] Comment on above: Order Comment: Speci men Type: BLOOD SPECIMENOrdering Facility: [facility] Address: [address] [place] [address] Performed By: #### 5 7021-8 ####[facility] LABIA [id number] [place] [address] [place] MCHC (RBC) [Mass/Vol] 33.0 g/dL Normal 30.5-36.0 [facility] Comment on above: Order Comment: Speci men Type: BLOOD SPECIMENOrdering Facility: [facility] Address: [address] [place] [address] Performed By: #### 5 7021-8 ####[facility] LABIA [id number] [place] [address] [place] MCV (RBC) [Entitic vol] 95.8 fL Normal 80.0-100.0 [facility] Comment on above: Order Comment: Speci men Type: BLOOD SPECIMENOrdering Facility: [facility] Address: [address] [place] [address] Performed By: #### 5 7021-8 ####[facility] LABIA [id number] [place] [address] [place] Monocytes (Bld) [#/Vol] 0.56 10*3/uL Normal <0.87 [facility] Comment on above: Order Comment: Speci men Type: BLOOD SPECIMENOrdering Facility: [facility] Address: [address] [place] [address] Performed By: #### 5 7021-8 ####[facility] LABCLIA [id number] [place] [id number] [place] Monocytes/100 WBC (Bld) 7.4 % Normal [facility] Comment on above: Order Comment: Speci men Type: BLOOD SPECIMENOrdering Facility: [facility] Address: [address] [place] [address] Performed By: #### 5 7021-8 ####[facility]CL[facility] [id number] [place] [address] [place] Neutrophils (Bld) [#/Vol] 4.68 10*3/uL Normal 1.45-7.50 [facility] Comment on above: Order Comment: Speci men Type: BLOOD SPECIMENOrdering Facility: [facility] Address: [address] [place] [address] Performed By: #### 5 7021-8 ####[facility] LABCLIA [id number] [place] [address] [place] Neutrophils/100 WBC (Bld) 62.3 % Normal [facility] Comment on above: Order Comment: Speci men Type: BLOOD SPECIMENOrdering Facility: [facility] Address: [address] [place] [address] Performed By: #### 5 7021-8 ####[facility] LABIA [id number] [place] [address] [place] Nucleated RBC (Bld) [#/Vol] 10*3/uL Normal <0.01 [facility] Comment on above: Order Comment: Speci men Type: BLOOD SPECIMENOrdering Facility: [facility] Address: [address] [place] [address] Performed By: #### 5 7021-8 ####[facility] LABCLIA [id number] [place] [id number] [place] Nucleated RBC/100 WBC (Bld) [Ratio] 0.0 /100 WBC Normal [facility] Comment on above: Order Comment: Speci men Type: BLOOD SPECIMENOrdering Facility: [facility] Address: [address] [place] [address] Performed By: #### 5 7021-8 ####[facility] LABIA [id number] [place] [address] [place] Platelet mean volume (Bld) [Entitic vol] 11.0 fL Normal 9.0-12.7 [facility] Comment on above: Order Comment: Speci men Type: BLOOD SPECIMENOrdering Facility: [facility] Address: [address] [place] [address] Performed By: #### 5 7021-8 ####[facility] LABIA [id number] [place] [address] [place] Platelets (Bld) [#/Vol] 259 10*3/uL Normal 150-400 [facility] Comment on above: Order Comment: Speci men Type: BLOOD SPECIMENOrdering Facility: [facility] Address: [address] [place] [address] Performed By: #### 5 7021-8 ####[facility] LABIA [id number] [place] [address] [place] RBC (Bld) [#/Vol] 4.49 10*6/uL Normal 3.90-5.20 [facility] Comment on above: Order Comment: Speci men Type: BLOOD SPECIMENOrdering Facility: [facility] Address: [address] [place] [address] Performed By: #### 5 7021-8 ####[facility] LABIA [id number] [place] [address] [place] WBC (Bld) [#/Vol] 7.53 10*3/uL Normal 3.70-11.00 [facility] Comment on above: Order Comment: Speci men Type: BLOOD SPECIMENOrdering Facility: [facility] Address: [address] [place] [address] Performed By: #### 5 7021-8 ####[facility] LABCLIA [id number] [place] [address] [place] CNOVon 09-19-2024 CNOV Normal [facility] MR/BMS.BPon 09-12-2024 MR/BMS.BP [facility] [address] [facility], [address] [place] [address] OFFICE VISIT Date of Service: 09/12/24 MR#: [id number] Acct: [id number] Name: DORY ANDREWS Rep #: [id number] : 2000 Provider: Dr. Hakeem Izaguirre se, DO Age/Sex: 23/F Location: [facility] Status: Signed Intake Vital Signs 07/18/24 14:24 [...] 09/05/24 @ 15:51 by Wade Wilcox NP, BROKER IN CHARGE-C) Smoking Status: Current every day smoker tobacco [...] evaluation. 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 Admits to having a near 20 day period of menstruation, and feeling like she didn't get answer for how to control symptoms. Will be following with new Business Development Professional in [place] in the next couple days. Has been taking prazosin intermittently, but only when she feels she needs to sleep. Just recently had to meet with victims advocate in [place] regarding her ongoing assault charges, but now court is pushed out until November. This coincides with right before her son's birthday, which is December 08. Continues to do counseling at [facility]. Denies any significant resolution in regards to [...] this capacity ??? Continue in therapy through [facility] (2) Bipolar 1 disorder, depressed, severe: Plan: - Did start duloxetine for pain management and did discuss the use of medication in rega (more content not included)... Normal [facility] CNPNon 09-08-2024 CNPN Normal [facility] Cardiology Visit Reporton Cardiology Visit Report [facility] 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 Normal [facility] 09-01-2024 [facility] Normal [facility] Emergency Department Summary on 08-31-2024 Emergency Department Summary [facility] Medical Records Department [address] [place] [address] Emergency Department Summary 08/31/24 MR#: [id number] Acct: [id number] Name: DORY ANDREWS Rep #: [id number] : 2000 23 From: Gustavo Rosado DO [...] was sent to the hospital for evaluation [facility] Medical History Chronic gastritis Former smoker [...] inspection, nondistended (more content not included)... Normal [facility] Partial Thromboplast Timeon 08-31-2024 aPTT Coag (Bld) [Time] 28.4 s Normal 24.1-36.2 [facility] Comment on above: Performed By: #### L 100.0100, L300.4310, L300.3900, L700.6800 #### [facility] Laboratory [address] [place], [address] Prothrombin Time w/INRon INR Coag (PPP) [Relative time] 1.0 {INR} Normal [facility] Comment on above: Performed By: #### L 100.0100, L300.4310, L300.3900, L700.6800 #### [facility] [address] [place], [address] PT Coag (PPP) [Time] 13.7 s Normal 11.7-14.[address] [facility] Comment on above: Performed By: #### L 100.0100, L300.4310, L300.3900, L700.6800 #### [facility] [address] [place], [address] Basic Metabolic Profile (BMP )on 08-30-2024 BUN/CRE 10.8 RATIO Normal 10-20 [facility] Comment on above: Performed By: #### L 100.0100, L300.4310, L300.3900, L700.6800 #### [facility] [address] [place], [address] CA,Total 9.3 mg/dL Normal 8.5-10.1 [facility] Comment on above: Performed By: #### L 100.0100, L300.4310, L300.3900, L700.6800 #### [facility] [address] [place], [address] Chloride [Moles/Vol] 112 mmol/L High 98-[address] [facility] Comment on above: Performed By: #### L 100.0100, L300.4310, L300.3900, L700.6800 #### [facility] [address] [place], [address] CO2 [Moles/Vol] 17.0 mmol/L Low 21.0-32.0 [facility] Comment on above: Performed By: #### L 100.0100, L300.4310, L300.3900, L700.6800 #### [facility] [address] [place], [address] Creatinine [Mass/Vol] 0.65 mg/dL Normal 0.55-1.02 [facility] Comment on above: Result Comment: The validity of the calculated GFR GFRAA in patients over 70 years has not been determined. Clinical correlation is essential. Performed By: #### L 100.0100, L300.4310, L300.3900, L700.6800 #### [facility] [address] [place], [address] ECRCL 116.30 ml/min Normal [facility] Comment on above: Performed By: #### L 100.0100, L300.4310, L300.3900, L700.6800 #### [facility] [address] [place], [address] EST GFR - AA 145 mL/min Normal >60 [facility] Comment on above: Result Comment: Afri can Mont[place]err[place] GFR Calc Performed By: #### L 100.0100, L300.4310, L300.3900, L700.6800 #### [facility] [address] [place], [address] GAP 7 Normal 5-15 [facility] Comment on above: Performed By: #### L 100.0100, L300.4310, L300.3900, L700.6800 #### [facility] [address] [place], [address] GFR/1.73 sq M.predicted among non-blacks MDRD (S/P/Bld) [Vol rate/Area] 120 mL/min/{1.73_m2} Normal >60 [facility] Comment on above: Result Comment: Non- GFR Calc Performed By: #### L 100.0100, L300.4310, L300.3900, L700.6800 #### [facility] [address] [place], [address] Glucose [Mass/Vol] 80 mg/dL Normal 74-106 [facility] Comment on above: Performed By: #### L 100.0100, L300.4310, L300.3900, L700.6800 #### [facility] [address] [place], [address] Potassium [Moles/Vol] 4.6 mmol/L Normal 3.5-5.1 [facility] Comment on above: Performed By: #### L 100.0100, L300.4310, L300.3900, L700.6800 #### [facility] [address] [place], [address] Sodium [Moles/Vol] 136 mmol/L Normal 136-145 [facility] Comment on above: Performed By: #### L 100.0100, L300.4310, L300.3900, L700.6800 #### [facility] [address] [place], [address] Urea nitrogen [Mass/Vol] 7 mg/dL Normal 7-18 [facility] Comment on above: Performed By: #### L 100.0100, L300.4310, L300.3900, L700.6800 #### [facility] [address] [place], [address] CBC W/Diff, Automatedon 08-13 Absolute Lymph 3.04 X10 3/uL Normal 0.83-4.51 [facility] Comment on above: Performed By: #### L 100.0100, L300.4310, L300.3900, L700.6800 #### [facility] [address] [place], [address] Absolute Neut 3.5 X10 3/uL Normal 2.0-7.7 [facility] Comment on above: Performed By: #### L 100.0100, L300.4310, L300.3900, L700.6800 #### [facility] [address] [place], [address] Basophils/100 WBC (Bld) 0.8 % Normal 0-1 [facility] Comment on above: Performed By: #### L 100.0100, L300.4310, L300.3900, L700.6800 #### [facility] [address] [place], [address] Eosinophils/100 WBC (Bld) 1.7 % Normal 0-5 [facility] Comment on above: Performed By: #### L 100.0100, L300.4310, L300.3900, L700.6800 #### [facility] [address] [place], [address] Erythrocyte distribution width (RBC) [Ratio] 12.4 % Normal 11.6-14.6 [facility] Comment on above: Performed By: #### L 100.0100, L300.4310, L300.3900, L700.6800 #### [facility] [address] [place], [address] Hematocrit (Bld) [Volume fraction] 47.6 % High 37-47 [facility] Comment on above: Performed By: #### L 100.0100, L300.4310, L300.3900, L700.6800 #### [facility] [address] [place], [address] Hemoglobin (Bld) [Mass/Vol] 15.6 g/dL High 12.0-15.0 [facility] Comment on above: Performed By: #### L 100.0100, L300.4310, L300.3900, L700.6800 #### [facility] [address] [place], [address] IG% 0.100 Normal 0.0-0.9 [facility] Comment on above: Result Comment: IG% - Immature Granulocytes (promyelocytes, myelocytes and metamyelocytes) > 1% indicates that a LEFT SHIFT is Present. Performed By: #### L 100.0100, L300.4310, L300.3900, L700.6800 #### [facility] [address] [place], [address] Lymphocytes/100 WBC (Bld) 41.9 % High 19-41 [facility] Comment on above: Performed By: #### L 100.0100, L300.4310, L300.3900, L700.6800 #### [facility] [address] [place], [address] MCH (RBC) [Entitic mass] 32.0 pg Normal 27.0-32.0 [facility] Comment on above: Performed By: #### L 100.0100, L300.4310, L300.3900, L700.6800 #### [facility] [address] [place], [address] MCHC (RBC) [Mass/Vol] 32.8 g/dL Normal 32-36 [facility] Comment on above: Performed By: #### L 100.0100, L300.4310, L300.3900, L700.6800 #### [facility] [address] [place], [address] MCV (RBC) [Entitic vol] 97.5 fL Normal 81-99 [facility] Comment on above: Performed By: #### L 100.0100, L300.4310, L300.3900, L700.6800 #### [facility] [address] [place], [address] Monocytes/100 WBC (Bld) 7.2 % Normal 0-10 [facility] Comment on above: Performed By: #### L 100.0100, L300.4310, L300.3900, L700.6800 #### [facility] [address] [place], [address] Neutrophils/100 WBC (Bld) 48.3 % Normal 47-70 [facility] Comment on above: Performed By: #### L 100.0100, L300.4310, L300.3900, L700.6800 #### [facility] [address] [place], [address] Nucleated RBC (Bld) [#/Vol] 0 10*3/uL Normal 0-5 [facility] Comment on above: Performed By: #### L 100.0100, L300.4310, L300.3900, L700.6800 #### [facility] [address] [place], [address] Platelet mean volume (Bld) [Entitic vol] 10.9 fL Normal 6.2-12.0 [facility] Comment on above: Performed By: #### L 100.0100, L300.4310, L300.3900, L700.6800 #### [facility] [address] [place], [address] Platelets (Bld) [#/Vol] 177 10*3/uL Normal 150-450 [facility] Comment on above: Performed By: #### L 100.0100, L300.4310, L300.3900, L700.6800 #### [facility] [address] [place], [address] RBC (Bld) [#/Vol] 4.88 10*6/uL Normal 4.2-5.4 [facility] Comment on above: Performed By: #### L 100.0100, L300.4310, L300.3900, L700.6800 #### [facility] [address] [place], [address] RDW SD 44.3 fl High 35.1-43.9 [facility] Comment on above: Performed By: #### L 100.0100, L300.4310, L300.3900, L700.6800 #### [facility] [address] [place], [address] WBC (Bld) [#/Vol] 7.3 10*3/uL Normal 4.4-11.0 [facility] Comment on above: Performed By: #### L 100.0100, L300.4310, L300.3900, L700.6800 #### [facility] [address] [place], [address] ,Serum,hCG Quali.on 08-30-2024 HCG, SERUM QUAL Negative Normal [facility] Comment on above: Performed By: #### L 100.0100, L300.4310, L300.3900, L700.6800 #### [facility] [address] [place], [address] Transvaginal Non-on 08-30-2024 Transvaginal Non- [facility] Imaging Services [address] [place] [address] Transvaginal Non- MR#: [id number] Acct: [id number] Name: DORY ANDREWS GREG Rep #: [id number] : 2000 F 23 From: Evelyn Cordon nd, MD PCP: Dr. Wu Herrera MD Status: [facility] Study: Transvaginal Non- Date of Exam: Exam# [id number] Ordering Dr: Gustavo Rosado DO PROCEDURE: TRANSVAGINAL [...] IMPRESSION: NORMAL TRANSVAGINAL PELVIC ULTRASOUND. Reading Location: [id number] CC: Dr. Wu Herrera MD; Gustavo Rosado DO Clerk Rating: Signed Normal [facility] CBC panel Auto (Bld)on 08-29 Erythrocyte distribution width (RBC) [Ratio] 12.4 % 11.5 - 15.0 % [facility] Hematocrit (Bld) [Volume fraction] 41.5 % 36.0 - 46.0 % [facility] Hemoglobin (Bld) [Mass/Vol] 14.1 g/dL 11.5 - 15.5 g/dL [facility] Interpretation and review of laboratory results Normal [facility] MCH (RBC) [Entitic mass] 31.5 pg 26.0 - 34.0 pg [facility] MCHC (RBC) [Mass/Vol] 34 g/dL 30.5 - 36.0 g/dL [facility] MCV (RBC) [Entitic vol] 92.8 fL 80.0 - 100.0 fL [facility] Nucleated RBC (Bld) [#/Vol] NINF [facility] Platelet mean volume (Bld) [Entitic vol] 10.2 fL 9.0 - 12.7 fL [facility] Platelets (Bld) [#/Vol] 225 10*3/uL [facility] RBC (Bld) [#/Vol] 4.47 10*6/uL 3.90 - 5.2 0 m/uL [facility] WBC (Bld) [#/Vol] 6.18 10*3/uL [facility] Erythrocyte distribution width (RBC) [Ratio] 12.4 % Normal 11.5-15.0 [facility] Comment on above: Order Comment: Speci men Type: BLOOD SPECIMENOrdering Facility: [facility] Address: [address] [place], [place] [address] Performed By: #### 5 8410-2 ####[facility] ER [id number] [address] [place] Hematocrit (Bld) [Volume fraction] 41.5 % Normal 36.0-46.0 [facility] Comment on above: Order Comment: Speci men Type: BLOOD SPECIMENOrdering Facility: [facility] Address: [address] [place] [address] Performed By: #### 5 8410-2 ####[facility] [id number] [address] [place] Hemoglobin (Bld) [Mass/Vol] 14.1 g/dL Normal 11.5-15.5 [facility] Comment on above: Order Comment: Speci men Type: BLOOD SPECIMENOrdering Facility: [facility] Address: [address] [place] [address] Performed By: #### 5 8410-2 ####[facility] ERNAOM[facility] [id number] [address] [place] MCH (RBC) [Entitic mass] 31.5 pg Normal 26.0-34.0 [facility] Comment on above: Order Comment: Speci men Type: BLOOD SPECIMENOrdering Facility: [facility] Address: [address] [place] [address] Performed By: #### 5 8410-2 ####[facility] [id number] [place] [address] [place] MCHC (RBC) [Mass/Vol] 34.0 g/dL Normal 30.5-36.0 [facility] Comment on above: Order Comment: Speci men Type: BLOOD SPECIMENOrdering Facility: [facility] Address: [address] [place] [address] Performed By: #### 5 8410-2 ####[facility] ERNCLI [id number] [place] [address] [place] MCV (RBC) [Entitic vol] 92.8 fL Normal 80.0-100.0 [facility] Comment on above: Order Comment: Speci men Type: BLOOD SPECIMENOrdering Facility: [facility] Address: [address] [place] [address] Performed By: #### 5 8410-2 ####[facility] ERNCAMAN [id number] [place] [address] [place] Nucleated RBC (Bld) [#/Vol] 10*3/uL Normal <0.01 [facility] Comment on above: Order Comment: Speci men Type: BLOOD SPECIMENOrdering Facility: [facility] Address: [address] [place] [address] Performed By: #### 5 8410-2 ####[facility] ER[facility]CL[facility] [id number] [place] [address] [place] Platelet mean volume (Bld) [Entitic vol] 10.2 fL Normal 9.0-12.7 [facility] Comment on above: Order Comment: Speci men Type: BLOOD SPECIMENOrdering Facility: [facility] Address: [address] [place] [address] Performed By: #### 5 8410-2 ####[facility] ERNCLIA [id number] [place] [address] [place] Platelets (Bld) [#/Vol] 225 10*3/uL Normal 150-400 [facility] Comment on above: Order Comment: Speci men Type: BLOOD SPECIMENOrdering Facility: [facility] Address: [address] [place] [address] Performed By: #### 5 8410-2 ####[facility] [id number] [place] [address] [place] RBC (Bld) [#/Vol] 4.47 10*6/uL Normal 3.90-5.20 [facility] Comment on above: Order Comment: Speci men Type: BLOOD SPECIMENOrdering Facility: [facility] Address: [address] [place], [place] [address] Performed By: #### 5 8410-2 ####[facility] AKHTARNCLIA [id number] [place] [address] [place] WBC (Bld) [#/Vol] 6.18 10*3/uL Normal 3.70-11.00 [facility] Comment on above: Order Comment: Speci men Type: BLOOD SPECIMENOrdering Facility: [facility] Address: [address] [place] [address] Performed By: #### 5 8410-2 ####[facility] KAYESANFORDNCLIA [id number] [place] [address] [place] CNOVon 08-29-2024 CNOV Normal [facility] CNOVon 08-27-2024 CNOV Normal [facility] CNOVon 08-22-2024 CNOV Normal [facility] CNTHERAPYon 08-22-2024 CNTHERAPY Normal [facility] THERAPY NTon 08-22-2024 THERAPY NT Normal [facility] CNTHERAPYon 08-17-2024 CNTHERAPY Normal [facility] CNOVon 08-15-2024 CNOV Normal [facility] [id number] 08-12-2024 [id number] Normal [facility] CNTHERAPYon 08-08-2024 CNTHERAPY Normal [facility] THERAPY NTon 08-08-2024 THERAPY NT Normal [facility] CNTHERAPYon 08-02-2024 CNTHERAPY Normal [facility] THERAPY NTon 08-02-2024 THERAPY NT Normal [facility] [id number] 07-26-2024 [id number] Normal [facility] CNTHERAPYon 07-26-2024 CNTHERAPY Normal [facility] THERAPY NTon 07-26-2024 THERAPY NT Normal [facility] CNOVon 07-19-2024 CNOV Normal [facility] MR Brain WO contraston 07-18 IMPRESSION: No acute findings. No acute infarction, intracranial hemorrhage or intracranial mass lesion. No MR evidence to suggest chronic traumatic brain injury. Clerk Rating: PSCB Transcribe Date/Time: Jul 18 2024 2:07P Dictated by : LALIT GARCIA MD This examination was interpreted and the report reviewed and electronically signed by: LALIT GARCIA MD on Jul 18 2024 2:09PM [facility] DIVISION OF RADIOLOGY * * *Final Report* * * DATE OF EXAM: Jul 18 2024 1:47PM [facility] 0294 - MRI BRAIN WO IVCON / [...] tissues are unremarkable. DIVISION OF RADIOLOGY Provider, [facility] - 07/18/2024 * * *Final Report* * * DATE OF EXAM: Jul 18 2024 1:47PM [facility] 0294 - MRI BRAIN WO IVCON / [...] evidence to suggest chronic traumatic brain injury. Clerk Rating: JOSE Transcribe Date/Time: Jul 18 2024 2:07P Dictated by : LALIT GARCIA MD This examination was interpreted and the report reviewed and electronically signed by: LALIT GARCIA MD on Jul 18 2024 2:09PM EST [facility] Radiology Study observation (narrative) [facility] MR Brain WO contrastOrdered By: Ccf Provider on 07-18-2024 [facility] MR/BMS.BPon 07-18-2024 MR/BMS.BP [address], [address] [place] [address] OFFICE VISIT Date of Service: 07/18/24 MR#: [id number] Acct: [id number] Name: DORY ANDREWS GREG Rep #: [id number] : 2000 Provider: Dr. Hakeem Izaguirre se, DO Age/Sex: 23/F Location: [facility].BP Status: Signed Intake Vital Signs 04/25/24 14:00 [...] evaluation. Patient reports that things have been "pretty good." Continues to have some significant anxiety around [...] beneficial. Continues to do individual counseling through [facility]. Has been utilizing lorazepam at night as [...] Memory/Cognition ot (more content not included)... Normal [facility] MRI BRAIN WO IVCONon 025 MRI BRAIN WO IVCON Normal [facility] CNOVon 07-11-2024 CNOV Normal [facility] NM GASTRIC EMPTYING SOLIDon 07-08-2024 NM GASTRIC EMPTYING SOLID Normal [facility] Stomach Views for gastric emptying solid phase W radionuclide Veronica 07-08-2024 IMPRESSION: Normal gastric emptying rate for the solid meal. Clerk Rating: JOSE Transcribe Date/Time: Jul 08 2024 1:12P Dictated by : ELINA DONOVAN DO This examination was interpreted and the report reviewed and electronically signed by: ELINA DONOVAN DO on Jul 08 2024 1:13PM [facility] DIVISION OF RADIOLOGY * * *Final Report* [...] Accommodation: Adequate DIVISION OF RADIOLOGY Provider, Bharati Wilkes [facility] - 07/08/2024 * * *Final Report* * [...] gastric emptying rate for the solid meal. Clerk Rating: JOSE Transcribe Date/Time: Jul 08 2024 1:12P Dictated by : ELINA DONOVAN DO This examination was interpreted and the report reviewed and electronically signed by: ELINA DONOVAN DO on Jul 08 2024 1:13PM EST [facility] Radiology Study observation (narrative) [facility] Stomach Views for gastric emptying solid phase W radionuclide POOrdered By: Ccf Provider on 07-08-2024 [facility] Emergency Department Summary on 07-03-2024 Emergency Department Summary [facility] Medical Records Department [address] [place] [address] Emergency Department Summary 07/03/24 MR#: [id number] Acct: [id number] Name: DORY ANDREWS GREG Rep #: [id number] : 2000 23 From: Roly Montgomery PCP: [...] symptoms: Yes and With Prior Back Pain [facility] Medical History Chronic gastritis Former smoker [...] 1+ patellar (more content not included)... Normal [facility] Basic Metabolic Profile (BMP )on 06-30-2024 BUN/CRE 13.4 RATIO Normal - [facility] Comment on above: Performed By: #### L 500.2500 #### [facility] Laboratory [address] [place], [address] CA,Total 9.0 mg/dL Normal 8.5-10.1 [facility] Comment on above: Performed By: #### L 500.2500 #### [facility] [address] [place], [address] Chloride [Moles/Vol] 109 mmol/L High 98-[address] [facility] Comment on above: Performed By: #### L 500.2500 #### [facility] [address] [place], [address] CO2 [Moles/Vol] 25.0 mmol/L Normal 21.0-32.0 [facility] Comment on above: Performed By: #### L 500.2500 #### [facility] [address] [place], [address] Creatinine [Mass/Vol] 0.67 mg/dL Normal 0.55-1.02 [facility] Comment on above: Result Comment: The validity of the calculated GFR GFRAA in patients over 70 years has not been determined. Clinical correlation is essential. Performed By: #### L 500.2500 #### [facility] [address] [place], [address] EST GFR - AA 140 mL/min Normal >60 [facility] Comment on above: Result Comment: Afri can [place] GFR Calc Performed By: #### L 500.2500 #### [facility] [address] [place], [address] GAP 6 Normal 5-15 [facility] Comment on above: Performed By: #### L 500.2500 #### [facility] [address] [place], [address] GFR/1.73 sq M.predicted among non-blacks MDRD (S/P/Bld) [Vol rate/Area] 116 mL/min/{1.73_m2} Normal >60 [facility] Comment on above: Result Comment: Non- GFR Calc Performed By: #### L 500.2500 #### [facility] [address] [place], [address] Glucose [Mass/Vol] 85 mg/dL Normal 74-106 [facility] Comment on above: Performed By: #### L 500.2500 #### [facility] [address] [place], [address] Potassium [Moles/Vol] 3.5 mmol/L Normal 3.5-5.1 [facility] Comment on above: Performed By: #### L 500.2500 #### [facility] [address] [place],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 LABIA [id number] [place] [address] [place] AMADEO BEER MAKER Ab Ser-aCncon 2023 Ribonucleoprotein extractable nuclear Ab Qn (S) <0.2 Normal <1.0 [facility] Comment on above: Order Comment: Speci men Type: BLOOD SPECIMENOrdering Facility: [facility] Address: [address] [place] [address] Performed By: #### 5 1775-5, 57377-0, 10411-6, 99153-9, 23193-7, 74594-3, 31412-5, 10643-8 ####[facility] LABIA [id number] [place] [address] [place] AMADEO SM IgG Ser-aCncon 2023 Mitchell extractable nuclear IgG Qn (S) <0.2 Normal <1.0 [facility] Comment on above: Order Comment: Speci men Type: BLOOD SPECIMENOrdering Facility: [facility] Address: [address] [place] [address] Performed By: #### 5 1775-5, 16299-5, 77286-4, 80507-3, 66037-7, 28401-4, 25252-9, 72611-8 ####[facility] LABCLIA [id number] [place] [address] [place] AMADEO SS-A Ab Ser-aCncon 06-16 Sjogrens syndrome-A extractable nuclear Ab Qn (S) <0.2 Normal <1.0 [facility] Comment on above: Order Comment: Speci men Type: BLOOD SPECIMENOrdering Facility: [facility] Address: [address] [place] [address] Result Comment: Test Methodology: Multiplex flow immunoassay. Performed By: #### 5 1775-5, 49138-5, 07293-7, 86819-2, 29012-8, 79802-1, 08322-3, 60815-1 ####[facility] LABIA [id number] [address] [place] AMADEO SS-B Ab Ser-aCncon 06-16 Sjogrens syndrome-B extractable nuclear Ab Qn (S) <0.2 Normal <1.0 [facility] Comment on above: Order Comment: Speci men Type: BLOOD SPECIMENOrdering Facility: [facility] Address: [address] [place] [address] Result Comment: Anti -SSB (anti-La) antibody is used as an aid in diagnosis of a variety of systemic autoimmune diseases, especially for Sjogren's syndrome and systemic lupus erythematosus. Clinical correlation is required.Test Methodology: Multiplex flow immunoassay. Performed By: #### 5 1775-5, 32120-2, 87464-3, 42373-3, 57467-2, 14075-9, 44026-9, 89960-6 ####[facility] LABCLIA [id number] [place] [address] [place] ESR Westergren method (Bld) [Velocity]on 06-16-2024 ESR (Bld) [Velocity] 2 mm/h Normal 0-20 [facility] Comment on above: Order Comment: Speci men Type: BLOOD SPECIMENOrdering Facility: [facility] Address: [address] [place] [address] Performed By: #### 4 537-7 ####[facility] LABCLIA [id number] [id number] [place] Esophagus Dual Contraston Esophagus Dual Contrast [facility] [address] [place] [address] Esophagus Dual Contrast MR#: [id number] Acct: [id number] Name: DORY ANDREWS GREG Rep #: [id number] : 2000 F 23 From: Jr guidry MD PCP: Dr. Wu Herrera MD Status: [facility] CLI Study: Esophagus Dual Contrast Date of Exam: 06/16/24 Exam# [id number] Ordering Dr: John De Anda MD [id number] STUDY: X-RAY - ESOPHAGUS (BARIUM SWALLOW) WITH [...] Signed: Jr Shaver MD at 9:52 EST , CC: Dr. Wu Herrera MD; Dr. John De Anda MD Clerk Rating: Signed Normal [facility] Ferritin SerPl-mCncon 2023 Ferritin [Mass/Vol] 28.9 ng/mL Normal 14.7-205.1 [facility] Comment on above: Order Comment: Speci men Type: BLOOD SPECIMENOrdering Facility: [facility] Address: [address] [place] [address] Performed By: #### 2 276-4, 95510-8 ####[facility] LABCLIA [id number] [place] [address] [place] Folate SerPl-mCncon 06-16-20 Folate [Mass/Vol] 13.5 ng/mL Normal >4.7 [facility] Comment on above: Order Comment: Speci men Type: BLOOD SPECIMENOrdering Facility: [facility] Address: [address] [place] [address] Performed By: #### 2 284-8, 2885-2 ####[facility] LABCLIA [id number] [place] [address] [place] HISTONE IGG ABYon 06-16-2024 HISTONE 0.3 Units Normal <1.0 [facility] Comment on above: Order Comment: Speci men Type: BLOOD SPECIMENOrdering Facility: [facility] Address: [address] [place] [address] Performed By: #### 3 2677-7, HISTN ####[facility] LABCLIA [id number] [place] [address] [place] HISTONE IGG QUALITATIVE Negative Normal [facility] Comment on above: Order Comment: Speci men Type: BLOOD SPECIMENOrdering Facility: [facility] Address: [address] [place] [address] Result Comment: Anti -histone IgG antibody test is used as an aid in diagnosis of idiopathic and drug-induced systemic lupus erythematosus. It may be positive in other systemic autoimmune diseases. Clinical Correlation is required. Performed By: #### 3 2677-7, HISTN ####[facility] LABCLIA [id number] [address] IMMUNOFIXATION SCREEN, SERUM on 06-16-2024 MPA RESULT No M protein is identified. Normal No M protein is identified. [facility] Comment on above: Order Comment: Nabeel montero Type: BLOOD SPECIMENOrdering Facility: [facility] Address: [address] [place] [address] Performed By: #### I FESC ####[facility] LABIA [id number] [address] [place] STAFF REVIEW (MPA) Reviewed by Robert Stout MD, Ph.D ([id number]) Normal [facility] Comment on above: Order Comment: Nabeel montero Type: BLOOD SPECIMENOrdering Facility: [facility] Address: [address] [place] [address] Performed By: #### I FESC ####[facility] LABIA [id number] [place] [address] [place] Iron and Iron binding capaci ty panelon 06-16-2024 Iron [Mass/Vol] 95 ug/dL Normal 41-186 [facility] Comment on above: Order Comment: Nabeel montero Type: BLOOD SPECIMENOrdering Facility: [facility] Address: [address] [place] [address] Performed By: #### 4 485-9, 4498-2, 1988-5, 79921-1 ####[facility] LABCLIA [id number] [place] [address] [place] Iron binding capacity [Mass/Vol] 351 ug/dL Normal 232-386 [facility] Comment on above: Order Comment: Speci men Type: BLOOD SPECIMENOrdering Facility: [facility] Address: [address] [place] [address] Performed By: #### 4 485-9, 4498-2, 1987-11, 82109-9 ####[facility] LABCLIA [id number] [place] [address] [place] Iron/TIBC [Molar ratio] 27.1 % Normal 15.0-57.0 [facility] Comment on above: Order Comment: Speci men Type: BLOOD SPECIMENOrdering Facility: [facility] Address: [address] [place] [address] Performed By: #### 4 485-9, 4498-2, 1987-11, 05077-1 ####[facility] LABCLIA [id number] [place] [address] [place] Radha-1 extractable nuclear Ab Qn (S)on 06-16-2024 RADHA 1 ANTIBODY QUAL Negative Normal Negative [facility] Comment on above: Order Comment: Speci men Type: BLOOD SPECIMENOrdering Facility: [facility] Address: [address] [place] [address] Result Comment: Anti -RADHA-1 antibody is used as an aid in diagnosis of polymyositis and dermatomyositis especially with pulmonary involvement. A negative result cannot rule out polymyositis or dermatomyositis. Clinical correlation is required.Test Methodology: Multiplex flow immunoassay. Performed By: #### 5 1775-5, 52827-1, 41141-3, 25768-5, 76067-1, 98501-3, 92095-7, 65939-3 ####[facility] LABIA [id number] [place] [address] [place] KAPPA/HARDY,FREE,SERon 2023 Immunoglobulin light chains.kappa.free (S) [Mass/Vol] 10.6 mg/L Normal 3.3-19.4 [facility] Comment on above: Order Comment: Speci men Type: BLOOD SPECIMENOrdering Facility: [facility] Address: [address] [place] [address] Result Comment: Rare ly, increased serum free light chains levels may not be detected or accurately quantified due to prozone phenomenon or in high viscosity samples using this immunoturbidimetric assay. Correlation with other laboratory results and clinical findings is recommended.The [place] Free Light Chain was performed using the Binding Site Optilite immunoturbidimetric method. Result obtained with different assay methods or kits cannot be used interchangeably. Performed By: #### K LFRS ####[facility] LABCLIA [id number] [place] [address] [place] Immunoglobulin light chains.kappa/Immunog lobulin light chains.lambda (S) [Mass ratio] 1.09 Normal 0.26-1.65 [facility] Comment on above: Order Comment: Speci men Type: BLOOD SPECIMENOrdering Facility: [facility] Address: [address] [place] [address] Performed By: #### K LFRS ####[facility] LABCLIA [id number] [place] [address] [place] Immunoglobulin light chains.lambda.free [Mass/Vol] 9.7 mg/L Normal 5.7-26.3 [facility] Comment on above: Order Comment: Speci men Type: BLOOD SPECIMENOrdering Facility: [facility] Address: [address] [place] [address] Result Comment: Rare ly, increased serum free [...] used interchangeably. Performed By: #### K LFRS ####[facility] LABCLIA [id number] [place] [address] [place] LUPUS PANELon 12-05-2024 aPTT Coag (Bld) [Time] 35.9 s Normal 31.5-38.3 [facility] Comment on above: Order Comment: Speci men Type: BLOOD SPECIMENOrdering Facility: [facility] Address: [address] [place] [address] Result Comment: This test was developed, and its performance characteristics determined by the [facility] Department of Pathology and Laboratory Medicine. It has not been cleared or approved by the FDA. The [facility] Department of Pathology and Laboratory Medicine is regulated under CLIA as qualified to perform high-complexity testing. This test is used for clinical purposes. It should not be regarded as investigational or for research. Performed By: #### L UPPL, [id number] ####[facility] LABIA [id number] [place] [address] [place] aPTT Coag (Bld) [Time] 28.6 s Normal 24.0-35.1 [facility] Comment on above: Order Comment: Speci men Type: BLOOD SPECIMENOrdering Facility: [facility] Address: [address] [place] [address] Performed By: #### L UPPL, [id number] ####[facility] LABIA [id number] [place] [address] [place] aPTT W excess hexagonal phase phospholipid Coag (PPP) [Time] 45.6 seconds Normal 34.0-51.8 [facility] Comment on above: Order Comment: Speci men Type: BLOOD SPECIMENOrdering Facility: [facility] Address: [address] [place] [address] Performed By: #### L UPPL, [id number] ####[facility] LABIA [id number] [place] [address] [place] Coagulation factor X activated act Coag Qn (PPP) <0.10 Normal <0.10 [facility] Comment on above: Order Comment: Speci men Type: BLOOD SPECIMENOrdering Facility: [facility] Address: [address] [place] [address] Result Comment: This test was developed, and its performance characteristics determined by the [facility] Department of Pathology and Laboratory Medicine. It has not been cleared or approved by the FDA. The [facility] Department of Pathology and Laboratory Medicine is regulated under CLIA as qualified to perform high-complexity testing. This test is used for clinical purposes. It should not be regarded as investigational or for research. Performed By: #### L UPPL, [id number] ####[facility] LABCLIA [id number] [place] [address] [place] Delta dRVVT Coag (PPP) [Time diff] 1.9 delta seconds Normal <7.1 [facility] Comment on above: Order Comment: Speci men Type: BLOOD SPECIMENOrdering Facility: [facility] Address: [address] [place] [address] Performed By: #### L UPPL, [id number] ####[facility] LABCLIA [id number] [place] [address] [place] dRVVT Coag (PPP) [Time] 32.0 s Normal 32.0-45.7 [facility] Comment on above: Order Comment: Speci men Type: BLOOD SPECIMENOrdering Facility: [facility] Address: [address] [place] [address] Performed By: #### L UPPL, [id number] ####[facility] LABCLIA [id number] [place] [address] [place] dRVVT factor substitution immediately after 1:2 addition of normal plasma Coag (PPP) [Time] 33.3 seconds Normal 32.0-45.7 [facility] Comment on above: Order Comment: Speci men Type: BLOOD SPECIMENOrdering Facility: [facility] Address: [address] [place] [address] Performed By: #### L UPPL, [id number] ####[facility] LABCLIA [id number] [place] [address] [place] dRVVT W excess hexagonal phase phospholipid actual/normal Coag (PPP) [Relative time] 43.6 seconds Normal 34.2-47.9 [facility] Comment on above: Order Comment: Speci men Type: BLOOD SPECIMENOrdering Facility: [facility] Address: [address] [place] [address] Performed By: #### L UPPL, [id number] ####[facility] LABCLIA [id number] [place] [address] [place] dRVVT/dRVVT.excess phospholipid Coag (PPP) [Ratio] 1.04 Normal <1.32 [facility] Comment on above: Order Comment: Speci men Type: BLOOD SPECIMENOrdering Facility: [facility] Address: [address] [place] [address] Performed By: #### L UPPL, [id number] ####[facility] LABCLIA [id number] [place] [address] [place] PLATELET NEUT 1.6 Seconds Normal <1.9 [facility] Comment on above: Order Comment: Speci men Type: BLOOD SPECIMENOrdering Facility: [facility] Address: [address] [place] [address] Result Comment: This test was developed, and its performance characteristics determined by the [facility] Department of Pathology and Laboratory Medicine. It has not been cleared or approved by the FDA. The [facility] Department of Pathology and Laboratory Medicine is regulated under CLIA as qualified to perform high-complexity testing. This test is used for clinical purposes. It should not be regarded as investigational or for research. Performed By: #### L UPPL, [id number] ####[facility] LABCLIA [id number] [place] [address] [place] Thrombin time Coag (PPP) [Time] <16.8 Normal <18.6 [facility] Comment on above: Order Comment: Speci men Type: BLOOD SPECIMENOrdering Facility: [facility] Address: [address] [place] [address] Performed By: #### L UPPL, [id number] ####[facility] LABCLIA [id number] [place] [address] [place] LUPUS PANEL INTERPon 05-2 024 Lupus anticoagulant (PPP) [Interp] Normal [facility] Comment on above: Order Comment: Speci men Type: BLOOD SPECIMENOrdering Facility: [facility] Address: [address] [place] [address] Result Comment: Norm al - see comment below.Laboratory testing was [...] neutralization and PNP. Performed By: #### L UPPL, [id number] ####[facility] LABCLIA [id number] [place] [address] [place] Pathologist name Reviewed by Annalise Howard MD [facility] Comment on above: Order Comment: Speci men Type: BLOOD SPECIMENOrdering Facility: [facility] Address: [address] [place] [address] Performed By: #### L UPPL, [id number] ####[facility] LABCLIA [id number] [place] [address] [place] MONOCLONAL PROT UR W/INTERPo n 06-16-2024 STAFF REVIEW (RUST) Reviewed by Robert Stout MD, Ph.D ([id number]) Normal [facility] Comment on above: Order Comment: Speci men Type: URINE SPECIMENOrdering Facility: [facility] Address: [address] [place] [address] Performed By: #### U RMPA ####[facility] LABIA [id number] [place] [address] [place] UMPA RESULT No M protein is identified. Normal No M protein is identified. [facility] Comment on above: Order Comment: Speci men Type: URINE SPECIMENOrdering Facility: [facility] Address: [address] [place] [address] Performed By: #### U RMPA ####[facility] [id number] [place] [address] [place] Magnesium SerPl-mCncon 06-16 Magnesium [Mass/Vol] 2.2 mg/dL Normal 1.7-2.3 [facility] Comment on above: Order Comment: Speci men Type: BLOOD SPECIMENOrdering Facility: [facility] Address: [address] [place] [address] Performed By: #### 1 9123-9 ####[facility] [id number] [place] [address] [place] PROTEIN ELECTROPHORESIS SERU M (P)on 06-16-2024 Albumin [Mass/Vol] 4.92 g/dL Normal 3.43-5.41 [facility] Comment on above: Order Comment: Speci men Type: BLOOD SPECIMENOrdering Facility: [facility] Address: [address] [place] [address] Performed By: #### L [id number] ####[facility] [id number] [place] [address] [place] Alpha 1 globulin Elph [Mass/Vol] 0.26 g/dL Normal 0.18-0.43 [facility] Comment on above: Order Comment: Speci men Type: BLOOD SPECIMENOrdering Facility: [facility] Address: [address] [place] [address] Performed By: #### L [id number] ####[facility] [id number] [place] [address] [place] Alpha 2 globulin Elph [Mass/Vol] 0.64 g/dL Normal 0.42-0.98 [facility] Comment on above: Order Comment: Speci men Type: BLOOD SPECIMENOrdering Facility: [facility] Address: [address] [place] [address] Performed By: #### L [id number] ####[facility] [id number] [place] [address] [place] Beta globulin Elph [Mass/Vol] 0.79 g/dL Normal 0.61-1.17 [facility] Comment on above: Order Comment: Speci men Type: BLOOD SPECIMENOrdering Facility: [facility] Address: [address] [place] [address] Performed By: #### L [id number] ####[facility] [id number] [place] [address] [place] Gamma globulin Elph [Mass/Vol] 0.89 g/dL Normal 0.53-1.51 [facility] Comment on above: Order Comment: Speci men Type: BLOOD SPECIMENOrdering Facility: [facility] Address: [address] [place] [address] Performed By: #### L [id number] ####[facility] [id number] [place] [address] [place] M-PROTEIN LOCATION Normal [facility] Comment on above: Order Comment: Speci men Type: BLOOD SPECIMENOrdering Facility: [facility] Address: [address] [place] [address] Result Comment: Not Applicable. Performed By: #### L [id number] ####[facility] [id number] [place] [address] [place] Protein Fractions [Interp] No definitive M protein is identified on protein electrophoresis. Normal No definitive M protein is identified on protein electrophoresi s. [facility] Comment on above: Order Comment: Speci men Type: BLOOD SPECIMENOrdering Facility: [facility] Address: [address] [place] [address] Performed By: #### L [id number] ####[facility] [id number] [address] [place] Protein.monoclonal Elph [Mass/Vol] 0.00 g/dL Normal <=0.00 [facility] Comment on above: Order Comment: Speci men Type: BLOOD SPECIMENOrdering Facility: [facility] Address: [address] [place] [address] Performed By: #### L [id number] ####[facility] [id number] [place] [address] [place] SPE STAFF REVIEW Reviewed by Robert Stout MD, Ph.D ([id number]) Normal [facility] Comment on above: Order Comment: Speci men Type: BLOOD SPECIMENOrdering Facility: [facility] Address: [address] [place] [address] Performed By: #### L [id number] ####[facility] [id number] [place] [address] [place] PT panel Coag (PPP)on 2023 INR Coag (PPP) [Relative time] 1.0 {INR} Normal 0.9-1.3 [facility] Comment on above: Order Comment: Speci men Type: BLOOD SPECIMENOrdering Facility: [facility] Address: [address] [place] [address] Result Comment: Angelica min K Antagonist (VKA) Therapeutic Range: INR 2 to 3 (Target INR of 2.5)Note: For patients treated with VKA drugs, such as warfarin, the [employer] 2012 Guideline recommends [...] 3).Maria M GH, et al. Chest 2012, 141:7S-47SCasper MEREDITH, et al. [facility] 2017, 70: 252-289Frozen Plasma Aliquot Performed By: #### 1 4979-9, 57968-1 ####[facility] [id number] [place] [address] [place] PT Coag (PPP) [Time] 10.7 s Normal 9.7-13.0 [facility] Comment on above: Order Comment: Speci men Type: BLOOD SPECIMENOrdering Facility: [facility] Address: [address] [place] [address] Performed By: #### 1 4979-9, 24099-0 ####[facility] [id number] [place] [address] [place] Prot SerPl-mCncon 06-16-2024 Protein [Mass/Vol] 7.5 g/dL Normal 6.3-8.0 [facility] Comment on above: Order Comment: Speci men Type: BLOOD SPECIMENOrdering Facility: [facility] Address: [address] [place] [address] Performed By: #### 2 284-8, 2885-2 ####[facility] [id number] [place] [address] [place] Prot/Creat Uron 06-16-2024 Protein/Creatinine (U) [Mass ratio] 0.09 mg/mg Normal <0.15 [facility] Comment on above: Order Comment: Speci men Type: URINE SPECIMENOrdering Facility: [facility] Address: [address] [place] [address] Result Comment: Adul t Proteinuria Categories:<0.15 mg/mg is considered normal to mildly increased0.15 - 0.50 mg/mg is considered moderately increased>0.50 mg/mg is considered severely increasedKDIGO. (2013). KDIGO 2012 Clinical Practice Guideline for the Evaluation and Management of Chronic Kidney Disease. Official Journal of the International Society of Nephrology, 3(1), 1-150. Performed By: #### 2 890-2 ####[facility] [id number] [place] [address] [place] Protein/Creatinine (U) [Mass ratio]on 06-16-2024 Creatinine (U) [Mass/Vol] 85.0 mg/dL Normal 20.0-300.0 [facility] Comment on above: Order Comment: Speci men Type: URINE SPECIMENOrdering Facility: [facility] Address: [address] [place] [address] Performed By: #### 2 890-2 ####[facility] [id number] [place] [address] [place] Protein (U) [Mass/Vol] 8 mg/dL Normal 0-20 [facility] Comment on above: Order Comment: Speci men Type: URINE SPECIMENOrdering Facility: [facility] Address: [address] [place] [address] Performed By: #### 2 890-2 ####[facility] [id number] [place] [address] [place] Rheumatoid fact SerPl-aCncon 06-16-2024 Rheumatoid factor Qn [IU]/mL Normal <16 [facility] Comment on above: Order Comment: Speci men Type: BLOOD SPECIMENOrdering Facility: [facility] Address: [address] [place] [address] Performed By: #### 2 276-4, 63389-0 ####[facility] [id number] [place] [address] [place] Ribonucleoprotein extractabl e nuclear Ab Qn (S)on 06-16-2024 ANTI-BEER MAKER QUAL Negative Normal Negative [facility] Comment on above: Order Comment: Speci men Type: BLOOD SPECIMENOrdering Facility: [facility] Address: [address] [place] [address] Performed By: #### 5 1775-5, 13761-4, 69332-1, 29340-0, 76626-8, 45450-6, 57217-2, 46185-9 ####[facility] [id number] [place] [address] [place] RIBOSOMAL BEER MAKER QUAL Negative Normal Negative [facility] Comment on above: Order Comment: Speci men Type: BLOOD SPECIMENOrdering Facility: [facility] Address: [address] [place] [address] Result Comment: Anti -Ribosomal RNA (Ribosomal P) antibody is used as an aid in diagnosis of systemic autoimmune diseases especially systemic lupus erythematosus and mixed connective tissue disease. Cross-reactivity with Anti-mitchell antibody is not uncommon. Clinical correlation is required.Test Methodology: Multiplex flow immunoassay. Performed By: #### 5 1775-5, 90074-3, 96598-8, 40074-7, 94701-3, 34755-1, 08028-2, 65024-2 ####[facility] [id number] [place] [address] [place] SCL-70 extractable nuclear I gG IA Qn (S)on 06-16-2024 SCLERODERMA AB QUAL Negative Normal Negative [facility] Comment on above: Order Comment: Speci men Type: BLOOD SPECIMENOrdering Facility: [facility] Address: [address] [place] [address] Performed By: #### 5 1775-5, 99488-2, 82749-4, 43466-0, 78844-5, 80465-4, 11828-1, 57958-7 ####[facility] [id number] [place] [address] [place] SCLERODERMA IGG AB <0.2 Normal <1.0 [facility] Comment on above: Order Comment: Speci men Type: BLOOD SPECIMENOrdering Facility: [facility] Address: [address] [place] [address] Result Comment: Scl- 70/Scleroderma antibody test is used as an aid in diagnosis of systemic sclerosis especially the diffuse cutaneous form. A negative result cannot rule out systemic sclerosis. The final interpretation should consider clinical picture and other test results such as anti-centromere antibody. Test Methodology: Multiplex flow immunoassay. Performed By: #### 5 1775-5, 76059-1, 10867-9, 38667-7, 84300-5, 14512-1, 52400-1, 52477-2 ####[facility] [id number] [place] [address] [place] Sjogrens syndrome-A extracta ble nuclear Ab Qn (S)on 06-16-2024 SSA ANTIBODY QUAL Negative Normal Negative [facility] Comment on above: Order Comment: Speci men Type: BLOOD SPECIMENOrdering Facility: [facility] Address: [address] [place] [address] Performed By: #### 5 1775-5, 02769-0, 43003-1, 10203-3, 68517-1, 57201-9, 55616-6, 13652-2 ####[facility] [id number] [place] [address] [place] Sjogrens syndrome-B extracta ble nuclear Ab Qn (S)on 06-16-2024 SSB ANTIBODY QUAL Negative Normal Negative [facility] Comment on above: Order Comment: Speci men Type: BLOOD SPECIMENOrdering Facility: [facility] Address: [address] [place] [address] Performed By: #### 5 1775-5, 68795-6, 80869-7, 51824-0, 41944-5, 75789-0, 18151-0, 86968-1 ####[facility] [id number] [place] [id number] [place] Mitchell extractable nuclear Ig G Qn (S)on 06-16-2024 SM ANTIBODY QUAL Negative Normal Negative [facility] Comment on above: Order Comment: Speci men Type: BLOOD SPECIMENOrdering Facility: [facility] Address: [address] [place] [address] Result Comment: Anti -Sm (Mitchell) antibody is used as an aid in diagnosis of systemic lupus erythematosus and its presence is associated with renal disease. A negative result cannot rule out systemic lupus erythematosus. Clinical correlation is required.Test Methodology: Multiplex flow immunoassay. Performed By: #### 5 1775-5, 72790-8, 47685-9, 54633-1, 68870-8, 49899-9, 37723-0, 31924-8 ####[facility] [id number] [place] [address] [place] Urinalysis complete panel (U )on 06-16-2024 Bacteria LM.HPF (Urine sed) [#/Area] Negative Normal Negative [facility] Comment on above: Order Comment: Speci men Type: URINE SPECIMENOrdering Facility: [facility] Address: [address] [place] [address] Performed By: #### 2 4356-8 ####[facility] [id number] [place] [address] [place] Bilirubin Ql (U) Negative Normal Negative [facility] Comment on above: Order Comment: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 [place] [address] Leukocyte esterase Test strip Ql (U) Negative Normal Negative [facility] Comment on above: Order Comment: Speci men Type: URINE SPECIMEN [facility]ing Facility: [facility] Address: [address] [place] [address] Performed By: #### 2 4356-8 #### [facility] CLIA [id number] [address] [place] [address] [place] Nitrite Ql (U) Negative Normal Negative [facility] Comment on above: Order Comment: Speci men Type: URINE SPECIMEN Ordering Facility: [facility] Address: [address] [place] [address] Performed By: #### 2 4356-8 #### [facility] CLIA [id number] [address] [place] [address] [place] pH (U) 7.0 [pH] Normal 5.0-8.0 [facility] Comment on above: Order Comment: Speci men Type: URINE SPECIMEN Ordering Facility: [facility] Address: [address] [place] [address] Performed By: #### 2 4356-8 #### [facility] CLIA [id number] [address] [place] [address] [place] Protein (U) [Mass/Vol] Negative Normal Negative [facility] Comment on above: Order Comment: Speci men Type: URINE SPECIMEN Ordering Facility: [facility] Address: [address] [place] [place] [address] Performed By: #### 2 4356-8 #### [facility] CLIA [id number] [address] [place] [address] [place] RBC LM.HPF (Urine sed) [#/Area] 0-3 /HPF Normal 0-3 /HPF [facility] Comment on above: Order Comment: Speci men Type: URINE SPECIMEN Ordering Facility: [facility] Address: [address] [place] [address] Performed By: #### 2 4356-8 #### [facility] CLIA [id number] [address] [place] [address] [place] Specific gravity (U) [Rel density] <1.005 Low 1.005-1.030 [facility] Comment on above: Order Comment: Speci men Type: URINE SPECIMEN Ordering Facility: [facility] Address: [address] [place] [address] Performed By: #### 2 4356-8 #### [facility] CLIA [id number] [address] [place] [address] Urobilinogen Ql (U) Negative Normal Negative [facility] Comment on above: Order Comment: Speci men Type: URINE SPECIMEN Ordering Facility: [facility] Address: [address] [place] [address] Performed By: #### 2 4356-8 #### [facility] CLIA [id number] [address] [place] [address] [place] WBC LM.HPF (Urine sed) [#/Area] 0-5 /HPF Normal 0-5 /HPF [facility] Comment on above: Order Comment: Speci men Type: URINE SPECIMEN Ordering Facility: [facility] Address: [address] [place] [address] Performed By: #### 2 4356-8 #### [facility] CLIA [id number] [address] [place] [address] [place] URINE OB DIP B/OOrdered By: Mayra Barr on 11-20-2023 Glucose Ql (U) Negative Neg mg/dL [facility] Protein.monoclonal (U) [Mass/Vol] Negative Neg mg/dL [facility] Examination level ultrasound on 11-12-2023 [facility] Radiology Study observation (narrative) [facility] URINE OB DIP B/Oon Glucose Ql (U) Negative Neg mg/dL [facility] Protein.monoclonal (U) [Mass/Vol] trace Neg mg/dL [facility] CNPNon 11-05-2023 CNPN Telephone (OBFVLD) ----- DORY ANDREWS ([id number]) 2 F Date Time Provider Department 11/05/23 MPOWER FV OB LANDD OBFVLD During your visit today, we recorded the following information about you: Allergies As of Date: 11/05/2023 Noted Allergy Reaction GREEN DYE 02/23/2012 4 - Hives CONTACT METAL AGENT 06/01/2023 14 - Other: See Comments Comments: Cysts from earrings. Date Reviewed: 11/02/2023 Reviewed by: Shruthi Estrada MD - Fully Assessed Reason for Visit: Outreach Director - Other [[id number]] Cmt: M-Power Scheduling, LMTCB Prescriptions as of [...] and vomiting in [O21.9] 05/14/2023 History of depression/ansiety/Bipola r [Z86.59] 05/14/2023 History of substance abuse (HCC) [...] Status:Closed by EVELYN REMY on 11/05/23 Normal [facility] URINE OB DIP B/Oon Glucose Ql (U) Negative Neg mg/dL [facility] Interpretation and review of laboratory results Normal [facility] Protein.monoclonal (U) [Mass/Vol] Negative Neg mg/dL [facility] CNPNon 10-30-2023 CNPN Telephone (OBFVLD) ----- DORY ANDREWS ([id number]) 2 F Date Time Provider Department 10/30/23 MPOWER FV OB LANDD OBFVLD During your visit today, we recorded the following information about you: Allergies As of Date: 10/30/2023 Noted Allergy Reaction GREEN DYE 02/23/2012 4 - Hives CONTACT METAL AGENT 06/01/2023 14 - Other: See Comments Comments: Cysts from earrings. Date Reviewed: 10/19/2023 Reviewed by: Lesli Solano APRN.ASSISTANT PROFESSOR OF SPANISH - Fully Assessed Reason for Visit: Outreach Director - Other [5068] Cmt: M-Power Scheduling, LMTCB Prescriptions as of [...] and vomiting in [O21.9] 05/14/2023 History of depression/ansiety/Bipola r [Z86.59] 05/14/2023 History of substance abuse (HCC) [...] Status:Closed by EVELYN REMY on 10/30/23 Normal [facility] Examination level ultrasound on 10-19-2023 [facility] CNPNon 10-16-2023 CNPN Telephone (OBFVLD) ----- DORY ANDREWS ([id number]) 2 F Date Time Provider Department 10/16/23 [facility] During your visit today, we recorded the following information about you: Allergies As of Date: 10/16/2023 Noted Allergy Reaction GREEN DYE 02/23/2012 4 - Hives CONTACT METAL AGENT 06/01/2023 14 - Other: See Comments Comments: Cysts from earrings. Date Reviewed: 10/15/2023 Reviewed by: Martha Nicole LPN - Fully Assessed Reason for Visit: Outreach Director - Other [0676] Cmt: M-Power Scheduling, LMTCB Prescriptions as of [...] and vomiting in [O21.9] 05/14/2023 History of depression/ansiety/Bipola r [Z86.59] 05/14/2023 History of substance abuse (HCC) [...] Encounter Status:Closed by EVELYN REMY on 10/16/23 [facility] COVID & INFLUENZA A/B & RSV NAAT, ROUTINEon 10-16-2023 FLUAV RNA YAYO+probe Ql (Unsp spec) Not detected Not Detected [facility] FLUBV RNA YAYO+probe Ql (Unsp spec) Not detected Not Detected [facility] RSV A RNA YAYO+probe Ql (Unsp spec) Not detected Not Detected [facility] SARS-CoV-2 (COVID-19) RNA YAYO+probe Ql (Resp) Not detected See comment [facility] Basic metabolic 2000 panelon 09-10-2023 Anion gap [Moles/Vol] 13 mmol/L 9 - 18 mmol/L [facility] Calcium [Mass/Vol] 9.5 mg/dL 8.5 - 10. 2 mg/dL [facility] Chloride [Moles/Vol] 107 mmol/L High 97 - 10 5 mmol/L [facility] CO2 [Moles/Vol] 19 mmol/L Low 22 - 30 mmol/L [facility] Creatinine [Mass/Vol] 0.45 mg/dL Low 0.58 - 0.96 mg/dL [facility] Estimated Glomerular Filtration Rate 141 mL/min/1.73m >=60 mL/min/1.73m [facility] Glucose [Mass/Vol] 95 mg/dL 74 - 99 mg/dL [facility] Potassium [Moles/Vol] 3.9 mmol/L 3.7 - 5.1 mmol/L [facility] Sodium [Moles/Vol] 139 mmol/L 136 - 144 mmol/L [facility] Urea nitrogen [Mass/Vol] 6 mg/dL Low 7 - 21 mg/dL [facility] Hepatic function 2000 panelo n 09-10-2023 Albumin [Mass/Vol] 3.6 g/dL Low 3.9 - 4.9 g/dL [facility] ALP [Catalytic activity/Vol] 117 U/L 34 - 123 U/L [facility] ALT [Catalytic activity/Vol] 11 U/L 7 - 38 U/L [facility] AST [Catalytic activity/Vol] 16 U/L 13 - 35 U/L [facility] Bilirubin [Mass/Vol] Low 0.2 - 1 .3 mg/dL [facility] Bilirubin.conjugated [Mass/Vol] <0.2 mg/dL [facility] Protein [Mass/Vol] 6.3 g/dL 6.3 - 8.0 g/dL [facility] URINE OB DIP B/Oon 4 Glucose Ql (U) Negative Neg mg/dL [facility] Protein.monoclonal (U) [Mass/Vol] Negative Neg mg/dL [facility] URINE OB DIP B/Oon 4 Glucose Ql (U) Negative Neg mg/dL [facility] Protein.monoclonal (U) [Mass/Vol] Negative Neg mg/dL [facility] NUCHAL TRANSLUCENCY WHIon [facility] TRICHOMONAS VAGINALIS NAATon 05-20-2023 T. vaginalis DNA YAYO+probe Ql (Unsp spec) Negative Negative for Trichomonas vaginalis by amplification [facility] HCG QUAL UR B/Oon 04-18-2023 status Positive neg - pos [facility] Quality Check Yes [facility] UA DIP, URINE (POC)on 2022 BILIRUBIN UA (POCT) Negative Negative [facility] CLARITY UA (POCT) Clear [facility] COLOR UA (POCT) Yellow [facility] GLUCOSE UA (POCT) Negative Negative mg/dL [facility] HEMOGLOBIN/BLOOD UA (POCT) Negative Negative [facility] KETONE UA (POCT) Negative Negative mg/dL [facility] LEUKOCYTES UA (POCT) Negative Negative [facility] NITRITE UA (POCT) Negative Negative [facility] PH UA (POCT) 7.5 4.5 - 8.0 [facility] Protein Ql (U) Negative Negative mg/dL [facility] SPECIFIC GRAVITY UA (POCT) 1.015 1.005 - 1.030 [facility] UROBILINOGEN UA (POCT) 0.2 E.U./dL Normal E.U./dL [facility] XR LUMBAR GENERAL 3V AP/LAT/ L5-S1on 12-10-2022 [facility] XR Lumbar spine 3 Viewson IMPRESSION: Preservation of vertebral body height and disc space height. Clerk Rating: JOSE Transcribe Date/Time: Dec 10 2022 1:32P Dictated by : NOAH STEPHEN MD This examination was interpreted and the report reviewed and electronically signed by: NOAH STEPHEN MD on Dec 10 2022 1:33PM [facility] DIVISION OF RADIOLOGY * * *Final Report* [...] spaces. No spondylolisthesis. DIVISION OF RADIOLOGY Provider, Bharati ziegler [place] - 12/10/2022 * * *Final Report* * [...] vertebral body height and disc space height. Clerk Rating: JOSE Transcribe Date/Time: Dec 10 2022 1:32P Dictated by : NOAH STEPHEN MD This examination was interpreted and the report reviewed and electronically signed by: NOAH STEPHEN MD on Dec 10 2022 1:33PM EST [facility] Radiology Study observation (narrative) [facility] XR Lumbar spine 3 ViewsOrder ed By: Cccharles Provider on 12-10-2022 [facility] No Panel Informationon 11-13 [facility] C-REACTIVE PROTEIN (CRP)on 0 11-07-2022 CRP [Mass/Vol] <0.9 mg/dL [facility] CBC W Auto Differential pane l (Bld)on 11-07-2022 Basophils (Bld) [#/Vol] 0.03 10*3/uL <0.11 k/uL [facility] Basophils/100 WBC (Bld) 0.5 % [facility] Differential cell count method Nom (Bld) Auto [facility] Eosinophils (Bld) [#/Vol] 0.08 10*3/uL <0.46 k/uL [facility] Eosinophils/100 WBC (Bld) 1.3 % [facility] Erythrocyte distribution width (RBC) [Ratio] 12.3 % 11.5 - 15.0 % [facility] Hematocrit (Bld) [Volume fraction] 42.0 % 36.0 - 46.0 % [facility] Hemoglobin (Bld) [Mass/Vol] 13.8 g/dL 11.5 - 15.5 g/dL [facility] Immature granulocytes (Bld) [#/Vol] <0.10 k/uL [facility] Immature granulocytes/100 WBC (Bld) 0.3 % [facility] Lymphocytes (Bld) [#/Vol] 1.65 10*3/uL 1.00 - 4.00 k/uL [facility] Lymphocytes/100 WBC (Bld) 27.6 % [facility] MCH (RBC) [Entitic mass] 32.0 pg 26.0 - 34.0 pg [facility] MCHC (RBC) [Mass/Vol] 32.9 g/dL 30.5 - 36.0 g/dL [facility] MCV (RBC) [Entitic vol] 97.4 fL 80.0 - 100.0 fL [facility] Monocytes (Bld) [#/Vol] 0.52 10*3/uL <0.87 k/uL [facility] Monocytes/100 WBC (Bld) 8.7 % [facility] Neutrophils (Bld) [#/Vol] 3.68 10*3/uL 1.45 - 7.50 k/uL [facility] Neutrophils/100 WBC (Bld) 61.6 % [facility] Nucleated RBC (Bld) [#/Vol] <0.01 k/uL [facility] Nucleated RBC/100 WBC (Bld) [Ratio] 0.0 /100 WBC [facility] Platelet mean volume (Bld) [Entitic vol] 10.4 fL 9.0 - 12.7 fL [facility] Platelets (Bld) [#/Vol] 210 10*3/uL 150 - 400 k/uL [facility] RBC (Bld) [#/Vol] 4.31 10*6/uL 3.90 - 5.2 0 m/uL [facility] WBC (Bld) [#/Vol] 5.98 10*3/uL 3.70 - 11. 00 k/uL [facility] Comprehensive metabolic 2000 panelon 11-07-2022 Albumin [Mass/Vol] 4.5 g/dL 3.9 - 4.9 g/dL [facility] ALP [Catalytic activity/Vol] 75 U/L 34 - 123 U/L [facility] ALT [Catalytic activity/Vol] 88 U/L High 7 - 38 U/L [facility] Anion gap [Moles/Vol] 9 mmol/L 9 - 18 mmol/L [facility] AST [Catalytic activity/Vol] 51 U/L High 13 - 35 U/L [facility] Bilirubin [Mass/Vol] 0.3 mg/dL 0.2 - 1 .3 mg/dL [facility] Calcium [Mass/Vol] 9.6 mg/dL 8.5 - 10. 2 mg/dL [facility] Chloride [Moles/Vol] 104 mmol/L 97 - 10 5 mmol/L [facility] CO2 [Moles/Vol] 25 mmol/L 22 - 30 mmol/L [facility] Creatinine [Mass/Vol] 0.60 mg/dL 0.58 - 0.96 mg/dL [facility] Estimated Glomerular Filtration Rate 132 mL/min/1.73m >=60 mL/min/1.73m [facility] Glucose [Mass/Vol] 84 mg/dL 74 - 99 mg/dL [facility] Potassium [Moles/Vol] 4.4 mmol/L 3.7 - 5.1 mmol/L [facility] Protein [Mass/Vol] 6.9 g/dL 6.3 - 8.0 g/dL [facility] Sodium [Moles/Vol] 138 mmol/L 136 - 144 mmol/L [facility] Urea nitrogen [Mass/Vol] 5 mg/dL Low 7 - 21 mg/dL [facility] No Panel Informationon 11-07 [facility] TSH BLDon 11-07-2022 TSH Qn 0.914 m[IU]/L 0.510 - 4.300 mIU/L [facility] No Panel Informationon 06-24 [facility] [place] 01-21-2022 Lamotrigine Lvl <0.3 Low 1.0-13.0 [facility] ([place]) Comment on above: Result Comment: This test was developed and its performance characteristics determined by [facility]'s [facility] Pathology and Laboratory Medicine [place] (-[facility]). It has not been cleared or approved by the FDA. -[facility] is regulated under CLIA as qualified to perform high-complexity testing. This test is used for clinical purposes. It should not be regarded as investigational or for research. Performed By: [facility] [employer] [address] [place] [address] Supervisor Packing Room: Jag Moreau III, M.D. IA#: [id number] Performed By: #### A DIFF, CMP, CBC, ERDS, GFR, ANEU #### [address] [address] .Auto Diffon 01-18-2022 Basophil, Absolute 0.0 10 3/mcL Normal 0.0-0.2 [facility] ([place]) Comment on above: Performed By: #### A DIFF, CMP, CBC, ERDS, GFR, ANEU #### [address] [address] Basophils/100 WBC (Bld) 0.6 % Normal 0.0-2.5 [facility] ([place] Comment on above: Performed By: #### A DIFF, CMP, CBC, ERDS, GFR, ANEU #### [address] [address] Eosinophil, Absolute 0.1 10 3/mcL Normal 0.0-0.4 [facility] ([place]) Comment on above: Performed By: #### A DIFF, CMP, CBC, ERDS, GFR, ANEU #### [address] [address] Eosinophils/100 WBC (Bld) 0.7 % Normal 0.0-7.0 [facility] ([place] Comment on above: Performed By: #### A DIFF, CMP, CBC, ERDS, GFR, ANEU #### [address] [address] Lymphocyte, Absolute 2.1 10 3/mcL Normal 0.8-3.9 [facility] ([place]) Comment on above: Performed By: #### A DIFF, CMP, CBC, ERDS, GFR, ANEU #### [address] [address] Lymphocytes/100 WBC (Bld) 27.4 % Normal 10.0-50.0 [facility] ([place] Comment on above: Performed By: #### A DIFF, CMP, CBC, ERDS, GFR, ANEU #### [address] [address] Monocyte, Absolute 0.7 10 3/mcL Normal 0.2-1.0 [facility] ([place]) Comment on above: Performed By: #### A DIFF, CMP, CBC, ERDS, GFR, ANEU #### [address] [address] Monocytes/100 WBC (Bld) 9.5 % Normal 1.7-13.0 [facility] ([place] Comment on above: Performed By: #### A DIFF, CMP, CBC, ERDS, GFR, ANEU #### [address] [address] Neutrophils/100 WBC (Bld) 61.8 % Normal 37.0-80.0 [facility] ([place] Comment on above: Performed By: #### A DIFF, CMP, CBC, ERDS, GFR, ANEU #### [address] [address] .GFRon 01-18-2022 GFR Non- 86 ml/min/1.73sqm Normal [facility] ([place] Comment on above: Result Comment: GFR Population [...] DIFF, CMP, CBC, ERDS, GFR, ANEU #### [address] [address] GFR 105 ml/min/1.73sqm Normal [facility] ([place] Comment on above: Result Comment: GFR Population [...] DIFF, CMP, CBC, ERDS, GFR, ANEU #### [address] [address] .MDWon 01-18-2022 Monocyte Distribution Width 21.63 High 0.00-20.00 [facility] ([place] Comment on above: Result Comment: For adults in ED, MDW>20.0 may be associated with a higher risk of sepsis during the first 12hrs of hospital admission Performed By: #### A DIFF, CMP, CBC, ERDS, GFR, ANEU #### [place] [address] .NEUABSon 01-18-2022 Neutrophil, Absolute 4.8 10 3/mcL Normal 2.9-6.2 [facility] ([place]) Comment on above: Performed By: #### A DIFF, CMP, CBC, ERDS, GFR, ANEU #### [place] [address] ACETAon 01-18-2022 Acetaminophen [Mass/Vol] 0.0 ug/mL Low 10.0-30.0 [facility] ([place] Comment on above: Performed By: #### A DIFF, CMP, CBC, ERDS, GFR, ANEU #### [place] [address] Tomás 01-18-2022 Ethanol Level 69 mg/dL High 0-3 [facility] ([place] Comment on above: Performed By: #### A DIFF, CMP, CBC, ERDS, GFR, ANEU #### [place] [address] Ethanol Level 121 mg/dL High 0-3 [facility] [place] Comment on above: Performed By: #### A LC #### [facility] [address] [place], [place] [address] Ethanol Level 230 mg/dL High 0-3 [facility] [place] Comment on above: Performed By: #### A DIFF, CMP, CBC, ERDS, GFR, ANEU #### [address] [address] BMPon 01-18-2022 BUN/Creatinine Ratio 11 ratio Normal 7-27 [facility] ([place]) Comment on above: Performed By: #### A DIFF, CMP, CBC, ERDS, GFR, ANEU #### [address] [address] Calcium [Mass/Vol] 8.4 mg/dL Normal 8.4-10.2 [facility] ([place]) Comment on above: Performed By: #### A DIFF, CMP, CBC, ERDS, GFR, ANEU #### [address] [address] Chloride [Moles/Vol] 110 mmol/L High 98-107 [facility] ([place] Comment on above: Performed By: #### A DIFF, CMP, CBC, ERDS, GFR, ANEU #### [address] [address] CO2 [Moles/Vol] 25 mmol/L Normal 22-29 [facility] ([place] Comment on above: Performed By: #### A DIFF, CMP, CBC, ERDS, GFR, ANEU #### [address] [address] Creatinine [Mass/Vol] 0.84 mg/dL Normal 0.55-1.02 [facility] ([place] Comment on above: Performed By: #### A DIFF, CMP, CBC, ERDS, GFR, ANEU #### [address] [address] Electrolyte Balance 9.0 mEq/L Normal 4.0-15.0 [facility] ([place]) Comment on above: Performed By: #### A DIFF, CMP, CBC, ERDS, GFR, ANEU #### [address] [address] Glucose [Mass/Vol] 111 mg/dL High 70-105 [facility] ([place] Comment on above: Performed By: #### A DIFF, CMP, CBC, ERDS, GFR, ANEU #### [place] [id number] Potassium [Moles/Vol] 3.9 mmol/L Normal 3.5-5.1 [facility] ([place] Comment on above: Performed By: #### A DIFF, CMP, CBC, ERDS, GFR, ANEU #### [place] [id number] Sodium [Moles/Vol] 144 mmol/L Normal 136-145 [facility] ([place] Comment on above: Performed By: #### A DIFF, CMP, CBC, ERDS, GFR, ANEU #### [place] [address] Urea nitrogen [Mass/Vol] 9 mg/dL Normal 7-18 [facility] ([place] Comment on above: Performed By: #### A DIFF, CMP, CBC, ERDS, GFR, ANEU #### [place] [id number] CBCon 01-18-2022 Erythrocyte distribution width (RBC) [Ratio] 13.2 % Normal 11.5-14.5 [facility] ([place] Comment on above: Performed By: #### A DIFF, CMP, CBC, ERDS, GFR, ANEU #### [place] [id number] Hematocrit (Bld) [Volume fraction] 42.4 % Normal 37.0-47.0 [facility] ([place] Comment on above: Performed By: #### A DIFF, CMP, CBC, ERDS, GFR, ANEU #### [place] [id number] Hgb 14.7 G/dL Normal 12.0-16.0 [facility] ([place] Comment on above: Performed By: #### A DIFF, CMP, CBC, ERDS, GFR, ANEU #### [place] [id number] MCH (RBC) [Entitic mass] 32.9 pg High 27.0-31.2 [facility] ([place] Comment on above: Performed By: #### A DIFF, CMP, CBC, ERDS, GFR, ANEU #### [place] [address] MCHC 34.5 G/dL Normal 33.0-37.0 [facility] ([place] Comment on above: Performed By: #### A DIFF, CMP, CBC, ERDS, GFR, ANEU #### [place] [address] MCV (RBC) [Entitic vol] 95.1 fL High 80.0-94.0 [facility] ([place] Comment on above: Performed By: #### A DIFF, CMP, CBC, ERDS, GFR, ANEU #### [place] [address] Platelet 266 10 3/mcL Normal 130-400 [facility] ([place] Comment on above: Performed By: #### A DIFF, CMP, CBC, ERDS, GFR, ANEU #### [place] [address] Platelet mean volume (Bld) [Entitic vol] 8.0 fL Normal 7.4-10.4 [facility] ([place] Comment on above: Performed By: #### A DIFF, CMP, CBC, ERDS, GFR, ANEU #### [place] [address] RBC 4.46 10 6/mcL Normal 4.20-5.40 [facility] ([place] Comment on above: Performed By: #### A DIFF, CMP, CBC, ERDS, GFR, ANEU #### [place] [address] WBC 7.8 10 3/mcL Normal 4.6-10.8 [facility] ([place] Comment on above: Performed By: #### A DIFF, CMP, CBC, ERDS, GFR, ANEU #### [place] [address] [id number] 01-18-2022 Date of Onset [id number] Invalid Interpretation Code [facility] [place] Comment on above: Performed By: #### A DIFF, CMP, CBC, ERDS, GFR, ANEU #### [place] [address] Employed in Healthcare No [facility] ([place] Comment on above: Performed By: #### A DIFF, CMP, CBC, ERDS, GFR, ANEU #### [place] [address] First Test Unknown [facility] ([place] Comment on above: Performed By: #### A DIFF, CMP, CBC, ERDS, GFR, ANEU #### [place] [address] Hospitalized Yes [facility] ([place] Comment on above: Performed By: #### A DIFF, CMP, CBC, ERDS, GFR, ANEU #### [place] [address] ICU Unknown [facility] ([place] Comment on above: Performed By: #### A DIFF, CMP, CBC, ERDS, GFR, ANEU #### [place] [address] Unknown [facility] ([place] Comment on above: Performed By: #### A DIFF, CMP, CBC, ERDS, GFR, ANEU #### [place] [address] Resides in Congregate Care Setting Unknown [facility] ([place] Comment on above: Performed By: #### A DIFF, CMP, CBC, ERDS, GFR, ANEU #### [place] [address] SARS-CoV-2 (COVID-19) RNA YAYO+probe Ql (Unsp spec) Negative Normal Negative [facility] ([place] Comment on above: Performed By: #### A DIFF, CMP, CBC, ERDS, GFR, ANEU #### [place] [address] SARS-CoV-2 (COVID-19) RNA YAYO+probe Ql (Unsp spec) Normal [facility] ([place] Comment on above: Result Comment: Nega tive [...] DIFF, CMP, CBC, ERDS, GFR, ANEU #### [place] [address] Symptomatic as Defined by [facility] No Normal [facility] [place] Comment on above: Performed By: #### A DIFF, CMP, CBC, ERDS, GFR, ANEU #### [place] [address] CT HEAD OR BRAIN W/O CONTRAS Ton [...] shift. No abnormal extra-axial fluid collection. The márquez-white differentiation is maintained without evidence of an [...] Date: 01/18/2022 2:17:32 AM Ordering Provider[facility] LABORATORYOrdered By: Michele Ovalles on 01-18-2022 Ethanol [...] TO INTENSIVE CARE UNIT FOR CONDITION OF INTEREST:FIND:PT:^PA TIENT:ORD: Unknown (01/18/22 1:06 AM) Invalid Interpretation [...] AO ADM SS EMPLOYED IN A HEALTHCARE SETTING:FIND:PT:^LUCY IENT:ORD: No (01/18/22 1:06 AM) Invalid Interpretation Code [...] ADM SS FIRST TEST FOR CONDITION OF INTEREST:FIND:PT:^BRODIE TIENT:ORD: Unknown (01/18/22 1:06 AM) Invalid Interpretation Code AO Auto Urine SS Glucose [Mass/Vol] 111 mg/dL Invalid Interpretation Code 70 - 105 mg/dL AO ADM SS HAS SYMPTOMS RELATED TO CONDITION OF INTEREST:FIND:PT:^BRODIE TIENT:ORD: No (01/18/22 1:06 AM) Invalid Interpretation [...] Workflow SS RESIDES IN A CONGREGATE CARE SETTING:FIND:PT:^PAT IENT:ORD: Unknown (7/9/22 1:06 AM) Invalid Interpretation Code AO Auto [...] Invalid Interpretation Code 70 - 110 mg/dL [facility] Work Phone: LABORATORYOrdered By: SYSTEM SYSTEM on 01-18-2022 GFR 105 ml/min/1.73sqm Invalid Interpretation Code AO Chemistry S GFR Non- 86 ml/min/1.73sqm Invalid Interpretation Code AO Chemistry S PREGUon 01-18-2022 HCG ( test) Ql (U) Negative Normal [facility] ([place] Comment on above: Performed By: #### U A, PREGU, TOXSC #### David [address] [address] test (u) int Not detected Invalid Interpretation Code [facility] [place] Comment on above: Performed By: #### U A, PREGU, TOXSC #### David [address] [address] SALon 01-18-2022 Salicylate Level 2.0 mg/dL Low 2.8-20.0 [facility] ([place] Comment on above: Performed By: #### A DIFF, CMP, CBC, ERDS, GFR, ANEU #### [address] [address] TOXSCon 01-18-2022 U Ampheta (AO) Negative [facility] ([place] Comment on above: Performed By: #### A DIFF, CMP, CBC, ERDS, GFR, ANEU #### [address] [address] U Lisa (AO) Negative [facility] ([place] Comment on above: Performed By: #### A DIFF, CMP, CBC, ERDS, GFR, ANEU #### [address] [address] U Lidia (AO) Negative [facility] ([place] Comment on above: Performed By: #### A DIFF, CMP, CBC, ERDS, GFR, ANEU #### [address] [address] U Cannab (AO) Negative [facility] ([place] Comment on above: Performed By: #### A DIFF, CMP, CBC, ERDS, GFR, ANEU #### [address] [address] U Cocaine (AO) Negative [facility] ([place] Comment on above: Performed By: #### A DIFF, CMP, CBC, ERDS, GFR, ANEU #### [address] [address] U Methadone (AO) Negative Normal [facility] [place] Comment on above: Performed By: #### A DIFF, CMP, CBC, ERDS, GFR, ANEU #### [address] [address] U PCP (AO) Negative Normal [facility] [facility] ([place] Comment on above: Performed By: #### A DIFF, CMP, CBC, ERDS, GFR, ANEU #### [address] [address] U TCA (AO) Negative Normal [facility] ([place]) Comment on above: Performed By: #### A DIFF, CMP, CBC, ERDS, GFR, ANEU #### [address] [address] Urine Opiates (AO) Negative Normal [facility] ([place]) Comment on above: Performed By: #### A DIFF, CMP, CBC, ERDS, GFR, ANEU #### [address] [address] TSHon 01-18-2022 TSH Qn 1.33 m[IU]/L Normal 0.36-3.74 [facility] ([place]) Comment on above: Performed By: #### A DIFF, CMP, CBC, ERDS, GFR, ANEU #### [address] [address] UAon 01-18-2022 Color (U) Yellow Normal [facility] ([place] Comment on above: Performed By: #### U A, PREGU, TOXSC #### [address] [address] Glucose (U) [Mass/Vol] Negative Normal Negative [facility] ([place]) Comment on above: Performed By: #### U A, PREGU, TOXSC #### [address] [address] Ketones Ql (U) Negative Normal Negative [facility] ([place] Comment on above: Performed By: #### U A, PREGU, TOXSC #### [address] [address] UA Appear Clear Normal Clear [facility] ([place] Comment on above: Performed By: #### U A, PREGU, TOXSC #### [place] [address] UA Blood Trace Abnormal Negative [facility] ([place] Comment on above: Performed By: #### U A, PREGU, TOXSC #### [place] [address] UA Leuk Est Negative Normal Negative [facility] ([place] Comment on above: Performed By: #### U A, PREGU, TOXSC #### [place] [address] UA Nitrite Negative Normal Negative [facility] ([place] Comment on above: Performed By: #### U A, PREGU, TOXSC #### [place] [address] UA pH 5.5 Normal 5.0 - 8.0 [facility] ([place]) Comment on above: Performed By: #### U A, PREGU, TOXSC #### [place] [address] UA Protein Negative Normal Negative [facility] ([place] Comment on above: Performed By: #### U A, PREGU, TOXSC #### [place] [address] UA Spec Grav 1.010 Abnormal 1.015-1.025 [facility] ([place]) Comment on above: Performed By: #### U A, PREGU, TOXSC #### [place] [address] UA Specimen Type Not Given Normal [facility] ([place] Comment on above: Performed By: #### U A, PREGU, TOXSC #### [place] [address] UA Urobilinogen 0.2 E.U./dL Normal 0.2-1.0 [facility] ([place]) Comment on above: Performed By: #### U A, PREGU, TOXSC #### [place] [address] [place], [place] [address] Urobilinogen (U) [Mass/Vol] Negative Normal Negative [facility] ([place] Comment on above: Performed By: #### U A, PREGU, TOXSC #### [place] [address] [place], [place] [address] VBGAOon 01-18-2022 BE Venous -3 mmol/L Low -2-3 [facility] ([place] Comment on above: Performed By: #### A DIFF, CMP, CBC, ERDS, GFR, ANEU #### [address] [address] CO2 [Moles/Vol] 43 mmol/L Normal 24.0-29.0 [facility] ([place]) Comment on above: Performed By: #### A DIFF, CMP, CBC, ERDS, GFR, ANEU #### [address] [address] HCO3 (Bld) [Moles/Vol] 23.4 mmol/L Normal 23.0-28.0 [facility] ([place]) Comment on above: Performed By: #### A DIFF, CMP, CBC, ERDS, GFR, ANEU #### [place] [address] pCO2 Fazal 49 mmHg Normal 41-51 [facility] ([place]) Comment on above: Performed By: #### A DIFF, CMP, CBC, ERDS, GFR, ANEU #### [place] [address] pH Venous 7.29 Low 7.31-7.41 [facility] ([place]) Comment on above: Performed By: #### A DIFF, CMP, CBC, ERDS, GFR, ANEU #### [place] [address] pO2 Fazal 27 mmHg Normal [facility] ([place]) Comment on above: Performed By: #### A DIFF, CMP, CBC, ERDS, GFR, ANEU #### [place] [address] XR CHEST 1 VIEWon 01-18-2022 XR CHEST [...] 01/18/2022 2:18:24 AM Ordering Provider: SHAILA FLOYD [facility] ([place]) CBC W Auto Differential pane l (Bld)on 01-03-2022 Abs Immature Gran <0.03 <0.10 k/uL [facility] Basophils (Bld) [#/Vol] 0.04 10*3/uL <0.11 k/uL [facility] Basophils/100 WBC (Bld) 0.4 % [facility] Differential cell count method Nom (Bld) Auto [facility] Eosinophils (Bld) [#/Vol] 0.08 10*3/uL <0.46 k/uL [facility] Eosinophils/100 WBC (Bld) 0.9 % [facility] Erythrocyte distribution width (RBC) [Ratio] 12.0 % 11.5 - 15.0 % [facility] Hematocrit (Bld) [Volume fraction] 44.0 % 36.0 - 46.0 % [facility] Hemoglobin (Bld) [Mass/Vol] 15.0 g/dL 11.5 - 15.5 g/dL [facility] Immature Gran % 0.2 % [facility] Lymphocytes (Bld) [#/Vol] 1.95 10*3/uL 1.00 - 4.00 k/uL [facility] Lymphocytes/100 WBC (Bld) 21.8 % [facility] MCH (RBC) [Entitic mass] 32.5 pg 26.0 - 34.0 pg [facility] MCHC (RBC) [Mass/Vol] 34.1 g/dL 30.5 - 36.0 g/dL [facility] MCV (RBC) [Entitic vol] 95.2 fL 80.0 - 100.0 fL [facility] Monocytes (Bld) [#/Vol] 0.59 10*3/uL <0.87 k/uL [facility] Monocytes/100 WBC (Bld) 6.6 % [facility] Neutrophils (Bld) [#/Vol] 6.28 10*3/uL 1.45 - 7.50 k/uL [facility] Neutrophils/100 WBC (Bld) 70.1 % [facility] Nucleated RBC (Bld) [#/Vol] 10*3/uL <0.01 k/uL [facility] Nucleated RBC/100 WBC (Bld) [Ratio] 0.0 /100 WBC [facility] Platelet mean volume (Bld) [Entitic vol] 10.1 fL 9.0 - 12.7 fL [facility] Platelets (Bld) [#/Vol] 258 10*3/uL 150 - 400 k/uL [facility] RBC (Bld) [#/Vol] 4.62 10*6/uL 3.90 - 5.2 0 m/uL [facility] WBC (Bld) [#/Vol] 8.96 10*3/uL 3.70 - 11. 00 k/uL [facility] BASIC METABOLIC PANELon 05- Anion gap [Moles/Vol] 9 mmol/L Low 10 - 20 [facility] Comment on above: Performed By: #### G TRINY #### [address] [address] Calcium [Mass/Vol] 8.2 mg/dL Low 8.6 - 10.3 [facility] Comment on above: Performed By: #### G TRINY #### [address] [address] Chloride [Moles/Vol] 109 mmol/L High 98 - 107 [facility] Comment on above: Performed By: #### G TRINY #### [address] [address] Creatinine [Mass/Vol] 0.61 mg/dL Normal 0.50 - 1.05 [facility] Comment on above: Performed By: #### G TRINY #### [address] [address] eGFR FEMALE >90 Normal >90 [facility] Comment on above: Result Comment: CALC ULATIONS OF ESTIMATED GFR ARE PERFORMED USING THE 2020 CKD-EPI STUDY REFIT EQUATION WITHOUT THE RACE VARIABLE FOR THE IDMS-TRACEABLE CREATININE METHODS. https://jasn.asnjournals.org/content//ASN.1288147 988 Performed By: #### G TRINY #### [address] [address] Glucose [Mass/Vol] 86 mg/dL Normal 74 - 99 [facility] Comment on above: Performed By: #### G TRINY #### [address] [address] HCO3 (Bld) [Moles/Vol] 25 mmol/L Normal 21 - 32 [facility] Comment on above: Performed By: #### G TRINY #### [address] [address] Potassium [Moles/Vol] 3.5 mmol/L Normal 3.5 - 5.3 [facility] Comment on above: Performed By: #### G TRINY #### [address] [address] Sodium [Moles/Vol] 139 mmol/L Normal 136 - 145 [facility] Comment on above: Performed By: #### G TRINY #### [address] [address] Urea nitrogen [Mass/Vol] 7 mg/dL Normal 6 - 23 [facility] Comment on above: Performed By: #### G TRINY #### [address] [address] Daily Progress Note-Critical Careon 11-23-2021 Daily Progress [...] needs. Objective Data: Objective Information: T PRBPMAPSpO2 [id number]% Date/Time11/23 4: 4: 4: 4: 4: 4:00 [...] Warm and dry Medication: Medications: Continuous Medications ------- No continuous medications are active Scheduled Medications ------- 1. Folic Acid: 1 mg Oral Daily 2. Nicotine 21 mg/ 24 hour TransDermal: 1 patch TransDermal Every 24 Hours 3. Thiamine: 100 mg Oral Daily PRN Medications ------- 1. Acetaminophen: 650 mg Oral Every 4 [...] BUN / 139 109 H 7 / ------- Glucose -- 86 K+ HCO3- Creat \\ 3.5 25 0.61 \\ Calcium : 8.2 L Anion Gap : [...] with social work and a counselor in [place] At this time I will sign off Please call with any issues or needs Electronic Signatures: Giles Schmitt () (Signed 23-Nov-2021 06:46) Authored: Service, Subjective Data, Objective Data, Assessment and Plan, Note Completion Last Updated: 23-Nov-2021 06:46 by Giles Schmitt () [facility] Discharge [id number] 05-14-2 022 Discharge Profile2 Discharge Orders: Anticipated Discharge Date: Anticipated Discharge [id number] DNAR: Code Status at Discharge: Full Code Activity: activity as tolerated. Diet: Dietlow fat Provider FINAL REVIEW of Orders: Final Review: Final Review of Medication Reconciliation and Orders Completedby Physician Reviewing ProviderJoseph Hester MD at 23-Nov-2021 09:03:20 Appointments: Follow-Up Appointment 01: Physician/Dept/Servicefol low Keith psych now and PCP in 1 week Scheduled Date/Cyvz22-Mxm-1423 09:03 Joseph will call and make her own appointment. 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 . REF VALUES <10 Performed By: #### G TRINY #### [address] [address] BASIC METABOLIC PANELon 11-10 Calcium [Mass/Vol] 7.7 mg/dL Low 8.6 - 10.3 [facility] Comment on above: Performed By: #### B MP #### [address] [address] Anion gap [Moles/Vol] 9 mmol/L Low 10 - 20 [facility] Comment on above: Performed By: #### B MP #### [address] [address] Chloride [Moles/Vol] 110 mmol/L High 98 - 107 [facility] Comment on above: Performed By: #### B MP #### [address] [address] Creatinine [Mass/Vol] 0.54 mg/dL Normal 0.50 - 1.05 [facility] Comment on above: Performed By: #### B MP #### [address] [address] eGFR FEMALE >90 Normal >90 [facility] Comment on above: Result Comment: CALC ULATIONS OF ESTIMATED GFR ARE PERFORMED USING THE 2020 CKD-EPI STUDY REFIT EQUATION WITHOUT THE RACE VARIABLE FOR THE IDMS-TRACEABLE CREATININE METHODS. https://jasn.asnjournals.org/content/early/ASN.1731649 988 Performed By: #### B MP #### [address] [address] Glucose [Mass/Vol] 83 mg/dL Normal 74 - 99 [facility] Comment on above: Performed By: #### B MP #### [address] [address] HCO3 (Bld) [Moles/Vol] 24 mmol/L Normal 21 - 32 [facility] Comment on above: Performed By: #### B MP #### [address] [address] Potassium [Moles/Vol] 3.6 mmol/L Normal 3.5 - 5.3 [facility] Comment on above: Performed By: #### B MP #### [address] [address] Sodium [Moles/Vol] 139 mmol/L Normal 136 - 145 [facility] Comment on above: Performed By: #### B MP #### [address] [address] Urea nitrogen [Mass/Vol] 9 mg/dL Normal 6 - 23 [facility] Comment on above: Performed By: #### B MP #### [address] [address] BLOOD CULTURE, BACTERIALon 0 11-22-2021 BLOOD CULTURE, BACTERIAL TEST BLOOD CULTURE, BACTERIAL WAS CANCELLED, 11/22/2021 13:53 PATIENT: DORY ANDREWS LOCATION: [facility]#: [id number] : [birth year] AGE: SEX: F ORDERED BY: JUAN HEART SOURCE: Blood COLLECTED: ANTIBIOTICS AT ANGE.: RECEIVED : SITE: R E S U L T S BLOOD CULTURE, BACTERIAL CANCELLED 11/22/21 13:53 Normal [facility] Comment on above: Performed By: #### B LDC #### [facility] [address] [place] [address] CBCon 11-22-2021 Erythrocyte distribution width (RBC) [Ratio] 13.1 % Normal 11.5 - 14.5 [facility] Comment on above: Performed By: #### B LDC #### [facility] [address] [place] [address] Hematocrit (Bld) [Volume fraction] 37.8 % Normal 36.0 - 46.0 [facility] Comment on above: Performed By: #### B LDC #### [facility] [address] [place] [address] Hemoglobin (Bld) [Mass/Vol] 12.9 g/dL Normal 12.0 - 16.0 [facility] Comment on above: Performed By: #### B LDC #### [facility] [address] [place] [address] MCHC (RBC) [Mass/Vol] 34.1 g/dL Normal 32.0 - 36.0 [facility] Comment on above: Performed By: #### B LDC #### [facility] [address] [place] [address] MCV (RBC) [Entitic vol] 95 fL Normal 80 - 100 [facility] Comment on above: Performed By: #### B LDC #### [facility] [address] [place] [address] Platelets (Bld) [#/Vol] 203 10*3/uL Normal 150 - 450 [facility] Comment on above: Performed By: #### B LDC #### [facility] [address] [place] [address] RBC 3.97 x10E12/L Low 4.00 - 5.20 [facility] Comment on above: Performed By: #### B LDC #### [facility] [address] [place] [address] WBC (Bld) [#/Vol] 8.4 10*3/uL Normal 4.4 - 11.3 [facility] Comment on above: Performed By: #### B LDC #### [facility] [address] [place] [address] Consult-Critical Careon - Consult-Critical Care Service: Service: [...] Known Allergies: Objective: Objective Information: T PRBPMAPSpO2 [id number]% Date/Time11/22 4: 5: 5: 5: 5: 5:00 [...] Warm and dry Medications: Medications: Continuous Medications ------- 1. Dextrose 10% in Water Infusion: 500 mL IntraVenous 2. Dextrose 10% in Water Infusion: 1000 mL IntraVenous Scheduled Medications ------- 1. Folic Acid: 1 mg Oral Daily 2. Nicotine 21 mg/ 24 hour TransDermal: 1 patch TransDermal Every 24 Hours 3. Thiamine: 100 mg Oral Daily PRN Medications ------- 1. Albuterol 2.5 mg - Ipratropium 0.5 [...] dextrose infu (more content not included)... Normal [facility] Electrocardiogram 12 Leadon 11-22-2021 Electrocardiogram 12 Lead Ventricular Rate 91 Atrial Rate 91 P-R Interval 130 QRS Duration 88 Q-T Interval 370 QTC Calculation(Bazett) 455 P Mcclelland 52 R Mcclelland 66 T Mcclelland 21 QRS Count 15 Q Onset 218 P Onset 153 P Offset 201 T Offset 403 QTC Fredericia 425 Diagnosis Class Borderline Abnormal Diagnosis Normal sinus rhythm Normal ECG When compared with ECG of 21-NOV-2021 17:20, Previous ECG has undetermined rhythm, needs review Nonspecific T wave abnormality has replaced inverted T waves in Inferior leads Confirmed by HATTIE JO, UMER ([id number]) on 11/25/2021 11:31:54 AM Normal [facility] GLUCOSE-POCTon 11-22-2021 Glucose [Mass/Vol] 91 mg/dL Normal 74 - 99 [facility] Comment on above: Performed By: #### G TRINY #### [place] [address] [place] [address] Glucose [Mass/Vol] 86 mg/dL Normal 74 - 99 [facility] Comment on above: Performed By: #### G TRINY #### [address] [address] Glucose [Mass/Vol] 85 mg/dL Normal 74 - 99 [facility] Comment on above: Performed By: #### G TRINY #### [address] [address] Glucose [Mass/Vol] 90 mg/dL Normal 74 - 99 [facility] Comment on above: Performed By: #### G TRINY #### [address] [address] Glucose [Mass/Vol] 85 mg/dL Normal 74 - 99 [facility] Comment on above: Performed By: #### B LDC #### [facility] [address] [place] [address] Glucose [Mass/Vol] 105 mg/dL High 74 - 99 [facility] Comment on above: Performed By: #### G TRINY #### [address] [address] LACTATEon 11-22-2021 LACTATE Canceled Normal [facility] Comment on above: Order Comment: TEST LACTATE WAS CANCELLED, 11/22/2021 13:53 Result Comment: Anjali puncture immediately after or during the administration of Metamizole may lead to falsely low results. Testing should be performed immediately prior to Metamizole dosing. Performed By: #### G TRINY #### [address] [address] Lactate [Moles/Vol] 1.4 mmol/L Normal 0.4 - 2.0 [facility] Comment on above: Result Comment: Anjali puncture immediately after or during the administration of Metamizole may lead to falsely low results. Testing should be performed immediately prior to Metamizole dosing. Performed By: #### B MP #### [address] [address] TSHon 11-22-2021 TSH Qn 1.11 m[IU]/L Normal 0.44 - 3.98 [facility] Comment on above: Result Comment: TSH testing is performed using different testing methodology at [facility] than at [facility]. Direct result comparisons should only be made within the same method. Performed By: #### G TRINY #### [place] [address] ACETAMINOPHENon 11-21-2021 Acetaminophen [Mass/Vol] ug/mL Normal 10.0 - 30.0 [facility] Comment on above: Performed By: #### A CETA #### [place] [address] ALCOHOLon 11-21-2021 Ethanol [Mass/Vol] 302 mg/dL Abnormal [facility] Comment on above: Result Comment: FOR MEDICAL USE ONLY. . REF VALUES <10 Performed By: #### A LC #### [place] [address] AMMONIAon 11-21-2021 Ammonia (P) [Moles/Vol] 23 umol/L Normal [facility] Comment on above: Result Comment: . REFERENCE VALUES DAY 1 to DAY 7 <110 DAY 8 to DAY 14 < 90 DAY 15 to ADULT 16-53 Performed By: #### A MM #### [place] [address] ARTERIAL FULL PANELon 2021 Anion gap [Moles/Vol] 16 mmol/L Normal 10 - 25 [facility] Comment on above: Performed By: #### G TRINY #### [place] [address] APPARATUS Cannula Normal [facility] Comment on above: Performed By: #### G TRINY #### [place] [address] BASE EXCESS-BLOOD -3.8 mmol/L Low -2.0 - 3.0 [facility] Comment on above: Performed By: #### G TRINY #### [place] [address] BICARB, CALCULATED 19.0 mmol/L Low 22.0 - 26.0 [facility] Comment on above: Performed By: #### G TRINY #### [place] [address] CALCIUM,IONIZED 1.05 mmol/L Low 1.10 - 1.33 [facility] Comment on above: Performed By: #### G TRINY #### [place] [id number] Chloride [Moles/Vol] 108 mmol/L High 98 - 107 [facility] Comment on above: Performed By: #### G TRINY #### [place] [address] FIO2 36 % Normal [facility] Comment on above: Performed By: #### G TRINY #### [place] [address] Glucose [Mass/Vol] 343 mg/dL High 74 - 99 [facility] Comment on above: Performed By: #### G TRINY #### [place] [address] Hematocrit (Bld) [Volume fraction] 41.0 % Normal 36.0 - 46.0 [facility] Comment on above: Performed By: #### G TRINY #### [place] [id number] Lactate [Moles/Vol] 2.4 mmol/L High 0.4 - 2.0 [facility] Comment on above: Performed By: #### G TRINY #### [place] [address] Oxygen (Bld) [Partial pressure] 133 mm[Hg] High 85 - 95 [facility] Comment on above: Performed By: #### G TRINY #### [place] [address] PATIENT TEMPERATURE 37.0 degrees C Normal [facility] Comment on above: Result Comment: NOTE : PATIENT RESULTS ARE NOT CORRECTED FOR TEMPERATURE. Performed By: #### G TRINY #### [place] [id number] PCO2 28 mmHg Low 38 - 42 [facility] Comment on above: Performed By: #### G TRINY #### [place] [id number] pH (Bld) 7.44 [pH] High 7.38 - 7.42 [facility] Comment on above: Performed By: #### G TRINY #### [place] [id number] Potassium [Moles/Vol] 3.5 mmol/L Normal 3.5 - 5.3 [facility] Comment on above: Performed By: #### G TRINY #### [address] [address] SO2 100 % Normal 94 - 100 [facility] Comment on above: Performed By: #### G TRINY #### [address] [address] Sodium [Moles/Vol] 139 mmol/L Normal 136 - 145 [facility] Comment on above: Performed By: #### G TRINY #### [address] [address] Admission Risk Screen - Adul ton 11-21-2021 [...] AlertFor Ebola-like Symptoms: Isolate Patient and Notify Provider/Laborer Driver For Contact: Notify Provider/Laborer Driver Advance Directive: Advance Directive/DNRno (2) Advance Directive Information Givenpatient/family declined Sánchez Fall Screen: History of falling (immediate or previous)yes (25) Secondary Diagnosisyes (15) Intravenous Therapy/ Heparin/Saline Lockyes (20) Gait/Transferringnormal/b edrest/wheelchair (0) Ambulatory Aidsnone/bedrest/nurse assist (0) Mental Statusoriented [...] material; individual instruction Cultural Considerationsnone Developmental Considerationsnone Islam Considerationsnone Learning Assessment (Other Learner): Other learner availableno Depression Screen: During the past month, have you often been bothered by feeling down, depressed or hopelessyes During the past month, have you often had little interest or pleasure in doing thingsyes Have you had any thoughts of harming anyone elseyes [place] Suicide: Risk Screen Not Applicable/Able to Answerable [...] Was this within the past 3 monthsyes [place] Suicide Riskhigh Adult Nutrition Screen: Have you recently lost [...] requires Paper (more content not included)... Normal [facility] BASIC METABOLIC PANELon 05 Anion gap [Moles/Vol] 16 mmol/L Normal 10 - 20 [facility] Comment on above: Performed By: #### B MP #### [address] [address] Calcium [Mass/Vol] 8.7 mg/dL Normal 8.6 - 10.3 [facility] Comment on above: Performed By: #### B MP #### [address] [address] Chloride [Moles/Vol] 109 mmol/L High 98 - 107 [facility] Comment on above: Performed By: #### B MP #### [address] [address] Creatinine [Mass/Vol] 0.73 mg/dL Normal 0.50 - 1.05 [facility] Comment on above: Performed By: #### B MP #### [address] [address] eGFR FEMALE >90 Normal >90 [facility] Comment on above: Result Comment: CALC ULATIONS OF ESTIMATED GFR ARE PERFORMED USING THE 2020 CKD-EPI STUDY REFIT EQUATION WITHOUT THE RACE VARIABLE FOR THE IDMS-TRACEABLE CREATININE METHODS. https://jasn.asnjournals.org/content/early/ASN.6885150 988 Performed By: #### B MP #### [address] [address] Glucose [Mass/Vol] 81 mg/dL Normal 74 - 99 [facility] Comment on above: Performed By: #### B MP #### [address] [address] HCO3 (Bld) [Moles/Vol] 22 mmol/L Normal 21 - 32 [facility] Comment on above: Performed By: #### B MP #### [address] [address] Potassium [Moles/Vol] 3.7 mmol/L Normal 3.5 - 5.3 [facility] Comment on above: Performed By: #### B MP #### [address] [address] Sodium [Moles/Vol] 143 mmol/L Normal 136 - 145 [facility] Comment on above: Performed By: #### B MP #### [address] [address] Urea nitrogen [Mass/Vol] 11 mg/dL Normal 6 - 23 [facility] Comment on above: Performed By: #### B MP #### [address] [address] CBC AND DIFFERENTIALon 11-21 Basophils (Bld) [#/Vol] 0.00 10*3/uL Normal 0.00 - 0.10 [facility] Comment on above: Performed By: #### B MP #### [address] [address] Basophils/100 WBC (Bld) 0.5 % Normal 0.0 - 2.0 [facility] Comment on above: Performed By: #### B MP #### [address] [place] [address] Eosinophils (Bld) [#/Vol] 0.00 10*3/uL Normal 0.00 - 0.70 [facility] Comment on above: Performed By: #### B MP #### [address] [address] Eosinophils/100 WBC (Bld) 0.4 % Normal 0.0 - 6.0 [facility] Comment on above: Performed By: #### B MP #### [address] [address] Erythrocyte distribution width (RBC) [Ratio] 13.4 % Normal 11.5 - 14.5 [facility] Comment on above: Performed By: #### B MP #### [address] [address] Hematocrit (Bld) [Volume fraction] 43.4 % Normal 36.0 - 46.0 [facility] Comment on above: Performed By: #### B MP #### [address] [address] Hemoglobin (Bld) [Mass/Vol] 14.4 g/dL Normal 12.0 - 16.0 [facility] Comment on above: Performed By: #### B MP #### [address] [address] Lymphocytes (Bld) [#/Vol] 2.10 10*3/uL Normal 1.20 - 4.80 [facility] Comment on above: Performed By: #### B MP #### [address] [address] Lymphocytes/100 WBC (Bld) 32.1 % Normal 13.0 - 44.0 [facility] Comment on above: Performed By: #### B MP #### [address] [address] MCHC (RBC) [Mass/Vol] 33.1 g/dL Normal 32.0 - 36.0 [facility] Comment on above: Performed By: #### B MP #### [address] [address] MCV (RBC) [Entitic vol] 97 fL Normal 80 - 100 [facility] Comment on above: Performed By: #### B MP #### [address] [address] Monocytes (Bld) [#/Vol] 0.30 10*3/uL Normal 0.10 - 1.00 [facility] Comment on above: Performed By: #### B MP #### [address] [address] Monocytes/100 WBC (Bld) 5.0 % Normal 2.0 - 10.0 [facility] Comment on above: Performed By: #### B MP #### [address] [address] Neutrophils (Bld) [#/Vol] 4.00 10*3/uL Normal 1.20 - 7.70 [facility] Comment on above: Result Comment: Perc ent differential counts (%) should be interpreted in the context of the absolute cell counts (cells/L). Performed By: #### B MP #### [address] [address] Neutrophils/100 WBC (Bld) 62.0 % Normal 40.0 - 80.0 [facility] Comment on above: Performed By: #### B MP #### [address] [address] NUCLEATED RBC 0.1 /100 WBC Normal [facility] Comment on above: Performed By: #### B MP #### [address] [address] Platelets (Bld) [#/Vol] 228 10*3/uL Normal 150 - 450 [facility] Comment on above: Performed By: #### B MP #### [address] [address] RBC 4.50 x10E12/L Normal 4.00 - 5.20 [facility] Comment on above: Performed By: #### B MP #### [address] [address] WBC (Bld) [#/Vol] 6.5 10*3/uL Normal 4.4 - 11.3 [facility] Comment on above: Performed By: #### B MP #### [place] [address] CHEST 1 VIEWon 11-21-2021 CHEST 1 VIEW Patient Name: DORY ANDREWS STUDY: CHEST 1 VIEW; 11/21/2021 6:15 pm INDICATION: OD . COMPARISON: None. ACCESSION NUMBER(S): [id number] ORDERING CLINICIAN: WADE HERNÁNDEZ FINDINGS: CARDIOMEDIASTINAL SILHOUETTE: Cardiomediastinal silhouette is normal in size and configuration. LUNGS: No consolidation, pneumothorax, or significant effusion. ABDOMEN: No remarkable upper abdominal findings. BONES: No acute osseous changes. IMPRESSION: 1. No evidence of acute cardiopulmonary process. Electronically signed by: JOSE HENRY MD Normal [facility] COOX PANEL, ARTERIALon 11-21 CO HGB 3.4 % Abnormal [facility] Comment on above: Result Comment: REF VALUES NONSMOKERS 0.5-1.5% SMOKERS 0.5-10.0% Performed By: #### B MP #### [place] [address] DEOXY HGB 0.4 % Normal 0.0 - 5.0 [facility] Comment on above: Performed By: #### B MP #### [place] [address] Hemoglobin (Bld) [Mass/Vol] 13.8 g/dL Normal 12.0 - 16.0 [facility] Comment on above: Performed By: #### B MP #### [place] [address] Performed By: #### G TRINY #### [place] [address] MET HGB 1.1 % Normal 0.0 - 1.5 [facility] Comment on above: Performed By: #### B MP #### [place] [address] OXY HGB 95.0 % Normal 94.0 - 98.0 [facility] Comment on above: Performed By: #### B MP #### [place] [address] Performed By: #### G TRINY #### [place] [id number] SITE OF ARTERIAL PUNCTURE LT BRAC Normal [facility] Comment on above: Performed By: #### B MP #### [place] [address] Performed By: #### G TRINY #### [place] [id number] CREATINE KINASEon 11-21-2021 CK [Catalytic activity/Vol] 89 U/L Normal 0 - 215 [facility] Comment on above: Performed By: #### B MP #### [place] [address] Covid 19 Resultson SARS-CoV-2 (COVID-19) RNA YAYO+probe Ql (Unsp spec) [...] You may also be contacted by the [facility] to see if any of your close [...] or Naproxen (Aleve) can also be used. Hewt-xyf-tgmeyod cough and cold medicines can be used according to the instructions on the package. Some cyys-xdf-dleynfd medicines also contain acetaminophen. Make sure you [...] water are not available, use alcohol-based hand varnish cooker. Avoid touching your eyes, nose, and mouth [...] 24 regine (more content not included)... Normal [facility] DRUG SCREEN,URINEon 11-22-19 22 AMPHETAMINE SCREEN,U Negative Normal NEGATIVE [facility] Comment on above: Result Comment: CUTO FF LEVEL: 500 NG/ML Cross-reactivity has been reported with high concentrations of the following drugs: buproprion, chloroquine, chlorpromazine, ephedrine, mephentermine, fenfluramine, phentermine, phenylpropanolamine, pseudoephedrine, and propranolol. Performed By: #### B MP #### [place] [address] BARBITURATES SCREEN,U Negative Normal NEGATIVE [facility] Comment on above: Result Comment: CUTO FF LEVEL: 200 NG/ML Performed By: #### B MP #### [place] [address] BENZODIAZEPINES SCREEN,U Negative Normal NEGATIVE [facility] Comment on above: Result Comment: CUTO FF LEVEL: 200 NG/ML Performed By: #### B MP #### [address] [address] CANNABINOIDS SCREEN,U Negative Normal NEGATIVE [facility] Comment on above: Result Comment: CUTO FF LEVEL: 50 NG/ML Performed By: #### B MP #### [place] [address] COCAINE METABOLITE SCREEN,U Negative Normal NEGATIVE [facility] Comment on above: Result Comment: CUTO FF LEVEL: 150 NG/ML Performed By: #### B MP #### [place] [address] DRUG SCREEN COMMENT SEE BELOW Normal [facility] Comment on above: Result Comment: Drug screen results are presumptive and should not be used to assess compliance with prescribed medication. Contact the performing [facility] laboratory to add-on definitive confirmatory testing if [...] directors. Performed By: #### B MP #### [place] [address] FENTANYL SCREEN,URINE Negative Normal NEGATIVE [facility] Comment on above: Result Comment: CUTO FF LEVEL: 1 NG/ML The performance characteristics of this test have been determined by the individual laboratory site where testing is performed. This test has not been cleared or approved by the FDA; however, the FDA has determined that such clearance is not necessary. Performed By: #### B MP #### [place] [address] METHADONE SCREEN,U Negative Normal NEGATIVE [facility] Comment on above: Result Comment: CUTO FF LEVEL: 150 NG/ML The metabolite O-cdoob-cwgfqwtmoelmwq (LAAM) is not detected by this method in concentrations that would be found in the urine of patients on LAAM therapy. Performed By: #### B MP #### [place] [address] OPIATES SCREEN,U Negative Normal NEGATIVE [facility] Comment on above: Result Comment: CUTO FF LEVEL: 300 NG/ML The opiate screen does not detect fentanyl, meperidine, or tramadol. Oxycodone is not consistently detected (refer to Oxycodone Screen, Urine result). Performed By: #### B MP #### [place] [address] OXYCODONE SCREEN,U Negative Normal NEGATIVE [facility] Comment on above: Result Comment: CUTO FF LEVEL: 100 NG/ML This test will accurately detect both oxycodone and oxymorphone. Performed By: #### B MP #### [place] [address] PCP SCREEN,U Negative Normal NEGATIVE [facility] Comment on above: Result Comment: CUTO FF LEVEL: 25 NG/ML Cross-reactivity has been reported with dextromethorphan. Performed By: #### B MP #### [place] [id number] Electrocardiogram 12 Leadon 11-21-2021 Electrocardiogram 12 Lead Ventricular Rate 102 Atrial Rate 102 P-R Interval 130 QRS Duration 84 Q-T Interval 350 QTC Calculation(Bazett) 456 P Mcclelland 69 R Mcclelland 77 T Mcclelland -18 QRS Count 17 Q Onset 221 P Onset 156 P Offset 209 T Offset 396 QTC Fredericia 417 Diagnosis Class Normal Diagnosis Please see physician note for formal interpretation confirmed by Scribe" Confirmed by DAVID XIAO () on 11/22/2021 7:49:05 AM Normal [facility] GLUCOSE-POCTon 11-21-2021 Glucose [Mass/Vol] 132 mg/dL High 74 - 99 [facility] Comment on above: Performed By: #### G TRINY #### [place] [id number] Glucose [Mass/Vol] 359 mg/dL High 74 - 99 [facility] Comment on above: Performed By: #### G TRINY #### [address] [address] HCG,SERUM QUALITATIVEon 11-10 HCG,SERUM QUALITATIVE Negative Normal Negative [facility] Comment on above: Performed By: #### H CGS #### [address] [address] HCG,URINEon 11-21-2021 Beta HCG ( test) Ql (U) Negative Normal Negative [facility] Comment on above: Performed By: #### B LDC #### [facility] [address] [place] [address] HEPATIC FUNCTION PANELon Albumin [Mass/Vol] 4.7 g/dL Normal 3.4 - 5.0 [facility] Comment on above: Performed By: #### B MP #### [address] [address] ALP [Catalytic activity/Vol] 70 U/L Normal 33 - 110 [facility] Comment on above: Performed By: #### B MP #### [address] [address] ALT [Catalytic activity/Vol] 21 U/L Normal 7 - 45 [facility] Comment on above: Result Comment: Amanda ents treated with Sulfasalazine may generate falsely decreased results for ALT. Performed By: #### B MP #### [address] [address] AST [Catalytic activity/Vol] 22 U/L Normal 9 - 39 [facility] Comment on above: Performed By: #### B MP #### [address] [address] Bilirubin [Mass/Vol] 0.5 mg/dL Normal 0.0 - 1.2 [facility] Comment on above: Performed By: #### B MP #### [address] [address] Bilirubin.indirect [Mass/Vol] 0.1 mg/dL Normal 0.0 - 0.3 [facility] Comment on above: Performed By: #### B MP #### [address] [address] Protein [Mass/Vol] 6.9 g/dL Normal 6.4 - 8.2 [facility] Comment on above: Performed By: #### B #### [address] [address] INFLUENZA A/B, COVID 2019 PC R,SYMPTOMATICon 11-21-2021 Lab Specimen Source Nasal, Nasopharyngeal Normal [facility] Comment on above: Performed By: #### B LDC #### [facility] [address] [place] [address] INFLUENZA A, PCR Not detected Normal Not Detected [facility] Comment on above: Result Comment: Resp iratory virus testing is performed routinely by PCR for Influenza A/B and RSV. Not Detected results do not preclude Influenza A/B or RSV infections since the adequacy of sample collection or low viral burden may impact the clinical sensitivity of this test method. Performed By: #### B LD #### [facility] [address] [place] [address] INFLUENZA B, PCR Not detected Normal Not Detected [facility] Comment on above: Result Comment: Resp iratory virus testing is performed routinely by PCR for Influenza A/B and RSV. Not Detected results do not preclude Influenza A/B or RSV infections since the adequacy of sample collection or low viral burden may impact the clinical sensitivity of this test method. Performed By: #### B LDC #### [facility] [address] [place] [address] SARS-CoV-2 (COVID-19) RNA YAYO+probe Ql (Unsp spec) Not detected Normal Not Detected [facility] Comment on above: Result Comment: . This test has received FDA Emergency Use Authorization (EUA) and has been verified by [facility]. This test is only authorized for the duration of time that circumstances exist to justify the authorization of the emergency use of in vitro diagnostic tests for the detection of SARS-CoV-2 virus and/or diagnosis of COVID-19 infection under section 564(b)(1) of the Act, 21 U.S.C. 360bbb-3(b)(1), unless the authorization is terminated or revoked sooner. [facility] is certified under CLIA-88 as qualified to perform high complexity testing. Testing is performed in the [facility] laboratory located at [address] [place] [address]. SARS-CoV-2/Flu/RSV Multiplex Test: Fact sheet for providers: https://www.fda.gov/media/648624/download Fact sheet for patients: https://www.fda.gov/media/765207/download Performed By: #### B LDC #### [facility] [address] [place] [address] LACTATEon 11-21-2021 Lactate [Moles/Vol] 1.4 mmol/L Normal 0.4 - 2.0 [facility] Comment on above: Result Comment: Anjali puncture immediately after or during the administration of Metamizole may lead to falsely low results. Testing should be performed immediately prior to Metamizole dosing. Performed By: #### B LDC #### [facility] [address] [place] [address] Lactate [Moles/Vol] 2.4 mmol/L High 0.4 - 2.0 [facility] Comment on above: Result Comment: Anjali puncture immediately after or during the administration of Metamizole may lead to falsely low results. Testing should be performed immediately prior to Metamizole dosing. Performed By: #### B #### [place] [address] Order Reconciliationon 11-21 Order Reconciliation Page 1 Admission Reconciliation Document Reconciliation Type: Admission requested on behalf of Joseph Hester (Physician) done by Joseph Hester) Admission - Reconciliation: 21-Nov-2021 20:06 by: Joseph Hester) Home MedicationsEnteredLast Dose TakenReconciled with current Order Reconciliation Comment/ Additional Information cyanocobalamin 1000 mcg/mL injectable solution 1000 microgram(s) injectable every 4 [id number] Reviewed and Held lamoTRIgine 25 mg oral tablet 1 tab(s) orally 2 times a [id number]-Nov-2021 AM Reviewed and Held metFORMIN 500 mg oral tablet, extended release 2 tab(s) orally once a day [id number] AM Reviewed and Held propranolol 10 mg oral tablet 1 tab(s) orally 2 times a [id number]-Nov-2021 AM Reviewed and Held sertraline 100 mg oral tablet 1 tab(s) orally once a [id number] Reviewed and Held Tylenol 500 mg oral tablet 2 tab(s) orally every 6 hours, As [id number]-Nov-2021 AM Reviewed and Held Vitamin D3 125 [...] DOSE = 100 mg IntraVenous Push Daily [facility] Patient Profile - Adult v2on 11-21-2021 Patient Profile - Adult v2 Profile: Initial Info: How to be AddressedMakayla Spoken Language PreferredEnglish Source of Informationpatient Stated Reason for AdmissionFound unresponsive Primary Contact Name and NumberTammy Chris [phone] Wants Family/Rep Notified of Admissionno Notify PCPnotify PCP Dr. Herrera CCWooster Informed of Patient Visiting Rightsyes Arrived Fromemergency department Was Admitted To in Past 90 Daysnone Employment Statusdisabled Current or Previous Servicenone Patient Belongingsremains with patient Patient Belongings Remaining with Patientclothing; cell phone/electronics; Cell phone locked in locker and church on chart Medications Brought to Hospitalyes Medication Dispositionsent to pharmacy, brought in by [facility]: Blood Avoidance/Restrictionsnon e Previous Transfusion Reactionno Weight in kg73.4 kilogram(s) Weight in iyp394.8 pound(s) Weight Methodactual (measured) Scale Typebed Height [...] Are You Currently Breastfeedingno (2) Behavioral Health Symptoms/Conditionsbipola r affective disorder; depression Behavioral Management Strategiesmedication therapy; counseling; coping strategies; community resources Behavioral Health Managementnot managed Cardiovascular Symptoms/ConditionsPotts syndrome Cardiovascular Management Strategiesmedication therapy Cardiovascular Managementmanaged Endocrine Symptoms/ConditionsPCOS Endocrine Management Strategiesmedication therapy; diet modification Endocrine Managementmanaged Barriers to Managing Healthmedication side effects; stress of chronic illness; social support Relationship/Environ: Resource/Environmental Concernsnone Primary Source of Support/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 and case resource manager Lives Withfriend(s) Living Arrangementshouse Services Anticipated at Transitioncase manager sales and marketing; mental health services Anticipated Transition Tohome Significant IndicatorsComplete Information Review: Allergies, Home Meds and Significant Events have been Reviewed and Verified with Patient/Familyyes ALLERGY, INTOLERANCE, ADVERSE EVENT: Allergies: No Known Allergies: Active Electronic Signatures: Beatriz Thomas (SAVITA) (Signed 22-Nov-2021 02:25) Authored: Initial Info, General Health, RSP Based Care, Substance, Health Mgmt, Relationship/Environ, Additional Information Last Updated: 22-Nov-2021 02:25 by Beatriz Thomas (SAVITA) References: 1. Data Referenced From Risk Screen - Adult Emergency" 21-Nov-2021 17:53 2. Data Referenced From "Triage - ED" 21-Nov-2021 17:26 [facility] Provider Note - ED v3on 05- Provider Note - ED v3 Provider Note: [...] non-tender and [employer]UCH[employer] NIH Stroke Scale: Elvis Coma Scale (baseline) [place] Coma Scale: Verbal Response: (V1) none Eye: [...] with prescribed medication. Contact the performing [facility] laboratory to add-on definitive confirmatory testing if clinically indicated. .Toxicology scre Amphetamine Screen, Urine PRESUMPTIVE NEGATIVE CUTOFF LEVEL: 500 NG/ML Cross-reactivity has been reported with high concentrations of the following d (more content not included)... Normal [facility] Risk Screen - Adult Emergenc yon 11-21-2021 Risk Screen - Adult Emergency Preferred Language: Preferred Language: Preferred Language for Discussing Health Care (patient/designee)Bhutanese Advanced Directives: Advance Directive/DNRno Family Violence Adult: [...] an injured patient at a Trauma Center ([facility] [place]/ [place]): no Electronic Signatures: Isabel Calvert (SAVITA) (Signed 21-Nov-2021 17:54) Authored: Preferred Language, Advanced Directives, Family Violence Adult, Learning Assessment (Patient), Learning Assessment (Other Learner), Pressure Injury/TB/Substance, Pressure Injury, CAGE Last Updated: 21-Nov-2021 17:54 by Isabel Calvert (SAVITA) Normal [facility] SALICYLATEon 11-21-2021 SALICYLATE <3 Normal 4 - 20 [facility] Comment on above: Performed By: #### S ALI #### [place] [address] TROPONIN I, HIGH SENSITIVITY on 11-21-2021 TROPONIN I, HIGH SENSITIVITY <3 Normal 0 - 13 [facility] Comment on above: Result Comment: . Less [...] performed using a different testing methodology at [facility] than at other [facility]. Direct result comparisons should only be made within the same method. Performed By: #### B [facility] #### [facility] [address] [place] [address] Triage - EDon 11-21-2021 Triage - ED [...] Last Updated: 21-Nov-2021 17:52 by Isabel Calvert) [facility] 11-21-2021 RBC (U) [#/Vol] /uL Normal 0-5 [facility] Comment on above: Performed By: #### B LDC #### [facility] [address] [place] [address] SQUAMOUS EPITH. CELLS <1 Normal [facility] Comment on above: Performed By: #### B LDC #### [facility] [address] [place] [address] WBC None Normal 0-5 [facility] Comment on above: Performed By: #### B LDC #### [facility] [address] [place] [address] URINALYSISon 11-21-2021 Appearance (U) CLEAR Normal CLEAR [facility] Comment on above: Performed By: #### B LDC #### [facility] [address] [place] [address] Bilirubin Ql (U) Negative Normal NEGATIVE [facility] Comment on above: Performed By: #### B LDC #### [facility] [address] [place] [address] Color (U) Straw Normal STRAW,YELLOW [facility] Comment on above: Performed By: #### B LDC #### [facility] [address] [place] [address] Glucose Ql (U) >=500(3+) Abnormal NEGATIVE [facility] Comment on above: Performed By: #### B LDC #### [facility] [address] [place] [address] Hemoglobin Ql (U) SMALL(1+) Abnormal NEGATIVE [facility] Comment on above: Performed By: #### B LDC #### [facility] [address] [place] [address] Ketones Ql (U) Negative Normal NEGATIVE [facility] Comment on above: Performed By: #### B LDC #### [facility] [address] [place] [address] Leukocyte esterase Test strip Ql (U) Negative Normal NEGATIVE [facility] Comment on above: Performed By: #### B LDC #### [place] [address] [place] [address] Nitrite Ql (U) Negative Normal NEGATIVE [facility] Comment on above: Performed By: #### B LDC #### [facility] [address] [place] [address] pH (U) 6.0 [pH] Normal 5.0 - 8.0 [facility] Comment on above: Performed By: #### B LDC #### [facility] [address] [place] [address] Protein Ql (U) Negative Normal NEGATIVE [facility] Comment on above: Performed By: #### B LDC #### [facility] [address] [place] [address] Specific gravity (U) [Rel density] 1.005 Normal 1.005 - 1.035 [facility] Comment on above: Performed By: #### B LDC #### [facility] [address] [place] [address] Urobilinogen (U) [Mass/Vol] mg/dL Normal 0.0 - 1.9 [facility] Comment on above: Performed By: #### B LDC #### [facility] [address] [place] [address] BMPon 06-02-2021 Anion gap [Moles/Vol] 9 mmol/L Normal 5-16 [facility] Comment on above: Order Comment: Campu s: M Performed By: #### L 500.86905, L500.11217, L500.07120 #### [facility] [place] [address] Calcium [Mass/Vol] 9.8 mg/dL Normal 8.5-10.5 [facility] Comment on above: Order Comment: Campu s: M Result Comment: NOTE NEW NORMAL RANGE DUE TO REAGENT CHANGE Performed By: #### L 500.41171, L500.14323, L500.41650 #### [facility] [address] [place] [address] Chloride [Moles/Vol] 106 mmol/L Normal 98-107 [facility] Comment on above: Order Comment: Campu s: M Performed By: #### L 500.98013, L500.64727, L500.18036 #### [facility] [address] [place] [address] CO2 [Moles/Vol] 25.0 mmol/L Normal 21-32 [facility] Comment on above: Order Comment: Campu s: M Performed By: #### L 500.77932, L500.93267, L500.66200 #### [facility] [address] [place] [address] Creatinine [Mass/Vol] 0.75 mg/dL Normal 0.510-0.950 [facility] Comment on above: Order Comment: Campu s: M Result Comment: Amanda ents receiving either N-Acetylcysteine (NAC) or Metamizole prior to venipuncture, may have falsely depressed results. Performed By: #### L 500.76203, L500.25965, L500.99022 #### [facility] [address] [place] [address] Glucose [Mass/Vol] 121 mg/dL High 70-100 [facility] Comment on above: Order Comment: Campu s: M Result Comment: 70-1 00- Normal Fasting; 100-125 Impaired Fasting; greater than 126 on more than one result- Diabetes. ADA guidelines. Results may be falsely elevated after the administration of Sulfapyridine. Results may be falsely depressed after the administration of Sulfasalazine. Performed By: #### L 500.64281, L500.62129, L500.43188 #### [facility] [place] [address] Potassium [Moles/Vol] 3.5 mmol/L Normal 3.5-5.1 [facility] Comment on above: Order Comment: Campu s: M Result Comment: Slig ht Hemolysis, Result may be affected. Performed By: #### L 500.23893, L500.99721, L500.51820 #### [facility] [address] [place] [address] Sodium [Moles/Vol] 140 mmol/L Normal 136-145 [facility] Comment on above: Order Comment: Campu s: M Performed By: #### L 500.63566, L500.89365, L500.76642 #### [facility] [address] [place] [address] Urea nitrogen [Mass/Vol] 13 mg/dL Normal 7-26 [facility] Comment on above: Order Comment: Campu s: M Performed By: #### L 500.15102, L500.83708, L500.35365 #### [facility] [address] [place] [address] Urea nitrogen/Creatinine [Mass ratio] 17 mg/mg Normal 15-24 [facility] Comment on above: Order Comment: Campu s: M Performed By: #### L 500.05935, L500.53400, L500.72330 #### [facility] [address] [place] [address] CBC W/DIFFon 06-02-2021 BASO ABS 0.00 K/CU MM Normal 0-0.2 [facility] Comment on above: Order Comment: Campu s: M Performed By: #### L [id number] #### [facility] [address] [place] [address] Basophils/100 WBC (Bld) 0.2 % Normal 0-2 [facility] Comment on above: Order Comment: Campu s: M Performed By: #### L 200.63414 #### [facility] [address] [place] [address] EOS ABS 0.10 K/CU MM Normal 0-0.5 [facility] Comment on above: Order Comment: Campu s: M Performed By: #### L 200.06400 #### [facility] [address] [place] [address] Eosinophils/100 WBC (Bld) 1.0 % Normal 0-5 [facility] Comment on above: Order Comment: Campu s: M Performed By: #### L 200.59180 #### [facility] [address] [place] [address] Erythrocyte distribution width (RBC) [Ratio] 12.3 % Normal 11-14.5 [facility] Comment on above: Order Comment: Campu s: M Performed By: #### L 200.47566 #### [facility] [address] [place] [address] Hematocrit (Bld) [Volume fraction] 42.8 % Normal 35.0-47.0 [facility] Comment on above: Order Comment: Campu s: M Performed By: #### L 200.12141 #### [facility] [address] [place] [address] Hemoglobin (Bld) [Mass/Vol] 14.5 g/dL Normal 11.5-15.5 [facility] Comment on above: Order Comment: Campu s: M Performed By: #### L 200.24782 #### [facility] [address] [place] [address] IMMATR GRAN ABS 0.00 K/CU MM Normal Less than 2 [facility] Comment on above: Order Comment: Campu s: M Performed By: #### L 200.66929 #### [facility] [address] [place] [address] IMMATURE GRAN % 0.1 % Normal Less than 2 [facility] Comment on above: Order Comment: Campu s: M Performed By: #### L 200.15109 #### [facility] [address] [place] [address] LYMPH ABS 1.80 K/CU MM Normal 0.9-4.4 [facility] Comment on above: Order Comment: Campu s: M Performed By: #### L 200.00771 #### [facility] [address] [place] [address] Lymphocytes/100 WBC (Bld) 22.6 % Normal 20-40 [facility] Comment on above: Order Comment: Campu s: M Performed By: #### L .42408 #### [facility] [address] [place] [address] MCHC (RBC) [Mass/Vol] 33.9 g/dL Normal 32.0-36.0 [facility] Comment on above: Order Comment: Campu s: M Performed By: #### L .99654 #### [facility] [address] [place] [address] MCV (RBC) [Entitic vol] 96.0 fL Normal 80.0-99.0 [facility] Comment on above: Order Comment: Campu s: M Performed By: #### L 200.99603 #### [facility] [address] [place] [address] MONO ABS 0.50 K/CU MM Normal 0.1-1.1 [facility] Comment on above: Order Comment: Campu s: M Performed By: #### L 200.46678 #### [facility] [address] [place] [address] Monocytes/100 WBC (Bld) 5.8 % Normal 2-10 [facility] Comment on above: Order Comment: Campu s: M Performed By: #### L 200.38831 #### [facility] [address] [place] [address] NEUTROPHIL ABS 5.70 K/CU MM Normal 2.0-8.3 [facility] Comment on above: Order Comment: Campu s: M Performed By: #### L 200.66796 #### [facility] [address] [place] [address] Neutrophils/100 WBC (Bld) 70.3 % Normal 45-75 [facility] Comment on above: Order Comment: Campu s: M Performed By: #### L 200.98115 #### [facility] [address] [place] [address] Nucleated RBC/100 WBC (Bld) [Ratio] 0.0 % Normal Less than 1 [facility] Comment on above: Order Comment: Campu s: M Performed By: #### L 200.68225 #### [facility] [address] [place] [address] Platelet mean volume (Bld) [Entitic vol] 10.3 fL Normal 9.4-12.4 [facility] Comment on above: Order Comment: Campu s: M Performed By: #### L 200.91814 #### [facility] [address] [place] [address] PLT 239 K/CU MM Normal 150-450 [facility] Comment on above: Order Comment: Campu s: M Performed By: #### L 200.60604 #### [facility] [address] [place] [address] RBC 4.46 M/CU MM Normal 3.90-5.30 [facility] Comment on above: Order Comment: Campu s: M Performed By: #### L 200.96354 #### [facility] [address] [place], [place] [address] WBC 8.2 K/CUMM Normal 4.5-11.0 [facility] Comment on above: Order Comment: Campu s: M Performed By: #### L 200.50571 #### [facility] [address] [place] [address] CT ANG THOR W/POST PROCon CT ANG [...] Upper abdomen: There is diffusely fatty liver. Fitness/Wellness Director (topogram) images: No additional findings. IMPRESSION: NO CT EVIDENCE OF PULMONARY EMBOLISM. NO CT EVIDENCE OF ACUTE CARDIOPULMONARY PROCESS. This report was electronically signed by Zunilda Zepeda 06/02/2021 6:58 PM Reported By: ZUNILDA ZEPEDA MD Signed By: ZUNILDA ZEPEDA MD [facility] CT HEAD/BRAIN W/O CONon 05-14 CT HEAD/BRAIN W/O CON EXAMINATION: CT HEAD/BRAIN [...] base and imaged soft tissues are unremarkable. Fitness/Wellness Director (topogram) images: No additional findings. IMPRESSION: NO CT EVIDENCE OF ACUTE INTRACRANIAL PROCESS. This report was electronically signed by Zunilda Zepeda 06/02/2021 6:49 PM Reported By: ZUNILDA ZEPEDA MD Signed By: ZUNILDA ZEPEDA MD [facility] EKGon 06-02-2021 Electrocardiogram Procedure Date and [...] By:Zechariah NIEVES M.D.FACC Malcolm DDandT: 06/02/211725 TDandT: [facility] PATIENT NAME: DORY ANDREWS [facility] Dr[address] Yadav MEDICAL REC #: [id number] [place] [address] ADMIT DATE: DISCHARGE DATE: 06/02/21 ATTENDING PHY: Tank Ruiz MD ELECTROCARDIOGRAM REPORT CLB cc: [facility] PATIENT NAME: DORY ANDREWS [facility] Dr[facility] Yadav MEDICAL REC #: [id number] [place] [address] ADMIT DATE: DISCHARGE DATE: 06/02/21 ATTENDING PAULY: Tank Ruiz MD ELECTROCARDIOGRAM REPORT Normal [facility] Ewa 06-02-2021 EMERGENCY PHYSICIAN REPORT This is a preliminary report only, as the practitioner review and authentication has not occurred. Normal [facility] ER PHYSICIAN ASSESSMENT RECORDS : FlexChartData Event Time: 06/02/2021 17:35 Status: Signed [facility] Dory Andrews [[id number]] Attending Physician 2001 Chart (V2b) Chart created at 06/02/2021 17:26 by Tank Ruiz Chart closed at 06/03/2021 00:25 Entry in Emergency Department at 06/02/2021 16:45, departure at 06/02/2021 19:58 Patient Name: Dory Andrews Record Number: [id number] Date: 06/02/2021 17:26 Entered Department at: 06/02/2021 [...] recently saw her primary care doctor at [facility], they thought that [facility] PATIENT NAME: DORY ANDREWS [facility] Dr. 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 Yadav MEDICAL REC #: [id number] [place] [address] EMERGENCY DEPARTMENT REPORT EMERGENCY DEPARTMENT PHYSICIAN speech [...] by EMS, (more content not included)... [facility] IF AMER Greater than 60 Normal [facility] Comment on above: Order Comment: Carlos s: M Performed By: #### L 500.07934, L500.05488, L500.70779 #### [facility] [address] [place] [id number] IF non-AFR AMER Greater than 60 Normal [facility] Comment on above: Order Comment: Jose Guadalupeu s: M Performed By: #### L 500.79258, L500.02661, L500.00732 #### [facility] [address] [place] [address] HCGon 06-02-2021 HCG SER RESULT Negative Normal NEGATIVE [facility] Comment on above: Order Comment: Campu s: M Performed By: #### L 500.03466, L500.45162, L500.53739 #### [facility] [address] [place] [address] TROPONIN Ion 06-02-2021 Troponin I.cardiac [Mass/Vol] 2.5 ng/mL Normal 0-34 [facility] Comment on above: Order Comment: Jose Guadalupeu s: M Result Comment: NOTE NEW NORMAL RANGE DUE TO REAGENT CHANGE This assay uses different antibodies than our current assay, and assays, even by the same hob grinder may recognize different regions of the antibody and cannot be used interchangeably. Expect results of this assay to run higher than the previous assay. Performed By: #### L 550.45323 #### [facility] [address] [place] [address] UA COMPLETEon 06-02-2021 Color (U) Yellow Normal [facility] Comment on above: Order Comment: Campu s: M Performed By: #### L 600.62437 #### [facility] [address] [place], [place] [address] Glucose (U) [Mass/Vol] Negative Normal NORMAL [facility] Comment on above: Order Comment: Campu s: M Performed By: #### L 600.04239 #### [facility] [place] [address] UA APPEARANCE Clear Normal CLEAR [facility] Comment on above: Order Comment: Jose Guadalupeu s: M Performed By: #### L 600.44016 #### [facility] [address] [place] [address] UA BILIRUBIN Negative Normal NEGATIVE [facility] Comment on above: Order Comment: Campu s: M Performed By: #### L 600.07406 #### [facility] [address] [place] [address] UA BLOOD Negative Normal NEGATIVE [facility] Comment on above: Order Comment: Campu s: M Performed By: #### L 600.91791 #### [facility] [address] [place] [address] UA KETONE Negative Normal NEGATIVE [facility] Comment on above: Order Comment: Campu s: M Performed By: #### L 600.23615 #### [facility] [address] [place] [address] UA LK ESTERASE Negative Normal NEGATIVE [facility] Comment on above: Order Comment: Campu s: M Performed By: #### L 600.34795 #### [facility] [address] [place] [address] UA NITRITE Negative Normal NEGATIVE [facility] Comment on above: Order Comment: Campu s: M Performed By: #### L 600.99727 #### [facility] [address] [place] [address] UA PH 6.0 Normal 5-6 [facility] Comment on above: Order Comment: Campu s: M Performed By: #### L 600.80241 #### [facility] [address] [place] [address] UA PROTEIN Negative Normal NEGATIVE [facility] Comment on above: Order Comment: Campu s: M Performed By: #### L 600.78791 #### [facility] [address] [place] [address] UA SPEC GRAV 1.013 Normal 1.005-1.030 [facility] Comment on above: Order Comment: Campu s: M Performed By: #### L 600.09691 #### [facility] [address] [place] [address] UA UROBILINOGEN Negative Normal NORMAL [facility] Comment on above: Order Comment: Campu s: M Performed By: #### L 600.58097 #### [facility] [address] [place] [address] UR DRUG ABUSEon 06-02-2021 UR AMPH Negative Normal Lkmrmp=5583 [facility] Comment on above: Order Comment: Campu s: M Performed By: #### L 600.24096 #### [facility] [address] [place] [address] UR LISA Negative Normal Tlzwav=225 [facility] Comment on above: Order Comment: Campu s: M Performed By: #### L 600.59902 #### [facility] [address] [place] [address] UR LIDIA Negative Normal Ohfkso=511 [facility] Comment on above: Order Comment: Campu s: M Performed By: #### L 600.63891 #### [facility] [address] [place] [address] UR ANA/THC Negative Normal Cutoff=50 [facility] Comment on above: Order Comment: Campu s: M Performed By: #### L 600.65244 #### [facility] [address] [place] [address] UR GENESIS Negative Normal Bvhllu=984 [facility] Comment on above: Order Comment: Campu s: M Performed By: #### L 600.75762 #### [facility] [address] [place], [place] [address] UR OPIAT Negative Normal Bmqifp=705 [facility] Comment on above: Order Comment: Campu s: M Performed By: #### L 600.97748 #### [facility] [address] [place] [address] UR PCP Negative Normal Cutoff=25 [facility] Comment on above: Order Comment: Carlos Cancino Performed By: #### L 600.38151 #### [facility] [address] [place], [place] [address] DRAB COMMENT Normal [facility] Comment on above: Order Comment: Carlos quinteros: [...] range (AMR) validation. Performed By: #### L 600.17225 #### [facility] [address] [place] [address] .Auto Diffon 05-27-2021 Basophil, Absolute 0.10 10 3/mcL Normal 0.00-0.27 [facility] ([place]) Comment on above: Performed By: #### A DIFF, CMP, CBC, ERDS, GFR, ANEU #### [address] [address] Basophils/100 WBC (Bld) 0.5 % Normal 0.0-2.5 [facility] ([place]) Comment on above: Performed By: #### A DIFF, CMP, CBC, ERDS, GFR, ANEU #### [address] [address] Eosinophil, Absolute 0.10 10 3/mcL Normal 0.00-0.65 A [facility] ([place]) Comment on above: Performed By: #### A DIFF, CMP, CBC, ERDS, GFR, ANEU #### [address] [address] Eosinophils/100 WBC (Bld) 1.3 % Normal 0.0-6.0 [facility] ([place]) Comment on above: Performed By: #### A DIFF, CMP, CBC, ERDS, GFR, ANEU #### [address] [address] Lymphocyte, Absolute 2.10 10 3/mcL Normal 0.90-4.32 A [facility] ([place]) Comment on above: Performed By: #### A DIFF, CMP, CBC, ERDS, GFR, ANEU #### [address] [address] Lymphocytes/100 WBC (Bld) 22.2 % Normal 20.0-40.0 [facility] ([place]) Comment on above: Performed By: #### A DIFF, CMP, CBC, ERDS, GFR, ANEU #### [address] [address] Monocyte, Absolute 0.70 10 3/mcL Normal 0.09-1.40 [facility] ([place]) Comment on above: Performed By: #### A DIFF, CMP, CBC, ERDS, GFR, ANEU #### [address] [address] Monocytes/100 WBC (Bld) 6.8 % Normal 2.0-13.0 [facility] ([place]) Comment on above: Performed By: #### A DIFF, CMP, CBC, ERDS, GFR, ANEU #### [address] [address] Neutrophils/100 WBC (Bld) 69.2 % Normal 50.0-75.0 [facility] ([place]) Comment on above: Performed By: #### A DIFF, CMP, CBC, ERDS, GFR, ANEU #### [address] [address] .GFRon 05-27-2021 GFR >60 Normal [facility] ([place]) Comment on above: Result Comment: GFR Population [...] DIFF, CMP, CBC, ERDS, GFR, ANEU #### [address] [address] GFR Non- >60 Normal [facility] ([place]) Comment on above: Result Comment: GFR Population [...] DIFF, CMP, CBC, ERDS, GFR, ANEU #### [address] [address] .NEUABSon 05-27-2021 Neutrophil, Absolute 6.70 10 3/mcL Normal 2.25-8.10 A [facility] ([place]) Comment on above: Performed By: #### A DIFF, CMP, CBC, ERDS, GFR, ANEU #### [address] [address] CBCon 05-27-2021 Erythrocyte distribution width (RBC) [Ratio] 13.3 % Normal 11.5-15.5 [facility] ([place]) Comment on above: Performed By: #### A DIFF, CMP, CBC, ERDS, GFR, ANEU #### [address] [address] Hematocrit (Bld) [Volume fraction] 42.0 % Normal 34.0-46.0 [facility] ([place]) Comment on above: Performed By: #### A DIFF, CMP, CBC, ERDS, GFR, ANEU #### [place] [address] Hgb 14.2 G/dL Normal 12.0-16.0 [facility] ([place]) Comment on above: Performed By: #### A DIFF, CMP, CBC, ERDS, GFR, ANEU #### [place] [address] MCH (RBC) [Entitic mass] 32.6 pg Normal 27.0-33.0 [facility] ([place]) Comment on above: Performed By: #### A DIFF, CMP, CBC, ERDS, GFR, ANEU #### [place] [address] MCHC 33.8 G/dL Normal 32.0-36.0 [facility] ([place]) Comment on above: Performed By: #### A DIFF, CMP, CBC, ERDS, GFR, ANEU #### [place] [address] MCV (RBC) [Entitic vol] 96.4 fL Normal 80.0-99.0 [facility] ([place]) Comment on above: Performed By: #### A DIFF, CMP, CBC, ERDS, GFR, ANEU #### [place] [address] Platelet 261 10 3/mcL Normal 150-450 [facility] ([place]) Comment on above: Performed By: #### A DIFF, CMP, CBC, ERDS, GFR, ANEU #### [place] [address] Platelet mean volume (Bld) [Entitic vol] 7.9 fL Normal 6.6-10.5 [facility] ([place]) Comment on above: Performed By: #### A DIFF, CMP, CBC, ERDS, GFR, ANEU #### [place] [address] RBC 4.36 10 6/mcL Normal 4.10-5.30 [facility] ([place]) Comment on above: Performed By: #### A DIFF, CMP, CBC, ERDS, GFR, ANEU #### [address] [address] WBC 9.70 10 3/mcL Normal 4.50-10.80 [facility] ([place]) Comment on above: Performed By: #### A DIFF, CMP, CBC, ERDS, GFR, ANEU #### [place] [address] CMPon 05-27-2021 Albumin Level 4.3 G/dL Normal 3.2-4.8 [facility] ([place]) Comment on above: Performed By: #### A DIFF, CMP, CBC, ERDS, GFR, ANEU #### [place] [address] Albumin/Globulin [Mass ratio] 1.1 {ratio} Normal 0.9-1.6 [facility] ([place]) Comment on above: Performed By: #### A DIFF, CMP, CBC, ERDS, GFR, ANEU #### [place] [address] ALP [Catalytic activity/Vol] 92 U/L Normal 28-126 [facility] ([place]) Comment on above: Performed By: #### A DIFF, CMP, CBC, ERDS, GFR, ANEU #### [place] [address] ALT [Catalytic activity/Vol] 19 U/L Normal 10-49 [facility] ([place]) Comment on above: Performed By: #### A DIFF, CMP, CBC, ERDS, GFR, ANEU #### [place] [address] AST [Catalytic activity/Vol] 16 U/L Normal 8-34 [facility] ([place]) Comment on above: Performed By: #### A DIFF, CMP, CBC, ERDS, GFR, ANEU #### [place] [address] Bili Total 0.3 mg/dL Normal 0.2-1.2 [facility] ([place]) Comment on above: Result Comment: Use of this assay is not recommended for patients undergoing treatment with eltrombopag due to the potential for falsely elevated results. Performed By: #### A DIFF, CMP, CBC, ERDS, GFR, ANEU #### [address] [address] BUN/Creatinine Ratio 15.8 ratio Normal 10.0-22.0 [facility] ([place]) Comment on above: Performed By: #### A DIFF, CMP, CBC, ERDS, GFR, ANEU #### [address] [address] Calcium [Mass/Vol] 9.3 mg/dL Normal 8.4-10.1 [facility] ([place]) Comment on above: Result Comment: No te - New Reference Range in effect 20 Performed By: #### A DIFF, CMP, CBC, ERDS, GFR, ANEU #### [place] [id number] Chloride [Moles/Vol] 107 mmol/L Normal 98-110 [facility] ([place]) Comment on above: Performed By: #### A DIFF, CMP, CBC, ERDS, GFR, ANEU #### [place] [id number] CO2 [Moles/Vol] 26 mmol/L Normal 22-32 [facility] ([place]) Comment on above: Performed By: #### A DIFF, CMP, CBC, ERDS, GFR, ANEU #### [place] [id number] Creatinine [Mass/Vol] 0.76 mg/dL Normal 0.50-1.20 [facility] ([place]) Comment on above: Performed By: #### A DIFF, CMP, CBC, ERDS, GFR, ANEU #### [address] [address] Electrolyte Balance 6.0 mEq/L Normal 4.0-15.0 [facility] ([place]) Comment on above: Performed By: #### A DIFF, CMP, CBC, ERDS, GFR, ANEU #### [address] [address] Globulin 3.8 G/dL Normal 1.5-3.8 [facility] ([place]) Comment on above: Performed By: #### A DIFF, CMP, CBC, ERDS, GFR, ANEU #### [address] [address] Glucose [Mass/Vol] 85 mg/dL Normal 70-110 [facility] ([place]) Comment on above: Performed By: #### A DIFF, CMP, CBC, ERDS, GFR, ANEU #### [address] [address] Potassium [Moles/Vol] 3.8 mmol/L Normal 3.5-5.0 [facility] ([place]) Comment on above: Performed By: #### A DIFF, CMP, CBC, ERDS, GFR, ANEU #### [address] [address] Sodium [Moles/Vol] 139 mmol/L Normal 136-145 [facility] ([place]) Comment on above: Performed By: #### A DIFF, CMP, CBC, ERDS, GFR, ANEU #### [address] [address] Total Protein 8.1 G/dL Normal 6.0-8.5 [facility] ([place]) Comment on above: Result Comment: No te - New Reference Range in effect 20 Performed By: #### A DIFF, CMP, CBC, ERDS, GFR, ANEU #### [address] [address] Urea nitrogen [Mass/Vol] 12.0 mg/dL Normal 8.0-22.0 [facility] ([place]) Comment on above: Performed By: #### A DIFF, CMP, CBC, ERDS, GFR, ANEU #### [address] [address] ERDSon 05-27-2021 Acetaminophen [Mass/Vol] ug/mL Low 10.0-20.0 [facility] ([place]) Comment on above: Performed By: #### A DIFF, CMP, CBC, ERDS, GFR, ANEU #### [address] [address] ER Drug Screen (s) Negative Normal [facility] ([place]) Comment on above: Performed By: #### A DIFF, CMP, CBC, ERDS, GFR, ANEU #### [place] [address] ER Drug Screen Interp Serum shows no evidence of drugs routinely screened Invalid Interpretation Code [facility] ([place]) Comment on above: Performed By: #### A DIFF, CMP, CBC, ERDS, GFR, ANEU #### [place] [address] ER Serum Drugs Screened: See Below Normal [facility] ([place]) Comment on above: Result Comment: This drug screen is a presumptive screening only. No confirmation will be performed unless requested. Drugs included in the ER serum drug screen are: Threshold Ethanol 10.0 mg/dL Salicylate 2.0 mg/dL Acetaminophen 2.0 mcg/mL Tricyclic Antidepressants 300 ng/mL Testing has been performed FOR MEDICAL PURPOSES ONLY. Performed By: #### A DIFF, CMP, CBC, ERDS, GFR, ANEU #### [place] [address] Ethanol Level <10.0 Normal [facility] ([place]) Comment on above: Performed By: #### A DIFF, CMP, CBC, ERDS, GFR, ANEU #### [place] [address] Salicylate Lvl (ds) <3.0 Low 10.0-25.0 [facility] ([place]) Comment on above: Performed By: #### A DIFF, CMP, CBC, ERDS, GFR, ANEU #### [place] [address] TCA (s) Negative Normal [facility] ([place]) Comment on above: Performed By: #### A DIFF, CMP, CBC, ERDS, GFR, ANEU #### [place] [address] LABORATORYOrdered By: Nik New on 05-27-2021 Appearance (U) Hazy (Abnormal) (05/27/21 9:44 PM) [facility] Work Phone: Beta HCG ( test) Ql (U) Negative (05/27/21 9:44 PM) [facility] Work Phone: Bilirubin Urine Dipstick Negative (05/27/21 9:44 PM) [facility] Work Phone: Blood Urine Dipstick Uuz-phvwiydlt-Zurxw (Abnormal) (05/27/21 9:44 PM) [facility] Work Phone: Glucose Urine Dipstick Negative (05/27/21 9:44 PM) [facility] Work Phone: Ketones Urine Dipstick Negative (05/27/21 9:44 PM) [facility] Work Phone: Leukocytes Urine Dipstick 2+ Moderate (Abnormal) (05/27/21 9:44 PM) [facility] [facility] Work Phone: Nitrite Urine Dipstick Negative (05/27/21 9:44 PM) [facility] Work Phone: pH Urine Dipstick 5 (05/27/21 9:44 PM) [facility] Work Phone: Protein Urine Dipstick Negative (05/27/21 9:44 PM) [facility] Work Phone: Specific [place] Urine Dipstick 1.015 (05/27/21 9:44 PM) [facility] Work Phone: Urine Color Urine Dipstick Yellow (05/27/21 9:44 PM) [facility] Work Phone: Urobilinogen Urine Dipstick 0.2 mg/dl (05/27/21 9:44 PM) [facility] Work Phone: LABORATORYOrdered By: Jose Sousa on 05-27-2021 ER U Drug Screen Negative (05/27/21 9:18 PM) Invalid Interpretation Code AH Chemistry S ER U Drug Screen Interp Urine shows no evidence of drugs routinely screened. Invalid Interpretation Code AH Chemistry S U ER Drugs Screened: See Below (05/27/21 9:18 PM) Invalid Interpretation Code Chemistry S LABORATORYOrdered By: Naty Mustafa on 05-27-2021 Acetaminophen [Mass/Vol] mcg/mL Invalid Interpretation Code 10.0 - 20.0 mcg/mL AH ADM SS ER Drug Screen (s) Negative (05/27/21 7:21 PM) Invalid Interpretation Code Chemistry S ER Drug Screen Interp Serum shows no evidence of drugs routinely screened Invalid Interpretation Code Chemistry S ER Serum Drugs Screened: See Below (05/27/21 7:21 PM) Invalid Interpretation Code Chemistry S Ethanol [Mass/Vol] mg/dL Invalid Interpretation Code ADM SS Salicylates [Mass/Vol] mg/dL Invalid Interpretation Code 10.0 - 25.0 mg/dL ADM SS Tricyclic antidepressants Screen Ql Negative Invalid Interpretation Code ADM SS LABORATORYOrdered By: Sunshine Meza on 05-27-2021 Adenovirus DNA YAYO+non-probe Ql (Nph) Not Detected *NA* (05/27/21 7:21 PM) Invalid Interpretation Code Not Detected Auto Viro/Sero SS ADMITTED TO INTENSIVE CARE UNIT FOR CONDITION OF INTEREST:FIND:PT:^PA TIENT:ORD: No (05/27/21 7:21 PM) Invalid Interpretation Code Auto Viro/Sero SS B. pertussis toxin promoter region YAYO+non-probe Ql (Nph) Not Detected *NA* (05/27/21 7:21 PM) Invalid Interpretation Code Not Detected Auto Viro/Sero SS Bordetella Parapertussis Not Detected *NA* (05/27/21 7:21 PM) Invalid Interpretation Code Not Detected Auto Viro/Sero SS C. pneumoniae DNA YAYO+non-probe Ql (Nph) Not Detected *NA* (05/27/21 7:21 PM) Invalid Interpretation Code Not Detected AH Auto Viro/Sero SS EMPLOYED IN A HEALTHCARE SETTING:FIND:PT:^LUCY IENT:ORD: No (05/27/21 7:21 PM) Invalid Interpretation Code AH Auto Viro/Sero SS FIRST TEST FOR CONDITION OF INTEREST:FIND:PT:^PA TIENT:ORD: No (05/27/21 7:21 PM) Invalid Interpretation Code Auto Viro/Sero SS FLUAV RNA YAYO+non-probe Ql (Nph) Not Detected *NA* (05/27/21 7:21 PM) Invalid Interpretation Code Not Detected Auto Viro/Sero SS FLUBV RNA YAYO+non-probe Ql (Nph) Not Detected *NA* (05/27/21 7:21 PM) Invalid Interpretation Code Not Detected AH Auto Viro/Sero SS HAS SYMPTOMS RELATED TO CONDITION OF INTEREST:FIND:PT:^PA TIENT:ORD: Unknown (05/27/21 7:21 PM) Invalid Interpretation Code Auto Viro/Sero SS hMPV RNA YAYO+non-probe Ql (Nph) Not Detected *NA* (05/27/21 7:21 PM) Invalid Interpretation Code Not Detected Auto Viro/Sero SS Illness or injury onset [...] Viro/Sero SS RESIDES IN A CONGREGATE CARE SETTING:FIND:PT:^PAT IENT:ORD: No (05/27/21 7:21 PM) Invalid Interpretation Code Auto Viro/Sero SS Rhinovirus+Enterovir us RNA YAYO+non-probe Ql (Nph) Not Detected *NA* (05/27/21 7:21 PM) Invalid Interpretation Code Not Detected Auto Viro/Sero SS RSV RNA YAYO+non-probe Ql (Nph) Not Detected *NA* (05/27/21 7:21 PM) Invalid Interpretation Code Not Detected AH Auto Viro/Sero SS SARS-CoV-2 (COVID-19) RNA YAYO+probe Ql (Unsp spec) Not Detected *NA* (05/27/21 7:21 PM) Invalid Interpretation Code Not Detected AH Auto Viro/Sero SS LABORATORYOrdered By: SYSTEM SYSTEM [...] Invalid Interpretation Code 4.50 - 10.80 10^3/mcL AH Remisol SS No Panel Informationon 05-27 Culture Urine Culture results pending. [facility] Work Phone: RESCVIDon 05-27-2021 Adenovirus Not detected Normal Not Detected [facility] [place] Comment on above: Performed By: #### A DIFF, CMP, CBC, ERDS, GFR, ANEU #### [place] [address] Bordetella Parapertussis Not detected Normal Not Detected [facility] [place] Comment on above: Performed By: #### A DIFF, CMP, CBC, ERDS, GFR, ANEU #### [address] [address] Bordetella Pertussis Not detected Normal Not Detected [facility] [place] Comment on above: Performed By: #### A DIFF, CMP, CBC, ERDS, GFR, ANEU #### [address] [address] Chlamydophila pneumoniae Not detected Normal Not Detected [facility] [place] Comment on above: Performed By: #### A DIFF, CMP, CBC, ERDS, GFR, ANEU #### [place] [address] Coronavirus 229E (Not COVID-19) Not detected Normal Not Detected [facility] [place] Comment on above: Performed By: #### A DIFF, CMP, CBC, ERDS, GFR, ANEU #### [place] [address] Coronavirus HKU1 (Not COVID-19) Not detected Normal Not Detected [facility] [place] Comment on above: Performed By: #### A DIFF, CMP, CBC, ERDS, GFR, ANEU #### [place] [address] Coronavirus NL63 (Not COVID-19) Not detected Normal Not Detected [facility] [place] Comment on above: Performed By: #### A DIFF, CMP, CBC, ERDS, GFR, ANEU #### [place] [address] Coronavirus OC43 (Not COVID-19) Not detected Normal Not Detected [facility] [place] Comment on above: Performed By: #### A DIFF, CMP, CBC, ERDS, GFR, ANEU #### [place] [address] Date of Onset [id number] Invalid Interpretation Code [facility] [place] Comment on above: Performed By: #### A DIFF, CMP, CBC, ERDS, GFR, ANEU #### [place] [address] Employed in Healthcare No Normal [facility] [place] Comment on above: Performed By: #### A DIFF, CMP, CBC, ERDS, GFR, ANEU #### [place] [address] First Test No Normal [facility] [place] Comment on above: Performed By: #### A DIFF, CMP, CBC, ERDS, GFR, ANEU #### [place] [address] Hospitalized No Normal [facility] [place] Comment on above: Performed By: #### A DIFF, CMP, CBC, ERDS, GFR, ANEU #### [place] [address] Human Metapneumovirus Not detected Normal Not Detected [facility] [place] Comment on above: Performed By: #### A DIFF, CMP, CBC, ERDS, GFR, ANEU #### [place] [address] ICU No Normal [facility] [place] Comment on above: Performed By: #### A DIFF, CMP, CBC, ERDS, GFR, ANEU #### [place] [address] Influenza A Not detected Normal Not Detected [facility] [place] Comment on above: Performed By: #### A DIFF, CMP, CBC, ERDS, GFR, ANEU #### [place] [address] Influenza B Not detected Normal Not Detected [facility] [place] Comment on above: Performed By: #### A DIFF, CMP, CBC, ERDS, GFR, ANEU #### [place] [address] Mycoplasma pneumoniae Not detected Normal Not Detected [facility] [place] Comment on above: Performed By: #### A DIFF, CMP, CBC, ERDS, GFR, ANEU #### [place] [address] Parainfluenza 1 Not detected Normal Not Detected [facility] ([place] Comment on above: Performed By: #### A DIFF, CMP, CBC, ERDS, GFR, ANEU #### [place] [address] Parainfluenza 2 Not detected Normal Not Detected [facility] ([place] Comment on above: Performed By: #### A DIFF, CMP, CBC, ERDS, GFR, ANEU #### [place] [address] Parainfluenza 3 Not detected Normal Not Detected [facility] ([place] Comment on above: Performed By: #### A DIFF, CMP, CBC, ERDS, GFR, ANEU #### [place] [id number] Parainfluenza 4 Not detected Normal Not Detected [facility] ([place] Comment on above: Performed By: #### A DIFF, CMP, CBC, ERDS, GFR, ANEU #### [place] [address] Not Normal [facility] [place] Comment on above: Performed By: #### A DIFF, CMP, CBC, ERDS, GFR, ANEU #### [place] [address] Resides in Congregate Care Setting No Normal [facility] [place] Comment on above: Performed By: #### A DIFF, CMP, CBC, ERDS, GFR, ANEU #### [place] [address] Respiratory Syncytial Virus Not detected Normal Not Detected [facility] [place] Comment on above: Performed By: #### A DIFF, CMP, CBC, ERDS, GFR, ANEU #### [place] [address] Rhinovirus/Enterovir us Not detected Normal Not Detected [facility] [place] Comment on above: Performed By: #### A DIFF, CMP, CBC, ERDS, GFR, ANEU #### [place] [address] SARS-CoV-2 (COVID-19) RNA YAYO+probe Ql (Unsp spec) Not detected Normal Not Detected [facility] [place] Comment on above: Result Comment: This test is being used under the FDA EUA procedure. This assay has been validated in the [facility] for use with nasopharyngeal specimens in [facility]. If a non-validated specimen or [...] DIFF, CMP, CBC, ERDS, GFR, ANEU #### [place] [address] Symptomatic as Defined by CDC Unknown Normal [facility] [place] Comment on above: Performed By: #### A DIFF, CMP, CBC, ERDS, GFR, ANEU #### [place] [id number] U ERDSon 05-27-2021 ER U Drug Screen Negative Normal [facility] [place] Comment on above: Performed By: #### A DIFF, CMP, CBC, ERDS, GFR, ANEU #### [place] [id number] ER U Drug Screen Interp Urine shows no evidence of drugs routinely screened. Invalid Interpretation Code [facility] [place] Comment on above: Performed By: #### A DIFF, CMP, CBC, ERDS, GFR, ANEU #### [place] [id number] U ER Drugs Screened: See Below Normal [facility] ([place]) Comment on above: Result Comment: This drug [...] DIFF, CMP, CBC, ERDS, GFR, ANEU #### [facility] [address] [place] [address] COVID-19Ordered By: Maxwell dorado on 04-02-2021 SARS-CoV-2 (COVID-19) RNA YAYO+probe Ql (Unsp spec) Not detected Not Detected [facility] Work Phone: Comment on above: Not Detected. Expected Result: Not Detected _ Real-time, RT-PCR performed on the [employer] System by the [facility] [employer]. Negative results do not preclude SARS-CoV-2 infection and should not be used as the sole basis for treatment or other patient management decisions. This assay was developed by [employer] and distributed under an Emergency Use Authorization (EUA) granted by the FDA for the qualitative detection of SARS-CoV-2 nucleic acid. Test Performed by [facility], [address] [place] [address] [facility] Work Phone: Comp Panel with Mg Reflexon 04-02-2021 ALP [Catalytic activity/Vol] 61 U/L Normal 38-126 [facility] [employer] [facility] Comment on above: Performed By: #### C MP3M #### [facility] [address] [place], [place] ALT [Catalytic activity/Vol] 11 U/L Normal 0-34 [facility] Comment on above: Result Comment: The ALT test is performed by an updated assay method. Please note that the reference intervals have been changed and are now sex specific. Performed By: #### C MP3M #### [facility] [address] [place], [place] Anion gap [Moles/Vol] 5 mmol/L Normal 3-13 [facility] Comment on above: Performed By: #### C MP3M #### [facility] [place] [address] [address] [place], [place] AST [Catalytic activity/Vol] 20 U/L Normal 15-46 [facility] Comment on above: Performed By: #### C MP3M #### [facility] [address] [place], [place] Bilirubin [Mass/Vol] 0.3 mg/dL Normal 0.2-1.[address] [facility] Comment on above: Performed By: #### C MP3M #### [facility] [address] [place], [place] Calcium [Mass/Vol] 8.4 mg/dL Normal 8.4-10.4 [facility] Comment on above: Performed By: #### C MP3M #### [facility] [address] [place], [place] CO2 [Moles/Vol] 21 mmol/L Low 22-30 [facility] Comment on above: Performed By: #### C MP3M #### [facility] [address], [place] Creatinine [Mass/Vol] 0.64 mg/dL Normal 0.52-1.25 [facility] Comment on above: Performed By: #### C MP3M #### [facility] [address] [place], [place] eGFR OTHER > 90.0 Normal >60 [facility] Comment on above: Result Comment: KDIG O [...] secretion. Performed By: #### C MP3M #### [facility] [address] [place], [place] GFR/1.73 sq M.predicted among blacks MDRD (S/P/Bld) [Vol rate/Area] mL/min/{1.73_m2} Normal >60 [facility] Comment on above: Performed By: #### C MP3M #### [facility] [address] [place], [place] Glucose [Mass/Vol] 84 mg/dL Normal 70-100 [facility] Comment on above: Performed By: #### C MP3M #### [place] [address] [address] [place], [place] Protein [Mass/Vol] 6.1 g/dL Low 6.3-8.2 [facility] Comment on above: Performed By: #### C MP3M #### [place] [address] [address] [place], [place] Urea nitrogen [Mass/Vol] 7 mg/dL Low 9-20 [facility] Comment on above: Performed By: #### C MP3M #### [place] [address] [address] [place], [place] Albumin [Mass/Vol] 3.6 g/dL Normal 3.5-5.0 [facility] Comment on above: Performed By: #### C MP3M #### [place] [address] [address] [place], [place] Potassium [Moles/Vol] 3.9 mmol/L Normal 3.5-5.1 [facility] Comment on above: Performed By: #### C MP3M #### [place] [address] [address] [place], [place] Sodium [Moles/Vol] 136 mmol/L Normal 135-145 [facility] Comment on above: Performed By: #### C MP3M #### [place] [address] [address] [place], [place] Chloride [Moles/Vol] 110 mmol/L High 98-[address] [facility] Comment on above: Performed By: #### C MP3M #### [place] [address] [place] [address] Comprehensive Metabolic Pane l w/ Reflex to MGOrdered By: Сергей Murguia on 04-02-2021 Albumin [Mass/Vol] 3.6 g/dL 3.5 - 5.0 g/dL [facility] Work Phone: [phone] ALP (Bld) [Catalytic activity/Vol] 61 U/L 38 - 126 U/L [facility] Work Phone: [phone] ALT [Catalytic activity/Vol] 11 U/L 0 - 34 U/L [facility] Work Phone: [phone] Comment on above: The ALT test is perf ormed by an updated assay method. Please note that the reference intervals have been changed and are now sex specific. Anion gap [Moles/Vol] 5 mmol/L 3 - 13 mmol/L [facility] Work Phone: [phone] AST [Catalytic activity/Vol] 20 U/L 15 - 46 U/L [facility] Work Phone: [phone] Bilirubin [Mass/Vol] 0.3 mg/dL 0.2 - 1 .3 mg/dL [facility] Work Phone: [phone] Calcium [Mass/Vol] 8.4 mg/dL 8.4 - 10. 4 mg/dL [facility] Work Phone: [phone] Chloride [Moles/Vol] 110 mmol/L High 98 - 10 7 mmol/L [facility] Work Phone: [phone] CO2 [Moles/Vol] 21 mmol/L Low 22 - 30 mmol/L [facility] Work Phone: [phone] Creatinine [Mass/Vol] 0.64 mg/dL 0.52 - 1.25 mg/dL [facility] Work Phone: [phone] EGFR IF NonAfrican [place]err[place]ian >90.0 >60 mL/min [facility] Work Phone: [phone] Comment on above: KDIGO guidelines pro vide [...] 6.1 g/dL Low 6.3 - 8.2 g/dL [facility] Work Phone: [phone] GFR/1.73 sq M.predicted among blacks MDRD (S/P/Bld) [Vol rate/Area] mL/min/{1.73_m2} >60 mL/min [facility] Work Phone: Glucose [Mass/Vol] 84 mg/dL 70 - 100 mg/dL [facility] Work Phone: Interpretation and review of laboratory results Abnormal [facility] Work Phone: [phone] Potassium [Moles/Vol] 3.9 mmol/L 3.5 - 5.1 mmol/L [facility] Work Phone: Sodium [Moles/Vol] 136 mmol/L 135 - 145 mmol/L [facility] Work Phone: Urea nitrogen (BldV) [Mass/Vol] 7 mg/dL Low 9 - 20 mg/dL [facility] Work Phone: Test Performed by [facility] [employer] [facility], [address] [place] [address] [facility] Work Phone: [facility] Work Phone: Drugs of Abuseon 04-02-2021 Phencyclidine (PCP), Ur Negative Normal [facility] Comment on above: Result Comment: The expected [...] order. Performed By: #### D RGA4 #### [facility] [address] [facility] [place] [address] Opiates, Ur Negative Normal [facility] Comment on above: Performed By: #### D RGA4 #### [facility] [address] [facility] [place] [address] Cocaine, Ur Negative Normal [facility] Comment on above: Performed By: #### D RGA4 #### [facility] [address] [facility] [place] [address] Methadone, Ur Negative Normal [facility] Comment on above: Performed By: #### D RGA4 #### [facility] [address] [facility] [place] [address] Benzodiazepines, Ur Negative Normal [facility] Comment on above: Performed By: #### D RGA4 #### [facility] [address] [facility] [place] [address] Amphetamines, Ur Negative Normal [facility] Comment on above: Performed By: #### D RGA4 #### [facility] [address] [facility] [place] [address] Barbiturates, Ur Negative Normal [facility] Comment on above: Performed By: #### D RGA4 #### [facility] [address] [facility] [place] [address] Oxycodone/Oxymorphin e,Ur Negative Normal [facility] Comment on above: Performed By: #### D RGA4 #### [facility] [address] [facility] [place] [address] FENTANYL, URINEOrdered By: Tim Cramer on 04-02-2021 Fentanyl Negative Negative NA [facility] Work Phone: Comment on above: Fentanyl has been sc reened for by Immunoassay at a 2ng/ml threshold. POSITIVE results are not confirmed by a more specific alternative method unless requested. If confirmation is needed, request confirmation under separate order. NOTE: These results are for medical treatment only. Analysis performed using non-forensic procedures. Test Performed by [facility], [address] [place] [address] [facility] Work Phone: [facility] Work Phone: Fentanyl Screen, Urineon Fentanyl Screen, Urn Negative Normal Negative [facility] Comment on above: Result Comment: Fent anyl has been screened for by Immunoassay at a 2ng/ml threshold. POSITIVE results are not confirmed by a more specific alternative method unless requested. If confirmation is needed, request confirmation under separate order. NOTE: These results are for medical treatment only. Analysis performed using non-forensic procedures. Performed By: #### F ENTU #### [facility] [address] [place] [address] [id number] 04-02-2021 SARS-CoV-2 (COVID-19) RNA YAYO+probe Ql (Unsp spec) SARS-CoV-2 --> Status: F Not Detected. Expected Result: Not Detected _ Real-time, RT-PCR performed on the [employer] System by the [facility]. Negative results do not preclude SARS-CoV-2 infection and should not be used as the sole basis for treatment or other patient management decisions. This assay was developed by [employer] and distributed under an Emergency Use Authorization (EUA) granted by the FDA for the qualitative detection of SARS-CoV-2 nucleic acid. Expected Result: Not Detected _ Real-time, RT-PCR performed on the [employer] System by the [facility] [employer] [facility]. Negative results do not preclude SARS-CoV-2 infection and should not be used as the sole basis for treatment or other patient management decisions. This assay was developed by [employer] and distributed under an Emergency Use Authorization (EUA) granted by the FDA for the qualitative detection of SARS-CoV-2 nucleic acid. Normal [facility] Comment on above: Performed By: #### C OVID #### [facility] [address] [place] [address] Comp Metabolic Panelon 04-01 ALP [Catalytic activity/Vol] 71 U/L Normal 38-126 [facility] Comment on above: Performed By: #### C MP3, QWAL2, HEMDF, ETOH4 #### [facility] [address] [place], [place] ALT [Catalytic activity/Vol] 14 U/L Normal 0-34 [facility] Comment on above: Result Comment: The ALT test is performed by an updated assay method. Please note that the reference intervals have been changed and are now sex specific. Performed By: #### C MP3, QWAL2, HEMDF, ETOH4 #### [facility] [address] [place], [place] Anion gap [Moles/Vol] 10 mmol/L Normal 3-13 [facility] Comment on above: Performed By: #### C MP3, QWAL2, HEMDF, ETOH4 #### [place] [address] [address] [place], [place] AST [Catalytic activity/Vol] 25 U/L Normal 15-46 [facility] Comment on above: Performed By: #### C MP3, QWAL2, HEMDF, ETOH4 #### [place] [address] [address] [place], [place] Bilirubin [Mass/Vol] 0.3 mg/dL Normal 0.2-1.[address] [facility] Comment on above: Performed By: #### C MP3, QWAL2, HEMDF, ETOH4 #### [place] [address] [address] [place], [place] Calcium [Mass/Vol] 9.3 mg/dL Normal 8.4-10.4 [facility] Comment on above: Performed By: #### C MP3, QWAL2, HEMDF, ETOH4 #### [place] [address] [address] [place], [place] CO2 [Moles/Vol] 22 mmol/L Normal 22-30 [facility] Comment on above: Performed By: #### C MP3, QWAL2, HEMDF, ETOH4 #### [place] [address] [address] [place], [place] Glucose [Mass/Vol] 94 mg/dL Normal 70-100 [facility] Comment on above: Performed By: #### C MP3, QWAL2, HEMDF, ETOH4 #### [place] [address] [place], [place] Protein [Mass/Vol] 7.3 g/dL Normal 6.3-8.2 [facility] Comment on above: Performed By: #### C MP3, QWAL2, HEMDF, ETOH4 #### [facility] [address] [place], [place] Urea nitrogen [Mass/Vol] 10 mg/dL Normal 9-20 [facility] Comment on above: Performed By: #### C MP3, QWAL2, HEMDF, ETOH4 #### [place] [address] [place], [place] Creatinine [Mass/Vol] 0.72 mg/dL Normal 0.52-1.25 [facility] Comment on above: Performed By: #### C MP3, QWAL2, HEMDF, ETOH4 #### [place] [address] [place], [place] eGFR OTHER > 90.0 Normal >60 [facility] Comment on above: Result Comment: KDIG O [...] #### C MP3, QWAL2, HEMDF, ETOH4 #### [facility] [address] [place], [place] GFR/1.73 sq M.predicted among blacks MDRD (S/P/Bld) [Vol rate/Area] mL/min/{1.73_m2} Normal >60 [facility] Comment on above: Performed By: #### C MP3, QWAL2, HEMDF, ETOH4 #### [facility] [address] [place] [address] Albumin [Mass/Vol] 4.5 g/dL Normal 3.5-5.0 [facility] Comment on above: Performed By: #### C MP3, QWAL2, HEMDF, ETOH4 #### [place] [address] [address] [place], [place] Chloride [Moles/Vol] 108 mmol/L High 98-[address] [facility] Comment on above: Performed By: #### C MP3, QWAL2, HEMDF, ETOH4 #### [place] [address] [address] [place], [place] Potassium [Moles/Vol] 4.0 mmol/L Normal 3.5-5.1 [facility] Comment on above: Performed By: #### C MP3, QWAL2, HEMDF, ETOH4 #### [place] [address] [address] [place], [place] Sodium [Moles/Vol] 140 mmol/L Normal 135-145 [facility] Comment on above: Performed By: #### C MP3, QWAL2, HEMDF, ETOH4 #### [place] [address] [address] [place], [place] Comprehensive Metabolic Pane lOrdered By: Lea Vences on 04-01-2021 Albumin [Mass/Vol] 4.5 g/dL 3.5 - 5.0 g/dL [facility] Work Phone: ALP (Bld) [Catalytic activity/Vol] 71 U/L 38 - 126 U/L [facility] Work Phone: ALT [Catalytic activity/Vol] 14 U/L 0 - 34 U/L [facility] Work Phone: Comment on above: The ALT test is perf ormed by an updated assay method. Please note that the reference intervals have been changed and are now sex specific. Anion gap [Moles/Vol] 10 mmol/L 3 - 13 mmol/L [facility] Work Phone: AST [Catalytic activity/Vol] 25 U/L 15 - 46 U/L [facility] Work Phone: Bilirubin [Mass/Vol] 0.3 mg/dL 0.2 - 1 .3 mg/dL [facility] Work Phone: Calcium [Mass/Vol] 9.3 mg/dL 8.4 - 10. 4 mg/dL [facility] Work Phone: Chloride [Moles/Vol] 108 mmol/L High 98 - 10 7 mmol/L [facility] Work Phone: CO2 [Moles/Vol] 22 mmol/L 22 - 30 mmol/L [facility] Work Phone: Creatinine [Mass/Vol] 0.72 mg/dL 0.52 - 1.25 mg/dL [facility] Work Phone: EGFR IF NonAfrican [place] >90.0 >60 mL/min [facility] Work Phone: Comment on above: KDIGO guidelines [...] fraction] 7.3 g/dL 6.3 - 8.2 g/dL [facility] Work Phone: GFR/1.73 sq M.predicted among blacks MDRD (S/P/Bld) [Vol rate/Area] mL/min/{1.73_m2} >60 mL/min [facility] Work Phone: Glucose [Mass/Vol] 94 mg/dL 70 - 100 mg/dL [facility] Work Phone: Interpretation and review of laboratory results Abnormal [facility] Work Phone: Potassium [Moles/Vol] 4.0 mmol/L 3.5 - 5.1 mmol/L [facility] Work Phone: Sodium [Moles/Vol] 140 mmol/L 135 - 145 mmol/L [facility] Work Phone: Urea nitrogen (BldV) [Mass/Vol] 10 mg/dL 9 - 20 mg/dL [facility] Work Phone: ED Provider Noteon 1 ED Provider Note [facility] EMERGENCY DEPARTMENT ENCOUNTER Pt Name: Dory Andrwes Birthdate 2000 Date of evaluation: 04/01/2021 Provider: Maxwell Cramer PA-C CHIEF COMPLAINT Chief Complaint Patient presents with ? Addiction Problem Pt would like detox from etoh. pt states last drink was 5 days ago and has been going through [facility] [employer]. Pt states she has been having chills, nausea, vomiting, insomnia, and shaking. HISTORY OF PRESENT ILLNESS (Location/Symptom, Timing/Onset, Context/Setting, Quality, Duration, Modifying Factors, Severity) Note limiting factors. HPI I wore an N95 mask. Dory Andrews is a 20 y.o. female who presents to the emergency department for evaluation of alcohol detoxification and wanting inpatient detox. Patient states that she called [facility] and was told that they do not [...] like crap ever since. Patient is from [place] and was told to come here for [...] otherwise acutely negative except as in the APACHE. PAST MEDICAL HISTORY History reviewed. No pertinent [...] Gatherings with Friends and Family: ? Attends Islam Services: ? Active Member of Clubs or [...] ?C) Temporal 92 18 95 % 5' 1" (1.549 m) 135 lb (61.2 kg) Physical [...] No fr (more content not included)... Normal [facility] ED Provider Note Emergency Department Encounter [facility] EMERGENCY DEPT Patient: Dory Andrews : 2000 Date of Evaluation: 04/01/2021 ED Provider: Lea Vences PA-C As the [id number], I performed a medical screening history and [...] drink 5 days ago. Patient is from [place], was told that [facility] had beds on Thursday. PHYSICAL EXAM ED Triage Vitals Enc Vitals Group BP 04/01/212022 117/71 Heart Rate 04/01/212022 92 Resp 04/01/212022 18 Temp 04/01/212022 98.7 ?F (37.1 ?C) Temp Source 04/01/212022 Temporal SpO2 04/01/212022 95 % Weight - Scale 04/01/212022 135 lb (61.2 kg) Height 04/01/212022 5' 1" (1.549 m) Head Circumference -- Peak Flow -- Pain Score -- Pain Loc -- Pain Edu? -- Excl. in GC? -- On brief exam, patient is ill-appearing. Responding appropriately to questions. Heart is regular rate and rhythm. Lungs good auscultation bilaterally. No obvious tremors noted to extremities. Did advise patient that there are no [facility] detox beds at this time. Patient requesting for symptomatic treatment at this time. She is willing to wait for labs, treatment. We will initiate diagnostics/treatments as indicated and place in main ED as soon as available. (Alice) Lea Vences PA-C [employer] Lea Vences PA-C 04/01/212046 [facility] ED Provider Note Chief Complaint Patient presents with ? Addiction Problem Pt would like detox from etoh. pt states last drink was 5 days ago and has been going through [employer]. Pt states she has been having chills, [...] consistent with some very mild alcohol withdrawal. [facility] unfortunately is full in the detoxification unit. [...] clarification. Ting Crook MD 04/02/21 0014 Normal [facility] EthanolOrdered By: Lea Vences on 04-01-2021 Ethanol Lvl <0.010 0.000 - 0.010 g/dL [facility] Work Phone: Comment on above: NOTE: This result is for medical treatment only. Analysis performed using non-forensic procedures. Ethanol Serum/Plasmaon 04-01 Ethanol-Serum/Plasma < 0.010 Normal 0.000-0.010 [facility] Comment on above: Result Comment: NOTE : This result is for medical treatment only. Analysis performed using non-forensic procedures. Performed By: #### C MP3, QWAL2, HEMDF, ETOH4 #### [address] [phone] HCG Qualitative, SerumOrdere d By: Lea Vences on 04-01-2021 hCG Qual Negative [facility] Work Phone: Comment on above: Reference Range: NEG ATIVE Effective 09/23/2019, the reference interval for the qualitative test has been updated. This test detects hCG at concentrations of 10 mIU/L or greater in serum. Test Performed by [facility], [address] [place] [address] [facility] Work Phone: [facility] Work Phone: Hemogram (CBC) w/Auto DiffOr dered By: Lea Vences on 04-01-2021 Absolute Baso # 0.0 10*3/uL 0.0 - 0.2 10*3/uL [facility] Work Phone: [phone] Absolute Neut # 5.2 10*3/uL 1.8 - 7.0 10*3/uL [facility] Work Phone: ) 222 Basophils/100 WBC (Bld) 0.3 % 0.0 - 2.0 % [facility] Work Phone: [phone] 222 Eosinophils (Bld) [#/Vol] 0.1 10*3/uL 0.0 - 0.5 10*3/uL [facility] Work Phone: [phone]) 222 Eosinophils/100 WBC (Bld) 0.8 % Low 1.0 - 6.0 % [facility] Work Phone: ) 222 Granulocytes/100 WBC (Bld) 64.5 % 40.0 - 80.0 % [facility] Work Phone: Hematocrit (Bld) [Volume fraction] 41.1 % 35.0 - 47.0 % [facility] Work Phone: [phone] Hemoglobin.gastroint estinal spec 1 Ql (Stl) 13.9 g/dL 11.7 - 16.0 g/dL [facility] Work Phone: [phone] Interpretation and review of laboratory results Abnormal [facility] Work Phone: [phone] 222 Lymphocytes (Bld) [#/Vol] 2.0 10*3/uL 1.0 - 4.3 10*3/uL [facility] Work Phone: [phone] Lymphocytes/100 WBC (Bld) 24.8 % 20.0 - 40.0 % [facility] Work Phone: [phone] MCH (RBC) [Entitic mass] 32.4 pg 26.0 - 34.0 pg [facility] Work Phone: [phone] MCHC (RBC) [Mass/Vol] 33.9 % 32.0 - 36.0 % [facility] Work Phone: [phone] MCV (RBC) [Entitic vol] 95.5 fL 79.0 - 98.0 fL [employer] Work Phone: [phone] Monocytes (Bld) [#/Vol] 0.8 10*3/uL 0.0 - 0.8 10*3/uL [facility] Work Phone: [phone] Monocytes/100 WBC (Bld) 9.6 % 2.0 - 10.0 % [facility] Work Phone: [phone] Platelet distribution width (Bld) [Ratio] 13.7 % 11.5 - 14.5 % [facility] Work Phone: [phone] Platelet mean volume (Bld) [Entitic vol] 8.3 fL 7.4 - 10.4 fL [facility] Work Phone: [phone] Platelets (Bld) [#/Vol] 233 10*3/uL 140 - 440 10*3/uL [facility] Work Phone: [phone] RBC (Bld) [#/Vol] 4.30 10*6/uL 3.80 - 5.2 0 10*6/uL [facility] Work Phone: [phone] WBC (Bld) [#/Vol] 8.0 10*3/uL 3.6 - 10.7 10*3/uL [facility] Work Phone: [phone] Test Performed by [facility] [employer] [facility], [address] [place] [address] [facility] Work Phone: [phone] [facility] Work Phone: [phone] Hemogram w/ Autodiffon 04-01 Abs Baso Cnt 0.0 10*3/uL Normal 0.0-0.2 [facility] Comment on above: Performed By: #### C MP3, QWAL2, HEMDF, ETOH4 #### [facility] [employer] [address] [place] [phone] Abs Neutrophile Cnt 5.2 10*3/uL Normal 1.8-7.0 [facility] [employer] [facility] Comment on above: Performed By: #### C MP3, QWAL2, HEMDF, ETOH4 #### [facility] [employer] [address] [place] [phone] Basophils/100 WBC (Bld) 0.3 % Normal 0.0-2.0 [facility] Comment on above: Performed By: #### C MP3, QWAL2, HEMDF, ETOH4 #### [place] [address] [address] [place], [place] Eosinophils (Bld) [#/Vol] 0.1 10*3/uL Normal 0.0-0.5 [facility] Comment on above: Performed By: #### C MP3, QWAL2, HEMDF, ETOH4 #### [place] [address] [address] [place], [place] Eosinophils/100 WBC (Bld) 0.8 % Low 1.0-6.0 [facility] Comment on above: Performed By: #### C MP3, QWAL2, HEMDF, ETOH4 #### [address] [place] [address] [place] Erythrocyte distribution width (RBC) [Ratio] 13.7 % Normal 11.5-14.5 [facility] Comment on above: Performed By: #### C MP3, QWAL2, HEMDF, ETOH4 #### [address] Granulocytes/100 WBC (Bld) 64.5 % Normal 40.0-80.0 [facility] Comment on above: Performed By: #### C MP3, QWAL2, HEMDF, ETOH4 #### [place] [address] [place] Hematocrit (Bld) [Volume fraction] 41.1 % Normal 35.0-47.0 [facility] Comment on above: Performed By: #### C MP3, QWAL2, HEMDF, ETOH4 #### [place] [address] [place], [place] Hemoglobin (Bld) [Mass/Vol] 13.9 g/dL Normal 11.7-16.0 [facility] Comment on above: Performed By: #### C MP3, QWAL2, HEMDF, ETOH4 #### [place] [address] [place] Lymphocytes (Bld) [#/Vol] 2.0 10*3/uL Normal 1.0-4.3 [facility] Comment on above: Performed By: #### C MP3, QWAL2, HEMDF, ETOH4 #### [place] [address] [place], [place] Lymphocytes/100 WBC (Bld) 24.8 % Normal 20.0-40.0 [facility] Comment on above: Performed By: #### C MP3, QWAL2, HEMDF, ETOH4 #### [place] [address] [place] MCH (RBC) [Entitic mass] 32.4 pg Normal 26.0-34.0 [facility] Comment on above: Performed By: #### C MP3, QWAL2, HEMDF, ETOH4 #### [address] MCHC 33.9 % Normal 32.0-36.0 [facility] Comment on above: Performed By: #### C MP3, QWAL2, HEMDF, ETOH4 #### [address] MCV (RBC) [Entitic vol] 95.5 fL Normal 79.0-98.0 [facility] Comment on above: Performed By: #### C MP3, QWAL2, HEMDF, ETOH4 #### [address] Monocytes (Bld) [#/Vol] 0.8 10*3/uL Normal 0.0-0.8 [facility] Comment on above: Performed By: #### C MP3, QWAL2, HEMDF, ETOH4 #### [address] Monocytes/100 WBC (Bld) 9.6 % Normal 2.0-10.0 [facility] Comment on above: Performed By: #### C MP3, QWAL2, HEMDF, ETOH4 #### [place] [address] [place] Platelet mean volume (Bld) [Entitic vol] 8.3 fL Normal 7.4-10.4 [facility] Comment on above: Performed By: #### C MP3, QWAL2, HEMDF, ETOH4 #### [address] Platelets (Bld) [#/Vol] 233 10*3/uL Normal 140-440 [facility] Comment on above: Performed By: #### C MP3, QWAL2, HEMDF, ETOH4 #### [address] RBC (Bld) [#/Vol] 4.30 10*6/uL Normal 3.80-5.20 [facility] Comment on above: Performed By: #### C MP3, QWAL2, HEMDF, ETOH4 #### [address] WBC (Bld) [#/Vol] 8.0 10*3/uL Normal 3.6-10.7 [facility] Comment on above: Performed By: #### C MP3, QWAL2, HEMDF, ETOH4 #### [address] No Panel InformationOrdered By: Lea Vences on 04-01-2021 Test Performed by [facility], [address] [place] [address] [facility] Work Phone: [facility] Work Phone: Urine Drug ScreenOrdered By: Lea Vences on 04-01-2021 Amphetamines, urine Negative [facility] Work Phone: Barbiturates, Ur Negative [facility] Work Phone: Benzodiazepine Ur Qual Negative [facility] Work Phone: Cocaine Metabolites, Ur Negative [facility] Work Phone: Methadone, Urine Negative [facility] Work Phone: Opiates, Urine Negative [facility] Work Phone: Oxycodone Screen, Ur Negative [facility] Work Phone: PCP, Urine Negative [facility] Work Phone: Comment on above: The expected [...] confirmation under separate order. Test Performed by [facility], [address] [place] [phone] [facility] Work Phone: [facility] Work Phone: hCG Qual Pregon 04-01-2021 hCG Qual Preg Negative Normal [facility] Comment on above: Result Comment: Refe rence Range: NEGATIVE Effective 09/23/2019, the reference interval for the qualitative test has been updated. This test detects hCG at concentrations of 10 mIU/L or greater in serum. Performed By: #### C MP3, QWAL2, HEMDF, ETOH4 #### [address] [phone] C. trachomatis Amplified Pro beon 01-27-2018 C. [...] evaluated by nucleic acid amplification techniques. Normal [facility] Comment on above: Performed By: #### [facility] ####[address] [phone] GC Amplified Probeon 018 Protein mass conc [...] evaluated by nucleic acid amplification techniques. Normal [facility] Comment on above: Performed By: #### [facility] ####[facility] of [address] [phone] US DUPLEX ABDOMEN PELVIS COM PLETEon 01-27-2018 US DUPLEX ABDOMEN PELVIS COMPLETE CLINICAL HISTORY: IUD placement.TECHNIQUE: Transvaginal márquez scale, color and spectral Doppler ultrasound ofthe [...] Dr. Je Monte at 01/27/2018 19:01 Normal [facility] US TRANSVAGINALon 01-27-2018 US TRANSVAGINAL CLINICAL HISTORY: IU D placement.TECHNIQUE: Transvaginal márquez scale, color and spectral Doppler ultrasound ofthe [...] Dr. Je Monte at 01/27/2018 19:00 Normal [facility] Urinalysis,Automatedon 01-27 Bacteria Moderate Normal [facility] Comment on above: Performed By: #### U [facility] ####[address] [phone] Epithelial cells.squamous LM.HPF #/area (Urine sed) 9 /uL Normal 0-20 [facility] Comment on above: Performed By: #### U [facility] ####[address] [phone] INR Coag RelTime (Bld) 2.0 /uL Normal 0.0-20.0 [facility] Comment on above: Performed By: #### U [facility] ####[address], [place] [phone] Mucous Small Normal [facility] Comment on above: Performed By: #### U [facility] ####[address] [phone] WBC 3.0 /uL Normal 0.0-20.0 [facility] Comment on above: Performed By: #### U [facility] ####[address] [phone] Urinalysis,Completeon 2017 Volume 12 ml Normal 12 [facility] Comment on above: Performed By: #### U [facility] ####[address] [phone] Bilirubin,urine Negative Normal Negative [facility] Comment on above: Performed By: #### U [facility] ####[address] [phone] Character Clear Normal [facility] Comment on above: Performed By: #### U [facility] ####[address] [phone] Color Straw Normal [facility] Comment on above: Performed By: #### U [facility] ####[facility] of [address] [phone] Glucose Ql (U) Negative Normal Negative [facility] Comment on above: Performed By: #### U [facility] ####[facility] of [address] [phone] Hemoglobin Negative Normal Negative [facility] Comment on above: Performed By: #### U [facility] ####[facility] of [address] [phone] Ketones Negative Normal Negative [facility] Comment on above: Performed By: #### U [facility] ####[facility] of [address] [place], [place] [phone] Leukocyte Esterase Negative Normal Negative [facility] Comment on above: Performed By: #### U [facility] ####[facility] of [facility] [place], [place] [phone] Nitrites Negative Normal Negative [facility] Comment on above: Performed By: #### U [facility] ####[facility] of [address] [phone] pH Test strip (U) 6.0 Normal 5.0-8.0 [facility] Comment on above: Performed By: #### U [facility] ####[facility] of [address] [phone] Protein mass conc Negative Normal Neg.-Trace [facility] Comment on above: Performed By: #### U [facility] ####[facility] of [address] [phone] Specific gravity 1.011 Normal 1.005-1.030 [facility] Comment on above: Performed By: #### U ACOM ####[facility] of [address] [phone] Urobilinogen 0.2 mg/dl Normal Negative [facility] Comment on above: Performed By: #### U [facility] ####[facility] of [address] [phone] Comp Metabolic Panelon 01-26 Albumin mass conc 4.8 g/dL High 3.2-4.5 [facility] Comment on above: Performed By: #### U [facility] ####[facility] of [address] [place], [place] [phone] ALP enzyme act/vol 77 U/L Normal 47-119 [facility] Comment on above: Performed By: #### U [facility]COM ####[facility] [place], [place] [phone] ALT enzyme act/vol 9 U/L Normal 0-31 [facility] Comment on above: Performed By: #### U ACOM ####[facility] [place] [phone] AST enzyme act/vol 19 U/L Normal 0-31 [facility] Comment on above: Performed By: #### U [facility]COM ####[facility] of [address] [phone] Bili,Total 1.4 mg/dl High 0.0-1.0 [facility] Comment on above: Result Comment: Juan Antonio ature : 1 Day 1.0-6.0 mg/dl 2 Day 6.0-8.0 mg/dl 3-5 Day 10.0-15.0 mg/dl Performed By: #### U [facility]COM ####[facility] of [address] [phone] Calcium mass conc 9.6 mg/dL Normal 7.6-11.0 [facility] Comment on above: Performed By: #### U [facility]COM ####[facility] of [address] [place], [place] [phone] Chloride molar conc 105 mmol/L Normal 96-108 [facility] Comment on above: Performed By: #### U ACOM ####[facility] of [address] [place], [place] [phone] CO2 molar conc 26.5 mmol/L Normal 22.0-29.0 [facility] Comment on above: Performed By: #### U [facility]COM ####[facility] of [address] [place], [place] [phone] Creatinine mass conc 0.56 mg/dL Normal 0.50-1.[address] [facility] Comment on above: Result Comment: Juan Antonio ature 0.3-1.0 mg/dL Performed By: #### U [facility] ####[address] [phone] Glucose mass conc 81 mg/dL Normal 70-99 [facility] Comment on above: Result Comment: Rell ramirez for Diagnosis of Diabetes(Effective 12/16/10):Fasting specimen (no caloric intake for at least 8 hours). <100 mg/dl Normal 100-125 mg/dl Increased Risk for Diabetes >125 mg/dl Diagnostic for DiabetesRandom Glucose (any time of day without regard to last meal). >=200 mg/dl plus Classic Symptoms of Diabetes Performed By: #### U [facility] ####[address] [phone] Potassium molar conc 4.0 mmol/L Normal 3.3-5.[address] [facility] Comment on above: Performed By: #### U [facility] ####[address] [phone] Protein mass conc 7.6 g/dL Normal 5.9-8.4 [facility] Comment on above: Performed By: #### U [facility] ####[address] [phone] Sodium molar conc 139 mmol/L Normal 133-145 [facility] Comment on above: Performed By: #### U [facility] ####[address] [phone] Urea nitrogen mass conc 6 mg/dL Normal 4-19 [facility] Comment on above: Performed By: #### U [facility] ####[address] [phone] Complete Blood Counton 01-26 Differential Complete Automated Normal [facility] Comment on above: Performed By: #### U [facility] ####[address] [phone] % Neutrophils 64.9 % High 34.0-64.0 [facility] Comment on above: Performed By: #### U [facility] ####[address] [phone] Basophils/100 WBC Auto (Bld) 0.60 % Normal 0.00-1.00 [facility] Comment on above: Performed By: #### U [facility] ####[address] [phone] Eosinophils/100 WBC Auto (Bld) 0.40 % Normal 0.00-3.00 [facility] Comment on above: Performed By: #### U [facility] ####[address] [phone] Erythrocyte distribution width Auto Ratio (RBC) 12.0 % Normal 0.0-14.4 [facility] Comment on above: Performed By: #### U [facility] ####[address] [phone] Hematocrit Auto Volume Fraction (Bld) 44.3 % Normal 37.0-46.0 [facility] Comment on above: Performed By: #### U [facility] ####[address] [phone] Hemoglobin mass conc (Bld) 15.0 g/dL Normal 12.0-15.0 [facility] Comment on above: Performed By: #### U [facility] ####[address] [phone] Immature granulocytes/100 WBC (Bld) 0.30 % Normal [facility] Comment on above: Result Comment: Ciara ture Granulocyte Percent includes promyelocytes, myelocytes,and metamyelocytes. IG% > 1.0 indicates a left shift ispresent. With automated differentials, bands are includedin the neutrophil count and not in the Immature GranulocytePercent. Performed By: #### U [facility] ####[address] [phone] Lymphocytes/100 WBC Auto (Bld) 26.2 % Normal 25.0-45.0 [facility] Comment on above: Performed By: #### U [facility] ####[address] [phone] MCH Auto Entitic mass (RBC) 31.3 pg Normal 25.0-35.0 [facility] Comment on above: Performed By: #### U [facility] ####[address] [phone] MCHC Auto mass conc (RBC) 33.9 % Normal 31.0-37.0 [facility] Comment on above: Performed By: #### U [facility] ####[address] [phone] MCV Auto Entitic volume (RBC) 92.5 fL Normal 78.0-96.0 [facility] Comment on above: Performed By: #### U [facility] ####[address] [phone] Monocytes/100 WBC Auto (Bld) 7.60 % High 3.00-6.00 [facility] Comment on above: Performed By: #### U [facility] ####[address] [phone] Neutrophils Auto #/vol (Bld) 4.4 Normal [facility] Comment on above: Performed By: #### U [facility] ####[address] [phone] Nucleated RBC/100 WBC Ratio (Bld) 0.0 % Normal -1.0-0.0 [facility] Comment on above: Performed By: #### U [facility] ####[address] [phone] Platelet mean volume Auto Entitic volume (Bld) 10.0 fL Normal [facility] Comment on above: Result Comment: MPV is plateletrange and agedependent Performed By: #### U [facility] ####[address] [phone] Platelets Auto #/vol (Bld) 218 10*3/uL Normal 150-450 [facility] Comment on above: Performed By: #### U [facility] ####[address] [phone] RBC Auto #/vol (Bld) 4.79 10E12/L Normal 4.10-4.80 [facility] Comment on above: Performed By: #### U ACOM ####[address] [phone] WBC Auto #/vol (Bld) 6.8 10*3/uL Normal 4.5-13.0 [facility] Comment on above: Performed By: #### U [facility]COM ####[address] [phone] Drugs of Abuse, Urineon 07- Amphetamines Negative Normal Negative [facility] Comment on above: Result Comment: Thre shold = 1000 ng/mL Performed By: #### U [facility] ####[address] [phone] Barbiturates Negative Normal Negative [facility] Comment on above: Result Comment: Thre shold = 200 ng/mL Performed By: #### U [facility]COM ####[facility] [place], [place] [phone] Benzodiazepines Negative Normal Negative [facility] Comment on above: Result Comment: Thre shold = 200 ng/mL Performed By: #### U ACOM ####[facility] of [address] [facility], [phone] Cocaine Negative Normal Negative [facility] Comment on above: Result Comment: Thre shold = 300 ng/mL Performed By: #### U ACOM ####[facility] [place], [phone] Methadone Negative Normal Negative [facility] Comment on above: Result Comment: Thre shold = 300 ng/mL Performed By: #### U ACOM ####[facility] of [address] [facility], [phone] Opiates Negative Normal Negative [facility] Comment on above: Result Comment: Thre shold = 300 ng/mL Performed By: #### U ACOM ####[facility] [address] [facility], [phone] Oxycodone Negative Normal Negative [facility] Comment on above: Result Comment: Thre shold = 300 ng/mL Performed By: #### U [facility] ####[facility] of [place], [place] [phone] PCP-Phencyclidine Negative Normal Negative [facility] Comment on above: Result Comment: Thre shold = 25 ng/mL Performed By: #### U [facility]COM ####[address] [phone] YESSY Test Comment ----- Normal [facility] Comment on above: Result Comment: Note : This testing is intended for medical management andtreatment only. Analysis performed using non-forensicprocedures. Performed By: #### U [facility]COM ####[address] [phone] HCG,Urineon 01-26-2018 HCG.beta subunit ( test) Ql (U) Negative Normal [facility] [facility] Comment on [facility]: Result Comment: Nonp regnant females and males-Negative females-Positive Performed By: #### H CGUR ####[address] [phone] Magnesiumon 01-26-2018 Magnesium mass conc 1.9 mg/dL Normal 1.5-2.2 [facility] Comment on above: Performed By: #### U ACOM ####[address] [phone] Phosphoruson 01-26-2018 Phosphate mass conc 4.1 mg/dL Normal 2.7-4.5 [facility] Comment on above: Performed By: #### U ACOM ####[address] [phone] TSHon 01-26-2018 Thyrotropin Qn 1.713 uIU/mL Normal 0.350-5.500 [facility] Comment on above: Performed By: #### U ACOM ####[address] [phone] eGFRon 01-26-2018 GFR/1.73 sq M.predicted MDRD vol rate/area see below Normal [facility] Comment on above: Result Comment: Refe rence range:> 3 months:>90 ml/min/1.73m^2Ref. Range change azslhvsfc71/26/2018Unable to calculate EGFR; height not available. Performed By: #### U ACOM ####[facility] [place] [phone] ED Provider Progress Noteon 01-25-2018 Wireless Architect Authentication Interface Message Text Dory WiseOB: 2000Chief ComplaintPatient presents with P.I.R.C.No Known AllergiesDOS: 01/25/2018Patient is a 17 y.o. female who presents to the ED with CC of suicidal ideation.Patient endorses depression and SI for the past month. States she has beenlooking up the "lethal doses" of her medications. Did not actually takeanything. Did cut herself on wrist one week ago. SeenStates she has been struggling with her eating disorder, has never seen anyonefor this and has never been treated. Last purged 1 week ago. Restricts to 200calories a day. Works out a lot as well.Past Psych Hx: anxiety, depression, eating disorderMeds: reviewedPrevious Psych Hosp: has been admitted to 8100Home:iun B custody, lives with grandparents and sisterEdu: [...] for rash.Neurological: Negative for syncope, weakness and headaches.Psychiatric/Beh avioral: Positive for suicidal ideas. The patient isnervous/anxious.All other systems reviewed and are negative.Past Medical History:Diagnosis Date Anxiety Depression Eating disorder Suicidal ideations 03/01/2017 Uncomplicated asthmaHistory reviewed. No pertinent surgical history.Pediatric HistoryPatient Guardian Status Guardian: Sandy Hanley (Legal Guardian)Other Topics Concern Not on fileSocial History Narrative No narrative on fileED Triage VitalsDate and Time Temp Temp src Pulse Resp BP SpO2 Weight User01/25/181944 36.7 C (98.1 F) -- 76 20 [...] reviewed.ProceduresMDMED Course:Diagnosis' considered: depression, anxiety, SI, eating disorderLabs/Radiology:Re sults for orders placed or performed during the [...] were placed in this encounter.Medical Record/Transferring Institution Record:N/ATreatment/Reass essment:Patient presents with SI and is currently endorsing SI. Patient also withbehaviors concerning for eating disorder. Psychiatry would like to have labsdone to endure she is medically stable. CMP, mag, phos and UDS wnl. Urine HCGnegative.Based on HPI, ROS, and PE and lab work, this patient does not appear to haveacute medical diagnosis. Medically Cleared.[facility] team evaluated and decision to admit to [...] not a specific trigger for wanting to today.[CJ]Perico Jan 26 Assessed patient.Physical ExamConstitutional: appears well-developed and well-nourished. No distress.HENT:Nose: Nose normal.Mouth/Throat: Mucous membranes are moist. Oropharynx is clear. Pharynx isnormal.Eyes: Conjunctivae are normal. Pupils are equal, round, and reactive to light.Neck: Normal range of motion. Neck supple. No rigidity or adenopathy.Cardiovascular : Normal rate, regular rhythm, S1 normal and [...] to 8100. [CJ]Medical Decision Making User Index[CJ] Leonardo Kearney, DODiagnosis to highest level of medical certainty/plan:Final diagnoses:[R43.317] Suicidal ideationMina Galeana PGY-373:[id number] AMPager [phone] note:I have reviewed the nursing notes, history [...] Patient was medically cleared for [facility] eval.[facility] recommends admission to 8100. Family verbalized understanding. Allquestions answered. Patient admitted to 8100.Diagnosis to highest level of medical certainty:Final diagnoses:[R45.851] Suicidal ideation[F50.9] Eating disorder[R45.89] Suicidal riskCrystal Maya, DO01/26/201811:29 PM Normal [facility] ED Provider Progress Noteon 07-22-2017 Wireless Architect Authentication Interface Message Text Dory WiseOB: 2000Chief ComplaintPatient presents with P.I.R.C.No Known AllergiesDOS: 07/22/2017Thimustapha is a 16 year old female with history of depression who presents withanxiety. [facility] but lives with her grandmother. Sherecently reported [...] Negative for chest pain, palpitations and leg swelling.Gastrointestinal : Negative for abdominal pain, nausea and vomiting.Musculoskeletal: Negative for arthralgias, neck pain and neck stiffness.Allergic/Immuno logic: Negative for immunocompromised state.Hematological: Does not bruise/bleed easily.Psychiatric/Behavi oral: Positive for agitation. Negative for hallucinations,self-injur y and suicidal ideas. The patient is nervous/anxious.All [...] She exhibits no distension. There is no tenderness.Musculoskeleta l: Normal range of motion.Neurological: She is alert [...] were placed in this encounter.Medical Record/Transferring Institution Record:Treatment/Reassess ment:Medical Decision Making as of Jul 22 2130Wed Jul 22 VSSAF on arrival. NAD. Do not feel she is acutely suicidal. Medicallycleared, and evaluated by [facility] team, who ultimately recommended that patientwould not meet inpatient criteria, and that she has adequate outpatientresources. Caregiver comfortable with plan. Safety plan outlined and provided.Patient stable for discharge. [BB]Medical Decision Making User Index[BB] Pamela Louosis to highest level of medical certainty/plan: anxiety [...] signed:10:10 PM 07/22/17 Georgina Cr MD Normal [facility] Comp Metabolic Panelon 06-01 Albumin mass conc 4.6 g/dL High 3.2-4.5 [facility] Comment on above: Performed By: #### C MP ####[address] [phone] ALP enzyme act/vol 83 U/L Normal 47-119 [facility] Comment on above: Performed By: #### C MP ####[address] [phone] ALT enzyme act/vol 14 U/L Normal 0-31 [facility] Comment on above: Performed By: #### C MP ####[address] [phone] AST enzyme act/vol 18 U/L Normal 0-31 [facility] Comment on above: Performed By: #### C MP ####[address] [phone] Bili,Total 1.4 mg/dl High 0.0-1.0 [facility] Comment on above: Result Comment: Juan Antonio ature : 1 Day 1.0-6.0 mg/dl 2 Day 6.0-8.0 mg/dl 3-5 Day 10.0-15.0 mg/dl Performed By: #### C MP ####[address] [phone] Calcium mass conc 9.2 mg/dL Normal 7.6-11.0 [facility] Comment on above: Performed By: #### C MP ####[address] [phone] Chloride molar conc 105 mmol/L Normal 96-108 [facility] Comment on above: Performed By: #### C MP ####[address] [phone] CO2 molar conc 24.3 mmol/L Normal 22.0-29.0 [facility] Comment on above: Performed By: #### C MP ####[address] [phone] Creatinine mass conc 0.70 mg/dL Normal 0.50-1.[address] [facility] Comment on above: Result Comment: Juan Antonio ature 0.3-1.0 mg/dL Performed By: #### C MP ####[address] [phone] Glucose mass conc 82 mg/dL Normal 70-99 [facility] Comment on above: Result Comment: Rell ramirez for Diagnosis of Diabetes(Effective 12/16/10):Fasting specimen (no caloric intake for at least 8 hours). <100 mg/dl Normal 100-125 mg/dl Increased Risk for Diabetes >125 mg/dl Diagnostic for DiabetesRandom Glucose (any time of day without regard to last meal). >=200 mg/dl plus Classic Symptoms of Diabetes Performed By: #### C MP ####[facility] of [address] [phone] Potassium molar conc 3.8 mmol/L Normal 3.3-5.[address] [facility] Comment on above: Performed By: #### C MP ####[facility] of [address] [phone] Protein mass conc 7.5 g/dL Normal 5.9-8.4 [facility] Comment on above: Performed By: #### C MP ####[address] [phone] Sodium molar conc 137 mmol/L Normal 133-145 [facility] Comment on above: Performed By: #### C MP ####[facility] of [address] [phone] Urea nitrogen mass conc 12 mg/dL Normal 4-19 [facility] Comment on above: Performed By: #### C MP ####[facility] of [address] [phone] Complete Blood Counton 06-01 Differential Complete Automated Normal [facility] Comment on above: Performed By: #### C BC ####[facility] of [address] [phone] % Neutrophils 54.4 % Normal 34.0-64.0 [facility] Comment on above: Performed By: #### C BC ####[address] [phone] Basophils/100 WBC Auto (Bld) 1.00 % Normal 0.00-1.00 [facility] Comment on above: Performed By: #### C BC ####[address] [phone] Eosinophils/100 WBC Auto (Bld) 2.62 % Normal 0.00-3.00 [facility] Comment on above: Performed By: #### C BC ####[facility] of [address] [phone] Erythrocyte distribution width Auto Ratio (RBC) 11.0 % Normal 0.0-14.4 [facility] Comment on above: Performed By: #### C BC ####[facility] of [address] [phone] Hematocrit Auto Volume Fraction (Bld) 44.4 % Normal 37.0-46.0 [facility] Comment on above: Performed By: #### C BC ####[facility] of [address] [phone] Hemoglobin mass conc (Bld) 15.0 g/dL Normal 12.0-15.0 [facility] Comment on above: Performed By: #### C BC ####[address] [phone] Lymphocytes/100 WBC Auto (Bld) 32.3 % Normal 25.0-45.0 [facility] Comment on above: Performed By: #### C BC ####[address] [phone] MCH Auto Entitic mass (RBC) 33.1 pg Normal 25.0-35.0 [facility] Comment on above: Performed By: #### C BC ####[address] [phone] MCHC Auto mass conc (RBC) 33.7 % Normal 31.0-37.0 [facility] Comment on above: Performed By: #### C BC ####[address] [phone] MCV Auto Entitic volume (RBC) 98.0 fL High 78.0-96.0 [facility] Comment on above: Performed By: #### C BC ####[address] [phone] Monocytes/100 WBC Auto (Bld) 9.67 % High 3.00-6.00 [facility] Comment on above: Performed By: #### C BC ####[address] [phone] Neutrophils Auto #/vol (Bld) 4.2 Normal [facility] Comment on above: Performed By: #### C BC ####[address] [phone] Platelet mean volume Auto Entitic volume (Bld) 7.1 fL Normal [facility] Comment on above: Result Comment: MPV is plateletrange and agedependent Performed By: #### C BC ####[address] [phone] Platelets Auto #/vol (Bld) 231 10*3/uL Normal 150-450 [facility] Comment on above: Performed By: #### C BC ####[place] [phone] RBC Auto #/vol (Bld) 4.53 10E12/L Normal 4.10-4.80 [facility] Comment on above: Performed By: #### C BC ####[place] [phone] WBC Auto #/vol (Bld) 7.8 10*3/uL Normal 4.5-13.0 [facility] Comment on above: Performed By: #### C BC ####[address] [phone] TSHon 06-01-2017 Thyrotropin Qn 1.076 uIU/mL Normal 0.350-5.500 [facility] Comment on above: Performed By: #### T SH ####[address] [phone] Drugs of Abuse with THC, Uri neon 05-31-2017 Amphetamines Negative Normal Negative [facility] Comment on above: Result Comment: Thre shold = 1000 ng/mL Performed By: #### D RGT ####[address] [phone] Barbiturates Negative Normal Negative [facility] Comment on above: Result Comment: Thre shold = 200 ng/mL Performed By: #### Alfonso RGT ####[facility] of [place], [phone] Benzodiazepines Negative Normal Negative [facility] Comment on above: Result Comment: Thre shold = 200 ng/mL Performed By: #### Alfonso RGT ####[facility] of [address] [place], [phone] Cocaine Negative Normal Negative [facility] Comment on above: Result Comment: Thre shold = 300 ng/mL Performed By: #### Alfonso RGT ####[facility] [place], [phone] Methadone Negative Normal Negative [facility] Comment on above: Result Comment: Thre shold = 300 ng/mL Performed By: #### Alfonso RGT ####[facility] of [address] [facility], [phone] Opiates Negative Normal Negative [facility] Comment on above: Result Comment: Thre shold = 300 ng/mL Performed By: #### Alfonso RGT ####[facility] [address] [place], [phone] Oxycodone Negative Normal Negative [facility] Comment on above: Result Comment: Thre shold = 300 ng/mL Performed By: #### D RGT ####[facility] of [facility] [place], [phone] PCP-Phencyclidine Negative Normal Negative [facility] Comment on above: Result Comment: Thre shold = 25 ng/mL Performed By: #### D RGT ####[address] [phone] THC50, Urine Negative Normal Negative [facility] Comment on above: Result Comment: Thre shold = 50 ng/mL Performed By: #### D RGT ####[address] [phone] YESSY Test Comment ----- Normal [facility] Comment on above: Result Comment: Note : This testing is intended for medical management andtreatment only. Analysis performed using non-forensicprocedures. Performed By: #### D RGT ####[address] [phone] ED Provider Progress Noteon 05-31-2017 Wireless Architect Authentication Interface Message Text Dory WiseOB: 2000Chief ComplaintPatient presents with P.I.R.C.No Known AllergiesDOS: 05/31/2017Dory Andrews is a 16y/o girl who presents w/ SI that began "a few weeks ago".She was recently placed in the custody of his grandmother after her mother had aTBI from a car accident. Since the event the mothers personality has changeddrastically since that time. She has been making youtube videos about how "crazyI am" per the daughter. Her friends have open [...] change and rash.Neurological: Negative for dizziness and syncope.Psychiatric/Behav ioral: Positive for dysphoric mood and suicidal ideas. [...] has no rales.Abdominal: Soft. She exhibits no distension.Musculoskeleta l: Normal range of motion. She exhibits no edema or deformity.Neurological: She is alert and oriented to person, place, and time.Skin: Skin is warm. Capillary refill takes less than 2 seconds. She is notdiaphoretic. No pallor.Small superficial linear scarring to the B/L ventral forearms. No recent cuts.Psychiatric: She has a normal mood and affect. Her behavior is normal.Nursing note and vitals reviewed.ProceduresMDMNum jarrod of Diagnoses or Management OptionsDiagnosis management comments: Pt seen and examined. Continues to be suicidalbut does not have plan. She denies current attempt to harm herself and noevidence was found on physical exam.Pt is medically cleared. Recommend that the pt be evaluated by [facility] in the AM.Pt signed out to Dr. Malcolm.ED Course:Diagnosis' considered: mood disorderLabs/Radiology:Co nsults: No orders of the defined types were placed in this encounter.Medical Record/Transferring Institution Record:Treatment/Reassess ment:Medical Decision Making as of May 31 0959Sun May 31, [id number] Dispo per [facility] [OE]0918 Pt was signed out at & am from Dr bolton. Pt was evaluated by [facility]. Pt wasadmitted for further management per [facility] recommendation. [OE]2448 Patient signed our from previous resident. Disposition for [facility] per[facility] recommendations. Admit to psych. [DB]Medical Decision Making User Index[DB] Wu Russell MD[OE] Cate Broderick El Assal, MDDiagnosis to highest level of medical certainty/planMood DisorderAttending note:16 yof with suicidal ideation after being place with gandmother after pt'smother suffered a TBI and started posting online how"crazy" the pt was.Observed overnight in [facility], then evaluated by [facility] in morning: Recommendedadmission for furtehr managementI supervised the management of this patient with the resident. I reviewed thehistory and exam findings by the resident. I repeated the history with thepatient/family and pertinent portions of the exam. Management plans weredeveloped with the resident and discussed with the family. The above notereflects my evaluation and assessment of this patient. Disposition wasdiscussed with the patient/family. Normal [facility] HCG,Urineon 05-31-2017 HCG.beta subunit ( test) Ql (U) Negative Normal [facility] Comment on above: Result Comment: Nonp regnant females and males-Negative females-Positive Performed By: #### H CGUR ####[address] [phone] Urinalysis,Automatedon 05-31 Bacteria Many Normal [facility] Comment on above: Performed By: #### U FMIC ####[address] [phone] Epithelial cells.squamous LM.HPF #/area (Urine sed) 12 /uL Normal 0-20 [facility] Comment on above: Performed By: #### U FMIC ####[address] [phone] INR Coag RelTime (Bld) 5.0 /uL Normal 0.0-20.0 [facility] Comment on above: Performed By: #### U FMIC ####[facility] of [address] [phone] Mucous Small Normal [facility] Comment on above: Performed By: #### U FMIC ####[facility] of [address] [phone] WBC 27.0 /uL High 0.0-20.0 [facility] Comment on above: Performed By: #### U FMIC ####[facility] of [address] [phone] Urinalysis,Completeon 2016 Volume 12 ml Normal 12 [facility] Comment on above: Performed By: #### U ACOM ####[facility] of [address] [phone] Bilirubin,urine Negative Normal Negative [facility] Comment on above: Performed By: #### U ACOM ####[facility] of [address] [phone] Character Hazy Normal [facility] Comment on above: Performed By: #### U ACOM ####[facility] [address] [phone] Color Straw Normal [facility] Comment on above: Performed By: #### U ACOM ####[facility] [address] [phone] Glucose Ql (U) Negative Normal Negative [facility] Comment on above: Performed By: #### U ACOM ####[facility] [address] [phone] Hemoglobin Negative Normal Negative [facility] Comment on above: Performed By: #### U ACOM ####[facility] of [address] [phone] Ketones TRACE Normal Negative [facility] Comment on above: Performed By: #### U ACOM ####[facility] of [address] [place], [place] [phone] Leukocyte Esterase 2+ leuk/ul Abnormal Negative [facility] Comment on above: Performed By: #### U ACOM ####[facility] of [address] [place], [place] [phone] Nitrites Negative Normal Negative [facility] Comment on above: Performed By: #### U ACOM ####[facility] of [address] [phone] pH Test strip (U) 6.0 Normal 5.0-8.0 [facility] Comment on above: Performed By: #### U ACOM ####[address] [phone] Protein mass conc Negative Normal Neg.-Trace [facility] Comment on above: Performed By: #### U ACOM ####[facility] of [address] [phone] Specific gravity 1.011 Normal 1.005-1.030 [facility] Comment on above: Performed By: #### U ACOM ####[facility] of [address] [phone] Urobilinogen 0.2 mg/dl Normal Negative [facility] Comment on above: Performed By: #### U ACOM ####[facility] of [address] [phone] Vital Signs Date Time Vital Sign Value Performing Clinician Facility 03-22-2025 18:33-0400 Body mass index (BMI) [Ratio] 23.81 kg/m2 Carole Talavera APRN.ASSISTANT PROFESSOR OF SPANISH Work Phone: [facility] 03-22-2025 18:33-0400 Body temperature 98.71 [degF] Carole Swank SCENERY BUILDER.ASSISTANT PROFESSOR OF SPANISH Work Phone: [facility] 03-22-2025 18:33-0400 Body weight 58.1 kg Carole Swank SCENERY BUILDER.ASSISTANT PROFESSOR OF SPANISH Work Phone: [facility] 03-22-2025 18:33-0400 Diastolic blood pressure 80 mm[Hg] Carole Swank SCENERY BUILDER.ASSISTANT PROFESSOR OF SPANISH Work Phone: [facility] 03-22-2025 18:33-0400 Heart rate 101 /min Carole Swank SCENERY BUILDER.ASSISTANT PROFESSOR OF SPANISH Work Phone: [facility] 03-22-2025 18:33-0400 Respiratory rate 18 /min Carole Swank SCENERY BUILDER.ASSISTANT PROFESSOR OF SPANISH Work Phone: [facility] 03-22-2025 18:33-0400 SaO2% (BldA) [Mass fraction] 98 % Carole Swank SCENERY BUILDER.ASSISTANT PROFESSOR OF SPANISH Work Phone: [facility] 03-22-2025 18:33-0400 Systolic blood pressure 110 mm[Hg] Carole Swank SCENERY BUILDER.ASSISTANT PROFESSOR OF SPANISH Work Phone: [facility] 03-07-2025 10:50-0400 Body mass index (BMI) [Ratio] 23.53 kg/m2 Wu Herrera MD Work Phone: [facility] 03-07-2025 10:50-0400 Body temperature 99.1 [degF] Wu Herrera MD Work Phone: [facility] 03-07-2025 10:50-0400 Body weight 57.42 kg Wu Herrera MD Work Phone: [facility] 03-07-2025 10:50-0400 Diastolic blood pressure 62 mm[Hg] Wu Herrera MD Work Phone: [facility] 03-07-2025 10:50-0400 Heart rate 64 /min Wu Herrera MD Work Phone: [facility] 03-07-2025 10:50-0400 Respiratory rate 16 /min Wu Herrera MD Work Phone: [facility] 03-07-2025 10:50-0400 Systolic blood pressure 102 mm[Hg] Wu Herrera MD Work Phone: [facility] 03-06-2025 16:29-0400 Body mass index (BMI) [Ratio] 23.56 kg/m2 Wu Salcedo APRN.ASSISTANT PROFESSOR OF SPANISH Work Phone: [facility] 03-06-2025 16:29-0400 Body temperature 98.6 [degF] uW Salcedo SCENERY BUILDER.ASSISTANT PROFESSOR OF SPANISH Work Phone: [facility] 03-06-2025 16:29-0400 Body weight 57.5 kg Wu Salcedo APRN.ASSISTANT PROFESSOR OF SPANISH Work Phone: [facility] 03-06-2025 16:29-0400 Diastolic blood pressure 60 mm[Hg] Wu Salcedo SCENERY BUILDER.ASSISTANT PROFESSOR OF SPANISH Work Phone: [facility] 03-06-2025 16:29-0400 Heart rate 80 /min Wu Salcedo APRN.ASSISTANT PROFESSOR OF SPANISH Work Phone: [facility] 03-06-2025 16:29-0400 Respiratory rate 16 /min Wu Salcedo APRN.ASSISTANT PROFESSOR OF SPANISH Work Phone: [facility] 03-06-2025 16:29-0400 SaO2% (BldA) [Mass fraction] 99 % Wu Salcedo SCENERY BUILDER.ASSISTANT PROFESSOR OF SPANISH Work Phone: [facility] 03-06-2025 16:29-0400 Systolic blood pressure 110 mm[Hg] Wu Salcedo SCENERY BUILDER.ASSISTANT PROFESSOR OF SPANISH Work Phone: [facility] 01-23-2025 11:31-0400 Body height 156.2 cm Daisy Hilliard APRN.CNM Work Phone: [facility] 01-23-2025 11:31-0400 Body mass index (BMI) [Ratio] 23.05 kg/m2 Daisy Hilliard APRN.CNM Work Phone: [facility] 01-23-2025 11:31-0400 Body weight 56.25 kg Daisy Hilliard APRN.CNM Work Phone: [facility] 01-23-2025 11:31-0400 Diastolic blood pressure 60 mm[Hg] Daisy Hilliard APRN.CNM Work Phone: [facility] 01-23-2025 11:31-0400 Systolic blood pressure 98 mm[Hg] Daisy Hililard APRN.CNM Work Phone: [facility] 01-11-2025 14:38-0400 Body height 157.5 cm Pacc 2 Work Phone: [facility] 01-11-2025 14:38-0400 Body mass index (BMI) [Ratio] 21.95 kg/m2 Pacc 2 Work Phone: [facility] 01-11-2025 14:38-0400 Body weight 54.43 kg Pacc 2 Work Phone: [facility] 01-11-2025 14:38-0400 Heart rate 82 /min Pacc 2 Work Phone: [facility] 01-11-2025 14:38-0400 Respiratory rate 16 /min Pacc 2 Work Phone: [facility] 01-09-2025 15:36-0400 Body mass index (BMI) [Ratio] 22.56 kg/m2 Wu Hogan MD Work Phone: [facility] 01-09-2025 15:36-0400 Body weight 55.97 kg Wu Hogan MD Work Phone: [facility] 01-09-2025 15:36-0400 Diastolic blood pressure 71 mm[Hg] Wu Hogan MD Work Phone: [facility] 01-09-2025 15:36-0400 Heart rate 94 /min Wu Hogan MD Work Phone: [facility] 01-09-2025 15:36-0400 Respiratory rate 14 /min Wu Hogan MD Work Phone: [facility] 01-09-2025 15:36-0400 SaO2% (BldA) [Mass fraction] 97 % Wu Hogan MD Work Phone: [facility] 01-09-2025 15:36-0400 Systolic blood pressure 112 mm[Hg] Wu Hogan MD Work Phone: [facility] 01-02-2025 11:32-0400 Body mass index (BMI) [Ratio] 22.67 kg/m2 Dee Roca PA-C Work Phone: [facility] 01-02-2025 11:32-0400 Body temperature 98.6 [degF] Dee Roca PA-C Work Phone: [facility] 01-02-2025 11:32-0400 Body weight 56.25 kg Dee Roca PA-C Work Phone: [facility] 01-02-2025 11:32-0400 Diastolic blood pressure 66 mm[Hg] Dee Roca PA-C Work Phone: [facility] 01-02-2025 11:32-0400 Heart rate 76 /min Dee Roca PA-C Work Phone: [facility] 01-02-2025 11:32-0400 Respiratory rate 16 /min Dee Roca PA-C Work Phone: [facility] 01-02-2025 11:32-0400 SaO2% (BldA) [Mass fraction] 97 % Dee Roca PA-C Work Phone: [facility] 01-02-2025 11:32-0400 Systolic blood pressure 102 mm[Hg] Dee Roca PA-C Work Phone: [facility] 12-16-2024 13:02-0400 Body mass index (BMI) [Ratio] 22.86 kg/m2 Dee Roca PA-C Work Phone: [facility] 12-16-2024 13:02-0400 Body temperature 98.6 [degF] Dee Roca PA-C Work Phone: [facility] 12-16-2024 13:02-0400 Body weight 56.7 kg Dee Roca PA-C Work Phone: [facility] 12-16-2024 13:02-0400 Diastolic blood pressure 70 mm[Hg] Dee Roca PA-C Work Phone: [facility] 12-16-2024 13:02-0400 Heart rate 83 /min eDe Roca PA-C Work Phone: [facility] 12-16-2024 13:02-0400 Respiratory rate 16 /min Dee Roca PA-C Work Phone: [facility] 12-16-2024 13:02-0400 SaO2% (BldA) [Mass fraction] 98 % Dee Roca PA-C Work Phone: [facility] 12-16-2024 13:02-0400 Systolic blood pressure 100 mm[Hg] Dee Roca PA-C Work Phone: [facility] 11-25-2024 14:39-0400 Diastolic blood pressure 64 mm[Hg] Salma Pandey MD Work Phone: [facility] 11-25-2024 14:39-0400 Heart rate 86 /min Salma Pandey MD Work Phone: [facility] 11-25-2024 14:39-0400 Systolic blood pressure 100 mm[Hg] Salma Pandey MD Work Phone: [facility] 11-25-2024 14:02-0400 Body mass index (BMI) [Ratio] 23.41 kg/m2 Salma Pandey MD Work Phone: [facility] 11-25-2024 14:02-0400 Body temperature 98.71 [degF] Salma Pandey MD Work Phone: [facility] 11-25-2024 14:02-0400 Body weight 58.06 kg Salma Pandey MD Work Phone: [facility] 11-25-2024 14:02-0400 SaO2% (BldA) [Mass fraction] 99 % Salma Pandey MD Work Phone: [facility] 10-18-2024 11:32-0400 Body mass index (BMI) [Ratio] 24.14 kg/m2 Daisy Hilliard SCENERY BUILDER.CNM Work Phone: [facility] 10-18-2024 11:32-0400 Body weight 59.88 kg Daisy Hilliard SCENERY BUILDER.CNM Work Phone: [facility] 10-18-2024 11:32-0400 Diastolic blood pressure 56 mm[Hg] Daisy Hilliard SCENERY BUILDER.CNM Work Phone: [facility] 10-18-2024 11:32-0400 Systolic blood pressure 98 mm[Hg] Daisy Hilliard SCENERY BUILDER.CNM Work Phone: [facility] 10-17-2024 16:15-0400 Diastolic blood pressure 67 mm[Hg] Frankie Varela SCENERY BUILDER.ASSISTANT PROFESSOR OF SP[employer]ISH Work Phone: [facility] 10-17-2024 16:15-0400 Heart rate 76 /min Frankie Varela APRN.ASSISTANT PROFESSOR [employer]ISH Work Phone: [facility] 10-17-2024 16:15-0400 Systolic blood pressure 108 mm[Hg] Frankie Varela SCENERY BUILDER.ASSISTANT PROFESSOR [employer]ISH Work Phone: [facility] 10-14-2024 10:50-0400 Body mass index (BMI) [Ratio] 24.32 kg/m2 Lesli Solano SCENERY BUILDER.ASSISTANT PROFESSOR [employer]ISH Work Phone: [facility] 10-14-2024 10:50-0400 Body weight 60.33 kg Leslilizeth Solano SCENERY BUILDER.ASSISTANT PROFESSOR [employer] Work Phone: [facility] 10-14-2024 10:50-0400 Diastolic blood pressure 60 mm[Hg] Lesli Haury SCENERY BUILDER.ASSISTANT PROFESSOR OF SP[employer]ISH Work Phone: [facility] 10-14-2024 10:50-0400 Systolic blood pressure 110 mm[Hg] Lesli Solano SCENERY BUILDER.ASSISTANT PROFESSOR [employer]ISH Work Phone: [facility] 10-11-2024 11:17-0400 Body mass index (BMI) [Ratio] 23.78 kg/m2 Frankie Varela SCENERY BUILDER.ASSISTANT PROFESSOR [employer]ISH Work Phone: [facility] 10-11-2024 11:17-0400 Body weight 59 kg Frankie Varela SCENERY BUILDER.ASSISTANT PROFESSOR [employer]ISH Work Phone: [facility] 10-11-2024 11:17-0400 Diastolic blood pressure 65 mm[Hg] Frankie Varela SCENERY BUILDER.ASSISTANT PROFESSOR OF [employer]ISH Work Phone: [facility] 10-11-2024 11:17-0400 Heart rate 71 /min Frankie Varela SCENERY BUILDER.ASSISTANT PROFESSOR [employer] SP[employer]ISH Work Phone: [facility] 10-11-2024 11:17-0400 Systolic blood pressure 111 mm[Hg] Frankie Varela SCENERY BUILDER.ASSISTANT PROFESSOR [employer]ISH Work Phone: [facility] 10-10-2024 13:21-0400 Body mass index (BMI) [Ratio] 24.31 kg/m2 Daisy Diego SCENERY BUILDER.ASSISTANT PROFESSOR [employer] Work Phone: [facility] 10-10-2024 13:21-0400 Body temperature 98.1 [degF] Daisy Diego SCENERY BUILDER.ASSISTANT PROFESSOR [employer] Work Phone: [facility] 10-10-2024 13:21-0400 Body weight 60.3 kg Daisy Diego SCENERY BUILDER.ASSISTANT PROFESSOR [employer] Work Phone: [facility] 10-10-2024 13:21-0400 Diastolic blood pressure 78 mm[Hg] Daisy Diego SCENERY BUILDER.ASSISTANT PROFESSOR [employer] Work Phone: [facility] 10-10-2024 13:21-0400 Heart rate 89 /min Daisy Diego SCENERY BUILDER.ASSISTANT PROFESSOR [employer]ISH Work Phone: [facility] 10-10-2024 13:21-0400 Respiratory rate 18 /min Daisy Diego SCENERY BUILDER.ASSISTANT PROFESSOR [employer]ISH Work Phone: [facility] 10-10-2024 13:21-0400 SaO2% (BldA) [Mass fraction] 97 % Daisy Diego SCENERY BUILDER.ASSISTANT PROFESSOR [employer]ISH Work Phone: [facility] 10-10-2024 13:21-0400 Systolic blood pressure 110 mm[Hg] Daisy Jalen SCENERY BUILDER.ASSISTANT PROFESSOR [employer]ISH Work Phone: [facility] 10-08-2024 12:58-0400 Body mass index (BMI) [Ratio] 24.83 kg/m2 Wu Salcedo SCENERY BUILDER.ASSISTANT PROFESSOR [employer] Work Phone: [facility] 10-08-2024 12:58-0400 Body temperature 99.19 [degF] Wu Salcedo SCENERY BUILDER.ASSISTANT PROFESSOR [employer] Work Phone: [facility] 10-08-2024 12:58-0400 Body weight 61.6 kg Wu Salcedo SCENERY BUILDER.ASSISTANT PROFESSOR [employer]ISH Work Phone: [facility] 10-08-2024 12:58-0400 Diastolic blood pressure 60 mm[Hg] Wu Salcedo SCENERY BUILDER.ASSISTANT PROFESSOR [employer]ISH Work Phone: [facility] 10-08-2024 12:58-0400 Heart rate 68 /min Wu Salcedo SCENERY BUILDER.ASSISTANT PROFESSOR [employer]ISH Work Phone: [facility] 10-08-2024 12:58-0400 Respiratory rate 16 /min Wu Salcedo SCENERY BUILDER.ASSISTANT PROFESSOR [employer]ISH Work Phone: [facility] 10-08-2024 12:58-0400 SaO2% (BldA) [Mass fraction] 98 % Wu Salcedo SCENERY BUILDER.ASSISTANT PROFESSOR [employer] SP[employer]ISH Work Phone: [facility] 10-08-2024 12:58-0400 Systolic blood pressure 112 mm[Hg] Wu Salcedo SCENERY BUILDER.ASSISTANT PROFESSOR [employer]ISH Work Phone: [facility] 09-22-2024 17:22-0400 Body mass index (BMI) [Ratio] 24.19 kg/m2 Wilver Moomaw SCENERY BUILDER.ASSISTANT PROFESSOR [employer]ISH Work Phone: [facility] 09-22-2024 17:22-0400 Body temperature 99.19 [degF] Wilver Moomaw SCENERY BUILDER.ASSISTANT PROFESSOR [employer]ISH Work Phone: [facility] 09-22-2024 17:22-0400 Body weight 60 kg Wilver Moomaw SCENERY BUILDER.ASSISTANT PROFESSOR [employer]ISH Work Phone: [facility] 09-22-2024 17:22-0400 Diastolic blood pressure 72 mm[Hg] Wilver Moomaw SCENERY BUILDER.ASSISTANT PROFESSOR [employer]ISH Work Phone: [facility] 09-22-2024 17:22-0400 Heart rate 83 /min Wilver Moomaw SCENERY BUILDER.ASSISTANT PROFESSOR [employer]ISH Work Phone: [facility] 09-22-2024 17:22-0400 Respiratory rate 18 /min Wilver Moomaw SCENERY BUILDER.ASSISTANT PROFESSOR [employer]ISH Work Phone: [facility] 09-22-2024 17:22-0400 SaO2% (BldA) [Mass fraction] 98 % Wilver Moomaw SCENERY BUILDER.ASSISTANT PROFESSOR [employer]ISH Work Phone: [facility] 09-22-2024 17:22-0400 Systolic blood pressure 117 mm[Hg] Wilver Moomaw SCENERY BUILDER.ASSISTANT PROFESSOR [employer]ISH Work Phone: [facility] 09-19-2024 16:06-0400 Body mass index (BMI) [Ratio] 23.78 kg/m2 Frankie Varela SCENERY BUILDER.ASSISTANT PROFESSOR [employer]ISH Work Phone: [facility] 09-19-2024 16:06-0400 Body weight 59 kg Frankie Varela SCENERY BUILDER.ASSISTANT PROFESSOR [employer]ISH Work Phone: [facility] 09-19-2024 16:06-0400 Diastolic blood pressure 68 mm[Hg] Frankie Varela SCENERY BUILDER.ASSISTANT PROFESSOR [employer]ISH Work Phone: [facility] 09-19-2024 16:06-0400 Heart rate 79 /min Frankie Varela SCENERY BUILDER.ASSISTANT PROFESSOR [employer]ISH Work Phone: [facility] 09-19-2024 16:06-0400 Systolic blood pressure 102 mm[Hg] Frankie Varela SCENERY BUILDER.ASSISTANT PROFESSOR [employer]ISH Work Phone: [facility] 08-29-2024 11:01-0500 Body mass index (BMI) [Ratio] 23.59 kg/m2 Sara Condon SCENERY BUILDER.CNM Work Phone: [facility] 08-29-2024 11:01-0500 Body weight 58.51 kg Sara Condon SCENERY BUILDER.CNM Work Phone: [facility] 08-29-2024 11:01-0500 Diastolic blood pressure 56 mm[Hg] Sara Condon SCENERY BUILDER.CNM Work Phone: [facility] 08-29-2024 11:01-0500 Systolic blood pressure 98 mm[Hg] Sara Condon SCENERY BUILDER.CNM Work Phone: [facility] 08-27-2024 09:33-0500 Body mass index (BMI) [Ratio] 23.77 kg/m2 Wu Herrera MD Work Phone: [facility] 08-27-2024 09:33-0500 Body temperature 97.9 [degF] Wu Herrera MD Work Phone: [facility] 08-27-2024 09:33-0500 Body weight 58.97 kg Wu Herrera MD Work Phone: [facility] 08-27-2024 09:33-0500 Diastolic blood pressure 60 mm[Hg] Wu Herrrea MD Work Phone: [facility] 08-27-2024 09:33-0500 Heart rate 92 /min Wu Herrera MD Work Phone: [facility] 08-27-2024 09:33-0500 Respiratory rate 16 /min uW Herrera MD Work Phone: [facility] 08-27-2024 09:33-0500 Systolic blood pressure 102 mm[Hg] Wu Herrera MD Work Phone: [facility] 08-22-2024 18:41-0500 Body mass index (BMI) [Ratio] 23.86 kg/m2 Clement Sheehan MD Work Phone: [facility] 08-22-2024 18:41-0500 Body temperature 98.01 [degF] Clement Sheehan MD Work Phone: [facility] 08-22-2024 18:41-0500 Body weight 59.2 kg Clement Sheehan MD Work Phone: [facility] 08-22-2024 18:41-0500 Diastolic blood pressure 60 mm[Hg] Clement Sheehan MD Work Phone: [facility] 08-22-2024 18:41-0500 Heart rate 84 /min Clement Sheehan MD Work Phone: [facility] 08-22-2024 18:41-0500 Systolic blood pressure 108 mm[Hg] Clement Sheehan MD Work Phone: [facility] 08-15-2024 13:30-0500 Diastolic blood pressure 66 mm[Hg] Pari Yara SCENERY BUILDER.ASSISTANT PROFESSOR OF [employer]ISH Work Phone: [facility] 08-15-2024 13:30-0500 Systolic blood pressure 104 mm[Hg] Pari Blunt [employer]ENERY BUILDER.ASSISTANT PROFESSOR [employer] Work Phone: [facility] 07-19-2024 09:29-0500 Body mass index (BMI) [Ratio] 24.69 kg/m2 Wu Herrera MD Work Phone: [facility] 07-19-2024 09:29-0500 Body weight 61.24 kg Wu Herrera MD Work Phone: [facility] 07-19-2024 09:29-0500 Diastolic blood pressure 64 mm[Hg] Wu Herrera MD Work Phone: [facility] 07-19-2024 09:29-0500 Heart rate 88 /min Wu Herrera MD Work Phone: [facility] 07-19-2024 09:29-0500 Respiratory rate 16 /min Wu Herrera MD Work Phone: [facility] 07-19-2024 09:29-0500 Systolic blood pressure 108 mm[Hg] Wu Herrera MD Work Phone: [facility] 07-11-2024 09:46-0500 Body mass index (BMI) [Ratio] 24.55 kg/m2 John Powell MD Work Phone: [facility] 07-11-2024 09:46-0500 Body temperature 97.59 [degF] John Powell MD Work Phone: [facility] 07-11-2024 09:46-0500 Body weight 60.9 kg John Powell MD Work Phone: [facility] 07-11-2024 09:46-0500 Diastolic blood pressure 62 mm[Hg] John Powell MD Work Phone: [facility] 07-11-2024 09:46-0500 Heart rate 82 /min John Powell MD Work Phone: [facility] 07-11-2024 09:46-0500 Respiratory rate 18 /min John Powell MD Work Phone: [facility] 07-11-2024 09:46-0500 SaO2% (BldA) [Mass fraction] 98 % John Powell MD Work Phone: [facility] 07-11-2024 09:46-0500 Systolic blood pressure 102 mm[Hg] John Powell MD Work Phone: [facility] 06-30-2024 08:02-0500 Body height 157.5 cm Dee CALLOWAY-C Work Phone: [facility] 06-30-2024 08:02-0500 Body mass index (BMI) [Ratio] 24.14 kg/m2 Dee CALLOWAY-C Work Phone: [facility] 06-30-2024 08:02-0500 Body temperature 97.9 [degF] Dee Roca PA-C Work Phone: [facility] 06-30-2024 08:02-0500 Body weight 59.88 kg Dee CALLOWAY-C Work Phone: [facility] 06-30-2024 08:02-0500 Diastolic blood pressure 70 mm[Hg] Dee CALLOWAY-C Work Phone: [facility] 06-30-2024 08:02-0500 Heart rate 88 /min Dee CALLOWAY-C Work Phone: [facility] 06-30-2024 08:02-0500 Respiratory rate 16 /min Dee Roca PA-C Work Phone: [facility] 06-30-2024 08:02-0500 SaO2% (BldA) [Mass fraction] 98 % Dee Roca PA-C Work Phone: [facility] 06-30-2024 08:02-0500 Systolic blood pressure 102 mm[Hg] Dee Roca PA-C Work Phone: [facility] 06-29-2024 13:01-0500 Body mass index (BMI) [Ratio] 24.64 kg/m2 Carmen Siegel MD Work Phone: [facility] 06-29-2024 13:01-0500 Body weight 61.1 kg Carmen Siegel MD Work Phone: [facility] 06-29-2024 13:01-0500 Diastolic blood pressure 68 mm[Hg] Carmen Siegel MD Work Phone: [facility] 06-29-2024 13:01-0500 Heart rate 85 /min Carmen Siegel MD Work Phone: [facility] 06-29-2024 13:01-0500 Systolic blood pressure 106 mm[Hg] Carmen Siegel MD Work Phone: [facility] 06-22-2024 15:55-0500 Body mass index (BMI) [Ratio] 24.92 kg/m2 John Powell MD Work Phone: [facility] 06-22-2024 15:55-0500 Body temperature 98.1 [degF] John Powell MD Work Phone: [facility] 06-22-2024 15:55-0500 Body weight 61.8 kg John Powell MD Work Phone: [facility] 06-22-2024 15:55-0500 Diastolic blood pressure 72 mm[Hg] John Powell MD Work Phone: [facility] 06-22-2024 15:55-0500 Heart rate 102 /min John Powell MD Work Phone: [facility] 06-22-2024 15:55-0500 Respiratory rate 16 /min John Powell MD Work Phone: [facility] 06-22-2024 15:55-0500 SaO2% (BldA) [Mass fraction] 97 % John Powell MD Work Phone: [facility] 06-22-2024 15:55-0500 Systolic blood pressure 110 mm[Hg] John Powell MD Work Phone: [facility] 06-16-2024 14:34-0500 Body height 157.5 cm Shruthi Haney MD Work Phone: [facility] 06-16-2024 14:34-0500 Body mass index (BMI) [Ratio] 25 kg/m2 Shruthi Haney MD Work Phone: [facility] 06-16-2024 14:34-0500 Body weight 62 kg Shruthi Haney MD Work Phone: [facility] 06-16-2024 14:34-0500 Diastolic blood pressure 74 mm[Hg] Shruthi Haney MD Work Phone: [facility] 06-16-2024 14:34-0500 Heart rate 73 /min Shruthi Haney MD Work Phone: [facility] 06-16-2024 14:34-0500 SaO2% (BldA) [Mass fraction] 100 % Shruthi Haney MD Work Phone: [facility] 06-16-2024 14:34-0500 Systolic blood pressure 115 mm[Hg] Shruthi Haney MD Work Phone: [facility] 06-15-2024 13:42-0500 Body mass index (BMI) [Ratio] 24.87 kg/m2 Smiley Tripathi MD Work Phone: [facility] 06-15-2024 13:42-0500 Body weight 61.69 kg Smiley Tripathi MD Work Phone: [facility] 06-15-2024 13:42-0500 Diastolic blood pressure 60 mm[Hg] Smiley Tripathi MD Work Phone: [facility] 06-15-2024 13:42-0500 Systolic blood pressure 102 mm[Hg] Smiley Tripathi MD Work Phone: [facility] 05-28-2024 10:58-0500 Body mass index (BMI) [Ratio] 24.52 kg/m2 Wu Herrera MD Work Phone: [facility] 05-28-2024 10:58-0500 Body weight 60.8 kg Wu Herrera MD Work Phone: [facility] 05-28-2024 10:58-0500 Diastolic blood pressure 68 mm[Hg] Wu Herrera MD Work Phone: [facility] 05-28-2024 10:58-0500 Heart rate 88 /min Wu Herrera MD Work Phone: [facility] 05-28-2024 10:58-0500 Respiratory rate 18 /min Wu Herrera MD Work Phone: [facility] 05-28-2024 10:58-0500 SaO2% (BldA) [Mass fraction] 98 % Wu Herrera MD Work Phone: [facility] 05-28-2024 10:58-0500 Systolic blood pressure 100 mm[Hg] Wu Herrera MD Work Phone: [facility] 05-25-2024 06:30-0500 Diastolic blood pressure 61 mm[Hg] Chapo Kimbroughft DO Work Phone: [facility] 05-25-2024 06:30-0500 Heart rate 71 /min Chapo Wright DO Work Phone: [facility] 05-25-2024 06:30-0500 Respiratory rate 16 /min Chapo Wright DO Work Phone: [facility] 05-25-2024 06:30-0500 SaO2% (BldA) [Mass fraction] 97 % Chapo Wright DO Work Phone: [facility] 05-25-2024 06:30-0500 Systolic blood pressure 99 mm[Hg] Chapo Wright DO Work Phone: [facility] 05-25-2024 01:34-0500 Body height 157.5 cm Chapo Wright DO Work Phone: [phone] [place] [address] 05-25-2024 01:34-0500 Body mass index (BMI) [Ratio] 23.78 kg/m2 Chapo Wright DO Work Phone: [facility] 05-25-2024 01:34-0500 Body temperature 97.9 [degF] Chapo Wright DO Work Phone: [facility] 05-25-2024 01:34-0500 Body weight 58.97 kg Chapo Wright DO Work Phone: [facility] 04-14-2024 11:13-0400 Diastolic blood pressure 61 mm[Hg] Wu Hogan MD Work Phone: [facility] 04-14-2024 11:13-0400 Heart rate 76 /min Wu Hogan MD Work Phone: [facility] 04-14-2024 11:13-0400 Respiratory rate 16 /min Wu Hogan MD Work Phone: [facility] 04-14-2024 11:13-0400 SaO2% (BldA) [Mass fraction] 100 % Wu Hogan MD Work Phone: [facility] 04-14-2024 11:13-0400 Systolic blood pressure 104 mm[Hg] Wu Hogan MD Work Phone: [facility] 04-14-2024 09:35-0400 Body mass index (BMI) [Ratio] 24.6 kg/m2 Wu Hogan MD Work Phone: [facility] 04-14-2024 09:35-0400 Body temperature 98.1 [degF] Wu Hogan MD Work Phone: [facility] 04-14-2024 09:35-0400 Body weight 61 kg Wu Hogan MD Work Phone: [facility] 04-04-2024 18:27-0400 Body mass index (BMI) [Ratio] 24.6 kg/m2 Siri Espitia APRN.ASSISTANT PROFESSOR OF SPANISH Work Phone: [facility] 04-04-2024 18:27-0400 Body temperature 99 [degF] Siri Espitia APRN.ASSISTANT PROFESSOR [employer]ISH Work Phone: [facility] 04-04-2024 18:27-0400 Body weight 61 kg Siri Espitia APRN.ASSISTANT PROFESSOR [employer]ISH Work Phone: [facility] 04-04-2024 18:27-0400 Diastolic blood pressure 78 mm[Hg] Siri Espitia APRN.ASSISTANT PROFESSOR [employer] SP[employer]ISH Work Phone: [facility] 04-04-2024 18:27-0400 Heart rate 93 /min Siri Espitia APRN.ASSISTANT PROFESSOR [employer] SP[employer]ISH Work Phone: [facility] 04-04-2024 18:27-0400 Respiratory rate 18 /min Siri Espitia APRN.ASSISTANT PROFESSOR [employer]ISH Work Phone: [facility] 04-04-2024 18:27-0400 SaO2% (BldA) [Mass fraction] 97 % Siri Espitia APRN.ASSISTANT PROFESSOR [employer] SP[employer]ISH Work Phone: [facility] 04-04-2024 18:27-0400 Systolic blood pressure 110 mm[Hg] Siri Espitia APRN.ASSISTANT PROFESSOR [employer] SP[employer]ISH Work Phone: [facility] 03-31-2024 15:58-0400 Body mass index (BMI) [Ratio] 24.69 kg/m2 Lesli Solano APRN.ASSISTANT PROFESSOR [employer] SP[employer]ISH Work Phone: [facility] 03-31-2024 15:58-0400 Body weight 61.24 kg Lesli Solano SCENERY BUILDER.ASSISTANT PROFESSOR [employer] SP[employer]ISH Work Phone: [facility] 03-31-2024 15:58-0400 Diastolic blood pressure 58 mm[Hg] Lesli Solano SCENERY BUILDER.ASSISTANT PROFESSOR [employer]ISH Work Phone: [facility] 03-31-2024 15:58-0400 Heart rate 78 /min Lesli Pinzonury SCENERY BUILDER.ASSISTANT PROFESSOR [employer] SP[employer]ISH Work Phone: [facility] 03-31-2024 15:58-0400 Respiratory rate 14 /min Lesli Solano SCENERY BUILDER.ASSISTANT PROFESSOR [employer] SP[employer]ISH Work Phone: [facility] 03-31-2024 15:58-0400 SaO2% (BldA) [Mass fraction] 97 % Lesli Solano SCENERY BUILDER.ASSISTANT PROFESSOR [employer] SP[employer]ISH Work Phone: [facility] 03-31-2024 15:58-0400 Systolic blood pressure 100 mm[Hg] Lesli Pinzonury SCENERY BUILDER.ASSISTANT PROFESSOR [employer] SP[employer]ISH Work Phone: [facility] 03-17-2024 07:56-0400 Body height 157.5 cm Ofelia Kalka PA-C Work Phone: [facility] 03-17-2024 07:56-0400 Body mass index (BMI) [Ratio] 24.69 kg/m2 Ofelia Kalka PA-C Work Phone: [facility] 03-17-2024 07:56-0400 Body weight 61.24 kg Ofelia Kalka PA-C Work Phone: [facility] 03-17-2024 07:56-0400 Diastolic blood pressure 64 mm[Hg] Ofelia Kalka PA-C Work Phone: [facility] 03-17-2024 07:56-0400 Heart rate 74 /min Ofelia Kalka PA-C Work Phone: [facility] 03-17-2024 07:56-0400 Systolic blood pressure 102 mm[Hg] Ofelia Kalka PA-C Work Phone: [facility] 02-29-2024 14:43-0400 Body mass index (BMI) [Ratio] 25.42 kg/m2 Wu Herrera MD Work Phone: [facility] 02-29-2024 14:43-0400 Body temperature 98.71 [degF] Wu Herrera MD Work Phone: [facility] 02-29-2024 14:43-0400 Body weight 63.05 kg Wu Herrera MD Work Phone: [facility] 02-29-2024 14:43-0400 Diastolic blood pressure 68 mm[Hg] Wu Herrera MD Work Phone: [facility] 02-29-2024 14:43-0400 Heart rate 88 /min Wu Herrera MD Work Phone: [facility] 02-29-2024 14:43-0400 Respiratory rate 18 /min Wu Herrera MD Work Phone: [facility] 02-29-2024 14:43-0400 Systolic blood pressure 104 mm[Hg] Wu Herrera MD Work Phone: [facility] 02-15-2024 09:35-0400 Body mass index (BMI) [Ratio] 25.79 kg/m2 Lesli Solano SCENERY BUILDER.ASSISTANT PROFESSOR [employer]ISH Work Phone: [facility] 02-15-2024 09:35-0400 Body weight 63.96 kg Lesli Solano SCENERY BUILDER.ASSISTANT PROFESSOR [employer]ISH Work Phone: [facility] 02-15-2024 09:35-0400 Diastolic blood pressure 50 mm[Hg] Lesli Haury SCENERY BUILDER.ASSISTANT PROFESSOR OF [employer]ISH Work Phone: [facility] 02-15-2024 09:35-0400 Systolic blood pressure 98 mm[Hg] Lesli Haury SCENERY BUILDER.ASSISTANT PROFESSOR OF [employer]ISH Work Phone: [facility] 01-19-2024 14:19-0400 Diastolic blood pressure 70 mm[Hg] Pari Livingston SCENERY BUILDER.ASSISTANT PROFESSOR OF [employer]ISH Work Phone: [facility] 01-19-2024 14:19-0400 Heart rate 102 /min Apri Blunt [employer]ENERY BUILDER.ASSISTANT PROFESSOR OF [employer]ISH Work Phone: [facility] 01-19-2024 14:19-0400 Respiratory rate 20 /min Pari Yara [employer]ENERY BUILDER.ASSISTANT PROFESSOR OF [employer]ISH Work Phone: [facility] 01-19-2024 14:19-0400 SaO2% (BldA) [Mass fraction] 97 % Pari Blunt SCENERY BUILDER.ASSISTANT PROFESSOR [employer]ISH Work Phone: [facility] 01-19-2024 14:19-0400 Systolic blood pressure 110 mm[Hg] Pari Yara SCENERY BUILDER.ASSISTANT PROFESSOR [employer]ISH Work Phone: [facility] 01-19-2024 12:58-0400 Body mass index (BMI) [Ratio] 25.75 kg/m2 Pari Yara SCENERY BUILDER.ASSISTANT PROFESSOR [employer]ISH Work Phone: [facility] 01-19-2024 12:58-0400 Body weight 63.87 kg Pari Blunt SCENERY BUILDER.ASSISTANT PROFESSOR OF SPANISH Work Phone: [facility] 01-18-2024 13:04-0400 Body mass index (BMI) [Ratio] 25.61 kg/m2 Wu Herrera MD Work Phone: [facility] 01-18-2024 13:04-0400 Body temperature 98.91 [degF] Wu Herrera MD Work Phone: [facility] 01-18-2024 13:04-0400 Body weight 63.5 kg Wu Herrera MD Work Phone: [facility] 01-18-2024 13:04-0400 Diastolic blood pressure 64 mm[Hg] Wu Herrera MD Work Phone: [facility] 01-18-2024 13:04-0400 Heart rate 86 /min Wu Herrera MD Work Phone: [facility] 01-18-2024 13:04-0400 Respiratory rate 16 /min Wu Herrera MD Work Phone: [facility] 01-18-2024 13:04-0400 Systolic blood pressure 108 mm[Hg] Wu Herrera MD Work Phone: [facility] 01-08-2024 10:37-0400 Body mass index (BMI) [Ratio] 26.81 kg/m2 Wu Salcedo SCENERY BUILDER.ASSISTANT PROFESSOR OF [employer]ISH Work Phone: [facility] 01-08-2024 10:37-0400 Body temperature 97.59 [degF] Wu Salcedo SCENERY BUILDER.ASSISTANT PROFESSOR OF [employer]ISH Work Phone: [facility] 01-08-2024 10:37-0400 Body weight 66.5 kg Wu Salcedo SCENERY BUILDER.ASSISTANT PROFESSOR OF [employer]ISH Work Phone: [facility] 01-08-2024 10:37-0400 Diastolic blood pressure 62 mm[Hg] Wu Salcedo SCENERY BUILDER.ASSISTANT PROFESSOR OF SPANISH Work Phone: [facility] 01-08-2024 10:37-0400 Heart rate 97 /min Wu Salcedo SCENERY BUILDER.ASSISTANT PROFESSOR OF [employer] Work Phone: [facility] 01-08-2024 10:37-0400 Respiratory rate 18 /min Wu Salcedo SCENERY BUILDER.ASSISTANT PROFESSOR OF [employer]ISH Work Phone: [facility] 01-08-2024 10:37-0400 SaO2% (BldA) [Mass fraction] 98 % Wu Salcedo SCENERY BUILDER.ASSISTANT PROFESSOR OF [employer] Work Phone: [facility] 01-08-2024 10:37-0400 Systolic blood pressure 124 mm[Hg] Wu Salcedo SCENERY BUILDER.ASSISTANT PROFESSOR OF [employer] Work Phone: [facility] 12-22-2023 13:49-0400 Body mass index (BMI) [Ratio] 28.35 kg/m2 Pari Yara SCENERY BUILDER.ASSISTANT PROFESSOR OF SP[employer]ISH Work Phone: [facility] 12-22-2023 13:49-0400 Body weight 70.31 kg Pari Blunt SCENERY BUILDER.ASSISTANT PROFESSOR OF [employer] Work Phone: [facility] 12-22-2023 13:49-0400 Diastolic blood pressure 70 mm[Hg] Pari Yara SCENERY BUILDER.ASSISTANT PROFESSOR OF [employer]ISH Work Phone: [facility] 12-22-2023 13:49-0400 Systolic blood pressure 120 mm[Hg] Pari Livingston SCENERY BUILDER.ASSISTANT PROFESSOR OF [employer] Work Phone: [facility] 12-14-2023 10:32-0400 Body mass index (BMI) [Ratio] 31.1 kg/m2 Satya Hanks SCENERY BUILDER.ASSISTANT PROFESSOR OF [employer]ISH Work Phone: [facility] 12-14-2023 10:32-0400 Body weight 74.66 kg Satya Hanks SCENERY BUILDER.ASSISTANT PROFESSOR OF [employer]ISH Work Phone: [facility] 12-14-2023 10:32-0400 Diastolic blood pressure 82 mm[Hg] Satya Demario SCENERY BUILDER.ASSISTANT PROFESSOR OF SP[employer]ISH Work Phone: [facility] 12-14-2023 10:32-0400 Heart rate 70 /min Satya Hanks SCENERY BUILDER.ASSISTANT PROFESSOR OF [employer]ISH Work Phone: [facility] 12-14-2023 10:32-0400 Respiratory rate 16 /min Satya Hanks SCENERY BUILDER.ASSISTANT PROFESSOR OF SP[employer]ISH Work Phone: [facility] 12-14-2023 10:32-0400 SaO2% (BldA) [Mass fraction] 98 % Satya Hanks SCENERY BUILDER.ASSISTANT PROFESSOR OF SP[employer]ISH Work Phone: [facility] 12-14-2023 10:32-0400 Systolic blood pressure 118 mm[Hg] Satya Hanks SCENERY BUILDER.ASSISTANT PROFESSOR OF SP[employer]ISH Work Phone: [facility] 12-02-2023 14:30-0400 Body mass index (BMI) [Ratio] 33.86 kg/m2 Daisy Hilliard SCENERY BUILDER.CNM Work Phone: [facility] 12-02-2023 14:30-0400 Body weight 81.28 kg Daisy Hilliard SCENERY BUILDER.CNM Work Phone: [facility] 12-02-2023 14:30-0400 Diastolic blood pressure 80 mm[Hg] Daisy Hilliard SCENERY BUILDER.CNM Work Phone: [facility] 12-02-2023 14:30-0400 Systolic blood pressure 120 mm[Hg] Daisy Daniel JEANCNM Work Phone: [facility] 11-27-2023 11:37-0400 Body mass index (BMI) [Ratio] 33.36 kg/m2 Shruthi Estrada MD Work Phone: [facility] 11-27-2023 11:37-0400 Body weight 81.19 kg Shruthi Estrada MD Work Phone: [facility] 11-27-2023 11:37-0400 Diastolic blood pressure 76 mm[Hg] Shruthi Estrada MD Work Phone: [facility] 11-27-2023 11:37-0400 Systolic blood pressure 114 mm[Hg] Shruthi Estrada MD Work Phone: [facility] 11-20-2023 10:36-0400 Body mass index (BMI) [Ratio] 33.48 kg/m2 Shruthi Estrada MD Work Phone: [facility] 11-20-2023 10:36-0400 Body weight 81.47 kg Shruthi Estrada MD Work Phone: [facility] 11-20-2023 10:36-0400 Diastolic blood pressure 66 mm[Hg] Shruthi Estrada MD Work Phone: [facility] 11-20-2023 10:36-0400 Systolic blood pressure 98 mm[Hg] Shruthi Estrada MD Work Phone: [facility] 11-12-2023 09:26-0400 Body mass index (BMI) [Ratio] 32.99 kg/m2 Becca Castellon MD Work Phone: [facility] 11-12-2023 09:26-0400 Body weight 80.29 kg Becca Castellon MD Work Phone: [facility] 11-12-2023 09:26-0400 Diastolic blood pressure 70 mm[Hg] Becca Castellon MD Work Phone: [facility] 11-12-2023 09:26-0400 Systolic blood pressure 110 mm[Hg] Becca Castellon MD Work Phone: [facility] 11-02-2023 11:010400 Body mass index (BMI) [Ratio] 33.07 kg/m2 Shruthi Estrada MD Work Phone: [facility] 11-02-2023 11:010400 Body weight 80.47 kg Shruthi Estrada MD Work Phone: [facility] 11-02-2023 11:01-0400 Diastolic blood pressure 70 mm[Hg] Shruthi Estrada MD Work Phone: [facility] 11-02-2023 11:01040 Systolic blood pressure 118 mm[Hg] Shruthi Estrada MD Work Phone: [facility] 10-19-2023 11:17-0400 Body weight 78.2 kg Lesli Solano SCENERY BUILDER.ASSISTANT PROFESSOR OF SPANISH Work Phone: [facility] 10-19-2023 11:17-0400 Diastolic blood pressure 58 mm[Hg] Lesli Solano SCENERY BUILDER.ASSISTANT PROFESSOR OF SPANISH Work Phone: [facility] 10-19-2023 11:17-0400 Systolic blood pressure 110 mm[Hg] Lesli Haalvaro SCENERY BUILDER.ASSISTANT PROFESSOR OF SPANISH Work Phone: [facility] 10-15-2023 15:06-0400 Body temperature 97.3 [degF] Krislyn Aberegg PA Work Phone: [facility] 10-15-2023 15:06-0400 Body weight 79 kg Krislyn Aberegg PA Work Phone: [facility] 10-15-2023 15:06-0400 Diastolic blood pressure 70 mm[Hg] Krislyn Aberegg PA Work Phone: [facility] 10-15-2023 15:06-0400 Heart rate 93 /min Krislyn Aberegg PA Work Phone: [facility] 10-15-2023 15:06-0400 Respiratory rate 18 /min Krislyn Aberegg PA Work Phone: [facility] 10-15-2023 15:06-0400 SaO2% (BldA) [Mass fraction] 100 % Macariolydavie Aberegg PA Work Phone: [facility] 10-15-2023 15:06-0400 Systolic blood pressure 106 mm[Hg] Macariolydavie Rodriguezeregg PA Work Phone: [facility] 09-25-2023 11:40-0400 Body temperature 97.81 [degF] Dee Roca PA-C Work Phone: [facility] 09-25-2023 11:40-0400 Body weight 78.93 kg Dee Roca PA-C Work Phone: [facility] 09-25-2023 11:40-0400 Diastolic blood pressure 70 mm[Hg] Dee oRca PA-C Work Phone: [facility] 09-25-2023 11:40-0400 Heart rate 93 /min Deeosman Roca PA-C Work Phone: [facility] 09-25-2023 11:40-0400 Respiratory rate 16 /min Deeosman Roca PA-C Work Phone: [facility] 09-25-2023 11:40-0400 Systolic blood pressure 102 mm[Hg] Dee Roca PA-C Work Phone: [facility] 09-25-2023 08:36-0400 Body weight 79.11 kg Sara Condon SCENERY BUILDER.CNM Work Phone: [facility] 09-25-2023 08:36-0400 Diastolic blood pressure 70 mm[Hg] Sara Plotts SCENERY BUILDER.CNM Work Phone: [facility] 09-25-2023 08:36-0400 Systolic blood pressure 114 mm[Hg] Sara Plotts SCENERY BUILDER.CNM Work Phone: [facility] 09-11-2023 11:40-0500 Body temperature 97.9 [degF] Dee Roca PA-C Work Phone: [facility] 09-11-2023 11:40-0500 Body weight 76.66 kg Dee Roca PA-C Work Phone: [facility] 09-11-2023 11:40-0500 Diastolic blood pressure 70 mm[Hg] Dee Roca PA-C Work Phone: [facility] 09-11-2023 11:40-0500 Heart rate 102 /min Dee Roca PA-C Work Phone: [facility] 09-11-2023 11:40-0500 Respiratory rate 18 /min Dee Roca PA-C Work Phone: [facility] 09-11-2023 11:40-0500 Systolic blood pressure 110 mm[Hg] Dee Roca PA-C Work Phone: [facility] 09-10-2023 10:26-0500 Body weight 77.11 kg Jose Cruz Espitia MD Work Phone: [facility] 09-10-2023 10:26-0500 Diastolic blood pressure 68 mm[Hg] Jose Cruz Espitia MD Work Phone: [facility] 09-10-2023 10:26-0500 Systolic blood pressure 116 mm[Hg] Jose Cruz Espitia MD Work Phone: [facility] 08-28-2023 10:45-0500 Body weight 75.39 kg Becca Castellon MD Work Phone: [facility] 08-28-2023 10:45-0500 Diastolic blood pressure 60 mm[Hg] Becca Castellon MD Work Phone: [facility] 08-28-2023 10:45-0500 Systolic blood pressure 102 mm[Hg] Becca Castellon MD Work Phone: [facility] 08-17-2023 15:13-0500 Body weight 75.3 kg Daisy Hilliard APRN.CNM Work Phone: [facility] 08-17-2023 15:13-0500 Diastolic blood pressure 60 mm[Hg] Daisy Hilliard APRN.CNM Work Phone: [facility] 08-17-2023 15:13-0500 Systolic blood pressure 112 mm[Hg] Daisy Hilliard SCENERY BUILDER.CNM Work Phone: [facility] 06-12-2023 11:07-0500 Body weight 69.85 kg Daisy Hilliard SCENERY BUILDER.CNM Work Phone: [facility] 06-12-2023 11:07-0500 Diastolic blood pressure 58 mm[Hg] Daisy Hilliard SCENERY BUILDER.CNM Work Phone: [facility] 06-12-2023 11:07-0500 Systolic blood pressure 116 mm[Hg] Daisy Hilliard SCENERY BUILDER.CNM Work Phone: [facility] 06-01-2023 10:47-0500 Body height 156 cm Cora Alexander SCENERY BUILDER.ASSISTANT PROFESSOR OF SPANISH Work Phone: [facility] 06-01-2023 10:47-0500 Body weight 69.85 kg Cora Hatopher SCENERY BUILDER.ASSISTANT PROFESSOR OF SPANISH Work Phone: [facility] 06-01-2023 10:47-0500 Diastolic blood pressure 76 mm[Hg] Cora Haagen SCENERY BUILDER.ASSISTANT PROFESSOR OF SPANISH Work Phone: [facility] 06-01-2023 10:47-0500 Heart rate 82 /min Cora Haagen SCENERY BUILDER.ASSISTANT PROFESSOR OF SPANISH Work Phone: [facility] 06-01-2023 10:47-0500 Respiratory rate 16 /min Cora Alexander SCENERY BUILDER.ASSISTANT PROFESSOR OF SPANISH Work Phone: [facility] 06-01-2023 10:47-0500 SaO2% (BldA) [Mass fraction] 98 % Cora Hatopher SCENERY BUILDER.ASSISTANT PROFESSOR OF SPANISH Work Phone: [facility] 06-01-2023 10:47-0500 Systolic blood pressure 110 mm[Hg] Cora Haagen SCENERY BUILDER.ASSISTANT PROFESSOR OF SPANISH Work Phone: [facility] 05-19-2023 10:04-0500 Body height 156.5 cm Jose Cruz Espitia MD Work Phone: [facility] 05-19-2023 10:04-0500 Body weight 71.12 kg Jose Cruz Espitia MD Work Phone: [facility] 05-19-2023 10:04-0500 Diastolic blood pressure 58 mm[Hg] Jose Cruz Espitia MD Work Phone: [facility] 05-19-2023 10:04-0500 Systolic blood pressure 92 mm[Hg] Jose Cruz Espitia MD Work Phone: [facility] 05-01-2023 12:05-0400 Body temperature 98.4 [degF] Satya Demario SCENERY BUILDER.ASSISTANT PROFESSOR OF SPANISH Work Phone: [facility] 05-01-2023 12:05-0400 Body weight 70.67 kg Satya Hanks SCENERY BUILDER.ASSISTANT PROFESSOR OF SPANISH Work Phone: [facility] 05-01-2023 12:05-0400 Diastolic blood pressure 72 mm[Hg] Satya Demario SCENERY BUILDER.ASSISTANT PROFESSOR OF SPANISH Work Phone: [facility] 05-01-2023 12:05-0400 Heart rate 96 /min Satya Demario SCENERY BUILDER.ASSISTANT PROFESSOR OF SPANISH Work Phone: [facility] 05-01-2023 12:05-0400 Respiratory rate 16 /min Satya Demario SCENERY BUILDER.ASSISTANT PROFESSOR OF SPANISH Work Phone: [facility] 05-01-2023 12:05-0400 SaO2% (BldA) [Mass fraction] 98 % Satyaeleazar Hanks SCENERY BUILDER.ASSISTANT PROFESSOR OF SPANISH Work Phone: [facility] 05-01-2023 12:05-0400 Systolic blood pressure 114 mm[Hg] Satya Hanks SCENERY BUILDER.ASSISTANT PROFESSOR OF SPANISH Work Phone: [facility] 04-18-2023 14:16-0400 Body temperature 97.9 [degF] Siri Espitia APRN.ASSISTANT PROFESSOR OF SPANISH Work Phone: [facility] 04-18-2023 14:16-0400 Body weight 70.22 kg Siri Espitia APRN.ASSISTANT PROFESSOR OF SPANISH Work Phone: [facility] 04-18-2023 14:16-0400 Diastolic blood pressure 64 mm[Hg] Siri Espitia SCENERY BUILDER.ASSISTANT PROFESSOR OF SPANISH Work Phone: [facility] 04-18-2023 14:16-0400 Heart rate 92 /min Siri Espitia SCENERY BUILDER.ASSISTANT PROFESSOR OF SPANISH Work Phone: [facility] 04-18-2023 14:16-0400 Respiratory rate 16 /min Siri Espitia APRN.ASSISTANT PROFESSOR OF SPANISH Work Phone: [facility] 04-18-2023 14:16-0400 SaO2% (BldA) [Mass fraction] 99 % Siri Espitia APRN.ASSISTANT PROFESSOR OF SPANISH Work Phone: [facility] 04-18-2023 14:16-0400 Systolic blood pressure 102 mm[Hg] Siri Espitia SCENERY BUILDER.ASSISTANT PROFESSOR OF SPANISH Work Phone: [facility] 04-12-2023 14:31-0400 Body temperature 98.49 [degF] Siri Espitia APRN.ASSISTANT PROFESSOR OF SPANISH Work Phone: [facility] 04-12-2023 14:31-0400 Body weight 70.76 kg Siri Espitia APRN.ASSISTANT PROFESSOR OF SPANISH Work Phone: [facility] 04-12-2023 14:31-0400 Diastolic blood pressure 78 mm[Hg] Siri Espitia SCENERY BUILDER.ASSISTANT PROFESSOR OF SPANISH Work Phone: [facility] 04-12-2023 14:31-0400 Heart rate 113 /min Siri Espitia APRN.ASSISTANT PROFESSOR OF SPANISH Work Phone: [facility] 04-12-2023 14:31-0400 Respiratory rate 16 /min Siri Espitia SCENERY BUILDER.ASSISTANT PROFESSOR OF SPANISH Work Phone: [facility] 04-12-2023 14:31-0400 SaO2% (BldA) [Mass fraction] 99 % Siri Espitia APRN.ASSISTANT PROFESSOR OF SPANISH Work Phone: [facility] 04-12-2023 14:31-0400 Systolic blood pressure 118 mm[Hg] Siri Espitia SCENERY BUILDER.ASSISTANT PROFESSOR OF SPANISH Work Phone: [facility] 03-23-2023 07:33-0400 Body temperature 97.7 [degF] Dee Roca PA-C Work Phone: [facility] 03-23-2023 07:33-0400 Body weight 70.76 kg Dee Roca PA-C Work Phone: [facility] 03-23-2023 07:33-0400 Diastolic blood pressure 60 mm[Hg] Dee Roca PA-C Work Phone: [facility] 03-23-2023 07:33-0400 Heart rate 88 /min Dee Roca PA-C Work Phone: [facility] 03-23-2023 07:33-0400 Respiratory rate 16 /min Dee Roca PA-C Work Phone: [facility] 03-23-2023 07:33-0400 Systolic blood pressure 102 mm[Hg] Dee Roca PA-C Work Phone: [facility] 03-19-2023 08:25-0400 Body temperature 97.5 [degF] Darrell De Paz SCENERY BUILDER.ASSISTANT PROFESSOR OF SPANISH Work Phone: [facility] 03-19-2023 08:25-0400 Body weight 70.85 kg Darrell De Paz SCENERY BUILDER.ASSISTANT PROFESSOR OF SPANISH Work Phone: [facility] 03-19-2023 08:25-0400 Diastolic blood pressure 62 mm[Hg] Darrell De Paz SCENERY BUILDER.ASSISTANT PROFESSOR OF SPANISH Work Phone: [facility] 03-19-2023 08:25-0400 Heart rate 76 /min Darrell Baldev SCENERY BUILDER.ASSISTANT PROFESSOR OF SPANISH Work Phone: [facility] 03-19-2023 08:25-0400 Respiratory rate 21 /min Darrell Baldev SCENERY BUILDER.ASSISTANT PROFESSOR OF SPANISH Work Phone: [facility] 03-19-2023 08:25-0400 SaO2% (BldA) [Mass fraction] 100 % Darrell De Paz SCENERY BUILDER.ASSISTANT PROFESSOR OF SPANISH Work Phone: [facility] 03-19-2023 08:25-0400 Systolic blood pressure 102 mm[Hg] Darrell De Paz SCENERY BUILDER.ASSISTANT PROFESSOR OF SPANISH Work Phone: [facility] 03-03-2023 09:04-0400 Diastolic blood pressure 70 mm[Hg] Pari Blunt SCENERY BUILDER.ASSISTANT PROFESSOR OF SPANISH Work Phone: [facility] 03-03-2023 09:04-0400 Heart rate 86 /min Pari Blunt SCENERY BUILDER.ASSISTANT PROFESSOR OF SPANISH Work Phone: [facility] 03-03-2023 09:04-0400 SaO2% (BldA) [Mass fraction] 99 % Pari Blunt SCENERY BUILDER.ASSISTANT PROFESSOR OF SPANISH Work Phone: [facility] 03-03-2023 09:04-0400 Systolic blood pressure 110 mm[Hg] Pari Yara SCENERY BUILDER.ASSISTANT PROFESSOR OF SPANISH Work Phone: [facility] 12-16-2022 15:28-0400 Body temperature 98.49 [degF] Wu Pendlebury SCENERY BUILDER.ASSISTANT PROFESSOR OF SPANISH Work Phone: [facility] 12-16-2022 15:28-0400 Body weight 66.68 kg [facility] SCENERY BUILDER.ASSISTANT PROFESSOR OF SPANISH Work Phone: [facility] 12-16-2022 15:28-0400 Diastolic blood pressure 62 mm[Hg] Wu Pendlebury SCENERY BUILDER.ASSISTANT PROFESSOR OF SPANISH Work Phone: [facility] 12-16-2022 15:28-0400 Heart rate 114 /min Wu Pendlebury SCENERY BUILDER.ASSISTANT PROFESSOR OF SPANISH Work Phone: [facility] 12-16-2022 15:28-0400 Respiratory rate 18 /min Wu Pendlebury SCENERY BUILDER.ASSISTANT PROFESSOR OF SPANISH Work Phone: [facility] 12-16-2022 15:28-0400 SaO2% (BldA) [Mass fraction] 99 % Wu Pendlebury SCENERY BUILDER.ASSISTANT PROFESSOR OF SPANISH Work Phone: [facility] 12-16-2022 15:28-0400 Systolic blood pressure 108 mm[Hg] Wu Pendlebury SCENERY BUILDER.ASSISTANT PROFESSOR OF SPANISH Work Phone: [facility] 12-10-2022 13:03-0400 Body temperature 98.49 [degF] Lissette Athy PA-C Work Phone: [facility] 12-10-2022 13:03-0400 Body weight 65.86 kg Lissette Athy PA-C Work Phone: [facility] 12-10-2022 13:03-0400 Diastolic blood pressure 72 mm[Hg] Lissette Athy PA-C Work Phone: [facility] 12-10-2022 13:03-0400 Heart rate 87 /min Lissette Athy PA-C Work Phone: [facility] 12-10-2022 13:03-0400 Respiratory rate 18 /min Lissette Athy PA-C Work Phone: [facility] 12-10-2022 13:03-0400 SaO2% (BldA) [Mass fraction] 98 % Lissette Athy PA-C Work Phone: [facility] 12-10-2022 13:03-0400 Systolic blood pressure 108 mm[Hg] Lissette Athy PA-C Work Phone: [facility] 11-07-2022 08:14-0400 Body height 157.5 cm Gaetano Schneider MD Work Phone: [facility] 11-07-2022 08:14-0400 Body weight 64.41 kg Gaetano Schneider MD Work Phone: [facility] 11-07-2022 08:14-0400 Respiratory rate 16 /min Gaetano Schneider MD Work Phone: [facility] 10-13-2022 11:26-0400 Body temperature 98.29 [degF] Gloria Bogner PA-C Work Phone: [facility] 10-13-2022 11:26-0400 Body weight 64.86 kg Gloria Bogner PA-C Work Phone: [facility] 10-13-2022 11:26-0400 Diastolic blood pressure 70 mm[Hg] Gloria Bogner PA-C Work Phone: [facility] 10-13-2022 11:26-0400 Heart rate 80 /min Gloria Bogner PA-C Work Phone: [facility] 10-13-2022 11:26-0400 Respiratory rate 16 /min Gloria Bogner PA-C Work Phone: [facility] 10-13-2022 11:26-0400 SaO2% (BldA) [Mass fraction] 98 % Gloria Bogner PA-C Work Phone: [facility] 10-13-2022 11:26-0400 Systolic blood pressure 104 mm[Hg] Gloria Bogner PA-C Work Phone: [facility] 09-18-2022 14:58-0500 Body height 156 cm Pari Blunt SCENERY BUILDER.ASSISTANT PROFESSOR OF SPANISH Work Phone: [facility] 09-18-2022 14:58-0500 Body weight 66.22 kg Pari Yara SCENERY BUILDER.ASSISTANT PROFESSOR OF SPANISH Work Phone: [facility] 09-18-2022 14:58-0500 Diastolic blood pressure 60 mm[Hg] Pari Blunt SCENERY BUILDER.ASSISTANT PROFESSOR OF SPANISH Work Phone: [facility] 09-18-2022 14:58-0500 Systolic blood pressure 104 mm[Hg] Pari Blunt SCENERY BUILDER.ASSISTANT PROFESSOR OF SPANISH Work Phone: [facility] 06-10-2022 11:05-0500 Body height 157.5 cm Pari Blunt SCENERY BUILDER.ASSISTANT PROFESSOR OF SPANISH Work Phone: [facility] 06-10-2022 11:05-0500 Body weight 69.85 kg Pari Blunt SCENERY BUILDER.ASSISTANT PROFESSOR OF SPANISH Work Phone: [facility] 06-10-2022 11:05-0500 Diastolic blood pressure 60 mm[Hg] Pari Blunt SCENERY BUILDER.ASSISTANT PROFESSOR OF SPANISH Work Phone: [facility] 06-10-2022 11:05-0500 Systolic blood pressure 90 mm[Hg] Pari Blunt SCENERY BUILDER.ASSISTANT PROFESSOR OF SPANISH Work Phone: [facility] 05-22-2022 17:32-0500 Body temperature 98.1 [degF] Kylee Praisler-Wood SCENERY BUILDER.ASSISTANT PROFESSOR OF SPANISH Work Phone: [facility] 05-22-2022 17:32-0500 Body weight 70.4 kg Kylee Praisler-Wood SCENERY BUILDER.ASSISTANT PROFESSOR OF SPANISH Work Phone: [facility] 05-22-2022 17:32-0500 Diastolic blood pressure 64 mm[Hg] Kylee Praisler-Wood SCENERY BUILDER.ASSISTANT PROFESSOR OF SPANISH Work Phone: [facility] 05-22-2022 17:32-0500 Heart rate 90 /min Kylee Praisler-Wood SCENERY BUILDER.ASSISTANT PROFESSOR OF SPANISH Work Phone: [facility] 05-22-2022 17:32-0500 Respiratory rate 18 /min Kylee Praisler-Wood SCENERY BUILDER.ASSISTANT PROFESSOR OF SPANISH Work Phone: [facility] 05-22-2022 17:32-0500 SaO2% (BldA) [Mass fraction] 98 % Kylee Praisler-Wood SCENERY BUILDER.ASSISTANT PROFESSOR OF SPANISH Work Phone: [facility] 05-22-2022 17:32-0500 Systolic blood pressure 102 mm[Hg] Kylee Praisler-Wood SCENERY BUILDER.ASSISTANT PROFESSOR OF SPANISH Work Phone: [facility] 02-20-2022 09:08-0400 Body temperature 97.9 [degF] Dee CALLOWAY-C Work Phone: [facility] 02-20-2022 09:08-0400 Body weight 73.03 kg Dee SHIC Work Phone: [facility] 02-20-2022 09:08-0400 Diastolic blood pressure 70 mm[Hg] Dee CALLOWAY-C Work Phone: [facility] 02-20-2022 09:08-0400 Heart rate 80 /min Dee SHIC Work Phone: [facility] 02-20-2022 09:08-0400 Respiratory rate 16 /min Dee Roca PA-C Work Phone: [facility] 02-20-2022 09:08-0400 Systolic blood pressure 92 mm[Hg] Dee Roca PA-C Work Phone: [facility] 01-18-2022 12:34-0400 Diastolic blood pressure 74 mm[Hg] DR RADHA CRUZ MD [facility] 01-18-2022 12:34-0400 Heart rate 76 /min DR RADHA CRUZ MD [facility] 01-18-2022 12:34-0400 Respiratory rate 16 /min DR RADHA CRUZ MD [facility] 01-18-2022 12:34-0400 Systolic blood pressure 115 mm[Hg] DR RADHA CRUZ MD [facility] 01-18-2022 09:30-0400 Diastolic blood pressure 75 mm[Hg] DR RADHA CRUZ MD [facility] 01-18-2022 09:30-0400 Heart rate 75 /min DR RADHA CRUZ MD [facility] 01-18-2022 09:30-0400 Respiratory rate 16 /min DR RADHA CRUZ MD [facility] 01-18-2022 09:30-0400 Systolic blood pressure 95 mm[Hg] DR RADHA CRUZ MD [facility] 01-18-2022 08:17-0400 Diastolic blood pressure 72 mm[Hg] DR RADHA CRUZ MD [facility] 01-18-2022 08:17-0400 Heart rate 88 /min DR RADHA CRUZ MD [facility] 01-18-2022 08:17-0400 Respiratory rate 16 /min DR RADHA CRUZ MD [facility] 01-18-2022 08:17-0400 Systolic blood pressure 117 mm[Hg] DR RADHA CRUZ MD [facility] 01-18-2022 01:27-0400 SaO2% (BldA) [Mass fraction] 43 % DR RADHA CRUZ MD [facility] 01-18-2022 00:54-0400 Body temperature 98.06 [degF] DR RADHA CRUZ MD [facility] 01-18-2022 00:54-0400 Heart rate 101 /min DR RADHA CRUZ MD [facility] 01-03-2022 11:41-0400 Diastolic blood pressure 74 mm[Hg] Pari Blunt SCENERY BUILDER.ASSISTANT PROFESSOR OF SPANISH Work Phone: [facility] 01-03-2022 11:41-0400 Systolic blood pressure 110 mm[Hg] Pari Yara SCENERY BUILDER.ASSISTANT PROFESSOR OF SPANISH Work Phone: [facility] 2021 17:22-0400 Body temperature 97.81 [degF] Daisy Diego SCENERY BUILDER.ASSISTANT PROFESSOR OF SPANISH Work Phone: [facility] 2021 17:22-0400 Diastolic blood pressure 68 mm[Hg] Daisy Diego SCENERY BUILDER.ASSISTANT PROFESSOR OF SPANISH Work Phone: [facility] 2021 17:22-0400 Heart rate 106 /min Daisy Diego SCENERY BUILDER.ASSISTANT PROFESSOR OF SPANISH Work Phone: [facility] 2021 17:22-0400 Respiratory rate 16 /min Daisy Diego SCENERY BUILDER.ASSISTANT PROFESSOR OF SPANISH Work Phone: [facility] 2021 17:22-0400 SaO2% (BldA) [Mass fraction] 99 % Daisy Diego SCENERY BUILDER.ASSISTANT PROFESSOR OF SPANISH Work Phone: [facility] 2021 17:22-0400 Systolic blood pressure 118 mm[Hg] Daisy Diego SCENERY BUILDER.ASSISTANT PROFESSOR OF SPANISH Work Phone: [facility] 11-23-2021 16:46-0400 Body temperature 98.6 [degF] Text Entry [facility] 11-23-2021 16:46-0400 Diastolic blood pressure 83 mm[Hg] Text Entry [facility] 11-23-2021 16:46-0400 Heart rate 76 /min Text Entry [facility] 11-23-2021 16:46-0400 Respiratory rate 16 /min Text Entry [facility] 11-23-2021 16:46-0400 SaO2% (BldA) [Mass fraction] 99 % Text Entry [facility] 11-23-2021 16:46-0400 Systolic blood pressure 120 mm[Hg] Text Entry [facility] 05-28-2021 05:44-0500 Diastolic blood pressure 56 mm[Hg] [facility] 05-28-2021 05:44-0500 Heart rate 92 /min [facility] 05-28-2021 05:44-0500 Mean blood pressure 69 mm[Hg] [facility] 05-28-2021 05:44-0500 Reason For Taking VItal Signs [facility] 05-28-2021 05:44-0500 Respiratory rate 18 /min SARAH REICHFIELD DO [facility] 05-28-2021 05:44-0500 Systolic blood pressure 94 mm[Hg] SARAH REICHFIELD DO [facility] 05-28-2021 02:22-0500 Diastolic blood pressure 71 mm[Hg] SARAH REICHFIELD DO [facility] 05-28-2021 02:22-0500 Heart rate 68 /min [facility] 05-28-2021 02:22-0500 Mean blood pressure 87 mm[Hg] [facility] 05-28-2021 02:22-0500 Respiratory rate 16 /min [facility] 05-28-2021 02:22-0500 Systolic blood pressure 118 mm[Hg] SARAH REICHFIELD DO [facility] 05-27-2021 19:00-0500 Body temperature 98.24 [degF] [facility] 05-27-2021 19:00-0500 Diastolic blood pressure 80 mm[Hg] [facility] 05-27-2021 19:00-0500 Heart rate 88 /min [facility] 05-27-2021 19:00-0500 Respiratory rate 20 /min [facility] 05-27-2021 19:00-0500 Systolic blood pressure 122 mm[Hg] [facility] 04-02-2021 21:52-0400 Diastolic blood pressure 84 mm[Hg] Ting Crook MD Work Phone: [facility] Work Phone: 04-02-2021 21:52-0400 Heart rate 81 [...] 25.51 kg/m2 Ting Crook MD Work Phone: [facility] Work Phone: 04-01-2021 20:23-0400 Body weight 61.24 kg Ting Crook MD Work Phone: [facility] Work Phone: Encounters Encounter Date Encounter Type Care Provider Facility Start: 05-22-2025 ambulatory [facility] Facility :[facility] Start: 04-14-2025 ambulatory [facility] Facility :[facility] Start: 04-11-2025 Encounter for other preprocedural examination Maicol De Los Santos [facility] Start: 04-10-2025 End: 04-10-2025 ambulatory [facility] Facility:[facility] Start: 03-30-2025 End: 03-30-2025 ambulatory [facility] Facility:[facility] Start: 03-29-2025 End: 03-29-2025 [facility] Facility:[facility] Start: 03-24-2025 End: 03-24-2025 Chart abstracting Wu Herrera MD Work Phone: [facility] Comment on above: Abstract (Denzel CISSE) Start: 03-24-2025 End: 03-24-2025 ambulatory [facility] Facility:[facility] Start: 03-22-2025 End: 03-22-2025 Patient encounter procedure Carole Cullenomari [place] Work Phone: [facility] [place] Comment on above: Nausea (Primary Dx); Seasonal allergic rhinitis, unspecified trigger; Pelvic pain Start: 03-22-2025 End: 03-23-2025 [facility] Facility:[facility] Start: 03-15-2025 End: 03-15-2025 Telemedicine consultation with patient Shruthi Haney MD Work Phone: Rheumatology Start: 03-15-2025 End: 03-15-2025 ambulatory Shruthi Haney MD Work Phone: Rheumatology Comment on above: Abnormal CT scan, pe lvis (Primary Dx); Sacroiliac pain; Encounter for observation for other suspected diseases and conditions ruled out; Medication management Start: 03-08-2025 End: 03-08-2025 Follow-up encounter Dee Roca PA-C Work Phone: [facility] Comment on above: Results Start: 03-08-2025 ambulatory UW HERRERA Facili ty:[facility] Start: 03-08-2025 End: 03-08-2025 Subsequent hospital visit by physician Ct Prep [facility] Comment on above: Peritonitis, unspeci fied (HCC) [K65.9] Infection in abdomen (HCC) [K65.9] Start: 03-07-2025 End: 03-07-2025 ambulatory WU HERRERA Facility:[facility] Start: 03-07-2025 End: 03-07-2025 Patient encounter procedure Wu Herrera MD Work Phone: [facility] [place] Comment on above: Osteitis condensans ilii (Primary Dx); Irritable bowel syndrome with constipation; Lymphadenopathy, abdominal; Anorexia nervosa, binge-eating purging type, unspecified severity (HCC); Mild intermittent asthma without complication (HCC); RLQ abdominal pain; Infection in abdomen ([facility]) Start: 03-07-2025 End: 03-07-2025 ambulatory WU HERRERA Facility:[facility] Start: 03-06-2025 End: 03-06-2025 Emergency department patient visit Wu Herrera Facility:[facility] Start: 03-06-2025 End: 03-06-2025 Office outpatient visit 15 minutes Wu Salcedo APRN.CNP Work Phone: [facility] [place] Comment on above: Right lower quadrant abdominal pain (Primary Dx) Start: 03-06-2025 End: 03-06-2025 ambulatory WU HERRERA Facility:[facility] Start: 02-28-2025 End: 02-28-2025 Telemedicine consultation with patient Jose [place] Tae JEANASSISTANT PROFESSOR OF SPANISH Work Phone: Telemedicine Comment on above: Dysuria (Primary Dx) ; Acute cystitis without hematuria Start: 02-28-2025 End: 02-28-2025 ambulatory WU HERRERA Facility:[facility] Start: 02-13-2025 End: 02-13-2025 Telephone encounter Perlita Berry MD [facility] Comment on above: Fab[facility] Transition of Care Start: 02-10-2025 End: 02-10-2025 Patient encounter procedure Venkata Wise APRN.ASSISTANT PROFESSOR OF SPANISH Work Phone: General Surgery Comment on above: Right upper quadrant pain (Primary Dx); Biliary dyskinesia; S/P laparoscopic cholecystectomy Start: 02-10-2025 End: 02-10-2025 ambulatory WU HERRERA Facility:[facility] Start: 02-07-2025 End: 02-07-2025 ambulatory Wu Juradoey Facility:[facility] Start: 02-06-2025 End: 02-06-2025 Telephone encounter Perlita Berry MD [facility] Comment on above: [facility] Start: 01-30-2025 End: 01-30-2025 Chart abstracting Wu Herrera MD Work Phone: [facility] Comment on above: ER Discharge Summary Start: 01-30-2025 End: 01-30-2025 Telephone encounter Perlita Berry MD [facility] Comment on above: [facility] Transition of Care Start: 01-28-2025 End: 01-28-2025 ambulatory Mikayla Up RN NURSE SWITCH HOUSE OPERATOR Start: 01-28-2025 End: 01-28-2025 Patient encounter procedure Mikayla Up RN NURSE SWITCH HOUSE OPERATOR Comment on above: Clinical Update Start: 01-27-2025 End: 01-27-2025 ambulatory OFELIA ZAYAS Facility:[facility] Start: 01-26-2025 End: 01-27-2025 Emergency department patient visit Wu Herrera Facility:[facility] Start: 01-25-2025 End: 01-25-2025 ambulatory WU HOGAN Facility:[facility] Start: 01-24-2025 End: 03-26-2025 Follow-up encounter Becca Castellon MD Work Phone: OB/Gynecology Start: 01-24-2025 End: 01-24-2025 Patient encounter procedure Us Tech 1 [facility] OB/Gynecology Start: 01-24-2025 End: 01-24-2025 ambulatory Principal Scientist [facility] [employer] Remote Work Phone: OB/Gynecology Start: 01-23-2025 End: 01-23-2025 Patient encounter procedure Daisy Hilliard APRN.CNM Work Phone: OB/Gynecology Comment on above: Encounter for gyneco logical examination (general) (routine) with abnormal findings (Primary Dx); Dyspareunia in female; Nexplanon in place; Cyst of right ovary; Vaginal discharge Start: 01-23-2025 End: 01-23-2025 Patient encounter status Daisy Hilliard STEFFEN Work Phone: [facility] Start: 01-23-2025 End: 01-23-2025 ambulatory WU HERRERA Facility:[facility] Start: 01-23-2025 Encounter for gynecological examination (general) (routine) without abnormal findings DAISY HILLIARD [facility] Start: 01-20-2025 End: 01-20-2025 Telephone encounter Wu Herrera MD Work Phone: [facility] Comment on above: Orders Start: 01-19-2025 End: 01-19-2025 Follow-up encounter Dee Roca PA-C Work Phone: [facility] [place] Start: 01-16-2025 End: 01-16-2025 ambulatory WU HERRERA Facility:[facility] Start: 01-11-2025 End: 01-11-2025 Admission to establishment [employer] 2 Work Phone: Pre Anesthesia Start: 01-11-2025 End: 01-11-2025 Preprocedural examination done Pac [employer] 2 Work Phone: [facility] Start: 01-11-2025 End: 01-11-2025 ambulatory WU HERRERA Facility:[facility] Start: 01-11-2025 End: 01-11-2025 Admission to same day surgery center Frankie Rios APRN.CNP Work Phone: Pre Anesthesia Comment on above: Instructions for july shell Smoker (Primary Dx); Mild intermittent asthma without complication (HCC); Severe episode of recurrent major depressive disorder, without psychotic features (HCC); Pre-op evaluation; History of substance abuse (HCC) Start: 01-11-2025 End: 01-11-2025 E-mail encounter from caregiver Frankie Rios APRN.CNP Work Phone: Pre Anesthesia Start: 01-09-2025 End: 01-09-2025 Patient encounter procedure Wu Hogan MD Work Phone: General Surgery Comment on above: Right upper quadrant pain; Biliary dyskinesia Start: 01-09-2025 End: 01-09-2025 ambulatory WU HOGAN Facility:[facility] Start: 01-03-2025 End: 01-03-2025 Telephone encounter Dee Roca PA-C Work Phone: [facility] Comment on above: Patient Question Start: 01-02-2025 End: 01-02-2025 Office outpatient visit 25 minutes Dee Roca PA-C Work Phone: [facility] [place] Comment on above: Biliary colic (Prima ry Dx); Sclerosis of sacroiliac joint Start: 01-02-2025 End: 01-02-2025 ambulatory DEE ROCA Facility:[facility] Start: 12-30-2024 End: 12-31-2024 Emergency department patient visit Wu [facility] Facility:[facility] Start: 12-29-2024 End: 02-28-2025 Follow-up encounter Frankie Varela APRN.CNP Work Phone: [facility] Start: 12-29-2024 End: 12-29-2024 Refill Ofelia Merritt PA-C Work Phone: Gastroenterology [place] Comment on above: Refill Request Start: 12-27-2024 ambulatory DEE Cervantesi ty:[facility] Start: 12-27-2024 End: 12-27-2024 Subsequent hospital visit by physician Ct Prep [facility] Cat Scan Comment on above: Right upper quadrant pain [R10.11] Start: 12-27-2024 End: 12-27-2024 ambulatory Wu Herrera Facility:[facility] Start: 12-21-2024 End: 12-22-2024 Telephone encounter Dee Roca PA-C Work Phone: [facility] Comment on above: Patient Update Start: 12-16-2024 End: 12-16-2024 Office outpatient visit 25 minutes Dee Roca PA-C Work Phone: [facility] [place] Comment on above: Right upper quadrant pain (Primary Dx); FUO (fever of unknown origin); Night sweats; Weight loss; Fatigue, unspecified type; Biliary dyskinesia Start: 12-16-2024 End: 12-16-2024 ambulatory DEE ROCA Facility:[facility] Start: 12-09-2024 ambulatory DEE ABELINO Facili ty:[facility] Start: 12-09-2024 End: 12-09-2024 Subsequent hospital visit by physician [facility] 2 Work Phone: Radiology Comment on above: Night sweat [R61] Start: 12-01-2024 End: 12-01-2024 ambulatory DEE ROCA Facility:[facility] Start: 11-26-2024 End: 01-26-2025 Follow-up encounter Salma Pandey MD Work Phone: [facility] [place] Start: 11-25-2024 End: 11-25-2024 ambulatory SALMA PANDEY Facility:[facility] Start: 11-25-2024 End: 11-25-2024 Office outpatient visit 25 minutes Salma Pandey MD Work Phone: Family [facility] [place] Comment on above: Fatigue, unspecified type (Primary Dx); Night sweats; Weight loss; Headache, unspecified headache type; Lightheadedness; Dry skin; Bruising Start: 11-25-2024 End: 11-25-2024 ambulatory SALMA PANDEY Facility:[facility] Start: 11-21-2024 End: 11-21-2024 ambulatory Wu Herrera Facility:[facility] Start: 10-18-2024 End: 10-18-2024 ambulatory DAISY HILLIARD Facility:[facility] Start: 10-18-2024 End: 10-18-2024 Patient encounter procedure Daisy Hilliard APRN.CNM Work Phone: OB/Gynecology Comment on above: Nexplanon in place ( Primary Dx); Breakthrough bleeding on Nexplanon; HSV-2 infection; Vaginal yeast infection Start: 10-17-2024 End: 10-17-2024 Patient encounter procedure Frankie Varela SCENERY BUILDER.ASSISTANT PROFESSOR OF SPANISH Work Phone: [facility] [place] Comment on above: Rash (Primary Dx) Start: 10-17-2024 End: 10-17-2024 ambulatory FRANKIE VARELA Facility:[facility] Start: 10-17-2024 End: 12-17-2024 Follow-up encounter Lesli Solano SCENERY BUILDER.ASSISTANT PROFESSOR OF SPANISH Work Phone: OB/Gynecology Start: 10-14-2024 End: 10-14-2024 ambulatory LESLI SOLANO Facility:[facility] Start: 10-14-2024 End: 10-14-2024 Patient encounter procedure Lesli Solano SCENERY BUILDER.ASSISTANT PROFESSOR OF SPANISH Work Phone: OB/Gynecology Comment on above: Vulvar lesion (Prima ry Dx); Vaginal irritation Start: 10-13-2024 End: 12-13-2024 Follow-up encounter Frankie Varela SCENERY BUILDER.ASSISTANT PROFESSOR OF SPANISH Work Phone: [facility] Start: 10-11-2024 End: 10-11-2024 Patient encounter procedure Frankie Varela SCENERY BUILDER.ASSISTANT PROFESSOR OF SPANISH Work Phone: [facility] Comment on above: Rash (Primary Dx); Foot pain, bilateral; Irregular periods Start: 10-11-2024 End: 10-11-2024 ambulatory FRANKIE VARELA Facility:[facility] Start: 10-10-2024 End: 12-10-2024 Follow-up encounter Daisy Diego SCENERY BUILDER.ASSISTANT PROFESSOR OF SPANISH Work Phone: [facility] Start: 10-10-2024 End: 10-10-2024 Patient encounter procedure Daisy Diego SCENERY BUILDER.ASSISTANT PROFESSOR OF SPANISH Work Phone: [facility] Comment on above: Rash (Primary Dx) Start: 10-10-2024 End: 10-10-2024 ambulatory DAISY DIEGO Facility:[facility] Start: 10-08-2024 End: 10-08-2024 ambulatory WU HERRERA Facility:[facility] Start: 10-08-2024 End: 10-08-2024 Office outpatient visit 25 minutes Wu Salcedo SCENERY BUILDER.ASSISTANT PROFESSOR OF SPANISH Work Phone: [facility] Comment on above: Rash (Primary Dx) Start: 10-04-2024 End: 10-04-2024 Refill Pari Livingston APRN.ASSISTANT PROFESSOR OF SPANISH Work Phone: OB/Gynecology Comment on above: Refill Request Start: 09-26-2024 End: 09-26-2024 Chart abstracting Wu Herrera MD Work Phone: [facility] Comment on above: ER Discharge Summary Start: 09-23-2024 End: 09-23-2024 Refill Ofelia Merritt PA-C Work Phone: [facility] [place] Comment on above: Refill Request Start: 09-22-2024 End: 09-22-2024 Emergency department patient visit Ulises Radha Facility:[facility] Start: 09-22-2024 End: 09-22-2024 ambulatory WUERIC HERRERA Facility:[facility] Start: 09-22-2024 End: 09-22-2024 Patient encounter procedure Wilver Garcia APRN.ASSISTANT PROFESSOR OF SPANISH Work Phone: [place] [facility] Comment on above: Acute left-sided low back pain with left-sided sciatica (Primary Dx) Start: 09-20-2024 End: 09-20-2024 Follow-up encounter Frankie Varela APRN.ASSISTANT PROFESSOR OF SPANISH Work Phone: [facility] Start: 09-19-2024 End: 09-19-2024 Patient encounter procedure Frankie Varela APRN.ASSISTANT PROFESSOR OF SPANISH Work Phone: [facility] Comment on above: Low platelet count ( HCC) (Primary Dx); Hypermobility arthralgia; Severe episode of recurrent major depressive disorder, without psychotic features (HCC); ÁLVARO (generalized anxiety disorder); Chronic low back pain, unspecified back pain laterality, unspecified whether sciatica present; History of alcohol abuse Start: 09-19-2024 End: 09-19-2024 ambulatory WU HERRERA Facility:[facility] Start: 09-12-2024 End: 09-12-2024 ambulatory Wu Herrera Facility:[facility] Start: 09-08-2024 End: 09-08-2024 Telephone encounter Pari Livingston ASSISTANT PROFESSOR OF SPANISH Work Phone: OB/Gynecology Comment on above: Vaginal Bleeding Start: 09-05-2024 End: 09-05-2024 ambulatory Wade Renae Brenden BROKER IN CHARGE Facility:[facility] Start: 09-05-2024 End: 09-05-2024 Chart abstracting Wu Herrera MD Work Phone: [facility] Comment on above: ER Discharge Summary Start: 09-01-2024 End: 09-01-2024 Telephone encounter Wu Herrera MD Work Phone: [facility] Comment on above: Results Start: 08-30-2024 End: 08-31-2024 Emergency department patient visit Wu Herrera Facility:[facility] Start: 08-30-2024 End: 08-30-2024 ambulatory Pari Livingston APRN.ASSISTANT PROFESSOR OF SPANISH Work Phone: OB/Gynecology Comment on above: Generalized abdomina l pain (Primary Dx); Dizziness; Lightheaded Start: 08-30-2024 End: 08-30-2024 Telemedicine consultation with patient Pari Livingston ASSISTANT PROFESSOR OF SPANISH Work Phone: OB/Gynecology Start: 08-29-2024 End: 10-29-2024 Follow-up encounter Sara Condon APRN.CNM Work Phone: OB/Gynecology Start: 08-29-2024 End: 08-29-2024 ambulatory WU HERRERA Facility:[facility] Start: 08-29-2024 End: 08-29-2024 Patient encounter procedure Sara Condon APRN.GIANFRANCO Work Phone: OB/Gynecology Comment on above: Excessive and freque nt menstruation with regular cycle (Primary Dx); Breakthrough bleeding on Nexplanon Start: 08-27-2024 End: 08-27-2024 ambulatory WU HERRERA Facility:[facility] Start: 08-27-2024 End: 08-27-2024 Patient encounter procedure Wu Herrera MD Work Phone: [facility] Comment on above: Boil (Primary Dx) Start: 08-22-2024 End: 08-22-2024 ambulatory [facility] Facility:[facility] Start: 08-22-2024 End: 08-22-2024 Patient encounter procedure Clement Sheehan MD Work Phone: [facility] [place] Comment on above: Hypermobility arthra lgia (Primary Dx); Severe episode of recurrent major depressive disorder, without psychotic features (HCC); ÁLVARO (generalized anxiety disorder); Chronic low back pain, unspecified back pain laterality, unspecified whether sciatica present; History of alcohol abuse Start: 08-22-2024 End: 08-22-2024 ambulatory Daisy Angeles PT [facility] Comment on above: Hypermobility arthra lgia (Primary Dx) Start: 08-17-2024 End: 08-17-2024 ambulatory Clementina Carter REPAIR TECHNICIAN Work Phone: [facility] Comment on above: Hypermobility arthra lgia (Primary Dx) Start: 08-15-2024 End: 08-15-2024 ambulatory WU HERRERA Facility:[facility] Start: 08-15-2024 End: 08-15-2024 Patient encounter procedure Pari Livingston APRN.CNP Work Phone: OB/Gynecology Comment on above: Folliculitis (Primar y Dx) Start: 08-08-2024 End: 08-08-2024 ambulatory Richard Salazar PT [facility] Comment on above: Hypermobility arthra lgia (Primary Dx) Start: 08-02-2024 End: 08-03-2024 ambulatory Daisy Angeles PT [facility] Comment on above: Traumatic injury of head, initial encounter (Primary Dx) Start: 07-27-2024 End: 07-27-2024 ambulatory Shruthi Haney MD Work Phone: Rheumatology Comment on above: Hypermobility arthra lgia (Primary Dx) Start: 07-27-2024 End: 07-27-2024 Telemedicine consultation with patient Shruthi Haney MD Work Phone: Rheumatology Start: 07-26-2024 End: 07-26-2024 ambulatory Daisy Angeles PT [place] [facility] Physical Therapy Comment on above: Traumatic injury of head, initial encounter (Primary Dx); Concussion with loss of consciousness, initial encounter Start: 07-19-2024 End: 07-19-2024 E-mail encounter from caregiver Wu Herrera MD Work Phone: [facility] Start: 07-19-2024 End: 07-19-2024 Patient encounter procedure Wu Herrera MD Work Phone: [facility] [place] Comment on above: Chronic fatigue (Soraya audrey Dx); Hypermobility arthralgia; Snores; Hypersomnolence Start: 07-19-2024 End: 07-19-2024 ambulatory Wu Herrera MD Work Phone: [facility] Comment on above: EDS Start: 07-18-2024 End: 07-18-2024 ambulatory WU HERRERA Facility:[facility] Start: 07-18-2024 End: 07-18-2024 Subsequent hospital visit by physician [employer] [facility] W[facility] (I-Stat/1.5t) Work Phone: Radiology Comment on above: Traumatic injury of head, initial encounter [S09.90XA] Start: 07-11-2024 End: 07-11-2024 Refill Lesli Solano APRN.CNP Work Phone: OB/Gynecology Comment on above: Refill Request Start: 07-11-2024 End: 07-11-2024 ambulatory WU HERRERA Facility:[facility] Start: 07-11-2024 End: 07-11-2024 Office outpatient visit 25 minutes John Powell MD Work Phone: [facility] Comment on above: Rash (Primary Dx) Start: 07-08-2024 End: 07-08-2024 ambulatory WU HERRERA Facility:[facility] Start: 07-08-2024 End: 07-08-2024 Subsequent hospital visit by physician [facility] Work Phone: Nuclear Medicine Comment on above: RUQ pain [R10.11] Start: 07-03-2024 End: 07-03-2024 Emergency department patient visit Wu Sharon Facility:[facility] Start: 07-01-2024 End: 07-01-2024 Chart abstracting Wu Herrera MD Work Phone: [facility] Comment on above: ER Discharge Summary Start: 06-30-2024 End: 06-30-2024 Emergency department patient visit Wu Herrera Facility:[facility] Start: 06-30-2024 End: 06-30-2024 ambulatory WU Dumont SHARON Facility:[facility] Start: 06-30-2024 End: 06-30-2024 Patient encounter procedure Dee Roca PA-C Work Phone: [facility] Comment on above: Well adult exam (Soraya audrey Dx); ÁLVARO (generalized anxiety disorder); Bipolar 1 disorder (HCC); Post concussive syndrome; PUMA positive; Nausea Start: 06-30-2024 End: 01-11-2025 Patient encounter status Dee Roca PA-C Work Phone: [facility] Work Phone: Start: 06-29-2024 End: 06-29-2024 ambulatory WU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); Anxiety state Start: 06-25-2020 End: 09-18-2022 Patient encounter status Shruthi Estrada MD Work Phone: [facility] Start: 03-11-2018 End: 03-12-2018 Patient encounter RAMIRO Fontaine NEELA [facility] Start: 01-26-2018 End: 01-28-2018 Evaluation and management of inpatient SANA [facility] Start: 01-25-2018 Patient encounter SHRUTHI PEREZ [facility] Start: 01-25-2018 End: 01-26-2018 Emergency department patient visit TONNY [facility] Start: 10-24-2017 End: 10-24-2017 Patient encounter RAMIRO Fontaine NEELA [facility] Start: 07-22-2017 End: 07-23-2017 Emergency department patient visit TONNY [facility] Start: 07-22-2017 End: 07-22-2017 Patient encounter CLAUDIA TAYLOR [facility] Start: 05-31-2017 End: 06-02-2017 Evaluation and management of inpatient NOLBERTO ARGUETA [facility] Start: 05-31-2017 End: 05-31-2017 Patient encounter MARINO GAVIN [facility] Start: 05-31-2017 End: 05-31-2017 Emergency department patient visit [facility] Procedures Date Procedure Procedure Detail Performing Clinician Start: 03-22-2025 UA DIP,URINE HCG (POC) [facility] Provider Start: 03-08-2025 Ct abdomen & pelvis w/contrast material Wu Herrera MD Work Phone: Start: 01-27-2025 History of cholecystectomy Hx laparoscopic cholecystectomy Mikayla Up RN Start: 01-24-2025 Us pelvic nonobstetric real-time image complete Daisy Hilliard APRN.CNM Work Phone: Start: 01-23-2025 UA DIP,URINE HCG (POC) Daisy Hilliard APRN.CNM Work Phone: Start: 12-09-2024 Us abdominal real time w/image limited Dee Roca PA-C Work Phone: Start: 07-18-2024 Mri brain brain stem w/o contrast material Camren Siegel MD Work Phone: Start: 07-08-2024 Gastric [...] 05-25-2024 Basic metabolic panel calcium total Chapo W Wright DO Work Phone: Start: 05-25-2024 Ethanol [Mass/volume] in Serum or Plasma Chapo W Wright DO Work Phone: Start: 04-14-2024 Colonoscopy flx dx w/collj spec when pfrmd Ofelia Merritt PA-C Work Phone: Start: 04-14-2024 Esophagogastroduodenoscopy transoral diagnostic Ofelia Merritt PA-C Work Phone: Start: 04-14-2024 Colonoscopy WU HERRERA Start: 04-07-2024 Us pelvic nonobstetric real-time image complete Lesli Pinzonalvaro LEES.ASSISTANT PROFESSOR OF SPANISH Work Phone: Start: 04-04-2024 Radiologic exam chest 2 views Siri Espitia APRN.ASSISTANT PROFESSOR OF SPANISH Work Phone: Start: 03-31-2024 Microscopic observation [Identifier] [...] 11-12-2023 Us preg uterus after 1st trimest 07/13 gestation Shruthi Estrada MD Work Phone: Start: 11-02-2023 URINE OB DIP B/O Shruthi Estrada MD Work Phone: Start: 10-19-2023 Us preg uterus after 1st trimest 1/ gestation Daisy Hilliard APRN.CNM Work Phone: Start: [...] test visual color cmprsn meths Siri Espitia APRN.ASSISTANT PROFESSOR OF SPANISH Work Phone: Start: 03-23-2023 INFLUENZA VACCINE, AGE 6 MO - 64 YR, QUADRIVALENT (AFLURIA, FLULAVAL, FLUZONE) Dee Roca PA-C Work Phone: Start: 12-10-2022 Radex spine lumbosacral 2/3 views Lissette Jay PA-C Work Phone: Start: 12-10-2022 Urnls dip stick/tablet rgnt auto w/o microscopy Lissette Jay PA-C Work Phone: Start: 11-13-2022 Us abdominal real time w/image limited Gaetano Schneider MD Work Phone: Start: 11-07-2022 Radiologic exam abdomen 3+ views Gaetano Schneider MD Work Phone: Start: 06-24-2022 Us breast uni real time with image limited Pari Livingston APRN.ASSISTANT PROFESSOR OF SPANISH Work Phone: Start: 11-22-2021 End: 11-22-2021 EKG impression [facility] Start: 11-21-2021 End: 11-21-2021 Arterial Full Panel -Stat Wade Hernández Start: 06-02-2021 Ecg routine ecg w/least 12 lds i&r only Start: 04-02-2021 Blood count complete auto&auto difrntl wbc Сергей Murguia MD Work Phone: Start: 04-01-2021 COVID-19 Maxwell Cramer PA-C Work Phone: Start: 04-01-2021 Drug screen class list a Leashaye Vences PA-C Work Phone: Start: 04-01-2021 Drug tst prsmv instrmnt chem analyzers pr date Maxwell Cramer PA-C Work Phone: Start: 04-01-2021 Assay of ethanol Lea Vences PA-C Work Phone: Start: 04-01-2021 Comprehensive metabolic panel Lea Vences PA-C Work Phone: History of cholecystectomy S/P l aparoscopic cholecystectomy Venkata Wise SCENERY BUILDER.ASSISTANT PROFESSOR OF SPANISH Work Phone: Plan of Treatment Date Care Activity Detail Author Start: 2061 RSV Vaccine (1 - 1-dose 60+ series) RSV Vaccine (1 - 1-dose 60+ series) [facility] Start: 12-25-2051 Zoster Vaccines (1 of 2) Zoster Vaccines (1 of 2) [facility] Start: 09-24-2033 DTaP/Tdap/Td Vaccines (8 - Td or Tdap) DTaP/Tdap/Td Vaccines (8 - Td or Tdap) [facility] Start: 09-24-2033 Urine microalbumin profile DTaP,Tdap,Td Vaccine (8 - Td or Tdap) [facility] Start: 04-06-2027 Urine microalbumin profile [facility] Start: 03-31-2027 Screening for malignant neoplasm of cervix [facility] Start: 05-19-2026 Pap Testing Pap Testing [facility] Start: 05-19-2026 Screening for malignant neoplasm of cervix [facility] Start: 03-07-2026 Annual PCP Team Chronic Disease Visit Annual PCP Team Chronic Disease Visit [facility] Start: 01-02-2026 Annual PCP Team Chronic Disease Visit Annual PCP Team Chronic Disease Visit [facility] Start: 12-16-2025 Annual PCP Team Chronic Disease Visit Annual PCP Team Chronic Disease Visit [facility] Start: 12-01-2025 Annual PCP Team Chronic Disease Visit Annual PCP Team Chronic Disease Visit [facility] Start: 11-25-2025 Annual PCP Team Chronic Disease Visit Annual PCP Team Chronic Disease Visit [facility] Start: 10-17-2025 Annual PCP Team Chronic Disease Visit Annual PCP Team Chronic Disease Visit [facility] Start: 10-11-2025 Annual PCP Team Chronic Disease Visit Annual PCP Team Chronic Disease Visit [facility] Start: 09-19-2025 Annual PCP Team Chronic Disease Visit Annual PCP Team Chronic Disease Visit [facility] Start: 08-27-2025 Annual PCP Team Chronic Disease Visit Annual PCP Team Chronic Disease Visit [facility] Start: 08-22-2025 Annual PCP Team Chronic Disease Visit Annual PCP Team Chronic Disease Visit [facility] Start: 07-19-2025 Annual PCP Team Chronic Disease Visit Annual PCP Team Chronic Disease Visit [facility] Start: 07-03-2025 End: 07-03-2025 Patient encounter procedure 07/03/2025 1:20 PM EST Office Visit [facility] [address] [place], [place] [phone] Dee Roca PA-C [address] [facility] [place] [phone] physical [facility] Comment on above: physical Start: 06-30-2025 Annual PCP Team Chronic Disease Visit Annual PCP Team Chronic Disease Visit [facility] Start: 06-30-2025 Covid-19 Vaccine ( season) Covid-19 Vaccine ( season) [facility] Comment on above: Postponed from 03/13/2024 (Declined at t his time) Start: 06-15-2025 GC (Gonorrhea) Screening (18-24) GC (Gonorrhea) Screening (18-24) [facility] Start: 06-15-2025 Screening for Chlamydia trachomatis Chlamydia Screening (18-24) [facility] Start: 05-28-2025 Annual PCP Team Chronic Disease Visit Annual PCP Team Chronic Disease Visit [facility] Start: 03-31-2025 GC (Gonorrhea) Screening (18-24) GC (Gonorrhea) Screening (18-24) [facility] Start: 03-31-2025 Screening for Chlamydia trachomatis Chlamydia Screening (18-) [facility] Start: 03-31-2025 Screening for malignant neoplasm of cervix Cervical Cancer Screening [facility] Start: 03-31-2025 End: 03-31-2025 Patient encounter procedure 03/31/2025 9:15 AM EDT Office Visit OB/Gynecology [address] [place], [place] [phone] Lesli Solano APRN.ASSISTANT PROFESSOR OF SPANISH [address] [place], [place] [phone] Cervical Cancer Screening OB/Gynecology Comment on above: Cervical Cancer Screening Start: 03-22-2025 End: 06-21-2025 Choriogonadotropin ( test) [Presence] in Urine HCG, QUALITATIVE, URINE Lab Routine Nausea Expected: 03/22/2025, Expires: 06/21/2025 [facility] Work Phone: Comment on above: Expected: 03/22/2025, Expires: Start: 03-22-2025 End: 03-22-2025 ambulatory 03/22/2025 8:20 AM EDT [facility] [address] [address] [place] [address] [place] [address] Finding of sclerosis on CT scan - request Rheumatology Comment on above: Finding of sclerosis on CT scan - mc req uest Start: 03-16-2025 Annual PCP Team Chronic Disease Visit Annual PCP Team Chronic Disease Visit [facility] Start: 03-15-2025 End: 03-15-2025 ambulatory 03/15/2025 8:20 AM EDT [facility] [address] [address] [place] [address] [place] [phone] Finding of sclerosis on CT scan - request Rheumatology Comment on above: Finding of sclerosis on CT scan - req uest Start: 03-13-2025 Influenza vaccination Influenza Vaccine (#1) [facility] Start: 03-08-2025 End: 03-08-2025 Patient encounter procedure RADIO [facility] Comment on above: Infection in abdomen (HCC) [K65.9] Start: 03-07-2025 End: 03-07-2025 Patient encounter procedure 03/07/2025 10:40 AM EDT Office Visit Family [facility] [address] [place] [address] Wu Herrera MD [address] [place], [place] [phone] Review CT scan and symptoms. Didn't receive clarity on CT, asking about lymph nodes, sclerosis in SI joint, referral to Pain Mgmt. [facility] Comment on above: Review CT scan and symptoms. Didn't rece alex clarity on CT, asking about lymph nodes, sclerosis in SI joint, referral to Pain Mgmt. Start: 02-28-2025 Annual PCP Team Chronic Disease Visit Annual PCP Team Chronic Disease Visit [facility] Start: 02-15-2025 End: 02-15-2025 Patient encounter procedure 02/15/2025 11:20 AM EDT Office Visit Family [facility] [address] [place], [place] [phone] Wu Herrera MD [address] [place], [place] [phone] Review CT scan and symptoms. Didn't receive clarity on CT, asking about lymph nodes, sclerosis in SI joint, referral to Pain Mgmt. [facility] Comment on above: Review CT scan and symptoms. Didn't rece alex clarity on CT, asking about lymph nodes, sclerosis in SI joint, referral to Pain Mgmt. Start: 02-10-2025 End: 02-10-2025 Patient encounter procedure General Surgery Comment on above: S/p laparoscopic cholecystectomy 7/16 DP LC Start: 01-25-2025 End: 01-25-2025 Admission to same day surgery center 01/25/2025 12:37 PM EDT - 01/25/2025 2:[address] [facility] [address] [place] [address] Wu Hogan MD [address] [place] [address] LAPAROSCOPIC CHOLECYSTECTOMY POSSIBLE OPEN [facility] Surgery Comment on above: LAPAROSCOPIC CHOLECYSTECTOMY POSSIBLE OP EN Start: 01-25-2025 End: 01-25-2025 Laparoscopy surg cholecystectomy LAPAROSCOPIC CHOLECYSTECTOMY POSSIBLE OPEN Right upper quadrant pain Biliary dyskinesia 01/25/2025 12:37 PM EDT ME OR Start: 01-25-2025 Subsequent hospital visit by physician 01/25/2025 12:37 PM EDT Hospital Encounter [facility] [address] [place] [address] Wu Hogan MD [address] [place] [address] Right upper quadrant pain [R10.11], Biliary dyskinesia [K82.8] [facility] Surgery Comment on above: Right upper quadrant pain [R10.11], Bili elvi dyskinesia [K82.8] Start: 01-25-2025 End: 01-25-2025 Admission to same day surgery center 01/25/2025 8:30 AM EDT - 01/25/2025 10:[address] [facility] Surgery [address] [place] [address] Wu Hogan MD [address] [place] [address] LAPAROSCOPIC CHOLECYSTECTOMY POSSIBLE OPEN [facility] Surgery Comment on above: LAPAROSCOPIC CHOLECYSTECTOMY POSSIBLE OP EN Start: 01-25-2025 Subsequent hospital visit by physician 01/25/2025 8:30 AM EDT Hospital Encounter [facility] Surgery [address] [place] [address] Wu Hogan MD [address] [place] [address] Right upper quadrant pain [R10.11], Biliary dyskinesia [K82.8] [facility] Surgery Comment on above: Right upper quadrant pain [R10.11], Bili elvi dyskinesia [K82.8] Start: 01-25-2025 End: 01-25-2025 Laparoscopy surg cholecystectomy [facility] OR Start: 01-24-2025 End: 01-24-2025 Patient encounter procedure 01/24/2025 4:00 PM EDT Office Visit OB/Gynecology [address] [place] [address] Pari Livingston, SCENERY BUILDER.ASSISTANT PROFESSOR OF SPANISH [address] [place] [address] Annual Exam OB/Gynecology Comment on above: Annual Exam Start: 01-24-2025 End: 01-24-2025 ambulatory 01/24/2025 1:30 PM EDT Procedure OB/Gynecology [address] [place] [address] Remote, Principal Scientist [employer] [address] [place] [address] Dyspareunia in female [N94.10]; Cyst of right ovary [N83.201] OB/Gynecology Comment on above: Dyspareunia in female [N94.10]; Cyst of right ovary [N83.201] Start: 01-23-2025 End: 01-23-2026 US Pelvis PELVIC US [facility] Anc Imaging Routine Dyspareunia in female Cyst of right ovary Expected: 01/23/2025, Expires: 01/23/2026 [facility] Work Phone: Comment on above: Expected: 01/23/2025, Expires: Start: 01-19-2025 End: 01-19-2025 Patient encounter procedure 01/19/2025 1:00 PM EDT Office Visit OB/Gynecology [address] [place] [address] Pari Livingston, SCENERY BUILDER.ASSISTANT PROFESSOR OF SPANISH [address] [place] [address] Annual Exam OB/Gynecology Comment on above: Annual Exam Start: 01-17-2025 Annual PCP Team Chronic Disease Visit Annual PCP Team Chronic Disease Visit [facility] Start: 01-16-2025 End: 01-16-2025 Patient encounter procedure 01/16/2025 3:30 PM EDT Office Visit OB/Gynecology [address] [place] [address] Pari Livingston APRN.ASSISTANT PROFESSOR OF SPANISH [address] [place] [address] Annual Exam OB/Gynecology Comment on above: Annual Exam Start: 01-16-2025 End: 01-16-2025 Patient encounter procedure 01/16/2025 12:15 PM EDT Office Visit [facility] Draw Station [address] [place] [address] lab [facility] Draw Station Comment on above: lab Start: 01-09-2025 End: 01-09-2025 Patient encounter procedure General Surgery Comment on above: ct follow up FU: CT 12/27/2024. K ROSA Start: 01-02-2025 End: 04-03-2025 HLA-B27 PCR HLA-B27 PCR Lab Routine Sclerosis of sacroiliac joint Expected: 01/02/2025, Expires: 04/03/2025 [facility] Work Phone: Comment on above: Expected: 01/02/2025, Expires: Start: 01-02-2025 End: 01-02-2025 Patient encounter procedure 01/02/2025 11:40 AM EDT Office Visit [facility] [address] [facility] [place] [place] [address] Dee Roca PA-C [address] [place] [address] CT Scan Follow up [facility] Comment on above: CT Scan Follow up Start: 12-27-2024 End: 12-27-2024 Patient encounter procedure Cat Scan Comment on above: Right upper quadrant pain [R10.11] Start: 12-16-2024 End: 03-17-2025 Amylase [Enzymatic activity/volume] in Serum or Plasma [facility] Comment on above: Expected: 12/16/2024, Expires: Start: 12-16-2024 End: 03-17-2025 CATECHOLAMINES FRACTIONATED, URINE FREE CATECHOLAMINES FRACTIONATED, URINE FREE Lab Routine FUO (fever of unknown origin) Night sweats Weight loss Fatigue, unspecified type Expected: 12/16/2024, Expires: 03/17/2025 [facility] Comment on above: Expected: 12/16/2024, Expires: Start: 12-16-2024 End: 03-17-2025 Lipase [Enzymatic activity/volume] in Serum or Plasma [facility] Comment on above: Expected: 12/16/2024, Expires: Start: 12-13-2024 Annual PCP Team Chronic Disease Visit Annual PCP Team Chronic Disease Visit [facility] Start: 12-01-2024 End: 12-01-2024 Patient encounter procedure 12/01/2024 1:00 PM EDT Office Visit [facility] [address] [place], [place] [phone] Dee Roca PA-C [address] [place], [place] [phone] f/up [facility] Comment on above: f/up Start: 11-25-2024 End: 02-24-2025 Bacteria identified in Urine by Culture [facility] Comment on above: Expected: 11/25/2024, Expires: Start: 11-25-2024 End: 02-24-2025 CBC W Auto Differential panel - Blood [facility] Work Phone: Comment on above: Expected: 11/25/2024, Expires: Start: 11-25-2024 End: 02-24-2025 Comprehensive metabolic 2000 panel - Serum or Plasma [facility] Comment on above: Expected: 11/25/2024, Expires: Start: 11-25-2024 End: 02-24-2025 JENNY CHEUNG PANEL [facility] Comment on above: Expected: 11/25/2024, Expires: Start: 11-25-2024 End: 02-24-2025 T4/FTI/T4U [facility] Comment on above: Expected: 11/25/2024, Expires: Start: 11-25-2024 End: 02-24-2025 Thyrotropin [Units/volume] in Serum or Plasma [facility] Comment on above: Expected: 11/25/2024, Expires: Start: 11-25-2024 End: 02-24-2025 Urinalysis complete panel - Urine [facility] Comment on above: Expected: 11/25/2024, Expires: Start: 10-31-2024 End: 10-31-2024 ambulatory 10/31/2024 9:00 AM EDT [facility] [address] [phone] Carmen Siegel MD [address] [place] [phone] Neurology Start: 10-18-2024 End: 10-18-2024 Patient encounter procedure 10/18/2024 11:30 AM EDT Office Visit OB/Gynecology [address] [place] [address] Daisy Hilliard APRN.CN [address] [place] [address] HSV2 positive discussion OB/Gynecology Comment on above: HSV2 positive discussion Start: 10-17-2024 End: 10-17-2024 Patient encounter procedure 10/17/2024 4:20 PM EDT Office Visit [facility] [address] [place], [place] [phone] Frankie Varela APRN.ASSISTANT PROFESSOR OF SPANISH [address] [place], [place] [phone] rash follow up [facility] Comment on above: rash follow up Start: 10-14-2024 End: 01-13-2025 Herpes simplex virus+Varicella zoster virus DNA [Presence] in Unspecified specimen by YAYO with probe detection [facility] Work Phone: Comment on above: Expected: 10/14/2024, Expires: Start: 10-11-2024 End: 01-10-2025 Borrelia burgdorferi IgG and IgM panel - Serum [facility] Comment on above: Expected: 10/11/2024, Expires: Start: 10-11-2024 End: 01-10-2025 C reactive protein [Mass/volume] in Serum or Plasma [facility] Comment on above: Expected: 10/11/2024, Expires: Start: 10-11-2024 End: 01-10-2025 Choriogonadotropin.beta subunit [Units/volume] in Serum or Plasma [facility] Comment on above: Expected: 10/11/2024, Expires: Start: 10-11-2024 End: 01-10-2025 Erythrocyte sedimentation rate [facility] Comment on above: Expected: 10/11/2024, Expires: Start: 10-11-2024 End: 01-10-2025 Nuclear Ab [Presence] in Serum by Immunoassay [facility] Work Phone: Comment on above: Expected: 10/11/2024, Expires: Start: 10-11-2024 End: 01-10-2025 Rheumatoid factor [Units/volume] in Serum or Plasma [facility] Comment on above: Expected: 10/11/2024, Expires: Start: 10-11-2024 End: 10-11-2024 Patient encounter procedure 10/11/2024 11:20 AM EDT Office Visit [facility] [address] [place], [place] [phone] Frankie Varela APRN.[facility] [address] [place], [place] [phone] Rash on feet [facility] Comment on above: Rash on feet Start: 10-10-2024 End: 01-09-2025 Comprehensive metabolic 2000 panel - Serum or Plasma [facility] Comment on above: Expected: 10/10/2024, Expires: Start: 10-10-2024 End: 01-09-2025 HIV 1+2 Ab [Presence] in Serum or Plasma by Immunoassay [facility] Work Phone: Comment on above: Expected: 10/10/2024, Expires: Start: 09-27-2024 End: 09-27-2024 Patient encounter procedure 09/27/2024 2:30 PM EDT Office Visit [facility] [address] [place] [place] [phone] Pari Livingston APRN.ASSISTANT PROFESSOR OF SPANISH [address], [place] [phone] f/u irregular bleeding (pt requested) OB/Gynecology Comment on above: f/u irregular bleeding (pt requested) Start: 09-24-2024 Annual PCP Team Chronic Disease Visit Annual PCP Team Chronic Disease Visit [facility] Start: 09-22-2024 End: 09-22-2024 Follow-up encounter [facility] Comment on above: 3 month follow up office visit, early sa tiety, constipation Start: 09-19-2024 End: 09-19-2024 Patient encounter procedure 09/19/2024 4:20 PM EDT Office Visit [facility] [address] [place], [place] [phone] Frankie Varela, YOANA.ASSISTANT PROFESSOR OF SPANISH [address] [place], [place] [phone] 4WK FOllOW UP [facility] Comment on above: 4WK FOllOW UP Start: 09-19-2024 End: 12-19-2024 CBC W Auto Differential panel - Blood [facility] Work Phone: Comment on above: Expected: 09/19/2024, Expires: Start: 09-13-2024 End: 09-13-2024 Patient encounter procedure 09/13/2024 2:40 PM EST Office Visit [facility] [place] [address] [place] [address] Wu Herrera MD [address] [place] [address] ER follow up [facility] Comment on above: ER follow up Start: 09-10-2024 Annual PCP Team Chronic Disease Visit Annual PCP Team Chronic Disease Visit [facility] Start: 09-05-2024 End: 09-05-2024 ambulatory 09/05/2024 3:30 PM EST OT/PT/Speech Visit [facility] Physical Therapy [address] [place] [address] Daisy Angeles, PT Traumatic injury of head, initial encounter [S09.90XA] [facility] Comment on above: Traumatic injury of head, initial encoun ter [S09.90XA] Start: 08-30-2024 End: 08-30-2024 Patient encounter procedure 08/30/2024 1:45 PM EST Office Visit OB/Gynecology [address] [place] [address] Pari Livingston APRN.ASSISTANT PROFESSOR OF SPANISH [address] [place] [address] labia bump not resolving OB/Gynecology Comment on above: labia bump not resolving Start: 08-29-2024 End: 08-29-2024 ambulatory 08/29/2024 1:15 PM EST OT/PT/Speech Visit [facility] Physical Therapy [address] [place] [address] Daisy Angeles, PT Traumatic injury of head, initial encounter [S09.90XA] [facility] Physical Therapy Comment on above: Traumatic injury of head, initial encoun ter [S09.90XA] Start: 08-23-2024 End: 08-23-2024 ambulatory 08/23/2024 3:00 PM EST OT/PT/Speech Visit [facility] Physical Therapy [address] [place] [address] O'Daisy Posada, PT S09.90XA (ICD-10-CM) - Traumatic injury of head, initial encounter [facility] Physical Therapy Comment on above: S09.90XA (ICD-10-CM) - Traumatic injury of head, initial encounter Start: 08-22-2024 End: 08-22-2024 ambulatory 08/22/2024 2:45 PM EST OT/PT/Speech Visit [facility] Physical Therapy [address] [place] [address] O'Daisy Posada, PT Traumatic injury of head, initial encounter [S09.90XA] [facility] Physical Therapy Comment on above: Traumatic injury of head, initial encoun ter [S09.90XA] Start: 08-16-2024 End: 08-16-2024 ambulatory 08/16/2024 2:15 PM EST OT/PT/Speech Visit [facility] Physical Therapy [address] [place] [address] O'Daisy Posada, PT S09.90XA (ICD-10-CM) - Traumatic injury of head, initial encounter [facility] Physical Therapy Comment on above: S09.90XA (ICD-10-CM) - Traumatic injury of head, initial encounter Start: 08-10-2024 End: 08-10-2024 Patient encounter procedure 08/10/2024 1:00 PM EST Office Visit Adult Neurology [address] [place] [address] Carmen Siegel MD [address] [place] [address] Encounter for screening mammogram for malignant neoplasm of breast [Z12.31] Adult Neurology Comment on above: Encounter for screening mammogram for ma lignant neoplasm of breast [Z12.31] Start: 08-09-2024 End: 08-09-2024 ambulatory 08/09/2024 11:15 AM EST OT/PT/Speech Visit [facility] Physical Therapy [address] [place] [address] Daisy Angeles, PT S09.90XA (ICD-10-CM) - Traumatic injury of head, initial encounter [facility] Comment on above: S09.90XA (ICD-10-CM) - Traumatic injury of head, initial encounter Start: 08-08-2024 End: 08-08-2024 Patient encounter procedure 08/08/2024 1:30 PM EST Office Visit OB/Gynecology [address] [place] [address] Pari Livingston, YOANA.ASSISTANT PROFESSOR OF SPANISH [address] [place] [address] STD testing OB/Gynecology Comment on above: STD testing Start: 08-08-2024 End: 08-08-2024 ambulatory 08/08/2024 11:30 AM EST OT/PT/Speech Visit [facility] Physical Therapy [address] [place] [address] Richard Salazar, PT hyper mobility [facility] Comment on above: hyper mobility Start: 08-02-2024 End: 08-02-2024 ambulatory 08/02/2024 1:30 PM EST OT/PT/Speech Visit [facility] Therapy [address] [place] [address] Daisy Angeles, PT S09.90XA (ICD-10-CM) - Traumatic injury of head, initial encounter [facility] Comment on above: S09.90XA (ICD-10-CM) - Traumatic injury of head, initial encounter Start: 07-27-2024 End: 07-27-2024 ambulatory 07/27/2024 1:15 PM EST [facility] Rheumatology [address] [address] [place] [address] [place], [place] [id number] Return in about 4 weeks (around 07/14/2024). Rheumatology Comment on above: Return in about 4 weeks (around 07/14/2024 ). Start: 07-26-2024 End: 07-26-2024 ambulatory 07/26/2024 9:45 AM EST OT/PT/Speech Visit [facility] [address] [place] [address] Daisy Angeles, PT Post concussion symptoms [facility] Comment on above: Post concussion symptoms Start: 07-20-2024 Annual PCP Team Chronic Disease Visit Annual PCP Team Chronic Disease Visit [facility] Start: 07-19-2024 End: 07-19-2024 Patient encounter procedure 07/19/2024 9:20 AM EST Office Visit Family Medicine [facility] [address] [place] [address] Wu Herrera MD [address] [place] [address] Follow up Family Medicine [facility] Comment on above: Follow up Start: 07-18-2024 End: 07-18-2024 Patient encounter procedure 07/18/2024 1:00 PM EST Appointment Radiology [address] [place] [address] Traumatic injury of head, initial encounter [S09.90XA] Radiology Comment on above: Traumatic injury of head, initial encoun ter [S09.90XA] Start: 07-08-2024 End: 07-08-2024 Patient encounter procedure 07/08/2024 8:00 AM EST Appointment Nuclear Medicine [address] [place] [address] RUQ pain [R10.11] Nuclear Medicine Comment on above: RUQ pain [R10.11] Start: 06-30-2024 End: 06-30-2024 Patient encounter procedure Family Medicine [facility] Comment on above: physical Start: 06-29-2024 End: 06-29-2024 Patient encounter procedure 06/29/2024 1:00 PM EST Office Visit Adult Neurology [address] [place] [address] Carmen Siegel MD [address] [place] [address] Encounter for screening mammogram for malignant neoplasm of breast [Z12.31] Adult Neurology Comment on above: Encounter for screening mammogram for ma lignant neoplasm of breast [Z12.31] Start: 06-23-2024 End: 06-23-2024 Follow-up encounter 06/23/2024 12:30 PM EST [facility] [place] [address] [place] [phone] Ofelia Merritt PA-C [address] [place] [address] 3 month follow up office visit, diarrhea, stool testing done at [facility] Comment on above: 3 month follow up office visit, diarrhea , stool testing done at [facility] Start: 06-23-2024 End: 06-23-2024 Patient encounter procedure 06/23/2024 12:30 PM EST Office Visit Gastroenterology [place] [address] [place] [phone] Ofelia Merritt PA-C [address] [place] [address] 3 month follow up office visit, diarrhea, stool testing done at [facility] Comment on above: 3 month follow up office visit, diarrhea , stool testing done at [facility] Start: 06-16-2024 End: 06-16-2024 Patient encounter procedure 06/16/2024 2:20 PM EST Office Visit Rheumatology [address] [place] [id number] [place] [address] [place] [address] PUMA positive [R76.8]; Fatigue, unspecified type [R53.83]; Bone pain [M89.8X9]; Muscle pain [M79.10] Rheumatology Comment on above: PUMA positive [R76.8]; Fatigue, unspecifi ed type [R53.83]; Bone pain [M89.8X9]; Muscle pain [M79.10] Start: 06-16-2024 End: 09-15-2024 C reactive protein [Mass/volume] in Serum or Plasma [facility] Comment on above: Expected: 06/16/2024, Expires: Start: 06-16-2024 End: 09-15-2024 Complement C3 [Mass/volume] in Serum or Plasma [facility] Comment on above: Expected: 06/16/2024, Expires: Start: 06-16-2024 End: 09-15-2024 Complement C4 [Mass/volume] in Serum or Plasma [facility] Comment on above: Expected: 06/16/2024, Expires: Start: 06-16-2024 End: 09-15-2024 Cyclic citrullinated peptide IgG Ab [Units/volume] in Serum or Plasma [facility] Work Phone: Comment on above: Expected: 06/16/2024, Expires: Start: 06-16-2024 End: 09-15-2024 DNA double strand Ab [Units/volume] in Serum by Immunoassay [facility] Comment on above: Expected: 06/16/2024, Expires: Start: 06-16-2024 End: 09-15-2024 Erythrocyte sedimentation rate [facility] Comment on above: Expected: 06/16/2024, Expires: Start: 06-16-2024 End: 09-15-2024 Extractable nuclear Ab panel - Serum [facility] Comment on above: Expected: 06/16/2024, Expires: Start: 06-16-2024 End: 09-15-2024 Ferritin [Mass/volume] in Serum or Plasma [facility] Comment on above: Expected: 06/16/2024, Expires: Start: 06-16-2024 End: 09-15-2024 Folate [Mass/volume] in Serum or Plasma [facility] Comment on above: Expected: 06/16/2024, Expires: Start: 06-16-2024 End: 09-15-2024 HISTONE IGG FAISAL [facility] Comment on above: Expected: 06/16/2024, Expires: Start: 06-16-2024 End: 09-15-2024 IMMUNOFIXATION SCREEN, SERUM [facility] Comment on above: Expected: 06/16/2024, Expires: Start: 06-16-2024 End: 09-15-2024 Iron and Iron binding capacity panel - Serum or Plasma [facility] Comment on above: Expected: 06/16/2024, Expires: Start: 06-16-2024 End: 09-15-2024 KAPPA/HARDY,FREE,SER [facility] Comment on above: Expected: 06/16/2024, Expires: Start: 06-16-2024 End: 09-15-[address] [facility] Comment on above: Expected: 06/16/2024, Expires: Start: 06-16-2024 End: 09-15-2024 Magnesium [Mass/volume] in Serum or Plasma [facility] Comment on above: Expected: 06/16/2024, Expires: Start: 06-16-2024 End: 09-15-2024 MONOCLONAL PROT UR W/INTERP [facility] Comment on above: Expected: 06/16/2024, Expires: Start: 06-16-2024 End: 09-15-2024 PROTEIN ELECT RND UR W/INTERP PROTEIN ELECT RND UR W/INTERP Lab Routine PUMA positive Fatigue, unspecified type Bone pain Muscle pain Hypermobility arthralgia Rash of face Autonomic dysfunction Sicca syndrome (HCC) Expected: 06/16/2024, Expires: 09/15/2024 [facility] Comment on above: Expected: 06/16/2024, Expires: Start: 06-16-2024 End: 09-15-2024 PROTEIN ELECTROPHORESIS SERUM W/INTERP [facility] Comment on above: Expected: 06/16/2024, Expires: Start: 06-16-2024 End: 09-15-2024 Protein/Creatinine [Mass Ratio] in Urine [facility] Comment on above: Expected: 06/16/2024, Expires: Start: 06-16-2024 End: 09-15-2024 Rheumatoid factor [Units/volume] in Serum or Plasma [facility] Comment on above: Expected: 06/16/2024, Expires: Start: 06-16-2024 End: 09-15-2024 Urinalysis complete panel - Urine [facility] Comment on above: Expected: 06/16/2024, Expires: Start: 06-16-2024 End: 09-15-2024 Zinc [Mass/volume] in Serum or Plasma [facility] Comment on above: Expected: 06/16/2024, Expires: Start: 06-01-2024 Annual PCP Team Chronic Disease Visit Annual PCP Team Chronic Disease Visit [facility] Start: 05-28-2024 End: 05-28-2024 Patient encounter procedure 05/28/2024 11:00 AM EST Office Visit Family Medicine [place] [address] [place] [address] Wu Herrera MD [address] [place] [address] Concussion [facility] [place] Comment on above: Concussion Start: 05-19-2024 Chlamydia Screening (18-24) Chlamydia Screening (18-24) [facility] Start: 05-19-2024 GC (Gonorrhea) Screening (18-24) GC (Gonorrhea) Screening (18-24) [facility] Start: 05-19-2024 Screening for Chlamydia trachomatis Chlamydia Screening (18-24) [facility] Start: 05-01-2024 Annual PCP Team Chronic Disease Visit Annual PCP Team Chronic Disease Visit [facility] Start: 04-14-2024 End: 04-14-2024 Patient encounter procedure 04/14/2024 9:30 AM EDT Appointment Ambulatory Surgery [address] [place] [address] Wu Hogan MD [address] [place] [address] Ambulatory Surgery Start: 04-07-2024 End: 04-07-2024 ambulatory OB/Gynecology Comment on above: 13 weeks gestation of [Z3A.13] ; Supervision of high risk in second trimester [O09.92] Start: 03-31-2024 End: 06-30-2024 THYROID PEROXIDASE ANTIBODY THYROID PEROXIDASE ANTIBODY Lab Routine Unintended weight loss Expected: 03/31/2024, Expires: 06/30/2024 [facility] Comment on above: Expected: 03/31/2024, Expires: Start: 03-31-2024 End: 06-30-2024 Thyrotropin [Units/volume] in Serum or Plasma THYROID STIMULATING HORMONE Lab Routine Unintended weight loss Expected: 03/31/2024, Expires: 06/30/2024 [facility] Comment on above: Expected: 03/31/2024, Expires: Start: 03-31-2024 End: 06-30-2024 Thyroxine (T4) free [Mass/volume] in Serum or Plasma T4 FREE/FREE THYROXINE Lab Routine Unintended weight loss Expected: 03/31/2024, Expires: 06/30/2024 [facility] Comment on above: Expected: 03/31/2024, Expires: 4 Start: 03-31-2024 End: 03-31-2025 US Pelvis PELVIC US [facility] Anc Imaging Routine Postcoital and contact bleeding Expected: 03/31/2024, Expires: 03/31/2025 [facility] Work Phone: Comment on above: Expected: 03/31/2024, Expires: 5 Start: 03-24-2024 End: 06-23-2024 DHEA-S BLD DHEA-S BLD Lab Routine PCOS (polycystic ovarian syndrome) Expected: 03/24/2024, Expires: 06/23/2024 [facility] Work Phone: Comment on above: Expected: 03/24/2024, Expires: 4 Start: 03-24-2024 End: 09-12-2024 ambulatory 03/24/2024 1:00 PM EDT Results Only [facility] Draw Station [address] [facility] [place] [address] [facility] Draw Station Start: 03-23-2024 ANNUAL PCP TEAM CHRONIC DISEASE VISIT ANNUAL PCP TEAM CHRONIC DISEASE VISIT [facility] Start: 03-17-2024 End: 03-17-2024 Patient encounter procedure 03/17/2024 8:00 AM EDT Office Visit Gastroenterology [place] [address] [place] [phone] Ofelia Merritt PA-C [address] [place] [address] Upper abdominal pain [R10.10]; Elevated LFTs [R79.89]; Elevated alkaline phosphatase level [R74.8]; Weight loss [R63.4] Gastroenterology [place] Comment on above: Upper abdominal pain [R10.10]; Elevated LFTs [R79.89]; Elevated alkaline phosphatase level [R74.8]; Weight loss [R63.4] Start: 03-13-2024 COVID-19 Vaccine ( season) COVID-19 Vaccine ( season) [facility] Start: 03-13-2024 Covid-19 Vaccine ( season) Covid-19 Vaccine ( season) [facility] Start: 03-13-2024 Covid-19 Vaccine ( season) Covid-19 Vaccine ( season) [facility] Start: 03-13-2024 Influenza vaccination Influenza Vaccine (#1) [facility] Start: 03-10-2024 End: 03-10-2024 Patient encounter procedure Nuclear Medicine Comment on above: Elevated alkaline phosphatase level [R74 .8] Start: 03-07-2024 End: 03-07-2024 Patient encounter procedure Molecular Imaging Comment on above: RUQ pain [R10.11]; Diarrhea, unspecified type [R19.7]; Weight loss, unintentional [R63.4] *CCK 1.26 mcg -RUQ p ain [R10.11]; Diarrhea, unspecified type [R19.7]; Weight loss, unintentional [R63.4] Start: 02-29-2024 End: 05-30-2024 ALK PHOMustapha ISOENZYM BL [facility] Comment on above: Expected: 02/29/2024, Expires: 4 Start: 02-29-2024 End: 05-30-2024 Comprehensive metabolic 2000 panel - Serum or Plasma [facility] Work Phone: Comment on above: Expected: 02/29/2024, Expires: 4 Start: 02-29-2024 End: 05-30-2024 Creatine kinase [Enzymatic activity/volume] in Serum or Plasma [facility] Comment on above: Expected: 02/29/2024, Expires: Start: 02-29-2024 End: 05-30-2024 Thyrotropin [Units/volume] in Serum or Plasma [facility] Comment on above: Expected: 02/29/2024, Expires: 4 Start: 02-29-2024 End: 05-30-2024 Thyroxine (T4) free [Mass/volume] in Serum or Plasma [facility] Comment on above: Expected: 02/29/2024, Expires: Start: 02-29-2024 End: 02-29-2024 Patient encounter procedure 02/29/2024 9:20 AM EDT Office Visit [facility] [place] [address] [place], [place] [id number] Wu Herrera MD [address] [place] [address] Positive PUMA and low DHEA-S [facility] Comment on above: Positive PUMA and low DHEA-S Start: 02-23-2024 End: 02-23-2024 Patient encounter procedure 02/23/2024 1:00 PM EDT Appointment Radiology [address], [place] [id number] Lump in chest [R22.2]; Breast skin changes [R23.4] Radiology Comment on above: Lump in chest [R22.2]; Breast skin moreau es [R23.4] Start: 02-18-2024 End: 02-18-2024 Patient encounter procedure 02/18/2024 1:00 PM EDT Office Visit Plastic Surgery [address] [place] [address] Cinda Mensah APRN.ASSISTANT PROFESSOR OF SPANISH [address] [place] [address] CONSULT FOR BREAST REDUCTION Plastic Surgery Comment on above: CONSULT FOR BREAST REDUCTION Start: 02-15-2024 End: 05-16-2024 17-Hydroxyprogesterone [Mass/volume] in Serum or Plasma [facility] Comment on above: Expected: 02/15/2024, Expires: Start: 02-15-2024 End: 05-16-2024 Cobalamin (Vitamin B12) [Mass/volume] in Serum or Plasma [facility] Comment on above: Expected: 02/15/2024, Expires: Start: 02-15-2024 End: 05-16-2024 DHEA-S BLD [facility] Comment on above: Expected: 02/15/2024, Expires: Start: 02-15-2024 End: 05-16-2024 Follitropin [Units/volume] in Serum or Plasma [facility] Comment on above: Expected: 02/15/2024, Expires: Start: 02-15-2024 End: 05-16-2024 Lipid 1996 panel - Serum or Plasma [facility] Comment on above: Expected: 02/15/2024, Expires: Start: 02-15-2024 End: 05-16-2024 Lutropin [Units/volume] in Serum or Plasma [facility] Comment on above: Expected: 02/15/2024, Expires: Start: 02-15-2024 End: 05-16-2024 Progesterone [Mass/volume] in Serum or Plasma [facility] Comment on above: Expected: 02/15/2024, Expires: Start: 02-15-2024 End: 05-16-2024 Prolactin [Mass/volume] in Serum or Plasma [facility] Comment on above: Expected: 02/15/2024, Expires: Start: 02-15-2024 End: 05-16-2024 Testosterone [Mass/volume] in Serum or Plasma [facility] Comment on above: Expected: 02/15/2024, Expires: Start: 02-15-2024 End: 05-16-2024 Thyrotropin [Units/volume] in Serum or Plasma [facility] Work Phone: Comment on above: Expected: 02/15/2024, Expires: Start: 01-27-2024 End: 01-27-2024 Patient encounter procedure 01/27/2024 2:30 PM EDT Appointment Radiology [address] [place] [address] Lump in chest [R22.2]; Breast skin changes [R23.4] Radiology Comment on above: Lump in chest [R22.2]; Breast skin moreau es [R23.4] Start: 01-22-2024 End: 01-22-2024 Patient encounter procedure 01/22/2024 9:45 AM EDT Appointment Radiology [address] [place] [address] RUQ pain [R10.11] Radiology Comment on above: RUQ pain [R10.11] Start: 01-19-2024 End: 01-19-2024 Patient encounter procedure 01/19/2024 1:00 PM EDT Office Visit OB/Gynecology [address] [place] [address] Pari Livingston APRN.ASSISTANT PROFESSOR OF SPANISH [address] [place] [address] Nexplanon Insertion and post follow up OB/Gynecology Comment on above: Nexplanon Insertion and post foll ow up Start: 01-18-2024 End: 04-18-2024 Amylase [Enzymatic activity/volume] in Serum or Plasma [facility] Work Phone: Comment on above: Expected: 01/18/2024, Expires: Start: 01-18-2024 End: 04-18-2024 PUMA BY IFA SCREEN [facility] Comment on above: Expected: 01/18/2024, Expires: Start: 01-18-2024 End: 04-18-2024 C reactive protein [Mass/volume] in Serum or Plasma [facility] Comment on above: Expected: 01/18/2024, Expires: Start: 01-18-2024 End: 04-18-2024 Comprehensive metabolic 2000 panel - Serum or Plasma [facility] Comment on above: Expected: 01/18/2024, Expires: Start: 01-18-2024 End: 04-18-2024 Erythrocyte sedimentation rate [facility] Comment on above: Expected: 01/18/2024, Expires: Start: 01-18-2024 End: 04-18-2024 Lipase [Enzymatic activity/volume] in Serum or Plasma [facility] Comment on above: Expected: 01/18/2024, Expires: Start: 01-18-2024 End: 04-18-2024 Rheumatoid factor [Units/volume] in Serum or Plasma [facility] Comment on above: Expected: 01/18/2024, Expires: Start: 12-15-2023 End: 12-15-2023 Patient encounter procedure 12/15/2023 9:40 AM EDT Office Visit OB/Gynecology [address] [place] [address] Shruthi Estrada MD [address] [place] [address] OB/Gynecology Comment on above: Start: 12-06-2023 ANNUAL PCP TEAM CHRONIC DISEASE VISIT ANNUAL PCP TEAM CHRONIC DISEASE VISIT [facility] Start: 11-27-2023 End: 11-27-2023 Patient encounter procedure 11/27/2023 11:30 AM EDT Routine Office Visit OB/Gynecology [address] [place] [address] Shruthi Estrada MD [address] [place] [address] OB 1 WK OB/Gynecology Comment on above: OB 1 WK Start: 11-20-2023 End: 11-20-2023 Patient encounter procedure 11/20/2023 10:40 AM EDT Routine Office Visit OB/Gynecology [address] [place] [address] Shruthi Estrada MD [address] [place] [address] OB OB/Gynecology Comment on above: OB Start: 11-19-2023 End: 11-19-2023 Patient encounter procedure 11/19/2023 1:00 PM EDT Routine Office Visit Maternal Medicine [address] [phone] Growth Maternal Medicine Comment on above: Growth Start: 11-12-2023 End: 11-12-2023 Patient encounter procedure 11/12/2023 8:30 AM EDT Routine Office Visit OB/Gynecology [address] [place] [address] Growth OB/Gynecology Comment on above: Growth Start: 10-19-2023 End: 01-18-2024 SYPHILIS TOTAL W/REFLEX [facility] Work Phone: Comment on above: Expected: 10/19/2023, Expires: 4 Start: 09-10-2023 End: 12-10-[address] [facility] Work Phone: Comment on above: Expected: 09/10/2023, Expires: 4 Start: 08-17-2023 End: 11-16-2023 CBC W Auto Differential panel - Blood CBC + DIFF Lab Routine 23 weeks gestation of Supervision of high risk , antepartum Expected: 08/17/2023, Expires: 11/16/2023 [facility] Work Phone: Comment on above: Expected: 08/17/2023, Expires: Start: 08-17-2023 End: 11-16-2023 Comprehensive metabolic 2000 panel - Serum or Plasma COMP METABOLIC PANEL Lab Routine 23 weeks gestation of Supervision of high risk , antepartum Expected: 08/17/2023, Expires: 11/16/2023 [facility] Work Phone: Comment on above: Expected: 08/17/2023, Expires: 4 Start: 08-17-2023 End: 11-16-2023 GEST GLUC SCREEN, 1-HR, 50 GM, NON-FASTING GEST GLUC SCREEN, 1-HR, 50 GM, NON-FASTING Lab Routine 23 weeks gestation of Supervision of high risk , antepartum Expected: 08/17/2023, Expires: 11/16/2023 [facility] Work Phone: Comment on above: Expected: 08/17/2023, Expires: 4 Start: 08-17-2023 End: 11-16-2023 Protein/Creatinine [Mass Ratio] in Urine [facility] Work Phone: Comment on above: Expected: 08/17/2023, Expires: 4 Start: 08-17-2023 End: 11-16-2023 SYPHILIS TOTAL W/REFLEX SYPHILIS TOTAL W/REFLEX Lab Routine 23 weeks gestation of Supervision of high risk , antepartum Expected: 08/17/2023, Expires: 11/16/2023 [facility] Work Phone: Comment on above: Expected: 08/17/2023, Expires: 4 Start: 08-17-2023 End: 11-16-2023 Urate [Mass/volume] in Serum or Plasma URIC ACID BLOOD Lab Routine 23 weeks gestation of Supervision of high risk , antepartum Expected: 08/17/2023, Expires: 11/16/2023 [facility] Work Phone: Comment on above: Expected: 08/17/2023, Expires: 4 Start: 06-12-2023 End: 09-11-2023 CARRIER SCREEN, STANDARD [facility] Work Phone: Comment on above: Expected: 06/12/2023, Expires: 4 Start: 06-12-2023 End: 09-11-2023 Chromosome 21 trisomy [Presence] in Blood or Tissue by Cytogenetics [facility] Work Phone: Comment on above: Expected: 06/12/2023, Expires: 4 Start: 06-12-2023 End: 06-12-2024 OBSTETRIC ULTRASOUND WHI OBSTETRIC ULTRASOUND [facility] Anc Imaging Routine Supervision of high risk , antepartum 13 weeks gestation of Supervision of high risk in second trimester Expected: 06/12/2023, Expires: 06/12/2024 [facility] Work Phone: Comment on above: Expected: 06/12/2023, Expires: Start: 05-19-2023 End: 08-18-2023 CBC panel - Blood by Automated count CBC Lab Routine care, antepartum Expected: 05/19/2023, Expires: 08/18/2023 [facility] Work Phone: Comment on above: Expected: 05/19/2023, Expires: 4 Start: 05-19-2023 End: 08-18-2023 Hepatitis B virus surface Ag [Presence] in Serum HEP B SURF AG SCRN Lab Routine care, antepartum Expected: 05/19/2023, Expires: 08/18/2023 [facility] Work Phone: Comment on above: Expected: 05/19/2023, Expires: 4 Start: 05-19-2023 End: 08-18-2023 Hepatitis C virus Ab [Presence] in Serum HEPATITIS C ANTIBODY IA WITH CONFIRMATION Lab Routine care, antepartum Expected: 05/19/2023, Expires: 08/18/2023 [facility] Work Phone: Comment on above: Expected: 05/19/2023, Expires: 4 Start: 05-19-2023 End: 08-18-2023 HIV 1+2 Ab [Presence] in Serum or Plasma by Immunoassay HIV 1 2 COMBO(AG/AB),WITH REFLEX TO DIFFERENTIATION Lab Routine care, antepartum Expected: 05/19/2023, Expires: 08/18/2023 [facility] Work Phone: Comment on above: Expected: 05/19/2023, Expires: Start: 05-19-2023 End: 05-19-2024 NUCHAL TRANSLUCENCY WHI NUCHAL TRANSLUCENCY [facility] Anc Imaging Routine care, antepartum Expected: 05/19/2023, Expires: 05/19/2024 [facility] Work Phone: Comment on above: Expected: 05/19/2023, Expires: Start: 05-19-2023 End: 08-18-2023 RUBELLA IGG AB RUBELLA IGG AB Lab Routine care, antepartum Expected: 05/19/2023, Expires: 08/18/2023 [facility] Work Phone: Comment on above: Expected: 05/19/2023, Expires: Start: 05-19-2023 End: 08-18-2023 SYPHILIS TOTAL W/REFLEX SYPHILIS TOTAL W/REFLEX Lab Routine care, antepartum Expected: 05/19/2023, Expires: 08/18/2023 [facility] Work Phone: Comment on above: Expected: 05/19/2023, Expires: 4 Start: 05-19-2023 End: 08-18-2023 TYPE + SCREEN TYPE + SCREEN Blood Bank Routine care, antepartum Expected: 05/19/2023, Expires: 08/18/2023 [facility] Work Phone: Comment on above: Expected: 05/19/2023, Expires: 4 Start: 05-01-2023 End: 07-31-[address] [facility] Work Phone: Comment on above: Expected: 05/01/2023 (Approximate), Expi res: 07/31/2023 Start: 03-23-2023 End: 05-23-2023 CBC W Auto Differential panel - Blood [facility] Work Phone: Comment on above: Expected: 03/23/2023, Expires: 3 Start: 03-23-2023 End: 05-23-2023 Cobalamin (Vitamin B12) [Mass/volume] in Serum or Plasma [facility] Work Phone: Comment on above: Expected: 03/23/2023, Expires: 3 Start: 03-23-2023 End: 05-23-2023 Comprehensive metabolic 2000 panel - Serum or Plasma [facility] Work Phone: Comment on above: Expected: 03/23/2023, Expires: 3 Start: 03-23-2023 End: 05-23-2023 Hemoglobin A1c in Blood [facility] Work Phone: Comment on above: Expected: 03/23/2023, Expires: 3 Start: 03-23-2023 End: 05-23-2023 LIPID PANEL, NONFASTING [facility] Work Phone: Comment on above: Expected: 03/23/2023, Expires: 3 Start: 03-23-2023 End: 05-23-2023 THYROID PEROXIDASE ANTIBODY BLOOD [facility] Work Phone: Comment on above: Expected: 03/23/2023, Expires: 3 Start: 03-23-2023 End: 05-23-2023 Thyrotropin [Units/volume] in Serum or Plasma [facility] Work Phone: Comment on above: Expected: 03/23/2023, Expires: 3 Start: 03-23-2023 End: 05-23-2023 Thyroxine (T4) free [Mass/volume] in Serum or Plasma [facility] Work Phone: Comment on above: Expected: 03/23/2023, Expires: 3 Start: 03-13-2023 Covid-19 Vaccine () Covid-19 Vaccine () [facility] Start: 03-13-2023 Influenza vaccination [facility] Start: 02-20-2023 ANNUAL PCP TEAM CHRONIC DISEASE VISIT ANNUAL PCP TEAM CHRONIC DISEASE VISIT [facility] Start: 2022 PAP TESTING PAP TESTING [facility] Start: 2022 Screening for malignant neoplasm of cervix HPV/Cotest [facility] Start: 11-11-2022 End: 01-11-2023 Chronic hepatitis differentiation between hepatitis B and C virus panel - Serum or Plasma [facility] Work Phone: Comment on above: Expected: 11/11/2022, Expires: 3 Start: 11-11-2022 End: 01-11-2023 Hepatic function 2000 panel - Serum or Plasma [facility] Work Phone: Comment on above: Expected: 11/11/2022, Expires: 3 Start: 05-27-2022 ANNUAL PCP TEAM CHRONIC DISEASE VISIT ANNUAL PCP TEAM CHRONIC DISEASE VISIT [facility] Start: 03-13-2022 Influenza vaccination INFLUENZA (#1) [facility] Start: 02-20-2022 End: 04-22-2022 CBC W Auto Differential panel - Blood CBC + DIFF Lab Routine PCOS (polycystic ovarian syndrome) Alcohol abuse Expected: 02/20/2022, Expires: 04/22/2022 [facility] Work Phone: Comment on above: Expected: 02/20/2022, Expires: 2 Start: 02-20-2022 End: 04-22-2022 Cobalamin (Vitamin B12) [Mass/volume] in Serum or Plasma VITAMIN B12 BLOOD Lab Routine Vitamin B12 deficiency Expected: 02/20/2022, Expires: 04/22/2022 [facility] Work Phone: Comment on above: Expected: 02/20/2022, Expires: 2 Start: 02-20-2022 End: 04-22-2022 Comprehensive metabolic 2000 panel - Serum or Plasma COMP METABOLIC PANEL Lab Routine PCOS (polycystic ovarian syndrome) Insulin resistance Expected: 02/20/2022, Expires: 04/22/2022 [facility] Work Phone: Comment on above: Expected: 02/20/2022, Expires: 2 Start: 02-20-2022 End: 04-22-2022 Hemoglobin A1c in Blood HGB A1C Lab Routine PCOS (polycystic ovarian syndrome) Insulin resistance Expected: 02/20/2022, Expires: 04/22/2022 [facility] Work Phone: Comment on above: Expected: 02/20/2022, Expires: 2 Start: 02-20-2022 End: 04-22-2022 LIPID PANEL, NONFASTING LIPID PANEL, NONFASTING Lab Routine Encounter for lipid screening for cardiovascular disease Expected: 02/20/2022, Expires: 04/22/2022 [facility] Work Phone: Comment on above: Expected: 02/20/2022, Expires: 2 Start: 01-03-2022 End: 03-05-2022 Iron and Iron binding capacity panel - Serum or Plasma [facility] Work Phone: Comment on above: Expected: 01/03/2022, Expires: 2 Start: 11-22-2021 End: 11-28-2021 Ketorolac Injectable 15 mg IntraVenous Push Every 6 Hours PRN ; (TORADOL)DOSE = 15 mg IntraVenous Push Every 6 Hours, PRN Pain - Mod (4-6) Start: 22-Nov-2021 End: 27-Nov-2021 Ordered: 22-Nov-2021 Joseph Hester Intent [facility] Start: 11-21-2021 End: 11-22-2022 [facility] Start: 06-02-2021 ASTHMA ACTION PLAN ASTHMA ACTION PLAN [facility] Start: 04-10-2021 COVID-19 VACCINE (3 - Booster for Moderna series) COVID-19 VACCINE (3 - Booster for Moderna series) [facility] Start: 03-13-2021 Influenza vaccination Flu vaccine (#1) [facility] Work Phone: Start: 01-03-2021 COVID-19 VACCINE (3 - Booster for Moderna series) COVID-19 VACCINE (3 - Booster for Moderna series) [facility] Start: 01-03-2021 COVID-19 VACCINE (3 - Moderna series) COVID-19 VACCINE (3 - Moderna series) [facility] Start: 06-02-2020 ASTHMA CONTROL TEST ASTHMA CONTROL TEST [facility] Start: 12-25-2019 Anxiety Screening Anxiety Screening [facility] Start: 12-25-2019 CHLAMYDIA SCREENING () CHLAMYDIA SCREENING () [facility] Start: 12-25-2019 GC (GONORRHEA) SCREENING () GC (GONORRHEA) SCREENING () [facility] Start: 12-25-2019 HEPATITIS C SCREENING HEPATITIS C SCREENING [facility] Start: 12-25-2019 Hepatitis C screening Hepatitis C Screening [facility] Start: 12-25-2019 HIV SCREENING HIV SCREENING [facility] Start: 2017 Meningococcal B Vaccine (1 of 2 - Standard) Meningococcal B Vaccine (1 of 2 - Standard) [facility] Start: 2017 Meningococcal B Vaccine: Consider Based On Risk (1 of 2 - Patient Seeks Protection) Meningococcal B Vaccine: Consider Based On Risk (1 of 2 - Patient Seeks Protection) [facility] Start: 2017 MENINGOCOCCAL B: Consider based on risk (1 of 2 - Patient Seeks Protection) MENINGOCOCCAL B: Consider based on risk (1 of 2 - Patient Seeks Protection) [facility] Start: 12-25-2015 PEDS TO ADULT TRANSITION ANNUAL ASSESSMENT PEDS TO ADULT TRANSITION ANNUAL ASSESSMENT [facility] Start: 2013 COVID-19 Vaccine (1) COVID-19 Vaccine (1) [facility] Work Phone: Start: 2013 PEDS TO ADULT TRANSITION INITIAL DISCUSSION PEDS TO ADULT TRANSITION INITIAL DISCUSSION [facility] Start: 12-25-2011 MENINGOCOCCAL B: Consider based on risk (1 of 2 - Risk Bexsero 2-dose series) MENINGOCOCCAL B: Consider based on risk (1 of 2 - Risk Bexsero 2-dose series) [facility] Start: 12-25-2007 PNEUMOCOCCAL (1 - PCV) PNEUMOCOCCAL (1 - PCV) [facility] Start: 2001 HIV screening HIV Screening [facility] Start: 2001 Lipid panel Lipid Panel [facility] Start: 2001 Yearly Adult Physical Yearly Adult Physical [facility] Bacteria identified in Urine by Culture URINE CULTURE Microbiology Routine care, antepartum 05/19/2023 10:[address] [facility] Work Phone: Bacteria identified in Urine by Culture URINE CULTURE Microbiology Routine 13 weeks gestation of UTI (urinary tract infection) in , antepartum Ordered: 06/12/2023 [facility] Work Phone: Comment on above: Ordered: 06/12/2023 Bacteria identified in Urine by Culture URINE CULTURE Microbiology Routine 23 weeks gestation of Dysuria Urinary frequency 08/17/2023 4:[address] [facility] Work Phone: BACTERIAL VAGINOSIS NAAT BACTERI AL VAGINOSIS NAAT Lab Routine Postcoital and contact bleeding 03/31/2024 4:26 PM EDT [facility] BACTERIAL VAGINOSIS NAAT BACTERI AL VAGINOSIS NAAT Lab Routine Abnormal uterine bleeding 06/15/2024 2:02 PM EST [facility] BACTERIAL VAGINOSIS NAAT BACTERI AL VAGINOSIS NAAT Lab Routine Vaginal irritation Vulvar lesion 10/14/2024 11:15 AM EDT [facility] BACTERIAL VAGINOSIS NAAT BACTERI AL VAGINOSIS NAAT Lab Routine Dyspareunia in female Vaginal discharge 01/23/2025 12:48 PM T [facility] End: 04-16-2024 BIOPHYSICAL PROFILE US [facility] BIOPHYSICAL PROFILE US [facility] Anc Imaging Routine 32 weeks gestation of Decreased movements in third trimester, single or unspecified fetus Once per week for 10 Occurrences starting 10/19/2023 until 04/16/2024 [facility] Work Phone: Comment on above: Once per week for 10 Occurrences startin g 10/19/2023 until 04/16/2024 Calprotectin [Mass/m ass] in Stool CALPROTECTIN,FECAL Lab Routine Diarrhea, unspecified type Ordered: 03/17/2024 [facility] Comment on above: Ordered: 03/17/2024 LUANA/TRICHOMONAS NAAT LUANA /TRICHOMONAS NAAT Lab Routine Postcoital and contact bleeding 03/31/2024 4:26 PM EDT [facility] LUANA/TRICHOMONAS NAAT LUANA /TRICHOMONAS NAAT Lab Routine Abnormal uterine bleeding 06/15/2024 2:02 PM [facility] Work Phone: LUANA/TRICHOMONAS NAAT LUANA /TRICHOMONAS NAAT Lab Routine Vaginal irritation Vulvar lesion 10/14/2024 11:15 AM EDT [facility] LUANA/TRICHOMONAS NAAT LUANA /TRICHOMONAS NAAT Lab Routine Vaginal discharge 01/23/2025 12:48 PM [facility] Chlamydia trachomatis+Neisseria gonorrhoeae DNA [Presence] in Unspecified specimen by YAYO with probe detection GONORRHEA/CHLAMYDIA NAAT Lab Routine care, antepartum 05/19/2023 10:54 AM [facility] Work Phone: Chlamydia trachomatis+Neisseria gonorrhoeae DNA [Presence] in Unspecified specimen by YAYO with probe detection GONORRHEA/CHLAMYDIA NAAT Lab Routine Postcoital and contact bleeding 03/31/2024 4:26 PM [facility] Chlamydia trachomatis+Neisseria gonorrhoeae DNA [Presence] in Unspecified specimen by YAYO with probe detection GONORRHEA/CHLAMYDIA NAAT Lab Routine Screen for STD (sexually transmitted disease) 06/15/2024 2:03 PM [facility] Clostridioides diffi cile toxin genes [Presence] in Stool by YAYO with probe detection C. DIFFICILE PCR Lab Routine Diarrhea, unspecified type Ordered: 01/18/2024 [facility] Comment on above: Ordered: 01/18/2024 Clostridioides diffi cile toxin genes [Presence] in Stool by YAYO with probe detection C. DIFFICILE PCR Lab Routine Diarrhea, unspecified type Ordered: 03/17/2024 [facility] Work Phone: Comment on above: Ordered: 03/17/2024 End: 01-15-2026 CT Abdomen and Pelvis W contrast IV CT ABD/PEL W IVCON Radiology Routine Right upper quadrant pain FUO (fever of unknown origin) Night sweats Weight loss Fatigue, unspecified type 1 Occurrences starting 12/16/2024 until 01/15/2026 [facility] Work Phone: Comment on above: 1 Occurrences starting 12/16/2024 until 01/15/2026 CT Abdomen and Pelvi s W contrast IV CT ABD/PEL W IVCON Radiology Routine Right upper quadrant pain FUO (fever of unknown origin) Night sweats Weight loss Fatigue, unspecified type 12/27/2024 3:[address] [facility] Work Phone: End: 04-06-2026 CT Abdomen and Pelvis W contrast IV CT ABD/PEL W IVCON Radiology STAT Infection in abdomen (HCC) 1 Occurrences starting 03/07/2025 until 04/06/2026 [facility] Work Phone: Comment on above: 1 Occurrences starting 03/07/2025 until 04/06/2026 End: 01-15-2026 CT Chest WO contrast CT CHEST WO IVCON Radiology Routine FUO (fever of unknown origin) Night sweats Weight loss Fatigue, unspecified type 1 Occurrences starting 12/16/2024 until 01/15/2026 [facility] Comment on above: 1 Occurrences starting 12/16/2024 until 01/15/2026 CT Chest WO contrast CT CHEST WO IVCON Radiology Routine FUO (fever of unknown origin) Night sweats Weight loss Fatigue, unspecified type 12/27/2024 3:46 PM EDT [facility] ENTERIC BACTERIAL PA KATHIE BY PCR ENTERIC BACTERIAL PANEL BY PCR Lab Routine Diarrhea, unspecified type Ordered: 01/18/2024 [facility] Comment on above: Ordered: 01/18/2024 FAT, FECAL QUAL FAT, FECAL QUAL Lab Routine Diarrhea, unspecified type Ordered: 01/18/2024 [facility] Comment on above: Ordered: 01/18/2024 FECAL LACTOFERRIN/LEUKOCYTES FECAL LACTOFERRIN/LEUKOCYTES Lab Routine Diarrhea, unspecified type Ordered: 01/18/2024 [facility] Comment on above: Ordered: 01/18/2024 Gastrointestinal pathogens panel - Stool by YAYO with probe detection EXPANDED STOOL GASTROINTESTINAL PANEL BY PCR Lab Routine Diarrhea, unspecified type Ordered: 03/17/2024 [facility] Comment on above: Ordered: 03/17/2024 Giardia lamblia+Cryptosporidium sp Ag [Presence] in Stool by Immunoassay CRYPTOSPORIDIUM AND GIARDIA ANTIGENS BY EIA Microbiology Routine Diarrhea, unspecified type Ordered: 01/18/2024 [facility] Comment on above: Ordered: 01/18/2024 Helicobacter pylori Ag [Presence] in Stool by Immunoassay HELICOBACTER PYLORI ANTIGEN BY EIA, STOOL Microbiology Routine Diarrhea, unspecified type Ordered: 03/17/2024 [facility] Comment on above: Ordered: 03/17/2024 Hemoglobin.gastroint estin al.lower [Presence] in Stool by Immunoassay FECAL OCCULT BLOOD TEST Lab Routine Chronic constipation Abdominal pain, LLQ Abdominal bloating Nausea and vomiting, unspecified vomiting type Heartburn Weight loss Change in bowel habits Ordered: 11/07/2022 [facility] Work Phone: Comment on above: Ordered: 11/07/2022 Hemoglobin.gastroint estin al.lower [Presence] in Stool by Immunoassay IMMUNOCHEMICAL FECAL OCCULT BLOOD TEST Lab Routine Hematochezia Ordered: 01/19/2024 [facility] Work Phone: Comment on above: Ordered: 01/19/2024 METANEPHRINES 24H UR METANEPHRIN ES 24H UR Lab Routine FUO (fever of unknown origin) Night sweats Weight loss Fatigue, unspecified type Ordered: 12/16/2024 [facility] Comment on above: Ordered: 12/16/2024 End: 07-30-2025 MR Brain WO contrast MRI BRAIN WO IVCON Radiology Routine Traumatic injury of head, initial encounter Concussion with loss of consciousness, initial encounter 1 Occurrences starting 06/29/2024 until 07/30/2025 [facility] Work Phone: Comment on above: 1 Occurrences starting 06/29/2024 until 07/30/2025 End: 04-14-2026 MR Pelvis WO contrast MRI PELVIS ORTHO GENERAL WO IVCON Radiology Routine Encounter for observation for other suspected diseases and conditions ruled out 1 Occurrences starting 03/15/2025 until 04/14/2026 [facility] Work Phone: Comment on above: 1 Occurrences starting 03/15/2025 until 04/14/2026 NEXPLANON INSERTION NEXPLANON IN SERTION Procedures Routine Encounter for initial prescription of implantable subdermal contraceptive Ordered: 12/22/2023 [facility] Work Phone: Comment on above: Ordered: 12/22/2023 NEXPLANON INSERTION NEXPLANON IN SERTION Procedures Routine Insertion of implantable subdermal contraceptive Ordered: 01/19/2024 [facility] Work Phone: Comment on above: Ordered: 01/19/2024 NEXPLANON REMOVAL NEXPLANON GANESH MERT Procedures Routine Nexplanon removal Ordered: 02/24/2023 [facility] Work Phone: Comment on above: Ordered: 02/24/2023 NEXPLANON REMOVAL NEXPLANON GANESH MERT Procedures Routine Nexplanon removal Ordered: 04/11/2024 [facility] Work Phone: Comment on above: Ordered: 04/11/2024 End: 03-30-2025 NM Biliary ducts and Gallbladder Views for patency of biliary structures and ejection fraction W sincalide and W radionuclide IV NM HEPATOBILIARY W EF AND/OR RX Radiology Routine RUQ pain Diarrhea, unspecified type Weight loss, unintentional 1 Occurrences starting 02/29/2024 until 03/30/2025 [facility] Comment on above: 1 Occurrences starting 02/29/2024 until 03/30/2025 End: 07-23-2025 NM Stomach Views for gastric emptying solid phase W radionuclide PO NM GASTRIC EMPTYING SOLID Radiology Routine RUQ pain Early satiety Nausea 1 Occurrences starting 06/23/2024 until 07/23/2025 [facility] Work Phone: Comment on above: 1 Occurrences starting 06/23/2024 until 07/23/2025 End: 02-13-2024 OBSTETRIC ULTRASOUND WHI OBSTETRIC ULTRASOUND [facility] Anc Imaging Routine 23 weeks gestation of Sinus tachycardia Once per month for 5 Occurrences starting 08/17/2023 until 02/13/2024 [facility] Work Phone: Comment on above: Once per month for 5 Occurrences startin g 08/17/2023 until 02/13/2024 End: 05-30-2024 OBSTETRIC ULTRASOUND WHI OBSTETRIC ULTRASOUND [facility]I Anc Imaging Routine 38 weeks gestation of High-risk in third trimester Once per month for 5 Occurrences starting 12/02/2023 until 05/30/2024 [facility] Work Phone: Comment on above: Once per month for 5 Occurrences startin g 12/02/2023 until 05/30/2024 Ova and parasites identified in Unspecified specimen by Light microscopy OVA + PARA MICROSCOPIC Microbiology Routine Worms in stool Ordered: 01/08/2024 [facility] Work Phone: Comment on above: Ordered: 01/08/2024 PANC ELASTASE, FECAL PANC ELASTA SE, FECAL Lab Routine Diarrhea, unspecified type Ordered: 03/17/2024 [facility] Comment on above: Ordered: 03/17/2024 PAP TEST PAP TEST Lab Rou joleen Encounter for screening for malignant neoplasm of cervix 05/19/2023 10:[address] [facility] Work Phone: PAP TEST PAP TEST Lab Rou joleen Postcoital and contact bleeding 03/31/2024 4:26 PM EDT [facility] PELVIC US WHI PELVIC US WHI An c Imaging Routine Abnormal uterine bleeding (AUB) Ordered: 01/03/2022 [facility] Work Phone: Comment on above: Ordered: 01/03/2022 End: 07-19-2025 Polysomnogram POLYSOMNOGRAM (PSG) Procedures Routine Chronic fatigue Hypermobility arthralgia Snores Hypersomnolence 1 Occurrences starting 07/19/2024 until 07/19/2025 [facility] Work Phone: Comment on above: 1 Occurrences starting 07/19/2024 until 07/19/[address] [facility] Work Phone: Comment on above: Release Upon Ordering for 1 Occurrences starting 04/14/2024, 1 completed URINE OB DIP B/O URINE OB DIP B/ O Lab Routine Patient request for diagnostic testing Supervision of high risk , antepartum 13 weeks gestation of Ordered: 06/12/2023 [facility] Work Phone: Comment on above: Ordered: 06/12/2023 URINE OB DIP B/O URINE OB DIP B/ O Lab Routine High-risk in third trimester 37 weeks gestation of Ordered: 11/27/2023 [facility] Work Phone: Comment on above: Ordered: 11/27/2023 End: 12-11-2023 US ABD RIGHT UPPER QUADRANT US ABD RIGHT UPPER QUADRANT Radiology Routine Abnormal liver function tests 1 Occurrences starting 11/11/2022 until 12/11/2023 [facility] Work Phone: Comment on above: 1 Occurrences starting 11/11/2022 until 12/11/2023 End: 02-16-2025 US Abdomen RUQ US ABD RIGHT UPPER QUADRANT Radiology Routine RUQ pain Nausea and vomiting, unspecified vomiting type Diarrhea, unspecified type 1 Occurrences starting 01/18/2024 until 02/16/2025 [facility] Comment on above: 1 Occurrences starting 01/18/2024 until 02/16/2025 End: 02-17-2025 US Breast - left limited US BREAST LTD LEFT Radiology Routine Lump in chest Breast skin changes 1 Occurrences starting 01/19/2024 until 02/17/2025 [facility] Comment on above: 1 Occurrences starting 01/19/2024 until 02/17/2025 End: 02-17-2025 US Breast - right limited US BREAST LTD RIGHT Radiology Routine Lump in chest Breast skin changes 1 Occurrences starting 01/19/2024 until 02/17/2025 [facility] Comment on above: 1 Occurrences starting 01/19/2024 until 02/17/2025 End: 07-10-2023 Us breast uni real time with image limited US BREAST LTD LT Radiology Routine Breast pain, left Cellulitis, unspecified cellulitis site 1 Occurrences starting 06/10/2022 until 07/10/2023 [facility] Work Phone: Comment on above: 1 Occurrences starting 06/10/2022 until 07/10/2023 End: 07-24-2023 Us breast uni real time with image limited US BREAST LTD RT Radiology Routine Cellulitis, unspecified cellulitis site 1 Occurrences starting 06/24/2022 until 07/24/2023 [facility] Work Phone: Comment on above: 1 Occurrences starting 06/24/2022 until 07/24/2023 End: 06-24-2022 Us breast uni real time with image limited US BREAST LTD LT Radiology Routine Breast pain, left Cellulitis, unspecified cellulitis site 1 Occurrences starting 06/24/2022 until 06/24/2022 [facility] Work Phone: Comment on above: 1 Occurrences starting 06/24/2022 until 06/24/2022 VMA 24 HR URINE VMA 24 HR URINE Lab Routine FUO (fever of unknown origin) Night sweats Weight loss Fatigue, unspecified type Ordered: 12/16/2024 [facility] Comment on above: Ordered: 12/16/2024 End: 07-16-2025 XR Hand - bilateral PA and Lateral and Oblique XR HAND GENERAL 3V PA/LAT/OBL BILATERAL Radiology Routine PUMA positive Fatigue, unspecified type Bone pain Muscle pain Hypermobility arthralgia Rash of face Autonomic dysfunction Sicca syndrome (HCC) 1 Occurrences starting 06/16/2024 until 07/16/2025 [facility] Comment on above: 1 Occurrences starting 06/16/2024 until 07/16/2025 XR Hand - bilateral PA and Lateral and Oblique XR HAND GENERAL 3V PA/LAT/OBL BILATERAL Radiology Routine PUMA positive Fatigue, unspecified type Bone pain Muscle pain Hypermobility arthralgia Rash of face Autonomic dysfunction Sicca syndrome (HCC) 06/16/2024 3:48 PM EST [facility] End: 03-30-2025 XR Tibia and Fibula - left AP and Lateral XR TIBIA FIBULA 2V AP/LAT LEFT Radiology Routine Pain in barney, unspecified laterality 1 Occurrences starting 02/29/2024 until 03/30/2025 [facility] Comment on above: 1 Occurrences starting 02/29/2024 until 03/30/2025 XR Tibia and Fibula - left AP and Lateral XR TIBIA FIBULA 2V AP/LAT LEFT Radiology Routine Pain in barney, unspecified laterality 02/29/2024 4:06 PM EDT [facility] End: 03-30-2025 XR Tibia and Fibula - right AP and Lateral XR TIBIA FIBULA 2V AP/LAT RIGHT Radiology Routine Pain in barney, unspecified laterality 1 Occurrences starting 02/29/2024 until 03/30/2025 [facility] Comment on above: 1 Occurrences starting 02/29/2024 until 03/30/2025 XR Tibia and Fibula - right AP and Lateral XR TIBIA FIBULA 2V AP/LAT RIGHT Radiology Routine Pain in barney, unspecified laterality 02/29/2024 4:06 PM EDT [facility] Immunizations Immunization Date Immunization Notes Care Provider Susan jeff 04-04-2024 Seasonal, trivalent, recombinant, injectable influenza vaccine, preservative free Dee Roca PA-C Work Phone: [facility] 04-04-2024 influenza virus vacc ine, unspecified formulation Frankie Rios [employer] Work Phone: [facility] 09-25-2023 tetanus toxoid, redu ashutosh diphtheria toxoid, and acellular pertussis vaccine, adsorbed Sara Plotisra [employer].CNM Work Phone: [facility] 05-10-2023 influenza, injectabl e, quadrivalent, preservative free Dee Roca PA-C Work Phone: [facility] 05-10-2023 influenza virus vacc ine, unspecified formulation Wu Herrera MD Work Phone: [facility] 03-23-2023 influenza, injectabl e, quadrivalent, contains preservative Dee Roca PA-C Work Phone: [facility] 12-05-2022 pneumococcal (PCV20) vaccine, 20 valent (PREVNAR 20) Wu Herrera MD Work Phone: [facility] 09-12-2020 tuberculin skin test ; purified protein derivative solution, intradermal Wu Herrera MD Work Phone: [facility] 08-27-2020 tuberculin skin test ; purified protein derivative solution, intradermal Wu Herrera MD Work Phone: [facility] 06-25-2020 influenza, injectabl e, quadrivalent, contains preservative Daisy Diego [employer] Work Phone: [facility] 04-13-2019 influenza, injectabl e, quadrivalent, preservative free Daisy Diego [employer] BU[employer]DER.[facility] Work Phone: [facility] Work Phone: 05-31-2018 meningococcal polysaccharide (groups A, C, Y and W-135) diphtheria toxoid conjugate vaccine (MCV4P) Daisy Diego [employer].[facility] Work Phone: [facility] 04-30-2018 Influenza, injectabl e, Madin Mahnaz Canine Kidney, preservative free, quadrivalent Daisy Diego [employer].[facility] Work Phone: [facility] Work Phone: 04-06-2017 human papilloma viru s vaccine, quadrivalent Daisy Diego [employer].[facility] Work Phone: [facility] 04-06-2017 influenza, injectabl e, quadrivalent, contains preservative Daisy Diego [employer].[facility] Work Phone: [facility] 04-06-2017 meningococcal polysaccharide (groups A, C, Y and W-135) diphtheria toxoid conjugate vaccine (MCV4P) Daisy Diego [employer].[facility] Work Phone: [facility] 04-06-2017 tetanus toxoid, redu ashutosh diphtheria toxoid, and acellular pertussis vaccine, adsorbed Daisy Diego [employer].[facility] Work Phone: [facility] 03-09-2017 Human Papillomavirus 9-valent vaccine Daisy Diego [employer] Work Phone: [facility] 02-11-2016 Human Papillomavirus 9-valent vaccine Diasy Diego [employer] Work Phone: [facility] Work Phone: 04-22-2011 influenza virus vacc ine, live, attenuated, for intranasal use Daisy Diego [employer] Work Phone: [facility] 05-03-2010 influenza virus vacc ine, live, attenuated, for intranasal use Daisy Diego [employer] Work Phone: [facility] 05-16-2009 novel influenza-H1N1 -09, all formulations Daisy Diego [employer] Work Phone: [facility] Work Phone: 04-07-2009 influenza virus vacc ine, live, attenuated, for intranasal use Daisyalmita Diego [employer] Work Phone: [facility] Work Phone: 12-25-2006 diphtheria, tetanus toxoids and acellular pertussis vaccine Daisy Jalen [employer] Work Phone: [facility] Work Phone: 12-25-2006 measles, mumps, rube lla, and varicella virus vaccine Daisy Diego [employer] Work Phone: [facility] Work Phone: 12-25-2006 poliovirus vaccine, inactivated Daisy Jalen [employer] Work Phone: [facility] Work Phone: 2005 pneumococcal conjuga te vaccine, 7 valent Daisy Diego [employer] Work Phone: [facility] Work Phone: 12-31-2004 pneumococcal conjuga te vaccine, 7 valent Daisy Diego [employer] Work Phone: [facility] Work Phone: 03-30-2003 diphtheria, tetanus toxoids and acellular pertussis vaccine Daisyalmita Diego [employer] Work Phone: [facility] Work Phone: 03-30-2003 haemophilus influenz ae type b vaccine, HbOC conjugate Daisy Jalen [employer] Work Phone: [facility] Work Phone: 03-29-2003 measles, mumps and rubella virus vaccine Daisy Diego [employer] Work Phone: [facility] Work Phone: 12-27-2002 measles, mumps and rubella virus vaccine Dee Roca PA-C Work Phone: [facility] 12-27-2002 varicella virus vaccine Mame ica Diego [employer] Work Phone: [facility] Work Phone: 09-26-2002 hepatitis B vaccine, pediatric or pediatric/adolescent dosage Daisy Diego [employer] Work Phone: [facility] Work Phone: 06-25-2002 diphtheria, tetanus toxoids and acellular pertussis vaccine Daisy Diego [employer] Work Phone: [facility] Work Phone: 06-25-2002 haemophilus influenz ae type b vaccine, HbOC conjugate Daisy Diego [employer] Work Phone: [facility] Work Phone: 06-25-2002 poliovirus vaccine, inactivated Daisy Diego [employer] Work Phone: [facility] Work Phone: 04-25-2002 diphtheria, tetanus toxoids and acellular pertussis vaccine Daisy Diego [employer] Work Phone: [facility] Work Phone: 04-25-2002 haemophilus influenz ae type b vaccine, HbOC conjugate Daisy Diego [employer] Work Phone: [facility] Work Phone: 04-25-2002 pneumococcal conjuga te vaccine, 7 valent Daisy Diego [employer] Work Phone: [facility] Work Phone: 04-25-2002 poliovirus vaccine, inactivated Daisy Diego [employer] Work Phone: [facility] Work Phone: 02-23-2002 diphtheria, tetanus toxoids and acellular pertussis vaccine Daisy Diego [employer] Work Phone: [facility] Work Phone: 02-23-2002 haemophilus influenz ae type b vaccine, HbOC conjugate Daisyalmita Diego [employer] Work Phone: [facility] Work Phone: 02-23-2002 pneumococcal conjuga te vaccine, 7 valent Daisyalmita Diego [employer] Work Phone: [facility] Work Phone: 02-23-2002 poliovirus vaccine, inactivated Daisy Diego [employer] Work Phone: [facility] Work Phone: 01-27-2002 hepatitis B vaccine, pediatric or pediatric/adolescent dosage Daisy Diego [employer] Work Phone: [facility] Work Phone: 2001 hepatitis B vaccine, pediatric or pediatric/adolescent dosage Daisy Diego [employer] Work Phone: [facility] Work Phone: Payers Date Payer Category Payer Self-pay 2023 Medicaid (Managed Care) [facility] BLIND AND DISABLED [id number] 2022 Private Health Insurance [id number] 2018 Medicaid [facility] MEDIC [facility] MED[facility] [id number] 2018-Present [phone] [address] [place] [address] Medicaid [id number] 2018 Medicaid [id number] 2001 Unknown [id number] 2.840.1.410080.3.579.2. 356 2001 Unknown [id number] 2.840.1.444459.3.579.2. 356 2001 Unknown [id number] 2.840.1.610297.3.579.2. 356 2001 Unknown [id number] 2.840.1.645008.3.579.2. 356 2001 Unknown [id number] 2.0.1.769048.3.579.2. 356 2001 Unknown [id number] 2.840.1.110731.3.579.2. 1243 Unknown [id number] Unknown [id number] Unknown [facility] Unknown [id number] Unknown [id number] Unknown [id number] Unknown [id number] 2.840.1.550459.3.579.2. 462 Unknown [id number] 2.840.1.169980.3.579.2. 462 Unknown [id number] 2.840.1.837691.3.579.2. 462 Unknown [id number] 2.840.1.098594.3.579.2. 462 Unknown [id number] 2.840.1.842965.3.579.2. 462 Unknown [id number] 2.840.1.516038.3.579.2. 462 Unknown [id number] 2.840.1.758387.3.579.2. 462 Unknown [id number] 2.840.1.498078.3.579.2. 462 Unknown [id number] 2.840.1.515999.3.579.2. 462 Unknown [id number] 2.840.1.816478.3.579.2. 462 Unknown [id number] 2.16.840.1.919815.3.579.2. 462 Unknown [id number] 2.16.840.1.720635.3.579.2. 462 Unknown [id number] 2.16.840.1.966256.3.579.2. 462 Unknown [id number] 2.16.840.1.534487.3.579.2. 462 Unknown [id number] 2.16.840.1.596779.3.579.2. 462 Unknown [id number] 2.16.840.1.737828.3.579.2. 462 Unknown [id number] 2.16.840.1.187712.3.579.2. 462 Unknown [id number] 2.16.840.1.940027.3.579.2. 462 Unknown [id number] 2.16.840.1.957844.3.579.2. 462 Unknown [id number] 2.16.840.1.779218.3.579.2. 462 Unknown [id number] 2.16.840.1.240408.3.579.2. 462 Unknown [id number] 2.16.840.1.940742.3.579.2. 462 Unknown [id number] 2.16.840.1.348867.3.579.2. 462 Unknown [id number] 2.16.840.1.233858.3.579.2. 462 Social History Date Type Detail Facility Start: 04-02-2021 End: 02-29-2024 Tobacco smoking status NHIS Current every day smoker [facility] Start: 04-02-2021 End: 10-11-2024 Cigarettes smoked current (pack per day) - Reported [facility] Start: 04-02-2021 End: 08-29-2024 Tobacco use and exposure Never used [employer] Phone: Start: 04-02-2021 End: 01-23-2025 Alcohol intake Current drinker of alcohol (finding) [facility] Work Phone: Start: 04-01-2021 Alcohol Comment 1/5 a day last drink 03/27 [facility] Work Phone: Start: 2001 Sex Assigned At Not on file [facility] Work Phone: Start: 12-14-2021 End: 05-25-2024 Exposure to SARS-CoV-2 (event) Not sure [facility]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 in the right lower quadrant. There is no guarding or rebound. Musculoskeletal: Cervical back: Normal range of motion and neck supple. No edema, erythema or rigidity. No pain with movement. Normal range of motion. Right hip: Tenderness present. Decreased range of motion. Lymphadenopathy: Cervical: No cervical adenopathy. Skin: General: Skin is warm. Findings: No rash. Neurological: General: No focal deficit present. Mental Status: She is alert and oriented to person, place, and time. Mental status is at baseline. {ASSESSMENT/PLAN: 1. Right lower quadrant abdominal pain - ICD9: 789.03, ICD10: R10.31 Patient had significant tenderness with manipulation of hip. Additionally patient has significant tenderness with palpation of right lower quadrant. With recent surgery and right lower quadrant pain referred to ED for CAT scan. Will be sent [facility] Wu Salcedo APRN.CNP History and Record Review Clinical information obtained from an independent historian. History obtained from or confirmed by: parent. External record(s) reviewed: prior outpatient record. Disposition The patient was discharged. OTC Medications were advised: Procedures documented in this encounter [facility] 02-28-2025 Instructions Jose Hackett APRN.LORI - 02/28/2025 11:57 AM EDT - Fill and take the antibiotic sent to the pharmacy exactly as directed, and finish the entire course even if you start feeling better. - For bladder pain relief, take phenazopyridine (Pyridium) as needed according to the instructions on the label. - Monitor your urinary symptoms over the next few days. If they do not improve or if they worsen at any time, please get checked in person or contact our clinic for further evaluation. documented in this encounter [facility] 02-28-2025 Note [facility] 02-28-2025 History of Present illness Narrative Telemedicine Visit - Distance Health Virtual Visit Note Patient seen on Nala Video Visit platform. Location of patient: [place] PCP listed in chart: Wu Herrera MD I have communicated my name and active licensure. The patient's identity and physical location were verified at the time of this visit. Either the patient or their legal licensing representative has been informed of the risks and benefits of -- and alternatives to -- treatment through a remote evaluation and consents to proceed with the evaluation remotely. Subjective The patient is a 24-year-old female presenting with dysuria, urinary frequency, and pelvic pain. Dysuria and Urinary Frequency: - Onset a few days ago. - Associated with pelvic pain described as "crampy bladder type pain." - Denies abdominal or back pain. - Symptoms typically occur a few days after sexual intercourse. - Denies new sexual partners or concerns for STDs. - Suspects inadequate hydration may have contributed. - No chance of . - No known medication allergies; avoids quinolones due to medical history. Gastrointestinal: (-) abdominal pain Genitourinary: (+) urinary frequency, (+) polyuria, (+) pelvic pain Musculoskeletal: (-) back pain Objective Last menstrual period 12/25/2024, not currently . General: No acute distress. Assessment & Plan 1. Dysuria (R30.0) 2. Acute cystitis without hematuria (N30.00) - Acute onset of urinary frequency, urgency, and pelvic pain consistent with UTI; symptoms began a few days after sexual activity, which aligns with prior UTI episodes. - Start antibiotic therapy. - Start Pyridium for symptomatic relief of bladder pain. - Advised to monitor symptoms closely; instructed to seek in-person evaluation if symptoms do not improve over the coming days or worsen at any time. Recording using PicksPal software for draft documentation of the visit was discussed with the patient/authorized licensing representative; all questions welcomed and answered. Patient/authorized licensing representative agreed to proceed IF YOUR SYMPTOMS PERSIST OVER THE NEXT 2-3 DAYS OR WORSENING AT ANY TIME DESPITE TREATMENT PLAN, PLEASE SEEK FURTHER IN PERSON EVALUATION - Red flags discussed for need for in person care - All questions answered Jose Hackett CNP [facility] Differential Diagnoses - acute cystitis is more likely for the following reason(s): suggested by H&P - complicated UTI is less likely for the following reason(s): no flank pain or systemic symptoms - vaginitis is less likely for the following reason(s): no discharge Disposition The patient was discharged. documented in this encounter [facility] 02-13-2025 Telephone encounter Note Record ID: [id number] Patient name: Dory Andrews Date: February 13, 2025 - 12:03 Administered by: PERLITA Protocol: -> Great! Now we are in a secure chat environment. Protecting your health information is important to us. Ok, let's get started. Please verify your name and date of . Please click on the button with your first name. -> Dory Got it. On to the next question... Select the button with your last name. -> Darryl Got it, thank you. Please enter your date of in MM/DD/YYYY format:(e.g., "07/31/1968" for Jul 31, 1968) -> 2000 Thank you for verifying your information. I'd like to ask you a few questions about how your recovery is going. Since leaving the hospital, do you have any new or worsening symptoms? -> Yes And how have these symptoms changed since you first noticed them? -> Same To play it safe, your symptoms should be reviewed by a clinician. If you think this is a medical emergency, go to the nearest emergency room or call 911. Otherwise you can expect a call from a [facility] registered nurse within the next business day. Thank you for your time and allowing us to care for you. We will check in on you over the next four weeks to ensure you continue to recover and support your needs. In the meantime, please reach out to your PCP for any questions or concerns.Thank you for choosing [facility]! -> Thank you for your time and allowing us to care for you. We will check in on you over the next four weeks to ensure you continue to recover and support your needs. In the meantime, please reach out to your PCP for any questions or concerns.Thank you for choosing [facility]! -> Great! Now we are in a secure chat environment. Protecting your health information is important to us. Ok, let's get started. Please verify your name and date of . Please click on the button with your first name. -> Dory Got it. On to the next question... Select the button with your last name. -> Darryl Got it, thank you. Please enter your date of in MM/DD/YYYY format:(e.g., "07/31/1968" for Jul 31, 1968) -> 2000 Thank you for verifying your information. I'd like to ask you a few questions about how your recovery is going. Have you experienced any new or worsening symptoms since returning home? -> No I'm glad to hear that. Have you had a hospital follow-up appointment yet since your discharge? -> No If you need to reschedule, please contact the 02/02 Appointment Center at [ ](tel:[phone]). Thank you for your time and allowing us to care for you. We will check in on you over the next four weeks to ensure you continue to recover and support your needs. In the meantime, please reach out to your PCP for any questions or concerns.Thank you for choosing [facility]! -> Thank you for your time and allowing us to care for you. We will check in on you over the next four weeks to ensure you continue to recover and support your needs. In the meantime, please reach out to your PCP for any questions or concerns.Thank you for choosing [facility]! -> Great! Now we are in a secure chat environment. Protecting your health information is important to us. Ok, let's get started. Please verify your name and date of . Please click on the button with your first name. -> Dory Got it. On to the next question... Select the button with your last name. -> Darryl Got it, thank you. Please enter your date of in MM/DD/YYYY format:(e.g., "07/31/1968" for Jul 31, 1968) -> 2000 Thank you for verifying your information. I'd like to ask you a few questions about how your recovery is going. Have there been any new or worsening symptoms since your last response? -> Yes And how have these symptoms changed since you first noticed them? -> Same To play it safe, your symptoms should be reviewed by a clinician. If you think this is a medical emergency, go to the nearest emergency room or call 911. Otherwise you can expect a call from a [facility] registered nurse within the next business day. Thank you for your time and for allowing us to care for you. Please be sure to reach out to your provider for any further symptoms or needs. Please rate your satisfaction with the care and support you have received from us since you have been home: (scale 1-5; 1 worst and 5 best) -> 4 Please tell me what you liked best about your experience: -> Thank you for your time and for allowing us to care for you. Please be sure to reach out to your provider for any further symptoms or needs. Please rate your satisfaction with the care and support you have received from us since you have been home: (scale 1-5; 1 worst and 5 best) -> Thank you for your time and for allowing us to care for you. Please be sure to reach out to your provider for any further symptoms or needs. Please rate your satisfaction with the care and support you have received from us since you have been home: (scale 1-5; 1 worst and 5 best) -> 4 Please tell me what you liked best about your experience: -> n/a Please tell me what you liked least about your experience: -> n/a [facility] 02-13-2025 Miscellaneous Notes Record ID: [id number] Patient name: Dory Andrews Date: February 13, 2025 - 12:03 Administered by: PERLITA Protocol: -> Great! Now we are in a secure chat environment. Protecting your health information is important to us. Ok, let's get started. Please verify your name and date of . Please click on the button with your first name. -> Dory Got it. On to the next question... Select the button with your last name. -> Darryl Got it, thank you. Please enter your date of in MM/DD/YYYY format:(e.g., "07/31/1968" for Jul 31, 1968) -> 2000 Thank you for verifying your information. I'd like to ask you a few questions about how your recovery is going. Since leaving the hospital, do you have any new or worsening symptoms? -> Yes And how have these symptoms changed since you first noticed them? -> Same To play it safe, your symptoms should be reviewed by a clinician. If you think this is a medical emergency, go to the nearest emergency room or call 911. Otherwise you can expect a call from a [facility] registered nurse within the next business day. Thank you for your time and allowing us to care for you. We will check in on you over the next four weeks to ensure you continue to recover and support your needs. In the meantime, please reach out to your PCP for any questions or concerns.Thank you for choosing [facility]! -> Thank you for your time and allowing us to care for you. We will check in on you over the next four weeks to ensure you continue to recover and support your needs. In the meantime, please reach out to your PCP for any questions or concerns.Thank you for choosing [facility]! -> Great! Now we are in a secure chat environment. Protecting your health information is important to us. Ok, let's get started. Please verify your name and date of . Please click on the button with your first name. -> Dory Got it. On to the next question... Select the button with your last name. -> Darryl Got it, thank you. Please enter your date of in MM/DD/YYYY format:(e.g., "07/31/1968" for Jul 31, 1968) -> 2000 Thank you for verifying your information. I'd like to ask you a few questions about how your recovery is going. Have you experienced any new or worsening symptoms since returning home? -> No I'm glad to hear that. Have you had a hospital follow-up appointment yet since your discharge? -> No If you need to reschedule, please contact the 02/02 Appointment Center at [ ](tel:[phone]). Thank you for your time and allowing us to care for you. We will check in on you over the next four weeks to ensure you continue to recover and support your needs. In the meantime, please reach out to your PCP for any questions or concerns.Thank you for choosing [facility]! -> Thank you for your time and allowing us to care for you. We will check in on you over the next four weeks to ensure you continue to recover and support your needs. In the meantime, please reach out to your PCP for any questions or concerns.Thank you for choosing [facility]! -> Great! Now we are in a secure chat environment. Protecting your health information is important to us. Ok, let's get started. Please verify your name and date of . Please click on the button with your first name. -> Dory Got it. On to the next question... Select the button with your last name. -> Darryl Got it, thank you. Please enter your date of in MM/DD/YYYY format:(e.g., "07/31/1968" for Jul 31, 1968) -> 2000 Thank you for verifying your information. I'd like to ask you a few questions about how your recovery is going. Have there been any new or worsening symptoms since your last response? -> Yes And how have these symptoms changed since you first noticed them? -> Same To play it safe, your symptoms should be reviewed by a clinician. If you think this is a medical emergency, go to the nearest emergency room or call 911. Otherwise you can expect a call from a [facility] registered nurse within the next business day. Thank you for your time and for allowing us to care for you. Please be sure to reach out to your provider for any further symptoms or needs. Please rate your satisfaction with the care and support you have received from us since you have been home: (scale 1-5; 1 worst and 5 best) -> 4 Please tell me what you liked best about your experience: -> Thank you for your time and for allowing us to care for you. Please be sure to reach out to your provider for any further symptoms or needs. Please rate your satisfaction with the care and support you have received from us since you have been home: (scale 1-5; 1 worst and 5 best) -> Thank you for your time and for allowing us to care for you. Please be sure to reach out to your provider for any further symptoms or needs. Please rate your satisfaction with the care and support you have received from us since you have been home: (scale 1-5; 1 worst and 5 best) -> 4 Please tell me what you liked best about your experience: -> n/a Please tell me what you liked least about your experience: -> n/a documented in this encounter [facility] 02-10-2025 History of Present illness Narrative IMPRESSION: Patient is s/p LAPAROSCOPIC CHOLECYSTECTOMY . PLAN: Post-op patient instructions were reviewed with the patient. I have explained to Ms. Andrews that she may return to normal activity with the following restrictions: no lifting over 40 lbs, no pulling, and no pushing. I have encouraged her to contact me at any time with any questions or concerns that may arise. Follow up: PRN SUBJECTIVE: On 01/25/2025 she underwent LAPAROSCOPIC CHOLECYSTECTOMY with Dr. Wu Hogan for biliary dyskinesia. Patient presents now for follow up. Patient complaints: Post operative soreness Patient denies: Nausea, Vomiting, Diarrhea, Constipation, Fever, Chills, Redness around wound, and Drainage from incision/s OBJECTIVE: General Appearance: alert, oriented and in no acute distress Abdomen: soft and non-tender Lap sites still had steri strips removed today - lap sites with s/s infection Venkata Wise APRN.ASSISTANT PROFESSOR OF SPANISH 02/07/2025 SURGICAL PATHOLOGY (01/25/2025 9:00 AM) documented in this encounter [facility] 02-10-2025 Note [facility] 02-06-2025 Telephone encounter Note Record ID: [id number] Patient name: Dory Andrews Date: February 06, 2025 - 12:07 Administered by: PERLITA Protocol: -> Great! Now we are in a secure chat environment. Protecting your health information is important to us. Ok, let's get started. Please verify your name and date of . Please click on the button with your first name. -> Dory Got it. On to the next question... Select the button with your last name. -> Darryl Got it, thank you. Please enter your date of in MM/DD/YYYY format:(e.g., "07/31/1968" for Jul 31, 1968) -> 2000 Thank you for verifying your information. I'd like to ask you a few questions about how your recovery is going. Since leaving the hospital, do you have any new or worsening symptoms? -> Yes And how have these symptoms changed since you first noticed them? -> Same To play it safe, your symptoms should be reviewed by a clinician. If you think this is a medical emergency, go to the nearest emergency room or call 911. Otherwise you can expect a call from a [facility] registered nurse within the next business day. Thank you for your time and allowing us to care for you. We will check in on you over the next four weeks to ensure you continue to recover and support your needs. In the meantime, please reach out to your PCP for any questions or concerns.Thank you for choosing [facility]! -> Thank you for your time and allowing us to care for you. We will check in on you over the next four weeks to ensure you continue to recover and support your needs. In the meantime, please reach out to your PCP for any questions or concerns.Thank you for choosing [facility]! -> Great! Now we are in a secure chat environment. Protecting your health information is important to us. Ok, let's get started. Please verify your name and date of . Please click on the button with your first name. -> Dory Got it. On to the next question... Select the button with your last name. -> Darryl Got it, thank you. Please enter your date of in MM/DD/YYYY format:(e.g., "07/31/1968" for Jul 31, 1968) -> 2000 Thank you for verifying your information. I'd like to ask you a few questions about how your recovery is going. Have you experienced any new or worsening symptoms since returning home? -> No I'm glad to hear that. Have you had a hospital follow-up appointment yet since your discharge? -> No [facility] 02-06-2025 Miscellaneous Notes Record ID: [id number] Patient name: Dory Andrews Date: February 06, 2025 - 12:07 Administered by: PERLITA Protocol: -> Great! Now we are in a secure chat environment. Protecting your health information is important to us. Ok, let's get started. Please verify your name and date of . Please click on the button with your first name. -> Dory Got it. On to the next question... Select the button with your last name. -> Darryl Got it, thank you. Please enter your date of in MM/DD/YYYY format:(e.g., "07/31/1968" for Jul 31, 1968) -> 2000 Thank you for verifying your information. I'd like to ask you a few questions about how your recovery is going. Since leaving the hospital, do you have any new or worsening symptoms? -> Yes And how have these symptoms changed since you first noticed them? -> Same To play it safe, your symptoms should be reviewed by a clinician. If you think this is a medical emergency, go to the nearest emergency room or call 911. Otherwise you can expect a call from a [facility] registered nurse within the next business day. Thank you for your time and allowing us to care for you. We will check in on you over the next four weeks to ensure you continue to recover and support your needs. In the meantime, please reach out to your PCP for any questions or concerns.Thank you for choosing [facility]! -> Thank you for your time and allowing us to care for you. We will check in on you over the next four weeks to ensure you continue to recover and support your needs. In the meantime, please reach out to your PCP for any questions or concerns.Thank you for choosing [facility]! -> Great! Now we are in a secure chat environment. Protecting your health information is important to us. Ok, let's get started. Please verify your name and date of . Please click on the button with your first name. -> Dory Got it. On to the next question... Select the button with your last name. -> Andrews Got it, thank you. Please enter your date of in MM/DD/YYYY format:(e.g., "07/31/1968" for Jul 31, 1968) -> 2000 Thank you for verifying your information. I'd like to ask you a few questions about how your recovery is going. Have you experienced any new or worsening symptoms since returning home? -> No I'm glad to hear that. Have you had a hospital follow-up appointment yet since your discharge? -> No documented in this encounter [facility] 01-30-2025 Telephone encounter Note Record ID: [id number] Patient name: Dory Andrews Date: January 30, 2025 - 12:08 Administered by: PERLITA Protocol: -> Great! Now we are in a secure chat environment. Protecting your health information is important to us. Ok, let's get started. Please verify your name and date of . Please click on the button with your first name. -> Dory Got it. On to the next question... Select the button with your last name. -> Darryl Got it, thank you. Please enter your date of in MM/DD/YYYY format:(e.g., "07/31/1968" for Jul 31, 1968) -> 2000 Thank you for verifying your information. I'd like to ask you a few questions about how your recovery is going. Since leaving the hospital, do you have any new or worsening symptoms? -> Yes And how have these symptoms changed since you first noticed them? -> Same [facility] 01-30-2025 Miscellaneous Notes Record ID: [id number] Patient name: Dory Andrews Date: January 30, 2025 - 12:08 Administered by: PERLITA Protocol: -> Great! Now we are in a secure chat environment. Protecting your health information is important to us. Ok, let's get started. Please verify your name and date of . Please click on the button with your first name. -> Dory Got it. On to the next question... Select the button with your last name. -> Darryl Got it, thank you. Please enter your date of in MM/DD/YYYY format:(e.g., "07/31/1968" for Jul 31, 1968) -> 2000 Thank you for verifying your information. I'd like to ask you a few questions about how your recovery is going. Since leaving the hospital, do you have any new or worsening symptoms? -> Yes And how have these symptoms changed since you first noticed them? -> Same documented in this encounter [facility] 01-30-2025 Note HNO ID: [id number] Author: ALBANIA HOLM LPN Service: ? Author Type: LICENSED NURSE Type: Progress Notes Filed: 01/30/2025 08:22 Note Text: Scan on 01/28/2025 3:39 PM by Marita Berry PA-C: Consultation - Emergency Medicine [facility] 01-30-2025 History of Present illness Narrative Scan on 01/28/2025 3:39 PM by Marita Berry PA-C: Consultation - Emergency Medicine documented in this encounter [facility] 01-28-2025 Telephone encounter Note Patient calling regarding post-op pain. Conferenced to Rashaun Greco on- call provider for Dr. Wu Hogan (General Surgery). GO TO THE EMERGENCY ROOM OR CALL 911 IF: * You develop any new symptoms * Your condition worsens * You are concerned or anxious about your condition for any other reason. [facility] 01-28-2025 Miscellaneous Notes Patient calling regarding post-op pain. Conferenced to Rashaun Greco on- call provider for Dr. Wu Hogan (General Surgery). GO TO THE EMERGENCY ROOM OR CALL 911 IF: * You develop any new symptoms * Your condition worsens * You are concerned or anxious about your condition for any other reason. documented in this encounter [facility] 01-27-2025 Note HNO ID: [id number] Author: MARIAMA MÁRQUEZ RN Service: Care Management Author Type: Registered Nurse Type: Care Mgt Initial Assessment Filed: 01/27/2025 15:16 Note Text: CARE MANAGEMENT: ASSESSMENT AND DISCHARGE PLAN SERVICE DATE: January 27, 2025 SERVICE TIME: 3:15 PM PCP: Wu Herrera MD Primary Contact: Extended Emergency Contact Information Primary Emergency Contact: Jeannette Perez [place] Mobile Relation: Grandparent Admission Status: Inpatient Insurance Provider: [employer] Discharge Planning requested by: Per Department Practice Potential Transition Plans Home Advance Directives Current Advance Directive: None Current Living Arrangements and Support Lives with: Family members Type of Residence: Private Residence (House) Does the patient have to climb stairs at home?: Yes Support: Family members How do you manage to accomplish the following: Independent: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 (statuses as of 04/29/2023) [facility] Narrative* Problem Noted Date Diagnosed Date Resolved Date Encounter for gynecological examination 06/25/2020 09/18/2022 Overview: Seeing AGRICULTURIST at [facility] Presence of (intrauterine) c ontraceptive device 05/30/2017 09/18/2022 Menorrhagia with irregular cycle 11/28/2015 09/18/2022 documented as of this encounter (statuses as of 05/01/2023) [facility] Narrative* Problem Noted Date Diagnosed Date Resolved Date Encounter for gynecological examination 06/25/2020 09/18/2022 Overview: Seeing AGRICULTURIST at [facility] Presence of (intrauterine) c ontraceptive device 05/30/2017 09/18/2022 Menorrhagia with irregular cycle 11/28/2015 09/18/2022 documented as of this encounter (statuses as of 05/12/2023) [facility] Narrative* Problem Noted Date Diagnosed Date Resolved Date Encounter for gynecological examination 06/25/2020 09/18/2022 Overview: Seeing AGRICULTURIST at [facility] Presence of (intrauterine) c ontraceptive device 05/30/2017 09/18/2022 Menorrhagia with irregular cycle 11/28/2015 09/18/2022 documented as of this encounter (statuses as of 05/17/2023) [facility] Narrative* Problem Noted Date Diagnosed Date Resolved Date Encounter for gynecological examination 06/25/2020 09/18/2022 Overview: Seeing AGRICULTURIST at [facility] Presence of (intrauterine) c ontraceptive device 05/30/2017 09/18/2022 Menorrhagia with irregular cycle 11/28/2015 09/18/2022 documented as of this encounter (statuses as of 05/17/2023) [facility] Narrative* Problem Noted Date Diagnosed Date Resolved Date Encounter for gynecological examination 06/25/2020 09/18/2022 Overview: Seeing AGRICULTURIST at [facility] Presence of (intrauterine) c ontraceptive device 05/30/2017 09/18/2022 Menorrhagia with irregular cycle 11/28/2015 09/18/2022 documented as of this encounter (statuses as of 05/20/2023) [facility] Narrative* Problem Noted Date Diagnosed Date Resolved Date Encounter for gynecological examination 06/25/2020 09/18/2022 Overview: Seeing AGRICULTURIST at [facility] Presence of (intrauterine) c ontraceptive device 05/30/2017 09/18/2022 Menorrhagia with irregular cycle 11/28/2015 09/18/2022 documented as of this encounter (statuses as of 06/01/2023) [facility] Narrative* Problem Noted Date Diagnosed Date Resolved Date Encounter for gynecological examination 06/25/2020 09/18/2022 Overview: Seeing AGRICULTURIST at [facility] Presence of (intrauterine) c ontraceptive device 05/30/2017 09/18/2022 Menorrhagia with irregular cycle 11/28/2015 09/18/2022 documented as of this encounter (statuses as of 06/03/2023) [facility] Narrative* Problem Noted Date Diagnosed Date Resolved Date Encounter for gynecological examination 06/25/2020 09/18/2022 Overview: Seeing AGRICULTURIST at [facility] Presence of (intrauterine) c ontraceptive device 05/30/2017 09/18/2022 Menorrhagia with irregular cycle 11/28/2015 09/18/2022 documented as of this encounter (statuses as of 06/12/2023) [facility] Narrative* Problem Noted Date Diagnosed Date Resolved Date Encounter for gynecological examination 06/25/2020 09/18/2022 Overview: Seeing AGRICULTURIST at [facility] Presence of (intrauterine) c ontraceptive device 05/30/2017 09/18/2022 Menorrhagia with irregular cycle 11/28/2015 09/18/2022 documented as of this encounter (statuses as of 06/12/2023) [facility] Narrative* Problem Noted Date Diagnosed Date Resolved Date Encounter for gynecological examination 06/25/2020 09/18/2022 Overview: Seeing AGRICULTURIST at [facility] Presence of (intrauterine) c ontraceptive device 05/30/2017 09/18/2022 Menorrhagia with irregular cycle 11/28/2015 09/18/2022 documented as of this encounter (statuses as of 06/13/2023) [facility] Narrative* Problem Noted Date Diagnosed Date Resolved Date Encounter for gynecological examination 06/25/2020 09/18/2022 Overview: Seeing AGRICULTURIST at [facility] Presence of (intrauterine) c ontraceptive device 05/30/2017 09/18/2022 Menorrhagia with irregular cycle 11/28/2015 09/18/2022 documented as of this encounter (statuses as of 06/18/2023) [facility] Narrative* Problem Noted Date Diagnosed Date Resolved Date Encounter for gynecological examination 06/25/2020 09/18/2022 Overview: Seeing AGRICULTURIST at [facility] Presence of (intrauterine) c ontraceptive device 05/30/2017 09/18/2022 Menorrhagia with irregular cycle 11/28/2015 09/18/2022 documented as of this encounter (statuses as of 06/22/2023) [facility] Narrative* Problem Noted Date Diagnosed Date Resolved Date Encounter for gynecological examination 06/25/2020 09/18/2022 Overview: Seeing AGRICULTURIST at [facility] Presence of (intrauterine) c ontraceptive device 05/30/2017 09/18/2022 Menorrhagia with irregular cycle 11/28/2015 09/18/2022 documented as of this encounter (statuses as of 08/15/2023) [facility] Narrative* Problem Noted Date Diagnosed Date Resolved Date Encounter for gynecological examination 06/25/2020 09/18/2022 Overview: Seeing AGRICULTURIST at [facility] Presence of (intrauterine) c ontraceptive device 05/30/2017 09/18/2022 Menorrhagia with irregular cycle 11/28/2015 09/18/2022 documented as of this encounter (statuses as of 08/17/2023) [facility] Narrative* Problem Noted Date Diagnosed Date Resolved Date Encounter for gynecological examination 06/25/2020 09/18/2022 Overview: Seeing AGRICULTURIST at [facility] Presence of (intrauterine) c ontraceptive device 05/30/2017 09/18/2022 Menorrhagia with irregular cycle 11/28/2015 09/18/2022 documented as of this encounter (statuses as of 08/18/2023) [facility] Narrative* Problem Noted Date Diagnosed Date Resolved Date Encounter for gynecological examination 06/25/2020 09/18/2022 Overview: Seeing AGRICULTURIST at [facility] Presence of (intrauterine) c ontraceptive device 05/30/2017 09/18/2022 Menorrhagia with irregular cycle 11/28/2015 09/18/2022 documented as of this encounter (statuses as of 08/18/2023) [facility] Narrative* Problem Noted Date Diagnosed Date Resolved Date Encounter for gynecological examination 06/25/2020 09/18/2022 Overview: Seeing AGRICULTURIST at [facility] Presence of (intrauterine) c ontraceptive device 05/30/2017 09/18/2022 Menorrhagia with irregular cycle 11/28/2015 09/18/2022 documented as of this encounter (statuses as of 08/19/2023) [facility] Narrative* Problem Noted Date Diagnosed Date Resolved Date Encounter for gynecological examination 06/25/2020 09/18/2022 Overview: Seeing AGRICULTURIST at [facility] Presence of (intrauterine) c ontraceptive device 05/30/2017 09/18/2022 Menorrhagia with irregular cycle 11/28/2015 09/18/2022 documented as of this encounter (statuses as of 08/27/2023) [facility] No data available for this section [facility] [facility] Diagnosis Alcohol withdrawal syndrome with complication (HCC)- Primary Anxiety state Anxiety state, unspecified Alcohol withdrawal, uncomplicated (HCC) documented in this encounter [facility] Work Phone: Evaluation note* Skin: Warm and dryEyes: Extraocular muscles intactENMT: Moist mucous membranesHead/Neck: Normocephalic, atraumaticRespiratory/Thorax: Bilateral equal breath sounds and clearMusculoskeletal: Resting comfortably in bedGastrointestinal: Soft, nontender, nondistendedExtremities: No peripheral edemaNeurological: Awake, alert, orientedPsychological: CooperativeCardiovascular: Regular rate and rhythmConstitutional: Awake, alert, oriented, no [facility] Fingernail problem- Primary Unspecified disease of nail Pain of finger of right hand Pain in limb documented in this encounter [facility] note* Diagnosis Abnormal uterine bleeding (AUB)- Primary documented in this encounter [facility] note* Diagnosis Abnormal uterine bleeding (AUB)- Primary documented in this encounter [facility] note* Diagnosis Severe episode of recurrent major depressive disorder, 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 Alcohol abuse Alcohol abuse, unspecified Anorexia nervosa, binge eating/purging type Anorexia nervosa Vitamin B12 deficiency Other B-complex deficiencies PCOS (polycystic ovarian syndrome) Polycystic ovaries Insulin resistance Dysmetabolic Syndrome X Encounter for lipid screening for cardiovascular disease Screening for lipoid disorders Nausea Nausea alone [facility]* Diagnosis Syncope, unspecified syncope type- Primary Hypotension, unspecified hypotension type [facility]* Diagnosis Cellulitis of skin- Primary Cellulitis and abscess of unspecified site documented in this encounter [facility] note* Diagnosis Breast pain, left- Primary Mastodynia Cellulitis, unspecified cellulitis site documented in this encounter [facility] note* Diagnosis Cellulitis, unspecified cellulitis site- Primary documented in this encounter [facility] note* Diagnosis Breast pain, left Mastodynia Cellulitis, unspecified cellulitis site documented in this encounter [facility] note* Diagnosis Treatment not available- Primary Procedure not carried out for other reasons documented in this encounter [facility] note* Diagnosis Encounter for gynecological examination (general) (routine) without abnormal findings- Primary Encounter for surveillance of implantable subdermal contraceptive documented in this encounter [facility] note* Diagnosis Chronic constipation- Primary Unspecified constipation [facility]* Diagnosis Abnormal liver function tests- Primary Other abnormal blood chemistry documented in this encounter [facility] note* Diagnosis Abdominal pain, LLQ- Primary Abdominal pain, left lower quadrant Chronic constipation Unspecified constipation Abdominal bloating Flatulence, eructation, and gas pain Nausea and vomiting, unspecified vomiting type Heartburn Weight loss Loss of weight Change in bowel habits Other symptoms involving digestive system documented in this encounter [facility] note* Diagnosis Acute midline low back pain without sciatica- Primary documented in this encounter [facility] note* Diagnosis Acute midline low back pain without sciatica- Primary [facility]* Diagnosis Nausea and vomiting, unspecified vomiting type Heartburn [facility]* Diagnosis Encounter for Nexplanon removal- Primary Surveillance of previously prescribed implantable subdermal contraceptive documented in this encounter [facility] note* Diagnosis Bacterial sinusitis- Primary Unspecified sinusitis (chronic) Weight gain Abnormal weight gain [facility]* Diagnosis Weight gain- Primary Abnormal weight gain Fatigue, unspecified type Screening for diabetes mellitus Screening cholesterol level Screening for lipoid disorders Encounter for lipid screening for cardiovascular disease Screening for lipoid disorders Encounter for immunization Need for other specified prophylactic vaccination against single bacterial disease [facility]* Diagnosis Skin infection- Primary Unspecified local infection of skin and subcutaneous tissue [facility]* Diagnosis Missed period- Primary Irregular menstrual cycle [facility]* Diagnosis Screening for tuberculosis- Primary Screening examination for pulmonary tuberculosis PVC's (premature ventricular contractions) Other premature beats documented in this encounter [facility] note* Diagnosis Abnormal liver function tests Other abnormal blood chemistry [facility] Chronic constipation Unspecified constipation Abdominal pain, LLQ Abdominal pain, left lower quadrant Abdominal bloating Flatulence, eructation, and gas pain Nausea and vomiting, unspecified vomiting type Heartburn Weight loss Loss of weight Change in bowel habits Other symptoms involving digestive system [facility] Diagnosis Encounter for screening for malignant neoplasm of cervix- Primary Screening for malignant neoplasm of the cervix care, antepartum Sinus tachycardia Other specified cardiac dysrhythmias Patient request for diagnostic testing Other specified examination [facility] Patient request for diagnostic testing- Primary Other specified examination Supervision of high risk , antepartum 13 weeks gestation of state, incidental Supervision of high risk in second trimester Unspecified high-risk Bipolar 1 disorder (HCC) Bipolar I disorder, most recent episode (or current) unspecified UTI (urinary tract infection) in , antepartum Infections of genitourinary tract antepartum [facility] Diagnosis Encounter for (NT) nuchal translucency scan- Primary Other specified screening 13 weeks gestation of state, incidental [facility] Diagnosis Abdominal discomfort- Primary Abdominal pain, unspecified site [facility] Diagnosis 23 weeks gestation of - Primary state, incidental Supervision of high risk , antepartum Dysuria Urinary frequency Sinus tachycardia Other specified cardiac dysrhythmias Round ligament pain Unspecified symptom associated with female genital organs [facility]* Diagnosis 24 weeks gestation of - Primary state, incidental Supervision of high risk , antepartum [facility] Diagnosis Supervision of high risk , antepartum- Primary 26 weeks gestation of state, incidental Spotting in Spotting complicating , unspecified as to episode of care or not applicable Itch of skin Unspecified pruritic disorder [facility] Diagnosis Oropharyngeal dysphagia- Primary Dysphagia, oropharyngeal phase [facility] Diagnosis 28 weeks gestation of - Primary state, incidental Supervision of high risk , antepartum Need for vaccination Need for prophylactic vaccination and inoculation against unspecified single disease [facility]* Diagnosis Oropharyngeal dysphagia- Primary Dysphagia, oropharyngeal phase [facility]* Diagnosis URI, acute- Primary Acute upper respiratory infections of unspecified site [facility]* Diagnosis Uterine size date discrepancy, third trimester- Primary Suspected problem with growth not found 32 weeks gestation of state, incidental Decreased movements in third trimester, single or unspecified fetus [facility]* Diagnosis Encounter for supervision of high risk in third trimester, antepartum- Primary 32 weeks gestation of state, incidental Decreased movements in third trimester, single or unspecified fetus Uterine size-date discrepancy, third trimester [facility]* Diagnosis 34 weeks gestation of - Primary state, incidental Encounter for supervision of high risk in third trimester, antepartum [facility]* Diagnosis PVC's (premature ventricular contractions) Other premature beats [facility]* Diagnosis 35 weeks gestation of - [...] discrepancy, third trimester [facility]* Diagnosis Encounter for ultrasound to check growth- Primary Encounter for routine screening for malformation using ultrasonics Fundal height low for dates in third trimester Uterine size-date discrepancy, third trimester 35 weeks gestation of state, incidental [facility]* Diagnosis High-risk in third trimester- Primary Abnormal glucose complicating Abnormal maternal glucose tolerance, complicating , childbirth, or the puerperium, unspecified as to episode of care History of depression Personal history of other mental disorder 36 weeks gestation of state, incidental [facility]* Diagnosis High-risk in third trimester- Primary 37 weeks gestation of state, incidental Decreased movements in second trimester, single or unspecified fetus [facility]* Diagnosis 38 weeks gestation of - Primary state, incidental High-risk in third trimester Supervision of high risk , antepartum Bipolar 1 disorder (HCC) Bipolar I disorder, most recent episode (or current) unspecified Severe episode of recurrent major depressive disorder, without psychotic features (HCC) Group beta Strep positive [facility] Diagnosis Elevated BP without diagnosis of hypertension- Primary Chest pain due to myocardial ischemia, unspecified ischemic chest pain type Visual changes Unspecified visual disturbance [facility]* Diagnosis 2 weeks follow-up- Primary Rapid weight loss Loss of weight Encounter for initial prescription of implantable subdermal contraceptive [facility]* Diagnosis Worms in stool- Primary Helminth infection, unspecified Folliculitis Other specified disease of hair and hair follicles [facility]* Diagnosis RUQ pain- Primary Abdominal pain, right upper quadrant Nausea and vomiting, unspecified vomiting type Dehydration, mild Dehydration Bruising Contusion of unspecified site Diarrhea, unspecified type Arthralgia, unspecified joint [facility]* Diagnosis Hematochezia- Primary Blood in stool [facility]* Diagnosis Insertion of implantable subdermal contraceptive- Primary Lump in chest Swelling, mass, or lump in chest Breast skin changes Changes in skin texture [facility]* Diagnosis UPMA positive- Primary Other and unspecified nonspecific immunological findings [facility]* Diagnosis PCOS (polycystic ovarian syndrome)- Primary Polycystic ovaries Irregular periods/menstrual cycles Irregular menstrual cycle Chronic bilateral back pain, unspecified back location , absence Failure of , unspecified as to episode of care [facility]* Diagnosis PCOS (polycystic ovarian syndrome)- Primary Polycystic ovaries [facility]* Diagnosis PUMA positive- Primary Other and unspecified nonspecific immunological findings Fatigue, unspecified type Bone pain Disorder of bone and cartilage, unspecified Muscle pain Mylagia and myositis, unspecified RUQ pain Abdominal pain, right upper quadrant Diarrhea, unspecified type Weight loss, unintentional Loss of weight Elevated alkaline phosphatase level Other nonspecific abnormal serum enzyme levels Pain in barney, unspecified laterality [facility]* Diagnosis RUQ pain Abdominal pain, right upper quadrant Diarrhea, unspecified type Weight loss, unintentional Loss of weight [facility]* Diagnosis Elevated alkaline phosphatase level Other nonspecific abnormal serum enzyme levels documented in this encounter [facility] note* Diagnosis Upper abdominal pain- Primary Abdominal pain, other specified site Elevated LFTs Other abnormal blood chemistry Elevated alkaline phosphatase level Other nonspecific abnormal serum enzyme levels Weight loss Loss of weight Elevated alkaline phosphatase level Other nonspecific abnormal serum enzyme levels documented in this encounter [facility] note* Diagnosis Abdominal pain, unspecified abdominal location- Primary Elevated alkaline phosphatase level Other nonspecific abnormal serum enzyme levels Elevated LFTs Other abnormal blood chemistry Nausea Nausea alone Weight loss, unintentional Loss of weight [facility]* Diagnosis RUQ pain- Primary Abdominal pain, right upper quadrant Diarrhea, unspecified type Elevated alkaline phosphatase level Other nonspecific abnormal serum enzyme levels documented in this encounter [facility] note* Diagnosis Pain in barney, unspecified laterality [facility]* Diagnosis Elevated alkaline phosphatase level Other nonspecific abnormal serum enzyme levels documented in this encounter [facility] note* Diagnosis Elevated alkaline phosphatase level- Primary Other nonspecific abnormal serum enzyme levels Elevated LFTs Other abnormal blood chemistry Elevated alkaline phosphatase level Other nonspecific abnormal serum enzyme levels documented in this encounter [facility] note* Diagnosis Postcoital and contact bleeding- Primary Postcoital bleeding Hidradenitis suppurativa Hidradenitis Unintended weight loss Loss of weight documented in this encounter [facility] note* Diagnosis Acute midline low back pain without sciatica [facility]* Diagnosis Acute cough- Primary Acute cough documented in this encounter [facility] note* Diagnosis Acute cough [facility]* Diagnosis Postcoital and contact bleeding- Primary Postcoital bleeding [facility]* Diagnosis Nexplanon removal- Primary Surveillance of previously prescribed implantable subdermal contraceptive documented in this encounter [facility] note* Diagnosis Weight loss, unintentional- Primary Loss of weight RUQ pain Abdominal pain, right upper quadrant Diarrhea, unspecified type documented in this encounter [facility] note* Diagnosis Closed head injury, initial encounter- Primary documented in this encounter [facility] Work Phone: Evaluation note* Diagnosis Traumatic injury [...] by unspecified means documented in this encounter [facility] note* Diagnosis Traumatic injury of head, initial encounter- Primary Concussion with loss of consciousness, initial encounter [facility]* Diagnosis Abnormal uterine bleeding- Primary Unspecified disorder of menstruation and other abnormal bleeding from female genital tract LLQ pain Abdominal pain, left lower quadrant Screen for STD (sexually transmitted disease) Screening examination for venereal disease [facility]* Diagnosis Yeast vaginitis- Primary Candidiasis of vulva and vagina documented [facility]* Diagnosis Hypermobility arthralgia- Primary Pain in joint, site unspecified PUMA positive Other and unspecified nonspecific immunological findings Fatigue, unspecified type Bone pain Disorder of bone and cartilage, unspecified Muscle pain Mylagia and myositis, unspecified Rash of face Rash and other nonspecific skin eruption Autonomic dysfunction Unspecified disorder of autonomic nervous system Sicca syndrome (HCC) Sicca syndrome [facility]* Diagnosis PUMA positive Other and unspecified nonspecific immunological findings Fatigue, unspecified type Bone pain Disorder of bone and cartilage, unspecified Muscle pain Mylagia and myositis, unspecified Hypermobility arthralgia Pain in joint, site unspecified Rash of face Rash and other nonspecific skin eruption Autonomic dysfunction Unspecified disorder of autonomic nervous system Sicca syndrome (HCC) Sicca syndrome [facility]* Diagnosis RUQ pain Abdominal pain, right upper quadrant [facility]* Diagnosis Treatment not available- Primary Procedure not carried out for other reasons [facility]* Diagnosis Acute left-sided low back pain with left-sided sciatica- Primary [facility]* Diagnosis RUQ pain- Primary Abdominal pain, right upper quadrant Early satiety Nausea Nausea alone Constipation, unspecified constipation type [facility]* Diagnosis Traumatic injury of head, initial encounter Concussion with loss of consciousness, initial encounter [facility] Well adult exam- Primary Routine general medical examination at a health care facility ÁLVARO (generalized anxiety disorder) Generalized anxiety disorder Bipolar 1 disorder (HCC) Bipolar I disorder, most recent episode (or current) unspecified Post concussive syndrome Postconcussion syndrome PUMA positive Other and unspecified nonspecific immunological findings Nausea Nausea alone [facility] Diagnosis RUQ pain Abdominal pain, right upper quadrant Early satiety Nausea Nausea alone [facility] Diagnosis Rash- Primary Rash and other nonspecific skin eruption [facility] Diagnosis Traumatic injury of head, initial encounter Concussion with loss of consciousness, initial encounter [facility] Diagnosis Chronic fatigue- Primary Other malaise and fatigue Hypermobility arthralgia Pain in joint, site unspecified Snores Other dyspnea and respiratory abnormality Hypersomnolence Hypersomnia, unspecified [facility] Diagnosis Traumatic injury of head, initial encounter- Primary Concussion with loss of consciousness, initial encounter [facility] Diagnosis Hypermobility arthralgia- Primary Pain in joint, site unspecified [facility] Diagnosis Traumatic injury of head, initial encounter- Primary [facility] Diagnosis Hypermobility arthralgia- Primary Pain in joint, site unspecified [facility] Diagnosis Folliculitis- Primary Other specified disease of hair and hair follicles [facility] Diagnosis Hypermobility arthralgia- Primary Pain in joint, site unspecified [facility] Diagnosis Hypermobility arthralgia- Primary Pain in joint, site unspecified [facility] Diagnosis Hypermobility arthralgia- Primary Pain in joint, site unspecified Severe episode of recurrent major depressive disorder, without psychotic features (HCC) ÁLVARO (generalized anxiety disorder) Generalized anxiety disorder Chronic low back pain, unspecified back pain laterality, unspecified whether sciatica present History of alcohol abuse Nondependent alcohol abuse, in remission [facility] Diagnosis Boil- Primary Carbuncle and furuncle of unspecified site [facility]* Diagnosis Excessive and frequent menstruation with regular cycle- Primary Excessive or frequent menstruation Breakthrough bleeding on Nexplanon Metrorrhagia [facility]* Diagnosis Generalized abdominal pain- Primary Abdominal pain, generalized Dizziness Dizziness and giddiness Lightheaded Dizziness and giddiness [facility]* Diagnosis Low platelet count (HCC)- Primary Hypermobility arthralgia Pain in joint, site unspecified Severe episode of recurrent major depressive disorder, without psychotic features (HCC) ÁLVARO (generalized anxiety disorder) Generalized anxiety disorder Chronic low back pain, unspecified back pain laterality, unspecified whether sciatica present History of alcohol abuse Nondependent alcohol abuse, in remission [facility]* Diagnosis Acute left-sided low back pain with left-sided sciatica- Primary [facility]* Diagnosis RUQ pain Abdominal pain, right upper quadrant [facility]* Diagnosis Rash- Primary Rash and other nonspecific skin eruption [facility]* Diagnosis Rash- Primary Rash and other nonspecific skin eruption [facility]* Diagnosis Rash- Primary Rash and other nonspecific skin eruption Foot pain, bilateral Pain in limb Irregular periods Irregular menstrual cycle [facility]* Diagnosis Vulvar lesion- Primary Other specified noninflammatory disorder of vulva and perineum Vaginal irritation Unspecified noninflammatory disorder of vagina [facility]* Diagnosis Rash- Primary Rash and other nonspecific skin eruption [facility] Diagnosis Nexplanon in place- Primary Presence of subdermal contraceptive device Breakthrough bleeding on Nexplanon Metrorrhagia 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 Vaginal yeast infection Candidiasis of vulva and vagina [facility] Diagnosis Fatigue, unspecified type- Primary Night sweats Generalized hyperhidrosis Weight loss Loss of weight Headache, unspecified headache type Lightheadedness Dizziness and giddiness Dry skin Other specified disease of sebaceous glands Bruising Contusion of unspecified site [facility] Diagnosis Night sweat Generalized hyperhidrosis Pharyngitis, unspecified etiology RUQ abdominal pain Abdominal pain, right upper quadrant documented in this encounter [facility] note* Diagnosis Right upper quadrant pain- Primary Abdominal pain, right upper quadrant FUO (fever of unknown origin) Fever, unspecified Night sweats Generalized hyperhidrosis Weight loss Loss of weight Fatigue, unspecified type Biliary dyskinesia Other specified disorder of gallbladder documented in this encounter [facility] note* Diagnosis Right upper quadrant pain Abdominal pain, right upper quadrant FUO (fever of unknown origin) Fever, unspecified Night sweats Generalized hyperhidrosis Weight loss Loss of weight Fatigue, unspecified type [facility] Diagnosis RUQ pain Abdominal pain, right upper quadrant documented in this encounter [facility] note* Diagnosis Biliary colic- Primary Calculus of gallbladder without mention of cholecystitis or obstruction Sclerosis of sacroiliac joint Disorders of sacrum [facility]* Diagnosis Smoker- Primary Tobacco use disorder Mild intermittent asthma without complication (HCC) Unspecified asthma Severe episode of recurrent major depressive disorder, without psychotic features (HCC) Pre-op evaluation Preoperative examination, unspecified History of substance abuse (HCC) Other, mixed, or unspecified nondependent drug abuse, unspecified Right upper quadrant pain Abdominal pain, right upper quadrant Biliary dyskinesia Other specified disorder of gallbladder * Assessment & Plan Note - Frankie Rios APRN.CNP - 01/11/2025 2:35 PM EDTAssociated Problem(s): History of substance abuse (HCC) Assessment: History of Alcohol and Cocaine abuse patient has not used since 2020 * Assessment & Plan Note - Frankie Rios APRN.CNP - 01/11/2025 2:34 PM EDTAssociated Problem(s): Major depressive disorder, recurrent episode, severe (HCC) Assessment: stable not currently on medication Denies any suicidal ideation * Assessment & Plan Note - Frankie Rios APRN.CNP - 01/11/2025 2:34 PM EDTAssociated Problem(s): Mild intermittent asthma without complication (HCC) Assessment: stable no inhaler use Denies any Shortness of Breath, recent colds or flare ups * Assessment & Plan Note - Frankie Rios APRN.CNP - 01/11/2025 2:33 PM EDTAssociated Problem(s): Smoker Assessment: Currently Vaping daily documented in this encounter [facility] note* Diagnosis Smoker- Primary Tobacco use disorder Mild intermittent asthma without complication (HCC) Unspecified asthma Severe episode of recurrent major depressive disorder, without psychotic features (HCC) Pre-op evaluation Preoperative examination, unspecified History of substance abuse (HCC) Other, mixed, or unspecified nondependent drug abuse, unspecified Encounter for gynecological examination (general) (routine) with abnormal findings- Primary Dyspareunia in female Nexplanon in place Presence of subdermal contraceptive device Cyst of right ovary Other and unspecified ovarian cyst Vaginal discharge Leukorrhea, not specified as infective Right upper quadrant pain Abdominal pain, right upper quadrant Biliary dyskinesia Other specified disorder of gallbladder documented in this encounter [facility] note* Diagnosis Right upper quadrant pain Abdominal pain, right upper quadrant Biliary dyskinesia Other specified disorder of gallbladder Smoker- Primary Tobacco use disorder Mild intermittent asthma without complication (HCC) Unspecified asthma Severe episode of recurrent major depressive disorder, without psychotic features (HCC) Pre-op evaluation Preoperative examination, unspecified History of substance abuse (HCC) Other, mixed, or unspecified nondependent drug abuse, unspecified documented in this encounter [facility] note* Diagnosis Smoker- Primary Tobacco use disorder Mild intermittent asthma without complication (HCC) Unspecified asthma Severe episode of recurrent major depressive disorder, without psychotic features (HCC) Pre-op evaluation Preoperative examination, unspecified History of substance abuse (HCC) Other, mixed, or unspecified nondependent drug abuse, unspecified Dyspareunia in female- Primary Cyst of right ovary Other and unspecified ovarian cyst [facility]* Diagnosis Smoker- Primary Tobacco use disorder Mild intermittent asthma without complication (HCC) Unspecified asthma Severe episode of recurrent major depressive disorder, without psychotic features (HCC) Pre-op evaluation Preoperative examination, unspecified History of substance abuse (HCC) Other, mixed, or unspecified nondependent drug abuse, unspecified Right upper quadrant pain- Primary Abdominal pain, right upper quadrant Biliary dyskinesia Other specified disorder of gallbladder S/P laparoscopic cholecystectomy Other postprocedural status documented in this encounter [facility] note* Diagnosis Smoker- Primary Tobacco use disorder Mild intermittent asthma without complication (HCC) Unspecified asthma Severe episode of recurrent major depressive disorder, without psychotic features (HCC) Pre-op evaluation Preoperative examination, unspecified History of substance abuse (HCC) Other, mixed, or unspecified nondependent drug abuse, unspecified Dysuria- Primary Acute cystitis without hematuria Acute cystitis documented in this encounter [facility] note* Diagnosis Smoker- Primary Tobacco use disorder Mild intermittent asthma without complication (HCC) Unspecified asthma Severe episode of recurrent major depressive disorder, without psychotic features (HCC) Pre-op evaluation Preoperative examination, unspecified History of substance abuse (HCC) Other, mixed, or unspecified nondependent drug abuse, unspecified Right lower quadrant abdominal pain- Primary Abdominal pain, right lower quadrant documented in this encounter [facility] note* Diagnosis Smoker- Primary Tobacco use disorder Mild intermittent asthma without complication (HCC) Unspecified asthma Severe episode of recurrent major depressive disorder, without psychotic features (HCC) Pre-op evaluation Preoperative examination, unspecified History of substance abuse (HCC) Other, mixed, or unspecified nondependent drug abuse, unspecified Osteitis condensans ilii- Primary Osteitis condensans Irritable bowel syndrome with constipation Irritable bowel syndrome Lymphadenopathy, abdominal Enlargement of lymph nodes Anorexia nervosa, binge-eating purging type, unspecified severity (HCC) Mild intermittent asthma without complication (HCC) Unspecified asthma RLQ abdominal pain Abdominal pain, right lower quadrant Infection in abdomen (HCC) Unspecified peritonitis documented in this encounter [facility] note* Diagnosis Smoker- Primary Tobacco use disorder Mild intermittent asthma without complication (HCC) Unspecified asthma Severe episode of recurrent major depressive disorder, without psychotic features (HCC) Pre-op evaluation Preoperative examination, unspecified History of substance abuse (HCC) Other, mixed, or unspecified nondependent drug abuse, unspecified Infection in abdomen (HCC) Unspecified peritonitis [facility] Diagnosis Smoker- Primary Tobacco use disorder Mild intermittent asthma without complication (HCC) Unspecified asthma Severe episode of recurrent major depressive disorder, without psychotic features (HCC) Pre-op evaluation Preoperative examination, unspecified History of substance abuse (HCC) Other, mixed, or unspecified nondependent drug abuse, unspecified Abnormal CT scan, pelvis- Primary Nonspecific (abnormal) findings on radiological and other examination of abdominal area, including retroperitoneum Sacroiliac pain Disorders of sacrum Encounter for observation for other suspected diseases and conditions ruled out Medication management Encounter for long-term (current) use of other medications documented in this encounter [facility] note* Diagnosis Smoker- Primary Tobacco use disorder Mild intermittent asthma without complication (HCC) Unspecified asthma Severe episode of recurrent major depressive disorder, without psychotic features (HCC) Pre-op evaluation Preoperative examination, unspecified History of substance abuse (HCC) Other, mixed, or unspecified nondependent drug abuse, unspecified Nausea- Primary Nausea alone Seasonal allergic rhinitis, unspecified trigger Pelvic pain [facility] No data available for this section [facility] Discharge instructions* Attachments The following attachments cannot be sent through Care Everywhere. * _Head Injury, Minor, Age >3 yrs, [facility] ([place]) [facility] Note* SHAILA FLOYD DO: SIGN, VERIFY Event Display: EKG [ED AO] - CV Authored Date: [facility] Reason for referral (narrative)* Diagnostic Procedure Only (Routine) - Authorized Specialty Diagnoses / Procedures Referred By Rishi t Referred To Contact [facility] Diagnoses Abnormal uterine bleeding (AUB) Procedures PELVIC US WHI US PELVIC NONOBSTETRIC REAL-TIME IMAGE COMPLETE Pari Livingston APRN.ASSISTANT PROFESSOR OF SPANISH [address] [place] [address] [facility] [address] [place] [address] Referral ID Status Reason Start Date Expiration Date Visits Requested Visits Authorized [id number] Authorized Auto-Generat ed Referral 01/03/2022 01/03/2023 1 1 [facility] for referral (narrative)* Diagnostic Procedure Only (Routine) - Authorized Specialty Diagnoses / Procedures Referred By Contac t Referred To Contact [facility] Diagnoses Breast pain, left Cellulitis, unspecified cellulitis site Procedures US BREAST LTD LT US BREAST UNI REAL TIME WITH IMAGE LIMITED Pari Livingston APRN.CNP [address] [place] [address] [facility] [address] [place] [address] Referral ID Status Reason Start Date Expiration Date Visits Requested Visits Authorized [id number] Authorized Auto-Generat ed Referral 2 07/10/2023 1 1 [facility] for referral (narrative)* Diagnostic Procedure Only (Routine) - Pending Review Specialty Diagnoses / Procedures Referred By Contac t Referred To Contact [facility] Diagnoses Cellulitis, unspecified cellulitis site Procedures US BREAST LTD RT US BREAST UNI REAL TIME WITH IMAGE LIMITED Pari Livingston APRN.CNP [address] [place] [address] [facility] [address] [place] [id number] Referral ID Status Reason Start Date Expiration Date Visits Requested Visits Authorized [id number] Pending Review Auto-Generat ed Referral 2 07/24/2023 1 1 [facility] for referral (narrative)* Diagnostic Procedure Only (Routine) - Closed Specialty Diagnoses / Procedures Referred By Contac t Referred To Contact [facility] Diagnoses Breast pain, left Cellulitis, unspecified cellulitis site Procedures US BREAST LTD LT US BREAST UNI REAL TIME WITH IMAGE LIMITED Pari Livingston APRN.ASSISTANT PROFESSOR [employer] SP[employer]ISH [address] [place] [address] [facility] [address] [place] [address] Referral ID Status Reason Start Date Expiration Date V isits Requested Visits Authorized [id number] Closed Auto-Generate d Referral 06/10/2022 07/10/2023 1 1 [facility] for referral (narrative)* Diagnostic Procedure Only (Routine) - Authorized Specialty Diagnoses / Procedures Referred By Contac t Referred To Contact [facility] Diagnoses Abnormal liver function tests Procedures US ABD RIGHT UPPER QUADRANT US ABDOMINAL REAL TIME W/IMAGE LIMITED Gaetano Schneider MD [address] [place] [address] [facility] Referral ID Status Reason Start Date Expiration Date Visits Requested Visits Authorized [id number] Authorized Auto-Generat ed Referral 11/11/2022 12/11/2023 1 1 [facility] for referral (narrative)* Diagnostic Procedure Only (Routine) - Closed Specialty Diagnoses / Procedures [facility] Diagnoses Chronic constipation Abdominal pain, LLQ Abdominal bloating Nausea and vomiting, unspecified vomiting type Heartburn Weight loss Change in bowel habits Procedures XR ABDOMEN 3V KUB W/OBLIQUES RADIOLOGIC EXAM ABDOMEN 3+ VIEWS Gaetano Schneider MD [address] [place] [address] [facility] Referral ID Status Reason Start Date Expiration Date V isits Requested Visits Authorized [id number] Closed Auto-Generate d Referral 11/07/2022 12/07/2023 1 1 [facility] for referral (narrative)* Diagnostic Procedure Only (Urgent) - Closed Specialty Diagnoses / Procedures Referred By Contac t Referred To Contact [facility] Diagnoses Acute midline low back pain without sciatica Procedures XR LUMBAR GENERAL 3V AP/LAT/L5-S1 RADEX SPINE LUMBOSACRAL 2/3 VIEWS Lissette Jay PA-C [address] [place] [address] [facility] Referral ID Status Reason Start Date Expiration Date V isits Requested Visits Authorized [id number] Closed Auto-Generate d Referral 12/10/2022 01/09/2024 1 1 [facility] for referral (narrative)* Diagnostic Procedure Only (Routine) - Closed Specialty Diagnoses / Procedures Referred By Contac t Referred To Contact [facility] Diagnoses Abnormal liver function tests Procedures US ABD RIGHT UPPER QUADRANT US ABDOMINAL REAL TIME W/IMAGE LIMITED Gaetano Schneider MD [address] [place] [address] [facility] [place] [address] Referral ID Status Reason Start Date Expiration Date V isits Requested Visits Authorized [id number] Closed Auto-Generate d Referral 11/11/2022 12/11/2023 1 1 [facility] for referral (narrative)* Diagnostic Procedure Only (Routine) - Closed Specialty Diagnoses / Procedures Referred By Contac t Referred To Contact XR IMAGING Diagnoses Chronic constipation Abdominal pain, LLQ Abdominal bloating Nausea and vomiting, unspecified vomiting type Heartburn Weight loss Change in bowel habits Procedures XR ABDOMEN 3V KUB W/OBLIQUES RADIOLOGIC EXAM ABDOMEN 3+ VIEWS Gaetano Schneider MD [address] [place] [address] [place] [address] Referral ID Status Reason Start Date Expiration Date V isits Requested Visits Authorized [id number] Closed Auto-Generate d Referral 11/07/2022 12/07/2023 1 1 T [facility] for referral (narrative)* Diagnostic Procedure Only (Routine) - Authorized Specialty Diagnoses / Procedures Referred By Contac t Referred To Contact [facility] Diagnoses care, antepartum Procedures NUCHAL TRANSLUCENCY WHI US NUCHAL TRANSLUCENCY 1ST GESTATION Jose Cruz Espitia MD [address] [place] [address] [address] Referral ID Status Reason Start Date Expiration Date Visits Requested Visits Authorized [id number] Authorized Auto-Generat ed Referral 05/19/2023 05/18/2024 1 1 [facility] for referral (narrative)* Diagnostic Procedure Only (Routine) - Authorized Specialty Diagnoses / Procedures Referred By Contac t Referred To Contact [facility] Diagnoses Supervision of high risk , antepartum 13 weeks gestation of Supervision of high risk in second trimester Procedures OBSTETRIC ULTRASOUND WHI US PREG UTERUS AFTER 1ST TRIMEST GESTATION Daisy Hilliard APRN.CNM [address] [place] [address] [address] Referral ID Status Reason Start Date Expiration Date Visits Requested Visits Authorized [id number] Authorized Auto-Generat ed Referral 06/12/2023 06/11/2024 1 1 [facility] for referral (narrative)* Diagnostic Procedure Only (Routine) - Pending Review Specialty Diagnoses / Procedures Referred By Contac t Referred To Contact [facility] Diagnoses 23 weeks gestation of Sinus tachycardia Procedures OBSTETRIC ULTRASOUND WHI US PREG UTERUS AFTER 1ST TRIMEST GESTATION Daisy Hilliard APRN.CNM [address] [place] [address] [address] Referral ID Status Reason Start Date Expiration Date Visits Requested Visits Authorized [id number] Pending Review Auto-Generat ed Referral 08/17/2023 08/16/2024 5 1 [facility] for referral (narrative)* Diagnostic Procedure Only (Routine) - Pending Review Specialty Diagnoses / Procedures Referred By Contac t Referred To Contact [facility] Diagnoses 32 weeks gestation of Decreased movements in third trimester, single or unspecified fetus Procedures BIOPHYSICAL PROFILE US I BIOPHYSICAL PROFILE NON-STRESS TESTING Lesli Solano APRN.CNP [address] [place] [address] [facility] [address] [place] [address] Referral ID Status Reason Start Date Expiration Date Visits Requested Visits Authorized [id number] Pending Review Auto-Generat ed Referral 10/19/2023 10/18/2024 10 1 [facility] for referral (narrative)* Diagnostic Procedure Only (Routine) - Authorized Specialty Diagnoses / Procedures Referred By Contac t Referred To Contact [facility] Diagnoses 38 weeks gestation of High-risk in third trimester Procedures OBSTETRIC ULTRASOUND WHI US PREG UTERUS AFTER 1ST TRIMEST GESTATION Daisy Hilliard APRN.CNM [address] [place] [address] [facility] [address] [place] [address] Referral ID Status Reason Start Date Expiration Date Visits Requested Visits Authorized [id number] Authorized Auto-Generat ed Referral 12/02/2023 12/01/2024 5 1 [facility] for referral (narrative)* Outpatient Procedure (Routine) - Authorized Specialty Diagnoses / Procedures Referred By Contac t Referred To Contact [facility] Diagnoses Encounter for initial prescription of implantable subdermal contraceptive Procedures NEXPLANON INSERTION ETONOGESTREL IMPLANT SYSTEM INSERT DRUG IMPLANT DEVICE aPri Livingston APRN.CNP [address] [place] [address] [facility] [address] [place] [address] Referral ID Status Reason Start Date Expiration Date Visits Requested Visits Authorized [id number] Authorized Auto-Generat ed Referral 12/22/2023 12/21/2024 1 1 [facility] for referral (narrative)* Diagnostic Procedure Only (Routine) - Authorized Specialty Diagnoses / Procedures Referred By Contac t Referred To Contact [facility] Diagnoses RUQ pain Nausea and vomiting, unspecified vomiting type Diarrhea, unspecified type Procedures US ABD RIGHT UPPER QUADRANT US ABDOMINAL REAL TIME W/IMAGE LIMITED Wu Herrera MD [address] [place] [address] [place] [address] Referral ID Status Reason Start Date Expiration Date Visits Requested Visits Authorized [id number] Authorized Auto-Generat ed Referral 01/18/2024 02/16/2025 1 1 [facility] for referral (narrative)* Diagnostic Procedure Only (Routine) - Authorized Specialty Diagnoses / Procedures Referred By Contac t Referred To Contact [facility] Diagnoses Lump in chest Breast skin changes Procedures US BREAST LTD RIGHT US BREAST UNI REAL TIME WITH IMAGE LIMITED Pari Livingston APRN.CNP [address] [place] [address] [facility] [address] [place] [address] Referral ID Status Reason Start Date Expiration Date Visits Requested Visits Authorized [id number] Authorized Auto-Generat ed Referral 01/19/2024 02/17/2025 1 1 * Diagnostic Procedure Only (Routine) - Authorized Specialty Diagnoses / Procedures Referred By Contac t Referred To Contact [facility] Diagnoses Lump in chest Breast skin changes Procedures US BREAST LTD LEFT US BREAST UNI REAL TIME WITH IMAGE LIMITED Pari Livingston APRN.ASSISTANT PROFESSOR OF SPANISH [address] [place] [address] [facility] [address] [place] [address] Referral ID Status Reason Start Date Expiration Date Visits Requested Visits Authorized [id number] Authorized Auto-Generat ed Referral 01/19/2024 02/17/2025 1 1 * Outpatient Procedure (Routine) - Pending Review Specialty Diagnoses / Procedures Referred By Contac t Referred To Contact [facility] Diagnoses Insertion of implantable subdermal contraceptive Procedures NEXPLANON INSERTION ETONOGESTREL IMPLANT SYSTEM INSERT DRUG IMPLANT DEVICE Pari Livingston APRN.CNP [address] [place] [address] [facility] [address] [place] [address] Referral ID Status Reason Start Date Expiration Date Visits Requested Visits Authorized [id number] Pending Review Auto-Generat ed Referral 01/19/2024 01/18/2025 1 1 [facility] for referral (narrative)* Diagnostic Procedure Only (Routine) - Closed Specialty Diagnoses / Procedures Referred By Contac t Referred To Contact XR IMAGING Diagnoses Pain in bar[place], unspecified laterality Procedures XR TIBIA FIBULA 2V AP/LAT RIGHT RADIOLOGIC EXAMINATION TIBIA & FIBULA 2 VIEWS Wu Herrera MD [address] [place] [address] [place] [address] Referral ID Status Reason Start Date Expiration Date V isits Requested Visits Authorized [id number] Closed Auto-Generate d Referral 02/29/2024 03/30/2025 1 1 * Diagnostic Procedure Only (Routine) - Closed Specialty Diagnoses / Procedures Referred By Contac t Referred To Contact XR IMAGING Diagnoses Pain in bar[place], unspecified laterality Procedures XR TIBIA FIBULA 2V AP/LAT LEFT RADIOLOGIC EXAMINATION TIBIA & FIBULA 2 VIEWS Wu Herrera MD [address] [place] [address] [facility] [place] [address] Referral ID Status Reason Start Date Expiration Date V isits Requested Visits Authorized [id number] Closed Auto-Generate d Referral 02/29/2024 03/30/2025 1 1 * Consult, Test, Treat (Routine) - Authorized Specialty Diagnoses / Procedures Referred By Contac t Referred To Contact Rheumatology Diagnoses PUMA positive Fatigue, unspecified type Bone pain Muscle pain Procedures CONSULT TO RHE[facility]IMM[facility] DISEASE OFFICE[facility] Wu Herrera MD [address] [place] [address] Referral ID Status Reason Start Date Expiration Date Visits Requested Visits Authorized [id number] Authorized PCP Requested Referral 02/29/2024 02/28/2025 1 1 * Diagnostic Procedure Only (Routine) - Authorized Specialty Diagnoses / Procedures Referred By Contac t Referred To Contact [facility] Diagnoses RUQ pain Diarrhea, unspecified type Weight loss, unintentional Procedures NM HEPATOBILIARY W EF AND/OR RX HEPATOBIL SYST IMAG INC GB W/PHARMA INTERVENJ Wu Herrera MD [address] [place] [address] [facility] [address] [place] [address] Referral ID Status Reason Start Date Expiration Date Visits Requested Visits Authorized [id number] Authorized Auto-Generat ed Referral 02/29/2024 03/30/2025 1 1 [facility] for referral (narrative)* Diagnostic Procedure Only (Routine) - Closed Specialty Diagnoses / Procedures Referred By Contac t Referred To Contact [facility] Diagnoses RUQ pain Diarrhea, unspecified type Weight loss, unintentional Procedures NM HEPATOBILIARY W EF AND/OR RX HEPATOBIL SYST IMAG INC GB W/PHARMA INTERVENJ Wu Herrera MD [address] [place] [address] [facility] [address] [place] [address] Referral ID Status Reason Start Date Expiration Date V isits Requested Visits Authorized [id number] Closed Auto-Generate d Referral 02/29/2024 03/30/2025 1 1 [facility] for referral (narrative)* Diagnostic Procedure Only (Routine) - Closed Specialty Diagnoses / Procedures [facility] To [facility] Diagnoses Elevated alkaline phosphatase level Procedures NM BONE WHOLE BODY BONE &/JOINT IMAGING WHOLE BODY Wu Herrera MD [address] [place], [place] [id number] Molecular & Functional Imaging [address] [place] [address] Referral ID Status Reason Start Date Expiration Date V isits Requested Visits Authorized [id number] Closed Auto-Generate d Referral 03/03/2024 04/02/2025 1 1 [facility] for referral (narrative)* Diagnostic Procedure Only (Routine) - Closed Specialty Diagnoses / Procedures [facility] Referred To Contact XR IMAGING Diagnoses Elevated alkaline phosphatase level Procedures XR SKULL 2V AP/LAT RADIOLOGIC EXAMINATION SKULL 4< VIEWS Wu Herrera MD [facility] [place] [id number] Xr Imaging [place] [address] Referral ID Status Reason Start Date Expiration Date V isits Requested Visits Authorized [id number] Closed Auto-Generate d Referral 03/13/2024 04/12/2025 1 1 * Consult, Test, Treat (Routine) - Authorized Specialty Diagnoses / Procedures [facility] Referred To Contact Gastroenterology Diagnoses Upper abdominal pain Elevated LFTs Elevated alkaline phosphatase level Weight loss Procedures CONSULT TO GASTROENTEROLOGY OFFICE/OUTPATIENT [facility] MDM 60 MINUTES Wu Herrera MD [address] [place] [address] Referral ID Status Reason Start Date Expiration Date Visits Requested Visits Authorized [id number] Authorized PCP Requested Referral 03/13/2024 03/13/2025 1 1 [facility] for referral (narrative)* Diagnostic Procedure Only (Routine) - Closed Specialty Diagnoses / Procedures Referred By Contac t Referred To Contact XR IMAGING Diagnoses Pain in barney, unspecified laterality Procedures XR TIBIA FIBULA 2V AP/LAT RIGHT RADIOLOGIC EXAMINATION TIBIA & FIBULA 2 VIEWS Wu Herrera MD [facility] [place] [address] [place] [address] Referral ID Status Reason Start Date Expiration Date V isits Requested Visits Authorized [id number] Closed Auto-Generate d Referral 02/29/2024 03/30/2025 1 1 * Diagnostic Procedure Only (Routine) - Closed Specialty Diagnoses / Procedures Referred By Contac t Referred To Contact XR IMAGING Diagnoses Pain in barney, unspecified laterality Procedures XR TIBIA FIBULA 2V AP/LAT LEFT RADIOLOGIC EXAMINATION TIBIA & FIBULA 2 VIEWS Wu Herrera MD [address] [place] [address] [place] [address] Referral ID Status Reason Start Date Expiration Date V isits Requested Visits Authorized [id number] Closed Auto-Generate d Referral 02/29/2024 03/30/2025 1 1 [facility] for referral (narrative)* Diagnostic Procedure Only (Routine) - Closed Specialty Diagnoses / Procedures Referred By Contac t Referred To Contact XR IMAGING Diagnoses Elevated alkaline phosphatase level Procedures XR SKULL 2V AP/LAT RADIOLOGIC EXAMINATION SKULL 4< VIEWS Wu Herrera MD [address] [place] [address] [place] [address] Referral ID Status Reason Start Date Expiration Date V isits Requested Visits Authorized [id number] Closed Auto-Generate d Referral 03/13/2024 04/12/2025 1 1 [facility] for referral (narrative)* Diagnostic Procedure Only (Routine) - Closed Specialty Diagnoses / Procedures Referred By Contac t Referred To Contact MOLECULAR & FUNCTIONAL IMAGING Diagnoses Elevated alkaline phosphatase level Procedures NM BONE WHOLE BODY BONE &/JOINT IMAGING WHOLE BODY Wu Herrera MD [address] [place] [address] Molecular [facility] Functional Imaging [address] [place] [id number] Referral ID Status Reason Start Date Expiration Date V isits Requested Visits Authorized [id number] Closed Auto-Generate d Referral 03/03/2024 04/02/2025 1 1 [facility] for referral (narrative)* Diagnostic Procedure Only (Routine) - Authorized Specialty Diagnoses / Procedures Referred By Contac t Referred To Contact [facility] Diagnoses Postcoital and contact bleeding Procedures PELVIC US WHI US PELVIC NONOBSTETRIC REAL-TIME IMAGE COMPLETE Lesli Solano APRN.CNP [address] [place] [address] [facility] [address] [place], [place] [id number] Referral ID Status Reason Start Date Expiration Date Visits Requested Visits Authorized [id number] Authorized Auto-Generat ed Referral 03/31/2024 03/31/2025 1 1 [facility] for referral (narrative)* Diagnostic Procedure Only (Urgent) - Closed Specialty Diagnoses / Procedures Referred By Contac t Referred To Contact XR IMAGING Diagnoses Acute midline low back pain without sciatica Procedures XR LUMBAR GENERAL 3V AP/LAT/L5-S1 RADEX SPINE LUMBOSACRAL 2/3 VIEWS iLssette Jay PA-C [address] [place] [address] [facility] [address] Referral ID Status Reason Start Date Expiration Date V isits Requested Visits Authorized [id number] Closed Auto-Generate d Referral 12/10/2022 01/09/2024 1 1 [facility] for referral (narrative)* Outpatient Procedure (Routine) - New Request Specialty Diagnoses / Procedures Referred By Contac t Referred To Contact [facility] Diagnoses Nexplanon removal Procedures NEXPLANON REMOVAL REMOVAL NON-BIODEGRADABLE DRUG DELIVERY IMPLANT Lesli Solano APRN.ASSISTANT PROFESSOR OF SPANISH [address] [place] [address] [facility] [address] [place], [place] [id number] Referral ID Status Reason Start Date Expiration Date Visits Requested Visits Authorized [id number] New Request Auto-Generat ed Referral 04/11/2024 04/11/2025 1 1 [facility] for referral (narrative)* Outpatient Procedure (Routine) - Closed Specialty Diagnoses / Procedures Referred By Contac t Referred To Contact [facility] Diagnoses Diarrhea, unspecified type Procedures COLONOSCOPY DIAGNOSTIC COLONOSCOPY FLX DX W/COLLJ SPEC WHEN PFRMD Ofelia Merritt PA-C [address] [place] [address] [facility] [address] [place] [address] Referral ID Status Reason Start Date Expiration Date V isits Requested Visits Authorized [id number] Closed Auto-Generate d Referral 03/23/2024 03/23/2025 1 1 * Outpatient Procedure (Routine) - Closed Specialty Diagnoses / Procedures Referred By Contac t Referred To Contact [facility] Diagnoses RUQ pain Procedures EGD DIAGNOSTIC ESOPHAGOGASTRODUODENOS COPY TRANSORAL DIAGNOSTIC Ofelia Merritt PA-C [address] [place] [place] [address] [facility] [place] [place] [address] [place] [address] Referral ID Status Reason Start Date Expiration Date V isits Requested Visits Authorized [id number] Closed Auto-Generate d Referral 03/23/2024 03/23/2025 1 1 [facility] for referral (narrative)* Diagnostic Procedure Only (Routine) - Closed Specialty Diagnoses / Procedures Referred By Rishi sterling Referred To Contact XR IMAGING Diagnoses PUMA positive Fatigue, unspecified type Bone pain Muscle pain Hypermobility arthralgia Rash of face Autonomic dysfunction Sicca syndrome (HCC) Procedures XR HAND GENERAL 3V PA/LAT/OBL BILATERAL RADEX HAND MINIMUM 3 [place] [address] [place] [address] [place] [address] Referral ID Status Reason Start Date Expiration Date V isits Requested Visits Authorized [id number] Closed Auto-Generate d Referral 06/16/2024 07/16/2025 1 1 [facility] for referral (narrative)* Diagnostic Procedure Only (Routine) - New Request Specialty Diagnoses / Procedures Referred By iRshi sterling Referred To Contact MOLECULAR & FUNCTIONAL IMAGING Diagnoses RUQ pain Early satiety Nausea Procedures NM GASTRIC EMPTYING SOLID GASTRIC EMPTYING STUDY Ofelia Merritt PA-C [address] [place] [address] [facility] [address] [place] [address] Referral ID Status Reason Start Date Expiration Date Visits Requested Visits Authorized [id number] New Request Auto-Generat ed Referral 07/23/2025 1 1 [facility] for referral (narrative)* Diagnostic Procedure Only (Routine) - Closed Specialty Diagnoses / Procedures [facility] Referred To Contact MOLECULAR & FUNCTIONAL IMAGING Diagnoses RUQ pain Early satiety Nausea Procedures NM GASTRIC EMPTYING SOLID GASTRIC EMPTYING STUDY Ofeila Merritt PA-C [address] [place] [address] [facility] [address] [place] [address] Referral ID Status Reason Start Date Expiration Date V isits Requested Visits Authorized [id number] Closed Auto-Generate d Referral 06/23/2024 07/23/2025 1 1 [facility] for visit Narrative* Diagnostic Procedure Only (Routine) - Closed Specialty Diagnoses / Procedures [facility] Referred To Contact BR IMAGING Diagnoses Breast pain, left Cellulitis, unspecified cellulitis site Procedures US BREAST LTD LT US BREAST UNI REAL TIME WITH IMAGE LIMITED Pari Livingston, SCENERY BUILDER.ASSISTANT PROFESSOR OF SPANISH [address] [place] [address] [facility] [address] [place] [address] Referral ID Status Reason Start Date Expiration Date V isits Requested Visits Authorized [id number] Closed Auto-Generate d Referral 06/10/2022 07/10/2023 1 1 [facility] for visit Narrative* Outpatient Procedure (Routine) - Closed Specialty Diagnoses / Procedures [facility] Referred To Contact [facility] Diagnoses Nexplanon removal Procedures NEXPLANON REMOVAL REMOVAL NON-BIODEGRADABLE DRUG DELIVERY IMPLANT ETONOGESTREL IMPLANT SYSTEM Pari Livingston, SCENERY BUILDER.ASSISTANT PROFESSOR OF SPANISH [address] [place] [address] [facility] [address] [place] [address] Referral ID Status Reason Start Date Expiration Date V isits Requested Visits Authorized [id number] Closed Auto-Generate d Referral 02/24/2023 07/12/2023 1 1 [facility] for visit Narrative* Diagnostic Procedure Only (Routine) - Closed Specialty Diagnoses / Procedures Referred By Contac t Referred To Contact XR IMAGING Diagnoses Chronic constipation Abdominal pain, LLQ Abdominal bloating Nausea and vomiting, unspecified vomiting type Heartburn Weight loss Change in bowel habits Procedures XR ABDOMEN 3V KUB W/OBLIQUES RADIOLOGIC EXAM ABDOMEN 3+ VIEWS Gaetano Schneider MD [address] [place] [address] Xr Imaging [place] [address] Referral ID Status Reason Start Date Expiration Date V isits Requested Visits Authorized [id number] Closed Auto-Generate d Referral 11/07/2022 12/07/2023 1 1 [facility] for visit Narrative* Diagnostic Procedure Only (Routine) - Closed Specialty Diagnoses / Procedures Referred By Contac t Referred To Contact MOLECULAR & FUNCTIONAL IMAGING Diagnoses Elevated alkaline phosphatase level Procedures NM BONE WHOLE BODY BONE &/[place] [address] [place] [address] [facility] [address] [place] [id number] Referral ID Status Reason Start Date Expiration Date V isits Requested Visits Authorized [id number] Closed Auto-Generate d Referral 03/03/2024 04/02/2025 1 1 [facility] for visit Narrative* Diagnostic Procedure Only (Routine) - Closed Specialty Diagnoses / Procedures Referred By Contac t Referred To Contact XR IMAGING Diagnoses Pain in barney, unspecified laterality Procedures XR TIBIA FIBULA 2V AP/LAT RIGHT RADIOLOGIC EXAMINATION TIBIA & FIBULA 2 VIEWS Wu Herrera MD [address] [place] [address] Xr Imaging [facility] Referral ID Status Reason Start Date Expiration Date V isits Requested Visits Authorized [id number] Closed Auto-Generate d Referral 02/29/2024 03/30/2025 1 1 [facility] for visit Narrative* Diagnostic Procedure Only (Routine) - Closed Specialty Diagnoses / Procedures Referred By Contac t Referred To Contact XR IMAGING Diagnoses Elevated alkaline phosphatase level Procedures XR SKULL 2V AP/LAT RADIOLOGIC EXAMINATION SKULL 4< VIEWS Wu Herrera MD [address] [place] [address] [place] [address] Referral ID Status Reason Start Date Expiration Date V isits Requested Visits Authorized [id number] Closed Auto-Generate d Referral 03/13/2024 04/12/2025 1 1 [facility] for visit Narrative* Diagnostic Procedure Only (Urgent) - Closed Specialty Diagnoses / Procedures Referred By Contac t Referred To Contact XR IMAGING Diagnoses Acute midline low back pain without sciatica Procedures XR LUMBAR GENERAL 3V AP/LAT/L5-S1 RADEX SPINE LUMBOSACRAL 2/3 VIEWS Lissette Jay PA-C [address] [place] [address] [place] [address] Referral ID Status Reason Start Date Expiration Date V isits Requested Visits Authorized [id number] Closed Auto-Generate d Referral 12/10/2022 01/09/2024 1 1 [facility] for visit Narrative* Diagnostic Procedure Only (Routine) - Closed Specialty Diagnoses / Procedures Referred By Contac t Referred To Contact [facility] Diagnoses Postcoital and contact bleeding Procedures PELVIC US I US PELVIC NONOBSTETRIC REAL-TIME IMAGE COMPLETE Lesli Solano APRN.ASSISTANT PROFESSOR OF SPANISH [address] [place] [address] [facility] [address] [place] [address] Referral ID Status Reason Start Date Expiration Date V isits Requested Visits Authorized [id number] Closed Auto-Generate d Referral 03/31/2024 03/31/2025 1 1 [facility] for visit Narrative* Outpatient Procedure (Routine) - Closed Specialty Diagnoses / Procedures Referred By Contac t Referred To Contact [facility] Diagnoses Diarrhea, unspecified type Procedures COLONOSCOPY DIAGNOSTIC COLONOSCOPY FLX DX W/COLLJ SPEC WHEN FIDENCIORMOfelia Cee PA-C [address] [place] [address] [facility] [address] [place] [address] Referral ID Status Reason Start Date Expiration Date V isits Requested Visits Authorized [id number] Closed Auto-Generate d Referral 03/23/2024 03/23/2025 1 1 [facility] for visit Narrative* Diagnostic Procedure Only (Routine) - Closed Specialty Diagnoses / Procedures Referred By Contac t Referred To Contact US IMAGING Diagnoses Night sweat Pharyngitis, unspecified etiology RUQ abdominal pain Procedures US ABD RIGHT UPPER QUADRANT US ABDOMINAL REAL TIME W/IMAGE LIMITED Dee Roca PA-C [address] [place] [address] Phone: tel: fax: [place] [address] Referral ID Status Reason Start Date Expiration Date V isits Requested Visits Authorized [id number] Closed Auto-Generate d Referral 12/01/2024 12/31/2025 1 1 [facility] for visit Narrative* MRI/CT (Routine) - Closed Specialty Diagnoses / Procedures Referred By Eloyac t Referred To Contact CT IMAGING Diagnoses Right upper quadrant pain FUO (fever of unknown origin) Night sweats Weight loss Fatigue, unspecified type Procedures CT ABD/PEL W IVCON CT ABD & PELVIS W/CONTRAST Dee Roca PA-C [address] [place] [address] Phone: tel: fax: [place] [address] Referral ID Status Reason Start Date Expiration Date V isits Requested Visits Authorized [id number] Closed Auto-Generate d Referral 12/16/2024 02/14/2025 2 2 [facility] for visit Narrative* Diagnostic Procedure Only (Routine) - Closed Specialty Diagnoses / Procedures Referred By Contac t Referred To Contact [facility] Diagnoses Dyspareunia in female Cyst of right ovary Procedures PELVIC US I US PELVIC NONOBSTETRIC REAL-TIME IMAGE COMPLETE Daisy Hilliard, YOANA.GIANFRANCO [address] [place] [address] Phone: tel: fax: [facility] [address] [place] [address] Referral ID Status Reason Start Date Expiration Date V isits Requested Visits Authorized [id number] Closed Auto-Generate d Referral 01/23/2025 01/23/2026 1 1 [facility] for visit Narrative* MRI/CT (Urgent) - Closed Specialty Diagnoses / Procedures Referred By Contac t Referred To Contact CT IMAGING Diagnoses Infection in abdomen (HCC) Procedures CT ABD/PEL W IVCON CT ABD & PELVIS W/CONTRAST Wu Herrera MD [address] [place] [address] Phone: tel: fax: [place] [address] Referral ID Status Reason Start Date Expiration Date V isits Requested Visits Authorized [id number] Closed Auto-Generat ed Referral Patient Cleared - Admin/Chairm an/Director advise to proceed or did not respond 03/08/2025 05/07/2025 1 1 [facility] for visit Narrative* MRI/CT (Urgent) - Closed Specialty Diagnoses / Procedures Referred By Contac t Referred To Contact CT IMAGING Diagnoses Infection in abdomen (HCC) Procedures CT ABD/PEL W IVCON CT ABD & PELVIS W/CONTRAST Wu Herrera MD [address] [place] [address] Phone: tel: fax: [place] [address] Referral ID Status Reason Start Date Expiration Date V isits Requested Visits Authorized [id number] Closed Auto-Generat ed Referral Patient Cleared - Admin/Chairm an/Director advise to proceed or did not respond 03/08/2025 05/07/2025 1 1 [facility] Summary Purpose Family History No Family [...] HIGH COMPLEX [address] [place] [address] [place] [address] [facility] [address] [address] Referral ID Status Reason Start Date Expiration Date Visits Requested Visits Authorized [id number] Pending Review Auto-Generat ed Referral 07/27/2024 07/27/2025 1 1 Specialty Diagnoses / Procedures Referred By Contac t Referred To Contact Diagnoses Traumatic injury of head, initial encounter Concussion with loss of consciousness, initial encounter Procedures PROVIDER ORDERED FOLLOW UP OFFICE/OUTPATIENT [facility] MDM 60 MINUTES Carmen Siegel MD [address] [place] [phone] Referral ID Status Reason Start Date Expiration Date Visits Requested Visits Authorized [id number] Authorized PCP Requested Referral 09/27/2024 06/29/2025 1 1 Specialty Diagnoses / Procedures Referred By Contac t Referred To Contact MR IMAGING Diagnoses Traumatic injury of head, initial encounter Concussion with loss of consciousness, initial encounter Procedures MRI BRAIN WO IVCON MRI BRAIN BRAIN STEM W/[place] [address] [place], [place] [phone] [place] [address] Referral ID Status Reason Start Date Expiration Date Visits Requested Visits Authorized [id number] Pending Review Auto-Generat ed Referral 07/29/2025 1 1 Specialty Diagnoses / Procedures Referred By Contac t Referred To Contact [facility] Diagnoses Traumatic injury of head, initial encounter Concussion with loss of consciousness, initial encounter Procedures CONSULT TO PHYSICAL THERAPY PHYSICAL THERAPY EVALUATION HIGH COMPLEX 45 MINS Carmen Siegel MD [address] [place] [address] [facility] [address] [address] Referral ID Status Reason Start Date Expiration Date Visits Requested Visits Authorized [id number] Authorized Auto-Generat ed Referral 07/13/2024 07/12/2025 10 10 Specialty Diagnoses / Procedures Referred By Contac t Referred To Contact Neurology Diagnoses Traumatic injury of head, initial encounter Concussion with loss of consciousness, initial encounter Procedures CONSULT TO NEUROLOGY OFFICE/OUTPATIENT [facility] MDM 60 MINUTES Wu Herrera MD [address] [place] [address] Referral ID Status Reason Start Date Expiration Date Visits Requested Visits Authorized [id number] Authorized PCP Requested Referral 05/30/2025 1 1 Specialty Diagnoses / Procedures Referred By Contac t Referred To Contact Ent - Otolaryngology Diagnoses Traumatic injury of head, initial encounter Hoarseness of voice Procedures CONSULT TO [facility] OFFICE[facility] Wu Herrera MD [address] [place] [phone] Referral ID Status Reason Start Date Expiration Date Visits Requested Visits Authorized [id number] Authorized PCP Requested Referral 4 05/28/2025 1 1 Specialty Diagnoses / Procedures Referred By Contac t Referred To Contact Plastic Surgery Diagnoses Chronic bilateral back pain, unspecified back location Procedures CONSULT TO PLASTIC SURG[facility] OFFICE[facility] 60 MINUTES Lesli Solano APRN.ASSISTANT PROFESSOR OF SPANISH [address] [place] [address] Referral ID Status Reason Start Date Expiration Date Visits Requested Visits Authorized [id number] Authorized PCP Requested Referral 02/15/2024 02/14/2025 1 1 Specialty Diagnoses / Procedures Referred By Contac t Referred To Contact Diagnoses Morning sickness Cora Alexander, SCENERY BUILDER.ASSISTANT PROFESSOR OF SPANISH [address] [place] [address] Referral ID Status Reason Start Date Expiration Date Visits Re quested Visits Authorized [id number] Closed 1 1 Specialty Diagnoses / Procedures Referred By Contac t Referred To Contact Gastroenterology Diagnoses Chronic constipation Procedures CONSULT TO [facility]STR[facility]ENTEROLOGY OFFICE[facility] 60-74 MINUTES Gloria Hutton PA-C [address] [place] [address] Referral ID Status Reason Start Date Expiration Date Visits Requested Visits Authorized [id number] Authorized PCP Requested Referral 10/13/2022 10/13/2023 1 [...] section and content) DATE CREATED AUTHOR 03/16/2018 [facility] DATE CREATED AUTHOR AUTHOR'S ORGANIZ ATION 04/05/2021 [facility] DATE CREATED AUTHOR AUTHOR'S ORGANIZ ATION 06/20/2021 [facility] [place] DATE CREATED AUTHOR AUTHOR'S ORGANIZ ATION 11/29/2021 [facility] DATE CREATED AUTHOR AUTHOR'S ORGANIZ ATION 02/03/2022 [facility] ([place]) DATE CREATED AUTHOR AUTHOR'S ORGANIZ ATION 04/11/2022 [facility] DATE CREATED AUTHOR AUTHOR'S ORGANIZ ATION 11/07/2023 [facility] DATE CREATED AUTHOR AUTHOR'S ORGANIZ ATION 11/30/2023 [facility] DATE CREATED AUTHOR AUTHOR'S ORGANIZ ATION 05/29/2024 [facility] DATE CREATED AUTHOR AUTHOR'S ORGANIZ ATION 01/31/2025 [facility] DATE CREATED AUTHOR AUTHOR'S ORGANIZ ATION 03/10/2025 [facility] DATE CREATED AUTHOR AUTHOR'S ORGANIZ ATION 04/02/2025 [facility] DATE CREATED AUTHOR AUTHOR'S ORGANIZ ATION 05/23/2025 [facility] Reason for Visit (unrecogniz ed section and content) Reason Comments Physical Therapy Specialty Diagnoses / Procedures Referred By Contac t Referred To Contact [facility] Diagnoses Traumatic injury of head, initial encounter Concussion with loss of consciousness, initial encounter Procedures CONSULT TO PHYSICAL THERAPY PHYSICAL THERAPY EVALUATION HIGH COMPLEX 45 MINS Carmen Siegel MD [address] [place] [address] [facility] [place] [address] [place] [address] Referral ID Status Reason Start Date Expiration Date Visits Requested Visits Authorized [id number] Authorized Auto-Generat ed Referral 07/13/2024 07/12/2025 99 99 Reason Comments PT Eval Reason Comments PT Discharge Reason Comments Addiction Problem Pt would like detox from [facility]. pt states last drink was 5 days ago and has been going through [facility]. Pt states she has been having chills, nausea, vomiting, insomnia, and shaking. 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 Reason Comments Refill Request Reason Comments [...] Constipation Specialty Diagnoses / Procedures Referred By Rishi sterling Referred To Contact Gastroenterology Diagnoses Chronic constipation Procedures CONSULT TO GASTROENTEROLOGY OFFICE/OUTPATIENT [facility] MDM 60-74 MINUTES Gloria Hutton PA-C [address] [place] [address] Referral ID Status Reason Start Date Expiration Date V isits Requested Visits Authorized [id number] Closed PCP Requested Referral 10/13/2022 10/13/2023 1 [...] Comments Weight Problem Weight gain x 4 ruma hs and fatigue Reason Comments Derm Problem Boil on right buttoc k x 3 days Reason Comments test requesting blood pre gnancy testing, at home test positive for Reason Comments breast pump Reason Comments Lab 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 Reason Comments ext document ER Report Reason Comments Radiology US Specialty Diagnoses / Procedures Referred By Rishi sterling Referred To Contact US IMAGING Diagnoses Abnormal liver function tests Procedures US ABD RIGHT UPPER QUADRANT US ABDOMINAL REAL TIME W/IMAGE LIMITED Gaetano Schneider MD [address] [place] [phone] Us Imaging [facility] Referral ID Status Reason Start Date Expiration Date V isits Requested Visits Authorized [id number] Closed Auto-Generate d Referral 11/11/2022 12/11/2023 1 1 Reason Comments Initial OB Visit Reason Comments Physical Reason Comments ext document ER report Reason Onset Date Comments Care 06/12/2023 Reason Comments US Specialty Diagnoses / Procedures Referred By Contac t Referred To Contact [facility] Diagnoses care, antepartum Procedures NUCHAL TRANSLUCENCY WHI US NUCHAL TRANSLUCENCY 1ST GESTATION Jose Cruz Espitia MD [address] [place] [address] [facility] [address] [place] [address] Referral ID Status Reason Start Date Expiration Date V isits Requested Visits Authorized [id number] Closed Auto-Generate d Referral 05/19/2023 05/18/2024 1 [...] 1 dayNasal congestion x 4 Reason Comments Outreach Director - Other M-Power Schedul ing, LMTCB Specialty Diagnoses / Procedures Referred By Contac t Referred To Contact [facility] Diagnoses 23 weeks gestation of Sinus tachycardia Procedures OBSTETRIC ULTRASOUND WHI US PREG UTERUS AFTER 1ST TRIMEST GESTATION Daisy Hilliard APRN.CNM [address] [place] [address] [facility] [address] [place] [address] Referral ID Status Reason Start Date Expiration Date V isits Requested Visits Authorized [id number] Closed Auto-Generate d Referral 08/17/2023 08/16/2024 5 1 Reason Onset Date Comments Care 10/19/2023 Reason Onset Date Comments Care 11/02/2023 Reason Onset Date Comments Refill Request 11/09/2023 Reason Onset Date Comments Care 11/12/2023 Specialty Diagnoses / Procedures Referred By Contac t Referred To Contact [facility] Diagnoses Fundal height low for dates in third trimester Procedures OBSTETRIC ULTRASOUND WHI US PREG UTERUS AFTER 1ST TRIMEST GESTATION Shruthi Estrada MD [address] [place] [address] [address] Referral ID Status Reason Start Date Expiration Date V isits Requested Visits Authorized [id number] Closed Auto-Generate d Referral 10/07/2023 10/06/2024 5 1 Reason Onset Date Comments Care 11/20/2023 Reason Onset Date Comments Care 11/27/2023 Reason Onset Date Comments Care 12/02/2023 Reason Comments Ob Delivery Note Reason Comments Outside AGRICULTURIST Procedure Reason Comments Blood Pressure Check Post delivery; 12/08-[facility] ER 12/13/23 seeing black spots Reason Comments ER F/U Reason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 regulations: The Federal rules restrict any use of the information to criminally investigate or prosecute any alcohol or drug abuse patient.[facility] HospitalIn the event this information is protected by the Federal Confidentiality of Alcohol and Drug Abuse Patient Records regulations: The Federal rules restrict any use of the information to criminally investigate or prosecute any alcohol or drug abuse patient.[facility] HospitalIn the event this information is protected by the Federal Confidentiality of Alcohol and Drug Abuse Patient Records regulations: The Federal rules restrict any use of the information to criminally investigate or prosecute any alcohol or drug abuse patient.[facility] HospitalIn the event this information is protected by the Federal Confidentiality of Alcohol and Drug Abuse Patient Records regulations: The Federal rules restrict any use of the information to criminally investigate or prosecute any alcohol or drug abuse patient.[facility] HospitalIn the event this information is protected by the Federal Confidentiality of Alcohol and Drug Abuse Patient Records regulations: The Federal rules restrict any use of the information to criminally investigate or prosecute any alcohol or drug abuse patient.[facility] HospitalIn the event this information is protected by the Federal Confidentiality of Alcohol and Drug Abuse Patient Records regulations: The Federal rules restrict any use of the information to criminally investigate or prosecute any alcohol or drug abuse patient.[facility] HospitalIn the event this information is protected by the Federal Confidentiality of Alcohol and Drug Abuse Patient Records regulations: The Federal rules restrict any use of the information to criminally investigate or prosecute any alcohol or drug abuse patient.[facility] HospitalIn the event this information is protected by the Federal Confidentiality of Alcohol and Drug Abuse Patient Records regulations: The Federal rules restrict any use of the information to criminally investigate or prosecute any alcohol or drug abuse patient.[facility] HospitalIn the event this information is protected by the Federal Confidentiality of Alcohol and Drug Abuse Patient Records regulations: The Federal rules restrict any use of the information to criminally investigate or prosecute any alcohol or drug abuse patient.[facility] HospitalIn the event this information is protected by the Federal Confidentiality of Alcohol and Drug Abuse Patient Records regulations: The Federal rules restrict any use of the information to criminally investigate or prosecute any alcohol or drug abuse patient.[facility] HospitalIn the event this information is protected by the Federal Confidentiality of Alcohol and Drug Abuse Patient Records regulations: The Federal rules restrict any use of the information to criminally investigate or prosecute any alcohol or drug abuse patient.[facility] HospitalIn the event this information is protected by the Federal Confidentiality of Alcohol and Drug Abuse Patient Records regulations: The Federal rules restrict any use of the information to criminally investigate or prosecute any alcohol or drug abuse patient.[facility] HospitalIn the event this information is protected by the Federal Confidentiality of Alcohol and Drug Abuse Patient Records regulations: The Federal rules restrict any use of the information to criminally investigate or prosecute any alcohol or drug abuse patient.[facility] HospitalIn the event this information is protected by the Federal Confidentiality of Alcohol and Drug Abuse Patient Records regulations: The Federal rules restrict any use of the information to criminally investigate or prosecute any alcohol or drug abuse patient.[facility] HospitalIn the event this information is protected by the Federal Confidentiality of Alcohol and Drug Abuse Patient Records regulations: The Federal rules restrict any use of the information to criminally investigate or prosecute any alcohol or drug abuse patient.[facility] HospitalIn the event this information is protected by the Federal Confidentiality of Alcohol and Drug Abuse Patient Records regulations: The Federal rules restrict any use of the information to criminally investigate or prosecute any alcohol or drug abuse patient.[facility] HospitalIn the event this information is protected by the Federal Confidentiality of Alcohol and Drug Abuse Patient Records regulations: The Federal rules restrict any use of the information to criminally investigate or prosecute any alcohol or drug abuse patient.[facility] HospitalIn the event this information is protected by the Federal Confidentiality of Alcohol and Drug Abuse Patient Records regulations: The Federal rules restrict any use of the information to criminally investigate or prosecute any alcohol or drug abuse patient.[facility] HospitalIn the event this information is protected by the Federal Confidentiality of Alcohol and Drug Abuse Patient Records regulations: The Federal rules restrict any use of the information to criminally investigate or prosecute any alcohol or drug abuse patient.[facility] HospitalIn the event this information is protected by the Federal Confidentiality of Alcohol and Drug Abuse Patient Records regulations: The Federal rules restrict any use of the information to criminally investigate or prosecute any alcohol or drug abuse patient.[facility] HospitalIn the event this information is protected by the Federal Confidentiality of Alcohol and Drug Abuse Patient Records regulations: The Federal rules restrict any use of the information to criminally investigate or prosecute any alcohol or drug abuse patient.[facility] HospitalIn the event this information is protected by the Federal Confidentiality of Alcohol and Drug Abuse Patient Records regulations: The Federal rules restrict any use of the information to criminally investigate or prosecute any alcohol or drug abuse patient.[facility] HospitalIn the event this information is protected by the Federal Confidentiality of Alcohol and Drug Abuse Patient Records regulations: The Federal rules restrict any use of the information to criminally investigate or prosecute any alcohol or drug abuse patient.[facility] HospitalIn the event this information is protected by the Federal Confidentiality of Alcohol and Drug Abuse Patient Records regulations: The Federal rules restrict any use of the information to criminally investigate or prosecute any alcohol or drug abuse patient.[facility] HospitalIn the event this information is protected by the Federal Confidentiality of Alcohol and Drug Abuse Patient Records regulations: The Federal rules restrict any use of the information to criminally investigate or prosecute any alcohol or drug abuse patient.[facility] HospitalIn the event this information is protected by the Federal Confidentiality of Alcohol and Drug Abuse Patient Records regulations: The Federal rules restrict any use of the information to criminally investigate or prosecute any alcohol or drug abuse patient.[facility] HospitalIn the event this information is protected by the Federal Confidentiality of Alcohol and Drug Abuse Patient Records regulations: The Federal rules restrict any use of the information to criminally investigate or prosecute any alcohol or drug abuse patient.[facility] HospitalIn the event this information is protected by the Federal Confidentiality of Alcohol and Drug Abuse Patient Records regulations: The Federal rules restrict any use of the information to criminally investigate or prosecute any alcohol or drug abuse patient.[facility] HospitalIn the event this information is protected by the Federal Confidentiality of Alcohol and Drug Abuse Patient Records regulations: The Federal rules restrict any use of the information to criminally investigate or prosecute any alcohol or drug abuse patient.[facility] HospitalIn the event this information is protected by the Federal Confidentiality of Alcohol and Drug Abuse Patient Records regulations: The Federal rules restrict any use of the information to criminally investigate or prosecute any alcohol or drug abuse patient.[facility] HospitalIn the event this information is protected by the Federal Confidentiality of Alcohol and Drug Abuse Patient Records regulations: The Federal rules restrict any use of the information to criminally investigate or prosecute any alcohol or drug abuse patient.[facility] HospitalIn the event this information is protected by the Federal Confidentiality of Alcohol and Drug Abuse Patient Records regulations: The Federal rules restrict any use of the information to criminally investigate or prosecute any alcohol or drug abuse patient.[facility] HospitalIn the event this information is protected by the Federal Confidentiality of Alcohol and Drug Abuse Patient Records regulations: The Federal rules restrict any use of the information to criminally investigate or prosecute any alcohol or drug abuse patient.[facility] HospitalIn the event this information is protected by the Federal Confidentiality of Alcohol and Drug Abuse Patient Records regulations: The Federal rules restrict any use of the information to criminally investigate or prosecute any alcohol or drug abuse patient.[facility] HospitalIn the event this information is protected by the Federal Confidentiality of Alcohol and Drug Abuse Patient Records regulations: The Federal rules restrict any use of the information to criminally investigate or prosecute any alcohol or drug abuse patient.[facility] HospitalIn the event this information is protected by the Federal Confidentiality of Alcohol and Drug Abuse Patient Records regulations: The Federal rules restrict any use of the information to criminally investigate or prosecute any alcohol or drug abuse patient.[facility] HospitalIn the event this information is protected by the Federal Confidentiality of Alcohol and Drug Abuse Patient Records regulations: The Federal rules restrict any use of the information to criminally investigate or prosecute any alcohol or drug abuse patient.[facility] HospitalIn the event this information is protected by the Federal Confidentiality of Alcohol and Drug Abuse Patient Records regulations: The Federal rules restrict any use of the information to criminally investigate or prosecute any alcohol or drug abuse patient.[facility] HospitalIn the event this information is protected by the Federal Confidentiality of Alcohol and Drug Abuse Patient Records regulations: The Federal rules restrict any use of the information to criminally investigate or prosecute any alcohol or drug abuse patient.[facility] HospitalIn the event this information is protected by the Federal Confidentiality of Alcohol and Drug Abuse Patient Records regulations: The Federal rules restrict any use of the information to criminally investigate or prosecute any alcohol or drug abuse patient.[facility] HospitalIn the event this information is protected by the Federal Confidentiality of Alcohol and Drug Abuse Patient Records regulations: The Federal rules restrict any use of the information to criminally investigate or prosecute any alcohol or drug abuse patient.[facility] HospitalIn the event this information is protected by the Federal Confidentiality of Alcohol and Drug Abuse Patient Records regulations: The Federal rules restrict any use of the information to criminally investigate or prosecute any alcohol or drug abuse patient.[facility] HospitalIn the event this information is protected by the Federal Confidentiality of Alcohol and Drug Abuse Patient Records regulations: The Federal rules restrict any use of the information to criminally investigate or prosecute any alcohol or drug abuse patient.[facility] HospitalIn the event this information is protected by the Federal Confidentiality of Alcohol and Drug Abuse Patient Records regulations: The Federal rules restrict any use of the information to criminally investigate or prosecute any alcohol or drug abuse patient.[facility] HospitalIn the event this information is protected by the Federal Confidentiality of Alcohol and Drug Abuse Patient Records regulations: The Federal rules restrict any use of the information to criminally investigate or prosecute any alcohol or drug abuse patient.[facility] HospitalIn the event this information is protected by the Federal Confidentiality of Alcohol and Drug Abuse Patient Records regulations: The Federal rules restrict any use of the information to criminally investigate or prosecute any alcohol or drug abuse patient.[facility] HospitalIn the event this information is protected by the Federal Confidentiality of Alcohol and Drug Abuse Patient Records regulations: The Federal rules restrict any use of the information to criminally investigate or prosecute any alcohol or drug abuse patient.[facility] HospitalIn the event this information is protected by the Federal Confidentiality of Alcohol and Drug Abuse Patient Records regulations: The Federal rules restrict any use of the information to criminally investigate or prosecute any alcohol or drug abuse patient.[facility] HospitalIn the event this information is protected by the Federal Confidentiality of Alcohol and Drug Abuse Patient Records regulations: The Federal rules restrict any use of the information to criminally investigate or prosecute any alcohol or drug abuse patient.[facility]In the event this information is protected by the Federal Confidentiality of Alcohol and Drug Abuse Patient Records regulations: The Federal rules restrict any use of the information to criminally investigate or prosecute any alcohol or drug abuse patient.[facility] HospitalIn the event this information is protected by the Federal Confidentiality of Alcohol and Drug Abuse Patient Records regulations: The Federal rules restrict any use of the information to criminally investigate or prosecute any alcohol or drug abuse patient.[facility] HospitalIn the event this information is protected by the Federal Confidentiality of Alcohol and Drug Abuse Patient Records regulations: The Federal rules restrict any use of the information to criminally investigate or prosecute any alcohol or drug abuse patient.[facility] HospitalIn the event this information is protected by the Federal Confidentiality of Alcohol and Drug Abuse Patient Records regulations: The Federal rules restrict any use of the information to criminally investigate or prosecute any alcohol or drug abuse patient.[facility] HospitalIn the event this information is protected by the Federal Confidentiality of Alcohol and Drug Abuse Patient Records regulations: The Federal rules restrict any use of the information to criminally investigate or prosecute any alcohol or drug abuse patient.[facility] HospitalIn the event this information is protected by the Federal Confidentiality of Alcohol and Drug Abuse Patient Records regulations: The Federal rules restrict any use of the information to criminally investigate or prosecute any alcohol or drug abuse patient.[facility] HospitalIn the event this information is protected by the Federal Confidentiality of Alcohol and Drug Abuse Patient Records regulations: The Federal rules restrict any use of the information to criminally investigate or prosecute any alcohol or drug abuse patient.[facility] HospitalIn the event this information is protected by the Federal Confidentiality of Alcohol and Drug Abuse Patient Records regulations: The Federal rules restrict any use of the information to criminally investigate or prosecute any alcohol or drug abuse patient.[facility] HospitalIn the event this information is protected by the Federal Confidentiality of Alcohol and Drug Abuse Patient Records regulations: The Federal rules restrict any use of the information to criminally investigate or prosecute any alcohol or drug abuse patient.[facility] HospitalIn the event this information is protected by the Federal Confidentiality of Alcohol and Drug Abuse Patient Records regulations: The Federal rules restrict any use of the information to criminally investigate or prosecute any alcohol or drug abuse patient.[facility] HospitalIn the event this information is protected by the Federal Confidentiality of Alcohol and Drug Abuse Patient Records regulations: The Federal rules restrict any use of the information to criminally investigate or prosecute any alcohol or drug abuse patient.[facility] HospitalIn the event this information is protected by the Federal Confidentiality of Alcohol and Drug Abuse Patient Records regulations: The Federal rules restrict any use of the information to criminally investigate or prosecute any alcohol or drug abuse patient.[facility] HospitalIn the event this information is protected by the Federal Confidentiality of Alcohol and Drug Abuse Patient Records regulations: The Federal rules restrict any use of the information to criminally investigate or prosecute any alcohol or drug abuse patient.[facility] HospitalIn the event this information is protected by the Federal Confidentiality of Alcohol and Drug Abuse Patient Records regulations: The Federal rules restrict any use of the information to criminally investigate or prosecute any alcohol or drug abuse patient.[facility] HospitalIn the event this information is protected by the Federal Confidentiality of Alcohol and Drug Abuse Patient Records regulations: The Federal rules restrict any use of the information to criminally investigate or prosecute any alcohol or drug abuse patient.[facility] HospitalIn the event this information is protected by the Federal Confidentiality of Alcohol and Drug Abuse Patient Records regulations: The Federal rules restrict any use of the information to criminally investigate or prosecute any alcohol or drug abuse patient.[facility] HospitalIn the event this information is protected by the Federal Confidentiality of Alcohol and Drug Abuse Patient Records regulations: The Federal rules restrict any use of the information to criminally investigate or prosecute any alcohol or drug abuse patient.[facility] HospitalIn the event this information is protected by the Federal Confidentiality of Alcohol and Drug Abuse Patient Records regulations: The Federal rules restrict any use of the information to criminally investigate or prosecute any alcohol or drug abuse patient.[facility] HospitalIn the event this information is protected by the Federal Confidentiality of Alcohol and Drug Abuse Patient Records regulations: The Federal rules restrict any use of the information to criminally investigate or prosecute any alcohol or drug abuse patient.[facility] HospitalIn the event this information is protected by the Federal Confidentiality of Alcohol and Drug Abuse Patient Records regulations: The Federal rules restrict any use of the information to criminally investigate or prosecute any alcohol or drug abuse patient.[facility] HospitalIn the event this information is protected by the Federal Confidentiality of Alcohol and Drug Abuse Patient Records regulations: The Federal rules restrict any use of the information to criminally investigate or prosecute any alcohol or drug abuse patient.[facility] HospitalIn the event this information is protected by the Federal Confidentiality of Alcohol and Drug Abuse Patient Records regulations: The Federal rules restrict any use of the information to criminally investigate or prosecute any alcohol or drug abuse patient.[facility] HospitalIn the event this information is protected by the Federal Confidentiality of Alcohol and Drug Abuse Patient Records regulations: The Federal rules restrict any use of the information to criminally investigate or prosecute any alcohol or drug abuse patient.[facility] HospitalIn the event this information is protected by the Federal Confidentiality of Alcohol and Drug Abuse Patient Records regulations: The Federal rules restrict any use of the information to criminally investigate or prosecute any alcohol or drug abuse patient.[facility] HospitalIn the event this information is protected by the Federal Confidentiality of Alcohol and Drug Abuse Patient Records regulations: The Federal rules restrict any use of the information to criminally investigate or prosecute any alcohol or drug abuse patient.[facility] HospitalIn the event this information is protected by the Federal Confidentiality of Alcohol and Drug Abuse Patient Records regulations: The Federal rules restrict any use of the information to criminally investigate or prosecute any alcohol or drug abuse patient.[facility] HospitalIn the event this information is protected by the Federal Confidentiality of Alcohol and Drug Abuse Patient Records regulations: The Federal rules restrict any use of the information to criminally investigate or prosecute any alcohol or drug abuse patient.[facility] HospitalIn the event this information is protected by the Federal Confidentiality of Alcohol and Drug Abuse Patient Records regulations: The Federal rules restrict any use of the information to criminally investigate or prosecute any alcohol or drug abuse patient.[facility] HospitalIn the event this information is protected by the Federal Confidentiality of Alcohol and Drug Abuse Patient Records regulations: The Federal rules restrict any use of the information to criminally investigate or prosecute any alcohol or drug abuse patient.[facility] HospitalIn the event this information is protected by the Federal Confidentiality of Alcohol and Drug Abuse Patient Records regulations: The Federal rules restrict any use of the information to criminally investigate or prosecute any alcohol or drug abuse patient.[facility] HospitalIn the event this information is protected by the Federal Confidentiality of Alcohol and Drug Abuse Patient Records regulations: The Federal rules restrict any use of the information to criminally investigate or prosecute any alcohol or drug abuse patient.[facility] HospitalIn the event this information is protected by the Federal Confidentiality of Alcohol and Drug Abuse Patient Records regulations: The Federal rules restrict any use of the information to criminally investigate or prosecute any alcohol or drug abuse patient.[facility] HospitalIn the event this information is protected by the Federal Confidentiality of Alcohol and Drug Abuse Patient Records regulations: The Federal rules restrict any use of the information to criminally investigate or prosecute any alcohol or drug abuse patient.[facility] HospitalIn the event this information is protected by the Federal Confidentiality of Alcohol and Drug Abuse Patient Records regulations: The Federal rules restrict any use of the information to criminally investigate or prosecute any alcohol or drug abuse patient.[facility] HospitalIn the event this information is protected by the Federal Confidentiality of Alcohol and Drug Abuse Patient Records regulations: The Federal rules restrict any use of the information to criminally investigate or prosecute any alcohol or drug abuse patient.[facility] HospitalIn the event this information is protected by the Federal Confidentiality of Alcohol and Drug Abuse Patient Records regulations: The Federal rules restrict any use of the information to criminally investigate or prosecute any alcohol or drug abuse patient.[facility] HospitalIn the event this information is protected by the Federal Confidentiality of Alcohol and Drug Abuse Patient Records regulations: The Federal rules restrict any use of the information to criminally investigate or prosecute any alcohol or drug abuse patient.[facility] HospitalIn the event this information is protected by the Federal Confidentiality of Alcohol and Drug Abuse Patient Records regulations: The Federal rules restrict any use of the information to criminally investigate or prosecute any alcohol or drug abuse patient.[facility] HospitalIn the event this information is protected by the Federal Confidentiality of Alcohol and Drug Abuse Patient Records regulations: The Federal rules restrict any use of the information to criminally investigate or prosecute any alcohol or drug abuse patient.[facility] HospitalIn the event this information is protected by the Federal Confidentiality of Alcohol and Drug Abuse Patient Records regulations: The Federal rules restrict any use of the information to criminally investigate or prosecute any alcohol or drug abuse patient.[facility] HospitalIn the event this information is protected by the Federal Confidentiality of Alcohol and Drug Abuse Patient Records regulations: The Federal rules restrict any use of the information to criminally investigate or prosecute any alcohol or drug abuse patient.[facility] HospitalIn the event this information is protected by the Federal Confidentiality of Alcohol and Drug Abuse Patient Records regulations: The Federal rules restrict any use of the information to criminally investigate or prosecute any alcohol or drug abuse patient.[facility] HospitalIn the event this information is protected by the Federal Confidentiality of Alcohol and Drug Abuse Patient Records regulations: The Federal rules restrict any use of the information to criminally investigate or prosecute any alcohol or drug abuse patient.[facility] HospitalIn the event this information is protected by the Federal Confidentiality of Alcohol and Drug Abuse Patient Records regulations: The Federal rules restrict any use of the information to criminally investigate or prosecute any alcohol or drug abuse patient.[facility] HospitalIn the event this information is protected by the Federal Confidentiality of Alcohol and Drug Abuse Patient Records regulations: The Federal rules restrict any use of the information to criminally investigate or prosecute any alcohol or drug abuse patient.[facility] HospitalIn the event this information is protected by the Federal Confidentiality of Alcohol and Drug Abuse Patient Records regulations: The Federal rules restrict any use of the information to criminally investigate or prosecute any alcohol or drug abuse patient.[facility] HospitalIn the event this information is protected by the Federal Confidentiality of Alcohol and Drug Abuse Patient Records regulations: The Federal rules restrict any use of the information to criminally investigate or prosecute any alcohol or drug abuse patient.[facility] HospitalIn the event this information is protected by the Federal Confidentiality of Alcohol and Drug Abuse Patient Records regulations: The Federal rules restrict any use of the information to criminally investigate or prosecute any alcohol or drug abuse patient.[facility] HospitalIn the event this information is protected by the Federal Confidentiality of Alcohol and Drug Abuse Patient Records regulations: The Federal rules restrict any use of the information to criminally investigate or prosecute any alcohol or drug abuse patient.[facility] HospitalIn the event this information is protected by the Federal Confidentiality of Alcohol and Drug Abuse Patient Records regulations: The Federal rules restrict any use of the information to criminally investigate or prosecute any alcohol or drug abuse patient.[facility] ClinicIn the event this information is protected by the Federal Confidentiality of Alcohol and Drug Abuse Patient Records regulations: The Federal rules restrict any use of the information to criminally investigate or prosecute any alcohol or drug abuse patient.[facility] HospitalIn the event this information is protected by the Federal Confidentiality of Alcohol and Drug Abuse Patient Records regulations: The Federal rules restrict any use of the information to criminally investigate or prosecute any alcohol or drug abuse patient.[facility] HospitalIn the event this information is protected by the Federal Confidentiality of Alcohol and Drug Abuse Patient Records regulations: The Federal rules restrict any use of the information to criminally investigate or prosecute any alcohol or drug abuse patient.[facility] HospitalIn the event this information is protected by the Federal Confidentiality of Alcohol and Drug Abuse Patient Records regulations: The Federal rules restrict any use of the information to criminally investigate or prosecute any alcohol or drug abuse patient.[facility] HospitalIn the event this information is protected by the Federal Confidentiality of Alcohol and Drug Abuse Patient Records regulations: The Federal rules restrict any use of the information to criminally investigate or prosecute any alcohol or drug abuse patient.[facility] HospitalIn the event this information is protected by the Federal Confidentiality of Alcohol and Drug Abuse Patient Records regulations: The Federal rules restrict any use of the information to criminally investigate or prosecute any alcohol or drug abuse patient.[facility] HospitalIn the event this information is protected by the Federal Confidentiality of Alcohol and Drug Abuse Patient Records regulations: The Federal rules restrict any use of the information to criminally investigate or prosecute any alcohol or drug abuse patient.[facility] HospitalIn the event this information is protected by the Federal Confidentiality of Alcohol and Drug Abuse Patient Records regulations: The Federal rules restrict any use of the information to criminally investigate or prosecute any alcohol or drug abuse patient.[facility] HospitalIn the event this information is protected by the Federal Confidentiality of Alcohol and Drug Abuse Patient Records regulations: The Federal rules restrict any use of the information to criminally investigate or prosecute any alcohol or drug abuse patient.[facility] HospitalIn the event this information is protected by the Federal Confidentiality of Alcohol and Drug Abuse Patient Records regulations: The Federal rules restrict any use of the information to criminally investigate or prosecute any alcohol or drug abuse patient.[facility] HospitalIn the event this information is protected by the Federal Confidentiality of Alcohol and Drug Abuse Patient Records regulations: The Federal rules restrict any use of the information to criminally investigate or prosecute any alcohol or drug abuse patient.[facility] HospitalIn the event this information is protected by the Federal Confidentiality of Alcohol and Drug Abuse Patient Records regulations: The Federal rules restrict any use of the information to criminally investigate or prosecute any alcohol or drug abuse patient.[facility] HospitalIn the event this information is protected by the Federal Confidentiality of Alcohol and Drug Abuse Patient Records regulations: The Federal rules restrict any use of the information to criminally investigate or prosecute any alcohol or drug abuse patient.[facility] HospitalIn the event this information is protected by the Federal Confidentiality of Alcohol and Drug Abuse Patient Records regulations: The Federal rules restrict any use of the information to criminally investigate or prosecute any alcohol or drug abuse patient.[facility] HospitalIn the event this information is protected by the Federal Confidentiality of Alcohol and Drug Abuse Patient Records regulations: The Federal rules restrict any use of the information to criminally investigate or prosecute any alcohol or drug abuse patient.[facility] HospitalIn the event this information is protected by the Federal Confidentiality of Alcohol and Drug Abuse Patient Records regulations: The Federal rules restrict any use of the information to criminally investigate or prosecute any alcohol or drug abuse patient.[facility] HospitalIn the event this information is protected by the Federal Confidentiality of Alcohol and Drug Abuse Patient Records regulations: The Federal rules restrict any use of the information to criminally investigate or prosecute any alcohol or drug abuse patient.[facility] HospitalIn the event this information is protected by the Federal Confidentiality of Alcohol and Drug Abuse Patient Records regulations: The Federal rules restrict any use of the information to criminally investigate or prosecute any alcohol or drug abuse patient.[facility] HospitalIn the event this information is protected by the Federal Confidentiality of Alcohol and Drug Abuse Patient Records regulations: The Federal rules restrict any use of the information to criminally investigate or prosecute any alcohol or drug abuse patient.[facility] HospitalIn the event this information is protected by the Federal Confidentiality of Alcohol and Drug Abuse Patient Records regulations: The Federal rules restrict any use of the information to criminally investigate or prosecute any alcohol or drug abuse patient.[facility] HospitalIn the event this information is protected by the Federal Confidentiality of Alcohol and Drug Abuse Patient Records regulations: The Federal rules restrict any use of the information to criminally investigate or prosecute any alcohol or drug abuse patient.[facility] HospitalIn the event this information is protected by the Federal Confidentiality of Alcohol and Drug Abuse Patient Records regulations: The Federal rules restrict any use of the information to criminally investigate or prosecute any alcohol or drug abuse patient.[facility] HospitalIn the event this information is protected by the Federal Confidentiality of Alcohol and Drug Abuse Patient Records regulations: The Federal rules restrict any use of the information to criminally investigate or prosecute any alcohol or drug abuse patient.[facility] HospitalIn the event this information is protected by the Federal Confidentiality of Alcohol and Drug Abuse Patient Records regulations: The Federal rules restrict any use of the information to criminally investigate or prosecute any alcohol or drug abuse patient.[facility] HospitalIn the event this information is protected by the Federal Confidentiality of Alcohol and Drug Abuse Patient Records regulations: The Federal rules restrict any use of the information to criminally investigate or prosecute any alcohol or drug abuse patient.[facility] HospitalIn the event this information is protected by the Federal Confidentiality of Alcohol and Drug Abuse Patient Records regulations: The Federal rules restrict any use of the information to criminally investigate or prosecute any alcohol or drug abuse patient.[facility] HospitalIn the event this information is protected by the Federal Confidentiality of Alcohol and Drug Abuse Patient Records regulations: The Federal rules restrict any use of the information to criminally investigate or prosecute any alcohol or drug abuse patient.[facility] HospitalIn the event this information is protected by the Federal Confidentiality of Alcohol and Drug Abuse Patient Records regulations: The Federal rules restrict any use of the information to criminally investigate or prosecute any alcohol or drug abuse patient.[facility] HospitalIn the event this information is protected by the Federal Confidentiality of Alcohol and Drug Abuse Patient Records regulations: The Federal rules restrict any use of the information to criminally investigate or prosecute any alcohol or drug abuse patient.[facility] HospitalIn the event this information is protected by the Federal Confidentiality of Alcohol and Drug Abuse Patient Records regulations: The Federal rules restrict any use of the information to criminally investigate or prosecute any alcohol or drug abuse patient.[facility] HospitalIn the event this information is protected by the Federal Confidentiality of Alcohol and Drug Abuse Patient Records regulations: The Federal rules restrict any use of the information to criminally investigate or prosecute any alcohol or drug abuse patient.[facility] HospitalIn the event this information is protected by the Federal Confidentiality of Alcohol and Drug Abuse Patient Records regulations: The Federal rules restrict any use of the information to criminally investigate or prosecute any alcohol or drug abuse patient.[facility] HospitalIn the event this information is protected by the Federal Confidentiality of Alcohol and Drug Abuse Patient Records regulations: The Federal rules restrict any use of the information to criminally investigate or prosecute any alcohol or drug abuse patient.[facility] HospitalIn the event this information is protected by the Federal Confidentiality of Alcohol and Drug Abuse Patient Records regulations: The Federal rules restrict any use of the information to criminally investigate or prosecute any alcohol or drug abuse patient.[facility] HospitalIn the event this information is protected by the Federal Confidentiality of Alcohol and Drug Abuse Patient Records regulations: The Federal rules restrict any use of the information to criminally investigate or prosecute any alcohol or drug abuse patient.[facility] HospitalIn the event this information is protected by the Federal Confidentiality of Alcohol and Drug Abuse Patient Records regulations: The Federal rules restrict any use of the information to criminally investigate or prosecute any alcohol or drug abuse patient.[facility] HospitalIn the event this information is protected by the Federal Confidentiality of Alcohol and Drug Abuse Patient Records regulations: The Federal rules restrict any use of the information to criminally investigate or prosecute any alcohol or drug abuse patient.[facility] HospitalIn the event this information is protected by the Federal Confidentiality of Alcohol and Drug Abuse Patient Records regulations: The Federal rules restrict any use of the information to criminally investigate or prosecute any alcohol or drug abuse patient.[facility] HospitalIn the event this information is protected by the Federal Confidentiality of Alcohol and Drug Abuse Patient Records regulations: The Federal rules restrict any use of the information to criminally investigate or prosecute any alcohol or drug abuse patient.[facility] HospitalIn the event this information is protected by the Federal Confidentiality of Alcohol and Drug Abuse Patient Records regulations: The Federal rules restrict any use of the information to criminally investigate or prosecute any alcohol or drug abuse patient.[facility] HospitalIn the event this information is protected by the Federal Confidentiality of Alcohol and Drug Abuse Patient Records regulations: The Federal rules restrict any use of the information to criminally investigate or prosecute any alcohol or drug abuse patient.[facility] HospitalIn the event this information is protected by the Federal Confidentiality of Alcohol and Drug Abuse Patient Records regulations: The Federal rules restrict any use of the information to criminally investigate or prosecute any alcohol or drug abuse patient.[facility] HospitalIn the event this information is protected by the Federal Confidentiality of Alcohol and Drug Abuse Patient Records regulations: The Federal rules restrict any use of the information to criminally investigate or prosecute any alcohol or drug abuse patient.[facility] HospitalIn the event this information is protected by the Federal Confidentiality of Alcohol and Drug Abuse Patient Records regulations: The Federal rules restrict any use of the information to criminally investigate or prosecute any alcohol or drug abuse patient.[facility] HospitalIn the event this information is protected by the Federal Confidentiality of Alcohol and Drug Abuse Patient Records regulations: The Federal rules restrict any use of the information to criminally investigate or prosecute any alcohol or drug abuse patient.[facility] HospitalIn the event this information is protected by the Federal Confidentiality of Alcohol and Drug Abuse Patient Records regulations: The Federal rules restrict any use of the information to criminally investigate or prosecute any alcohol or drug abuse patient.[facility] Care Teams (unrecognized sec tion and content) Asset Administrator Relationship Specialty Start Date End Date Wu Herrera MD [address] [place] [address] PCP - General Family Practice 07/31/20 Asset Administrator Relationship Specialty Start Date End Date Wu Herrera MD [address] [place] [address] PCP - General Family Practice 07/31/20 Asset Administrator Relationship Specialty Start Date End Date Wu Herrera MD [facility] [place] [address] PCP - General Family Practice 07/31/20 Asset Administrator Relationship Specialty Start Date End Date Wu Herrera MD [facility] [place] [address] PCP - General Family Practice 07/31/20 Asset Administrator Relationship Specialty Start Date End Date Wu Herrera MD [facility] [place] [address] PCP - General Family Practice 07/31/20 Asset Administrator Relationship Specialty Start Date End Date Wu Herrera MD [facility] [place] [address] PCP - General Family Practice 07/31/20 Asset Administrator Relationship Specialty Start Date End Date Wu Herrera MD [facility] [place] [address] PCP - General Family Medicine 07/31/20 Asset Administrator Relationship Specialty Start Date End Date Wu Herrera MD [facility] [place] [address] PCP - General Family Medicine 07/31/20 Asset Administrator Relationship Specialty Start Date End Date Wu Herrera MD [facility] [place] [address] PCP - General Family Medicine 07/31/20 Asset Administrator Relationship Specialty Start Date End Date Wu Herrera MD [address] [place] [address] PCP - General Family Medicine 07/31/20 Asset Administrator Relationship Specialty Start Date End Date Wu Herrera MD [address] [place] [address] PCP - General Family Medicine 07/31/20 Asset Administrator Relationship Specialty Start Date End Date Wu Herrera MD [facility] [place] [address] PCP - General Family Medicine 07/31/20 Asset Administrator Relationship Specialty Start Date End Date Wu Herrera MD [facility] [place] [address] PCP - General Family Medicine 07/31/20 Asset Administrator Relationship Specialty Start Date End Date Wu Herrera MD [facility] [place] [address] PCP - General Family Medicine 07/31/20 Asset Administrator Relationship Specialty Start Date End Date Wu Herrera MD [facility] [place] [address] PCP - General Family Medicine 07/31/20 Asset Administrator Relationship Specialty Start Date End Date Wu Herrera MD [address] [place] [address] PCP - General Family Medicine 07/31/20 Asset Administrator Relationship Specialty Start Date End Date Wu Herrera MD [facility] [place] [address] PCP - General Family Medicine 07/31/20 Asset Administrator Relationship Specialty Start Date End Date Wu Herrera MD [facility] [place] [address] PCP - General Family Medicine 07/31/20 Asset Administrator Relationship Specialty Start Date End Date Wu Herrera MD [address] [place] [address] PCP - General Family Medicine 07/31/20 Asset Administrator Relationship Specialty Start Date End Date uW Herrera MD [address] [place] [address] PCP - General Family Medicine 07/31/20 Asset Administrator Relationship Specialty Start Date End Date Wu Herrera MD [address] [place] [address] PCP - General Family Medicine 07/31/20 Asset Administrator Relationship Specialty Start Date End Date Wu Herrera MD [address] [place] [address] PCP - General Family Medicine 07/31/20 Asset Administrator Relationship Specialty Start Date End Date Wu Herrera MD [address] [place] [address] PCP - General Family Medicine 07/31/20 Asset Administrator Relationship Specialty Start Date End Date Wu Herrera MD [address] [place] [address] PCP - General Family Medicine 07/31/20 Asset Administrator Relationship Specialty Start Date End Date Wu Herrera MD [address] [place] [address] PCP - General Family Medicine 07/31/20 Asset Administrator Relationship Specialty Start Date End Date Wu Herrera MD [address] [place] [address] PCP - General Family Medicine 07/31/20 Asset Administrator Relationship Specialty Start Date End Date Wu Herrera MD [address] [place] [address] PCP - General Family Medicine 07/31/20 Asset Administrator Relationship Specialty Start Date End Date Wu Herrera MD [address] [place] [address] PCP - General Family Medicine 07/31/20 Asset Administrator Relationship Specialty Start Date End Date Wu Herrera MD [address] [place] [address] PCP - General Family Medicine 07/31/20 Asset Administrator Relationship Specialty Start Date End Date Wu Herrera MD [address] [place] [address] PCP - General Family Medicine 07/31/20 Asset Administrator Relationship Specialty Start Date End Date Wu Herrera MD [address] [place] [address] PCP - General Family Medicine 07/31/20 Asset Administrator Relationship Specialty Start Date End Date Wu Herrera MD [address] [place] [address] PCP - General Family Medicine 07/31/20 Asset Administrator Relationship Specialty Start Date End Date Wu Herrera MD [address] [place] [address] PCP - General Family Medicine 07/31/20 Asset Administrator Relationship Specialty Start Date End Date Wu Herrera MD [address] [place] [address] PCP - General Family Medicine 07/31/20 Asset Administrator Relationship Specialty Start Date End Date Wu Herrera MD [address] [place] [address] PCP - General Family Medicine 07/31/20 Asset Administrator Relationship Specialty Start Date End Date Wu Herrera MD [address] [place] [address] PCP - General Family Medicine 07/31/20 Asset Administrator Relationship Specialty Start Date End Date Wu Herrera MD [address] [place] [address] PCP - General Family Medicine 07/31/20 Asset Administrator Relationship Specialty Start Date End Date Wu Herrera MD [address] [place] [address] PCP - General Family Medicine 07/31/20 Asset Administrator Relationship Specialty Start Date End Date Wu Herrera MD [address] [place] [address] PCP - General Family Medicine 07/31/20 Asset Administrator Relationship Specialty Start Date End Date Wu Herrera MD [address] [place] [address] PCP - General Family Medicine 07/31/20 Asset Administrator Relationship Specialty Start Date End Date Wu Herrera MD [address] [place] [address] PCP - General Family Medicine 07/31/20 Asset Administrator Relationship Specialty Start Date End Date Wu Herrera MD [address] [place] [address] PCP - General Family Medicine 07/31/20 Asset Administrator Relationship Specialty Start Date End Date Wu Herrera MD [address] [place] [address] PCP - General Family Medicine 07/31/20 Asset Administrator Relationship Specialty Start Date End Date Wu Herrera MD [address] [place] [address] PCP - General Family Medicine 07/31/20 Asset Administrator Relationship Specialty Start Date End Date Wu Herrera MD [address] [place] [address] PCP - General Family Medicine 07/31/20 Asset Administrator Relationship Specialty Start Date End Date Wu Herrera MD [address] [place] [address] PCP - General Family Medicine 07/31/20 Asset Administrator Relationship Specialty Start Date End Date Wu Herrera MD [address] [place] [address] PCP - General Family Medicine 07/31/20 Asset Administrator Relationship Specialty Start Date End Date Wu Herrera MD [address] [place] [address] PCP - General Family Medicine 07/31/20 Asset Administrator Relationship Specialty Start Date End Date Wu Herrera MD [address] [place] [address] PCP - General Family Medicine 07/31/20 Asset Administrator Relationship Specialty Start Date End Date Wu Herrera MD [address] [place] [address] PCP - General Family Medicine 07/31/20 Asset Administrator Relationship Specialty Start Date End Date Wu Herrrea MD [address] [place] [address] PCP - General Family Medicine 07/31/20 Asset Administrator Relationship Specialty Start Date End Date Wu Herrera MD [address] [place] [address] PCP - General Family Medicine 07/31/20 Asset Administrator Relationship Specialty Start Date End Date Wu Herrera MD [address] [place] [address] PCP - General Family Medicine 07/31/20 Asset Administrator Relationship Specialty Start Date End Date Wu Herrera MD [address] [place] [address] PCP - General Family Medicine 07/31/20 Asset Administrator Relationship Specialty Start Date End Date Wu Herrera MD [address] [place] [address] PCP - General Family Medicine 07/31/20 Asset Administrator Relationship Specialty Start Date End Date Wu Herrera MD [address] [place] [address] PCP - General Family Medicine 07/31/20 Asset Administrator Relationship Specialty Start Date End Date Wu Hrerera MD [address] [place] [address] PCP - General Family Medicine 07/31/20 Asset Administrator Relationship Specialty Start Date End Date Wu Herrera MD [address] [place] [address] PCP - General Family Medicine 07/31/20 Asset Administrator Relationship Specialty Start Date End Date Wu Herrera MD [address] [place] [address] PCP - General Family Medicine 07/31/20 Asset Administrator Relationship Specialty Start Date End Date Wu Herrera MD [address] [place] [address] PCP - General Family Medicine 07/31/20 Asset Administrator Relationship Specialty Start Date End Date Wu Herrera MD [address] [place] [address] PCP - General Family Medicine 07/31/20 Asset Administrator Relationship Specialty Start Date End Date Wu Herrera MD [address] [place] [address] PCP - General Family Medicine 07/31/20 Asset Administrator Relationship Specialty Start Date End Date Wu Herrera MD [address] [place] [address] PCP - General Family Medicine 07/31/20 Asset Administrator Relationship Specialty Start Date End Date Wu Herrera MD [address] [place] [address] PCP - General Family Medicine 07/31/20 Asset Administrator Relationship Specialty Start Date End Date uW Herrera MD [address] [place] [address] PCP - General Family Medicine 07/31/20 Asset Administrator Relationship Specialty Start Date End Date Wu Herrera MD [address] [place] [address] PCP - General Family Medicine 07/31/20 Asset Administrator Relationship Specialty Start Date End Date Wu Herrera MD [address] [place] [address] PCP - General Family Medicine 07/31/20 Asset Administrator Relationship Specialty Start Date End Date Wu Herrera MD [address] [place] [address] PCP - General Family Medicine 07/31/20 Asset Administrator Relationship Specialty Start Date End Date Wu Herrera MD [address] [place] [address] PCP - General Family Medicine 07/31/20 Asset Administrator Relationship Specialty Start Date End Date Wu Herrera MD [address] [place] [address] PCP - General Family Medicine 07/31/20 Asset Administrator Relationship Specialty Start Date End Date Wu Herrera MD [address] [place] [address] PCP - General Family Medicine 07/31/20 Asset Administrator Relationship Specialty Start Date End Date Wu Herrera MD [address] [place] [address] PCP - General Family Medicine 07/31/20 Asset Administrator Relationship Specialty Start Date End Date Wu Herrera MD [address] [place] [address] PCP - General Family Medicine 07/31/20 Asset Administrator Relationship Specialty Start Date End Date Wu Herrera MD [address] [place] [address] PCP - General Family Medicine 07/31/20 Asset Administrator Relationship Specialty Start Date End Date Wu Herrera MD [address] [place] [address] PCP - General Family Medicine 07/31/20 Asset Administrator Relationship Specialty Start Date End Date Wu Herrera MD [address] [place] [address] PCP - General Family Medicine 07/31/20 Asset Administrator Relationship Specialty Start Date End Date uW Herrera MD [address] [place] [address] PCP - General Family Medicine 07/31/20 Asset Administrator Relationship Specialty Start Date End Date Generic Provider, No [place] [address] PCP - General Placement Officer 05/25/24 Asset Administrator Relationship Specialty Start Date End Date Wu Herrera MD [address] [place] [address] PCP - General Family Medicine 07/31/20 Asset Administrator Relationship Specialty Start Date End Date Wu Herrera MD [address] [place] [address] PCP - General Family Medicine 07/31/20 Asset Administrator Relationship Specialty Start Date End Date Wu Herrera MD 0 [place] [address] PCP - General Family Medicine 07/31/20 Asset Administrator Relationship Specialty Start Date End Date Wu Herrera MD [address] [place] [address] PCP - General Family Medicine 07/31/20 Frankie Varela APRN.ASSISTANT PROFESSOR OF SPANISH [address] [facility] [place] [address] [employer] Production Manager Family Medicine 06/18/24 Dee Roca PA-C [address] [place] [address] [employer]indery Production Manager Family Medicine 06/18/24 Asset Administrator Relationship Specialty Start Date End Date Wu Herrera MD [address] [place] [address] PCP - General Family Medicine 07/31/20 Frankie Varela, YOANA.ASSISTANT PROFESSOR OF SPANISH [address] [facility] [place] [address] [employer]y Production Manager Family Medicine 06/18/24 Dee Roca PA-C [address] [place] [address] Bindery Production Manager Family Medicine 06/18/24 Asset Administrator Relationship Specialty Start Date End Date Wu Herrera MD [address] [place] [address] PCP - General Family Medicine 07/31/20 Frankie Varela APRN.ASSISTANT PROFESSOR OF SPANISH [address] [facility] [place] [address] Bindery Production Manager Family Medicine 06/18/24 Dee Roca PA-C [address] [place] [address] [employer]indery Production Manager Family Medicine 06/18/24 Asset Administrator Relationship Specialty Start Date End Date Wu Herrera MD [address] [place] [address] PCP - General Family Medicine 07/31/20 Frankie Varela, YOANA.ASSISTANT PROFESSOR OF SPANISH [address] [place] [address] [employer]indery Production Manager Family Medicine 06/18/24 Dee Roca PA-C [address] [place] [address] Bindery Production Manager Family Medicine 06/18/24 Asset Administrator Relationship Specialty Start Date End Date Wu Herrera MD [address] [place] [address] PCP - General Family Medicine 07/31/20 Frankie Varela APRN.ASSISTANT PROFESSOR OF SPANISH [address] [place] [address] Bindery Production Manager Family Medicine 06/18/24 Dee Roca PA-C [address] [place] [address] Bindery Production Manager Family Medicine 06/18/24 Asset Administrator Relationship Specialty Start Date End Date Wu Herrera MD [address] [place] [address] PCP - General Family Medicine 07/31/20 Frankie Varela, SCENERY BUILDER.ASSISTANT PROFESSOR OF SPANISH [address] [place] [address] Bindery Production Manager Family [facility] 06/18/24 Dee Roca PA-C [address] [place] [address] [facility] 06/18/24 Asset Administrator Relationship Specialty Start Date End Date Wu Herrera MD [address] [place] [address] PCP - General Family Medicine 07/31/20 Frankie Varela APRN.ASSISTANT PROFESSOR OF SPANISH [address] [place] [address] [facility] 06/18/24 Dee Roca PA-C [address] [place] [address] [facility] 06/18/24 Asset Administrator Relationship Specialty Start Date End Date Wu Herrera MD [address] [place] [address] PCP - General Family Medicine 07/31/20 Frankie Varela APRN.ASSISTANT PROFESSOR OF SPANISH [address] [place] [address] [facility] Family Medicine 06/18/24 Dee Roca PA-C [address] [place] [address] [facility] Medicine 06/18/24 Asset Administrator Relationship Specialty Start Date End Date Wu Herrera MD [address] [place] [address] PCP - General Family Medicine 07/31/20 Frankie Varela APRN.ASSISTANT PROFESSOR OF SPANISH [address] [place] [address] B[employer]y Production Manager Family Medicine 06/18/24 Dee Roca PA-C [address] [place] [address] Bindery Production Manager Family Medicine 06/18/24 Asset Administrator Relationship Specialty Start Date End Date Wu Herrera MD [address] [place] [address] PCP - General Family Medicine 07/31/20 Frankie Varela APRN.ASSISTANT PROFESSOR OF SPANISH [address] [place] [address] Bindery Production Manager Family Medicine 06/18/24 Dee Roca PA-C [address] [place] [address] Bindery Production Manager Family Medicine 06/18/24 Asset Administrator Relationship Specialty Start Date End Date Wu Herrera MD [address] [place] [address] PCP - General Family Medicine 07/31/20 Frankie Varela, SCENERY BUILDER.ASSISTANT PROFESSOR OF SPANISH [address] [place] [address] Bindery Production Manager Family Medicine 06/18/24 Dee Roca PA-C [address] [place] [address] Bindery Production Manager Family Medicine 06/18/24 Asset Administrator Relationship Specialty Start Date End Date Wu Herrera MD [address] [place] [address] PCP - General Family Medicine 07/31/20 Frankie Varela APRN.ASSISTANT PROFESSOR OF SPANISH [address] [place] [address] B[employer]y Production Manager Family Medicine 06/18/24 Dee Roca PA-C [address] [place] [address] Bindery Production Manager Family [facility] 06/18/24 Asset Administrator Relationship Specialty Start Date End Date Wu Herrera MD [address] [place] [address] PCP - General Family Medicine 07/31/20 Frankie Varela, YOANA.ASSISTANT PROFESSOR OF SPANISH [address] [place] [address] Bindery Production Manager Family Medicine 06/18/24 Dee Roca PA-C [address] [place] [address] [facility] 06/18/24 Asset Administrator Relationship Specialty Start Date End Date Wu Herrera MD [address] [place] [address] PCP - General Family Medicine 07/31/20 Frankie Varela, SCENERY BUILDER.ASSISTANT PROFESSOR OF SPANISH [address] [place] [address] Bindery Production Manager Family Medicine 06/18/24 Dee Roca PA-C [address] [place] [address] Bindery Production Manager Family Medicine 06/18/24 Asset Administrator Relationship Specialty Start Date End Date Wu Herrera MD [address] [place] [address] PCP - General Family Medicine 07/31/20 Frankie Varela, YOANA.ASSISTANT PROFESSOR OF SPANISH [address] [facility] [place] [address] Bindery Production Manager Family Medicine 06/18/24 Dee Roca PA-C [address] [place] [address] Bindery Production Manager Family Medicine 06/18/24 Asset Administrator Relationship Specialty Start Date End Date Wu Herrera MD [address] [place] [address] PCP - General Family Medicine 07/31/20 Frankie Vaerla, SCENERY BUILDER.ASSISTANT PROFESSOR OF SPANISH [address] [facility] [place] [address] Bindery Production Manager Family Medicine 06/18/24 Dee Roca PA-C [address] [place] [address] Bindery Production Manager Family Medicine 06/18/24 Asset Administrator Relationship Specialty Start Date End Date Wu Herrera MD [address] [place] [address] PCP - General Family Medicine 07/31/20 Frankie Varela, SCENERY BUILDER.ASSISTANT PROFESSOR OF SPANISH [address] [facility] [place] [address] Bindery Production Manager Family Medicine 06/18/24 Dee Roca PA-C [address] [place] [address] Bindery Production Manager Family Medicine 06/18/24 Asset Administrator Relationship Specialty Start Date End Date Wu Herrera MD [address] [place] [address] PCP - General Family Medicine 07/31/20 Frankie Varela APRN.ASSISTANT PROFESSOR OF SPANISH [address] [place] [address] Bindery Production Manager Family Medicine 06/18/24 Dee Roca PA-C [address] [place] [address] Bindery Production Manager Family Medicine 06/18/24 Asset Administrator Relationship Specialty Start Date End Date Wu Herrera MD [address] [place] [address] PCP - General Family Medicine 07/31/20 Frankie Varela APRN.ASSISTANT PROFESSOR OF SPANISH [address] [place] [address] Bindery Production Manager Family Medicine 06/18/24 Dee Roca PA-C [address] [place] [address] Bindery Production Manager Family Medicine 06/18/24 Asset Administrator Relationship Specialty Start Date End Date Wu Herrera MD [address] [place] [address] PCP - General Family Medicine 07/31/20 Frankie Varela, YOANA.ASSISTANT PROFESSOR OF SPANISH [address] [place] [address] Bindery Production Manager Family Medicine 06/18/24 Dee Roca PA-C [address] [place] [address] Bindery Production Manager Family Medicine 06/18/24 Asset Administrator Relationship Specialty Start Date End Date Wu Herrera MD [address] [place] [address] PCP - General Family Medicine 07/31/20 Frankie Varela APRN.ASSISTANT PROFESSOR OF SPANISH [address] [place] [address] Bindery Production Manager Family Medicine 06/18/24 Dee Roca PA-C [address] [place] [address] Bindery Production Manager Family Medicine 06/18/24 Asset Administrator Relationship Specialty Start Date End Date Wu Herrera MD [address] [place] [address] PCP - General Family Medicine 07/31/20 Frankie Varela, SCENERY BUILDER.ASSISTANT PROFESSOR OF SPANISH [address] [place] [address] Bindery Production Manager Family Medicine 06/18/24 Dee Roca PA-C [address] [place] [address] Bindery Production Manager Family Medicine 06/18/24 Asset Administrator Relationship Specialty Start Date End Date Wu Herrera MD [address] [place] [address] PCP - General Family Medicine 07/31/20 Frankie Varela, SCENERY BUILDER.ASSISTANT PROFESSOR OF SPANISH [address] [place] [address] Bindery Production Manager Family Medicine 06/18/24 Dee Roca PA-C [address] [place] [address] Bindery Production Manager Family Medicine 06/18/24 Asset Administrator Relationship Specialty Start Date End Date Wu Herrera MD [address] [place] [address] PCP - General Family Medicine 07/31/20 Frankie Varela, YOANA.ASSISTANT PROFESSOR OF SPANISH [address] [place] [address] Bindery Production Manager Family Medicine 06/18/24 Dee Roca PA-C [address] [place] [address] Bindery Production Manager Family Medicine 06/18/24 Asset Administrator Relationship Specialty Start Date End Date Wu Herrera MD [address] [place] [address] PCP - General Family Medicine 07/31/20 Frankie Varela, YOANA.ASSISTANT PROFESSOR OF SPANISH [address] [place] [address] Bindery Production Manager Family Medicine 06/18/24 Dee Roca PA-C [address] [place] [address] Bindery Production Manager Family Medicine 06/18/24 Asset Administrator Relationship Specialty Start Date End Date Wu Herrera MD [address] [place] [address] PCP - General Family Medicine 07/31/20 Frankie Varela APRN.ASSISTANT PROFESSOR OF SPANISH [address] [place], [place] [address] [phone] [facility] 06/18/24 11/27/24 Dee Roca PA-C [address] [place], [place] 153992 [phone] [facility] 06/18/24 Asset Administrator Relationship Specialty Start Date End Date Wu Herrera MD [address] [place] [address] PCP - General Family Medicine 07/31/20 Dee Roca PA-C [address] [place] [address] [facility] 06/18/24 Asset Administrator Relationship Specialty Start Date End Date Wu Herrera MD [address] [place] [address] PCP - General Family Medicine 07/31/20 Frankie Varela APRN.ASSISTANT PROFESSOR OF SPANISH [address] [place] [address] [facility] 06/18/24 11/27/24 Dee Roca PA-C [address] [place] [address] [facility] 06/18/24 12/11/24 Frankie Varela APRN.ASSISTANT PROFESSOR OF SPANISH [address] [place] [address] [facility] Production [facility] 12/12/24 Dee Roca PA-C [address] [place] [address] Bindery Production Manager Family Medicine 12/12/24 Asset Administrator Relationship Specialty Start Date End Date Wu Herrera MD [address] [place] [address] PCP - General Family Medicine 07/31/20 Frankie Varela APRN.ASSISTANT PROFESSOR OF SPANISH [address] [place] [address] Bindery Production Manager Family Medicine 12/12/24 Dee Roca PA-C [address] [place] [address] Bindery Production Manager Family Medicine 12/12/24 Asset Administrator Relationship Specialty Start Date End Date Wu Herrera MD [address] [place] [address] PCP - General Family Medicine 07/31/20 Frankie Varela, SCENERY BUILDER.ASSISTANT PROFESSOR OF SPANISH [address] [place] [address] Bindery Production Manager Family Medicine 06/18/24 11/27/24 Dee Roca PA-C [address] [place] [address] Bindery Production Manager Family Medicine 06/18/24 12/11/24 Frankie Varela APRN.ASSISTANT PROFESSOR OF SPANISH [address] [place] [address] Bindery Production Manager Family Medicine 12/12/24 Dee Roca PA-C [address] [place] [address] Bindery Production Manager Family Medicine 12/12/24 Asset Administrator Relationship Specialty Start Date End Date Wu Herrera MD [address] [place] [address] PCP - General Family Medicine 07/31/20 Frankie Varela, YOANA.ASSISTANT PROFESSOR OF SPANISH [address] [place] [address] Bindery Production Manager Family Medicine 12/12/24 Dee Roca PA-C [address] [place] [address] Bindery Production Manager Family Medicine 12/12/24 Asset Administrator Relationship Specialty Start Date End Date Wu Herrera MD [address] [place] [address] PCP - General Family Medicine 07/31/20 Frankie Varela, SCENERY BUILDER.ASSISTANT PROFESSOR OF SPANISH [address] [place] [address] Bindery Production Manager Family Medicine 12/12/24 Dee Roca PA-C [address] [place] [address] Bindery Production Manager Family Medicine 12/12/24 Asset Administrator Relationship Specialty Start Date End Date Wu Herrera MD [address] [place] [address] PCP - General Family Medicine 07/31/20 Frankie Varela, SCENERY BUILDER.ASSISTANT PROFESSOR OF SPANISH [address] [place] [address] Bindery Production Manager Family Medicine 12/12/24 Dee Roca PA-C [address] [place] [address] [facility] Family Medicine 12/12/24 Asset Administrator Relationship Specialty Start Date End Date Wu Herrera MD [address] [place] [address] PCP - General Family Medicine 07/31/20 Frankie Varela APRN.ASSISTANT PROFESSOR OF SPANISH [address] [place] [address] Bindery Production Manager Family Medicine 12/12/24 Dee Roca PA-C [address] [place] [address] [facility] Production [facility] Medicine 12/12/24 Asset Administrator Relationship Specialty Start Date End Date Wu Herrera MD [address] [place] [address] PCP - General Family Medicine 07/31/20 Frankie Varela APRN.ASSISTANT PROFESSOR OF SPANISH [address] [place] [address] Bindery Production Manager Family Medicine 12/12/24 Dee Roca PA-C [address] [place] [address] Bindery Production Manager Family Medicine 12/12/24 Asset Administrator Relationship Specialty Start Date End Date Wu Herrera MD [address] [place] [address] PCP - General Family Medicine 07/31/20 Frankie Varela APRN.ASSISTANT PROFESSOR OF SPANISH [address] [place] [address] Bindery Production Manager Family Medicine 12/12/24 Dee Roca PA-C [address] [place] [address] Bindery Production Manager Family Medicine 12/12/24 Asset Administrator Relationship Specialty Start Date End Date Wu Herrera MD [address] [place] [address] PCP - General Family Medicine 07/31/20 Frankie Varela, YOANA.ASSISTANT PROFESSOR OF SPANISH [address] [place] [address] Bindery Production Manager Family Medicine 12/12/24 Dee Roca PA-C [address] [place] [address] Bindery Production Manager Family Medicine 12/12/24 Asset Administrator Relationship Specialty Start Date End Date Wu Herrera MD [address] [place] [address] PCP - General Family Medicine 07/31/20 Frankie Varela, SCENERY BUILDER.ASSISTANT PROFESSOR OF SPANISH [address] [place] [address] Bindery Production Manager Family Medicine 12/12/24 Dee Roca PA-C [address] [place] [address] Bindery Production Manager Family Medicine 12/12/24 Asset Administrator Relationship Specialty Start Date End Date Wu Herrera MD [address] [place] [address] PCP - General Family Medicine 07/31/20 Frankie Varela, YOANA.ASSISTANT PROFESSOR OF SPANISH [address] [place] [address] Bindery Production Manager Family Medicine 12/12/24 Dee Roca PA-C [address] [place] [address] Bindery Production Manager Family [facility] 12/12/24 Asset Administrator Relationship Specialty Start Date End Date Wu Herrera MD [address] [place] [address] PCP - General Family Medicine 07/31/20 Frankie Varela, SCENERY BUILDER.ASSISTANT PROFESSOR OF SPANISH [address] [place] [address] Bindery Production Manager Family Medicine 12/12/24 Dee Roca PA-C [address] [place] [address] [facility] Production [facility] Medicine 12/12/24 Asset Administrator Relationship Specialty Start Date End Date Wu Herrera MD [address] [place] [address] PCP - General Family Medicine 07/31/20 Frankie Varela, SCENERY BUILDER.ASSISTANT PROFESSOR OF SPANISH [address] [place] [address] Bindery Production Manager Family Medicine 06/18/24 11/27/24 Dee Roca PA-C [address] [place] [address] Bindery Production Manager Family Medicine 06/18/24 12/11/24 Frankie Varela, YOANA.ASSISTANT PROFESSOR OF SPANISH [address] [facility] [place] [address] Bindery Production Manager Family Medicine 12/12/24 Dee Roca PA-C [address] [place] [address] Bindery Production Manager Family Medicine 12/12/24 Asset Administrator Relationship Specialty Start Date End Date Wu Herrera MD [address] [place] [address] PCP - General Family Medicine 07/31/20 Frankie Varela, YOANA.ASSISTANT PROFESSOR OF SPANISH [address] [place] [address] Bindery Production Manager Family Medicine 12/12/24 Dee Roca PA-C [address] [place] [address] Bindery Production Manager Family Medicine 12/12/24 Asset Administrator Relationship Specialty Start Date End Date Wu Herrera MD [address] [place] [address] PCP - General Family Medicine 07/31/20 Frankie Varela, SCENERY BUILDER.ASSISTANT PROFESSOR OF SPANISH [address] [facility] [place] [address] Bindery Production Manager Family Medicine 12/12/24 Dee Roca PA-C [address] [place] [address] Bindery Production Manager Family Medicine 12/12/24 ProviderPerlita MD B[employer] Production Manager 01/27/25 02/09/25 Asset Administrator Relationship Specialty Start Date End Date Wu Herrera MD [address] [place] [address] PCP - General Family Medicine 07/31/20 Frankie Varela, YOANA.ASSISTANT PROFESSOR OF SPANISH [address] [facility] [place] [address] Bindery Production Manager Family Medicine 12/12/24 Dee Roca PA-C [address] [place] [address] Bindery Production Manager Family Medicine 12/12/24 ProviderPerlita MD Bindery Production Manager 01/27/25 02/09/25 Asset Administrator Relationship Specialty Start Date End Date Wu Herrera MD [address] [place] [address] PCP - General Family Medicine 07/31/20 Frankie Varela, SCENERY BUILDER.ASSISTANT PROFESSOR OF SPANISH [address] [facility] [place] [address] Bindery Production Manager Family Medicine 12/12/24 Dee Roca PA-C [address] [place] [address] Bindery Production Manager Family Medicine 12/12/24 Asset Administrator Relationship Specialty Start Date End Date uW Herrera MD [address] [place] [address] PCP - General Family Medicine 07/31/20 Frankie Varela, SCENERY BUILDER.ASSISTANT PROFESSOR OF SPANISH [address] [facility] [place] [address] Bindery Production Manager Family Medicine 12/12/24 Dee Roca PA-C [address] [place] [address] Bindery Production Manager Family Medicine 12/12/24 Perlita Berry MD Bindery Production Manager 01/27/25 02/09/25 Asset Administrator Relationship Specialty Start Date End Date Wu Herrera MD [address] [place] [address] PCP - General Family Medicine 07/31/20 Frankie Varela APRN.ASSISTANT PROFESSOR OF SPANISH [address] [place] [id number] Bindery Production Manager Family Medicine 12/12/24 Dee Roca PA-C [address] [place] [address] Bindery Production Manager Family Medicine 12/12/24 Asset Administrator Relationship Specialty Start Date End Date Wu Herrera MD [facility] [place] [address] PCP - General Family Medicine 07/31/20 Frankie Varela, SCENERY BUILDER.ASSISTANT PROFESSOR OF SPANISH [address] [place] [id number] Bindery Production Manager Family Medicine 12/12/24 Dee Roca PA-C [address] [place] [address] Bindery Production Manager Family Medicine 12/12/24 Asset Administrator Relationship Specialty Start Date End Date Wu Herrera MD [address] [place] [address] PCP - General Family Medicine 07/31/20 Frankie Varela, SCENERY BUILDER.ASSISTANT PROFESSOR OF SPANISH [address] [place] [address] Bindery Production Manager Family Medicine 12/12/24 Dee Roca PA-C [address] [place] [address] Bindery Production Manager Family [facility] 12/12/24 Asset Administrator Relationship Specialty Start Date End Date Wu Herrera MD [address] [place] [address] PCP - General Family Medicine 07/31/20 Frankie Varela, YOANA.ASSISTANT PROFESSOR OF SPANISH [address] [place] [address] Bindery Production Manager Family Medicine 12/12/24 Dee Roca PA-C [address] [place] [address] Bindery Production Manager [facility] 12/12/24 Asset Administrator Relationship Specialty Start Date End Date Wu Herrera MD [address] [place] [address] PCP - General Family Medicine 07/31/20 Frankie Varela, SCENERY BUILDER.ASSISTANT PROFESSOR OF SPANISH [address] [place] [address] Bindery Production Manager [facility] Medicine 12/12/24 Dee Roca PA-C [address] [place] [address] [facility] 12/12/24 Care Team (unrecognized sect ion and content) Care Team Personnel Name: WU HERRERA MD Member Role: Primary Care Physician Address: Address: [address] [place] [address]- [place] Care Team Related Persons Name: JEANNETTE PEREZ Name: MCKENNA BOYD FOR RECORDS PERTAINING TO PATIENTS WHO ARE [...] BE BASED ON THE PRIMARY CLINICAL RECORDS. [employer] provides no warranty or guarantee of the accuracy or completeness of information in this document.
--- NOTE | 2025-05-23 20:32 | EKG12_ITS ---
Test Reason : DYSRHYTHMIA Blood Pressure : */* mmHG Vent. Rate : 66 BPM Atrial Rate : 66 BPM P-R Int : 122 ms QRS Dur : 84 ms QT Int : 390 ms P-R-T Axes : 46 61 50 degrees QTcB Int : 408 ms Normal sinus rhythm with sinus arrhythmia Normal ECG Confirmed by Martínez Little ([id number]), index editor YUDY ROSEN ([id number]) on 05/24/2025 10:36:52 AM Referred By: ER Confirmed By: Martínez Little
--- NOTE | 2025-05-23 20:41 | RAD_ITS ---
PROCEDURE: CHEST PA AND LATERAL 05/23/2025 REASON FOR EXAM: CHEST PAIN TECHNIQUE: Procedure Code: RADCXR Modality: DX Procedure: CHEST PA AND LATERAL COMPARISON: 07/21/23 FINDINGS: No focal consolidation. No pleural effusion or pneumothorax. Cardiac silhouette is within normal limits. No acute fractures. RAD/Chest PA and Lateral IMPRESSION: No focal consolidations. Reading Location: [facility]
[2025-05-23 20:50] LABS: Hematocrit 40.2 % (37-47); Hemoglobin 13.4 g/dL (12.0-15.0); Immature Granulocytes Count 0.010 X10^3/uL (0.0-0.0); Mean Corp Hgb Conc 33.3 g/dL (32-36); Mean Corpuscular Volume 96.4 fL (81-99); Mean Platelet Vol. 10.1 fl (6.2-12.0); NRBC Flagged by Analyzer 0 % (0-5); Platelet Count 220 K/mm3 (150-450); RBC Distribution Width CV 12.4 % (11.6-14.6); RBC Distribution Width SD 43.9 fl (35.1-43.9); Red Blood Count 4.17 M/mm3 (4.2-5.4); White Blood Count 5.8 K/mm3 (4.4-11.0)
[2025-05-23 21:07] LABS: Troponin T High Sensitivity < 6 ng/L (<=14)
[2025-05-23 21:11] LABS: Anion Gap 9 (5-15); BUN 12 mg/dL (4-19); BUN/Creat Ratio 18.4 RATIO (10-20); Calcium,Total 9.5 mg/dL (7.6-11.0); Carbon Dioxide 25.1 mmol/L (21.0-32.0); Chloride 105 mmol/L (98-108); Estimated Creatinine Clearance 115.86 ml/min (50-250); Glucose 112 mg/dL (70-99); Potassium 3.9 mmol/L (3.3-5.1)
[2025-05-23 21:28] LABS: Internal QC Validated? YES +Cl - CLEAR BKGD; Pregnancy, Urine Negative Negative; Record Kit Lot#,Urine Preg 0000980607
[2025-05-23 21:33] VITALS: BP 102/64; PULSE 70; RESP 16; O2SAT 100
[2025-05-23 22:21] VITALS: BP 98/65; PULSE 61; RESP 16; TEMP 36.8; O2SAT 100
--- NOTE | 2025-05-24 00:18 | EX.ED.DYSGE1 ---
HPI History of Present Illness Chief Complaint: General Illness Narrative Narrative: Patient is a 24-year-old female presenting to the emergency department for multiple complaints including left-sided chest pain that started today, a migraine and reports of hypertension earlier today. Patient has a past medical history as seen in her chart. Patient states that she is in current physical therapy for low back pain and states that before she went she developed left-sided chest pain. States that it feels similar to episodes of exercise-induced asthma/chest pain that she had in childhood. States that she did not exercise today though before she started having the pain. She denies any shortness of breath. She denies fever, chills, cough, congestion, sore throat. She denies any abdominal pain, nausea, vomiting, diarrhea. Denies any lower extremity edema. Denies any history of DVT or PE. Denies any recent travel, hospitalizations or surgeries. Denies any use of OCPs or hormone therapy. She also reports that she developed a migraine today that feels like her migraines in the past. Reports that it came on gradually. She denies any head trauma or falls. Denies any fevers or neck pain. Denies any focal neurologic deficits. [facility] Medical History Facet arthropathy Insomnia Chronic gastritis Former smoker depression History of anorexia nervosa Vitamin B12 deficiency Abdominal bloating Constipation History of marijuana use Generalized anxiety disorder Bipolar 1 disorder, depressed, moderate PTSD (post-traumatic stress disorder) Tobacco abuse Osteopenia GERD (gastroesophageal reflux disease) Asthma Migraines (~12/08/23) Alcohol withdrawal Desire for detoxification History of cocaine use Alcohol use disorder Home Medications Medication Instructions Recorded Last Taken Type Compression Stockings Knee High #1 ea 09/06/24 Unknown Rx valacyclovir 500 mg tablet 500 mg PO QDAY 11/21/24 Unknown History baclofen 10 mg tablet 10 mg PO TID PRN muscle spasm/pain 04/06/25 Unknown Rx #30 tabs lorazepam 0.5 mg tablet 0.5 mg PO QDAY PRN anxiety #30 tabs 04/10/25 Unknown Rx Allergy/AdvReac Type Severity Reaction Status Date / Time Quinolones Allergy PT UNSURE Verified 05/23/25 19:36 OF REACTION Family History Other Alcoholism Anxiety Arthritis Asthma COPD (chronic obstructive pulmonary disease) Depression High cholesterol Schizophrenia Surgical History S/P cholecystectomy History of surgery Social History housing: apartment Smoking Status: Current every day smoker tobacco type: e-cigarettes alcohol intake: current alcohol intake frequency: a few times a month Previous attempts at quittin substance use type: does not use ROS ROS ED ROS Narrative See HPI EXAM Physical Exam Narrative Exam Narrative: Vital signs: Reviewed General: Alert and oriented x 3. No acute distress HEENT: Head is normocephalic and atraumatic, sinuses nontender, pupils equal round and reactive. Nares are patent. Oropharynx and throat exams normal. Neck: Supple without lymphadenopathy nontender Cardiovascular: Regular rate and rhythm, no murmurs. No rubs or gallops. Normal S1 and S2 Respiratory: Clear to auscultation bilaterally. No wheezes, rales, rhonchi Chest: Left-sided chest wall has reproducible tenderness to palpation. There is no ecchymosis, crepitus or erythema of the chest. Abdominal: Soft and nontender. Normal bowel sounds. No guarding or rebound. Nonsurgical abdomen Extremities: No lower extremity edema. No posterior calf tenderness to palpation. No tenderness. No bruising. Normal range of motion. Normal sensation. Skin: No rash or redness. Neurological: Cranial nerves II through XII are grossly intact. Normal strength and sensation. Normal cerebellar function The rest of the physical exam is unremarkable Const Vital Signs: 05/23/25 19:34 05/23/25 19:44 05/23/25 19:46 Temperature 98.2 F Temperature Source Oral Pulse Rate 70 Respiratory Rate 16 Respiratory Effort Normal Normal Respiratory Pattern Normal Blood Pressure 129/98 H Blood Pressure Mean 108 Pulse Ox 100 Oxygen Delivery Method Room Air 05/23/25 21:33 05/23/25 22:21 Temperature 98.2 F Temperature Source Pulse Rate 70 61 Respiratory Rate 16 16 Respiratory Effort Respiratory Pattern Blood Pressure 102/64 98/65 Blood Pressure Mean 76 76 Pulse Ox 100 100 Oxygen Delivery Method Room Air MDM MDM MDM Narrative Medical decision making narrative: Patient is a 24-year-old female presenting to the emergency department for left-sided chest pain, migraine and reported hypertension earlier today. Patient was seen and examined. Vitals are stable. Patient resting in bed comfortably no acute distress. Differential includes but is not limited to: Musculoskeletal, ACS, pneumonia, pneumothorax, PE less likely. Patient reports that her migraine feels similar to past, no focal neurologic deficits on exam. Did not start suddenly. Do not think it is a subarachnoid. No altered mental status or fever consistent with meningitis or encephalitis. Do not think she needs CT imaging of her brain at this time. Will give Toradol for symptomatic control both her likely musculoskeletal chest pain and migraine. In terms of her reported HTN, her BP is within normal limits here. EKG shows normal sinus rhythm with sinus arrhythmia. There is no ischemic changes noted. PERC negative. CBC with no leukocytosis and a normal hemoglobin. BMP with no significant normalities. Troponin is negative. Urine preg negative. Chest x-ray reviewed by myself, no opacities, pneumothorax or wide mediastinum noted. Radiology read in agreement. With the negative workup and reproducible chest pain on exam, may be costochondritis. Encouraged to take NSAIDs at home for symptomatic control. Updated patient on the negative workup. All questions answered. Patient discharged from the Emergency Department. I do not feel that the patient's evaluation reveals any acute reason for admission at this time. I instructed them to either follow-up with their primary care physician or promptly return to the Emergency Department for reevaluation should symptoms worsen or new symptoms develop. I explained what symptoms would indicate the need to return to the emergency department. Shared decision making was used. The patient voiced understanding of the treatment plan and is agreeable with it. Clinical impression Chest pain History & Record Review Discussion w/independent historian: Patient Lab Data Attestation: I reviewed the patient's lab results. Labs: Laboratory Results - last 24 hr 05/23/25 05/23/25 20:10 20:57 WBC 5.8 RBC 4.17 L Hgb 13.4 Hct 40.2 MCV 96.4 MCH 32.1 H MCHC 33.3 RDW Std Deviation 43.9 RDW Coeff of Reggie 12.4 Plt Count 220 MPV 10.1 Immature Gran % (Auto) 0.200 Neut % (Auto) 53.8 Lymph % (Auto) 35.0 [place] % (Auto) 8.9 Eos % (Auto) 1.2 Baso % (Auto) 0.9 Absolute Neuts (auto) 3.1 Absolute Lymphs (auto) 2.01 Nucleated RBC % 0 Sodium 139 Potassium 3.9 Chloride 105 Carbon Dioxide 25.1 Anion Gap 9 BUN 12 Creatinine 0.66 L Estim Creat Clear Calc 115.86 Est GFR (MDRD) Non-Af 126 BUN/Creatinine Ratio 18.4 Glucose 112 H Calcium 9.5 Troponin T High Sens < 6 Urine Test Negative Radiography Chest X-Ray - ED: 2 View, Read by ED Physician, Normal, No Acute Disease and No Infiltrates Diagnostic Testing: Clinical Impression(s) from Imaging Studies Chest X-Ray 05/23/25 20:41 IMPRESSION: No focal consolidations. Reading Location: [facility] Discharge Plan Triage Chief Complaint: General Illness ED Provider: Kaylin Patel Dx/Rx/DC Orders Clinical Impression: Chest pain Instructions: ED Chest Pain, Uncertain Cause Prescriptions: No Action valacyclovir 500 mg tablet 500 mg PO QDAY lorazepam 0.5 mg tablet 0.5 mg PO QDAY PRN (Reason: anxiety) Qty: 30 1RF (DME) Compression Stockings Knee High 20-30 mm HG See Rx Instructions .Route .MEDSUPPLY Qty: 1 0RF Rx Instructions: As directed baclofen 10 mg tablet 10 mg PO TID PRN (Reason: muscle spasm/pain) Qty: 30 0RF Primary Care Provider: Wu Herrera Referrals: Wu Herrera MD [Primary Care Provider, [facility]] - As soon as possible Activity Restrictions/Additional Instructions: Your evaluation in the Emergency Department did not reveal any acute reason for admission. However, I want to emphasize that you may be early in the course of a disease process or illness even if it is not present. For this reason you should follow-up within 24 hours for reevaluation with either your primary care physician or if necessary back here in the Emergency Department. You should return to the Emergency Department immediately if your symptoms worsen or new symptoms develop. Print Language: Estonian Disposition Disposition: Home, Self Care Discharge Date/Time: 05/23/25 22:36 D/C Safety Score for UGIB Assessment [place] Bleeding Score (GBS): Stratifies upper GI bleeding patients who are "low-risk" and candidates for outpatient management. Hemoglobin, BUN, Recent Vital Signs: Hgb 13.4 g/dL (12.0-15.0) 05/23/25 20:10 BUN 12 mg/dL (4-19) 05/23/25 20:10 Pulse Rate 61 Blood Pressure 98/65 Total Risk Score: 0 Score Interpretation: Score of 0: A GBS of 0 is a “Low Risk” GI bleed, and is highly sensitive (99.6% in a 2007 retrospective study) for predicting which patients did not require any “medical intervention”: blood transfusion, endoscopy, or surgery. This was confirmed in a 2009 [facility] study where patients with a score of 0 were actually discharged and had no GI bleeding mortality at 6 month followup Score above 0: A GBS greater than zero suggests a “High Risk” GI bleed that is likely to require “medical intervention”: transfusion, endoscopy, or surgery. A higher GBS also correlated with a higher likelihood of needing intervention Scores >/= 6 are associated with >50% risk of needing intervention D/C Safety Score for LGIB Assessment Assessment Tool: Readmission and adverse event risk in patients with acute lower GI bleeding. Age, in years: <40 Hemoglobin and Recent Vital Signs: Hgb 13.4 g/dL (12.0-15.0) 05/23/25 20:10 Pulse Rate 61 05/23/25 22:21 Blood Pressure 98/65 05/23/25 22:21 Probability of safe discharge: 99% Total Risk Score: 0 Score Interpretation: Probability Percentage of safe discharge (absence of rebleeding, blood transfusion, therapeutic intervention, 28 day readmission, or ) Score of 8 or below: Consider discharge, with appropriate precautions. Score of 9 or above: Discharge NOT recommended. Consider admission with further workup and resuscitation as necessary.
== END 2025-05-23 22:36 | disposition home or self-care (01) ==
PROVIDERS: Emergency Provider Student in an Organized Health Care Education/Training Program; PCP Family Medicine; Visit Provider Student in an Organized Health Care Education/Training Program
DX: R07.9 Chest pain, unspecified (principal); F17.290 Nicotine dependence, other tobacco product, uncomplicated
CPT/HCPCS: 71046; 80048; 81025; 84484; 85025; 93005; 96374; 99284; A4216

== ENCOUNTER → 2025-07-10 | Outpatient (CLI) | payer MEDICAID, SELFPAY ==
--- NOTE | 2025-07-10 13:25 | MRI_ITS ---
PROCEDURE: SPINE LUMBAR (ROUTINE) 07/10/2025 REASON FOR EXAM: PAIN X1 YEAR, RADICULOPATHY IN RIGHT GROIN TECHNIQUE: Procedure Code: MRISPL Modality: MR Procedure: SPINE LUMBAR (ROUTINE) COMPARISON: Radiographs dated 03/24/2025. FINDINGS: No acute fracture or subluxation. No significant disc narrowing. Disc desiccation is noted at L5-S1. The bone marrow signal is unremarkable. The conus medullaris appears unremarkable and terminates at the level of L1. L1-2 through L4-5: No significant thecal sac or neural foraminal narrowing. L5-S1: A 5 mm posterior central disc protrusion with associated annular tearing results in mild narrowing of the thecal sac to 8 mm (AP) and [id number] bilateral neural foraminal narrowing. The paraspinal soft tissues appear unremarkable. MRI/Spine Lumbar (Routine) IMPRESSION: Degenerative disc disease at L5-S1 resulting in mild thecal sac and mild-to-mod erate bilateral neural foraminal narrowing. Reading Location: [id number]
== END | disposition home or self-care (01) ==
LOC: MRI 13:20
PROVIDERS: PCP Family Medicine; Referring Provider Anesthesiology; Visit Provider Anesthesiology
DX: M54.16 Radiculopathy, lumbar region (principal); M54.50 Low back pain, unspecified
CPT/HCPCS: 72148